=== PATIENT | male | born 1955 | race Caucasian/White ===

== ENCOUNTER → 2018-05-03 13:03 | Outpatient (CLI) | payer BC, SELFPAY ==
--- NOTE | 2018-05-03 13:07 | STE_ITS ---
Reason For Study: CAD/ASHD Stress Results Protocol: Stress Echocardiogram Maximum Predicted HR: 157 bpm Target HR: 133 bpm% Maximum Pr edicted HR: 103 % DurationHeart Rate Stage (mm:ss) (bpm) BPCom ment BASELINE 90 148/80 FAROOQ PROTOCOL- STAGE 1 3:00 13 1 158/82 FAROOQ PROTOCOL- STAGE 2 3:00 15 1 162/84 FAROOQ PROTOCOL- STAGE 3 1:05 16 2 170/94SL SOB, LEG FATIGUE RECOVERY 99 150/80 Stress Duration: 7:05 mm:ss Maximum Stress HR: 162 bpm Baseline Echocardiogram Findings The estimated ejection fraction is 65 %. Stress Echo Wall motion Data Resting WMIntermediate WMStress WM Resting Wall Motion Wall Motion Stress No regional wall motion No regional wall motion abnormalities noted. abnormalities noted. EKG Data The baseline ECG displays normal sinus rhythm. The patient exercised according to the regular Farooq protocol for a total duration of 7:05. The maximum heart rate attained was 162 beats per minute. This was 103% of maximum predicted heart rate. The patient exercised into stage 3 of the Farooq protocol. During stress, there were no ST or T wave changes noted to suggest ischemia. No clinical angina was noted. Interpretation Summary The estimated ejection fraction is 65 %. Normal, adequate, treadmill echocardiogram. Negative for ischemia by EKG and echocardiographic criteria. No anginal symptoms noted. Rare PVCs noted during exercise and into recovery. Average exercise capacity for age. Test terminated due to leg fatigue. Final LVEF is 75%. No complications. Ordering Physician: Praveen Escobar Referring Physician: Praveen Escobar Performed By: Vernell Infante, SAMIA, RVT
== END ==
PROVIDERS: Family Provider Internal Medicine; PCP Internal Medicine; Visit Provider Internal Medicine Cardiovascular Disease
DX: I25.10 Atherosclerotic heart disease of native coronary artery without angina pectoris (principal); Z95.1 Presence of aortocoronary bypass graft
CPT/HCPCS: 93017; 93350

== ENCOUNTER → 2018-05-04 13:49 | Outpatient (CLI) | payer BC, SELFPAY ==
--- NOTE | 2018-05-04 13:50 | ECHOD_ITS ---
Reason For Study: CAD/ASHD Procedure This was a 2D Doppler, Color Flow transthoracic echocardiogram. Exam performed in department. Left Ventricle Normal size and thickness. The estimated ejection fraction is 65 %. Stage 1 diastolic dysfunction. No regional wall motion abnormalities noted. Right Ventricle Normal size and thickness. Normal systolic function. Atria Normal left atrium. Normal right atrium. Normal atrial septum. Mitral Valve The mitral valve is structurally normal. No prolapse or stenosis seen. Mild mitral annular calcification extending into the posterior leaflet. Tricuspid Valve Normal tricuspid valve. Mild (1+) tricuspid valve insufficiency. Right ventricular systolic pressure estimated to be 32 mmHg. Aortic Valve Trisinus/trileaflet aortic valve. Normal aortic valve. Pulmonic Valve Normal pulmonic valve. Great Vessels Normal aortic root. Normal arch. Normal inferior vena cava. Inferior vena cava collapse with sniff. Pericardium/Pleural No pericardial effusion. MMode/2D Measurements & Calculations LVIDd: 4.9 cm IVSd: 1.2 cm Ao root diam: 3.1 cm LVIDs: 3.3 cm LVPWd: 1.2 cm LA dimension: 4.0 cm RVDd: 3.5 cm FS: 32.9 % LAV(MOD-bp): 48.5 ml LA A4 area: 15.2 cm2 RA A4 area: 17.5 cm2 LAV(MOD-bp) Indexed: 25.8 ml/m2 LAV(MOD-sp2): 57.1 ml LAV(MOD-sp4): 39.6 ml Doppler Measurements & Calculations MV E max lito: 73.9 cm/sec Lat Peak E' Lito: 8.8 cm/sec Med Peak E' Lito: 8.4 cm/sec MV A max lito: 98.0 cm/sec E/E' lat: 8.4 E/E' med: 8.8 MV E/A: 0.75 Ao V2 max: 137.2 cm/sec LV V1 max: 98.1 cm/sec PA V2 max: 116.9 cm/sec Ao max P.5 mmHg LV V1 max P.8 mmHg TR max lito: 245.9 cm/sec TR max P.3 mmHg Interpretation Summary The estimated ejection fraction is 65 %. Stage 1 diastolic dysfunction. Mild (1+) tricuspid valve insufficiency. Right ventricular systolic pressure estimated to be 32 mmHg. There is no comparison study available. Ordering Physician: Praveen Escobar Referring Physician: George Vázquez M.D. Performed By: Vernell Infante RDCS, RVT
== END ==
PROVIDERS: Family Provider Internal Medicine; PCP Internal Medicine; Visit Provider Internal Medicine Cardiovascular Disease
DX: I25.810 Atherosclerosis of coronary artery bypass graft(s) without angina pectoris (principal); I25.10 Atherosclerotic heart disease of native coronary artery without angina pectoris; Z95.5 Presence of coronary angioplasty implant and graft; Z95.1 Presence of aortocoronary bypass graft
CPT/HCPCS: 93306

== ENCOUNTER → 2018-12-24 07:06 | Outpatient (CLI) | payer BC, SELFPAY ==
[2018-12-24 09:05] LABS: AST(SGOT) 20 U/L (15-37); Alanine Aminotransfer ALT/SGPT 30 U/L (16-61); Albumin, Serum 3.6 g/dL (3.2-5.0); Alkaline Phosphatase 85 U/L (45-117); Bilirubin, Direct 0.17 mg/dL (0.00-0.30); Cholesterol 152 mg/dL (200); Globulin 3.8 g/dL (2.2-4.2); High Density Lipoprotein 43 mg/dL; Protein, Total 7.4 g/dL (6.4-8.2); Triglycerides 136 mg/dL; Very Low Density Lipoprotein 27 mg/dL (5-40)
== END ==
PROVIDERS: Family Provider Internal Medicine; PCP Internal Medicine; Referring Provider Internal Medicine Cardiovascular Disease; Visit Provider Internal Medicine Cardiovascular Disease
DX: I25.810 Atherosclerosis of coronary artery bypass graft(s) without angina pectoris (principal); Z95.1 Presence of aortocoronary bypass graft; Z95.5 Presence of coronary angioplasty implant and graft
CPT/HCPCS: 36415; 80061; 80076

== ENCOUNTER → 2019-03-05 | Outpatient (CLI) | payer BC, SELFPAY ==
[2019-03-05 09:00] LABS: AST(SGOT) 31 U/L (15-37); Alanine Aminotransfer ALT/SGPT 36 U/L (16-61); Albumin, Serum 4.1 g/dL (3.2-5.0); Alkaline Phosphatase 70 U/L (45-117); Bilirubin, Direct 0.12 mg/dL (0.00-0.30); Cholesterol 140 mg/dL (200); Globulin 3.2 g/dL (2.2-4.2); High Density Lipoprotein 45 mg/dL; Protein, Total 7.3 g/dL (6.4-8.2); Triglycerides 175 mg/dL; Very Low Density Lipoprotein 35 mg/dL (5-40)
== END | disposition home or self-care (01) ==
PROVIDERS: Family Provider Internal Medicine; PCP Internal Medicine; Referring Provider Nurse Practitioner Family; Visit Provider Nurse Practitioner Family
DX: E78.2 Mixed hyperlipidemia (principal); I25.10 Atherosclerotic heart disease of native coronary artery without angina pectoris
CPT/HCPCS: 36415; 80061; 80076

== ENCOUNTER → 2019-06-14 | Outpatient (CLI) | payer MEDICARE, OTHER, SELFPAY ==
[2019-03-07 15:43] VITALS: BMI 27.1
--- NOTE | 2019-06-14 12:37 | STE_ITS ---
Reason For Study: DYSPNEA/SOB Stress Results Protocol: Farooq Protocol Maximum Predicted HR: 156 bpm Target HR: 133 bpm % Maximum Predicted HR: 103 % DurationHeart Rate Stage (mm:ss) (bpm) BP Comment BASELINE 74 138/82 STAGE 1 3:00 109 160/72 STAGE 2 3:00 131 172/84 STAGE 3 1:30 160 / INCREASED SOB WITH NO CHEST PAIN Stress Duration: 7:30 mm:ss Maximum Stress HR: 160 bpm Baseline Echocardiogram Findings The estimated ejection fraction is 65 %. Stress Echo Wall motion Data Resting WM Intermediate WM Stress WM Resting Wall Motion Wall Motion Stress No regional wall motion No regional wall motion abnormalities noted. abnormalities noted. EKG Data The baseline ECG displays normal sinus rhythm. The patient exercised according to the regular Farooq protocol for a total duration of 7:30. The maximum heart rate attained was 160 beats per minute. This was 102% of maximum predicted heart rate. The patient exercised into stage 3 of the Farooq protocol. During stress, there were no ST or T wave changes noted to suggest ischemia. No clinical angina was noted. Interpretation Summary The estimated ejection fraction is 65 %. Normal, adequate, treadmill echocardiogram. Negative for ischemia by EKG and echocardiographic criteria. No anginal symptoms noted. Rare PVCs, ventricular couplets, and rate dependent right bundle branch block at peak exercise and into recovery. Average exercise capacity for age. Final LVEF is 75%. Test terminated due to the attainment target heart rate and dyspnea. No complications. Ordering Physician: Praveen Escobar Referring Physician: Praveen Escobar Performed By: Sharon Saeed, SAMIA, RVT
== END | disposition home or self-care (01) ==
LOC: CVS 12:36
PROVIDERS: Family Provider Internal Medicine; PCP Internal Medicine; Referring Provider Internal Medicine Cardiovascular Disease; Visit Provider Internal Medicine Cardiovascular Disease
DX: I25.810 Atherosclerosis of coronary artery bypass graft(s) without angina pectoris (principal); I10 Essential (primary) hypertension; Z95.1 Presence of aortocoronary bypass graft; Z95.5 Presence of coronary angioplasty implant and graft; F17.200 Nicotine dependence, unspecified, uncomplicated
CPT/HCPCS: 93017; 93350

== ENCOUNTER → 2020-06-10 10:15 | Outpatient (CLI) | payer MEDICARE, OTHER, SELFPAY ==
[2020-03-30 08:50] VITALS: BMI 27.3
--- NOTE | 2020-06-10 10:16 | STEWCON_ITS ---
Reason For Study: Dyspnea; CAD Stress Results Protocol: Dobutamine Stress Echo With Definity Maximum Predicted HR: 155 bpm Target HR: 132 bpm % Maximum Predicted HR: 85 % DurationHeart Rate Stage (mm:ss) (bpm) BP Comment Baseline 101 146/92No Chest Pain; 5 ML Diluted Definity DSE 10 MCG 4:51 120 139/85No Chest Pain DSE 20 MCG 2:39 131 136/80No Chest Pain Recovery 105 130/94No Chest Pain Stress Duration: 7:30 mm:ss Maximum Stress HR: 131 bpm METS: 1 Baseline Echocardiogram Findings The estimated ejection fraction is 65 %. Stress Echo Wall motion Data Resting WM Intermediate WM Stress WM Resting Wall Motion Wall Motion Stress No regional wall motion No regional wall motion abnormalities noted. abnormalities noted. EKG Data The baseline ECG displays normal sinus rhythm. The patient was titrated from 10 mcg to a maximum of 20 mcg of dobutamine during the stress. The maximum heart rate attained was 7:30 beats per minute. This was 97% of maximum predicted heart rate. During dobutamine infusion, there were no ST or T wave changes noted to suggest ischemia. No clinical angina was noted. Interpretation Summary The estimated ejection fraction is 65 %. Normal, adequate, dobutamine echocardiogram. Negative for ischemia by EKG and echocardiographic criteria. No anginal symptoms noted. Rare PVC, ventricular couplets and a ventricular triplet during infusion which is a nonspecific finding. Test terminated due to the attainment of target heart rate. Final LVEF is 75%. Appropriate blood pressure response to dobutamine. Decrease sensitivity due to poor echo windows requiring Definity agent. Patient tolerated procedure well. The study was technically difficult. Contrast injection was performed. Ordering Physician: Praveen Escobar Referring Physician: George Vázquez Performed By: Jennifer Mg, RDCS, RVT
== END ==
PROVIDERS: PCP Internal Medicine; Referring Provider Internal Medicine Cardiovascular Disease; Visit Provider Internal Medicine Cardiovascular Disease
DX: I25.10 Atherosclerotic heart disease of native coronary artery without angina pectoris (principal); J44.9 Chronic obstructive pulmonary disease, unspecified; R06.00 Dyspnea, unspecified; Z95.1 Presence of aortocoronary bypass graft; Z95.5 Presence of coronary angioplasty implant and graft
CPT/HCPCS: 93017; 93350; J7040; Q9957; A4216; C8928

== ENCOUNTER → 2020-07-16 20:29 | Outpatient (CLI) | payer MEDICARE, OTHER, SELFPAY ==
[2020-07-07 10:24] VITALS: BMI 27.7
== END ==
PROVIDERS: PCP Internal Medicine; Referring Provider Internal Medicine Critical Care Medicine; Visit Provider Internal Medicine Critical Care Medicine
DX: G47.10 Hypersomnia, unspecified (principal)
CPT/HCPCS: 95810

== ENCOUNTER → 2020-08-13 10:33 | Outpatient (CLI) | payer MEDICARE, OTHER, SELFPAY ==
[2020-07-07 10:24] VITALS: BMI 27.7
--- NOTE | 2020-08-13 15:46 | PFTCOMP ---
COMPLETE PULMONARY FUNCTION TEST INTERPRETATION Brief HPI: Patient is a 65 year old male, currently under the care of myself, who presents to [facility] for complete pulmonary function tests secondary to diagnosis of COPD. Respiratory therapist reports good effort and reproducible results. Interpretation: Forced expiration spirometry shows a severe large airways obstructive ventilatory defect with an FEV1 of 41% predicted. There is a significant bronchodilator response in FVC by strict ATS criteria. Spirograms are of good quality and plateau slowly, indicating slowly emptying areas of the lungs. The respiratory flow volume loop shows decreased expiratory flow rates at all lung volumes consistent with airway obstruction. Lung volumes by body plethysmography show a normal total lung capacity at 6.59 L, 113% predicted. FRC and RV are elevated out of proportion. Lung volume measurements are consistent with hyperinflation and air-trapping. Diffusion capacity by carbon monoxide is normal at 77% predicted. The airway resistance is elevated. No previous pulmonary function tests were available for review. Impression: Partially reversible severe large airways obstructive ventilatory defect resulting in air trapping with hyperinflation
== END ==
PROVIDERS: PCP Internal Medicine; Referring Provider Internal Medicine Critical Care Medicine; Visit Provider Internal Medicine Critical Care Medicine
DX: J44.9 Chronic obstructive pulmonary disease, unspecified (principal)
CPT/HCPCS: 94060; 94726; 94729

== ENCOUNTER → 2020-08-17 12:17 | Outpatient (CLI) | payer MEDICARE, OTHER, SELFPAY ==
[2020-07-07 10:24] VITALS: BMI 27.7
[2020-08-17 13:37] VITALS: PULSE 117; PULSE 78; PULSE 89; PULSE 91; PULSE 93; PULSE 95; PULSE 97; O2SAT 88; O2SAT 89; O2SAT 92; O2SAT 93; O2SAT 94
--- NOTE | 2020-08-17 13:41 | CPS ---
Patient started test on RA but at the 2 min lakeisha patient's SpO2 was 88% on RA. Patient was placed on 2L NC for the rest of the testing. Patient is prescribed 2L at night but does not wear it. Patient did not want to get setup on home O2 until he speaks with . notified of this. Vidhya LUNA
--- NOTE | 2020-08-18 10:29 | PCM.PSN.6M ---
PSN 6 Minute Walk Test - 6 Minute Walk Test 6 Minute Walk Test: 6 Minute Walk Test PSN:6-Minute Walk Test Start: 08/17/20 13:37 Freq: Status: Active Protocol: RESP.6MINW Document 08/17/20 13:37 JLA (Rec: 08/17/20 13:43 JLA [id number]) 6 Minute Walk Test Date Performed 08/17/20 Time Performed 12:30 Height 5 ft 7 in Weight: 170 lb Weight in Pounds 170.[address]: Farooq Hall Assistive device used: None Pre-test Oxygen Delivery Method Room Air Pulse Ox (%) 92 Pulse Rate (60-100 beats/min) 78 Dyspnea Emily Scale (0-10) 0 Exertion Emily Scale (6-20) 6 1st minute Oxygen Delivery Method Room Air Pulse Ox (%) 89 Pulse Rate (60-100 beats/min) 117 H 2nd minute Oxygen Delivery Method Room Air Pulse Ox (%) 88 Pulse Rate (60-100 beats/min) 95 Dyspnea Emily Scale (0-10) 0 Exertion Emily Scale (6-20) 11 3rd minute Oxygen Flow Rate (L/min) (L/min) 2 Oxygen Delivery Method Nasal Cannula Pulse Ox (%) 92 Pulse Rate (60-100 beats/min) 91 4th minute Oxygen Flow Rate (L/min) (L/min) 2 Oxygen Delivery Method Nasal Cannula Pulse Ox (%) 92 Pulse Rate (60-100 beats/min) 93 5th minute Oxygen Flow Rate (L/min) (L/min) 2 Oxygen Delivery Method Nasal Cannula Pulse Ox (%) 93 Pulse Rate (60-100 beats/min) 97 6th minute Oxygen Flow Rate (L/min) (L/min) 2 Oxygen Delivery Method Nasal Cannula Pulse Ox (%) 92 Pulse Rate (60-100 beats/min) 95 Dyspnea Emily Scale (0-10) 0 Exertion Emily Scale (6-20) 11 Post-test Oxygen Flow Rate (L/min) (L/min) 2 Oxygen Delivery Method Nasal Cannula Pulse Ox (%) 94 Pulse Rate (60-100 beats/min) 89 Full Laps Walked 13 Partial Lap, Number of Tiles Walked 0 Total Distance Walked (ft) 767 08/17/20 13:41 Cardiopulmonary Services by Mayra Leal Patient started test on RA but at the 2 min lakeisha patient's SpO2 was 88% on RA. Patient was placed on 2L NC for the rest of the testing. Patient is prescribed 2L at night but does not wear it. Patient did not want to get setup on home O2 until he speaks with . notified of this. Vidhya LUNA Initialized on 08/17/20 13:41 - END OF NOTE - Interpretation Interpretation: The patient ambulated 767 feet over the course of 6 minutes beginning on room air without assistive devices or breaks. Pretesting oxygen saturation was noted to be 92% on room air. With ambulation, the estephanie oxygen saturation was 88%. 2 L of oxygen was applied, and the patient was able to complete the remainder of the test while maintaining appropriate oxygen saturations. It was noted that the patient refused to be set up with supplemental home oxygen until he was seen in follow-up by Dr. Hall. - Recommendations Recommendations: 2 L/min of supplemental oxygen should be utilized with exertion.
== END ==
PROVIDERS: PCP Internal Medicine; Referring Provider Internal Medicine Critical Care Medicine; Visit Provider Internal Medicine Critical Care Medicine
DX: J44.9 Chronic obstructive pulmonary disease, unspecified (principal)
CPT/HCPCS: 94618

== ENCOUNTER → 2020-08-20 20:10 | Outpatient (CLI) | payer MEDICARE, OTHER, SELFPAY ==
[2020-07-07 10:24] VITALS: BMI 27.7
== END ==
PROVIDERS: PCP Internal Medicine; Visit Provider Nurse Practitioner Acute Care
DX: G47.33 Obstructive sleep apnea (adult) (pediatric) (principal)
CPT/HCPCS: 95810

== ENCOUNTER → 2020-10-15 07:12 | Outpatient (CLI) | payer MEDICARE, OTHER, SELFPAY ==
[2020-10-05 15:25] VITALS: BMI 28.6
[2020-10-15 08:10] LABS: Absolute Lymphocyte Count 1.39 X10^3/uL (0.83-4.51); Absolute Neutrophil Count 4.1 X10^3/uL (2.0-7.7); Basophil# 0.04 X10^3/uL; Basophil% 0.6 % (0-1); Eosinophil# 0.13 X10^3/uL; Eosinophils% 2.1 % (0-5); Hematocrit 44.8 % (40-54); Hemoglobin 15.3 g/dL (13.0-16.5); Lymphocyte # 1.39 X10^3/ul (4.0); Lymphocyte % 22.1 % (19-41); Mean Corp Hgb Conc 34.2 g/dL (32-36); Mean Corpuscular Hgb 31.1 pg (27.0-32.0); Mean Corpuscular Volume 91.1 fL (80-94); Mean Platelet Vol. 9.5 fl (6.2-12.0); Monocyte# 0.63 X10^3/uL; NRBC Flagged by Analyzer 0 % (0-5); Platelet Count 234 K/mm3 (150-450); RBC Distribution Width CV 12.8 % (11.6-14.6); Red Blood Count 4.92 M/mm3 (4.6-6.2); White Blood Count 6.3 K/mm3 (4.4-11.0)
[2020-10-15 08:36] LABS: AST(SGOT) 18 U/L (15-37); Alanine Aminotransfer ALT/SGPT 32 U/L (16-61); Albumin, Serum 3.8 g/dL (3.2-5.0); Alkaline Phosphatase 69 U/L (45-117); Anion Gap 5 (5-15); BUN 18 mg/dL (7-18); BUN/Creat Ratio 15.3 RATIO (10-20); Bilirubin, Direct 0.18 mg/dL (0.00-0.30); Calcium,Total 9.5 mg/dL (8.5-10.1); Chloride 99 mmol/L (98-107); Cholesterol 139 mg/dL (200); Creatinine, Serum 1.18 mg/dL (0.70-1.30); EST Glomerular Filtration Rate 66 mL/min (>60); Est Glom Filt Rate - Afr Amer 79 mL/min (>60); Globulin 3.4 g/dL (2.2-4.2); Glucose 100 mg/dL (74-106); High Density Lipoprotein 63 mg/dL; Potassium 3.3 mmol/L (3.5-5.1); Protein, Total 7.2 g/dL (6.4-8.2); Sodium Level 136 mmol/L (136-145); Triglycerides 96 mg/dL; Very Low Density Lipoprotein 19 mg/dL (5-40)
[2020-10-18 03:06] LABS: Alternaria alternata <0.10 kU/L (Class 0); Bermuda Grass <0.10 kU/L (Class 0); Bluegrass, Kentucky <0.10 kU/L (Class 0); Cat Hair/Dander, Standard <0.10 kU/L (Class 0); D farinae Mite <0.10 kU/L (Class 0); D pteronyssinus <0.10 kU/L (Class 0); Dog Epithelia <0.10 kU/L (Class 0); Elm, American White <0.10 kU/L (Class 0); Mouse Urine <0.10 kU/L (Class 0); Oak, White <0.10 kU/L (Class 0); Plantain, English <0.10 kU/L (Class 0); Ragweed, Short/Common <0.10 kU/L (Class 0)
[2020-10-18 14:07] LABS: Aspirgillus flavus Negative (Neg:<1:1); Aspirgillus fumigatus Negative (Neg:<1:1); Aspirgillus niger Negative (Neg:<1:1)
[2020-10-19 20:58] LABS: ANTINUCLEAR ANTIBODIES DIRECT Negative (Negative)
[2020-10-19 20:59] LABS: Immunoglobulin E 20 IU/mL (6-495)
== END ==
PROVIDERS: Nurse Practitioner Acute Care; PCP Internal Medicine; Referring Provider Nurse Practitioner Family; Visit Provider Nurse Practitioner Family
DX: J45.909 Unspecified asthma, uncomplicated (principal); G47.33 Obstructive sleep apnea (adult) (pediatric); I25.10 Atherosclerotic heart disease of native coronary artery without angina pectoris; Z95.1 Presence of aortocoronary bypass graft; I10 Essential (primary) hypertension; E55.9 Vitamin D deficiency, unspecified; Z95.5 Presence of coronary angioplasty implant and graft
CPT/HCPCS: 36415; 80048; 80061; 80076; 82306; 82785; 85025; 86003; 86038; 86225; 86235; 86606

== ENCOUNTER 2021-01-08 12:30 | Outpatient (RCR) | payer MEDICARE, OTHER, SELFPAY ==
[2020-07-07 10:24] VITALS: BMI 27.7
--- NOTE | 2020-07-20 14:38 | HP.PTEVAL_ITS ---
Patient's Visit Information RAISA SMILEY is a 65 year old M referred to Physical Therapy by AARON CruzM with a diagnosis of B achilles tendonitis. Date of Evaluation: 07/20/20 Physical Therapist: Lee Freeman, PT, ATC - Visit Plan Frequency: 2-3x /Week Duration: 4 Weeks Plan: B achilles DTR, stick rollout, US, and strengthening. - Subjective Pt reports he was given Levoquin for an upper respiratory infection when he be abi to experience severe pain in B achilles tendons. Pt reports he stopped taking the meds after 4 days, but the pain has remained the same. Pt notes he is able to walk now but must take small steps to avoid pain. Pt notes he also is an avid golfer, but is unable to at this time secondary to pain. No tingling or numbness at this time. No sleep difficulty secondary to pain. Pt is still working at this time. Pt has 24 stairs to get into his aprtment, and has difficulty with that activity. 0/10 pain at rest, 4/10 pain with walking. - Pain B achilles Pain Intensity (Out of 10): 0 Pain Intensity Range: 4 - Objective Neuro: B LE sensation is WNL to light touch. Palpation: Pt is very sore alsong the distribution of achilles tendon. No obvious deformity present at this time. MMT: B PF grossly 4-/5. All other measurements 5/5. ROM: R ankle DF ROM= 10, L ankle DF= 7 degrees - Goals Goal 1:: Decrease B achilles pain x 50% to aid with ambulation Goal Time Frame: 2-4 Weeks Goal 2:: Increase B ankle DF ROM x 5-10 degrees to aid with decreasing pain Goal Time Frame: 2-4 Weeks Goal 3:: Increase B ankle PF strength x 1 grade to aid with stair negotiation Goal Time Frame: 2-4 Weeks Goal 4:: I with HEP Goal Time Frame: 2-4 Weeks - Rehabilitation Potential Physical Therapy Diagnosis: B achilles pain and limited ROM secondary to B achilles tendonitis Rehabilitation Potential: Good - Anticipated Interventions Patient/Client Instruction: Educate patient on: Condition, Plan of Care For the Purpose of:: To improve self management Therapeutic Exercise to Include: Strength training, Endurance training, Flexibilty training For the Purpose of:: To decrease pain, To increase ROM, To improve muscle performance and motor function Ultrasound (thermal/non thermal): Yes For the Purpose of:: To decrease pain Thank you for the opportunity to evaluate your patient. For Medicare and Medicare HMO plans, please review the plan of care and approve it. It will need to be FAXED BACK to us at [phone] for Medicare purposes. For Medicare only, by signing this I certify the plan of care. Please let me know if there are questions or concerns regarding this plan of care. Physician Signature: Date:
--- NOTE | 2020-10-15 16:04 | HP.PTREVAL ---
Dr. Dayton Zarate, DPM, It has been my pleasure to treat RAISA SMILEY over the last 23 visits for B achilles tendonitis. Please see the progress note below for an update on the physical therapy plan of care! Subjective: Mild pain today Objective/Function: ankle ROM: L ankle DF 17 degrees, R ankle DF 19 degrees. B ankle PF MMT: 5/5 throughout. I with HEP Plan Plan: recheck or discharge in one month Goals Goal 1:: Decrease B achilles pain x 50% to aid with ambulation Goal Time Frame: 2-4 Weeks Goal Progress: Goal Met Goal 2:: Increase B ankle DF ROM x 5-10 degrees to aid with decreasing pain Goal Time Frame: 2-4 Weeks Goal Progress: Goal Met Goal 3:: Increase B ankle PF strength x 1 grade to aid with stair negotiation Goal Time Frame: 2-4 Weeks Goal Progress: Goal Met Goal 4:: I with HEP Goal Time Frame: 2-4 Weeks Goal Progress: Goal Met Anticipated Interventions Patient/Client Instruction: Educate patient on: Condition, Plan of Care For the Purpose of:: To improve self management Therapeutic Exercise to Include: Strength training, Endurance training, Flexibilty training For the Purpose of:: To decrease pain, To increase ROM, To improve muscle performance and motor function Ultrasound (thermal/non thermal): Yes For the Purpose of:: To decrease pain Please do not hesitate to contact me at [phone] by phone or if you have questions or concerns regarding this new plan of care! Sincerely, Lee Freeman, PT, ATC
== END 2021-01-08 19:00 | disposition home or self-care (01) ==
LOC: PT 12:30
PROVIDERS: PCP Internal Medicine; Referring Provider Podiatrist Foot & Ankle Surgery; Visit Provider Podiatrist Foot & Ankle Surgery
DX: M76.61 Achilles tendinitis, right leg (principal); M76.62 Achilles tendinitis, left leg
CPT/HCPCS: 97035; 97110; 97140; 97161

== ENCOUNTER → 2021-02-25 13:23 | Outpatient (CLI) | payer MEDICARE, OTHER, SELFPAY ==
[2021-02-11 13:06] VITALS: BMI 29.4
--- NOTE | 2021-02-25 13:25 | CT_ITS ---
STUDY: CT CHEST WITHOUT CONTRAST- LOW DOSE SCREENING PROTOCOL REASON FOR EXAM: Male, 65 years old. Current smoker. 30 pack per year history. No current symptoms of lung cancer or pulmonary infection. Shared decision-making with referring PCP documented in patient''s record. RADIATION DOSAGE (If Supplied By Facility): CTDIvol = ( 3.02 ) mGy, DLP = ( 106.46 ) mGycm TECHNIQUE: Low dose screening CT examination performed from the base of the neck to the upper abdomen. Sagittal and coronal reformatted images performed. Sagittal and coronal MIP images provided. The measurements provided are average, rounded measurements per ACR guidelines. COMPARISON: None. FINDINGS: Status post median sternotomy. Mild emphysematous changes. Linear scar in the superior segment the left lower lobe. 1 cm noncalcified nodule subpleural left lower lobe the lungs on image 202 and correlation with PET CT scan is recommended. Follow-up CT is recommended in 6 months document stability. Right-sided pleural calcifications likely related to prior hemothorax. Normal heart and pericardium. There are calcifications of the coronary arteries. Normal mediastinum. Normal hilar regions. Normal unenhanced pulmonary arteries. There is atherosclerotic calcification of the aortic arch with tortuosity and elongation of the aortic arch and descending thoracic aorta. Normal osseous structures. There is no demonstrated abnormality of the visualized upper abdomen. CT/Low Dose CT Lung Screening IMPRESSION: 1. 1 cm noncalcified left lower lobe nodule and correlation with PET CT scan is recommended. Follow-up CT the chest is recommended in 6 months document stability.. 2. Incidental findings include mild emphysema and primary coronary artery bypass grafting. ASSESSMENT CATEGORY: LungRADS 4A - Suspicious. Recommend follow up LDCT in 3 months. PET/CT may be used if there is an 8 mm or larger solid component. Electronically Signed: Efren Meredith MD at 8:33 EDT Tel , Service support ,
== END ==
PROVIDERS: PCP Internal Medicine; Referring Provider Nurse Practitioner Acute Care; Visit Provider Nurse Practitioner Acute Care
DX: F17.210 Nicotine dependence, cigarettes, uncomplicated (principal)
CPT/HCPCS: 71271

== ENCOUNTER 2021-05-17 01:54 | Emergency (ER) | payer MEDICARE, OTHER, SELFPAY ==
[2021-05-12 08:07] VITALS: BMI 29.0
[2021-05-17 01:55] VITALS: BP 142/88; PULSE 66; RESP 18; TEMP 36.3; O2SAT 95; BMI 29.3
--- NOTE | 2021-05-17 02:14 | CT_ITS ---
STUDY: CT ABDOMEN AND PELVIS WITH CONTRAST REASON FOR EXAM: Male, 65 years old. Lower abdominal pain. TECHNIQUE: Transaxial images were obtained from the dome of the diaphragm to the symphysis pubis without oral contrast. IV 100mL Isovue-300 was administered. Sagittal and coronal images were reconstructed. Individualized dose optimization techniques were used for this CT. COMPARISON: 08/12/2012 CT abdomen and pelvis. FINDINGS: Partially visualized lower chest: Mild subsegmental atelectasis and scarring lung bases. Calcified pleural plaques on the right posteriorly. CABG partially visible. Liver: No concerning lesions. Gallbladder and biliary tree: Small gallstone rests in the gallbladder. No adjacent inflammation. No biliary ductal dilation. Pancreas: No pancreatic lesions or inflammation. Spleen: Normal size, no splenic lesions. Adrenal glands: No concerning masses. Kidneys and ureters: 0.5 cm stone distal right ureter, located 1 cm proximal from the urinary bladder, with mild more proximal hydronephrosis and hydroureter. No residual right-sided stones. Punctate nonobstructing stone upper pole left kidney. Small bilateral renal cysts. Bowel: Appendix not identified. No evidence of appendicitis. No obstruction or inflammation of the bowel. Sigmoid colon diverticulosis, no diverticulitis. Distal colonic anastomosis in the upper pelvis. Urinary bladder: Nondistended. Mildly thick-walled. Reproductive:Normal size prostate. Vascular: No abdominal aortic aneurysm. Moderate atherosclerosis of the abdominal aorta and its branches. Retroperitoneal and peritoneal spaces: No ascites or free air. No retroperitoneal lesions. Osseous: No acute osseous abnormality. Abdominal and pelvic wall: No concerning findings. Any findings described in the findings sections and not included in the impression are incidental and do not require imaging follow-up. CT/Abdomen/Pelvis W IV Cont ONLY IMPRESSION: 0.5 cm distal right ureteral stone with mild obstruction. Punctate nonobstructing left renal stone. Cholelithiasis, no evidence cholecystitis. Electronically Signed: Gordon Castillo MD at 5:00 EDT Tel , Service support ,
--- NOTE | 2021-05-17 02:15 | ED.VIS.GI ---
HPI HPI - GI History of Present Illness Chief Complaint: Abd Pain Detail of Chief Complaint: Lower abdominal pain with a history of diverticulitis. Informant: patient Abdominal Pain/Flank Pain Onset: Days Context: Gradual Onset Timing: Continuous Quality: Aching and Cramping Current Severity: Mild Maximum Severity: Mild Nausea/Vomiting/Emesis GI Symptom: Negative for Nausea and Vomiting Diarrhea/Melena/Hematochezia GI Symptom: Negative for Diarrhea, Melena and Hematochezia Associated Symptoms Associated Symptoms: Negative for Dysuria, Frequency and Hematuria Narrative Narrative: 65-year-old male history of prior diverticulitis for which she had a partial colectomy. Is also had a CABG and history of COPD. He is on no blood thinners. Patient states he has had lower abdominal pain for 2 to 3 days. Had some constipation took milk of magnesia that improved the constipation. He denies any dysuria. Denies any fever or chills. Has had a history of diverticulitis and says this feels the same. Denies any back pain. Prior similar symptoms: Yes Recent Illness/Hospitalization: No PFSH PFS Medical History Atherosclerosis of coronary artery bypass graft without angina pectoris Atherosclerosis of coronary artery of [place] heart without angina pectoris Chronic bronchitis COPD (chronic obstructive pulmonary disease) DDD (degenerative disc disease), lumbar History of diverticulitis Hyperlipidemia Hypertension Nicotine dependence Osteoarthritis Home Medications albuterol sulfate 90 mcg/actuation aerosol inhaler 2 puff INHALATION Q6H PRN 04/23/18 [History Last Taken Unknown] aspirin 81 mg tablet,delayed release 81 mg PO QDAY 04/23/18 [History Last Taken Unknown] losartan 100 mg tablet 100 mg PO QDAY #90 tab 09/30/19 [Rx Last Taken Unknown] metoprolol tartrate 50 mg tablet 50 mg PO BID #180 tab 09/30/19 [Rx Last Taken Unknown] ascorbic acid (vitamin C) 1,000 mg tablet 1 g PO Q6H 07/07/20 [History Last Taken Unknown] potassium chloride 8 mEq capsule,extended release 8 meq PO DAILY 07/07/20 [History Last Taken Unknown] rosuvastatin 40 mg tablet 40 mg PO DAILY #90 tab 10/05/20 [Rx Last Taken Unknown] budesonide-formoterol HFA 160 mcg-4.5 mcg/actuation aerosol inhaler 2 puff INHALATION BID #3 device 10/27/20 [Rx Last Taken Unknown] tiotropium bromide 2.5 mcg/actuation mist for inhalation 2 puff INHALATION QDAY #3 device 10/27/20 [Rx Last Taken Unknown] omeprazole 20 mg capsule,delayed release 20 mg PO BID 05/11/21 [History Last Taken Unknown] hydrocodone-acetaminophen 1 tab PO Q4H PRN 3 Days #10 tab 05/17/21 [Rx Last Taken Unknown] Allergy/AdvReac Type Severity Reaction Status Date / Time levofloxacin [From Levaquin] AdvReac Severe tendonitis Verified 05/17/21 01:57 Family History Father CAD (coronary artery disease) Surgical History H/O coronary artery bypass surgery (10/14/96) History of appendectomy History of colectomy History of coronary artery stent placement History of left knee replacement History of partial colectomy History of tonsillectomy S/p bilateral carpal tunnel release Social History Smoking Status: Current every day smoker tobacco type: cigarettes alcohol intake: current details: social substance use type: does not use caffeine: Yes what type of physical activity do you participate in: none seatbelt use: always do you feel safe at home: Yes ROS ROS ED ROS Narrative Abdominal pain. Constipation. Review of Systems ROS Unobtainable: Denies due to encephalopathy Constitutional Constitutional ED: Denies chills or fever(s) ENT ENT ED: Denies ear pain or sore throat Cardiovascular Cardiovascular: Denies chest pain Respiratory/Chest Respiratory/Chest: Denies cough or dyspnea Gastrointestinal Gastrointestinal: Reports abdominal pain and constipation; Denies diarrhea, melena, nausea or vomiting Genitourinary Genitourinary ED: Denies dysuria or hematuria Musculoskeletal Musculoskeletal: Denies myalgias Integumentary Denies rash Neurologic Neurologic: Denies headache(s) Psychiatric Psychiatric: Denies depression Endocrine Endocrinology: Denies polyuria Hematologic/Lymphatic Hematologic/Lymphatic: Denies easy bruising Allergic/Immunologic Allergic/Immunologic ED: Denies urticaria EXAM Physical Exam Narrative Exam Narrative: Or male no acute distress vital signs stable afebrile. Lungs are clear. Heart regular rhythm. Abdomen soft diffusely tender lower quadrants. No hernia or mass. No signs of obstruction. No pulsatile mass. Upper quadrants are unremarkable. He does have bowel sounds. Back and extremities are unremarkable. Neurologically is awake and alert. Const Vital Signs: 05/17/21 01:55 05/17/21 04:45 05/17/21 04:53 Temperature 97.4 F L Temperature Source Temporal Pulse Rate 66 70 Respiratory Rate 18 16 16 Blood Pressure 142/88 H 138/80 H Blood Pressure Mean 106 99 Pulse Ox 95 88 Oxygen Delivery Method Room Air Room Air Oxygen Flow Rate (L/min) 05/17/21 04:54 Temperature Temperature Source Pulse Rate Respiratory Rate 16 Blood Pressure Blood Pressure Mean Pulse Ox 96 Oxygen Delivery Method Nasal Cannula Oxygen Flow Rate (L/min) 2 Positive well nourished and well developed General Appearance ED: well developed and NAD HEENT Reports dry mucous membranes normocephalic and atraumatic; Negative for trauma or tenderness Mouth ED: Yes dry mucous membranes Mouth: dry mucous membranes Eyes PERRL and EOMs intact bilaterally Neck no lymphadenopathy, supple and no JVD General: Negative for tenderness Resp normal respiratory effort and clear to auscultation bilaterally Auscultation: Negative for rales, rhonchi or wheezes Cardio regular rate, regular rhythm, S1 normal heart sound, S2 normal heart sound and no murmurs GI non-distended and no masses; Negative for non-tender GI Narrative: Bilateral lower quadrants more so on the left. Auscultation: normoactive bowel sounds Palpation: soft and tender; Negative for guarding, rigid or rebound tenderness present Back/Spine no CVA tenderness Extremity full ROM General Extremety ED: Negative for edema or tenderness General Extremity: Negative for edema Neuro CN's II-XII intact bilaterally and moves all extremities Sensorium / Orientation: alert, oriented to person, oriented to place, oriented to time and orientation impaired Psych mental status grossly normal Skin Lesions: no lesions Rashes: no rashes MDM MDM MDM Narrative Medical decision making narrative: 65 yo male with abdominal pain with a history of diverticulitis CAT scan labs are pending. Treated with morphine and Zofran for pain. IV fluids. Repeat exam patient is doing well at 5:30 AM. Abdomen is benign. He 9 went over his test results. Pain secondary to an acute right distal ureteral 5 mm kidney stone. He will be discharged home. Lab Data Attestation: I reviewed the patient's lab results. Lab results narrative: White count normal at 8. Hemoglobin 14. Electrolytes unremarkable gap of 4. Creatinine 1. Urinalysis shows red cells but no signs of infection. Consistent with the finding on the CAT scan of the kidney stone. No bacteria. And no nitrates. CAT scan shows a distal right ureteral calculi 5mm which could be consistent for his pain. Also incidental finding of gallstones. I discussed all the CAT scan findings with the patient. Labs: Laboratory Results - last 24 hr 05/17/21 05/17/21 05/17/21 02:00 02:00 04:48 WBC 8.1 RBC 4.65 Hgb 14.3 Hct 43.3 MCV 93.1 MCH 30.8 MCHC 33.0 RDW Std Deviation 46.5 H RDW Coeff of Lisa 13.5 Plt Count 245 MPV 9.7 Immature Gran % (Auto) 0.400 Neut % (Auto) 51.2 Lymph % (Auto) 36.0 [place] % (Auto) 8.8 Eos % (Auto) 2.7 Baso % (Auto) 0.9 Absolute Neuts (auto) 4.1 Absolute Lymphs (auto) 2.90 Nucleated RBC % 0 Sodium 141 Potassium 3.7 Chloride 102 Carbon Dioxide 35.0 H Anion Gap 4 L BUN 18 Creatinine 1.17 Estim Creat Clear Calc 58.07 Est GFR (MDRD) Af Amer 80 Est GFR (MDRD) Non-Af 66 BUN/Creatinine Ratio 15.4 Glucose 98 Calcium 9.3 Urine Color April Urine Clarity Sl. Cloudy Urine pH 5.0 Ur Specific [place] 1.015 Urine Protein 30 H Urine Glucose (UA) Normal Urine Ketones Negative Urine Occult Blood 250 H Urine Nitrite Negative Urine Bilirubin Negative Urine Urobilinogen Normal Ur Leukocyte Esterase 25 H Urine RBC 10-25 SEEN Urine WBC 0-5 SEEN Ur Squamous Epith Cells 0 SEEN Urine Bacteria 0 SEEN Urine Mucus 0 SEEN Radiography Diagnostic Testing: Radiology Impression Abdomen/Pelvis CT 05/17/21 02:14 IMPRESSION: 0.5 cm distal right ureteral stone with mild obstruction. Punctate nonobstructing left renal stone. Cholelithiasis, no evidence cholecystitis. Electronically Signed: Gordon Castillo MD at 5:00 EDT Tel , Service support , Discharge Plan Triage Chief Complaint: Abd Pain ED Provider: Francisco Murillo Dx/Rx/DC Orders Clinical Impression: Kidney stone on right side Instructions: ED Kidney Stone w/ Colic Prescriptions: New hydrocodone-acetaminophen 5-325 mg tablet 1 tab PO Q4H PRN (Reason: pain) 3 Days Qty: 10 RF: 0 No Action aspirin [Adult Aspirin Regimen] 81 mg tablet,delayed release (DR/EC) 81 mg PO QDAY RF: 0 albuterol sulfate 90 mcg/actuation HFA aerosol inhaler 2 puff INHALATION Q6H PRNRF: 0 losartan [Cozaar] 100 mg tablet 100 mg PO QDAY Qty: 90 RF: 3 metoprolol tartrate 50 mg tablet 50 mg PO BID Qty: 180 RF: 3 rosuvastatin 40 mg tablet 40 mg PO DAILY Qty: 90 RF: 3 potassium chloride 8 mEq capsule, extended release 8 meq PO DAILY RF: 0 ascorbic acid (vitamin C) 1,000 mg tablet 1 g PO Q6H RF: 0 budesonide-formoterol [Symbicort] 160-4.5 mcg/actuation HFA aerosol inhaler 2 puff INHALATION BID Qty: 3 RF: 3 Spiriva Respimat 2.5 mcg/actuation mist 2 puff INHALATION QDAY Qty: 3 RF: 3 omeprazole 20 mg capsule,delayed release(DR/EC) 20 mg PO BID RF: 0 Primary Care Provider: George Vázquez Referrals: Lance Esteban MD [STAFF PHYSICIAN] - 3-5 Days if not improving George Vázquez MD [Primary Care Provider] - As Needed Activity Restrictions/Additional Instructions: Plenty of fluids and rest. [place] for more severe pain otherwise you can use your Aleve or Motrin. You have a 5 mm stone on the right that should pass. Strain your urine looking for the past stone. Follow-up with urology if not improving. That is Dr. Esteban Return if intractable pain, fever or vomiting. Disposition Disposition: Home, Self Care
[2021-05-17 02:21] LABS: Absolute Neutrophil Count 4.1 X10^3/uL (2.0-7.7); Basophil# 0.07 X10^3/uL; Basophil% 0.9 % (0-1); Eosinophil# 0.22 X10^3/uL; Eosinophils% 2.7 % (0-5); Hematocrit 43.3 % (40-54); Hemoglobin 14.3 g/dL (13.0-16.5); Mean Corpuscular Hgb 30.8 pg (27.0-32.0); Mean Corpuscular Volume 93.1 fL (80-94); Mean Platelet Vol. 9.7 fl (6.2-12.0); Monocyte# 0.71 X10^3/uL; Monocyte% 8.8 % (0-10); NRBC Flagged by Analyzer 0 % (0-5); Neutrophil # 4.13 X10^3/uL (2.7-7.7); Neutrophil % 51.2 % (47-70); Platelet Count 245 K/mm3 (150-450); RBC Distribution Width CV 13.5 % (11.6-14.6); RBC Distribution Width SD 46.5 fl (35.1-43.9); Red Blood Count 4.65 M/mm3 (4.6-6.2); White Blood Count 8.1 K/mm3 (4.4-11.0)
[2021-05-17] MEDS: Ondansetron 4 MG/2 ML Vial IV (02:25)
[2021-05-17] MEDS: morphine 8 MG/ML Syringe IV ×2 (02:26→03:43)
[2021-05-17] MEDS: 0.9% Normal Saline 1,000 ML 1000 ML IV (02:27)
[2021-05-17 02:36] LABS: Anion Gap 4 (5-15); BUN 18 mg/dL (7-18); BUN/Creat Ratio 15.4 RATIO (10-20); Calcium,Total 9.3 mg/dL (8.5-10.1); Chloride 102 mmol/L (98-107); Creatinine, Serum 1.17 mg/dL (0.70-1.30); EST Glomerular Filtration Rate 66 mL/min (>60); Est Glom Filt Rate - Afr Amer 80 mL/min (>60); Estimated Creatinine Clearance 58.07 ml/min; Glucose 98 mg/dL (74-106); Potassium 3.7 mmol/L (3.5-5.1); Sodium Level 141 mmol/L (136-145)
[2021-05-17 04:45] VITALS: RESP 16
[2021-05-17 04:52] LABS: Bacteria 0 SEEN /hpf (None Seen); Color, Urine Amber (Yellow); Glucose, Dipstick Normal (Normal); Ketone-Dipstick Negative (Negative); Leukocyte Esterase-Dipstick 25 /ul (Negative); Mucous, Urine 0 SEEN /hpf (<or=2+); Nitrite-Dipstick Negative (Negative); Occult Blood-Urine 250 /ul (Negative); Protein-Dipstick 30 mg/dl (Negative); Specific Gravity, Urine 1.015 (1.002-1.030); Squamous Epithelial Cells - UA 0 SEEN /hpf (0-5); Urine Bilirubin Dipstick Negative (Negative); Urine Clarity Sl. Cloudy (Clear); Urine Urobilinogen Normal (Normal)
[2021-05-17 04:53] VITALS: BP 138/80; PULSE 70; RESP 16; O2SAT 88
[2021-05-17 04:54] VITALS: RESP 16; O2SAT 96
[2021-05-17 04:59] LABS: Red Blood Cells-Urine 10-25 SEEN /hpf (0-5); White Blood Cells 0-5 SEEN /hpf (0-5)
[2021-05-17 05:48] VITALS: BP 120/82; PULSE 78; RESP 16; O2SAT 96
== END 2021-05-17 05:50 | disposition home or self-care (01) ==
PROVIDERS: Emergency Provider Emergency Medicine; PCP Internal Medicine
DX: N13.2 Hydronephrosis with renal and ureteral calculous obstruction (principal); K80.20 Calculus of gallbladder without cholecystitis without obstruction; I10 Essential (primary) hypertension; E78.5 Hyperlipidemia, unspecified; I25.810 Atherosclerosis of coronary artery bypass graft(s) without angina pectoris; J44.9 Chronic obstructive pulmonary disease, unspecified; M51.36 Other intervertebral disc degeneration, lumbar region; M19.90 Unspecified osteoarthritis, unspecified site; Z87.19 Personal history of other diseases of the digestive system; Z90.49 Acquired absence of other specified parts of digestive tract; Z79.82 Long term (current) use of aspirin; Z79.899 Other long term (current) drug therapy; F17.210 Nicotine dependence, cigarettes, uncomplicated
CPT/HCPCS: 74177; 80048; 81001; 85025; 96361; 96374; 96375; 96376; 99283; J7030; Q9967; A4216; J2405

== ENCOUNTER → 2021-05-19 | Outpatient (CLI) | payer MEDICARE, OTHER, SELFPAY ==
[2021-05-17 01:55] VITALS: BMI 29.3
--- NOTE | 2021-05-19 12:10 | RAD_ITS ---
STUDY: X-RAY - ABDOMEN/PELVIS REASON FOR EXAM: Male, 65 years old. PRE OP TECHNIQUE: Single AP view of the abdomen / pelvis. COMPARISON: None. FINDINGS: Prior CABG. There is an unremarkable bowel gas pattern. There is a 5.4 mm calculus at the right ureterovesical junction with small amount of contrast in the distal right ureter. Normal soft tissue structures. There are diffuse degenerative changes of the visualized lumbar spine. RAD/Abdomen Single View IMPRESSION: 5.4 mm calculus at the right ureterovesical junction with small amount of residual contrast in the distal right ureter. Electronically Signed: Byron Chacon MD at 15:29 EDT , Service support ,
== END | disposition home or self-care (01) ==
PROVIDERS: PCP Internal Medicine; Visit Provider Nurse Practitioner Acute Care
DX: N20.1 Calculus of ureter (principal); R05 Cough
CPT/HCPCS: 74018; 87070; 87186; 87205

== ENCOUNTER → 2021-05-21 11:02 | Outpatient (CLI) | payer MEDICARE, OTHER, SELFPAY ==
[2021-05-17 01:55] VITALS: BMI 29.3
[2021-05-21 11:50] LABS: Anion Gap 7 (5-15); BUN 14 mg/dL (7-18); BUN/Creat Ratio 12.6 RATIO (10-20); Chloride 102 mmol/L (98-107); Creatinine, Serum 1.11 mg/dL (0.70-1.30); EST Glomerular Filtration Rate 70 mL/min (>60); Est Glom Filt Rate - Afr Amer 85 mL/min (>60); Glucose 100 mg/dL (74-106); Potassium 3.8 mmol/L (3.5-5.1); Sodium Level 139 mmol/L (136-145)
== END ==
PROVIDERS: PCP Internal Medicine; Referring Provider Nurse Practitioner Gerontology; Visit Provider Nurse Practitioner Gerontology
DX: I10 Essential (primary) hypertension (principal)
CPT/HCPCS: 36415; 80048

== ENCOUNTER → 2021-05-24 13:47 | Outpatient (CLI) | payer MEDICARE, OTHER, SELFPAY ==
[2021-05-12 08:07] VITALS: BMI 29.0
[2021-05-17 01:55] VITALS: BMI 29.3
--- NOTE | 2021-05-24 13:48 | CT_ITS ---
STUDY: CT CHEST WITHOUT CONTRAST REASON FOR EXAM: Male, 65 years old. History of lung nodule. RADIATION DOSAGE (If Supplied By Facility): CTDIvol = ( 9.18 ) mGy, DLP = ( 305.64 ) mGycm TECHNIQUE: Transaxial imaging was performed without the administration of intravenous contrast material. Multiplanar coronal and sagittal images were reformatted. Individualized dose optimization techniques were used for this CT. COMPARISON: Comparison is made with prior study dated 02/25/2021. FINDINGS: Stable 1 cm pleural-based nodule in the left lower lobe. This is seen on axial image #91. There is evidence of increased linear markings at the left lung base suggestive of scarring. This most likely represents a focal area of scarring. Hyperinflation. Emphysematous changes worse in the upper lobes. Stable linear scar at the right lung base. Sternal cerclage wires and vascular clips are present from a prior sternotomy and coronary artery bypass graft procedure (CABG). Normal mediastinum. Normal hilar regions. Normal unenhanced pulmonary arteries. Normal aorta arch and descending thoracic aorta. There are multi-level degenerative changes of the thoracic spine. There is no demonstrated abnormality of the visualized upper abdomen. CT/Chest without Contrast IMPRESSION: Stable 1 cm nodular density in the lateral aspect of the left lower lobe as described. This most likely represents a focal area of scarring. A follow-up CT scan in 6 months is recommended. Electronically Signed: Byron Chacon MD at 15:51 EDT , Service support ,
== END ==
PROVIDERS: PCP Internal Medicine; Referring Provider Nurse Practitioner Acute Care; Visit Provider Nurse Practitioner Acute Care
DX: R91.1 Solitary pulmonary nodule (principal)
CPT/HCPCS: 71250

== ENCOUNTER → 2021-06-03 12:17 | Outpatient (CLI) | payer MEDICARE, OTHER, SELFPAY ==
[2021-02-11 13:06] VITALS: BMI 29.4
[2021-05-17 01:55] VITALS: BMI 29.3
[2021-06-03 12:30] VITALS: PULSE 102; PULSE 103; PULSE 105; PULSE 85; PULSE 93; PULSE 94; PULSE 97; PULSE 98; O2SAT 89; O2SAT 91; O2SAT 92; O2SAT 93; O2SAT 95
--- NOTE | 2021-06-03 12:50 | CPS ---
Patient states that he wears 2L of oxygen at night. Test was initiated on RA as sat's were 93%. At the 3 minute lakeisha patient's sat's dropped to 89% therefore oxygen was initiated at 2L and sat's recovered to 95%. Sat's maintained above 90% for the remainder of the test on 2L.
--- NOTE | 2021-06-03 15:13 | WT_ITS ---
PSN 6 Minute Walk Test 6 Minute Walk Test 6 Minute Walk Test: 6 Minute Walk Test PSN:6-Minute Walk Test Start: 06/03/21 12:41 Freq: Status: Active Protocol: [id number] Document 06/03/21 12:30 REINA (Rec: 06/03/21 12:53 HJ [id number]) 6 Minute Walk Test Date Performed 06/03/21 Time Performed 12:30 Height 5 ft 7 in Weight: 81.647 kg Weight in Pounds 180.[address]: Radha Roberts [employer]PER[employer] FIO2 (% Oxygen) 28 Assistive device used: None Pre-test Oxygen Delivery Method Room Air Pulse Ox (%) 93 Pulse Rate (60-100 beats/min) 85 Dyspnea Emily Scale (0-10) 0 Exertion Emily Scale (6-20) 6 1st minute Oxygen Delivery Method Room Air Pulse Ox (%) 92 Pulse Rate (60-100 beats/min) 94 2nd minute Oxygen Delivery Method Room Air Pulse Ox (%) 91 Pulse Rate (60-100 beats/min) 97 3rd minute Oxygen Flow Rate (L/min) (L/min) 2 Oxygen Delivery Method Nasal Cannula Pulse Ox (%) 89 Pulse Rate (60-100 beats/min) 102 H 4th minute Oxygen Flow Rate (L/min) (L/min) 2 Oxygen Delivery Method Nasal Cannula Pulse Ox (%) 95 Pulse Rate (60-100 beats/min) 98 5th minute Oxygen Flow Rate (L/min) (L/min) 2 Oxygen Delivery Method Nasal Cannula Pulse Ox (%) 93 Pulse Rate (60-100 beats/min) 105 H 6th minute Oxygen Flow Rate (L/min) (L/min) 2 Oxygen Delivery Method Nasal Cannula Pulse Ox (%) 93 Pulse Rate (60-100 beats/min) 103 H Post-test Oxygen Flow Rate (L/min) (L/min) 2 Oxygen Delivery Method Nasal Cannula Pulse Ox (%) 95 Pulse Rate (60-100 beats/min) 93 Dyspnea Emily Scale (0-10) 2 Exertion Emily Scale (6-20) 11 Full Laps Walked 15 Partial Lap, Number of Tiles Walked 26 Total Distance Walked (ft) 911 06/03/21 12:50 Cardiopulmonary Services by Cortney Mclaughlin Patient states that he wears 2L of oxygen at night. Test was initiated on RA as sat's were 93%. At the 3 minute lakeisha patient's sat's dropped to 89% therefore oxygen was initiated at 2L and sat's recovered to 95%. Sat's maintained above 90% for the remainder of the test on 2L. Initialized on 06/03/21 12:50 - END OF NOTE Interpretation Interpretation: The patient was noted to be 93% on room air, but desaturated in the third minute and required 2 L nasal cannula. The patient experienced no significant tachycardia with testing and maintained saturations on the 2 L. In total, the patient traveled 911 feet over the course of 6 minutes with no assistive devices or breaks. These findings are consistent with a respiratory limitation exercise tolerance. Recommendations Recommendations: No supplemental oxygen is indicated at rest, but patient should be using 2 L nasal cannula with any exertion.
== END ==
PROVIDERS: PCP Internal Medicine; Referring Provider Nurse Practitioner Acute Care; Visit Provider Nurse Practitioner Acute Care
DX: J44.9 Chronic obstructive pulmonary disease, unspecified (principal)
CPT/HCPCS: 94618

== ENCOUNTER → 2021-06-04 12:44 | Outpatient (CLI) | payer MEDICARE, OTHER, SELFPAY ==
[2021-02-11 13:06] VITALS: BMI 29.4
[2021-05-17 01:55] VITALS: BMI 29.3
--- NOTE | 2021-06-04 15:12 | PFTCOMP_ITS ---
COMPLETE PULMONARY FUNCTION TEST INTERPRETATION Brief HPI: Patient is a 65 year old male, currently under the care of myself, who presents to [facility] for complete pulmonary function tests secondary to diagnosis of COPD. Respiratory therapist reports good effort and reproducible results. Interpretation: Forced expiration spirometry shows a severe large airways obstructive ventilatory defect with an FEV1 of 41% predicted. There is no significant bronchodilator response by strict ATS criteria. Spirograms are of good quality and plateau slowly, indicating slowly emptying areas of the lungs. The respiratory flow volume loop shows decreased expiratory flow rates at all lung volumes consistent with airway obstruction. Lung volumes by body plethysmography show a normal total lung capacity at 5.58 L, 95% predicted. All other lung volumes are within normal limits. Diffusion capacity by carbon monoxide is normal at 73% predicted. The airway resistance is elevated. Compared to previous pulmonary function tests from 08/13/2020, there has been an improvement in air trapping and FEV1. Impression: Irreversible severe large airways obstructive ventilatory defect with relatively preserved lung volumes and DLCO. There has been improvement compared to p revious testing.
== END ==
PROVIDERS: PCP Internal Medicine; Referring Provider Nurse Practitioner Acute Care; Visit Provider Nurse Practitioner Acute Care
DX: J44.9 Chronic obstructive pulmonary disease, unspecified (principal)
CPT/HCPCS: 94060; 94726; 94729

== ENCOUNTER → 2021-06-24 09:08 | Outpatient (CLI) | payer MEDICARE, OTHER, SELFPAY ==
--- NOTE | 2021-06-24 09:15 | PCM.PR.TP ---
General Information - General Information Admitting Diagnosis: COPD GOLD III: severe Gold Classification:: GOLD 3: Severe - PFT FEV1:: 1.23 - 41% predicted FVC:: 2.63 - 65% predicated FEV1/FVC%:: 47 - Education/Goals Barriers to Learning: Vision Impairment - reading glasses Individual Counseling: Initial Assessment: Dyspnea control techniques at rest, activity, and ADLs, ADL management and pacing, Smoking cessation, Home exercise plan & guidelines Patient Goals: Breathe better: Initial Assessment, Increase endurance/stamina: Initial Assessment, Improve diet and nutrition: Initial Assessment, Stop smoking/maintain cessation: Initial Assessment Exercise - Initial Assessment - Visit Date of Eval: 06/24/21 - Problem/Goals Problems: Deconditioning, Knowledge deficit exercise guidelines, Knowledge deficit exercise safety Goals:: Aerobic exercise 30-60 mins x 9 weeks - Physician Prescribed Exercise Modalities: Treadmill, Rower, Airdyne, NuStep Frequency (days/week): 3 - M,W, F Duration (Minutes):: 30-45 Intensity: 60-80% of age predicted maximum heart rate reserve METs - Progression: 0.5-1.0 MET, RPE 11-14 WEEK: 3 Target Heart Rate:: 100-130 - Plan Plan and Plan to Review:: Benefits of exercise, Core components of exercise, How to measure dyspnea level, How to monitor dyspnea level, Exercise intensity, Exercise safety guideline, Home exercise guidelines, Emily: 3-4/-13 Disease Management - Initial - Problems/Goals-Hypoxemia Hypoxemia Goals:: Hypoxemia managed - Problems/Goals-Medications Medication Goals: Adherence to prescribed medications, Correct technique/timing & care of MDI, DPI, nebulizer, and spacer. - Initial Assessment SpO2:: 98 - room air FiO2:: 21 Does pt report taking home meds as prescribed?: Yes Medications: Yes MDI, Yes DPI, Yes Spacer, N/A NEB Patient Reports:: Non-productive cough - Plans Hypoxemia Plan:: Monitor SpO2 rest & with exercise Reviewed prescribed medications:: Purpose, Schedule, Side effects, Importance of compliance Bronchial Hygiene Plan: Controlled cough, Vibratory PEP device, Hydration, Hand hygiene, Signs/symptoms to report: Psychosocial - Initial Assess - Problems/Goals Problems: Impaired Q.O.L. - Psychosocial Test Depression:: Impaired QOL Tests Completed: SF - 36 survey completed, Mood Scale Test Referred to MD for counseling:: No - Plan Reviewed screening results: Yes Instructions given regarding:: Benefits of exercise, Relaxation techniques, Training in coping strategies Tobacco - Initial Assessment - Stage of Change Stages of Change:: Action - Learning Barriers Learning Barriers: Vision - reading glasses - Family Support Do you have family support?: Yes - Tobacco Use Tobacco Use: Cigarettes Do you use smokeless tobacco?: No - Intervention Smoking Cessation Referral:: Yes Individual Education/Counseling:: Yes Education Schedule Given:: Yes - Education Gave Education Materials For:: Tobacco Triggers, Pulmonary Disease, Risk Factors, Breathing Techniques, Medical Compliance, Pulmonary A&P, Exacerbation Signs & Symptoms, Stress & Relaxation Tobacco - 30-Day Assessment Tobacco - 60-Day Assessment Tobacco - 90-Day Assessment Tobacco - Final Assessment Nutrition/Wt Mgmt - Initial - Problems/Goals Problems: Overweight Goals: BMI 21-25, Wt Loss 1-2 lbs per week - Weight Management Knowledge Deficit Management of:: Overweight Admit Height:: 5 ft 7 in Admit Weight:: 185 lb 9.6 oz Admit BMI:: 29.0 - Diabetes Diabetes:: No - Intervention Referral to dietitian:: Yes - Medical Nutrition Therapy & weight reduction Referral to Diabetic Clinic:: No Will attend diet classes:: Yes - Plan Nutrition Plan: Yes Nutrition education class:, Yes Weight control education class: Patient Health Questionnaire Initial Assessment 1. Little interest or pleasure in doing things: Not at all 2. Feeling down, depressed, or hopeless: Not at all 3. Trouble falling or staying asleep, or sleeping too much: Not at all 4. Feeling tired or having little energy: Several days 5. Poor appetite or overeating: Not at all 6. Feeling bad about yourself -- or that you are a failure or have let yourself or your family down: Several days 7. Trouble concentrating on things, such as reading the newspaper or watching television: Not at all 8. Moving or speaking so slowly that other people could have noticed. Or the opposite - being so fidgety or restless that you have been moving around a lot more than usual: Not at all 9. Thoughts that you would be better off , or of hurting yourself in some way: Not at all How difficult have these problems made it for you to do your work, take care of things at home, or get along with other people?: Somewhat difficult Total Score: 2 COPD Knowledge Test Initial COPD is a lung disease that:: Makes it hard to breathe & gets worse over time In the [place] the term COPD describes 2 main lung conditions:: Emphysema & chronic bronchitis The most common lung irritant that causes COPD is:: Cigarette smoke Common signs and symptoms of COPD include:: An ongoing cough/cough that produces a large amount of mucus, & SOB If you have COPD, what steps can you take?: All of the above Swelling of the ankles is common in COPD:: False Fatigue [tiredness] is common in COPD:: True Wheezing is common in COPD:: True Crushing chest pain is common in COPD:: False Rapid weight loss is common in COPD:: False Breathlessness is a normal response to exercise: True Exercise should be avoided if it makes you short of breath: False All bronchodilators act within 10 minutes: True A spacer device increases the medication to the lungs: True Annual flu vaccine is recommended for pts w/lung disease: True COPD Knowledge Test Total Score:: 14 COPD Assessment Test [CAT] - Questions Never cough = 0, Cough all the time = 5: 4 No phlegm = 0, Chest full of phlegm = 5: 3 No chest tightness = 0, Chest very tight = 5: 1 No breathless w/exertion = 0, Very breathless w/exertion = 5: 4 No limitations w/activity = 0, Very limited w/activity = 5: 3 Confident leaving home = 0, Not at all confident = 5: 2 Sleep soundly = 0, Don't sleep soundly = 5: 1 Lots of energy = 0, No energy at all = 5: 3 Total CAT score:: 21 Self-Efficacy Initial Assessment We would like to know how confident you are in doing certain activities. Please select your confidence level for:: Select your confidence level for the following using the scale 1-10 where 1 is not at all confident and 10 is totally confident. Your score is the average of all 6 responses. Fatigue: How confident are you that you can keep the fatigue caused by your disease from interfering with the things you want to do? Select Number: 7 Physical Discomfort or Pain: How confident are you that you can keep the physical discomfort or pain of your disease from interfering with the things you want to do? Select Number: 6 Emotional Distress: How confident are you that you can keep the emotional distress caused by your disease from interfering with the things you want to do? Select Number: 8 Other Symptoms or Health Problems: How confident are you that you can keep other symptoms or health problems from interfering with the things you want to do? Select Number: 8 Different Tasks and Activities: How confident are you that you can do the different tasks and activities needed to manage your health condition so as to reduce your need to see a doctor? Select Number: 6 Medication: How confident are you that you can do things other than just taking medication to reduce how much your illness affects your everyday life? Select Number: 6 Total Score:: 6 Nutrition Survey - Nutrition Survey Initial Have you lost >10 lbs over the past 2 months without trying?: No Are you following a special diet at home for diabetes, low fat, or low salt?: No Are you interested in meeting with a dietitian for help understanding your diet?: No Do you eat less than 3 meals a day?: Yes Do you eat fatty meats (almendarez, sausage, ribs, etc), fried foods, desserts, large amounts of salad dressings, margarine, butter, or cheese most days?: Yes Do you have food allergies? [Enter types in comment field]: No Do you eat in restaurants more than 3 times a week?: No Do you season food with salt, seasoning salt, or garlic salt?: Yes Do you used canned, boxed, frozen meals, or soups, seasoning packets?: Yes Total Score:: 4
--- NOTE | 2021-06-24 09:16 | PR.HP_ITS ---
History of Present Illness Arrival date:: 06/24/21 Arrival time:: 09:19 Date of Referral:: 06/14/21 Date of Evaluation: 06/24/21 Referring Physician: Dr. Farooq Hall Primary Diagnosis: COPD GOLD III: severe History of Present Illness: COPD GOLD CLASS III: Severe mMRC Breathless Scale: When is the patient short of breath? Y/N Grade: Description of Breathlessness: 0 I only get breathless with strenuous exercise. y 1 I get short of breath when hurrying on level ground or walking up a slight hill. 2 On level ground, I walk slower than people of the same age because of breathless, or have to stop for breath when walking at my own pace. 3 I stop for breath after walking 100 yards or after a few minutes on level ground. 4 I am too breathless to leave the house or I am breathless when dressing. Respiratory Problems: Yes: Retain Secretions, Fatigue, Wheezing, Able to Speak in Full Sentences, Dyspnea with Activity, Dyspnea Lying Down Flat, Cough with Secretions No: Limited Range of Motion, Dyspnea at Rest - Secretions Normal Color:: clear to white Thick:: Yes Cough:: Yes PM: Yes Hx of Sleep Apnea: Yes Do you snore loudly (louder than talking or can be heard through closed doors)?: Yes Do you often feel tired/ fatigued/ sleepy during daytime?: Yes Has anyone observed you stop breathing during sleep?: No - Hs had 2 sleep studies doen here at [facility] and both were negative results. History of Hypertension (for STOP score): Yes STOP Results: Positive Home Medications: Home Medications albuterol sulfate 90 mcg/actuation aerosol inhaler 2 puff INHALATION Q6H PRN 04/23/18 aspirin 81 mg tablet,delayed release 81 mg PO QDAY 04/23/18 losartan 100 mg tablet 100 mg PO QDAY #90 tab 09/30/19 metoprolol tartrate 50 mg tablet 50 mg PO BID #180 tab 09/30/19 potassium chloride 8 mEq capsule,extended release 8 meq PO DAILY 07/07/20 rosuvastatin 40 mg tablet 40 mg PO DAILY #90 tab 10/05/20 budesonide-formoterol HFA 160 mcg-4.5 mcg/actuation aerosol inhaler 2 puff INHALATION BID #3 device 10/27/20 tiotropium bromide 2.5 mcg/actuation mist for inhalation 2 puff INHALATION QDAY #3 device 10/27/20 omeprazole 20 mg capsule,delayed release 20 mg PO BID 05/11/21 penicillin V potassium 250 mg tablet 250 mg PO TID #30 tab 05/24/21 Allergies/Adverse Reactions: Allergies levofloxacin [From Levaquin] Adverse Reaction (Severe, Verified 05/19/21 13:07) tendonitis Achilles Medical Utilization Do you use a peak flow meter at home?: No Do you use a spacer device with your inhalers?: No Number of hospital visits in the last year?: 0 Number of emergency room visits in the last year?: 1 - about a month ago with kidney stones Do you see your physician on a regular schedule?: Yes How often?: twice per year Advanced Directives - Advanced Directives Power of Restaurant Hospitality Manager: Yes - filed with is behavioral services tech Living Will: Yes Advance Directives Information Provided: No Advance Directives on File: No DNR Order?:: No - MOLST See MOLST form: No Past Medical History - Covid-19 Screening Fever: No Unexplained muscle aches: No Current respiratory symptoms: No Upper respiratory infections symptoms: No Gastro-intestinal symptoms: No [id number] symptoms: No Has tested positive for COVID-19 in last 30 days: No Date of testin01/14/21 - [facility] COVID-19 Vaccine and will take a booster when available. Had contact w/person w/symptoms or Covid-19 (+) last 14 days: No Has High Risk Exposures ID'd by Health dept/Inf Control team: No 65 years or older:: Yes Lives in Assisted Living facility:: No Has a chronic lung disease or moderate to severe asthma:: Yes Has a serious heart condition:: Yes Immunocompromised:: No Severely obese (Body Mass Index of 40 or higher):: No Diabetic:: No Has chronic kidney disease undergoing dialysis:: No Has liver disease:: No Medical History: Past Medical History (Last Updated 05/19/21 @ 13:20 by Maryse Alvarado) Alcohol use Z72.89 occ Arthritis M19.90 Atherosclerosis of coronary artery bypass graft without angina pectoris I25.810 CABG x 2 STEPHENS-LAD, SVG-D1 10/14/96 SVG-D1 is occluded Atherosclerosis of coronary artery of [place] heart without angina pectoris I25.10 PCI-JOEY-CX w/ 2.75 x 18 Promus 06/19/2008 PCI-Stent to RCA w/ BX Velocity in 2000, 2004 PCI-JOEY-Cx w/ 2.75 x 20 mm Taxus and distally w/ 3.0 x 15 mm Director Of Guidance Stent 01/05/2006 CABG x 2 STEPHENS-LAD, SVG-D1 10/14/96 SVG-D1 is occluded Cardiology follow-up encounter Z09 follows with whg/last visit 04/2021 Chronic bronchitis J42 COPD (chronic obstructive pulmonary disease) J44.9 DDD (degenerative disc disease), lumbar M51.36 Easy bruising R23.8 d/t asa Excessive bleeding R58 d/t asa Gastric reflux K21.9 on med High cholesterol E78.00 on med History of diverticulitis Z87.19 History of echocardiogram Z92.89 2018 History of stress test Z92.89 stress echo 2019 History of ulceration Z87.898 small ulcer Hyperlipidemia E78.5 Hypertension I10 Hypertension I10 controlled with med Marijuana use F12.90 1970's Nicotine dependence F17.200 On home oxygen therapy Z99.81 2l at night Osteoarthritis M19.90 Shortness of breath on exertion R06.02 sob with 2 flights of stairs Smoker F17.200 Surgical History: Past Surgical History (Last Updated 05/19/21 @ 13:20 by Maryse Alvarado) H/O coronary artery bypass surgery Onset Date: 10/14/96 Z95.1 CABG x 2 STEPHENS-LAD, SVG-D1 10/14/96 @ [facility] [place] History of appendectomy Z90.49 History of cardiac catheterization Z98.890 2007 History of colectomy Z90.49 History of coronary artery stent placement Z95.5 PCI-JOEY-CX w/ 2.75 x 18 Promus 06/19/2008 PCI-Stent to RCA w/ BX Velocity in 2000, 2004 PCI-JOEY-Cx w/ 2.75 x 20 mm Taxus and distally w/ 3.0 x 15 mm Director Of Guidance Stent 01/05/2006 History of left knee replacement Z96.652 History of partial colectomy Z90.49 History of tonsillectomy Z90.89 1965 Hx of left cataract extraction Z98.42 Hx of right cataract extraction Z98.41 S/p bilateral carpal tunnel release Z98.890 Family History: Family History (Last Reviewed 05/17/21 @ 02:[address] Francisco Murillo MD) Father CAD (coronary artery disease) - Current/ Previous Services Pulmonary Rehab:: No - Comments Comments: Patient had a open heart bypass in 1995. Social History - Smoking History Smoking Status: Current every day smoker Years Smokin Packs Smoked per Day: 1 - down to <10 per day Hx Tobacco Use: Yes Hx Smoking Exposure: Yes - Alcohol Use Alcohol Usage: Yes - rare occasions - Substance Abuse Hx Substance Use: No - Occupation Occupation (List type of work in comments):: Employed Hours worked per day:: 6 - Hobbies, Recreation, Social Activities Hobbies: Sports - Golfing, , Watch TV, Exercise - riding bicycle, Other Recreational Activities: I am able to engage in most, but not all activities - has some residual effects from an allergic reaction to levaquin which ceased up his achiles tendons and was unable to walk for 2 weeks. Functioning ADL/IADL - Current Ability Current Ability: Independent Self-Care (e.g.,grooming, dressing, & bathing), Independent Ambulation, Independent Transfer, Independent Household tasks (e.g., light meal prep, laundry, shopping) - Pt Functioning Prior to Problem Prior Functioning: Self-Care (e.g.,grooming, dressing, & bathing): Independent, Ambulation: Independent, Transfer: Independent, Household tasks (e.g., light meal prep, laundry, shopping): Independent Social Environment - Status Marital Status: - 2007 - Current Living Arrangements Living Environment:: Family - son lives with him. - Children How many children do you have?: 3 Do any of your children live nearby?: Yes - Safety Do you feel safe in your surroundings?: Yes - Assistance Do you need any assistance at home?: 24 stairs to climb to his condo anything heavy his son carries. Review of Systems Review of Systems: Right click = Denies ([place]). Left click = Reports ([place]) Respiratory: Reports: Cough, SOB upon Exertion, Sputum production, Wheezing, Appetite, Normal, Dizziness/Lightheadedness - very rare occasions. 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 The patient is also a patient of Dr. Giles for his cardiac care. Patient had CABG in 1995, and is following his care with Dr. Giles. - Vital Signs Temperature: 97.5 F Pulse Rate: 66 Pulse Rhythm: Regular Respiratory Rate: 16 Pulse Ox: 98 - room air Blood Pressure: 104/63 - Obesity Height: 5 ft 7 in Weight:: 185 lb 9.6 oz Weight in Pounds: 185.6 lbs Weight Source: Standing Scale Body Mass Index (BMI): 29.0 Nutritional Referral for Obesity: No - Physical Activity Physical Inactivity: Reg Exercise 30 min/day, Recreational activity - Risk Stratification Risk Guidelines: Lowest Risk: Risk Factor for Diabetes, Risk Factor for Hypertension, Risk Factor for Sedentary Lifestyle, Risk Factor for Depression, Moderate Risk: Risk Factor for Dyslipidemia, Risk Factor for Obesity, Highest Risk: Risk Factor for Smoking Motivation - Motivation to Participate On a scale of 1 to 10, how prepared are you to commit to attending program?: 10 What do you see as barriers to successfully being able to complete the program?: no What do you see as the benefits of succesfully completing the program? In other words, what do you hope to get out of participating in the program?: improving my Q.O.L. Are there issues you are dealing with that will interfere with completing the program?: none Do you have a spouse or signficant other, family or friends who will help support you to complete the program?: yes, parents oldest son. Diagnostic Data Review - Pulmonary Function Test FEV1:: 1.23 - 41% predicted FVC:: 2.63 - 65% predicated FEV1/FVC%:: 47 Gold Classification: GOLD class III(severe COPD)with FEV1/FVC<70, 30%</=FEV1< 50% predicted
[2021-06-24 09:36] VITALS: O2SAT 98; BMI 29.0
[2021-06-24 09:58] VITALS: BP 104/63; PULSE 66; RESP 16; TEMP 36.4; O2SAT 98; BMI 29.0
== END ==
PROVIDERS: PCP Internal Medicine; Referring Provider Internal Medicine Critical Care Medicine; Visit Provider Internal Medicine Critical Care Medicine
DX: J44.9 Chronic obstructive pulmonary disease, unspecified (principal)

== ENCOUNTER 2021-06-28 15:35 | Outpatient (RCR) | payer MEDICARE, OTHER, SELFPAY | END 2021-06-29 23:59 | LOC: PR 15:35 | PROVIDERS: PCP Internal Medicine; Referring Provider Internal Medicine Critical Care Medicine; Visit Provider Internal Medicine Critical Care Medicine | DX: J44.9 Chronic obstructive pulmonary disease, unspecified (principal); F17.210 Nicotine dependence, cigarettes, uncomplicated; G47.33 Obstructive sleep apnea (adult) (pediatric) | CPT/HCPCS: 97150; G0424 ==

== ENCOUNTER 2021-07-28 14:30 | Outpatient (RCR) | payer MEDICARE, OTHER, SELFPAY ==
--- NOTE | 2021-07-28 08:30 | PCM.PR.TP ---
Exercise - 30-Day Assessment - Physician Prescribed Exercise Modalities: Treadmill, Airdyne, NuStep Frequency (days/week): 3 Duration (Minutes):: 45 Intensity: 60-80% of age predicted maximum heart rate reserve Aerobic Exercise [30-60 min 3-7x/week]:: Progressing Target heart rate: 100-130 Emily-12.5 METs - Progression: 0.5-1.0 MET, RPE 11-14 WEEK: 5.0 - increase from 3.5 - Home Exercise Home Exercise:: Yes Disease Management - 30-Day - Hypoxemia Reassessment: Demonstrates knowledge of O2 Rx with exercise - Medications Medication list reviewed:: Yes Taking medications 100% of the time:: Approximately 75% of the time Medication reassessment: Yes Pt demonstrates correct technique timing for MDI, Yes Pt demonstrates correct technique timing for DPI, Yes Pt demonstrates correct technique timing for NEB, Yes Pt demonstrates correct technique timing for spacer - Bronchial Hygiene Bronchial Hygiene Plan: Yes Pt demo correct for device, Yes Pt demo correct for hand hygiene, Yes Pt demo correct for verbalize when to call MD, Reinstructed Pt demo correct for improved hydration Psychosocial - 30-Day - Assessment Reassessment: Management of stress & depression, Practicing interventions, Demonstrate coping strategies, Self efficacy score Tobacco - Initial Assessment Tobacco - 30-Day Assessment - Stage of Change Stages of Change:: Contemplate - Learning Barriers Learning Barriers: Participates in education - Family Support Do you have family support?: Yes - Tobacco Use Tobacco Use: Cigarettes How many cigarettes do you smoke per day?: 20 Do you use smokeless tobacco?: No - Intervention Smoking Cessation Referral:: Yes Individual Education/Counseling:: Yes - Smoking Cessation Referral Education Schedule Given:: Yes - Education Gave Education Materials For:: Tobacco Triggers, Pulmonary Disease, Risk Factors, Breathing Techniques, Medical Compliance, Pulmonary A&P, Exacerbation Signs & Symptoms, Stress & Relaxation Tobacco - 60-Day Assessment Tobacco - 90-Day Assessment Tobacco - Final Assessment Nutrition/Wt Mgmt - 30-Day - Weight Management Weight:: 181 lb - BMI 28.8 Weight Goals Progress:: Progressing Patient Health Questionnaire 30-Day Re-eval Assessment 1. Little interest or pleasure in doing things: Not at all 2. Feeling down, depressed, or hopeless: Not at all 3. Trouble falling or staying asleep, or sleeping too much: Not at all 4. Feeling tired or having little energy: Several days 5. Poor appetite or overeating: Not at all 6. Feeling bad about yourself -- or that you are a failure or have let yourself or your family down: Several days 7. Trouble concentrating on things, such as reading the newspaper or watching television: Not at all 8. Moving or speaking so slowly that other people could have noticed. Or the opposite - being so fidgety or restless that you have been moving around a lot more than usual: Not at all Total Score: 2 Self-Efficacy 30-Day Re-eval Assessment We would like to know how confident you are in doing certain activities. Please select your confidence level for:: Select your confidence level for the following using the scale 1-10 where 1 is not at all confident and 10 is totally confident. Your score is the average of all 6 responses. Fatigue: How confident are you that you can keep the fatigue caused by your disease from interfering with the things you want to do? Select Number: 8 Physical Discomfort or Pain: How confident are you that you can keep the physical discomfort or pain of your disease from interfering with the things you want to do? Select Number: 7 Emotional Distress: How confident are you that you can keep the emotional distress caused by your disease from interfering with the things you want to do? Select Number: 9 Other Symptoms or Health Problems: How confident are you that you can keep other symptoms or health problems from interfering with the things you want to do? Select Number: 9 Different Tasks and Activities: How confident are you that you can do the different tasks and activities needed to manage your health condition so as to reduce your need to see a doctor? Select Number: 8 Medication: How confident are you that you can do things other than just taking medication to reduce how much your illness affects your everyday life? Select Number: 8 Total Score:: 8 Nutrition Survey
== END 2021-07-29 23:59 ==
LOC: PR 14:30
PROVIDERS: PCP Internal Medicine; Referring Provider Internal Medicine Critical Care Medicine; Visit Provider Internal Medicine Critical Care Medicine
DX: J44.9 Chronic obstructive pulmonary disease, unspecified (principal); F17.210 Nicotine dependence, cigarettes, uncomplicated; G47.33 Obstructive sleep apnea (adult) (pediatric)
CPT/HCPCS: 97150; G0424

== ENCOUNTER 2021-08-27 14:30 | Outpatient (RCR) | payer MEDICARE, OTHER, SELFPAY ==
--- NOTE | 2021-08-24 08:28 | PCM.PR.TP ---
Exercise - 60-Day Assessment - Physician Prescribed Exercise Modalities: Treadmill, NuStep Intensity: 60-80% of age predicted maximum heart rate reserve Target heart rate: 100-130 Emily-12 METs - Progression: 0.5-1.0 MET, RPE 11-14 WEEK: 6.5 - increase from 5.0 - Home Exercise Home Exercise:: No Disease Management - 60-Day - Hypoxemia Reassessment: Demonstrates knowledge of O2 Rx with exercise - Medications Medication list reviewed:: Yes Taking medications 100% of the time:: Met Medication reassessment: Yes Pt demonstrates correct technique timing for MDI, Yes Pt demonstrates correct technique timing for DPI, Yes Pt demonstrates correct technique timing for NEB, Yes Pt demonstrates correct technique timing for spacer - Bronchial Hygiene Bronchial Hygiene Plan: Yes Pt demo correct for improved hydration, Yes Pt demo correct for hand hygiene, Yes Pt demo correct for verbalize when to call MD Psychosocial - 60-Day - Assessment Depression reassess: Management of stress: Progressing, Management of depression: Progressing, Practicing interventions: Progressing Tobacco - Initial Assessment Tobacco - 30-Day Assessment Tobacco - 60-Day Assessment - Stage of Change Stages of Change:: Action - Learning Barriers Learning Barriers: Participates in education - Family Support Do you have family support?: Yes - Tobacco Use Tobacco Use: Cigarettes How many cigarettes do you smoke per day?: 10 - < 20 Do you use smokeless tobacco?: No - Intervention Smoking Cessation Referral:: Yes Individual Education/Counseling:: No Education Schedule Given:: Yes - Education Gave Education Materials For:: Tobacco Triggers, Pulmonary Disease, Risk Factors, Breathing Techniques, Medical Compliance, Pulmonary A&P, Exacerbation Signs & Symptoms, Stress & Relaxation Tobacco - 90-Day Assessment Tobacco - Final Assessment Nutrition/Wt Mgmt - 60-Day - Weight Management Weight Assessment:: Wt loss 1-2 lbs per week Weight:: 178 lb 8 oz - BMI 28.8 Weight Goals Progress:: Progressing Patient Health Questionnaire 60-Day Re-eval Assessment 1. Little interest or pleasure in doing things: Not at all 2. Feeling down, depressed, or hopeless: Not at all 3. Trouble falling or staying asleep, or sleeping too much: Not at all 4. Feeling tired or having little energy: Several days 5. Poor appetite or overeating: Not at all 6. Feeling bad about yourself -- or that you are a failure or have let yourself or your family down: Several days 7. Trouble concentrating on things, such as reading the newspaper or watching television: Not at all 8. Moving or speaking so slowly that other people could have noticed. Or the opposite - being so fidgety or restless that you have been moving around a lot more than usual: Not at all How difficult have these problems made it for you to do your work, take care of things at home, or get along with other people?: Not difficult at all Total Score: 2 Self-Efficacy 60-Day Re-eval Assessment We would like to know how confident you are in doing certain activities. Please select your confidence level for:: Select your confidence level for the following using the scale 1-10 where 1 is not at all confident and 10 is totally confident. Your score is the average of all 6 responses. Fatigue: How confident are you that you can keep the fatigue caused by your disease from interfering with the things you want to do? Select Number: 8 Physical Discomfort or Pain: How confident are you that you can keep the physical discomfort or pain of your disease from interfering with the things you want to do? Select Number: 7 Emotional Distress: How confident are you that you can keep the emotional distress caused by your disease from interfering with the things you want to do? Select Number: 9 Other Symptoms or Health Problems: How confident are you that you can keep other symptoms or health problems from interfering with the things you want to do? Select Number: 9 Different Tasks and Activities: How confident are you that you can do the different tasks and activities needed to manage your health condition so as to reduce your need to see a doctor? Select Number: 8 Medication: How confident are you that you can do things other than just taking medication to reduce how much your illness affects your everyday life? Select Number: 8 Total Score:: 8 Nutrition Survey
== END 2021-08-29 23:59 ==
LOC: PR 14:30
PROVIDERS: PCP Internal Medicine; Referring Provider Internal Medicine Critical Care Medicine; Visit Provider Internal Medicine Critical Care Medicine
DX: J44.9 Chronic obstructive pulmonary disease, unspecified (principal); F17.210 Nicotine dependence, cigarettes, uncomplicated; G47.33 Obstructive sleep apnea (adult) (pediatric)
CPT/HCPCS: 97150; G0424

== ENCOUNTER 2021-09-06 14:30 | Outpatient (RCR) | payer MEDICARE, OTHER, SELFPAY ==
--- NOTE | 2021-09-20 13:01 | PCM.PR.TP ---
Exercise - Final Assessment - Physician Prescribed Exercise Modalities: Treadmill, NuStep Frequency (days/week): 3 Duration (Minutes):: 41:36 Aerobic Exercise [30-60 min 3-7x/week]:: Met Target heart rate: 100-130 Emily-14 METs - Progression: 0.5-1.0 MET, RPE 11-14 WEEK: 7.5 - Last attended 09/06/2021 - Home Exercise Home Exercise:: Yes Time (minutes):: 30 - walking Disease Management - Final - Hypoxemia Final Assessment: Demonstrates knowledge of O2 Rx with exercise - Medications Medication list reviewed:: Yes Taking medications 100% of the time:: Met Medication reassessment: Yes Pt demonstrates correct technique timing for MDI, Yes Pt demonstrates correct technique timing for DPI, Yes Pt demonstrates correct technique timing for NEB, Yes Pt demonstrates correct technique timing for spacer - Bronchial Hygiene Bronchial Hygiene Plan: Yes Pt demonstrates correctly for effective cough, Yes Pt demo correct for device, Yes Pt demo correct for improved hydration, Yes Pt demo correct for hand hygiene, Yes Pt demo correct for verbalize when to call MD Psychosocial - Final Assess - Assessment Depression reassess: Management of stress: Met, Management of depression: Met, Practicing interventions: Met Tobacco - Initial Assessment Tobacco - 30-Day Assessment Tobacco - 60-Day Assessment Tobacco - 90-Day Assessment Tobacco - Final Assessment - Stage of Change Stages of Change:: Pre-contemplation - Learning Barriers Learning Barriers: Participates in education - Family Support Do you have family support?: Yes - Tobacco Use Tobacco Use: Cigarettes How many cigarettes do you smoke per day?: 20 - Patient continues to smoke, reports down to 1 pack per day. Do you use smokeless tobacco?: No - Intervention Smoking Cessation Referral:: Yes Individual Education/Counseling:: Yes Education Schedule Given:: Yes - Education Education Goal Reached?: No - Patinet made little attempt to quit smoking. Nutrition/Wt Mgmt - Final - Weight Management Weight:: 181 lb 8 oz Weight Goals Progress:: Goal met Patient Health Questionnaire Discharge Assessment 1. Little interest or pleasure in doing things: Not at all 2. Feeling down, depressed, or hopeless: Not at all 3. Trouble falling or staying asleep, or sleeping too much: Not at all 4. Feeling tired or having little energy: Several days 5. Poor appetite or overeating: Not at all 6. Feeling bad about yourself -- or that you are a failure or have let yourself or your family down: Several days 7. Trouble concentrating on things, such as reading the newspaper or watching television: Not at all 8. Moving or speaking so slowly that other people could have noticed. Or the opposite - being so fidgety or restless that you have been moving around a lot more than usual: Not at all 9. Thoughts that you would be better off , or of hurting yourself in some way: Not at all How difficult have these problems made it for you to do your work, take care of things at home, or get along with other people?: Not difficult at all Total Score: 2 Self-Efficacy Discharge Assessment We would like to know how confident you are in doing certain activities. Please select your confidence level for:: Select your confidence level for the following using the scale 1-10 where 1 is not at all confident and 10 is totally confident. Your score is the average of all 6 responses. Fatigue: How confident are you that you can keep the fatigue caused by your disease from interfering with the things you want to do? Select Number: 8 Physical Discomfort or Pain: How confident are you that you can keep the physical discomfort or pain of your disease from interfering with the things you want to do? Select Number: 7 Emotional Distress: How confident are you that you can keep the emotional distress caused by your disease from interfering with the things you want to do? Select Number: 9 Other Symptoms or Health Problems: How confident are you that you can keep other symptoms or health problems from interfering with the things you want to do? Select Number: 9 Different Tasks and Activities: How confident are you that you can do the different tasks and activities needed to manage your health condition so as to reduce your need to see a doctor? Select Number: 7 Medication: How confident are you that you can do things other than just taking medication to reduce how much your illness affects your everyday life? Select Number: 8 Total Score:: 8 Nutrition Survey - Nutrition Survey Discharge Have you lost >10 lbs over the past 2 months without trying?: No Are you following a special diet at home for diabetes, low fat, or low salt?: No Are you interested in meeting with a dietitian for help understanding your diet?: No Do you eat less than 3 meals a day?: Yes Do you eat fatty meats (almendarez, sausage, ribs, etc), fried foods, desserts, large amounts of salad dressings, margarine, butter, or cheese most days?: Yes Do you have food allergies? [Enter types in comment field]: No Do you eat in restaurants more than 3 times a week?: Yes Do you season food with salt, seasoning salt, or garlic salt?: Yes Do you used canned, boxed, frozen meals, or soups, seasoning packets?: No Total Score:: 4
== END 2021-09-28 23:59 ==
LOC: PR 14:30
PROVIDERS: PCP Internal Medicine; Referring Provider Internal Medicine Critical Care Medicine; Visit Provider Internal Medicine Critical Care Medicine
DX: J44.9 Chronic obstructive pulmonary disease, unspecified (principal); F17.210 Nicotine dependence, cigarettes, uncomplicated; G47.33 Obstructive sleep apnea (adult) (pediatric)
CPT/HCPCS: 97150; G0424

== ENCOUNTER → 2021-09-14 09:22 | Outpatient (CLI) | payer MEDICARE, OTHER, SELFPAY ==
--- NOTE | 2021-09-14 09:30 | RAD_ITS ---
STUDY: X-RAY CHEST REASON FOR EXAM: Male, 66 years old. ALMONTE TECHNIQUE: PA and lateral views of the chest. COMPARISON: None. FINDINGS: Status post median sternotomy. The lungs are clear and expanded. There is no demonstrated pleural abnormality. Normal size heart. Normal mediastinum and fabricio. Normal visualized pulmonary arteries. Normal visualized aortic arch and descending thoracic aorta. Normal visualized thoracic spine. Normal visualized ribs, clavicles, and shoulders. There is no demonstrated abnormality of the visualized soft tissue structures of the upper abdomen. RAD/Chest PA and Lateral IMPRESSION: No active disease. Electronically Signed: Efren Meredith MD at 10:37 EST Tel , Service support ,
[2021-09-14 11:13] LABS: Absolute Lymphocyte Count 1.55 X10^3/uL (0.83-4.51); Absolute Neutrophil Count 6.6 X10^3/uL (2.0-7.7); Basophil# 0.06 X10^3/uL; Basophil% 0.7 % (0-1); Eosinophils% 1.1 % (0-5); Hematocrit 40.9 % (40-54); Hemoglobin 14.3 g/dL (13.0-16.5); Lymphocyte # 1.55 X10^3/ul (0.83-4.51); Lymphocyte % 17.3 % (19-41); Mean Corpuscular Volume 88.5 fL (80-94); Mean Platelet Vol. 9.8 fl (6.2-12.0); Monocyte# 0.61 X10^3/uL; Monocyte% 6.8 % (0-10); NRBC Flagged by Analyzer 0 % (0-5); Neutrophil # 6.63 X10^3/uL (2.7-7.7); Neutrophil % 73.9 % (47-70); Platelet Count 237 K/mm3 (150-450); RBC Distribution Width CV 13.2 % (11.6-14.6); RBC Distribution Width SD 42.9 fl (35.1-43.9); Red Blood Count 4.62 M/mm3 (4.6-6.2)
[2021-09-14 11:23] LABS: International Normalized Ratio 0.9; Prothrombin Time (Protime)PT. 11.9 SECONDS (11.7-14.9)
[2021-09-14 11:40] LABS: Anion Gap 5 (5-15); BUN 18 mg/dL (7-18); BUN/Creat Ratio 11.5 RATIO (10-20); Calcium,Total 9.7 mg/dL (8.5-10.1); Chloride 103 mmol/L (98-107); Creatinine, Serum 1.57 mg/dL (0.70-1.30); EST Glomerular Filtration Rate 47 mL/min (>60); Est Glom Filt Rate - Afr Amer 57 mL/min (>60); Glucose 101 mg/dL (74-106); Sodium Level 139 mmol/L (136-145)
== END ==
PROVIDERS: PCP Internal Medicine; Referring Provider Physician Assistant Medical; Visit Provider Physician Assistant Medical
DX: I25.709 Atherosclerosis of coronary artery bypass graft(s), unspecified, with unspecified angina pectoris (principal); E78.5 Hyperlipidemia, unspecified; I10 Essential (primary) hypertension
CPT/HCPCS: 36415; 71046; 80048; 85025; 85610

== ENCOUNTER 2021-09-29 12:01 | Observation (INO) | payer MEDICARE, OTHER, SELFPAY ==
[2021-09-22 13:29] LABS: Anion Gap 4 (5-15); BUN 13 mg/dL (7-18); Calcium,Total 9.5 mg/dL (8.5-10.1); Chloride 107 mmol/L (98-107); Creatinine, Serum 1.44 mg/dL (0.70-1.30); EST Glomerular Filtration Rate 52 mL/min (>60); Est Glom Filt Rate - Afr Amer 63 mL/min (>60); Glucose 96 mg/dL (74-106); Potassium 3.8 mmol/L (3.5-5.1); Sodium Level 141 mmol/L (136-145)
[2021-09-28 09:03] VITALS: BMI 29.0
[2021-09-29] VITALS (15 sets, daily range): BP systolic 131–153; BP diastolic 76–103; PULSE 42–78; RESP 16–19; TEMP 36.4–36.7; O2SAT 93–99; BMI 29.0
--- NOTE | 2021-09-29 08:25 | PCM.HP.BLA ---
History and Physical Date of Admission: 09/29/21 [facility] [id number] [place], [place] [id number] MR#:[id number]: RAISA SMILEY #[id number]:[id number] Provider: RENEE Vyas/Sex: 66/M [facility] H[facility] HPI History of Present Illness Surgical H&P: Yes Details: This is a 66-year-old gentleman that presents here today for an urgent appointment for increased shortness of breath. The patient has an extensive cardiac history with a history of hypertension, hypercholesterolemia, coronary artery disease status post two-vessel bypass surgery 1995 with receiving a STEPHENS to the LAD, and a saphenous vein graft to the diagonal. He did not have a myocardial infarction at that time. Subsequent catheterization since then demonstrated an occluded saphenous vein graft to the diagonal, and he has had multiple stents to his left circumflex and right coronary artery last one occurring in 2007. In 2000 he had a bare-metal Bx Velocity stent to the RCA and again in 2004 stenting to the circumflex. On 01/05/2006 he underwent drug-eluting stent to the left circumflex receiving a 2.75X 18 Taxus, but could not advance a second Taxus stent to the proximal circumflex around the previously placed Taxus stent in the mid circumflex. He underwent successful angioplasty of the RCA with a drug-eluting stent receiving a 2.75 x [address] Promus Synergy [address] Regan at [facility] on 06/19/08. Pt notes that he is more more SOB with any type of activity. He feels that this has worsened since April. He is having chest discomfort. He does not have any NTG. He feels like he did prior to having his bypass surgery. He does sometimes have lightheadedness with his positional changes. Sometimes at night he feels that his HR is high. He notes that this wakes him up. He does use O2 at night. He does not have edema. He does not have any claudication issues. He was in pulmonary rehab and had chest discomfort during activity. 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 Accompanied by: Self Allergies levofloxacin [From LevMuciMed] Adverse Reaction (Severe, Verified 09/14/21 08:30) tendonitis Medications aspirin 81 mg tablet,delayed release 81 mg PO QDAY 04/23/18 [History Confirmed 09/14/21] metoprolol tartrate 50 mg tablet 50 mg PO BID #180 tab 09/30/19 [Rx Confirmed 09/14/21] potassium chloride 8 mEq capsule,extended release 8 meq PO DAILY 07/07/20 [History Confirmed 09/14/21] budesonide-formoterol HFA 160 mcg-4.5 mcg/actuation aerosol inhaler 2 puff INHALATION BID #3 device 10/27/20 [Rx Confirmed 09/14/21] omeprazole 20 mg capsule,delayed release 20 mg PO BID 05/11/21 [History Confirmed 09/14/21] losartan 50 mg tablet 50 mg PO QDAY #30 tab 07/12/21 [Rx Confirmed 09/14/21] rosuvastatin 40 mg tablet 40 mg PO DAILY #90 tab 07/19/21 [Rx Confirmed 09/14/21] albuterol sulfate 90 mcg/actuation aerosol inhaler 2 puff INHALATION Q6H PRN #8.5 g 08/05/21 [Rx Confirmed 09/14/21] clopidogrel 75 mg tablet 75 mg PO DAILY #30 tab 09/14/21 [Rx Confirmed 09/14/21] isosorbide mononitrate 30 mg tablet,extended release 24 hr 30 mg PO DAILY #30 tab 09/14/21 [Rx Confirmed 09/14/21] nitroglycerin 0.4 mg sublingual tablet 0.4 mg SUBLINGUAL Q5M PRN #25 tab 09/14/21 [Rx Confirmed 09/14/21] PFSH Medical History Alcohol use Arthritis Atherosclerosis of coronary artery bypass graft without angina pectoris Atherosclerosis of coronary artery of [place] heart without angina pectoris Cardiology follow-up encounter Chronic bronchitis COPD (chronic obstructive pulmonary disease) DDD (degenerative disc disease), lumbar Easy bruising Excessive bleeding Gastric reflux High cholesterol History of diverticulitis History of echocardiogram History of stress test History of ulceration Hyperlipidemia Hypertension Hypertension Marijuana use Nicotine dependence On home oxygen therapy Osteoarthritis Shortness of breath on exertion Smoker Surgical History H/O coronary artery bypass surgery (10/14/96) History of appendectomy History of cardiac catheterization History of colectomy History of coronary artery stent placement History of left knee replacement History of partial colectomy History of tonsillectomy Hx of left cataract extraction Hx of right cataract extraction S/p bilateral carpal tunnel release Family History Father CAD (coronary artery disease) Social History Smoking Status: Current every day smoker tobacco type: cigarettes alcohol intake: current details: social substance use type: does not use caffeine: Yes what type of physical activity do you participate in: none seatbelt use: always do you feel safe at home: Yes ROS Const Const: Positive for fatigue; Negative for weakness, headache(s), frequent falls, excessive sweating, weight gain or weight loss Eyes Eyes: Negative for blind spots, loss of peripheral vision, transient loss of vision, blurry vision, change in vision or double vision ENT ENT: Negative for headache(s), dizziness, tinnitus, Nosebleed/epistaxis or balance problems Cardio Chest Pain: Yes Palpitations: Yes Edema: None Muscle aches with walking: None Resp Respiratory: Positive for SOB with activity; Negative for SOB at rest, SOB orthopnea\SOB lying down or Cough GI GI: Negative nausea, vomiting, heartburn, bloating, vomiting blood/hematemesis, bright, red blood in stools or black,tarry stools : Negative for hematuria Musc Musc: Negative for muscle aches/ myalgia, muscle weakness, joint pain or balance problems Skin Skin: Negative rash or wounds Neuro Neuro: Negative for dizziness, lightheadedness, near syncope, syncope, orthostatic symptoms, frequent falls, headache(s), weakness, confusion, memory loss, restless legs, blurry vision or double vision Mahin Hematologic/Lymphatic: Negative for easy bleeding or easy bruising Endo Endo: Positive for fatigue; Negative for cold intolerance, heat intolerance or excessive sweating Psych Psych: Negative for anxiety or depression Allergy Allergy/Immunology: Negative for rash Cardiology Exam Const Appearance: cooperative and no acute distress Orientation: alert and oriented x3 Head Head: normal to inspection Ears: hearing grossly normal bilaterally Nose: external nose normal Face and Sinus: face symmetric Eyes General: appearance normal, both eyes and all related structures Eyelids: eyelids normal Conjunctivae: conjunctivae normal Pupils: PERRL and pupil size EOM: EOM intact bilaterally Neck Neck: normal visual inspection Carotids: Negative bruit Chest Chest inspection: normal inspection of the chest and normal respiratory effort Auscultation: Bilateral: Clear to Auscultation Cardio Palpation: normal PMI Rate: regular rate Rhythm: regular rhythm Heart sounds: S1 normal and S2 normal; Negative rub, gallop or murmur GI GI: normal to inspection and soft; Negative no hepatosplenomegaly Neuro General: patient alert, patient oriented x3 and CN's II-XI intact bilaterally Skin Skin: no rashes or lesions noted Extremities Pulses: Normal: Right Posterior Tibial Pulse, Left Posterior Tibial Pulse, Right Radial Pulse and Left Radial Pulse Lower Extremity Edema: None: Bilateral Psych Psychological: normal affect Supplemental Info Supplemental Information Stress echocardiogram from 06/10/2020: Interpretation Summary The estimated ejection fraction is 65 %. Normal, adequate, dobutamine echocardiogram. Negative for ischemia by EKG and echocardiographic criteria. No anginal symptoms noted. Rare PVC, ventricular couplets and a ventricular triplet during infusion which is a nonspecific finding. Test terminated due to the attainment of target heart rate. Final LVEF is 75%. Appropriate blood pressure response to dobutamine. Decrease sensitivity due to poor echo windows requiring Definity agent. Patient tolerated procedure well. The study was technically difficult. Contrast injection was performed. Labs: LDL Cholesterol 57 mg/dL (0-130) HDL Cholesterol 63 mg/dL (40-) Triglycerides 96 mg/dL (-199) VLDL Cholesterol 19 mg/dL (5-40) Diagnostics: Echocardiogram Stress Echocardiogram Pulmonary: Pulmonary Function Test Pulmonary Exercise Test Assessment and Plan Assessment and Plan (1) Angina concurrent with and due to arteriosclerosis of coronary artery bypass graft: Status: Acute Orders: Orders: Left Heart Cath w/Grafts Today Basic Metabolic Profile (BMP) Today Prothrombin Time w/INR Today CBC W/Diff, Automated Today Chest PA and Lateral Today Plan - Amada Mahoney PA, PA: Patient had a stress test last year that was negative for ischemia. Concerned that patient's symptoms are angina related with his increasing shortness of breath, chest discomfort with exertion and his previous history of symptoms. Would like to pursue a diagnostic heart catheterization to further assess. Patient is agreeable with this. This is scheduled for September [address] Giles. Patient will be started on Plavix, isosorbide and be given nitroglycerin. He will continue with his aspirin, losartan and metoprolol. He is also on high intensity statin (2) Hypertension: Status: Chronic Qualifiers: Hypertension type: essential hypertension Qualified Code(s): I10 - Essential (primary) hypertension Orders: Orders: Left Heart Cath w/Grafts Today Basic Metabolic Profile (BMP) Today Prothrombin Time w/INR Today CBC W/Diff, Automated Today Chest PA and Lateral Today Plan - Amada DURAN PA: Blood pressure is well controlled on current medications, we do not recommend any changes at this time. (3) Hyperlipidemia: Status: Chronic Qualifiers: Hyperlipidemia type: unspecified Qualified Code(s): E78.5 - Hyperlipidemia, unspecified Orders: Orders: Left Heart Cath w/Grafts Today Basic Metabolic Profile (BMP) Today Prothrombin Time w/INR Today CBC W/Diff, Automated Today Chest PA and Lateral Today Plan - Amada DURAN PA: Patient will continue with high intensity statin. Plan Details Other Medications: New: isosorbide mononitrate ER 30 mg PO DAILY 30 tabs 11RF clopidogrel (Plavix) 75 mg PO DAILY 30 tabs 11RF nitroglycerin do not exceed 3 doses per episode 0.4 mg sublingual Q5M PRN 25 tabs 3RF chest pain Other Orders: Orders: 12 Lead EKG performed by [facility] Today R06.00 Prothrombin Time w/INR Today I25.810 Follow Up: 09/14/21 (keep as is) COVID (Procedure Consent) Procedure Criteria Procedure Criteria: Yes Elective The surgeon/proceduralist and patient have discussed in detail the risk of exposure to and/or potential harm posed by the COVID-19 virus with having a surgery/procedure at this time versus the risk of delaying the surgery/procedure. It is not possible to know either the risk of delaying the surgery or procedure or chance of getting an infection with perfect accuracy, but a joint decision was made between the patient and the surgeon/proceduralist to proceed at this time with the scheduled surgery/procedure as indicated on the consent form. Coding Level of Care Code Off vis,est,level 4 Diagnoses Angina concurrent with and due to arteriosclerosis of coronary artery bypass graft I25.709 Hypertension I10 Hypertension type: essential hypertension Hyperlipidemia E78.5 Hyperlipidemia type: unspecified Coding Level of Care Code Off vis,est,level 4 Diagnoses Angina concurrent with and due to arteriosclerosis of coronary artery bypass graft I25.709 Hypertension I10 Hypertension type: essential hypertension Hyperlipidemia E78.5 Hyperlipidemia type: unspecified 09/14/21 0939<Electronically signed by Amada DURAN>Date Amada DURAN [facility] Signature:Date (if applicable) CC: Dr. George Vázquez MD ~ Assessment & Plan Addt'l Comments I have re-examined the patient. There are no clinical changes since date of exam
[2021-09-29] MEDS: 0.9% Normal Saline 1,000 ML 150 ML IV (12:00)
--- NOTE | 2021-09-29 12:15 | EKG12_ITS ---
Test Reason : AM EKG Blood Pressure : / mmHG Vent. Rate : 067 BPM Atrial Rate : 067 BPM P-R Int : 136 ms QRS Dur : 136 ms QT Int : 420 ms P-R-T Axes : 058 -59 -24 degrees QTc Int : 443 ms Sinus rhythm with Premature atrial complexes Left axis deviation Right bundle branch block Abnormal ECG When compared with ECG of 12-AUG-2012 15:32, Premature atrial complexes are now Present Right bundle branch block is now Present Confirmed by SUBHASH LOPEZ, MOHAMUD ([id number]), editor house organ REBEL PRICE ([id number]) on 10/04/2021 10:01:54 A M Referred By: Mark Giles Confirmed By:ANNELISE CULLEN MD
--- NOTE | 2021-09-29 12:56 | CRPHASE1 ---
Patient Communication Former Patient:: Phase II - monitored [place] Phase II, where current cardiac problems were detected. PHII Cardiac Rehab Discussed with Patient:: Yes Guide to Cardiac Rehab Given to Patient:: Yes Cardiac Rehab Facility Choice List Given to Patient:: Yes Choice Program [facility] CR PHII:: Communication Given to CR, Refer to [facility] Installation Coordinator:: Mendy Latham Refer Phase II Cardiac Rehab:: Yes Sessions:: 36 sessions - 3 days/wk, 12 weeks Cardiac Rehabilitation Info Cardiac Rehabilitation Program Information: Cardiac Rehabilitation is important for patients like you who are recovering from a heart problem. Cardiac rehabilitation programs are recognized as integral to the continued care of the patient with coronary heart disease. The cardiac rehabilitation program is designed to optimize a patient's physical, psychological, and social functioning. Health career services representative work in cardiac rehabilitation programs and assist you with getting the treatments you need to get stronger and healthier - like exercise, healthy eating habits, and medications. Cardiac rehabilitation has been show to help people with heart problems live longer and have better life enjoyment than people who do not go to cardiac rehabilitation. Please contact the Cardiac Rehabilitation Program at [facility] at in two weeks if you have not heard from them.
--- NOTE | 2021-09-29 12:58 | CRPH1.INST_ITS ---
General Education CAD and cardiac anatomy and function:: Patient communicates acknowledgment - patient had been participating in pul rehab where his cardiac issues were detected and reported to Dr. Giles. Explanation of diagnoses and procedures:: Patient communicates acknowledgment Sign/Symptoms of MT:: Patient communicates acknowledgment Antiplatelet therapy: Patient communicates acknowledgment Proper use of NTG-SL: Patient communicates acknowledgment Emergency procedures and activation of EMS: Patient communicates acknowledgment Compliance of all prescribed medications: Patient communicates acknowledgment Smoking Patient Nicotine/Smoking Risk Factors Are:: Cigarettes Recommendations Include:: Smoking cessation strategies/Smoking packet, Second- hand smoke recommendation, Participation in a smoking cessation program Nicotine/Smoking Response Code:: Patient communicates acknowledgment, Needs reinforcement - Nicotine replacement therapy suggested to patient due to both pulmonary and cardiac health issues complicated by smoking. Dyslipidemia Patient Dyslipidemia Risk Factors Are:: Total Cholesterol, Triglycerides, HDL, LDL Dyslipidemia Response Code:: Patient communicates acknowledgment Hypertension Recommendations Include:: Maintain BP <130/85, DASH dietary guidelines, Decrease/maintain normal body weight Hypertension:: Patient communicates acknowledgment Heart Disease Patient Heart Disease Risk Factors Are:: Family history of heart disease < 65 years old, Previous cardiac event Recommendations Include:: Educated family members of their risk, Educated family members of importance of prevention of heart disease Heart Disease Response Code:: Patient communicates acknowledgment Stress Recommendations Include:: Identification of stressors, and assessment of coping skills, Stress management techniques Stress Response Code:: Patient communicates acknowledgment
[2021-09-29] MEDS: Albuterol 2.5 MG/3 ML VIAL.NEB. INHALATION ×2 (13:29→19:13)
[2021-09-29] MEDS: Budesonide Respules 0.5 MG/2 ML AMPUL.NEB. INHALATION ×2 (13:29→19:13)
--- NOTE | 2021-09-29 13:58 | CL.I_ITS ---
Patient Name: RAISA SMILEY Study Date: 09/29/2021 Performing: Ruddy Latham MD Ht: 67 inches 170 cm : 1955 Wt: 185.4 lbs 84 kg Age: 66 Gender: male BSA: 1.96 PROCEDURE(S) PERFORMED DC11-AO ROOT ANGIO WITH HEART CATH [id number] W OR WO PTCA, SINGLE CORONARY ARTERY CLINICAL PROFILE AND CO-MORBIDITIES Indications: Worsening Angina Heart Failure: None Stress/Imaging Stress/Image Study Performed: No CAD Presentations: Unstable angina. CONCLUSIONS JOEY to RCA as described with residual narrowing as described. RECOMMENDATIONS DESCRIPTION OF PROCEDURE The patient arrived to the procedure lab. The risks and benefits of the procedure as well as a full d escription of our services here and current unavailability of surgical backup were fully explained to the patient and/or their significant other prior to the catheterization. The Timeout was completed, verifying the correct patient and procedure. The patient's procedural site was prepped and draped in the usual fashion. Local anesthetic was given subcutaneously to right groin region with Lidocaine 2% Using a modified Seldinger technique,arterial access was obtained via the right femoral artery, a 4Fr sheath was inserted Left Coronary Artery selective angiography was performed in multiple views using a 4 Fr. JL5 catheter. Right Coronary Artery selective angiography was then performed in multiple vie ws using a 4 Fr. 3DRC catheter. Left internal mammary artery graft to the LAD selective angiography w as performed in multiple views using a 4 Fr. JR4 catheter, unsuccessful. Left Ventriculography was performed in LINTON projection using a 4 Fr. Pigtail catheter. LV to AO pullback pr essures were then recorded. Ascending (root) aorta selective angiography was then performed in single view. Ascending (root) aorta selective angiography was then performed in single view. Left internal mammary artery graft to the LAD selective angiography was performed in multiple views using a 4 Fr. I M catheter.The images were reviewed and options discussed. A decision was then made to proceed with a n Intervention, IVUS or other adjunct procedure. Arterial sheath was exchanged for a 6 Fr Sheath. JR 4 Guide catheter was inserted and engaged int o the RCA. BMW Guide wire was advanced to the RCA. 2.25x12 Emerge Balloon catheter was inserted. Ball oon catheter was advanced across lesion in the right coronary, distal. PTCA balloon inflated at 10 at ms for 18 secs. PTCA balloon inflated at 10 atms for 10 secs. Balloon catheter was repositioned to ad ditional lesion in the right coronary, proximal. PTCA balloon inflated at 12 atms for 14 secs. PTCA b alloon inflated at 12 atms for 12 secs. PTCA balloon inflated at 12 atms for 13 secs. 2.5x22 Orsiro D rug Eluting stent was inserted. Drug Eluting stent was advanced across the lesion in the right draper ry, distal. Angiogram performed post stent deployment. Drug Eluting stent was advanced across the les ion in the right coronary, proximal. 2.5x15 NC Emerge Balloon catheter was inserted. Balloon catheter was inserted post stent. 2.5x12 Emerge Balloon catheter was inserted. Balloon catheter was advanced across lesion in the right coronary, distal. Runthrough Guide wire was inserted as a bud dy wire 2.5x12 Emerge Balloon catheter was inserted over Runthrough wire 1.5x15 Emerge Balloon cathet er was inserted on BMW wire Balloon catheter was advanced across lesion in the right coronary, distal . 2.5x12 Emerge Balloon catheter was reinserted Balloon catheter was advanced across lesion in the ri ght coronary, distal. Balloon catheter was repositioned to additional lesion in the right coronary, p roximal. PTCA balloon inflated at 14 atms for 18 secs. PTCA balloon inflated at 14 atms for 14 secs. PTCA balloon inflated at 14 atms for 18 secs. 3x10 [place] Cutting balloon catheter was inserted 3x 10 [place] Cutting balloon catheter was inserted Cutting balloon catheter was advanced to the lesio n in the right coronary, proximal. Cutting balloon catheter was advanced to the lesion in the right c oronary, proximal. 2.5x15 NC Emerge Balloon catheter was inserted. Balloon catheter was advanced across lesion in the right coronary, proximal. PTCA balloon inflated at 20 atms for 65 secs. Angiogram performed post balloon dilatation. PTCA balloon inflated at 20 atms for 13 secs. PTCA ball oon inflated at 20 atms for 12 secs. PTCA balloon inflated at 20 atms for 17 secs. PTCA balloon infla tabitha at 20 atms for 35 secs. PTCA balloon inflated at 20 atms for 13 secs. Angiogram performed post ba lloon dilatation. PTCA balloon inflated at 20 atms for 18 secs. PTCA balloon inflated at 20 atms for 16 secs. PTCA balloon inflated at 20 atms for 16 secs. PTCA balloon inflated at 20 atms for 13 secs. Angiogram performed post balloon dilatation. 3x20 NC Emerge Balloon catheter was inserted. Balloon ca theter was advanced across lesion in the right coronary, proximal. PTCA balloon inflated at 20 atms f or 20 secs. PTCA balloon inflated at 20 atms for 42 secs. PTCA balloon inflated at 20 atms for 19 sec s. PTCA balloon inflated at 20 atms for 38 secs. Angiogram performed post balloon dilatation. 3x30 Orsiro Drug Eluting stent was inserted. Drug Eluting stent was advanced across the l esion in the right coronary, proximal. Angiogram performed post stent deployment. 3x20 NC Emerge Ball oon catheter was inserted. Balloon catheter was inserted post stent. Balloon catheter was advanced ac ross lesion in the right coronary, proximal. Angiogram performed post balloon dilatation. Angiogram p erformed post stent deployment. Angiogram performed post stent deployment. Contrast was injected thro ugh the sheath and the Right Iliac and Femoral artery were assessed for possible closure device. The arterial sheath was pulled and a Perclose closure device was deployed for hemostasis INTERVENTION INFORMATION LESION SITE: RCA (Distal) Lesion Complexity: High/C, chronic total occlusion: No, lesion at bifurcation: No, thrombus present: No, lesion length: 18 mm, culprit lesion: Yes, Previously treated lesion: No Pre Stenosis: 80 % Pre intervention CHANDA flow: 3 PROCEDURE: Drug Eluting Stent with pre and post dilatation These was a waist during stent deployment. We were only able to get a 1.5 mm balloon into the stent f or post dilatation despite mulptiple attempts, using a na wire etc. This was inflated to 14 lisbet. Post Stenosis: 40 % Post intervention CHANDA flow: 3 Lesion Devices: Quintanilla .014 BMW Evangeline Straight 190cm Medtronic 6 Fr JR4.0 100cm Guide Catheter Valentin Sci EMERGE MR 2.25x12 BALLOON Biotronik Orsiro MR JOEY 2.5x22 Valentin Sci NC EMERGE MR 2.50x15 BALLOON Valentin Sci EMERGE MR 2.50x12 BALLOON Terumo .014 Runthrough Extra Floppy 180cm straight Valentin Sci EMERGE MR 1.50x15 BALLOON LESION SITE: RCA (Proximal) Lesion Complexity: High/C, chronic total occlusion: No, lesion at bifurcation: No, thrombus present: No, lesion length: 26 mm, culprit lesion: Yes, Previously treated lesion: Yes, In-stent restenosis: Y es, Timeframe of previous treatment: Time unknown, Previously treated with a stent: Yes Stent Type: w ith stent type unknown Pre Stenosis: 90 % Pre intervention CHANDA flow: 3 PROCEDURE: Drug Eluting Stent with pre and post dilatation Cutting Balloon Angioplasty The lesion was predilated with a 2.25, then a 2.5mm, then a 3.0 nc balloon. Cutting balloon angioplas ty was also performed. There was good balloon expansion but residual stenosis after but not during ba lloon inflation. We then deployed the stent and post dilated multiple times with an nc balloon inflat ed to 22 lisbet with good expansion but recoil after the balloon was deflated. There was CHANDA 3 flow and we felt that deploying another stent to provide more radial support may actually increase the risk o ff stent thrombosis due to the amount of metal at this location. The procedure and the results weere explained to the patient, his and his daughter who was on the speaker phone. We will switch from plavix to brilinta to decrease the risk of stent thrombosis and watch him overnight. If he does well , we will get a CT surgery consult or a second opinion from interventional carrdiology at a location with CT surgery back up. Post Stenosis: 40 % Post intervention CHANDA flow: 3 Lesion Devices: Quintanilla .014 BMW Evangeline Straight 190cm Medtronic 6 Fr JR4.0 100cm Guide Catheter Valentin Sci EMERGE MR 2.25x12 BALLOON Valentin Sci NC EMERGE MR 2.50x15 BALLOON Valentin Sci EMERGE MR 2.50x12 BALLOON Terumo .014 Runthrough Extra Floppy 180cm straight Valentin Sci [place] cutting balloon 3.0x10 Valentin Sci NC EMERGE MR 3.00x20 BALLOON Biotronik Orsiro MR JOEY 3.0x30 COMPLICATIONS No Complications PROCEDURE MEDICATIONS Versed 1 mg IV Versed 1 mg IV Fentanyl 50 mcg IV Versed 1 mg IV Fentanyl 50 mcg IV Oxygen: 2 L/min via nasal cannula Brilinta 180 mg PO @ 09/29/2021 11:20:05 Heparin 7000 unit(s) IV 09/29/2021 09:46:41 Heparin 2000 unit(s) IV 09/29/2021 10:41:43 SUMMARY OF HEMODYNAMIC DATA Time AIR REST ECG 07:31:05 ECG 08:26:26 Art 160/77 (103) 08:46:49 AO 139/81 (100) SA 08:48:40 LV 155/1, 22 09:07:34 LV 153/-4, 19 09:07:40 LV 154/-8, 15 09:09:21 LVp 153/-14, 13 09:09:26 AOp 155/76 (112) 09:09:31 AO 153/78 (111) 09:09:32 Signed By Ruddy Latham MD On 09/29/2021 13:57:48 Ruddy Latham MD
[2021-09-29] MEDS: Acetaminophen 325 MG Tablet 650 MG PO (15:45)
[2021-09-29] MEDS: Potassium Chloride Oral Tablet 10 MEQ PO (15:49)
--- NOTE | 2021-09-29 19:45 | CL.D_ITS ---
Patient Name: RAISA SMILEY Study Date: 09/29/2021 Performing: Mark Giles MD Ht: 67 inches 170 cm : 1955 Wt: 185.4 lbs 84 kg Age: 66 Gender: male BSA: 1.96 PROCEDURE(S) PERFORMED IN55-IUT/COR/LV/CABG DC11-AO ROOT ANGIO WITH HEART CATH [id number] W OR WO PTCA, SINGLE CORONARY ARTERY CLINICAL PROFILE AND INDICATIONS Indications: Worsening Angina, Worsening Angina, Suspected CAD Heart Failure: None Stress/Imaging Stress/Image Study Performed: No Stress/Image Study Performed: No Angina Classification Anginal Classification w/in 2 Weeks: CCS III CAD Presentations: Unstable angina. Other: worsening angina pectoris CONCLUSIONS Elevated Left Ventricular End Diastolic Pressure Normal LV size, wall motion,and systolic function LVEF: by LV gram 55 % [place] Multivessel CAD STEPHENS to LAD: patent SVG to DX1: previously reported as chronically occluded and not reevaluated during this examination RECOMMENDATIONS Risk factor modification Medical therapy Referred for immediate PCI Case discussed / reviewed with Dr. Latham of Interventional Cardiology DESCRIPTION OF PROCEDURE The patient arrived to the procedure lab. The risks and benefits of the procedure as well as a full d escription of our services here and current unavailability of surgical backup were fully explained to the patient and/or their significant other prior to the catheterization. The Timeout was completed, verifying the correct patient and procedure. The patient's procedural site was prepped and draped in the usual fashion. Local anesthetic was given subcutaneously to right groin region with Lidocaine 2%. Using a modified Seldinger technique, arterial access was obtained via the right femoral artery, a 4 Fr sheath was inserted Left Coronary Artery selective angiography was performed in multiple views us ing a 4 Fr. JL5 catheter. Right Coronary Artery selective angiography was then performed in multiple views using a 4 Fr. 3DRC catheter. Left internal mammary artery graft to the LAD selective angiograph y was performed in multiple views using a 4 Fr. JR4 catheter, unsuccessful. Left Ventriculography was performed in LINTON projection using a 4 Fr. Pigtail catheter. LV to AO pullback pr essures were then recorded. Ascending (root) aorta selective angiography was then performed in single view. Ascending (root) aorta selective angiography was then performed in single view. Left internal mammary artery graft to the LAD selective angiography was performed in multiple views using a 4 Fr. I M catheter.Contrast was injected through the sheath and the Right Iliac and Femoral artery were asses sed for possible closure device.The arterial sheath was pulled and a Perclose closure device was depl oyed for hemostasis CORONARY ANGIOGRAPHY DOMINANCE: Right Dominant LEFT HEART ASSESSMENT Left Ventricular Ejection Fraction: by LV Gram 55 % Normal LV wall motion Elevated Left Ventricular End Diastolic Pressure LVEDP: 19 mmHg LEFT MAIN: Angiographically normal LEFT ANTERIOR DESCENDING ARTERY: MID LAD: is occluded with the remainder of the vessel filling from the STEPHENS graft with no angiographi mika significant appearing disease distal to the graft attachment CIRCUMFLEX ARTERY: PROX CIRC: Mild luminal irregularities MID CIRC: Previously placed stent has an instent hazy: eccentric: 75 % restenosis DISTAL CIRC: Previously placed stent is patent RIGHT CORONARY ARTERY: PROX RCA: Previously placed stent has an instent long: diffuse: 50 % restenosis DISTAL RCA: eccentric: 85 % Stenosis GRAFTS: STEPHENS graft to the Mid LAD is patent Saphenous Vein graft to the 1st Diagonal is previously reported as chronically occluded and not reeva luated during this examination AORTIC ROOT: Angiographically normal COMPLICATIONS No Complications PROCEDURE MEDICATIONS Versed 1 mg IV Versed 1 mg IV Fentanyl 50 mcg IV Versed 1 mg IV Fentanyl 50 mcg IV Oxygen: 2 L/min via nasal cannula Brilinta 180 mg PO @ 09/29/2021 11:20:05 Heparin 7000 unit(s) IV 09/29/2021 09:46:41 Heparin 2000 unit(s) IV 09/29/2021 10:41:43 SUMMARY OF HEMODYNAMIC DATA Time AIR REST ECG 07:31:05 ECG 08:26:26 Art 160/77 (103) 08:46:49 AO 139/81 (100) SA 08:48:40 LV 155/1, 22 09:07:34 LV 153/-4, 19 09:07:40 LV 154/-8, 15 09:09:21 LVp 153/-14, 13 09:09:26 AOp 155/76 (112) 09:09:31 AO 153/78 (111) 09:09:32 Signed By Mark Giles MD On 09/29/2021 7:44:59 PM Mark Giles MD
[2021-09-29] MEDS: Metoprolol Tartrate 50 MG Tablet PO (21:28)
[2021-09-29] MEDS: TICAGRELOR 90 MG TABLET PO (21:28)
[2021-09-29] MEDS: Atorvastatin Calcium 80 MG Tablet PO (21:28)
[2021-09-29] MEDS: Pantoprazole Sodium 20 MG Tablet PO (21:28)
[2021-09-30] VITALS (8 sets, daily range): BP systolic 130–154; BP diastolic 79–85; PULSE 48–71; RESP 16–18; TEMP 36.9–37; O2SAT 93–98
[2021-09-30] MEDS: Albuterol 2.5 MG/3 ML VIAL.NEB. INHALATION ×2 (04:05→06:41)
[2021-09-30 05:59] LABS: Absolute Lymphocyte Count 0.83 X10^3/uL (0.83-4.51); Absolute Neutrophil Count 5.6 X10^3/uL (2.0-7.7); Basophil# 0.03 X10^3/uL; Basophil% 0.4 % (0-1); Eosinophil# 0.09 X10^3/uL; Eosinophils% 1.3 % (0-5); Hematocrit 39.1 % (40-54); Lymphocyte # 0.83 X10^3/ul (0.83-4.51); Lymphocyte % 11.6 % (19-41); Mean Corp Hgb Conc 33.2 g/dL (32-36); Mean Corpuscular Hgb 30.4 pg (27.0-32.0); Mean Corpuscular Volume 91.4 fL (80-94); Mean Platelet Vol. 9.4 fl (6.2-12.0); Monocyte# 0.54 X10^3/uL; Monocyte% 7.5 % (0-10); NRBC Flagged by Analyzer 0 % (0-5); Neutrophil # 5.64 X10^3/uL (2.7-7.7); Neutrophil % 78.8 % (47-70); Platelet Count 193 K/mm3 (150-450); RBC Distribution Width SD 46.9 fl (35.1-43.9); Red Blood Count 4.28 M/mm3 (4.6-6.2); White Blood Count 7.2 K/mm3 (4.4-11.0)
[2021-09-30 06:38] LABS: AST(SGOT) 16 U/L (15-37); Alanine Aminotransfer ALT/SGPT 19 U/L (16-61); Albumin, Serum 3.2 g/dL (3.2-5.0); Alkaline Phosphatase 61 U/L (45-117); Anion Gap 7 (5-15); BUN 13 mg/dL (7-18); BUN/Creat Ratio 13.6 RATIO (10-20); Chloride 105 mmol/L (98-107); Creatinine, Serum 0.96 mg/dL (0.70-1.30); EST Glomerular Filtration Rate 83 mL/min (>60); Est Glom Filt Rate - Afr Amer 101 mL/min (>60); Estimated Creatinine Clearance 67.38 ml/min; Globulin 3.1 g/dL (2.2-4.2); Glucose 109 mg/dL (74-106); Potassium 3.7 mmol/L (3.5-5.1); Protein, Total 6.3 g/dL (6.4-8.2); Sodium Level 139 mmol/L (136-145)
[2021-09-30] MEDS: Budesonide Respules 0.5 MG/2 ML AMPUL.NEB. INHALATION (06:41)
[2021-09-30] MEDS: Potassium Chloride Oral Tablet 10 MEQ PO (07:43)
[2021-09-30] MEDS: Aspirin E.C. 81 MG Tablet PO (07:43)
--- NOTE | 2021-09-30 08:49 | PCM.DC ---
Discharge Instructions Diet Discharge Diet: Low fat / Low cholesterol Activity Discharge Activity: May Not Drive (x 48 hours), May Shower (Today) and May Take a Tub Bath (in 7 Days) Return to work on:: 10/04/21 May resume sexual activity in: 1-2 weeks Weight Bearing Status: - (Avoid heavy exertional activity for 1-2 weeks) Dressing / Incision Call your doctor if your incision/area has: Continuous Slow Oozing, Sudden Increased Bleeding, Increased Pain/ Swelling, Increased Redness, Foul Smelling Discharge and Swelling at the incision site Call your doctor if you observe: Fever of 101 or Higher, Shortness of breath, Fainting spells, Swelling in the ankles, Chest pain, Increased palpitations (irregular heartbeat), Calf discomfort and Uncontrolled pain Remove Dressing in: 1 day Cleanse incision/area with: Soap & Water Follow Up Care Please Follow Up With: Mark Giles MD When: 10/04/21: 3:30 PM Test Results: Test results from this visit will be discussed in further detail at your follow-up appointment, if applicable. Discharge Plan Admission Admit Date/Time: 09/29/21 12:01 Primary Reason for Your Visit: CAD Attending Provider: Mark Giles Primary Care Provider: George Vázquez Consulting Providers: Amada Mahoney Discharge Orders/Prescriptions Prescriptions: Continued aspirin [Adult Aspirin Regimen] 81 mg tablet,delayed release (DR/EC) 81 mg PO QDAY RF: 0 metoprolol tartrate 50 mg tablet 50 mg PO BID Qty: 180 RF: 3 budesonide-formoterol [Symbicort] 160-4.5 mcg/actuation HFA aerosol inhaler 2 puff INHALATION BID Qty: 3 RF: 3 albuterol sulfate 90 mcg/actuation HFA aerosol inhaler 2 puff INHALATION Q6H PRN (Reason: sob) Qty: 8.5 RF: 3 omeprazole 20 mg capsule,delayed release(DR/EC) 20 mg PO BID RF: 0 isosorbide mononitrate 30 mg tablet extended release 24 hr 30 mg PO DAILY Qty: 30 RF: 11 clopidogrel [Plavix] 75 mg tablet 75 mg PO DAILY Qty: 30 RF: 11 nitroglycerin 0.4 mg tablet, sublingual 0.4 mg sublingual Q5M PRN (Reason: chest pain) Qty: 25 RF: 3 losartan 50 mg tablet 50 mg PO QDAY Qty: 30 RF: 3 rosuvastatin 40 mg tablet 40 mg PO DAILY Qty: 90 RF: 3 potassium chloride 8 mEq capsule, extended release 8 meq PO TID RF: 0 Referrals / Follow Up: George Vázquez MD [Primary Care Provider] - Mark Giles MD [STAFF PHYSICIAN] -
--- NOTE | 2021-09-30 09:01 | DS.PCM_ITS ---
Providers Date of Admission: 09/29/21 Primary Care Physician: Dr. George Vázquez MD Reason For Visit: CP, DYSPNEA W/EXERTION, CAD, DABG, HTN, HLD Diagnosis Discharge Diagnosis (1) Atherosclerosis of coronary artery of [place] heart without angina pectoris: Status: Chronic Code(s): I25.10 - Atherosclerotic heart disease of [place] coronary artery without angina pectoris (2) Presence of stent in coronary artery: Status: Acute Code(s): Z95.5 - Presence of coronary angioplasty implant and graft (3) H/O coronary artery bypass surgery: Status: Chronic Code(s): Z95.1 - Presence of aortocoronary bypass graft (4) Hyperlipidemia: Status: Chronic Code(s): E78.5 - Hyperlipidemia, unspecified Qualifiers: Hyperlipidemia type: unspecified Qualified Code(s): E78.5 - Hyperlipidemia, unspecified (5) Hypertension: Status: Chronic Code(s): I10 - Essential (primary) hypertension Qualifiers: Hypertension type: essential hypertension Qualified Code(s): I10 - Essential (primary) hypertension Medications at Discharge Home Medications aspirin 81 mg tablet,delayed release 81 mg PO QDAY 04/23/18 metoprolol tartrate 50 mg tablet 50 mg PO BID #180 tab 09/30/19 budesonide-formoterol HFA 160 mcg-4.5 mcg/actuation aerosol inhaler 2 puff INHALATION BID #3 device 10/27/20 omeprazole 20 mg capsule,delayed release 20 mg PO BID 05/11/21 losartan 50 mg tablet 50 mg PO QDAY #30 tab 07/12/21 rosuvastatin 40 mg tablet 40 mg PO DAILY #90 tab 07/19/21 albuterol sulfate 90 mcg/actuation aerosol inhaler 2 puff INHALATION Q6H PRN #8.5 g 08/05/21 isosorbide mononitrate 30 mg tablet,extended release 24 hr 30 mg PO DAILY #30 tab 09/14/21 nitroglycerin 0.4 mg sublingual tablet 0.4 mg SUBLINGUAL Q5M PRN #25 tab 09/14/21 potassium chloride 8 mEq capsule,extended release 8 meq PO TID cap 09/15/21 clopidogrel [Plavix] 75 mg PO DAILY 09/30/21 Hospital Course Procedures Cardiac catheterization and - (Cardiac Intervention: RCA: PTCA/STENT) Summary of Care Provided Minutes Spent on Discharge: 45 Hospital Course: The patient presented to [facility] for evaluation of his CAD status with diagnostic cardiac catheterization. The patient subsequently underwent additional RCA PTCA/stent (proximal and distal). The patient was monitored overnight. He remained without any obvious adverse post procedure events. On this day he appeared to be stable for release home for continued outpatient cardiovascular follow-up. Of note, the patient's antiplatelet therapy was altered during hospitalization from clopidogrel/Plavix to ticagrelor/Brilinta. After receiving the initial dose of this the patient believes he felt somewhat more short of breath and dyspneic. He did not want to continue this medication and requested to be mclaughlin ged back to clopidogrel/Plavix. A discussion was held with the patient with respect to his concerns of chronic shortness of breath/dyspnea. He was informed that this appears to be a multi factorial/etiology symptom. 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 Also, based upon the patient's extensive underlying [place] vessel disease, etc., noting that the patient may require additional PCI to the RCA system as well as the LCx system, it was recommended the patient be referred to a tertiary care center for consideration for additional catheter-based revascularization procedures which may include atherectomy/Rotablator procedures which cannot be performed at [facility]. The patient was agreeable to this approach and requested that he be referred to the [facility] Main campus for additional high risk catheter-based evaluation/intervention procedures. Thus, a referral will be placed for the patient. If the patient returns to [facility] for concerns of progressive underlying CAD then he should be considered for referral to a tertiary care center such as [facility] for additional catheter-based evaluation/care. Physical Exam Const alert, oriented x3 and no apparent distress General Appearance: cooperative, comfortable, well kempt and well developed HEENT normocephalic, head/scalp atraumatic and hearing grossly normal bilaterally Eyes PERRL, EOMs intact bilaterally, conjunctivae normal and no scleral icterus Neck full ROM Chest Chest: midline sternotomy incision Resp normal respiratory effort Auscultation: wheezes expiratory wheezes and inspiratory wheezes Cardio regular rate, regular rhythm, S1 normal heart sound and S2 normal heart sound GI normal to inspection, nondistended, normoactive bowel sounds Extremity no pedal edema Peripheral Pulses: Yes femoral pulses present right (No bruits: No hematoma) 2+ Skin no rashes or lesions noted Psych mental status grossly normal Weight / BMI Weight Weight: 184 lb 8.43 oz Body Mass Index (BMI) 29.0 ABG / Lab / Microbiology Data Result Diagrams: 09/30/21 05:26 09/30/21 05:26 Laboratory: Laboratory Results - last 24 hr 09/30/21 05:26: WBC 7.2, RBC 4.28 L, Hgb 13.0, Hct 39.1 L, MCV 91.4, MCH 30.4, MCHC 33.2, RDW Std Deviation 46.9 H, RDW Coeff of Lisa 14.0, Plt Count 193, MPV 9.4, Immature Gran % (Auto) 0.400, Neut % (Auto) 78.8 H, Lymph % (Auto) 11.6 L, [place] % (Auto) 7.5, Eos % (Auto) 1.3, Baso % (Auto) 0.4, Absolute Neuts (auto) 5.6, Absolute Lymphs (auto) 0.83, Nucleated RBC % 0 09/30/21 05:26: Sodium 139, Potassium 3.7, Chloride 105, Carbon Dioxide 27.0, Anion Gap 7, BUN 13, Creatinine 0.96, Estim Creat Clear Calc 67.38, Est GFR (MDRD) Af Amer 101, Est GFR (MDRD) Non-Af 83, BUN/Creatinine Ratio 13.6, Glucose 109 H, Calcium 9.0, Total Bilirubin 0.90, AST 16, ALT 19, Alkaline Phosphatase 61, Total Protein 6.3 L, Albumin 3.2, Globulin 3.1, Albumin/Globulin Ratio 1.0 D/C Instructions Discharge Diet: Low fat / Low cholesterol Return to work on: 10/04/21 May resume sexual activity in: 1-2 weeks Weight Bearing Status: - (Avoid heavy exertional activity for 1-2 weeks) Call your doctor if your incision/area has: Continuous Slow Oozing, Sudden Increased Bleeding, Increased Pain/ Swelling, Increased Redness, Foul Smelling Discharge and Swelling at the incision site Call your doctor if you observe: Fever of 101 or Higher, Shortness of breath, Fainting spells, Swelling in the ankles, Chest pain, Increased palpitations (irregular heartbeat), Calf discomfort and Uncontrolled pain Cleanse incision/area with: Soap & Water Please Follow Up With: Mark Giles MD When: 10/04/21: 3:30 PM Meaningful Use Info Meaningful Use Diagnoses (Choose all that apply): None applicable Discharge Plan Admission Admit Date/Time: 09/29/21 12:01 Primary Reason for Your Visit: CAD Attending Provider: Mark Giles Primary Care Provider: George Vázquez Consulting Providers: Amada Mahoney Discharge Orders/Prescriptions Prescriptions: Continued aspirin [Adult Aspirin Regimen] 81 mg tablet,delayed release (DR/EC) 81 mg PO QDAY RF: 0 metoprolol tartrate 50 mg tablet 50 mg PO BID Qty: 180 RF: 3 budesonide-formoterol [Symbicort] 160-4.5 mcg/actuation HFA aerosol inhaler 2 puff INHALATION BID Qty: 3 RF: 3 albuterol sulfate 90 mcg/actuation HFA aerosol inhaler 2 puff INHALATION Q6H PRN (Reason: sob) Qty: 8.5 RF: 3 omeprazole 20 mg capsule,delayed release(DR/EC) 20 mg PO BID RF: 0 isosorbide mononitrate 30 mg tablet extended release 24 hr 30 mg PO DAILY Qty: 30 RF: 11 nitroglycerin 0.4 mg tablet, sublingual 0.4 mg sublingual Q5M PRN (Reason: chest pain) Qty: 25 RF: 3 losartan 50 mg tablet 50 mg PO QDAY Qty: 30 RF: 3 rosuvastatin 40 mg tablet 40 mg PO DAILY Qty: 90 RF: 3 potassium chloride 8 mEq capsule, extended release 8 meq PO TID RF: 0 No Action clopidogrel [Plavix] 75 mg tablet 75 mg PO DAILY RF: 0 Referrals / Follow Up: Mark Giles MD [STAFF PHYSICIAN] - George Vázquez MD [Primary Care Provider] -
[2021-09-30] MEDS: Isosorbide Mononitrate 30 MG Tablet PO (09:46)
[2021-09-30] MEDS: Metoprolol Tartrate 50 MG Tablet PO (09:46)
[2021-09-30] MEDS: Pantoprazole Sodium 20 MG Tablet PO (09:46)
[2021-09-30] MEDS: Losartan Potassium 50 MG Tablet PO (09:46)
[2021-09-30] MEDS: Clopidogrel Bisulfate 75 MG Tablet PO (09:48)
--- NOTE | 2021-09-30 10:00 | EKG12_ITS ---
Test Reason : POST PCI Blood Pressure : / mmHG Vent. Rate : 064 BPM Atrial Rate : 064 BPM P-R Int : 148 ms QRS Dur : 134 ms QT Int : 420 ms P-R-T Axes : 057 -66 -07 degrees QTc Int : 433 ms Sinus rhythm with Premature atrial complexes Left axis deviation Right bundle branch block Abnormal ECG No previous ECGs available Confirmed by SUBHASH LOPEZ, MOHAMUD ([id number]), acquisitions editor REBEL PRICE ([id number]) on 10/04/2021 10:02:23 A M Referred By: Mark Giles Confirmed By:ANNELISE CULLEN MD
--- NOTE | 2021-09-30 11:16 | PHA.DC.MR ---
Pharmacy Service has performed discharge medication reconciliation for this patient. No new medications at time of discharge review. Medications reviewed are from previously reported home medications. Home Medications aspirin 81 mg tablet,delayed release 81 mg PO QDAY 04/23/18 metoprolol tartrate 50 mg tablet 50 mg PO BID #180 tab 09/30/19 budesonide-formoterol HFA 160 mcg-4.5 mcg/actuation aerosol inhaler 2 puff INHALATION BID #3 device 10/27/20 omeprazole 20 mg capsule,delayed release 20 mg PO BID 05/11/21 losartan 50 mg tablet 50 mg PO QDAY #30 tab 07/12/21 rosuvastatin 40 mg tablet 40 mg PO DAILY #90 tab 07/19/21 albuterol sulfate 90 mcg/actuation aerosol inhaler 2 puff INHALATION Q6H PRN #8.5 g 08/05/21 isosorbide mononitrate 30 mg tablet,extended release 24 hr 30 mg PO DAILY #30 tab 09/14/21 nitroglycerin 0.4 mg sublingual tablet 0.4 mg SUBLINGUAL Q5M PRN #25 tab 09/14/21 potassium chloride 8 mEq capsule,extended release 8 meq PO TID cap 09/15/21 clopidogrel [Plavix] 75 mg PO DAILY 09/30/21 The patient's discharge medication list was reviewed for discrepancies and discrepancies were resolved.
== END 2021-09-30 10:23 | disposition home or self-care (01) ==
LOC: CLSP 12:57 → PCU 12:57
PROVIDERS: Physician Assistant Medical; Admitting Provider Specialist; PCP Internal Medicine; Referring Provider Internal Medicine Cardiovascular Disease; Visit Provider Internal Medicine Cardiovascular Disease
DX: I25.700 Atherosclerosis of coronary artery bypass graft(s), unspecified, with unstable angina pectoris (principal); E78.5 Hyperlipidemia, unspecified; I10 Essential (primary) hypertension; M19.90 Unspecified osteoarthritis, unspecified site; K21.9 Gastro-esophageal reflux disease without esophagitis; J44.9 Chronic obstructive pulmonary disease, unspecified; I45.10 Unspecified right bundle-branch block; I49.1 Atrial premature depolarization; R94.31 Abnormal electrocardiogram [ECG] [EKG]; M51.36 Other intervertebral disc degeneration, lumbar region; I25.82 Chronic total occlusion of coronary artery; F17.210 Nicotine dependence, cigarettes, uncomplicated; Z95.1 Presence of aortocoronary bypass graft; Z79.899 Other long term (current) drug therapy; Z79.02 Long term (current) use of antithrombotics/antiplatelets; Z99.81 Dependence on supplemental oxygen; Z79.82 Long term (current) use of aspirin
CPT/HCPCS: 36415; 80048; 80053; 85025; 92928; 93005; 93459; 93567; 94640; 96360; 96361; 99152; 99153; 99218; C1725; C1874; J7030; J7040; Q9967; C1760; C1769; C1887; C1894; C9600; G0378

== ENCOUNTER → 2021-10-07 08:09 | Outpatient (CLI) | payer MEDICARE, OTHER, SELFPAY ==
[2021-10-07 10:26] LABS: AST(SGOT) 17 U/L (15-37); Alanine Aminotransfer ALT/SGPT 27 U/L (16-61); Albumin, Serum 3.6 g/dL (3.2-5.0); Alkaline Phosphatase 67 U/L (45-117); Anion Gap 4 (5-15); BUN 19 mg/dL (7-18); BUN/Creat Ratio 17.1 RATIO (10-20); Bilirubin, Direct 0.13 mg/dL (0.00-0.30); Calcium,Total 9.5 mg/dL (8.5-10.1); Chloride 101 mmol/L (98-107); Cholesterol 128 mg/dL (200); Creatinine, Serum 1.11 mg/dL (0.70-1.30); EST Glomerular Filtration Rate 70 mL/min (>60); Est Glom Filt Rate - Afr Amer 85 mL/min (>60); Globulin 3.5 g/dL (2.2-4.2); Glucose 97 mg/dL (74-106); High Density Lipoprotein 58 mg/dL; Potassium 3.9 mmol/L (3.5-5.1); Protein, Total 7.1 g/dL (6.4-8.2); Sodium Level 139 mmol/L (136-145); Triglycerides 112 mg/dL; Very Low Density Lipoprotein 22 mg/dL (5-40)
== END ==
PROVIDERS: PCP Internal Medicine; Referring Provider Internal Medicine Cardiovascular Disease; Visit Provider Internal Medicine Cardiovascular Disease
DX: I25.810 Atherosclerosis of coronary artery bypass graft(s) without angina pectoris (principal); Z95.5 Presence of coronary angioplasty implant and graft; I10 Essential (primary) hypertension; E78.5 Hyperlipidemia, unspecified; J44.9 Chronic obstructive pulmonary disease, unspecified; E78.00 Pure hypercholesterolemia, unspecified
CPT/HCPCS: 36415; 80048; 80061; 80076

== ENCOUNTER 2021-11-22 13:26 | Outpatient (CLI) | payer MEDICARE, OTHER, SELFPAY ==
--- NOTE | 2021-11-22 13:40 | CR.ITP_ITS ---
Diagnosis - General Information Admitting Diagnosis: PCI with stent Personal Learning Style:: Audio/Visual Barriers to Learning: Vision Impairment Gave educational material for:: Treating Heart Disease, Emotions & Heart Disease, Stress Management & Relaxation, Sleep Disorders & Heart Disease, How The Heart Works, What it means to have Heart Disease, How Coronary Artery Disease is Diagnosed, Heart Procedures, What Heart Medications Do, Risk Factors & Modifications, Living an Active Life, Nutrition - Education/Goals Cardiac Rehabilitation Goals: 1. Maintain the individual as the primary focus of care. 2. To improve the patient's quality of life. 3. Identification of cardiac risk factors and provide cardiac risk factor management. 4. Enhance the psychosocial status of the patient. 5. Reconditioning enough to allow the patient to resume customary activities. 6. Control symptoms of cardiac disease Personal Goals: Initial Assessment: Quit smoking (participate in smoking cessation, Participate in home exercise program, Improve muscle strength and endurance Scale for measuring improvement of personal goals: Enter appropriate number in Comments. 2 = Unchanged. 3 = Slightly Better. 4 = Moderate Improvement. 5 = Met my Goal - Diagnosis & Disease Process Outcomes/Goals: Pt IDs own risk factors & lifestyle modifications by Session 10, Verbalizes symptoms of angina & response by session 3., Pt independently manages, Other Additional Outcomes/Goals: Plan/Interventions: Assist Pt to ID & engage in lifestyle modification to reduce CVD risk, Instruct on individual risk factors, Review symptoms of angina & emergency actions, Review secondary diagnosis & identify educational needs., Other see comment 30 day Reassessments:: Progressing 30 day Reassessments:: Progressing 30 day Reassessments:: Progressing 30 day Reassessments:: Progressing Final Reassessments:: Progressing - Safety Referral to Physical Therapy: No Referral to [facility] Case Management: No Fall Risk Assessed:: Yes Assistive Devices:: None Exercise - Initial Assessment - Visit Date of Eval: 11/22/21 - initial eval Mets: Pre-: >3 METS for 30 minutes by discharge, >5 METS for 30 minutes by discharge, >7 METS for 30 minutes by discharge, Unable to meet goal due to: (see comment below) - Physician Prescribed Exercise Modalities: Treadmill, Biodyne, Rower, Airdyne, NuStep, SciFit Frequency: 3x/week for 12 weeks [36 sessions] Intensity: 60-80% of age predicted maximum heart rate reserve Current METSs:: 4 Target Heart Rate:: 100-130 Resting Blood Pressure: 106/60 EKG Type: SR/BBB with PAC's - Outcomes & Goals Goals:: Verbalizes understanding of THR, RPE & goal METS by session 6, Documents in home exercise log/reports 30 min aerobic 5 day/wk by DC, Demonstrates accurate pulse taking by DC, Other additional outcome/goals: see below - Intervention & Plan Exercise Program Goals: Instruct on personal THR & RPE, Instruct on MET level & personal MET goal, Show patient to take own pulse /validate performance until accurate, Instruct on home exercise, Other additional plan/int - Physical Activity Home Exercise Physical Activity - Home Exercise: Safe Exercise, Warm-up, Self-monitoring, Cool-Down, Home Exercise > 30 min Daily, Sitting Time <3 hours/daily - Outcomes & Goals Outcomes/Goals: Demonstrates correct Warm-up/exercise Cool-Down (S3) if = 2.5 METs, Verbalizes symptoms of exercise intolerance by Session 3 (S3), Demonstrate safe equipment use (S3) & follows exercise prescrition (6), Other: See below - Intervention & Plan Plan/Intervention: Instruct warm-up & cool-down if exercising at > 2 METs, Instruct on symptoms of exercise intolerance & actions to take, Instruct & monitor on saf, Assess intial functional capacity & safety risk, Other See below Nutrition - Initial Assessment - Program Goals Nutrition Program Goals: LDL <100 optimal. 100 - 129 Near optimal. 130 - 159 Borderline High. 160 - 189 High. Total Cholesterol <200 desirable. 200 - 239 Borderline High. >/= 240 High. HDL < 40 Low >/=60 High. Triglycerides <150 desirable. <199 optimal. VlDL 5 - 40. HgbA1C <7%. BMI <25 Patient has diagnosis of Hyperlipidemia (ICD E78)?: Yes - Visit Date of Assessment:: 11/22/21 - initial eval - Cholesterol/Lipids Determine presence & major risk factors that modify LDL goal: Cigarette smoking, Hypertension or hypertensive medication, Low HDL cholesterol <40 mg/dL*, Family history of premature CHD in Male < 55 years: female <65 yearsFa, Age men > 45 years; women >/= 55 years Outcomes/Goals: Pt IDs own risk factors & lifestyle modifications by Session 10, Verbalizes symptoms of angina & response by session 3., Pt independently manages, Other Additional Outcomes/Goals: Intervention/Plan: Advocate for lipid panel cholesterol medication if applicable, Instruct on personal lipid levels & lipid goals/NCEP guidelines, Instruct on cholesterol, Other additional plan/int Referral to dietitian:: Yes - medical nutrition therapy - Diabetes (Other Core Measures) Diabetes Type: Not Applicable - Weight Mgt (Other Care) Height: 5 ft 7 in Weight:: 81.647 kg BMI: 28.1 Outcomes/Goals: Pt sets, maintains & shows weight loss goal & trend during rehab, Other additional outcomes/goals Intervention/Plan: Instruct on ideal BMI & set weight loss goal w/patient, Assist pt to ID & incorporate diet changes for weight loss by S9, Refer to Structured Weight Loss program as appropriate, Encourage goal of using 250- 300dcal per session for weight loss, Other additional plan/interventions - Healthy Eating Habits Will attend diet classes:: Yes Outcomes/Goals:: Consume diet rich in vegs,fruits,whole grain/high fiber,fish,lean meat, Limit sat/trans fats,cholesterol & added salts & sugars, Other additional outcome/goals: Intervention/Plan:: Assess current eating habits, Other Additional plan/interventions - Education Gave educational materials for:: Signs & symptoms of hypoglycemia, Signs & symptoms of hyperglycemia, Relate diabetes to coronary artery disease, Healthy eating Nutrition - 30-Day Assessment Nutrition - 60-Day Assessment Nutrition - 90-Day Assessment Nutrition - Final Assessment Medical - Initial Assessment - Visit Date of Eval: 11/22/21 - initial eval - Medication Compliance Preventative Medication(s):: Aspirin, Clopidogrel/P2Y12 inhibit, Statin/lipid, Beta alise, ARB (Angiotensi Rcap) H/O mental health issues: depression, anxiety, or addiction?: No Outcomes/Goals: Verbalizes medications,desired effect & common side effects @ DC, Pt self-reports following medication regimen, Keeps card in wallet w/medications listed by DC, Other additional outcome/goals: Interventions/plans: Instruct on medication effects & side effects, Review medication list w/patient every two weeks, Instruct importance of taking meds as ordered & assist problem solving, Other additional - Tobacco Use Do you use smokeless tobacco?: No Outcomes/Goals: Smoking cessation achieved or maintained by discharge, Identify aids/strategies for achieving smoking cessation by session 6, Other additional outcome/goals Interventions/plan: Instruct on effects of smoking & provide smoking cessation resource, Assist pt to set quit date & provide encouragement, Assist pt to develop strategies to achieve/maintain quit date, Assist pt w/nicotine replacem ent & medication for cessation success, Other additional plan/interventions - Hypertension Hypertension Diagnosis:: Hypertension ICD-10 I10 Resting Blood Pressure:: 106/60 [place] [employer] Hypertension Guidelines: [place] [employer] Hypertension Guidelines. Normal BP Less than 120/80. Elevated BP 120/80. Hypertension Stage 1: BP 130-139/80-89. Hypertesnion Stage 2: BP 140 or higher/90 or higher. Hypertension Crisis: BP higher than 180/120 Outcomes/Goals: Able to verbalize/achieve optimal blood pressure <130/80, Incorporates diet changes & exercise for blood pressure control by DC, Other additional outcomes/goals Interventions/plan: Instruct on optimal blood pressure, hypertension & medications, Instruct on effects of sodium, alcohol, stress, exercise &hypertension, Other additional plan/interventions - Tobacco Cessation Referral Smoking Cessation Referral:: No Individual Education/Counseling:: No Education Schedule Given:: Yes Medical- 30-Day Assessment Medical- 60-Day Assessment Medical- 90-Day Assessment Medical - Final Assessment Psychosocial - Initial Assess - VIsit Date of Eval: 11/22/21 - initial eval History of previous Mental disease:: No - Outcomes/Goals: See list Psychosocial Outcomes/Goals:: ID's personal stressors & 2 strategies to manage stress by discharge, Other Additional outcome/goals: - Intervention/Plan: See List Interventions/Plan:: Assess stressors,coping strategies & signs of derpression on admission, Instruct/assist pt to develop coping & personal stress Mgt strategies, Refer to Behavioral Health if appropriate, Refer to Physician if appropriate, Instruct patient to recognize signs & symptoms of depression, Instruct patient to recog, Other additional plan/intervention Psychosocial - 30-Day Assess Psychosocial - 60-Day Assess Psychosocial - 90-Day Assess Psychosocial - Final Assessmen Patient Health Questionnaire Initial Assessment 1. Little interest or pleasure in doing things: Not at all 2. Feeling down, depressed, or hopeless: Not at all 3. Trouble falling or staying asleep, or sleeping too much: Several days 4. Feeling tired or having little energy: More than half the days 5. Poor appetite or overeating: Several days 6. Feeling bad about yourself -- or that you are a failure or have let yourself or your family down: Several days 7. Trouble concentrating on things, such as reading the newspaper or watching television: Not at all 8. Moving or speaking so slowly that other people could have noticed. Or the opposite - being so fidgety or restless that you have been moving around a lot more than usual: Not at all 9. Thoughts that you would be better off , or of hurting yourself in some way: Not at all How difficult have these problems made it for you to do your work, take care of things at home, or get along with other people?: Not difficult at all Total Score: 5 BENITO-Q SV Test - Statements CAD is a disease of the arteries in the heart: True Examples of risk factors for heart disease: True Angina is chest pain or discomfort: True The benefits of resistance training include: True Eating more meat and dairy products: False Anti-platelet medications such as aspirin are important: True The only effective way to manage stress: True An exercise warm-up slowly increases heart rate: True Prepared, processed foods usually have high sodium: True Depression is common after a heart attack: True The statin medications lower cholesterol: True To control blood pressure, lower the amount of sodium: True If someone gets chest discomfort during walking: True Transfats are partially hydrogenated vegetable oils: True Sleep apnea that is not treated increases the risk: True To control cholesterol, one should become a vegetarian: True Someone knows if he/she is exercising at the right level: True Diabetes cannot be prevented with exercise & health eating: True Stress is a large risk for heart attack: True A diet that can help lower blood pressure is rich in: True - Total Score Total Correct Responses: 14 Self-Efficacy Initial Assessment We would like to know how confident you are in doing certain activities. Please select your confidence level for:: Select your confidence level for the following using the scale 1-10 where 1 is not at all confident and 10 is totally confident. Your score is the average of all 6 responses. Fatigue: How confident are you that you can keep the fatigue caused by your disease from interfering with the things you want to do? Select Number: 6 Physical Discomfort or Pain: How confident are you that you can keep the physical discomfort or pain of your disease from interfering with the things you want to do? Select Number: 5 Emotional Distress: How confident are you that you can keep the emotional distress caused by your disease from interfering with the things you want to do? Select Number: 5 Other Symptoms or Health Problems: How confident are you that you can keep other symptoms or health problems from interfering with the things you want to do? Select Number: 5 Different Tasks and Activities: How confident are you that you can do the different tasks and activities needed to manage your health condition so as to reduce your need to see a doctor? Select Number: 5 Medication: How confident are you that you can do things other than just taking medication to reduce how much your illness affects your everyday life? Select Number: 5 Total Score:: 5 Nutrition Survey - Nutrition Survey Initial Have you lost >10 lbs over the past 2 months without trying?: No Are you following a special diet at home for diabetes, low fat, or low salt?: No Are you interested in meeting with a dietitian for help understanding your diet?: Yes Do you eat less than 3 meals a day?: Yes Do you eat fatty meats (almendarez, sausage, ribs, etc), fried foods, desserts, large amounts of salad dressings, margarine, butter, or cheese most days?: Yes Do you have food allergies? [Enter types in comment field]: No Do you eat in restaurants more than 3 times a week?: Yes Do you season food with salt, seasoning salt, or garlic salt?: Yes Do you used canned, boxed, frozen meals, or soups, seasoning packets?: Yes Total Score:: 6
--- NOTE | 2021-11-22 13:40 | CR.HP_ITS ---
CR - History & Physical - General Arrival date:: 11/22/21 Arrival time:: 13:41 Date of Referral:: 11/17/21 Date of CR Evaluation:: 11/22/21 Referring Physician: Dr. Mark Giles Primary Diagnosis: PCI w/stenting - History of Present Cardiac Event Onset Date: Enter Onset Date of cardiac illnesses in Comment field below PTCA or coronary stenting:: Yes - Sleep Disorder Evaluation Hx of Sleep Apnea: No Do you snore loudly (louder than talking or can be heard through closed doors)?: No Do you often feel tired/ fatigued/ sleepy during daytime?: No Has anyone observed you stop breathing during sleep?: No History of Hypertension (for STOP score): Yes STOP Results: Negative - Medications Home Medications: Ambulatory Orders Medication Instructions Recorded aspirin 81 mg tablet,delayed 81 mg PO QDAY 04/23/18 release metoprolol tartrate 50 mg tablet 50 mg PO BID #180 tab 09/30/19 omeprazole 20 mg capsule,delayed 20 mg PO BID 05/11/21 release rosuvastatin 40 mg tablet 40 mg PO DAILY #90 tab 07/19/21 albuterol sulfate 90 mcg/actuation 2 puff INHALATION Q6H PRN #8.5 g 08/05/21 aerosol inhaler isosorbide mononitrate 30 mg 30 mg PO DAILY #30 tab 09/14/21 tablet,extended release 24 hr nitroglycerin 0.4 mg sublingual 0.4 mg SUBLINGUAL Q5M PRN #25 tab 09/14/21 tablet clopidogrel 75 mg tablet 75 mg PO DAILY #90 tab 10/04/21 furosemide 40 mg tablet See Rx Instructions .ROUTE 10/25/21 .COMPLEX #90 tab budesonide-formoterol HFA 160 2 puff INHALATION BID #3 device 11/05/21 mcg-4.5 mcg/actuation aerosol inhaler losartan 50 mg tablet 50 mg PO QDAY tab 11/15/21 potassium chloride 20 mEq 20 meq PO DAILY #30 tab 11/15/21 tablet,extended release(part/cryst) - Allergies Allergies/Adverse Reactions: Allergies levofloxacin [From Levaquin] Adverse Reaction (Severe, Verified 11/15/21 14:52) tendonitis Achilles Advanced Directives - Advanced Directives Power of Swimming Pool Installer And Servicer: No Living Will: No Advance Directives Information Provided: Yes Advance Directives on File: No DNR Order?:: No Past Medical History - Covid-19 Screening Fever: No Unexplained muscle aches: No Current respiratory symptoms: No Upper respiratory infections symptoms: No Gastro-intestinal symptoms: No Tqb-Thhz-Mqevlf symptoms: No Has tested positive for COVID-19 in last 30 days: No Had contact w/person w/symptoms or Covid-19 (+) last 14 days: No Has High Risk Exposures ID'd by Health dept/Inf Control team: No 65 years or older:: Yes Lives in Assisted Living facility:: No Has a chronic lung disease or moderate to severe asthma:: Yes Has a serious heart condition:: Yes Immunocompromised:: No Severely obese (Body Mass Index of 40 or higher):: No Diabetic:: No Has chronic kidney disease undergoing dialysis:: No Has liver disease:: No - Past Medical Illness Medical History: Past Medical History (Last Updated 11/17/21 @ 08:50 by Amada Valverde) Alcohol use Z72.89 occ Arthritis M19.90 Atherosclerosis of coronary artery bypass graft without angina pectoris I25.810 CABG x 2 STEPHENS-LAD, SVG-D1 10/14/96 SVG-D1 is occluded PTCA to distal RCA, PCI/stent to proximal rPDA, PTCA of distal LCx and OM2 ISR on 11/12/[address] Ulrich of [facility];PTCA to distal RCA, PCI/stent to proximal rPDA, PTCA of distal LCx and OM2 ISR on 11/12/[address] Ulrich of [facility]; Atherosclerosis of coronary artery of [place] heart without angina pectoris I25. 10 PCI-JOEY-CX w/ 2.75 x 18 Promus 06/19/2008 PCI-Stent to RCA w/ BX Velocity in 2000, 2004 PCI-JOEY-Cx w/ 2.75 x 20 mm Taxus and distally w/ 3.0 x 15 mm Hvac/R Instructor Stent 01/05/2006 CABG x 2 STEPHENS-LAD, SVG-D1 10/14/96 SVG-D1 is occluded PTCA to distal RCA, PCI/stent to proximal rPDA, PTCA of distal LCx and OM2 ISR on 11/12/[address] Ulrich of [facility]; Cardiology follow-up encounter Z09 follows with [facility]/last visit 04/2021 Chronic bronchitis J42 COPD (chronic obstructive pulmonary disease) J44.9 DDD (degenerative disc disease), lumbar M51.36 Easy bruising R23.8 d/t asa Excessive bleeding R58 d/t asa Gastric reflux K21.9 on med High cholesterol E78.00 on med History of diverticulitis Z87.19 History of echocardiogram Z92.89 2018 History of stress test Z92.89 stress echo 2020 History of ulceration Z87.898 small ulcer Hyperlipidemia E78.5 Hypertension I10 Hypertension I10 controlled with med Marijuana use F12.90 1970's Nicotine dependence F17.200 On home oxygen therapy Z99.81 2l at night Osteoarthritis M19.90 Presence of stent in coronary artery Onset Date: ~11/12/21 Z95.5 Distal RCA: PTCA with a 3.5 mm balloon Right PDA proximal portion: PCI with a 2.75 x 15 mm Xience Sk[place]oint JOEY (postdilated with a 3.0 NC); LCx distal into OM 2: PTCA with a 2.75 mm NC balloon0 per cardiac cath @ [facility]/12/21; JOEY to RCA as described with residual narrowing per cath 09/29/21; PCI-JOEY-CX w/ 2.75 x 18 Promus 06/19/2008 PCI-Stent to RCA w/ BX Velocity in 2000, 2004 PCI-JOEY-Cx w/ 2.75 x 20 mm Taxus and distally w/ 3.0 x 15 mm Hvac/R Instructor Stent 01/05/2006 PTCA to distal RCA, PCI/stent to proximal rPDA, PTCA of distal LCx and OM2 ISR on 11/12/[address] Ulrich of [facility]; Shortness of breath on exertion R06.02 sob with 2 flights of stairs Smoker F17.200 - Past Surgical History Surgical History: Past Surgical History (Last Reviewed 11/15/21 @ 15:55 by Daniel Saeed PIPE INSPECTOR, PIPE INSPECTOR-C) H/O coronary artery bypass surgery Onset Date: 10/14/96 Z95.1 CABG x 2 STEPHENS-LAD, SVG-D1 10/14/96 @ [facility] History of appendectomy Z90.49 History of cardiac catheterization Z98.890 2007 History of colectomy Z90.49 History of left knee replacement Z96.652 History of partial colectomy Z90.49 History of tonsillectomy Z90.89 1965 Hx of left cataract extraction Z98.42 Hx of right cataract extraction Z98.41 Presence of coronary angioplasty implant and graft Onset Date: ~09/29/21 Z95.5 JOEY to RCA as described with residual narrowing per cath 09/29/21; PCI-JOEY-CX w/ 2.75 x 18 Promus 06/19/2008 PCI-Stent to RCA w/ BX Velocity in 2000, 2004 PCI-JOEY-Cx w/ 2.75 x 20 mm Taxus and distally w/ 3.0 x 15 mm Hvac/R Instructor Stent 01/05/2006 S/p bilateral carpal tunnel release Z98.890 - Family History Summary Family History: Family History (Last Reviewed 11/15/21 @ 15:55 by Daniel Saeed PIPE INSPECTOR, PIPE INSPECTOR-C) Father CAD (coronary artery disease) Social History - Smoking History Smoking Status: Current every day smoker Years Smokin Packs Smoked per Day: 0.5 Hx Tobacco Use: Yes Hx Smoking Exposure: Yes - Alcohol Use Alcohol Usage: Yes - Substance Abuse Hx Substance Use: Yes - marijuana - Occupation Occupation (List type of work in comments):: Employed - Hobbies, Recreation, Social Activities Hobbies: Sports, Exercise Recreational Activities: I am able to engage in all my recreational activities Social Environment - Status Marital Status: Single - Current Living Arrangements Living Environment:: Family - Children How many children do you have?: 3 Do any of your children live nearby?: Yes - Safety Do you feel safe in your surroundings?: Yes - Assistance Do you need any assistance at home?: no Review of Systems - Review of Systems Hints: Right click = Denies (Slash). Left click = Reports ([place]) Review of Present Symptoms: Reports: Fatigue, Appetite - Normal, Sleep - Normal. Denies: Shortness of Breath at Rest, PVD, Operative Discomfort, Angina, Wound Healing, Dizziness/Lightheadedness, Heart Arrhythmia/Irregularities, Appetite - Special Diet, Sexual Changes - Pain Is Patient Pain Free?: Yes Risk Factor Assessment - Chief Complaint Chief Complaint: PCI with stent - Vital Signs Pulse Ox: 94 Blood Pressure: 106/60 - Pulse Pulse Rate: 72 Pulse Rhythm: Regular - Hypertension Blood Pressure Sitting - Right Arm: 106/60 - Diabetes Nutrition Referral for Diabetes: No - Obesity Height: 5 ft 7 in Weight:: 81.647 kg Weight in Pounds: 180.0 lbs Body Mass Index (BMI): 28.1 Nutritional Referral for Obesity: No - Physical Inactivity Physical Inactivity: Recreational activity - Risk Stratification Risk Guidelines: Moderate Risk: Risk Factor for Diabetes, Risk Factor for Obesity, Risk Factor for Sedentary Lifestyle, Risk Factor for Depression, Highest Risk: Risk Factor for Smoking, Risk Factor for Dyslipidemia, Risk Factor for Hypertension - Family History Family History: Family History (Last Reviewed 11/15/21 @ 15:55 by Daniel Saeed PIPE INSPECTOR, PIPE INSPECTOR-C) Father CAD (coronary artery disease) Motivation - Motivation to Participate On a scale of 1 to 10, how prepared are you to commit to attending program?: 10 What do you see as barriers to successfully being able to complete the program?: weather What do you see as the benefits of succesfully completing the program? In other words, what do you hope to get out of participating in the program?: improved health Are there issues you are dealing with that will interfere with completing the program?: none Do you have a spouse or signficant other, family or friends who will help support you to complete the program?: family
[2021-11-22 14:44] VITALS: BP 106/60; BMI 28.1
[2021-11-22 14:45] VITALS: BP 106/60; PULSE 72; O2SAT 94; BMI 28.1
== END 2021-11-22 23:59 | disposition short-term general hospital (02) ==
LOC: CR 13:31
PROVIDERS: PCP Internal Medicine; Referring Provider Internal Medicine Cardiovascular Disease; Visit Provider Internal Medicine Cardiovascular Disease
DX: I25.709 Atherosclerosis of coronary artery bypass graft(s), unspecified, with unspecified angina pectoris (principal); Z95.5 Presence of coronary angioplasty implant and graft

== ENCOUNTER 2021-11-29 15:45 | Outpatient (RCR) | payer MEDICARE, OTHER, SELFPAY | END 2021-11-29 23:59 | LOC: CR 15:45 | PROVIDERS: PCP Internal Medicine; Referring Provider Internal Medicine Cardiovascular Disease; Visit Provider Internal Medicine Cardiovascular Disease | DX: Z95.5 Presence of coronary angioplasty implant and graft (principal); J44.9 Chronic obstructive pulmonary disease, unspecified; F17.210 Nicotine dependence, cigarettes, uncomplicated; G47.33 Obstructive sleep apnea (adult) (pediatric) | CPT/HCPCS: 93798 ==

== ENCOUNTER 2021-12-27 15:45 | Outpatient (RCR) | payer MEDICARE, OTHER, SELFPAY ==
--- NOTE | 2021-12-22 10:09 | PCM.CR.ITP ---
Diagnosis Exercise - 30-day Assessment - Visit Date of Eval: 12/22/21 Session #:: 9 - Patient started is CR on 11/29/2021 - Physician Prescribed Exercise Modalities: Treadmill, NuStep Frequency: 3x/week for 12 weeks [36 sessions] Intensity: 60-80% of age predicted maximum heart rate reserve Current METSs:: 4.0 limited by max HR Target Heart Rate:: 100-130 Current RPE:: 12-13 Maximum Excercise HR:: 134 Resting Blood Pressure: 84/50 - Asymptomatic hypotension, drinks 10 ounces of water before his exercise. Maximum Exercise Blood Pressure: 110/58 EKG Type: NSR to sinus tach; BBB rare PAC, PVC,vent couplets,short episode trigeminy Current Physical Activity or Exercising minutes: 37:24 - Outcomes & Goals Goals:: Verbalizes understanding of THR, RPE & goal METS by session 6, Documents in home exercise log/reports 30 min aerobic 5 day/wk by DC, Demonstrates accurate pulse taking by DC - Intervention & Plan Exercise Program Goals: Instruct on personal THR & RPE, Instruct on MET level & personal MET goal, Show patient to take own pulse /validate performance until accurate - 30-day Reassessments 30 day Reassessments:: Met - Physical Activity Home Exercise Physical Activity - Home Exercise: Safe Exercise, Warm-up, Self-monitoring, Cool-Down, Home Exercise > 30 min Daily, Sitting Time <3 hours/daily - Outcomes & Goals Outcomes/Goals: Demonstrates correct Warm-up/exercise Cool-Down (S3) if = 2.5 METs, Verbalizes symptoms of exercise intolerance by Session 3 (S3), Demonstrate safe equipment use (S3) & follows exercise prescrition (6) - Intervention & Plan Plan/Intervention: Instruct warm-up & cool-down if exercising at > 2 METs, Instruct on symptoms of exercise intolerance & actions to take, Instruct & monitor on saf, Assess intial functional capacity & safety risk - 30-day Reassessments 30 day Reassessments:: Met Nutrition - Initial Assessment Nutrition - 30-Day Assessment - Program Goals Nutrition Program Goals: LDL <100 optimal. 100 - 129 Near optimal. 130 - 159 Borderline High. 160 - 189 High. Total Cholesterol <200 desirable. 200 - 239 Borderline High. >/= 240 High. HDL < 40 Low >/=60 High. Triglycerides <150 desirable. <199 optimal. VlDL 5 - 40. HgbA1C <7%. BMI <25 Patient has diagnosis of Hyperlipidemia (ICD E78)?: Yes - Visit Date of Assessment:: 12/22/21 Session #:: 9 - Cholesterol/Lipids Triglycerides (mg/dL): 112 Total Cholesterol (mg/dL): 128 LDL Cholesterol (mg/dL): 48 HDL Cholesterol (mg/dL): 58 Determine presence & major risk factors that modify LDL goal: Hypertension or hypertensive medication, Family history of premature CHD in Male < 55 years: female <65 yearsFa, Age men > 45 years; women >/= 55 years Outcomes/Goals: Pt IDs own risk factors & lifestyle modifications by Session 10, Verbalizes symptoms of angina & response by session 3., Pt independently manages Intervention/Plan: Instruct on personal lipid levels & lipid goals/NCEP guidelines, Instruct on cholesterol Referral to dietitian:: Yes - Medical Nutrition Therapy 30-day Reassessments:: Progressing - Diabetes (Other Core Measures) Diabetes Type: Not Applicable - Weight Mgt (Other Care) Not Applicable: Yes Height: 5 ft 7 in Weight:: 184 lb BMI: 28.8 Diagnosis Overweight/Obesity BMI> 30% ICD-10 E66: No Diagnosis High BMI/Morbid Obesity BMI> 35% ICD-10 Z68: No Outcomes/Goals: Pt sets, maintains & shows weight loss goal & trend during rehab Intervention/Plan: Instruct on ideal BMI & set weight loss goal w/patient, Assist pt to ID & incorporate diet changes for weight loss by S9 30 day Reassessments:: Progressing - Healthy Eating Habits Will attend diet classes:: Yes Outcomes/Goals:: Consume diet rich in vegs,fruits,whole grain/high fiber,fish,lean meat, Limit sat/trans fats,cholesterol & added salts & sugars Intervention/Plan:: Assess current eating habits 30-day Reassessments:: Progressing - Education Gave educational materials for:: Healthy eating Nutrition - 60-Day Assessment Nutrition - 90-Day Assessment Nutrition - Final Assessment Medical - Initial Assessment Medical- 30-Day Assessment - Visit Date of Eval: 12/22/21 Session #:: 9 - Medication Compliance Preventative Medication(s):: Aspirin, Statin/lipid, Beta alise - taken off the Metoprolol and started Diltiazem 180mg Q-day H/O mental health issues: depression, anxiety, or addiction?: No Doesn?t believe in the benefits of treatment?: No Believes medications are unnecessary or harmful?: No Has a concern about medication side effects?: No Expresses concern over the cost of medications?: No Outcomes/Goals: Verbalizes medications,desired effect & common side effects @ DC, Pt self-reports following medication regimen, Keeps card in wallet w/medications listed by DC Interventions/plans: Instruct on medication effects & side effects, Review medication list w/patient every two weeks, Instruct importance of taking meds as ordered & assist problem solving 30-day Reassessments:: Progressing - Tobacco Use Tobacco Use: Cigarettes How many cigarettes do you smoke per day?: 10 Years Smokin Do you use smokeless tobacco?: No Outcomes/Goals: Smoking cessation achieved or maintained by discharge, Identify aids/strategies for achieving smoking cessation by session 6 Interventions/plan: Instruct on effects of smoking & provide smoking cessation resource, Assist pt to set quit date & provide encouragement, Assist pt to develop strategies to achieve/maintain quit date 30-day Reassessments:: Not Met Reassessment Notes & Comments:: Patient continues to smoked despite his cardiac and pulmonary medical history. He has been referred to Smoking Cessation, but has not scheduled an appointment. - Hypertension Hypertension Diagnosis:: Hypertension ICD-10 I10 Resting Blood Pressure:: 84/50 [place] [employer] Hypertension Guidelines: [place] [employer] Hypertension Guidelines. Normal BP Less than 120/80. Elevated BP 120/80. Hypertension Stage 1: BP 130-139/80-89. Hypertesnion Stage 2: BP 140 or higher/90 or higher. Hypertension Crisis: BP higher than 180/120 Peak Exercise Blood Pressure:: 110/58 Outcomes/Goals: Able to verbalize/achieve optimal blood pressure <130/80, Incorporates diet changes & exercise for blood pressure control by DC Interventions/plan: Instruct on optimal blood pressure, hypertension & medications, Instruct on effects of sodium, alcohol, stress, exercise &hypertension 30 day Reassessments:: Progressing - Tobacco Cessation Referral Smoking Cessation Referral:: Yes Individual Education/Counseling:: No Education Schedule Given:: Yes Medical- 60-Day Assessment Medical- 90-Day Assessment Medical - Final Assessment Psychosocial - Initial Assess Psychosocial - 30-Day Assess - VIsit Date of Eval: 12/22/21 Session #:: 9 Not Applicable: Yes - Psychosocial Test Tool Used:: PHQ-9 Questionnaire phq-9 Severity: Severity. 1-4 Minimal Depression. 5-9 Mild Depression. 10-14 Moderate Depression. 15-19 Moderately Sever Depression. 20-27 Severe Depression. Rule: - Referral to Behavioral Health PS - Interventions: Yes Attend Stress Management Classes, No Referral to Behavioral Health if PHQ-9 score >9:, No Referral to [facility], No Referral to Physician if PHQ-9 if score is 5-9: - Outcomes/Goals: See list Psychosocial Outcomes/Goals:: ID's personal stressors & 2 strategies to manage stress by discharge - Intervention/Plan: See List Interventions/Plan:: Assess stressors,coping strategies & signs of derpression on admission, Instruct/assist pt to develop coping & personal stress Mgt strategies, Instruct patient to recognize signs & symptoms of depression, Instruct patient to recog - 30-day Reassessments: 30 day Reassessments:: Progressing Psychosocial - 60-Day Assess Psychosocial - 90-Day Assess Psychosocial - Final Assessmen Patient Health Questionnaire 30-Day Re-eval Assessment 1. Little interest or pleasure in doing things: Not at all 2. Feeling down, depressed, or hopeless: Not at all 3. Trouble falling or staying asleep, or sleeping too much: Several days 4. Feeling tired or having little energy: More than half the days 5. Poor appetite or overeating: Several days 6. Feeling bad about yourself -- or that you are a failure or have let yourself or your family down: Several days 7. Trouble concentrating on things, such as reading the newspaper or watching television: Not at all 8. Moving or speaking so slowly that other people could have noticed. Or the opposite - being so fidgety or restless that you have been moving around a lot more than usual: Not at all 9. Thoughts that you would be better off , or of hurting yourself in some way: Not at all Total Score: 5 Self-Efficacy 30-Day Re-eval Assessment We would like to know how confident you are in doing certain activities. Please select your confidence level for:: Select your confidence level for the following using the scale 1-10 where 1 is not at all confident and 10 is totally confident. Your score is the average of all 6 responses. Fatigue: How confident are you that you can keep the fatigue caused by your disease from interfering with the things you want to do? Select Number: 6 Physical Discomfort or Pain: How confident are you that you can keep the physical discomfort or pain of your disease from interfering with the things you want to do? Select Number: 5 Emotional Distress: How confident are you that you can keep the emotional distress caused by your disease from interfering with the things you want to do? Select Number: 6 Other Symptoms or Health Problems: How confident are you that you can keep other symptoms or health problems from interfering with the things you want to do? Select Number: 6 Different Tasks and Activities: How confident are you that you can do the different tasks and activities needed to manage your health condition so as to reduce your need to see a doctor? Select Number: 5 Medication: How confident are you that you can do things other than just taking medication to reduce how much your illness affects your everyday life? Select Number: 5 Total Score:: 5 Nutrition Survey
[2021-12-22 10:26] VITALS: BP 110/58; BP 84/50; BMI 28.8
== END 2021-12-27 23:59 ==
LOC: CR 15:45
PROVIDERS: PCP Internal Medicine; Referring Provider Internal Medicine Cardiovascular Disease; Visit Provider Internal Medicine Cardiovascular Disease
DX: I10 Essential (primary) hypertension (principal); J44.9 Chronic obstructive pulmonary disease, unspecified; F17.210 Nicotine dependence, cigarettes, uncomplicated; G47.33 Obstructive sleep apnea (adult) (pediatric); E78.5 Hyperlipidemia, unspecified; K21.9 Gastro-esophageal reflux disease without esophagitis; Z95.5 Presence of coronary angioplasty implant and graft
CPT/HCPCS: 93798

== ENCOUNTER 2021-12-29 13:20 | Outpatient (CLI) | payer MEDICARE, OTHER, SELFPAY ==
[2021-12-22 10:26] VITALS: BMI 28.8
--- NOTE | 2021-12-29 13:28 | CT_ITS ---
STUDY: CT CHEST WITHOUT CONTRAST REASON FOR EXAM: Male, 66 years old. Lung nodule. RADIATION DOSAGE (If Supplied By Facility): CTDIvol = ( 9.94 ) mGy, DLP = ( 350.59 ) mGycm TECHNIQUE: Transaxial imaging was performed without the administration of intravenous contrast material. Multiplanar coronal and sagittal images were reformatted. Individualized dose optimization techniques were used for this CT. COMPARISON: Comparison is made with prior study dated 05/24/2021. FINDINGS: Hyperinflation. Emphysematous changes with centrilobular emphysema more prominent in the upper lobes. Stable 1 cm pleural-based nodule in the peripheral lateral aspect of the left lower lobe as seen on axial image #96. Calcified pleural plaques in the right lung base. There are calcifications of the coronary arteries. Sternal cerclage wires and vascular clips are present from a prior sternotomy and coronary artery bypass graft procedure (CABG). Normal mediastinum. Normal hilar regions. Normal unenhanced pulmonary arteries. There is atherosclerotic calcification of the aortic arch with tortuosity and elongation of the aortic arch and descending thoracic aorta. There are multi-level degenerative changes of the thoracic spine. There is no demonstrated abnormality of the visualized upper abdomen. CT/Chest without Contrast IMPRESSION: Stable examination Electronically Signed: Byron Chacon MD at 14:04 EST ,
== END 2021-12-29 23:59 | disposition home or self-care (01) ==
PROVIDERS: PCP Internal Medicine; Referring Provider Internal Medicine Critical Care Medicine; Visit Provider Internal Medicine Critical Care Medicine
DX: R91.1 Solitary pulmonary nodule (principal)
CPT/HCPCS: 71250

== ENCOUNTER 2022-01-26 15:45 | Outpatient (RCR) | payer MEDICARE, OTHER, SELFPAY ==
[2021-12-22 10:26] VITALS: BMI 28.8
[2021-12-28 00:13] VITALS: BP 110/58; BP 84/50
--- NOTE | 2022-01-17 10:13 | PCM.CR.ITP ---
Diagnosis - General Information Admitting Diagnosis: PCI with stent Exercise - 60-day Assessment - Visit Date of Eval: 01/17/22 Session #:: 18 - Physician Prescribed Exercise Modalities: Treadmill, NuStep Frequency: 3x/week for 12 weeks [36 sessions] Intensity: 60-80% of age predicted maximum heart rate reserve Current METSs:: 4 Target Heart Rate:: 100-130 Current RPE:: 11-12 Maximum Excercise HR:: 117 Resting Blood Pressure: 100/60 Maximum Exercise Blood Pressure: 114/62 EKG Type: NSR to ST with BBB and an isolated PAC - Outcomes & Goals Goals:: Verbalizes understanding of THR, RPE & goal METS by session 6, Documents in home exercise log/reports 30 min aerobic 5 day/wk by DC, Demonstrates accurate pulse taking by DC, Other additional outcome/goals: see below - Intervention & Plan Exercise Program Goals: Instruct on personal THR & RPE, Instruct on MET level & personal MET goal, Show patient to take own pulse /validate performance until accurate, Instruct on home exercise, Other additional plan/int - 30-day Reassessments 30 day Reassessments:: Progressing - Physical Activity Home Exercise Physical Activity - Home Exercise: Safe Exercise, Warm-up, Self-monitoring, Cool-Down, Home Exercise > 30 min Daily, Sitting Time <3 hours/daily - Outcomes & Goals Outcomes/Goals: Demonstrates correct Warm-up/exercise Cool-Down (S3) if = 2.5 METs, Verbalizes symptoms of exercise intolerance by Session 3 (S3), Demonstrate safe equipment use (S3) & follows exercise prescrition (6), Other: See below - Intervention & Plan Plan/Intervention: Instruct warm-up & cool-down if exercising at > 2 METs, Instruct on symptoms of exercise intolerance & actions to take, Instruct & monitor on saf, Assess intial functional capacity & safety risk, Other See below - 30-day Reassessments 30 day Reassessments:: Progressing Nutrition - Initial Assessment Nutrition - 30-Day Assessment Nutrition - 60-Day Assessment - Program Goals Nutrition Program Goals: LDL <100 optimal. 100 - 129 Near optimal. 130 - 159 Borderline High. 160 - 189 High. Total Cholesterol <200 desirable. 200 - 239 Borderline High. >/= 240 High. HDL < 40 Low >/=60 High. Triglycerides <150 desirable. <199 optimal. VlDL 5 - 40. HgbA1C <7%. BMI <25 Patient has diagnosis of Hyperlipidemia (ICD E78)?: Yes - Visit Date of Assessment:: 01/17/22 - Cholesterol/Lipids Determine presence & major risk factors that modify LDL goal: Hypertension or hypertensive medication, Low HDL cholesterol <40 mg/dL*, Family history of premature CHD in Male < 55 years: female <65 yearsFa, Age men > 45 years; women >/= 55 years Outcomes/Goals: Pt IDs own risk factors & lifestyle modifications by Session 10, Verbalizes symptoms of angina & response by session 3., Pt independently manages, Other Additional Outcomes/Goals: Intervention/Plan: Advocate for lipid panel cholesterol medication if applicable, Instruct on personal lipid levels & lipid goals/NCEP guidelines, Instruct on cholesterol, Other additional plan/int Referral to dietitian:: Yes - medical nutrition therapy 30-day Reassessments:: Progressing - Diabetes (Other Core Measures) Diabetes Type: Not Applicable - Weight Mgt (Other Care) Height: 5 ft 7 in Weight:: 82.781 kg BMI: 28.5 Outcomes/Goals: Pt sets, maintains & shows weight loss goal & trend during rehab, Other additional outcomes/goals Intervention/Plan: Instruct on ideal BMI & set weight loss goal w/patient, Assist pt to ID & incorporate diet changes for weight loss by S9, Refer to Structured Weight Loss program as appropriate, Encourage goal of using 250-300dcal per session for weight loss, Other additional plan/interventions 30 day Reassessments:: Progressing - Healthy Eating Habits Will attend diet classes:: Yes Outcomes/Goals:: Consume diet rich in vegs,fruits,whole grain/high fiber,fish,lean meat, Limit sat/trans fats,cholesterol & added salts & sugars, Other additional outcome/goals: Intervention/Plan:: Assess current eating habits, Other Additional plan/interventions 30-day Reassessments:: Progressing - Education Gave educational materials for:: Signs & symptoms of hypoglycemia, Signs & symptoms of hyperglycemia, Relate diabetes to coronary artery disease, Healthy eating Nutrition - 90-Day Assessment Nutrition - Final Assessment Medical - Initial Assessment Medical- 30-Day Assessment Medical- 60-Day Assessment - Visit Date of Eval: 01/17/22 Session #:: 18 - Medication Compliance Preventative Medication(s):: Aspirin, Statin/lipid, Beta alise H/O mental health issues: depression, anxiety, or addiction?: No Doesn?t believe in the benefits of treatment?: No Believes medications are unnecessary or harmful?: No Has a concern about medication side effects?: No Expresses concern over the cost of medications?: No Outcomes/Goals: Verbalizes medications,desired effect & common side effects @ DC, Pt self-reports following medication regimen, Keeps card in wallet w/medications listed by DC, Other additional outcome/goals: Interventions/plans: Instruct on medication effects & side effects, Review medication list w/patient every two weeks, Instruct importance of taking meds as ordered & assist problem solving, Other additional 30-day Reassessments:: Progressing - Tobacco Use How many cigarettes do you smoke per day?: 10 - 10 Years Smokin Do you use smokeless tobacco?: No Outcomes/Goals: Smoking cessation achieved or maintained by discharge, Identify aids/strategies for achieving smoking cessation by session 6, Other additional outcome/goals Interventions/plan: Instruct on effects of smoking & provide smoking cessation resource, Assist pt to set quit date & provide encouragement, Assist pt to develop strategies to achieve/maintain quit date, Assist pt w/nicotine replacement & medication for cessation success, Other additional plan/interventions 30-day Reassessments:: Progressing - Hypertension Hypertension Diagnosis:: Hypertension ICD-10 I10 Resting Blood Pressure:: 100/60 [place] [employer] Hypertension Guidelines: [place] [employer] Hypertension Guidelines. Normal BP Less than 120/80. Elevated BP 120/80. Hypertension Stage 1: BP 130-139/80-89. Hypertesnion Stage 2: BP 140 or higher/90 or higher. Hypertension Crisis: BP higher than 180/120 Peak Exercise Blood Pressure:: 114/62 Outcomes/Goals: Able to verbalize/achieve optimal blood pressure <130/80, Incorporates diet changes & exercise for blood pressure control by DC, Other additional outcomes/goals Interventions/plan: Instruct on optimal blood pressure, hypertension & medications, Instruct on effects of sodium, alcohol, stress, exercise &hypertension, Other additional plan/interventions 30 day Reassessments:: Progressing - Tobacco Cessation Referral Smoking Cessation Referral:: Yes Individual Education/Counseling:: No Education Schedule Given:: Yes Medical- 90-Day Assessment Medical - Final Assessment Psychosocial - Initial Assess Psychosocial - 30-Day Assess Psychosocial - 60-Day Assess - VIsit Date of Eval: 01/17/22 Session #:: 18 History of previous Mental disease:: No - Outcomes/Goals: See list Psychosocial Outcomes/Goals:: ID's personal stressors & 2 strategies to manage stress by discharge, Other Additional outcome/goals: - Intervention/Plan: See List Interventions/Plan:: Assess stressors,coping strategies & signs of derpression on admission, Instruct/assist pt to develop coping & personal stress Mgt strategies, Refer to Behavioral Health if appropriate, Refer to Physician if appropriate, Instruct patient to recognize signs & symptoms of depression, Instruct patient to recog, Other additional plan/intervention - 30-day Reassessments: 30 day Reassessments:: Progressing Psychosocial - 90-Day Assess Psychosocial - Final Assessmen Patient Health Questionnaire 60-Day Re-eval Assessment 1. Little interest or pleasure in doing things: Not at all 2. Feeling down, depressed, or hopeless: Not at all 3. Trouble falling or staying asleep, or sleeping too much: Several days 4. Feeling tired or having little energy: More than half the days 5. Poor appetite or overeating: Several days 6. Feeling bad about yourself -- or that you are a failure or have let yourself or your family down: Several days 7. Trouble concentrating on things, such as reading the newspaper or watching television: Not at all 8. Moving or speaking so slowly that other people could have noticed. Or the opposite - being so fidgety or restless that you have been moving around a lot more than usual: Not at all 9. Thoughts that you would be better off , or of hurting yourself in some way: Not at all How difficult have these problems made it for you to do your work, take care of things at home, or get along with other people?: Not difficult at all Total Score: 5 Self-Efficacy 60-Day Re-eval Assessment We would like to know how confident you are in doing certain activities. Please select your confidence level for:: Select your confidence level for the following using the scale 1-10 where 1 is not at all confident and 10 is totally confident. Your score is the average of all 6 responses. Fatigue: How confident are you that you can keep the fatigue caused by your disease from interfering with the things you want to do? Select Number: 6 Physical Discomfort or Pain: How confident are you that you can keep the physical discomfort or pain of your disease from interfering with the things you want to do? Select Number: 5 Emotional Distress: How confident are you that you can keep the emotional distress caused by your disease from interfering with the things you want to do? Select Number: 6 Other Symptoms or Health Problems: How confident are you that you can keep other symptoms or health problems from interfering with the things you want to do? Select Number: 6 Different Tasks and Activities: How confident are you that you can do the different tasks and activities needed to manage your health condition so as to reduce your need to see a doctor? Select Number: 5 Medication: How confident are you that you can do things other than just taking medication to reduce how much your illness affects your everyday life? Select Number: 5 Total Score:: 5 Nutrition Survey
[2022-01-17 10:26] VITALS: BP 100/60; BP 114/62; BMI 28.5
== END 2022-01-27 23:59 | disposition home or self-care (01) ==
LOC: CR 15:45
PROVIDERS: PCP Internal Medicine; Referring Provider Internal Medicine Cardiovascular Disease; Visit Provider Internal Medicine Cardiovascular Disease
DX: J44.9 Chronic obstructive pulmonary disease, unspecified (principal); F17.210 Nicotine dependence, cigarettes, uncomplicated; G47.33 Obstructive sleep apnea (adult) (pediatric); Z95.5 Presence of coronary angioplasty implant and graft
CPT/HCPCS: 93798

== ENCOUNTER 2022-02-25 15:45 | Outpatient (RCR) | payer MEDICARE, OTHER, SELFPAY ==
[2022-01-17 10:26] VITALS: BMI 28.5
[2022-01-28 00:17] VITALS: BP 100/60; BP 114/62
--- NOTE | 2022-02-14 13:21 | PCM.CR.ITP ---
Diagnosis Exercise - 90-day Assessment - Visit Date of Eval: 02/14/22 Session #:: 32 - Physician Prescribed Exercise Modalities: Treadmill, NuStep Frequency: 3x/week for 12 weeks [36 sessions] Intensity: 60-80% of age predicted maximum heart rate reserve Current METSs:: 4.0 unchanged Target Heart Rate:: 100-130 Current RPE:: 11-12 Maximum Excercise HR:: 124 Resting Blood Pressure: 98/50 Maximum Exercise Blood Pressure: 110/70 EKG Type: NSR to sinus tach with BBB rare PACs. Current Physical Activity or Exercising minutes: 34:56 - Outcomes & Goals Goals:: Verbalizes understanding of THR, RPE & goal METS by session 6, Documents in home exercise log/reports 30 min aerobic 5 day/wk by DC, Demonstrates accurate pulse taking by DC - Intervention & Plan Exercise Program Goals: Instruct on personal THR & RPE, Instruct on MET level & personal MET goal, Show patient to take own pulse /validate performance until accurate, Instruct on home exercise - 30-day Reassessments 30 day Reassessments:: Not Met - Physical Activity Home Exercise Physical Activity - Home Exercise: Safe Exercise, Warm-up, Self-monitoring, Cool-Down, Home Exercise > 30 min Daily, Sitting Time <3 hours/daily - Outcomes & Goals Outcomes/Goals: Demonstrates correct Warm-up/exercise Cool-Down (S3) if = 2.5 METs, Verbalizes symptoms of exercise intolerance by Session 3 (S3), Demonstrate safe equipment use (S3) & follows exercise prescrition (6) - Intervention & Plan Plan/Intervention: Instruct warm-up & cool-down if exercising at > 2 METs, Instruct on symptoms of exercise intolerance & actions to take, Instruct & monitor on saf, Assess intial functional capacity & safety risk - 30-day Reassessments 30 day Reassessments:: Met Nutrition - Initial Assessment Nutrition - 30-Day Assessment Nutrition - 60-Day Assessment Nutrition - 90-Day Assessment - Program Goals Nutrition Program Goals: LDL <100 optimal. 100 - 129 Near optimal. 130 - 159 Borderline High. 160 - 189 High. Total Cholesterol <200 desirable. 200 - 239 Borderline High. >/= 240 High. HDL < 40 Low >/=60 High. Triglycerides <150 desirable. <199 optimal. VlDL 5 - 40. HgbA1C <7%. BMI <25 Patient has diagnosis of Hyperlipidemia (ICD E78)?: Yes - Visit Date of Assessment:: 02/14/22 Session #:: 32 - Cholesterol/Lipids Determine presence & major risk factors that modify LDL goal: Cigarette smoking, Hypertension or hypertensive medication, Family history of premature CHD in Male < 55 years: female <65 yearsFa, Age men > 45 years; women >/= 55 years Outcomes/Goals: Pt IDs own risk factors & lifestyle modifications by Session 10, Verbalizes symptoms of angina & response by session 3., Pt independently manages Intervention/Plan: Instruct on personal lipid levels & lipid goals/NCEP guidelines, Instruct on cholesterol 30-day Reassessments:: Progressing - Diabetes (Other Core Measures) Diabetes Type: Not Applicable - Weight Mgt (Other Care) Not Applicable: Yes Height: 5 ft 7 in Weight:: 181 lb 8 oz BMI: 28.4 Diagnosis Overweight/Obesity BMI> 30% ICD-10 E66: No Diagnosis High BMI/Morbid Obesity BMI> 35% ICD-10 Z68: No Outcomes/Goals: Pt sets, maintains & shows weight loss goal & trend during rehab Intervention/Plan: Instruct on ideal BMI & set weight loss goal w/patient, Assist pt to ID & incorporate diet changes for weight loss by S9, Encourage goal of using 250-300dcal per session for weight loss 30 day Reassessments:: Not Met - Healthy Eating Habits Will attend diet classes:: Yes Outcomes/Goals:: Consume diet rich in vegs,fruits,whole grain/high fiber,fish,lean meat, Limit sat/trans fats,cholesterol & added salts & sugars Intervention/Plan:: Assess current eating habits 30-day Reassessments:: Not Met - Education Gave educational materials for:: Healthy eating Nutrition - Final Assessment Medical - Initial Assessment Medical- 30-Day Assessment Medical- 60-Day Assessment Medical- 90-Day Assessment - Visit Date of Eval: 02/14/22 Session #:: 32 - Medication Compliance Preventative Medication(s):: Aspirin, Statin/lipid, Beta alise H/O mental health issues: depression, anxiety, or addiction?: No Doesn?t believe in the benefits of treatment?: No Believes medications are unnecessary or harmful?: No Has a concern about medication side effects?: No Expresses concern over the cost of medications?: No Outcomes/Goals: Verbalizes medications,desired effect & common side effects @ DC, Pt self-reports following medication regimen, Keeps card in wallet w/medications listed by DC Interventions/plans: Instruct on medication effects & side effects, Review medication list w/patient every two weeks, Instruct importance of taking meds as ordered & assist problem solving 30-day Reassessments:: Met - Tobacco Use Tobacco Use: Cigarettes How long ago did you quit using tobacco products?: Less than 6 months ago Do you use smokeless tobacco?: No Outcomes/Goals: Smoking cessation achieved or maintained by discharge Interventions/plan: Instruct on effects of smoking & provide smoking cessation resource, Assist pt to set quit date & provide encouragement, Assist pt to develop strategies to achieve/maintain quit date, Assist pt w/nicotine replacement & medication for cessation success 30-day Reassessments:: Not Met - Hypertension Hypertension Diagnosis:: Hypertension ICD-10 I10 Resting Blood Pressure:: 98/50 [place] [employer] Hypertension Guidelines: [place] [employer] Hypertension Guidelines. Normal BP Less than 120/80. Elevated BP 120/80. Hypertension Stage 1: BP 130-139/80-89. Hypertesnion Stage 2: BP 140 or higher/90 or higher. Hypertension Crisis: BP higher than 180/120 Peak Exercise Blood Pressure:: 112/54 Outcomes/Goals: Able to verbalize/achieve optimal blood pressure <130/80, Incorporates diet changes & exercise for blood pressure control by DC Interventions/plan: Instruct on optimal blood pressure, hypertension & medications, Instruct on effects of sodium, alcohol, stress, exercise &hypertension 30 day Reassessments:: Met - Tobacco Cessation Referral Smoking Cessation Referral:: No Individual Education/Counseling:: No Education Schedule Given:: Yes Medical - Final Assessment Psychosocial - Initial Assess Psychosocial - 30-Day Assess Psychosocial - 60-Day Assess Psychosocial - 90-Day Assess - VIsit Date of Eval: 02/14/22 Session #:: 32 Not Applicable: Yes History of previous Mental disease:: No - Psychosocial Test Tool Used:: PHQ-9 Questionnaire phq-9 Severity: Severity. 1-4 Minimal Depression. 5-9 Mild Depression. 10-14 Moderate Depression. 15-19 Moderately Sever Depression. 20-27 Severe Depression. Rule: - Referral to Behavioral Health PS - Interventions: Yes Attend Stress Management Classes, No Referral to Behavioral Health if PHQ-9 score >9:, No Referral to [facility], No Referral to Physician if PHQ-9 if score is 5-9: - Outcomes/Goals: See list Psychosocial Outcomes/Goals:: ID's personal stressors & 2 strategies to manage stress by discharge - Intervention/Plan: See List Interventions/Plan:: Assess stressors,coping strategies & signs of derpression on admission, Instruct/assist pt to develop coping & personal stress Mgt strategies, Instruct patient to recognize signs & symptoms of depression, Instruct patient to recog - 30-day Reassessments: 30 day Reassessments:: Progressing Psychosocial - Final Assessmen Patient Health Questionnaire 90-Day Re-eval Assessment 1. Little interest or pleasure in doing things: Not at all 2. Feeling down, depressed, or hopeless: Not at all 3. Trouble falling or staying asleep, or sleeping too much: Several days 4. Feeling tired or having little energy: More than half the days 5. Poor appetite or overeating: Several days 6. Feeling bad about yourself -- or that you are a failure or have let yourself or your family down: Several days 7. Trouble concentrating on things, such as reading the newspaper or watching television: Not at all 8. Moving or speaking so slowly that other people could have noticed. Or the opposite - being so fidgety or restless that you have been moving around a lot more than usual: Not at all 9. Thoughts that you would be better off , or of hurting yourself in some way: Not at all How difficult have these problems made it for you to do your work, take care of things at home, or get along with other people?: Somewhat difficult Total Score: 5 Self-Efficacy 90-Day Re-eval Assessment We would like to know how confident you are in doing certain activities. Please select your confidence level for:: Select your confidence level for the following using the scale 1-10 where 1 is not at all confident and 10 is totally confident. Your score is the average of all 6 responses. Fatigue: How confident are you that you can keep the fatigue caused by your disease from interfering with the things you want to do? Select Number: 6 Physical Discomfort or Pain: How confident are you that you can keep the physical discomfort or pain of your disease from interfering with the things you want to do? Select Number: 5 Emotional Distress: How confident are you that you can keep the emotional distress caused by your disease from interfering with the things you want to do? Select Number: 6 Other Symptoms or Health Problems: How confident are you that you can keep other symptoms or health problems from interfering with the things you want to do? Select Number: 6 Different Tasks and Activities: How confident are you that you can do the different tasks and activities needed to manage your health condition so as to reduce your need to see a doctor? Select Number: 5 Medication: How confident are you that you can do things other than just taking medication to reduce how much your illness affects your everyday life? Select Number: 5 Total Score:: 5 Nutrition Survey
[2022-02-14 13:29] VITALS: BP 112/54; BP 98/50; BMI 28.4
== END 2022-02-26 23:59 ==
LOC: CR 15:45
PROVIDERS: PCP Internal Medicine; Referring Provider Internal Medicine Cardiovascular Disease; Visit Provider Internal Medicine Cardiovascular Disease
DX: J44.9 Chronic obstructive pulmonary disease, unspecified (principal); F17.210 Nicotine dependence, cigarettes, uncomplicated; G47.33 Obstructive sleep apnea (adult) (pediatric); Z95.5 Presence of coronary angioplasty implant and graft
CPT/HCPCS: 93798

== ENCOUNTER 2022-03-07 15:45 | Outpatient (RCR) | payer MEDICARE, OTHER, SELFPAY ==
[2022-02-14 13:29] VITALS: BMI 28.4
[2022-02-27 00:19] VITALS: BP 112/54; BP 98/50
== END 2022-03-29 23:59 ==
LOC: CR 15:45
PROVIDERS: PCP Internal Medicine; Referring Provider Internal Medicine Cardiovascular Disease; Visit Provider Internal Medicine Cardiovascular Disease
DX: J44.9 Chronic obstructive pulmonary disease, unspecified (principal); F17.210 Nicotine dependence, cigarettes, uncomplicated; G47.33 Obstructive sleep apnea (adult) (pediatric); Z95.5 Presence of coronary angioplasty implant and graft
CPT/HCPCS: 93798

== ENCOUNTER → 2022-06-09 | Outpatient (CLI) | payer MEDICARE, OTHER, SELFPAY ==
[2022-01-17 10:26] VITALS: BMI 28.5
[2022-02-14 13:29] VITALS: BMI 28.4
--- NOTE | 2022-06-09 15:40 | CT_ITS ---
INDICATION: Known lung mass, follow-up EXAMINATION: CT CHEST WITHOUT CONTRAST - CT Chest W/O Contrast Injection TECHNIQUE: Helically acquired images were obtained of the chest. A radiation dose optimization technique was used for this scan. IV Contrast dosage and agent: None. COMPARISON: 12/29/2021 FINDINGS: LUNGS, PLEURA AND LARGE AIRWAYS: Lung windows again show underlying emphysema with bleb formation throughout both lung bae. Stable nonspecific pleural thickening in both hemithoraces. Stable pleural calcifications. Previously noted 1 cm pleural-based nodule in the peripheral left lower lobe is unchanged. No new suspicious noncalcified mass or nodule. No organized infiltrate. No pneumothorax. THYROID: No thyroid lesions. HEART AND PERICARDIUM: There is very remote CABG. No pericardial effusion. VESSELS: Thoracic aorta is not dilated. MEDIASTINUM AND JUANA: No mediastinal or hilar adenopathy. Esophagus is unremarkable. No hiatal hernia. UPPER ABDOMEN: Limited cuts through the upper abdomen show punctate nonobstructing left renal stone. BONES: Stony structures show degenerative change CT/Chest without Contrast IMPRESSION: Stable 1 cm pleural-based nodule in the lateral left lower lobe on axial image 99. Continued 6 month follow-up until spring of next year Underlying emphysema with chronic interstitial changes, no superimposed acute pulmonary process. Stable nonspecific pleural thickening in both hemithoraces, stable calcified pleural plaques Remote CABG Degenerative bony changes Nonobstructing left nephrolithiasis Electronically Signed: Baljinder Fragoso MD at 10:52 EDT ,
== END | disposition home or self-care (01) ==
LOC: CT 15:39
PROVIDERS: PCP Internal Medicine; Referring Provider Nurse Practitioner Acute Care; Visit Provider Nurse Practitioner Acute Care
DX: R91.1 Solitary pulmonary nodule (principal)
CPT/HCPCS: 71250

== ENCOUNTER 2022-07-13 16:44 | Emergency (ER) | payer MEDICARE, OTHER, SELFPAY ==
[2022-02-14 13:29] VITALS: BMI 28.4
[2022-07-13 16:46] VITALS: BP 165/86; PULSE 77; RESP 17; TEMP 36.4; O2SAT 95; BMI 26.9
--- NOTE | 2022-07-13 17:23 | EX.ED.GENINJ ---
HPI History of Present Illness Chief Complaint: Chest Other Narrative Narrative: 67-year-old male presenting with right rib pain. He states that few days ago he was coughing and fell and hit his ribs. He states that the coughing episode caused him to faint. He woke up on the floor and he had mild pain in the right ribs. He states that he might of hit his head but is unsure. He has not had any dizziness, lightheadedness, nausea, vomiting, visual complaints. He denies neck pain. He states that he did fall on his right arm and shoulder but this either is not painful. Patient states he felt so well that he went out to go golfing today and while he was playing he noticed the muscle spasm in the right ribs and he had to stop golfing. Patient is not had fever, chills, body aches. No nausea or vomiting. Patient states he has had episodes of fainting in the past. He is not short of breath. PFSH PFSH Medical History Achilles tendinitis of both lower extremities Alcohol use Arthritis Atherosclerosis of coronary artery bypass graft without angina pectoris Atherosclerosis of coronary artery of [place] heart without angina pectoris CAD (coronary artery disease) Cardiology follow-up encounter Chronic bronchitis COPD (chronic obstructive pulmonary disease) DDD (degenerative disc disease), lumbar Diverticulitis Easy bruising Excessive bleeding Gastric reflux High cholesterol History of diverticulitis History of echocardiogram History of stress test History of ulceration Hyperlipidemia Hypertension Hypertension Marijuana use Nicotine dependence Nodule of lower lobe of left lung On home oxygen therapy Osteoarthritis Perforated diverticulum of large intestine Presence of stent in coronary artery (~11/12/21) Shortness of breath on exertion Smoker Home Medications aspirin 81 mg tablet,delayed release (Adult [facility]irin Reg[facility]) [facility] [History Last Taken 05/17/21] omeprazole 20 mg capsule,delayed release 20 mg PO BID reflux 05/11/21 [History Last Taken Unknown] rosuvastatin 40 mg tablet 40 mg PO DAILY #90 tabs 07/19/21 [Rx Last Taken Unknown] albuterol sulfate 90 mcg/actuation aerosol inhaler 2 puff inhalation Q6H PRN sob #8.5 grams 08/05/21 [Rx Last Taken Unknown] clopidogrel 75 mg tablet (Plavix) 75 mg PO DAILY anti platelet #90 tabs 10/04/21 [Rx Last Taken Unknown] furosemide 40 mg tablet See Rx Instructions .Route .COMPLEX #90 tabs 10/25/21 [Rx Last Taken Unknown] losartan 50 mg tablet 50 mg PO QDAY 11/15/21 [History Last Taken Unknown] potassium chloride 20 mEq tablet,extended release(part/cryst) (Klor-Con M) 20 meq PO DAILY #30 tabs 11/15/21 [Rx Last Taken Unknown] metoprolol succinate 50 mg tablet,extended release 24 hr 50 mg PO BID 02/01/22 [History Last Taken Unknown] budesonide-formoterol HFA 160 mcg-4.5 mcg/actuation aerosol inhaler (Symbicort) 2 puff inhalation BID #1 ea 03/07/22 [Rx Last Taken Unknown] tiotropium bromide 2.5 mcg/actuation mist for inhalation (Spiriva Respimat) 2 puff inhalation QAM #4 grams 05/25/22 [Rx Last Taken Unknown] isosorbide mononitrate 30 mg tablet,extended release 24 hr 30 mg PO DAILY #30 tabs 05/31/22 [Rx Last Taken Unknown] ipratropium 0.5 mg-albuterol 3 mg (2.5 mg base)/3 mL nebulization soln 3 ml continuous nebulization Q6H PRN shortness of breath or wheezing #180 mL 06/14/22 [Rx Last Taken Unknown] hydrocodone-acetaminophen 5-325mg 5mg-325mg 1 tab PO Q6H PRN pain 3 days #12 tabs 07/13/22 [Rx Last Taken Unknown] lidocaine 5 % topical patch (Lidoderm) 1 patch topical DAILY PRN rib pain #15 ea 07/13/22 [Rx Last Taken Unknown] Allergy/AdvReac Type Severity Reaction Status Date / Time levofloxacin [From Levaquin] AdvReac Severe tendonitis Verified 07/13/22 16:45 Family History Father CAD (coronary artery disease) Brother Hypertension Grandfather Pancreatic cancer Grandmother Heart disease Surgical History H/O coronary artery bypass surgery (10/14/96) History of appendectomy History of cardiac catheterization History of colectomy History of left knee replacement History of partial colectomy History of tonsillectomy Hx of left cataract extraction Hx of right cataract extraction Presence of coronary angioplasty implant and graft (~09/29/21) S/p bilateral carpal tunnel release Status post double vessel coronary artery bypass Social History Smoking Status: Current every day smoker tobacco type: cigarettes alcohol intake: current alcohol intake frequency: 0-2 drinks per day substance use type: does not use caffeine: Yes Type: coffee Number of servings: 2 what type of physical activity do you participate in: none seatbelt use: always do you feel safe at home: Yes ROS ROS ED Constitutional Constitutional ED: Denies chills or fever(s) Eyes Eyes: Denies blurry vision ENT ENT ED: Denies rhinorrhea Cardiovascular Cardiovascular: Reports other Details: Right posterior rib pain ; Denies palpitations Respiratory/Chest Respiratory/Chest: Denies dyspnea Gastrointestinal Gastrointestinal: Denies abdominal pain, nausea or vomiting Genitourinary Genitourinary ED: Denies dysuria or hematuria Musculoskeletal Musculoskeletal: Denies neck pain Integumentary Denies abscess or Abrasions Neurologic Neurologic: Denies headache(s) or paresthesias Psychiatric Psychiatric: Denies anxiety or depression EXAM Physical Exam Const Vital Signs: 07/13/22 16:46 07/13/22 17:08 Temperature 97.6 F L Temperature Source Temporal Pulse Rate 77 Respiratory Rate 17 Respiratory Effort Short of Breath Blood Pressure 165/86 H Blood Pressure Mean 112 Pulse Ox 95 Oxygen Delivery Method Room Air Positive well nourished General Appearance ED: NAD HEENT atraumatic Eyes PERRL and EOMs intact bilaterally Neck full ROM Chest Wall inspection of chest normal Chest Narrative: Right posterior lower ribs tender to palpation. No ecchymosis or abrasion. Equal symmetric breath sounds or chest wall rise Resp normal respiratory effort and clear to auscultation bilaterally Auscultation: Negative for rales, rhonchi or wheezes Cardio regular rhythm Rate: regular rate Back/Spine no thoracic nor lumbar tenderness Extremity normal to inspection Neuro oriented x3 and CN's II-XII intact bilaterally Sensorium / Orientation: alert Motor Exam: strength 5/5 throughout Psych mental status grossly normal and thought process normal Skin no rashes or lesions noted, no wounds and no jaundice MDM MDM MDM Narrative Medical decision making narrative: Presenting with rib contusion and secondarily hurt his back while playing golf after he had a contusion. He was given [place] and Lidoderm patches. Patient does state that he had a coughing fit which caused him to faint but he has been doing well for days and has not had a repeat episode of this. He felt so well he could go golfing today. I do not believe he needs blood work. I obtained right rib series which on my interpretation does not show any acute abnormalities. The radiologist does agree and states that there are bilateral pleural effusions. These were present on CT previously. Patient not hypoxic or tachypneic. I will send him home with [place] and Lidoderm patches. Return precautions were discussed. Impression: 1. Right rib contusion 2. Muscle spasm Lab Data Attestation: I reviewed the patient's lab results. Radiography Diagnostic Testing: Clinical Impression(s) from Imaging Studies Ribs w/Chest X-Ray 07/13/22 17:35 IMPRESSION: Small bilateral pleural effusions. Electronically Signed: Lee Harrington MD at 18:05 EDT Reading Location ID and State: [facility] / [place] , Service support , Discharge Plan Triage Chief Complaint: Chest Other ED Provider: Esteban Carter Dx/Rx/DC Orders Instructions: ED Bruise, Rib Prescriptions: New hydrocodone-acetaminophen 5-325 mg tablet 1 tab PO Q6H PRN (Reason: pain) 3 Days Qty: 12 0RF lidocaine [Lidoderm] 5 % adhesive patch,medicated 1 patch topical DAILY PRN (Reason: rib pain) Qty: 15 0RF Rx Instructions: leave on most painful area for up to 12 hrs No Action aspirin [Adult Aspirin Regimen] 81 mg tablet,delayed release (DR/EC) 81 mg PO QDAY clopidogrel [Plavix] 75 mg tablet 75 mg PO DAILY Qty: 90 4RF albuterol sulfate 90 mcg/actuation HFA aerosol inhaler 2 puff INHALATION Q6H PRN (Reason: sob) Qty: 8.5 3RF omeprazole 20 mg capsule,delayed release(DR/EC) 20 mg PO BID metoprolol succinate 50 mg tablet extended release 24 hr 50 mg PO BID losartan 50 mg tablet 50 mg PO QDAY potassium chloride [Klor-Con M20] 20 mEq tablet,ER particles/crystals 20 meq PO DAILY Qty: 30 12RF Spiriva Respimat 2.5 mcg/actuation mist 2 puff inhalation QAM Qty: 4 5RF rosuvastatin 40 mg tablet 40 mg PO DAILY Qty: 90 3RF furosemide 40 mg tablet See Rx Instructions .ROUTE .COMPLEX Qty: 90 4RF Dose Instruction: TAKE 1 TABLET BY MOUTH EVERY DAY Rx Instructions: TAKE 1 TABLET BY MOUTH EVERY DAY budesonide-formoterol [Symbicort] 160-4.5 mcg/actuation HFA aerosol inhaler 2 puff inhalation BID Qty: 1 3RF Rx Instructions: administer with spacer, rinse mouth after each use isosorbide mononitrate 30 mg tablet extended release 24 hr 30 mg PO DAILY Qty: 30 11RF ipratropium-albuterol 0.5 mg-3 mg(2.5 mg base)/3 mL solution for nebulization 3 ml continuous nebulization Q6H PRN (Reason: shortness of breath or wheezing) Qty: 180 11RF Primary Care Provider: George Vázquez Referrals: George Vázquez MD [Primary Care Provider] - Disposition Disposition: Home, Self Care
[2022-07-13] MEDS: HYDROcodone Bitartrate/Apap 5/325 Tablet PO (17:27)
[2022-07-13] MEDS: Lidocaine 5% Patch 1 PATCH TOPICAL (17:27)
--- NOTE | 2022-07-13 17:35 | RAD_ITS ---
EXAM: XR RIGHT RIBS AND AP CHEST, 3 OR MORE VIEWS CLINICAL INDICATION: pain TECHNIQUE: Frontal and oblique views of the right ribs and frontal view of the chest. This report was created using [employer] report generation technology. COMPARISON: 09.14.21 FINDINGS: LUNGS AND PLEURAL SPACES: Small bilateral pleural effusions. No pneumothorax. HEART: Unremarkable. Cardiac silhouette not enlarged. MEDIASTINUM: Central airways and mediastinal contour are unremarkable. BONES/JOINTS: Multiple median sternotomy wires are noted consistent for cardiac surgery. There are degenerative findings of the thoracic spine. No evidence of displaced rib fractures. RAD/Ribs Uni Min 3V w/PA Chest IMPRESSION: Small bilateral pleural effusions. Electronically Signed: Lee Harrington MD at 18:05 EDT ,
[2022-07-13 18:44] VITALS: BP 147/67; PULSE 82; RESP 16; O2SAT 95
== END 2022-07-13 18:45 | disposition home or self-care (01) ==
PROVIDERS: Emergency Provider Student in an Organized Health Care Education/Training Program; PCP Internal Medicine; Visit Provider Student in an Organized Health Care Education/Training Program
DX: S20.211A Contusion of right front wall of thorax, initial encounter (principal); J44.9 Chronic obstructive pulmonary disease, unspecified; W19.XXXA Unspecified fall, initial encounter; M62.838 Other muscle spasm; I25.10 Atherosclerotic heart disease of native coronary artery without angina pectoris; M51.36 Other intervertebral disc degeneration, lumbar region; Z87.19 Personal history of other diseases of the digestive system; K21.9 Gastro-esophageal reflux disease without esophagitis; E78.00 Pure hypercholesterolemia, unspecified; I10 Essential (primary) hypertension; Z95.1 Presence of aortocoronary bypass graft; Z99.81 Dependence on supplemental oxygen; Z79.82 Long term (current) use of aspirin; Z79.899 Other long term (current) drug therapy; Z79.02 Long term (current) use of antithrombotics/antiplatelets; F17.210 Nicotine dependence, cigarettes, uncomplicated
CPT/HCPCS: 71101; 99283

== ENCOUNTER → 2022-07-28 | Outpatient (CLI) | payer MEDICARE, OTHER, SELFPAY ==
[2022-02-14 13:29] VITALS: BMI 28.4
[2022-07-28 15:40] LABS: Erythrocyte Sedimentation Rate 10 mm/hr (0-20)
[2022-07-28 16:18] LABS: CRP < 2.90 mg/L (0.0-3.0)
[2022-07-30 18:07] LABS: Endomysial Antibody IgA Negative (Negative)
[2022-07-31 09:37] LABS: Immunoglobulin A 176 mg/dL (61-437); t-Transglutaminase IgA <2 U/mL (0-3)
[2022-08-01 13:07] LABS: Anti-Centromere B Ab <0.2 AI (0.0-0.9); Anti-Chromatin <0.2 AI (0.0-0.9); Anti-Jo <0.2 AI (0.0-0.9); Anti-Scleroderma-70 AB <0.2 AI (0.0-0.9); RNP Ab 0.2 AI (0.0-0.9); SJOGREN'S Anti-SS-A test < 0.2 AI (0.0-0.9); SJOGREN'S Anti-SS-B test < 0.2 AI (0.0-0.9); Smith Ab <0.2 AI (0.0-0.9)
[2022-08-01 14:47] LABS: Anti-dsDNA Ab <1 IU/mL (0-9)
[2022-08-05 19:07] LABS: Albumin 3.5 g/dL (2.9-4.4); Alpha-1-Globulins 0.3 g/dL (0.0-0.4); Alpha-2-Globulins 0.9 g/dL (0.4-1.0); Cytoplasmic Ab (C-ANCA) <1:20 titer (Neg:<1:20); Gamma Globulin 0.8 g/dL (0.4-1.8); Immunoglobulin A 175 mg/dL (61-437); Immunoglobulin G 789 mg/dL (603-1613); Immunoglobulin M 105 mg/dL (20-172); PROEL- TOTAL PROTEIN 6.3 g/dL (6.0-8.5)
[2022-08-06 10:28] LABS: Immunoglobulin E 94 IU/mL (6-495); Perinuclear Ab (P-ANCA) <1:20 titer (Neg:<1:20)
== END | disposition home or self-care (01) ==
LOC: LAB 14:57
PROVIDERS: PCP Internal Medicine; Referring Provider Internal Medicine Gastroenterology; Visit Provider Internal Medicine Gastroenterology
DX: R10.9 Unspecified abdominal pain (principal)
CPT/HCPCS: 36415; 82784; 82785; 83516; 84165; 85652; 86140; 86225; 86235; 86255; 86256; 86334

== ENCOUNTER → 2022-08-31 | Outpatient (CLI) | payer MEDICARE, OTHER, SELFPAY ==
[2022-02-14 13:29] VITALS: BMI 28.4
--- NOTE | 2022-08-31 09:58 | NM_ITS ---
CLINICAL: 67-year-old male with history of clinical gastroparesis. SEMI-SOLID PHASE 99m Tc SULFUR COLLOID GASTRIC EMPTYING STUDY COMPARISON: None available FINDINGS: The patient was administered 1.0 mCi of 99m Tc sulfur colloid mixed with oatmeal and consumed per os. Image acquisitions in the anterior-posterior projections were obtained for 60 minutes. There is prompt visualization of the stomach. There is no gastroesophageal reflux identified. The T ? emptying was calculated to be 48.75 minutes, (Normal: 12-56 minutes). NM/Gastric Emptying Study IMPRESSION: 1. NORMAL 99m Tc sulfur colloid semi-solid phase (oatmeal) gastric emptying imaging examination. A. There is upper limits of normal and preserved semi-solid phase gastric emptying compared to normal controls. (Jewels et al, J Nucl Med Tech 38: 186, 2010). Electronically Signed: Efren Le, at 21:07 EDT ,
== END | disposition home or self-care (01) ==
PROVIDERS: PCP Internal Medicine; Referring Provider Internal Medicine Gastroenterology; Visit Provider Internal Medicine Gastroenterology
DX: K31.84 Gastroparesis (principal); R10.9 Unspecified abdominal pain
CPT/HCPCS: 78264; A9541

== ENCOUNTER 2022-10-03 15:00 | Outpatient (RCR) | payer MEDICARE, OTHER, SELFPAY ==
[2022-02-14 13:29] VITALS: BMI 28.4
--- NOTE | 2022-04-25 17:06 | HP.PTEVAL ---
Patient's Visit Information RAISA SMILEY is a 66 year old M referred to Physical Therapy by AARON CruzM with a diagnosis of unsteady gait. Date of Evaluation: 04/25/22 Physical Therapist: Lee Freeman, PT, ATC - Visit Plan Frequency: 2-3x /Week Duration: 4-6 Weeks Plan: B LE strengtheing, balance and proprio, stair negotiation, gait training, bike, and HEP - Subjective Pt reports he has really noticed his balance getting worse over the past 6 months. Pt reports he feels very unsteady, especially when he is taking a shower. Pt denies any tingling or numbness in his LE's. Pt reports he like to golf and notes he has difficulty at this time secondary to steadiness. Pt denies any falls in the past secondary to pain. Pt denies having used an Assistive device in the past. Pt reports he is still working at this time. Pt reports he has stairs at home and has a lot of difficulty secondary to fatigue. Pt reports his goal is to get better balance in an attempt to prevent future falls. Pt denies any pain at this time. - Objective Neuro: B LE sensation is WNL to light touch. B patellar reflex= 2/3. ROM: B LE's are WFL compared bilaterally. MMT: B LE's are rated at 4/5 throughout. Gait: No sig deviations this date. FGA: - MODERATE FALL RISK - Balance/Special Test Scores Functional Gait Assessment Score: 21 % Disability: 30.0000 Lower Extremity Functional Score: 41 - Goals Goal 1:: Increase B LE strength x 1 grade to aid with stair negotiation Goal Time Frame: 4-6 Weeks Goal 2:: Increase FGA score x 5 points to aid with preventing future falls Goal Time Frame: 4-6 Weeks Goal 3:: I with HEP Goal Time Frame: 4-6 Weeks - Rehabilitation Potential Physical Therapy Diagnosis: Pt has LE weakness and unsteady gait secondary to generalized debility Rehabilitation Potential: Good - Anticipated Interventions Patient/Client Instruction: Educate patient on: Condition, Plan of Care For the Purpose of:: To improve self management Therapeutic Exercise to Include: Strength training, Endurance training, Balance training, Dynamic Lumbar Stabilization For the Purpose of:: To improve muscle performance and motor function, To increase tolerance to activity/condition/position, To improve performance and independence with ADL's Thank you for the opportunity to evaluate your patient. For Medicare and Medicare HMO plans, please review the plan of care and approve it. It will need to be FAXED BACK to us at [phone] for Medicare purposes. For Medicare only, by signing this I certify the plan of care. Please let me know if there are questions or concerns regarding this plan of care. Physician Signature: Date:
== END 2022-10-03 19:00 | disposition home or self-care (01) ==
LOC: PT 15:00
PROVIDERS: PCP Internal Medicine; Referring Provider Podiatrist Foot & Ankle Surgery; Visit Provider Podiatrist Foot & Ankle Surgery
DX: M62.84 Sarcopenia (principal); R26.81 Unsteadiness on feet
CPT/HCPCS: 97110; 97161

== ENCOUNTER → 2022-10-27 | Outpatient (CLI) | payer MEDICARE, OTHER, SELFPAY ==
[2022-02-14 13:29] VITALS: BMI 28.4
== END | disposition home or self-care (01) ==
LOC: PSN 12:56
PROVIDERS: PCP Internal Medicine; Visit Provider Nurse Practitioner Acute Care
DX: R05.9 Cough, unspecified (principal)
CPT/HCPCS: 87633; C9803

== ENCOUNTER 2022-10-28 02:37 | Inpatient (IN) | payer MEDICARE, OTHER, SELFPAY ==
[2022-02-14 13:29] VITALS: BMI 28.4
[2022-10-28] VITALS (18 sets, daily range): BP systolic 114–149; BP diastolic 69–99; PULSE 79–124; RESP 16–30; TEMP 36.4–37.1; O2SAT 85–97; BMI 26.4; BMI 26.6
--- NOTE | 2022-10-28 02:44 | EKG12_ITS ---
Test Reason : DYSRHYTHMIA Blood Pressure : / mmHG Vent. Rate : 115 BPM Atrial Rate : 115 BPM P-R Int : 136 ms QRS Dur : 130 ms QT Int : 346 ms P-R-T Axes : 082 -74 079 degrees QTc Int : 478 ms Sinus tachycardia Left axis deviation Right bundle branch block Abnormal ECG Confirmed by MORALES LOPEZ, ANGELA ([id number]), publication editor REBEL PRICE ([id number]) on 11/01/2022 1:06:03 PM Referred By: CATINA Confirmed By:ANGELA NIELSEN MD
--- NOTE | 2022-10-28 02:44 | RAD_ITS ---
CLINICAL INDICATION: Shortness of Breath TECHNIQUE: Frontal view of the chest. This report was created using [employer] report generation technology. COMPARISON: Previous chest radiograph of 07/13/2022. FINDINGS: LUNGS AND PLEURAL SPACES: Chronic bibasilar pleural parenchymal scarring with blunting of the costophrenic angles, right greater than left. No acute pulmonary infiltrates. Right-sided peribronchial cuffing, indicating bronchial wall inflammation. No pneumothorax. HEART: Heart size remains within normal limits, with normal pulmonary vasculature. Findings of previous median sternotomy and CABG. MEDIASTINUM: Previous median sternotomy and CABG. Minimal elongation of the thoracic aorta. BONES/JOINTS: No acute osseous abnormality. Old fracture of the posterior right eighth rib. Mild degenerative osteoarthritis of both shoulders. Thoracic degenerative spurring. SOFT TISSUES: Unremarkable. RAD/Chest 1 View (Portable) IMPRESSION: Previous CABG. Peribronchial cuffing indicating bronchial wall inflammation/bronchitis. No pneumonia or pulmonary edema. Bibasilar scarring. Electronically Signed: Terrance Wright MD at 3:41 EST ,
--- NOTE | 2022-10-28 02:45 | EDS_ITS ---
HPI History of Present Illness Chief Complaint: Shortness of Breath Associated Symptoms cough Chest Pain: Positive for None Narrative Narrative: 67-year-old male past medical history of COPD, smoker, has had increasing shortness of breath over the last 3 to 4 days. He states he called his spa therapist, Dr. Farooq Hall, and he was supposed to have respiratory swabs performed as an outpatient. He does not wear oxygen at home. He states he has been using his albuterol, Symbicort, and recently started prednisone on Monday for leg pain and swelling, but he is having increasing shortness of breath. He states that despite all of these medications, he is still having a hard time breathing. PFSH PFSH Medical History Achilles tendinitis of both lower extremities Alcohol use Arthritis Atherosclerosis of coronary artery bypass graft without angina pectoris Atherosclerosis of coronary artery of [place] heart without angina pectoris CAD (coronary artery disease) Cardiology follow-up encounter Chronic bronchitis COPD (chronic obstructive pulmonary disease) DDD (degenerative disc disease), lumbar Diverticulitis Easy bruising Excessive bleeding Gastric reflux High cholesterol History of diverticulitis History of echocardiogram History of stress test History of ulceration Hyperlipidemia Hypertension Hypertension Marijuana use Nicotine dependence Nodule of lower lobe of left lung On home oxygen therapy Osteoarthritis Perforated diverticulum of large intestine Presence of stent in coronary artery (~11/12/21) Shortness of breath on exertion Smoker Home Medications aspirin 81 mg tablet,delayed release (Adult Aspirin Regimen) 81 mg PO QDAY [facility] 04/23/18 [History Last Taken 05/17/21] omeprazole 20 mg capsule,delayed release 20 mg PO BID reflux 05/11/21 [History Last Taken Unknown] albuterol sulfate 90 mcg/actuation aerosol inhaler 2 puff inhalation Q6H PRN sob #8.5 grams 08/05/21 [Rx Last Taken Unknown] clopidogrel 75 mg tablet (Plavix) 75 mg PO DAILY anti platelet #90 tabs 10/04/21 [Rx Last Taken Unknown] furosemide 40 mg tablet See Rx Instructions .Route .COMPLEX #90 tabs 10/25/21 [Rx Last Taken Unknown] losartan 50 mg tablet 50 mg PO QDAY 11/15/21 [History Last Taken Unknown] potassium chloride 20 mEq tablet,extended release(part/cryst) (Klor-Con M) 20 meq PO DAILY #30 tabs 11/15/21 [Rx Last Taken Unknown] metoprolol succinate 50 mg tablet,extended release 24 hr 50 mg PO BID 02/01/22 [History Last Taken Unknown] budesonide-formoterol HFA 160 mcg-4.5 mcg/actuation aerosol inhaler (Symbicort) 2 puff inhalation BID #1 ea 03/07/22 [Rx Last Taken Unknown] isosorbide mononitrate 30 mg tablet,extended release 24 hr 30 mg PO DAILY #30 tabs 05/31/22 [Rx Last Taken Unknown] ipratropium 0.5 mg-albuterol 3 mg (2.5 mg base)/3 mL nebulization soln 3 ml continuous nebulization Q6H PRN shortness of breath or wheezing #180 mL 06/14/22 [Rx Last Taken Unknown] hydrocodone-acetaminophen 5-325mg 5mg-325mg 1 tab PO Q6H PRN pain 3 days #12 tabs 07/13/22 [Rx Last Taken Unknown] lidocaine 5 % topical patch (Lidoderm) 1 patch topical DAILY PRN rib pain #15 ea 07/13/22 [Rx Last Taken Unknown] rosuvastatin 40 mg tablet 40 mg PO DAILY #90 tabs 07/29/22 [Rx Last Taken Unknown] nicotine 21mg/24hr-14mg/24hr-7mg/24hr daily transderm patches,sequentl See Rx Instructions transdermal .COMPLEX #56 patches 08/04/22 [Rx Last Taken Unknown] Allergy/AdvReac Type Severity Reaction Status Date / Time levofloxacin [From Levaquin] AdvReac Severe tendonitis Verified 10/25/22 13:02 Family History Father CAD (coronary artery disease) Brother Hypertension Grandfather Pancreatic cancer Grandmother Heart disease Surgical History H/O coronary artery bypass surgery (10/14/96) History of appendectomy History of cardiac catheterization History of colectomy History of left knee replacement History of partial colectomy History of tonsillectomy Hx of left cataract extraction Hx of right cataract extraction Presence of coronary angioplasty implant and graft (~09/29/21) S/p bilateral carpal tunnel release Status post double vessel coronary artery bypass Social History Smoking Status: Current every day smoker tobacco type: cigarettes alcohol intake: current alcohol intake frequency: 0-2 drinks per day substance use type: does not use caffeine: Yes Type: coffee Number of servings: 2 what type of physical activity do you participate in: none seatbelt use: always do you feel safe at home: Yes ROS ROS ED ROS Narrative Constitutional: No fever, no chills. HEENT: No sore throat. No neck pain. No loss of vision. No rhinorrhea. Cardiovascular: No chest pain. No palpitations. No pedal edema. Respiratory: Positive cough, increasing dyspnea on exertion and shortness of breath. Abdominal: No abdominal pain. No nausea. No vomiting. Genitourinary: No dysuria. No hematuria. Musculoskeletal: No myalgias. No arthralgias. Neurologic: No headaches. No dizziness. No lightheadedness. Skin: No rash. No change in color. Psychiatric: No depression. No anxiety. EXAM Physical Exam Narrative Exam Narrative: Afebrile. Vital signs noted. HEENT: Normocephalic. Atraumatic. PERRL, EOMI. Neck soft and supple. No point tenderness or step off. Cardiovascular: Regular rate and rhythm. No murmurs, rubs, or gallops appreciated. Respiratory: Positive tachypnea. Decreased breath sounds bilateral bases with occasional expiratory wheeze. No accessory muscle use. Gastrointestinal: Abdomen soft, nontender, with normoactive bowel sounds. No rebound or guarding. Neurological: Awake. Alert. Nonfocal, nonlateralizing. Skin: No rash. Normal color. No pallor. Musculoskeletal: No pedal edema. Full range of motion extremities. Const Vital Signs: 10/28/22 02:41 10/28/22 02:38 10/28/22 02:47 Temperature 97.9 F 97.9 F Temperature Source Temporal Temporal Pulse Rate 124 H 123 H Respiratory Rate 28 H 28 H Respiratory Effort Respiratory Depth Deep Respiratory Pattern Tachypnea Blood Pressure 149/83 H 149/83 H Blood Pressure Mean 105 105 Pulse Ox 85 94 Oxygen Delivery Method Room Air Nasal Cannula Nasal Cannula Oxygen Flow Rate (L/min) 2 2 10/28/22 02:56 10/28/22 02:56 Temperature Temperature Source Pulse Rate 122 H Respiratory Rate 24 H 26 H Respiratory Effort Normal Non-Labored Short of Breath Respiratory Depth Shallow Respiratory Pattern Tachypnea Tachypnea Blood Pressure Blood Pressure Mean Pulse Ox 94 Oxygen Delivery Method Nasal Cannula Oxygen Flow Rate (L/min) 2 MDM MDM MDM Narrative Medical decision making narrative: Patient's pulse ox was 85% on room air upon arrival. He was placed on nasal cannula oxygen 2 L with resultant pulse ox of 94%. He will be given Solu-Medrol 125 mg intravenously along with a DuoNeb aerosolized treatment. COPD exacerbation work-up was pursued including EKG, chest x-ray, CBC, BMP, troponin, and BNP. Chest x-ray interpreted by myself shows COPD and hyperinflation. CBC shows normal white count of 6.5, hemoglobin normal at 14.5, hematocrit 43.8. Platelet count 222. Sodium 134 with potassium 3.4, BUN elevated at 23 with creatinine 1.60 and slightly elevated. Glucose slightly elevated at 118 with a normal anion gap of 8. High-sensitivity troponin is 31. EKG interpreted by myself demonstrates sinus tachycardia at 115 bpm with a right bundle branch block but no acute ST changes. No STEMI. BNP normal at 60.4. Upon repeat examination after Solu-Medrol and DuoNeb, he states he feels improved. Respiratory swab for COVID and influenza are negative. Given his hypoxia and COPD exacerbation, patient was discussed with Dr. Henriquez for admission. Disposition is admitted in stable condition. Lab Data Attestation: I reviewed the patient's lab results. Labs: Laboratory Results - last 24 hr 10/28/22 10/28/22 10/28/22 02:47 02:47 02:47 WBC 6.5 RBC 4.72 Hgb 14.5 Hct 43.8 MCV 92.8 MCH 30.7 MCHC 33.1 RDW Std Deviation 45.6 H RDW Coeff of Lisa 13.3 Plt Count 222 MPV 9.0 Immature Gran % (Auto) 0.300 Neut % (Auto) 76.8 H Lymph % (Auto) 12.7 L [place] % (Auto) 10.0 Eos % (Auto) 0.0 Baso % (Auto) 0.2 Absolute Neuts (auto) 5.0 Absolute Lymphs (auto) 0.83 Nucleated RBC % 0 Sodium 134 L Potassium 3.4 L Chloride 97 L Carbon Dioxide 29.0 Anion Gap 8 BUN 23 H Creatinine 1.60 H Estim Creat Clear Calc 41.31 Est GFR (MDRD) Af Amer 56 L Est GFR (MDRD) Non-Af 46 L BUN/Creatinine Ratio 14.4 Glucose 118 H Calcium 9.3 Troponin I High Sens 31 B-Natriuretic Peptide 60.4 Radiography Chest X-Ray - ED: Read by ED Physician Discharge Plan Dx/Rx/DC Orders Clinical Impression: COPD exacerbation, Hypoxia, Dyspnea Disposition Disposition: Acute Care Hospital [facility]
[2022-10-28] MEDS: MethylPREDNISolone 125 MG/2 ML Vial IV (02:51)
[2022-10-28 02:52] LABS: Absolute Lymphocyte Count 0.83 X10^3/uL (0.83-4.51); Basophil# 0.01 X10^3/uL; Basophil% 0.2 % (0-1); Hematocrit 43.8 % (40-54); Hemoglobin 14.5 g/dL (13.0-16.5); Lymphocyte # 0.83 X10^3/ul (0.83-4.51); Lymphocyte % 12.7 % (19-41); Mean Corp Hgb Conc 33.1 g/dL (32-36); Mean Corpuscular Hgb 30.7 pg (27.0-32.0); Mean Corpuscular Volume 92.8 fL (80-94); Monocyte# 0.65 X10^3/uL; NRBC Flagged by Analyzer 0 % (0-5); Neutrophil % 76.8 % (47-70); Platelet Count 222 K/mm3 (150-450); RBC Distribution Width CV 13.3 % (11.6-14.6); RBC Distribution Width SD 45.6 fl (35.1-43.9); Red Blood Count 4.72 M/mm3 (4.6-6.2); White Blood Count 6.5 K/mm3 (4.4-11.0)
[2022-10-28] MEDS: Ipratropium/Albuterol Sulfate 3 ML AMPUL.NEB INHALATION ×5 (02:56→19:27)
[2022-10-28 03:14] LABS: Anion Gap 8 (5-15); BUN 23 mg/dL (7-18); BUN/Creat Ratio 14.4 RATIO (10-20); Calcium,Total 9.3 mg/dL (8.5-10.1); Chloride 97 mmol/L (98-107); EST Glomerular Filtration Rate 46 mL/min (>60); Est Glom Filt Rate - Afr Amer 56 mL/min (>60); Estimated Creatinine Clearance 41.31 ml/min; Glucose 118 mg/dL (74-106); Potassium 3.4 mmol/L (3.5-5.1); Sodium Level 134 mmol/L (136-145); Troponin-I HS 31 pg/mL (3.0-78.0)
[2022-10-28 03:25] LABS: BNP,B-Type NATRIURETIC PEPTIDE 60.4 pg/mL (0-100)
--- NOTE | 2022-10-28 03:38 | HP.PCM.HOS_ITS ---
HPI - General General Date of Admission: 10/28/22 Date of Service: 10/28/22 Chief Complaint: Dyspnea, cough, fatigue. HPI Narrative The patient is a 67 y/o M w/ PMHx: CAD s/p PCI and CABG, HTN, HLD, COPD, Tobacco use, Hx Diverticular disease s/p partial colectomy, Suspected MIKE per most recent Pulmonary evaluation note 08/04/22 who presents to the [facility] ED on 10/28/22 with history of increased dyspnea over the last 3 to 4 days prompting him to call his pulmonology office that that time planned outpatient respiratory swab was performed 10/27/2022 and has resulted with a positive influenza A on PCR testing with patient with ongoing usage of his home inhalers as well as Symbicort with start on prednisone on Monday however despite all this he has still continued to have significant dyspnea prompting eventual ED evaluation. Patient also reports concurrent increased cough although not marked sputum production. He denies any associated fevers or chills. Acute pain or rhinorrhea or any headaches. Work-up in the ED included T97.9, heart rate 124, BP 149/83, respiratory rate 28, initially 85% on room air improving to 94% on 2 L nasal cannula, CBC with WC 6.5, hemoglobin 14.5, platelet 222 without marked shift, BMP with sodium 134, potassium 3.4, chloride 97, BUN/creatinine 23/1.60, glucose 118, troponin 31, BNP 60.4, chest x-ray with evidence prior CABG, bibasilar scarring, peribronchial cuffing indicating bronchial wall infla mmation/bronchitis with no evidence of pneumonia or pulmonary edema, EKG with ST with RBBB without acute evidence of ischemia, rapid COVID antigen and influenza antigen negative. In the ED patient administered DuoNeb therapy as well as Solu-Medrol 125 mg IV x1. [facility] Medical History (Updated 10/28/22 @ 04:[address] Judy Henriquez MD) Achilles tendinitis of both lower extremities Arthritis Atherosclerosis of coronary artery bypass graft without angina pectoris Atherosclerosis of coronary artery of [place] heart without angina pectoris Chronic bronchitis COPD (chronic obstructive pulmonary disease) DDD (degenerative disc disease), lumbar Easy bruising Excessive bleeding Gastric reflux History of diverticulitis History of ulceration Hyperlipidemia Hypertension Marijuana use Nicotine dependence Nodule of lower lobe of left lung Osteoarthritis Perforated diverticulum of large intestine Presence of stent in coronary artery (~11/12/21) Home Medications omeprazole 20 mg capsule,delayed release 20 mg PO BID reflux 05/11/21 [History Last Taken Unknown] albuterol sulfate 90 mcg/actuation aerosol inhaler 2 puff inhalation Q6H PRN sob #8.5 grams 08/05/21 [Rx Last Taken Unknown] clopidogrel 75 mg tablet (Plavix) 75 mg PO DAILY anti platelet #90 tabs 10/04/21 [Rx Last Taken Unknown] furosemide 40 mg tablet See Rx Instructions .Route .COMPLEX #90 tabs 10/25/21 [Rx Last Taken Unknown] losartan 50 mg tablet 50 mg PO QDAY 11/15/21 [History Last Taken Unknown] metoprolol succinate 50 mg tablet,extended release 24 hr 50 mg PO BID 02/01/22 [History Last Taken Unknown] budesonide-formoterol HFA 160 mcg-4.5 mcg/actuation aerosol inhaler (Symbicort) 2 puff inhalation BID #1 ea 03/07/22 [Rx Last Taken Unknown] isosorbide mononitrate 30 mg tablet,extended release 24 hr 30 mg PO DAILY #30 ta bs 05/31/22 [Rx Last Taken Unknown] ipratropium 0.5 mg-albuterol 3 mg (2.5 mg base)/3 mL nebulization soln 3 ml continuous nebulization Q6H PRN shortness of breath or wheezing #180 mL 06/14/22 [Rx Last Taken Unknown] rosuvastatin 40 mg tablet 40 mg PO DAILY #90 tabs 07/29/22 [Rx Last Taken Unknown] albuterol sulfate 90 mcg/actuation aerosol inhaler inhalation 10/28/22 [History Last Taken Unknown] Allergy/AdvReac Type Severity Reaction Status Date / Time levofloxacin [From Levaquin] AdvReac Severe tendonitis Verified 10/25/22 13:02 Family History Father CAD (coronary artery disease) Brother Hypertension Grandfather Pancreatic cancer Grandmother Heart disease Surgical History H/O coronary artery bypass surgery (10/14/96) History of appendectomy History of cardiac catheterization History of colectomy History of left knee replacement History of partial colectomy History of tonsillectomy Hx of left cataract extraction Hx of right cataract extraction Presence of coronary angioplasty implant and graft (~09/29/21) S/p bilateral carpal tunnel release Status post double vessel coronary artery bypass Social History Smoking Status: Current every day smoker tobacco type: cigarettes alcohol intake: current alcohol intake frequency: 0-2 drinks per day substance use type: does not use caffeine: Yes Type: coffee Number of servings: 2 what type of physical activity do you participate in: none seatbelt use: always do you feel safe at home: Yes ROS ROS Narrative Admission Review of Systems: CONSTITUTIONAL: No weight loss, fever, chills, + weakness or fatigue. HEENT: Eyes: No visual loss, blurred vision, double vision or yellow sclerae. Ears, Nose, Throat: No hearing loss, sneezing, congestion, runny nose or sore throat. SKIN: No rash or itching, lesions, wounds. CARDIOVASCULAR: No chest pain, chest pressure or chest discomfort, palpitations, edema, orthopnea, syncopal events. RESPIRATORY: + shortness of breath, cough without marked sputum, wheezing, No hemoptysis. GASTROINTESTINAL: No anorexia, nausea, vomiting or diarrhea, abdominal pain, melena, BRBPR. GENITOURINARY: No dysuria, frequency, urgency or retention. NEUROLOGICAL: No headache, dizziness, syncope, paralysis, ataxia, numbness or tingling in the extremities, focal weakness, change in bowel or bladder control, seizure. MUSCULOSKELETAL: + muscle, back pain, joint pain or stiffness. HEMATOLOGIC: + easy bleeding or bruising. LYMPHATICS: No enlarged nodes. No history of splenectomy. PSYCHIATRIC: No history of depression or anxiety. ENDOCRINOLOGIC: No reports of sweating, cold or heat intolerance. No polyuria or polydipsia. ALLERGIES: No history of asthma, hives, eczema or rhinitis. Vital Signs Vital Signs Vital Signs: 10/28/22 02:41 10/28/22 02:38 10/28/22 02:47 Temperature 97.9 F 97.9 F Temperature Source Temporal Temporal Pulse Rate 124 H 123 H Respiratory Rate 28 H 28 H Respiratory Effort Respiratory Depth Deep Respiratory Pattern Tachypnea Blood Pressure 149/83 H 149/83 H Blood Pressure Mean 105 105 Pulse Ox 85 94 Oxygen Delivery Method Room Air Nasal Cannula Nasal Cannula Oxygen Flow Rate (L/min) 2 2 10/28/22 02:56 10/28/22 02:56 Temperature Temperature Source Pulse Rate 122 H Respiratory Rate 24 H 26 H Respiratory Effort Normal Non-Labored Short of Breath Respiratory Depth Shallow Respiratory Pattern Tachypnea Tachypnea Blood Pressure Blood Pressure Mean Pulse Ox 94 Oxygen Delivery Method Nasal Cannula Oxygen Flow Rate (L/min) 2 Weight Weight: 169 lb 1.513 oz Body Mass Index (BMI) 26.4 Physical Exam Narrative Physical Examination: General: Awake, alert, oriented x 3 and cooperative, seated upright in the ED bed, fatigued, notes chest still feels tight. Skin: Normal color, normal turgor, no icterus, no cyanosis except occasional staged ecchymoses. HEENT: AT/NC, EOMI, PERRLA, dry MM, no carotid bruits or JVD noted. Lungs: Significantly diffusely diminished, tight, mildly increased respiratory rate but no distress, occasional very soft distant wheeze but very poor air movement, no rales or rhonchi. Heart: Tachycardic with regular rhythm; no gallop, rub audible. Abdomen: Soft, NTTP, ND, normal BS, no HSM. Extremities: No cyanosis, clubbing, or edema. Neurological: Patient awake, alert, oriented as noted, cognitive function intact; pupils equally reactive to light and accommodation, cranial nerves II- XII grossly normal, moving all 4 extremities, no focal deficits, strength severely global to be secondary to acute presentation. Psychiatric: Affect appears fatigued, ill-appearing, no acute evidence of depressive or anxiety feelings. Results Lab / Micro Data Result Diagrams: 10/28/22 02:47 10/28/22 02:47 Labs: Laboratory Results - last 24 hr 10/28/22 02:47: WBC 6.5, RBC 4.72, Hgb 14.5, Hct 43.8, MCV 92.8, MCH 30.7, MCHC 33.1, RDW Std Deviation 45.6 H, RDW Coeff of Lisa 13.3, Plt Count 222, MPV 9.0, Immature Gran % (Auto) 0.300, Neut % (Auto) 76.8 H, Lymph % (Auto) 12.7 L, [place] % (Auto) 10.0, Eos % (Auto) 0.0, Baso % (Auto) 0.2, Absolute Neuts (auto) 5.0, Absolute Lymphs (auto) 0.83, Nucleated RBC % 0 10/28/22 02:47: Sodium 134 L, Potassium 3.4 L, Chloride 97 L, Carbon Dioxide 29.0, Anion Gap 8, BUN 23 H, Creatinine 1.60 H, Estim Creat Clear Calc 41.31, Est GFR (MDRD) Af Amer 56 L, Est GFR (MDRD) Non-Af 46 L, BUN/Creatinine Ratio 14.4, Glucose 118 H, Calcium 9.3, Troponin I High Sens 31 10/28/22 02:47: B-Natriuretic Peptide 60.4 Micro: Microbiology 10/28/22 02:50 Nasal Secretion SARS-CoV-2 & FLU Antigen (Rapid) - Final Assessment & Plan Assessment/Plan (1) Influenza A: (2) Hypoxia: (3) COPD exacerbation: PLAN: Plan The patient is a 67 y/o M w/ PMHx: CAD s/p PCI and CABG, HTN, HLD, COPD, Tobacco use, Hx Diverticular disease s/p partial colectomy, Suspected MIKE per most recent Pulmonary evaluation note 08/04/22 who presents to the [facility] ED on 10/28/22 with history of increased dyspnea over the last 3 to 4 days prompting him to call his pulmonology office that that time planned outpatient respiratory swab to be performed with + Influenza A on PCR with ongoing usage of his home inhalers as well as Symbicort with start on prednisone on Monday however despite all this he has still continued to have significant dyspnea prompting eventual ED evaluation. #1. Acute Hypoxia secondary to Acute on chronic COPD exacerbation secondary to Acute Influenza A Viral Syndrome: CXR with noted peribronchial cuffing indicating bronchial wall inflammation/bronchitis with no evidence of pneumonia or pulmonary edema. Will admit to [facility], maintain on oxygen with wean as tolerated to room air, continue ATC duonebs, PRN albuterol, continue IV solumedrol, initiate renally dosed tamiflu, HOB, IS parameters, as noted outpatient 10/27/22 respiratory influenza A + PCR testing. If patient clinically worsening from current presentation low threshold to involve Pulmonary medicine. #2. Hypokalemia: Admission K+ 3.4, magnesium level requested, supplementation given, repeat level in AM. #3. Mild acute renal insufficiency: Admission BUN/creatinine 23/1.60, baseline appears primarily 0.9-1.1, will continue judicious hydration, temporarily hold his losartan, repeat BMP in a.m., if any worsening of his renal function would obtain UFeNa assessment. #4. CAD: Status post PCI and CABG, will continue aspirin, Plavix, statin, metoprolol regimen, temporarily hold losartan home regimen. #5. Hypertension: Continue home regimen including Lasix, metoprolol, isosorbide, PRN hydralazine. Will temporarily hold losartan home regimen. #6. Hyperlipidemia: We will continue patient on statin therapy. #7. Tobacco Abuse: Encouraged cessation, inpatient consultation per RT, NR if desired. #8. History complicated diverticular disease: Patient status post partial colectomy, following with Dr. Javier recently for abdominal bloating and generalized abdominal complaints. #9. Suspected MIKE: Noted per most recent pulmonary note 08/04/2022, will place on a trending pulse oximeter. #10. GERD: We will continue patient on PPI. #11. DVT prophylaxis: SCDs, Lovenox. #12. CODE status: Patient TAI is his friend Tanvi Matos and living will is currently in place. Discussed CODE status at length including difference between FULL code, DNR-CCA and DNR-CC status. Following discussions about the differences in these status, requested Full Code status. Advanced Care Planning Face to Face Time: 16 minutes. Charges/Coding Visit Charges Inpatient E&M: 50669 Init Hosp L3 Procedures Hospitalists Procedures: 50410 Advncd Care Plan 30 Min
[2022-10-28 04:39] LABS: Magnesium 2.2 mg/dL (1.6-2.6)
[2022-10-28] MEDS: 0.9% Saline Lock 10 ML Syringe IV ×3 (05:14→22:42)
[2022-10-28] MEDS: 0.9% Normal Saline 1,000 ML 100 ML IV ×3 (05:14→22:43)
--- NOTE | 2022-10-28 05:20 | NURSING ---
Under emerggency charting
[2022-10-28] MEDS: Oseltamivir Phosphate 75 MG Capsule PO (05:35)
[2022-10-28] MEDS: Potassium Chloride Oral Tablet 20 MEQ 40 MEQ PO (05:40)
[2022-10-28 05:55] LABS: Absolute Lymphocyte Count 0.21 X10^3/uL (0.83-4.51); Absolute Neutrophil Count 6.1 X10^3/uL (2.0-7.7); Basophil# 0.01 X10^3/uL; Basophil% 0.2 % (0-1); Hematocrit 41.9 % (40-54); Hemoglobin 14.2 g/dL (13.0-16.5); Lymphocyte # 0.21 X10^3/ul (0.83-4.51); Lymphocyte % 3.2 % (19-41); Mean Corp Hgb Conc 33.9 g/dL (32-36); Mean Corpuscular Hgb 31.3 pg (27.0-32.0); Mean Corpuscular Volume 92.5 fL (80-94); Mean Platelet Vol. 9.1 fl (6.2-12.0); Monocyte# 0.26 X10^3/uL; Monocyte% 3.9 % (0-10); NRBC Flagged by Analyzer 0 % (0-5); Neutrophil # 6.08 X10^3/uL (2.7-7.7); Neutrophil % 92.2 % (47-70); POSITIVE DIFFERENTIAL YES; Platelet Count 201 K/mm3 (150-450); RBC Distribution Width CV 13.4 % (11.6-14.6); RBC Distribution Width SD 45.1 fl (35.1-43.9); Red Blood Count 4.53 M/mm3 (4.6-6.2); White Blood Count 6.6 K/mm3 (4.4-11.0)
[2022-10-28 06:00] LABS: Differential Indicated SCAN CRITERIA MET
[2022-10-28 06:12] LABS: AST(SGOT) 20 U/L (15-37); Alanine Aminotransfer ALT/SGPT 23 U/L (16-61); Albumin, Serum 3.5 g/dL (3.2-5.0); Alkaline Phosphatase 63 U/L (45-117); Anion Gap 7 (5-15); BUN 23 mg/dL (7-18); Calcium,Total 9.1 mg/dL (8.5-10.1); Chloride 98 mmol/L (98-107); Creatinine, Serum 1.44 mg/dL (0.70-1.30); EST Glomerular Filtration Rate 52 mL/min (>60); Est Glom Filt Rate - Afr Amer 63 mL/min (>60); Globulin 3.5 g/dL (2.2-4.2); Glucose 117 mg/dL (74-106); Potassium 3.7 mmol/L (3.5-5.1); Sodium Level 133 mmol/L (136-145)
[2022-10-28 06:20] LABS: Differential Comment SCANNED
[2022-10-28] MEDS: guaiFENesin 10 ML UDC (200MG/10ML) 20 ML PO ×3 (06:50→18:46)
[2022-10-28] MEDS: Metoprolol(XL)Succ 50 MG Tablet PO ×2 (08:56→22:41)
[2022-10-28] MEDS: Clopidogrel Bisulfate 75 MG Tablet PO (08:56)
[2022-10-28] MEDS: Pantoprazole Sodium 20 MG Tablet PO ×2 (08:56→22:41)
[2022-10-28] MEDS: Isosorbide Mononitrate 30 MG Tablet PO (08:57)
[2022-10-28] MEDS: Enoxaparin 30 MG/0.3 ML Syringe SC (08:57)
--- NOTE | 2022-10-28 12:08 | CASEMGMT ---
TOMMIE ANNA Assessment: Face to Face with pt for initial transition planning/care coordination assessment. TOMMIE ANNA introduced self and role at [facility], pt voices understanding and consents to assessment. Pt is A/O x4 and answers all questions appropriately at this time. Pt lying in bed with oxygen on in no distress. Care providers, pharmacy, and demographics verified/updated. Admitting Dx: COPD exac PCP:Gurpreet Specialists:Rafael, pulnay; Chan, cardio Preferred Pharmacy: [facility] Insurance: [facility], [employer] Prescription Benefit: yes LNOK: Jarret Henderson, father Living Arrangements: Pt lives with son in a two story condo with 24 steps to enter with rails on both sides. 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 Pt denies concerns at home. Transportation: Pt drives self and denies concerns with transportation. DME/HHC/SNF: Pt has oxygen through [employer], reports 2L prn with sleep. Pt does not have portable oxygen. He does have a pox. Pt denies hx of HHC or SNF stays. Pt states no concerns with going home at time of dc. Pt states no further concerns/needs. CM to follow. Advised pt to ask CM if any further question/concerns/needs arise, voices understanding. Pt Goal: Home Plan: Home, follow need for change in oxygen rx
--- NOTE | 2022-10-28 16:36 | PCM.HOSP.N ---
Hospitalist Note Mr. Henderson is a 67-year-old male who presented to the emergency department early this morning complaining of shortness of breath over the last 3 to 4 days prior to admission. He had an outpatient influenza swab for which he tested positive for influenza A. Subsequent testing here was also positive. He was started on prednisone on Monday however despite this he has had progressively worsening shortness of breath and came to the emergency department. He does have COPD at baseline but is not oxygen dependent. He is currently on steroids and Tamiflu as well as supportive aerosols. Oral intake is so-so but improved since admission. He is requiring 3 L of supplemental oxygen at 94 to 95%. We will attempt to wean this as able. He does not show any signs of respiratory distress at this time. He may be able to go home in the next 24 to 48 hours depending on progress. I did discuss with him the likelihood that he may need to go home with supplemental oxygen. I will discuss further with his tanning solution maker who is rounding tomorrow. Continue Tamiflu and steroids as well as other supportive care and continue to monitor ongoing.
[2022-10-28] MEDS: MELATONIN 3 MG TABLET PO (22:40)
[2022-10-28] MEDS: Oseltamivir Phosphate 30 MG Capsule PO (22:41)
[2022-10-28] MEDS: Atorvastatin Calcium 80 MG Tablet PO (22:41)
[2022-10-29] VITALS (13 sets, daily range): BP systolic 105–122; BP diastolic 68–78; PULSE 67–86; RESP 18–20; TEMP 36.4–36.6; O2SAT 84–98
[2022-10-29 06:38] LABS: Absolute Lymphocyte Count 0.35 X10^3/uL (0.83-4.51); Absolute Neutrophil Count 5.6 X10^3/uL (2.0-7.7); Hematocrit 39.3 % (40-54); Hemoglobin 12.9 g/dL (13.0-16.5); Lymphocyte # 0.35 X10^3/ul (0.83-4.51); Lymphocyte % 5.5 % (19-41); Mean Corp Hgb Conc 32.8 g/dL (32-36); Mean Corpuscular Hgb 30.9 pg (27.0-32.0); Mean Platelet Vol. 9.4 fl (6.2-12.0); Monocyte# 0.34 X10^3/uL; Monocyte% 5.4 % (0-10); NRBC Flagged by Analyzer 0 % (0-5); Neutrophil % 88.8 % (47-70); POSITIVE DIFFERENTIAL YES; Platelet Count 186 K/mm3 (150-450); RBC Distribution Width CV 13.5 % (11.6-14.6); Red Blood Count 4.18 M/mm3 (4.6-6.2); White Blood Count 6.3 K/mm3 (4.4-11.0)
[2022-10-29 06:41] LABS: Differential Indicated SCAN CRITERIA MET
[2022-10-29] MEDS: 0.9% Saline Lock 10 ML Syringe IV ×3 (06:49→21:34)
[2022-10-29 06:55] LABS: Differential Comment SCANNED
[2022-10-29 07:05] LABS: Anion Gap 1 (5-15); BUN 30 mg/dL (7-18); BUN/Creat Ratio 27.5 RATIO (10-20); Calcium,Total 8.9 mg/dL (8.5-10.1); Chloride 108 mmol/L (98-107); Creatinine, Serum 1.09 mg/dL (0.70-1.30); EST Glomerular Filtration Rate 71 mL/min (>60); Est Glom Filt Rate - Afr Amer 86 mL/min (>60); Estimated Creatinine Clearance 60.64 ml/min; Glucose 127 mg/dL (74-106); Potassium 4.2 mmol/L (3.5-5.1); Sodium Level 138 mmol/L (136-145)
[2022-10-29] MEDS: Ipratropium/Albuterol Sulfate 3 ML AMPUL.NEB INHALATION ×4 (07:15→19:34)
[2022-10-29] MEDS: Enoxaparin 30 MG/0.3 ML Syringe SC (11:25)
[2022-10-29] MEDS: Oseltamivir Phosphate 30 MG Capsule PO ×2 (11:26→21:35)
[2022-10-29] MEDS: Isosorbide Mononitrate 30 MG Tablet PO (11:26)
[2022-10-29] MEDS: Clopidogrel Bisulfate 75 MG Tablet PO (11:26)
[2022-10-29] MEDS: Furosemide 40 MG Tablet PO (11:26)
[2022-10-29] MEDS: Metoprolol(XL)Succ 50 MG Tablet PO ×2 (11:26→21:34)
[2022-10-29] MEDS: Pantoprazole Sodium 20 MG Tablet PO ×2 (11:26→21:35)
[2022-10-29] MEDS: guaiFENesin 1,200 MG Tablet 1200 MG PO ×2 (11:26→21:35)
[2022-10-29] MEDS: Docusate Sodium 100 MG Capsule PO ×2 (14:55→21:40)
--- NOTE | 2022-10-29 15:00 | PCM.PN.HOSP ---
Subjective Subjective Patient states he had the sensation that he was having difficulty taking a deep breath. Oxygen requirements remain the same at 2 L. He is getting aerosols and Tamiflu. I added Acapella and Mucinex. He also complained of some constipation so we ordered Colace. I discussed with him that we reevaluate him tomorrow to see if we can get him out of the hospital but he may require oxygen at discharge. He voiced understanding Objective Data Objective Data Vital Signs: Vital Signs Temp Pulse Resp BP Pulse Ox O2 Del Method O2 Flow Rate 98 F 75 18 105/69 94 Nasal Cannula 3 10/29/22 10:00 10/29/22 11:26 10/29/22 11:08 10/29/22 11:26 10/29/22 11:08 10/29/22 11:08 10/29/22 11:08 Oxygen Flow Rate (L/min) [ 2 AMBULATING with Oxygen #1] Oxygen Flow Rate (L/min) 3 Oxygen Delivery Method Nasal Cannula Weight: 77.111 kg Body Mass Index (BMI) 26.6 Intake & Output: Intake and Output for Last 24 Hours 10/27/22 10/28/22 10/29/22 23:59 23:59 23:59 Intake Total 1748.33 / 1748.33 1480 / 1480 Output Total 800 / 800 1300 / 1300 Balance 948.33 / 948.33 180 / 180 Lab / Micro Data Result Diagrams: 10/29/22 06:08 10/29/22 06:08 Labs: Laboratory Results - last 24 hr 10/29/22 06:08: WBC 6.3, RBC 4.18 L, Hgb 12.9 L, Hct 39.3 L, MCV 94.0, MCH 30.9, MCHC 32.8, RDW Std Deviation 47.0 H, RDW Coeff of Lisa 13.5, Plt Count 186, MPV 9.4, Immature Gran % (Auto) 0.300, Neut % (Auto) 88.8 H, Lymph % (Auto) 5.5 L, [place] % (Auto) 5.4, Eos % (Auto) 0.0, Baso % (Auto) 0.0, Absolute Neuts (auto) 5.6, Absolute Lymphs (auto) 0.35 L, Nucleated RBC % 0, Differential Comment SCANNED 10/29/22 06:08: Sodium 138, Potassium 4.2, Chloride 108 H, Carbon Dioxide 29.0, Anion Gap 1 L, BUN 30 H, Creatinine 1.09, Estim Creat Clear Calc 60.64, Est GFR (MDRD) Af Amer 86, Est GFR (MDRD) Non-Af 71, BUN/Creatinine Ratio 27.5 H, Glucose 127 H, Calcium 8.9 Micro: Microbiology 10/28/22 02:50 Nasal Secretion SARS-CoV-2 & FLU Antigen (Rapid) - Final Physical Exam Const alert, oriented x3, no apparent distress and well nourished Constitutional Narrative: Upper middle-aged white male sitting up in bed, nursing at bedside, patient appears comfortable nontoxic, talking on the phone to relative HEENT head/scalp atraumatic HEENT Narrative: No thrush, Mallampati 2-3 Head and Scalp: normocephalic Resp normal respiratory effort, no retractions and no use of accessory muscles Resp Narrative: Scattered end expiratory wheeze, diminished diffusely, no tachypnea or signs of respiratory distress Auscultation: wheezes; Negative for crackles or rhonchi Cardio regular rate, regular rhythm, S1 normal heart sound, S2 normal heart sound, no murmurs, no rub, no gallops and no clicks GI normal to inspection, nondistended, normoactive bowel sounds, soft to palpation and non-tender Extremity no clubbing, cyanosis or edema Extremity Narrative: 2+ pedal pulses Neuro oriented x3, moves all extremities and no focal motor deficits Speech: speech normal Psych affect normal Assessment & Plan Assessment/Plan (1) COPD exacerbation: (2) Influenza A: (3) Dyspnea: (4) Hypoxia: PLAN: Plan Acute hypoxia secondary to acute exacerbation of COPD related to influenza A infection -Continue supportive care -Continue oxygen and wean as able -We did do an O2 evaluation today at which time he was 92% at rest but with ambulation dropped to 88% and was placed on 2 L with improvement to 93% -We will repeat tomorrow to reassess -Add Mucinex and Acapella -Continue I-S -Continue scheduled and as needed aerosols -Continue Tamiflu -Continue prednisone Hypokalemia -Resolved Acute kidney injury secondary to dehydration -Serum creatinine on admission was 1.60 -Baseline 0.9-1.1 -Received IV fluids -Resolved CAD/HTN/HPL -Status post PCI and CABG -Continue aspirin/Plavix/statin/metoprolol -Restart losartan as blood pressure allows currently blood pressure is stable without Suspected MIKE -Noted per recent pulmonary note in July of this year -Pulse oximetry -Recommend continue outpatient pulmonary follow-up GERD -Continue PPI History of complicated diverticular disease -History of partial colectomy -Follows with Dr. Javier -No current issues Tobacco abuse -Strongly recommend cessation -Nicotine replacement as desired -Complicates influenza infection DVT prophylaxis -Continue Lovenox -continue SCDs CODE STATUS -Full code Charges/Coding Visit Charges Inpatient E&M: 23497 Subs Hosp L2
[2022-10-29] MEDS: Atorvastatin Calcium 80 MG Tablet PO (21:34)
[2022-10-30] VITALS (8 sets, daily range): BP systolic 119–126; BP diastolic 72; PULSE 71–81; RESP 17–19; TEMP 36.4–36.6; O2SAT 87–98
[2022-10-30] MEDS: MELATONIN 3 MG TABLET PO (01:01)
[2022-10-30] MEDS: 0.9% Saline Lock 10 ML Syringe IV (06:12)
[2022-10-30] MEDS: Ipratropium/Albuterol Sulfate 3 ML AMPUL.NEB INHALATION ×2 (07:15→11:01)
[2022-10-30 07:54] LABS: Anion Gap 6 (5-15); BUN 33 mg/dL (7-18); Calcium,Total 9.1 mg/dL (8.5-10.1); Chloride 103 mmol/L (98-107); Creatinine, Serum 1.18 mg/dL (0.70-1.30); EST Glomerular Filtration Rate 65 mL/min (>60); Est Glom Filt Rate - Afr Amer 79 mL/min (>60); Estimated Creatinine Clearance 56.02 ml/min; Glucose 108 mg/dL (74-106); Potassium 4.1 mmol/L (3.5-5.1); Sodium Level 136 mmol/L (136-145)
[2022-10-30] MEDS: Metoprolol(XL)Succ 50 MG Tablet PO (09:47)
[2022-10-30] MEDS: Oseltamivir Phosphate 30 MG Capsule PO (09:47)
[2022-10-30] MEDS: Furosemide 40 MG Tablet PO (09:48)
[2022-10-30] MEDS: Pantoprazole Sodium 20 MG Tablet PO (09:48)
[2022-10-30] MEDS: guaiFENesin 1,200 MG Tablet 1200 MG PO (09:48)
[2022-10-30] MEDS: Isosorbide Mononitrate 30 MG Tablet PO (09:48)
[2022-10-30] MEDS: Clopidogrel Bisulfate 75 MG Tablet PO (09:48)
[2022-10-30] MEDS: Enoxaparin 30 MG/0.3 ML Syringe SC (09:49)
[2022-10-30] MEDS: Docusate Sodium 100 MG Capsule PO (09:52)
--- NOTE | 2022-10-30 12:20 | PCM.DC.SUM ---
Providers Date of Admission: 10/28/22 Date of Discharge: 10/30/22 Primary Care Physician: Dr. George Vázquez MD Reason For Visit: COPD EXACERBATION Diagnosis Discharge Diagnosis (1) COPD exacerbation: Status: Chronic Code(s): J44.1 - Chronic obstructive pulmonary disease with (acute) exacerbation (2) Influenza A: Status: Acute Code(s): J10.1 - Influenza due to other identified influenza virus with other respiratory manifestations (3) Dyspnea: Status: Acute Code(s): R06.00 - Dyspnea, unspecified (4) Hypoxia: Status: Acute Code(s): R09.02 - Hypoxemia Plan Acute hypoxia secondary to acute exacerbation of COPD related to influenza A infection -Continue supportive care -Continue oxygen and wean as able -We did do an O2 evaluation today at which time he was 92% at rest but with ambulation dropped to 88% and was placed on 2 L with improvement to 93% -We will repeat tomorrow to reassess -Add Mucinex and Acapella -Continue I-S -Continue scheduled and as needed aerosols -Continue Tamiflu -Continue prednisone Hypokalemia -Resolved Acute kidney injury secondary to dehydration -Serum creatinine on admission was 1.60 -Baseline 0.9-1.1 -Received IV fluids -Resolved CAD/HTN/HPL -Status post PCI and CABG -Continue aspirin/Plavix/statin/metoprolol -Restart losartan as blood pressure allows currently blood pressure is stable without Suspected MIKE -Noted per recent pulmonary note in July of this year -Pulse oximetry -Recommend continue outpatient pulmonary follow-up GERD -Continue PPI History of complicated diverticular disease -History of partial colectomy -Follows with Dr. Javier -No current issues Tobacco abuse -Strongly recommend cessation -Nicotine replacement as desired -Complicates influenza infection DVT prophylaxis -Continue Lovenox -continue SCDs CODE STATUS -Full code Medications at Discharge Home Medications omeprazole 20 mg capsule,delayed release 20 mg PO BID reflux 05/11/21 albuterol sulfate 90 mcg/actuation aerosol inhaler 2 puff inhalation Q6H PRN sob #8.5 grams 08/05/21 clopidogrel 75 mg tablet (Plavix) 75 mg PO DAILY anti platelet #90 tabs 10/04/21 furosemide 40 mg tablet See Rx Instructions .Route .COMPLEX #90 tabs 10/25/21 losartan 50 mg tablet 50 mg PO QDAY 11/15/21 metoprolol succinate 50 mg tablet,extended release 24 hr 50 mg PO BID 02/01/22 budesonide-formoterol HFA 160 mcg-4.5 mcg/actuation aerosol inhaler (Symbicort) 2 puff inhalation BID #1 ea 03/07/22 isosorbide mononitrate 30 mg tablet,extended release 24 hr 30 mg PO DAILY #30 tabs 05/31/22 ipratropium 0.5 mg-albuterol 3 mg (2.5 mg base)/3 mL nebulization soln 3 ml continuous nebulization Q6H PRN shortness of breath or wheezing #180 mL 06/14/22 rosuvastatin 40 mg tablet 40 mg PO DAILY #90 tabs 07/29/22 albuterol sulfate 90 mcg/actuation aerosol inhaler 2 puff inhalation Q6H PRN PRN Shortness Of Breath 10/28/22 prednisone 10 mg tablet 10 mg PO QDAY #30 tabs 10/28/22 guaifenesin 1,200 mg tablet, extended release 12 hr (Mucus Relief ER) 1,200 mg PO BID #0 tabs 10/30/22 oseltamivir 75 mg capsule (Tamiflu) 75 mg PO BID 3 days #6 caps 10/30/22 prednisone 10 mg tablet 10 mg PO DAILY #36 tabs 10/30/22 Hospital Course Operations None Procedures None Summary of Care Provided Minutes Spent on Discharge: 33 Hospital Course: Mr. Henderson is a 67-year-old white male who presented to the emergency department at [facility] early on the morning of 10/29/2022 complaining of shortness of breath over the last 3 to 4 days prior to admission. He had an outpatient influenza swab for which he tested positive for influenza A. Subsequent testing here was also positive for influenza A. As an outpatient he was started on prednisone but unfortunately despite this he had progressively worsening shortness of breath and came to the emergency department. He does have a history of COPD and is oxygen dependent only at night as needed. He was placed on steroids and Tamiflu as well as supportive aerosols. He initially had poor intake however this improved during his hospital course. At maximum he required 4 L of supplemental oxygen to maintain sats greater than 88%. With continued treatment and time including addition of incentive spirometry, Acapella, and Mucinex we were able to wean him to room air at which time his oxygen saturation was 88 to 89%. With ambulation he desatted below 88% and required 2 L to maintain oxygen saturations above 88%. He has oxygen at home already an updated prescription was faxed to his DME supplier. I advised him on the poor importance of wearing his oxygen at home. He has a pulse oximetry and will monitor his oxygen saturations intermittently. I did discuss with him if his oxygen saturations drop below 88% on his supplemental oxygen on a consistent basis that he needed to be reevaluated either in the emergency department or by his primary care physician. He was instructed to avoid public environments for at least the next 3 to 5 days. He indicated he would take comments incentive parameter and Acapella and continue to work on these aggressively. 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 He was discharged home in stable condition. All scripts were faxed to his local pharmacy. We did strongly recommend tobacco cessation and did advise him not to smoke while he was on supplemental oxygen. Blood pressures were normal however he was not placed on his losartan during his hospital course. We advised him to hold his losartan for the next week and not restart it during that time unless his blood pressure systolic was greater than 140. Discharge diagnoses: Acute hypoxia secondary to acute exacerbation of COPD related to influenza A infection Hypokalemia-resolved LILLIE-resolved CAD Hypertension Hyperlipidemia Suspected MIKE GERD History of complicated diverticular disease Tobacco abuse Weight / BMI Weight Weight: 78.746 kg Body Mass Index (BMI) 26.6 ABG / Lab / Microbiology Data Result Diagrams: 10/29/22 06:08 10/30/22 07:05 Laboratory: Laboratory Results - last 24 hr 10/30/22 07:05: Sodium 136, Potassium 4.1, Chloride 103, Carbon Dioxide 27.0, Anion Gap 6, BUN 33 H, Creatinine 1.18, Estim Creat Clear Calc 56.02, Est GFR (MDRD) Af Amer 79, Est GFR (MDRD) Non-Af 65, BUN/Creatinine Ratio 28.0 H, Glucose 108 H, Calcium 9.1 Microbiology: Microbiology 10/28/22 02:50 Nasal Secretion SARS-CoV-2 & FLU Antigen (Rapid) - Final D/C Instructions Discharge Diet: Low fat / Low cholesterol Discharge Activity: Return to Normal Activity Return to work on: 11/02/22 Meaningful Use Info Meaningful Use Diagnoses (Choose all that apply): None applicable Discharge Plan Admission Admit Date/Time: 10/28/22 03:39 Primary Reason for Your Visit: Shortness of breath Attending Provider: Ling Betancur Primary Care Provider: George Vázquez Consulting Providers: Judy Henriquez Instructions Additional Instructions / Restrictions: 1. Please utilize 2 L of oxygen at all times with exertion 2. You did not qualify for oxygen at rest however your oxygen saturations were borderline and okay to use 2 L at rest if need be 3. Please call your primary care physician or represent to the emergency department if you notice your oxygen saturations start dropping consistently below 88% while on your supplemental oxygen Discharge Orders/Prescriptions Prescriptions: New Mucus Relief ER 1,200 mg Tablet Extended Release 12hr 1,200 mg PO BID Qty: 0 0RF oseltamivir [Tamiflu] 75 mg capsule 75 mg PO BID 3 Days Qty: 6 0RF prednisone 10 mg tablet 10 mg PO DAILY Qty: 36 0RF Rx Instructions: 4 tablets x 4 days, 3 tablets x 4 days, 2 tablets x 4 days, and then go back to her home dosing of 10 mg daily Continued clopidogrel [Plavix] 75 mg tablet 75 mg PO DAILY Qty: 90 4RF albuterol sulfate 90 mcg/actuation HFA aerosol inhaler 2 puff INHALATION Q6H PRN (Reason: sob) Qty: 8.5 3RF omeprazole 20 mg capsule,delayed release(DR/EC) 20 mg PO BID metoprolol succinate 50 mg tablet extended release 24 hr 50 mg PO BID albuterol sulfate 90 mcg/actuation HFA aerosol inhaler 2 puff INHALATION Q6H PRN PRN (Reason: Shortness Of Breath) Label Comments: INHALE 2 PUFFS INSTRUCTED EVERY 6 HOURS NEEDED FOR WHEEZING/SHORTNESS OF BREATH. furosemide 40 mg tablet See Rx Instructions .ROUTE .COMPLEX Qty: 90 4RF Dose Instruction: TAKE 1 TABLET BY MOUTH EVERY DAY Rx Instructions: TAKE 1 TABLET BY MOUTH EVERY DAY budesonide-formoterol [Symbicort] 160-4.5 mcg/actuation HFA aerosol inhaler 2 puff inhalation BID Qty: 1 3RF Rx Instructions: administer with spacer, rinse mouth after each use isosorbide mononitrate 30 mg tablet extended release 24 hr 30 mg PO DAILY Qty: 30 11RF ipratropium-albuterol 0.5 mg-3 mg(2.5 mg base)/3 mL solution for nebulization 3 ml continuous nebulization Q6H PRN (Reason: shortness of breath or wheezing) Qty: 180 11RF rosuvastatin 40 mg tablet 40 mg PO DAILY Qty: 90 3RF Held losartan 50 mg tablet 50 mg PO QDAY Hold Instructions: Restart in 1 week or earlier if you check your blood pressure and your systolic blood pressure (top number) is greater than 140 prednisone 10 mg tablet 10 mg PO QDAY Qty: 30 0RF Hold Instructions: Until prednisone taper is completed Rx Instructions: take 4 tabs for three days, then 3 tabs for three days, then 2 tabs for three days, then 1 tab for 3 days Referrals / Follow Up: Farooq Hall MD [Med Staff - Active Staff] - See Referral Note (Call and make an appointment to be seen within the next 4 to 6 weeks) George Vázquez MD [Primary Care Provider] - Within 1 Week Disposition Disposition (needs filled in before D/C Order can be placed): Home, Self Care Charges/Coding Visit Charges Inpatient E&M: 44830 Disch Hosp >30min
== END 2022-10-30 13:18 | disposition home or self-care (01) | DRG 191 ==
LOC: ED 03:43 → MS3 03:55
PROVIDERS: Admitting Provider Family Medicine; Emergency Provider Emergency Medicine; PCP Internal Medicine; Visit Provider Internal Medicine
DX: J44.1 Chronic obstructive pulmonary disease with (acute) exacerbation (principal); N17.9 Acute kidney failure, unspecified; J10.1 Influenza due to other identified influenza virus with other respiratory manifestations; E78.00 Pure hypercholesterolemia, unspecified; G47.33 Obstructive sleep apnea (adult) (pediatric); I10 Essential (primary) hypertension; E87.6 Hypokalemia; I25.10 Atherosclerotic heart disease of native coronary artery without angina pectoris; K21.9 Gastro-esophageal reflux disease without esophagitis; F17.210 Nicotine dependence, cigarettes, uncomplicated; E86.0 Dehydration; K59.00 Constipation, unspecified; R09.02 Hypoxemia; Z90.49 Acquired absence of other specified parts of digestive tract; Z95.1 Presence of aortocoronary bypass graft; Z95.5 Presence of coronary angioplasty implant and graft; Z79.02 Long term (current) use of antithrombotics/antiplatelets; Z79.899 Other long term (current) drug therapy; Z87.19 Personal history of other diseases of the digestive system
CPT/HCPCS: 36415; 71045; 80048; 80053; 83735; 83880; 84484; 85025; 87428; 87633; 93005; 94640; 94667; 94668; 99251; 99285; 99406; C9803; J7030; A4216; G0463

== ENCOUNTER → 2022-11-03 | Outpatient (CLI) | payer MEDICARE, OTHER, SELFPAY ==
[2022-02-14 13:29] VITALS: BMI 28.4
--- NOTE | 2022-11-03 15:53 | CT_ITS ---
EXAM: CT ANGIOGRAPHY ABDOMEN WITHOUT AND WITH INTRAVENOUS CONTRAST CLINICAL INDICATION: abd pain, COPD TECHNIQUE: Helically acquired angiography images of the abdomen without and with intravenous contrast. This CT exam was performed using one or more of the following dose reduction techniques: automated exposure control, adjustment of the mA and/or kV according to patient size, and/or use of iterative reconstruction technique. This report was created using [employer] report generation technology. MIP reconstructed images were created and reviewed. CONTRAST: IV 100mL Isovue-370 COMPARISON: 05/17/2021 FINDINGS: AORTA: No acute findings. Normal caliber abdominal aorta. No dissection. CELIAC TRUNK AND MESENTERIC ARTERIES: No acute findings. No occlusion or significant stenosis. No dissection. RENAL ARTERIES: No acute findings. No occlusion or significant stenosis. No dissection. LOWER THORAX: Unremarkable. Lung bases are clear. No cardiomegaly. No significant pericardial effusion. LIVER: Unremarkable. Homogeneous. No focal mass. GALLBLADDER AND BILE DUCTS: Solitary gallstone present. There is no inflammation identified. No gallbladder distention or wall edema. No intra- or extrahepatic biliary ductal dilation. PANCREAS: Unremarkable. No focal cystic or solid mass. SPLEEN: Unremarkable. Normal size without focal cystic or solid mass. ADRENALS: Unremarkable. No nodules. KIDNEYS AND URETERS: Unremarkable. Normal renal size and position. No hydronephrosis. STOMACH AND BOWEL: Unremarkable. No stomach or bowel distention. No focal inflammatory change. INTRAPERITONEAL SPACE: Unremarkable. No ascites or other fluid collection. No free air. BONES/JOINTS: There are pleural calcifications at the right lung base. There is an old nonhealed right rib fracture. No suspicious lytic or blastic abnormality. SOFT TISSUES: Unremarkable. No discrete abdominal or pelvic wall hernia. LYMPH NODES: No enlarged lymph nodes. CT/CTA Abdomen W/WO Contrast IMPRESSION: 1. Normal caliber aorta. There is no evidence of aneurysm, stenosis or dissection. All vessels are patent. 2. Cholelithiasis with no evidence of cholecystitis. Electronically Signed: Hever Swanson MD at 19:40 EST ,
== END | disposition home or self-care (01) ==
LOC: CT 15:51
PROVIDERS: PCP Internal Medicine; Referring Provider Nurse Practitioner Adult Health; Visit Provider Nurse Practitioner Adult Health
DX: K80.20 Calculus of gallbladder without cholecystitis without obstruction (principal); J44.9 Chronic obstructive pulmonary disease, unspecified
CPT/HCPCS: 74175; Q9967

== ENCOUNTER → 2022-11-09 | Outpatient (CLI) | payer MEDICARE, OTHER, SELFPAY ==
[2022-02-14 13:29] VITALS: BMI 28.4
--- NOTE | 2022-11-09 15:01 | CT_ITS ---
STUDY: CT ABDOMEN AND PELVIS WITH CONTRAST REASON FOR EXAM: Male, 67 years old. Abd pain, constipation, hx partial colectomy RADIATION DOSAGE (If Supplied By Facility): CTDIvol = ( 14.61 ) mGy, DLP = ( 925.33 ) mGycm TECHNIQUE: Transaxial images were obtained from the dome of the diaphragm to the symphysis pubis with oral contrast. Oral and amp; IV Readi-CAT and amp; 100mL Isovue-300 was administered. Sagittal and coronal images were reconstructed. Individualized dose optimization techniques were used for this CT. COMPARISON: Comparison is made with prior study dated 05/17/2021. FINDINGS: Calcified pleural plaques at the right lung base. Prior CABG. Coronary artery calcification. Normal liver. Single gallstone in a contracted gallbladder lumen. Normal spleen. Normal pancreas. Normal bilateral adrenal glands. Normal right kidney. Normal left kidney. The stomach is mildly distended with evidence of a fluid and residual food particles. Normal small intestine. Surgical anastomosis seen in the rectosigmoid colon. The appendix is visualized and appears normal. There is diffuse atherosclerotic calcification of the abdominal aorta, without a demonstrated aneurysm. Normal inferior vena cava. Normal retroperitoneum. Normal urinary bladder. There are prostatic calcifications. Normal abdominal wall. Normal osseous structures. CT/Abdomen/Pelvis WITH Contrast IMPRESSION: Gallstone in a contracted gallbladder. Prostatic calcification. Surgical anastomosis at the level of the rectosigmoid colon. Electronically Signed: Byron Chacon MD at 15:37 EST ,
== END | disposition home or self-care (01) ==
LOC: CT 15:01
PROVIDERS: PCP Internal Medicine; Referring Provider Nurse Practitioner Adult Health; Visit Provider Nurse Practitioner Adult Health
DX: Z90.49 Acquired absence of other specified parts of digestive tract (principal); I70.0 Atherosclerosis of aorta; I25.10 Atherosclerotic heart disease of native coronary artery without angina pectoris; K80.20 Calculus of gallbladder without cholecystitis without obstruction; J92.9 Pleural plaque without asbestos; R14.0 Abdominal distension (gaseous); K59.00 Constipation, unspecified; N42.0 Calculus of prostate
CPT/HCPCS: 74177; Q9967

== ENCOUNTER 2022-12-02 10:01 | Day surgery (SDC) | payer MEDICARE, OTHER, SELFPAY ==
[2022-02-14 13:29] VITALS: BMI 28.4
--- NOTE | 2022-11-30 13:55 | EKG12_ITS ---
Test Reason : PRE OP Blood Pressure : / mmHG Vent. Rate : 089 BPM Atrial Rate : 089 BPM P-R Int : 122 ms QRS Dur : 132 ms QT Int : 366 ms P-R-T Axes : 076 -70 088 degrees QTc Int : 445 ms Sinus rhythm with sinus arrhythmia with occasional Premature ventricular complexes Right bundle branch block Left anterior fascicular block Bifascicular block Left ventricular hypertrophy with repolarization abnormality Abnormal ECG Confirmed by BHUPINDER LOPEZ, KARON ([id number]), image editor REBEL PRICE ([id number]) on 12/01/2022 10:02:56 AM Referred By: Becky Corbin Confirmed By:KARON ROE MD
[2022-12-02] VITALS (10 sets, daily range): BP systolic 110–142; BP diastolic 74–89; PULSE 65–88; RESP 16–18; TEMP 36.5–37; O2SAT 91–100; BMI 27.2
[2022-12-02] MEDS: Lactated Ringers 1,000 ML 15 ML IV ×2 (10:30→13:30)
--- NOTE | 2022-12-02 10:30 | PCM.HP.BLA ---
History and Physical Date of Admission: 12/02/22 Date of Service:? 11/15/22 MR#: [id number] Acct: [id number] Name:RAISA GALINDO Rep #: [id number] : 1955 ? ? Provider: Dr. Becky Corbin MD Age/Sex:? 67/M ? ? Location: [facility] Status: Signed Intake Vital Signs ? 10/28/2212:00 11/15/2307:59 Height 5 ft 7 in 5 ft 7 in Weight: ? 170 lb BMI ? 26.6 BP ? 126/89 H Blood Pressure Location ? Rt brachial Position ? Sitting Respiration ? 18 Pulse ? 84 Pulse Source ? Monitor Temp ? 97.8 F Temp Source ? Temporal Pulse Oximetry (%) ? 94 Oxygen Delivery Method ? room air Intake Visit Reasons:?GALLBLADDER Chief Complaint: Gallstone Survey Technologist Required: No Is patient in pain?: No Allergies levofloxacin [From Levaquin] Adverse Reaction (Severe, Verified 11/15/22 09:00) tendonitis Medications omeprazole 20 mg capsule,delayed release 20 mg PO BID reflux 05/11/21 [History Confirmed 11/15/22] albuterol sulfate 90 mcg/actuation aerosol inhaler 2 puff inhalation Q6H PRN sob #8.5 grams 08/05/21 [Rx Confirmed 11/15/22] clopidogrel 75 mg tablet (Plavix) 75 mg PO DAILY anti platelet #90 tabs 10/04/21 [Rx Confirmed 11/15/22] furosemide 40 mg tablet See Rx Instructions .Route .COMPLEX #90 tabs 10/25/21 [Rx Confirmed 11/15/22] losartan 50 mg tablet 50 mg PO QDAY 11/15/21 [History Confirmed 11/15/22] metoprolol succinate 50 mg tablet,extended release 24 hr 50 mg PO BID 02/01/22 [History Confirmed 11/15/22] budesonide-formoterol HFA 160 mcg-4.5 mcg/actuation aerosol inhaler (Symbicort) 2 puff inhalation BID #1 ea 03/07/22 [Rx Confirmed 11/15/22] isosorbide mononitrate 30 mg tablet,extended release 24 hr 30 mg PO DAILY #30 tabs 05/31/22 [Rx Confirmed 11/15/22] ipratropium 0.5 mg-albuterol 3 mg (2.5 mg base)/3 mL nebulization soln 3 ml continuous nebulization Q6H PRN shortness of breath or wheezing #180 mL 06/14/22 [Rx Confirmed 11/15/22] rosuvastatin 40 mg tablet 40 mg PO DAILY #90 tabs 07/29/22 [Rx Confirmed 11/15/22] albuterol sulfate 90 mcg/actuation aerosol inhaler 2 puff inhalation Q6H PRN PRN Shortness Of Breath 10/28/22 [History Confirmed 11/15/22] prednisone 10 mg tablet 10 mg PO QDAY #30 tabs 10/28/22 [Rx Confirmed 11/15/22] guaifenesin 1,200 mg tablet, extended release 12 hr (Mucus Relief ER) 1,200 mg PO BID #0 tabs 10/30/22 [Rx Confirmed 11/15/22] oseltamivir 75 mg capsule (Tamiflu) 75 mg PO BID 3 days #6 caps 10/30/22 [Rx Confirmed 11/15/22] prednisone 10 mg tablet 10 mg PO DAILY #36 tabs 10/30/22 [Rx Confirmed 11/15/22] PFSH Medical History?(Updated 11/15/22 @ 08:59 by Vernell Gunderson) Achilles tendinitis of both lower extremities Arthritis Atherosclerosis of coronary artery bypass graft without angina pectoris Atherosclerosis of coronary artery of [place] heart without angina pectoris Chronic bronchitis COPD (chronic obstructive pulmonary disease) DDD (degenerative disc disease), lumbar Easy bruising Excessive bleeding Gallstone Gastric reflux History of diverticulitis History of ulceration Hyperlipidemia Hypertension Marijuana use Nicotine dependence Nodule of lower lobe of left lung Osteoarthritis Perforated diverticulum of large intestine Presence of stent in coronary artery (~11/12/21) Surgical History? H/O coronary artery bypass surgery (10/14/96) History of appendectomy History of cardiac catheterization History of colectomy History of left knee replacement History of partial colectomy History of tonsillectomy Hx of left cataract extraction Hx of right cataract extraction Presence of coronary angioplasty implant and graft (~09/29/21) S/p bilateral carpal tunnel release Status post double vessel coronary artery bypass Family History? Father CAD (coronary artery disease)Brother HypertensionGrandfather Pancreatic cancerGrandmother Heart disease Social History? Smoking Status:? Current every day smoker tobacco type: cigarettes alcohol intake:? current alcohol intake frequency: 0-2 drinks per day substance use type:? does not use caffeine:? Yes Type: coffee Number of servings: 2 what type of physical activity do you participate in:? none seatbelt use:? always do you feel safe at home:? Yes HPI HPI HPI: 67-year-old male presents due to gallstones and abdominal pain after eating.? Patient states about an hour after eating he has right upper quadrant/epigastric discomfort denies any nausea and vomiting.? Patient states about year and a half ago he had an upper and lower scope and is planning to have another upper and lower scope in December with Dr. Javier.? Patient does have a significant cardiac history with stent placements 2 in September 2021 and 1 in October 2021 at [facility] for the October 30 patient is on aspirin and Plavix.? Patient also has several stents from prior to the more recent ones?patient does follow with Dr. Giles..? Patient states he gets increased pain about plan after eating a burger however if he has cereal he had no issues and occasionally with eggs and almendarez he has no issues as well.? Patient denies any reflux or heartburn except after eating pizza.? Patient states he does have bowel movements daily.? Patient has CT abdomen pelvis showed a contracted gallbladder and one gallstone.? Patient does have past medical history for sigmoidectomy due to diverticulitis in [address] Olson. ROS General General: No weight change, appetite, fatigue, colon cancer, breast cancer or weakness HEENT HEENT: No difficulty swallowing, eye injury, eye surgery, swollen glands or hoarseness Endo Endocrine: No thyroid disease, diabetes mellitus, thyroid cancer, Hair loss, heat intolerance or cold intolerance Skin Skin: No rash or changing moles Breast Breast: No left breast lump, right breast lump, nipple discharge, breast pain, abnormal mammogram, abnormal US or breast enlargement Musc Musculoskeletal: Yes arthritis; No back problems, rheumatoid arthritis, gout or joint pain Cardio Cardiovascular: Yes heart disease, high blood pressure and heart stent; No murmur, pacemaker, atrial fibrillation, heart attack, palpitations, shortness of breat with exertion or chest pain Psych Psychiatric: No depression, anxiety or hearing voices Resp Respiratory: Yes shortness of breath, No sleep apnea, Yes cough, Yes COPD, No asthma, Yes emphysema and No wheezing Gastro Gastrointestinal: No abdominal pain, No nausea or vomiting, No diarrhea, No constipation, No blood in stool, No acid reflux, No hemorrhoids, No ulcers, No gallbladder problem and No black,tarry stools Additional Details: Bloating/Uncomfortable feeling after eating [place] Hematologic: Yes blood thinners, No blood disorders, No bleeding, No anemia and No blood clots Neuro Neurologic: No system reviewed and no additional complaints, except as documented, No as per HPI, No abnormal gait, No abnormal hearing, No abnormal movements, No abnormal speech, No behavioral changes, No burning sensations, No confusion, No convulsions, No disequilibrium, No dizziness, No localized weakness, No frequent falls, No headache(s), No lack of coordination, No loss of vision, No memory loss, No numbness, No other visual disturbances, No radicular pain, No restless legs, No sensory deficit, No syncope, No tingling, No tremor(s), No weakness and No other Exam Const General: cooperative, healthy appearing and no acute distress Nutritional Appearance: well nourished [facility] Head: normal to inspection Resp Effort & Inspection: normal respiratory effort Auscultation: clear to auscultation bilaterally Cardio Rate: regular rate Rhythm: regular rhythm GI Inspection: non-distended and incision (Well-healed previous inferior midline incision) Palpation: soft, no guarding and nontender Skin General: no rashes or lesions noted Neuro General: patient alert, patient awake and patient oriented x3 Extrem General: no clubbing, cyanosis or edema Psych Affect: normal affect Assessment and Plan Assessment and Plan (1) Gallstone: ?Status:?Acute (2) Presence of stent in coronary artery: ?Status:?Acute ?Comment: Distal RCA: PTCA with a 3.5 mm balloon Right PDA proximal portion: PCI with a 2.75 x 15 mm Xience Skypoint JOEY (postdilated with a 3.0 NC); LCx distal into OM 2: PTCA with a 2.75 mm NC balloon0 per cardiac cath @ [facility]11/12/21; JOEY to RCA as described with residual narrowing per cath 09/29/21; PCI-JOEY-CX w/ 2.75 x 18 Promus 06/19/2008 PCI-Stent to RCA w/ BX Velocity in 2000, 2004 PCI-JOEY-Cx w/? 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 Ulrich of [facility]; Plan Did review patient's CT abdomen pelvis personally and with the patient.? Patient also does noted to have a bit of calcification at his SMA takeoff.? However patient denies any fear of food as it is only certain foods that would make him have abdominal discomfort.? Discussed with Dr. Giles's office if patient would be able to come off his Plavix for the procedure but stay on his aspirin depending on risk/benefits. Reviewed the anatomy with the patient and discussed the procedure: laparoscopic cholecystectomy with possible cholangiograms, possible open. Review risks including but not limited to bleeding?which would be higher in him due to the aspirin, infection, hernia, bile leak, retained gallstones requiring another procedure ERCP- Endoscopic Retrograde Cholangiopancreatography, injury to another organ (bile ducts, common bile duct, small bowel, etc.) and conversion to an open procedure. All questions were answered. Becky Corbin M.D. Pager: [phone] [facility] [address] [place] [address], [facility], [address] [place] [address] Office: [phone] Coding Level of Care Code Off vis,new,level 4 Diagnoses Gallstone? K80.20 Presence of stent in coronary artery? Z95.5 11/16/22 1059 <Electronically signed by Becky Corbin MD> Date Becky Corbin MD
--- NOTE | 2022-12-02 11:30 | GALL_PTH ---
PATIENT: RAISA SMILEY [place] [facility] [id number] AGE/SX: 67/M ROOM: RE12/02/[address]: Dr. Becky Corbin MD : 1955 BED: DIS: 12/02/2022 SPEC #: [id number] RECD: 12/02/22 16:43 STATUS: ASHUTOSH RELm #: [id number] RAEANN: 12/02/22 11:[address]: Becky Corbin DEPT: SURGICAL PATHOLOGY RECD BY: Myriam Brasher ENTERED: 12/05/22 11:59 SP TYPE: MATTHIAS GALAVIZ DR: Dr. George Vázquez MD Tissues: Gallbladder, NOS Procedures: Surgery Specimen Level III HEADER OPERATION: Laparoscopic cholecystectomy with IOC PRE-OP DIAGNOSIS: Gallstone TISSUE SUBMITTED: Gallbladder MICROSCOPIC DIAGNOSIS Gallbladder, cholecystectomy: Chronic cholecystitis and cholelithiasis. Benign pericystic lymph node. AM:jamie 12/06/2022 MICROSCOPIC DESCRIPTION Slides are reviewed. GROSS DESCRIPTION Received is one container labeled with the patient's name and designated gallbladder. The specimen consists of a gallbladder measuring 7 x 2.8 x 1 cm. The external surface is smooth and glistening. Focally, it is granular, hemorrhagic and contains cautery artifact. The lumen of the gallbladder contains yellow-green mucoid bile and one black calculus measuring 0.8 cm in diameter. The mucosa is bile-stained and without any mass lesions. The gallbladder wall averages 0.1 cm in thickness and is free of mass lesions. Inspector Multifocal Lens sections of the gallbladder and the cystic duct at margin of resection are submitted in one cassette. / AM:jamie 12/05/2022 TC:3 CPT: 20973
--- NOTE | 2022-12-02 12:15 | RAD_ITS ---
STUDY: INTRAOPERATIVE CHOLANGIOGRAM. REASON FOR EXAM: Male, 67 years old. Laparoscopic cholecystectomy. FLUOROSCOPY TIME (if supplied): ( 4.2 seconds ) minutes/seconds. A single loop of 18 images was submitted. TECHNIQUE: An intraoperative Cholangiogram was performed by the surgeon. Imaging was provided. COMPARISON: None. FINDINGS: The intra and extrahepatic biliary ducts are unremarkable. No residual luminal filling defects are seen. There is free flow of contrast into the duodenum. RAD/Cholangiogram/ O R,Initial IMPRESSION: Unremarkable intraoperative cholangiogram. Electronically Signed: Byron Chacon MD at 14:44 EST ,
[2022-12-02] MEDS: Cefazolin 2 GM in 0.9% Normal Saline 100 ML IV (12:20)
--- NOTE | 2022-12-02 13:43 | PCM.OPRPT ---
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 Laparoscopic cholecystectomy was elected. Description procedure: The patient was placed on operating table in supine position. A timeout was completed verifying correct patient, procedure, site, position and special equipment prior to beginning procedure. General Anesthesia was induced. The abdomen was prepped and draped in usual sterile fashion. An incision was made in the natural skin line above the umbilicus. The fascia was elevated and incised. The peritoneum was elevated and incised. Entry into the peritoneum was confirmed visually and no bowel was noted in the vicinity of the incision. Desouza trocar was placed. The abdomen was insufflated with carbon dioxide to a pressure of 12-15 mmHg. Patient tolerated insufflation well. The laparoscope was then inserted and abdomen inspected. No injuries from initial trocar placement were noted. Additional trochars were then inserted in the following locations 5 mm trocar in the epigastrium and 2 more 5 mm trochars along the right costal margin. The abdomen was inspected no abnormalities were found. The table is placed in reverse Trendelenburg position with the right side up. The adhesions between the gallbladder and omentum/transverse colon were lysed sharply. The dome of the gallbladder was grasped with atraumatic grasper passed through the lateral port and retracted over the dome of the liver. Infundibulum was then grasped with atraumatic grasper through the midclavicular port and retracted to the right lower quadrant. This maneuver exposed Calot's triangle. The peritoneum overlying the gallbladder infundibulum was then incised and cystic duct and artery identified and circumferentially dissected. Herbert catheter was used for cholangiograms. The cholangiogram showed good filling of the common bile duct into the duodenum with no filling defects, good filling of the right and left bile ducts as well. The cystic duct and artery were then doubly clipped and divided close to the gallbladder. The gallbladder then dissected from its peritoneal attachments by electrocautery. Hemostasis was checked and the gallbladder and contained stone was removed using the endoscopic retrieval bag through the umbilical port. The gallbladder is passed off table as specimen. Liver appeared to be quite friable did use the [place] for hemostasis. The gallbladder fossa was irrigated with saline and hemostasis obtained. There is no evidence of bleeding from the gallbladder fossa or cystic artery leakage of bile from the cystic duct stump. Secondary trochars removed under direct vision. No bleeding was noted the trocar sites. The laparoscope was withdrawn and umbilical trocar removed. The abdomen was allowed to collapse. The fascia of the 12 mm trocar was closed with a [id number] 0 Vicryl suture. The skin was closed with sutures of 4-0 Monocryl and Steri-Strips. The patient was extubated. The patient tolerated procedure well and was taken to the postanesthesia care unit in stable condition. Complications None
--- NOTE | 2022-12-02 13:45 | DCINST_ITS ---
Discharge Instructions Diet Discharge Diet: Light diet - advance as tolerated Activity Discharge Activity: May Not Drive (while taking narcotic pain medications.) May shower in (days): 1 Lifting Restrictions: no lifting >20 lbs x 2 wks, no strenuous exercise for 4 wks Dressing / Incision Call your doctor if your incision/area has: Continuous Slow Oozing, Sudden Increased Bleeding, Increased Pain/ Swelling, Increased Redness, Foul Smelling Discharge and Swelling at the incision site Call your doctor if you observe: Fever of 101 or Higher Remove Dressing in: 2 days Cleanse incision/area with: Soap & Water Additional Dressing/Incision Instructions:: Steri-Strips will fall off in 7 to 10 days, if they do not fall off okay to remove after 10 days. Follow Up Care Please Follow Up With: Becky Corbin MD When: Call the office for a follow-up appointment 2 weeks; after 5 PM and on the weekends call [phone] with any concerns. Test Results: Test results from this visit will be discussed in further detail at your follow- up appointment, if applicable. Discharge Plan Admission Attending Provider: Becky Corbin Primary Care Provider: George Vázquez Discharge Orders/Prescriptions Prescriptions: New oxycodone-acetaminophen 5-325 mg tablet 1 - 2 tab PO Q6H PRN (Reason: pain) 3 Days Qty: 14 0RF Continued metoprolol succinate 50 mg tablet extended release 24 hr 50 mg PO BID losartan 50 mg tablet 50 mg PO QDAY Hold Instructions: Restart in 1 week or earlier if you check your blood pressure and your systolic blood pressure (top number) is greater than 140 albuterol sulfate 90 mcg/actuation HFA aerosol inhaler 2 puff INHALATION Q6H PRN PRN (Reason: Shortness Of Breath) Label Comments: INHALE 2 PUFFS INSTRUCTED EVERY 6 HOURS NEEDED FOR WHEEZING/SHORTNESS OF BREATH. prednisone 10 mg tablet 10 mg PO DAILY Qty: 36 0RF Rx Instructions: 4 tablets x 4 days, 3 tablets x 4 days, 2 tablets x 4 days, and then go back to her home dosing of 10 mg daily aspirin 81 mg Tablet,Delayed Release (Dr/Ec) 81 mg PO DAILY furosemide 40 mg tablet 40 mg PO DAILY rosuvastatin 40 mg tablet 40 mg PO QHS budesonide-formoterol [Symbicort] 160-4.5 mcg/actuation HFA aerosol inhaler 2 puff inhalation BID Qty: 1 3RF Rx Instructions: administer with spacer, rinse mouth after each use isosorbide mononitrate 30 mg tablet extended release 24 hr 30 mg PO DAILY Qty: 30 11RF ipratropium-albuterol 0.5 mg-3 mg(2.5 mg base)/3 mL solution for nebulization 3 ml continuous nebulization Q6H PRN (Reason: shortness of breath or wheezing) Qty: 180 11RF Held clopidogrel [Plavix] 75 mg tablet 75 mg PO DAILY Qty: 90 4RF Hold Instructions: Resume on 12/04/22. Referrals / Follow Up: George Vázquez MD [Primary Care Provider] - Disposition Disposition (needs filled in before D/C Order can be placed): Home, Self Care
--- NOTE | 2022-12-02 14:05 | EKG12_ITS ---
Test Reason : POSTOP Blood Pressure : / mmHG Vent. Rate : 081 BPM Atrial Rate : 081 BPM P-R Int : 136 ms QRS Dur : 140 ms QT Int : 434 ms P-R-T Axes : 067 -64 046 degrees QTc Int : 504 ms Normal sinus rhythm Left axis deviation Right bundle branch block Left ventricular hypertrophy Abnormal ECG Confirmed by BHUPINDER LOPEZ, KARON ([id number]), features editor REBEL PRICE ([id number]) on 12/06/2022 9:04:11 AM Referred By: Becky Corbin Confirmed By:KARON ROE MD
[2022-12-02 14:49] LABS: Troponin-I HS 9 pg/mL (3.0-78.0)
[2022-12-02] MEDS: oxyCODONE 5 MG Tablet PO (15:56)
[2022-12-02] MEDS: Acetaminophen 325 MG Tablet PO (15:56)
[2022-12-02 16:42] LABS: Troponin-I HS 10 pg/mL (3.0-78.0)
== END 2022-12-02 17:14 | disposition home or self-care (01) ==
LOC: SDC 10:01 → AC 10:01
PROVIDERS: Anesthesiology; PCP Internal Medicine; Referring Provider Surgery; Visit Provider Surgery
PROC: (CPT 47610; principal; 2022-12-02 11:10)
DX: K80.20 Calculus of gallbladder without cholecystitis without obstruction (principal); J44.9 Chronic obstructive pulmonary disease, unspecified; Z95.5 Presence of coronary angioplasty implant and graft; I25.10 Atherosclerotic heart disease of native coronary artery without angina pectoris; E78.5 Hyperlipidemia, unspecified; I10 Essential (primary) hypertension; F17.210 Nicotine dependence, cigarettes, uncomplicated; Z95.1 Presence of aortocoronary bypass graft
CPT/HCPCS: 47563; 00790; 74300; 76000; 84484; 88304; 93005; J7120; J2405

== ENCOUNTER → 2022-12-13 | Outpatient (CLI) | payer MEDICARE, OTHER, SELFPAY ==
[2022-02-14 13:29] VITALS: BMI 28.4
--- NOTE | 2022-12-13 15:54 | CT_ITS ---
STUDY: CT CHEST WITHOUT CONTRAST REASON FOR EXAM: Male, 67 years old. 1 cm mass RADIATION DOSAGE (If Supplied By Facility): CTDIvol = ( 8.61 ) mGy, DLP = ( 293.03 ) mGycm TECHNIQUE: Transaxial imaging was performed without the administration of intravenous contrast material. Multiplanar coronal and sagittal images were reformatted. Individualized dose optimization techniques were used for this CT. COMPARISON: Comparison is made with prior study 06/09/2022. FINDINGS: CHEST Hyperinflation. Stable emphysematous changes. Stable scarring at the lung bases slightly more prominent on the right side with a stable 1 cm noncalcified nodule. Stable calcified pleural plaques along the posterior aspect of the left lower lobe. Sternal cerclage wires and vascular clips are present from a prior sternotomy and coronary artery bypass graft procedure (CABG). There are calcifications of the coronary arteries. Normal mediastinum. Normal hilar regions. Normal unenhanced pulmonary arteries. There is atherosclerotic calcification of the aortic arch with tortuosity and elongation of the aortic arch and descending thoracic aorta. There are multi-level degenerative changes of the thoracic spine. There is no demonstrated abnormality of the visualized upper abdomen. CT/Chest without Contrast IMPRESSION: Stable examination. Electronically Signed: Byron Chacon MD at 13:32 EST ,
== END | disposition home or self-care (01) ==
LOC: CT 15:51
PROVIDERS: PCP Internal Medicine; Referring Provider Nurse Practitioner Acute Care; Visit Provider Nurse Practitioner Acute Care
DX: R91.1 Solitary pulmonary nodule (principal)
CPT/HCPCS: 71250

== ENCOUNTER 2022-12-28 06:47 | Day surgery (SDC) | payer MEDICARE, OTHER, SELFPAY ==
[2022-02-14 13:29] VITALS: BMI 28.4
[2022-12-28 07:05] VITALS: BP 152/78; PULSE 98; RESP 18; TEMP 36.1; O2SAT 94; BMI 27.7
[2022-12-28] MEDS: Lactated Ringers 1,000 ML 15 ML IV (07:13)
--- NOTE | 2022-12-28 07:56 | HP.PCM_ITS ---
History and Physical Date of Admission: 12/28/22 (1) Abdominal discomfort: PLAN: The differential diagnosis is abdominal comfort does include COPD induced gastroparesis, medication dose gastroparesis, worsening gas this, medication? induced paresis, atypical reflux disease.? He should undergo gastric emptying study and upper endoscopy to evaluate his upper GI tract.? He was explained alternatives, risk, benefits including outstanding bleeding, infection, sepsis, perforation, need for emergent .? He will have an ASA of 3.? We will also increase his PPI to twice a day.? Also due to the fact that he has COPD and history of CAD he could have superior mesenteric artery syndrome or intestinal angina.? We will need to get a CT angiography to evaluate his gastrointestinal vasculature. 08/18/221900 <Electronically signed by Aleksey Javier DO> Date Aleksey Javier DO cc: ? ~* Signed Intake Vital Signs ? 02/14/2215:06 07/13/2216:46 Height 5 ft 7 in 5 ft 7 in Intake Visit Reasons:?Consult Allergies levofloxacin [From Levaquin] Adverse Reaction (Severe, Verified 08/04/22 12:32) tendonitis Medications aspirin 81 mg tablet,delayed release (Adult Aspirin Regimen) 81 mg PO QDAY heart [facility] 04/23/18 [History Confirmed 08/04/22] omeprazole 20 mg capsule,delayed release 20 mg PO BID reflux 05/11/21 [History Confirmed 08/04/22] albuterol sulfate 90 mcg/actuation aerosol inhaler 2 puff inhalation Q6H PRN sob #8.5 grams 08/05/21 [Rx Confirmed 08/04/22] clopidogrel 75 mg tablet (Plavix) 75 mg PO DAILY anti platelet #90 tabs 10/04/21 [Rx Confirmed 08/04/22] furosemide 40 mg tablet See Rx Instructions .Route .COMPLEX #90 tabs 10/25/21 [Rx Confirmed 08/04/22] losartan 50 mg tablet 50 mg PO QDAY 11/15/21 [History Confirmed 08/04/22] potassium chloride 20 mEq tablet,extended release(part/cryst) (Klor-Con M) 20 meq PO DAILY #30 tabs 11/15/21 [Rx Confirmed 08/04/22] metoprolol succinate 50 mg tablet,extended release 24 hr 50 mg PO BID 02/01/22 [History Confirmed 08/04/22] budesonide-formoterol HFA 160 mcg-4.5 mcg/actuation aerosol inhaler (Symbicort) 2 puff inhalation BID #1 ea 03/07/22 [Rx Confirmed 08/04/22] isosorbide mononitrate 30 mg tablet,extended release 24 hr 30 mg PO DAILY #30 tabs 05/31/22 [Rx Confirmed 08/04/22] ipratropium 0.5 mg-albuterol 3 mg (2.5 mg base)/3 mL nebulization soln 3 ml co ntinuous nebulization Q6H PRN shortness of breath or wheezing #180 mL 06/14/22 [Rx Confirmed 08/04/22] hydrocodone-acetaminophen 5-325mg 5mg-325mg 1 tab PO Q6H PRN pain 3 days #12 tabs 07/13/22 [Rx Confirmed 08/04/22] lidocaine 5 % topical patch (Lidoderm) 1 patch topical DAILY PRN rib pain #15 ea 07/13/22 [Rx Confirmed 08/04/22] rosuvastatin 40 mg tablet 40 mg PO DAILY #90 tabs 07/29/22 [Rx Confirmed 08/04/22] nicotine 21mg/24hr-14mg/24hr-7mg/24hr daily transderm patches,sequentl See Rx Instructions transdermal .COMPLEX #56 patches 08/04/22 [Rx Confirmed 08/04/22] PFSH Medical History Achilles tendinitis of both lower extremities Alcohol use Arthritis Atherosclerosis of coronary artery bypass graft without angina pectoris Atherosclerosis of coronary artery of [place] heart without angina pectoris CAD (coronary artery disease) Cardiology follow-up encounter Chronic bronchitis COPD (chronic obstructive pulmonary disease) DDD (degenerative disc disease), lumbar Diverticulitis Easy bruising Excessive bleeding Gastric reflux High cholesterol History of diverticulitis History of echocardiogram History of stress test History of ulceration Hyperlipidemia Hypertension Hypertension Marijuana use Nicotine dependence Nodule of lower lobe of left lung On home oxygen therapy Osteoarthritis Perforated diverticulum of large intestine Presence of stent in coronary artery (~11/12/21) Shortness of breath on exertion Smoker Surgical History? H/O coronary artery bypass surgery (10/14/96) History of appendectomy History of cardiac catheterization History of colectomy History of left knee replacement History of partial colectomy History of tonsillectomy Hx of left cataract extraction Hx of right cataract extraction Presence of coronary angioplasty implant and graft (~09/29/21) S/p bilateral carpal tunnel release Status post double vessel coronary artery bypass Family History? Father CAD (coronary artery disease)Brother HypertensionGrandfather Pancreatic cancerGrandmother Heart disease Social History? Smoking Status:? Current every day smoker tobacco type: cigarettes alcohol intake:? current alcohol intake frequency: 0-2 drinks per day substance use type:? does not use caffeine:? Yes Type: coffee Number of servings: 2 what type of physical activity do you participate in:? none seatbelt use:? always do you feel safe at home:? Yes HPI HPI Details: RAISA SMILEY, is a 67 M who presents to the office today for Initial consult. Raisa established with this clinic 07.28.22 with referral from PCP for postprandial bloating and nausea causing abdominal discomfort. Eats small meals and all prior to 6PM; taking omeprazole and probiotic both of which he finds helpful. Current smoker of 10 cigarettes a day. Diverticulitis treated with ATB and then perforated 08.12.2012 and went septic requiring partial colectomy performed by Dr. Olson. Follows with [facility], [place] pul[facility]ology and podiatry. FH Maternal grandfather pancreatic cancer. EGD and colonoscopy 06.22.21 at [facility] with duodenal scattered inflammation with erosions, erythema and friability; gastric scattered minimal inflammation with erythema, gastritis. No H.Pylori. Colonoscopy with three tubular adenoma polyps in transverse colon and cecum. Quality Reporting Tobacco Screening ([facility] 138) Smoking Status: Current every day smoker Assessment and Plan Assessment and Plan (1) Abdominal discomfort: ?Status:?Chronic ? ? ? Orders: Orders CRP 07/28/22 R10.9 - Unspecified abdominal p ain ? Erythrocyte Sed Rate 07/28/22 R10.9 - Unspecified abdominal p ain ? SUDHAKAR Comprehensive Panel 07/28/22 R10.9 - Unspecified abdominal p ain ? Calprotectin, Stool 07/28/22 R10.9 - Unspecified abdominal p ain ? Fecal Fat, Qualitative 07/28/22 R10.9 - Unspecified abdominal p ain ? CDIFF (PCR) 07/28/22 R10.9 - Unspecified abdominal p ain ? ENTERIC PATHOGEN PANEL STOOL 07/28/22 K58.9 - Irritable bowel syndrom e without diarrhea, R10.9 - Unspecified abdominal pain, R19.7 - Diarrhea, unspecified ? Stool Lactoferrin/WBC 07/28/22 K58.9 - Irritable bowel syndrom e without diarrhea, R10.9 - Unspecified abdominal pain ? Gastric Emptying Study 07/28/22 K31.84 - Gastroparesis, R10.9 - Unspecified abdominal pain ? ANCA 07/28/22 R10.9 - Unspecified abdominal p ain ? Celiac Disease Profile 07/28/22 R10.9 - Unspecified abdominal p ain ? Immunoglobulin E 07/28/22 R10.9 - Unspecified abdominal p ain ? LARON + Protein Elect, Serum 07/28/22 R10.9 - Unspecified abdominal p ain ? Pancreatic Elastase, Fecal 07/28/22 R10.9 - Unspecified abdominal p ain ? I have examined the patient and the H&P has been reviewed. There are no clinical changes since date of exam.
--- NOTE | 2022-12-28 08:00 | IMM_PTH ---
PATIENT: RAISA SMILEY LOC: EN U#:[id number] AGE/SX: 67/M ROOM: RE12/28/[address]: Dr. Aleksey Javier DO : 1955 BED: DIS: 12/28/2022 SPEC #: [id number] RECD: 12/28/22 13:40 STATUS: ASHUTOSH RELm #: [id number] RAEANN: 12/28/22 08:[address]: Aleksey Javier DEPT: IMMUNOHISTOCHEMISTRY RECD BY: Vannesa Dorantes ENTERED: 12/28/22 13:40 SP TYPE: IMMUNO OTHR DR: Dr. George Vázquez MD Tissues: B - Stomach, NOS Procedures: H Pylori (initial) PHYSICIAN & INSTITUTION [place] [id number] SPECIMEN INFORMATION: Tissue Source: B ? Gastric body Clinical Info: Abdominal pain, diarrhea Specimen Number: [id number] CPT code: 26350 METHODOLOGY: Deparaffinized sections of prefer/formalin-fixed tissue or PAP/DQ stained slides are incubated with monoclonal/polyclonal antibodies/oligonucleotide probes. Localization is made via biotin free immunoperoxidase method. Appropriate controls are performed and reacted as expected. Results on target cell population are indicated in the following table: RESULTS: ANTIBODY / CLONE RESULT Block B H Pylori (polyclonal) negative These tests were developed and their performance characteristics determined by [facility]. They may not have been cleared or approved by the U.S. Food and Drug Administration. The FDA has determined that such clearance or approval is not necessary. The above immunohistochemical/dualISH markers are ordered and reviewed by the Pathologist. INTERPRETATION: B. Gastric body, biopsy: Negative for Helicobacter pylori organisms. SJ:jamie 12/29/2022
--- NOTE | 2022-12-28 08:00 | COLBX_PTH ---
PATIENT: RAISA SMILEY LOC: EN U#:[id number] AGE/SX: 67/M ROOM: RE12/28/[address]: Dr. Aleksey Javier DO : 1955 BED: DIS: 12/28/2022 SPEC #: [id number] RECD: 12/28/22 09:27 STATUS: ASHUTOSH ROWAN #: [id number] RAEANN: 12/28/22 08:[address]: Aleksey Javier DEPT: SURGICAL PATHOLOGY RECD BY: Ronel Case ENTERED: 12/28/22 12:36 SP TYPE: COLON BX OTHR DR: Dr. George Vázquez MD Tissues: A - Duodenum, NOS B - Gastric mucous membrane C - Esophagus, NOS D - Sigmoid colon biopsy E - Cecum, NOS F - COLON BIOPSY Procedures: Special Stain Group II Surgery Specimen Level IV Alcian Blue/PAS (control) HEADER OPERATION: Colonoscopy, EGD (MAC), biopsy, polypectomy PRE-OP DIAGNOSIS: Abdominal pain, nausea TISSUE SUBMITTED: A ? Duodenum biopsy, B ? Gastric body biopsy, C ? Distal esophagus biopsy, D ? Polyp sigmoid, E ? Cecal polyp biopsy, F ? Random colon biopsy MICROSCOPIC DIAGNOSIS A. Duodenum, biopsy: A minute detached fragment of fibrinous material with acute inflammation. Additional fragment of duodenal mucosa, no pathologic diagnosis. B. Gastric body, biopsy: Mild gastritis. See microscopic description and comment. C. Distal esophagus, biopsy: Fragments of gastroesophageal mucosa with ulceration, acute and chronic inflammation and granulation tissue reaction. Intestinal metaplasia (goblet cell metaplasia) not identified. See comment. D. Sigmoid colon polyp, biopsy: Fragments of hyperplastic polyp. Fragments of fecal material. See comment. E. Cecal polyp, biopsy: Fragments of tubular adenoma. F. Colon, random biopsy: Fragments of colonic mucosa, no pathologic diagnosis. SJ:rg 12/29/2022 COMMENT B. The results of immunohistochemistry for Helicobacter pylori will be reported separately ([id number]). C. Alcian blue/PAS stain with matched control is used in the evaluation of the specimen. D. A fragment of benign gastric mucosa is also noted in the specimen and may represent contaminant. MICROSCOPIC DESCRIPTION Slides are reviewed. B. The specimen shows fragments of gastric mucosa with chronic inflammatory cell infiltrates in the lamina propria consisting of lymphocytes and plasma cells, consistent with mild chronic gastritis. GROSS DESCRIPTION A - Received in fixative is one container labeled with the patient's name and designated biopsy duodenum. The specimen consists of multiple irregular fragments of light monique soft tissue that in aggregate measure 1.0 x 0.3 x 0.1 cm. The specimen is totally submitted in one cassette. B - Received in fixative is one container labeled with the patient's name and designated biopsy gastric body. The specimen consists of two irregular fragments of light monique soft tissue that in aggregate measure 0.6 x 0.4 x 0.1 cm. The specimen is totally submitted in one cassette. C - Received in fixative is one container labeled with the patient's name and designated distal esophagus. The specimen consists of two irregular fragments of light monique soft tissue that in aggregate measure 0.6 x 0.4 x 0.1 cm. The specimen is totally submitted in one cassette. D - Received in fixative is one container labeled with the patient's name and designated polyp sigmoid. The specimen consists of multiple irregular fragments of light monique soft tissue mixed with fecal material that in aggregate measure 1.5 x 0.5 x 0.1 cm. The specimen is totally submitted in one cassette. E - Received in fixative is one container labeled with the patient's name and designated biopsy cecal polyp. The specimen consists of two irregular fragments of light monique soft tissue that in aggregate measure 0.6 x 0.4 x 0.1 cm. The specimen is totally submitted in one cassette. F - Received in fixative is one container labeled with the patient's name and designated random colon biopsy. The specimen consists of multiple irregular fragments of light monique soft tissue that in aggregate measure 2.0 x 0.3 x 0.1 cm. The specimen is totally submitted in one cassette. / ZELALEM:jamie 12/28/2022 TC:1 CPT: 87966 x6, 17793
[2022-12-28 08:30] VITALS: BP 152/78; BP 91/70; PULSE 89; RESP 18; TEMP 36.4; O2SAT 97
--- NOTE | 2022-12-28 08:30 | OP.EGD_ITS ---
Patient Name: Horace [facility] Procedure Date: 12/28/2022 7:47 AM Date of : 1955 Age: 67 Procedure: Upper GI endoscopy Indications: Epigastric abdominal pain, Heartburn Providers: Aleksey Javier DO Referring MD: George Vázquez Medicines: Monitored Anesthesia Care Patient Profile: This is a 67 year old male. Refer to note in patient chart for documentation of history and physical. Complications: No immediate complications. Procedure: Pre-Anesthesia Assessment: - Prior to the procedure, a History and Physical was performed, and patient medications and allergies were reviewed. The patient is competent. The risks and benefits of the procedure and the sedation options and risks were discussed with the patient. All questions were answered and informed consent was obtained. Patient identification and proposed procedure were verified by the physician in the pre-procedure area. Mental Status Examination: alert and oriented. Airway Examination: normal oropharyngeal airway and neck mobility. Respiratory Examination: clear to auscultation. CV Examination: normal. Prophylactic Antibiotics: The patient does not require prophylactic antibiotics. Prior Anticoagulants: The patient has taken no previous anticoagulant or antiplatelet agents. After reviewing the risks and benefits, the patient was deemed in satisfactory condition to undergo the procedure. The anesthesia plan was to use monitored anesthesia care (MAC). Immediately prior to administration of medications, the patient was re-assessed for adequacy to receive sedatives. The heart rate, respiratory rate, oxygen saturations, blood pressure, adequacy of pulmonary ventilation, and response to care were monitored throughout the procedure. The physical status of the patient was re-assessed after the procedure. After obtaining informed consent, the endoscope was passed under direct vision. Throughout the procedure, the patient's blood pressure, pulse, and oxygen saturations were monitored continuously. The pediatric colonoscope was introduced through the mouth, and advanced to the second part of duodenum. The upper GI endoscopy was accomplished without difficulty. The patient tolerated the procedure well. Scope In: 8:02:14 AM Scope Out: 8:07:44 AM Total Procedure Duration Time 0 hours 5 minutes 30 seconds Findings: LA Grade B (one or more mucosal breaks greater than 5 mm, not extending between the tops of two mucosal folds) esophagitis with no bleeding was found 36 to 38 cm from the incisors. Biopsies were taken with a cold forceps for histology. Verification of patient identification for the specimen was done. Estimated blood loss was minimal. Patchy mild inflammation characterized by congestion (edema) and erythema was found in the gastric body. Biopsies were taken with a cold forceps for histology. Verification of patient identification for the specimen was done. Estimated blood loss was minimal. Patchy mild inflammation characterized by congestion (edema) was found in the duodenal bulb, in the first portion of the duodenum and in the second portion of the duodenum. Biopsies were taken with a cold forceps for histology. Verification of patient identification for the specimen was done. Estimated blood loss was minimal. Impression: - LA Grade B reflux esophagitis. Biopsied. - Gastritis. Biopsied. - Duodenitis. Biopsied. Recommendation: - Discharge patient to home. - Resume previous diet. - Continue present medications. - Await pathology results. Procedure Code(s): --- Professional --- 02563, Esophagogastroduodenoscopy, flexible, transoral; with biopsy, single or multiple CPT copyright 2017 [employer]. All rights reserved. The codes documented in this report are preliminary and upon label coder review may be revised to meet current compliance requirements. Aleksey Javier DO 12/28/2022 8:30:18 AM This report has been signed electronically. Number of Addenda: 0 Note Initiated On: 12/28/2022 7:47 AM
--- NOTE | 2022-12-28 08:31 | OP.CCLET_ITS ---
12/28/2022 George Vázquez [address] [place] [address] Re : Upper GI endoscopy procedure for Horace [facility] Dear Dr. Vázquez This procedure was performed on Wednesday, December 28, 2022. My impressions and recommendations are as follows: Impressions : - LA Grade B reflux esophagitis. Biopsied. - Gastritis. Biopsied. - Duodenitis. Biopsied. Recommendations : - Discharge patient to home. - Resume previous diet. - Continue present medications. - Await pathology results. My findings are described in the full procedure note, which is enclosed. If I can be of further assistance, please feel free to contact me at . Sincerely, Aleksey Javier, 12/28/2022 8:30:18 AM This report has been signed electronically.
[2022-12-28 08:35] VITALS: BP 105/75; BP 152/78; PULSE 88; RESP 18; O2SAT 95
--- NOTE | 2022-12-28 08:37 | OP.COLON_ITS ---
Patient Name: Horace [facility] Procedure Date: 12/28/2022 8:08 AM Date of : 1955 Age: 67 Procedure: Colonoscopy Indications: Screening for colorectal malignant neoplasm Providers: DO Veronica Bailon MD: George Vázquez Medicines: Monitored Anesthesia Care Patient Profile: This is a 67 year old male. Refer to note in patient chart for documentation of history and physical. Last Colonoscopy: date unknown. Unable to locate last colonoscopy report. Complications: No immediate complications. Procedure: Pre-Anesthesia Assessment: - Prior to the procedure, a History and Physical was performed, and patient medications and allergies were reviewed. The patient is competent. The risks and benefits of the procedure and the sedation options and risks were discussed with the patient. All questions were answered and informed consent was obtained. Patient identification and proposed procedure were verified by the physician in the pre-procedure area. Mental Status Examination: alert and oriented. Airway Examination: normal oropharyngeal airway and neck mobility. Respiratory Examination: clear to auscultation. CV Examination: normal. Prophylactic Antibiotics: The patient does not require prophylactic antibiotics. Prior Anticoagulants: The patient has taken no previous anticoagulant or antiplatelet agents. After reviewing the risks and benefits, the patient was deemed in satisfactory condition to undergo the procedure. The anesthesia plan was to use monitored anesthesia care (MAC). Immediately prior to administration of medications, the patient was re-assessed for adequacy to receive sedatives. The heart rate, respiratory rate, oxygen saturations, blood pressure, adequacy of pulmonary ventilation, and response to care were monitored throughout the procedure. The physical status of the patient was re-assessed after the procedure. After I obtained informed consent, the scope was passed under direct vision. Throughout the procedure, the patient's blood pressure, pulse, and oxygen saturations were monitored continuously. The pediatric colonoscope was introduced through the anus and advanced to the cecum, identified by appendiceal orifice and ileocecal valve. The colonoscopy was performed without difficulty. The patient tolerated the procedure well. The quality of the bowel preparation was adequate. Scope In: 8:10:35 AM Scope Withdrawal Time 0 hours 8 minutes 45 seconds Scope Out: 8:25:19 AM Total Procedure Duration Time 0 hours 14 minutes 44 seconds Findings: The perianal and digital rectal examinations were normal. Many small and large-mouthed diverticula were found in the recto-sigmoid colon and sigmoid colon. There was no evidence of diverticular bleeding. Two sessile polyps were found in the sigmoid colon and cecum. The polyps were 1 to 2 mm in size. These polyps were removed with a hot snare. Resection and retrieval were complete. Verification of patient identification for the specimen was done. Estimated blood loss was minimal. An area of mildly congested mucosa was found in the recto-sigmoid colon, at the splenic flexure and in the ascending colon. Biopsies were taken with a cold forceps for histology. Verification of patient identification for the specimen was done. Estimated blood loss was minimal. Impression: - Diverticulosis in the recto-sigmoid colon and in the sigmoid colon. There was no evidence of diverticular bleeding. - Two 1 to 2 mm polyps in the sigmoid colon and in the cecum, removed with a hot snare. Resected and retrieved. - Congested mucosa in the recto-sigmoid colon, at the splenic flexure and in the ascending colon. Biopsied. Recommendation: - Discharge patient to home. - Resume previous diet. - Continue present medications. - Await pathology results. - Repeat colonoscopy in 5 years for surveillance. Procedure Code(s): --- Professional --- 91067, Colonoscopy, flexible; with removal of tumor(s), polyp(s), or other lesion(s) by snare technique 22898, 59, Colonoscopy, flexible; with biopsy, single or multiple CPT copyright 2017 [employer]. All rights reserved. The codes documented in this report are preliminary and upon manager vehicle review may be revised to meet current compliance requirements. Aleksey Javier DO 12/28/2022 8:37:38 AM This report has been signed electronically. Number of Addenda: 0 Note Initiated On: 12/28/2022 8:08 AM
--- NOTE | 2022-12-28 08:38 | OP.CCLET_ITS ---
12/28/2022 George Vázquez [address] [place] [address] Re : Colonoscopy procedure for Horace [facility] Dear Dr. Vázquez This procedure was performed on Wednesday, December 28, 2022. My impressions and recommendations are as follows: Impressions : - Diverticulosis in the recto-sigmoid colon and in the sigmoid colon. There was no evidence of diverticular bleeding. - Two 1 to 2 mm polyps in the sigmoid colon and in the cecum, removed with a hot snare. Resected and retrieved. - Congested mucosa in the recto-sigmoid colon, at the splenic flexure and in the ascending colon. Biopsied. Recommendations : - Discharge patient to home. - Resume previous diet. - Continue present medications. - Await pathology results. - Repeat colonoscopy in 5 years for surveillance. My findings are described in the full procedure note, which is enclosed. If I can be of further assistance, please feel free to contact me at . Sincerely, Aleksey Javier DO 12/28/2022 8:37:38 AM This report has been signed electronically.
[2022-12-28 08:40] VITALS: BP 121/77; BP 152/78; PULSE 88; RESP 16; O2SAT 96
[2022-12-28 08:45] VITALS: BP 131/85; BP 152/78; PULSE 87; RESP 16; TEMP 36.9; O2SAT 95
[2022-12-28 09:02] VITALS: BP 152/78
== END 2022-12-28 09:12 | disposition home or self-care (01) ==
LOC: EN 06:48 → AC 06:49
PROVIDERS: PCP Internal Medicine; Referring Provider Internal Medicine; Visit Provider Internal Medicine Gastroenterology
PROC: 0DJD8ZZ Inspection of Lower Intestinal Tract, Via Natural or Artificial Opening Endoscopic (ICD-10-PCS; CPT 45378; principal; 2022-12-28 07:55)
DX: D12.0 Benign neoplasm of cecum (principal); J44.9 Chronic obstructive pulmonary disease, unspecified; K57.30 Diverticulosis of large intestine without perforation or abscess without bleeding; K29.70 Gastritis, unspecified, without bleeding; K29.80 Duodenitis without bleeding; F17.210 Nicotine dependence, cigarettes, uncomplicated; I25.10 Atherosclerotic heart disease of native coronary artery without angina pectoris; K21.00 Gastro-esophageal reflux disease with esophagitis, without bleeding; E78.00 Pure hypercholesterolemia, unspecified; I10 Essential (primary) hypertension; M51.36 Other intervertebral disc degeneration, lumbar region; K63.89 Other specified diseases of intestine; K31.89 Other diseases of stomach and duodenum; Z99.81 Dependence on supplemental oxygen; Z95.5 Presence of coronary angioplasty implant and graft; Z95.1 Presence of aortocoronary bypass graft; Z79.82 Long term (current) use of aspirin; Z79.899 Other long term (current) drug therapy; Z80.0 Family history of malignant neoplasm of digestive organs; Z79.01 Long term (current) use of anticoagulants
CPT/HCPCS: 45380; 45385; 43239; 88305; 88313; 88342; J7120; J2405

== ENCOUNTER → 2023-01-24 | Outpatient (CLI) | payer MEDICARE, OTHER, SELFPAY ==
[2022-02-14 13:29] VITALS: BMI 28.4
[2023-01-24 08:38] LABS: AST(SGOT) 19 U/L (15-37); Alanine Aminotransfer ALT/SGPT 20 U/L (16-61); Albumin, Serum 3.7 g/dL (3.2-5.0); Alkaline Phosphatase 76 U/L (45-117); Anion Gap 5 (5-15); BUN 23 mg/dL (7-18); BUN/Creat Ratio 14.6 RATIO (10-20); Bilirubin, Direct 0.15 mg/dL (0.00-0.30); Calcium,Total 9.4 mg/dL (8.5-10.1); Chloride 104 mmol/L (98-107); Cholesterol 154 mg/dL (200); Creatinine, Serum 1.57 mg/dL (0.70-1.30); EST Glomerular Filtration Rate 47 mL/min (>60); Est Glom Filt Rate - Afr Amer 57 mL/min (>60); Globulin 3.5 g/dL (2.2-4.2); Glucose 98 mg/dL (74-106); High Density Lipoprotein 62 mg/dL; Potassium 3.6 mmol/L (3.5-5.1); Protein, Total 7.2 g/dL (6.4-8.2); Sodium Level 137 mmol/L (136-145); Triglycerides 156 mg/dL; Very Low Density Lipoprotein 31 mg/dL (5-40)
== END | disposition home or self-care (01) ==
LOC: LAB 07:12
PROVIDERS: Internal Medicine Cardiovascular Disease; PCP Internal Medicine; Referring Provider Internal Medicine; Visit Provider Internal Medicine
DX: I10 Essential (primary) hypertension (principal); R19.7 Diarrhea, unspecified; K58.9 Irritable bowel syndrome, unspecified; R10.9 Unspecified abdominal pain; E78.00 Pure hypercholesterolemia, unspecified
CPT/HCPCS: 36415; 80048; 80061; 80076

== ENCOUNTER → 2023-01-28 | Outpatient (CLI) | payer MEDICARE, OTHER, SELFPAY ==
[2022-02-14 13:29] VITALS: BMI 28.4
[2023-02-06 11:13] LABS: Calprotectin, Stool <16 ug/g (0-120); Fats, Neutral Normal (.); Fats, Total Normal (.); Pancreatic Elastase, Fecal 90 (>200)
== END | disposition home or self-care (01) ==
PROVIDERS: PCP Internal Medicine; Referring Provider Nurse Practitioner Adult Health; Visit Provider Internal Medicine Gastroenterology
DX: R10.13 Epigastric pain (principal); R14.0 Abdominal distension (gaseous)
CPT/HCPCS: 82653; 82705; 83630; 83993

== ENCOUNTER 2023-03-17 15:33 | Emergency (ER) | payer MEDICARE, OTHER, SELFPAY ==
[2022-02-14 13:29] VITALS: BMI 28.4
[2023-03-17 15:33] VITALS: BP 133/83; PULSE 96; RESP 16; TEMP 36.6; O2SAT 96
--- NOTE | 2023-03-17 15:51 | EKG12_ITS ---
Test Reason : SOB Blood Pressure : / mmHG Vent. Rate : 082 BPM Atrial Rate : 082 BPM P-R Int : 128 ms QRS Dur : 138 ms QT Int : 380 ms P-R-T Axes : 072 -70 035 degrees QTc Int : 443 ms Normal sinus rhythm with sinus arrhythmia Left axis deviation Right bundle branch block Abnormal ECG Confirmed by BHUPINDER LOPEZ, KARON ([id number]), society editor REBEL PRICE ([id number]) on 03/20/2023 10:50:49 AM Referred By: BILLY Confirmed By:KARON ROE MD
[2023-03-17] MEDS: Ipratropium/Albuterol Sulfate 3 ML AMPUL.NEB INHALATION (15:58)
[2023-03-17 16:00] VITALS: PULSE 90; RESP 18
--- NOTE | 2023-03-17 16:01 | EDS_ITS ---
HPI History of Present Illness Chief Complaint: Shortness of Breath Informant: patient Narrative Narrative: Presents to the pulmonary office secondary to shortness of breath and irregular heart rate. Patient has a history of COPD. He states last weekend he got sick with an upper respiratory infection. He called the office on Monday and was given antibiotics and prednisone. He states overall his URI symptoms seem to be improved. Today he felt he could just not get a big deep breath in. He was seen in the pulmonary office and reportedly on auscultation the patient's heart rate sounded irregular. He had no history of an irregular heart rate so was sent to the emergency room. [facility] Medical History Alcohol use Arthritis Atherosclerosis of coronary artery bypass graft without angina pectoris Atherosclerosis of coronary artery of [place] heart without angina pectoris Cardiology follow-up encounter Chronic bronchitis COPD (chronic obstructive pulmonary disease) DDD (degenerative disc disease), lumbar Easy bruising Essential hypertension Excessive bleeding Gallstone Gastric reflux High cholesterol History of diverticulitis History of echocardiogram History of pain when walking History of steroid therapy History of stress test History of ulceration Hyperlipidemia Hypertension Nicotine dependence Nodule of lower lobe of left lung On home oxygen therapy Osteoarthritis Perforated diverticulum of large intestine Presence of stent in coronary artery (~11/12/21) Shortness of breath on exertion Smoker Home Medications clopidogrel 75 mg tablet (Plavix) 75 mg PO DAILY anti platelet #90 tabs 10/04/21 [Rx Last Taken 11/26/22] losartan 50 mg tablet 50 mg PO QDAY 11/15/21 [History Last Taken 12/28/22] metoprolol succinate 50 mg tablet,extended release 24 hr 50 mg PO BID 02/01/22 [History Last Taken 12/28/22] isosorbide mononitrate 30 mg tablet,extended release 24 hr 30 mg PO DAILY #30 tabs 05/31/22 [Rx Last Taken 12/02/22] ipratropium 0.5 mg-albuterol 3 mg (2.5 mg base)/3 mL nebulization soln 3 ml continuous nebulization Q6H PRN shortness of breath or wheezing #180 mL 06/14/22 [Rx Last Taken Unknown] albuterol sulfate 90 mcg/actuation aerosol inhaler 2 puff inhalation Q6H PRN PRN Shortness Of Breath 10/28/22 [History Last Taken 12/02/22] aspirin 81 mg tablet,delayed release 81 mg PO DAILY 11/24/22 [History Last Taken 12/26/22] furosemide 40 mg tablet 40 mg PO DAILY 11/24/22 [History Last Taken 12/02/22] rosuvastatin 40 mg tablet 40 mg PO QHS 11/24/22 [History Last Taken Unknown] omeprazole 40 mg capsule,delayed release 40 mg PO DAILY 01/13/23 [History Last Taken Unknown] budesonide-formoterol HFA 160 mcg-4.5 mcg/actuation aerosol inhaler (Symbicort) 2 puff inhalation BID #3 ea 02/03/23 [Rx Last Taken Unknown] roflumilast 500 mcg tablet (Daliresp) 500 mcg PO DAILY #30 tabs 02/03/23 [Rx Last Taken Unknown] doxycycline hyclate 100 mg tablet 100 mg PO BID #20 tabs 03/13/23 [Rx Last Taken Unknown] Allergy/AdvReac Type Severity Reaction Status Date / Time levofloxacin [From Levaquin] AdvReac Severe tendonitis Verified 03/17/23 15:35 Family History Father CAD (coronary artery disease) Brother Hypertension Grandfather Pancreatic cancer Grandmother Heart disease Surgical History H/O coronary artery bypass surgery (10/14/96) History of appendectomy History of cardiac catheterization History of colectomy History of laparoscopic cholecystectomy History of left knee replacement History of partial colectomy History of tonsillectomy Hx of left cataract extraction Hx of right cataract extraction Presence of coronary angioplasty implant and graft (~09/29/21) S/p bilateral carpal tunnel release S/P laparoscopic cholecystectomy Status post double vessel coronary artery bypass Social History Smoking Status: Current every day smoker tobacco type: cigarettes alcohol intake: current alcohol intake frequency: 0-2 drinks per day substance use type: does not use caffeine: Yes Type: coffee Number of servings: 2 what type of physical activity do you participate in: none seatbelt use: always do you feel safe at home: Yes ROS ROS ED Constitutional Constitutional ED: Denies chills or fever(s) Eyes Eyes: Denies change in vision or discharge from eye(s) ENT ENT ED: Denies discharge from eye(s), rhinorrhea or sore throat Cardiovascular Cardiovascular: Reports other Details: Back heaviness greater than chest heaviness ; Denies palpitations Respiratory/Chest Respiratory/Chest: Reports cough and dyspnea Gastrointestinal Gastrointestinal: Denies abdominal pain, nausea or vomiting Genitourinary Genitourinary ED: Denies dysuria Musculoskeletal Musculoskeletal: Reports back pain; Denies extremity pain Integumentary Denies Abrasions or rash Neurologic Neurologic: Denies headache(s) or weakness Endocrine Endocrinology: Denies polydipsia or polyuria Allergic/Immunologic Allergic/Immunologic ED: Denies lip swelling or urticaria EXAM Physical Exam Const Vital Signs: 03/17/23 15:33 03/17/23 16:00 03/17/23 16:37 Temperature 98 F Temperature Source Temporal Pulse Rate 96 90 Respiratory Rate 16 18 Respiratory Effort Normal Non-Labored Respiratory Depth Normal Respiratory Pattern Normal Normal Blood Pressure 133/83 H Blood Pressure Mean 99 Pulse Ox 96 Oxygen Delivery Method Room Air Room Air Positive well nourished and well developed General Appearance ED: well developed HEENT Reports moist mucous membranes Eyes PERRL and EOMs intact bilaterally Chest Wall inspection of chest normal and palpation of chest normal Resp normal respiratory effort and clear to auscultation bilaterally Cardio regular rate and regular rhythm GI normal to inspection, nondistended, normoactive bowel sounds Extremity normal to inspection Neuro oriented x3 and no sensory deficits noted Motor Exam: strength 5/5 throughout Psych mental status grossly normal Skin no rashes or lesions noted MDM MDM MDM Narrative Medical decision making narrative: Patient is placed on utility operator. Labwork obtained to evaluate for leukocytosis, anemia, and electrolyte derangement. EKG obtained to evaluate for cardiac arrhythmia/ischemia. Chest x-ray obtained to evaluate for acute lung pathology, cardiac size, or mediastinal abnormality. History & Record Review Additional record(s) reviewed:: Prior outpatient record Lab Data Attestation: I reviewed the patient's lab results. Labs: Laboratory Results - last 24 hr 03/17/23 03/17/23 03/17/23 16:05 16:05 16:05 WBC 9.2 RBC 5.00 Hgb 15.3 Hct 45.8 MCV 91.6 MCH 30.6 MCHC 33.4 RDW Std Deviation 43.8 RDW Coeff of Lisa 13.1 Plt Count 279 MPV 9.0 Immature Gran % (Auto) 0.700 Neut % (Auto) 89.5 H Lymph % (Auto) 6.9 L [place] % (Auto) 2.7 Eos % (Auto) 0.0 Baso % (Auto) 0.2 Absolute Neuts (auto) 8.2 H Absolute Lymphs (auto) 0.63 L Nucleated RBC % 0 D-Dimer Quant (PE/DVT) 0.56 H* Sodium 139 Potassium 4.0 Chloride 103 Carbon Dioxide 30.0 Anion Gap 6 BUN 26 H Creatinine 1.25 Est GFR (MDRD) Af Amer 74 Est GFR (MDRD) Non-Af 61 BUN/Creatinine Ratio 20.8 H Glucose 126 H Calcium 10.2 H Troponin I High Sens 15 Radiography Chest X-Ray - ED: 1 View, Read by ED Physician, Chronic Changes and No Infiltrates EKG Initial EKG: Attestation: I personally reviewed and interpreted this EKG as follows: Interpretation: Sinus Rhythm (Sinus 82 with no acute ischemia. Right bundle branch block noted along with sinus arrhythmia. No evidence of acute ischemia.) Differential Diagnosis Chest pain/SOB: pulmonary embolism Reason(s) PE less likely: Positive for D- Dimer negative, not tachycardic and not hypoxic, ACS ACS: Positive for no evidence of ACS based on cardiac biomarkers and EKG without ischemia and pneumonia Reason(s) pneumonia less likely: Positive for no infiltrate on CXR Differential Diagnosis: Atrial fibrillation Why less likely: Sinus rhythm noted on utility operator and EKG. Treatment and Re-Evaluation :: I did review patient's utility operator throughout his ED stay. He does have PVCs noted intermittently. CBC and chemistry studies are unremarkable. Troponin is normal at 15. D-dimer is 0.56, normal when age-adjusted. EKG is sinus rhythm with right bundle branch block and sinus arrhythmia. No evidence of acute ischemia. Portable chest x- ray per my interpretation reveals chronic postoperative changes with no acute infiltrate. Patient was given a DuoNeb treatment here. On repeat evaluation he states he did not notice much improvement and he still feels like he cannot quite get a deep breath in. Test results are discussed with him. I advised him that he has no evidence of blood clot or heart attack. His x-ray shows no evidence of infiltrate or congestive heart failure. He is having more PVCs today, however has not yet taken his metoprolol. He does not have symptoms with the PVCs. At this time I recommended follow-up with both pulmonary and cardiology. Return instructions are given and he is comfortable this plan. Discharge Plan Triage Chief Complaint: Shortness of Breath ED Provider: Soraya Mas Dx/Rx/DC Orders Clinical Impression: Dyspnea, COPD (chronic obstructive pulmonary disease), PVC's (premature ventricular contractions) Instructions: PVCs, ED Dyspnea Prescriptions: No Action clopidogrel [Plavix] 75 mg tablet 75 mg PO DAILY Qty: 90 4RF Hold Instructions: Resume on 12/04/22. metoprolol succinate 50 mg tablet extended release 24 hr 50 mg PO BID losartan 50 mg tablet 50 mg PO QDAY Hold Instructions: Restart in 1 week or earlier if you check your blood pressure and your systolic blood pressure (top number) is greater than 140 roflumilast [Daliresp] 500 mcg tablet 500 mcg PO DAILY Qty: 30 11RF budesonide-formoterol [Symbicort] 160-4.5 mcg/actuation HFA aerosol inhaler 2 puff inhalation BID Qty: 3 3RF Rx Instructions: administer with spacer, rinse mouth after each use omeprazole 40 mg capsule,delayed release(DR/EC) 40 mg PO DAILY albuterol sulfate 90 mcg/actuation HFA aerosol inhaler 2 puff INHALATION Q6H PRN PRN (Reason: Shortness Of Breath) Label Comments: INHALE 2 PUFFS INSTRUCTED EVERY 6 HOURS NEEDED FOR WHEEZING/SHORTNESS OF BREATH. aspirin 81 mg Tablet,Delayed Release (Dr/Ec) 81 mg PO DAILY furosemide 40 mg tablet 40 mg PO DAILY rosuvastatin 40 mg tablet 40 mg PO QHS isosorbide mononitrate 30 mg tablet extended release 24 hr 30 mg PO DAILY Qty: 30 11RF ipratropium-albuterol 0.5 mg-3 mg(2.5 mg base)/3 mL solution for nebulization 3 ml continuous nebulization Q6H PRN (Reason: shortness of breath or wheezing) Qty: 180 11RF doxycycline hyclate 100 mg tablet 100 mg PO BID Qty: 20 0RF Primary Care Provider: George Vázquez Referrals: George Vázquez MD [Primary Care Provider] - Radha Roberts NP, [facility] [Med Staff - Adv Practice Prof] - As soon as possible Daniel Saeed [employer] [employer] [facility], [facility] [Med Staff - Adv Practice Prof] - As soon as possible Disposition Disposition: Home, Self Care
[2023-03-17 16:12] LABS: Absolute Lymphocyte Count 0.63 X10^3/uL (0.83-4.51); Absolute Neutrophil Count 8.2 X10^3/uL (2.0-7.7); Basophil# 0.02 X10^3/uL; Basophil% 0.2 % (0-1); Hematocrit 45.8 % (40-54); Hemoglobin 15.3 g/dL (13.0-16.5); Lymphocyte # 0.63 X10^3/ul (0.83-4.51); Lymphocyte % 6.9 % (19-41); Mean Corp Hgb Conc 33.4 g/dL (32-36); Mean Corpuscular Hgb 30.6 pg (27.0-32.0); Mean Corpuscular Volume 91.6 fL (80-94); Monocyte# 0.25 X10^3/uL; Monocyte% 2.7 % (0-10); NRBC Flagged by Analyzer 0 % (0-5); Neutrophil # 8.19 X10^3/uL (2.7-7.7); Neutrophil % 89.5 % (47-70); Platelet Count 279 K/mm3 (150-450); RBC Distribution Width CV 13.1 % (11.6-14.6); RBC Distribution Width SD 43.8 fl (35.1-43.9); White Blood Count 9.2 K/mm3 (4.4-11.0)
[2023-03-17 16:29] LABS: Anion Gap 6 (5-15); BUN 26 mg/dL (7-18); BUN/Creat Ratio 20.8 RATIO (10-20); Calcium,Total 10.2 mg/dL (8.5-10.1); Chloride 103 mmol/L (98-107); Creatinine, Serum 1.25 mg/dL (0.70-1.30); EST Glomerular Filtration Rate 61 mL/min (>60); Est Glom Filt Rate - Afr Amer 74 mL/min (>60); Glucose 126 mg/dL (74-106); Sodium Level 139 mmol/L (136-145); Troponin-I HS 15 pg/mL (3.0-78.0)
--- NOTE | 2023-03-17 16:33 | RAD_ITS ---
INDICATION: sob EXAMINATION/TECHNIQUE: X-RAY - XR Chest 1 View COMPARISON: Similar 2021 FINDINGS: LINES/DEVICES: None. LUNGS: Mild bibasilar fibrosis. Over aeration consistent with COPD. Biapical pleural thickening. MEDIASTINUM AND CARDIOVASCULAR STRUCTURES: [place] post sternotomy. Heart size normal. BONES AND SOFT TISSUES: Unremarkable. Stable exam. RAD/Chest 1 View (Portable) IMPRESSION: Status post sternotomy. Mild bibasilar fibrosis. COPD. Electronically Signed: Jesus Parisi MD, MIGUE at 17:14 EDT ,
[2023-03-17 16:34] LABS: D-Dimer Quantitative (DVT/PE) 0.56 FEU/ug/m (0.27-0.49)
[2023-03-17 16:37] VITALS: O2SAT 99
[2023-03-17 17:08] VITALS: BP 138/83; PULSE 76; RESP 14; O2SAT 96
== END 2023-03-17 17:09 | disposition home or self-care (01) ==
PROVIDERS: Emergency Provider Emergency Medicine; PCP Internal Medicine; Visit Provider Emergency Medicine
DX: R06.00 Dyspnea, unspecified (principal); J44.9 Chronic obstructive pulmonary disease, unspecified; I49.3 Ventricular premature depolarization; F17.210 Nicotine dependence, cigarettes, uncomplicated; E78.00 Pure hypercholesterolemia, unspecified; I10 Essential (primary) hypertension; I25.10 Atherosclerotic heart disease of native coronary artery without angina pectoris; Z79.899 Other long term (current) drug therapy; Z79.02 Long term (current) use of antithrombotics/antiplatelets; Z99.81 Dependence on supplemental oxygen; Z95.5 Presence of coronary angioplasty implant and graft; Z79.82 Long term (current) use of aspirin; K21.9 Gastro-esophageal reflux disease without esophagitis; Z79.51 Long term (current) use of inhaled steroids; Z90.49 Acquired absence of other specified parts of digestive tract; Z96.652 Presence of left artificial knee joint
CPT/HCPCS: 71045; 80048; 84484; 85025; 85379; 93005; 94640; 99284; A4216

== ENCOUNTER 2023-04-06 08:31 | Outpatient (RCR) | payer MEDICARE, OTHER, SELFPAY ==
[2022-02-14 13:29] VITALS: BMI 28.4
== END 2023-04-06 08:32 | disposition home or self-care (01) ==
LOC: PT 08:31
PROVIDERS: PCP Internal Medicine; Referring Provider Podiatrist Foot & Ankle Surgery; Visit Provider Podiatrist Foot & Ankle Surgery
DX: R29.898 Other symptoms and signs involving the musculoskeletal system (principal); R26.81 Unsteadiness on feet

== ENCOUNTER → 2023-05-11 | Outpatient (CLI) | payer MEDICARE, OTHER, SELFPAY ==
[2022-02-14 13:29] VITALS: BMI 28.4
--- NOTE | 2023-05-12 09:36 | PFT ---
INTRODUCTION: The patient is a 67-year-old male that presents for pulmonary function studies secondary to a diagnosis of COPD. Respiratory therapy reported good patient effort. Bronchodilators were used during testing. INTERPRETATION: Forced expiration spirometry demonstrates the presence of a severe large airways obstructive ventilatory defect. There was no significant response to aerosolized bronchodilators. Spirograms are of fair quality but do not plateau indicating slow emptying of the lungs. Body plethysmography was performed and revealed lung volumes to be within normal limits. Diffusing capacity by single breath CO was also within normal limits. IMPRESSION: Irreversible severe large airways obstructive ventilatory defect with preserved lung volumes and diffusing capacity.
== END | disposition home or self-care (01) ==
LOC: PSN 10:19
PROVIDERS: PCP Internal Medicine; Referring Provider Nurse Practitioner Acute Care; Visit Provider Nurse Practitioner Acute Care
DX: J44.9 Chronic obstructive pulmonary disease, unspecified (principal)
CPT/HCPCS: 94060; 94726; 94729

== ENCOUNTER → 2023-05-24 | Outpatient (CLI) | payer MEDICARE, OTHER, SELFPAY ==
[2022-02-14 13:29] VITALS: BMI 28.4
--- NOTE | 2023-05-24 08:39 | STRESSREP ---
Stress Test Report Date: 05/24/2020 Procedure: Pharmacologic stress nuclear imaging study Indications: Dyspnea Consent: Per the patient Procedure: The patient underwent pharmacologic (Regadenoson 0.4mg ) evaluation with a peak heart rate of 120 beats per minute (80%predicted maximal heart rate) and a peak blood pressure of 118/78 mmHg. The baseline ECG demonstrated normal sinus rhythm with right bundle branch block. The peak pharmacologic ECG demonstrated no diagnostic changes. PVCs noted during infusion and in recovery. There was no complaint of chest discomfort during pharmacologic infusion or recovery. The patient was injected with 12.0 millicuries of technetium 99m Cardiolite and subsequently rest SPECT Cardiolite nuclear imaging was obtained in the horizontal long, vertical long, and short axis views. The patient underwent pharmacologic (Regadenoson) evaluation. The patient was injected with 34.5 millicuries of technetium 99m Cardiolite and subsequently stress SPECT Cardiolite nuclear imaging was obtained in the horizontal long, vertical long, and short axis views. A gated Cardiolite study at peak stress was obtained. The examination was stopped secondary to completion of protocol. Rest and stress SPECT Cardiolite nuclear imaging status post realignment, normalization, and attenuation correction demonstrate no reversible or fixed perfusion defect. There is end systolic thickening and brightening. The gated Cardiolite study demonstrates myocardial thickening and inward wall motion. The reported LVEF is 74%. Impression: 1. Pharmacologic (Regadenoson) evaluation 2. Peak pharmacologic ECG with no diagnostic ischemic changes. 3. PVCs noted during pharmacologic infusion and in recovery. 5. Rest and stress SPECT Cardiolite nuclear imaging demonstrate relative uniform tracer uptake and myocardial perfusion appearing within normal limits. 6. The gated Cardiolite study reports an LVEF of 74%. This note was generated with CartMomoation software. It may contain incorrect words, spelling, and punctuation that were not noted in checking the note before signing.
== END | disposition home or self-care (01) ==
LOC: CVS 06:32
PROVIDERS: PCP Internal Medicine; Referring Provider Physician Assistant Medical; Visit Provider Physician Assistant Medical
DX: R06.02 Shortness of breath (principal); Z95.5 Presence of coronary angioplasty implant and graft; I25.810 Atherosclerosis of coronary artery bypass graft(s) without angina pectoris
CPT/HCPCS: 78452; 93017; A9500; A4216; J2785

== ENCOUNTER → 2023-05-31 | Outpatient (CLI) | payer MEDICARE, OTHER, SELFPAY ==
[2022-02-14 13:29] VITALS: BMI 28.4
--- NOTE | 2023-05-31 07:00 | CT_ITS ---
EXAM: CT CHEST WITHOUT INTRAVENOUS CONTRAST CLINICAL INDICATION: FOLLOW MASS, SMOKER FOLLOW MASS, SMOKER TECHNIQUE: Helically acquired images were obtained of the chest without intravenous contrast. This CT exam was performed using one or more of the following dose reduction techniques: automated exposure control, adjustment of the mA and/or kV according to patient size, and/or use of iterative reconstruction technique. RADIATION DOSE: CTDIvol = 12.61 mGy, DLP = 453.71 mGy-cm COMPARISON: CT scan 12/13/2022, 06/09/2022, and 12/29/2021. FINDINGS: LUNGS AND PLEURAL SPACES: As seen on series 2, axial images 94-96, there is a 0.6 x 1.2 cm left lower lobe lung nodule in the lateral periphery left lower lung field, contiguous with the pleural surface and within an area of scarring (average diameter 9 mm). There is no significant change in size from previous studies. There are centrilobular and paraseptal emphysematous bullae in the lungs bilaterally. There are mild fibrotic changes in the lungs bilaterally greatest in the lower lung bae. There are calcified right posterior pleural plaques. No pneumothorax. HEART: There are prominent coronary artery calcifications. There are sternotomy wires and surgical clips suggesting previous CABG. Heart size is normal. No pericardial effusion. MEDIASTINUM: Unremarkable. No mediastinal or hilar adenopathy. Esophagus is unremarkable. No hiatal hernia. THYROID: Unremarkable. No thyroid lesions. BONES/JOINTS: There are old healed right rib fractures. There are multilevel degenerative changes in the visualized spine. There are bridging osteophytes at multiple contiguous levels of the thoracic spine, consistent with DISH (diffuse idiopathic skeletal hyperostosis). No suspicious lytic or blastic abnormality. VASCULATURE: There is atherosclerotic calcification of the aortic arch. KIDNEYS AND URETERS: There is cortical scarring the visualized upper pole of the right kidney there is a simple appearing right renal cyst which is stable in appearance. There is a hyperdense right upper pole renal cyst, also present on previous exams. No further imaging evaluation is necessary. CT/Chest without Contrast IMPRESSION: 1. Redemonstration of a 9 mm pleural-based left lower lobe lung nodule with no significant exchange administrator the last 17 months. For low-risk or high-risk patients consider a follow-up chest CT at 12-18 months. If unchanged, no further follow-up. 2. Fibrotic and emphysematous changes in the lungs. Calcified pleural plaque. 3. Atherosclerosis. 4. No evidence for acute cardiopulmonary pathology. Electronically Signed: Castro Alonso MD at 8:06 EDT Reading Location ID and State: [facility] / [place] , Service support ,
== END | disposition home or self-care (01) ==
LOC: CT 07:00
PROVIDERS: PCP Internal Medicine; Referring Provider Nurse Practitioner Acute Care; Visit Provider Nurse Practitioner Acute Care
DX: R91.1 Solitary pulmonary nodule (principal)
CPT/HCPCS: 71250

== ENCOUNTER → 2023-07-21 | Outpatient (CLI) | payer MEDICARE, OTHER, SELFPAY ==
[2022-02-14 13:29] VITALS: BMI 28.4
== END | disposition home or self-care (01) ==
PROVIDERS: PCP Internal Medicine; Visit Provider Nurse Practitioner Acute Care
DX: J02.9 Acute pharyngitis, unspecified (principal)
CPT/HCPCS: 87632

== ENCOUNTER → 2023-08-04 | Outpatient (CLI) | payer MEDICARE, OTHER, SELFPAY ==
[2022-02-14 13:29] VITALS: BMI 28.4
[2023-08-04 11:04] LABS: AST(SGOT) 18 U/L (15-37); Alanine Aminotransfer ALT/SGPT 30 U/L (16-61); Albumin, Serum 3.7 g/dL (3.2-5.0); Alkaline Phosphatase 85 U/L (45-117); Cholesterol 159 mg/dL (200); Globulin 3.5 g/dL (2.2-4.2); High Density Lipoprotein 75 mg/dL; Protein, Total 7.2 g/dL (6.4-8.2); Triglycerides 150 mg/dL; Very Low Density Lipoprotein 30 mg/dL (5-40)
== END | disposition home or self-care (01) ==
LOC: LAB 08:48
PROVIDERS: Nurse Practitioner Gerontology; PCP Internal Medicine; Referring Provider Nurse Practitioner Acute Care; Visit Provider Nurse Practitioner Acute Care
DX: E78.00 Pure hypercholesterolemia, unspecified (principal); J06.9 Acute upper respiratory infection, unspecified
CPT/HCPCS: 36415; 80061; 80076; 87070; 87205

== ENCOUNTER → 2023-08-07 | Outpatient (CLI) | payer MEDICARE, OTHER, SELFPAY ==
[2022-02-14 13:29] VITALS: BMI 28.4
--- NOTE | 2023-08-07 11:03 | CT_ITS ---
HISTORY: TIA. TECHNIQUE: Multiple axial images were obtained of the head without intravenous contrast. Subsequently, CTA head was performed after the intravenous demonstration of 100 mL Isovue 370. A radiation dose optimization technique was used for this scan. 1474 images. COMPARISON: None. FINDINGS: BRAIN PARENCHYMA: Multiple foci and zones of low attenuation in the bilateral cerebral white matter compatible with chronic small vessel ischemic gliosis. Chronic left inferior cerebellar lacunar infarct. No acute intra-axial hemorrhage identified. CSF SPACES: Mild generalized volume loss. No midline shift or other significant mass effect. No acute extra-axial hemorrhage seen. OTHER: Intact calvarium. Small maxillary sinus mucous retention cysts. Bilateral lens resections. INTERNAL CAROTID ARTERIES: Mild calcified plaque without significant stenosis or aneurysm. ANTERIOR CEREBRAL ARTERIES: No significant stenosis. No anterior communicating artery aneurysm. MIDDLE CEREBRAL ARTERIES: No significant stenosis. No focal vascular abnormality. POSTERIOR CEREBRAL ARTERIES: No significant stenosis. No vascular malformation. BASILAR ARTERY: No significant stenosis, occlusion, or aneurysm. VERTEBRAL ARTERIES: Mild calcified plaque with less than 30% stenosis. No occlusion or vascular malformation. CT/CTA Head W/WO Contrast IMPRESSION: No acute intracranial process identified. Mild chronic involutional and white matter changes. No evidence for large vessel occlusion or other focal vascular abnormality in the [place] region. Electronically Signed: Sarah Mcclellan MD at 12:37 EDT ,
[2023-08-07 11:29] LABS: CREATININE FINGERSTICK 1.1 mg/dL (0.70-1.30); EGFR FINGERSTICK > 60.0000 mL/min (>60)
== END | disposition home or self-care (01) ==
PROVIDERS: PCP Internal Medicine; Referring Provider Physician Assistant Medical; Visit Provider Physician Assistant Medical
DX: G45.9 Transient cerebral ischemic attack, unspecified (principal)
CPT/HCPCS: 70496; Q9967

== ENCOUNTER → 2023-08-11 | Outpatient (CLI) | payer MEDICARE, OTHER, SELFPAY ==
[2022-02-14 13:29] VITALS: BMI 28.4
== END | disposition home or self-care (01) ==
PROVIDERS: PCP Internal Medicine; Referring Provider Nurse Practitioner Acute Care; Visit Provider Nurse Practitioner Acute Care
DX: J44.9 Chronic obstructive pulmonary disease, unspecified (principal)
CPT/HCPCS: 87070; 87205

== ENCOUNTER → 2023-08-17 | Outpatient (CLI) | payer MEDICARE, OTHER, SELFPAY ==
[2022-02-14 13:29] VITALS: BMI 28.4
== END | disposition home or self-care (01) ==
LOC: PSN 09:55
PROVIDERS: PCP Internal Medicine; Referring Provider Physician Assistant Medical; Visit Provider Physician Assistant Medical
DX: R00.0 Tachycardia, unspecified (principal)
CPT/HCPCS: 93225; 93226

== ENCOUNTER → 2023-12-08 | Outpatient (CLI) | payer MEDICARE, OTHER, SELFPAY ==
[2022-02-14 13:29] VITALS: BMI 28.4
--- NOTE | 2023-12-08 12:40 | ECHOD_ITS ---
Reason For Study: CAD Procedure This was a 2D Doppler, Color Flow transthoracic echocardiogram. Exam performed in department. Left Ventricle Normal LV size. Mild concentric left ventricular hypertrophy. Left ventricular systolic function is normal. The estimated ejection fraction is 60 %. Normal diastology for age. No regional wall motion abnormalities noted. Right Ventricle Normal RV size. Normal systolic function. Atria The left and right atria are normal. Mitral Valve The mitral valve is structurally normal. No prolapse or stenosis seen. There is Moderate focal posterior mitral annular calcification. Trivial mitral valve insufficiency. Tricuspid Valve Normal tricuspid valve. Mild (1+) tricuspid valve insufficiency. Right ventricular systolic pressure estimated to be 30 mmHg. Aortic Valve Trisinus/trileaflet aortic valve. Mild focal aortic valve thickening. Pulmonic Valve Normal pulmonic valve. Trivial pulmonic valve insufficiency. Great Vessels Normal aortic root. Pericardium/Pleural No pericardial effusion. Epicardial fat. MMode/2D Measurements & Calculations LVIDd: 3.6 cm IVSd: 1.3 cm Ao root diam: 3.2 cm LVIDs: 2.3 cm LVPWd: 1.2 cm RVDd: 3.6 cm FS: 37.5 % LAV(MOD-bp): 40.2 ml LVAd ap4: 23.5 cm2 LVAd ap2: 23.7 cm2 LAV(MOD-bp) Indexed: 21.1 ml/m2 LVLd ap4: 7.5 cm LVLd ap2: 7.6 cm LAV(MOD-sp2): 38.9 ml EDV(MOD-sp4): 61.4 ml EDV(MOD-sp2): 64.0 ml LAV(MOD-sp4): 39.5 ml EDV(sp4-el): 62.3 ml EDV(sp2-el): 62.8 ml LVAs ap4: 15.1 cm2 LVAs ap2: 13.9 cm2 LVLs ap4: 6.6 cm LVLs ap2: 6.7 cm ESV(MOD-sp4): 29.7 ml ESV(MOD-sp2): 26.8 ml ESV(sp4-el): 29.0 ml ESV(sp2-el): 24.4 ml EF(MOD-sp4): 51.6 % EF(MOD-sp2): 58.1 % EF(sp4-el): 53.4 % SV(MOD-sp4): 31.7 ml SV(MOD-sp2): 37.2 ml SV(sp4-el): 33.3 ml LA dimension(2D): 3.6 cm LA A4 area: 15.5 cm2 RA A4 area: 13.5 cm2 TAPSE: 1.3 cm Time Measurements MV dec time: 0.27 sec Doppler Measurements & Calculations MV E max lito: 76.3 cm/sec Lat Peak E' Lito: 6.9 cm/sec Med Peak E' Lito: 7.9 cm/sec MV A max lito: 110.7 cm/sec E/E' lat: 11.1 E/E' med: 9.6 MV E/A: 0.69 MV dec slope: 280.9 cm/sec2 Ao V2 max: 134.4 cm/sec LV V1 max: 106.7 cm/sec Ao max P.2 mmHg LV V1 max P.6 mmHg Ao V2 mean: 93.3 cm/sec LV V1 mean P.3 mmHg Ao mean P.0 mmHg LV V1 mean: 69.9 cm/sec Ao V2 VTI: 24.8 cm LV V1 VTI: 21.5 cm AV (velocity ratio): 0.87 PA V2 max: 84.8 cm/sec TR max lito: 258.1 cm/sec TR max P.6 mmHg ECHO/Echo Complete Interpretation Summary The estimated ejection fraction is 60 %. Mild concentric left ventricular hypertrophy. Mild (1+) tricuspid valve insufficiency. Mild focal aortic valve thickening. There is Moderate focal posterior mitral annular calcification. Ordering Physician: Amada Mahoney Referring Physician: George Vázquez M.D. Performed By: Angely Graves RDCS
== END | disposition home or self-care (01) ==
LOC: CVS 12:34
PROVIDERS: PCP Internal Medicine; Referring Provider Physician Assistant Medical; Visit Provider Physician Assistant Medical
DX: I25.10 Atherosclerotic heart disease of native coronary artery without angina pectoris (principal)
CPT/HCPCS: 93306

== ENCOUNTER → 2024-04-03 | Outpatient (CLI) | payer MEDICARE, OTHER, SELFPAY ==
[2022-02-14 13:29] VITALS: BMI 28.4
--- NOTE | 2024-04-03 12:50 | ART_ITS ---
Reason For Study: BLE Claudication Procedure A bilateral lower extremity continuous wave Doppler with analog waveform analysis,segmental pressures,and ankle brachial indexes without exercise. Left Segmental Pressures Left brachial= 108mmHg. Left posterior tibial artery = 126mmHg. Left dorsalis pedis artery = 121mmHg. Left digit = 118 mmHg. The left posterior tibial artery waveforms are triphasic. The left dorsalis pedis waveforms are triphasic. Right Segmental Pressures Right brachial= 109mmHg. Right posterior tibial artery = 133mmHg. Right dorsalis pedis artery = 125mmHg. Right digit = 114 mmHg. The right posterior tibial artery waveforms are triphasic. The right dorsalis pedis waveforms are triphasic. Indices The right ankle brachial index by the posterior tibial artery is 1.16. The right ankle brachial index by the dorsalis pedis is 1.11. The right digital-brachial index is 1.08. The left ankle brachial index by the posterior tibial artery is 1.22. The left ankle brachial index by the dorsalis pedis is 1.15. The left digital-brachial index is 1.05. VL/Lower Ext Art Exam w/o Exercis Interpretation Summary Right DESHAWN 1.16, normal. TBI and Doppler/PVR waveforms of the right leg normal a t rest. Left DESHAWN 1.22, normal. TBI and Doppler/PVR waveforms of the left leg normal at rest. Ordering Physician: Amada Mahoney Referring Physician: George Vázquez M.D. Performed By: Joel Mason RVT
== END | disposition home or self-care (01) ==
LOC: CVS 12:49
PROVIDERS: PCP Internal Medicine; Referring Provider Physician Assistant Medical; Visit Provider Physician Assistant Medical
DX: I73.9 Peripheral vascular disease, unspecified (principal)
CPT/HCPCS: 93923

== ENCOUNTER → 2024-06-04 | Outpatient (CLI) | payer MEDICARE, OTHER, SELFPAY ==
[2022-02-14 13:29] VITALS: BMI 28.4
--- NOTE | 2024-06-04 15:46 | CT_ITS ---
STUDY: LOW DOSE CT LUNG CANCER SCREENING REASON FOR EXAM: Male, 68 years old. smoker RADIATION DOSAGE (If Supplied By Facility): CTDIvol = ( 3.02 ) mGy, DLP = ( 108.35 ) mGycm TECHNIQUE: No contrast was administered. Low dose technique was utilized (average mAS-38 and kVp 120). 1.25 mm axial source images with a slice interval of 1.25-mm were reconstructed in lung windows. Coronal sagittal reformats obtained. COMPARISON: May 31, 2023, February 25, 2021 NODULES: 9 x 5 mm lateral left lower lung nodule remains unchanged from February 25, 2021. 4 mm anterior right lower lung nodule axial image 147 unchanged from February 25, 2021. Parenchyma: Mild upper lung emphysematous change. Densely calcified right lower lobe pleural thickening. Scattered bilateral basilar scarring. Endobronchial lesion: No endobronchial lesion. Diffuse peribronchial thickening. Aorta: Aortic atherosclerosis without ectasia. CORONARY ARTERIES: Severe multivessel calcified coronary atherosclerosis. Heart: No cardiomegaly. No pericardial effusion. Prior sternotomy bypass changes. Pulmonary artery: No main pulmonary arterial enlargement. Mediastinal nodes: No mediastinal or hilar adenopathy. Other chest and abdominal findings: Unremarkable thyroid. Unremarkable esophagus. No acute finding in the upper abdomen. CT/Low Dose CT Lung Screening IMPRESSION: Stable pulmonary nodules compared with February 25, 2021 consistent with a benign process. No evidence of new or enlarging pulmonary nodule. Upper lung emphysematous change. Increased diffuse peribronchial thickening as can be seen with acute on chronic bronchitis/bronchiolitis. Lung-RADS category 2 - Continue annual screening with LDCT in 12 months. IMPORTANT NOTES FOR USE: ACR Lung-RADS Version 1.1 Assessment Categories Release Date: 2018 Category: Coded 0-4 bases on nodule(s) with highest degree of suspicion. Negative screen is defined as categories 1 and 2; a positive screen is defined as categories 3 and 4. Category 3 and 4A nodules that are unchanged on interval CT should be coded as category 2, and individuals returned to screening in 12 months. Category 4X: Category 3 or 4 additional imaging findings that increase the suspicion of lung cancer, such as spiculation, GGN that doubles in size in 1 year, enlarged lymph notes, etc. Category Modifiers: S (significant finding unrelated to lung cancer) Electronically Signed: Lester Barrios MD at 9:00 EDT ,
== END | disposition home or self-care (01) ==
LOC: CT 15:46
PROVIDERS: PCP Internal Medicine; Referring Provider Nurse Practitioner Acute Care; Visit Provider Nurse Practitioner Acute Care
DX: F17.210 Nicotine dependence, cigarettes, uncomplicated (principal)
CPT/HCPCS: 71271

== ENCOUNTER 2024-09-17 15:52 | Emergency (ER) | payer MEDICARE, OTHER, SELFPAY ==
[2022-02-14 13:29] VITALS: BMI 28.4
[2024-09-17] VITALS (15 sets, daily range): BP systolic 123–156; BP diastolic 74–97; PULSE 74–87; RESP 12–25; TEMP 36.8–36.9; O2SAT 89–99; BMI 28.0
--- NOTE | 2024-09-17 16:00 | EKG12_ITS ---
Test Reason : Blood Pressure : */* mmHG Vent. Rate : 75 BPM Atrial Rate : 75 BPM P-R Int : 142 ms QRS Dur : 134 ms QT Int : 410 ms P-R-T Axes : 61 -69 34 degrees QTcB Int : 457 ms Normal sinus rhythm Left axis deviation Right bundle branch block Abnormal ECG Confirmed by BHUPINDER LOPEZ, KARON ([id number]), editor trade journal KEIRY URBANO ([id number]) on 09/18/2024 8:18:58 AM Referred By: Confirmed By: KARON ROE MD
--- NOTE | 2024-09-17 16:18 | ED.VIS.DYS ---
HPI History of Present Illness Chief Complaint: Shortness of Breath Informant: patient Onset/Context/Timing Onset: Weeks Context: gradual Timing: Intermittent Quality: Positive for Dyspnea on exertion Current Severity: Mild Maximum Severity: Mild Worsened by: Coughing Relieved by: Rest and Oxygen Associated Symptoms cough, green sputum and other; Negative for fever Chest Pain: Positive for None Narrative Narrative: 69-year-old male history of COPD on 2 L oxygen at home at night, hypertension, CABG about 30 years ago. States he had URI symptoms 2 to 3 weeks ago. He has had shortness of breath. He is currently on his third antibiotic Augmentin. He has been on prednisone for 5 days that he is currently finished with. States initially had a cough and greenish sputum is now clear. Denies any chest pain. Denies any fever. Denies any leg swelling or calf pain. No hemoptysis. She is really not wheezing at this time. Has had no chest pain. No history of DVT or PE. No recent travel, surgery or immobilization. PE Risk Factors: Negative for Cancer, OCP + Smoking + > 35, Prior DVT or PE, Recent immobilization, Recent surgery or Recent travel Prior similar symptoms: Yes Recent Illness/Hospitalization: No PFSH PFSH Medical History Essential hypertension Alcohol use History of steroid therapy Arthritis High cholesterol Smoker On home oxygen therapy COPD (chronic obstructive pulmonary disease) Shortness of breath on exertion History of pain when walking Hypertension History of echocardiogram History of stress test Cardiology follow-up encounter [facility] Nodule of lower lobe of left lung Perforated diverticulum of large intestine Presence of stent in coronary artery (~11/12/21) Easy bruising Excessive bleeding History of ulceration Gastric reflux History of diverticulitis Chronic bronchitis Nicotine dependence Osteoarthritis DDD (degenerative disc disease), lumbar Atherosclerosis of coronary artery of cabaz[place] heart without angina pectoris Atherosclerosis of coronary artery bypass graft without angina pectoris Hyperlipidemia Home Medications ?Medication ?Instructions ?Recorded ?Last Taken ?Type clopidogrel 75 mg tablet (Plavix) 75 mg PO DAILY anti platelet #90 10/04/21 11/26/22 Rx tabs omeprazole 40 mg capsule,delayed 40 mg PO DAILY 01/13/23 Unknown History release potassium chloride 10 mEq 10 meq PO DAILY PRN 06/19/23 Unknown History capsule,extended release ezetimibe 10 mg tablet (Zetia) 10 mg PO DAILY 03/18/24 Unknown History losartan 50 mg tablet 50 mg PO QDAY #90 tabs 03/18/24 Unknown Rx furosemide 40 mg tablet 40 mg PO DAILY #90 TABLETS 06/18/24 Unknown Rx albuterol sulfate 90 mcg/actuation 2 puff inhalation Q6H PRN PRN 07/30/24 Unknown Rx aerosol inhaler Shortness Of Breath #8.5 grams budesonide-formoterol HFA 160 2 puff inhalation BID #3 ea 07/30/24 Unknown Rx mcg-4.5 mcg/actuation aerosol inhaler (Symbicort) roflumilast 500 mcg tablet 500 mcg PO DAILY #30 tabs 07/30/24 Unknown Rx (Daliresp) tiotropium bromide 2.5 2 inh inhalation QDAY #1 ea 07/30/24 Unknown Rx mcg/actuation mist for inhalation (Spiriva Respimat) rosuvastatin 40 mg tablet 40 mg PO QHS #90 tabs 08/14/24 Unknown Rx isosorbide mononitrate 30 mg 30 mg PO DAILY #90 TABLETS 09/09/24 Unknown Rx tablet,extended release 24 hr ipratropium 0.5 mg-albuterol 3 mg 3 ml continuous nebulization Q6H 09/10/24 Unknown Rx (2.5 mg base)/3 mL nebulization PRN shortness of breath or soln wheezing #180 mL metoprolol succinate 50 mg 50 mg PO DAILY #180 tabs 09/10/24 Unknown Rx tablet,extended release 24 hr amoxicillin 875 mg-potassium 1 tab PO BID #20 tabs 09/12/24 Unknown Rx clavulanate 125 mg tablet prednisone 20 mg tablet 40 mg (2 x 20 mg) PO DAILY copd 10 09/17/24 Unknown Rx days #20 tabs Allergy/AdvReac Type Severity Reaction Status Date / Time levofloxacin (From Levaquin) AdvReac Severe tendonitis Verified 09/17/24 15:53 Family History Father CAD (coronary artery disease) Brother Hypertension Grandfather Pancreatic cancer Grandmother Heart disease Surgical History History of laparoscopic cholecystectomy S/P laparoscopic cholecystectomy Status post double vessel coronary artery bypass Presence of coronary angioplasty implant and graft (~09/29/21) Hx of left cataract extraction Hx of right cataract extraction History of cardiac catheterization History of colectomy S/p bilateral carpal tunnel release H/O coronary artery bypass surgery (10/14/96) History of left knee replacement History of appendectomy History of tonsillectomy History of partial colectomy Social History Smoking Status: Current every day smoker tobacco type: cigarettes alcohol intake: current alcohol intake frequency: 0-2 drinks per day substance use type: does not use caffeine: Yes Type: coffee Number of servings: 2 what type of physical activity do you participate in: none seatbelt use: always do you feel safe at home: Yes ROS ROS ED ROS Narrative Recent cough with greenish sputum not clear. Constitutional Constitutional ED: Denies chills or fever(s) Eyes Eyes: Denies blurry vision ENT ENT ED: Denies ear pain Cardiovascular Cardiovascular: Denies chest pain, orthopnea or palpitations Respiratory/Chest Respiratory/Chest: Reports cough, dyspnea, dyspnea on exertion and sputum; Denies orthopnea Gastrointestinal Gastrointestinal: Denies abdominal pain or constipation Genitourinary Genitourinary ED: Denies dysuria or hematuria Musculoskeletal Musculoskeletal: Denies arthralgias or back pain Integumentary Denies abscess Neurologic Neurologic: Denies headache(s) Psychiatric Psychiatric: Denies anxiety or depression Endocrine Endocrinology: Denies cold intolerance Hematologic/Lymphatic Hematologic/Lymphatic: Denies easy bleeding or easy bruising Allergic/Immunologic Allergic/Immunologic ED: Denies mouth swelling, tongue swelling or urticaria EXAM Physical Exam Narrative Exam Narrative: 69-year-old male sitting upright in bed. Initial pulse ox 89% on room air. On room air before any aerosol treatments he is now 94% not hypoxic. H EENT exam unremarkable. Mytrex membranes. No facial droop. Normal speech. Neck nontender no JVD. No lymphadenopathy. Lungs coarse breath sounds. Prolonged expiratory phase. No rales, rhonchi or wheezing. Equal symmetrical. Heart regular rhythm rate about 85 no murmur. Chest wall ribs nontender. Abdomen soft nontender. Back nontender. Moving all 4 extremities. Calves are nontender without edema or cords. He is awake alert. He is answering questions following commands. Const Vital Signs: 09/17/24 15:53 09/17/24 16:13 09/17/24 16:14 Temperature 98.4 F Temperature Source Oral Pulse Rate 87 Respiratory Rate 25 H Respiratory Effort Normal Non-Labored Respiratory Depth Normal Respiratory Pattern Normal Blood Pressure 156/97 H Blood Pressure Mean 116 Pulse Ox 89 94 Oxygen Delivery Method Room Air Room Air Room Air 09/17/24 16:37 09/17/24 16:44 09/17/24 16:45 Temperature Temperature Source Pulse Rate 77 74 76 Respiratory Rate 14 12 12 Respiratory Effort Respiratory Depth Respiratory Pattern Normal Blood Pressure 152/76 H Blood Pressure Mean 95 Pulse Ox Oxygen Delivery Method 09/17/24 17:00 09/17/24 17:08 09/17/24 17:15 Temperature Temperature Source Pulse Rate 82 78 Respiratory Rate 24 H 25 H Respiratory Effort Respiratory Depth Respiratory Pattern Blood Pressure 134/88 H 136/84 H Blood Pressure Mean 104 100 Pulse Ox Oxygen Delivery Method 09/17/24 17:30 09/17/24 17:45 09/17/24 17:53 Temperature Temperature Source Pulse Rate 82 85 86 Respiratory Rate 23 H 22 H 16 Respiratory Effort Respiratory Depth Respiratory Pattern Blood Pressure 147/84 H 141/82 H 140/82 H Blood Pressure Mean 102 99 101 Pulse Ox 98 Oxygen Delivery Method Room Air 09/17/24 18:00 09/17/24 19:00 Temperature Temperature Source Pulse Rate 84 86 Respiratory Rate 17 23 H Respiratory Effort Respiratory Depth Respiratory Pattern Blood Pressure 140/82 H 123/77 H Blood Pressure Mean 101 91 Pulse Ox Oxygen Delivery Method Positive well nourished and well developed; Negative for obese, cachectic, contractures or unkempt General Appearance ED: well developed and NAD; Negative for unkempt, cachectic, contractures or pallor Nutritional Appearance: Negative for cachectic or obese HEENT Reports moist mucous membranes atraumatic; Negative for trauma or tenderness Eyes PERRL and EOMs intact bilaterally General Eye ED: Negative for pale conjunctiva, scleral icterus or other Neck no lymphadenopathy, supple, no meningeal signs and no JVD General: Negative for tenderness Lymph Lymphatic: Negative for other Chest Wall Chest: Negative for other Resp normal respiratory effort and clear to auscultation bilaterally Resp Narrative: Prolonged expiratory phase. Tight consistent with bronchospasm. No wheezing. Auscultation: Negative for rales, rhonchi, wheezes or diminished lung sounds Cardio regular rate, regular rhythm, S1 normal heart sound, S2 normal heart sound and no murmurs Rate: Negative for bradycardia or tachycardic Rhythm: Negative for abnormal rhythm GI non-tender, non-distended and no masses Inspection: Negative for other Auscultation: normoactive bowel sounds Palpation: soft; Negative for rebound tenderness present Back/Spine no CVA tenderness and normal to inspection General Back: Negative for CVA tenderness or tenderness Extremity normal to inspection General Extremety ED: Negative for edema or tenderness General Extremity: Negative for edema Neuro oriented x3 and CN's II-XII intact bilaterally Ibeth Coma Scale: document GCS findings Sensorium / Orientation: alert, oriented to person, oriented to place and oriented to time; Negative for orientation impaired Speech: speech normal Motor Exam: strength 5/5 throughout Psych mental status grossly normal Appearance: Negative for unkempt Attitude: No agitated Mood & Affect: Negative for depressed, anxious or tearful Thought Process: normal thought process Skin no wounds and skin turgor normal General Skin Exam: Negative for jaundice or pallor Lesions: no lesions Rashes: no rashes Trauma: Negative for abrasion or laceration MDM MDM MDM Narrative Medical decision making narrative: 69-year-old male COPD history peers in exacerbation. Then on currently 3 antibiotics he is currently on his last 1 Augmentin. I suspect this is a COPD flare and he just needs a longer course of prednisone. He has no history of DVT or PE or risk factors. He will be treated with DuoNeb and albuterol aerosols IV Solu-Medrol and a cardiac workup. Repeat exam patient is doing well at 7:35 PM. Breathing is improved after his aerosol treatments and his IV Solu-Medrol. His vital signs are stable he is not hypoxic. He and I went over his test results. He is comfortable being discharged home. He has oxygen at home as needed. He uses at night. He has both an inhaler and a nebulizer. He will continue to use those. To be placed on prednisone 40 mg a day for 10 days. Follow-up with his pulmonology PA for repeat evaluation. History & Record Review Discussion w/independent historian: Patient Additional record(s) reviewed:: Prior inpatient record, Prior outpatient record and Prior ED visit Lab Data Attestation: I reviewed the patient's lab results. Lab results narrative: CBC shows a white count is 6 H&H is 16 and 46. Platelets 166. Electrolytes gap is 6. BUN is 16 creatinine 1.52. Glucose 117. Troponin 9. Chest x-ray chronic changes. Prior sternotomy. Labs: Laboratory Results - last 24 hr 09/17/24 09/17/24 09/17/24 16:10 16:10 17:40 WBC Cancelled 6.5 Corrected WBC Cancelled RBC Cancelled 4.91 Hgb Cancelled 16.0 Hct Cancelled 46.7 MCV Cancelled 95.1 H MCH Cancelled 32.6 H MCHC Cancelled 34.3 RDW Std Deviation Cancelled 46.5 H RDW Coeff of Lisa Cancelled 13.2 Plt Count Cancelled 166 MPV Cancelled 9.4 Immature Gran % (Auto) Cancelled 0.200 Neut % (Auto) Cancelled 68.7 Lymph % (Auto) Cancelled 21.4 Dickson % (Auto) Cancelled 7.2 Eos % (Auto) Cancelled 1.7 Baso % (Auto) Cancelled 0.8 Absolute Neuts (auto) Cancelled 4.5 Absolute Lymphs (auto) Cancelled 1.40 Total Counted Cancelled Neutrophils % (Manual) Cancelled Band Neutrophils % Cancelled Lymphocytes % (Manual) Cancelled Monocytes % (Manual) Cancelled Eosinophils % (Manual) Cancelled Basophils % (Manual) Cancelled Metamyelocytes % Cancelled Myelocytes % Cancelled Promyelocytes % Cancelled Blast Cells % Cancelled Plasma Cell % (Manual) Cancelled Other Cells % Cancelled Nucleated RBC % Cancelled 0 Nucleated RBCs/100 WBC Cancelled Differential Comment Cancelled Diff Path Review Cancelled Hypersegmented Neuts Cancelled Atypical Lymphocytes Cancelled Reactive Lymphocytes Cancelled Smudge Cells Cancelled Toxic Granulation Cancelled Toxic Vacuolation Cancelled Dohle Bodies Cancelled Petra Rods Cancelled Platelet Estimate Cancelled Plt Morphology Comment Cancelled RBC Morphology Cancelled Cancelled Polychromasia Cancelled Hypochromasia Cancelled Basophilic Stippling Cancelled Anisocytosis Cancelled Microcytosis Cancelled Macrocytosis Cancelled Spherocytes Cancelled Sickle Cells Cancelled Target Cells Cancelled Tear Drop Cells Cancelled Ovalocytes Cancelled Stomatocytes Cancelled [place] Bodies Cancelled [place] Cells Cancelled Bite Cells Cancelled Crenated Cell Cancelled Acanthocytes (Spur) Cancelled Rouleaux Cancelled Schistocytes Cancelled Sodium 137 Potassium 3.7 Chloride 103 Carbon Dioxide 28.0 Anion Gap 6 BUN 16 Creatinine 1.52 H Estim Creat Clear Calc 46.14 Est GFR (MDRD) Af Amer 59 L Est GFR (MDRD) Non-Af 48 L BUN/Creatinine Ratio 10.5 Glucose 117 H Calcium 9.9 Troponin I High Sens 9 Radiography Chest X-Ray - ED: 2 View, Read by ED Physician, Read by Radiologist, Normal, Heart, Lungs, Mediastinum, Bony Structures, No Acute Disease and Chronic Changes Diagnostic Testing: Clinical Impression(s) from Imaging Studies Chest X-Ray 09/17/24 17:00 IMPRESSION: COPD and ASHD.. Probable pleural thickening though cannot definitively exclude tiny right effusion. Otherwise no acute cardiopulmonary pathology Electronically Signed: Prateek Garcia MD at 17:13 EST , Chest x-ray, 2 views, AP and lateral, interpreted both by myself and the radiologist shows chronic changes consistent with COPD. Chronic scarring. Possible pleural thickening versus very small effusion. Prior sternotomy. No acute process. No pneumonia. Rhythm Strip Rhythm Strip: Sinus Rhythm Rate: 75 Ectopy: None EKG Initial EKG: Attestation: I personally reviewed and interpreted this EKG as follows: Interpretation: Sinus Rhythm and No Acute Injury Pattern Comments: Normal sinus rhythm rate of 75 no acute signs of ID or ischemia. Right bundle branch block. Discharge Plan Triage Chief Complaint: Shortness of Breath ED Provider: Francisco Murillo Dx/Rx/DC Orders Clinical Impression: Acute exacerbation of chronic obstructive pulmonary disease (COPD), Hx of coronary artery bypass graft, History of hypertension Instructions: ED COPD Flare Prescriptions: New prednisone 20 mg tablet 40 mg PO DAILY 10 Days Qty: 20 0RF No Action clopidogrel [Plavix] 75 mg tablet 75 mg PO DAILY Qty: 90 4RF omeprazole 40 mg capsule,delayed release(DR/EC) 40 mg PO DAILY potassium chloride 10 mEq capsule, extended release 10 meq PO DAILY PRN ezetimibe [Zetia] 10 mg tablet 10 mg PO DAILY losartan 50 mg tablet 50 mg PO QDAY Qty: 90 3RF roflumilast [Daliresp] 500 mcg tablet 500 mcg PO DAILY Qty: 30 11RF budesonide-formoterol [Symbicort] 160-4.5 mcg/actuation HFA aerosol inhaler 2 puff inhalation BID Qty: 3 3RF Rx Instructions: administer with spacer, rinse mouth after each use albuterol sulfate 90 mcg/actuation HFA aerosol inhaler 2 puff INHALATION Q6H PRN PRN (Reason: Shortness Of Breath) Qty: 8.5 11RF Spiriva Respimat 2.5 mcg/actuation mist 2 inh inhalation QDAY Qty: 1 11RF Rx Instructions: administer at approximately the same time(s) each day furosemide 40 mg tablet 40 mg PO DAILY Qty: 90 3RF rosuvastatin 40 mg tablet 40 mg PO QHS Qty: 90 3RF isosorbide mononitrate 30 mg tablet extended release 24 hr 30 mg PO DAILY Qty: 90 3RF ipratropium-albuterol 0.5 mg-3 mg(2.5 mg base)/3 mL solution for nebulization 3 ml continuous nebulization Q6H PRN (Reason: shortness of breath or wheezing) Qty: 180 11RF metoprolol succinate 50 mg tablet extended release 24 hr 50 mg PO DAILY Qty: 180 3RF amoxicillin-pot clavulanate 875-125 mg tablet 1 tab PO BID Qty: 20 0RF Primary Care Provider: George Vázquez Referrals: Tevin Nelson DO [Med Staff - Active Staff] - 3-5 Days George Vázquez MD [Primary Care Provider] - Activity Restrictions/Additional Instructions: Follow-up with your pulmonology PA to ensure you are improving. Plenty of fluids and rest. Prednisone 40 mg a day for the next 10 days starting tomorrow. You were given a dose of IV steroids here. Use your inhaler and nebulizers at home. Use your oxygen at night and whenever you feel like you needed. Follow-up to ensure you are improving return to emergency department if you are feeling worse. Your labs and chest x-ray look good tonight. You can stop the current antibiotic. Print Language: [place] Disposition Disposition: Home, Self Care
[2024-09-17] MEDS: MethylPREDNISolone 125 MG/2 ML Vial IV (16:31)
[2024-09-17] MEDS: Albuterol 2.5 MG/3 ML VIAL.NEB. INHALATION ×2 (16:34)
[2024-09-17] MEDS: Ipratropium/Albuterol Sulfate 3 ML AMPUL.NEB INHALATION (16:34)
--- NOTE | 2024-09-17 17:00 | RAD_ITS ---
STUDY: X-RAY CHEST REASON FOR EXAM: Male, 69 years old. dyspnea TECHNIQUE: PA and lateral COMPARISON: March 17, 2023 FINDINGS: Lungs are hyperinflated but clear of infiltrate. There is blunting of right costophrenic angle possibly representing tiny effusion versus pleural thickening. Normal size heart. Normal mediastinum and fabricio. Normal visualized pulmonary arteries. Normal visualized aortic arch and descending thoracic aorta. Postop change status post median sternotomy and CABG Dorsal spine demonstrates degenerative change. Normal visualized ribs, clavicles, and shoulders. There is no demonstrated abnormality of the visualized soft tissue structures of the upper abdomen. RAD/Chest PA and Lateral IMPRESSION: COPD and ASHD.. Probable pleural thickening though cannot definitively exclude tiny right effusion. Otherwise no acute cardiopulmonary pathology Electronically Signed: Prateek Garcia MD at 17:13 EST ,
[2024-09-17 17:07] LABS: Anion Gap 6 (5-15); BUN 16 mg/dL (7-18); BUN/Creat Ratio 10.5 RATIO (10-20); Calcium,Total 9.9 mg/dL (8.5-10.1); Chloride 103 mmol/L (98-107); Creatinine, Serum 1.52 mg/dL (0.70-1.30); EST Glomerular Filtration Rate 48 mL/min (>60); Est Glom Filt Rate - Afr Amer 59 mL/min (>60); Estimated Creatinine Clearance 46.14 ml/min; Glucose 117 mg/dL (74-106); Potassium 3.7 mmol/L (3.5-5.1); Sodium Level 137 mmol/L (136-145); Troponin-I HS 9 pg/mL (3.0-78.0)
[2024-09-17 18:11] LABS: Absolute Neutrophil Count 4.5 X10^3/uL (2.0-7.7); Basophil# 0.05 X10^3/uL; Basophil% 0.8 % (0-1); Eosinophil# 0.11 X10^3/uL; Eosinophils% 1.7 % (0-5); Hematocrit 46.7 % (40-54); Lymphocyte % 21.4 % (19-41); Mean Corp Hgb Conc 34.3 g/dL (32-36); Mean Corpuscular Hgb 32.6 pg (27.0-32.0); Mean Corpuscular Volume 95.1 fL (80-94); Mean Platelet Vol. 9.4 fl (6.2-12.0); Monocyte# 0.47 X10^3/uL; Monocyte% 7.2 % (0-10); NRBC Flagged by Analyzer 0 % (0-5); Neutrophil # 4.49 X10^3/uL (2.7-7.7); Neutrophil % 68.7 % (47-70); Platelet Count 166 K/mm3 (150-450); RBC Distribution Width CV 13.2 % (11.6-14.6); RBC Distribution Width SD 46.5 fl (35.1-43.9); Red Blood Count 4.91 M/mm3 (4.6-6.2); White Blood Count 6.5 K/mm3 (4.4-11.0)
== END 2024-09-17 19:51 | disposition home or self-care (01) ==
PROVIDERS: Emergency Provider Emergency Medicine; PCP Internal Medicine; Visit Provider Emergency Medicine
DX: J44.1 Chronic obstructive pulmonary disease with (acute) exacerbation (principal); I25.10 Atherosclerotic heart disease of native coronary artery without angina pectoris; I25.810 Atherosclerosis of coronary artery bypass graft(s) without angina pectoris; I10 Essential (primary) hypertension; E78.00 Pure hypercholesterolemia, unspecified; Z79.02 Long term (current) use of antithrombotics/antiplatelets; Z79.51 Long term (current) use of inhaled steroids; Z79.899 Other long term (current) drug therapy; Z95.1 Presence of aortocoronary bypass graft
CPT/HCPCS: 71046; 80048; 84484; 85025; 93005; 94640; 96374; 99283; A4216

== ENCOUNTER 2024-10-27 11:33 | Observation (INO) | payer MEDICARE, OTHER, SELFPAY ==
[2022-02-14 13:29] VITALS: BMI 28.4
[2024-10-27] VITALS (9 sets, daily range): BP systolic 85–121; BP diastolic 59–78; PULSE 91–108; RESP 18–20; TEMP 36.1–37.2; O2SAT 93–96; BMI 28.7; BMI 27.9
--- NOTE | 2024-10-27 11:47 | EKG12_ITS ---
Test Reason : SYNC Blood Pressure : */* mmHG Vent. Rate : 99 BPM Atrial Rate : 99 BPM P-R Int : 124 ms QRS Dur : 144 ms QT Int : 394 ms P-R-T Axes : 63 -73 67 degrees QTcB Int : 505 ms Normal sinus rhythm Left axis deviation Right bundle branch block Abnormal ECG Confirmed by BHUPINDER LOPEZ, KARON ([id number]), industrial editor REBEL PRICE ([id number]) on 10/28/2024 10:53:45 AM Referred By: LÁZARO Confirmed By: KARON ROE MD
--- NOTE | 2024-10-27 11:47 | CT_ITS ---
EXAM: CT HEAD WITHOUT INTRAVENOUS CONTRAST CLINICAL INDICATION: head injury TECHNIQUE: Multiple axial images were obtained of the head without intravenous contrast. This CT exam was performed using one or more of the following dose reduction techniques: automated exposure control, adjustment of the mA and/or kV according to patient size, and/or use of iterative reconstruction technique. RADIATION DOSE: CTDIvol = 44.99 mGy, DLP = 796.11 mGy-cm COMPARISON: CT head without contrast and CTA head with contrast 08/07/2023. FINDINGS: BRAIN AND EXTRA-AXIAL SPACES: Unremarkable. No intra- or extra-axial hemorrhage. No evidence of acute infarct. No intracranial mass or mass effect. There is preservation of the naylor/white matter interface. Posterior fossa structures are unremarkable. Ventricles are appropriate for age. No hydrocephalus. Basal cisterns are patent. BONES/JOINTS: Unremarkable. No discrete lytic or blastic abnormalities. SINUSES: Unremarkable as visualized. Clear. MASTOID AIR CELLS: Unremarkable. Clear. ORBITS: Visualized globes, extraocular muscles, optic nerves and retrobulbar fat appear unremarkable. CT/Brain/Head without Contrast IMPRESSION: Negative head/brain CT without intravenous contrast and unchanged when compared to 08/07/2023. Electronically Signed: Pablo Gross MD at 12:54 EST ,
--- NOTE | 2024-10-27 11:52 | EDS_ITS ---
HPI <RENEE Beckett - Last Filed: 10/27/24 14:37> History of Present Illness Chief Complaint: Syncope Narrative Narrative: 69-year-old male with PMH of HTN, HLD, COPD, CAD with stents presents after a syncopal episode. He was sitting at his kitchen table and the next thing he knew he woke up on the floor and had a laceration on his forehead. He was able to get up and call his son. He complains of a mild headache but no other injuries. He is on Plavix. He states over the last month his heart rate has been over 100. He was told by his primary care doctor to double his metoprolol?he typically takes metoprolol 50 mg in the morning and states he went up to 75 mg/day because he did not have enough pills to double it but this has not really helped. With today's episode he denies any preceding symptoms such as chest pain, shortness of breath, nausea or vomiting. PFSH <RENEE Beckett - Last Filed: 10/27/24 14:37> [facility] Medical History Essential hypertension Alcohol use History of steroid therapy Arthritis High cholesterol Smoker On home oxygen therapy COPD (chronic obstructive pulmonary disease) Shortness of breath on exertion History of pain when walking Hypertension History of echocardiogram History of stress test Cardiology follow-up encounter Gallstone Nodule of lower lobe of left lung Perforated diverticulum of large intestine Presence of stent in coronary artery (~11/12/21) Easy bruising Excessive bleeding History of ulceration Gastric reflux History of diverticulitis Chronic bronchitis Nicotine dependence Osteoarthritis DDD (degenerative disc disease), lumbar Atherosclerosis of coronary artery of enterprise heart without angina pectoris Atherosclerosis of coronary artery bypass graft without angina pectoris Hyperlipidemia Home Medications ?Medication ?Instructions ?Recorded ?Last Taken ?Type clopidogrel 75 mg tablet (Plavix) 75 mg PO DAILY anti platelet #90 10/04/21 11/26/22 Rx tabs omeprazole 40 mg capsule,delayed 40 mg PO DAILY 01/13/23 Unknown History release potassium chloride 10 mEq 10 meq PO DAILY PRN 06/19/23 Unknown History capsule,extended release ezetimibe 10 mg tablet (Zetia) 10 mg PO DAILY 03/18/24 Unknown History losartan 50 mg tablet 50 mg PO QDAY #90 tabs 03/18/24 Unknown Rx furosemide 40 mg tablet 40 mg PO DAILY #90 TABLETS 06/18/24 Unknown Rx albuterol sulfate 90 mcg/actuation 2 puff inhalation Q6H PRN PRN 07/30/24 Unknown Rx aerosol inhaler Shortness Of Breath #8.5 grams budesonide-formoterol HFA 160 2 puff inhalation BID #3 ea 07/30/24 Unknown Rx mcg-4.5 mcg/actuation aerosol inhaler (Symbicort) roflumilast 500 mcg tablet 500 mcg PO DAILY #30 tabs 07/30/24 Unknown Rx (Daliresp) tiotropium bromide 2.5 2 inh inhalation QDAY #1 ea 07/30/24 Unknown Rx mcg/actuation mist for inhalation (Spiriva Respimat) rosuvastatin 40 mg tablet 40 mg PO QHS #90 tabs 08/14/24 Unknown Rx isosorbide mononitrate 30 mg 30 mg PO DAILY #90 TABLETS 09/09/24 Unknown Rx tablet,extended release 24 hr ipratropium 0.5 mg-albuterol 3 mg 3 ml continuous nebulization Q6H 09/10/24 Unknown Rx (2.5 mg base)/3 mL nebulization PRN shortness of breath or soln wheezing #180 mL metoprolol succinate 50 mg 50 mg PO DAILY #180 tabs 09/10/24 Unknown Rx tablet,extended release 24 hr amoxicillin 875 mg-potassium 1 tab PO BID #20 tabs 09/12/24 Unknown Rx clavulanate 125 mg tablet prednisone 20 mg tablet 40 mg (2 x 20 mg) PO DAILY copd 10 09/17/24 Unknown Rx days #20 tabs Allergy/AdvReac Type Severity Reaction Status Date / Time levofloxacin (From Levaquin) AdvReac Severe tendonitis Verified 10/27/24 11:35 Family History Father CAD (coronary artery disease) Brother Hypertension Grandfather Pancreatic cancer Grandmother Heart disease Surgical History History of laparoscopic cholecystectomy S/P laparoscopic cholecystectomy Status post double vessel coronary artery bypass Presence of coronary angioplasty implant and graft (~09/29/21) Hx of left cataract extraction Hx of right cataract extraction History of cardiac catheterization History of colectomy S/p bilateral carpal tunnel release H/O coronary artery bypass surgery (10/14/96) History of left knee replacement History of appendectomy History of tonsillectomy History of partial colectomy Social History Smoking Status: Current every day smoker tobacco type: cigarettes alcohol intake: current alcohol intake frequency: 0-2 drinks per day substance use type: does not use caffeine: Yes Type: coffee Number of servings: 2 what type of physical activity do you participate in: none seatbelt use: always do you feel safe at home: Yes ROS <RENEE Beckett - Last Filed: 10/27/24 14:37> ROS ED ROS Narrative Constitutional: Negative for fever, chills, malaise. CVS: Positive for syncope. Negative for palpitations, chest pain. Respiratory: Negative for shortness of breath, cough. GI: Negative for abdominal pain, nausea, vomiting. EXAM <RENEE Beckett Last Filed: 10/27/24 14:37> Physical Exam Narrative Exam Narrative: CONST: Patient sitting in no acute distress. EYES: Normal inspection. ENT: 1 cm mid frontal scalp laceration abrasion on the bridge of the nose, no raccoon eyes or akhtar sign, no hemotympanum, no nasal septal hematoma, no CSF otorrhea or rhinorrhea. NECK: Normal inspection. No midline spinal tenderness, no step off or crepitus. RESP: No respiratory distress, CTAB. CVS: Regular rate and rhythm, no murmur, no gallop. ABD: Soft and nontender, no guarding or rebound, nondistended. SKIN: Color normal, no rash, warm, dry, intact. EXTREMITIES: Normal appearance, no pedal edema. NEURO: Alert and answering questions appropriately. PSYCH: Normal affect. Const Vital Signs: 10/27/24 11:33 10/27/24 13:33 Temperature 96.9 F L Temperature Source Temporal Pulse Rate 108 H 91 Respiratory Rate 20 H 18 Blood Pressure 121/78 H 113/75 Blood Pressure Mean 92 87 Pulse Ox 96 94 Oxygen Delivery Method Room Air Room Air <Dr. Praveen Ruiz DO - Last Filed: 10/27/24 14:32> Physical Exam Const Vital Signs: 10/27/24 11:33 10/27/24 13:33 Temperature 96.9 F L Temperature Source Temporal Pulse Rate 108 H 91 Respiratory Rate 20 H 18 Blood Pressure 121/78 H 113/75 Blood Pressure Mean 92 87 Pulse Ox 96 94 Oxygen Delivery Method Room Air Room Air [facility] <RENEE Beckett - Last Filed: 10/27/24 14:37> [facility] Narrative Medical decision making narrative: History gathered from: Patient, family Differential includes cardiac etiology, orthostatic hypotension, pulmonary embolism, ACS among others. Patient had a syncopal episode with no prodrome. He has a laceration on his forehead from striking his head on the ground. He is now awake and alert in no distress. GCS 15. He is in sinus tachycardia around 110 on the monitor with otherwise stable vital signs. He states his heart rate has been elevated over the last month. He has no signs of basilar skull fracture and is neurologically intact. Overall exam unremarkable other than tachycardia. EKG is normal sinus rhythm with RBBB. Troponin is 14. He has mild leukocytosis and normal hemoglobin at 15.1. Sodium was 130, BUN 29, creatinine 2.13 (elevated from baseline around 1.5). He was given IV fluids. D-dimer is negative with age adjustment. CT brain and cervical spine show no acute findings. Patient requested his forehead laceration be closed with Steri-Strips and states his tetanus is up-to-date. I discussed it is concerning that he had a syncopal episode without prodrome and has LILLIE and recommended admission. Case was discussed with the hospitalist. Consults: Hospitalist for admission I have personally performed a face to face assessment of the patient and have reviewed the HARLAN Note. I performed a substantive portion of the visit including all aspects of the following. My barber findings include: History is 69-year-old male sitting in his kitchen table today when he had his syncopal episode. Fell down and struck his head. He did not have any prodrome. He notes that he was sick about a month ago felt may be a pneumonia so they gave him some antibiotics. Since that time though he has noticed that his heart rates been higher than normal. His doctor advised him to increase his metoprolol. Not having enough to double it he increased it to 75 mg twice a day. States she did have a syncopal episode a couple years ago none since. Exam is patient with forehead laceration is well-approximated with no active bleeding associated with nasal abrasion contusion no septal hematoma GCS 15 alert and orientated. Heart is slightly tachycardic Medical Decison Making patient said no acute events on the monitor. His EKG is sinus tach with a right bundle. Troponin is negative. CT of the brain is ne gative. My independent interpretation the chest x-ray is no acute process. D- dimer was obtained which age corrects this is in the normal range. Creatinine is elevated at baseline at 2.1. BUN 20 Sodium slightly low at 130. Plan of care because this was syncope without prodrome with a cardiac history will be admission for observation. Lab Data Attestation: I reviewed the patient's lab results. Labs: Laboratory Results - last 24 hr 10/27/24 10/27/24 10/27/24 11:56 12:27 12:45 WBC 11.5 H RBC 4.66 Hgb 15.1 Hct 43.4 MCV 93.1 MCH 32.4 H MCHC 34.8 RDW Std Deviation 45.6 H RDW Coeff of Lisa 13.4 Plt Count 179 MPV 9.5 Immature Gran % (Auto) 0.700 Neut % (Auto) 79.5 H Lymph % (Auto) 12.9 L [place] % (Auto) 6.3 Eos % (Auto) 0.3 Baso % (Auto) 0.3 Absolute Neuts (auto) 9.2 H Absolute Lymphs (auto) 1.48 Nucleated RBC % 0 D-Dimer Quant (PE/DVT) Cancelled 0.56 H* Sodium 130 L Potassium 3.8 Chloride 100 Carbon Dioxide 25.0 Anion Gap 6 BUN 29 H Creatinine 2.13 H Estim Creat Clear Calc 33.31 Est GFR (MDRD) Af Amer 40 L Est GFR (MDRD) Non-Af 33 L BUN/Creatinine Ratio 13.6 Glucose 120 H Calcium 9.3 Troponin I High Sens 14 Urine Color Yellow Urine Clarity Clear Urine pH 7.0 Ur Specific [place] 1.005 Urine Protein 30 H Urine Glucose (UA) Normal Urine Ketones Negative Urine Occult Blood 50 H Urine Nitrite Negative Urine Bilirubin Negative Urine Urobilinogen Normal Ur Leukocyte Esterase Negative Urine RBC 0-5 SEEN Urine WBC 0 SEEN Ur Squamous Epith Cells 0-5 SEEN Urine Bacteria 1+ Urine Mucus 0 SEEN Radiography Diagnostic Testing: Clinical Impression(s) from Imaging Studies Brain CT 10/27/24 11:47 IMPRESSION: Negative head/brain CT without intravenous contrast and unchanged when compared to 08/07/2023. Electronically Signed: Pablo Gross MD at 12:54 EST , Cervical Spine CT 10/27/24 11:54 IMPRESSION: No acute or remote fractures of the cervical spine and no traumatic subluxation of the cervical spine and craniocervical junction and cervicothoracic junction.. Electronically Signed: Pablo Gross MD at 13:00 EST , EKG Initial EKG: Attestation: I personally reviewed and interpreted this EKG as follows: Interpretation: Sinus Rhythm, No Acute Injury Pattern and RBBB Comments: Normal sinus rhythm at 99 bpm LAD, RBBB Prior EKG tracings: available for review Prior: Unchanged <Dr. Praveen Ruiz, DO - Last Filed: 10/27/24 14:32> [facility] Narrative Medical decision making narrative: Patient had a syncopal episode with no prodrome. He has a laceration on his forehead from striking his head on the ground. He is now awake and alert in no distress. GCS 15. He is in sinus tachycardia around 110 on the monitor with otherwise stable vital signs. He states his heart rate has been elevated over the last month. He has no signs of basilar skull fracture and is neurologically intact. Overall exam unremarkable other than tachycardia. EKG is normal sinus rhythm with RBBB. Troponin is 14. He has mild leukocytosis and normal hemoglobin at 15.1. Sodium was 130, BUN 29, creatinine 2.13 (elevated from baseline around 1.5). He was given IV fluids. D-dimer is negative with age adjustment. CT brain and cervical spine show no acute findings. Patient requested his forehead laceration be closed with Steri-Strips and states his tetanus is up-to-date. I discussed it is concerning that he had a syncopal episode without prodrome and has LILLIE and recommended admission. Case was discussed with the hospitalist. I have personally performed a face to face assessment of the patient and have reviewed the HARLAN Note. I performed a substantive portion of the visit including all aspects of the following. My barber findings include: History is 69-year-old male sitting in his kitchen table today when he had his syncopal episode. Fell down and struck his head. He did not have any prodrome. He notes that he was sick about a month ago felt may be a pneumonia so they gave him some antibiotics. Since that time though he has noticed that his heart rates been higher than normal. His doctor advised him to increase his metoprolol. Not having enough to double it he increased it to 75 mg twice a day. States she did have a syncopal episode a couple years ago none since. Exam is patient with forehead laceration is well-approximated with no active bleeding associated with nasal abrasion contusion no septal hematoma GCS 15 alert and orientated. Heart is slightly tachycardic Medical Decison Making patient said no acute events on the monitor. His EKG is sinus tach with a right bundle. Troponin is negative. CT of the brain is negative. My independent interpretation the chest x-ray is no acute process. D-dimer was obtained which age corrects this is in the normal range. Creatinine is elevated at baseline at 2.1. BUN 20 Sodium slightly low at 130. Plan of care because this was syncope without prodrome with a cardiac history will be admission for observation. History & Record Review Discussion w/independent historian: Patient and Friend Lab Data Labs: Laboratory Results - last 24 hr 10/27/24 10/27/24 10/27/24 11:56 12:27 12:45 WBC 11.5 H RBC 4.66 Hgb 15.1 Hct 43.4 MCV 93.1 MCH 32.4 H MCHC 34.8 RDW Std Deviation 45.6 H RDW Coeff of Lisa 13.4 Plt Count 179 MPV 9.5 Immature Gran % (Auto) 0.700 Neut % (Auto) 79.5 H Lymph % (Auto) 12.9 L [place] % (Auto) 6.3 Eos % (Auto) 0.3 Baso % (Auto) 0.3 Absolute Neuts (auto) 9.2 H Absolute Lymphs (auto) 1.48 Nucleated RBC % 0 D-Dimer Quant (PE/DVT) Cancelled 0.56 H* Sodium 130 L Potassium 3.8 Chloride 100 Carbon Dioxide 25.0 Anion Gap 6 BUN 29 H Creatinine 2.13 H Estim Creat Clear Calc 33.31 Est GFR (MDRD) Af Amer 40 L Est GFR (MDRD) Non-Af 33 L BUN/Creatinine Ratio 13.6 Glucose 120 H Calcium 9.3 Troponin I High Sens 14 Urine Color Yellow Urine Clarity Clear Urine pH 7.0 Ur Specific [place] 1.005 Urine Protein 30 H Urine Glucose (UA) Normal Urine Ketones Negative Urine Occult Blood 50 H Urine Nitrite Negative Urine Bilirubin Negative Urine Urobilinogen Normal Ur Leukocyte Esterase Negative Urine RBC 0-5 SEEN Urine WBC 0 SEEN Ur Squamous Epith Cells 0-5 SEEN Urine Bacteria 1+ Urine Mucus 0 SEEN Radiography Diagnostic Testing: Clinical Impression(s) from Imaging Studies Brain CT 10/27/24 11:47 IMPRESSION: Negative head/brain CT without intravenous contrast and unchanged when compared to 08/07/2023. Electronically Signed: Pablo Gross MD at 12:54 EST , Cervical Spine CT 10/27/24 11:54 IMPRESSION: No acute or remote fractures of the cervical spine and no traumatic subluxation of the cervical spine and craniocervical junction and cervicothoracic junction.. Electronically Signed: Pablo Gross MD at 13:00 EST , Management Discussion w/another healthcare provider: Hospitalist (Dr Andrews) Discharge Plan Dx/Rx/DC Orders Clinical Impression: Syncope, Sinus tachycardia, Forehead laceration, Acute kidney insufficiency, Atherosclerosis of coronary artery of enterprise heart without angina pectoris Disposition Disposition: [facility]
--- NOTE | 2024-10-27 11:54 | CT_ITS ---
EXAM: CT CERVICAL SPINE WITHOUT INTRAVENOUS CONTRAST CLINICAL INDICATION: head injury TECHNIQUE: Helically acquired images were obtained of the cervical spine without intravenous contrast. 2D reformatted images were reviewed. This CT exam was performed using one or more of the following dose reduction techniques: automated exposure control, adjustment of the mA and/or kV according to patient size, and/or use of iterative reconstruction technique. RADIATION DOSE: CTDIvol = 27.06 mGy, DLP = 528.77 mGy-cm COMPARISON: No relevant prior studies available. FINDINGS: VERTEBRAE: Moderate left C3-C4 left C4-C5 degenerative facet arthropathy. Mild to moderate right C2-C3 and right C4-C5 degenerative facet arthropathy. No significant arthropathy of the remaining cervical facet joints. No acute or remote fractures of the vertebral bodies and posterior osseous elements of the cervical spine. No traumatic subluxation or malalignment of cervical spine, craniocervical junction and cervicothoracic junction. Normal central canal and cervical intervertebral neuroforamina. No discrete lytic or blastic abnormality. DISCS/SPINAL CANAL/NEURAL FORAMINA: Unremarkable. Normal cervical disc space heights. Mild ventral extradural defect due to posterior bulging annulus at C5-C6 and C6-C7 disc space level. SOFT TISSUES: Unremarkable. No prevertebral soft tissue swelling. LYMPH NODES: Unremarkable. No cervical adenopathy. LUNG APICES: Centrilobular cysts and paraseptal cysts in both lung apices. CT/Spine Cervical without Contras IMPRESSION: No acute or remote fractures of the cervical spine and no traumatic subluxation of the cervical spine and craniocervical junction and cervicothoracic junction.. Electronically Signed: Pablo Gross MD at 13:00 EST ,
[2024-10-27 12:31] LABS: Absolute Lymphocyte Count 1.48 X10^3/uL (0.83-4.51); Absolute Neutrophil Count 9.2 X10^3/uL (2.0-7.7); Basophil# 0.03 X10^3/uL; Basophil% 0.3 % (0-1); Eosinophil# 0.04 X10^3/uL; Eosinophils% 0.3 % (0-5); Hematocrit 43.4 % (40-54); Hemoglobin 15.1 g/dL (13.0-16.5); Lymphocyte # 1.48 X10^3/ul (0.83-4.51); Lymphocyte % 12.9 % (19-41); Mean Corp Hgb Conc 34.8 g/dL (32-36); Mean Corpuscular Hgb 32.4 pg (27.0-32.0); Mean Corpuscular Volume 93.1 fL (80-94); Mean Platelet Vol. 9.5 fl (6.2-12.0); Monocyte# 0.72 X10^3/uL; Monocyte% 6.3 % (0-10); NRBC Flagged by Analyzer 0 % (0-5); Neutrophil # 9.16 X10^3/uL (2.7-7.7); Neutrophil % 79.5 % (47-70); Platelet Count 179 K/mm3 (150-450); RBC Distribution Width CV 13.4 % (11.6-14.6); RBC Distribution Width SD 45.6 fl (35.1-43.9); Red Blood Count 4.66 M/mm3 (4.6-6.2); White Blood Count 11.5 K/mm3 (4.4-11.0)
[2024-10-27 12:32] LABS: Color, Urine Yellow (Yellow); Glucose, Dipstick Normal (Normal); Ketone-Dipstick Negative (Negative); Leukocyte Esterase-Dipstick Negative /ul (Negative); Mucous, Urine 0 SEEN /hpf (<or=2+); Nitrite-Dipstick Negative (Negative); Occult Blood-Urine 50 /ul (Negative); Protein-Dipstick 30 mg/dl (Negative); Specific Gravity, Urine 1.005 (1.002-1.030); Urine Bilirubin Dipstick Negative (Negative); Urine Clarity Clear (Clear); Urine Urobilinogen Normal (Normal); White Blood Cells 0 SEEN /hpf (0-5)
[2024-10-27 12:40] LABS: Anion Gap 6 (5-15); BUN 29 mg/dL (7-18); BUN/Creat Ratio 13.6 RATIO (10-20); Calcium,Total 9.3 mg/dL (8.5-10.1); Chloride 100 mmol/L (98-107); Creatinine, Serum 2.13 mg/dL (0.70-1.30); EST Glomerular Filtration Rate 33 mL/min (>60); Est Glom Filt Rate - Afr Amer 40 mL/min (>60); Estimated Creatinine Clearance 33.31 ml/min; Glucose 120 mg/dL (74-106); Potassium 3.8 mmol/L (3.5-5.1); Sodium Level 130 mmol/L (136-145); Troponin-I HS 14 pg/mL (3.0-78.0)
[2024-10-27 12:45] LABS: Bacteria 1+ /hpf (None Seen); Red Blood Cells-Urine 0-5 SEEN /hpf (0-5); Squamous Epithelial Cells - UA 0-5 SEEN /hpf (0-5)
[2024-10-27] MEDS: 0.9% Normal Saline (1000mL) 1,000 ML 999 ML IV ×2 (12:56→15:48)
[2024-10-27 13:15] LABS: D-Dimer Quantitative (DVT/PE) 0.56 FEU/ug/m (0.27-0.49)
--- NOTE | 2024-10-27 13:50 | RAD_ITS ---
EXAM: XR CHEST, 1 VIEW CLINICAL INDICATION: syncope TECHNIQUE: Frontal view of the chest. COMPARISON: 09/17/2024 FINDINGS: LUNGS AND PLEURAL SPACES: Right pleural fluid versus pleural thickening is unchanged. No consolidation or edema. Mild pulmonary hyperinflation with flattening of the hemidiaphragms. No pneumothorax. HEART: See below. MEDIASTINUM: Intact sternal wires. Multiple surgical clips in the mediastinum from CABG procedure. BONES/JOINTS: Unremarkable. No acute fracture. SOFT TISSUES: Unremarkable. RAD/Chest 1 View (Portable) IMPRESSION: 1. No acute findings in the chest. 2. Chronic right pleural fluid versus pleural thickening unchanged when compared to 09/17/2024. Electronically Signed: Pablo Gross MD at 15:15 EST ,
--- NOTE | 2024-10-27 14:15 | PCM.HP.STD ---
HPI - General General Date of Admission: 10/27/24 Date of Service: 10/27/24 Chief Complaint: Syncopal episode HPI Narrative RAISA SMILEY, is a 69 M who presented to [facility] ED on 10/27/2024 after a syncopal episode at home. Patient has past medical history significant for CAD with CABG and extensive stenting and stage III COPD on 2 L nasal cannula at night. Patient lives at home with his son, son was not present when episode occurred. Patient reported sitting at the kitchen table and then next thing he knew he woke up on the floor and had a laceration on his forehead. Stated he was able to get up and called his son who then called EMS to bring the patient in. On arrival to the ED patient was tachycardic to the low 100s and hypotensive to the 90s over 70s, was otherwise breathing comfortably on room air. Labs notable for sodium 130, creatinine 2.13 (baseline around 1.5). CT brain and C-spine were unremarkable. Chest x-ray was also unremarkable. EKG showed normal sinus rhythm with right bundle branch block, no acute ST changes. He was given 1 L normal saline with improvement in blood pressure to the 110s systolic. He also had the laceration on his forehead closed with Steri-Strips. Given the syncopal episode and significant cardiac history, hospitalist was contacted for admission. I saw the patient at bedside in the ED, family friend was present. Patient was sitting up comfortably in bed, conversing normally, in no acute distress. He was eating soup from [employer] when I saw him. Denied any acute pain or discomfort. Patient follows with [facility] and notes that his sinus tachycardia has been worse recently, and he was told to increase his metoprolol dose because of this. Scheduled to see cardiology in the office in early October. Denies any lightheadedness or dizziness recently. He does have known history of COPD and follows with [facility]. He wears 2 L nasal cannula at night, does not wear supplemental oxygen during the day. Patient also reports that he has not been taking his home roflumilast or Spiriva recently stating he does not feel like he needs them. On further questioning about today's episode patient states that he does remember feeling short of breath and had difficulty catching his breath prior to the episode. He is not able to do much at home because of significant shortness of breath with exertion that has been ongoing for some time. He is still smoking about 1/2 pack of cigarettes daily. No other acute concerns at this time. [facility] Medical History Essential hypertension Alcohol use History of steroid therapy Arthritis High cholesterol Smoker On home oxygen therapy COPD (chronic obstructive pulmonary disease) Shortness of breath on exertion History of pain when walking Hypertension History of echocardiogram History of stress test Cardiology follow-up encounter [facility] Nodule of lower lobe of left lung Perforated diverticulum of large intestine Presence of stent in coronary artery (~11/12/21) Easy bruising Excessive bleeding History of ulceration Gastric reflux History of diverticulitis Chronic bronchitis Nicotine dependence Osteoarthritis DDD (degenerative disc disease), lumbar Atherosclerosis of coronary artery of [place] heart without angina pectoris Atherosclerosis of coronary artery bypass graft without angina pectoris Hyperlipidemia Home Medications ?Medication ?Instructions ?Recorded ?Last Taken ?Type clopidogrel 75 mg tablet (Plavix) 75 mg PO DAILY anti platelet #90 10/04/21 11/26/22 Rx tabs potassium chloride 10 mEq 10 meq PO DAILY PRN supplement 06/19/23 Unknown History capsule,extended release losartan 50 mg tablet 50 mg PO QDAY #90 tabs 03/18/24 Unknown Rx furosemide 40 mg tablet 40 mg PO DAILY #90 TABLETS 06/18/24 Unknown Rx albuterol sulfate 90 mcg/actuation 2 puff inhalation Q6H PRN PRN 07/30/24 Unknown Rx aerosol inhaler Shortness Of Breath #8.5 grams budesonide-formoterol HFA 160 2 puff inhalation BID #3 ea 07/30/24 Unknown Rx mcg-4.5 mcg/actuation aerosol inhaler (Symbicort) rosuvastatin 40 mg tablet 40 mg PO QHS #90 tabs 08/14/24 Unknown Rx isosorbide mononitrate 30 mg 30 mg PO DAILY #90 TABLETS 09/09/24 Unknown Rx tablet,extended release 24 hr ipratropium 0.5 mg-albuterol 3 mg 3 ml continuous nebulization Q6H 09/10/24 Unknown Rx (2.5 mg base)/3 mL nebulization PRN shortness of breath or soln wheezing #180 mL metoprolol succinate 50 mg 50 mg PO DAILY #180 tabs 09/10/24 Unknown Rx tablet,extended release 24 hr Allergy/AdvReac Type Severity Reaction Status Date / Time levofloxacin (From Levaquin) AdvReac Severe tendonitis Verified 10/27/24 11:35 Family History Father CAD (coronary artery disease) Brother Hypertension Grandfather Pancreatic cancer Grandmother Heart disease Surgical History History of laparoscopic cholecystectomy S/P laparoscopic cholecystectomy Status post double vessel coronary artery bypass Presence of coronary angioplasty implant and graft (~09/29/21) Hx of left cataract extraction Hx of right cataract extraction History of cardiac catheterization History of colectomy S/p bilateral carpal tunnel release H/O coronary artery bypass surgery (10/14/96) History of left knee replacement History of appendectomy History of tonsillectomy History of partial colectomy Social History Smoking Status: Current every day smoker tobacco type: cigarettes alcohol intake: current alcohol intake frequency: 0-2 drinks per day substance use type: does not use caffeine: Yes Type: coffee Number of servings: 2 what type of physical activity do you participate in: none seatbelt use: always do you feel safe at home: Yes ROS Constitutional Constitutional: Denies chills, fatigue, fever(s) or weakness Eyes Eyes: Denies change in vision Cardiovascular Cardiovascular: Reports syncope; Denies chest pain, edema, lightheadedness or palpitations Respiratory/Chest Respiratory/Chest: Reports cough, shortness of breath with exertion and wheezing; Denies productive cough or shortness of breath at rest Gastrointestinal Gastrointestinal: Denies abdominal pain Genitourinary Genitourinary: Denies dysuria Musculoskeletal Musculoskeletal: Denies arthralgias or myalgias Neurologic Neurologic: Denies dizziness, focal weakness or headache(s) Vital Signs Vital Signs Vital Signs: 10/27/24 11:33 10/27/24 13:33 Temperature 96.9 F L Temperature Source Temporal Pulse Rate 108 H 91 Respiratory Rate 20 H 18 Blood Pressure 121/78 H 113/75 Blood Pressure Mean 92 87 Pulse Ox 96 94 Oxygen Delivery Method Room Air Room Air Weight Weight: 83.28 kg Body Mass Index (BMI) 28.7 Physical Exam Const alert, oriented x3, no apparent distress and average body habitus Constitutional Narrative: Elderly male, mildly fatigued appearing but otherwise sitting up comfortably in bed, breathing comfortably on room air at rest, conversing normally and in no acute distress. General Appearance: cooperative and comfortable HEENT normocephalic, head/scalp atraumatic, hearing grossly normal bilaterally and nasal mucous membranes and turbinates normal Eyes PERRL, EOMs intact bilaterally and conjunctivae normal Neck full ROM Chest inspection of chest normal Resp normal respiratory effort and no use of accessory muscles Resp Narrative: Breathing notably on room air at rest. Mild wheezing noted in upper airways bilaterally but otherwise fairly good air movement throughout with no crackles noted. Cardio no murmurs and peripheral pulses 2+ throughout Cardio Narrative: Tachycardic, regular rhythm. GI normal to inspection, nondistended, normoactive bowel sounds, soft to palpation, non-tender and non-distended Back/Spine normal ROM Extremity normal to inspection, full ROM and no pedal edema Skin no rashes or lesions noted Neuro moves all extremities and no focal motor deficits Speech: speech normal Motor Exam: strength 5/5 throughout Psych mental status grossly normal Results Lab / Micro Data 10/27/24 11:56 10/27/24 11:56 Labs: Laboratory Results - last 24 hr 10/27/24 11:56: WBC 11.5 H, RBC 4.66, Hgb 15.1, Hct 43.4, MCV 93.1, MCH 32.4 H, MCHC 34.8, RDW Std Deviation 45.6 H, RDW Coeff of Lisa 13.4, Plt Count 179, MPV 9.5, Immature Gran % (Auto) 0.700, Neut % (Auto) 79.5 H, Lymph % (Auto) 12.9 L, [place] % (Auto) 6.3, Eos % (Auto) 0.3, Baso % (Auto) 0.3, Absolute Neuts (auto) 9.2 H, Absolute Lymphs (auto) 1.48, Nucleated RBC % 0, D-Dimer Quant (PE/DVT) Cancelled, Sodium 130 L, Potassium 3.8, Chloride 100, Carbon Dioxide 25.0, Anion Gap 6, BUN 29 H, Creatinine 2.13 H, Estim Creat Clear Calc 33.31, Est GFR (MDRD) Af Amer 40 L, Est GFR (MDRD) Non-Af 33 L, BUN/Creatinine Ratio 13.6, Glucose 120 H, Calcium 9.3, Troponin I High Sens 14 10/27/24 12:27: Urine Color Yellow, Urine Clarity Clear, Urine pH 7.0, Ur Specific [place] 1.005, Urine Protein 30 H, Urine Glucose (UA) Normal, Urine Ketones Negative, Urine Occult Blood 50 H, Urine Nitrite Negative, Urine Bilirubin Negative, Urine Urobilinogen Normal, Ur Leukocyte Esterase Negative, Urine RBC 0-5 SEEN, Urine WBC 0 SEEN, Ur Squamous Epith Cells 0-5 SEEN, Urine Bacteria 1+, Urine Mucus 0 SEEN 10/27/24 12:45: D-Dimer Quant (PE/DVT) 0.56 H* Imaging Radiology Impression Brain CT 10/27/24 11:47 IMPRESSION: Negative head/brain CT without intravenous contrast and unchanged when compared to 08/07/2023. Electronically Signed: Pablo Gross MD at 12:54 EST Reading Location ID and State: [facility] / [place] , Service support , Cervical Spine CT 10/27/24 11:54 IMPRESSION: No acute or remote fractures of the cervical spine and no traumatic subluxation of the cervical spine and craniocervical junction and cervicothoracic junction.. Electronically Signed: Pablo Gross MD at 13:00 EST , Assessment & Plan Assessment/Plan (1) Syncope: (2) Acute kidney insufficiency: PLAN: Plan Patient is a 69-year-old male who presented [facility] ED on 10/27/2024 after a syncopal episode at home. 1. Syncopal episode ? Admit under observation status to PCU. Suspect episode was multifactorial due to hypoxia in setting of severe COPD with poor medication adherence along with mild hypotension in setting of dehydration. However, cannot rule out cardiac arrhythmia. Last echo in 11/2023 showed EF 60%, mild concentric LV hypertrophy, RVSP 30 mmHg, no other abnormalities. Will repeat echo at this time. Continue cardiac monitoring while inpatient. If no arrhythmia identified would likely need to have patient wear a heart monitor for a short period of time on discharge. 2. LILLIE on CKD stage IIIa with mild hypotension ? Creatinine 2.13 on admit, baseline around 1.5. Presume secondary to mild dehydration with mild hypotension in setting of patient's home medications. Given 2 L of normal saline in the ED with improvement in blood pressure. Monitor daily BMP and urine output. Hold home Lasix, losartan, Toprol and nitrate for now. 3. Hyponatremia ? Sodium 130 on admit. Given 2 L normal saline in the ED. Follow-up a.m. sodium level. 4. History of CAD with CABG and extensive stenting, hypertension, hyperlipidemia, sinus tachycardia ? Follows with [facility]. Last stenting was done at [facility] in 2021. Patient reports no recent chest pain. Repeat echo ordered as noted above. Troponin normal on admit and EKG with no ST changes. Continue home Plavix and statin. Holding other home medications as noted above. 5. Severe COPD with nocturnal hypoxia ? Follows with [facility]. Noted to have severe COPD secondary to extensive smoking history and wears 2 L nasal cannula at night. Per office note from July, patient may need supplemental oxygen with exertion but has refused to wear it. Is prescribed triple therapy with budesonide?formoterol, DuoNebs and Spiriva. Is also prescribed Roflumilast. Patient reports that he has not been using the Spiriva or Roflumilast recently, states he discontinued because he did not feel he needed them. Mild wheezing noted on exam on admit but suspect patient is at his baseline. Will continue home medications including Spiriva and Roflumilast here. 6. Medication nonadherence ? Patient reports not taking home Spiriva, Roflumilast, Zetia and omeprazole on admit. States he is not taking them because he did not feel he needed them. Patient also is likely becoming hypoxic with exertion but has refused to wear supplemental oxygen with exertion to this point. 7. Forehead laceration ? Mild laceration closed with Steri-Strips in the ED. CT brain and C-spine on admit unremarkable. DVT prophylaxis: Heparin subcu CODE STATUS: Full code, verified Expected disposition: Home, 1 to 2 days Total clinical time spent by myself addressing the patient's medical issues, reviewing all the data, and collaborating with patient's care team: 75 minutes. Charges/Coding Visit Charges Inpatient E&M: 88603 Init Hosp L3
[2024-10-27] MEDS: Atorvastatin Calcium 80 MG Tablet PO (20:26)
[2024-10-27] MEDS: Ipratropium/Albuterol Sulfate 3 ML AMPUL.NEB INHALATION (21:03)
[2024-10-28] VITALS (10 sets, daily range): BP systolic 113–120; BP diastolic 70–80; PULSE 75–101; RESP 16–18; TEMP 36.5–36.7; O2SAT 93–97
[2024-10-28] MEDS: Ipratropium/Albuterol Sulfate 3 ML AMPUL.NEB INHALATION ×3 (04:02→15:58)
[2024-10-28 06:12] LABS: Anion Gap 3 (5-15); BUN 26 mg/dL (7-18); BUN/Creat Ratio 12.8 RATIO (10-20); Calcium,Total 8.9 mg/dL (8.5-10.1); Chloride 104 mmol/L (98-107); Creatinine, Serum 2.03 mg/dL (0.70-1.30); EST Glomerular Filtration Rate 35 mL/min (>60); Est Glom Filt Rate - Afr Amer 42 mL/min (>60); Estimated Creatinine Clearance 34.51 ml/min; Glucose 135 mg/dL (74-106); Sodium Level 138 mmol/L (136-145)
[2024-10-28 06:15] LABS: Hematocrit 39.4 % (40-54); Hemoglobin 13.4 g/dL (13.0-16.5); Mean Platelet Vol. 9.4 fl (6.2-12.0); Platelet Count 148 K/mm3 (150-450); RBC Distribution Width CV 13.5 % (11.6-14.6); RBC Distribution Width SD 45.9 fl (35.1-43.9); Red Blood Count 4.19 M/mm3 (4.6-6.2); White Blood Count 8.3 K/mm3 (4.4-11.0)
[2024-10-28] MEDS: Budesonide Respules 0.5 MG/2 ML AMPUL.NEB. INHALATION (07:53)
[2024-10-28] MEDS: Metoprolol(XL)Succ 50 MG Tablet PO (08:51)
[2024-10-28] MEDS: Potassium Chloride Oral Tablet 20 MEQ 40 MEQ PO (08:51)
[2024-10-28] MEDS: Clopidogrel Bisulfate 75 MG Tablet PO (08:51)
[2024-10-28 08:55] LABS: Magnesium 2.5 mg/dL (1.6-2.6); Phosphorus 2.3 mg/dL (2.5-4.9)
--- NOTE | 2024-10-28 12:11 | ECHOCS_ITS ---
Reason For Study: Syncope Procedure This was a 2D Doppler, Color Flow transthoracic echocardiogram. The study was technically difficult. Exam performed portable in patient room. Left Ventricle Normal LV size. Left ventricular systolic function is normal. The left ventricular ejection fraction is 60 %. No regional wall motion abnormalities noted. Right Ventricle Normal RV size. Normal systolic function. Atria Normal left atrium. Normal right atrium. Mitral Valve Normal mitral valve. Tricuspid Valve Normal tricuspid valve. Mild tricuspid valve insufficiency. Pulmonary artery systolic pressure is 30 mmHg. Aortic Valve Trisinus/trileaflet aortic valve. Mild focal aortic valve calcification. Pulmonic Valve Normal pulmonic valve. Great Vessels Normal aortic root. The pulmonary artery is normal size. Inferior vena cava collapse with respiration. Pericardium/Pleural No pericardial effusion. Medication Diluted definity 2.0ml given slow IV push to enhance endocardial definition. MMode/2D Measurements & Calculations LVIDd: 3.3 cm IVSd: 1.3 cm LVOT diam: 2.1 cm LVIDs: 1.7 cm LVPWd: 1.5 cm RVDd: 3.4 cm FS: 47.2 % LVOT area: 3.5 cm2 asc Aorta Diam: 3.5 cm LAV(MOD-bp): 31.5 ml LA A4 area: 12.9 cm2 LAV(MOD-bp) Indexed: 16.4 ml/m2 LAV(MOD-sp2): 35.0 ml LAV(MOD-sp4): 26.8 ml LA dimension(2D): 3.4 cm TAPSE: 1.4 cm RA A4 area: 12.7 cm2 Time Measurements MV dec time: 0.23 sec Doppler Measurements & Calculations MV E max lito: 76.9 cm/sec Lat Peak E' Lito: 7.8 cm/sec Med Peak E' Lito: 9.8 cm/sec MV A max lito: 123.5 cm/sec E/E' lat: 9.8 E/E' med: 7.9 MV E/A: 0.62 MV dec slope: 341.2 cm/sec2 Ao V2 max: 144.8 cm/sec LV V1 max: 112.1 cm/sec Ao max P.4 mmHg LV V1 max P.0 mmHg Ao V2 mean: 99.1 cm/sec LV V1 mean P.1 mmHg Ao mean P.4 mmHg LV V1 mean: 82.8 cm/sec Ao V2 VTI: 22.9 cm LV V1 VTI: 18.0 cm AV (velocity ratio): 0.78 WADE(I,D): 2.8 cm2 WADE(V,D): 2.7 cm2 SV(LVOT): 63.0 ml PA V2 max: 89.8 cm/sec TR max lito: 259.9 cm/sec TR max P.0 mmHg ECHO/Echo Complete W/ Contrast Interpretation Summary Normal LV size. Left ventricular systolic function is normal. The left ventricular ejection fraction is 60 %. Pulmonary artery systolic pressure is 30 mmHg. Contrast injection was performed. Ordering Physician: Vicente Andrews Performed By: Delia Sharp RDCS
--- NOTE | 2024-10-28 16:37 | DCINST_ITS ---
Discharge Instructions Diet Discharge Diet: 4000 mg Sodium Diet DC O2, CPAP, BIPAP needs RN Home O2 Qualification: Home O2 Qualification: Is the patient on home oxygen Yes 10/28/24 07:52 Home O2 Qualification: AT REST 1-Pulse Ox at rest 94 10/28/24 07:52 1- Oxygen flow rate at rest 0 10/28/24 07:52 Home O2 Qualification: WITH AMBULATION 1- Pulse Ox with ambulation 93 10/28/24 07:52 1- Oxygen Flow Rate with 0 10/28/24 07:52 ambulation Home O2 Discharge instructions: No Dressing / Incision Discharge Activity: No Restrictions Follow Up Care Test Results: Test results from this visit will be discussed in further detail at your follow- up appointment, if applicable. Discharge Plan Admission Admit Date/Time: 10/27/24 14:17 Primary Reason for Your Visit: Episode of passing out Attending Provider: Vicente Andrews Primary Care Provider: George Vzáquez Instructions Additional Instructions / Restrictions: ? Hold off on taking your home losartan and Lasix until you see cardiology in the office on 11/05. ? Strongly recommend that you restart taking Daliresp and Spiriva per pulmonology recommendations. ? Continue your other home medications as normal on discharge. Discharge Orders/Prescriptions Prescriptions: Continued clopidogrel [Plavix] 75 mg tablet 75 mg PO DAILY Qty: 90 4RF potassium chloride 10 mEq capsule, extended release 10 meq PO DAILY PRN (Reason: supplement) budesonide-formoterol [Symbicort] 160-4.5 mcg/actuation HFA aerosol inhaler 2 puff inhalation BID Qty: 3 3RF Rx Instructions: administer with spacer, rinse mouth after each use albuterol sulfate 90 mcg/actuation HFA aerosol inhaler 2 puff INHALATION Q6H PRN PRN (Reason: Shortness Of Breath) Qty: 8.5 11RF rosuvastatin 40 mg tablet 40 mg PO QHS Qty: 90 3RF isosorbide mononitrate 30 mg tablet extended release 24 hr 30 mg PO DAILY Qty: 90 3RF ipratropium-albuterol 0.5 mg-3 mg(2.5 mg base)/3 mL solution for nebulization 3 ml continuous nebulization Q6H PRN (Reason: shortness of breath or wheezing) Qty: 180 11RF metoprolol succinate 50 mg tablet extended release 24 hr 50 mg PO DAILY Qty: 180 3RF Held losartan 50 mg tablet 50 mg PO QDAY Qty: 90 3RF Hold Instructions: Resume on 11/05/24. Hold until you see cardiology in the office. furosemide 40 mg tablet 40 mg PO DAILY Qty: 90 3RF Hold Instructions: Resume on 11/05/24. Hold until you see cardiology in the office. Referrals / Follow Up: George Vázquez MD [Primary Care Provider] - Disposition Disposition (needs filled in before D/C Order can be placed): Home, Self Care
--- NOTE | 2024-10-28 16:40 | CASEMGMT ---
TOMMIE ANNA in to complete PONCE form. RN WILFRIDO explained PONCE Form to patient, patient voiced understanding. Patient signed PONCE form and filed in chart. Signed PONCE form filed in chart, patient provided copy. Patient denies needs or help at discharge. Patient had no further questions or concerns.
--- NOTE | 2024-10-28 16:43 | PCM.DC.SUM ---
Providers Date of Admission: 10/27/24 Date of Discharge: 10/28/24 Primary Care Physician: Dr. George Vázquez MD Reason For Visit: SYNCOPE Diagnosis Discharge Diagnosis (1) Syncope: Status: Acute Code(s): R55 - Syncope and collapse (2) Acute kidney insufficiency: Status: Acute Code(s): N28.9 - Disorder of kidney and ureter, unspecified Medications at Discharge Home Medications clopidogrel 75 mg tablet (Plavix) 75 mg PO DAILY anti platelet #90 tabs 10/04/21 potassium chloride 10 mEq capsule,extended release 10 meq PO DAILY PRN supplement 06/19/23 losartan 50 mg tablet 50 mg PO QDAY #90 tabs 03/18/24 furosemide 40 mg tablet 40 mg PO DAILY #90 TABLETS 06/18/24 albuterol sulfate 90 mcg/actuation aerosol inhaler 2 puff inhalation Q6H PRN PRN Shortness Of Breath #8.5 grams 07/30/24 budesonide-formoterol HFA 160 mcg-4.5 mcg/actuation aerosol inhaler (Symbicort) 2 puff inhalation BID #3 ea 07/30/24 rosuvastatin 40 mg tablet 40 mg PO QHS #90 tabs 08/14/24 isosorbide mononitrate 30 mg tablet,extended release 24 hr 30 mg PO DAILY #90 TABLETS 09/09/24 ipratropium 0.5 mg-albuterol 3 mg (2.5 mg base)/3 mL nebulization soln 3 ml continuous nebulization Q6H PRN shortness of breath or wheezing #180 mL 09/10/24 metoprolol succinate 50 mg tablet,extended release 24 hr 50 mg PO DAILY #180 tabs 09/10/24 Hospital Course Operations None Procedures EKG, Transthoracic echo and - (CT brain, CT C-spine, chest x-ray) Summary of Care Provided Minutes Spent on Discharge: 35 Hospital Course: Patient is a 69-year-old male who presented [facility] ED on 10/27/2024 after a syncopal episode at home. Short hospital course as noted below. Patient discharged home in stable condition on 10/28. 1. Syncopal episode ? Suspect episode was multifactorial due to hypoxia in setting of severe COPD with poor medication adherence along with hypotension in setting of dehydration from overdiuresis. Patient had no ectopy on cardiac monitoring during hospitalization. Echo on 10/28 showed EF 60%, mild pulmonary hypertension with PASP of 30 mmHg, no other abnormalities. Patient was likely being overdiuresed on home Lasix 40 mg daily. Can continue home Toprol and isosorbide mononitrate but will hold home Lasix and losartan until patient sees cardiology in the office on 11/05. Lower suspicion for cardiac arrhythmia causing the event, will not send event monitor on discharge and instead defer to cardiology on whether this is needed. 2. LILLIE on CKD stage IIIa with mild hypotension ? Creatinine 2.13 on admit, baseline around 1.5. Presumed secondary to dehydration with hypotension in setting of patient's home medications. Given 2 L of normal saline in the ED with improvement in blood pressure. Creatinine 2.05 on hospital day 2. Blood pressure remains low normal in the 110s over 70s during hospitalization off home medications. Okay to resume home Toprol nitrate on discharge but holding home Lasix and losartan until cardiology follow-up appointment on 11/05. Recommend that patient have repeat BMP done at that time to ensure kidney function has returned back to normal. 3. Hyponatremia, resolved ? Sodium 130 on admit. Given 2 L normal saline in the ED with improvement back to normal range. 4. History of CAD with CABG and extensive stenting, hypertension, hyperlipidemia, sinus tachycardia ? Follows with [place] cardiology. Last stenting was done at [facility] in 2021. Patient reports no recent chest pain. Repeat echo ordered as noted above. Troponin normal on admit and EKG with no ST changes. Continue home Plavix and statin. Continue home Toprol and nitrate, and holding Lasix and losartan as noted above. 5. Severe COPD with nocturnal hypoxia ? Follows with [place] pulmonology. Noted to have severe COPD secondary to extensive smoking history and wears 2 L nasal cannula at night. Per office note from July, patient may need supplemental oxygen with exertion but has refused to wear it. Is prescribed triple therapy with budesonide?formoterol, DuoNebs and Spiriva. Is also prescribed Roflumilast. Patient reports that he has not been using the Spiriva or Roflumilast recently, states he discontinued because he did not feel he needed them. Mild wheezing noted on exam on admit but suspect patient is at his baseline. Continued home medications including Spiriva and Roflumilast here and strongly recommended that patient resume these medications on discharge. Stable on room air on discharge and did not become hypoxic with exertion on testing. 6. Medication nonadherence ? Patient reports not taking home Spiriva, Roflumilast, Zetia and omeprazole on admit. States he is not taking them because he did not feel he needed them. 7. Forehead laceration ? Mild laceration closed with Steri-Strips in the ED. CT brain and C-spine on admit unremarkable. Total clinical time spent by myself addressing the patient's medical issues, reviewing all the data, and collaborating with patient's care team: 35 minutes. Physical Exam Const alert, oriented x3, no apparent distress and average body habitus Constitutional Narrative: Elderly male, energy improved from admission, sitting up comfortably in bed, breathing comfortably on room air at rest, conversing normally and in no acute distress. General Appearance: cooperative and comfortable HEENT normocephalic, head/scalp atraumatic, hearing grossly normal bilaterally and nasal mucous membranes and turbinates normal Eyes PERRL, EOMs intact bilaterally and conjunctivae normal Neck full ROM Chest inspection of chest normal Resp normal respiratory effort and no use of accessory muscles Resp Narrative: Breathing notably on room air at rest. Mild wheezing noted in upper airways bilaterally but otherwise fairly good air movement throughout with no crackles noted. Cardio regular rate, regular rhythm, no murmurs and peripheral pulses 2+ throughout GI normal to inspection, nondistended, normoactive bowel sounds, soft to palpation, non-tender and non-distended Back/Spine normal ROM Extremity normal to inspection, full ROM and no pedal edema Skin no rashes or lesions noted Neuro moves all extremities and no focal motor deficits Speech: speech normal Motor Exam: strength 5/5 throughout Psych mental status grossly normal Weight / BMI Weight Weight: 81 kg Body Mass Index (BMI) 27.9 ABG / Lab / Microbiology Data 10/28/24 05:30 10/28/24 05:30 Laboratory: Laboratory Results - last 24 hr 10/28/24 05:30: WBC 8.3, RBC 4.19 L, Hgb 13.4, Hct 39.4 L, MCV 94.0, MCH 32.0, MCHC 34.0, RDW Std Deviation 45.9 H, RDW Coeff of Lisa 13.5, Plt Count 148 L, MPV 9.4, Sodium 138, Potassium 3.0 L, Chloride 104, Carbon Dioxide 30.0, Anion Gap 3 L, BUN 26 H, Creatinine 2.03 H, Estim Creat Clear Calc 34.51, Est GFR (MDRD) Af Amer 42 L, Est GFR (MDRD) Non-Af 35 L, BUN/Creatinine Ratio 12.8, Glucose 135 H, Calcium 8.9, Phosphorus 2.3 L, Magnesium 2.5 Radiography Diagnostic Testing: Radiology Impression Echocardiogram 10/28/24 12:11 Interpretation Summary Normal LV size. Left ventricular systolic function is normal. The left ventricular ejection fraction is 60 %. Pulmonary artery systolic pressure is 30 mmHg. Contrast injection was performed. Ordering Physician: Vicente Andrews Performed By: Delia Sharp RDCS D/C Instructions Discharge Diet: 4000 mg Sodium Diet DC O2, CPAP, BIPAP Needs RN Home O2 Qualification: Home O2 Qualification: Is the patient on home oxygen Yes 10/28/24 07:52 Home O2 Qualification: AT REST 1-Pulse Ox at rest 94 10/28/24 07:52 1- Oxygen flow rate at rest 0 10/28/24 07:52 Home O2 Qualification: WITH AMBULATION 1- Pulse Ox with ambulation 93 10/28/24 07:52 1- Oxygen Flow Rate with 0 10/28/24 07:52 ambulation Home O2 Discharge instructions: No Meaningful Use Info Meaningful Use Meaningful Use Diagnoses (Choose all that apply): None applicable Ischemic Stroke Statin Dosing Therapy Reference: STATIN DOSE THERAPY REFERENCE: * Patients > 75 years receive moderate or high dose statin therapy. * Patients 75 years or YOUNGER should receive HIGH intensity statin dose unless contraindicated. You will be required to document reason for non-treatment if statin daily dose does not meet guidelines. HIGH DOSE STATIN THERAPY DAILY Atorvastatin > than or = to 40 mg Rosuvastatin > than or = to 20 mg Amlodipine + Atorvastatin > than or = to 2.5/40 mg Ezetimibe + Simvastatin 10/80 mg Simvastatin 80mg Discharge Plan Admission Admit Date/Time: 10/27/24 14:17 Primary Reason for Your Visit: Episode of passing out Attending Provider: Vicente Andrews Primary Care Provider: George Vázquez Instructions Additional Instructions / Restrictions: ? Hold off on taking your home losartan and Lasix until you see cardiology in the office on 11/05. ? Strongly recommend that you restart taking Daliresp and Spiriva per pulmonology recommendations. ? Continue your other home medications as normal on discharge. Discharge Orders/Prescriptions Prescriptions: Continued clopidogrel [Plavix] 75 mg tablet 75 mg PO DAILY Qty: 90 4RF potassium chloride 10 mEq capsule, extended release 10 meq PO DAILY PRN (Reason: supplement) budesonide-formoterol [Symbicort] 160-4.5 mcg/actuation HFA aerosol inhaler 2 puff inhalation BID Qty: 3 3RF Rx Instructions: administer with spacer, rinse mouth after each use albuterol sulfate 90 mcg/actuation HFA aerosol inhaler 2 puff INHALATION Q6H PRN PRN (Reason: Shortness Of Breath) Qty: 8.5 11RF rosuvastatin 40 mg tablet 40 mg PO QHS Qty: 90 3RF isosorbide mononitrate 30 mg tablet extended release 24 hr 30 mg PO DAILY Qty: 90 3RF ipratropium-albuterol 0.5 mg-3 mg(2.5 mg base)/3 mL solution for nebulization 3 ml continuous nebulization Q6H PRN (Reason: shortness of breath or wheezing) Qty: 180 11RF metoprolol succinate 50 mg tablet extended release 24 hr 50 mg PO DAILY Qty: 180 3RF Held losartan 50 mg tablet 50 mg PO QDAY Qty: 90 3RF Hold Instructions: Resume on 11/05/24. Hold until you see cardiology in the office. furosemide 40 mg tablet 40 mg PO DAILY Qty: 90 3RF Hold Instructions: Resume on 11/05/24. Hold until you see cardiology in the office. Referrals / Follow Up: George Vázquez MD [Primary Care Provider] - Disposition Disposition (needs filled in before D/C Order can be placed): Home, Self Care Charges/Coding Visit Charges Inpatient E&M: 13695 Disch Hosp >30min
== END 2024-10-28 16:55 | disposition home or self-care (01) ==
LOC: ED 14:32 → PCU 16:26
PROVIDERS: Physician Assistant; Admitting Provider Hospitalist; Emergency Provider Emergency Medicine; PCP Internal Medicine; Visit Provider Hospitalist
DX: R55 Syncope and collapse (principal); J44.89 Other specified chronic obstructive pulmonary disease; N18.31 Chronic kidney disease, stage 3a; S01.81XA Laceration without foreign body of other part of head, initial encounter; I95.9 Hypotension, unspecified; I45.10 Unspecified right bundle-branch block; I12.9 Hypertensive chronic kidney disease with stage 1 through stage 4 chronic kidney disease, or unspecified chronic kidney disease; F17.210 Nicotine dependence, cigarettes, uncomplicated; E87.1 Hypo-osmolality and hyponatremia; Z79.02 Long term (current) use of antithrombotics/antiplatelets; I25.10 Atherosclerotic heart disease of native coronary artery without angina pectoris; E78.00 Pure hypercholesterolemia, unspecified; Z79.51 Long term (current) use of inhaled steroids; W19.XXXA Unspecified fall, initial encounter; Y92.000 Kitchen of unspecified non-institutional (private) residence as the place of occurrence of the external cause; Z99.81 Dependence on supplemental oxygen; K21.9 Gastro-esophageal reflux disease without esophagitis; Z79.899 Other long term (current) drug therapy; T44.3X6A Underdosing of other parasympatholytics [anticholinergics and antimuscarinics] and spasmolytics, initial encounter; T48.996A Underdosing of other agents primarily acting on the respiratory system, initial encounter; T46.6X6A Underdosing of antihyperlipidemic and antiarteriosclerotic drugs, initial encounter; Z91.148 Patient's other noncompliance with medication regimen for other reason
CPT/HCPCS: 36415; 70450; 71045; 72125; 80048; 81001; 83735; 84100; 84484; 85025; 85027; 85379; 93005; 93306; 94640; 94668; 96360; 96361; 99221; 99252; 99283; Q9957; A4216; C8929; G0378; G0463

== ENCOUNTER → 2024-11-05 | Outpatient (CLI) | payer MEDICARE, OTHER, SELFPAY ==
[2022-02-14 13:29] VITALS: BMI 28.4
== END | disposition home or self-care (01) ==
LOC: PSN 08:28
PROVIDERS: PCP Internal Medicine; Referring Provider Nurse Practitioner Acute Care; Visit Provider Nurse Practitioner Acute Care
DX: J44.9 Chronic obstructive pulmonary disease, unspecified (principal)
CPT/HCPCS: 94060; 94726; 94729

== ENCOUNTER → 2024-11-06 | Outpatient (CLI) | payer MEDICARE, OTHER, SELFPAY ==
[2022-02-14 13:29] VITALS: BMI 28.4
[2024-11-06 10:49] VITALS: PULSE 100; PULSE 102; PULSE 106; PULSE 108; PULSE 109; PULSE 113; PULSE 97; O2SAT 89; O2SAT 90; O2SAT 93; O2SAT 95
[2024-11-06 11:49] LABS: AST(SGOT) 25 U/L (15-37); Alanine Aminotransfer ALT/SGPT 31 U/L (16-61); Albumin, Serum 3.2 g/dL (3.2-5.0); Alkaline Phosphatase 67 U/L (45-117); Bilirubin, Direct 0.22 mg/dL (0.00-0.30); Cholesterol 143 mg/dL (200); Globulin 3.1 g/dL (2.2-4.2); High Density Lipoprotein 98 mg/dL; Protein, Total 6.3 g/dL (6.4-8.2); Triglycerides 86 mg/dL; Very Low Density Lipoprotein 17 mg/dL (5-40)
--- NOTE | 2024-11-11 13:00 | PCM.PSN.6M ---
PSN 6 Minute Walk Test 6 Minute Walk Test 6 Minute Walk Test: 6 Minute Walk Test PSN:6-Minute Walk Test Start: 11/06/24 10:49 Freq: Status: Active Protocol: [id number].6MINW Document 11/06/24 10:49 MONIYUAN (Rec: 11/06/24 10:51 CHELO [id number]) 6 Minute Walk Test Date Performed 11/06/24 Time Performed 10:30 Height 5 ft 7 in Weight: 180 lb Weight in Pounds 180.[address]: Radha Roberts [employer] Assistive device used: None Pre-test Oxygen Delivery Method Room Air Pulse Ox (%) 95 Pulse Rate (60-100 beats/min) 97 Dyspnea Emily Scale (0-10) 0 Exertion Emily Scale (6-20) 6 1st minute Oxygen Delivery Method Room Air Pulse Ox (%) 93 Pulse Rate (60-100 beats/min) 100 2nd minute Oxygen Delivery Method Room Air Pulse Ox (%) 90 Pulse Rate (60-100 beats/min) 102 H 3rd minute Oxygen Delivery Method Room Air Pulse Ox (%) 90 Pulse Rate (60-100 beats/min) 106 H 4th minute Oxygen Delivery Method Room Air Pulse Ox (%) 89 Pulse Rate (60-100 beats/min) 108 H 5th minute Oxygen Delivery Method Room Air Pulse Ox (%) 90 Pulse Rate (60-100 beats/min) 109 H 6th minute Oxygen Delivery Method Room Air Pulse Ox (%) 90 Pulse Rate (60-100 beats/min) 113 H Dyspnea Emily Scale (0-10) 4 Exertion Emily Scale (6-20) 14 Post-test Oxygen Delivery Method Room Air Pulse Ox (%) 95 Pulse Rate (60-100 beats/min) 100 Full Laps Walked 16 Partial Lap, Number of Tiles Walked 12 Total Distance Walked (ft) 956 Interpretation Interpretation: The patient ambulated 956 feet over the course of 6 minutes beginning on room air without assistive devices. Pretesting oxygen saturation was noted to be 95% on room air. With ambulation, the estephanie oxygen saturation was 89%. This represents a significant exertional oxygen desaturation, consistent with a pulmonary limitation to exercise tolerance. Recommendations Recommendations: There is no indication for the use of supplemental oxygen at this time. However, close interval follow-up is recommended, given the degree of oxygen desaturation noted during this study.
== END | disposition home or self-care (01) ==
LOC: PSN 10:10
PROVIDERS: Internal Medicine Cardiovascular Disease; PCP Internal Medicine; Referring Provider Nurse Practitioner Acute Care; Visit Provider Nurse Practitioner Acute Care
DX: R00.0 Tachycardia, unspecified (principal); J44.9 Chronic obstructive pulmonary disease, unspecified; E78.5 Hyperlipidemia, unspecified
CPT/HCPCS: 36415; 80061; 80076; 84443; 94618

== ENCOUNTER → 2024-11-26 | Outpatient (CLI) | payer MEDICARE, OTHER, SELFPAY ==
[2022-02-14 13:29] VITALS: BMI 28.4
[2024-11-26 09:22] LABS: Absolute Lymphocyte Count 2.06 X10^3/uL (0.83-4.51); Absolute Neutrophil Count 5.3 X10^3/uL (2.0-7.7); Basophil# 0.03 X10^3/uL; Basophil% 0.4 % (0-1); Eosinophil# 0.02 X10^3/uL; Eosinophils% 0.2 % (0-5); Hematocrit 40.7 % (40-54); Hemoglobin 13.8 g/dL (13.0-16.5); Lymphocyte # 2.06 X10^3/ul (0.83-4.51); Lymphocyte % 24.7 % (19-41); Mean Corp Hgb Conc 33.9 g/dL (32-36); Mean Corpuscular Hgb 32.4 pg (27.0-32.0); Mean Corpuscular Volume 95.5 fL (80-94); Mean Platelet Vol. 9.7 fl (6.2-12.0); Monocyte# 0.84 X10^3/uL; Monocyte% 10.1 % (0-10); NRBC Flagged by Analyzer 0 % (0-5); Neutrophil # 5.33 X10^3/uL (2.7-7.7); Neutrophil % 63.9 % (47-70); Platelet Count 205 K/mm3 (150-450); RBC Distribution Width CV 15.2 % (11.6-14.6); RBC Distribution Width SD 52.5 fl (35.1-43.9); Red Blood Count 4.26 M/mm3 (4.6-6.2); White Blood Count 8.3 K/mm3 (4.4-11.0)
[2024-11-26 11:11] LABS: D-Dimer Quantitative (DVT/PE) 0.66 FEU/ug/m (0.27-0.49)
== END | disposition home or self-care (01) ==
PROVIDERS: Internal Medicine Pulmonary Disease; PCP Internal Medicine; Referring Provider Internal Medicine Cardiovascular Disease; Visit Provider Internal Medicine Cardiovascular Disease
DX: R91.1 Solitary pulmonary nodule (principal); J44.9 Chronic obstructive pulmonary disease, unspecified; R09.02 Hypoxemia
CPT/HCPCS: 36415; 85025; 85379; 93225; 93226

== ENCOUNTER → 2024-11-27 | Outpatient (CLI) | payer MEDICARE, OTHER, SELFPAY ==
[2022-02-14 13:29] VITALS: BMI 28.4
--- NOTE | 2024-11-27 13:43 | CT_ITS ---
PROCEDURE: CTA CHEST W/WO CONTRAST Shortness of breath. Prior CABG and cardiac stents. REASON FOR EXAM: Shortness of breath. Prior CABG in cardiac stents. TECHNIQUE: CTA imaging of the chest with intravenous contrast. 3D reconstructions. CONTRAST: COMPARISON: None. FINDINGS: Hardware: None. Lymph nodes: No mediastinal hilar or axillary lymphadenopathy. Heart: Coronary artery calcifications are noted. Prior CABG. RV/LV Diameter Ratio: N/A Thoracic Aorta: No thoracic aortic aneurysm or dissection. Atherosclerotic plaque formation. Pulmonary Vessels: No evidence of acute pulmonary emboli through the major subsegmental branches. Most Proximal Level of Embolus (if embolus present): N/A Lungs and Airways: The lungs are normally expanded and clear. Pleura: No pleural effusion. No pneumothorax. Upper Abdomen: Small left adrenal adenoma. Bones: Degenerative changes. CT/CTA Chest W/WO Contrast IMPRESSION: NORMAL CHEST CTA. NO EVIDENCE OF ACUTE PULMONARY EMBOLISM. One or more dose reduction techniques were used (e.g., Automated exposure contr ol, adjustment of the mA and/or kV according to patient size, use of iterative reconstruction technique). Reading Location: [place] [id number]
[2024-11-27 15:50] LABS: Anion Gap 6 (5-15); BUN 21 mg/dL (7-18); BUN/Creat Ratio 19.6 RATIO (10-20); Chloride 103 mmol/L (98-107); Creatinine, Serum 1.07 mg/dL (0.70-1.30); EST Glomerular Filtration Rate 73 mL/min (>60); Est Glom Filt Rate - Afr Amer 88 mL/min (>60); Glucose 112 mg/dL (74-106); Potassium 3.9 mmol/L (3.5-5.1); Sodium Level 137 mmol/L (136-145)
[2024-11-27 16:56] LABS: BNP,B-Type NATRIURETIC PEPTIDE 118.8 pg/mL (0-100)
== END | disposition home or self-care (01) ==
PROVIDERS: PCP Internal Medicine; Referring Provider Internal Medicine Pulmonary Disease; Visit Provider Internal Medicine Pulmonary Disease
DX: R09.02 Hypoxemia (principal); R79.1 Abnormal coagulation profile
CPT/HCPCS: 36415; 71275; 80048; 83880; Q9967

== ENCOUNTER → 2025-01-08 | Outpatient (CLI) | payer MEDICARE, OTHER, SELFPAY ==
[2022-02-14 13:29] VITALS: BMI 28.4
--- NOTE | 2025-01-08 10:50 | RAD_ITS ---
EXAM: XR Chest, 2 Views CLINICAL INDICATION: SOB COUGH WITH SPUTUM TECHNIQUE: Frontal and lateral views of the chest. COMPARISON: No relevant prior studies available. FINDINGS: LUNGS AND PLEURAL SPACES: Hyperlucent lungs. Flattening of the diaphragm. No consolidation. No pneumothorax. HEART: Unremarkable. No cardiomegaly. MEDIASTINUM: Unremarkable. Normal mediastinal contour. BONES/JOINTS: Unremarkable. No acute fracture. RAD/Chest PA and Lateral IMPRESSION: Suggestion of COPD. Reading Location[facility]
== END | disposition home or self-care (01) ==
LOC: RAD 10:47
PROVIDERS: PCP Internal Medicine; Referring Provider Internal Medicine Cardiovascular Disease; Visit Provider Internal Medicine Cardiovascular Disease
DX: R05.8 Other specified cough (principal); R06.02 Shortness of breath
CPT/HCPCS: 71046

== ENCOUNTER → 2025-02-05 | Outpatient (CLI) | payer MEDICARE, OTHER, SELFPAY ==
[2022-02-14 13:29] VITALS: BMI 28.4
--- NOTE | 2025-02-05 09:50 | CDU_ITS ---
Reason For Study Reason For Study: ASCVD, fatigue Rt. Velocities/BP Lt. Velocities/BP Prox CCA 60.7/12.6 cm/sec. Prox CCA 90.8/14.9 cm/sec. Mid CCA 56.0/17.3 cm/sec. Mid CCA 80.9/18.2 cm/sec. Dist CCA 57.0/13.5 cm/sec. Dist CCA 58.9/17.1 cm/sec. Prox ICA 35.4/12.2 cm/sec. Prox ICA 29.6/10.4 cm/sec. Mid ICA 52.6/18.1 cm/sec. Mid ICA 75.1/26.1 cm/sec. Dist ICA 71.2/21.2 cm/sec. Dist ICA 57.7/20.0 cm/sec. Rt. ICA/CCA = 1.3. Lt. ICA/CCA = 0.9. Prox ECA 74.0/14.6 cm/sec. Prox ECA 94.1/11.8 cm/sec. Rt. Vert. 44.0/11.0 cm/sec. Lt. Vert. 36.5/12.8 cm/sec. Right Extracranial There is heterogeneous, irregular atherosclerotic plaque noted in the right common carotid artery. There is heterogeneous, irregular atherosclerotic plaque noted in the right internal carotid artery. There is heterogeneous, irregular atherosclerotic plaque noted in the right external carotid artery. Antegrade flow is noted in the right vertebral artery. Left Extracranial There is heterogeneous, irregular atherosclerotic plaque noted in the left common carotid artery. There is heterogeneous, irregular atherosclerotic plaque noted in the left internal carotid artery. The left internal carotid artery is very tortuous. There is intimal thickening but no significant atherosclerotic plaque noted in the left external carotid artery. Antegrade flow is noted in the left vertebral artery. Procedure Carotid Duplex [id number]. This is a Carotid Duplex examination using B-mode, color flow and specral Doppler. Exam performed in department. VL/Carotid Duplex Ultrasound Interpretation Summary Mild (<50%) stenosis right extracranial internal carotid. Mild (<50%) stenosis left extracranial internal carotid. Patent and antegrade vertebrals bilaterally. Ordering Physician: Bhupendra Asif Referring Physician: George Vázquez M.D. Performed By: Jazmyn Darby RVT
== END | disposition home or self-care (01) ==
LOC: CVS 09:49
PROVIDERS: PCP Internal Medicine; Referring Provider Student in an Organized Health Care Education/Training Program; Visit Provider Student in an Organized Health Care Education/Training Program
DX: I65.23 Occlusion and stenosis of bilateral carotid arteries (principal); R53.83 Other fatigue
CPT/HCPCS: 93880

== ENCOUNTER → 2025-02-14 | Outpatient (CLI) | payer MEDICARE, OTHER, SELFPAY ==
[2022-02-14 13:29] VITALS: BMI 28.4
[2025-02-14 12:42] LABS: Absolute Neutrophil Count 5.8 X10^3/uL (2.0-7.7); Basophil# 0.03 X10^3/uL; Basophil% 0.4 % (0-1); Eosinophil# 0.07 X10^3/uL; Eosinophils% 0.9 % (0-5); Hematocrit 43.8 % (40-54); Lymphocyte % 17.6 % (19-41); Mean Corp Hgb Conc 34.2 g/dL (32-36); Mean Corpuscular Hgb 33.7 pg (27.0-32.0); Mean Corpuscular Volume 98.4 fL (80-94); Mean Platelet Vol. 9.3 fl (6.2-12.0); Monocyte# 0.59 X10^3/uL; Monocyte% 7.4 % (0-10); NRBC Flagged by Analyzer 0 % (0-5); Neutrophil # 5.83 X10^3/uL (2.7-7.7); Neutrophil % 73.3 % (47-70); Platelet Count 200 K/mm3 (150-450); RBC Distribution Width CV 13.2 % (11.6-14.6); Red Blood Count 4.45 M/mm3 (4.6-6.2)
== END | disposition home or self-care (01) ==
LOC: LAB 12:03
PROVIDERS: PCP Internal Medicine; Referring Provider Internal Medicine Pulmonary Disease; Visit Provider Internal Medicine Pulmonary Disease
DX: J44.9 Chronic obstructive pulmonary disease, unspecified (principal)
CPT/HCPCS: 36415; 85025

== ENCOUNTER → 2025-05-03 | Outpatient (CLI) | payer MEDICARE, OTHER, SELFPAY ==
[2022-02-14 13:29] VITALS: BMI 28.4
[2025-05-03 10:56] LABS: Cholesterol 198 mg/dL (<=200); Low Density Lipoprotein Calc. 116 mg/dL; Triglycerides 125 mg/dL; Very Low Density Lipoprotein 25 mg/dL (5-40); cholesterol:hdl ratio screen 3.50
[2025-05-03 11:03] LABS: AST(SGOT) 26 U/L (<=37); Alanine Aminotransfer ALT/SGPT 13 U/L (<=46); Albumin, Serum 4.0 g/dL (3.4-4.8); Alkaline Phosphatase 85 U/L (40-129); Bilirubin, Direct 0.13 mg/dL (0.00-0.30); Globulin 2.8 g/dL (2.2-4.2)
== END | disposition home or self-care (01) ==
LOC: LAB 08:56
PROVIDERS: PCP Internal Medicine; Referring Provider Student in an Organized Health Care Education/Training Program; Visit Provider Student in an Organized Health Care Education/Training Program
DX: E78.5 Hyperlipidemia, unspecified (principal)
CPT/HCPCS: 36415; 80061; 80076

== ENCOUNTER → 2025-06-14 | Outpatient (CLI) | payer MEDICARE, OTHER, SELFPAY ==
[2022-02-14 13:29] VITALS: BMI 28.4
--- OUTSIDE RECORDS SUMMARY | 2025-06-14 09:02 | XMS RPT_ITS | CCD ---
Author Organization [facility] Care Team Providers Care Nutrition Faculty Member Name Role Phone PARAG, DARI Hunt Attending Unavailable PARAG, DARI Hunt Primary Care Unavailable PARAG, DARI Hunt Admitting Unavailable PARAG, DARI Hunt Attending Unavailable PARAG, DARI Hunt Primary Care Unavailable PARAG, DARI Hunt Admitting Unavailable George Vázquez MD Primary Care Provider Darlyn RN, Josh M Unavailable Unavailabl soetro Ulrich MD, Juventino Garvey Unavailable Dr. George Vázquez Primary Care Provider Dr. Mark Giles Attending Provider Dr. Mark Giles Referring Provider Dr. Mark Giles Other Provider Maru DURAN, PA Amada Champagne Other Provider Dr. Mendy Latham Admit Provider Dr. George Vázquez Referring Provider Christophe DEHYDROGENATION OPERATOR HEAD, DEHYDROGENATION OPERATOR HEAD-Vangie Montes Attending Provider Dr. George Vázquez Primary Care Provider Dr. George Vázquez Referring Provider Dr. Mark Giles Attending Provider Armando ELENA, DEHYDROGENATION OPERATOR HEAD-C Radha Attending Provider Dr. George Vázquez Primary Care Provider Dr. George Vázquez Referring Provider Christophe DEHYDROGENATION OPERATOR HEAD, DEHYDROGENATION OPERATOR HEAD-C Daniel Montes Attending Provider Dr. Farooq Hall Attending Provider Dr. Farooq Hall Referring Provider George Vázquez MD Primary Care Provider Darlyn REILLY, Josh Champagne Unavailable Sandoval Ulrich MD, Juventino G Unavailable Dr. George Vázquez Primary Care Provider GEORGE VÁZQUEZ Primary Care Unavailable NAHUM THACKER Attending Unavailable Dr. George Vázquez Referring Provider Dr. Aleksey Javier Attending Provider Dr. George Vázquez Primary Care Provider Dr. Farooq Hall Attending Provider Dr. Farooq Hall Referring Provider Dr. George Vázquez Referring Provider Concepcion, Dr. Ryder Attending Provider Josh REILLY, Darlyn Champagne Unavailable George Galdamez MD Primary Care Provider Josh REILLY, Darlyn Champagne Unavailable Sandoval Ulrich MD, Juventino Garvey Unavailable Dr. George Vázquez Primary Care Provider Dr. Farooq Hall Attending Provider Dr. Farooq Hall Referring Provider Daphne DEHYDROGENATION OPERATOR HEAD, DEHYDROGENATION OPERATOR HEAD-C Cristiane Champagne Attending Provider MD Pablo Whitney Emergency Provider [phone] Judy Henriquez Admit Provider Dr. Judy Henriquez Other Provider Dr. Ling Betancur Attending Provider Dr. Ling Betancur Other Provider Dr. George Vázquez Primary Care Provider Dr. George Vázquez Referring Provider Dr. Becky Corbin Attending Provider Dr. Tomy Hanks Attending Provider Dr. Becky Corbin Referring Provider Armando DEHYDROGENATION OPERATOR HEAD, DEHYDROGENATION OPERATOR HEAD-C Radha Attending Provider Dr. Becky Corbin Other Provider Dr. Salvador Palafox Referring Provider Dr. George Vázquez Primary Care Provider Dr. George Vázquez Referring Provider Daphne ELENA, DEHYDROGENATION OPERATOR HEAD-C Cristiane Champagne Attending Provider MD Pablo Whitney Emergency Provider Dr. Judy Henriquez Admit Provider Dr. Judy Henriquez Other Provider Dr. Ling Betancur Attending Provider Dr. Ling Betancur Other Provider Dr. Becky Corbin Attending Provider Dr. Tomy Hanks Attending Provider Dr. Becky Corbin Referring Provider Armando DEHYDROGENATION OPERATOR HEAD, DEHYDROGENATION OPERATOR HEAD-C Radha Attending Provider Dr. Becky Corbin Other Provider Dr. Salvador Palafox Referring Provider Dr. Mark Giles Attending Provider Dr. Aleksey Javier Attending Provider Dr. Aleksey Javier Other Provider Dr. George Vázquez Primary Care Provider Dr. George Vázquez Referring Provider Dr. Becky Corbin Attending Provider Daphne DEHYDROGENATION OPERATOR HEAD, DEHYDROGENATION OPERATOR HEAD-C Cristiane Champagne Attending Provider Armando DEHYDROGENATION OPERATOR HEAD, DEHYDROGENATION OPERATOR HEAD-C Radha Attending Provider [phone] Dr. George Vázquez Primary Care Provider Dr. George Vázquez Referring Provider RENEE Joseph Attending Provider Dr. Aleksey Javier Attending Provider Armando DEHYDROGENATION OPERATOR HEAD, DEHYDROGENATION OPERATOR HEAD-C Radha Referring Provider [phone] Armando DEHYDROGENATION OPERATOR HEAD, DEHYDROGENATION OPERATOR HEAD-C Radha Other Provider Dr. Tevin Nelson Attending Provider RENEE Joesph Referring Provider RENEE Joseph Other Provider Dr. Kal Bartholomew Attending Provider [phone] Dr. George Vázquez Primary Care Provider Dr. George Vázquez Referring Provider Armando ELENA, ULICES-C Radha Attending Provider Josh REILLY, Darlyn Champagne Unavailable Unavailnorah Ulrich MD, Juventino G Unavailable Dr. George Vázquez Primary Care Provider Dr. George Vázquez Referring Provider RENEE Joseph Attending Provider RENEE Patino Attending Provider Armando ELENA NP-Vangie Garcia Attending Provider RENEE Patino Attending Provider Dr. George Vázquez Primary Care Provider Dr. George Vázquez Referring Provider Dr. George Vázquez Primary Care Provider Dr. George Vázquez Referring Provider Maru DURAN, RENEE Champagne Attending Provider Dr. Farooq Hall Attending Provider Dr. Kal Bartholomew Attending Provider Gurpreet LOPEZ, George Montes Primary Care Provider Alban LICENSED NUCLEAR CONTROL ROOM OPERATOR.WIRE DRAWING SETTER, Blanca M Unavailable Gurpreet LOPEZ, Dr. Vazquez Primary Care Provider Chidi LOPEZ, Dr. Singh Attending Provider [phone] Chidi LOPEZ, Dr. Singh Emergency Provider Dr. Praveen Ruiz DO Emergency Provider Darryl GAY, Dr. Zhang Attending Provider Darryl GAY, Dr. Zhang Admit Provider Latonya LOPEZ, Dr. Huitron Attending Provider Dr. Vicente Andrews DO Other Provider Armando DEHYDROGENATION OPERATOR HEAD-C, Radha Attending Provider Armando DEHYDROGENATION OPERATOR HEAD-C, Radha Referring Provider Dr. George Vázquez MD Referring Provider Dr. Carrillo Malave MD Attending Provider Dr. Carrillo Malave MD Other Provider Armando DEHYDROGENATION OPERATOR HEAD-C, Radha Other Provider Dr. Tevin Nelson DO Attending Provider Dr. Carrillo Malave MD Referring Provider Dr. Neptali Orellana MD, V Other Provider Reyna LOPEZ, Dr. Neptali Anderson Attending Provider Dr. Neptali Orellana MD, V Referring Provider Gurpreet LOPEZ, Dr. Vazquez Primary Care Provider Bhupendra Bae Attending Provider Bhupendra Bae Referring Provider Sundar LOPEZ, Dr. Franco Attending Provider Gurpreet LOPEZ, Dr. Vazquez Primary Care Provider Gurpreet LOPEZ, Dr. Vazquez Referring Provider Ananda LOPEZ, Dr. Vizcaino Attending Provider Ananda LOPEZ, Dr. Vizcaino Referring Provider Reyna LOPEZ, Dr. Neptali Anderson Attending Provider Reyna LOPEZ, Dr. Neptali Anderson Referring Provider Christophe DEHYDROGENATION OPERATOR HEAD-C, Daniel Montes Attending Provider BLANCA TILLEY Referring Unavailable VÁZQUEZ, GEORGE Montes Primary Care Unavailable VÁZQUEZ, ROSALIA Primary Care Unavailable VÁZQUEZ, ROSALIA Primary Care Unavailable VÁZQUEZ, ROSALIA Primary Care Unavailable PRATEEK MATOS Referring Unavailable VÁZQUEZ, GEORGE Montes Primary Care Unavailable VÁZQUEZ, GEORGE Montes Attending Unavailable VÁZQUEZ, GEORGE Montes Attending Unavailable VÁZQUEZ, ROSALIA Primary Care Unavailable VÁZQUEZ, ROSALIA Referring Unavailable VÁZQUEZ, ROSALIA Primary Care Unavailable VÁZQUEZ, GEORGE Montes Attending Unavailable VÁZQUEZ, ROSALIA Primary Care Unavailable VÁZQUEZ, ROSALIA Referring Unavailable VÁZQUEZ, ROSALIA Primary Care Unavailable VÁZQUEZ, GEORGE Montes Attending Unavailable VÁZQUEZ, ROSALIA Primary Care Unavailable BLANCA TILLEY Attending Unavailable GURPREET, GEORGE Montes Primary Care Unavailable Armando DEHYDROGENATION OPERATOR HEAD, Radha Referring Unavailable Armando DEHYDROGENATION OPERATOR HEAD, Radha Attending Unavailable Vázquez, George Primary Care Unavailable Vázquez, George Referring Unavailable Armando DEHYDROGENATION OPERATOR HEAD, Radha Attending Unavailable Vázquez, George Primary Care Unavailable Christophe DEHYDROGENATION OPERATOR HEAD, Daniel Montes Attending Unavailable Gurpreet, George Referring Unavailable Vázquez, George Primary Care Unavailable Vázquez, George Primary Care Unavailable Vázquez, George Referring Unavailable Carrillo Malave Attending Unavailable Neptali Orellana V Referring Unavailable Neptali Orellana V Attending Unavailable Gurpreet, George Primary Care Unavailable Bhupendra Asif Referring Unavailable Bhupendra Asif Attending Unavailable George Vázquez Primary Care Unavailable Carrillo Malave Referring Unavailable Carrillo Malave Attending Unavailable Vázquez, George Primary Care Unavailable Demiter, Bhupendra Referring Unavailable Demiter, Bhupendra Attending Unavailable Vázquez, George Primary Care Unavailable Sibilia, Neptali V Referring Unavailable Sibilia, Neptali V Attending Unavailable Vázquez, George Primary Care Unavailable Vázquez, George Primary Care Unavailable Vázquez, George Referring Unavailable Carrillo Malave Attending Unavailable Francisco Murillo Attending Unavailable Vázquez, George Primary Care Unavailable Armando DEHYDROGENATION OPERATOR HEAD, Radha Referring Unavailable Armando DEHYDROGENATION OPERATOR HEAD, Radha Attending Unavailable Vázquez, George Primary Care Unavailable Carrillo Malave Attending Unavailable Vázquez, George Referring Unavailable Vázquez, George Primary Care Unavailable Demiter, Bhupendra Attending Unavailable Vázquez, George Referring Unavailable Vázquez, George Primary Care Unavailable Carrillo Malave Referring Unavailable Carrillo Malave Attending Unavailable Vázquez, George Primary Care Unavailable Tomy Hanks Attending Unavailable Vázquez, George Primary Care Unavailable Demiter, Bhupendra Referring Unavailable Salvador Kwok Attending Unavailable Vázquez, George Primary Care Unavailable Carrillo Malave Consulting Unavailable Tevin Nelson Attending Unavailable Armando DEHYDROGENATION OPERATOR HEAD, Radha Referring Unavailable Vázquez, George Primary Care Unavailable Armando DEHYDROGENATION OPERATOR HEAD, Radha Consulting Unavailable Vicente Andrews Attending Unavailable Vázquez, George Primary Care Unavailable Vicente Andrews Attending Unavailable Vicente Andrews Consulting Unavailable Vicente Andrews Admitting Unavailable Vázquez, George Primary Care Unavailable Armando DEHYDROGENATION OPERATOR HEAD, Radha Attending Unavailable Armando DEHYDROGENATION OPERATOR HEAD, Radha Referring Unavailable Vázquez, George Primary Care Unavailable Carrillo Malave Consulting Unavailable Carrillo Malave Referring Unavailable Carrillo Malave Attending Unavailable Sibilia, Neptali V Consulting Unavailable Vázquez, George Primary Care Unavailable Vicente Andrews Attending Unavailable Vicente Andrews Admitting Unavailable Vázquez, George Primary Care Unavailable Allergies Allergy Classification Reported Allergen(s) Allergy Type Date of Onset Reaction(s) Facility (20 sources) levoFLOXacin; Translations: [LEVOFLOXACIN] Drug Allergy 0 Other: See Comments [facility] Work Phone: Comment on above: Achilles (1 source) levoFLOXacin Drug Allergy [address] [facility] Repository Medications Current Medications Medication Drug Class(es) Dates Sig (Normalized) Sig (Original) acetaminophen 325 mg / HYDROcodone bitartrate 5 mg oral tablet (4 sources) Opioid Agonist Start: 07-13-2022 take 1 tablet by mouth every six hours Hydrocodone-Acetam inophen Active 1 TABLET PO EVERY 6 HOURS 12 July 13, 2022 [id number] 200 actuat albuterol 0.09 mg/actuat metered dose inhaler (20 sources) beta2-Adrenergic Agonist Start: 05-17-2024 End: 07-22-2024 take 2 puff(s) by inhalation every six hours as needed for wheezing albuterol HFA (PROAIR HFA) 90 mcg/actuation inhaler Indications: Chronic bronchitis, unspecified chronic bronchitis type (HCC) Inhale 2 Puffs as instructed every 6 hours as needed for wheezing/shortness of breath. 18 g 5 07/23/2024 Active Start: 05-04-2023 End: 05-08-2023 take 2.5 mg by inhalation every four hours as needed for wheezing Albuterol Sulfate 2.5 mg /3 mL (0.083 %) solution for nebulization Discontinued 2.5 mg INHALATION Q4H as needed for Sob &/Or Wheezing 180 3 May 04, 2023 12:00am May 08, 2023 2:44pm Start: 10-28-2022 End: 07-30-2024 Albuterol Sulfate 90 mcg/act uation HFA aerosol inhaler Active 2 NMA INHALATION EVERY 6 HOURS NEEDED as needed for Shortness Of Breath 8.5 July 30, 2024 8:24am Start: 10-28-2022 Albuterol Sulf ate Active INHALATION October 28, 2022 12:00am Start: 09-06-2022 End: 05-15-2024 take 2 puff(s) by inhalation every six hours as needed for wheezing albuterol HFA (PROAIR HFA) 90 mcg/actuation inhaler Inhale 2 Puffs as instructed every 6 hours as needed for wheezing/shortness of breath. 18 g 5 09/06/2022 05/24/2023 Discontinued Start: 08-05-2021 take 1 puff(s) by in halation every six hours as needed Albuterol Sulfate Active 2 PUFF INHALATION EVERY 6 HOURS NEEDED October 28, 2022 12:00am Start: 08-05-2021 End: 03-21-2022 take 2 puff(s) by inhalation every six hours as needed for wheezing albuterol HFA (PROAIR HFA) 90 mcg/actuation inhaler Inhale 2 Puffs as instructed every 6 hours as needed for wheezing/shortness of breath. 18 g 5 03/21/2022 Active Start: 08-05-2021 take 1 puff(s) by in halation every six hours Albuterol Sulfate Active 2 PUFF INHALATION EVERY 6 HOURS 8.5 August 05, 2021 1:07pm Start: 11-20-2019 End: 02-24-2021 take 2 puff(s) by inhalation every six hours as needed albuterol HFA (PROAIR HFA) 90 mcg/actuation inhaler Inhale 2 Puffs as instructed every 6 hours as needed. 1 Inhaler 5 11/20/2019 02/24/2021 Discontinued Start: 04-23-2018 End: 08-05-2021 Albuterol Sulfate 90 mcg/act uation HFA aerosol inhaler Discontinued 2 NMA INHALATION EVERY 6 HOURS as needed for sob April 23, 2018 12:00am August 05, 2021 1:07pm Start: 04-23-2018 End: 08-05-2021 take 1 puff(s) by inhalation every six hours Albuterol Sulfate Discontinued 2 PUFF INHALATION EVERY 6 HOURS April 22, 2018 11:00pm August 05, 2021 12:07pm Comment on above: Inhale 2 Puffs as in structed every 6 hours as needed for wheezing/shortness of breath. albuterol 0.833 mg/ml / ipratropium bromide 0.167 mg/ml inhalation solution (20 sources) Anticholinergic, beta2-Adrenergic Agonist Start: 05-25-2022 End: 09-10-2024 Ipratropium-Albuterol 0.5 mg-3 mg(2.5 mg base)/3 mL solution for nebulization Discontinued 3 mL continuous nebulization EVERY 6 HOURS as needed for shortness of breath or wheezing 180 11 June 05, 2024 9:00am September 10, 2024 1:38pm Start: 12-27-2021 End: 06-14-2024 take 3 mL by inhalation every six hours as needed ipratropium-albuterol (DUONEB) 0.5 mg-3 mg(2.5 mg base)/3 mL nebu Indications: Chronic bronchitis, unspecified chronic bronchitis type (HCC) Inhale 3 mL as instructed every 6 hours as needed. 60 Each 5 06/14/2024 Active Start: 08-06-2020 End: 03-30-2021 take 3 mL by inhalation every six hours as needed ipratropium-albuterol (DUONEB) 0.5 mg-3 mg(2.5 mg base)/3 mL nebu Indications: Chronic bronchitis, unspecified chronic bronchitis type (HCC) Inhale 3 mL as instructed every 6 hours as needed. 10 Vial 2 08/06/2020 03/30/2021 Discontinued Comment on above: Inhale 3 mL as instr ucted every 6 hours as needed. azithromycin 250 mg oral tablet (14 sources) Macrolide Antimicrobial Start: 01-09-20 End: 01-14-20 take 2 tablets by mouth once daily, then take 1 tablet by mouth once daily azithromycin (ZITHROMAX) 250 mg tablet Indications: COPD (chronic obstructive pulmonary disease) with chronic bronchitis (HCC) Take 2 tablets by mouth once daily for 1 day, THEN 1 tablet once daily for 4 days. 6 tablet 01/08/2025 01/13/2025 Active Start: 08-25-2024 End: 08-30-2024 take 2 tablets by mouth once daily, then take 1 tablet by mouth once daily azithromycin (ZITHROMAX) 250 mg tablet Indications: Respiratory infection Take 2 tablets by mouth once daily for 1 day, THEN 1 tablet once daily for 4 days. 6 tablet 08/25/2024 08/30/2024 Start: 07-21-2023 End: 07-28-2023 take 2-5 tablets by mouth once daily Azithromycin 250 mg tablet Discontinued 0 PO .COMPLEX 6 0 July 21, 2023 12:00am July 28, 2023 10:16am take 500 mg today (day 1), then 250 mg for 4 days (days 2-5) PO Start: 07-21-2023 End: 07-28-2023 Azithromycin Discontinued 0 PO .COMPLEX 6 July 20, 2023 11:00pm July 28, 2023 9:16am take 500 mg today (day 1), then 250 mg for 4 days (days 2-5) PO Budesonide-Formoterol (20 sources) Corticosteroid, beta2-Adrenergic Agonist Start: 07-30-2024 Budesonide-Formoterol (Symbicort) 160-4.5 mcg/actuation HFA aerosol inhaler Active 2 NMA INHALATION TWICE A DAY 3 July 30, 2024 8:23am administer with spacer, rinse mouth after each use Start: 07-30-2024 Budesonide-For moterol (Symbicort) 160-4.5 mcg/actuation HFA aerosol inhaler Active 2 NMA INHALATION TWICE A DAY 3 July 30, 2024 8:23am administer with spacer, rinse mouth after each use Start: 05-06-2024 End: 07-30-2024 Budesonide-Formoterol (Symbi fawad) 160-4.5 mcg/actuation HFA aerosol inhaler Discontinued 2 NMA INHALATION TWICE A DAY 3 May 06, 2024 8:24am July 30, 2024 8:25am administer with spacer, rinse mouth after each use Start: 05-06-2024 End: 07-30-2024 Budesonide-Formoterol (Symbi fawad) 160-4.5 mcg/actuation HFA aerosol inhaler Discontinued 2 NMA INHALATION TWICE A DAY May 06, 2024 8:24am July 30, 2024 8:25am administer with spacer, rinse mouth after each use Start: 10-04-2023 End: 05-28-2025 take 2 puff(s) by inhalation twice daily budesonide-formoterol (SYMBICORT) 160-4.5 mcg/actuation inhaler Inhale 2 Puffs as instructed two times a day. 1 Each 2 10/04/2023 05/28/2025 Discontinued (Discontinued by another Health Care Provider) Start: 10-04-2023 take 2 puff(s) by in halation twice daily budesonide-formoterol (SYMBICORT) 160-4.5 mcg/actuation inhaler Inhale 2 Puffs as instructed two times a day. 1 Each 2 10/04/2023 Active Start: 10-02-2023 End: 10-04-2023 take 2 puff(s) by inhalation twice daily budesonide-formoterol (SYMBICORT) 160-4.5 mcg/actuation inhaler Inhale 2 Puffs as instructed two times a day. 1 Each 2 10/02/2023 10/04/2023 Discontinued Start: 10-02-2023 take 2 puff(s) by in halation twice daily budesonide-formoterol (SYMBICORT) 160-4.5 mcg/actuation inhaler Inhale 2 Puffs as instructed two times a day. 1 Each 2 10/02/2023 Active Start: 02-03-2023 End: 05-06-2024 Budesonide-Formoterol (Symbi fawad) 160-4.5 mcg/actuation HFA aerosol inhaler Discontinued 2 NMA INHALATION TWICE A DAY 3 3 February 03, 2023 1:15pm May 06, 2024 8:24am administer with spacer, rinse mouth after each use Start: 02-03-2023 End: 05-06-2024 Budesonide-Formoterol (Symbi fawad) 160-4.5 mcg/actuation HFA aerosol inhaler Discontinued 2 NMA INHALATION TWICE A DAY 3 February 03, 2023 1:15pm May 06, 2024 8:24am administer with spacer, rinse mouth after each use Start: 02-03-2023 take 1 puff(s) by mo ut twice daily Budesonide-Formoterol (Symbicort) 160-4.5 mcg/actuation HFA aerosol inhaler Active 2 PUFF INHALATION TWICE A DAY 3 February 03, 2023 12:15pm administer with spacer, rinse mouth after each use Start: 02-03-2023 take 1 puff(s) by mo ut twice daily Budesonide-Formoterol (Symbicort) 160-4.5 mcg/actuation HFA aerosol inhaler Active 2 PUFF INHALATION TWICE A DAY 3 February 03, 2023 1:15pm administer with spacer, rinse mouth after each use Start: 03-07-2022 End: 02-03-2023 Budesonide-Formoterol (Symbi fawad) 160-4.5 mcg/actuation HFA aerosol inhaler Discontinued 2 NMA INHALATION TWICE A DAY 1 March 07, 2022 12:00am February 03, 2023 1:16pm administer with spacer, rinse mouth after each use Start: 03-07-2022 End: 02-03-2023 Budesonide-Formoterol (Symbi fawad) 160-4.5 mcg/actuation HFA aerosol inhaler Discontinued 2 NMA INHALATION TWICE A DAY March 07, 2022 12:00am February 03, 2023 1:16pm administer with spacer, rinse mouth after each use Start: 03-07-2022 End: 02-03-2023 take 1 puff(s) by mouth twice daily Budesonide-Formoterol (Symbicort) 160-4.5 mcg/actuation HFA aerosol inhaler Discontinued 2 PUFF INHALATION TWICE A DAY March 06, 2022 11:00pm February 03, 2023 12:16pm administer with spacer, rinse mouth after each use Start: 03-07-2022 End: 02-03-2023 take 1 puff(s) by mouth twice daily Budesonide-Formoterol (Symbicort) 160-4.5 mcg/actuation HFA aerosol inhaler Discontinued 2 PUFF INHALATION TWICE A DAY March 07, 2022 12:00am February 03, 2023 1:16pm administer with spacer, rinse mouth after each use Start: 03-07-2022 take 1 puff[facility] by [facility] Budesonide-Formoterol (Symbicort) 160-4.5 mcg/actuation HFA aerosol inhaler Active 2 PUFF INHALATION TWICE A DAY March 06, 2022 11:00pm administer with spacer, rinse mouth after each use Start: 03-07-2022 take 1 puff(s) by mo [facility] twice daily Budesonide-Formoterol (Symbicort) 160-4.5 mcg/actuation HFA aerosol inhaler Active 2 PUFF INHALATION TWICE A DAY March 07, 2022 12:00am administer with spacer, rinse mouth after each use Start: 02-01-2022 End: 02-02-2022 Budesonide-Formoterol (Symbi fawad) 160-4.5 mcg/actuation HFA aerosol inhaler Discontinued 2 NMA INHALATION TWICE A DAY 3 3 February 01, 2022 1:53pm February 02, 2022 3:12pm Chronic obstructive pulmonary disease, unspecified Start: 02-01-2022 End: 02-02-2022 Budesonide-Formoterol (Symbi fawad) 160-4.5 mcg/actuation HFA aerosol inhaler Discontinued 2 NMA INHALATION TWICE A DAY 3 February 01, 2022 1:53pm February 02, 2022 3:12pm Start: 02-01-2022 End: 02-02-2022 take 1 puff(s) by inhalation twice daily Budesonide-Formoterol (Symbicort) 160-4.5 mcg/actuation HFA aerosol inhaler Discontinued 2 PUFF INHALATION TWICE A DAY 3 February 01, 2022 12:53pm February 02, 2022 2:12pm Start: 02-01-2022 End: 02-02-2022 take 1 puff(s) by inhalation twice daily Budesonide-Formoterol (Symbicort) 160-4.5 mcg/actuation HFA aerosol inhaler Discontinued 2 PUFF INHALATION TWICE A DAY 3 February 01, 2022 1:53pm February 02, 2022 3:12pm Start: 11-05-2021 End: 02-01-2022 Budesonide-Formoterol (Symbi fawad) 160-4.5 mcg/actuation HFA aerosol inhaler Discontinued 2 NMA INHALATION TWICE A DAY 3 3 November 05, 2021 4:52pm February 01, 2022 1:54pm Chronic obstructive pulmonary disease, unspecified Start: 11-05-2021 End: 02-01-2022 Budesonide-Formoterol (Symbi fawad) 160-4.5 mcg/actuation HFA aerosol inhaler Discontinued 2 NMA INHALATION TWICE A DAY 3 November 05, 2021 4:52pm February 01, 2022 1:54pm Start: 11-05-2021 End: 02-01-2022 take 1 puff(s) by inhalation twice daily Budesonide-Formoterol (Symbicort) 160-4.5 mcg/actuation HFA aerosol inhaler Discontinued 2 PUFF INHALATION TWICE A DAY 3 November 05, 2021 3:52pm February 01, 2022 12:54pm Start: 11-05-2021 End: 02-01-2022 take 1 puff(s) by inhalation twice daily Budesonide-Formoterol (Symbicort) 160-4.5 mcg/actuation HFA aerosol inhaler Discontinued 2 PUFF INHALATION TWICE A DAY 3 November 05, 2021 4:52pm February 01, 2022 1:54pm Start: 11-05-2021 take 1 puff(s) by in halation twice daily Budesonide-Formoterol (Symbicort) 160-4.5 mcg/actuation HFA aerosol inhaler Active 2 PUFF INHALATION TWICE A DAY 3 November 05, 2021 4:52pm Start: 10-27-2020 End: 11-05-2021 Budesonide-Formoterol (Symbi fawad) 160-4.5 mcg/actuation HFA aerosol inhaler Discontinued 2 NMA INHALATION TWICE A DAY 3 3 October 27, 2020 12:17pm November 05, 2021 4:52pm Chronic obstructive pulmonary disease, unspecified Start: 10-27-2020 End: 11-05-2021 Budesonide-Formoterol (Symbi fawad) 160-4.5 mcg/actuation HFA aerosol inhaler Discontinued 2 NMA INHALATION TWICE A DAY 3 October 27, 2020 12:17pm November 05, 2021 4:52pm Start: 10-27-2020 End: 11-05-2021 take 1 puff(s) by inhalation twice daily Budesonide-Formoterol (Symbicort) 160-4.5 mcg/actuation HFA aerosol inhaler Discontinued 2 PUFF INHALATION TWICE A DAY 3 October 27, 2020 11:17am November 05, 2021 3:52pm Start: 10-27-2020 End: 11-05-2021 take 1 puff(s) by inhalation twice daily Budesonide-Formoterol (Symbicort) 160-4.5 mcg/actuation HFA aerosol inhaler Discontinued 2 PUFF INHALATION TWICE A DAY 3 October 27, 2020 12:17pm November 05, 2021 4:52pm Start: 09-07-2020 End: 09-29-2023 take 2 puff(s) by inhalation twice daily budesonide-formoterol (SYMBICORT) 160-4.5 mcg/actuation inhaler Inhale 2 Puffs as instructed twice daily. 1 Inhaler 5 09/07/2020 09/29/2023 Discontinued Start: 09-07-2020 take 2 puff(s) by in halation twice daily budesonide-formoterol (SYMBICORT) 160-4.5 mcg/actuation inhaler Inhale 2 Puffs as instructed twice daily. 1 Inhaler 5 09/07/2020 Active Start: 07-07-2020 End: 10-27-2020 take 1 puff(s) by inhalation twice daily Budesonide-Formoterol (Symbicort) 160-4.5 mcg/actuation HFA aerosol inhaler Discontinued 2 PUFF INHALATION TWICE A DAY July 07, 2020 10:41am October 27, 2020 12:21pm Start: 07-07-2020 End: 10-27-2020 Budesonide-Formoterol (Symbi fawad) 160-4.5 mcg/actuation HFA aerosol inhaler Discontinued 2 NMA INHALATION TWICE A DAY July 07, 2020 12:00am October 27, 2020 12:21pm Start: 07-07-2020 End: 10-27-2020 take 1 puff(s) by inhalation twice daily Budesonide-Formoterol (Symbicort) 160-4.5 mcg/actuation HFA aerosol inhaler Discontinued 2 PUFF INHALATION TWICE A DAY July 06, 2020 11:00pm October 27, 2020 11:21am Start: 07-07-2020 End: 10-27-2020 take 1 puff(s) by inhalation twice daily Budesonide-Formoterol (Symbicort) 160-4.5 mcg/actuation HFA aerosol inhaler Discontinued 2 PUFF INHALATION TWICE A DAY July 07, 2020 12:00am October 27, 2020 12:21pm Comment on above: Inhale 2 Puffs as in structed twice daily. Inhale 2 Puffs as in structed two times a day. clopidogrel 75 mg oral tablet (20 sources) [id number] Platelet Inhibitor Start: 1 End: 5 take 1 tablet by mouth once daily clopidogrel (PLAVIX) 75 mg tablet Indications: Coronary artery disease involving [place] coronary artery of [place] heart without angina pectoris Take 1 tablet by mouth once daily. 90 tablet 3 05/28/2025 Active Comment on above: Take 75 mg by mouth once daily. Take 1 tablet by bianka once daily. clotrimazole 10 mg oral lozenge (2 sources) Azole Antifungal Start: 5 Clotrimazole 10 mg eric Active 10 mg MUCOUS MEM 5 TIMES DAILY 70 14 0 May 05, 2025 12:00am May 18, 2025 12:00am doxycycline hyclate 100 mg oral tablet (20 sources) Tetracycline-class Drug Start: 4 End: 4 take 1 tablet by mouth twice daily doxycycline (VIBRA-TABS) 100 mg tablet Indications: COPD with exacerbation (HCC) Take 1 tablet by mouth two times a day for 10 days. 20 tablet 09/04/2024 09/14/2024 Active Start: 03-13-2023 End: 04-11-2023 take 1 tablet by mouth twice daily Doxycycline Hyclate 100 mg tablet Discontinued 100 mg PO TWICE A DAY 20 March 13, 2023 12:00am April 11, 2023 9:48am Start: 01-13-2023 End: 02-03-2023 take 1 capsule by mouth twice daily Doxycycline Hyclate 100 mg capsule Discontinued 100 mg PO TWICE A DAY 28 January 13, 2023 12:00am February 03, 2023 1:01pm Ajbypqtklmw-Nezvfvpfm-Ufuush er (2 sources) Start: 05-05-2025 Nyqbzmkprwu-Waeandvse-Cekqon er (Trelegy Ellipta) 200-62.5-25 mcg blister with device Active 1 NMA INHALATION daily May 05, 2025 12:00am furosemide 40 mg oral tablet (20 sources) Loop Diuretic Start: 01-07-2025 End: 05-05-2025 Furosemide 40 mg tablet Acti ve 20 mg PO EVERY MORNING as needed May 05, 2025 1:03pm Start: 10-01-2021 End: 05-28-2025 take 1 tablet by mouth once daily as needed furosemide (LASIX) 40 mg tablet Indications: Acute on chronic respiratory failure with hypoxia (HCC) Take 1 tablet by mouth once daily as needed (swelling.). 05/28/2025 Active Comment on above: Take 40 mg by mouth once daily. Take 1 tablet by bianka once daily. 12 hr guaiFENesin 1200 mg extended release oral tablet (3 sources) Start: 10-30-19 23 take 1 tablet by mouth twice daily, then take 1 tablet by mouth every twelve hours Guaifenesin (Mucus Relief Er) 1,200 mg Tablet Extended Release 12hr Active 1200 MG PO TWICE A DAY October 30, 2022 12:00am lidocaine 0.05 mg/mg medicated patch (4 sources) Antiarrhythmic, Amide Local Anesthetic Start: 07-13-20 22 apply 1 dose topically once daily Lidocaine (Lidoderm) 5 % adhesive patch,medicated Active 1 PATCH TOPICAL DAILY July 13, 2022 5:13pm leave on most painful area for up to 12 hrs losartan potassium 50 mg oral tablet (20 sources) Angiotensin 2 Receptor Alise Start: 10-07-20 End: 05-27-20 take 0.5 tablet by mouth once daily, then take 0.5 tablet by mouth once daily losartan (COZAAR) 100 mg tablet Indications: Essential hypertension Take 0.5 tablets by mouth once daily. 1/2 tab once daily 45 tablet 3 10/07/2022 02/29/2024 Discontinued Start: 11-15-2021 Losartan Activ e 50 MG PO daily November 15, 2021 3:23pm On Hold: Restart in 1 week or earlier if you check your blood pressure and your systolic blood pressure (top number) is greater than 140 Start: 11-05-2021 End: 06-29-2022 take 0.5 tablet by mouth once daily, then take 0.5 tablet by mouth once daily losartan (COZAAR) 100 mg tablet Indications: Essential hypertension Take 0.5 tablets by mouth once daily. 1/2 tab once daily 45 tablet 3 06/29/2022 Active Start: 07-12-2021 End: 11-05-2024 take 1 tablet by mouth once daily in the evening Losartan 50 mg tablet Active 50 mg PO EVERY EVENING 30 January 08, 2025 12:00am Start: 04-23-2018 End: 11-05-2021 take 1 tablet by mouth once daily Losartan (Cozaar) 100 mg tablet Discontinued 100 mg PO daily 90 September 30, 2019 3:45pm July 12, 2021 3:35pm Comment on above: Take 0.5 tablets by mouth once daily. 1/2 tab once daily magnesium oxide 500 mg oral tablet (20 sources) Start: 08-12-2024 take 1 tablet by mouth once daily Magnesium Oxide 500 mg magnesium tab Take 1 tablet by mouth once daily. 08/12/2024 Active metoprolol tartrate 50 mg oral tablet (20 sources) beta-Adrenergic Alise Start: 11-05-2024 take 1 tablet by mouth twice daily Metoprolol Tartrate 50 mg tablet Active 50 mg PO TWICE A DAY 180 November 05, 2024 1:00am Start: 06-19-2023 End: 11-05-2024 take 1 tablet by mouth once daily metoprolol succinate ER (TOPROL XL) 50 mg 24 hr tablet Indications: Coronary artery disease involving [place] coronary artery of [place] heart without angina pectoris Take 1 tablet by mouth once daily. [facility] 05/27/2024 Active Start: 02-01-2022 take 50 mg by mouth once daily Metoprolol Succinate Active 50 MG PO DAILY February 01, 2022 1:27pm Start: 12-22-2021 End: 05-27-2024 take 1 tablet by mouth twice daily Metoprolol Succinate 50 mg tablet extended release 24 hr Discontinued 50 mg PO TWICE A DAY 180 3 April 27, 2023 9:20am June 19, 2023 2:47pm Start: 04-23-2018 End: 01-18-2022 take 1 tablet by mouth twice daily Metoprolol Tartrate 50 mg tablet Discontinued 50 mg PO TWICE A DAY 180 3 September 30, 2019 3:45pm January 18, 2022 3:05pm Comment on above: Take 1 tablet by bianka twice daily. molnupiravir 200 mg capsule (1 source) Start: End: take 4 capsules by mouth twice daily molnupiravir 200 mg capsule Indications: Suspected COVID-19 virus infection Take 4 capsules by mouth twice daily for 5 days. 40 capsule 0 07/05/2022 07/10/2022 Active Comment on above: Take 4 capsules by [facility] twice daily for 5 days. mometasone furoate 1 mg/ml topical cream (1 source) Corticosteroid Start: mometasone (ELOCON) 0.1 % cream Indications: Other eczema Apply to affected area once daily. Rash of feet, lower legs. 45 g 05/28/2025 Active Nicotine (2 sources) Cholinergic Nicotinic Agonist Start: apply 1 dose transdermal route once daily, then apply 1 dose transdermal route once daily Nicotine Active 0 TD .COMPLEX 56 August 03, 2022 11:00pm apply 1-21 mg NICOTINE PATCH daily for 28 days; follow with 1-14 mg PATCH daily for 14 days, then 1-7mg PATCH daily for 14 days transdermal nystatin [id number] unt/ml oral suspension (20 sources) Polyene Antifungal Start: nystatin (MYCOSTATIN) 100,000 unit/mL suspension Indications: Thrush Take 5 mL by mouth four times daily. 1tsp swish in mouth for several minutes, then swallow (or expectorate) 4 times daily until gone. 200 mL 08/25/2024 Active Start: 05-14-2023 End: 05-24-2023 nystatin (MYCOSTATIN) 100,00 0 unit/mL suspension Indications: Thrush (oral) Take 5 mL by mouth four times daily for 10 days. 1tsp swish in mouth for several minutes, then swallow (or expectorate) 4 times daily until gone. 200 mL 0 05/14/2023 05/24/2023 Start: 07-04-2022 End: 07-14-2022 nystatin (MYCOSTATIN) 100,00 0 unit/mL suspension Indications: Oral candidiases Take 5 mL by mouth four times daily for 10 days. 1tsp swish in mouth for several minutes, then swallow (or expectorate) 4 times daily until gone. 200 mL 0 07/04/2022 07/14/2022 Active Comment on above: Take 5 mL by mouth f our times daily for 10 days. 1tsp swish in mouth for several minutes, then swallow (or expectorate) 4 times daily until gone. oseltamivir 75 mg oral capsule (3 sources) Neuraminidase Inhibitor Start: 3 take 1 capsule by mouth twice daily Oseltamivir (Tamiflu) 75 mg capsule Active 75 MG PO TWICE A DAY 6 October 30, 2022 12:00am potassium chloride 10 meq extended release oral capsule (20 sources) Start: take 1 capsule by mouth once daily Potassium Chloride 10 mEq capsule, extended release Active 10 meq PO daily May 05, 2025 12:00am Start: 06-19-2023 End: 01-06-2025 take 1 capsule by mouth once daily as needed Potassium Chloride 10 mEq capsule, extended release Discontinued 10 meq PO DAILY as needed for supplement June 19, 2023 12:00am January 06, 2025 12:42pm Start: 01-18-2023 End: 05-28-2025 take 1 capsule by mouth twice daily potassium chloride SR (MICRO-K) 10 mEq CR capsule Indications: Primary hypertension Take 1 capsule by mouth two times a day. 180 capsule 3 05/28/2025 Active Start: 10-07-2022 End: 01-18-2023 take 20 mEq by mouth once daily potassium chloride (KL OR-CON) 20 mEq packet Take 20 mEq by mouth once daily. 90 Packet 3 10/07/2022 01/18/2023 Discontinued (Cost of medication) Start: 05-25-2022 take 20 mEq by mouth once yasmine y potassium chloride (KLOR-CON) 20 mEq packet Take 20 mEq by mouth once daily. 90 Packet 3 05/25/2022 Active Start: 11-05-2021 End: 05-25-2022 Potassium Chloride (Klor-Con M20) 20 mEq tablet,ER particles/crystals Active 20 MEQ PO DAILY November 15, 2021 12:00am Start: 09-15-2021 End: 11-15-2021 take 1 capsule by mouth three times daily Potassium Chloride 8 mEq capsule, extended release Discontinued 8 meq PO THREE TIMES A DAY 270 October 15, 2021 12:31pm November 15, 2021 5:07pm supplement Start: 04-16-2020 End: 09-15-2021 take 1 capsule by mouth once daily Potassium Chloride 8 mEq capsule, extended release Discontinued 8 meq PO DAILY July 07, 2020 12:00am September 15, 2021 5:47pm Comment on above: Take 1 tablet by bianka th once daily. Take 20 mEq by mouth once daily. Take 1 capsule by mo uth twice daily. predniSONE 20 mg oral tablet (20 sources) Start: 01-08-2025 End: 01-11-2025 take 1 tablet by mouth once daily predniSONE (DELTASONE) 20 mg tablet Indications: COPD (chronic obstructive pulmonary disease) with chronic bronchitis (HCC) Take 1 tablet by mouth once daily for 3 days. 3 tablet 01/08/2025 01/11/2025 Active Start: 09-17-2024 End: 10-27-2024 take 2 tablets by mouth once daily Prednisone 20 mg tablet Discontinued 40 mg PO DAILY 20 10 0 September 17, 2024 1:00am October 27, 2024 3:48pm copd Start: 08-30-2024 End: 09-04-2024 take 4 tablets by mouth once daily predniSONE (DELTASONE) 10 mg tablet Take 4 tablets by mouth once daily for 5 days. 20 tablet 08/30/2024 09/04/2024 Active Start: 05-27-2024 End: 09-24-2024 take 4 tablets by mouth once daily, then take 3 tablets by mouth once daily, then take 2 tablets by mouth once daily, then take 1 tablet by mouth once daily predniSONE (DELTASONE) 10 mg tablet Indications: Achilles tendinitis of both lower extremities TAKE BY MOUTH 4 TABLETS DAILY FOR 2 DAYS, THEN 3 TABLETS DAILY FOR 2 DAYS, THEN 2 TABLETS DAILY FOR 2 DAYS, THEN 1 TABLET DAILY FOR 2 DAYS. 20 tablet 05/27/2024 07/23/2024 Discontinued (Course of therapy completed) Start: 03-30-2023 End: 04-11-2023 Prednisone 10 mg tablet Disc ontinued 10 mg PO daily 30 March 30, 2023 12:00am April 11, 2023 9:48am take 4 tabs for three days, then 3 tabs for three days, then 2 tabs for three days, then 1 tab for 3 days Start: 03-13-2023 End: 03-17-2023 take 3 tablets by mouth once daily at mealtime Prednisone 20 mg tablet Discontinued 60 mg PO daily 15 March 13, 2023 12:00am March 17, 2023 2:53pm administer with food or milk Start: 03-13-2023 End: 03-17-2023 take 60 mg by mouth once daily at mealtime Prednisone Discontinued 60 MG PO daily March 12, 2023 11:00pm March 17, 2023 1:53pm administer with food or milk Start: 10-28-2022 End: 12-22-2022 take 4 tablets by mouth once daily Prednisone 10 mg tablet Discontinued 10 mg PO DAILY 36 October 30, 2022 1:00am December 22, 2022 4:03pm 4 tablets x 4 days, 3 tablets x 4 days, 2 tablets x 4 days, and then go back to her home dosing of 10 mg daily Start: 08-03-2022 End: 08-15-2022 predniSONE (DELTASONE) 10 mg tablet Take 4 tabs daily x 3 days, then 3 tabs x 3 days, 2 tabs x 3 days, then 1 tab x3 days with food. 30 tablet 0 08/03/2022 08/15/2022 Start: 05-24-2022 End: 06-05-2022 predniSONE (DELTASONE) 10 mg tablet Indications: Primary osteoarthritis of right knee Take 4 tabs daily x 3 days, then 3 tabs x 3 days, 2 tabs x 3 days, then 1 tab x3 days with food. 30 tablet 0 05/24/2022 06/05/2022 Active Start: 02-23-2022 End: 03-07-2022 predniSONE (DELTASONE) 10 mg tablet Indications: Primary osteoarthritis of right knee Take 4 tabs daily x 3 days, then 3 tabs x 3 days, 2 tabs x 3 days, then 1 tab x3 days with food. 30 tablet 0 02/23/2022 03/07/2022 Active Start: 09-18-2020 End: 10-05-2020 Prednisone 10 mg tablet Disc ontinued 10 mg PO daily September 18, 2020 1:00am October 05, 2020 4:25pm take 4 tabs for three days, then 3 tabs for three days, then 2 tabs for three days, then 1 tab for 3 days Comment on above: Take 4 tabs daily x 3 days, then 3 tabs x 3 days, 2 tabs x 3 days, then 1 tab x3 days with food. rosuvastatin calcium 40 mg oral tablet (20 sources) HMG-CoA Reductase Inhibitor Start: take 1 tablet by mouth once daily rosuvastatin (CRESTOR) 40 mg tablet Indications: Hyperlipidemia, unspecified hyperlipidemia type Take 1 tablet by mouth once daily. 05/28/2025 Active Start: 07-13-2019 End: 08-14-2024 take 1 tablet by mouth at bedtime Rosuvastatin 40 mg tablet Discontinued 40 mg PO AT BEDTIME 90 July 22, 2024 12:23pm August 14, 2024 1:16pm Start: 12-24-2018 End: 03-30-2020 take 1 tablet by mouth once daily Rosuvastatin 20 mg tablet Discontinued 20 mg PO daily 30 December 25, 2018 11:49am September 30, 2019 3:45pm Start: 04-24-2018 End: 12-24-2018 take 1 tablet by mouth once daily Rosuvastatin 10 mg tablet Discontinued 10 mg PO daily 30 April 24, 2018 12:00am December 24, 2018 11:17am Comment on above: Take 1 tablet by bianka once daily. TRELEGY ELLIPTA 200-62.5-25 mcg inhalation powder (1 source) take 1 puff(s) by inhalation once daily TRELEGY ELLIPTA 200-62.5-25 mcg inhalation powder Indications: COPD (chronic obstructive pulmonary disease) with chronic bronchitis (HCC) Inhale 1 puff as instructed once daily. Active Completed/Discontinued Medications Medication Drug Class(es) Dates Sig (Normalized) Sig (Original) acetaminophen 325 mg / oxyCODONE hydrochloride 5 mg oral tablet (14 sources) Opioid Agonist Start: 12-02-2022 End: 12-22-2022 Oxycodone-Acetaminoph en 5-325 mg tablet Discontinued 1 - 2 {tbl} PO EVERY 6 HOURS as needed for pain 14 3 December 02, 2022 December 22, 2022 4:03pm Postoperative pain Other acute postprocedural pain Start: 12-02-2022 End: 12-22-2022 take 1 tablet by mouth every six hours Oxycodone-Acetaminophen Discontinued 1 - 2 TABLET PO EVERY 6 HOURS 14 December 02, 2022 December 22, 2022 3:03pm amoxicillin 875 mg / clavulanate 125 mg oral tablet (4 sources) Penicillin-class Antibacterial Start: 09-12-2024 End: 10-27-2024 Amoxicillin-Pot Clavulanate 875-125 mg tablet Discontinued 1 {tbl} PO TWICE A DAY 20 September 12, 2024 1:00am October 27, 2024 3:47pm amylase [id number] unt / lipase 84617 unt / protease [id number] unt delayed release oral capsule (11 sources) Start: 04-20-2023 End: 03-18-2024 take [id number] capsules by mouth three times daily at mealtime Wimcry-Vrwzujel-Iqvg ase (Creon) 36,000-114,000- 180,000 unit capsule,delayed release(DR/EC) Discontinued 1 NMA PO THREE TIMES A DAY 90 April 20, 2023 12:00am March 18, 2024 2:23pm administer with meals and/or snacks ascorbic acid 1000 mg oral tablet (1 source) Vitamin C End: 05-05-2021 take 1 tablet by mouth once daily Ascorbic Acid (VITAMIN C) 1,000 mg tablet Take 1,000 mg by mouth once daily. 05/05/2021 Discontinued aspirin 81 mg delayed release oral tablet (20 sources) Platelet Aggregation Inhibitor, Nonsteroidal Anti-inflammatory Drug Start: 03-18-2024 End: 07-30-2024 Aspirin (Adult Low Dose Aspirin) 81 mg tablet,delayed release (DR/EC) Discontinued 81 mg PO DAILY March 18, 2024 12:00am July 30, 2024 8:04am Start: 06-19-2023 End: 08-07-2023 Aspirin (Adult Low Dose Aspi rin) 81 mg tablet,delayed release (DR/EC) Discontinued 81 mg PO DAILY June 19, 2023 12:00am August 07, 2023 10:19am Start: 11-24-2022 End: 04-11-2023 take 1 tablet by mouth once daily Aspirin 81 mg Tablet,Delayed Release (Dr/Ec) Discontinued 81 mg PO DAILY November 24, 2022 1:00am April 11, 2023 9:48am Start: 04-23-2018 take 1 tablet by bianka th once daily Aspirin (Adult Aspirin Regimen) 81 mg tablet,delayed release (DR/EC) Active 81 MG PO daily April 22, 2018 11:00pm End: 05-27-2024 take 1 tablet by mouth once daily aspirin 81 mg chewable tablet Take 81 mg by mouth once daily. 05/27/2024 Discontinued Comment on above: Take 81 mg by mouth once daily. atorvastatin 80 mg oral tablet (20 sources) HMG-CoA Reductase Inhibitor Start: End: take 1 tablet by mouth at bedtime Atorvastatin 80 mg tablet Discontinued 80 mg PO AT BEDTIME April 23, 2018 12:00am April 24, 2018 9:47am 12 hr buPROPion hydrochloride 150 mg extended release oral tablet (5 sources) Aminoketone Start: End: take 1 tablet by mouth twice daily buPROPion SR (WELLBUTRIN SR) 150 mg 12 hr tablet Indications: Tobacco use disorder Take 1 tablet by mouth two times a day. 180 tablet 1 01/30/2025 05/28/2025 Discontinued cholecalciferol 0.05 mg oral capsule (20 sources) Vitamin D Start: End: take 1 capsule by mouth once daily Cholecalciferol (Vitamin D3) 2,000 unit capsule Discontinued 2000 U PO daily April 23, 2018 12:00am April 24, 2018 9:06am cholecalciferol, vitamin D3, (VITAMIN D3 ORAL) (11 sources) End: cholecalciferol, vitamin D3, (VITAMIN D3 ORAL) Take by mouth once daily. 05/09/2022 Discontinued (Course of therapy completed) cholecalciferol, vitamin D3, (VITAMIN D3 ORAL) Take by mouth once daily. 0 Active Comment on above: Take by mouth once d aily. cyclobenzaprine hydrochloride 10 mg oral tablet (20 sources) Muscle Relaxant Start: End: take 1 tablet by mouth three times daily as needed Cyclobenzaprine 10 mg tablet Discontinued 10 mg PO THREE TIMES A DAY as needed April 23, 2018 12:00am April 24, 2018 9:06am 24 hr dilTIAZem hydrochloride 180 mg extended release oral capsule (20 sources) Calcium Channel Alise Start: End: take 1 capsule by mouth once daily Diltiazem Hcl 180 mg capsule,extended release 24hr Discontinued 180 mg PO DAILY 1 January 18, 2022 12:00am February 14, 2022 3:17pm ezetimibe 10 mg oral tablet (20 sources) Dietary Cholesterol Absorption Inhibitor Start: End: take 1 tablet by mouth once daily ezetimibe (ZETIA) 10 mg tablet Indications: Hyperlipidemia, unspecified hyperlipidemia type Take 1 tablet by mouth once daily. 90 tablet 3 05/27/2024 05/28/2025 Discontinued (Non-Compliance) Comment on above: Take 1 tablet by bianka once daily. Fluad Quad 6170-7905(65yr up)(PF) 60 mcg (15 mcg x 4)/0.5mL IM syringe (flu vac (2 sources) Start: End: Fluad Quad [id number](65yr up)(PF) 60 mcg (15 mcg x 4)/0.5mL IM syringe (flu vac Discontinued 60 MCG IM ONCE 0.5 August 05, 2021 12:28pm August 05, 2021 2:39pm 30 actuat fluticasone furoate 0.1 mg/actuat / vilanterol 0.025 mg/actuat dry powder inhaler (20 sources) Corticosteroid, beta2-Adrenergic Agonist Start: End: Fluticasone Furoate-Vilanterol (Breo Ellipta) 100-25 mcg/dose blister with device Discontinued 1 NMA INHALATION DAILY 60 6 February 02, 2022 12:00am March 07, 2022 1:44pm Start: 02-02-2022 End: 03-07-2022 Fluticasone Furoate-Vilanter ol (Breo Ellipta) 100-25 mcg/dose blister with device Discontinued 1 INH INHALATION DAILY 60 February 01, 2022 11:00pm March 07, 2022 12:44pm Start: 04-23-2018 End: 04-23-2018 Fluticasone Furoate-Vilanter ol (Breo Ellipta) 100-25 mcg/dose blister with device Discontinued 1 NMA INHALATION daily April 23, 2018 12:00am April 23, 2018 7:47am Start: 04-23-2018 End: 04-23-2018 Fluticasone Furoate-Vilanter ol (Breo Ellipta) 100-25 mcg/dose blister with device Discontinued 1 INH INHALATION daily April 22, 2018 11:00pm April 23, 2018 6:47am hydroCHLOROthiazide 25 mg oral tablet (20 sources) Thiazide Diuretic Start: 07-13-2020 End: 09-09-2021 take 1 tablet by mouth once daily hydroCHLOROthiazide (HYDRODIURIL, ESIDRIX) 25 mg tablet Indications: Essential hypertension Take 1 tablet by mouth once daily. 90 tablet 3 07/13/2020 09/09/2021 Discontinued Start: 07-07-2020 End: 05-11-2021 take 2 tablets by mouth once daily Hydrochlorothiazide 12.5 mg tablet Discontinued 25 mg PO daily July 07, 2020 10:41am May 11, 2021 2:11pm Start: 07-07-2020 End: 05-11-2021 take 25 mg by mouth once daily Hydrochlorothiazide Discontinued 25 MG PO daily July 07, 2020 9:41am May 11, 2021 1:11pm Start: 04-24-2018 End: 07-07-2020 take 1 tablet by mouth once daily Hydrochlorothiazide 12.5 mg tablet Discontinued 12.5 mg PO daily 90 3 September 30, 2019 3:45pm July 07, 2020 10:42am 24 hr isosorbide mononitrate 30 mg extended release oral tablet (20 sources) Nitrate Vasodilator Start: 04-27-2023 End: 09-25-2023 Isosorbide Mononitrate 30 mg tablet extended release 24 hr Discontinued 30 mg PO DAILY 90 3 April 27, 2023 9:19am September 25, 2023 9:20am give 90 days at next fill please. Thanks. Start: 09-14-2021 End: 09-09-2024 take 1 tablet by mouth once daily, then take 1 tablet by mouth every twenty-four hours isosorbide mononitrate ER (IMDUR) 30 mg 24 hr tablet Take 30 mg by mouth once daily. 09/14/2021 Active Comment on above: Take 30 mg by mouth once daily. methylPREDNISolone 4 mg oral tablet (8 sources) Corticosteroid Start: 2022 End: 2022 take 1 tablet by mouth once Methylprednisolone (Medrol (Trey)) 4 mg tablets,dose pack Discontinued 4 mg PO per package directions 21 6 0 July 21, 2023 12:00am July 26, 2023 12:00am July 27, 2023 12:04am nitroglycerin 0.4 mg sublingual tablet (20 sources) Nitrate Vasodilator Start: 2020 End: 2021 Nitroglycerin 0.4 mg tablet, sublingual Discontinued 0.4 mg SL Q5M as needed for chest pain 21 01September 14, 2021 1:00am February 01, 2022 1:25pm do not exceed 3 doses per episode Start: 09-14-2021 End: 02-01-2022 Nitroglycerin Discontinued 0 .4 MG SL Q5M September 14, 2021 12:00am February 01, 2022 12:25pm do not exceed 3 doses per episode omeprazole 20 mg delayed release oral capsule (20 sources) Proton Pump Inhibitor Start: 05-24-2023 End: 05-27-2024 take 1 capsule by mouth once daily omeprazole (PRILOSEC) 20 mg capsule Indications: Gastroesophageal reflux disease, unspecified whether esophagitis present Take 1 capsule by mouth once daily. 90 capsule 3 05/24/2023 02/29/2024 Discontinued Start: 01-13-2023 End: 10-27-2024 take 1 capsule by mouth once daily Omeprazole 40 mg capsule,delayed release(DR/EC) Discontinued 40 mg PO DAILY January 13, 2023 12:00am October 27, 2024 3:48pm Start: 11-21-2021 End: 05-24-2023 take 2 capsules by mouth once daily omeprazole (PRILOSEC) 20 mg capsule Take 2 capsules by mouth once daily. 180 capsule 3 08/22/2022 05/24/2023 Discontinued Start: 05-11-2021 take 20 mg by mouth twice daily Omeprazole Active 20 MG PO TWICE A DAY May 10, 2021 11:00pm Comment on above: Take 2 capsules by m outh once daily. Take 1 capsule by mo uth once daily. oxaprozin 600 mg oral tablet (20 sources) Nonsteroidal Anti-inflammatory Drug Start: 2017 End: 2019 take 1 tablet by mouth once daily as needed Oxaprozin (Daypro) 600 mg tablet Discontinued 600 mg PO daily as needed April 24, 2018 9:06am March 30, 2020 11:16am pantoprazole 20 mg delayed release oral tablet (20 sources) Proton Pump Inhibitor Start: 2023 End: 2024 take 1 tablet by mouth once daily before breakfast pantoprazole DR (PROTONIX) 20 mg tablet Indications: Gastroesophageal reflux disease, unspecified whether esophagitis present Take 1 tablet by mouth daily before breakfast. Take on empty stomach, 1/2 hr before meal. 90 tablet 3 05/27/2024 05/28/2025 Discontinued penicillin v potassium 250 mg oral tablet (20 sources) Start: 2020 End: 2020 take 1 tablet by mouth three times daily Penicillin V Potassium 250 mg tablet Discontinued 250 mg PO THREE TIMES A DAY 30 May 24, 2021 12:00am August 05, 2021 1:08pm revefenacin 0.0583 mg/ml inhalation solution (8 sources) Start: 2022 End: 2023 Revefenacin (Yupelri) 175 mcg/3 mL solution for nebulization Discontinued 175 ug INHALATION DAILY 90 July 28, 2023 12:00am November 23, 2023 7:58am Chronic obstructive pulmonary disease, unspecified Roflumilast (20 sources) Phosphodiesterase 4 Inhibitor Start: 2023 End: 2023 take 1 tablet by mouth once daily Roflumilast (Daliresp) 500 mcg tablet Discontinued 500 ug PO DAILY 28 09July 30, 2024 12:00am October 27, 2024 3:48pm Start: 07-30-2024 End: 10-27-2024 take 1 tablet by mouth once daily Roflumilast (Daliresp) 500 mcg tablet Discontinued 500 ug PO DAILY July 30, 2024 12:00am October 27, 2024 3:48pm Start: 11-23-2023 End: 03-18-2024 take 1 tablet by mouth once daily Roflumilast (Daliresp) 500 mcg tablet Discontinued 500 ug PO DAILY 28 09November 23, 2023 7:56am March 18, 2024 2:22pm Start: 11-23-2023 End: 03-18-2024 take 1 tablet by mouth once daily Roflumilast (Daliresp) 500 mcg tablet Discontinued 500 ug PO DAILY November 23, 2023 7:56am March 18, 2024 2:22pm Start: 11-23-2023 take 1 tablet by bianka th once daily Roflumilast (Daliresp) 500 mcg tablet Active 500 MCG PO DAILY November 23, 2023 6:56am Start: 02-03-2023 End: 11-23-2023 take 1 tablet by mouth once daily Roflumilast (Daliresp) 500 mcg tablet Discontinued 500 ug PO DAILY 28 09February 03, 2023 12:00am November 23, 2023 7:56am Start: 02-03-2023 End: 11-23-2023 take 1 tablet by mouth once daily Roflumilast (Daliresp) 500 mcg tablet Discontinued 500 ug PO DAILY February 03, 2023 12:00am November 23, 2023 7:56am Start: 02-03-2023 End: 11-23-2023 take 1 tablet by mouth once daily Roflumilast (Daliresp) 500 mcg tablet Discontinued 500 MCG PO DAILY February 02, 2023 11:00pm November 23, 2023 6:56am Start: 02-03-2023 take 1 tablet by bianka th once daily Roflumilast (Daliresp) 500 mcg tablet Active 500 MCG PO DAILY February 03, 2023 12:00am 60 actuat tiotropium 0.0025 mg/actuat inhalation spray (20 sources) Anticholinergic Start: 11-05-2024 End: 05-05-2025 take 2.5 ug by inhalation once daily Tiotropium [place] (Spiriva Respimat) 2.5 mcg/actuation mist Discontinued 2 NMA INHALATION daily November 05, 2024 1:00am May 05, 2025 1:04pm Start: 07-30-2024 End: 10-27-2024 take 2.5 ug by inhalation once daily Tiotropium [place] (Spiriva Respimat) 2.5 mcg/actuation mist Discontinued 2 NMA INHALATION daily 11 09July 30, 2024 12:00am October 27, 2024 3:49pm administer at approximately the same time(s) each day Start: 04-11-2023 End: 11-23-2023 take 2.5 ug by inhalation once daily Tiotropium [place] (Spiriva Respimat) 2.5 mcg/actuation mist Discontinued 2 NMA INHALATION daily 11 04April 11, 2023 12:00am November 23, 2023 7:38am administer at approximately the same time(s) each day Start: 05-25-2022 End: 08-04-2022 take 2.5 ug by inhalation once daily in the morning Tiotropium [place] (Spiriva Respimat) 2.5 mcg/actuation mist Discontinued 2 NMA INHALATION EVERY MORNING 02 01May 25, 2022 12:00am August 04, 2022 12:53pm Start: 05-25-2022 End: 08-04-2022 take 2.5 ug by inhalation once daily in the morning Tiotropium [place] (Spiriva Respimat) 2.5 mcg/actuation mist Discontinued 2 NMA INHALATION EVERY MORNING May 25, 2022 12:00am August 04, 2022 12:53pm Start: 05-25-2022 End: 08-04-2022 take 1 puff(s) by inhalation once daily in the morning Tiotropium [place] (Spiriva Respimat) 2.5 mcg/actuation mist Discontinued 2 PUFF INHALATION EVERY MORNING May 25, 2022 12:00am August 04, 2022 12:53pm Start: 05-25-2022 End: 08-04-2022 take 1 puff(s) by inhalation once daily in the morning Tiotropium [place] (Spiriva Respimat) 2.5 mcg/actuation mist Discontinued 2 PUFF INHALATION EVERY MORNING May 24, 2022 11:00pm August 04, 2022 11:53am Start: 05-25-2022 take 1 puff(s) by in halation once daily in the morning Tiotropium [place] (Spiriva Respimat) 2.5 mcg/actuation mist Active 2 PUFF INHALATION EVERY MORNING May 25, 2022 12:00am Start: 09-28-2020 End: 08-05-2021 take 2.5 ug by inhalation once daily Tiotropium [place] (Spiriva Respimat) 2.5 mcg/actuation mist Discontinued 2 NMA INHALATION daily 3 October 27, 2020 12:19pm August 05, 2021 1:06pm administer at approximately the same time(s) each day Start: 09-28-2020 End: 08-05-2021 take 1 puff(s) by inhalation once daily Tiotropium [place] (Spiriva Respimat) 2.5 mcg/actuation mist Discontinued 2 PUFF INHALATION daily October 27, 2020 11:19am August 05, 2021 12:06pm administer at approximately the same time(s) each day varenicline 1 mg oral tablet (20 sources) Partial Cholinergic Nicotinic Agonist Start: 10-27-2020 End: 02-11-2021 take 1 tablet by mouth twice daily Varenicline Tartrate (Chantix) 1 mg tablet Discontinued 1 mg PO TWICE A DAY October 27, 2020 1:00am February 11, 2021 1:08pm Start: 09-11-2020 End: 01-04-2021 take 1 tablet by mouth once daily, then take 1 tablet by mouth twice daily, then take 1 tablet by mouth twice daily varenicline (CHANTIX STARTING MONTH BOX) 0.5 mg (11)- 1 mg (42) tablet Indications: Tobacco use disorder Take 1 tablet (0.5 mg) by mouth once daily for 3 days, then 1 tablet (0.5 mg) twice daily for 4 days, then one tablet (1 mg) twice daily. 53 tablet 09/11/2020 01/04/2021 Discontinued Problems Active Problems Problem Classification Problem Date Documented Da te Episodic/Chronic Abdominal pain (20 sources) Abdominal discomfort; Translations: [Unspecified abdominal pain] Episodic Allergic reactions (3 sources) Eczema; Translations: [Other specified dermatitis] Onset: 5 05-28-2025 Episodic Biliary tract disease (18 sources) Gallstone; Translations: [Calculus of gallbladder without cholecystitis without obstruction] Episodic Calculus of urinary tract (20 sources) Kidney stone; Translations: [Calculus of kidney] 05-17-2021 Episodic Cardiac dysrhythmias (12 sources) Multiple premature ventricular complexes; Translations: [Ventricular premature depolarization] 03-25-2023 Chronic Chronic obstructive pulmonary disease and bronchiectasis (20 sources) Chronic bronchitis; Translations: [Unspecified chronic bronchitis] Onset: 3 10-25-2021 Chronic Comment on above: FEV1 38% Chronic obstructive pulmonary disease and bronchiectasis (1 source) Chronic obstructive pulmonary disease and bronchiectasis; Translations: [COPD (chronic obstructive pulmonary disease) with chronic bronchitis (HCC)] Onset: 4 Complication of device; implant or graft (20 sources) Arteriosclerosis of coronary artery bypass graft; Translations: [Atherosclerosis of coronary artery bypass graft(s) without angina pectoris] Onset: 5 Chronic Comment on above: CABG x 2 STEPHENS-LAD, S VG-D1 10/14/96 SVG-D1 is occludedPTCA to distal RCA, PCI/stent to proximal rPDA, PTCA of distal LCx and OM2 ISR on 11/12/[address] Ulrich of [facility];PTCA to distal RCA, PCI/stent to proximal rPDA, PTCA of distal LCx and OM2 ISR on 11/12/[address] Ulrich of [facility]; Coronary atherosclerosis and other heart disease (20 sources) Coronary arteriosclerosis; Translations: [Atherosclerotic heart disease of [place] coronary artery without angina pectoris] Onset: 2 10-07-2013 Chronic Comment on above: PCI-JOEY-CX w/ 2.75 x 18 Promus 06/19/2008PCI-Stent to RCA w/ BX Velocity in 2000, [id number] w/ 2.75 x 20 mm Taxus and distally w/ 3.0 x 15 mm Pearler Stent 01/05/2006CABG x 2 STEPHENS-LAD, SVG-D1 10/14/96 SVG-D1 is occludedPTCA to distal RCA, PCI/stent to proximal rPDA, PTCA of distal LCx and OM2 ISR on 11/12/[address] Ulrich of [facility]; Atherosclerosis of n ative coronary artery and coronary artery bypass graft Coronary atherosclerosis and other heart disease (20 sources) Stented coronary artery; Translations: [Presence of coronary angioplasty implant and graft] Onset: 5 05-08-2015 Episodic Comment on above: Distal RCA: PTCA wit h a 3.5 mm balloonRight PDA proximal portion: PCI with a 2.75 x 15 mm Xience Skypoint JOEY (postdilated with a 3.0 NC); LCx distal into OM 2: PTCA with a 2.75 mm NC balloon0 per cardiac cath @ [facility]11/12/21; JOEY to RCA as described with residual narrowing per cath 09/29/21; PCI-JOEY-CX w/ 2.75 x 18 Promus 06/19/2008PCI-Stent to RCA w/ BX Velocity in 2000, [id number] w/ 2.75 x 20 mm Taxus and distally w/ 3.0 x 15 mm Pearler Stent 01/05/2006PTCA to distal RCA, PCI/stent to proximal rPDA, PTCA of distal LCx and OM2 ISR on 11/12/[address] Ulrich of [facility]; Disorders of lipid metabolism (20 sources) Hyperlipidemia; Translations: [Hyperlipidemia, unspecified] Onset: 2 08-04-2012 Chronic Esophageal disorders (20 sources) Gastroesophageal reflux disease; Translations: [Gastro-esophageal reflux disease without esophagitis] Onset: 3 05-24-2023 Chronic Essential hypertension (20 sources) Hypertensive disorder; Translations: [Essential (primary) hypertension] Onset: 2 Resolved: 7 01-11-2012 Chronic Immunizations and screening for infectious disease (2 sources) Suspected disease caused by 2019-nCoV; Translations: [Suspected COVID-19 virus infection] Episodic Influenza (20 sources) Influenza due to Influenza A virus; Translations: [Influenza due to other identified influenza virus with other respiratory manifestations] Episodic Mycoses (6 sources) Candidiasis of mouth; Translations: [Candidal stomatitis] Episodic Open wounds of head; neck; and trunk (6 sources) Laceration of forehead; Translations: [Laceration without foreign body of other part of head, initial encounter] 10-27-2024 Episodic Osteoarthritis (20 sources) Osteoarthritis of knee; Translations: [Unilateral primary osteoarthritis, unspecified knee] Onset: 2 Resolved: 5 05-08-2012 Chronic Other circulatory disease (1 source) Other specified disorders of arteries and arterioles; Translations: [Other specified disorders of arteries and arterioles] Onset: 5 Chronic Other circulatory disease (4 sources) H/O: hypertension; Translations: [Personal history of other diseases of the circulatory system] 09-25-2024 Episodic Other connective tissue disease (20 sources) Dupuytren contracture of right palm; Translations: [Palmar fascial fibromatosis [Dupuytren]] Onset: 6 11-05-2015 Episodic Other connective tissue disease (4 sources) Pain in lower limb; Translations: [Pain in right leg] 03-18-2024 Episodic Other diseases of kidney and ureters (1 source) Renal impairment; Translations: [Disorder of kidney and ureter, unspecified] 01-08-2025 Episodic Other diseases of kidney and ureters (6 sources) Acute renal insufficiency; Translations: [Disorder of kidney and ureter, unspecified] 10-27-2024 Episodic Other gastrointestinal disorders (18 sources) Constipation; Translations: [Constipation, unspecified] 10-25-2022 Episodic Other gastrointestinal disorders (6 sources) Constipation, unspecified; Translations: [Constipation, unspecified] Episodic Other gastrointestinal disorders (13 sources) Abdominal bloating; Translations: [Abdominal distension (gaseous)] 02-21-2023 Episodic Other lower respiratory disease (20 sources) Nodule of lung; Translations: [Solitary pulmonary nodule] Onset: 1 05-05-2021 Episodic Other lower respiratory disease (20 sources) Dyspnea on exertion; Translations: [Dyspnea, unspecified] 09-14-2021 Episodic Other lower respiratory disease (20 sources) Cough; Translations: [Cough] 05-12-2021 Episodic Other lower respiratory disease (1 source) Pleuritic pain; Translations: [Pleurodynia] Episodic Other lower respiratory disease (1 source) Pleurodynia; Translations: [Pleuritic chest pain] Onset: Episodic Other lower respiratory disease (20 sources) Dyspnea; Translations: [Dyspnea, unspecified] 11-02-2022 Episodic Other lower respiratory disease (18 sources) Hypoxia; Translations: [Hypoxemia] 10-28-2022 Episodic Other lower respiratory disease (1 source) Other forms of dyspnea; Translations: [Other respiratory abnormalities] 11-10-2023 Episodic Other lower respiratory disease (1 source) Respiratory tract infection; Translations: [Other specified respiratory disorders] 08-25-2024 Episodic Other lower respiratory disease (8 sources) Productive cough ; Translations: [Cough productive of purulent sputum] 01-08-2025 Episodic Other non-traumatic joint disorders (1 source) Shoulder pain; Translations: [Pain in right shoulder] Episodic Other non-traumatic joint disorders (1 source) Pain in right shoulder; Translations: [Pain in joint, shoulder region] 11-22-2022 Episodic Other skin disorders (2 sources) Cyst of skin; Translations: [Follicular cyst of the skin and subcutaneous tissue, unspecified] 05-29-2023 Episodic Other upper respiratory infections (19 sources) Acute upper respiratory infection; Translations: [Acute upper respiratory infection, unspecified] 07-21-2023 Episodic Pancreatic disorders (not diabetes) (16 sources) Exocrine pancreatic insufficiency; Translations: [Exocrine pancreatic insufficiency] 04-20-2023 Episodic Residual codes; unclassified (20 sources) Hypersomnia; Translations: [Hypersomnia, unspecified] 07-07-2020 Chronic Residual codes; unclassified (20 sources) Hypoxia; Translations: [Idiopathic sleep related nonobstructive alveolar hypoventilation] 10-27-2020 Chronic Comment on above: 2 L/min with sleep Residual codes; unclassified (11 sources) Idiopathic sleep related nonobstructive alveolar hypoventilation; Translations: [Idiopathic sleep related non-obstructive alveolar hypoventilation] Chronic Residual codes; unclassified (5 sources) Obstructive sleep apnea syndrome; Translations: [Obstructive sleep apnea (adult) (pediatric)] 01-20-2025 Chronic Residual codes; unclassified (18 sources) History of partial resection of colon; Translations: [Acquired absence of other specified parts of digestive tract] 11-24-2022 Episodic Comment on above: 2012 Residual codes; unclassified (7 sources) Acquired absence of other specified parts of digestive tract; Translations: [Acquired absence of intestine (large) (small)] Episodic Residual codes; unclassified (8 sources) Edema of lower extremity; Translations: [Localized edema] 01-08-2025 Episodic Respiratory failure; insufficiency; arrest (adult) (20 sources) [id number] respiratory failure; Translations: [Acute and chronic respiratory failure with hypoxia] Onset: 3 11-07-2022 Chronic Screening and history of mental health and substance abuse codes (6 sources) Patient encounter status; Translations: [Encounter for screening for depression] Onset: 5 05-27-2024 Episodic Spondylosis; intervertebral disc disorders; other back problems (20 sources) Degeneration of lumbar intervertebral disc; Translations: [Other intervertebral disc degeneration, lumbar region] Onset: 4 Resolved: 8 12-13-2013 Chronic Sprains and strains (1 source) Shoulder strain; Translations: [Strain of unspecified muscle, fascia and tendon at shoulder and upper arm level, right arm, initial encounter] Episodic Substance-related disorders (20 sources) Tobacco user; Translations: [Nicotine dependence, unspecified, uncomplicated] Onset: 2 10-25-2021 Chronic Comment on above: 1/2 pack/day Superficial injury; contusion (20 sources) Contusion of rib; Translations: [Contusion of unspecified front wall of thorax, initial encounter] Episodic Transient cerebral ischemia (11 sources) Transient cerebral ischemia; Translations: [Transient cerebral ischemic attack, unspecified] 08-07-2023 Chronic Unclassified (20 sources) High Risk Chronic Disease Home Monitoring Problem Onset: 3 03-16-2023 Unclassified (1 source) Subacute cough; Translations: [Subacute cough] Onset: 4 Unclassified (1 source) Other specified cough; Translations: [Other specified cough] Onset: 5 Viral infection (1 source) COVID-19; Translations: [COVID-19] Onset: 2 Past or Other Problems Problem Classification Problem Date Documented Da te Episodic/Chronic Cardiac dysrhythmias (20 sources) Tachycardia; Translations: [Tachycardia, unspecified] Onset: 09-12-2024 08-07-2023 Episodic Complication of device; implant or graft (20 sources) Significant coronary bypass graft disease; Translations: [Other mechanical complication of coronary artery bypass graft, initial encounter] Onset: 05-08-2015 05-08-2015 Episodic Diabetes mellitus without complication (2 sources) Disorder of glucose metabolism; Translations: [Other abnormal glucose] Onset: 08-12-2024 08-12-2024 Episodic Diverticulosis and diverticulitis (20 sources) Diverticulitis; Translations: [Diverticulitis of intestine, part unspecified, without perforation or abscess without bleeding] Onset: 08-20-2012 Resolved: 01-09-2014 01-09-2014 Chronic Nonspecific chest pain (2 sources) Chest wall pain; Translations: [Other chest pain] Onset: 08-12-2024 08-12-2024 Episodic Other connective tissue disease (20 sources) Bilateral achilles tendonitis; Translations: [Achilles tendinitis, right leg] Onset: 06-23-2020 Resolved: 05-28-2025 06-23-2020 Episodic Other connective tissue disease (1 source) Palmar fascial fibromatosis [Dupuytren]; Translations: [Dupuytren's contracture of right hand] Onset: 11-05-2015 Episodic Other diseases of kidney and ureters (2 sources) Disorder of kidney and ureter, unspecified; Translations: [Kidney insufficiency] Onset: 10-31-2024 Episodic Other lower respiratory disease (7 sources) Dyspnea, unspecified; Translations: [Other respiratory abnormalities] Onset: 09-12-2024 Episodic Other lower respiratory disease (7 sources) Hypoxemia; Translations: [Hypoxemia] Onset: 12-13-2024 Episodic Other lower respiratory disease (8 sources) Solitary pulmonary nodule; Translations: [Solitary pulmonary nodule] Onset: 05-05-2021 12-01-2022 Episodic Other lower respiratory disease (14 sources) Shortness of breath; Translations: [Shortness of breath] Onset: 10-15-2024 03-17-2023 Episodic Residual codes; unclassified (20 sources) Tobacco user; Translations: [Tobacco use] Onset: 11-06-2015 Resolved: 11-15-2016 11-15-2016 Episodic Spondylosis; intervertebral disc disorders; other back problems (20 sources) Sciatica; Translations: [Sciatica, unspecified side] Onset: 06-21-2012 Resolved: 04-17-2018 04-29-2015 Episodic Syncope (20 sources) Syncope and collapse; Translations: [Tussive syncope] Onset: 07-15-2022 Episodic Results Test Name Value Interpretation Reference Range Facility [facility] 05-28-2025 CNOV Office Visit (INTMWS ) -------- HORACE HENDERSON ([id number]) 1955 M Date Time Provider Department 05/28/25 1:40 PM GEORGE VÁZQUEZ INTMWS During your visit today, we recorded the following information about you: Pulse Blood pressure Weight Height 72/minute 157/81 78.7 kg 1.692 m George Vázquez MD 05/28/2025 2:56 PM Signed Horace Henderson is a 69 year old male here for a Medicare wellness visit. Medicare Health Risk Assessment General Health Fair Exercise: Minutes/Day 0 min Exercise: Days/Week 0 days Alcohol: Daily Use 4 or more times a week Alcohol: Drinks/Day 1 or 2 Alcohol: 6 or more drinks Never Feel off balance Yes Concerns: Teeth/Dentures No Concerns: Sexual function No Troubled by feelings Anxious Frequency: Eating healthy diet Not at all ADLs requiring help Housework Safety precautions in home/vehicle Yes Smoke, vape, chews tobacco Yes, but I'm not ready to quit Difficulty hearing No Difficulty seeing No Current Providers Specialists: I have reviewed specialist-related care of the patient in the medical record. Current care team: Patient Care Team: George Vázquez MD as PCP - General (Internal Medicine) Blanca Tilley APRN.WIRE DRAWING SETTER as Slide Developer (Internal Medicine) Outside specialists seen: Dayton Zarate DPM (Podiatry) Carrillo Malave MD (Cardiology) Neptali Orellana MD (Pulmonary) Arvind Hamilton MD (Ophthalmology) Medical/Family history review Reviewed and updated problem list, medical/surgical/family/ social history, medications, and allergies. Opioid use review Opioid Medications (last 90 days) No data to display Anxiety/Depression screening PHQ-2 Score: 0 (Lower risk for depression) YANNI-2 Score: 1 (Lower risk for anxiety) Recommendation: no further intervention at this time Cognitive screening Mini Cog Score: 3 Cognitive screening reviewed and No further action needed (score 3-5). Functional Observation Was the patient's Timed Up AND Go test unsteady or >= 12 seconds? No Advance Care Planning Patient was not able to provide a surrogate decision maker or written advance directives Measurements BP 157/81 (BP Site: Right Arm, BP Position: Sitting, BP Cuff Size: Large Adult) Pulse 72 Ht 169.2 cm (5' 6.6) Wt 78.7 kg (173 lb 8 oz) BMI 27.50 kg/m? Vision Screening: Follows with optometry/ophthalmology Right: 2040 Left: 20/ 30 Both: 30 Assessment/Plan Medicare annual wellness visit, subsequent (Z00.00) - Counseled on healthy diet and regular exercise - Fall avoidance information provided - Personalized prevention plan provided - Smoking cessation encouraged; discussed risks to health and quitting strategies. Patient is not ready to quit - Counseled patient on alcohol intake and associated health risks George Vázquez MD 05/28/2025 2:56 PM Signed Subjective Horace Henderson is a 69 year old male. ERIN Vu was doing reasonably well. He had a rash on his feet, and lower legs for several months. His family practice nurse practitioner sent off his toenail, but this came back negative for fungus. No treatment was recommended for the non pruritic rash. He had edema of both ankles off and on. He only took furosemide as needed, due his history of near syncope. We updated his medication list. He was now on rosuvastatin and Trelegy [facility], and Dr. Orellana sequentially. His dupuytren's contracture had recurred, especially the right hand. Review of Systems Constitutional: Negative for fatigue and fever. Respiratory: Positive for wheezing. Negative for cough and shortness of breath. Cardiovascular: Positive for leg swelling. Negative for chest pain and palpitations. Gastrointestinal: Negative for abdominal pain, constipation and diarrhea. Genitourinary: Negative for difficulty urinating. Skin: Positive for rash. 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) Ddd (Degenerative Disc Disease), Lumbar Failed Cabg (Coronary Artery Bypass Graft) Presence of Drug Coated Stent in Right Coronary Artery Presence of Drug Coated Stent in Left Circumflex Coronary Artery Dupuytren's Contracture of Right Hand Achilles Tendinitis of Both Lower Extremities Nodule of lower lobe of left lung (low dose lung CT) Status Post Insertion of Drug-Eluting Stent into Right Coronary Artery for Coronary Artery Disease Acute On Chronic Respiratory Failure With Hypoxia (Hcc) Gastroesophageal Reflux Disease Social History Tobacco Use Smoking status: Every Day Current packs/day: 0.50 Average packs/day: 0.5 packs/day for 40.9 years (20.5 ttl pk-yrs) Types: Cigarettes, Pipe Start date: 06/17/1984 Smokeless tobacco: Never Vaping Use Vaping stat (more content not included)... Normal [facility] Cardiology Visit Reporton Cardiology Visit Report [facility] [address] [place] [address] OFFICE VISIT Date of Service: 05/05/25 MR#: [id number] Acct: [id number] Name: HORACE HENDERSON Rep #: [id number] : 1955 Provider: JAMARCUS bryant Age/Sex: 69/M Location: [facility] Status: Signed HPI HPI History of Present Illness Details: Horace Henderson is a 69-year-old male who presents today for 2-week follow-up. Patient has a history of hypertension, hypercholesterolemia, coronary artery disease status post two-vessel bypass surgery in 1995 in which patient received STEPHENS to the LAD and a saphenous vein graft to the diagonal. Subsequent catheterization since then demonstrated an occluded saphenous vein graft to the diagonal. Patient has had multiple stents to his left circumflex and RCA with the last one occurring in 2020 at [facility]. Patient also has a history of COPD and MIKE in which he follows with pulmonology for. Patient was hospitalized in September 2020 for for a syncopal event in which patient was found to be dehydrated and hypotensive. Patient's ANAHI inhibitor and Lasix were discontinued and beta-alise dose was decreased at that time. Follow-up in office in October 2024, patient had elevated heart rate. Patient was instructed to increase metoprolol and then undergo cardiac Holter monitor to assess heart rate which showed average resting heart rate in the 90s. Patient was recently seen about 2 weeks ago with concerns of cough and shortness of breath. Patient had elevated BP and was recommended to reinstitute losartan. Chest x-ray at that time with findings consistent with COPD. Patient followed up with his PCP who prescribed him a Z-Trey and steroids. He denies chest, arm, jaw, or neck discomfort. He denies palpitations. He acknowledges bilateral lower extremity edema is unchanged over the last 6 months. He acknowledges shortness of breath with activity such as walking up 25 stairs as he walks into his apartment. He denies it walking from parking lot to our office. He denies shortness of breath at rest, orthopnea, cough, or PND. He denies lightheadedness, dizziness, near-syncope, syncope, weakness, or fatigue. Intake Vital Signs 11/05/24 13:06 01/20/25 14:53 05/05/25 12:58 Height 5 ft 7 in 5 ft 7 in 5 ft 7 in Weight: 178 lb BMI 27.8 BP 135/77 H Blood Pressure Location Lt brachial Position Sitting Respiration 16 Pulse 80 Pulse Source NIBP Intake Visit Reasons: 6 M FU Lead Java Programmer Required: No Is patient in pain?: No Allergies levofloxacin (From Levaquin) Adverse Reaction (Severe, Verified 05/05/25 13:02) tendonitis Medications ???Medication ???Instructions ???Recorded ???Confirmed ???Type clopidogrel 75 mg tablet (Plavix) 75 mg PO DAILY anti platelet #90 10/04/21 05/05/25 Rx tabs albuterol sulfate 90 mcg/actuation 2 puff inhalation Q6H PRN PRN 05/05/25 Rx aerosol inhaler Shortness Of Breath #8.5 grams budesonide-formoterol HFA 160 2 puff inhalation BID #3 ea 05/05/25 Rx mcg-4.5 mcg/actuation aerosol inhaler (Symbicort) rosuvastatin 40 mg tablet 40 mg PO QHS #90 tabs 08/14/2405/23 Rx isosorbide mononitrate 30 mg 30 mg PO DAILY #90 TABLETS 4 05/05/25 Rx tablet,extended release 24 hr ipratropium 0.5 mg-albuterol 3 mg 3 ml continuous nebulization Q6H 09/10/24 05/05/25 Rx (2.5 mg base)/3 mL nebulization PRN shortness of breath or soln wheezing #180 mL metoprolol tartrate 50 mg tablet 50 mg PO BID #180 tabs 11/05/24 Rx losartan 50 mg tablet 50 mg PO QPM #30 tabs 01/08/2505/23 Rx clotrimazole 10 mg eric 10 mg mucous membrane 5X/DAY 14 05/05/25 Rx days #70 tabs fluticasone fur. 200 mcg-umeclid 1 ea inhalation QDAY 05/05/2505/23 History 62.5 mcg-vilant 25 mcg inhalat.powder (Trelegy Ellipta) furosemide 40 mg tablet 20 mg PO QAM PRN 05/05/25 05/05/25 History potassium chloride 10 mEq 10 meq PO QDAY 05/05/25 05/05/25 H istory capsule,extended release Ejection fraction %: 60 Have you fallen in the past year?: [facility] History Essential hypertension Alcohol use History of steroid therapy Arthritis High cholesterol Smoker On home oxygen therapy COPD (chronic obstructive pulmonary disease) Shortness of breath on exertion History of pain when walking Hypertension History of echocardiogram History of stress test Cardiology follow-up encounter Gallstone Nodule of lower lobe of left lung Perforated diverticulum of large intestine Presence of stent in coronary artery ( 11/12/21) Easy bruising Excessive bleeding History of ulceration Gastric reflux History of diverticulitis Chronic bronchitis Nicotine dependence O (more content not included)... Normal [facility] Bilirubin directOrdered By: Bhupendra Asif on 05-03-2025 Bilirubin.direct [Mass/Vol] 0.13 mg/dL Normal 0.00-0.[address] [facility] Comment on above: Hemolysis present, R esults could be affected. Result Comment: Hemo lysis present, Results??could be affected. ?? Performed By: #### L 500.3400, L500.4100 #### [facility] [address] [place], [address] Bilirubin, totalOrdered By: Bhupendra Asif on 05-03-2025 Bilirubin [Mass/Vol] 0.54 mg/dL Normal 0.00-1.30 [facility] Comment on above: Performed By: #### L 500.3400, L500.4100 #### [facility] [address] [place], [address] Calculated very low density lipoprotein (VLDL) cholesterol measurementOrdered By: Bhupendra Asif on 05-03-2025 Calculated very low density lipoprotein (VLDL) cholesterol measurement 25 mg/dL 5-[address] [facility] LDL calc ser/plasOrdered By: Bhupendra Asif on 05-03-2025 Cholesterol in LDL [Mass/Vol] 116 mg/dL Normal [facility] Comment on above: Xpcmribucm=016-038 m g/dL & Higher Ybpm=767 mg/dL or greater Result Comment: Bord fttnwd=589-291 mg/dL Higher Oerd=452 mg/dL or greater Performed By: #### L 500.3400, L500.4100 #### [facility] [address] [place], [address] Lipid Profileon 05-03-2025 CHOL:HDL 3.[address] [facility] Comment on above: Performed By: #### L 500.3400, L500.4100 #### [facility] [address] [place], [address] Cholesterol in VLDL [Mass/Vol] 25 mg/dL Normal -[address] [facility] Comment on above: Performed By: #### L 500.3400, L500.4100 #### [facility] [address] [place], [address] Liver Profileon 05-03-2025 ALK PHOS 85 U/L Normal 40-[address] [facility] Comment on above: Performed By: #### L 500.3400, L500.4100 #### [facility] [address] [place], [address] T PROT 6.8 g/dL Normal 5.9-8.[address] [facility] Comment on above: Performed By: #### L 500.3400, L500.4100 #### [facility] [address] [place], [address] Liver ProfileOrdered By: David Asif on 05-03-2025 AST [Catalytic activity/Vol] 26 U/L Normal <=[address] [facility] Comment on above: Hemolysis present, R esults could be affected. Result Comment: Hemo lysis present, Results??could be affected. ?? Performed By: #### L 500.3400, L500.4100 #### [facility] [address] [place], [address] Screening total cholesterol/ high density lipoprotein (HDL) cholesterol ratioOrdered By: Bhupendra Asif on 05-03-2025 Cholesterol.total/David sterol in HDL [Mass ratio] 3.50 {ratio} [facility] Serum globulin measurementOr dered By: Bhupendra Asif on 05-03-2025 Globulin (S) [Mass/Vol] 2.8 g/dL Normal 2.2-4.2 [facility] Comment on above: Performed By: #### L 500.3400, L500.4100 #### [facility] [address] [place], [address] Serum or plasma alanine gomez otransferase (ALT) measurementOrdered By: Bhupendra Asif on 05-03-2025 ALT [Catalytic activity/Vol] 13 U/L Normal <=[address] [facility] Comment on above: Performed By: #### L 500.3400, L500.4100 #### [facility] [address] [place], [address] Serum or plasma albumin jimbo urement (mass/volume)Ordered By: [facility] Laya on 05-03-2025 Albumin [Mass/Vol] 4.0 g/dL Normal 3.4-4.8 [facility] Comment on above: Performed By: #### L 500.3400, L500.4102 #### [facility] [address] [place], [address] Serum or plasma alkaline atif sphatase measurementOrdered By: [facility] 05-[facility]-2025 ALP [Catalytic activity/Vol] 85 U/L 40-[address] [facility] Serum or plasma cholesterol in HDL measurement (mass/volume)Ordered By: [facility] on 05-03-2025 Cholesterol in HDL [Mass/Vol] 57 mg/dL Normal [facility] Comment on above: National Cholesterol Education Program (NCEP) guidelines:<40 mg/dL: Low HDL-cholesterol (major risk factor for CHD)>= 60 mg/dL: High HDL-cholesterol (negative risk factor for CHD)HDL-cholesterol is affected by a number of factors, e.g. smoking, exercise, hormones, sex and age. Result Comment: Karina onal Cholesterol Education Program (NCEP) guidelines: <40 mg/dL: Low HDL-cholesterol (major risk factor for CHD) >= 60 mg/dL: High HDL-cholesterol (negative risk factor for CHD) HDL-cholesterol is affected by a number of factors, e.g. smoking, exercise, hormones, sex and age. Performed By: #### L 500.3400, L500.4109 #### [facility] [address] [place], [place], [address] Serum or plasma cholesterol measurement (mass/volume)Ordered By: [facility] on 05-03-2025 Cholesterol [Mass/Vol] 198 mg/dL Normal <=200 [facility] Comment on above: Cholesterol level, D esirable <200 mg/dLBorderline high cholesterol 200-239 mg/dLHigh cholesterol >=240 mg/dLRecommendations of the NCEP Adult Treatment Panel for the following risk-cutoff thresholds for the [place] population. Result Comment: Chol esterol level, Desirable <200 mg/dL Borderline high cholesterol 200-239 mg/dL High cholesterol >=240 mg/dL Recommendations of the NCEP Adult Treatment Panel for the following risk-cutoff thresholds for the [place] population. Performed By: #### L 500.3400, L500.4100 #### [facility] [address] [place], [place], [address] Total proteinOrdered By: David Asif on 05-03-2025 Protein [Mass/Vol] 6.8 g/dL 5.9-8.4 [facility] Triglycerides measurementOrd ered By: Bhupendra Asif on 05-03-2025 Triglyceride [Mass/Vol] 125 mg/dL Normal [facility] Comment on above: The drugs N-Acetylcy steine and Metamizole may falsely depress this assay. Normal range: <150 mg/dLBorderline High: 150-199 mg/dLHigh: 200-499 mg/dLVery High: >500 mg/dL Result Comment: The drugs N-Acetylcysteine and Metamizole may falsely depress this assay. Normal range: <150 mg/dL Borderline High: 150-199 mg/dL High: 200-499 mg/dL Very High: >500 mg/dL Performed By: #### L 500.3400, L500.4100 #### [facility] [address] [place], [place], [address] Absolute lymphocyte countOrd ered By: Neptali Orellana on 02-14-2025 Lymphocytes Auto (Unsp spec) [#/Vol] 1.40 10*3/uL 0.83-4.[address] [facility] Absolute neutrophil countOrd ered By: Neptali Orellana on 02-14-2025 Neutrophils (Bld) [#/Vol] 5.8 10*3/uL 2.0-7.[address] [facility] Automated lymphocyte count a s percentage of total leukocytesOrdered By: Neptali Orellana on 02-14-2025 Lymphocytes/100 WBC Auto (Unsp spec) 17.6 % Low 19-[address] [facility] Basophil percentageOrdered B y: Neptali Orellana on 02-14-2025 Basophils/100 WBC (Bld) 0.4 % 0-1 [facility] CBC W/Diff, Automatedon 01-28 Absolute Lymph 1.40 X10 3/uL Normal 0.83-4.[address] [facility] Comment on above: Performed By: #### L 300.8000 #### [facility] [address] [place], [address] Absolute Neut 5.8 X10 3/uL Normal 2.0-7.[address] [facility] Comment on above: Performed By: #### L 300.8000 #### [facility] [address] [place], [address] Basophils/100 WBC (Bld) 0.4 % Normal 0-1 [facility] Comment on above: Performed By: #### L 300.8000 #### [facility] [address] [place], [address] Eosinophils/100 WBC (Bld) 0.9 % Normal 0-[address] [facility] Comment on above: Performed By: #### L 300.8000 #### [facility] [address] [place], [address] Erythrocyte distribution width (RBC) [Ratio] 13.2 % Normal 11.6-14.[address] [facility] Comment on above: Performed By: #### L 300.8000 #### [facility] [address] [place], [address] Hematocrit (Bld) [Volume fraction] 43.8 % Normal 40-[address] [facility] Comment on above: Performed By: #### L 300.8000 #### [facility] [address] [place], [address] Hemoglobin (Bld) [Mass/Vol] 15.0 g/dL Normal 13.0-16.[address] [facility] Comment on above: Performed By: #### L 300.8000 #### [facility] [address] [place], [address] IG% 0.400 Normal 0.0-0.[address] [facility] Comment on above: Result Comment: IG% - Immature Granulocytes (promyelocytes, myelocytes and metamyelocytes) > 1% indicates that a LEFT SHIFT is Present. Performed By: #### L 300.8000 #### [facility] [address] [place], [address] Lymphocytes/100 WBC (Bld) 17.6 % Low 19-[address] [facility] Comment on above: Performed By: #### L 300.8000 #### [facility] [address] [place], [address] MCH (RBC) [Entitic mass] 33.7 pg High 27.0-32.[address] [facility] Comment on above: Performed By: #### L 300.8000 #### [facility] [address] [place], [address] MCHC (RBC) [Mass/Vol] 34.2 g/dL Normal 32-36 [facility] Comment on above: Performed By: #### L 300.8000 #### [facility] [address] [place], [address] MCV (RBC) [Entitic vol] 98.4 fL High 80-94 [facility] Comment on above: Performed By: #### L 300.8000 #### [facility] [address] [place], [address] Monocytes/100 WBC (Bld) 7.4 % Normal 0-10 [facility] Comment on above: Performed By: #### L 300.8000 #### [facility] [address] [place], [address] Neutrophils/100 WBC (Bld) 73.3 % High 47-[address] [facility] Comment on above: Performed By: #### L 300.8000 #### [facility] [address] [place], [address] Nucleated RBC (Bld) [#/Vol] 0 10*3/uL Normal 0-[address] [facility] Comment on above: Performed By: #### L 300.8000 #### [facility] [address] [place], [address] Platelet mean volume (Bld) [Entitic vol] 9.3 fL Normal 6.2-12.[address] [facility] Comment on above: Performed By: #### L 300.8000 #### [facility] [address] [place], [address] Platelets (Bld) [#/Vol] 200 10*3/uL Normal 150-[address] [facility] Comment on above: Performed By: #### L 300.8000 #### [facility] [address] [place], [address] RBC (Bld) [#/Vol] 4.45 10*6/uL Low 4.6-6.2 [facility] Comment on above: Performed By: #### L 300.8000 #### [facility] [address] [place], [address] RDW SD 48.0 fl High 35.1-43.[address] [facility] Comment on above: Performed By: #### L 300.8000 #### [facility] [address] [place], [address] WBC (Bld) [#/Vol] 8.0 10*3/uL Normal 4.4-11.0 [facility] Comment on above: Performed By: #### L 300.8000 #### [facility] [address] [place], [address] Eosinophil percentageOrdered By: Neptali Orellana on 02-14-2025 Eosinophils/100 WBC (Bld) 0.9 % 0-[address] [facility] Erythrocyte distribution wid th ratioOrdered By: Neptali Orellana on 02-14-2025 Erythrocyte distribution width (RBC) [Ratio] 13.2 % 11.6-14.[address] [facility] Erythrocyte distribution wid th standard deviationOrdered By: Neptali Orellana on 02-14-2025 Erythrocyte distribution width (RBC) [Ratio] 48.0 fl High 35.1-43.[address] [facility] Hematocrit Auto (Bld) [Volum e fraction]Ordered By: Neptali Orellana on 02-14-2025 Hematocrit (Bld) [Volume fraction] 43.8 % 40-[address] [facility] Hemoglobin measurementOrdere d By: Neptali Orellana on 02-14-2025 Hemoglobin (Bld) [Mass/Vol] 15.0 g/dL 13.0-16.[address] [facility] Immature granulocytes/100 WB C Auto (Bld)Ordered By: Neptali Orellana on 02-14-2025 Immature granulocytes/100 WBC (Bld) 0.400 % 0.0-0.[address] [facility] Comment on above: IG% - Immature Granu locytes (promyelocytes, myelocytes and metamyelocytes) > 1% indicates that a LEFT SHIFT is Present. MCV (mean corpuscular volume ) determinationOrdered By: Neptali Orellana on 02-14-2025 MCV (RBC) [Entitic vol] 98.4 fL High 80-94 [facility] Mean corpuscular hemoglobin (MCH) determinationOrdered By: Neptali Orellana 02-14-2025 MCH (RBC) [Entitic mass] 33.7 pg High 27.0-32.[address] [facility] Mean corpuscular hemoglobin concentration (MCHC) determinationOrdered By: Neptali Orellana 02-14-2025 MCHC (RBC) [Mass/Vol] 34.2 g/dL 32-36 [facility] Mean platelet volume determi nationOrdered By: Neptali Orellana 02-14-2025 Platelet mean volume (Bld) [Entitic vol] 9.3 fL 6.2-12.[address] [facility] Monocyte percentageOrdered B y: Neptali Orellana on 02-14-2025 Monocytes/100 WBC (Bld) 7.4 % 0-10 [facility] Neutrophil percentageOrdered By: Neptali Orellana on 02-14-2025 Neutrophils/100 WBC (Bld) 73.3 % High 47-[address] [facility] Nucleated red blood cell per centageOrdered By: Neptali Orellana on 02-14-2025 Nucleated RBC/100 WBC (Bld) [Ratio] 0 % 0-[address] [facility] Platelet countOrdered By: Sierra Orellana on 02-14-2025 Platelets (Bld) [#/Vol] 200 10*3/uL 150-[address] [facility] RBC Auto (Bld) [#/Vol]Ordere d By: Neptali Orellana on 02-14-2025 RBC (Bld) [#/Vol] 4.45 10*6/uL Low 4.6-6.2 [facility] White blood cell (WBC) count Ordered By: Neptali Orellana on 02-14-2025 WBC (Bld) [#/Vol] 8.0 10*3/uL 4.4-11.0 [facility] Duplex ultrasound of carotid artery reportOrdered By: Salvador Kwok on 02-06-2025 Study report [facility] [address] [place] [address] Carotid Duplex Ultrasound 02/05/25 0958 MR#: [id number] Acct: [id number] Name: HORACE HENDERSON Rep #:[id number] : 1955 69 From: Salvador Hernández Attending Dr: RENEE Villagomez atus: REG CLI Ordering Dr: Bhupendra Asif Date: 02/05/25 Location: [facility] Sex: M C Admitted: Reason For Study Reason For Study: ASCVD, fatigue Rt. Velocities/BP Lt. Velocities/BP Prox CCA 60.7/12.6 cm/sec. Prox CCA 90.8/14.9 cm/sec. Mid CCA 56.0/17.3 cm/sec. Mid CCA 80.9/18.2 cm/sec. Dist CCA 57.0/13.5 cm/sec. Dist CCA 58.9/17.1 cm/sec. Prox ICA 35.4/12.2 cm/sec. Prox ICA 29.6/10.4 cm/sec. Mid ICA 52.6/18.1 cm/sec. Mid ICA 75.1/26.1 cm/sec. Dist ICA 71.2/21.2 cm/sec. Dist ICA 57.7/20.0 cm/sec. Rt. ICA/CCA = 1.3. Lt. ICA/CCA = 0.9. Prox ECA 74.0/14.6 cm/sec. Prox ECA 94.1/11.8 cm/sec. Rt. Vert. 44.0/11.0 cm/sec. Lt. Vert. 36.5/12.8 cm/sec. Right Extracranial There is heterogeneous, irregular atherosclerotic plaque noted in the right common carotid artery. There is heterogeneous, irregular atherosclerotic plaque noted in the right internal carotid artery. There is heterogeneous, irregular atherosclerotic plaque noted in the right external carotid artery. Antegrade flow is noted in the right vertebral artery. Left Extracranial There is heterogeneous, irregular atherosclerotic plaque noted in the left common carotid artery. There is heterogeneous, irregular atherosclerotic plaque noted in the left internal carotid artery. The left internal carotid artery is very tortuous. There is intimal thickening but no significant atherosclerotic plaque noted in the left external carotid artery. Antegrade flow is noted in the left vertebral artery. Procedure Carotid Duplex [id number]. This is a Carotid Duplex examination using B-mode, color flow and specral Doppler. Exam performed in department. VL/Carotid Duplex Ultrasound Interpretation Summary Mild (<50%) stenosis right extracranial internal carotid. Mild (<50%) stenosis left extracranial internal carotid. Patent and antegrade vertebrals bilaterally. Ordering Physician: Bhupendra Asif Referring Physician: George Vázquez M.D. Performed By: Jazmyn Darby RVT 02/06/25 0737 Date _ Salvador Kwok MD CC: Dr. George Vázquez MD; RENEE Villagomez ~ Date Dictated: 02/05/25957 Date Transcribed: 02/06/25736 University Lecturer: Signed [facility] Work Phone: Carotid Duplex Ultrasoundon 02-05-2025 Carotid Duplex Ultrasound [facility] [address] [place] [address] Carotid Duplex Ultrasound 02/05/25957 MR#: [id number] Acct: [id number] Name: HORACE HENDERSON Rep #: [id number] : 1955 69 From: Salvador Kwok MD Attending Dr: RENEE Villagomez Status: REG CL I Ordering Dr: Bhupendra Asif Date: 02/05/25 Location: [facility] Sex: M C Admitted: Reason For Study Reason For Study: ASCVD, fatigue Rt. Velocities/BP Lt. Velocities/BP Prox CCA 60.7/12.6 cm/sec. Prox CCA 90.8/14.9 cm/sec. Mid CCA 56.0/17.3 cm/sec. Mid CCA 80.9/18.2 cm/sec. Dist CCA 57.0/13.5 cm/sec. Dist CCA 58.9/17.1 cm/sec. Prox ICA 35.4/12.2 cm/sec. Prox ICA 29.6/10.4 cm/sec. Mid ICA 52.6/18.1 cm/sec. Mid ICA 75.1/26.1 cm/sec. Dist ICA 71.2/21.2 cm/sec. Dist ICA 57.7/20.0 cm/sec. Rt. ICA/CCA = 1.3. Lt. ICA/CCA = 0.9. Prox ECA 74.0/14.6 cm/sec. Prox ECA 94.1/11.8 cm/sec. Rt. Vert. 44.0/11.0 cm/sec. Lt. Vert. 36.5/12.8 cm/sec. Right Extracranial There is heterogeneous, irregular atherosclerotic plaque noted in the right common carotid artery. There is heterogeneous, irregular atherosclerotic plaque noted in the right internal carotid artery. There is heterogeneous, irregular atherosclerotic plaque noted in the right external carotid artery. Antegrade flow is noted in the right vertebral artery. Left Extracranial There is heterogeneous, irregular atherosclerotic plaque noted in the left common carotid artery. There is heterogeneous, irregular atherosclerotic plaque noted in the left internal carotid artery. The left internal carotid artery is very tortuous. There is intimal thickening but no significant atherosclerotic plaque noted in the left external carotid artery. Antegrade flow is noted in the left vertebral artery. Procedure Carotid Duplex [id number]. This is a Carotid Duplex examination using B-mode, color flow and specral Doppler. Exam performed in department. VL/Carotid Duplex Ultrasound Interpretation Summary Mild (<50%) stenosis right extracranial internal carotid. Mild (<50%) stenosis left extracranial internal carotid. Patent and antegrade vertebrals bilaterally. Ordering Physician: Bhupendra Asif Referring Physician: George Vázquez M.D. Performed By: Jazmyn Darby, ROBERT 02/06/2537 Date Salvador Kwok MD CC: Dr. George Vázquez MD; RENEE Villagomez Date Dictated: 02/05/25 0958 Date Transcribed: 02/06/25736 University Lecturer: Signed Normal [facility] Cardiology Visit Reporton Cardiology Visit Report [facility] [address] [place] [address] OFFICE VISIT Date of Service: 01/20/25 MR#: [id number] Acct: [id number] Name: HORACE HENDERSON Rep #: [id number] : 1955 Provider: RENEE Villagomez Age/Sex: 69/M Location: [facility] Status: Signed Agree with assessment and plan s outlined. HPI HPI History of Present Illness Details: Horace Henderson is a 69-year-old male who presents today for 2-week follow-up. Patient has a history of hypertension, hypercholesterolemia, coronary artery disease status post two-vessel bypass surgery in 1995 in which patient received STEPHENS to the LAD and a saphenous vein graft to the diagonal. Subsequent catheterization since then demonstrated an occluded saphenous vein graft to the diagonal. Patient has had multiple stents to his left circumflex and RCA with the last one occurring in 2020 at [facility]. Patient also has a history of COPD and MIKE in which he follows with pulmonology for. Patient was hospitalized in September 2020 for for a syncopal event in which patient was found to be dehydrated and hypotensive. Patient's ANAHI inhibitor and Lasix were discontinued and beta-alise dose was decreased at that time. Follow-up in office in October 2024, patient had elevated heart rate. Patient was instructed to increase metoprolol and then undergo cardiac Holter monitor to assess heart rate which showed average resting heart rate in the 90s. Patient was recently seen about 2 weeks ago with concerns of cough and shortness of breath. Patient had elevated BP and was recommended to reinstitute losartan. Chest x-ray at that time with findings consistent with COPD. Patient followed up with his PCP who prescribed him a Z-Trey and steroids. In office today, patient reports overall feeling better. Patient reports shortness of breath appears to be back at his baseline with his underlying pulmonary disease. Patient did have shortness of breath and dyspnea on exertion that previously led to stenting; however, patient reports current shortness of breath feels different. Patient reports generalized weakness. Bilateral lower extremity edema has been ongoing for months now. Patient reports he wakes up and edema is gone but when he is in an upright position all day, edema returns. Patient denies any erythema or open wounds related to the lower extremity edema. Patient reports he was recently started on BiPAP per pulmonology just a few days ago. Further ROS below. Intake Vital Signs 01/08/25 10:51 01/20/25 07:32 01/20/25 14:53 Height 5 ft 7 in 5 ft 7 in 5 ft 7 in Weight: 178 lb BMI 27.8 BP 121/79 H Blood Pressure Location Lt brachial Position Sitting Respiration 18 Pulse 82 Pulse Source Monitor Pulse Oximetry (%) 94 Intake Visit Reasons: 1 WK FU PER Lead Java Programmer Required: No Is patient in pain?: No Allergies levofloxacin (From Levaquin) Adverse Reaction (Severe, Verified 11/05/24 12:59) tendonitis Medications ???Medication ???Instructions ???Recorded ???Confirmed ???Type clopidogrel 75 mg tablet (Plavix) 75 mg PO DAILY anti platelet #90 10/04/21 01/20/25 Rx tabs albuterol sulfate 90 mcg/actuation 2 puff inhalation Q6H PRN PRN 01/20/25 Rx aerosol inhaler Shortness Of Breath #8.5 grams budesonide-formoterol HFA 160 2 puff inhalation BID #3 ea 01/20/25 Rx mcg-4.5 mcg/actuation aerosol inhaler (Symbicort) rosuvastatin 40 mg tablet 40 mg PO QHS #90 tabs 08/14/24 Rx isosorbide mononitrate 30 mg 30 mg PO DAILY #90 TABLETS 4 01/20/25 Rx tablet,extended release 24 hr ipratropium 0.5 mg-albuterol 3 mg 3 ml continuous nebulization Q6H 09/10/24 01/20/25 Rx (2.5 mg base)/3 mL nebulization PRN shortness of breath or soln wheezing #180 mL metoprolol tartrate 50 mg tablet 50 mg PO BID #180 tabs 11/05/24 Rx tiotropium bromide 2.5 2 puff inhalation QDAY 11/05/24 History mcg/actuation mist for inhalation (Spiriva Respimat) furosemide 40 mg tablet 20 mg PO QAM 01/07/25 01/20/25 His tory losartan 50 mg tablet 50 mg PO QPM #30 tabs 01/08/25 Rx Have you fallen in the past year?: Yes [facility] Medical History (Updated 01/20/25 @ 16:42 by ERNEE Villagomez) Essential hypertension Alcohol use History of steroid therapy Arthritis High cholesterol Smoker On home oxygen therapy COPD (chronic obstructive pulmonary disease) Shortness of breath on exertion History of pain when walking Hypertension History of echocardiogram History of stress test Cardiology follow-up encounter Gallstone Nodule of lower lobe of left lung Perforated diverticulum of large intestine Presence of stent in coronary artery ( 11/12/21) Easy bruising Excessive bleeding (more content not included)... Normal [facility] 12 Lead EKG performed by [facility] on 01-08-2025 12 Lead EKG performed by [place] [id number] [place] [address] 12 Lead EKG performed by [facility] 01/08/25 1008 MR#: [id number] Acct: [id number] Name: HORACE HENDERSON Rep #: [id number] : 1955 69 From: Carrillo Malave MD Attending Dr: Dr. Carrillo Malave MD Status: DE P AMB Ordering Dr: Carrillo Malave MD Date: 01/08/25 Location: [facility] Sex: M C Admitted: BMS/12 Lead EKG performed by [facility] ECG Report Interpretation --Sinus Rhythm -Right bundle branch block with left axis -bifascicular block. ABNORMAL Electronically signed on 01/08/2025 at 10:[address] Carrillo Malave Master[employer] Software Version [id number] 01/08/25 1057 Date Carrillo Malave MD CC: Dr. George Vázquez MD Date Dictated: 01/08/251007 Date Transcribed: 01/08/251007 University Lecturer: Signed Normal [facility] Basic metabolic 2000 panelon 01-08-2025 Anion gap [Moles/Vol] 8 mmol/L Normal 8-15 [facility] Comment on above: Order Comment: Speci men Type: BLOOD SPECIMENOrdering Facility: [facility] Address: [address] [place] [address] Performed By: #### 2 4321-2 ####[facility] LABCLIA [id number] [address] [address] [place] Calcium [Mass/Vol] 10.2 mg/dL Normal 8.5-10.2 [facility] Comment on above: Order Comment: Speci men Type: BLOOD SPECIMENOrdering Facility: [facility] Address: [address] [place] [address] Performed By: #### 2 4321-2 ####[facility] LABCLIA [id number] [place] [id number] [place] Chloride [Moles/Vol] 99 mmol/L Normal 98-107 [facility] Comment on above: Order Comment: Speci men Type: BLOOD SPECIMENOrdering Facility: [facility] Address: [address] [place] [address] Performed By: #### 2 4321-2 ####[facility] LABCLIA [id number] [place] [address] [place] CO2 [Moles/Vol] 34 mmol/L High 22-30 [facility] Comment on above: Order Comment: Speci men Type: BLOOD SPECIMENOrdering Facility: [facility] Address: [address] [place] [address] Performed By: #### 2 4321-2 ####[facility] LABCLIA [id number] [place] [id number] [place] Creatinine [Mass/Vol] 1.09 mg/dL Normal 0.73-1.22 [facility] Comment on above: Order Comment: Speci men Type: BLOOD SPECIMENOrdering Facility: [facility] Address: [address] [place] [address] Performed By: #### 2 4321-2 ####[facility] LABCLIA [id number] [place] [id number] [place] Creatinine and Glomerular filtration rate.predicted panel (S/P/Bld) 73 mL/min/1.73m??? Normal >=60 [facility] Comment on above: Order Comment: Ashly oakley Type: BLOOD SPECIMENOrdering Facility: [facility] Address: [address] [place] [address] Result Comment: Shelli mated Glomerular Filtration Rate (eGFR) is calculated using the 2020 CKD-EPI creatinine equation. This equation utilizes serum creatinine, sex, and age as parameters. The creatinine assay has traceable calibration to isotope dilution-mass spectrometry. Refer to KDIGO guidelines for clinical interpretation. In patients with unstable renal function, e.g. those with acute kidney injury, the eGFR may not accurately reflect actual GFR. Performed By: #### 2 4321-2 ####[facility] [id number] [place] [address] [place] Glucose [Mass/Vol] 94 mg/dL Normal 74-99 [facility] Comment on above: Order Comment: Ashly oakley Type: BLOOD SPECIMENOrdering Facility: [facility] Address: [address] [place] [address] Result Comment: The [place] Diabetes [employer] (ADA) provides guidance for cutoff values for fasting glucose and random glucose. The ADA defines fasting as no caloric intake for at least 8 hours. Fasting plasma glucose results between 100 to 125 mg/dL indicate increased risk for diabetes (prediabetes). Fasting plasma glucose results greater than or equal to 126 mg/dL meet the criteria for diagnosis of diabetes. In the absence of unequivocal hyperglycemia, results should be confirmed by repeat testing. In a patient with classic symptoms of hyperglycemia or hyperglycemic crisis, random plasma glucose results greater than or equal to 200 mg/dL meet the criteria for diagnosis of diabetes. Reference: Standards of Medical Care in Diabetes 2016, [place] [employer]. Diabetes Care. 2016.39(Suppl 1). Performed By: #### 2 4321-2 ####[facility] [id number] [place] [address] [place] Potassium [Moles/Vol] 3.6 mmol/L Low 3.7-5.1 [facility] Comment on above: Order Comment: Ashly oakley Type: BLOOD SPECIMENOrdering Facility: [facility] Address: [address] [place] [id number] Performed By: #### 2 4321-2 ####[facility] LABCLIA [id number] [place] [id number] [place] Sodium [Moles/Vol] 141 mmol/L Normal 136-144 [facility] Comment on above: Order Comment: Speci men Type: BLOOD SPECIMENOrdering Facility: [facility] Address: [address] [place] [address] Performed By: #### 2 4321-2 ####[facility] LABCLIA [id number] [place] [id number] [place] Urea nitrogen [Mass/Vol] 13 mg/dL Normal 9-24 [facility] Comment on above: Order Comment: Speci men Type: BLOOD SPECIMENOrdering Facility: [facility] Address: [address] [place] [address] Performed By: #### 2 4321-2 ####[facility] LABIA [id number] [place] [id number] [place] CNOVon 01-08-2025 CNOV Office Visit (INTMWS ) -------- HORACE HENDERSON ([id number]) 1955 M Date Time Provider Department 01/08/25 3:40 PM GEORGE VÁZQUEZ INTMWS During your visit today, we recorded the following information about you: Temperature Pulse Respiration Blood pressure 97.9 degrees 110/minute 20/minute 130/78 Weight 79.5 kg George Vázquez MD 01/08/2025 4:22 PM Signed This note was created using NoteWriter. Subjective Horace Henderson is a 69 year old male. He's had a productive cough with green phlegm, and increased dyspnea on exertion for the past 1.5 to 2 weeks. He had no upper respiratory infection symptoms, fever, or chills. 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 He sees Dr. Orellana for chronic obstructive pulmonary disease. His oxygen level drops to 88% with activity, but he was not using his portable O2. He used his nocturnal oxygen. He tried to keep up with fluid intake but wondered if he was dehyrdated. Review of Systems Constitutional: Positive for fatigue. Negative for chills, diaphoresis and fever. HENT: Negative for congestion and sore throat. Respiratory: Positive for cough, shortness of breath and wheezing. Cardiovascular: Positive for leg swelling. Negative for chest pain and palpitations. Gastrointestinal: Negative for diarrhea, nausea and vomiting. Neurological: Positive for light-headedness. Negative for headaches. 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) Ddd (Degenerative Disc Disease), Lumbar Failed Cabg (Coronary Artery Bypass Graft) Presence of Drug Coated Stent in Right Coronary Artery Presence of Drug Coated Stent in Left Circumflex Coronary Artery Dupuytren's Contracture of Right Hand Achilles Tendinitis of Both Lower Extremities Nodule of lower lobe of left lung (low dose lung CT) Status Post Insertion of Drug-Eluting Stent into Right Coronary Artery for Coronary Artery Disease Acute On Chronic Respiratory Failure With Hypoxia (Hcc) Gastroesophageal Reflux Disease Social History Tobacco Use Smoking status: Every Day Current packs/day: 0.50 Average packs/day: 0.5 packs/day for 40.6 years (20.3 ttl pk-yrs) Types: Cigarettes, Pipe Start date: 06/17/1984 Smokeless tobacco: Never Vaping Use Vaping status: Never Used Substance Use Topics Alcohol use: Yes Alcohol/week: 9.2 standard drinks of alcohol Types: 4 Standard drinks or equivalent, 4 Mixed Drinks per week Comment: 2 mixed drinks 2 times per week. Drug use: No Frequency: 2.0 times per week Current Outpatient Medications Medication Sig nystatin (MYCOSTATIN) 100,000 unit/mL suspension Take 5 mL by mouth four times daily. 1tsp swish in mouth for several minutes, then swallow (or expectorate) 4 times daily until gone. Magnesium Oxide 500 mg magnesium tab Take 1 tablet by mouth once daily. albuterol HFA (PROAIR HFA) 90 mcg/actuation inhaler Inhale 2 Puffs as instructed every 6 hours as needed for wheezing/shortness of breath. ipratropium-albuterol (DUONEB) 0.5 mg-3 mg(2.5 mg base)/3 mL nebu Inhale 3 mL as instructed every 6 hours as needed. clopidogrel (PLAVIX) 75 mg tablet Take 1 tablet by mouth once daily. ezetimibe (ZETIA) 10 mg tablet Take 1 tablet by mouth once daily. metoprolol succinate ER (TOPROL XL) 50 mg 24 hr tablet Take 1 tablet by mouth once daily. From [facility]. potassium chloride SR (MICRO-K) 10 mEq CR capsule Take 1 capsule by mouth two times a day. pantoprazole DR (PROTONIX) 20 mg tablet Take 1 tablet by mouth daily before breakfast. Take on empty stomach, 1/2 hr before meal. losartan (COZAAR) 50 mg tablet Take 1 tablet by mouth once daily. Per [facility]. budesonide-formoterol (SYMBICORT) 160-4.5 mcg/actuation inhaler Inhale 2 Puffs as instructed two times a day. furosemide (LASIX) 40 mg tablet Take 1 tablet by mouth once daily. isosorbide mononitrate ER (IMDUR) 30 mg 24 hr tablet Take 30 mg by mouth once daily. No current facility-administered medications for this visit. Objective BP 130/78 (BP Site: Left Arm, BP Position: Sitting, BP Cuff Size: Large Adult) Pulse 110 Temp 36.6 ?C (97.9 ?F) (Temporal) Resp 20 Wt 79.5 kg (175 lb 4.3 oz) BMI 27.45 kg/m? Physical Exam Constitutional: General: He is not in acute distress. Appearance: He is not diaphoretic. HENT: Nose: No congestion or rhinorrhea. Mouth/Throat: Mouth: Mucous membranes are dry. Pharynx: No oropharyngeal exudate or posterior oropharyngeal erythema. Eyes: Conjunctiva/sclera: Conjunctivae normal. Cardiovascular: Rate and Rhythm: Regular rhythm. Tachycardia present. Heart sounds: No murmur heard. No gallop. Pulmonary: Effort: Pr (more content not included)... Normal [facility] CNPNon 01-08-2025 CNPN Telephone (INTMWS) -------- BEATRIZHORACE ([id number]) 1955 M Date Time Provider Department 01/08/25 GEORGE VÁZQUEZ INTMWS During your visit today, we recorded the following information about you: Ihsan Christensen, TOMMIE 01/08/2025 11:24 AM Signed Patient reports he saw Dr. Malave at [facility] today. Dr. Malave did a EKG and CXR. Reports Dr. Malave advised him he was going to send CXR to pcp as it appears pt may have pneumonia and need an AB. Pt reports he has productive green cough, and SOB. No other symptoms. Please advise patient. [phone] Pat Richey LPN 01/08/2025 11:45 AM Signed Attempted to call Patient, no answer, wanting to schedule an appt to be evaluated by Dr. Vázquez. Dodie Amaya LPN, RN 01/08/2025 11:51 AM Signed Pt called and is scheduled today with Dr Vázquez at 340 pm. Dodie Sarah RN Allergies As of Date: 01/08/2025 Noted Allergy Reaction LEVOFLOXACIN 06/01/2020 14 - Other: See Comments Comments: Tachycardia. Achilles tendonitis. Date Reviewed: 09/12/2024 Reviewed by: Pat Richey LPN - Fully Assessed Reason for Visit: Patient concern [Other] Prescriptions as of 01/08/2025 - nystatin (MYCOSTATIN) 100,000 unit/mL suspension Take 5 mL by mouth four times daily. 1tsp swish in mouth for several minutes, then swallow (or expectorate) 4 times daily until gone. - Magnesium Oxide 500 mg magnesium tab Take 1 tablet by mouth once daily. - albuterol HFA (PROAIR HFA) 90 mcg/actuation inhaler Inhale 2 Puffs as instructed every 6 hours as needed for wheezing/shortness of breath. - ipratropium-albuterol (DUONEB) 0.5 mg-3 mg(2.5 mg base)/3 mL nebu Inhale 3 mL as instructed every 6 hours as needed. - clopidogrel (PLAVIX) 75 mg tablet Take 1 tablet by mouth once daily. - ezetimibe (ZETIA) 10 mg tablet Take 1 tablet by mouth once daily. - metoprolol succinate ER (TOPROL XL) 50 mg 24 hr tablet Take 1 tablet by mouth once daily. From [facility]. - potassium chloride SR (MICRO-K) 10 mEq CR capsule Take 1 capsule by mouth two times a day. - pantoprazole DR (PROTONIX) 20 mg tablet Take 1 tablet by mouth daily before breakfast. Take on empty stomach, 1/2 hr before meal. - losartan (COZAAR) 50 mg tablet Take 1 tablet by mouth once daily. Per [facility]. - budesonide-formoterol (SYMBICORT) 160-4.5 mcg/actuation inhaler Inhale 2 Puffs as instructed two times a day. - furosemide (LASIX) 40 mg tablet Take 1 tablet by mouth once daily. - isosorbide mononitrate ER (IMDUR) 30 mg 24 hr tablet Take 30 mg by mouth once daily. Problem List As Of Date 01/08/2025 Noted Resolved HTN (hypertension) [I10] 01/11/2012 CAD (coronary artery disease) [I25.10] 01/11/2012 S/P CABG x 2 [Z95.1] 10/14/1995 OA (osteoarthritis) of knee [M17.9] 05/08/2012 Diverticulitis [K57.92] 01/09/2014 Sciatica [M54.30] 06/21/2012 04/29/2015 Hyperlipidemia [E78.5] 08/04/2012 Perforated diverticulum of large intestine [K57*08/20/2012 10/27/2012 Tobacco use disorder [F17.200] 10/27/2012 COPD (chronic obstructive pulmonary disease) wi*10/07/2013 Primary localized osteoarthrosis, lower leg [M1*11/04/2013 04/29/2015 Knee 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 [Z96.659] 11/04/2013 04/29/2015 Lumbar radiculopathy [M54.16] 12/13/2013 04/17/2018 DDD (degenerative disc disease), lumbar [M51.36*12/13/2013 Lumbar disc displacement without myelopathy [M5*04/04/2014 04/17/2018 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*05/08/2015 Presence of drug coated stent in right coronary*05/08/2015 Presence of drug coated stent in left circumfle*05/08/2015 Dupuytren's contracture of right hand [M72.0] 11/05/2015 Tobacco abuse [Z72.0] 11/06/2015 11/15/2016 Essential hypertension [I10] 11/10/2016 11/15/2016 Achilles tendinitis of both lower extremities [*06/23/2020 Nodule of lower lobe of left lung (low dose severino*05/05/2021 Status post insertion of drug-eluting stent int*09/30/2021 Acute on chronic respiratory failure with hypox*10/30/2022 Gastroesophageal reflux disease [K21.9] 05/24/2023 Encounter Status:Closed by DODIE SARAH on 01/08/25 [facility] Cardiology Visit Reporton Cardiology Visit Report [facility] [place] [address] OFFICE VISIT Date of Service: 01/08/25 MR#: [id number] Acct: [id number] Name: HORACE HENDERSON Rep #: [id number] : 1955 Provider: Dr. Carrillo mirza MD Age/Sex: 69/M Location: [facility] Status: Signed with Addenda ADDENDUM by Dr. Carrillo Malave MD on 01/08/25 at 1052 HPI History of Present Illness Details: ECG in the office today showed sinus rhythm at 70 bpm right bundle branch block and left anterior fascicular block. His prior ECG had shown sinus tachycardia with the same right bundle branch block and left anterior fascicular block. Assessment and Plan Assessment and Plan (1) Cough productive of purulent sputum: Status: Acute (2) Atherosclerosis of coronary artery bypass graft without angina pectoris: Status: Chronic Qualifiers: [place] vs. transplanted heart: [place] heart Qualified Code(s): I25.810 - Atherosclerosis of coronary artery bypass graft(s) without angina pectoris Comment: CABG x 2 STEPHENS-LAD, SVG-D1 10/14/96 SVG-D1 is occluded PTCA to distal RCA, PCI/stent to proximal rPDA, PTCA of distal LCx and OM2 ISR on 11/12/[address] Ulrich of [facility];PTCA to distal RCA, PCI/stent to proximal rPDA, PTCA of distal LCx and OM2 ISR on 11/12/[address] Ulrich of [facility]; (3) Essential hypertension: Status: Acute (4) Leg edema: Status: Acute Orders: Orders Chest PA and Lateral Today R05.8 - Other specified cough Medications: New losartan 50 mg PO QPM 30 tabs 11RF Plan Details Follow Up: 2 Weeks (With Bhupendra, [facility]) 01/08/25 1052 Date Carrillo Malave MD cc: * Signed HPI HPI History of Present Illness Details: Patient was scheduled to come in to have blood pressure and EKG performed today. Upon arrival the patient was complaining of cough and shortness of breath with a green sputum production. I went in to see the patient and he is had some chronic 1-2+ lower extremity edema he is having progressive shortness of breath he originally had called in reporting that his heart rate was up in the 125 range and sometimes down around 90-100. He was concerned that the metoprolol was not keeping his heart rate under control. He has been off of his furosemide and potassium replacement since September this was stopped along with his losartan due to low blood pressure. The patient was instructed to reinstitute his Lasix at 20 mg daily and he was brought into the office today for blood pressure and heart rate evaluation. The patient's blood pressure in office is 159/89 with a heart rate of 70 he took his metoprolol this morning. The patient does complain of chronic shortness of breath he does continue to smoke but he is now has audible wheezing and is complaining of green sputum production. He denies any fevers or chills. Intake Vital Signs 11/06/24 10:49 01/08/25 10:43 Height 5 ft 7 in Weight: 180 lb BP 159/89 H Blood Pressure Location Lt brachial Position Sitting Respiration 20 H Pulse 100 70 Pulse Oximetry (%) 95 Intake Visit Reasons: 2 M FU Allergies levofloxacin (From Levaquin) Adverse Reaction (Severe, Verified 11/05/24 12:59) tendonitis Have you fallen in the past year?: No [facility] Medical History Essential hypertension Alcohol use History of steroid therapy Arthritis High cholesterol Smoker On home oxygen therapy COPD (chronic obstructive pulmonary disease) Shortness of breath on exertion History of pain when walking Hypertension History of echocardiogram History of stress test Cardiology follow-up encounter Gallstone Nodule of lower lobe of left lung Perforated diverticulum of large intestine Presence of stent in coronary artery ( 11/12/21) Easy bruising Excessive bleeding History of ulceration Gastric reflux History of diverticulitis Chronic bronchitis Nicotine dependence Osteoarthritis DDD (degenerative disc disease), lumbar Atherosclerosis of coronary artery of [place] heart without angina pectoris Atherosclerosis of coronary artery bypass graft without angina pectoris Hyperlipidemia Surgical History History of laparoscopic cholecystectomy S/P laparoscopic cholecystectomy Status post double vessel coronary artery bypass Presence of coronary angioplasty implant and graft ( 09/29/21) Hx of left cataract extraction Hx of right cataract extraction History of cardiac catheterization History of colectomy S/p bilateral carpal tunnel release H/O coronary artery bypass surgery (10/14/96) History of left knee replacement History of appendectomy History of tonsillectomy History (more content not included)... Normal [facility] Chest PA and Lateralon 01-08 Chest PA and Lateral [facility] Imaging Services [address] [place] [address] Chest PA and Lateral MR#: [id number] Acct: [id number] Name: BEATRIZHORCAE MARCOS Rep #: [id number] : 1955 M 69 From: Jesus Amanda MD PCP: Dr. George Vázquez MD Status: REG CLI Study: Chest PA and Lateral Date of Exam: 01/08/25 Exam# [id number] Ordering Dr: Carrillo Malave MD EXAM: XR Chest, 2 Views CLINICAL INDICATION: SOB COUGH WITH SPUTUM TECHNIQUE: Frontal and lateral views of the chest. COMPARISON: No relevant prior studies available. FINDINGS: LUNGS AND PLEURAL SPACES: Hyperlucent lungs. Flattening of the diaphragm. No consolidation. No pneumothorax. HEART: Unremarkable. No cardiomegaly. MEDIASTINUM: Unremarkable. Normal mediastinal contour. BONES/JOINTS: Unremarkable. No acute fracture. RAD/Chest PA and Lateral IMPRESSION: Suggestion of COPD. Reading Location: [facility] CC: Dr. Carrillo Malave MD; Dr. George Vázquez MD University Lecturer: Signed Normal [facility] BNP (brain natriuretic pepti de measurement)Ordered By: Neptali Orellana on 11-27-2024 Natriuretic peptide B (Bld) [Mass/Vol] 118.8 pg/mL High 0-[address] [facility] BNP,B-Type NATRIURETIC PEPTI Ebony 11-27-2024 Natriuretic peptide B (Bld) [Mass/Vol] 118.8 pg/mL High 0-[address] [facility] Comment on above: Performed By: #### L 300.8000 #### [facility] Laboratory [address] [place], [place], [id number] Basic Metabolic Profile (BMP )on 11-27-2024 BUN/CRE 19.6 RATIO Normal 10-[address] [facility] Comment on above: Performed By: #### L 300.8000 #### [facility] Laboratory [address] [place], [address] CA,Total 9.0 mg/dL Normal 8.5-10.[address] [facility] Comment on above: Performed By: #### L 300.8000 #### [facility] Laboratory [address] [place], [place], [id number] Chloride [Moles/Vol] 103 mmol/L Normal 98-107 [facility] Comment on above: Performed By: #### L 300.8000 #### [facility] Laboratory [address] [place], [address] CO2 [Moles/Vol] 28.0 mmol/L Normal 21.0-32.[address] [facility] Comment on above: Performed By: #### L 300.8000 #### [facility] Laboratory [address] [place], [address] Creatinine [Mass/Vol] 1.07 mg/dL Normal 0.70-1.30 [facility] Comment on above: Result Comment: The validity of the calculated GFR GFRAA in patients over 70 years has not been determined. Clinical correlation is essential. Performed By: #### L 300.8000 #### [facility] Laboratory [address] [place], [address] EST GFR - AA 88 mL/min Normal >[address] [facility] Comment on above: Result Comment: Afri can Togolese GFR Calc Performed By: #### L 300.8000 #### [facility] Laboratory [address] [place], [address] GAP 6 Normal 5-[address] [facility] Comment on above: Performed By: #### L 300.8000 #### [facility] Laboratory [address] [place], [address] GFR/1.73 sq M.predicted among non-blacks MDRD (S/P/Bld) [Vol rate/Area] 73 mL/min/{1.73_m2} Normal >[address] [facility] Comment on above: Result Comment: Non- GFR Calc Performed By: #### L 300.8000 #### [facility] Laboratory [address] [place], [address] Glucose [Mass/Vol] 112 mg/dL High 74-106 [facility] Comment on above: Result Comment: Fast ing Glucose result from 100 to 125 mg/dL suggests IMPAIRED HOMEOSTASIS per A.D.A. criteria. Performed By: #### L 300.8000 #### [facility] Laboratory [address] [place], [address] Potassium [Moles/Vol] 3.9 mmol/L Normal 3.5-5.1 [facility] Comment on above: Performed By: #### L 300.8000 #### [facility] Laboratory [address] [place], [address] Sodium [Moles/Vol] 137 mmol/L Normal 136-145 [facility] Comment on above: Performed By: #### L 300.8000 #### [facility] Laboratory [address] [place], [address] Urea nitrogen [Mass/Vol] 21 mg/dL High 7-[address] [facility] Comment on above: Performed By: #### L 300.8000 #### [facility] Laboratory [address] [place], [address] Blood urea nitrogen (BUN)/cr eatinine ratioOrdered By: Neptali Orellana on 11-27-2024 Urea nitrogen/Creatinine [Mass ratio] 19.6 mg/mg 10-[address] [facility] CTA Chest W/WO Contraston CTA Chest W/WO Contrast [facility] Imaging Services [address] [place] [address] CTA Chest W/WO Contrast MR#: [id number] Acct: [id number] Name: HORACE HENDERSON Rep #: [id number] : 1955 M 69 From: Byron elliott MD PCP: Dr. George Vázquez MD Status: REG CLI Study: CTA Chest W/WO Contrast Date of Exam: 11/27/24 Exam# [id number] Ordering Dr: Neptali Orellana MD PROCEDURE: CTA CHEST W/WO CONTRAST Shortness of breath. Prior CABG and cardiac stents. REASON FOR EXAM: Shortness of breath. Prior CABG in cardiac stents. TECHNIQUE: CTA imaging of the chest with intravenous contrast. 3D reconstructions. CONTRAST: COMPARISON: None. FINDINGS: Hardware: None. Lymph nodes: No mediastinal hilar or axillary lymphadenopathy. Heart: Coronary artery calcifications are noted. Prior CABG. RV/LV Diameter Ratio: N/A Thoracic Aorta: No thoracic aortic aneurysm or dissection. Atherosclerotic plaque formation. Pulmonary Vessels: No evidence of acute pulmonary emboli through the major subsegmental branches. Most Proximal Level of Embolus (if embolus present): N/A Lungs and Airways: The lungs are normally expanded and clear. Pleura: No pleural effusion. No pneumothorax. Upper Abdomen: Small left adrenal adenoma. Bones: Degenerative changes. CT/CTA Chest W/WO Contrast IMPRESSION: NORMAL CHEST CTA. NO EVIDENCE OF ACUTE PULMONARY EMBOLISM. One or more dose reduction techniques were used (e.g., Automated exposure control, adjustment of the mA and/or kV according to patient size, use of iterative reconstruction technique). Reading Location: [place] [address] CC: Dr. Neptali Orellana MD; Dr. George Vázquez MD University Lecturer: Signed Normal [facility] Carbon dioxide measurementOr dered By: Neptali Orellana on 11-27-2024 CO2 [Moles/Vol] 28.0 mmol/L 21.0-32.[address] [facility] Chloride measurementOrdered By: Neptali Orellana on 11-27-2024 Chloride [Moles/Vol] 103 mmol/L 98-107 [facility] Estimated glomerular filtrat ion rate (GFR) AmericanOrdered By: Neptali Orellana on 11-27-2024 Estimated GFR (MDRD) Amer 88 mL/min >[address] [facility] Comment on above: GFR Calc Glomerular filtration rate ( GFR) estimationOrdered By: Neptali Orellana on 11-27-2024 Estimated GFR (MDRD) Non-Af Amer 73 mL/min >[address] [facility] Comment on above: Non- GFR Calc Glucose measurementOrdered B y: Neptali Orellana on 11-27-2024 Glucose [Mass/Vol] 112 mg/dL High 74-106 [facility] Comment on above: Fasting Glucose resu lt from 100 to 125 mg/dL suggests IMPAIRED HOMEOSTASIS per A.D.A. criteria. Potassium measurementOrdered By: Neptali Orellana on 11-27-2024 Potassium [Moles/Vol] 3.9 mmol/L 3.5-5.1 [facility] Serum anion gap measurementO rdered By: Neptali Orellana on 11-27-2024 Anion gap [Moles/Vol] 6 mmol/L 5-15 [facility] Serum or plasma calcium jimbo urement (mass/volume)Ordered By: Neptali Orellana on 11-27-2024 Calcium [Mass/Vol] 9.0 mg/dL 8.5-10.1 [facility] Serum or plasma creatinine m easurement (mass/volume)Ordered By: Neptali Orellana on 11-27-2024 Creatinine [Mass/Vol] 1.07 mg/dL 0.70-1.30 [facility] Comment on above: The validity of the calculated GFR & GFRAA in patients over 70 years has not been determined. Clinical correlation is essential. Serum or plasma urea nitroge n measurement (mass/volume)Ordered By: Neptali Orellana on 11-27-2024 Urea nitrogen [Mass/Vol] 21 mg/dL High 7-[address] [facility] Sodium levelOrdered By: Braxton Orellana on 11-27-2024 Sodium [Moles/Vol] 137 mmol/L 136-145 [facility] Absolute neutrophil countOrd ered By: Neptali Orellana on 11-26-2024 Neutrophils (Bld) [#/Vol] 5.3 10*3/uL 2.0-7.[address] [facility] Basophil percentageOrdered B y: Neptali Orellana on 11-26-2024 Basophils/100 WBC (Bld) 0.4 % 0-1 [facility] CBC W/Diff, Automatedon 10-31 Absolute Lymph 2.06 X10 3/uL Normal 0.83-4.[address] [facility] Comment on above: Performed By: #### L 100.0100 #### [facility] Laboratory [address] [place], [address] Absolute Neut 5.3 X10 3/uL Normal 2.0-7.[address] [facility] Comment on above: Performed By: #### L 100.0100 #### [facility] Laboratory [address] [place], [address] Basophils/100 WBC (Bld) 0.4 % Normal 0-1 [facility] Comment on above: Performed By: #### L 100.0100 #### [facility] Laboratory [address] [place], [address] Eosinophils/100 WBC (Bld) 0.2 % Normal 0-[address] [facility] Comment on above: Performed By: #### L 100.0100 #### [facility] Laboratory [address] [place], [address] Erythrocyte distribution width (RBC) [Ratio] 15.2 % High 11.6-14.[address] [facility] Comment on above: Performed By: #### L 100.0100 #### [facility] Laboratory [address] [place], [address] Hematocrit (Bld) [Volume fraction] 40.7 % Normal 40-[address] [facility] Comment on above: Performed By: #### L 100.0100 #### [facility] Laboratory [address] [place], [address] Hemoglobin (Bld) [Mass/Vol] 13.8 g/dL Normal 13.0-16.[address] [facility] Comment on above: Performed By: #### L 100.0100 #### [facility] Laboratory [address] [place], [address] IG% 0.700 Normal 0.0-0.[address] [facility] Comment on above: Result Comment: IG% - Immature Granulocytes (promyelocytes, myelocytes and metamyelocytes) > 1% indicates that a LEFT SHIFT is Present. Performed By: #### L 100.0100 #### [facility] Laboratory [address] [place], [address] Lymphocytes/100 WBC (Bld) 24.7 % Normal 19-[address] [facility] Comment on above: Performed By: #### L 100.0100 #### [facility] Laboratory [address] [place], [address] MCH (RBC) [Entitic mass] 32.4 pg High 27.0-32.[address] [facility] Comment on above: Performed By: #### L 100.0100 #### [facility] Laboratory [address] [place], [address] MCHC (RBC) [Mass/Vol] 33.9 g/dL Normal 32-36 [facility] Comment on above: Performed By: #### L 100.0100 #### [facility] Laboratory [address] [place], [address] MCV (RBC) [Entitic vol] 95.5 fL High 80-94 [facility] Comment on above: Performed By: #### L 100.0100 #### [facility] Laboratory [address] [place], [address] Monocytes/100 WBC (Bld) 10.1 % High 0-10 [facility] Comment on above: Performed By: #### L 100.0100 #### [facility] Laboratory [address] [place], [address] Neutrophils/100 WBC (Bld) 63.9 % Normal 47-[address] [facility] Comment on above: Performed By: #### L 100.0100 #### [facility] Laboratory [address] [place], [address] Nucleated RBC (Bld) [#/Vol] 0 10*3/uL Normal 0-[address] [facility] Comment on above: Performed By: #### L 100.0100 #### [facility] Laboratory [address] [place], [address] Platelet mean volume (Bld) [Entitic vol] 9.7 fL Normal 6.2-12.[address] [facility] Comment on above: Performed By: #### L 100.0100 #### [facility] Laboratory [address] [place], [address] Platelets (Bld) [#/Vol] 205 10*3/uL Normal 150-[address] [facility] Comment on above: Performed By: #### L 100.0100 #### [facility] Laboratory [address] [place], [address] RBC (Bld) [#/Vol] 4.26 10*6/uL Low 4.6-6.2 [facility] Comment on above: Performed By: #### L 100.0100 #### [facility] Laboratory [address] [place], [address] RDW SD 52.5 fl High 35.1-43.[address] [facility] Comment on above: Performed By: #### L 100.0100 #### [facility] Laboratory [address] [place], [address] WBC (Bld) [#/Vol] 8.3 10*3/uL Normal 4.4-11.0 [facility] Comment on above: Performed By: #### L 100.0100 #### [facility] Laboratory [address] [place], [address] D-Dimer Quantitative (DVT/PE )on 11-26-2024 D-DIMER QUANT 0.66 FEU/ug/m Invalid Interpretation Code 0.27-0.[address] [facility] Comment on above: Result Comment: D-Di krissy ELEVATED (>0.49): Additional studies and clinical assessments are indicated to conclude diagnosis of: Deep Vein Thrombosis (DVT) or Pulmonary Embolism (PE) CRITICAL VALUE CALLED TO JACQUELINE ROMAN 11/26/24 Massimo Araya. RESULTS READ BACK BY SAME. Performed By: #### L 300.8000 #### [facility] Laboratory [address] [place], [address] D-dimer measurement for deep venous thrombosisOrdered By: Carrillo Malave on 11-26-2024 D-Dimer Quantitative (PE/DVT) 0.66 FEU/ug/m High 0.27-0.[address] [facility] Comment on above: D-Dimer ELEVATED (>0 .49): Additional studies and clinicalassessments are indicated to conclude diagnosis of:Deep Vein Thrombosis (DVT) or Pulmonary Embolism (PE)CRITICAL VALUE CALLED TO JACQUELINE ROMAN11/26/24 1109 Katerome Araya.RESULTS READ BACK BY SAME. Eosinophil percentageOrdered By: Neptali Orellana on 11-26-2024 Eosinophils/100 WBC (Bld) 0.2 % 0-[address] [facility] Erythrocyte distribution wid th ratioOrdered By: Neptali Orellana on 11-26-2024 Erythrocyte distribution width (RBC) [Ratio] 15.2 % High 11.6-14.[address] [facility] Erythrocyte distribution wid th standard deviationOrdered By: Neptali Orellana on 11-26-2024 Erythrocyte distribution width (RBC) [Entitic vol] 52.5 fL High 35.1-43.[address] [facility] Hematocrit Auto (Bld) [Volum e fraction]Ordered By: Neptali Orellana on 11-26-2024 Hematocrit (Bld) [Volume fraction] 40.7 % 40-[address] [facility] Hemoglobin measurementOrdere d By: Neptali Orellana on 11-26-2024 Hemoglobin (Bld) [Mass/Vol] 13.8 g/dL 13.0-16.[address] [facility] Immature granulocytes/100 WB C Auto (Bld)Ordered By: Neptali Orellana on 11-26-2024 Immature granulocytes/100 WBC (Bld) 0.700 % 0.0-0.[address] [facility] Comment on above: IG% - Immature Granu locytes (promyelocytes, myelocytes and metamyelocytes) > 1% indicates that a LEFT SHIFT is Present. Lymphocytes Auto (Unsp spec) [#/Vol]Ordered By: Neptali Orellana on 11-26-2024 Lymphocytes (Bld) [#/Vol] 2.06 10*3/uL 0.83-4.[address] [facility] Lymphocytes/100 WBC Auto (Un sp spec)Ordered By: Neptali Orellana on 11-26-2024 Lymphocytes/100 WBC (Bld) 24.7 % 19-[address] [facility] MCV (mean corpuscular volume ) determinationOrdered By: Neptali Orellana on 11-26-2024 MCV (RBC) [Entitic vol] 95.5 fL High 80-94 [facility] Mean corpuscular hemoglobin (MCH) determinationOrdered By: Neptali Orellana on 11-26-2024 MCH (RBC) [Entitic mass] 32.4 pg High 27.0-32.[address] [facility] Mean corpuscular hemoglobin concentration (MCHC) determinationOrdered By: Neptali Orellana on 11-26-2024 MCHC (RBC) [Mass/Vol] 33.9 g/dL 32-36 [facility] Mean platelet volume determi nationOrdered By: Neptali Orellana on 11-26-2024 Platelet mean volume (Bld) [Entitic vol] 9.7 fL 6.2-12.[address] [facility] Monocyte percentageOrdered B y: Neptali Orellana on 11-26-2024 Monocytes/100 WBC (Bld) 10.1 % High 0-10 [facility] Neutrophil percentageOrdered By: Neptali Orellana on 11-26-2024 Neutrophils/100 WBC (Bld) 63.9 % 47-[address] [facility] Nucleated red blood cell per centageOrdered By: Neptali Orellana on 11-26-2024 Nucleated RBC/100 WBC (Bld) [Ratio] 0 % 0-[address] [facility] Platelet countOrdered By: Sierra Orellana on 11-26-2024 Platelets (Bld) [#/Vol] 205 10*3/uL 150-[address] [facility] RBC Auto (Bld) [#/Vol]Ordere d By: Neptali Orellana on 11-26-2024 RBC (Bld) [#/Vol] 4.26 10*6/uL Low 4.6-6.2 [facility] White blood cell (WBC) count Ordered By: Neptali Orellana on 11-26-2024 WBC (Bld) [#/Vol] 8.3 10*3/uL 4.4-11.0 [facility] 6 Minute Walk Teston 025 6 Minute Walk Test y 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 Status: REG CLI Location: PSN Date: Sex: M C PSN 6 Minute Walk Test 6 Minute Walk Test 6 Minute Walk Test: 6 Minute Walk Test PSN:6-Minute Walk Test Start: 11/06/24 10:49 Freq: Status: Active Protocol: RESP.6MINW Document 11/06/24 10:49 SFENTON (Rec: 11/06/24 10:51 SFENTON [id number]) 6 Minute Walk Test Date Performed 11/06/24 Time Performed 10:30 Height 5 ft 7 in Weight: 180 lb Weight in Pounds 180.[address]: Radha Roberts NP Assistive device used: None Pre-test Oxygen Delivery Method Room Air Pulse Ox (%) 95 Pulse Rate (60-100 beats/min) 97 Dyspnea Emily Scale (0-10) 0 Exertion Emily Scale (6-20) 6 1st minute Oxygen Delivery Method Room Air Pulse Ox (%) 93 Pulse Rate (60-100 beats/min) 100 2nd minute Oxygen Delivery Method Room Air Pulse Ox (%) 90 Pulse Rate (60-100 beats/min) 102 H 3rd minute Oxygen Delivery Method Room Air Pulse Ox (%) 90 Pulse Rate (60-100 beats/min) 106 H 4th minute Oxygen Delivery Method Room Air Pulse Ox (%) 89 Pulse Rate (60-100 beats/min) 108 H 5th minute Oxygen Delivery Method Room Air Pulse Ox (%) 90 Pulse Rate (60-100 beats/min) 109 H 6th minute Oxygen Delivery Method Room Air Pulse Ox (%) 90 Pulse Rate (60-100 beats/min) 113 H Dyspnea Emily Scale (0-10) 4 Exertion Emily Scale (6-20) 14 Post-test Oxygen Delivery Method Room Air Pulse Ox (%) 95 Pulse Rate (60-100 beats/min) 100 Full Laps Walked 16 Partial Lap, Number of Tiles Walked 12 Total Distance Walked (ft) 956 Interpretation Interpretation: The patient ambulated 956 feet over the course of 6 minutes beginning on room air without assistive devices. Pretesting oxygen saturation was noted to be 95% on room air. With ambulation, the estephanie oxygen saturation was 89%. This represents a significant exertional oxygen desaturation, consistent with a pulmonary limitation to exercise tolerance. Recommendations Recommendations: There is no indication for the use of supplemental oxygen at this time. However, close interval follow-up is recommended, given the degree of oxygen desaturation noted during this study. 11/11/24 1301 Date Tevin Nelson DO CC: Date Dictated: 11/11/24 1300 Date Transcribed: 11/11/24 1300 University Lecturer: Dr. Tevin Nelson, DO Signed Normal [facility] Bilirubin directOrdered By: Carrillo Malave on 11-06-2024 Bilirubin.direct [Mass/Vol] 0.22 mg/dL 0.00-0.[address] [facility] Bilirubin, totalOrdered By: Carrillo Malave on 11-06-2024 Bilirubin [Mass/Vol] 0.60 mg/dL 0.20-1.00 [facility] Comment on above: For patients on eltr ombopag therapy, use of Dimension [place] TBIL is not recommended. High density lipoprotein (HD L) measurementOrdered By: Carrillo Malave on 11-06-2024 Cholesterol in HDL [Mass/Vol] 98 mg/dL >[address] [facility] Comment on above: The drugs N-Acetylcy steine and Metamizole may falsely depress this assay. Reference Range HDL <40 mg/dL Low HDL Cholesterol HDL >or= 60 mg/dL High HDL Cholesterol Laboratory - Chemistry and C hemistry - challengeOrdered By: Carrillo Malave on 11-06-2024 AST [Catalytic activity/Vol] 25 U/L 15-[address] [facility] Lipid Profileon 11-06-2024 Cholesterol [Mass/Vol] 143 mg/dL Normal 200 [facility] Comment on above: Result Comment: <200 mg/dL Desirable 200-240 mg/dL Borderline >240 mg/dL High Risk Performed By: #### L 500.3400, L500.4100, L501.9520 ####[facility] [address] [place], [place], [address] Cholesterol in HDL [Mass/Vol] 98 mg/dL Normal [facility] Comment on above: Result Comment: The drugs N-Acetylcysteine and Metamizole may falsely depress this assay. Reference Range HDL <40 mg/dL Low HDL Cholesterol HDL >or= 60 mg/dL High HDL Cholesterol Performed By: #### L 500.3400, L500.4100, L501.9520 ####[facility] [address] [place], [address] Cholesterol in LDL [Mass/Vol] 28 mg/dL Normal 0-[address] [facility] Comment on above: Performed By: #### L 500.3400, L500.4100, L501.9520 ####[facility] [address] [place], [address] Cholesterol in VLDL [Mass/Vol] 17 mg/dL Normal 5-[address] [facility] Comment on above: Performed By: #### L 500.3400, L500.4100, L501.9520 ####[facility] [address] [place], [address] Triglyceride [Mass/Vol] 86 mg/dL Normal [facility] Comment on above: Result Comment: The drugs N-Acetylcysteine and Metamizole may falsely depress this assay. Serum Triglycerides Reference Interval Normal <150 mg/dL Borderline high 150 - 199 mg/dL High 200 - 499 mg/dL Very High > or = 500 mg/dL Performed By: #### L 500.3400, L500.4100, L501.9520 ####[facility] [address] [place], [address] Liver Profileon 11-06-2024 Albumin [Mass/Vol] 3.2 g/dL Normal 3.2-5.0 [facility] Comment on above: Performed By: #### L 500.3400, L500.4100, L501.9520 ####[facility] [address] [place], [address] ALK P 67 U/L Normal 45-[address] [facility] Comment on above: Performed By: #### L 500.3400, L500.4100, L501.9520 ####[facility] [address] [place], [address] ALT [Catalytic activity/Vol] 31 U/L Normal 16-[address] [facility] Comment on above: Performed By: #### L 500.3400, L500.4100, L501.9520 ####[facility] [address] [place], [address] AST [Catalytic activity/Vol] 25 U/L Normal 15-37 [facility] [facility] Comment on above: Performed By: #### L 500.3400, L500.4100, L501.9520 ####[facility] [address] [place], [address] Bilirubin [Mass/Vol] 0.60 mg/dL Normal 0.20-1.00 [facility] Comment on above: Result Comment: For patients on eltrombopag therapy, use of Dimension [place] TBIL is not recommended. Performed By: #### L 500.3400, L500.4100, L501.9520 ####[facility] [address] [place], [address] Bilirubin.direct [Mass/Vol] 0.22 mg/dL Normal 0.00-0.[address] [facility] Comment on above: Performed By: #### L 500.3400, L500.4100, L501.9520 ####[facility] [address] [place], [address] Globulin (S) [Mass/Vol] 3.1 g/dL Normal 2.2-4.2 [facility] Comment on above: Performed By: #### L 500.3400, L500.4100, L501.9520 ####[facility] [address] [place], [address] T PROT 6.3 g/dL Low 6.4-8.[address] [facility] Comment on above: Performed By: #### L 500.3400, L500.4100, L501.9520 ####[facility] [address] [place], [address] Low density lipoprotein (LDL ) cholesterol measurementOrdered By: Carrillo Malave on 11-06-2024 Cholesterol in LDL [Mass/Vol] 28 mg/dL 0-[address] [facility] Serum globulin measurementOr dered By: Carrillo Malave on 11-06-2024 Globulin (S) [Mass/Vol] 3.1 g/dL 2.2-4.2 [facility] Serum or plasma alanine gomez otransferase (ALT) measurementOrdered By: Carrillo Malave on 11-06-2024 ALT [Catalytic activity/Vol] 31 U/L 16-[address] [facility] Serum or plasma albumin jimbo urement (mass/volume)Ordered By: Carrillo Malave on 11-06-2024 Albumin [Mass/Vol] 3.2 g/dL 3.2-5.0 [facility] Serum or plasma alkaline atif sphatase measurementOrdered By: Carrillo Malave on 11-06-2024 ALP [Catalytic activity/Vol] 67 U/L 45-[address] [facility] Serum or plasma cholesterol measurement (mass/volume)Ordered By: Carrillo Malave on 11-06-2024 Cholesterol [Mass/Vol] 143 mg/dL <200 [facility] Comment on above: <200 mg/dL Desirable 200-240 mg/dL Borderline >240 mg/dL High Risk TSH QnOrdered By: Carrillo daley on 11-06-2024 Thyroid Stimulating Hormone (TSH) 1.320 uIU/mL 0.358-3.[address] [facility] Thyroid Stim Hormone (TSH)on 11-06-2024 TSH 1.320 uIU/mL Normal 0.358-3.[address] [facility] Comment on above: Performed By: #### L 500.3400, L500.4100, L501.9520 ####[facility] [address] [place], [place], [address] Total proteinOrdered By: Randy Malave on 11-06-2024 Protein [Mass/Vol] 6.3 g/dL Low 6.4-8.2 [facility] Triglycerides measurementOrd ered By: Carrillo Mlaave on 11-06-2024 Triglyceride [Mass/Vol] 86 mg/dL <199 [facility] Comment on above: The drugs N-Acetylcy steine and Metamizole may falsely depress this assay.Serum Triglycerides Reference Interval Normal <150 mg/dL Borderline high 150 - 199 mg/dL High 200 - 499 mg/dL Very High > or = 500 mg/dL Very low density lipoprotein (VLDL) cholesterol measurementOrdered By: Carrillo Malave on 11-06-2024 VLDL Cholesterol 17 mg/dL 5-[address] [facility] 12 Lead EKG performed by [facility] on 11-05-2024 12 Lead EKG performed by [address] [place] [address] 12 Lead EKG performed by [facility] 11/05/24 1309 MR#: [id number] Acct: [id number] Name: HORACE HENDERSON Rep #: [id number] : 1955 69 From: Carrillo Malave MD Attending Dr: Dr. Carrillo Malave MD Status: DE P AMB Ordering Dr: Carrillo Malave MD Date: 11/05/24 Location: [facility] Sex: M C Admitted: BMS/12 Lead EKG performed by [facility] ECG Report Interpretation --Sinus Tachycardia -Right bundle branch block with left axis -bifascicular block. ABNORMAL Electronically signed on 11/05/2024 at 15:[address] Carrillo Malave [employer] Version [id number] 11/05/24 1511 Date Carrillo Malave MD CC: Dr. George Vázquez MD Date Dictated: 11/05/24 1309 Date Transcribed: 11/05/241308 University Lecturer: Signed Normal [facility] Cardiology Visit Reporton 01 -07-2025 Cardiology Visit Report [facility] [address] [place] [address] OFFICE VISIT Date of Service: 11/05/24 MR#: [id number] Acct: [id number] Name: HORACE HENDERSON Rep #: [id number] : 1955 Provider: Dr. Carrillo mirza MD Age/Sex: 69/M Location: [facility] Status: Signed HPI HPI History of Present Illness Details: Patient is a 69-year-old gentleman that with an extensive cardiac history here for monitoring of his cardiovascular status. He has a history of hypertension, hypercholesterolemia, coronary artery disease status post two- vessel bypass surgery 1995 with receiving a STEPHENS to the LAD, and a saphenous vein graft to the diagonal.??? He did not have a myocardial infarction at that time. Subsequent catheterization since then demonstrated an occluded saphenous vein graft to the diagonal, and he has had multiple stents to his left circumflex and right coronary artery last one occurring in 2020 at [facility]. The patient was recently admitted to the hospital October 28, 2024. He came in with a syncopal spell where he fell and hit his face but he did not lose consciousness. The patient reports that he had been lightheaded and had been taking Lasix and had not been taking his pulmonary medical therapy. He was evaluated in the emergency department and admitted to the hospital. He was found to be dehydrated and hypotensive. His EKG showed sinus rhythm at 99 bpm. He was rehydrated and showed no evidence of significant arrhythmias by discharge summary from the hospitalist. This was felt to be medication induced related to his ANAHI and Lasix therapy. An echocardiogram done during that hospitalization October 28, 2024 showed normal LV function EF of 60% normal RV with normal function both atria were of normal size mitral valve was normal there was mild tricuspid insufficiency with a pulmonary artery pressure estimated at 30 mmHg. There was mild focal aortic valve calcification no other significant abnormalities were documented. The patient now comes in the office reporting that he is feeling better in his home environment he has had no recurrence of his syncope or near syncope. He has noted that his heart rate is in the 120 range when he gets up in the morning and it was 119???121 in the office here today. EKG in the office today shows sinus tachycardia with a right bundle branch block and a left anterior fascicular block which is really unchanged other than the heart rate from his EKG done October 28, 2024. The patient has been on the lower dose of his beta-alise since discharge. He is also back on his pulmonary medical therapy. Significant past medical history includes September of 2021 he had a cardiac catheterization d/t an abnormal stress test for increased SOB, procedure noted his RCA to be challenging to perform PCI and stenting procedures on secondary to his disease process and previous stenting procedures, etc.??? It was recommended by the mat man that he be referred to a tertiary care center for consideration for a higher risk PCI procedure which may include procedure such as atherectomy and Rotablator therapy of the RCA as well as an LCx in-stent restenosis lesion that was not intervened on at the time during his hospitalization in September 2021.??? He was referred to [facility] interventional team with Dr. Juventino Ulrich.??? On 11/12/2021, he underwent PTCA of severely under expanded distal RCA stent, stenting to proximal segment of the rPDA branch, and PTCA of distal LCx and OM 2 ISR lesion. He still does have SOB with exertion. He does see Pulmonary for his COPD. He does not have any chest pain. He does not have any palpitations that he is aware of. He does have lightheadedness with cough. Intake Vital Signs 09/17/24 15:53 10/27/24 16:50 11/05/24 13:04 11/05/24 13:06 Height 5 ft 7 in 5 ft 7 in 5 ft 7 in Weight: 183 lb BP 121/81 H Blood Pressure Location Lt brachial Position Sitting Respiration 18 Pulse 119 H Pulse Source Monitor Pulse Oximetry (%) 91 Oxygen Delivery Method room air Intake Visit Reasons: 6 M FU Lead Java Programmer Required: No Accompanied by: Self Is patient in pain?: No Allergies levofloxacin (From Levaquin) Adverse Reaction (Severe, Verified 11/05/24 12:59) tendonitis Medications ???Medication ???Instructions ???Recorded ???Confirmed ???Type clopidogrel 75 mg tablet (Plavix) 75 mg PO DAILY anti platelet #90 10/04/21 11/05/24 Rx tabs potassium chloride 10 mEq 10 meq PO DAILY PRN supplement 06/19/23 11/05/24 History capsule,extended release furosemide 40 mg tablet 40 mg PO DAILY #90 TABLETS 06/18/24 10/27/24 Rx albuterol sulfate 90 mcg/actuation 2 puff inhalation Q6H PRN PRN 07/30/24 11/05/24 Rx aerosol inhaler Shortness Of Breath #8.5 grams budesonide-form (more content not included)... Normal [facility] Basic Metabolic Profile (BMP )on 10-31-2024 BUN Normal 7-[address] [facility] Comment on above: Result Comment: Canc elled via OM: Order cancelled - Patient discharged Performed By: #### L 300.8000 #### [facility] [address] [place], [address] BUN/CRE Normal 10-[address] [facility] Comment on above: Result Comment: Canc elled via OM: Order cancelled - Patient discharged Performed By: #### L 300.8000 #### [facility] [address] [place], [address] CA,Total Normal 8.5-10.[address] [facility] Comment on above: Result Comment: Canc elled via OM: Order cancelled - Patient discharged Performed By: #### L 300.8000 #### [facility] [address] [place], [address] CL Normal 98-[address] [facility] Comment on above: Result Comment: Canc elled via OM: Order cancelled - Patient discharged Performed By: #### L 300.8000 #### [facility] [address] [place], [address] CO2 Normal 21.0-32.[address] [facility] Comment on above: Result Comment: Canc elled via OM: Order cancelled - Patient discharged Performed By: #### L 300.8000 #### [facility] [address] [place], [address] CREAT,SERUM Normal 0.70-1.[address] [facility] Comment on above: Result Comment: Canc elled via OM: Order cancelled - Patient discharged Performed By: #### L 300.8000 #### [facility] [address] [place], [address] EST GFR Normal >[address] [facility] Comment on above: Result Comment: Canc elled via OM: Order cancelled - Patient discharged Performed By: #### L 300.8000 #### [facility] [address] [place], [address] EST GFR - AA Normal >[address] [facility] Comment on above: Result Comment: Canc elled via OM: Order cancelled - Patient discharged Performed By: #### L 300.8000 #### [facility] [address] [place], [address] GAP Normal 5-[address] [facility] Comment on above: Result Comment: Canc elled via OM: Order cancelled - Patient discharged Performed By: #### L 300.8000 #### [facility] [address] [place], [address] GLU Normal 74-[address] [facility] Comment on above: Result Comment: Canc elled via OM: Order cancelled - Patient discharged Performed By: #### L 300.8000 #### [facility] [address] [place], [address] Potassium Normal 3.5-5.[address] [facility] Comment on above: Result Comment: Canc elled via OM: Order cancelled - Patient discharged Performed By: #### L 300.8000 #### [facility] [address] [place], [address] Basic Metabolic Profile (BMP) Normal 136-[address] [facility] Comment on above: Result Comment: Canc elled via OM: Order cancelled - Patient discharged Performed By: #### L 300.8000 #### [facility] [address] [place], [address] Basic Metabolic Profile (BMP )on 10-30-2024 BUN Normal 7-[address] [facility] Comment on above: Result Comment: Canc elled via OM: Order cancelled - Patient discharged Performed By: #### L 300.8000 #### [facility] [address] [place], [address] BUN/CRE Normal 10-[address] [facility] Comment on above: Result Comment: Canc elled via OM: Order cancelled - Patient discharged Performed By: #### L 300.8000 #### [facility] [address] [place], [address] CA,Total Normal 8.5-10.[address] [facility] Comment on above: Result Comment: Canc elled via OM: Order cancelled - Patient discharged Performed By: #### L 300.8000 #### [facility] [address] [place], [address] CL Normal 98-[address] [facility] Comment on above: Result Comment: Canc elled via OM: Order cancelled - Patient discharged Performed By: #### L 300.8000 #### [facility] [address] [place], [address] CO2 Normal 21.0-32.[address] [facility] Comment on above: Result Comment: Canc elled via OM: Order cancelled - Patient discharged Performed By: #### L 300.8000 #### [facility] [address] [place], [address] CREAT,SERUM Normal 0.70-1.[address] [facility] Comment on above: Result Comment: Canc elled via OM: Order cancelled - Patient discharged Performed By: #### L 300.8000 #### [facility] [address] [place], [address] EST GFR Normal >[address] [facility] Comment on above: Result Comment: Canc elled via OM: Order cancelled - Patient discharged Performed By: #### L 300.8000 #### [facility] [address] [place], [address] EST GFR - AA Normal >[address] [facility] Comment on above: Result Comment: Canc elled via OM: Order cancelled - Patient discharged Performed By: #### L 300.8000 #### [facility] [address] [place], [address] GAP Normal 5-[address] [facility] Comment on above: Result Comment: Canc elled via OM: Order cancelled - Patient discharged Performed By: #### L 300.8000 #### [facility] [address] [place], [address] GLU Normal 74-[address] [facility] Comment on above: Result Comment: Canc elled via OM: Order cancelled - Patient discharged Performed By: #### L 300.8000 #### [facility] [address] [place], [address] Potassium Normal 3.5-5.[address] [facility] Comment on above: Result Comment: Canc elled via OM: Order cancelled - Patient discharged Performed By: #### L 300.8000 #### [facility] [address] [place], [address] Basic Metabolic Profile (BMP) Normal 136-[address] [facility] Comment on above: Result Comment: Canc elled via OM: Order cancelled - Patient discharged Performed By: #### L 300.8000 #### [facility] [address] [place], [address] Basic Metabolic Profile (BMP )on 10-29-2024 BUN Normal 7-[address] [facility] Comment on above: Result Comment: Canc elled via OM: Order cancelled - Patient discharged Performed By: #### L 500.2500 ####[facility] [address] [place], [address] BUN/CRE Normal 10-[address] [facility] Comment on above: Result Comment: Canc elled via OM: Order cancelled - Patient discharged Performed By: #### L 500.2500 ####[facility] [address] [place], [address] CA,Total Normal 8.5-10.[address] [facility] Comment on above: Result Comment: Canc elled via OM: Order cancelled - Patient discharged Performed By: #### L 500.2500 ####[facility] [address] [place], [address] CL Normal 98-[address] [facility] Comment on above: Result Comment: Canc elled via OM: Order cancelled - Patient discharged Performed By: #### L 500.2500 ####[facility] [address] [place], [address] CO2 Normal 21.0-32.[address] [facility] Comment on above: Result Comment: Canc elled via OM: Order cancelled - Patient discharged Performed By: #### L 500.2500 ####[facility] [address] [place], [address] CREAT,SERUM Normal 0.70-1.[address] [facility] Comment on above: Result Comment: Canc elled via OM: Order cancelled - Patient discharged Performed By: #### L 500.2500 ####[facility] [address] [place], [address] EST GFR Normal >[address] [facility] Comment on above: Result Comment: Canc elled via OM: Order cancelled - Patient discharged Performed By: #### L 500.2500 ####[facility] [address] [place], [address] EST GFR - AA Normal >[address] [facility] Comment on above: Result Comment: Canc elled via OM: Order cancelled - Patient discharged Performed By: #### L 500.2500 ####[facility] [address] [place], [address] GAP Normal 5-[address] [facility] Comment on above: Result Comment: Canc elled via OM: Order cancelled - Patient discharged Performed By: #### L 500.2500 ####[facility] [address] [place], [address] GLU Normal 74-[address] [facility] Comment on above: Result Comment: Canc elled via OM: Order cancelled - Patient discharged Performed By: #### L 500.2500 ####[facility] [address] [place], [address] Potassium Normal 3.5-5.[address] [facility] Comment on above: Result Comment: Canc elled via OM: Order cancelled - Patient discharged Performed By: #### L 500.2500 ####[facility] [address] [place], [address] Basic Metabolic Profile (BMP) Normal 136-[address] [facility] Comment on above: Result Comment: Canc elled via OM: Order cancelled - Patient discharged Performed By: #### L 500.2500 ####[facility] [address] [place], [address] Basic Metabolic Profile (BMP )on 10-28-2024 BUN/CRE 12.8 RATIO Normal 10-[address] [facility] Comment on above: Performed By: #### L 100.0500, L500.2500 #### [facility] [address] [place], [address] CA,Total 8.9 mg/dL Normal 8.5-10.[address] [facility] Comment on above: Performed By: #### L 100.0500, L500.2500 #### [facility] [address] [place], [address] Chloride [Moles/Vol] 104 mmol/L Normal 98-107 [facility] Comment on above: Performed By: #### L 100.0500, L500.2500 #### [facility] [address] [place], [address] CO2 [Moles/Vol] 30.0 mmol/L Normal 21.0-32.[address] [facility] Comment on above: Performed By: #### L 100.0500, L500.2500 #### [facility] [address] [place], [address] Creatinine [Mass/Vol] 2.03 mg/dL High 0.70-1.30 [facility] Comment on above: Result Comment: The validity of the calculated GFR GFRAA in patients over 70 years has not been determined. Clinical correlation is essential. Performed By: #### L 100.0500, L500.2500 #### [facility] [address] [place], [address] ECRCL 34.51 ml/min Normal [facility] Comment on above: Performed By: #### L 100.0500, L500.2500 #### [facility] [address] [place], [address] EST GFR - AA 42 mL/min Low >[address] [facility] Comment on above: Result Comment: Afri can Togolese GFR Calc Performed By: #### L 100.0500, L500.2500 #### [facility] [address] [place], [address] GAP 3 Low 5-[address] [facility] Comment on above: Performed By: #### L 100.0500, L500.2500 #### [facility] [address] [place], [address] GFR/1.73 sq M.predicted among non-blacks MDRD (S/P/Bld) [Vol rate/Area] 35 mL/min/{1.73_m2} Low >[address] [facility] Comment on above: Result Comment: Non- GFR Calc Performed By: #### L 100.0500, L500.2500 #### [facility] [address] [place], [address] Glucose [Mass/Vol] 135 mg/dL High 74-106 [facility] Comment on above: Result Comment: Fast ing Glucose result greater than or equal to 126 mg/dL suggests DIABETES MELLITUS per A.D.A. criteria. Performed By: #### L 100.0500, L500.2500 #### [facility] [address] [place], [address] Potassium [Moles/Vol] 3.0 mmol/L Low 3.5-5.1 [facility] Comment on above: Performed By: #### L 100.0500, L500.2500 #### [facility] [address] [place], [address] Sodium [Moles/Vol] 138 mmol/L Normal 136-145 [facility] Comment on above: Performed By: #### L 100.0500, L500.2500 #### [facility] [address] [place], [address] Urea nitrogen [Mass/Vol] 26 mg/dL High 7-[address] [facility] Comment on above: Performed By: #### L 100.0500, L500.2500 #### [facility] [address] [place], [address] Blood urea nitrogen (BUN)/cr eatinine ratioOrdered By: Vicente Andrews on 10-28-2024 Urea nitrogen/Creatinine [Mass ratio] 12.8 mg/mg 10-[address] [facility] CBC-Complete Blood Cnt No Di ffon 10-28-2024 Erythrocyte distribution width (RBC) [Ratio] 13.5 % Normal 11.6-14.[address] [facility] Comment on above: Performed By: #### L 100.0500, L500.2500 #### [facility] [address] [place], [address] Hematocrit (Bld) [Volume fraction] 39.4 % Low 40-[address] [facility] Comment on above: Performed By: #### L 100.0500, L500.2500 #### [facility] [address] [place], [address] Hemoglobin (Bld) [Mass/Vol] 13.4 g/dL Normal 13.0-16.[address] [facility] Comment on above: Performed By: #### L 100.0500, L500.2500 #### [facility] [address] [place], [address] MCH (RBC) [Entitic mass] 32.0 pg Normal 27.0-32.[address] [facility] Comment on above: Performed By: #### L 100.0500, L500.2500 #### [facility] Laboratory [address] [place], [address] MCHC (RBC) [Mass/Vol] 34.0 g/dL Normal 32-36 [facility] Comment on above: Performed By: #### L 100.0500, L500.2500 #### [facility] [address] [place], [address] MCV (RBC) [Entitic vol] 94.0 fL Normal 80-94 [facility] Comment on above: Performed By: #### L 100.0500, L500.2500 #### [facility] [address] [place], [address] Platelet mean volume (Bld) [Entitic vol] 9.4 fL Normal 6.2-12.[address] [facility] Comment on above: Performed By: #### L 100.0500, L500.2500 #### [facility] [address] [place], [address] Platelets (Bld) [#/Vol] 148 10*3/uL Low 150-[address] [facility] Comment on above: Performed By: #### L 100.0500, L500.2500 #### [facility] [address] [place], [address] RBC (Bld) [#/Vol] 4.19 10*6/uL Low 4.6-6.2 [facility] Comment on above: Performed By: #### L 100.0500, L500.2500 #### [facility] [address] [place] [place], [address] RDW SD 45.9 fl High 35.1-43.[address] [facility] Comment on above: Performed By: #### L 100.0500, L500.2500 #### [facility] [address] [place] [place], [address] WBC (Bld) [#/Vol] 8.3 10*3/uL Normal 4.4-11.0 [facility] Comment on above: Performed By: #### L 100.0500, L500.2500 #### [facility] [address] [place] [place], [address] Carbon dioxide measurementOr dered By: Vicente Andrews on 10-28-2024 CO2 [Moles/Vol] 30.0 mmol/L 21.0-32.[address] [facility] Chloride measurementOrdered By: Vicente Andrews on 10-28-2024 Chloride [Moles/Vol] 104 mmol/L 98-107 [facility] Discharge Instructionon 10-01 Discharge Instruction [facility] Medical Records Department [address] [place] [address] Instructions for Home/Discharge Instructions 10/28/24 1637 MR#: [id number] Acct: [id number] Name: HORACE HENDERSON Rep #: [id number] : 1955 69 From: Vicente Andrews DO PCP: Dr. George Vázquez MD Status:ADM GONZÁLEZ Discharge Instructions Diet Discharge Diet: 4000 mg Sodium Diet DC O2, CPAP, BIPAP needs RN Home O2 Qualification: Home O2 Qualification: Is the patient on home oxygen Yes 10/28/24 07:52 Home O2 Qualification: AT REST 1-Pulse Ox at rest 94 10/28/24 07:52 1- Oxygen flow rate at rest 0 10/28/24 07:52 Home O2 Qualification: WITH AMBULATION 1- Pulse Ox with ambulation 93 10/28/24 07:52 1- Oxygen Flow Rate with 0 10/28/24 07:52 ambulation Home O2 Discharge instructions: No Dressing / Incision Discharge Activity: No Restrictions Follow Up Care Test Results: Test results from this visit will be discussed in further detail at your follow-up appointment, if applicable. Discharge Plan Admission Admit Date/Time: 10/27/24 14:17 Primary Reason for Your Visit: Episode of passing out Attending Provider: Vicente Andrews Primary Care Provider: George Vázquez Instructions Additional Instructions / Restrictions: ??? Hold off on taking your home losartan and Lasix until you see cardiology in the office on 11/05. ??? Strongly recommend that you restart taking Daliresp and Spiriva per pulmonology recommendations. ??? Continue your other home medications as normal on discharge. Discharge Orders/Prescriptions Prescriptions: Continued clopidogrel [Plavix] 75 mg tablet 75 mg PO DAILY Qty: 90 4RF potassium chloride 10 mEq capsule, extended release 10 meq PO DAILY PRN (Reason: supplement) budesonide-formoterol [Symbicort] 160-4.5 mcg/actuation HFA aerosol inhaler 2 puff inhalation BID Qty: 3 3RF Rx Instructions: administer with spacer, rinse mouth after each use albuterol sulfate 90 mcg/actuation HFA aerosol inhaler 2 puff INHALATION Q6H PRN PRN (Reason: Shortness Of Breath) Qty: 8.5 11RF rosuvastatin 40 mg tablet 40 mg PO QHS Qty: 90 3RF isosorbide mononitrate 30 mg tablet extended release 24 hr 30 mg PO DAILY Qty: 90 3RF ipratropium-albuterol 0.5 mg-3 mg(2.5 mg base)/3 mL solution for nebulization 3 ml continuous nebulization Q6H PRN (Reason: shortness of breath or wheezing) Qty: 180 11RF metoprolol succinate 50 mg tablet extended release 24 hr 50 mg PO DAILY Qty: 180 3RF Held losartan 50 mg tablet 50 mg PO QDAY Qty: 90 3RF Hold Instructions: Resume on 11/05/24. Hold until you see cardiology in the office. furosemide 40 mg tablet 40 mg PO DAILY Qty: 90 3RF Hold Instructions: Resume on 11/05/24. Hold until you see cardiology in the office. Referrals / Follow Up: George Vázquez MD [Primary Care Provider] - Disposition Disposition (needs filled in before D/C Order can be placed): Home, Self Care 10/28/24 1655 Vicente Andrews DO CC: Dr. George Vázquez MD Signed Normal [facility] Echo Complete W/ Contraston 10-28-2024 Echo Complete W/ Contrast [facility] Cardiovascular Services [address] [place] [address] Echo Complete W/ Contrast 10/28/24 1331 MR#: [id number] Acct: [id number] Name: HORACE HENDERSON Rep #: [id number] : 1955 69 From: Tomy Hanks MD Attending Dr: Dr. Vicente Andrews, Status : ADM GONZÁLEZ Ordering Dr: Vicente Andrews DO Date: 10/28/24 Location: U Sex: M C Admitted: 10/27/24 Reason For Study: Syncope Procedure This was a 2D Doppler, Color Flow transthoracic echocardiogram. The study was technically difficult. Exam performed portable in patient room. Left Ventricle Normal LV size. Left ventricular systolic function is normal. The left ventricular ejection fraction is 60 %. No regional wall motion abnormalities noted. Right Ventricle Normal RV size. Normal systolic function. Atria Normal left atrium. Normal right atrium. Mitral Valve Normal mitral valve. Tricuspid Valve Normal tricuspid valve. Mild tricuspid valve insufficiency. Pulmonary artery systolic pressure is 30 mmHg. Aortic Valve Trisinus/trileaflet aortic valve. Mild focal aortic valve calcification. Pulmonic Valve Normal pulmonic valve. Great Vessels Normal aortic root. The pulmonary artery is normal size. Inferior vena cava collapse with respiration. Pericardium/Pleural No pericardial effusion. Medication Diluted definity 2.0ml given slow IV push to enhance endocardial definition. MMode/2D Measurements Calculations LVIDd: 3.3 cm IVSd: 1.3 cm LVOT diam: 2.1 cm LVIDs: 1.7 cm LVPWd: 1.5 cm RVDd: 3.4 cm FS: 47.2 % LVOT area: 3.5 cm2 asc Aorta Diam: 3.5 cm LAV(MOD-bp): 31.5 ml LA A4 area: 12.9 cm2 LAV(MOD-bp) Indexed: 16.4 ml/m2 LAV(MOD-sp2): 35.0 ml LAV(MOD-sp4): 26.8 ml LA dimension(2D): 3.4 cm TAPSE: 1.4 cm RA A4 area: 12.7 cm2 Time Measurements MV dec time: 0.23 sec Doppler Measurements Calculations MV E max kim: 76.9 cm/sec Lat Peak E' Kim: 7.8 cm/sec Med Peak E' Kim: 9.8 cm/sec MV A max kim: 123.5 cm/sec E/E' lat: 9.8 E/E' med: 7.9 MV E/A: 0.62 MV dec slope: 341.2 cm/sec2 Ao V2 max: 144.8 cm/sec LV V1 max: 112.1 cm/sec Ao max P.4 mmHg LV V1 max P.0 mmHg Ao V2 mean: 99.1 cm/sec LV V1 mean P.1 mmHg Ao mean P.4 mmHg LV V1 mean: 82.8 cm/sec Ao V2 VTI: 22.9 cm LV V1 VTI: 18.0 cm AV (velocity ratio): 0.78 WADE(I,D): 2.8 cm2 WADE(V,D): 2.7 cm2 SV(LVOT): 63.0 ml PA V2 max: 89.8 cm/sec TR max kim: 259.9 cm/sec TR max P.0 mmHg ECHO/Echo Complete W/ Contrast Interpretation Summary Normal LV size. Left ventricular systolic function is normal. The left ventricular ejection fraction is 60 %. Pulmonary artery systolic pressure is 30 mmHg. Contrast injection was performed. Ordering Physician: Vicente Andrews Performed By: eDlia Sharp RDCS 10/28/24 3729 Date Tomy Hanks MD CC: Dr. Vicente Andrews, DO; Dr. George Vázquez MD Date Dictated: 10/28/24 1331 Date Transcribed: 10/28/24 162 University Lecturer: Signed Normal [facility] Erythrocyte distribution wid th ratioOrdered By: Vicente Andrews on 10-28-2024 Erythrocyte distribution width (RBC) [Ratio] 13.5 % 11.6-14.[address] [facility] Erythrocyte distribution wid th standard deviationOrdered By: Vicente Andrews on 10-28-2024 Erythrocyte distribution width (RBC) [Entitic vol] 45.9 fL High 35.1-43.[address] [facility] Estimated glomerular filtrat ion rate (GFR) AmericanOrdered By: Vicente Andrews on 10-28-2024 Estimated GFR (MDRD) Amer 42 mL/min Low >[address] [facility] Comment on above: GFR Calc Estimation of creatinine rosi aranceOrdered By: Vicente Andrews on 10-28-2024 Estimated Creatinine Clearance Calc 34.51 ml/min [facility] Glomerular filtration rate ( GFR) estimationOrdered By: Vicente Andrews on 10-28-2024 Estimated GFR (MDRD) Non-Af Amer 35 mL/min Low >[address] [facility] Comment on above: Non- GFR Calc Glucose measurementOrdered B y: Vicente Andrews on 10-28-2024 Glucose [Mass/Vol] 135 mg/dL High 74-106 [facility] Comment on above: Fasting Glucose resu lt greater than or equal to 126 mg/dL suggests DIABETES MELLITUS per A.D.A. criteria. Hematocrit Auto (Bld) [Volum e fraction]Ordered By: Vicente Andrews on 10-28-2024 Hematocrit (Bld) [Volume fraction] 39.4 % Low 40-[address] [facility] Hemoglobin measurementOrdere d By: Vicente Andrews on 10-28-2024 Hemoglobin (Bld) [Mass/Vol] 13.4 g/dL 13.0-16.[address] [facility] MCV (mean corpuscular volume ) determinationOrdered By: Vicente Andrews on 10-28-2024 MCV (RBC) [Entitic vol] 94.0 fL 80-94 [facility] Magnesiumon 10-28-2024 Magnesium [Mass/Vol] 2.5 mg/dL Normal 1.6-2.6 [facility] Comment on above: Performed By: #### L 501.2300, L501.5200 ####[facility] [id number] [place], [place], [id number] Magnesium measurementOrdered By: Vicente Andrews on 10-28-2024 Magnesium [Mass/Vol] 2.5 mg/dL 1.6-2.6 [facility] Mean corpuscular hemoglobin (MCH) determinationOrdered By: Vicente Andrews on 10-28-2024 MCH (RBC) [Entitic mass] 32.0 pg 27.0-32.[address] [facility] Mean corpuscular hemoglobin concentration (MCHC) determinationOrdered By: Vicente Andrews on 10-28-2024 MCHC (RBC) [Mass/Vol] 34.0 g/dL 32-36 [facility] Mean platelet volume determi nationOrdered By: Vicente Andrews on 10-28-2024 Platelet mean volume (Bld) [Entitic vol] 9.4 fL 6.2-12.[address] [facility] Phosphoruson 10-28-2024 Phosphate [Mass/Vol] 2.3 mg/dL Low 2.5-4.9 [facility] Comment on above: Performed By: #### L 501.2300, L501.5200 ####[facility] [address] [place], [address] Phosphorus measurementOrdere d By: Vicente Andrews on 10-28-2024 Phosphorus Level 2.3 mg/dL Low 2.5-4.[address] [facility] Platelet countOrdered By: Nj Andrews on 10-28-2024 Platelets (Bld) [#/Vol] 148 10*3/uL Low 150-[address] [facility] Potassium measurementOrdered By: Vicente Andrews on 10-28-2024 Potassium [Moles/Vol] 3.0 mmol/L Low 3.5-5.1 [facility] RBC Auto (Bld) [#/Vol]Ordere d By: Vicente Andrews on 10-28-2024 RBC (Bld) [#/Vol] 4.19 10*6/uL Low 4.6-6.2 [facility] Serum anion gap measurementO rdered By: Vicente Andrews on 10-28-2024 Anion gap [Moles/Vol] 3 mmol/L Low 5-15 [facility] Serum or plasma calcium jimbo urement (mass/volume)Ordered By: Vicente Andrews on 10-28-2024 Calcium [Mass/Vol] 8.9 mg/dL 8.5-10.1 [facility] Serum or plasma creatinine m easurement (mass/volume)Ordered By: Vicente Andrews on 10-28-2024 Creatinine [Mass/Vol] 2.03 mg/dL High 0.70-1.30 [facility] Comment on above: The validity of the calculated GFR & GFRAA in patients over 70 years has not been determined. Clinical correlation is essential. Serum or plasma urea nitroge n measurement (mass/volume)Ordered By: Vicente Andrews on 10-28-2024 Urea nitrogen [Mass/Vol] 26 mg/dL High 7-[address] [facility] Sodium levelOrdered By: Pablo Andrews on 10-28-2024 Sodium [Moles/Vol] 138 mmol/L 136-145 [facility] White blood cell (WBC) count Ordered By: Vicente Andrews on 10-28-2024 WBC (Bld) [#/Vol] 8.3 10*3/uL 4.4-11.0 [facility] 12 Lead EKGon 10-27-2024 12 Lead EKG [facility] Cardiovascular Services [address] [place] [address] 12 Lead EKG 10/27/24 1228 MR#: [id number] Acct: [id number] Name: HORACE HENDERSON Rep #: [id number] : 1955 69 From: Tomy Hanks MD Attending Dr: Dr. Vicente Andrews, DO Status : ADM GONZÁLEZ Ordering Dr: Yecenia Harvey Date: 10/27/24 Location: [facility] Sex: M C Admitted: 10/27/24 Test Reason : SYNC Blood Pressure : */* mmHG Vent. Rate : 99 BPM Atrial Rate : 99 BPM P-R Int : 124 ms QRS Dur : 144 ms QT Int : 394 ms P-R-T Axes : 63 -73 67 degrees QTcB Int : 505 ms Normal sinus rhythm Left axis deviation Right bundle branch block Abnormal ECG Confirmed by TOMY HANKS MD ([id number]), editor greeting card DODIE PRICE ([id number]) on 10/28/2024 10:53:45 AM Referred By: LÁZARO Confirmed By: TOMY HANKS MD 10/28/24 1053 Date Tomy Hanks MD CC: Dr. Vicente Andrews, DO; Dr. George Vázquez MD; RENEE Beckett Signed Normal [facility] Absolute neutrophil countOrd ered By: Yecenia Harvey on 10-27-2024 Neutrophils (Bld) [#/Vol] 9.2 10*3/uL High 2.0-7.[address] [facility] Basic Metabolic Profile (BMP )on 10-27-2024 BUN/CRE 13.6 RATIO Normal 10-[address] [facility] Comment on above: Order Comment: 'TROP ' Serial specimen #1, #2 or #3: 1 Performed By: #### L 300.8000 #### [facility] Laboratory [address] [place], [address] CA,Total 9.3 mg/dL Normal 8.5-10.[address] [facility] Comment on above: Order Comment: 'TROP ' Serial specimen #1, #2 or #3: 1 Performed By: #### L 300.8000 #### [facility] [address] [place], [address] Chloride [Moles/Vol] 100 mmol/L Normal 98-107 [facility] Comment on above: Order Comment: 'TROP ' Serial specimen #1, #2 or #3: 1 Performed By: #### L 300.8000 #### [facility] [address] [place], [address] CO2 [Moles/Vol] 25.0 mmol/L Normal 21.0-32.[address] [facility] Comment on above: Order Comment: 'TROP ' Serial specimen #1, #2 or #3: 1 Performed By: #### L 300.8000 #### [facility] [address] [place], [address] Creatinine [Mass/Vol] 2.13 mg/dL High 0.70-1.30 [facility] Comment on above: Order Comment: 'TROP ' Serial specimen #1, #2 or #3: 1 Result Comment: The validity of the calculated GFR GFRAA in patients over 70 years has not been determined. Clinical correlation is essential. Performed By: #### L 300.8000 #### [facility] [address] [place], [address] ECRCL 33.31 ml/min Normal [facility] Comment on above: Order Comment: 'TROP ' Serial specimen #1, #2 or #3: 1 Performed By: #### L 300.8000 #### [facility] [address] [place], [address] EST GFR - AA 40 mL/min Low >[address] [facility] Comment on above: Order Comment: 'TROP ' Serial specimen #1, #2 or #3: 1 Result Comment: Afri can Togolese GFR Calc Performed By: #### L 300.8000 #### [facility] [address] [place], [address] GAP 6 Normal 5-[address] [facility] Comment on above: Order Comment: 'TROP ' Serial specimen #1, #2 or #3: 1 Performed By: #### L 300.8000 #### [facility] [address] [place], [address] GFR/1.73 sq M.predicted among non-blacks MDRD (S/P/Bld) [Vol rate/Area] 33 mL/min/{1.73_m2} Low >[address] [facility] Comment on above: Order Comment: 'TROP ' Serial specimen #1, #2 or #3: 1 Result Comment: Non- GFR Calc Performed By: #### L 300.8000 #### [facility] [address] [place], [address] Glucose [Mass/Vol] 120 mg/dL High 74-106 [facility] Comment on above: Order Comment: 'TROP ' Serial specimen #1, #2 or #3: 1 Result Comment: Fast ing Glucose result from 100 to 125 mg/dL suggests IMPAIRED HOMEOSTASIS per A.D.A. criteria. Performed By: #### L 300.8000 #### [facility] [address] [place], [address] Potassium [Moles/Vol] 3.8 mmol/L Normal 3.5-5.1 [facility] Comment on above: Order Comment: 'TROP ' Serial specimen #1, #2 or #3: 1 Result Comment: Mode rate Hemolysis, Result may be falsely increased. Performed By: #### L 300.8000 #### [facility] [address] [place], [address] Sodium [Moles/Vol] 130 mmol/L Low 136-145 [facility] Comment on above: Order Comment: 'TROP ' Serial specimen #1, #2 or #3: 1 Performed By: #### L 300.8000 #### [facility] [address] [place], [address] Urea nitrogen [Mass/Vol] 29 mg/dL High 7-[address] [facility] Comment on above: Order Comment: 'TROP ' Serial specimen #1, #2 or #3: 1 Performed By: #### L 300.8000 #### [facility] [address] [place], [address] Basophil percentageOrdered B y: Yecenia Harvey on 10-27-2024 Basophils/100 WBC (Bld) 0.3 % 0-1 [facility] Bilirubin Test strip Ql (U)O rdered By: Yecenia Harvey on 10-27-2024 Bilirubin Ql (U) Negative Negative [facility] Brain/Head without Contrasto n 10-27-2024 Brain/Head without Contrast [facility] Imaging Services [address] [place] [address] Brain/Head without Contrast MR#: [id number] Acct: [id number] Name: HORACE HENDERSON Rep #: [id number] : 1955 M 69 From: Pablo Gross MD PCP: Dr. George Vázquez MD Status: REG ER Study: Brain/Head without Contrast Date of Exam: 09/30 07/23 Exam# [id number] Ordering Dr: Yecenia Harvey [id number] EXAM: CT HEAD WITHOUT INTRAVENOUS CONTRAST CLINICAL INDICATION: head injury TECHNIQUE: Multiple axial images were obtained of the head without intravenous contrast. This CT exam was performed using one or more of the following dose reduction techniques: automated exposure control, adjustment of the mA and/or kV according to patient size, and/or use of iterative reconstruction technique. RADIATION DOSE: CTDIvol = 44.99 mGy, DLP = 796.11 mGy-cm COMPARISON: CT head without contrast and CTA head with contrast 08/07/2023. FINDINGS: BRAIN AND EXTRA-AXIAL SPACES: Unremarkable. No intra- or extra-axial hemorrhage. No evidence of acute infarct. No intracranial mass or mass effect. There is preservation of the naylor/white matter interface. Posterior fossa structures are unremarkable. Ventricles are appropriate for age. No hydrocephalus. Basal cisterns are patent. BONES/JOINTS: Unremarkable. No discrete lytic or blastic abnormalities. SINUSES: Unremarkable as visualized. Clear. MASTOID AIR CELLS: Unremarkable. Clear. ORBITS: Visualized globes, extraocular muscles, optic nerves and retrobulbar fat appear unremarkable. CT/Brain/Head without Contrast IMPRESSION: Negative head/brain CT without intravenous contrast and unchanged when compared to 08/07/2023. Electronically Signed: Pablo Gross MD at 12:54 EST Reading Location ID and State: [facility] / [place] , Service support , CC: Dr. George Vázquez MD; RENEE Beckett University Lecturer: Signed Normal [facility] CBC W/Diff, Automatedon 09-30 Absolute Lymph 1.48 X10 3/uL Normal 0.83-4.[address] [facility] Comment on above: Performed By: #### L 300.8280 #### [facility] [address] [place], [place], [address] Absolute Neut 9.2 X10 3/uL High 2.0-7.[address] [facility] Comment on above: Performed By: #### L 300.8000 #### [facility] [address] [place], [address] Basophils/100 WBC (Bld) 0.3 % Normal 0-1 [facility] Comment on above: Performed By: #### L 300.8000 #### [facility] [address] [place], [address] Eosinophils/100 WBC (Bld) 0.3 % Normal 0-[address] [facility] Comment on above: Performed By: #### L 300.8000 #### [facility] [address] [place], [address] Erythrocyte distribution width (RBC) [Ratio] 13.4 % Normal 11.6-14.[address] [facility] Comment on above: Performed By: #### L 300.8000 #### [facility] [address] [place], [address] Hematocrit (Bld) [Volume fraction] 43.4 % Normal 40-[address] [facility] Comment on above: Performed By: #### L 300.8000 #### [facility] [address] [place], [address] Hemoglobin (Bld) [Mass/Vol] 15.1 g/dL Normal 13.0-16.[address] [facility] Comment on above: Performed By: #### L 300.8000 #### [facility] [address] [place], [address] IG% 0.700 Normal 0.0-0.[address] [facility] Comment on above: Result Comment: IG% - Immature Granulocytes (promyelocytes, myelocytes and metamyelocytes) > 1% indicates that a LEFT SHIFT is Present. Performed By: #### L 300.8000 #### [facility] [address] [place], [address] Lymphocytes/100 WBC (Bld) 12.9 % Low 19-[address] [facility] Comment on above: Performed By: #### L 300.8000 #### [facility] [address] [place], [address] MCH (RBC) [Entitic mass] 32.4 pg High 27.0-32.[address] [facility] Comment on above: Performed By: #### L 300.8000 #### [facility] [address] [place], [address] MCHC (RBC) [Mass/Vol] 34.8 g/dL Normal 32-36 [facility] Comment on above: Performed By: #### L 300.8000 #### [facility] [address] [place], [address] MCV (RBC) [Entitic vol] 93.1 fL Normal 80-94 [facility] Comment on above: Performed By: #### L 300.8000 #### [facility] [address] [place], [address] Monocytes/100 WBC (Bld) 6.3 % Normal 0-10 [facility] Comment on above: Performed By: #### L 300.8000 #### [facility] [address] [place], [address] Neutrophils/100 WBC (Bld) 79.5 % High 47-[address] [facility] Comment on above: Performed By: #### L 300.8000 #### [facility] [address] [place], [address] Nucleated RBC (Bld) [#/Vol] 0 10*3/uL Normal 0-[address] [facility] Comment on above: Performed By: #### L 300.8000 #### [facility] [address] [place], [address] Platelet mean volume (Bld) [Entitic vol] 9.5 fL Normal 6.2-12.[address] [facility] Comment on above: Performed By: #### L 300.8000 #### [facility] [address] [place], [address] Platelets (Bld) [#/Vol] 179 10*3/uL Normal 150-[address] [facility] Comment on above: Performed By: #### L 300.8000 #### [facility] [address] [place], [address] RBC (Bld) [#/Vol] 4.66 10*6/uL Normal 4.6-6.2 [facility] Comment on above: Performed By: #### L 300.8000 #### [facility] [address] [place], [address] RDW SD 45.6 fl High 35.1-43.[address] [facility] Comment on above: Performed By: #### L 300.8000 #### [facility] [address] [place], [address] WBC (Bld) [#/Vol] 11.5 10*3/uL High 4.4-11.0 [facility] Comment on above: Performed By: #### L 300.8000 #### [facility] [address] [place], [address] Chest 1 View (Portable)on Chest 1 View (Portable) [facility] Imaging Services [address] [place] [address] Chest 1 View (Portable) MR#: [id number] Acct: [id number] Name: HORACE HENDERSON Rep #: [id number] : 1955 M 69 From: Pablo Gross MD PCP: Dr. George Vázquez MD Status: [facility] ER Study: Chest 1 View (Portable) Date of Exam: 10/27/24 Exam# [id number] Ordering Dr: Yecenia Harvey [id number] EXAM: XR CHEST, 1 VIEW CLINICAL INDICATION: syncope TECHNIQUE: Frontal view of the chest. COMPARISON: 09/17/2024 FINDINGS: LUNGS AND PLEURAL SPACES: Right pleural fluid versus pleural thickening is unchanged. No consolidation or edema. Mild pulmonary hyperinflation with flattening of the hemidiaphragms. No pneumothorax. HEART: See below. MEDIASTINUM: Intact sternal wires. Multiple surgical clips in the mediastinum from CABG procedure. BONES/JOINTS: Unremarkable. No acute fracture. SOFT TISSUES: Unremarkable. RAD/Chest 1 View (Portable) IMPRESSION: 1. No acute findings in the chest. 2. Chronic right pleural fluid versus pleural thickening unchanged when compared to 09/17/2024. Electronically Signed: Pablo Gross MD at 15:15 EST , CC: Dr. George Vázquez MD; RENEE Beckett University Lecturer: Signed Normal [facility] D-Dimer Quantitative (DVT/PE )on 10-27-2024 D-DIMER QUANT 0.56 FEU/ug/m Invalid Interpretation Code 0.27-0.[address] [facility] Comment on above: Result Comment: D-Di krissy ELEVATED (>0.49): Additional studies and clinical assessments are indicated to conclude diagnosis of: Deep Vein Thrombosis (DVT) or Pulmonary Embolism (PE) CRITICAL VALUE CALLED TO EYOUN 10/27/24 1315 Kate Araya. RESULTS READ BACK BY SAME. Performed By: #### L 300.8000 #### [facility] [address] [place], [place] [address]all [address]. [place], [place], [id number] D-dimer measurement for deep venous thrombosisOrdered By: Praveen Ruiz on 10-27-2024 D-Dimer Quantitative (PE/DVT) 0.56 FEU/ug/m High 0.27-0.[address] [facility] Comment on above: D-Dimer ELEVATED (>0 .49): Additional studies and clinicalassessments are indicated to conclude diagnosis of:Deep Vein Thrombosis (DVT) or Pulmonary Embolism (PE)CRITICAL VALUE CALLED TO HJRYWV80/29/24 1315 Kate Araya.RESULTS READ BACK BY SAME. Emergency Department Summary on 10-27-2024 Emergency Department Summary [facility] Medical Records Department [address] [place] [address] Emergency Department Summary 10/27/24 MR#: [id number] Acct: [id number] Name: HORACE HENDERSON Rep #: [id number] : 1955 69 From: Praveen Ruiz DO PCP: Dr. George Vázquez MD Status:REG ER Location: ED HPI History of Present Illness Chief Complaint: Syncope Narrative Narrative: 69-year-old male with PMH of HTN, HLD, COPD, CAD with stents presents after a syncopal episode. He was sitting at his kitchen table and the next thing he knew he woke up on the floor and had a laceration on his forehead. He was able to get up and call his son. He complains of a mild headache but no other injuries. He is on Plavix. He states over the last month his heart rate has been over 100. He was told by his primary care doctor to double his metoprolol???he typically takes metoprolol 50 mg in the morning and states he went up to 75 mg/day because he did not have enough pills to double it but this has not really helped. With today's episode he denies any preceding symptoms such as chest pain, shortness of breath, nausea or vomiting. [facility] Medical History Essential hypertension Alcohol use History of steroid therapy Arthritis High cholesterol Smoker On home oxygen therapy COPD (chronic obstructive pulmonary disease) Shortness of breath on exertion History of pain when walking Hypertension History of echocardiogram History of stress test Cardiology follow-up encounter [facility] Nodule of lower lobe of left lung Perforated diverticulum of large intestine Presence of stent in coronary artery ( 11/12/21) Easy bruising Excessive bleeding History of ulceration Gastric reflux History of diverticulitis Chronic bronchitis Nicotine dependence Osteoarthritis DDD (degenerative disc disease), lumbar Atherosclerosis of coronary artery of [place] heart without angina pectoris Atherosclerosis of coronary artery bypass graft without angina pectoris Hyperlipidemia Home Medications ???Medication ???Instructions ???Recorded ???Last Taken ???Type clopidogrel 75 mg tablet (Plavix) 75 mg PO DAILY anti platelet #90 10/04/21 11/26/22 Rx tabs omeprazole 40 mg capsule,delayed 40 mg PO DAILY 01/13/23 Unknown History release potassium chloride 10 mEq 10 meq PO DAILY PRN 06/19/23 Unknown History capsule,extended release ezetimibe 10 mg tablet (Zetia) 10 mg PO DAILY 03/18/24 Unknown History losartan 50 mg tablet 50 mg PO QDAY #90 tabs 03/18/24 Unknown Rx furosemide 40 mg tablet 40 mg PO DAILY #90 TABLETS 06/18/24 Unknown Rx albuterol sulfate 90 mcg/actuation 2 puff inhalation Q6H PRN PRN 07/30/24 Unknown Rx aerosol inhaler Shortness Of Breath #8.5 grams budesonide-formoterol HFA 160 2 puff inhalation BID #3 ea 07/30/24 Unknown Rx mcg-4.5 mcg/actuation aerosol inhaler (Symbicort) roflumilast 500 mcg tablet 500 mcg PO DAILY #30 tabs 07/30/24 Unknown Rx (Daliresp) tiotropium bromide 2.5 2 inh inhalation QDAY #1 ea 07/30/24 Unknown Rx mcg/actuation mist for inhalation (Spiriva Respimat) rosuvastatin 40 mg tablet 40 mg PO QHS #90 tabs 08/14/24 Unknown Rx isosorbide mononitrate 30 mg 30 mg PO DAILY #90 TABLETS 09/09/24 Unknown Rx tablet,extended release 24 hr ipratropium 0.5 mg-albuterol 3 mg 3 ml continuous nebulization Q6H 09/10/24 Unknown Rx (2.5 mg base)/3 mL nebulization PRN shortness of breath or soln wheezing #180 mL metoprolol succinate 50 mg 50 mg PO DAILY #180 tabs 09/10/24 Unknown Rx tablet,extended release 24 hr amoxicillin 875 mg-potassium 1 tab PO BID #20 tabs 09/12/24 Unknown Rx clavulanate 125 mg tablet prednisone 20 mg tablet 40 mg (2 x 20 mg) PO DAILY copd 10 09/17/24 Unknown Rx days #20 tabs Allergy/AdvReac Type Severity Reaction Status Date / Time levofloxacin (From [facility]) AdvReac Severe tendonitis Verified 10/27/24 11:35 Family History Father CAD (coronary artery disease) Brother Hypertension Grandfather Pancreatic cancer Grandmother Heart disease Surgical History History of laparoscopic cholecystectomy S/P laparoscopic cholecystectomy Status post double vessel coronary artery bypass Presence of coronary angioplasty implant and graft ( 09/29/21) Hx of left cataract extraction Hx of right cataract extraction History of cardiac catheterization History of colectomy S/p bilateral carpal tunnel release H/O coronary artery bypass surgery (10/14/96) History of left knee replacement History of appendectomy History of tonsillectomy History of partial colectomy Social History Smoking Status: Cu (more content not included)... Normal [facility] Eosinophil percentageOrdered By: Yecenia Harvey on 10-27-2024 Eosinophils/100 WBC (Bld) 0.3 % 0-[address] [facility] Epithelial cells.squamous LM Ql (Urine sed)Ordered By: Yecenia Harvey on 10-27-2024 Epithelial cells.squamous LM.HPF (Urine sed) [#/Area] 0 /[HPF] 0-[address] [facility] Glucose Ql (U)Ordered By: Jessica Harvey on 10-27-2024 Urine Glucose (UA) Normal mg/dl Normal [facility] H AND P Exam - [facility] 10-27-2024 H&P Exam - Hospitalist [facility] Medical Records Department [address] [place] [address] H P Exam - Hospitalist 10/27/24 1415 MR#: [id number] Acct: [id number] Name: HORACE HENDERSON Rep #: [id number] : 1955 69 From: Vicente Andrews DO PCP: Dr. George Vázquez MD Status:REG ER Location: ED HPI - General General Date of Admission: 10/27/24 Date of Service: 10/27/24 Chief Complaint: Syncopal episode HPI Narrative HORACE HENDERSON, is a 69 M who presented to [facility] ED on 10/27/2024 after a syncopal episode at home. Patient has past medical history significant for CAD with CABG and extensive stenting and stage III COPD on 2 L nasal cannula at night. Patient lives at home with his son, son was not present when episode occurred. Patient reported sitting at the kitchen table and then next thing he knew he woke up on the floor and had a laceration on his forehead. Stated he was able to get up and called his son who then called EMS to bring the patient in. On arrival to the ED patient was tachycardic to the low 100s and hypotensive to the 90s over 70s, was otherwise breathing comfortably on room air. Labs notable for sodium 130, creatinine 2.13 (baseline around 1.5). CT brain and C-spine were unremarkable. Chest x-ray was also unremarkable. EKG showed normal sinus rhythm with right bundle branch block, no acute ST changes. He was given 1 L normal saline with improvement in blood pressure to the 110s systolic. He also had the laceration on his forehead closed with Steri-Strips. Given the syncopal episode and significant cardiac history, hospitalist was contacted for admission. I saw the patient at bedside in the ED, family friend was present. Patient was sitting up comfortably in bed, conversing normally, in no acute distress. He was eating soup from [employer] when I saw him. Denied any acute pain or discomfort. Patient follows with [facility] and notes that his sinus tachycardia has been worse recently, and he was told to increase his metoprolol dose because of this. Scheduled to see cardiology in the office in early October. Denies any lightheadedness or dizziness recently. He does have known history of COPD and follows with [facility]. He wears 2 L nasal cannula at night, does not wear supplemental oxygen during the day. Patient also reports that he has not been taking his home roflumilast or Spiriva recently stating he does not feel like he needs them. On further questioning about today's episode patient states that he does remember feeling short of breath and had difficulty catching his breath prior to the episode. He is not able to do much at home because of significant shortness of breath with exertion that has been ongoing for some time. He is still smoking about 1/2 pack of cigarettes daily. No other acute concerns at this time. [facility] Medical History Essential hypertension Alcohol use History of steroid therapy Arthritis High cholesterol Smoker On home oxygen therapy COPD (chronic obstructive pulmonary disease) Shortness of breath on exertion History of pain when walking Hypertension History of echocardiogram History of stress test Cardiology follow-up encounter [facility] Nodule of lower lobe of left lung Perforated diverticulum of large intestine Presence of stent in coronary artery ( 11/12/21) Easy bruising Excessive bleeding History of ulceration Gastric reflux History of diverticulitis Chronic bronchitis Nicotine dependence Osteoarthritis DDD (degenerative disc disease), lumbar Atherosclerosis of coronary artery of [place] heart without angina pectoris Atherosclerosis of coronary artery bypass graft without angina pectoris Hyperlipidemia Home Medications ???Medication ???Instructions ???Recorded ???Last Taken ???Type clopidogrel 75 mg tablet (Plavix) 75 mg PO DAILY anti platelet #90 10/04/21 11/26/22 Rx tabs potassium chloride 10 mEq 10 meq PO DAILY PRN supplement 06/19/23 Unknown History capsule,extended release losartan 50 mg tablet 50 mg PO QDAY #90 tabs 03/18/24 Unknown Rx furosemide 40 mg tablet 40 mg PO DAILY #90 TABLETS 06/18/24 Unknown Rx albuterol sulfate 90 mcg/actuation 2 puff inhalation Q6H PRN PRN 07/30/24 Unknown Rx aerosol inhaler Shortness Of Breath #8.5 grams budesonide-formoterol HFA 160 2 puff inhalation BID #3 ea 07/30/24 Unknown Rx mcg-4.5 mcg/actuation aerosol inhaler (Symbicort) rosuvastatin 40 mg tablet 40 mg PO QHS #90 tabs 08/14/24 Unknown Rx isosorbide mononitrate 30 mg 30 mg PO DAILY #90 TABLETS 09/09/24 Unknown Rx tablet,extended release 24 hr ipratropium 0.5 mg-albuterol 3 mg 3 ml continuous nebulization Q6H 09/10/24 Unknown Rx (2.5 mg base)/3 mL nebulization PRN shortness of breath or soln wheezing #180 mL met (more content not included)... Normal [facility] Immature granulocytes/100 WB C Auto (Bld)Ordered By: Yecenia Harvey on 10-27-2024 Immature granulocytes/100 WBC (Bld) 0.700 % 0.0-0.[address] [facility] Comment on above: IG% - Immature Granu locytes (promyelocytes, myelocytes and metamyelocytes) > 1% indicates that a LEFT SHIFT is Present. Ketones Test strip Ql (U)Ord ered By: Yecenia Harvey on 10-27-2024 Ketones Ql (U) Negative Negative [facility] L501.4020on 10-27-2024 TROPONIN-I HS 14 pg/mL Normal 3.0-78.[address] [facility] Comment on above: Order Comment: 'TROP ' Serial specimen #1, #2 or #3: 1 Result Comment: Aline petersen Note: New Test Units and Gender Specific Reference Ranges. For more information see Policy Stat Procedure [place] High Sensitivity Troponin (TNIH) and attachments. Performed By: #### L 300.8000 #### [facility] [address] [place], [address] Lymphocytes Auto (Unsp spec) [#/Vol]Ordered By: Yecenia Harvey on 10-27-2024 Lymphocytes (Bld) [#/Vol] 1.48 10*3/uL 0.83-4.[address] [facility] Lymphocytes/100 WBC Auto (Un sp spec)Ordered By: Yecenia Harvey on 10-27-2024 Lymphocytes/100 WBC (Bld) 12.9 % Low 19-[address] [facility] Microscopic analysis of urin e for red blood cells (RBC)Ordered By: Yecenia Harvey on 10-27-2024 Urine RBC 0-5 SEEN /hpf 0-[address] [facility] Monocyte percentageOrdered B y: Yecenia Harvey on 10-27-2024 Monocytes/100 WBC (Bld) 6.3 % 0-10 [facility] Mucus LM Ql (Urine sed)Order ed By: Yecenia Harvey on 10-27-2024 Mucus Ql (Urine sed) 0 SEEN /hpf [facility] Neutrophil percentageOrdered By: Yecenia Harvey on 10-27-2024 Neutrophils/100 WBC (Bld) 79.5 % High 47-[address] [facility] Nitrite Test strip Ql (U)Ord ered By: Yecenia Harvey on 10-27-2024 Nitrite Ql (U) Negative Negative [facility] Nucleated red blood cell per centageOrdered By: Yecenia Harvey on 10-27-2024 Nucleated RBC/100 WBC (Bld) [Ratio] 0 % 0-[address] [facility] Protein Test strip Ql (U)Ord ered By: Yecenia Harvey on 10-27-2024 Protein Ql (U) 30 mg/dl High Negative [facility] Spine Cervical without Contr ason 10-27-2024 Spine Cervical without Contras [facility] Imaging Services [address] [place], [place] [address] Spine Cervical without Contras MR#: [id number] Acct: [id number] Name: HORACE HENDERSON Rep #: [id number] : 1955 M 69 From: Pablo Gross MD PCP: Dr. George Vázquez MD Status: REG ER Study: Spine Cervical without Contras Date of Exam: 12/28/23 Exam# [id number] Ordering Dr: Yecenia Harvey PA [id number] EXAM: CT CERVICAL SPINE WITHOUT INTRAVENOUS CONTRAST CLINICAL INDICATION: head injury TECHNIQUE: Helically acquired images were obtained of the cervical spine without intravenous contrast. 2D reformatted images were reviewed. This CT exam was performed using one or more of the following dose reduction techniques: automated exposure control, adjustment of the mA and/or kV according to patient size, and/or use of iterative reconstruction technique. RADIATION DOSE: CTDIvol = 27.06 mGy, DLP = 528.77 mGy-cm COMPARISON: No relevant prior studies available. FINDINGS: VERTEBRAE: Moderate left C3-C4 left C4-C5 degenerative facet arthropathy. Mild to moderate right C2-C3 and right C4-C5 degenerative facet arthropathy. No significant arthropathy of the remaining cervical facet joints. No acute or remote fractures of the vertebral bodies and posterior osseous elements of the cervical spine. No traumatic subluxation or malalignment of cervical spine, craniocervical junction and cervicothoracic junction. Normal central canal and cervical intervertebral neuroforamina. No discrete lytic or blastic abnormality. DISCS/SPINAL CANAL/NEURAL FORAMINA: Unremarkable. Normal cervical disc space heights. Mild ventral extradural defect due to posterior bulging annulus at C5-C6 and C6-C7 disc space level. SOFT TISSUES: Unremarkable. No prevertebral soft tissue swelling. LYMPH NODES: Unremarkable. No cervical adenopathy. LUNG APICES: Centrilobular cysts and paraseptal cysts in both lung apices. CT/Spine Cervical without Contras IMPRESSION: No acute or remote fractures of the cervical spine and no traumatic subluxation of the cervical spine and craniocervical junction and cervicothoracic junction.. Electronically Signed: Pablo Gross MD at 13:00 EST , CC: Dr. George Vázquez MD; RENEE Beckett University Lecturer: Signed Normal [facility] Troponin IOrdered By: Yecenia griggs on 10-27-2024 Troponin I High Sensitivity 14 pg/mL 3.0-78.[address] [facility] Comment on above: Please Note: New Alexandra t Units and Gender Specific Reference Ranges. For more information see Policy Stat Procedure [place] High Sensitivity Troponin (TNIH) and attachments. Urinalysis, Completeon 10-27 BACTERIA 1+ /hpf Normal None Seen [facility] Comment on above: Order Comment: SUSAN CTOR TO SPECIFY Performed By: #### L 300.8000 #### [facility] [address] [place], [address] EPI,SQUAMOUS 0-5 SEEN Normal 0-[address] [facility] Comment on above: Order Comment: SUSAN CTOR TO SPECIFY Performed By: #### L 300.8000 #### [facility] [address] [place], [address] RBC 0-5 SEEN Normal 0-[address] [facility] Comment on above: Order Comment: SUSAN CTOR TO SPECIFY Performed By: #### L 300.8000 #### [facility] [address] [place], [address] Mucus Ql (Urine sed) [address] [facility] Comment on above: Order Comment: COLLE CTOR TO SPECIFY Performed By: #### L 300.8000 #### [facility] [address] [place], [place], [address] WBC 0 SEEN Normal 0-[address] [facility] Comment on above: Order Comment: SUSAN HICKMANOR TO SPECIFY Performed By: #### L 300.8000 #### [facility] [address] [place], [place], [id number] Urine blood detectionOrdered By: Yecenia Harvey on 10-27-2024 Urine Occult Blood 50 /ul High Negative [facility] Urine clarityOrdered By: Celia Harvey on 10-27-2024 Clarity (U) Clear Clear [facility] Urine color determinationOrd ered By: Yecenia Harvey on 10-27-2024 Color (U) Yellow Yellow [facility] Urine leukocyte esterase det ection by dipstickOrdered By: Yecenia Harvey on 10-27-2024 Leukocyte esterase Test strip Ql (U) Negative Negative [facility] Urine pHOrdered By: Yecenia rivas on 10-27-2024 pH (U) 7.0 [pH] 5.0 - 8.[address] [facility] Urine sediment bacteria coun t by microscopy (number/high power field)Ordered By: Yecenia Harvey on 10-27-2024 Bacteria LM.HPF (Urine sed) [#/Area] 1 /[HPF] None Seen [facility] Urine specific gravity measu rementOrdered By: Yecenia Harvey on 10-27-2024 Specific gravity (U) [Rel density] 1.005 1.002-1.[address] [facility] Urobilinogen Ql (U)Ordered B y: Yecenia Harvey on 10-27-2024 Urine Urobilinogen Normal mg/dl Normal [facility] White blood cell countOrdere d By: Yecenia Harvey on 10-27-2024 Urine WBC 0 SEEN /hpf 0-[address] [facility] CNPNon 09-18-2024 CNPN Telephone (INTWS) -------- HORACE HENDERSON ([id number]) 1955 M Date Time Provider Department 09/18/24 GEORGE VÁZQUEZ INTMWS During your visit today, we recorded the following information about you: Debbie Portillo RN 09/18/2024 2:35 PM Signed Patient calling for referral to see a new Souvenir Assembler for COPD. Dr. rOellana. . He was seeing Dr. Hall who is no longer @ [facility]. TOMMIE Dennis Victor H, MD 09/18/2024 3:01 PM Signed ASSESSMENT/PLAN: 1. COPD (chronic obstructive pulmonary disease) with chronic bronchitis (HCC) - ICD9: 491.20, ICD10: J44.89 (primary diagnosis) - CONSULT TO PULMONARY MEDICINE 2. Acute on chronic respiratory failure with hypoxia (HCC) - ICD9: 518.84, 799.02, ICD10: J96.21 - CONSULT TO PULMONARY MEDICINE 3. Nodule of lower lobe of left lung (low dose lung CT) - ICD9: 793.11, ICD10: R91.1 - CONSULT TO PULMONARY MEDICINE MD Kaiden Godfrey Helen E, LPN 09/18/2024 3:26 PM Signed Referral faxed to Dr. Orellana. Pat Richey LPN Allergies As of Date: 09/18/2024 Noted Allergy Reaction LEVOFLOXACIN 06/01/2020 14 - Other: See Comments Comments: Tachycardia. Achilles tendonitis. Date Reviewed: 09/12/2024 Reviewed by: Pat Richey LPN - Fully Assessed Reason for Visit: Consult [502] Primary Visit Diagnosis:COPD (chronic obstructive pulmonary disease) with chronic bronchitis (HCC) [J44.89] Other Visit Diagnoses:Acute on chronic respiratory failure with hypoxia (HCC) [J96.21] Nodule of lower lobe of left lung (low dose lung CT) [R91.1] Order(s):CONSULT TO PULMONARY MEDICINE [[id number]] Order #: [id number]: 1 Prescriptions as of 09/18/2024 - nystatin (MYCOSTATIN) 100,000 unit/mL suspension Take 5 mL by mouth four times daily. 1tsp swish in mouth for several minutes, then swallow (or expectorate) 4 times daily until gone. - Magnesium Oxide 500 mg magnesium tab Take 1 tablet by mouth once daily. - albuterol HFA (PROAIR HFA) 90 mcg/actuation inhaler Inhale 2 Puffs as instructed every 6 hours as needed for wheezing/shortness of breath. - ipratropium-albuterol (DUONEB) 0.5 mg-3 mg(2.5 mg base)/3 mL nebu Inhale 3 mL as instructed every 6 hours as needed. - clopidogrel (PLAVIX) 75 mg tablet Take 1 tablet by mouth once daily. - ezetimibe (ZETIA) 10 mg tablet Take 1 tablet by mouth once daily. - metoprolol succinate ER (TOPROL XL) 50 mg 24 hr tablet Take 1 tablet by mouth once daily. From [facility]. - potassium chloride SR (MICRO-K) 10 mEq CR capsule Take 1 capsule by mouth two times a day. - pantoprazole DR (PROTONIX) 20 mg tablet Take 1 tablet by mouth daily before breakfast. Take on empty stomach, 1/2 hr before meal. - losartan (COZAAR) 50 mg tablet Take 1 tablet by mouth once daily. Per [facility]. - budesonide-formoterol (SYMBICORT) 160-4.5 mcg/actuation inhaler Inhale 2 Puffs as instructed two times a day. - furosemide (LASIX) 40 mg tablet Take 1 tablet by mouth once daily. - isosorbide mononitrate ER (IMDUR) 30 mg 24 hr tablet Take 30 mg by mouth once daily. 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.1] 10/14/1995 OA (osteoarthritis) of knee [M17.9] 05/08/2012 Diverticulitis [K57.92] 01/09/2014 Sciatica [M54.30] 06/21/2012 04/29/2015 Hyperlipidemia [E78.5] 08/04/2012 Perforated diverticulum of large intestine [K57*08/20/2012 10/27/2012 Tobacco use disorder [F17.200] 10/27/2012 COPD (chronic obstructive pulmonary disease) wi*10/07/2013 Primary localized osteoarthrosis, lower leg [M1*11/04/2013 04/29/2015 Knee 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 [Z96.659] 11/04/2013 04/29/2015 Lumbar radiculopathy [M54.16] 12/13/2013 04/17/2018 DDD (degenerative disc disease), lumbar [M51.36*12/13/2013 Lumbar disc displacement without myelopathy [M5*04/04/2014 04/17/2018 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*05/08/2015 Presence of drug coated stent in right coronary*05/08/2015 Presence of drug coated stent in left circumfle*05/08/2015 Dupuytren's contracture of right hand [M72.0] 11/05/2015 Tobacco abuse [Z72.0] 11/06/2015 11/15/2016 Essential hypertension [I10] 11/10/2016 11/15/2016 Achilles tendinitis of both lower extremities [*06/23/2020 Nodule of lower lobe of left lung (low dose severino*05/05/2021 Status post insertion of drug-eluting stent int*09/30/2021 Acute on chronic respiratory failure with hypox*10/30/2022 Gastroesophageal reflux disease [K21.9] 05/24/2023 Encounter Status:Closed by PAT RICHEY on 09/18/24 Normal [facility] 12 Lead EKGon 09-17-2024 12 Lead EKG [facility] Cardiovascular Services [address] [place] [address] 12 Lead EKG 09/17/24 1625 MR#: [id number] Acct: [id number] Name: HORACE HENDERSON Rep #: [id number] : 1955 69 From: Tomy Hanks MD Attending Dr: Status: DEP ER Ordering Dr: Francisco Murillo MD Date: 09/17/24 Location: ED Sex: M C Admitted: Test Reason : Blood Pressure : */* mmHG Vent. Rate : 75 BPM Atrial Rate : 75 BPM P-R Int : 142 ms QRS Dur : 134 ms QT Int : 410 ms P-R-T Axes : 61 -69 34 degrees QTcB Int : 457 ms Normal sinus rhythm Left axis deviation Right bundle branch block Abnormal ECG Confirmed by LATONYA LOPEZ, TOMY ([id number]), editor greeting card KEIRY URBANO ([id number]) on 09/18/2024 8:18:58 AM Referred By: Confirmed By: TOMY HANKS MD 09/18/24817 Date Tomy Hanks MD CC: Dr. Francisco Murillo MD; Dr. George Vázquez MD Signed Normal [facility] Absolute neutrophil countOrd ered By: Francisco Murillo on 09-17-2024 Neutrophils (Bld) [#/Vol] 4.5 10*3/uL 2.0-7.[address] [facility] Basic Metabolic Profile (BMP )on 09-17-2024 BUN/CRE 10.5 RATIO Normal 08-[address] [facility] Comment on above: Order Comment: 'TROP ' Serial specimen #1, #2 or #3: 1 Performed By: #### L 500.2500, L501.4020, L100.0100 ####[facility] [address] [place], [address] CA,Total 9.9 mg/dL Normal 8.5-10.[address] [facility] Comment on above: Order Comment: 'TROP ' Serial specimen #1, #2 or #3: 1 Performed By: #### L 500.2500, L501.4020, L100.0100 ####[facility] [address] [place], [address] Chloride [Moles/Vol] 103 mmol/L Normal 98-107 [facility] Comment on above: Order Comment: 'TROP ' Serial specimen #1, #2 or #3: 1 Performed By: #### L 500.2500, L501.4020, L100.0100 ####[facility] [address] [place], [address] CO2 [Moles/Vol] 28.0 mmol/L Normal 21.0-32.[address] [facility] Comment on above: Order Comment: 'TROP ' Serial specimen #1, #2 or #3: 1 Performed By: #### L 500.2500, L501.4020, L100.0100 ####[facility] [address] [place], [address] Creatinine [Mass/Vol] 1.52 mg/dL High 0.70-1.30 [facility] Comment on above: Order Comment: 'TROP ' Serial specimen #1, #2 or #3: 1 Result Comment: The validity of the calculated GFR GFRAA in patients over 70 years has not been determined. Clinical correlation is essential. Performed By: #### L 500.2500, L501.4020, L100.0100 ####[facility] [address] [place], [address] ECRCL 46.14 ml/min Normal [facility] Comment on above: Order Comment: 'TROP ' Serial specimen #1, #2 or #3: 1 Performed By: #### L 500.2500, L501.4020, L100.0100 ####[facility] [address] [place], [address] EST GFR - AA 59 mL/min Low >[address] [facility] Comment on above: Order Comment: 'TROP ' Serial specimen #1, #2 or #3: 1 Result Comment: Afri can [place] GFR Calc Performed By: #### L 500.2500, L501.4020, L100.0100 ####[facility] [address] [place], [address] GAP 6 Normal 5-[address] [facility] Comment on above: Order Comment: 'TROP ' Serial specimen #1, #2 or #3: 1 Performed By: #### L 500.2500, L501.4020, L100.0100 ####[facility] [address] [place], [address] GFR/1.73 sq M.predicted among non-blacks MDRD (S/P/Bld) [Vol rate/Area] 48 mL/min/{1.73_m2} Low >[address] [facility] Comment on above: Order Comment: 'TROP ' Serial specimen #1, #2 or #3: 1 Result Comment: Non- GFR Calc Performed By: #### L 500.2500, L501.4020, L100.0100 ####[facility] [address] [place], [address] Glucose [Mass/Vol] 117 mg/dL High 74-106 [facility] Comment on above: Order Comment: 'TROP ' Serial specimen #1, #2 or #3: 1 Result Comment: Fast ing Glucose result from 100 to 125 mg/dL suggests IMPAIRED HOMEOSTASIS per A.D.A. criteria. Performed By: #### L 500.2500, L501.4020, L100.0100 ####[facility] [address] [place], [address] Potassium [Moles/Vol] 3.7 mmol/L Normal 3.5-5.1 [facility] Comment on above: Order Comment: 'TROP ' Serial specimen #1, #2 or #3: 1 Performed By: #### L 500.2500, L501.4020, L100.0100 ####[facility] [address] [place], [address] Sodium [Moles/Vol] 137 mmol/L Normal 136-145 [facility] Comment on above: Order Comment: 'TROP ' Serial specimen #1, #2 or #3: 1 Performed By: #### L 500.2500, L501.4020, L100.0100 ####[facility] [address] [place], [address] Urea nitrogen [Mass/Vol] 16 mg/dL Normal 7-[address] [facility] Comment on above: Order Comment: 'TROP ' Serial specimen #1, #2 or #3: 1 Performed By: #### L 500.2500, L501.4020, L100.0100 ####[facility] [address] [place], [address] Basophil percentageOrdered B y: Francisco Murillo on 09-17-2024 Basophils/100 WBC (Bld) 0.8 % 0-1 [facility] Blood urea nitrogen (BUN)/cr eatinine ratioOrdered By: Francisco Murillo on 09-17-2024 Urea nitrogen/Creatinine [Mass ratio] 10.5 mg/mg 10- [facility] CBC W/Diff, Automatedon 08-30 Absolute Lymph 1.40 X10 3/uL Normal 0.83-4.[address] [facility] Comment on above: Performed By: #### L 100.0100 #### [facility] Laboratory [address] [place], [address] Absolute Neut 4.5 X10 3/uL Normal 2.0-7.[address] [facility] Comment on above: Performed By: #### L 100.0100 #### [facility] [address] [place], [address] Basophils/100 WBC (Bld) 0.8 % Normal 0-1 [facility] Comment on above: Performed By: #### L 100.0100 #### [facility] [address] [place], [address] Eosinophils/100 WBC (Bld) 1.7 % Normal 0-[address] [facility] Comment on above: Performed By: #### L 100.0100 #### [facility] [address] [place], [address] Erythrocyte distribution width (RBC) [Ratio] 13.2 % Normal 11.6-14.[address] [facility] Comment on above: Performed By: #### L 100.0100 #### [facility] [address] [place], [address] Hematocrit (Bld) [Volume fraction] 46.7 % Normal 40-[address] [facility] Comment on above: Performed By: #### L 100.0100 #### [facility] [address] [place], [address] Hemoglobin (Bld) [Mass/Vol] 16.0 g/dL Normal 13.0-16.[address] [facility] Comment on above: Performed By: #### L 100.0100 #### [facility] [address] [place], [address] IG% 0.200 Normal 0.0-0.[address] [facility] Comment on above: Result Comment: IG% - Immature Granulocytes (promyelocytes, myelocytes and metamyelocytes) > 1% indicates that a LEFT SHIFT is Present. Performed By: #### L 100.0100 #### [facility] [address] [place], [address] Lymphocytes/100 WBC (Bld) 21.4 % Normal 19-[address] [facility] Comment on above: Performed By: #### L 100.0100 #### [facility] [address] [place], [address] MCH (RBC) [Entitic mass] 32.6 pg High 27.0-32.[address] [facility] Comment on above: Performed By: #### L 100.0100 #### [facility] [address] [place], [address] MCHC (RBC) [Mass/Vol] 34.3 g/dL Normal 32-36 [facility] Comment on above: Performed By: #### L 100.0100 #### [facility] [address] [place], [address] MCV (RBC) [Entitic vol] 95.1 fL High 80-94 [facility] Comment on above: Performed By: #### L 100.0100 #### [facility] [address] [place], [address] Monocytes/100 WBC (Bld) 7.2 % Normal 0-10 [facility] Comment on above: Performed By: #### L 100.0100 #### [facility] [address] [place], [address] Neutrophils/100 WBC (Bld) 68.7 % Normal 47-[address] [facility] Comment on above: Performed By: #### L 100.0100 #### [facility] [address] [place], [address] Nucleated RBC (Bld) [#/Vol] 0 10*3/uL Normal 0-[address] [facility] Comment on above: Performed By: #### L 100.0100 #### [facility] [address] [place], [address] Platelet mean volume (Bld) [Entitic vol] 9.4 fL Normal 6.2-12.[address] [facility] Comment on above: Performed By: #### L 100.0100 #### [facility] [address] [place], [address] Platelets (Bld) [#/Vol] 166 10*3/uL Normal 150-[address] [facility] Comment on above: Performed By: #### L 100.0100 #### [facility] [address] [place], [address] RBC (Bld) [#/Vol] 4.91 10*6/uL Normal 4.6-6.2 [facility] Comment on above: Performed By: #### L 100.0100 #### [facility] [address] [place], [address] RDW SD 46.5 fl High 35.1-43.[address] [facility] Comment on above: Performed By: #### L 100.0100 #### [facility] [address] [place], [address] WBC (Bld) [#/Vol] 6.5 10*3/uL Normal 4.4-11.0 [facility] Comment on above: Performed By: #### L 100.0100 #### [facility] [address] [place], [address] Absolute Neut Normal 2.0-7.[address] [facility] Comment on above: Result Comment: This specimen has been REJECTED due to Laboratory criteria: Clotted. ELSA CARRERO has been notified of need of recollection. 09/17/241729 Berna Garciae Performed By: #### L 500.2500, L501.4020, L100.0100 ####[facility] [address] [facility] [address] HCT Normal 40-[address] [facility] Comment on above: Result Comment: This specimen has been REJECTED due to Laboratory criteria: Clotted. ELSA CARRERO has been notified of need of recollection. 09/17/241729 Berna Shenhope Performed By: #### L 500.2500, L501.4020, L100.0100 ####[facility] [address] [place], [address] HGB Normal 13.0-16.[address] [facility] Comment on above: Result Comment: This specimen has been REJECTED due to Laboratory criteria: Clotted. ELSA CARRERO has been notified of need of recollection. 09/17/241729 Berna Wolfhope Performed By: #### L 500.2500, L501.4020, L100.0100 ####[facility] [address] [place], [address] MCH Normal 27.0-32.[address] [facility] Comment on above: Result Comment: This specimen has been REJECTED due to Laboratory criteria: Clotted. ELSA CARRERO has been notified of need of recollection. 09/17/241729 Berna Wolfhope Performed By: #### L 500.2500, L501.4020, L100.0100 ####[facility] [address] [place], [address] MCHC Normal 32-[address] [facility] Comment on above: Result Comment: This specimen has been REJECTED due to Laboratory criteria: Clotted. ELSA CARRERO has been notified of need of recollection. 09/17/241729 Berna Wolfhope Performed By: #### L 500.2500, L501.4020, L100.0100 ####[facility] [address] [place], [address] MCV Normal 80-[address] [facility] Comment on above: Result Comment: This specimen has been REJECTED due to Laboratory criteria: Clotted. ELSA ALISE has been notified of need of recollection. 09/17/241729 Berna Wolfhope Performed By: #### L 500.2500, L501.4020, L100.0100 ####[facility] [address] [place], [address] NEUT% Normal 47-[address] [facility] Comment on above: Result Comment: This specimen has been REJECTED due to Laboratory criteria: Clotted. ELSA ALISE has been notified of need of recollection. 09/17/241729 Berna Wolfhope Performed By: #### L 500.2500, L501.4020, L100.0100 ####[facility] [address] [place], [address] PLT Normal 150-[address] [facility] Comment on above: Result Comment: This specimen has been REJECTED due to Laboratory criteria: Clotted. ELSA ALISE has been notified of need of recollection. 09/17/241729 Berna Wolfhope Performed By: #### L 500.2500, L501.4020, L100.0100 ####[facility] [address] [place], [address] RBC Normal 4.6-6.[address] [facility] Comment on above: Result Comment: This specimen has been REJECTED due to Laboratory criteria: Clotted. ELSA ANSHUMATHEUSDEANDRE has been notified of need of recollection. 09/17/241729 Berna Wolfhope Performed By: #### L 500.2500, L501.4020, L100.0100 ####[facility] [address] [place], [address] RDW CV Normal 11.6-14.[address] [facility] Comment on above: Result Comment: This specimen has been REJECTED due to Laboratory criteria: Clotted. ELSA CARRERO has been notified of need of recollection. 09/17/241729 Berna Wolfhope Performed By: #### L 500.2500, L501.4020, L100.0100 ####[facility] [address] [place], [address] RDW SD Normal 35.1-43.[address] [facility] Comment on above: Result Comment: This specimen has been REJECTED due to Laboratory criteria: Clotted. ELSA CARRERO has been notified of need of recollection. 09/17/241729 Berna Wolfhope Performed By: #### L 500.2500, L501.4020, L100.0100 ####[facility] [address] [place], [address] WBC Normal 4.4-11.[address] [facility] Comment on above: Result Comment: This specimen has been REJECTED due to Laboratory criteria: Clotted. ELSA CARRERO has been notified of need of recollection. 09/17/241729 Berna Wolfhope Performed By: #### L 500.2500, L501.4020, L100.0100 ####[facility] [address] [place], [address] Carbon dioxide measurementOr dered By: Francisco Murillo on 09-17-2024 CO2 [Moles/Vol] 28.0 mmol/L 21.0-32.[address] [facility] Chest PA and Lateralon 09-17 Chest PA and Lateral [facility] Imaging [place] [address] Chest PA and Lateral MR#: [id number] Acct: [id number] Name: HORACE HENDERSON Rep #: [id number] : 1955 M 69 From: Prateek Garcia MD PCP: Dr. George Vázquez MD Status: REG ER Study: Chest PA and Lateral Date of Exam: 09/17/24 Exam# [id number] Ordering Dr: Francisco Murillo MD [id number] STUDY: X-RAY CHEST REASON FOR EXAM: Male, 69 years old. dyspnea TECHNIQUE: PA and lateral COMPARISON: March 17, 2023 FINDINGS: Lungs are hyperinflated but clear of infiltrate. There is blunting of right costophrenic angle possibly representing tiny effusion versus pleural thickening. Normal size heart. Normal mediastinum and fabricio. Normal visualized pulmonary arteries. Normal visualized aortic arch and descending thoracic aorta. Postop change status post median sternotomy and CABG Dorsal spine demonstrates degenerative change. Normal visualized ribs, clavicles, and shoulders. There is no demonstrated abnormality of the visualized soft tissue structures of the upper abdomen. RAD/Chest PA and Lateral IMPRESSION: COPD and ASHD.. Probable pleural thickening though cannot definitively exclude tiny right effusion. Otherwise no acute cardiopulmonary pathology Electronically Signed: Prateek Garcia MD at 17:13 EST Reading Location ID and State: [facility] / [place] Tel , Service support , CC: Dr. Francisco Murillo MD; Dr. George Vázquez MD University Lecturer: Signed Normal [facility] Chloride measurementOrdered By: Francisco Murillo on 09-17-2024 Chloride [Moles/Vol] 103 mmol/L 98-107 [facility] Emergency Department Summary on 09-17-2024 Emergency Department Summary [facility] Medical Records Department [address] [place] [address] Emergency Department Summary 09/17/24 MR#: [id number] Acct: [id number] Name: HORACE HENDERSON Rep #: [id number] : 1955 69 From: Francisco Murillo MD PCP: Dr. George Vázquez MD Status:DEP ER Location: ED HPI History of Present Illness Chief Complaint: Shortness of Breath Informant: patient Onset/Context/Timing Onset: Weeks Context: gradual Timing: Intermittent Quality: Positive for Dyspnea on exertion Current Severity: Mild Maximum Severity: Mild Worsened by: Coughing Relieved by: Rest and Oxygen Associated Symptoms cough, green sputum and other; Negative for fever Chest Pain: Positive for None Narrative Narrative: 69-year-old male history of COPD on 2 L oxygen at home at night, hypertension, CABG about 30 years ago. States he had URI symptoms 2 to 3 weeks ago. He has had shortness of breath. He is currently on his third antibiotic Augmentin. He has been on prednisone for 5 days that he is currently finished with. States initially had a cough and greenish sputum is now clear. Denies any chest pain. Denies any fever. Denies any leg swelling or calf pain. No hemoptysis. She is really not wheezing at this time. Has had no chest pain. No history of DVT or PE. No recent travel, surgery or immobilization. PE Risk Factors: Negative for Cancer, OCP + Smoking + > 35, Prior DVT or PE, Recent immobilization, Recent surgery or Recent travel Prior similar symptoms: Yes Recent Illness/Hospitalization: No PFSH PFSH Medical History Essential hypertension Alcohol use History of steroid therapy Arthritis High cholesterol Smoker On home oxygen therapy COPD (chronic obstructive pulmonary disease) Shortness of breath on exertion History of pain when walking Hypertension History of echocardiogram History of stress test Cardiology follow-up encounter [place] Nodule of lower lobe of left lung Perforated diverticulum of large intestine Presence of stent in coronary artery ( 11/12/21) Easy bruising Excessive bleeding History of ulceration Gastric reflux History of diverticulitis Chronic bronchitis Nicotine dependence Osteoarthritis DDD (degenerative disc disease), lumbar Atherosclerosis of coronary artery of [place] heart without angina pectoris Atherosclerosis of coronary artery bypass graft without angina pectoris Hyperlipidemia Home Medications ???Medication ???Instructions ???Recorded ???Last Taken ???Type clopidogrel 75 mg tablet (Plavix) 75 mg PO DAILY anti platelet #90 10/04/21 11/26/22 Rx tabs omeprazole 40 mg capsule,delayed 40 mg PO DAILY 01/13/23 Unknown History release potassium chloride 10 mEq 10 meq PO DAILY PRN 06/19/23 Unknown History capsule,extended release ezetimibe 10 mg tablet (Zetia) 10 mg PO DAILY 03/18/24 Unknown History losartan 50 mg tablet 50 mg PO QDAY #90 tabs 03/18/24 Unknown Rx furosemide 40 mg tablet 40 mg PO DAILY #90 TABLETS 06/18/24 Unknown Rx albuterol sulfate 90 mcg/actuation 2 puff inhalation Q6H PRN PRN 07/30/24 Unknown Rx aerosol inhaler Shortness Of Breath #8.5 grams budesonide-formoterol HFA 160 2 puff inhalation BID #3 ea 07/30/24 Unknown Rx mcg-4.5 mcg/actuation aerosol inhaler (Symbicort) roflumilast 500 mcg tablet 500 mcg PO DAILY #30 tabs 07/30/24 Unknown Rx (Daliresp) tiotropium bromide 2.5 2 inh inhalation QDAY #1 ea 07/30/24 Unknown Rx mcg/actuation mist for inhalation (Spiriva Respimat) rosuvastatin 40 mg tablet 40 mg PO QHS #90 tabs 08/14/24 Unknown Rx isosorbide mononitrate 30 mg 30 mg PO DAILY #90 TABLETS 09/09/24 Unknown Rx tablet,extended release 24 hr ipratropium 0.5 mg-albuterol 3 mg 3 ml continuous nebulization Q6H 09/10/24 Unknown Rx (2.5 mg base)/3 mL nebulization PRN shortness of breath or soln wheezing #180 mL metoprolol succinate 50 mg 50 mg PO DAILY #180 tabs 09/10/24 Unknown Rx tablet,extended release 24 hr amoxicillin 875 mg-potassium 1 tab PO BID #20 tabs 09/12/24 Unknown Rx clavulanate 125 mg tablet prednisone 20 mg tablet 40 mg (2 x 20 mg) PO DAILY copd 10 09/17/24 Unknown Rx days #20 tabs Allergy/AdvReac Type Severity Reaction Status Date / Time levofloxacin (From Levaquin) AdvReac Severe tendonitis Verified 09/17/24 15:53 Family History Father CAD (coronary artery disease) Brother Hypertension Grandfather Pancreatic cancer Grandmother Heart disease Surgical History History of laparoscopic cholecystectomy S/P laparoscopic cholecystectomy Status post double vessel coronary artery bypass Presence of coronary angioplasty implant and graft ( 09/29/21) Hx of lef (more content not included)... Normal [facility] Eosinophil percentageOrdered By: Francisco Murillo on 09-17-2024 Eosinophils/100 WBC (Bld) 1.7 % 0-[address] [facility] Erythrocyte distribution wid th ratioOrdered By: Francisco Murillo on 09-17-2024 Erythrocyte distribution width (RBC) [Ratio] 13.2 % 11.6-14.[address] [facility] Erythrocyte distribution wid th standard deviationOrdered By: Francisco Murillo on 09-17-2024 Erythrocyte distribution width (RBC) [Entitic vol] 46.5 fL High 35.1-43.[address] [facility] Estimated glomerular filtrat ion rate (GFR) AmericanOrdered By: Francisco Murillo on 09-17-2024 Estimated GFR (MDRD) Amer 59 mL/min Low >[address] [facility] Comment on above: GFR Calc Estimation of creatinine rosi aranceOrdered By: Francisco Murillo on 09-17-2024 Estimated Creatinine Clearance Calc 46.14 ml/min [facility] Glomerular filtration rate ( GFR) estimationOrdered By: Francisco Murillo on 09-17-2024 Estimated GFR (MDRD) Non-Af Amer 48 mL/min Low >[address] [facility] Comment on above: Non- GFR Calc Glucose measurementOrdered B y: Francisco Murillo on 09-17-2024 Glucose [Mass/Vol] 117 mg/dL High 74-106 [facility] Comment on above: Fasting Glucose resu lt from 100 to 125 mg/dL suggests IMPAIRED HOMEOSTASIS per A.D.A. criteria. Hematocrit Auto (Bld) [Volum e fraction]Ordered By: Francisco Murillo on 09-17-2024 Hematocrit (Bld) [Volume fraction] 46.7 % 40-[address] [facility] Hemoglobin measurementOrdere d By: Francisco Murillo on 09-17-2024 Hemoglobin (Bld) [Mass/Vol] 16.0 g/dL 13.0-16.[address] [facility] Immature granulocytes/100 WB C Auto (Bld)Ordered By: Francisco Murillo on 09-17-2024 Immature granulocytes/100 WBC (Bld) 0.200 % 0.0-0.[address] [facility] Comment on above: IG% - Immature Granu locytes (promyelocytes, myelocytes and metamyelocytes) > 1% indicates that a LEFT SHIFT is Present. L501.4020on 09-17-2024 TROPONIN-I HS 9 pg/mL Normal 3.0-78.[address] [facility] Comment on above: Order Comment: 'TROP ' Serial specimen #1, #2 or #3: 1 Result Comment: Plea se Note: New Test Units and Gender Specific Reference Ranges. For more information see Policy Stat Procedure [place] High Sensitivity Troponin (TNIH) and attachments. Performed By: #### L 500.2500, L501.4020, L100.0100 ####[facility] [address] [place], [address] Lymphocytes Auto (Unsp spec) [#/Vol]Ordered By: Francisco Murillo on 09-17-2024 Lymphocytes (Bld) [#/Vol] 1.40 10*3/uL 0.83-4.[address] [facility] Lymphocytes/100 WBC Auto (Un sp spec)Ordered By: Francisco Murillo on 09-17-2024 Lymphocytes/100 WBC (Bld) 21.4 % 19-[address] [facility] MCV (mean corpuscular volume ) determinationOrdered By: Francisco Murillo on 09-17-2024 MCV (RBC) [Entitic vol] 95.1 fL High 80-94 [facility] Mean corpuscular hemoglobin (MCH) determinationOrdered By: Francisco Murillo on 09-17-2024 MCH (RBC) [Entitic mass] 32.6 pg High 27.0-32.[address] [facility] Mean corpuscular hemoglobin concentration (MCHC) determinationOrdered By: Francisco Murillo on 09-17-2024 MCHC (RBC) [Mass/Vol] 34.3 g/dL 32-36 [facility] Mean platelet volume determi nationOrdered By: Francisco Murillo on 09-17-2024 Platelet mean volume (Bld) [Entitic vol] 9.4 fL 6.2-12.[address] [facility] Monocyte percentageOrdered B y: Francisco Murillo on 09-17-2024 Monocytes/100 WBC (Bld) 7.2 % 0-10 [facility] Neutrophil percentageOrdered By: Francisco Murillo on 09-17-2024 Neutrophils/100 WBC (Bld) 68.7 % 47-[address] [facility] Nucleated red blood cell per centageOrdered By: Francisco Murillo on 09-17-2024 Nucleated RBC/100 WBC (Bld) [Ratio] 0 % 0-[address] [facility] Platelet countOrdered By: Jose Murillo on 09-17-2024 Platelets (Bld) [#/Vol] 166 10*3/uL 150-[address] [facility] Potassium measurementOrdered By: Francisco Murillo on 09-17-2024 Potassium [Moles/Vol] 3.7 mmol/L 3.5-5.1 [facility] RBC Auto (Bld) [#/Vol]Ordere d By: Francisco Murillo on 09-17-2024 RBC (Bld) [#/Vol] 4.91 10*6/uL 4.6-6.2 [facility] Serum anion gap measurementO rdered By: Francisco Murillo on 09-17-2024 Anion gap [Moles/Vol] 6 mmol/L 5-15 [facility] Serum or plasma calcium jimbo urement (mass/volume)Ordered By: Francisco Murillo on 09-17-2024 Calcium [Mass/Vol] 9.9 mg/dL 8.5-10.1 [facility] Serum or plasma creatinine m easurement (mass/volume)Ordered By: Francisco Murillo on 09-17-2024 Creatinine [Mass/Vol] 1.52 mg/dL High 0.70-1.30 [facility] Comment on above: The validity of the calculated GFR & GFRAA in patients over 70 years has not been determined. Clinical correlation is essential. Serum or plasma urea nitroge n measurement (mass/volume)Ordered By: Francisco Murillo on 09-17-2024 Urea nitrogen [Mass/Vol] 16 mg/dL 7-[address] [facility] Sodium levelOrdered By: Francisco Murillo on 09-17-2024 Sodium [Moles/Vol] 137 mmol/L 136-145 [facility] Troponin IOrdered By: Francisco yoon on 09-17-2024 Troponin I High Sensitivity 9 pg/mL 3.0-78.[address] [facility] Comment on above: Please Note: New Alexandra t Units and Gender Specific Reference Ranges. For more information see Policy Stat Procedure [place] High Sensitivity Troponin (TNIH) and attachments. White blood cell (WBC) count Ordered By: Francisco Murillo on 09-17-2024 WBC (Bld) [#/Vol] 6.5 10*3/uL 4.4-11.0 [facility] Basic metabolic 2000 panelon 09-12-2024 Anion gap [Moles/Vol] 12 mmol/L Normal 8-15 [facility] Comment on above: Order Comment: Speci men Type: BLOOD SPECIMENOrdering Facility: [facility] Address: [address] [place] [address] Performed By: #### 2 4321-2, 55046-3 ####[facility] LABIA [id number] [place] [address] [place] Calcium [Mass/Vol] 9.8 mg/dL Normal 8.5-10.2 [facility] Comment on above: Order Comment: Speci men Type: BLOOD SPECIMENOrdering Facility: [facility] Address: [address] [place] [address] Performed By: #### 2 4321-2, 04754-8 ####[facility] LABCLIA [id number] [place] [address] [place] Chloride [Moles/Vol] 99 mmol/L Normal 98-107 [facility] Comment on above: Order Comment: Speci men Type: BLOOD SPECIMENOrdering Facility: [facility] Address: [address] [place] [address] Performed By: #### 2 4321-2, 70378-6 ####[facility] LABCLIA [id number] [place] [address] [place] CO2 [Moles/Vol] 27 mmol/L Normal 22-30 [facility] Comment on above: Order Comment: Speci men Type: BLOOD SPECIMENOrdering Facility: [facility] Address: [address] [place] [address] Performed By: #### 2 4321-2, 63110-6 ####[facility] LABCLIA [id number] [place] [address] [place] Creatinine [Mass/Vol] 1.23 mg/dL High 0.73-1.22 [facility] Comment on above: Order Comment: Speci men Type: BLOOD SPECIMENOrdering Facility: [facility] Address: [address] [place] [address] Performed By: #### 2 4321-2, 18801-1 ####[facility] LABIA [id number] [place] [address] [place] Creatinine and Glomerular filtration rate.predicted panel (S/P/Bld) 63 mL/min/1.73m??? Normal >=60 [facility] Comment on above: Order Comment: Speci men Type: BLOOD SPECIMENOrdering Facility: [facility] Address: [address] [place] [address] Result Comment: Shelli mated Glomerular Filtration Rate (eGFR) is calculated using the 2020 CKD-EPI creatinine equation. This equation utilizes serum creatinine, sex, and age as parameters. The creatinine assay has traceable calibration to isotope dilution-mass spectrometry. Refer to KDIGO guidelines for clinical interpretation. In patients with unstable renal function, e.g. those with acute kidney injury, the eGFR may not accurately reflect actual GFR. Performed By: #### 2 4321-2, 95866-9 ####[facility] LABCLIA [id number] [place] [address] [place] Glucose [Mass/Vol] 100 mg/dL High 74-99 [facility] Comment on above: Order Comment: Speci men Type: BLOOD SPECIMENOrdering Facility: [facility] Address: [address] [place] [address] Result Comment: The [place] [employer] (ADA) provides guidance for cutoff values for fasting glucose and random glucose. The ADA defines fasting as no caloric intake for at least 8 hours. Fasting plasma glucose results between 100 to 125 mg/dL indicate increased risk for diabetes (prediabetes). Fasting plasma glucose results greater than or equal to 126 mg/dL meet the criteria for diagnosis of diabetes. In the absence of unequivocal hyperglycemia, results should be confirmed by repeat testing. In a patient with classic symptoms of hyperglycemia or hyperglycemic crisis, random plasma glucose results greater than or equal to 200 mg/dL meet the criteria for diagnosis of diabetes. Reference: Standards of Medical Care in Diabetes 2016, [place] [employer]. Diabetes Care. 2016.39(Suppl 1). Performed By: #### 2 4321-2, 83175-0 ####[facility] LABCLIA [id number] [place] [address] [place] Potassium [Moles/Vol] 4.1 mmol/L Normal 3.7-5.1 [facility] Comment on above: Order Comment: Speci men Type: BLOOD SPECIMENOrdering Facility: [facility] Address: [address] [place] [address] Performed By: #### 2 4321-2, 36704-1 ####[facility] LABCLIA [id number] [place] [address] [place] Sodium [Moles/Vol] 138 mmol/L Normal 136-144 [facility] Comment on above: Order Comment: Speci men Type: BLOOD SPECIMENOrdering Facility: [facility] Address: [address] [place] [address] Performed By: #### 2 4321-2, 62191-0 ####[facility] LABCLIA [id number] [place] [address] [place] Urea nitrogen [Mass/Vol] 23 mg/dL Normal 9-24 [facility] Comment on above: Order Comment: Speci men Type: BLOOD SPECIMENOrdering Facility: [facility] Address: [address] [place] [address] Performed By: #### 2 4321-2, 50012-1 ####[facility] LABCLIA [id number] [place] [address] [place] CBC panel Auto (Bld)on 09-12 Erythrocyte distribution width (RBC) [Ratio] 13.2 % Normal 11.5-15.0 [facility] Comment on above: Order Comment: Speci men Type: BLOOD SPECIMENOrdering Facility: [facility] Address: [address] [place] [address] Performed By: #### 5 8410-2 ####[facility] LABCLIA [id number] [address] [place] Hematocrit (Bld) [Volume fraction] 48.4 % Normal 39.0-51.0 [facility] Comment on above: Order Comment: Speci men Type: BLOOD SPECIMENOrdering Facility: [facility] Address: [address] [place] [address] Performed By: #### 5 8410-2 ####[facility] LABCLIA [id number] [address] [place] Hemoglobin (Bld) [Mass/Vol] 16.5 g/dL Normal 13.0-17.0 [facility] Comment on above: Order Comment: Speci men Type: BLOOD SPECIMENOrdering Facility: [facility] Address: [address] [place] [address] Performed By: #### 5 8410-2 ####[facility] LABCLIA [id number] [place] [address] [place] MCH (RBC) [Entitic mass] 32.1 pg Normal 26.0-34.0 [facility] Comment on above: Order Comment: Speci men Type: BLOOD SPECIMENOrdering Facility: [facility] Address: [address] [place] [address] Performed By: #### 5 8410-2 ####[facility] LABCLIA [id number] [place] [address] [place] MCHC (RBC) [Mass/Vol] 34.1 g/dL Normal 30.5-36.0 [facility] Comment on above: Order Comment: Speci men Type: BLOOD SPECIMENOrdering Facility: [facility] Address: [address] [place] [address] Performed By: #### 5 8410-2 ####[facility] LABIA [id number] [place] [address] [place] MCV (RBC) [Entitic vol] 94.2 fL Normal 80.0-100.0 [facility] Comment on above: Order Comment: Speci men Type: BLOOD SPECIMENOrdering Facility: [facility] Address: [address] [place] [address] Performed By: #### 5 8410-2 ####[facility] LABIA [id number] [place] [address] [place] Nucleated RBC (Bld) [#/Vol] 10*3/uL Normal <0.01 [facility] Comment on above: Order Comment: Speci men Type: BLOOD SPECIMENOrdering Facility: [facility] Address: [address] [place] [address] Performed By: #### 5 8410-2 ####[facility] LABIA [id number] [place] [address] [place] Platelet mean volume (Bld) [Entitic vol] 9.4 fL Normal 9.0-12.7 [facility] Comment on above: Order Comment: Speci men Type: BLOOD SPECIMENOrdering Facility: [facility] Address: [address] [place] [address] Performed By: #### 5 8410-2 ####[facility] LABCLIA [id number] [place] [address] [place] Platelets (Bld) [#/Vol] 163 10*3/uL Normal 150-400 [facility] Comment on above: Order Comment: Speci men Type: BLOOD SPECIMENOrdering Facility: [facility] Address: [address] [place] [address] Performed By: #### 5 8410-2 ####[facility] LABIA [id number] [place] [address] [place] RBC (Bld) [#/Vol] 5.14 10*6/uL Normal 4.20-6.00 [facility] Comment on above: Order Comment: Speci men Type: BLOOD SPECIMENOrdering Facility: [facility] Address: [address] [place] [address] Performed By: #### 5 8410-2 ####[facility] LABIA [id number] [place] [address] [place] WBC (Bld) [#/Vol] 10.46 10*3/uL Normal 3.70-11.00 [facility] Comment on above: Order Comment: Speci men Type: BLOOD SPECIMENOrdering Facility: [facility] Address: [address] [place] [address] Performed By: #### 5 8410-2 ####[facility] LABIA [id number] [place] [id number] [place] CNOVon 09-12-2024 CNOV Office Visit (INTMWS ) -------- BEATRIZ,HORACE M ([id number]) 1955 M Date Time Provider Department 09/12/24 4:20 PM GEORGE VÁZQUEZ INTIhsanWS During your visit today, we recorded the following information about you: Temperature Pulse Respiration Blood pressure 98.9 degrees 130/minute 28/minute 134/84 Weight 82.2 kg George Vázquez MD 09/12/2024 4:57 PM Signed This note was created using [employer]. Subjective Horace Henderson is a 69 year old male. I saw him for COPD exacerbation one week ago, and he was seen in the week before that. He continues to feel vaguely ill. His heart rate has been staying elevated when he checked his oximetry at home. He was finishing doxycycline and just got a call from his clinical rehab specialist that he will start Augmentin 2 days after doxycycline. He did another home Covid test which was negative. Review of Systems Constitutional: Positive for fatigue. Negative for chills and fever. HENT: Negative for congestion and sore throat. Respiratory: Positive for cough and shortness of breath. Negative for chest tightness and wheezing. Cardiovascular: Positive for leg swelling. Negative for chest pain and palpitations. Gastrointestinal: Negative for diarrhea, nausea and vomiting. Neurological: Negative for dizziness and light-headedness. ACTIVE PROBLEM LIST Htn (Hypertension) Cad (Coronary Artery Disease) S/P Cabg X 2 Oa (Osteoarthritis) of Knee Hyperlipidemia Tobacco Use Disorder Chronic bronchitis Ddd (Degenerative Disc Disease), Lumbar Failed Cabg (Coronary Artery Bypass Graft) Presence of Drug Coated Stent in Right Coronary Artery Presence of Drug Coated Stent in Left Circumflex Coronary Artery Dupuytren's Contracture of Right Hand Achilles Tendinitis of Both Lower Extremities Nodule of lower lobe of left lung (low dose lung CT) Status Post Insertion of Drug-Eluting Stent into Right Coronary Artery for Coronary Artery Disease Acute On Chronic Respiratory Failure With Hypoxia (Hcc) Gastroesophageal Reflux Disease Social History Tobacco Use Smoking status: Every Day Current packs/day: 0.50 Average packs/day: 0.5 packs/day for 40.2 years (20.1 ttl pk-yrs) Types: Cigarettes, Pipe Start date: 06/17/1984 Smokeless tobacco: Never Vaping Use Vaping status: Never Used Substance Use Topics Alcohol use: Yes Alcohol/week: 9.2 standard drinks of alcohol Types: 4 Standard drinks or equivalent, 4 Mixed Drinks per week Comment: 2 mixed drinks 2 times per week. Drug use: No Frequency: 2.0 times per week Current Outpatient Medications Medication Sig doxycycline (VIBRA-TABS) 100 mg tablet Take 1 tablet by mouth two times a day for 10 days. nystatin (MYCOSTATIN) 100,000 unit/mL suspension Take 5 mL by mouth four times daily. 1tsp swish in mouth for several minutes, then swallow (or expectorate) 4 times daily until gone. Magnesium Oxide 500 mg magnesium tab Take 1 tablet by mouth once daily. albuterol HFA (PROAIR HFA) 90 mcg/actuation inhaler Inhale 2 Puffs as instructed every 6 hours as needed for wheezing/shortness of breath. ipratropium-albuterol (DUONEB) 0.5 mg-3 mg(2.5 mg base)/3 mL nebu Inhale 3 mL as instructed every 6 hours as needed. clopidogrel (PLAVIX) 75 mg tablet Take 1 tablet by mouth once daily. ezetimibe (ZETIA) 10 mg tablet Take 1 tablet by mouth once daily. metoprolol succinate ER (TOPROL XL) 50 mg 24 hr tablet Take 1 tablet by mouth once daily. From [facility]. potassium chloride SR (MICRO-K) 10 mEq CR capsule Take 1 capsule by mouth two times a day. pantoprazole DR (PROTONIX) 20 mg tablet Take 1 tablet by mouth daily before breakfast. Take on empty stomach, 1/2 hr before meal. losartan (COZAAR) 50 mg tablet Take 1 tablet by mouth once daily. Per [facility]. budesonide-formoterol (SYMBICORT) 160-4.5 mcg/actuation inhaler Inhale 2 Puffs as instructed two times a day. furosemide (LASIX) 40 mg tablet Take 1 tablet by mouth once daily. isosorbide mononitrate ER (IMDUR) 30 mg 24 hr tablet Take 30 mg by mouth once daily. No current facility-administered medications for this visit. Objective BP 134/84 (BP Site: Left Arm, BP Position: Sitting, BP Cuff Size: Large Adult) Pulse (!) 130 Temp 37.2 ?C (98.9 ?F) Resp 28 Wt 82.2 kg (181 lb 3.5 oz) SpO2 95% BMI 28.38 kg/m? Physical Exam Constitutional: General: He is not in acute distress. Appearance: He is not diaphoretic. HENT: Head: Normocephalic. Nose: No congestion or rhinorrhea. Cardiovascular: Rate and Rhythm: Regular rhythm. Tachycardia present. Occasional Extrasystoles are present. Heart sounds: S1 normal and S2 normal. No murmur heard. Pulmonary: Effort: No respiratory distress. Breath sounds: No wheezing, rhonchi or rales. Musculoskeletal: Right lower le+ Pitting Edema present. Left lower le+ Pitting Edema present. (more content not included)... Normal [facility] ECG COMPLETEon 09-12-2024 ECG COMPLETE Ventricular Rate : 1 17 BPM Atrial Rate : 117 BPM P-R Interval : 136 ms QRS Duration : 128 ms Q-T Interval : 334 ms QTC Calculation(Bazett) : 465 ms Calculated P [place] : 77 degrees Calculated R [place] : -76 degrees Calculated T [place] : 78 degrees SINUS TACHYCARDIA WITH PREMATURE ATRIAL COMPLEXES LEFT AXIS DEVIATION COMPLETE RIGHT BUNDLE BRANCH BLOCK ABNORMAL ECG Confirmed by MD BECK GREGORY () on 09/13/2024 10:20:58 AM NAME : HORACE HENDERSON PID : [id number] : 1955 Gender : Male Race : ORD : [id number] Procedure Date : Sep 12 2024 16:39:35 Edit Date : Sep 13 2024 10:21:00 Diagnosis: SINUS TACHYCARDIA WITH PREMATURE ATRIAL COMPLEXES LEFT AXIS DEVIATION COMPLETE RIGHT BUNDLE BRANCH BLOCK ABNORMAL ECG Confirmed by MD BECK GREGORY () on 09/13/2024 10:20:58 AM Test Reason : I25.10 Coronary artery disease involving [place] coronary artery of [place] heart Location : 185 : [facility] Overread By : MD BECK GREGORY Edited By : MD BECK GREGORY Referred By : , Acquired by : Iris chin [facility] NT[facility]BNP [facility]12 Natriuretic peptide.B prohormone N-Terminal [Mass/Vol] 153 pg/mL High <125 [facility] Comment on above: Order Comment: Speci men Type: BLOOD SPECIMENOrdering Facility: [facility] Address: [address] [place], [place] [address] Performed By: #### 2 4321-2, 62058-0 ####[facility] WENDY [id number] [id number] [id number] [facility] CNOVon 09-04-2024 CNOV Office Visit (INTMWS ) -------- HORACE HENDERSON ([id number]) 1955 M Date Time Provider Department 09/04/24 3:40 PM GEORGE VÁZQUEZ INTMWS During your visit today, we recorded the following information about you: Temperature Pulse Respiration Blood pressure 98.8 degrees 96/minute 20/minute 128/74 Weight 82.9 kg George Vázquez MD 09/04/2024 4:10 PM Signed This note was created using [employer]. Subjective Horace Henderson is a 69 year old male. He developed nasal congestion, fatigue, productive cough and dyspnea 2 weeks ago. He was seen in and treated with a Zpak with temporary relief. He went back to 08/30 and chest X-ray was negative for pneumonia. He was given prednisone with less relief. He was taking his inhalers. Review of Systems Constitutional: Negative for chills, diaphoresis and fever. HENT: Positive for rhinorrhea. Negative for sinus pain and sore throat. Respiratory: Positive for cough, shortness of breath and wheezing. Cardiovascular: Positive for leg swelling. Negative for chest pain and palpitations. Gastrointestinal: Negative for diarrhea, nausea and vomiting. Musculoskeletal: Negative for myalgias. ACTIVE PROBLEM LIST Htn (Hypertension) Cad (Coronary Artery Disease) S/P Cabg X 2 Oa (Osteoarthritis) of Knee Hyperlipidemia Tobacco Use Disorder Chronic bronchitis Ddd (Degenerative Disc Disease), Lumbar Failed Cabg (Coronary Artery Bypass Graft) Presence of Drug Coated Stent in Right Coronary Artery Presence of Drug Coated Stent in Left Circumflex Coronary Artery Dupuytren's Contracture of Right Hand Achilles Tendinitis of Both Lower Extremities Nodule of lower lobe of left lung (low dose lung CT) Status Post Insertion of Drug-Eluting Stent into Right Coronary Artery for Coronary Artery Disease Acute On Chronic Respiratory Failure With Hypoxia (Hcc) Gastroesophageal Reflux Disease Social History Tobacco Use Smoking status: Every Day Current packs/day: 0.50 Average packs/day: 0.5 packs/day for 40.2 years (20.1 ttl pk-yrs) Types: Cigarettes, Pipe Start date: 06/17/1984 Smokeless tobacco: Never Vaping Use Vaping status: Never Used Substance Use Topics Alcohol use: Yes Alcohol/week: 9.2 standard drinks of alcohol Types: 4 Standard drinks or equivalent, 4 Mixed Drinks per week Comment: 2 mixed drinks 2 times per week. Drug use: No Frequency: 2.0 times per week Current Outpatient Medications Medication Sig predniSONE (DELTASONE) 10 mg tablet Take 4 tablets by mouth once daily for 5 days. nystatin (MYCOSTATIN) 100,000 unit/mL suspension Take 5 mL by mouth four times daily. 1tsp swish in mouth for several minutes, then swallow (or expectorate) 4 times daily until gone. Magnesium Oxide 500 mg magnesium tab Take 1 tablet by mouth once daily. albuterol HFA (PROAIR HFA) 90 mcg/actuation inhaler Inhale 2 Puffs as instructed every 6 hours as needed for wheezing/shortness of breath. ipratropium-albuterol (DUONEB) 0.5 mg-3 mg(2.5 mg base)/3 mL nebu Inhale 3 mL as instructed every 6 hours as needed. clopidogrel (PLAVIX) 75 mg tablet Take 1 tablet by mouth once daily. ezetimibe (ZETIA) 10 mg tablet Take 1 tablet by mouth once daily. metoprolol succinate ER (TOPROL XL) 50 mg 24 hr tablet Take 1 tablet by mouth once daily. From [facility]. potassium chloride SR (MICRO-K) 10 mEq CR capsule Take 1 capsule by mouth two times a day. pantoprazole DR (PROTONIX) 20 mg tablet Take 1 tablet by mouth daily before breakfast. Take on empty stomach, 1/2 hr before meal. losartan (COZAAR) 50 mg tablet Take 1 tablet by mouth once daily. [facility]. budesonide-formoterol (SYMBICORT) 160-4.5 mcg/actuation inhaler Inhale 2 Puffs as instructed two times a day. furosemide (LASIX) 40 mg tablet Take 1 tablet by mouth once daily. isosorbide mononitrate ER (IMDUR) 30 mg 24 hr tablet Take 30 mg by mouth once daily. No current facility-administered medications for this visit. Objective BP 128/74 (BP Site: Left Arm, BP Position: Sitting, BP Cuff Size: Large Adult) Pulse 96 Temp 37.1 ?C (98.8 ?F) (Temporal) Resp 20 Wt 82.9 kg (182 lb 12.2 oz) SpO2 91% BMI 28.62 kg/m? Physical Exam Constitutional: General: He is not in acute distress. Appearance: He is not ill-appearing or diaphoretic. HENT: Nose: No congestion or rhinorrhea. Mouth/Throat: Mouth: Mucous membranes are moist. Pharynx: Oropharynx is clear. Eyes: Conjunctiva/sclera: Conjunctivae normal. Cardiovascular: Rate and Rhythm: Normal rate and regular rhythm. Heart sounds: No murmur heard. No gallop. Pulmonary: Breath sounds: Examination of the right-lower field reveals wheezing and rhonchi. Wheezing and rhonchi present. No rales. Abdominal: Tenderness: There is no abdominal tenderness. Musculoskeletal: Right lower le+ Pitting Edema present. Left lower leg (more content not included)... Normal [facility] 09-04-2024 [facility] Telephone (INTMWS) -------- HORACE HENDERSON ([id number]) 1955 M Date Time Provider Department 09/04/24 GEORGE VÁZQUEZ INTWS During your visit today, we recorded the following information about you: Adele Jarvis LPN 09/04/2024 1:50 PM Signed Patient calling, he was in twice last week. He was given a zpak at the first visit which seemed to take care of the pneumonia and he stopped coughing up green phlegm. Then at his second visit was prescribed prednisone. He has completed both prescriptions and still coughing. Now the phlegm has turned back to green. Asking if he should have another round of antibiotics. Patient uses [facility]. Please advise. Blanca Tilley APRN.HORTENCIA 09/04/2024 1:54 PM Signed Needs appointment Blanca Tilley APRN.Pat Arthur LPN 09/04/2024 2:33 PM Signed Patient notified, appt scheduled. Pat Richey LPN Allergies As of Date: 09/04/2024 Noted Allergy Reaction LEVOFLOXACIN 06/01/2020 14 - Other: See Comments Comments: Tachycardia. Achilles tendonitis. Date Reviewed: 08/30/2024 Reviewed by: Prateek Matos APRN.HORTENCIA - Fully Assessed Reason for Visit: Patient Update [1234] Prescriptions as of 09/04/2024 - predniSONE (DELTASONE) 10 mg tablet Take 4 tablets by mouth once daily for 5 days. - nystatin (MYCOSTATIN) 100,000 unit/mL suspension Take 5 mL by mouth four times daily. 1tsp swish in mouth for several minutes, then swallow (or expectorate) 4 times daily until gone. - Magnesium Oxide 500 mg magnesium tab Take 1 tablet by mouth once daily. - albuterol HFA (PROAIR HFA) 90 mcg/actuation inhaler Inhale 2 Puffs as instructed every 6 hours as needed for wheezing/shortness of breath. - ipratropium-albuterol (DUONEB) 0.5 mg-3 mg(2.5 mg base)/3 mL nebu Inhale 3 mL as instructed every 6 hours as needed. - clopidogrel (PLAVIX) 75 mg tablet Take 1 tablet by mouth once daily. - ezetimibe (ZETIA) 10 mg tablet Take 1 tablet by mouth once daily. - metoprolol succinate ER (TOPROL XL) 50 mg 24 hr tablet Take 1 tablet by mouth once daily. From [facility]. - potassium chloride SR (MICRO-K) 10 mEq CR capsule Take 1 capsule by mouth two times a day. - pantoprazole DR (PROTONIX) 20 mg tablet Take 1 tablet by mouth daily before breakfast. Take on empty stomach, 1/2 hr before meal. - losartan (COZAAR) 50 mg tablet Take 1 tablet by mouth once daily. [facility]. - budesonide-formoterol (SYMBICORT) 160-4.5 mcg/actuation inhaler Inhale 2 Puffs as instructed two times a day. - furosemide (LASIX) 40 mg tablet Take 1 tablet by mouth once daily. - isosorbide mononitrate ER (IMDUR) 30 mg 24 hr tablet Take 30 mg by mouth once daily. Problem List As Of Date 09/04/2024 Noted Resolved HTN (hypertension) [I10] 01/11/2012 CAD (coronary artery disease) [I25.10] 01/11/2012 S/P CABG x 2 [Z95.1] 10/14/1995 OA (osteoarthritis) of knee [M17.9] 05/08/2012 Diverticulitis [K57.92] 01/09/2014 Sciatica [M54.30] 06/21/2012 04/29/2015 Hyperlipidemia [E78.5] 08/04/2012 Perforated diverticulum of large intestine [K57*08/20/2012 10/27/2012 Tobacco use disorder [F17.200] 10/27/2012 Chronic bronchitis [J42] 10/07/2013 Primary localized osteoarthrosis, lower leg [M1*11/04/2013 04/29/2015 Knee 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 [Z96.659] 11/04/2013 04/29/2015 Lumbar radiculopathy [M54.16] 12/13/2013 04/17/2018 DDD (degenerative disc disease), lumbar [M51.36*12/13/2013 Lumbar disc displacement without myelopathy [M5*04/04/2014 04/17/2018 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*05/08/2015 Presence of drug coated stent in right coronary*05/08/2015 Presence of drug coated stent in left circumfle*05/08/2015 Dupuytren's contracture of right hand [M72.0] 11/05/2015 Tobacco abuse [Z72.0] 11/06/2015 11/15/2016 Essential hypertension [I10] 11/10/2016 11/15/2016 Achilles tendinitis of both lower extremities [*06/23/2020 Nodule of lower lobe of left lung (low dose severino*05/05/2021 Status post insertion of drug-eluting stent int*09/30/2021 Acute on chronic respiratory failure with hypox*10/30/2022 Gastroesophageal reflux disease [K21.9] 05/24/2023 Encounter Status:Closed by PAT RICHEY on 09/04/24 [facility] CNOVon 08-30-2024 CNOV Office Visit (UCWSTR ) -------- HORACE HENDERSON ([id number]) 1955 Date Time Provider Department 08/30/24 10:30 AM PRATEEK MATOS [facility] During your visit today, we recorded the following information about you: Temperature Pulse Respiration Blood pressure 97.8 degrees 106/minute 24/minute 130/78 Weight 82 kg Prateek Matos, DEWAYNE.WIRE DRAWING SETTER 08/30/2024 12:15 PM Signed Subjective HPI Nontoxic-appearing male presents urgent care chief complaint chest congestion increased shortness of breath and wheezing. Duration of symptoms 8 days. Associated symptoms listed above. Was seen previously on 25 August. Placed on azithromycin. States cough is improved but wheezing and chest congestion has stayed present. History of COPD. Is a smoker. Denies any chest pain or hemoptysis. Increased shortness of breath with ambulation. No fevers. Past medical history prescription medications allergies reviewed. .Patient presents with: Cough: Chest congestion, increase in SOB, wheeze, [facility] PAST MEDICAL HISTORY Diagnosis Date Achilles tendinitis of both lower extremities 06/23/2020 Acute on chronic respiratory failure with hypoxia (HCC) 10/30/2022 Arthritis Asthma CAD (coronary artery disease) 01/11/2012 Chronic bronchitis (HCC) 10/07/2013 06/17/2014 [id number]% predicted. COPD (chronic obstructive pulmonary disease) ([facility]) COVID-19 07/05/2022 DDD (degenerative disc disease), lumbar 12/13/2013 Diverticulitis 08/12/2012 Perforated HTN (hypertension) 01/11/2012 Hyperlipidemia 08/04/2012 Lumbar disc displacement without myelopathy 04/04/2014 Nodule of lower lobe of left lung (low dose lung CT) 05/05/2021 Perforated diverticulum of large intestine 08/20/2012 S/P CABG x 2 10/14/1995 Status post insertion of drug-eluting stent into right coronary artery for coronary artery disease 09/30/2021 Tobacco use disorder 10/27/2012 PAST SURGICAL HISTORY Procedure Laterality Date ANESTH OPEN/SURG ARTHRS TOTAL KNEE ARTHROPLASTY 10/10/2013 LEFT APPENDEC INDICATED PURPOSE OTH MAJOR PX NOT SPX 08/12/2012 CABG (2) VEIN GRAFTS AND ARTERIAL GRAFT(S 10/14/1996 SVG to diagonal. [facility] CORONARY STENT 09/29/2021 Biotronik 2.5x22 mm to distal RCA, biotronik 3.0 x 30 mm to proximal RCA COLECTOMY PARTIAL W/ANASTOMOSIS 08/12/2012 COLONOSCOPY FLX DX W/COLLJ SPEC WHEN PFRMD 07/12/2012 Colonoscopy COLONOSCOPY FLX DX W/COLLJ SPEC WHEN PFRMD 06/22/2021 COLONOSCOPY SCREENING 12/28/2022 cecal adenoma, repeat 5 years CYSTOURETHROSCOPY 2007 Cystoscopy EGD BIOPSY SING OR MULT 12/28/2022 ESOPHAGOGASTRODUODENOSCO PY TRANSORAL DIAGNOSTIC 03/23/2021 ESOPHAGOGASTRODUODENOSCO PY TRANSORAL DIAGNOSTIC 06/22/2021 EYE SURGERY HX LAP; SURGICAL W/CHOLECYSTECTOMY AND CHOLANGI 12/02/2022 PAST SURGICAL HISTORY OF 01/05/2006 stents cardiac x 6, joseph vega, 2 year intervals REVISE MEDIAN N/CARPAL TUNNEL SURG Right 11/19/2020 Right carpal tunnel syndrome REVISE MEDIAN N/CARPAL TUNNEL SURG Left 12/17/2020 Left carpal tunnel release SKIN BIOPSY HX TONSILLECTOMY HX 1965 VASCULAR SURGERY PROCEDURE ALLERGIES Levofloxacin MEDICATIONS nystatin (MYCOSTATIN) 100,000 unit/mL suspension Take 5 mL by mouth four times daily. 1tsp swish in mouth for several minutes, then swallow (or expectorate) 4 times daily until gone. Magnesium Oxide 500 mg magnesium tab Take 1 tablet by mouth once daily. albuterol HFA (PROAIR HFA) 90 mcg/actuation inhaler Inhale 2 Puffs as instructed every 6 hours as needed for wheezing/shortness of breath. ipratropium-albuterol (DUONEB) 0.5 mg-3 mg(2.5 mg base)/3 mL nebu Inhale 3 mL as instructed every 6 hours as needed. clopidogrel (PLAVIX) 75 mg tablet Take 1 tablet by mouth once daily. ezetimibe (ZETIA) 10 mg tablet Take 1 tablet by mouth once daily. metoprolol succinate ER (TOPROL XL) 50 mg 24 hr tablet Take 1 tablet by mouth once daily. From [facility]. potassium chloride SR (MICRO-K) 10 mEq CR capsule Take 1 capsule by mouth two times a day. pantoprazole DR (PROTONIX) 20 mg tablet Take 1 tablet by mouth daily before breakfast. Take on empty stomach, 1/2 hr before meal. losartan (COZAAR) 50 mg tablet Take 1 tablet by mouth once daily. [facility]. budesonide-formoterol (SYMBICORT) 160-4.5 mcg/actuation inhaler Inhale 2 Puffs as instructed two times a day. furosemide (LASIX) 40 mg tablet Take 1 tablet by mouth once daily. isosorbide mononitrate ER (IMDUR) 30 mg 24 hr tablet Take 30 mg by mouth once daily. azithromycin (ZITHROMAX) 250 mg tablet Take 2 tablets by mouth once daily for 1 day, THEN 1 tablet once daily for 4 days. (Patient not taking: Reported on 08/30/2024) FAMILY HISTORY Problem Relation Age of Onset None Mother Coronary Artery Disease Father 79 stent placed Hypertension Brother Cancer Maternal Grandfather 70 pa (more content not included)... Normal [facility] XR CHEST 2V FRONTAL/LATon XR CHEST 2V FRONTAL/LAT * * *Final Repor t* * * DATE OF EXAM: Aug 30 2024 11:05AM [id number] - XR CHEST 2V FRONTAL/LAT / PROCEDURE REASON: Subacute cough * * * * Physician Interpretation * * * * EXAMINATION: CHEST RADIOGRAPH (2 VIEW FRONTAL and LATERAL) CLINICAL HISTORY: Subacute cough MQ: XC2_6 EXAM DATE/TIME: 08/30/2024 11:05 AM COMPARISON: Chest x-ray of 10/18/2023 RESULT: Lines, tubes, and devices: None. Lungs and pleura: No consolidation. Hyperinflation. No lung mass. No pleural effusion. No pneumothorax. Cardiomediastinal silhouette: Stable cardiomediastinal silhouette. Bones and soft tissues: Stable multilevel degenerative changes of the thoracic spine. IMPRESSION: No acute radiographic abnormality. University Lecturer: [facility] Transcribe Date/Time: Aug 30 2024 12:01P Dictated by : JULISA DAVIS MD This examination was interpreted and the report reviewed and electronically signed by: JULISA DAVIS MD on Aug 30 2024 12:04PM EST [id number] Normal [facility] XR Chest PA and Lateralon IMPRESSION: No acute radiographic abnormality. University Lecturer: [facility] Transcribe Date/Time: Aug 30 2024 12:01P Dictated by : JULISA DAVIS MD This examination was interpreted and the report reviewed and electronically signed by: JULISA DAVIS MD on Aug 30 2024 12:04PM EST DIVISION OF RADIOLOGY * * *Final Report* * * DATE OF EXAM: Aug 30 2024 11:05AM [id number] - XR CHEST 2V FRONTAL/LAT / PROCEDURE REASON: Subacute cough * * * * Physician Interpretation * * * * EXAMINATION: CHEST RADIOGRAPH (2 VIEW FRONTAL & LATERAL) CLINICAL HISTORY: Subacute cough MQ: XC2_6 EXAM DATE/TIME: 08/30/2024 11:05 AM COMPARISON: Chest x-ray of 10/18/2023 RESULT: Lines, tubes, and devices: None. Lungs and pleura: No consolidation. Hyperinflation. No lung mass. No pleural effusion. No pneumothorax. Cardiomediastinal silhouette: Stable cardiomediastinal silhouette. Bones and soft tissues: Stable multilevel degenerative changes of the thoracic spine. DIVISION OF RADIOLOGY Provider, [facility] - 08/30/2024 * * *Final Report* * * DATE OF EXAM: Aug 30 2024 11:05AM WOX [id number] - XR CHEST 2V FRONTAL/LAT / PROCEDURE REASON: Subacute cough * * * * Physician Interpretation * * * * EXAMINATION: CHEST RADIOGRAPH (2 VIEW FRONTAL & LATERAL) CLINICAL HISTORY: Subacute cough MQ: XC2_6 EXAM DATE/TIME: 08/30/2024 11:05 AM COMPARISON: Chest x-ray of 10/18/2023 RESULT: Lines, tubes, and devices: None. Lungs and pleura: No consolidation. Hyperinflation. No lung mass. No pleural effusion. No pneumothorax. Cardiomediastinal silhouette: Stable cardiomediastinal silhouette. Bones and soft tissues: Stable multilevel degenerative changes of the thoracic spine. IMPRESSION IMPRESSION: No acute radiographic abnormality. University Lecturer: [facility] Transcribe Date/Time: Aug 30 2024 12:01P Dictated by : JULISA DAVIS MD This examination was interpreted and the report reviewed and electronically signed by: JULISA DAVIS MD on Aug 30 2024 12:04PM [facility] Radiology Study observation (narrative) Dolly hernández [facility] XR Chest PA and LateralOrder ed By: [facility] Provider on 08-30-2024 [facility] -------- HORACE HENDERSON ([id number]) 1955 M Date Time Provider Department 08/26/24 MATILDA MAIN [facility] During your visit today, we recorded the following information about you: Alka Keys MA 08/26/2024 9:06 AM Signed [facility] is there any subsitute for thrush, requesting another medication? Please return call. Alka Keys MA Allergies As of Date: 08/26/2024 Noted Allergy Reaction LEVOFLOXACIN 06/01/2020 14 - Other: See Comments Comments: Tachycardia. Achilles tendonitis. Date Reviewed: 08/25/2024 Reviewed by: Tena Castrejon LPN - Fully Assessed Reason for Visit: Medication Problem [65] Prescriptions as of 08/26/2024 - nystatin (MYCOSTATIN) 100,000 unit/mL suspension Take 5 mL by mouth four times daily. 1tsp swish in mouth for several minutes, then swallow (or expectorate) 4 times daily until gone. - azithromycin (ZITHROMAX) 250 mg tablet Take 2 tablets by mouth once daily for 1 day, THEN 1 tablet once daily for 4 days. - Magnesium Oxide 500 mg magnesium tab Take 1 tablet by mouth once daily. - albuterol HFA (PROAIR HFA) 90 mcg/actuation inhaler Inhale 2 Puffs as instructed every 6 hours as needed for wheezing/shortness of breath. - ipratropium-albuterol (DUONEB) 0.5 mg-3 mg(2.5 mg base)/3 mL nebu Inhale 3 mL as instructed every 6 hours as needed. - clopidogrel (PLAVIX) 75 mg tablet Take 1 tablet by mouth once daily. - ezetimibe (ZETIA) 10 mg tablet Take 1 tablet by mouth once daily. - metoprolol succinate ER (TOPROL XL) 50 mg 24 hr tablet Take 1 tablet by mouth once daily. From [facility]. - potassium chloride SR (MICRO-K) 10 mEq CR capsule Take 1 capsule by mouth two times a day. - pantoprazole DR (PROTONIX) 20 mg tablet Take 1 tablet by mouth daily before breakfast. Take on empty stomach, 1/2 hr before meal. - losartan (COZAAR) 50 mg tablet Take 1 tablet by mouth once daily. [facility]. - budesonide-formoterol (SYMBICORT) 160-4.5 mcg/actuation inhaler Inhale 2 Puffs as instructed two times a day. - furosemide (LASIX) 40 mg tablet Take 1 tablet by mouth once daily. - isosorbide mononitrate ER (IMDUR) 30 mg 24 hr tablet Take 30 mg by mouth once daily. Problem List As Of Date 08/26/2024 Noted Resolved HTN (hypertension) [I10] 01/11/2012 CAD (coronary artery disease) [I25.10] 01/11/2012 S/P CABG x 2 [Z95.1] 10/14/1995 OA (osteoarthritis) of knee [M17.9] 05/08/2012 Diverticulitis [K57.92] 01/09/2014 Sciatica [M54.30] 06/21/2012 04/29/2015 Hyperlipidemia [E78.5] 08/04/2012 Perforated diverticulum of large intestine [K57*08/20/2012 10/27/2012 Tobacco use disorder [F17.200] 10/27/2012 Chronic bronchitis [J42] 10/07/2013 Primary localized osteoarthrosis, lower leg [M1*11/04/2013 04/29/2015 Knee 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 [Z96.659] 11/04/2013 04/29/2015 Lumbar radiculopathy [M54.16] 12/13/2013 04/17/2018 DDD (degenerative disc disease), lumbar [M51.36*12/13/2013 Lumbar disc displacement without myelopathy [M5*04/04/2014 04/17/2018 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*05/08/2015 Presence of drug coated stent in right coronary*05/08/2015 Presence of drug coated stent in left circumfle*05/08/2015 Dupuytren's contracture of right hand [M72.0] 11/05/2015 Tobacco abuse [Z72.0] 11/06/2015 11/15/2016 Essential hypertension [I10] 11/10/2016 11/15/2016 Achilles tendinitis of both lower extremities [*06/23/2020 Nodule of lower lobe of left lung (low dose severino*05/05/2021 Status post insertion of drug-eluting stent int*09/30/2021 Acute on chronic respiratory failure with hypox*10/30/2022 Gastroesophageal reflux disease [K21.9] 05/24/2023 Encounter Status:Closed by ALKA KEYS on 08/26/24 [facility] 08-25-2024 CNOV Office Visit (UCWSTR ) -------- HORACE HENDERSON ([id number]) 1955 Ihsan Date Time Provider Department 08/25/24 10:00 AM MATILDA MAINWSTR During your visit today, we recorded the following information about you: Temperature Pulse Respiration Blood pressure 97.4 degrees 83/minute 24/minute 138/78 Weight 80 kg Matilda Main APRN.CNP 08/25/2024 10:27 AM Signed CC: Patient presents with: Cough: Chest congestion, head congestion, fatigue, headache, increase in phlegm and turned green x 3 days HPI: Horace Henderson is a 69 year old male who presents to the office with complaint of chest congestion, head congestion, and cough, productive for a few days. Symptoms are worsening Associated symptoms includes cough. Denies nausea, vomiting , and diarrhea. Treatments tried include nothing so far. with no relief of symptoms. Sick contacts: unknown. History of asthma, frequent episodes of bronchitis, chronic bronchitis, bronchiectasis or COPD: No Smoker: No Seasonal/environmental allergies: No The ROS is otherwise negative. The patient's pmh, medications, allergies, and past visits are reviewed. PHYSICAL EXAM: BP 138/78 Pulse 83 Temp 36.3 ?C (97.4 ?F) Resp 24 Wt 80 kg (176 lb 5.9 oz) SpO2 94% BMI 27.62 kg/m? General appearance: alert, cooperative, pleasant, in no acute distress Head: Normocephalic Eyes: EOM's intact, conjunctiva pink and moist, no icterus, sclera white, non-injected Ears: Right ear: External ear/canal- Normal, TM - clear with good landmarks. Left ear: External ear/canal- Normal, TM - clear with good landmarks Oropharynx:moist without lesions, No erythema, exudates or tonsillar hypertrophy. Heart: Negative. RRR without obvious murmur, gallop, or rubs. No ectopy. Lungs: wheezing right lower lobe PAST MEDICAL HISTORY Diagnosis Date Achilles tendinitis of both lower extremities 06/23/2020 Acute on chronic respiratory failure with hypoxia (HCC) 10/30/2022 Arthritis Asthma CAD (coronary artery disease) 01/11/2012 Chronic bronchitis (HCC) 10/07/2013 06/17/2014 [id number]% predicted. COPD (chronic obstructive pulmonary disease) (HCC) COVID-19 07/05/2022 DDD (degenerative disc disease), lumbar 12/13/2013 Diverticulitis 08/12/2012 Perforated HTN (hypertension) 01/11/2012 Hyperlipidemia 08/04/2012 Lumbar disc displacement without myelopathy 04/04/2014 Nodule of lower lobe of left lung (low dose lung CT) 05/05/2021 Perforated diverticulum of large intestine 08/20/2012 S/P CABG x 2 10/14/1995 Status post insertion of drug-eluting stent into right coronary artery for coronary artery disease 09/30/2021 Tobacco use disorder 10/27/2012 PAST SURGICAL HISTORY Procedure Laterality Date ANESTH OPEN/SURG ARTHRS TOTAL KNEE ARTHROPLASTY 10/10/2013 LEFT APPENDEC INDICATED PURPOSE OTH MAJOR PX NOT SPX 08/12/2012 CABG (2) VEIN GRAFTS AND ARTERIAL GRAFT(S 10/14/1996 SVG to diagonal. [facility] to [facility] CORONARY STENT 09/29/2021 Biotronik 2.5x22 mm to distal RCA, biotronik 3.0 x 30 mm to proximal RCA COLECTOMY PARTIAL W/ANASTOMOSIS 08/12/2012 COLONOSCOPY FLX DX W/COLLJ SPEC WHEN PFRMD 07/12/2012 Colonoscopy COLONOSCOPY FLX DX W/COLLJ SPEC WHEN PFRMD 06/22/2021 COLONOSCOPY SCREENING 12/28/2022 cecal adenoma, repeat 5 years CYSTOURETHROSCOPY 2007 Cystoscopy EGD BIOPSY SING OR MULT 12/28/2022 ESOPHAGOGASTRODUODENOSCO PY TRANSORAL DIAGNOSTIC 03/23/2021 ESOPHAGOGASTRODUODENOSCO PY TRANSORAL DIAGNOSTIC 06/22/2021 EYE SURGERY HX LAP; SURGICAL W/CHOLECYSTECTOMY AND CHOLANGI 12/02/2022 PAST SURGICAL HISTORY OF 01/05/2006 stents cardiac x 6, joseph vega, 2 year intervals REVISE MEDIAN N/CARPAL TUNNEL SURG Right 11/19/2020 Right carpal tunnel syndrome REVISE MEDIAN N/CARPAL TUNNEL SURG Left 12/17/2020 Left carpal tunnel release SKIN BIOPSY HX TONSILLECTOMY HX 1965 VASCULAR SURGERY PROCEDURE ALLERGIES Levofloxacin MEDICATIONS Magnesium Oxide 500 mg magnesium tab Take 1 tablet by mouth once daily. albuterol HFA (PROAIR HFA) 90 mcg/actuation inhaler Inhale 2 Puffs as instructed every 6 hours as needed for wheezing/shortness of breath. ipratropium-albuterol (DUONEB) 0.5 mg-3 mg(2.5 mg base)/3 mL nebu Inhale 3 mL as instructed every 6 hours as needed. clopidogrel (PLAVIX) 75 mg tablet Take 1 tablet by mouth once daily. ezetimibe (ZETIA) 10 mg tablet Take 1 tablet by mouth once daily. metoprolol succinate ER (TOPROL XL) 50 mg 24 hr tablet Take 1 tablet by mouth once daily. From [facility]. potassium chloride SR (MICRO-K) 10 mEq CR capsule Take 1 capsule by mouth two times a day. pantoprazole DR (PROTONIX) 20 mg tablet Take 1 tablet by mouth daily before breakfast. Take on empty stomach, 1/2 hr before meal. losartan (COZAAR) 50 mg tablet Take 1 tablet by mouth once daily. Per [facility]. budesonide-formoterol (SYMB (more content not included)... Normal [facility] CBC panel Auto (Bld)on 08-12 Erythrocyte distribution width (RBC) [Ratio] 13.5 % Normal 11.5-15.0 [facility] Comment on above: Order Comment: Speci men Type: BLOOD SPECIMENOrdering Facility: [facility] Address: [address] [place] [address] Performed By: #### 5 8410-2 ####[facility] LABIA [id number] [place] [address] [place] Hematocrit (Bld) [Volume fraction] 48.8 % Normal 39.0-51.0 [facility] Comment on above: Order Comment: Speci men Type: BLOOD SPECIMENOrdering Facility: [facility] Address: [address] [place] [address] Performed By: #### 5 8410-2 ####[facility] LABCLIA [id number] [place] [address] [place] Hemoglobin (Bld) [Mass/Vol] 16.5 g/dL Normal 13.0-17.0 [facility] Comment on above: Order Comment: Speci men Type: BLOOD SPECIMENOrdering Facility: [facility] Address: [address] [place] [address] Performed By: #### 5 8410-2 ####[facility] LABCLIA [id number] [place] [address] [place] MCH (RBC) [Entitic mass] 32.0 pg Normal 26.0-34.0 [facility] Comment on above: Order Comment: Speci men Type: BLOOD SPECIMENOrdering Facility: [facility] Address: [address] [place] [address] Performed By: #### 5 8410-2 ####[facility] LABCLIA [id number] [place] [address] [place] MCHC (RBC) [Mass/Vol] 33.8 g/dL Normal 30.5-36.0 [facility] Comment on above: Order Comment: Speci men Type: BLOOD SPECIMENOrdering Facility: [facility] Address: [address] [place] [place] [address] Performed By: #### 5 8410-2 ####[facility] LABCLIA [id number] [place] [address] [place] MCV (RBC) [Entitic vol] 94.8 fL Normal 80.0-100.0 [facility] Comment on above: Order Comment: Speci men Type: BLOOD SPECIMENOrdering Facility: [facility] Address: [address] [place] [address] Performed By: #### 5 8410-2 ####[facility] LABIA [id number] [place] [address] [place] Nucleated RBC (Bld) [#/Vol] 10*3/uL Normal <0.01 [facility] Comment on above: Order Comment: Speci men Type: BLOOD SPECIMENOrdering Facility: [facility] Address: [address] [place] [address] Performed By: #### 5 8410-2 ####[facility] LABCLIA [id number] [place] [address] [place] Platelet mean volume (Bld) [Entitic vol] 9.6 fL Normal 9.0-12.7 [facility] Comment on above: Order Comment: Speci men Type: BLOOD SPECIMENOrdering Facility: [facility] Address: [address] [place] [address] Performed By: #### 5 8410-2 ####[facility] LABIA [id number] [place] [address] [place] Platelets (Bld) [#/Vol] 237 10*3/uL Normal 150-400 [facility] Comment on above: Order Comment: Speci men Type: BLOOD SPECIMENOrdering Facility: [facility] Address: [address] [place] [address] Performed By: #### 5 8410-2 ####[facility] LABIA [id number] [place] [address] [place] RBC (Bld) [#/Vol] 5.15 10*6/uL Normal 4.20-6.00 [facility] Comment on above: Order Comment: Speci men Type: BLOOD SPECIMENOrdering Facility: [facility] Address: [address] [place] [address] Performed By: #### 5 8410-2 ####[facility] LABIA [id number] [place] [address] [place] WBC (Bld) [#/Vol] 6.85 10*3/uL Normal 3.70-11.00 [facility] Comment on above: Order Comment: Speci men Type: BLOOD SPECIMENOrdering Facility: [facility] Address: [address] [place] [address] Performed By: #### 5 8410-2 ####[facility] LABIA [id number] [place] [address] [place] CNOVon 08-12-2024 CNOV Office Visit (INTMWS ) -------- HORACE HENDERSON ([id number]) 1955 M Date Time Provider Department 08/12/24 9:00 AM BLANCA TILLEY INTMWS During your visit today, we recorded the following information about you: Pulse Respiration Blood pressure Weight 91/minute 20/minute 125/82 80.2 kg Blanca Tilley, LICENSED NUCLEAR CONTROL ROOM OPERATOR.WIRE DRAWING SETTER 08/12/2024 9:24 AM Signed CC Patient presents with: severe cramping in my sides now and again HPI Horace Henderson is a 69 year old male who presents with cramping pain for a few months, possibly longer. Location: lower anterior ribs on both sides, does not radiate Described as: cramping like a charley horse. Pain is intermittent. Aggravating factors: nothing he can pin point. Seems to occur mostly when he is at rest driving in the car otherwise no certain time of day. Does not occur at night or wake him up from sleep. Alleviating factors: nothing Associated symptoms: he has a chronic cough secondary to COPD, pain possibly starts after a coughing fit. Denies: chest pain, worsening of chronic SOB, palpitations, hemoptysis, abdominal discomfort, blood in stools or black stools, change in bowel habit, diarrhea, constipation, reflux, heart burn, nausea, vomiting, poor appetite, early satiety, excessive belching, bloating PMH: COPD, CAD, CABG, GERD Review of Systems Constitutional: Negative for chills, diaphoresis, fatigue, fever and unexpected weight change. HENT: Negative for sore throat and trouble swallowing. Genitourinary: Negative for decreased urine volume, dysuria, flank pain, hematuria and urgency. Neurological: Negative for dizziness, syncope, weakness and light-headedness. PAST MEDICAL HISTORY Diagnosis Date Achilles tendinitis of both lower extremities 06/23/2020 Acute on chronic respiratory failure with hypoxia ([facility]) 10/30/2022 Arthritis Asthma CAD (coronary artery disease) 01/11/2012 Chronic bronchitis (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 COPD (chronic obstructive pulmonary disease) ([facility]) COVID-19 07/05/2022 DDD (degenerative disc disease), lumbar 12/13/2013 Diverticulitis 08/12/2012 Perforated HTN (hypertension) 01/11/2012 Hyperlipidemia 08/04/2012 Lumbar disc displacement without myelopathy 04/04/2014 Nodule of lower lobe of left lung (low dose lung CT) 05/05/2021 Perforated diverticulum of large intestine 08/20/2012 S/P CABG x 2 10/14/1995 Status post insertion of drug-eluting stent into right coronary artery for coronary artery disease 09/30/2021 Tobacco use disorder 10/27/2012 PAST SURGICAL HISTORY Procedure Laterality Date ANESTH OPEN/SURG ARTHRS TOTAL KNEE ARTHROPLASTY 10/10/2013 LEFT APPENDEC INDICATED PURPOSE OTH MAJOR PX NOT SPX 08/12/2012 CABG (2) VEIN GRAFTS AND ARTERIAL GRAFT(S 10/14/1996 SVG to diagonal. STEPHENS to LAD. [facility] CORONARY STENT 09/29/2021 Biotronik 2.5x22 mm to distal RCA, biotronik 3.0 x 30 mm to proximal RCA COLECTOMY PARTIAL W/ANASTOMOSIS 08/12/2012 COLONOSCOPY FLX DX W/COLLJ SPEC WHEN PFRMD 07/12/2012 Colonoscopy COLONOSCOPY FLX DX W/COLLJ SPEC WHEN PFRMD 06/22/2021 COLONOSCOPY SCREENING 12/28/2022 cecal adenoma, repeat 5 years CYSTOURETHROSCOPY 2007 Cystoscopy EGD BIOPSY SING OR MULT 12/28/2022 ESOPHAGOGASTRODUODENOSCO PY TRANSORAL DIAGNOSTIC 03/23/2021 ESOPHAGOGASTRODUODENOSCO PY TRANSORAL DIAGNOSTIC 06/22/2021 EYE SURGERY HX LAP; SURGICAL W/CHOLECYSTECTOMY AND CHOLANGI 12/02/2022 PAST SURGICAL HISTORY OF 01/05/2006 stents cardiac x 6, timmatias merczeke, 2 year intervals REVISE MEDIAN N/CARPAL TUNNEL SURG Right 11/19/2020 Right carpal tunnel syndrome REVISE MEDIAN N/CARPAL TUNNEL SURG Left 12/17/2020 Left carpal tunnel release SKIN BIOPSY HX TONSILLECTOMY HX 1965 VASCULAR SURGERY PROCEDURE ALLERGIES Levofloxacin MEDICATIONS albuterol HFA (PROAIR HFA) 90 mcg/actuation inhaler Inhale 2 Puffs as instructed every 6 hours as needed for wheezing/shortness of breath. ipratropium-albuterol (DUONEB) 0.5 mg-3 mg(2.5 mg base)/3 mL nebu Inhale 3 mL as instructed every 6 hours as needed. clopidogrel (PLAVIX) 75 mg tablet Take 1 tablet by mouth once daily. ezetimibe (ZETIA) 10 mg tablet Take 1 tablet by mouth once daily. metoprolol succinate ER (TOPROL XL) 50 mg 24 hr tablet Take 1 tablet by mouth once daily. From [facility]. potassium chloride SR (MICRO-K) 10 mEq CR capsule Take 1 capsule by mouth two times a day. pantoprazole DR (PROTONIX) 20 mg tablet Take 1 tablet by mouth daily before breakfast. Take on empty stomach, 1/2 hr before meal. losartan (COZAAR) 50 mg tablet Take 1 tablet by mouth once daily. Per [facility]. budesonide-formoterol (SYMBICORT) 160-4.5 mcg/actuation inhaler Inhale 2 Puffs as instructed two times a day. furosemide (LASIX) 40 mg tablet Take 1 tablet by mouth once daily. isosorbide mononitrate ER (IMDUR) 30 mg 24 hr tablet (more content not included)... Normal [facility] Comprehensive metabolic 2000 panelon 08-12-2024 Albumin [Mass/Vol] 4.1 g/dL Normal 3.9-4.9 [facility] Comment on above: Order Comment: Speci men Type: BLOOD SPECIMENOrdering Facility: [facility] Address: [address] [place] [address] Performed By: #### 2 4331-1, , ####[facility] LABCLIA [id number] [place] [address] [place] ALP [Catalytic activity/Vol] 76 U/L Normal 38-113 [facility] Comment on above: Order Comment: Speci men Type: BLOOD SPECIMENOrdering Facility: [facility] Address: [address] [place] [address] Performed By: #### 2 4331-1, , ####[facility] LABCLIA [id number] [place] [address] [place] ALT [Catalytic activity/Vol] 18 U/L Normal 10-54 [facility] Comment on above: Order Comment: Speci men Type: BLOOD SPECIMENOrdering Facility: [facility] Address: [address] [place] [address] Performed By: #### 2 4331-1, , ####[facility] LABCLIA [id number] [place] [address] [place] Anion gap [Moles/Vol] 11 mmol/L Normal 8-15 [facility] Comment on above: Order Comment: Speci men Type: BLOOD SPECIMENOrdering Facility: [facility] Address: [address] [place] [address] Performed By: #### 2 4331-1, , ####[facility] LABCLIA [id number] [place] [address] [place] AST [Catalytic activity/Vol] 21 U/L Normal 14-40 [facility] Comment on above: Order Comment: Speci men Type: BLOOD SPECIMENOrdering Facility: [facility] Address: [address] [place] [address] Performed By: #### 2 4331-1, , ####[facility] LABCLIA [id number] [place] [address] [place] Bilirubin [Mass/Vol] 0.6 mg/dL Normal 0.2-1.3 [facility] Comment on above: Order Comment: Speci men Type: BLOOD SPECIMENOrdering Facility: [facility] Address: [address] [place] [address] Performed By: #### 2 4331-1, , ####[facility] LABCLIA [id number] [place] [address] [place] Calcium [Mass/Vol] 9.6 mg/dL Normal 8.5-10.2 [facility] Comment on above: Order Comment: Speci men Type: BLOOD SPECIMENOrdering Facility: [facility] Address: [address] [place] [address] Performed By: #### 2 4331-1, , ####[facility] LABCLIA [id number] [facility] [place] [id number] [place] Chloride [Moles/Vol] 99 mmol/L Normal 98-107 [facility] Comment on above: Order Comment: Speci men Type: BLOOD SPECIMENOrdering Facility: [facility] Address: [address] [place] [address] Performed By: #### 2 4331-1, , ####[facility] LABCLIA [id number] [place] [address] [place] CO2 [Moles/Vol] 27 mmol/L Normal 22-30 [facility] Comment on above: Order Comment: Speci men Type: BLOOD SPECIMENOrdering Facility: [facility] Address: [address] [place] [address] Performed By: #### 2 4331-1, , ####[facility] LABCLIA [id number] [place] [address] [place] Creatinine [Mass/Vol] 1.32 mg/dL High 0.73-1.22 [facility] Comment on above: Order Comment: Speci men Type: BLOOD SPECIMENOrdering Facility: [facility] Address: [address] [place] [address] Performed By: #### 2 4331-1, , ####[facility] LABCLIA [id number] [address] [address] [place] Creatinine and Glomerular filtration rate.predicted panel (S/P/Bld) 58 mL/min/1.73m??? Low >=60 [facility] Comment on above: Order Comment: Ashly oakley Type: BLOOD SPECIMENOrdering Facility: [facility] Address: [address] [place] [address] Result Comment: Shelli mated Glomerular Filtration Rate (eGFR) is calculated using the 2020 CKD-EPI creatinine equation. This equation utilizes serum creatinine, sex, and age as parameters. The creatinine assay has traceable calibration to isotope dilution-mass spectrometry. Refer to KDIGO guidelines for clinical interpretation. In patients with unstable renal function, e.g. those with acute kidney injury, the eGFR may not accurately reflect actual GFR. Performed By: #### 2 4331-1, , ####[facility] LABIA [id number] [place] [address] [place] Glucose [Mass/Vol] 96 mg/dL Normal 74-99 [facility] Comment on above: Order Comment: Aslhy oakley Type: BLOOD SPECIMENOrdering Facility: [facility] Address: [address] [place] [address] Result Comment: The [place] Diabetes Association (ADA) provides guidance for cutoff values for fasting glucose and random glucose. The ADA defines fasting as no caloric intake for at least 8 hours. Fasting plasma glucose results between 100 to 125 mg/dL indicate increased risk for diabetes (prediabetes). Fasting plasma glucose results greater than or equal to 126 mg/dL meet the criteria for diagnosis of diabetes. In the absence of unequivocal hyperglycemia, results should be confirmed by repeat testing. In a patient with classic symptoms of hyperglycemia or hyperglycemic crisis, random plasma glucose results greater than or equal to 200 mg/dL meet the criteria for diagnosis of diabetes. Reference: Standards of Medical Care in Diabetes 2016, [place] Diabetes Association. Diabetes Care. 2016.39(Suppl 1). Performed By: #### 2 4331-1, , ####[facility] LABIA [id number] [place] [id number] [place] Potassium [Moles/Vol] 4.1 mmol/L Normal 3.7-5.1 [facility] Comment on above: Order Comment: Speci men Type: BLOOD SPECIMENOrdering Facility: [facility] Address: [address] [place], [place] [address] Performed By: #### 2 4331-1, , ####[facility] LABCLIA [id number] [address] [address] [place] Protein [Mass/Vol] 6.8 g/dL Normal 6.3-8.0 [facility] Comment on above: Order Comment: Speci men Type: BLOOD SPECIMENOrdering Facility: [facility] Address: [address] [place] [address] Performed By: #### 2 4331-1, , ####[facility] LABCLIA [id number] [place] [id number] [place] Sodium [Moles/Vol] 137 mmol/L Normal 136-144 [facility] Comment on above: Order Comment: Speci men Type: BLOOD SPECIMENOrdering Facility: [facility] Address: [address] [place] [address] Performed By: #### 2 4331-1, , ####[facility] LABIA [id number] [place] [id number] [place] Urea nitrogen [Mass/Vol] 19 mg/dL Normal 9-24 [facility] Comment on above: Order Comment: Speci men Type: BLOOD SPECIMENOrdering Facility: [facility] Address: [address] [place], [place] [address] Performed By: #### 2 4331-1, , ####[facility] LABIA [id number] [address] [address] [place] HbA1c (Bld)on 08-12-2024 Average glucose Estimated from glycated hemoglobin (Bld) [Mass/Vol] 111 mg/dL Normal [facility] Comment on above: Order Comment: Speci men Type: BLOOD SPECIMENOrdering Facility: [facility] Address: [address] [place] [address] Result Comment: eAG: (Estimated average glucose) is a calculated value from HgbA1c and is vendor representatives of the average blood glucose level in the last 2-3 month period. Performed By: #### 5 5454-3 ####[facility] LABCLIA [id number] [place] [address] [place] HbA1c (Bld) [Mass fraction] 5.5 % Normal 4.3-5.6 [facility] Comment on above: Order Comment: Speci men Type: BLOOD SPECIMENOrdering Facility: [facility] Address: [address] [place] [address] Result Comment: [place] Diabetes Association guidelines indicate that patients with HgbA1c in the range 5.7-6.4% are at increased risk for development of diabetes, and intervention by lifestyle modification may be beneficial. HgbA1c greater or equal to 6.5% is considered diagnostic of diabetes. Performed By: #### 5 5454-3 ####[facility] LABIA [id number] [place] [address] [place] Lipid 1996 panelon 4 Cholesterol [Mass/Vol] 199 mg/dL Normal <200 [facility] Comment on above: Order Comment: Frani men Type: BLOOD SPECIMENOrdering Facility: [facility] Address: [address] [place] [address] Result Comment: <200 mg/dL, Desirable 200-239 mg/dL, Borderline high >239 mg/dL, High Performed By: #### 2 4331-1, 23106-0, 21548-2 ####[facility] LABIA [id number] [place] [address] [place] Cholesterol in HDL [Mass/Vol] 66 mg/dL Normal >39 [facility] Comment on above: Order Comment: Speci men Type: BLOOD SPECIMENOrdering Facility: [facility] Address: [address] [place] [address] Result Comment: 40-5 9 mg/dL, Acceptable >59 mg/dL, High: Negative risk factor for coronary heart disease <40 mg/dL, Low: Positive risk factor for coronary heart disease Performed By: #### 2 4331-1, , ####[facility] LABCLIA [id number] [address] [address] [place] Cholesterol in LDL [Mass/Vol] 109 mg/dL High <100 [facility] Comment on above: Order Comment: Speci men Type: BLOOD SPECIMENOrdering Facility: [facility] Address: [address] [place] [address] Result Comment: <100 mg/dL, Optimal 100-129 mg/dL, Near optimal/above optimal 130-159 mg/dL, Borderline high 160-189 mg/dL, High >189 mg/dL, Very high Secondary prevention optimal LDL Cholesterol levels are recommended to be < 70 mg/dL Performed By: #### 2 4331-1, , ####[facility] LABCLIA [id number] [place] [address] [place] Cholesterol in LDL/Cholesterol in HDL [Mass ratio] 1.65 {ratio} Normal <2.54 [facility] Comment on above: Order Comment: Speci men Type: BLOOD SPECIMENOrdering Facility: [facility] Address: [address] [place] [address] Result Comment: Refe rence: 1. National Cholesterol Education Program ATP III Guideline At-A-Glance Quick Desk Reference: National Heart, Lung, and Blood [place]. National Institutes of Health. 2001: NIH Publication No. 01-3305. 2. An International Atherosclerosis Society position paper: global recommendations for the management of dyslipidemia: executive summary, Atherosclerosis. 2014: 232(2):410-413. Performed By: #### 2 4331-1, , ####[facility] LABCLIA [id number] [address] [address] [place] Cholesterol in VLDL [Mass/Vol] 24 mg/dL Normal <30 [facility] Comment on above: Order Comment: Speci men Type: BLOOD SPECIMENOrdering Facility: [facility] Address: [address] [place], [place] [address] Performed By: #### 2 4331-1, , ####[facility] LABCLIA [id number] [address] [address] [place] Cholesterol non HDL [Mass/Vol] 133 mg/dL High <130 [facility] Comment on above: Order Comment: Speci men Type: BLOOD SPECIMENOrdering Facility: [facility] Address: [address] [place] [address] Result Comment: <130 mg/dL, Optimal 130-159 mg/dL, Near optimal/above optimal 160-189 mg/dL, Borderline high 190-219 mg/dL, High >219 mg/dL, Very high Secondary prevention optimal non HDL Cholesterol levels are recommended to be <100 mg/dL Performed By: #### 2 4331-1, , ####[facility] LABCLIA [id number] [place] [address] [place] Cholesterol.total/David sterol in HDL [Mass ratio] 3.02 {ratio} Normal <5.10 [facility] Comment on above: Order Comment: Speci men Type: BLOOD SPECIMENOrdering Facility: [facility] Address: [address] [place], [place] [address] Performed By: #### 2 4331-1, , ####[facility] LABCLIA [id number] [address] [address] [place] FASTING TIME 15 hrs Normal [facility] Comment on above: Order Comment: Speci men Type: BLOOD SPECIMENOrdering Facility: [facility] Address: [address] [place], [place] [address] Performed By: #### 2 4331-1, , ####[facility] LABCLIA [id number] [place] [id number] [place] Triglyceride [Mass/Vol] 122 mg/dL Normal <150 [facility] Comment on above: Order Comment: Speci men Type: BLOOD SPECIMENOrdering Facility: [facility] Address: [address] [place] [address] Result Comment: <150 mg/dL, Normal 150-199 mg/dL, Borderline high 200-499 mg/dL, High >499 mg/dL, Very high Performed By: #### 2 4331-1, , ####[facility] LABCLIA [id number] [place] [address] [place] Magnesium SerPl-mCncon 08-12 Magnesium [Mass/Vol] 2.1 mg/dL Normal 1.7-2.3 [facility] Comment on above: Order Comment: Speci men Type: BLOOD SPECIMENOrdering Facility: [facility] Address: [address] [place] [address] Performed By: #### 2 4331-1, , ####[facility] LABCLIA [id number] [place] [address] [place] Urinalysis complete panel (U )on 08-12-2024 Bacteria LM.HPF (Urine sed) [#/Area] Negative Normal Negative [facility] Comment on above: Order Comment: Speci men Type: URINE SPECIMENOrdering Facility: [facility] Address: [address] [place] [address] Performed By: #### 2 4356-8 ####[facility] LABCLIA [id number] [place] [address] [place] Bilirubin Ql (U) Negative Normal Negative [facility] Comment on above: Order Comment: Speci men Type: URINE SPECIMENOrdering Facility: [facility] Address: [address] [place] [address] Performed By: #### 2 4356-8 ####[facility] LABCLIA [id number] [place] [address] [place] Clarity (Unsp spec) Turbid Abnormal Clear [facility] Comment on above: Order Comment: Speci men Type: URINE SPECIMENOrdering Facility: [facility] Address: [address] [place] [address] Performed By: #### 2 4356-8 ####[facility] LABCLIA [id number] [place] [address] [place] Color (U) Dark Yellow Abnormal Yellow [facility] Comment on above: Order Comment: Speci men Type: URINE SPECIMENOrdering Facility: [facility] Address: [address] [place] [address] Performed By: #### 2 4356-8 ####[facility] LABCLIA [id number] [place] [address] [place] Epithelial cells LM.HPF (Urine sed) [#/Area] None Seen Normal [facility] Comment on above: Order Comment: Speci men Type: URINE SPECIMENOrdering Facility: [facility] Address: [address] [place] [address] Performed By: #### 2 4356-8 ####[facility] LABCLIA [id number] [place] [address] [place] Glucose Test strip (U) [Mass/Vol] Negative Normal Negative [facility] Comment on above: Order Comment: Speci men Type: URINE SPECIMENOrdering Facility: [facility] Address: [address] [place] [address] Performed By: #### 2 4356-8 ####[facility] LABCLIA [id number] [place] [address] [place] Hemoglobin Ql (U) Negative Normal Negative [facility] Comment on above: Order Comment: Speci men Type: URINE SPECIMENOrdering Facility: [facility] Address: [address] [place] [address] Performed By: #### 2 4356-8 ####[facility] LABCLIA [id number] [place] [address] [place] GAMALIEL Hyaline casts (Urine sed) [#/Area] 0 /[LPF] Normal 0 /LPF [facility] Comment on above: Order Comment: Speci men Type: URINE SPECIMENOrdering Facility: [facility] Address: [address] [place] [address] Performed By: #### 2 4356-8 ####[facility] LABCLIA [id number] [place] [address] [place] Ketones Ql (U) Trace Abnormal Negative [facility] Comment on above: Order Comment: Speci men Type: URINE SPECIMENOrdering Facility: [facility] Address: [address] [place] [address] Performed By: #### 2 4356-8 ####[facility] LABCLIA [id number] [place] [address] [place] Leukocyte esterase Test strip Ql (U) Trace Abnormal Negative [facility] Comment on above: Order Comment: Speci men Type: URINE SPECIMENOrdering Facility: [facility] Address: [address] [place] [address] Performed By: #### 2 4356-8 ####[facility] LABCLIA [id number] [place] [address] [place] Nitrite Ql (U) Negative Normal Negative [facility] Comment on above: Order Comment: Speci men Type: URINE SPECIMENOrdering Facility: [facility] Address: [address] [place] [address] Performed By: #### 2 4356-8 ####[facility] LABCLIA [id number] [place] [address] [place] pH (U) 5.5 [pH] Normal <8.5 [facility] Comment on above: Order Comment: Speci men Type: URINE SPECIMENOrdering Facility: [facility] Address: [address] [place] [address] Performed By: #### 2 4356-8 ####[facility] LABIA [id number] [place] [address] [place] Protein (U) [Mass/Vol] 1+ Abnormal Negative [facility] Comment on above: Order Comment: Speci men Type: URINE SPECIMENOrdering Facility: [facility] Address: [address] [place] [address] Performed By: #### 2 4356-8 ####[facility] LABIA [id number] [place] [address] [place] RBC LM.HPF (Urine sed) [#/Area] 0-2 /HPF Normal 0-2 /HPF [facility] Comment on above: Order Comment: Speci men Type: URINE SPECIMENOrdering Facility: [facility] Address: [address] [place] [address] Performed By: #### 2 4356-8 ####[facility] [id number] [place] [address] [place] Specific gravity (U) [Rel density] 1.024 Normal 1.005-1.030 [facility] Comment on above: Order Comment: Speci men Type: URINE SPECIMENOrdering Facility: [facility] Address: [address] [place] [address] Performed By: #### 2 4356-8 ####[facility] LABIA [id number] [place] [address] [place] Urobilinogen Ql (U) 1.0 EU/dL Normal 0.2-1.0 EU/dL [facility] Comment on above: Order Comment: Speci men Type: URINE SPECIMENOrdering Facility: [facility] Address: [address] [place] [address] Performed By: #### 2 4356-8 ####[facility] LABIA [id number] [place] [id number] [place] WBC LM.HPF (Urine sed) [#/Area] 0-5 /HPF Normal 0-5 /HPF [facility] Comment on above: Order Comment: Speci men Type: URINE SPECIMENOrdering Facility: [facility] Address: [address] [place] [address] Performed By: #### 2 4356-8 ####[facility] LABCLIA [id number] [place] [id number] [place] Pulmonary Visit Reporton Pulmonary Visit Report [facility] [place] [address] [address] [address] [place], [place] [address] OFFICE VISIT Date of Service: 07/30/24 MR#: [id number] Acct: [id number] Name: HORACE HENDERSON Rep #: [id number] : 1955 Provider: JAMARCUS Roberts Age/Sex: 69/M Location: [facility] Status: Signed Assessment and Plan Assessment and Plan (1) Stage 3 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: Status: Chronic Comment: FEV1 38% Plan: He does not appear to be an exacerbation of COPD today, however he is not optimized. Placing him back on Daliresp, not sure why he stopped taking it. Adding Spiriva Respimat to place the patient on triple therapy. I advised him that long-term prednisone has serious health risks and I am not willing to move forward with that at this point. Repeat a pulmonary function test and walking oximetry prior to his 4-month follow-up. If disease progression is indicated on the repeat testing and the patient is not responding well to the triple therapy and Daliresp we will discuss chronic prednisone. Contact the office for any new or worsening symptoms. An acute visit and typically be arranged within 1-2 days. Follow-up in 4 months. He recently had an RSV vaccination, COVID booster and has already had his annual influenza vaccination. (2) Nocturnal hypoxia: Status: Chronic Comment: 2 L/min with sleep Plan: The patient is using and benefiting from oxygen. Encouraged better compliance with supplemental oxygen, I explained to him that he is doing harm to himself by not wearing supplemental oxygen with ambulation. He conveys understanding. Continue to utilize to maintain a saturation of 89-92%. Follow-up in 3 months. (3) Smoking greater than 30 pack years: Status: Chronic Comment: 1/2 pack/day Plan: Complete smoking cessation highly encouraged, once again. He remains appropriate for repeat LDCT due in May 2025, ordered accordingly. Orders: Orders Low Dose CT Lung Screening 05/30/25 F17.200 - Nicotine dependence, unspecified, uncomplicated, F17.210 - Nicotine dependence, cigarettes, uncomplicated Pulmonary Function Test (Comp) Today J44.9 - Chronic obstructive pulmonary disease, unspecified Simple Pulmonary Exercise Test Today J44.9 - Chronic obstructive pulmonary disease, unspecified Medications: New roflumilast (Daliresp) 500 mcg PO DAILY 30 tabs 11RF albuterol sulfate 90 mcg/actuation 2 puffs inhalation Q6H PRN PRN 8.5 grams 11RF Shortness Of Breath tiotropium bromide 2.5 mcg/actuation (Spiriva Respimat) administer at approximately the same time(s) each day 2 inhalations inhalation QDAY 1 ea 11RF Refilled budesonide-formoterol 160-4.5 mcg/actuation (Symbicort) administer with spacer, rinse mouth after each use 2 puffs inhalation BID 3 ea 3RF Plan Details Follow Up: 4 Months ([facility]) HPI 6 M FU Chief Complaint: Shortness of breath HPI Comments Details: This patient presents to the office today for follow-up of his COPD and to discuss test results. He is ambulatory and on room air. He has not recently been seen in the ED or urgent care for any respiratory illness. He has not required any antibiotics or prednisone for any breathing problems. He was prescribed a course of prednisone a few months ago by his primary care doctor when he was on a cruise. He is compliant with use of Symbicort 2 puffs twice daily. He does report rinsing his mouth out after each use. He denies any medication side effect such as sore throat or thrush. He continues to utilize albuterol rescue inhaler multiple times daily as well as in the nebulizer twice daily. He would like to discuss being placed on prednisone all the time, it makes breathing easier. He is compliant with supplemental oxygen 2 L/min with sleep and as needed to maintain saturations 89 to 92%. He sometimes requires 2 L/min on exertion. He continues to smoke cigarettes. He is currently smoking between one half a pack per day. He reports shortness of breath on exertion. He is exerted easily. Currently he has a daily cough productive of a thick sputum but he is unsure of the color. He has wheezing and chest tightness but denies any chest pain or palpitations. He has not had any fever, chills or body aches. Test results personally reviewed with patient: Low-dose CT lung screening completed on June 04, 2024. Noted is a 9 x 5 mm lateral left lower lung nodule that is unchanged. There is a 4 mm anterior right lower lung nodule, also unchanged. Recommendation is to continue with screening in 12 months Intake Vital Signs 11/23/23 06:36 03/18/24 14:24 07/30/24 07:50 Height 5 ft 7 in 5 ft 7 in 5 ft 7 in Weight: 178 lb BMI 27.8 BP 151/89 H Blood Pressure Location Rt brachial Position Sitting Respiration 18 Pulse 94 Pulse Source Monitor Tem (more content not included)... Normal [facility] XR Chest PA and Lateralon IMPRESSION: Overall findings unchanged. University Lecturer: [employer] Transcribe Date/Time: Oct 18 2023 8:22A Dictated by : ALLIE LEA MD This examination was interpreted and the report reviewed and electronically signed by: ALLIE LEA MD on Oct 18 2023 8:25AM [facility] DIVISION OF RADIOLOGY * * *Final Report* * * DATE OF EXAM: Oct 18 2023 8:12AM WOX 5291 - XR CHEST 2V FRONTAL/LAT / PROCEDURE REASON: SOB (shortness of breath) * * * * Physician Interpretation * * * * EXAMINATION: CHEST RADIOGRAPH (2 VIEW FRONTAL & LATERAL) CLINICAL HISTORY: SOB (shortness of breath) MQ: XC2_6 EXAM DATE/TIME: 10/18/2023 8:12 AM COMPARISON: Chest x-ray on 03/10/2021 RESULT: Lines, tubes, and devices: None. Lungs and pleura: The bilateral lungs are overexpanded, with flattening of the hemidiaphragms, similar to prior study. No consolidation. No lung mass. No pleural effusion. No pneumothorax. Cardiomediastinal silhouette: Stable cardiomediastinal silhouette. A coronary stent in place. Bones and soft tissues: Status post median sternotomy and CABG. The spine shows degenerative changes. DIVISION OF RADIOLOGY Provider, Jenni Phipps [facility] - 10/18/2023 * * *Final Report* * * DATE OF EXAM: Oct 18 2023 8:12AM WOX 5291 - XR CHEST 2V FRONTAL/LAT / PROCEDURE REASON: SOB (shortness of breath) * * * * Physician Interpretation * * * * EXAMINATION: CHEST RADIOGRAPH (2 VIEW FRONTAL & LATERAL) CLINICAL HISTORY: SOB (shortness of breath) MQ: XC2_6 EXAM DATE/TIME: 10/18/2023 8:12 AM COMPARISON: Chest x-ray on 03/10/2021 RESULT: Lines, tubes, and devices: None. Lungs and pleura: The bilateral lungs are overexpanded, with flattening of the hemidiaphragms, similar to prior study. No consolidation. No lung mass. No pleural effusion. No pneumothorax. Cardiomediastinal silhouette: Stable cardiomediastinal silhouette. A coronary stent in place. Bones and soft tissues: Status post median sternotomy and CABG. The spine shows degenerative changes. IMPRESSION IMPRESSION: Overall findings unchanged. University Lecturer: [facility] Transcribe Date/Time: Oct 18 2023 8:22A Dictated by : ALLIE LEA MD This examination was interpreted and the report reviewed and electronically signed by: ALLIE LEA MD on Oct 18 2023 8:25AM EST [facility] Radiology [facility] (narrative[facility] PA and LateralOrder ed By: [facility] Provider on 10-18-2023 [facility] Gram stain for investigation of transfusion reactionOrdered By: Radha Roberts on 08-11-2023 Microscopic observation Gram stain Nom (Unsp spec) [facility] Microbial respiratory cultur eOrdered By: Radha Roberts on 08-11-2023 Bacteria identified Respiratory culture Nom (Unsp spec) or Staphylococcus aureus isolated. [facility] Basophil percentageOrdered B y: Amada Mahoney on 08-07-2023 Creatinine [Mass/Vol] 1.1 mg/dL 0.70-1.30 [facility] No Panel InformationOrdered By: Amada Mahoney on 08-07-2023 Bedside Estimated GFR (eGFR) > 60.0000 mL/min >[address] [facility] Basophil percentageOrdered B y: Gloria Cochran on 08-04-2023 Bilirubin [Mass/Vol] 0.70 mg/dL 0.20-1.00 [facility] Comment on above: For patients on eltr ombopag therapy, use of Dimension [place] TBIL is not recommended. Cholesterol [Mass/Vol] 159 mg/dL <200 [facility] Comment on above: <200 mg/dL Desirable 200-240 mg/dL Borderline >240 mg/dL High Risk Protein [Mass/Vol] 7.2 g/dL 6.4-8.2 [facility] Triglyceride [Mass/Vol] 150 mg/dL <199 [facility] Comment on above: The drugs N-Acetylcy steine and Metamizole may falsely depress this assay.Serum Triglycerides Reference Interval Normal <150 mg/dL Borderline high 150 - 199 mg/dL High 200 - 499 mg/dL Very High > or = 500 mg/dL Direct bilirubinOrdered By: Gloria Cochran on 08-04-2023 Bilirubin.direct [Mass/Vol] 0.20 mg/dL 0.00-0.[address] [facility] Gram stain for investigation of transfusion reactionOrdered By: Radha Roberts on 08-04-2023 Microscopic observation Gram stain Nom (Unsp spec) [facility] Laboratory - Chemistry and C hemistry - challengeOrdered By: Gloria Cochran on 08-04-2023 ALP [Catalytic activity/Vol] 85 U/L 45-[address] [facility] ALT [Catalytic activity/Vol] 30 U/L 16-[address] [facility] Globulin (S) [Mass/Vol] 3.5 g/dL 2.2-4.2 [facility] Microbial respiratory cultur eOrdered By: Radha Roberts on 08-04-2023 Bacteria identified Respiratory culture Nom (Unsp spec) or Staphylococcus aureus isolated. [facility] Serum or plasma albumin jimbo urement (mass/volume)Ordered By: Gloria Cochran on 08-04-2023 Albumin [Mass/Vol] 3.7 g/dL 3.2-5.0 [facility] Serum or plasma cholesterol in HDL measurement (mass/volume)Ordered By: Gloria Cochran on 08-04-2023 Cholesterol in HDL [Mass/Vol] 75 mg/dL >[address] [facility] Comment on above: The drugs N-Acetylcy steine and Metamizole may falsely depress this assay. Reference Range HDL <40 mg/dL Low HDL Cholesterol HDL >or= 60 mg/dL High HDL Cholesterol Serum or plasma cholesterol in VLDL measurement (mass/volume)Ordered By: Gloria Cochran on 08-04-2023 Cholesterol in VLDL [Mass/Vol] 30 mg/dL 5-[address] [facility] Serum or plasma low density lipoprotein (LDL) cholesterol measurement (mass/volume)Ordered By: Gloria Cochran on 08-04-2023 Cholesterol in LDL [Mass/Vol] 54 mg/dL 0-[address] [facility] Thin prep Papanicolaou smear with manual screeningOrdered By: Gloria Cochran on 08-04-2023 Thin prep Papanicolaou smear with manual screening 18 U/L 15-[address] [facility] Influenza virus A and B and Respiratory syncytial virus RNA panel - Upper respiratoryOrdered By: Radha Roberts on 07-21-2023 FLUAV and FLUBV and RSV pnl JESSICA+probe (Upper resp) [facility] No Panel Informationon 07-21 POC SARS CoV-2 Antigen Negative [facility] Absolute lymphocyte countOrd ered By: Dr. Mas on 03-17-2023 Lymphocytes Auto (Unsp spec) [#/Vol] 0.63 10*3/uL 0.83-4.[address] [facility] Basophil percentageOrdered B y: Dr. Mas on 03-17-2023 Basophils/100 WBC (Bld) 0.2 % 0-1 [facility] Chloride [Moles/Vol] 103 mmol/L 98-107 [facility] Eosinophils/100 WBC (Bld) 0.0 % 0-[address] [facility] Glucose [Mass/Vol] 126 mg/dL 74-106 [facility] Comment on above: Fasting Glucose resu lt greater than or equal to 126 mg/dL suggests DIABETES MELLITUS per A.D.A. criteria. Neutrophils (Bld) [#/Vol] 8.2 10*3/uL 2.0-7.[address] [facility] Neutrophils/100 WBC (Bld) 89.5 % 47-[address] [facility] Potassium [Moles/Vol] 4.0 mmol/L 3.5-5.1 [facility] Sodium [Moles/Vol] 139 mmol/L 136-145 [facility] WBC (Bld) [#/Vol] 9.2 10*3/uL 4.4-11.0 [facility] Blood erythrocytes count (nu mber/volume)Ordered By: Dr. Mas on 03-17-2023 RBC (Bld) [#/Vol] 5.00 10*6/uL 4.6-6.2 [facility] Blood hemoglobin measurement (mass/volume)Ordered By: Dr. Mas on 03-17-2023 Hemoglobin (Bld) [Mass/Vol] 15.3 g/dL 13.0-16.[address] [facility] Blood lymphocytes/100 leukoc ytesOrdered By: Dr. Mas on 03-17-2023 Lymphocytes/100 WBC (Bld) 6.9 % 19-[address] [facility] Blood monocytes/100 leukocyt esOrdered By: Dr. Mas on 03-17-2023 Monocytes/100 WBC (Bld) 2.7 % 0-10 [facility] Blood platelet mean volumeOr dered By: Dr. Mas on 03-17-2023 Platelet mean volume (Bld) [Entitic vol] 9.0 fL 6.2-12.[address] [facility] Determination of erythrocyte mean corpuscular volume (MCV)Ordered By: Dr. Mas on 03-17-2023 MCV (RBC) [Entitic vol] 91.6 fL 80-94 [facility] Hematocrit Auto (Bld) [Volum e fraction]Ordered By: Dr. Mas on 03-17-2023 Hematocrit (Bld) [Volume fraction] 45.8 % 40-[address] [facility] Laboratory - Chemistry and C hemistry - challengeOrdered By: Dr. Mas on 03-17-2023 CO2 [Moles/Vol] 30.0 mmol/L 21.0-32.[address] [facility] Urea nitrogen/Creatinine [Mass ratio] 20.8 mg/mg 10-[address] [facility] Laboratory - Hematology and Cell countsOrdered By: Dr. Mas on 03-17-2023 Erythrocyte distribution width (RBC) [Entitic vol] 43.8 fL 35.1-43.[address] [facility] Erythrocyte distribution width (RBC) [Ratio] 13.1 % 11.6-14.[address] [facility] Immature granulocytes/100 WBC (Bld) 0.700 % 0.0-0.[address] [facility] Comment on above: IG% - Immature Granu locytes (promyelocytes, myelocytes and metamyelocytes) > 1% indicates that a LEFT SHIFT is Present. MCH (RBC) [Entitic mass] 30.6 pg 27.0-32.[address] [facility] Nucleated RBC/100 WBC (Bld) [Ratio] 0 % 0-[address] [facility] MCHC Auto (RBC) [Mass/Vol]Or dered By: Dr. Mas on 03-17-2023 MCHC (RBC) [Mass/Vol] 33.4 g/dL 32-36 [facility] No Panel InformationOrdered By: Dr. Mas on 03-17-2023 D-Dimer Quantitative (PE/DVT) 0.56 FEU/ug/m 0.27-0.[address] [facility] Comment on above: D-Dimer ELEVATED (>0 .49): Additional studies and clinicalassessments are indicated to conclude diagnosis of:Deep Vein Thrombosis (DVT) or Pulmonary Embolism (PE)CRITICAL VALUE VERIFIED. CALLED TO AMBREEN DOS SANTOS03/17/23 1633 Roque Henriquez.RESULTS READ BACK BY SAME . Estimated GFR (MDRD) Amer 74 mL/min >[address] [facility] Comment on above: GFR Calc Estimated GFR (MDRD) Non-Af Amer 61 mL/min >[address] [facility] Comment on above: Non- GFR Calc Troponin I High Sensitivity 15 pg/mL 3.0-78.[address] [facility] Comment on above: Please Note: New [place] t Units and Gender Specific Reference Ranges. For more information see Policy Stat Procedure [place] High Sensitivity Troponin (TNIH) and attachments. Platelets bldOrdered By: Dr. Mas on 03-17-2023 Platelets (Bld) [#/Vol] 279 10*3/uL 150-[address] [facility] Serum or plasma calcium jimbo urement (mass/volume)Ordered By: Dr. Mas on 03-17-2023 Calcium [Mass/Vol] 10.2 mg/dL 8.5-10.1 [facility] Serum or plasma creatinine m easurement (mass/volume)Ordered By: Dr. Mas on 03-17-2023 Creatinine [Mass/Vol] 1.25 mg/dL 0.70-1.30 [facility] Comment on above: The validity of the calculated GFR & GFRAA in patients over 70 years has not been determined. Clinical correlation is essential. Serum or plasma urea nitroge n measurement (mass/volume)Ordered By: Dr. Mas on 03-17-2023 Urea nitrogen [Mass/Vol] 26 mg/dL 05-[address] [facility] Thin prep Papanicolaou smear with manual screeningOrdered By: Dr. Mas on 03-17-2023 Thin prep Papanicolaou smear with manual screening 6 03-[address] [facility] No Panel InformationOrdered By: Aleksey Javier on 01-28-2023 Miscellaneous Test See comment [facility] Comment on above: STOOL CULTURETEST RE SULT REFERENCE INTERVALSALMONELLA/SHIGELLASCREEN RESULT 1 NO SALMONELLA OR SHIGELLA RECOVEREDCAMPYLOBACTER CULTUREFINAL REPORT NO CAMPYLOBACTER SPECIES ISOLATEDE COLI SHIGA TOXIN EIA NEGATIVE NEGATIVE ___ TESTING PERFORMED AT [facility]. ORIGINAL REPORT ON FILE IN LAB CONTAINS ADDITIONAL TEST SITE INFORMATION. Stool Calprotectin <16 ug/g 0-120 [facility] Comment on above: Concentration Interp retation Follow-Up<16 - 50 ug/g Normal None>50 -120 ug/g Borderline Re-evaluate in 4-6 weeks >120 ug/g Abnormal Repeat as clinically indicatedPerformed at: [facility] [id number] Director: Gian Hopkins PhD, Phone: [phone] at: [facility] [id number] Director: Patricia Rivera MD, Phone: [phone] Stool Neutral Fats Normal . [facility] Comment on above: Normal (<60 Droplets /HPF) Stool Pancreatic Elastase 90 >[address] [facility] Comment on above: Result Units: ug Catie st./gResults verified by repeat testing Severe Pancreatic Insufficiency: <100 Moderate Pancreatic Insufficiency: 100 - 200 Normal: >200Performed at: [facility] [address] [id number] Director: Patricia Rivera MD, Phone: [phone] Qualitative fecal fat or lip idsOrdered By: Aleksey Javier on 01-28-2023 Fat Ql (Stl) Normal . [facility] Comment on above: Normal (<100 Droplet s/HPF) Stool lactoferrin detection by immunoassayOrdered By: Aleksey Javier on 01-28-2023 Lactoferrin IA Ql (Stl) [facility] Basophil percentageOrdered B y: Dr. Giles on 01-24-2023 Bilirubin [Mass/Vol] 0.60 mg/dL 0.20-1.00 [facility] Comment on above: For patients on eltr ombopag therapy, use of Dimension [place] TBIL is not recommended. Chloride [Moles/Vol] 104 mmol/L 98-107 [facility] Cholesterol [Mass/Vol] 154 mg/dL <200 [facility] Comment on above: <200 mg/dL Desirable 200-240 mg/dL Borderline >240 mg/dL High Risk Glucose [Mass/Vol] 98 mg/dL 74-106 [facility] Potassium [Moles/Vol] 3.6 mmol/L 3.5-5.1 [facility] Protein [Mass/Vol] 7.2 g/dL 6.4-8.2 [facility] Sodium [Moles/Vol] 137 mmol/L 136-145 [facility] Triglyceride [Mass/Vol] 156 mg/dL <199 [facility] Comment on above: The drugs N-Acetylcy steine and Metamizole may falsely depress this assay.Serum Triglycerides Reference Interval Normal <150 mg/dL Borderline high 150 - 199 mg/dL High 200 - 499 mg/dL Very High > or = 500 mg/dL Direct bilirubinOrdered By: Dr. Giles on 01-24-2023 Bilirubin.direct [Mass/Vol] 0.15 mg/dL 0.00-0.[address] [facility] Laboratory - Chemistry and C hemistry - challengeOrdered By: Dr. Giles on 01-24-2023 ALP [Catalytic activity/Vol] 76 U/L 45-[address] [facility] ALT [Catalytic activity/Vol] 20 U/L 16-[address] [facility] CO2 [Moles/Vol] 28.0 mmol/L 21.0-32.[address] [facility] Globulin (S) [Mass/Vol] 3.5 g/dL 2.2-4.2 [facility] Urea nitrogen/Creatinine [Mass ratio] 14.6 mg/mg 10-[address] [facility] No Panel InformationOrdered By: Dr. Giles on 01-24-2023 Estimated GFR (MDRD) Amer 57 mL/min >[address] [facility] Comment on above: GFR Calc Estimated GFR (MDRD) Non-Af Amer 47 mL/min >[address] [facility] Comment on above: Non- GFR Calc Serum or plasma albumin jimbo urement (mass/volume)Ordered By: Dr. Giles on 01-24-2023 Albumin [Mass/Vol] 3.7 g/dL 3.2-5.0 [facility] Serum or plasma calcium jimbo urement (mass/volume)Ordered By: Dr. Giles on 01-24-2023 Calcium [Mass/Vol] 9.4 mg/dL 8.5-10.1 [facility] Serum or plasma cholesterol in HDL measurement (mass/volume)Ordered By: Dr. Giles on 01-24-2023 Cholesterol in HDL [Mass/Vol] 62 mg/dL >[address] [facility] Comment on above: The drugs N-Acetylcy steine and Metamizole may falsely depress this assay. Reference Range HDL <40 mg/dL Low HDL Cholesterol HDL >or= 60 mg/dL High HDL Cholesterol Serum or plasma cholesterol in VLDL measurement (mass/volume)Ordered By: Dr. Giles on 01-24-2023 Cholesterol in VLDL [Mass/Vol] 31 mg/dL 5-[address] [facility] Serum or plasma creatinine m easurement (mass/volume)Ordered By: Dr. Giles on 01-24-2023 Creatinine [Mass/Vol] 1.57 mg/dL 0.70-1.30 [facility] Comment on above: The validity of the calculated GFR & GFRAA in patients over 70 years has not been determined. Clinical correlation is essential. Serum or plasma low density lipoprotein (LDL) cholesterol measurement (mass/volume)Ordered By: Dr. Giles on 01-24-2023 Cholesterol in LDL [Mass/Vol] 61 mg/dL 0-[address] [facility] Serum or plasma urea nitroge n measurement (mass/volume)Ordered By: Dr. Giles on 01-24-2023 Urea nitrogen [Mass/Vol] 23 mg/dL 7-[address] [facility] Thin prep Papanicolaou smear with manual screeningOrdered By: Dr. Giles on 01-24-2023 Thin prep Papanicolaou smear with manual screening 19 U/L 15-[address] [facility] Thin prep Papanicolaou smear with manual screening 5 5-[address] [facility] No Panel InformationOrdered By: Dr. Palafox on 12-02-2022 Troponin I High Sensitivity 10 pg/mL 3.0-78.[address] [facility] Comment on above: Please Note: New Alexandra t Units and Gender Specific Reference Ranges. For more information see Policy Stat Procedure [place] High Sensitivity Troponin (TNIH) and attachments. XR SHOULDER GENERAL 3V OR MO RE AP/TRUE AP/OTHER RIGHTon 11-22-2022 [facility] XR Shoulder - right 3 Viewso n 11-22-2022 IMPRESSION: Degenera tive changes in the right shoulder as described above. University Lecturer: PSCB Transcribe Date/Time: Nov 22 2022 3:03P Dictated by : ALLIE LEA MD This examination was interpreted and the report reviewed and electronically signed by: ALLIE LEA MD on Nov 22 2022 3:08PM [facility] DIVISION OF RADIOLOGY * * *Final Report* * * DATE OF EXAM: Nov 22 2022 2:56PM WOX 5253 - XR SHLDR >/=3V AP/SUSY AP/OTHR RT / PROCEDURE REASON: Acute pain of right shoulder * * * * Physician Interpretation * * * * EXAM TITLE: XR SHLDR >/=3V AP/SUSY AP/OTHR RT EXAM DATE/TIME: 11/22/2022 2:56 PM COMPARISON: None. CLINICAL INDICATION/HISTORY: Injury. TECHNIQUE: AP, true AP and Y views of the right shoulder are presented FINDINGS: No acute fractures or subluxations are noted. Severe acromioclavicular joint space narrowing is noted, with osteophyte formation. There appears to be slight narrowing of the glenohumeral joint, with osteophyte formation. Hypertrophic degenerative changes seen along the acromion and greater tuberosity. The acromiohumeral interval is maintained. The mineralization of the bones is normal. There is no significant soft tissue swelling however focal calcification seen along the greater tuberosity. Others: Age indeterminate right eighth rib. Status post mediastinal sternotomy. DIVISION OF RADIOLOGY Provider, [facility] - 11/22/2022 * * *Final Report* * * DATE OF EXAM: Nov 22 2022 2:56PM WOX 5253 - XR SHLDR >/=3V AP/SUSY AP/OTHR RT / PROCEDURE REASON: Acute pain of right shoulder * * * * Physician Interpretation * * * * EXAM TITLE: XR SHLDR >/=3V AP/SUSY AP/OTHR RT EXAM DATE/TIME: 11/22/2022 2:56 PM COMPARISON: None. CLINICAL INDICATION/HISTORY: Injury. TECHNIQUE: AP, true AP and Y views of the right shoulder are presented FINDINGS: No acute fractures or subluxations are noted. Severe acromioclavicular joint space narrowing is noted, with osteophyte formation. There appears to be slight narrowing of the glenohumeral joint, with osteophyte formation. Hypertrophic degenerative changes seen along the acromion and greater tuberosity. The acromiohumeral interval is maintained. The mineralization of the bones is normal. There is no significant soft tissue swelling however focal calcification seen along the greater tuberosity. Others: Age indeterminate right eighth rib. Status post mediastinal sternotomy. IMPRESSION IMPRESSION: Degenerative changes in the right shoulder as described above. University Lecturer: TIMOTEO Transcribe Date/Time: Nov 22 2022 3:03P Dictated by : ALLIE LEA MD This examination was interpreted and the report reviewed and electronically signed by: ALLIE LEA MD on Nov 22 2022 3:08PM EST [facility] Radiology Study observation (narrative) Dolly hernández [facility] XR Shoulder - right 3 ViewsO rdered By: [facility] Provider on 11-22-2022 [facility] Basophil percentageOrdered B y: Dr. Betancur on 10-30-2022 Chloride [Moles/Vol] 103 mmol/L 98-107 [facility] Glucose [Mass/Vol] 108 mg/dL 74-106 [facility] Comment on above: Fasting Glucose resu lt from 100 to 125 mg/dL suggests IMPAIRED HOMEOSTASIS per A.D.A. criteria. Potassium [Moles/Vol] 4.1 mmol/L 3.5-5.1 [facility] Sodium [Moles/Vol] 136 mmol/L 136-145 [facility] Laboratory - Chemistry and C hemistry - challengeOrdered By: Dr. Betancur on 10-30-2022 CO2 [Moles/Vol] 27.0 mmol/L 21.0-32.[address] [facility] Urea nitrogen/Creatinine [Mass ratio] 28.0 mg/mg 10-[address] [facility] No Panel InformationOrdered By: Dr. Betancur on 10-30-2022 Estimated Creatinine Clearance Calc 56.02 ml/min [facility] Estimated GFR (MDRD) Amer 79 mL/min >[address] [facility] Comment on above: GFR Calc Estimated GFR (MDRD) Non-Af Amer 65 mL/min >[address] [facility] Comment on above: Non- GFR Calc Serum or plasma calcium jimbo urement (mass/volume)Ordered By: Dr. Betancur on 10-30-2022 Calcium [Mass/Vol] 9.1 mg/dL 8.5-10.1 [facility] Serum or plasma creatinine m easurement (mass/volume)Ordered By: Dr. Betancur on 10-30-2022 Creatinine [Mass/Vol] 1.18 mg/dL 0.70-1.30 [facility] Comment on above: The validity of the calculated GFR & GFRAA in patients over 70 years has not been determined. Clinical correlation is essential. Serum or plasma urea nitroge n measurement (mass/volume)Ordered By: Dr. Betancur on 10-30-2022 Urea nitrogen [Mass/Vol] 33 mg/dL 7-[address] [facility] Thin prep Papanicolaou smear with manual screeningOrdered By: Dr. Betancur on 10-30-2022 Thin prep Papanicolaou smear with manual screening 6 5-[address] [facility] Absolute lymphocyte countOrd ered By: Dr. Betancur on 10-29-2022 Lymphocytes Auto (Unsp spec) [#/Vol] 0.35 10*3/uL 0.83-4.[address] [facility] Basophil percentageOrdered B y: Dr. Betancur on 10-29-2022 Basophils/100 WBC (Bld) 0.0 % 0-1 [facility] Eosinophils/100 WBC (Bld) 0.0 % 0-[address] [facility] Neutrophils (Bld) [#/Vol] 5.6 10*3/uL 2.0-7.[address] [facility] Neutrophils/100 WBC (Bld) 88.8 % 47-[address] [facility] WBC (Bld) [#/Vol] 6.3 10*3/uL 4.4-11.0 [facility] Blood erythrocytes count (nu mber/volume)Ordered By: Dr. Betancur on 10-29-2022 RBC (Bld) [#/Vol] 4.18 10*6/uL 4.6-6.2 [facility] Blood hemoglobin measurement (mass/volume)Ordered By: Dr. Betancur on 10-29-2022 Hemoglobin (Bld) [Mass/Vol] 12.9 g/dL 13.0-16.[address] [facility] Blood lymphocytes/100 leukoc ytesOrdered By: Dr. Betancur on 10-29-2022 Lymphocytes/100 WBC (Bld) 5.5 % 19-[address] [facility] Blood manual differential co mment interpretation (narrative result)Ordered By: Dr. Betancur on 10-29-2022 Manual differential comment Anurag (Bld) [Interp] SCANNED [facility] Blood monocytes/100 leukocyt esOrdered By: Dr. Betancur on 10-29-2022 Monocytes/100 WBC (Bld) 5.4 % 0-10 [facility] Blood platelet mean volumeOr dered By: Dr. Betancur on 10-29-2022 Platelet mean volume (Bld) [Entitic vol] 9.4 fL 6.2-12.[address] [facility] Determination of erythrocyte mean corpuscular volume (MCV)Ordered By: Dr. Betancur on 10-29-2022 MCV (RBC) [Entitic vol] 94.0 fL 80-94 [facility] Hematocrit Auto (Bld) [Volum e fraction]Ordered By: Dr. Betancur on 10-29-2022 Hematocrit (Bld) [Volume fraction] 39.3 % 40-[address] [facility] Laboratory - Hematology and Cell countsOrdered By: Dr. Betancur on 10-29-2022 Erythrocyte distribution width (RBC) [Entitic vol] 47.0 fL 35.1-43.[address] [facility] Erythrocyte distribution width (RBC) [Ratio] 13.5 % 11.6-14.[address] [facility] Immature granulocytes/100 WBC (Bld) 0.300 % 0.0-0.[address] [facility] Comment on above: IG% - Immature Granu locytes (promyelocytes, myelocytes and metamyelocytes) > 1% indicates that a LEFT SHIFT is Present. MCH (RBC) [Entitic mass] 30.9 pg 27.0-32.[address] [facility] Nucleated RBC/100 WBC (Bld) [Ratio] 0 % 0-[address] [facility] MCHC Auto (RBC) [Mass/Vol]Or dered By: Dr. Betancur on 10-29-2022 MCHC (RBC) [Mass/Vol] 32.8 g/dL 32-36 [facility] Platelets bldOrdered By: Dr. Betancur on 10-29-2022 Platelets (Bld) [#/Vol] 186 10*3/uL 150-[address] [facility] Absolute lymphocyte counton 10-28-2022 Lymphocytes Auto (Unsp spec) [#/Vol] 0.83 10*3/uL 0.83-4.[address] [facility] Work Phone: Basophil percentageOrdered B y: Dr. Henriquez on 10-28-2022 Bilirubin [Mass/Vol] 0.60 mg/dL 0.20-1.00 [facility] Comment on above: For patients on eltr ombopag therapy, use of Dimension [place] TBIL is not recommended. Protein [Mass/Vol] 7.0 g/dL 6.4-8.2 [facility] Basophil percentageon 2021 Basophils/100 WBC (Bld) 0.2 % 0-1 [facility] Work Phone: Chloride [Moles/Vol] 97 mmol/L 98-107 [facility] Work Phone: Eosinophils/100 WBC (Bld) 0.0 % 0-[address] [facility] Work Phone: Glucose [Mass/Vol] 118 mg/dL 74-106 [facility] Work Phone: Comment on above: Fasting Glucose resu lt from 100 to 125 mg/dL suggests IMPAIRED HOMEOSTASIS per A.D.A. criteria. Neutrophils (Bld) [#/Vol] 5.0 10*3/uL 2.0-7.[address] [facility] Work Phone: Neutrophils/100 WBC (Bld) 76.8 % 47-[address] [facility] Work Phone: Potassium [Moles/Vol] 3.4 mmol/L 3.5-5.1 [facility] Work Phone: Sodium [Moles/Vol] 134 mmol/L 136-145 [facility] Work Phone: WBC (Bld) [#/Vol] 6.5 10*3/uL 4.4-11.0 [facility] Work Phone: [phone] Blood erythrocytes count (nu mber/volume)on 10-28-2022 RBC (Bld) [#/Vol] 4.72 10*6/uL 4.6-6.2 [facility] Work Phone: Blood hemoglobin measurement (mass/volume)on 10-28-2022 Hemoglobin (Bld) [Mass/Vol] 14.5 g/dL 13.0-16.[address] [facility] Work Phone: Blood lymphocytes/100 leukoc yteson 10-28-2022 Lymphocytes/100 WBC (Bld) 12.7 % 19-[address] [facility] Work Phone: Blood monocytes/100 leukocyt eson 10-28-2022 Monocytes/100 WBC (Bld) 10.0 % 0-10 [facility] Work Phone: Blood platelet mean volumeon 10-28-2022 Platelet mean volume (Bld) [Entitic vol] 9.0 fL 6.2-12.[address] [facility] Work Phone: Determination of erythrocyte mean corpuscular volume (MCV)on 10-28-2022 MCV (RBC) [Entitic vol] 92.8 fL 80-94 [facility] Work Phone: Hematocrit Auto (Bld) [Volum e fraction]on 10-28-2022 Hematocrit (Bld) [Volume fraction] 43.8 % 40-[address] [facility] Work Phone: Influenza virus A and B and SARS-CoV-2 (COVID-19) Ag panel - Upper respiratory specimOrdered By: Dr. Whitney on 10-28-2022 SARS-CoV-2 (COVID-19) RNA JESSICA+probe Ql (Resp) [facility] Laboratory - Chemistry and C hemistry - challengeOrdered By: Dr. Henriquez on 10-28-2022 ALP [Catalytic activity/Vol] 63 U/L 45-[address] [facility] ALT [Catalytic activity/Vol] 23 U/L 16-[address] [facility] Globulin (S) [Mass/Vol] 3.5 g/dL 2.2-4.2 [facility] Magnesium [Mass/Vol] 2.2 mg/dL 1.6-2.6 [facility] Laboratory - Chemistry and C hemistry - challengeon 10-28-2022 CO2 [Moles/Vol] 29.0 mmol/L 21.0-32.[address] [facility] Work Phone: Urea nitrogen/Creatinine [Mass ratio] 14.4 mg/mg 10-[address] [facility] Work Phone: Laboratory - Chemistry and C hemistry - challengeOrdered By: Dr. Whitney on 10-28-2022 Natriuretic peptide B (Bld) [Mass/Vol] 60.4 pg/mL 0-[address] [facility] Laboratory - Hematology and Cell countson 10-28-2022 Erythrocyte distribution width (RBC) [Entitic vol] 45.6 fL 35.1-43.[address] [facility] Work Phone: Erythrocyte distribution width (RBC) [Ratio] 13.3 % 11.6-14.[address] [facility] Work Phone: Immature granulocytes/100 WBC (Bld) 0.300 % 0.0-0.[address] [facility] Work Phone: Comment on above: IG% - Immature Granu locytes (promyelocytes, myelocytes and metamyelocytes) > 1% indicates that a LEFT SHIFT is Present. MCH (RBC) [Entitic mass] 30.7 pg 27.0-32.[address] [facility] Work Phone: Nucleated RBC/100 WBC (Bld) [Ratio] 0 % 0-[address] [facility] Work Phone: MCHC Auto (RBC) [Mass/Vol]on 10-28-2022 MCHC (RBC) [Mass/Vol] 33.1 g/dL 32-36 [facility] Work Phone: [phone] No Panel Informationon 10-28 Estimated Creatinine Clearance Calc 41.31 ml/min [facility] Work Phone: Estimated GFR (MDRD) Amer 56 mL/min >[address] [facility] Work Phone: Comment on above: GFR Calc Estimated GFR (MDRD) Non-Af Amer 46 mL/min >[address] [facility] Work Phone: Comment on above: Non- GFR Calc No Panel InformationOrdered By: Dr. Whitney on 10-28-2022 Troponin I High Sensitivity 31 pg/mL 3.0-78.[address] [facility] Comment on above: Please Note: New Alexandra t Units and Gender Specific Reference Ranges. For more information see Policy Stat Procedure [place] High Sensitivity Troponin (TNIH) and attachments. Platelets bldon 10-28-2022 Platelets (Bld) [#/Vol] 222 10*3/uL 150-[address] [facility] Work Phone: Serum or plasma albumin jimbo urement (mass/volume)Ordered By: Dr. Henriquez on 10-28-2022 Albumin [Mass/Vol] 3.5 g/dL 3.2-5.0 [facility] Serum or plasma albumin/glob ulin mass ratioOrdered By: Dr. Henriquez on 10-28-2022 Albumin/Globulin [Mass ratio] 1.0 {ratio} 0.9-2.[address] [facility] Serum or plasma calcium jimbo urement (mass/volume)on 10-28-2022 Calcium [Mass/Vol] 9.3 mg/dL 8.5-10.1 [facility] Work Phone: Serum or plasma creatinine m easurement (mass/volume)on 10-28-2022 Creatinine [Mass/Vol] 1.60 mg/dL 0.70-1.30 [facility] Work Phone: Comment on above: The validity of the calculated GFR & GFRAA in patients over 70 years has not been determined. Clinical correlation is essential. Serum or plasma urea nitroge n measurement (mass/volume)on 10-28-2022 Urea nitrogen [Mass/Vol] 23 mg/dL 7-[address] [facility] Work Phone: Thin prep Papanicolaou smear with manual screeningOrdered By: Dr. Henriquez on 10-28-2022 Thin prep Papanicolaou smear with manual screening 20 U/L 15-[address] [facility] Thin prep Papanicolaou smear with manual screeningon 10-28-2022 Thin prep Papanicolaou smear with manual screening 8 5-[address] [facility] Work Phone: Respiratory pathogens DNA an d RNA 12b panel JESSICA+probe (Unsp spec)Ordered By: Radha Roberts on 10-27-2022 Respiratory Panel (PCR) Influenza A (Subtype H1) [facility] Albumin Elph [Mass/Vol]on Albumin [Mass/Vol] 3.5 g/dL 2.9-4.4 [facility] Work Phone: Atypical perinuclear antineu trophil cytoplasmic antibodies measurementon 07-28-2022 Neutrophil cytoplasmic Ab.perinuclear.atypical IF (S) [Titer] <1:20 titer Neg:<1:[address] [facility] Work Phone: Comment on above: The atypical pANCA p attern has been observed in asignificant percentage of patients with ulcerative colitis,primary sclerosing cholangitis and autoimmune hepatitis. Basophil percentageon 2021 Basophil percentage < 0.2 AI 0.0-0.9 [facility] Work Phone: Erythrocyte sedimentation ra myles 07-28-2022 ESR (Bld) [Velocity] 10 mm/h 0-20 [facility] Work Phone: Interpretation of serum or p lasma protein pattern by immunofixation (narrative resulton 07-28-2022 Protein Fractions Immunofixation Anurag [Interp] See comment [facility] Work Phone: Comment on above: NOt Observed No Panel Informationon 07-28 Addendum Document Comment . [facility] Work Phone: Comment on above: Protein electrophore sis scan will follow via computer,mail, or environmental health and safety leader delivery. Centromere B Antibody <0.2 AI 0.0-0.9 [facility] Work Phone: Endomysial IgA Antibody Negative Negative [facility] Work Phone: Immunoglobulin E 94 IU/mL 6-[address] [facility] Work Phone: Comment on above: Performed at: - [facility] [address] [id number] Director: Gian Hopkins PhD, Phone: [phone] at: [facility] [id number] Director: Patricia Rivera MD, Phone: [phone] [employer]NAGER Antibody 0.2 AI 0.0-0.[address] [facility] Work Phone: Serum DNA double strand anti body assay (units/volume)on 07-28-2022 DNA double strand Ab Qn (S) [IU]/mL 0-[address] [facility] Work Phone: Comment on above: Negative <5 Equivoca l 5 - 9 Positive >9 Serum Maki-1 antibody assay (u nits/volume)on 07-28-2022 Maki-1 extractable nuclear Ab Qn (S) <0.2 AI 0.0-0.[address] [facility] Work Phone: Serum Scl-70 extractable nuc lear antibody assay (units/volume)on 07-28-2022 SCL-70 extractable nuclear Ab Qn (S) <0.2 AI 0.0-0.[address] [facility] Work Phone: Serum Reyes extractable nucl ear antibody detectionon 07-28-2022 Reyes extractable nuclear Ab Ql (S) <0.2 AI 0.0-0.[address] [facility] Work Phone: Serum [id number] measu rement by electrophoresison 07-28-2022 Alpha 1 globulin Elph [Mass/Vol] 0.3 g/dL 0.0-0.[address] [facility] Work Phone: Alpha 1 globulin Elph [Mass/Vol] 0.9 g/dL 0.4-1.[address] [facility] Work Phone: Serum classic neutrophil cyt oplasmic antibody assay (units/volume)on 07-28-2022 Neutrophil cytoplasmic Ab.classic Qn (S) <1:20 titer Neg:<1:[address] [facility] Work Phone: Serum globulin measurement ( mass/volume)on 07-28-2022 Globulin (S) [Mass/Vol] 2.8 g/dL 2.2-3.9 [facility] Work Phone: Serum or plasma C reactive p rotein measurement (mass/volume)on 07-28-2022 CRP [Mass/Vol] mg/L 0.0-3.[address] [facility] Work Phone: Comment on above: C-Reactive Protein ( CRP) provides useful information for thediagnosis, therapy and monitoring of inflammatory processesand associated diseases. For the evaluation of Relative Riskfor Cardiovascular Disease, a High Sensitivity CRP (HSCRP)should be ordered. Serum or plasma IgA measurem ent (mass/volume)on 07-28-2022 IgA [Mass/Vol] 175 mg/dL 61-[address] [facility] Work Phone: Serum or plasma IgG measurem ent (mass/volume)on 07-28-2022 IgG [Mass/Vol] 789 mg/dL [phone] [facility] Work Phone: Serum or plasma IgM measurem ent (mass/volume)on 07-28-2022 IgM [Mass/Vol] 105 mg/dL 20-[address] [facility] Work Phone: Serum or plasma beta globuli n measurement by electrophoresis (mass/volume)on 07-28-2022 Beta globulin Elph [Mass/Vol] 0.9 g/dL 0.7-1.[address] [facility] Work Phone: Serum or plasma gamma globul in measurement by electrophoresis (mass/volume)on 07-28-2022 Gamma globulin Elph [Mass/Vol] 0.8 g/dL 0.4-1.[address] [facility] Work Phone: Serum or plasma immunoelectr ophoresis interpretation (nominal result)on 07-28-2022 Interpretation IEP [Interp] Comment . [facility] Work Phone: Comment on above: No monoclonality det ected. Serum perinuclear neutrophil cytoplasmic antibody titer by immunofluorescenceon 07-28-2022 Neutrophil cytoplasmic Ab.perinuclear IF (S) [Titer] <1:20 titer Neg:<1:[address] [facility] Work Phone: Comment on above: The presence of posi tive fluorescence exhibiting P-ANCA orC-ANCA patterns alone is not specific for the diagnosis ofWegener's Granulomatosis (WG) or microscopic polyangiitis.Decisions about treatment should not be based solely onANCA IFA results. The [employer] ANCA [employer] Consensusrecommends follow up testing of positive sera with both AR-3 and MPO-ANCA enzyme immunoassays. As many as 5% serumsamples are positive only by EIA. Ref. AM J Clin [id number];111:507-513. Serum tissue transglutaminas e IgA antibody assay (units/volume)on 07-28-2022 tTG IgA Qn (S) <2 U/mL 0-[address] [facility] Work Phone: Comment on above: Negative 0 - 3 Weak Positive 4 - 10 Positive >10 Tissue Transglutaminase (tTG) has been identified as the endomysial antigen. Studies have demonstr- ated that endomysial IgA antibodies have over 99% specificity for gluten sensitive enteropathy. Thin prep Papanicolaou smear with manual screeningon 07-28-2022 Thin prep Papanicolaou smear with manual screening 1.3 0.7-1.[address] [facility] Work Phone: Total protein bloodon 2021 Protein [Mass/Vol] 6.3 g/dL 6.0-8.5 [facility] Work Phone: CBC W Auto Differential pane l (Bld)on 07-15-2022 Basophils (Bld) [#/Vol] 10*3/uL Normal <0.[address] [facility] Comment on above: Order Comment: Speci men Type: BLOOD SPECIMEN Ordering Facility: [facility] Address: [address] [address] Performed By: #### 5 7021-8 #### [employer] [facility] CLIA [id number] [address] [place] [address] [place] Basophils/100 WBC (Bld) 0.0 % Normal [facility] Comment on above: Order Comment: Speci men Type: BLOOD SPECIMEN Ordering Facility: [facility] Address: [address] [address] Performed By: #### 5 7021-8 #### [employer] [facility] CLIA [id number] [address] [place] [address] [place] Differential cell count method Nom (Bld) Auto Normal [facility] Comment on above: Order Comment: Speci men Type: BLOOD SPECIMEN Ordering Facility: [facility] Address: [address] [address] Performed By: #### 5 7021-8 #### [facility] CLIA [id number] [address] [place] [address] [place] Eosinophils (Bld) [#/Vol] 10*3/uL Normal <0.46 [facility] Comment on above: Order Comment: Speci men Type: BLOOD SPECIMEN Ordering Facility: [facility] Address: [address] [place] [address] Performed By: #### 5 7021-8 #### [facility] CLIA [id number] [address] [place] Eosinophils/100 WBC (Bld) 0.1 % Normal [facility] Comment on above: Order Comment: Speci men Type: BLOOD SPECIMEN Ordering Facility: [facility] Address: [address] [place] [address] Performed By: #### 5 7021-8 #### [facility] CLIA [id number] [address] [place] Erythrocyte distribution width (RBC) [Ratio] 12.5 % Normal 11.5-15.0 [facility] Comment on above: Order Comment: Speci men Type: BLOOD SPECIMEN Ordering Facility: [facility] Address: [address] [place] [address] Performed By: #### 5 7021-8 #### [facility] CLIA [id number] [address] [place] [address] [place] Hematocrit (Bld) [Volume fraction] 35.7 % Low 39.0-51.0 [facility] Comment on above: Order Comment: Speci men Type: BLOOD SPECIMEN Ordering Facility: [facility] Address: [address] [place] [address] Performed By: #### 5 7021-8 #### [facility] CLIA [id number] [address] [place] [address] [place] Hemoglobin (Bld) [Mass/Vol] 11.8 g/dL Low 13.0-17.0 [facility] Comment on above: Order Comment: Speci men Type: BLOOD SPECIMEN Ordering Facility: [facility] Address: [address] [place] [address] Performed By: #### 5 7021-8 #### [facility] CLIA [id number] [address] [place] Lymphocytes (Bld) [#/Vol] 0.89 10*3/uL Low 1.00-4.00 [facility] Comment on above: Order Comment: Speci men Type: BLOOD SPECIMEN Ordering Facility: [facility] Address: [address] [place] [address] Performed By: #### 5 7021-8 #### [facility] CLIA [id number] [address] [place] Lymphocytes/100 WBC (Bld) 9.3 % Normal [facility] Comment on above: Order Comment: Speci men Type: BLOOD SPECIMEN Ordering Facility: [facility] Address: [address] [place] [address] Performed By: #### 5 7021-8 #### [facility] CLIA [id number] [address] [place] MCH (RBC) [Entitic mass] 31.5 pg Normal 26.0-34.0 [facility] Comment on above: Order Comment: Speci men Type: BLOOD SPECIMEN Ordering Facility: [facility] Address: [address] [place] [address] Performed By: #### 5 7021-8 #### [facility] CLIA [id number] [address] [place] MCHC (RBC) [Mass/Vol] 33.1 g/dL Normal 30.5-36.0 [facility] Comment on above: Order Comment: Speci men Type: BLOOD SPECIMEN Ordering Facility: [facility] Address: [address] [place] [address] Performed By: #### 5 7021-8 #### [facility] CLIA [id number] [address] [place] [address] [place] MCV (RBC) [Entitic vol] 95.2 fL Normal 80.0-100.[address] [facility] Comment on above: Order Comment: Speci men Type: BLOOD SPECIMEN Ordering Facility: [facility] Address: [address] [place] [address] Performed By: #### 5 7021-8 #### [facility] CLIA [id number] [address] [place] [address] [place] Monocytes (Bld) [#/Vol] 0.76 10*3/uL Normal <0.87 [facility] Comment on above: Order Comment: Speci men Type: BLOOD SPECIMEN Ordering Facility: [facility] Address: [address] [place] [address] Performed By: #### 5 7021-8 #### [facility] CLIA [id number] [address] [place] [address] [place] Monocytes/100 WBC (Bld) 7.9 % Normal [facility] Comment on above: Order Comment: Speci men Type: BLOOD SPECIMEN Ordering Facility: [facility] Address: [address] [place] [address] Performed By: #### 5 7021-8 #### [facility] CLIA [id number] [address] [place] [address] [place] Neutrophils (Bld) [#/Vol] 7.94 10*3/uL High 1.45-7.50 [facility] Comment on above: Order Comment: Speci men Type: BLOOD SPECIMEN Ordering Facility: [facility] Address: [address] [place] [address] Performed By: #### 5 7021-8 #### [facility] CLIA [id number] [address] [place] [address] [place] Neutrophils/100 WBC (Bld) 82.7 % Normal [facility] Comment on above: Order Comment: Speci men Type: BLOOD SPECIMEN Ordering Facility: [facility] Address: [address] [place] [address] Performed By: #### 5 7021-8 #### [facility] CLIA [id number] [address] [place] [address] [place] Platelet mean volume (Bld) [Entitic vol] 9.4 fL Normal 9.0-12.7 [facility] Comment on above: Order Comment: Speci men Type: BLOOD SPECIMEN Ordering Facility: [facility] Address: [address] [place], [place] [id number] Performed By: #### 5 7021-8 #### [facility] CLIA [id number] [address] [place] [address] [place] Platelets (Bld) [#/Vol] 259 10*3/uL Normal 150-400 [facility] Comment on above: Order Comment: Speci men Type: BLOOD SPECIMEN Ordering Facility: [facility] Address: [address] [place], [place] [address] Performed By: #### 5 7021-8 #### [facility] CLIA [id number] [address] [place] [address] [place] RBC (Bld) [#/Vol] 3.75 10*6/uL Low 4.20-6.00 [facility] Comment on above: Order Comment: Speci men Type: BLOOD SPECIMEN Ordering Facility: [facility] Address: [address] [place], [place] [id number] Performed By: #### 5 7021-8 #### [facility] CLIA [id number] [address] [place] [address] [place] WBC (Bld) [#/Vol] 9.60 10*3/uL Normal 3.70-11.00 [facility] Comment on above: Order Comment: Speci men Type: BLOOD SPECIMEN Ordering Facility: [facility] Address: [address] [place], [place] [address] Performed By: #### 5 7021-8 #### [facility] CLIA [id number] [address] [place] [address] [place] [facility] CT BRAIN WO IVCONon 07-15-20 CT BRAIN WO IVCON * * *Final Report* * * DATE OF EXAM: Jul 15 2022 11:00AM [facility] 0504 - CT BRAIN WO IVCON / PROCEDURE REASON: Head trauma, minor (Age >= 65y) * * * * Physician Interpretation * * * * EXAMINATION: CT BRAIN WO IVCON, CT CERVICAL SPINE WO IVCON CLINICAL HISTORY: Head trauma, minor. Spine fracture, cervical, traumatic. Status post fall. Syncopal episode. TECHNIQUE: Serial axial unenhanced images were obtained from the vertex to the foramen magnum. Spiral, high resolution axial unenhanced images were obtained from the skull base to the cervicothoracic junction with sagittal and coronal planar reconstructions. MQ: CTBCSWO_3 Dose-Length Product (DLP): 772.45 (accession [id number]), 315.30 (accession [id number]) mGy*cm. CT Dose Reduction Employed: No dose reduction techniques were required COMPARISON: No prior available. RESULT: BRAIN: Acute change: No evidence of an acute contusion or other acute parenchymal process. Hemorrhage: No evidence of acute intracranial hemorrhage. Mass lesion / Mass effect: There is no evidence of an intracranial mass or extraaxial fluid collection. No significant mass effect. Chronic change: None apparent. Parenchyma: There is no significant volume loss. The brain parenchyma is otherwise within normal limits for age. Ventricles: The ventricles are within normal limits of size and configuration for age. Paranasal sinuses and skull base: Minimal mucosal thickening in some of the paranasal sinuses. The skull base and visualized extracranial soft tissues are grossly normal. CERVICAL: Counting reference: Craniocervical junction. Anatomic Variants: None. Alignment: Alignment is within normal limits. Craniocervical junction: Craniocervical junction is within normal limits. Osseous structures/fracture: No evidence of a lytic or blastic process in the visualized spine. No evidence of acute or chronic fracture. Cervical soft tissues: The paraspinal soft tissues planes are maintained. No prevertebral soft tissue swelling. Emphysema in the lung apices. Degenerative changes: Mild multilevel cervical degenerative disc disease. Mild to moderate multilevel cervical facet joint arthrosis.. IMPRESSION: 1. No evidence of acute intracranial process. 2. No evidence of acute cervical spine fracture. Multilevel degenerative changes of the cervical spine as detailed above. Anatomic Variant: None. Assume 7 cervical vertebrae with counting from the craniocervical junction. University Lecturer: TIM[employer] Transcribe Date/Time: Jul 15 2022 11:57A Dictated by : PLII RITCHIE MD This examination was interpreted and the report reviewed and electronically signed by: PILI RITCHIE MD on Jul 15 2022 12:18PM EST [id number] Normal [facility] CT CERVICAL SPINE WO IVCONon 07-15-2022 CT CERVICAL SPINE WO IVCON * * *Final Report* * * DATE OF EXAM: Jul 15 2022 11:00AM [facility] 0505 - CT CERVICAL SPINE WO IVCON / PROCEDURE REASON: Spine fracture, cervical, traumatic * * * * Physician Interpretation * * * * EXAMINATION: CT BRAIN WO IVCON, CT CERVICAL SPINE WO IVCON CLINICAL HISTORY: Head trauma, minor. Spine fracture, cervical, traumatic. Status post fall. Syncopal episode. TECHNIQUE: Serial axial unenhanced images were obtained from the vertex to the foramen magnum. Spiral, high resolution axial unenhanced images were obtained from the skull base to the cervicothoracic junction with sagittal and coronal planar reconstructions. MQ: CTBCSWO_3 Dose-Length Product (DLP): 772.45 (accession [id number]), 315.30 (accession [id number]) mGy*cm. CT Dose Reduction Employed: No dose reduction techniques were required COMPARISON: No prior available. RESULT: BRAIN: Acute change: No evidence of an acute contusion or other acute parenchymal process. Hemorrhage: No evidence of acute intracranial hemorrhage. Mass lesion / Mass effect: There is no evidence of an intracranial mass or extraaxial fluid collection. No significant mass effect. Chronic change: None apparent. Parenchyma: There is no significant volume loss. The brain parenchyma is otherwise within normal limits for age. Ventricles: The ventricles are within normal limits of size and configuration for age. Paranasal sinuses and skull base: Minimal mucosal thickening in some of the paranasal sinuses. The skull base and visualized extracranial soft tissues are grossly normal. CERVICAL: Counting reference: Craniocervical junction. Anatomic Variants: None. Alignment: Alignment is within normal limits. Craniocervical junction: Craniocervical junction is within normal limits. Osseous structures/fracture: No evidence of a lytic or blastic process in the visualized spine. No evidence of acute or chronic fracture. Cervical soft tissues: The paraspinal soft tissues planes are maintained. No prevertebral soft tissue swelling. Emphysema in the lung apices. Degenerative changes: Mild multilevel cervical degenerative disc disease. Mild to moderate multilevel cervical facet joint arthrosis.. IMPRESSION: 1. No evidence of acute intracranial process. 2. No evidence of acute cervical spine fracture. Multilevel degenerative changes of the cervical spine as detailed above. Anatomic Variant: None. Assume 7 cervical vertebrae with counting from the craniocervical junction. University Lecturer: P[employer] Transcribe Date/Time: Jul 15 2022 11:57A Dictated by : PILI RITCHIE MD This examination was interpreted and the report reviewed and electronically signed by: PILI RITCHIE MD on Jul 15 2022 12:18PM EST [id number] Normal [facility] CT CHEST W IVCON PEon 2021 CT CHEST W IVCON PE * * *Final Report* * * DATE OF EXAM: Jul 15 2022 11:51AM [facility] 0540 - CT CHEST W IVCON PE / PROCEDURE REASON: Pulmonary embolism (PE) suspected, high prob * * * * Physician Interpretation * * * * EXAMINATION: CHEST CT WITH CONTRAST (PULMONARY EMBOLISM PROTOCOL) CLINICAL HISTORY: Pulmonary embolism (PE) suspected, high prob syncope, trauma 2 days ago Technique: Spiral CT acquisition of the chest from the thoracic inlet to the upper abdomen following IV contrast. Axial 1 and 3 mm thick slices plus coronal and sagittal reformatted images. MQ: CTCP_5 Contrast: 100 mL Omnipaque [address] Radiation dose: Integrated Dose-length product (DLP) for this visit = 315.30 mGy*cm CT Dose Reduction Employed: Automated exposure control (AEC) Comparison: No relevant prior studies available. RESULT: Limitations: None. Evaluation for thromboembolic disease: - Right heart chambers: No thromboembolic disease. - Main pulmonary arteries: No thromboembolic disease. - Lobar pulmonary arteries: No thromboembolic disease. - Segmental pulmonary arteries: No thromboembolic disease. - Subsegmental pulmonary arteries: No thromboembolic disease. - Additional pulmonary artery findings: The main pulmonary artery is normal in caliber. Lines, tubes, and devices: Status post CABG changes. Lung parenchyma and airways: No consolidation. No suspicious pulmonary nodule. The central airways are patent. Pleural space: No pleural effusion. Focal pleural calcification posterior right hemithorax.. No pneumothorax. Lower neck, lymph nodes, and mediastinum: The imaged thyroid gland is normal. No lymphadenopathy in the supraclavicular, axillary, mediastinal, or hilar regions. Heart, pericardium, and thoracic vessels: The thoracic aorta is normal in caliber. The cardiac chambers are normal in size. Coronary artery calcifications.. No pericardial effusion or thickening. Bones and soft tissues: No destructive bone lesion. Chest wall is unremarkable. Upper abdomen: No acute abnormality in the imaged upper abdomen. Cholelithiasis. Fatty liver changes. Refrigeration Installer (topogram) images: IMPRESSION: 1. No CT evidence of pulmonary embolism. 2. No CT evidence of acute traumatic injury to the chest. 3. Status post CABG changes. 4.No acute abnormality in the imaged upper abdomen. Cholelithiasis. Fatty liver changes. University Lecturer: [facility] Transcribe Date/Time: Jul 15 2022 12:17P Dictated by : SIRISHA MCGEE MD This examination was interpreted and the report reviewed and electronically signed by: SIRISHA MCGEE MD on Jul 15 2022 12:20PM EST [id number] Normal [facility] Comprehensive metabolic 2000 panelon 07-15-2022 Albumin [Mass/Vol] 3.9 g/dL Normal 3.9-4.9 [facility] Comment on above: Order Comment: Ashly oakley Type: BLOOD SPECIMEN Ordering Facility: [facility] Address: [address] [address] Performed By: #### 2 4323-8 #### [facility] CLIA [id number] [address] [place] [address] STATES OF [facility] ALP [Catalytic activity/Vol] 57 U/L Normal 38-113 [facility] Comment on above: Order Comment: Ashly oakley Type: BLOOD SPECIMEN Ordering Facility: [facility] Address: [address] [address] Performed By: #### 2 4323-8 #### [facility] CLIA [id number] [address] [place] [address] [place] With P-5'-P [Catalytic activity/Vol] 9 U/L Low 10-54 [facility] Comment on above: Order Comment: Speci men Type: BLOOD SPECIMEN Ordering Facility: [facility] Address: [address] [place] [address] Performed By: #### 2 4323-8 #### [facility] CLIA [id number] [address] [place] [address] [place] Anion gap [Moles/Vol] 11 mmol/L Normal 9-18 [facility] Comment on above: Order Comment: Speci men Type: BLOOD SPECIMEN Ordering Facility: [facility] Address: [address] [place] [address] Performed By: #### 2 4323-8 #### [facility] CLIA [id number] [address] [place], [place] [address] [place] [address] [place] AST With P-5'-P [Catalytic activity/Vol] 9 U/L Low 14-40 [facility] Comment on above: Order Comment: Speci men Type: BLOOD SPECIMEN Ordering Facility: [facility] Address: [address] [place] [address] Performed By: #### 2 4323-8 #### [facility] CLIA [id number] [address] [place], [place] [address] [place] [address] [place] Bilirubin [Mass/Vol] 0.6 mg/dL Normal 0.2-1.3 [facility] Comment on above: Order Comment: Speci men Type: BLOOD SPECIMEN Ordering Facility: [facility] Address: [address] [place] [address] Performed By: #### 2 4323-8 #### [facility] CLIA [id number] [address] [place] [address] [place] Calcium [Mass/Vol] 9.4 mg/dL Normal 8.5-10.2 [facility] Comment on above: Order Comment: Speci men Type: BLOOD SPECIMEN Ordering Facility: [facility] Address: [address] [address] Performed By: #### 2 4323-8 #### [facility] CLIA [id number] [address] [place] [address] [place] Chloride [Moles/Vol] 97 mmol/L Normal 97-105 [facility] Comment on above: Order Comment: Speci men Type: BLOOD SPECIMEN Ordering Facility: [facility] Address: [address] [place] [address] Performed By: #### 2 4323-8 #### [facility] CLIA [id number] [address] [place] [address] [place] CO2 [Moles/Vol] 32 mmol/L High 22-30 [facility] Comment on above: Order Comment: Speci men Type: BLOOD SPECIMEN Ordering Facility: [facility] Address: [address] [place] [address] Performed By: #### 2 4323-8 #### [facility] CLIA [id number] [address] [place] [address] [place] Creatinine [Mass/Vol] 1.48 mg/dL High 0.73-1.22 [facility] Comment on above: Order Comment: Speci men Type: BLOOD SPECIMEN Ordering Facility: [facility] Address: [address] [place] [address] Performed By: #### 2 4323-8 #### [facility] CLIA [id number] [address] [place] [address] [facility] [place] ESTIMATED GLOMERULAR FILTRATION RATE 51 mL/min/1.73m??? Low >=60 [facility] Comment on above: Order Comment: Speci men Type: BLOOD SPECIMEN Ordering Facility: [facility] Address: [address] [place] [address] Result Comment: Shelli mated Glomerular Filtration Rate (eGFR) is calculated using the 2020 CKD-EPI creatinine equation. This equation utilizes serum creatinine, sex, and age as parameters. The creatinine assay has traceable calibration to isotope dilution-mass spectrometry. Refer to KDIGO guidelines for clinical interpretation. In patients with unstable renal function, e.g. those with acute kidney injury, the eGFR may not accurately reflect actual GFR. Performed By: #### 2 4323-8 #### [facility] CLIA [id number] [address] [place] [address] [place] Glucose [Mass/Vol] 107 mg/dL High 74-99 [facility] Comment on above: Order Comment: Ashly oakley Type: BLOOD SPECIMEN Ordering Facility: [facility] Address: [address] [phone] Result Comment: The [place] [employer] (ADA) provides guidance for cutoff values for fasting glucose and random glucose. The ADA defines fasting as no caloric intake for at least 8 hours. Fasting plasma glucose results between 100 to 125 mg/dL indicate increased risk for diabetes (prediabetes). Fasting plasma glucose results greater than or equal to 126 mg/dL meet the criteria for diagnosis of diabetes. In the absence of unequivocal hyperglycemia, results should be confirmed by repeat testing. In a patient with classic symptoms of hyperglycemia or hyperglycemic crisis, random plasma glucose results greater than or equal to 200 mg/dL meet the criteria for diagnosis of diabetes. Reference: Standards of Medical Care in Diabetes 2016, [place] [employer]. Diabetes Care. 2016.39(Suppl 1). Performed By: #### 2 4323-8 #### [facility] CLIA [id number] [address] [place] [address] [place] Potassium [Moles/Vol] 3.6 mmol/L Low 3.7-5.1 [facility] Comment on above: Order Comment: Ashly oakley Type: BLOOD SPECIMEN Ordering Facility: [facility] Address: [address] [phone] Performed By: #### 2 4323-8 #### [facility] CLIA [id number] [address] [place] [address] [place] Protein [Mass/Vol] 6.3 g/dL Normal 6.3-8.0 [facility] Comment on above: Order Comment: Ashly oakley Type: BLOOD SPECIMEN Ordering Facility: [facility] Address: [address] [place] [address] Performed By: #### 2 4323-8 #### [facility] CLIA [id number] [address] [id number] [facility] Sodium [Moles/Vol] 140 mmol/L Normal 136-144 [facility] Comment on above: Order Comment: Speci men Type: BLOOD SPECIMEN Ordering Facility: [facility] Address: [address] [place] [address] Performed By: #### 2 4323-8 #### [facility] CLIA [id number] [address] [phone] [facility] [place] Urea nitrogen [Mass/Vol] 20 mg/dL Normal 9-24 [facility] Comment on above: Order Comment: Speci men Type: BLOOD SPECIMEN Ordering Facility: [facility] Address: [address] [place] [address] Performed By: #### 2 4323-8 #### [facility] CLIA [id number] [address] [id number] [place] ECG COMPLETEon 07-15-2022 ECG COMPLETE Ventricular Rate : 7 0 BPM Atrial Rate : 70 BPM P-R Interval : 116 ms QRS Duration : 136 ms Q-T Interval : 430 ms QTC Calculation(Bazett) : 464 ms Calculated P [place] : 19 degrees Calculated R [place] : -61 degrees Calculated T [place] : 0 degrees NORMAL SINUS RHYTHM WITH SINUS ARRHYTHMIA POSSIBLE LEFT ATRIAL ENLARGEMENT LEFT AXIS DEVIATION RIGHT BUNDLE BRANCH BLOCK ABNORMAL ECG NO PREVIOUS ECGS AVAILABLE Confirmed by MD HUIZAR VINAY ([id number]) on 07/19/2022 8:54:07 AM NAME : HORACE HENDERSON PID : [id number] : 1955 Gender : Male Race : ORD : [id number] Procedure Date : Jul 15 2022 10:14:20 Edit Date : Jul 19 2022 08:54:08 Diagnosis: NORMAL SINUS RHYTHM WITH SINUS ARRHYTHMIA POSSIBLE LEFT ATRIAL ENLARGEMENT LEFT AXIS DEVIATION RIGHT BUNDLE BRANCH BLOCK ABNORMAL ECG NO PREVIOUS ECGS AVAILABLE Confirmed by MD HUIZAR VINAY ([id number]) on 07/19/2022 8:54:07 AM Test Reason : Chest Pain Location : 150 : [facility] Overread By : MD HUIZAR VINAY Edited By : MD HUIZAR VINAY Referred By : , Acquired by : NERY MITCHELL [facility] ED NOTEon 07-15-2022 ED NOTE HNO ID: [id number] Author: Payal Santos RN Service: Nursing Author Type: Registered Nurse Type: ED Notes Filed: 07/16/2022 4:05 PM Note Text: Emergency Services: ED Call Back Questionnaire SERVICE DATE: 07/15/2022 Are you feeling better? Yes Any questions about discharge instructions and follow-up care? No Were you able to make a follow up appointment? Yes Do you have any further questions? No Is there anything that we could have done differently to improve your ED visit? No SIGNATURE: Payal Santos RN PATIENT NAME: Horace Henderson DATE: July 16, 2022 TIME: 4:05 PM [facility] ED NOTE HNO ID: [id number] Author: Mee Cordova RN Service: Nursing Author Type: Registered Nurse Type: ED Notes Filed: 07/15/2022 1:10 PM Note Text: Spoke with Dr Thacker, meal tray will be ordered for the patient [facility] ED NOTE HNO ID: [id number] Author: Mee Cordova RN Service: Nursing Author Type: Registered Nurse Type: ED Notes Filed: 07/15/2022 11:04 AM Note Text: I spoke to the patient concerning why he came to our facility. Pt stated, I was instructed to leave the Urgent Care and go either to [place] or [facility] to be evaluated, I don't think she wanted me to go back to [facility] after the lack of testing they did when I was there a few days ago. [facility] ED NOTE HNO ID: [id number] Author: Mee Cordova RN Service: Nursing Author Type: Registered Nurse Type: ED Notes Filed: 07/15/2022 10:39 AM Note Text: Patient informed: the name of medication, why we are giving it, possible side effects, what they may expect to feel, and was offered a chance to ask questions, prior to the administration of Fentanyl [facility] ED NOTE HNO ID: [id number] Author: Mee Cordova RN Service: Nursing Author Type: Registered Nurse Type: ED Notes Filed: 07/15/2022 10:42 AM Note Text: Spoke with pt concerning pain medication, I asked him to let me know if he changes his mind about something to help with his pain, pt stated I could change my mind at any moment. Will speak to Dr Thacker concerning pain medication for pt. [facility] ED NOTE HNO ID: [id number] Author: Mee Cordova RN Service: Nursing Author Type: Registered Nurse Type: ED Notes Filed: 07/15/2022 10:15 AM Note Text: Dr Thacker at bedside [facility] ED NOTE HNO ID: [id number] Author: Mee Cordova RN Service: Nursing Author Type: Registered Nurse Type: ED Notes Filed: 07/15/2022 10:14 AM Note Text: Resp at bedside for EKG [facility] ED NOTE HNO ID: [id number] Author: Mee Cordova RN Service: Nursing Author Type: Registered Nurse Type: ED Notes Filed: 07/15/2022 10:09 AM Note Text: Pt arrives from [facility] Urgent care with reports right lateral rib pain. Pt reports on Monday evening he had a coughing fit, and then the next thing I know I am on the ground, so I don't know if I passed out or not. Pt was seen at [facility] on Monday evening with report of just chest xray, they didn't really say anything about the xray. Pt is AOX3, 97% on room air upon arrival to the room. [facility] ED PROV NOTEon 07-15-2022 ED PROV NOTE HNO ID: [id number] Author: Nahum Thacker MD Service: Emergency Medicine Author Type: Physician Type: ED Provider Notes Filed: 07/15/2022 2:04 PM Note Text: ED Provider Note Patient Name: Horace Henderson : 1955 SERVICE DATE: 07/15/22 History Patient presents with: Difficulty Breathing Fall This is a 67-year-old white male that states he took a COVID test on Labor Day because 2 days prior he had been with his son who then was diagnosed with COVID and it came back positive but he was not having much symptoms at that time. He states over the next several days he got a little bit of sinus congestion and he states he has chronic cough from COPD that did not really change much initially. He states then the cough became worse and this past Monday he had an episode where he was coughing really hard and then the next thing I know I am waking up on the ground. He states he must of hit his head and shoulder because the day after that when he went to work he was feeling sore. He states then on Monday when he was coughing he had a severe pain in his right chest wall and he felt a pop. He states he was seen at [facility] emergency department and had an x-ray that night and was discharged. He is continued having the right chest wall pain and went to an urgent care this morning who sent him in to this emergency department. Does not feel much more short of breath than usual but just pain with deep inspiration and without deep inspiration as well as pain worsened with coughing. No anterior chest pressure. No fevers or chills. His sinus congestion is improved. He states that he gets lower extremity edema from time to time this has not significantly worsened. PAST MEDICAL HISTORY Diagnosis Date Achilles tendinitis of both lower extremities 06/23/2020 Arthritis Asthma CAD (coronary artery disease) 01/11/2012 Chronic bronchitis (HCC) 10/07/2013 06/17/2014 EDO311% predicted. COPD (chronic obstructive pulmonary disease) (HCC) DDD (degenerative disc disease), lumbar 12/13/2013 Diverticulitis Perforated HTN (hypertension) 01/11/2012 Hyperlipidemia 08/04/2012 Lumbar disc displacement without myelopathy 04/04/2014 Nodule of lower lobe of left lung (low dose lung CT) 05/05/2021 Perforated diverticulum of large intestine 08/20/2012 S/P CABG x 2 10/14/1995 Status post insertion of drug-eluting stent into right coronary artery for coronary artery disease 09/30/2021 Tobacco use disorder 10/27/2012 PAST SURGICAL HISTORY Procedure Laterality Date ANESTH OPEN/SURG ARTHRS TOTAL KNEE ARTHROPLASTY 10/10/2013 LEFT APPENDEC INDICATED PURPOSE OTH MAJOR PX NOT SPX 08/12/2012 CABG (2) VEIN GRAFTS AND ARTERIAL GRAFT(S 10/14/1996 SVG to diagonal. STEPHENS to LAD. Joseph Vega [facility]. CC CORONARY STENT 09/29/2021 Biotronik 2.5x22 mm to distal RCA, biotronik 3.0 x 30 mm to proximal RCA COLECTOMY PARTIAL W/ANASTOMOSIS 08/12/2012 COLONOSCOPY FLX DX W/COLLJ SPEC WHEN PFRMD 07/12/2012 Colonoscopy COLONOSCOPY FLX DX W/COLLJ SPEC WHEN PFRMD 06/22/2021 CYSTOURETHROSCOPY 2007 Cystoscopy ESOPHAGOGASTRODUODENOSCO PY TRANSORAL DIAGNOSTIC 03/23/2021 ESOPHAGOGASTRODUODENOSCO PY TRANSORAL DIAGNOSTIC 06/22/2021 EYE SURGERY HX PAST SURGICAL HISTORY OF 01/05/2006 stents cardiac x 6, joseph vega, 2 year intervals REVISE MEDIAN N/CARPAL TUNNEL SURG Right 11/19/2020 Right carpal tunnel syndrome REVISE MEDIAN N/CARPAL TUNNEL SURG Left 12/17/2020 Left carpal tunnel release SKIN BIOPSY HX TONSILLECTOMY HX TONSILLECTOMY PRIMARY/SECONDARY Tonsillectomy VASCULAR SURGERY PROCEDURE FAMILY HISTORY Problem Relation Age of Onset None Mother Coronary Artery Disease Father 79 stent placed Hypertension Brother Cancer Maternal Grandfather 70 pancreatic Heart disease Paternal Grandmother Social History Tobacco Use Smoking status: Every Day Packs/day: 0.50 Years: 34.00 Pack years: 17.00 Types: Cigarettes, Pipe Start date: 06/17/1984 Smokeless tobacco: Never Vaping Use Vaping Use: Never used Substance and Sexual Activity Alcohol use: Yes Alcohol/week: 17.6 standard drinks Types: 12 Mixed Drinks, 2 Standard drinks or equivalent per week Comment: 2 mixed drinks per day Drug use: No Frequency: 2.0 times per week Sexual activity: Not on file ALLERGIES Allergen Reactions Levofloxacin Other: See Comments Tachycardia. Achilles tendonitis. Review of Systems All other systems reviewed and are negative. Physical Exam Vitals [07/15/22 1003] BP Pulse Temp Temp src Resp SpO2 Weight Height 154/90 (!) 102 36.8 ?C (98.3 ?F) Temporal 14 (!) 94 % 78.9 kg (174 lb) 1.702 m (5' 7) Physical Exam Vitals and nursing note reviewed. Constitutional: Appearance: He is well-developed. He is not toxic-appearing or diaphoretic. HENT: Head: Normocephalic and atraumatic. Right Ear: Tympanic membrane, ear canal and external ear normal. (more content not included)... Normal [facility] Basophil percentageon 2020 Bilirubin [Mass/Vol] 0.40 mg/dL 0.20-1.00 [facility] Work Phone: Comment on above: For patients on eltr ombopag therapy, use of Dimension [place] TBIL is not recommended. Chloride [Moles/Vol] 101 mmol/L 98-107 [facility] Work Phone: Cholesterol [Mass/Vol] 128 mg/dL <200 [facility] Work Phone: Comment on above: <200 mg/dL Desirable 200-240 mg/dL Borderline >240 mg/dL High Risk Glucose [Mass/Vol] 97 mg/dL 74-106 [facility] Work Phone: Comment on above: Please note revised GLUCOSE reference range effective 2017. Potassium [Moles/Vol] 3.9 mmol/L 3.5-5.1 [facility] Work Phone: Protein [Mass/Vol] 7.1 g/dL 6.4-8.2 [facility] Work Phone: Sodium [Moles/Vol] 139 mmol/L 136-145 [facility] Work Phone: Triglyceride [Mass/Vol] 112 mg/dL [facility] Work Phone: Comment on above: The drugs N-Acetylcy steine and Metamizole may falsely depress this assay.Serum Triglycerides Reference Interval Normal <150 mg/dL Borderline high 150 - 199 mg/dL High 200 - 499 mg/dL Very High > or = 500 mg/dL Direct bilirubinon Bilirubin.direct [Mass/Vol] 0.13 mg/dL 0.00-0.[address] [facility] Work Phone: Laboratory - Chemistry and C hemistry - challengeon 10-07-2021 ALP [Catalytic activity/Vol] 67 U/L 45-[address] [facility] Work Phone: ALT [Catalytic activity/Vol] 27 U/L 16-[address] [facility] Work Phone: CO2 [Moles/Vol] 34.0 mmol/L 21.0-32.[address] [facility] Work Phone: Globulin (S) [Mass/Vol] 3.5 g/dL 2.2-4.2 [facility] Work Phone: Urea nitrogen/Creatinine [Mass ratio] 17.1 mg/mg 10-[address] [facility] Work Phone: No Panel Informationon 10-07 Estimated GFR (MDRD) Amer 85 mL/min >[address] [facility] Work Phone: Comment on above: GFR Calc Estimated GFR (MDRD) Non-Af Amer 70 mL/min >[address] [facility] Work Phone: Comment on above: Non- GFR Calc Serum or plasma albumin jimbo urement (mass/volume)on 10-07-2021 Albumin [Mass/Vol] 3.6 g/dL 3.2-5.0 [facility] Work Phone: Serum or plasma calcium jimbo urement (mass/volume)on 10-07-2021 Calcium [Mass/Vol] 9.5 mg/dL 8.5-10.1 [facility] Work Phone: Serum or plasma cholesterol in HDL measurement (mass/volume)on 10-07-2021 Cholesterol in HDL [Mass/Vol] 58 mg/dL [facility] Work Phone: Comment on above: The drugs N-Acetylcy steine and Metamizole may falsely depress this assay. Reference Range HDL <40 mg/dL Low HDL Cholesterol HDL >or= 60 mg/dL High HDL Cholesterol Serum or plasma cholesterol in VLDL measurement (mass/volume)on 10-07-2021 Cholesterol in VLDL [Mass/Vol] 22 mg/dL 5-[address] [facility] Work Phone: Serum or plasma creatinine m easurement (mass/volume)on 10-07-2021 Creatinine [Mass/Vol] 1.11 mg/dL 0.70-1.30 [facility] Work Phone: Comment on above: The validity of the calculated GFR & GFRAA in patients over 70 years has not been determined. Clinical correlation is essential. Serum or plasma low density lipoprotein (LDL) cholesterol measurement (mass/volume)on 10-07-2021 Cholesterol in LDL [Mass/Vol] 48 mg/dL 0-[address] [facility] Work Phone: Serum or plasma urea nitroge n measurement (mass/volume)on 10-07-2021 Urea nitrogen [Mass/Vol] 19 mg/dL 7-[address] [facility] Work Phone: Thin prep Papanicolaou smear with manual screeningon 10-07-2021 Thin prep Papanicolaou smear with manual screening 17 U/L 15-[address] [facility] Work Phone: Thin prep Papanicolaou smear with manual screening 4 5-[address] [facility] Work Phone: XR Lumbar spine 3 Viewson IMPRESSION: DEGENERATIVE CHANGE, MOST PRONOUNCED IN THE LOWER LUMBAR REGION. University Lecturer: TIMOTEO Transcribe Date/Time: Dec 29 2020 1:59P Dictated by : ASHLEY MARCUS MD This examination was interpreted and the report reviewed and electronically signed by: ASHLEY MARCUS MD on Dec 29 2020 2:09PM [facility] DIVISION OF RADIOLOGY * * *Final Report* * * DATE OF EXAM: Dec 29 2020 1:01PM WOX [id number] - XR LUMBAR 3V AP/LAT/L5-S1 / PROCEDURE REASON: Acute right-sided low back pain without sciatica * * * * Physician Interpretation * * * * Examination: XR LUMBAR 3V AP/LAT/L5-S1 History: Acute right-sided low back pain without sciatica Technique: XR LUMBAR 3V AP/LAT/L5-S1 Comparison: 07/31/2012 RESULT: 5 nonrib-bearing lumbar vertebrae. Moderate L4-5 and L5-S1 disc space narrowing. Mild spondylosis and osteophytosis throughout. Normal lordosis. No fracture or focal bony abnormality. Degenerative change involving the posterior elements from L3 through S1. DIVISION OF RADIOLOGY Provider, Jneni garvey Mcgregor - 12/29/2020 * * *Final Report* * * DATE OF EXAM: Dec 29 2020 1:01PM WOX [id number] - XR LUMBAR 3V AP/LAT/L5-S1 / PROCEDURE REASON: Acute right-sided low back pain without sciatica * * * * Physician Interpretation * * * * Examination: XR LUMBAR 3V AP/LAT/L5-S1 History: Acute right-sided low back pain without sciatica Technique: XR LUMBAR 3V AP/LAT/L5-S1 Comparison: 07/31/2012 RESULT: 5 nonrib-bearing lumbar vertebrae. Moderate L4-5 and L5-S1 disc space narrowing. Mild spondylosis and osteophytosis throughout. Normal lordosis. No fracture or focal bony abnormality. Degenerative change involving the posterior elements from L3 through S1. IMPRESSION IMPRESSION: DEGENERATIVE CHANGE, MOST PRONOUNCED IN THE LOWER LUMBAR REGION. University Lecturer: [facility] Transcribe Date/Time: Dec 29 2020 1:59P Dictated by : ASHLEY MARCUS MD This examination was interpreted and the report reviewed and electronically signed by: ASHLEY MARCUS MD on Dec 29 2020 2:09PM EST [facility] Radiology Study observation (narrative) Dolly hernández [facility] XR Lumbar spine 3 ViewsOrder ed By: [facility] Provider on 12-29-2020 [facility] Influenza virus A and B and SARS-CoV-2 (COVID-19) Ag panel - Upper respiratory specim SARS-CoV-2 (COVID-19) RNA JESSICA+probe Ql (Resp) [facility] Work Phone: Respiratory pathogens DNA an d RNA 12b panel JESSICA+probe (Unsp spec) Respiratory Panel (PCR) Influenza A (Subtype H1) [facility] Work Phone: Vital Signs Date Time Vital Sign Value Performing Clinician Valdemar arreola 05-28-2025 13:37-0400 Diastolic blood pressure 81 mm[Hg] George Vázquez MD Work Phone: [facility] 05-28-2025 13:37-0400 Heart rate 72 /min George Vázquez MD Work Phone: [facility] 05-28-2025 13:37-0400 Systolic blood pressure 157 mm[Hg] George Vázquez MD Work Phone: [facility] 05-28-2025 13:28-0400 Body height 169.2 cm George Vázquez MD Work Phone: [facility] 05-28-2025 13:28-0400 Body mass index (BMI) [Ratio] 27.5 kg/m2 George Vázquez MD Work Phone: [facility] 05-28-2025 13:28-0400 Body weight 78.7 kg George Vázquez MD Work Phone: [facility] 05-05-2025 12:58-0400 Body height 170.[address] George Vázquez MD Work Phone: [facility] 05-05-2025 12:58-0400 Body mass index (BMI) [Ratio] 27.8 kg/m2 Dr. George Vázquez MD Work Phone: 4(357)633-758491 [place] [address] 05-05-2025 12:58-0400 Body weight 80.[address] George Vázquez MD Work Phone: 2(577)594-878391 [place] [address] 05-05-2025 12:58-0400 Diastolic blood pressure 77 mm[Hg] Dr. George Vázquez MD Work Phone: 2(272)099-079791 [place] [address] 05-05-2025 12:58-0400 Heart rate 80 /min Dr. George Vázquez MD Work Phone: 1(270)740-159291 [place] [address] 05-05-2025 12:58-0400 Respiratory rate 16 /min Dr. George Vázquez MD Work Phone: 1(190)464-226991 [place] [address] 05-05-2025 12:58-0400 Systolic blood pressure 135 mm[Hg] Dr. George Vázquez MD Work Phone: 1(982)669-226791 [place] [address] 01-20-2025 14:53-0400 Body height 170.[address] George Váqzuez MD Work Phone: [facility] 01-20-2025 07:32-0400 Body mass index (BMI) [Ratio] 27.8 kg/m2 Dr. George Vázquez MD Work Phone: [facility] 01-20-2025 07:32-0400 Body weight 80.[address] George Vázquez MD Work Phone: [facility] 01-20-2025 07:32-0400 Diastolic blood pressure 79 mm[Hg] Dr. George Vázquez MD Work Phone: [facility] 01-20-2025 07:32-0400 Heart rate 82 /min Dr. George Vázquez MD Work Phone: [facility] 01-20-2025 07:32-0400 Respiratory rate 18 /min Dr. George Vázquez MD Work Phone: [facility] 01-20-2025 07:32-0400 SaO2% (BldA) [Mass fraction] 94 % Dr. George Vázquez MD Work Phone: [facility] 01-20-2025 07:32-0400 Systolic blood pressure 121 mm[Hg] Dr. George Vázquez MD Work Phone: [facility] 01-08-2025 15:27-0400 Body mass index (BMI) [Ratio] 27.45 kg/m2 George Vázquez MD Work Phone: [facility] 01-08-2025 15:27-0400 Body temperature 97.9 [degF] George Vázquez MD Work Phone: [facility] 01-08-2025 15:27-0400 Body weight 79.5 kg George Vázquez MD Work Phone: [facility] 01-08-2025 15:27-0400 Diastolic blood pressure 78 mm[Hg] George Vázquez MD Work Phone: [facility] 01-08-2025 15:27-0400 Heart rate 110 /min George Vázquez MD Work Phone: [facility] 01-08-2025 15:27-0400 Respiratory rate 20 /min George Vázquez MD Work Phone: [facility] 01-08-2025 15:27-0400 Systolic blood pressure 130 mm[Hg] George Vázquez MD Work Phone: [facility] 01-08-2025 10:51-0400 Body height 170.[address] George Vázquez MD Work Phone: [facility] 01-08-2025 10:43-0400 Diastolic blood pressure 89 mm[Hg] Dr. George Vázquez MD Work Phone: [facility] 01-08-2025 10:43-0400 Heart rate 70 /min Dr. George Vázquez MD Work Phone: 1(663)988-750491 [place] [address] 01-08-2025 10:43-0400 Respiratory rate 20 /min Dr. George Vázquez MD Work Phone: [facility] 01-08-2025 10:43-0400 Systolic blood pressure 159 mm[Hg] Dr. George Vázquez MD Work Phone: [facility] 11-06-2024 10:49-0500 Body weight 81.[address] George Vázquez MD Work Phone: [facility] 11-06-2024 10:49-0500 Heart rate 97 /min Dr. George Vázquez MD Work Phone: [facility] 11-06-2024 10:49-0500 SaO2% (BldA) [Mass fraction] 95 % Dr. George Vázquez MD Work Phone: [facility] 11-05-2024 13:04-0500 Body weight [address] George Vázquez MD Work Phone: [facility] 11-05-2024 13:04-0500 Diastolic blood pressure 81 mm[Hg] Dr. George Vázquez MD Work Phone: 5(604)896-236014 [place] [address] 11-05-2024 13:04-0500 Heart rate 119 /min Dr. George Vázquez MD Work Phone: 2(807)577-522214 [place] [address] 11-05-2024 13:04-0500 Respiratory rate 18 /min Dr. George Vázquez MD Work Phone: 5(908)693-394114 [place] [address] 11-05-2024 13:04-0500 SaO2% (BldA) [Mass fraction] 91 % Dr. George Vázquez MD Work Phone: 4(181)583-476214 [place] [address] 11-05-2024 13:04-0500 Systolic blood pressure 121 mm[Hg] Dr. George Vázquez MD Work Phone: 6(909)799-646914 [place] [address] 10-28-2024 16:00-0500 Heart rate 90 /min Dr. George Vázquez MD Work Phone: 6(600)342-997014 [place] [address] 10-28-2024 16:00-0500 Respiratory rate 18 /min Dr. George Vázquez MD Work Phone: 3(069)168-422914 [place] [address] 10-28-2024 14:00-0500 Body temperature 98.1 [degF] Dr. George Vázquez MD Work Phone: 4(244)220-986514 [place] [address] 10-28-2024 14:00-0500 Diastolic blood pressure 80 mm[Hg] Dr. George Vázquez MD Work Phone: 3(105)782-857114 [place] [address] 10-28-2024 14:00-0500 SaO2% (BldA) [Mass fraction] 93 % Dr. George Vázquez MD Work Phone: 5(971)608-057114 [place] [address] 10-28-2024 14:00-0500 Systolic blood pressure 120 mm[Hg] Dr. George Vázquez MD Work Phone: 6(923)202-231314 [place] [address] 10-28-2024 03:40-0500 Inhaled oxygen flow rate 2 L/min Dr. George Vázquez MD Work Phone: 8(009)592-173114 [place] [address] 10-27-2024 16:50-0500 Body mass index (BMI) [Ratio] 27.9 kg/m2 Dr. George Vázquez MD Work Phone: 0(010)538-689136 [place] [address] 10-27-2024 16:50-0500 Body weight [address] George Vázquez MD Work Phone: 1(166)098-196791 [place] [address] 09-17-2024 19:48-0500 Body temperature 98.2 [degF] Dr. George Vázquez MD Work Phone: 0(035)678-672414 [place] [address] 09-17-2024 19:48-0500 Diastolic blood pressure 74 mm[Hg] Dr. George Vázquez MD Work Phone: 9(544)946-018714 [place] [address] 09-17-2024 19:48-0500 Heart rate 78 /min Dr. George Vázquez MD Work Phone: 7(955)095-257514 [place] [address] 09-17-2024 19:48-0500 Respiratory rate 16 /min Dr. George Vázquez MD Work Phone: 3(095)518-829714 [place] [address] 09-17-2024 19:48-0500 SaO2% (BldA) [Mass fraction] 99 % Dr. George Vázquez MD Work Phone: 8(124)363-744591 [place] [address] 09-17-2024 19:48-0500 Systolic blood pressure 124 mm[Hg] Dr. George Vázquez MD Work Phone: 6(699)775-075391 [place] [address] 09-17-2024 15:53-0500 Body mass index (BMI) [Ratio] 28 kg/m2 Dr. George Vázquez MD Work Phone: 3(830)208-984636 [place] [address] 09-17-2024 15:53-0500 Body weight 81.[address] George Vázquez MD Work Phone: [facility] 09-12-2024 16:01-0500 Body mass index (BMI) [Ratio] 28.38 kg/m2 George Vázquez MD Work Phone: [facility] 09-12-2024 16:01-0500 Body temperature 98.91 [degF] George Vázquez MD Work Phone: [facility] 09-12-2024 16:01-0500 Body weight 82.2 kg George Vázquez MD Work Phone: [facility] 09-12-2024 16:01-0500 Diastolic blood pressure 84 mm[Hg] George Vázquez MD Work Phone: [facility] 09-12-2024 16:01-0500 Heart rate 130 /min George Vázquez MD Work Phone: [facility] 09-12-2024 16:01-0500 Respiratory rate 28 /min George Vázquez MD Work Phone: [facility] 09-12-2024 16:01-0500 SaO2% (BldA) [Mass fraction] 95 % George Vázquez MD Work Phone: [facility] 09-12-2024 16:01-0500 Systolic blood pressure 134 mm[Hg] George Vázquez MD Work Phone: [facility] 09-04-2024 15:37-0500 Body mass index (BMI) [Ratio] 28.62 kg/m2 George Vázquez MD Work Phone: [facility] 09-04-2024 15:37-0500 Body temperature 98.8 [degF] George Vázquez MD Work Phone: [facility] 09-04-2024 15:37-0500 Body weight 82.9 kg George Vázquez MD Work Phone: [facility] 09-04-2024 15:37-0500 Diastolic blood pressure 74 mm[Hg] George Vázquez MD Work Phone: [facility] 09-04-2024 15:37-0500 Heart rate 96 /min George Vázquez MD Work Phone: [facility] 09-04-2024 15:37-0500 Respiratory rate 20 /min George Vázquez MD Work Phone: [facility] 09-04-2024 15:37-0500 SaO2% (BldA) [Mass fraction] 91 % George Vázquez MD Work Phone: [facility] 09-04-2024 15:37-0500 Systolic blood pressure 128 mm[Hg] George Vázquez MD Work Phone: [facility] 08-30-2024 10:38-0400 Body mass index (BMI) [Ratio] 28.31 kg/m2 Prateek Matos APRN.WIRE DRAWING SETTER Work Phone: [facility] 08-30-2024 10:38-0400 Body temperature 97.81 [degF] Prateek Matos LICENSED NUCLEAR CONTROL ROOM OPERATOR.WIRE DRAWING SETTER Work Phone: [facility] 08-30-2024 10:38-0400 Body weight 82 kg Prateek Matos APRN.WIRE DRAWING SETTER Work Phone: [facility] 08-30-2024 10:38-0400 Diastolic blood pressure 78 mm[Hg] Prateek Matos LICENSED NUCLEAR CONTROL ROOM OPERATOR.WIRE DRAWING SETTER Work Phone: [facility] 08-30-2024 10:38-0400 Heart rate 106 /min Prateek Matos APRN.WIRE DRAWING SETTER Work Phone: [facility] 08-30-2024 10:38-0400 Respiratory rate 24 /min Prateek Matos APRN.WIRE DRAWING SETTER Work Phone: [facility] 08-30-2024 10:38-0400 SaO2% (BldA) [Mass fraction] 94 % Prateek Matos APRN.WIRE DRAWING SETTER Work Phone: [facility] 08-30-2024 10:38-0400 Systolic blood pressure 130 mm[Hg] Prateek Matos APRN.WIRE DRAWING SETTER Work Phone: [facility] 08-25-2024 10:06-0400 Body mass index (BMI) [Ratio] 27.62 kg/m2 Matilda Main APRN.WIRE DRAWING SETTER Work Phone: [facility] 08-25-2024 10:06-0400 Body temperature 97.39 [degF] Matilda Main APRN.WIRE DRAWING SETTER Work Phone: [facility] 08-25-2024 10:06-0400 Body weight 80 kg Matilda Main APRN.WIRE DRAWING SETTER Work Phone: [facility] 08-25-2024 10:06-0400 Diastolic blood pressure 78 mm[Hg] Matilda Main APRN.WIRE DRAWING SETTER Work Phone: [facility] 08-25-2024 10:06-0400 Heart rate 83 /min Matilda Main APRN.WIRE DRAWING SETTER Work Phone: [facility] 08-25-2024 10:06-0400 Respiratory rate 24 /min Matilda Main APRN.WIRE DRAWING SETTER Work Phone: [facility] 08-25-2024 10:06-0400 SaO2% (BldA) [Mass fraction] 94 % Matilda Main APRN.WIRE DRAWING SETTER Work Phone: [facility] 08-25-2024 10:06-0400 Systolic blood pressure 138 mm[Hg] Matilda Main APRN.WIRE DRAWING SETTER Work Phone: [facility] 08-12-2024 08:52-0400 Body mass index (BMI) [Ratio] 27.69 kg/m2 Blanca Tilley LICENSED NUCLEAR CONTROL ROOM OPERATOR.WIRE DRAWING SETTER Work Phone: [facility] 08-12-2024 08:52-0400 Body weight 80.2 kg Blanca Tilley LICENSED NUCLEAR CONTROL ROOM OPERATOR.WIRE DRAWING SETTER Work Phone: [facility] 08-12-2024 08:52-0400 Diastolic blood pressure 82 mm[Hg] Blanca MyersAlban LICENSED NUCLEAR CONTROL ROOM OPERATOR.WIRE DRAWING SETTER Work Phone: [facility] 08-12-2024 08:52-0400 Heart rate 91 /min Blanca MyersAlban LICENSED NUCLEAR CONTROL ROOM OPERATOR.WIRE DRAWING SETTER Work Phone: [facility] 08-12-2024 08:52-0400 Respiratory rate 20 /min Blanca Alban LICENSED NUCLEAR CONTROL ROOM OPERATOR.WIRE DRAWING SETTER Work Phone: [facility] 08-12-2024 08:52-0400 Systolic blood pressure 125 mm[Hg] Blanca Tilley APRN.CNP Work Phone: [facility] 05-27-2024 12:02-0400 Body height 170.2 cm George Vázquez MD Work Phone: [facility] 05-27-2024 12:02-0400 Body mass index (BMI) [Ratio] 27.88 kg/m2 George Vázquez MD Work Phone: [facility] 05-27-2024 12:02-0400 Body temperature 98.6 [degF] George Vázquez MD Work Phone: [facility] 05-27-2024 12:02-0400 Body weight 80.74 kg George Vázquez MD Work Phone: [facility] 05-27-2024 12:02-0400 Diastolic blood pressure 72 mm[Hg] George Vázquez MD Work Phone: [facility] 05-27-2024 12:02-0400 Heart rate 80 /min George Vázquez MD Work Phone: [facility] 05-27-2024 12:02-0400 Respiratory rate 18 /min George Vázquez MD Work Phone: [facility] 05-27-2024 12:02-0400 Systolic blood pressure 116 mm[Hg] George Vázquez MD Work Phone: [facility] 11-23-2023 06:36-0500 Body height 170.[address] George Vázquez Work Phone: [facility] 11-23-2023 06:36-0500 Body mass index (BMI) [Ratio] 27.3 kg/m2 Dr. George Vázquez Work Phone: [facility] 11-23-2023 06:36-0500 Body temperature 97.4 [degF] Dr. George Vázquez Work Phone: [facility] 11-23-2023 06:36-0500 Body weight 79.[address] George Vázquez Work Phone: 4(567)305-073691 [place] [address] 11-23-2023 06:36-0500 Diastolic blood pressure 81 mm[Hg] Dr. George Vázquez Work Phone: 5(336)025-585214 [place] [address] 11-23-2023 06:36-0500 Heart rate 106 /min Dr. George Vázquez Work Phone: 5(374)129-552314 [place] [address] 11-23-2023 06:36-0500 Respiratory rate 20 /min Dr. George Vázquez Work Phone: 3(785)373-052214 [place] [address] 11-23-2023 06:36-0500 SaO2% (BldA) [Mass fraction] 93 % Dr. George Vázquez Work Phone: 3(426)156-783714 [place] [address] 11-23-2023 06:36-0500 Systolic blood pressure 128 mm[Hg] Dr. George Vázquez Work Phone: 2(909)863-605114 [place] [address] 11-10-2023 09:48-0500 Body mass index (BMI) [Ratio] 27.2 kg/m2 Dr. George Vázquez Work Phone: 8(809)557-672514 [place] [address] 11-10-2023 09:48-0500 Body weight 78.[address] George Vázquez Work Phone: 8(871)931-490214 [place] [address] 11-10-2023 09:48-0500 Diastolic blood pressure 81 mm[Hg] Dr. George Vázquez Work Phone: 2(757)004-449414 [place] [address] 11-10-2023 09:48-0500 Heart rate 94 /min Dr. George Vázquez Work Phone: 0(525)637-178114 [place] [address] 11-10-2023 09:48-0500 Respiratory rate 18 /min Dr. George Vázquez Work Phone: 0(389)096-548914 [place] [address] 11-10-2023 09:48-0500 Systolic blood pressure 117 mm[Hg] Dr. George Vázquez Work Phone: 9(879)474-800214 [place] [address] 08-07-2023 10:03-0400 Body height 170.[address] George Vázquez Work Phone: 9(763)311-655691 [place] [address] 08-07-2023 10:03-0400 Body mass index (BMI) [Ratio] 27.1 kg/m2 Dr. George Vázquez Work Phone: 8(712)635-535014 [place] [address] 08-07-2023 10:03-0400 Body weight 78.[address] George Vázquez Work Phone: 7(592)365-419314 [place] [address] 08-07-2023 10:03-0400 Diastolic blood pressure 67 mm[Hg] Dr. George Vázquez Work Phone: 6(997)299-958614 [place] [address] 08-07-2023 10:03-0400 Heart rate 98 /min Dr. George Vázquez Work Phone: 0(732)932-073614 [place] [address] 08-07-2023 10:03-0400 Respiratory rate 20 /min Dr. George Vázquez Work Phone: 3(690)920-543714 [place] [address] 08-07-2023 10:03-0400 SaO2% (BldA) [Mass fraction] 94 % Dr. George Vázquez Work Phone: 6(103)509-161014 [place] [address] 08-07-2023 10:03-0400 Systolic blood pressure 107 mm[Hg] Dr. George Vázquez Work Phone: 2(712)706-772314 [place] [address] 07-28-2023 08:23-0400 Body mass index (BMI) [Ratio] 27.3 kg/m2 Dr. George Vázquez Work Phone: 4(705)252-927214 [place] [address] 07-28-2023 08:23-0400 Body temperature 97.4 [degF] Dr. George Vázquez Work Phone: 6(377)193-958614 [place] [address] 07-28-2023 08:23-0400 Body weight 79.[address] George Vázquez Work Phone: 0(049)271-493714 [place] [address] 07-28-2023 08:23-0400 Diastolic blood pressure 87 mm[Hg] Dr. George Vázquez Work Phone: 6(244)027-811614 [place] [address] 07-28-2023 08:23-0400 Heart rate 80 /min Dr. George Vázquez Work Phone: 3(209)618-498391 [place] [address] 07-28-2023 08:23-0400 Respiratory rate 18 /min Dr. George Vázquez Work Phone: 5(838)220-957214 [place] [address] 07-28-2023 08:23-0400 SaO2% (BldA) [Mass fraction] 94 % Dr. George Vázquez Work Phone: 2(253)540-500191 [place] [address] 07-28-2023 08:23-0400 Systolic blood pressure 143 mm[Hg] Dr. George Vázquez Work Phone: 0(516)582-287714 [place] [address] 07-21-2023 10:53-0400 Body temperature 98.7 [degF] Dr. George Vázquez Work Phone: 6(562)797-828014 [place] [address] 07-21-2023 10:53-0400 Diastolic blood pressure 76 mm[Hg] Dr. George Vázquez Work Phone: 8(818)797-579014 [place] [address] 07-21-2023 10:53-0400 Heart rate 78 /min Dr. George Vázquez Work Phone: 0(020)433-499014 [place] [address] 07-21-2023 10:53-0400 SaO2% (BldA) [Mass fraction] 95 % Dr. George Vázquez Work Phone: 4(161)081-596314 [place] [address] 07-21-2023 10:53-0400 Systolic blood pressure 125 mm[Hg] Dr. George Vázquez Work Phone: 7(330)537-410114 [place] [address] 06-19-2023 14:23-0400 Body mass index (BMI) [Ratio] 27.3 kg/m2 Dr. George Vázquez Work Phone: 8(078)582-636114 [place] [address] 06-19-2023 14:23-0400 Body weight 79.[address] George Vázquez Work Phone: 6(315)916-055814 [place] [address] 06-19-2023 14:23-0400 Diastolic blood pressure 70 mm[Hg] Dr. George Vázquez Work Phone: 3(565)863-344191 [place] [address] 06-19-2023 14:23-0400 Heart rate 91 /min Dr. George Vázquez Work Phone: [facility] 06-19-2023 14:23-0400 Respiratory rate 18 /min Dr. George Vázquez Work Phone: [facility] 06-19-2023 14:23-0400 SaO2% (BldA) [Mass fraction] 94 % Dr. George Vázquez Work Phone: [facility] 06-19-2023 14:23-0400 Systolic blood pressure 104 mm[Hg] Dr. George Vázquez Work Phone: [facility] 05-24-2023 14:57-0400 Body height 169.2 cm George Vázquez MD Work Phone: [facility] 05-24-2023 14:57-0400 Body weight 78.93 kg George Vázquez MD Work Phone: [facility] 05-24-2023 14:57-0400 Diastolic blood pressure 64 mm[Hg] George Vázquez MD Work Phone: [facility] 05-24-2023 14:57-0400 Heart rate 96 /min George Vázquez MD Work Phone: [facility] 05-24-2023 14:57-0400 Respiratory rate 18 /min George Vázquez MD Work Phone: [facility] 05-24-2023 14:57-0400 SaO2% (BldA) [Mass fraction] 94 % George Vázquez MD Work Phone: [facility] 05-24-2023 14:57-0400 Systolic blood pressure 100 mm[Hg] George Vázquez MD Work Phone: [facility] 04-11-2023 13:02-0400 Body height 170.[address] George Vázquez Work Phone: [facility] 04-11-2023 13:02-0400 Body mass index (BMI) [Ratio] 26.6 kg/m2 Dr. George Vázquez Work Phone: 5(598)014-899691 [place] [address] 04-11-2023 13:02-0400 Body temperature 97.6 [degF] Dr. George Vázquez Work Phone: 4(434)404-517914 [place] [address] 04-11-2023 13:02-0400 Body weight 77.[address] George Vázquez Work Phone: 1(774)224-536614 [place] [address] 04-11-2023 13:02-0400 Diastolic blood pressure 64 mm[Hg] Dr. George Vázquez Work Phone: 7(517)187-302414 [place] [address] 04-11-2023 13:02-0400 Heart rate 85 /min Dr. George Vázquez Work Phone: 6(964)046-694914 [place] [address] 04-11-2023 13:02-0400 Respiratory rate 18 /min Dr. George Vázquez Work Phone: 5(970)108-298014 [place] [address] 04-11-2023 13:02-0400 SaO2% (BldA) [Mass fraction] 96 % Dr. George Vázquez Work Phone: 2(258)806-063414 [place] [address] 04-11-2023 13:02-0400 Systolic blood pressure 99 mm[Hg] Dr. George Vázquez Work Phone: 3(895)705-904914 [place] [address] 04-11-2023 09:20-0400 Body mass index (BMI) [Ratio] 26.9 kg/m2 Dr. George Vázquez Work Phone: 1(514)088-831514 [place] [address] 04-11-2023 09:20-0400 Body weight 78.[address] George Vázquez Work Phone: 2(189)138-980114 [place] [address] 04-11-2023 09:20-0400 Diastolic blood pressure 57 mm[Hg] Dr. George Vázquez Work Phone: 7(763)037-757414 [place] [address] 04-11-2023 09:20-0400 Heart rate 82 /min Dr. George Vázquez Work Phone: 2(607)967-346091 [place] [address] 04-11-2023 09:20-0400 Respiratory rate 18 /min Dr. George Vázquez Work Phone: 7(650)145-140914 [place] [address] 04-11-2023 09:20-0400 Systolic blood pressure 129 mm[Hg] Dr. George Vázquez Work Phone: 9(111)008-003914 [place] [address] 03-17-2023 17:08-0400 Diastolic blood pressure 83 mm[Hg] Dr. George Vázquez Work Phone: 3(529)259-983014 [place] [address] 03-17-2023 17:08-0400 Heart rate 76 /min Dr. George Vázquez Work Phone: 3(759)685-808014 [place] [address] 03-17-2023 17:08-0400 Respiratory rate 14 /min Dr. George Vázquez Work Phone: 0(961)338-370114 [place] [address] 03-17-2023 17:08-0400 SaO2% (BldA) [Mass fraction] 96 % Dr. George Vázquez Work Phone: 8(247)785-917514 [place] [address] 03-17-2023 17:08-0400 Systolic blood pressure 138 mm[Hg] Dr. George Vázquez Work Phone: 8(091)359-705014 [place] [address] 03-17-2023 15:33-0400 Body height 170.[address] George Vázquez Work Phone: 7(930)752-951114 [place] [address] 03-17-2023 15:33-0400 Body temperature 98 [degF] Dr. George Vázquez Work Phone: 1(809)925-323214 [place] [address] 03-17-2023 14:51-0400 Body mass index (BMI) [Ratio] 27.6 kg/m2 Dr. George Vázquez Work Phone: 1(872)606-866514 [place] [address] 03-17-2023 14:51-0400 Body temperature 97.6 [degF] Dr. George Vázquez Work Phone: 8(728)374-341714 [place] [address] 03-17-2023 14:51-0400 Body weight 79.[address] George Vázquez Work Phone: 6(321)951-847814 [place] [address] 03-17-2023 14:51-0400 Diastolic blood pressure 93 mm[Hg] Dr. George Vázquez Work Phone: 0(452)994-968514 [place] [address] 03-17-2023 14:51-0400 Heart rate 108 /min Dr. George Vázquez Work Phone: 6(977)075-522414 [place] [address] 03-17-2023 14:51-0400 Respiratory rate 18 /min Dr. George Vázquez Work Phone: 0(904)863-411414 [place] [address] 03-17-2023 14:51-0400 SaO2% (BldA) [Mass fraction] 95 % Dr. George Vázquez Work Phone: 5(347)776-123414 [place] [address] 03-17-2023 14:51-0400 Systolic blood pressure 137 mm[Hg] Dr. George Vázquez Work Phone: 5(273)767-598014 [place] [address] 02-03-2023 08:24-0400 Body height 170.[address] George Vázquez Work Phone: 5(567)807-219514 [place] [address] 02-03-2023 08:24-0400 Body mass index (BMI) [Ratio] 27.3 kg/m2 Dr. George Vázquez Work Phone: 5(342)454-060714 [place] [address] 02-03-2023 08:24-0400 Body temperature 97.6 [degF] Dr. George Vázquez Work Phone: 7(758)049-801014 [place] [address] 02-03-2023 08:24-0400 Body weight 79.[address] George Vázquez Work Phone: 6(606)434-113514 [place] [address] 02-03-2023 08:24-0400 Diastolic blood pressure 69 mm[Hg] Dr. George Vázquez Work Phone: 0(193)638-940114 [place] [address] 02-03-2023 08:24-0400 Heart rate 96 /min Dr. George Vázquez Work Phone: 2(445)377-443014 [place] [address] 02-03-2023 08:24-0400 Respiratory rate 16 /min Dr. George Vázquez Work Phone: 9(505)805-598514 [place] [address] 02-03-2023 08:24-0400 SaO2% (BldA) [Mass fraction] 95 % Dr. George Vázquez Work Phone: [facility] 02-03-2023 08:24-0400 Systolic blood pressure 121 mm[Hg] Dr. George Vázquez Work Phone: [facility] 01-18-2023 15:55-0400 Diastolic blood pressure 95 mm[Hg] George Vázquez MD Work Phone: [facility] 01-18-2023 15:55-0400 Heart rate 81 /min George Vázquez MD Work Phone: [facility] 01-18-2023 15:55-0400 Systolic blood pressure 162 mm[Hg] George Vázquez MD Work Phone: [facility] 01-18-2023 15:45-0400 Body weight 81.65 kg George Vázquez MD Work Phone: [facility] 01-18-2023 15:45-0400 Respiratory rate 16 /min George Vázquez MD Work Phone: [facility] 01-18-2023 15:45-0400 SaO2% (BldA) [Mass fraction] 95 % George Vázquez MD Work Phone: [facility] 01-13-2023 14:44-0400 Body mass index (BMI) [Ratio] 28 kg/m2 Dr. George Vázquez Work Phone: [facility] 01-13-2023 14:44-0400 Body weight 81.[address] Georeg Vázquez Work Phone: [facility] 01-13-2023 14:44-0400 Diastolic blood pressure 89 mm[Hg] Dr. George Vázquez Work Phone: [facility] 01-13-2023 14:44-0400 Heart rate 88 /min Dr. George Vázquez Work Phone: [facility] 01-13-2023 14:44-0400 SaO2% (BldA) [Mass fraction] 94 % Dr. George Vázquez Work Phone: 9(446)872-842714 [place] [address] 01-13-2023 14:44-0400 Systolic blood pressure 136 mm[Hg] Dr. George Vázquez Work Phone: 0(166)124-087714 [place] [address] 12-28-2022 08:45-0500 Body temperature 98.5 [degF] Dr. George Vázquez Work Phone: 2(617)065-074614 [place] [address] 12-28-2022 08:45-0500 Diastolic blood pressure 85 mm[Hg] Dr. George Vázquez Work Phone: 1(136)276-212014 [place] [address] 12-28-2022 08:45-0500 Heart rate 87 /min Dr. George Vázquez Work Phone: 9(650)242-442814 [place] [address] 12-28-2022 08:45-0500 Respiratory rate 16 /min Dr. George Vázquez Work Phone: 1(397)169-135214 [place] [address] 12-28-2022 08:45-0500 SaO2% (BldA) [Mass fraction] 95 % Dr. George Vázquez Work Phone: 9(813)858-696414 [place] [address] 12-28-2022 08:45-0500 Systolic blood pressure 131 mm[Hg] Dr. George Vázquez Work Phone: 4(553)216-603814 [place] [address] 12-28-2022 07:05-0500 Body mass index (BMI) [Ratio] 27.7 kg/m2 Dr. George Vázquez Work Phone: 5(875)373-593014 [place] [address] 12-28-2022 07:05-0500 Body weight 80.[address] George Vázquez Work Phone: 6(558)305-266814 [place] [address] 12-22-2022 15:01-0500 Body mass index (BMI) [Ratio] 26.9 kg/m2 Dr. George Vázquez Work Phone: 2(187)478-627614 [place] [address] 12-22-2022 15:01-0500 Body weight 78.[address] George Vázquez Work Phone: 4(692)731-396814 [place] [address] 12-22-2022 15:01-0500 Diastolic blood pressure 60 mm[Hg] Dr. George Vázquez Work Phone: 9(788)695-034114 [place] [address] 12-22-2022 15:01-0500 Heart rate 88 /min Dr. George Vázquez Work Phone: 9(791)100-769714 [place] [address] 12-22-2022 15:01-0500 Respiratory rate 16 /min Dr. George Vázquez Work Phone: 6(355)884-590214 [place] [address] 12-22-2022 15:01-0500 Systolic blood pressure 102 mm[Hg] Dr. George Vázquez Work Phone: 0(660)434-445814 [place] [address] 12-02-2022 16:45-0500 Body temperature 97.8 [degF] Dr. George Vázquez Work Phone: 3(900)223-144114 [place] [address] 12-02-2022 16:45-0500 Diastolic blood pressure 81 mm[Hg] Dr. George Vázquez Work Phone: 5(501)803-011414 [place] [address] 12-02-2022 16:45-0500 Heart rate 88 /min Dr. George Vázquez Work Phone: 6(946)729-387514 [place] [address] 12-02-2022 16:45-0500 Respiratory rate 16 /min Dr. George Vázquez Work Phone: 1(151)697-393814 [place] [address] 12-02-2022 16:45-0500 SaO2% (BldA) [Mass fraction] 91 % Dr. George Vázquez Work Phone: 2(169)911-538614 [place] [address] 12-02-2022 16:45-0500 Systolic blood pressure 114 mm[Hg] Dr. George Vázquez Work Phone: 7(213)445-949014 [place] [address] 12-02-2022 15:44-0500 Inhaled oxygen flow rate 2 L/min Dr. George Vázquez Work Phone: 2(696)463-516414 [place] [address] 12-02-2022 10:41-0500 Body height 170.[address] George Vázquez Work Phone: 2(671)994-020214 [place] [address] 12-02-2022 10:41-0500 Body mass index (BMI) [Ratio] 27.2 kg/m2 Dr. George Vázquez Work Phone: [facility] 12-02-2022 10:41-0500 Body weight [address] George Vázquez Work Phone: [facility] 12-01-2022 07:56-0500 Body mass index (BMI) [Ratio] 27.7 kg/m2 Dr. George Vázquez Work Phone: [facility] 12-01-2022 07:56-0500 Body temperature 97.4 [degF] Dr. George Vázquez Work Phone: 8(020)359-699091 [place] [address] 12-01-2022 07:56-0500 Body weight 80.[address] George Vázquez Work Phone: 4(013)931-336214 [place] [address] 12-01-2022 07:56-0500 Diastolic blood pressure 72 mm[Hg] Dr. George Vázquez Work Phone: 6(611)537-399991 [place] [address] 12-01-2022 07:56-0500 Heart rate 83 /min Dr. George Vázquez Work Phone: 5(430)089-102191 [place] [address] 12-01-2022 07:56-0500 Respiratory rate 17 /min Dr. George Vázquez Work Phone: 7(965)382-823191 [place] [address] 12-01-2022 07:56-0500 SaO2% (BldA) [Mass fraction] 93 % Dr. George Vázquez Work Phone: [facility] 12-01-2022 07:56-0500 Systolic blood pressure 127 mm[Hg] Dr. George Vázquez Work Phone: [facility] 11-22-2022 14:20-0500 Body temperature 98.91 [degF] Kelly Leal PA Work Phone: [facility] 11-22-2022 14:20-0500 Diastolic blood pressure 76 mm[Hg] Krislyn Aberegg PA Work Phone: [facility] 11-22-2022 14:20-0500 Heart rate 94 /min Krislyn Aberegg PA Work Phone: [facility] 11-22-2022 14:20-0500 Respiratory rate 18 /min Krislyn Aberegg PA Work Phone: [facility] 11-22-2022 14:20-0500 SaO2% (BldA) [Mass fraction] 96 % Krislyn Aberegg PA Work Phone: [facility] 11-22-2022 14:20-0500 Systolic blood pressure 134 mm[Hg] Krislyn Aberegg PA Work Phone: [facility] 11-15-2022 08:59-0500 Body mass index (BMI) [Ratio] 26.6 kg/m2 Dr. George Vázquez Work Phone: [facility] 11-15-2022 08:59-0500 Body temperature 97.8 [degF] Dr. George Vázquez Work Phone: 3(877)216-695091 [place] [address] 11-15-2022 08:59-0500 Body weight 77.[address] George Vázquez Work Phone: [facility] 11-15-2022 08:59-0500 Diastolic blood pressure 89 mm[Hg] Dr. George Vázquez Work Phone: 3(018)478-024591 [place] [address] 11-15-2022 08:59-0500 Heart rate 84 /min Dr. George Vázquez Work Phone: [facility] 11-15-2022 08:59-0500 Respiratory rate 18 /min Dr. George Vázquez Work Phone: [facility] 11-15-2022 08:59-0500 SaO2% (BldA) [Mass fraction] 94 % Dr. George Vázquez Work Phone: 0(164)546-644191 [place] [address] 11-15-2022 08:59-0500 Systolic blood pressure 126 mm[Hg] Dr. George Vázquez Work Phone: 9(358)122-240891 [place] [address] 10-30-2022 11:22-0500 Heart rate 81 /min Dr. George Vázquez Work Phone: 0(418)400-486314 [place] [address] 10-30-2022 11:22-0500 Respiratory rate 19 /min Dr. George Vázuqez Work Phone: 6(368)677-796114 [place] [address] 10-30-2022 10:00-0500 Body temperature 97.8 [degF] Dr. George Vázquez Work Phone: 7(624)111-180614 [place] [address] 10-30-2022 10:00-0500 Diastolic blood pressure 72 mm[Hg] Dr. George Vázquez Work Phone: 0(729)550-191314 [place] [address] 10-30-2022 10:00-0500 Inhaled oxygen flow rate 2 L/min Dr. George Vázquez Work Phone: 3(432)706-384414 [place] [address] 10-30-2022 10:00-0500 SaO2% (BldA) [Mass fraction] 93 % Dr. George Vázquez Work Phone: 2(579)475-209414 [place] [address] 10-30-2022 10:00-0500 Systolic blood pressure 119 mm[Hg] Dr. George Vázquez Work Phone: 9(556)584-437114 [place] [address] 10-30-2022 06:00-0500 Body weight 78.[address] George Vázquez Work Phone: 9(681)816-100814 [place] [address] 10-28-2022 05:01-0500 Body mass index (BMI) [Ratio] 26.6 kg/m2 Dr. George Vázquez Work Phone: 7(226)855-232814 [place] [address] 10-28-2022 03:44-0500 Body temperature 98.6 [degF] Dr. George Vázquez Work Phone: 1(614)979-727114 [place] [address] Work Phone: 10-28-2022 03:44-0500 Diastolic blood pressure 99 mm[Hg] Dr. George Vázquez Work Phone: 5(693)777-675391 [place] [address] Work Phone: 10-28-2022 03:44-0500 Heart rate 120 /min Dr. George Vázquez Work Phone: [facility] Work Phone: 10-28-2022 03:44-0500 Inhaled oxygen flow rate 2 L/min Dr. George Vázquez Work Phone: [facility] Work Phone: 10-28-2022 03:44-0500 Respiratory rate 25 /min Dr. George Vázquez Work Phone: [facility] Work Phone: 10-28-2022 03:44-0500 SaO2% (BldA) [Mass fraction] 95 % Dr. George Vázquez Work Phone: [facility] Work Phone: 10-28-2022 03:44-0500 Systolic blood pressure 138 mm[Hg] Dr. George Vázquez Work Phone: [facility] Work Phone: 10-28-2022 02:41-0500 Body height 170.[address] George Vázquez Work Phone: [facility] Work Phone: 10-28-2022 02:41-0500 Body mass index (BMI) [Ratio] 26.4 kg/m2 Dr. George Váqzuez Work Phone: [facility] Work Phone: 10-28-2022 02:41-0500 Body weight 76.[address] George Vázquez Work Phone: [facility] Work Phone: 10-25-2022 13:03-0500 Body mass index (BMI) [Ratio] 27.2 kg/m2 Dr. George Vázquez Work Phone: [facility] 10-25-2022 13:03-0500 Body weight 78.[address] George Vázquez Work Phone: [facility] 10-25-2022 13:03-0500 Diastolic blood pressure 77 mm[Hg] Dr. George Vázquez Work Phone: [facility] 10-25-2022 13:03-0500 Heart rate 90 /min Dr. George Vázquez Work Phone: 1(589)912-352391 [place] [address] 10-25-2022 13:03-0500 SaO2% (BldA) [Mass fraction] 93 % Dr. George Vázquez Work Phone: 6(342)254-656991 [place] [address] 10-25-2022 13:03-0500 Systolic blood pressure 119 mm[Hg] Dr. George Vázquez Work Phone: 3(429)083-811191 [place] [address] 08-04-2022 12:38-0400 Body height 170.[address] George Vázquez Work Phone: [facility] Work Phone: 08-04-2022 12:30-0400 Body mass index (BMI) [Ratio] 26 kg/m2 Dr. George Vázquez Work Phone: [facility] Work Phone: 08-04-2022 12:30-0400 Body temperature 97.9 [degF] Dr. George Vázquez Work Phone: [facility] Work Phone: 08-04-2022 12:30-0400 Body weight 75.[address] George Vázquez Work Phone: [facility] Work Phone: 08-04-2022 12:30-0400 Diastolic blood pressure 61 mm[Hg] Dr. George Vázquez Work Phone: [facility] Work Phone: 08-04-2022 12:30-0400 Heart rate 86 /min Dr. George Vázquez Work Phone: [facility] Work Phone: 08-04-2022 12:30-0400 Respiratory rate 16 /min Dr. George Vázquez Work Phone: [facility] Work Phone: 08-04-2022 12:30-0400 SaO2% (BldA) [Mass fraction] 90 % Dr. George Vázquez Work Phone: [facility] Work Phone: 08-04-2022 12:30-0400 Systolic blood pressure 94 mm[Hg] Dr. George Vázquez Work Phone: [facility] Work Phone: 07-28-2022 15:57-0400 Body temperature 98.49 [degF] George Vázquez MD Work Phone: [facility] 07-28-2022 15:57-0400 Body weight 76.66 kg George Vázquez MD Work Phone: [facility] 07-28-2022 15:57-0400 Diastolic blood pressure 68 mm[Hg] George Vázquez MD Work Phone: [facility] 07-28-2022 15:57-0400 Heart rate 96 /min George Vázquez MD Work Phone: [facility] 07-28-2022 15:57-0400 Respiratory rate 20 /min George Vázquez MD Work Phone: [facility] 07-28-2022 15:57-0400 SaO2% (BldA) [Mass fraction] 93 % George Vázquez MD Work Phone: [facility] 07-28-2022 15:57-0400 Systolic blood pressure 124 mm[Hg] George Vázquez MD Work Phone: [facility] 07-15-2022 09:04-0400 Body temperature 98.29 [degF] Michelle Alonzo PA-C Work Phone: [facility] 07-15-2022 09:04-0400 Body weight 80.38 kg Michelle Athy PA-C Work Phone: [facility] 07-15-2022 09:04-0400 Diastolic blood pressure 80 mm[Hg] Michelle Athy PA-C Work Phone: [facility] 07-15-2022 09:04-0400 Heart rate 106 /min Michelle Athy PA-C Work Phone: [facility] 07-15-2022 09:04-0400 Respiratory rate 22 /min Michelle Athy PA-C Work Phone: [facility] 07-15-2022 09:04-0400 SaO2% (BldA) [Mass fraction] 92 % Michelle Athy PA-C Work Phone: [facility] 07-15-2022 09:04-0400 Systolic blood pressure 132 mm[Hg] Michelle Athy PA-C Work Phone: [facility] 07-13-2022 18:44-0400 Diastolic blood pressure 67 mm[Hg] Dr. George Vázquez Work Phone: [facility] Work Phone: 07-13-2022 18:44-0400 Heart rate 82 /min Dr. George Vázquez Work Phone: [facility] Work Phone: 07-13-2022 18:44-0400 Respiratory rate 16 /min Dr. George Vázquez Work Phone: [facility] Work Phone: 07-13-2022 18:44-0400 SaO2% (BldA) [Mass fraction] 95 % Dr. George Vázquez Work Phone: [facility] Work Phone: 07-13-2022 18:44-0400 Systolic blood pressure 147 mm[Hg] Dr. George Vázquez Work Phone: [facility] Work Phone: 07-13-2022 16:46-0400 Body height 170.[address] George Vázquez Work Phone: [facility] Work Phone: 07-13-2022 16:46-0400 Body mass index (BMI) [Ratio] 26.9 kg/m2 Dr. George Vázquez Work Phone: [facility] Work Phone: 07-13-2022 16:46-0400 Body temperature 97.6 [degF] Dr. George Vázquez Work Phone: [facility] Work Phone: 07-13-2022 16:46-0400 Body weight 78.[address] George Vázquez Work Phone: [facility] Work Phone: 07-05-2022 11:02-0400 Body temperature 98.01 [degF] Nery Prajaredler-Wood LICENSED NUCLEAR CONTROL ROOM OPERATOR.WIRE DRAWING SETTER Work Phone: [facility] 07-05-2022 11:02-0400 Body weight 77.93 kg Nery Praisler-Wood LICENSED NUCLEAR CONTROL ROOM OPERATOR.WIRE DRAWING SETTER Work Phone: [facility] 07-05-2022 11:02-0400 Diastolic blood pressure 78 mm[Hg] Nery Praisler-Wood LICENSED NUCLEAR CONTROL ROOM OPERATOR.WIRE DRAWING SETTER Work Phone: [facility] 07-05-2022 11:02-0400 Heart rate 83 /min Nery Praisler-Wood LICENSED NUCLEAR CONTROL ROOM OPERATOR.WIRE DRAWING SETTER Work Phone: [facility] 07-05-2022 11:02-0400 Respiratory rate 18 /min Nery Praisler-Wood LICENSED NUCLEAR CONTROL ROOM OPERATOR.WIRE DRAWING SETTER Work Phone: [facility] 07-05-2022 11:02-0400 SaO2% (BldA) [Mass fraction] 97 % Nery Praisler-Wood LICENSED NUCLEAR CONTROL ROOM OPERATOR.WIRE DRAWING SETTER Work Phone: [facility] 07-05-2022 11:02-0400 Systolic blood pressure 124 mm[Hg] Nery Praisler-Wood LICENSED NUCLEAR CONTROL ROOM OPERATOR.WIRE DRAWING SETTER Work Phone: [facility] 07-04-2022 10:45-0400 SaO2% (BldA) [Mass fraction] 96 % Sharonaneesh Patinoaugh PA-C Work Phone: [facility] 07-04-2022 10:35-0400 Body temperature 98.1 [degF] Sharon Slabaugh PA-C Work Phone: [facility] 07-04-2022 10:35-0400 Body weight 78.2 kg Sharon Slabaugh PA-C Work Phone: [facility] 07-04-2022 10:35-0400 Diastolic blood pressure 82 mm[Hg] Sharon Slabaugh PA-C Work Phone: [facility] 07-04-2022 10:35-0400 Heart rate 95 /min Sharon Slabaugh PA-C Work Phone: [facility] 07-04-2022 10:35-0400 Respiratory rate 18 /min Sharon Slabaugh PA-C Work Phone: [facility] 07-04-2022 10:35-0400 Systolic blood pressure 120 mm[Hg] Sharon Slabaugh PA-C Work Phone: [facility] 05-25-2022 08:36-0400 Body height 170.[address] George Vázquez Work Phone: [facility] Work Phone: 05-25-2022 08:36-0400 Body mass index (BMI) [Ratio] 27.3 kg/m2 Dr. George Vázquez Work Phone: [facility] Work Phone: 05-25-2022 08:36-0400 Body temperature 97.9 [degF] Dr. George Vázquez Work Phone: [facility] Work Phone: 05-25-2022 08:36-0400 Body weight 79.[address] George Vázquez Work Phone: [facility] Work Phone: 05-25-2022 08:36-0400 Diastolic blood pressure 80 mm[Hg] Dr. George Vázquez Work Phone: [facility] Work Phone: 05-25-2022 08:36-0400 Heart rate 95 /min Dr. George Vázquez Work Phone: [facility] Work Phone: 05-25-2022 08:36-0400 Respiratory rate 17 /min Dr. George Vázquez Work Phone: [facility] Work Phone: 05-25-2022 08:36-0400 SaO2% (BldA) [Mass fraction] 94 % Dr. George Vázquez Work Phone: [facility] Work Phone: 05-25-2022 08:36-0400 Systolic blood pressure 116 mm[Hg] Dr. George Vázquez Work Phone: [facility] Work Phone: 02-27-2022 00:19-0400 Body weight 82.[address] George Vázquez Work Phone: [facility] Work Phone: 02-14-2022 15:06-0400 Body mass index (BMI) [Ratio] 29.2 kg/m2 Dr. George Vázquez Work Phone: [facility] Work Phone: 02-14-2022 15:06-0400 Body weight 84.[address] George Vázquez Work Phone: [facility] Work Phone: 02-14-2022 15:06-0400 Diastolic blood pressure 64 mm[Hg] Dr. George Vázquez Work Phone: [facility] Work Phone: 02-14-2022 15:06-0400 Heart rate 85 /min Dr. George Vázquez Work Phone: [facility] Work Phone: 02-14-2022 15:06-0400 Respiratory rate 18 /min Dr. George Vázquez Work Phone: [facility] Work Phone: 02-14-2022 15:06-0400 Systolic blood pressure 103 mm[Hg] Dr. George Vázquez Work Phone: [facility] Work Phone: 02-14-2022 15:06-0400 Body height 170.[address] George Vázquez Work Phone: [facility] Work Phone: 02-14-2022 15:06-0400 Body mass index (BMI) [Ratio] 29.2 kg/m2 Dr. George Vázquez Work Phone: [facility] Work Phone: 02-14-2022 15:06-0400 Body weight 84.[address] George Vázquez Work Phone: [facility] Work Phone: 02-14-2022 15:06-0400 Diastolic blood pressure 64 mm[Hg] Dr. George Vázquez Work Phone: [facility] Work Phone: 02-14-2022 15:06-0400 Heart rate 85 /min Dr. George Vázquez Work Phone: [facility] Work Phone: 02-14-2022 15:06-0400 Respiratory rate 18 /min Dr. George Vázquez Work Phone: [facility] Work Phone: 02-14-2022 15:06-0400 Systolic blood pressure 103 mm[Hg] Dr. George Vázquez Work Phone: [facility] Work Phone: 02-14-2022 13:29-0400 Body weight 82.[address] George Vázquez Work Phone: [facility] Work Phone: 02-14-2022 13:29-0400 Body weight 82.[address] George Vázquez Work Phone: [facility] Work Phone: 02-01-2022 13:21-0400 Body mass index (BMI) [Ratio] 28.6 kg/m2 Dr. George Vázquez Work Phone: [facility] Work Phone: 02-01-2022 13:21-0400 Body temperature 98 [degF] Dr. George Vázquez Work Phone: [facility] Work Phone: 02-01-2022 13:21-0400 Body weight [address] George Vázquez Work Phone: [facility] Work Phone: 02-01-2022 13:21-0400 Diastolic blood pressure 69 mm[Hg] Dr. George Vázquez Work Phone: [facility] Work Phone: 02-01-2022 13:21-0400 Heart rate 97 /min Dr. George Vázquez Work Phone: [facility] Work Phone: 02-01-2022 13:21-0400 Respiratory rate 18 /min Dr. George Vázquez Work Phone: [facility] Work Phone: 02-01-2022 13:21-0400 SaO2% (BldA) [Mass fraction] 93 % Dr. George Vázquez Work Phone: [facility] Work Phone: 02-01-2022 13:21-0400 Systolic blood pressure 103 mm[Hg] Dr. George Vázquez Work Phone: [facility] Work Phone: 01-17-2022 10:26-0400 Body height 170.[address] George Vázquez Work Phone: [facility] Work Phone: 01-17-2022 10:26-0400 Body weight 82.[address] George Vázquez Work Phone: [facility] Work Phone: 12-22-2021 09:26-0500 Body weight 83.[address] George Vázquez Work Phone: [facility] Work Phone: 11-22-2021 13:45-0500 Body mass index (BMI) [Ratio] 28.1 kg/m2 Dr. George Vázquez Work Phone: [facility] Work Phone: 11-22-2021 13:45-0500 Body weight 81.[address] George Vázquez Work Phone: [facility] Work Phone: 11-22-2021 13:45-0500 Diastolic blood pressure 60 mm[Hg] Dr. George Vázquez Work Phone: [facility] Work Phone: 11-22-2021 13:45-0500 Heart rate 72 /min Dr. George Vázquez Work Phone: [facility] Work Phone: 11-22-2021 13:45-0500 SaO2% (BldA) [Mass fraction] 94 % Dr. George Vázquez Work Phone: [facility] Work Phone: 11-22-2021 13:45-0500 Systolic blood pressure 106 mm[Hg] Dr. George Vázquez Work Phone: [facility] Work Phone: 11-15-2021 13:52-0500 Diastolic blood pressure 64 mm[Hg] Dr. George Vázquez Work Phone: [facility] Work Phone: 11-15-2021 13:52-0500 Heart rate 76 /min Dr. George Vázquez Work Phone: [facility] Work Phone: 11-15-2021 13:52-0500 Systolic blood pressure 113 mm[Hg] Dr. George Vázquez Work Phone: [facility] Work Phone: 10-04-2021 14:30-0500 Body weight 81.[address] George Vázquez Work Phone: [facility] Work Phone: 10-04-2021 14:30-0500 Diastolic blood pressure 78 mm[Hg] Dr. George Vázquez Work Phone: [facility] Work Phone: 10-04-2021 14:30-0500 Heart rate 84 /min Dr. George Vázquez Work Phone: [facility] Work Phone: 10-04-2021 14:30-0500 Respiratory rate 16 /min Dr. George Vázquez Work Phone: [facility] Work Phone: 10-04-2021 14:30-0500 Systolic blood pressure 108 mm[Hg] Dr. George Vázquez Work Phone: [facility] Work Phone: 09-28-2021 23:31-0500 Body weight 82.[address] George Vázquez Work Phone: [facility] Work Phone: 10-05-2020 14:25-0500 Body mass index (BMI) [Ratio] 28.6 kg/m2 Dr. George Vázquez Work Phone: [facility] Work Phone: Encounters Encounter Date Encounter Type Care Provider Facility Start: 06-14-2025 ambulatory Radha Roberts NP Fac ility:[facility] Start: 05-28-2025 End: 05-28-2025 ambulatory GEORGE VÁZQUEZ Facility:[facility] Start: 05-28-2025 End: 05-28-2025 Patient encounter procedure George Vázquez MD Work Phone: [facility] [place] Comment on above: Medicare annual well ness visit, subsequent (Primary Dx); Coronary artery disease involving [place] coronary artery of [place] heart without angina pectoris; Hyperlipidemia, unspecified hyperlipidemia type; Primary hypertension; Screening for depression; Encounter for screening examination for other mental health and behavioral disorders; Tobacco use disorder; COPD (chronic obstructive pulmonary disease) with chronic bronchitis (HCC); Dupuytren's contracture of right hand; Acute on chronic respiratory failure with hypoxia (HCC); Nodule of lower lobe of left lung (low dose lung CT); Other eczema Start: 05-05-2025 End: 05-05-2025 Patient encounter procedure Daniel GILLILANDC -[facility] Work Phone: Start: 05-05-2025 End: 05-05-[address] George Vázquez MD Work Phone: -[facility] Start: 05-03-2025 End: 05-03-[address] George Vázquez MD Work Phone: -Laboratory Start: 05-03-2025 End: 05-03-2025 Patient encounter procedure Bhupendra DURAN -Laboratory Work Phone: Start: 05-03-2025 End: 05-03-2025 ambulatory Bhupendra Asif Facility:[facility] Start: 02-14-2025 End: 02-14-[address] Neptali Orellana MD -Laboratory Work Phone: Start: 02-14-2025 End: 02-14-2025 ambulatory Neptali Orellana Facility:[facility] Start: 02-05-2025 Non-patient / Non-visit Dr. Salvador miranda MD -[facility] Start: 02-05-2025 End: 02-05-[address] George Vázquez MD Work Phone: [facility] Work Phone: Start: 02-05-2025 End: 02-05-2025 Patient encounter procedure Bhupendra Angelalisa PA -Cardiovascular Services Work Phone: Start: 02-05-2025 End: 02-05-2025 ambulatory Bhupendra Angelalisa Facility:[facility] Start: 01-30-2025 End: 01-30-2025 Refill George Vázquez MD Work Phone: [facility] [place] Comment on above: Med Change Request Start: 01-20-2025 End: 01-20-2025 Patient encounter procedure Bhupendraeamon Asif PA -[facility] Work Phone: Start: 01-20-2025 End: 01-20-2025 ambulatory Bhupendraeamon Asif Facility:[facility] Start: 01-10-2025 End: 01-10-2025 Follow-up encounter George Vázquez MD Work Phone: [facility] [place] Start: 01-08-2025 End: 01-08-2025 ambulatory GEORGE VÁZQUEZ Facility:[facility] Start: 01-08-2025 End: 01-08-2025 Office outpatient visit 25 minutes George Vázquez MD Work Phone: [facility] [place] Comment on above: COPD (chronic obstru ctive pulmonary disease) with chronic bronchitis (HCC) (Primary Dx); Acute on chronic respiratory failure with hypoxia (HCC); Tobacco use disorder; Coronary artery disease involving [place] coronary artery of [place] heart without angina pectoris; Kidney insufficiency Start: 01-08-2025 End: 01-08-2025 Telephone encounter George Vázquez MD Work Phone: [facility] [place] Comment on above: Patient concern Start: 01-08-2025 End: 01-08-[address] Carrillo Malave MD -[facility] Work Phone: Start: 01-08-2025 End: 01-08-[address] George Vázquez MD Work Phone: [facility] Work Phone: Start: 01-08-2025 End: 01-08-2025 ambulatory Carrillo Malave Facility:[facility] Start: 12-09-2024 End: 12-09-2024 ambulatory Venita Dylantonio ERNANDEZ [facility] Start: 12-09-2024 End: 12-09-2024 Patient encounter procedure Venita Quezada MA [facility] Comment on above: Population Health Na vigation Outreach [facility] Start: 11-27-2024 End: 11-27-[address] Neptali Orellana MD -[facility] Work Phone: Start: 11-26-2024 End: 11-27-2024 ambulatory Neptali Orellana Facility:[facility] Start: 11-26-2024 Non-patient / Non-visit Dr. Norah Malave MD -[facility] Work Phone: Start: 11-26-2024 End: 11-26-[address] Carrillo Malave MD -Pulmonary Services/Neurology Work Phone: Start: 11-26-2024 End: 11-26-2024 ambulatory Carrillo Malave Facility:[facility] Start: 11-11-2024 ambulatory Carrillo Malave Facility :[facility] Start: 11-11-2024 Non-patient / Non-visit Dr. Tevin cruz DO -[facility] Start: 11-06-2024 End: 11-06-2024 Patient encounter procedure Radha Roberts NP-C -Pulmonary Services/Neurology Work Phone: Start: 11-05-2024 End: 11-06-2024 ambulatory Radha Roberts NP Facility:[facility] Start: 11-05-2024 End: 11-05-[address] Carrillo Malave MD -[facility] Work Phone: Start: 11-05-2024 End: 11-05-2024 Patient encounter procedure Radha Roberts DEHYDROGENATION OPERATOR HEAD-C -Pulmonary Services/Neurology Work Phone: Start: 11-05-2024 End: 11-05-2024 ambulatory Radha Roberts NP Facility:[facility] Start: 10-28-2024 Non-patient / Non-visit Dr. Saul [facility] Work Phone: Start: 10-28-2024 ambulatory Tomy Hanks Facility:[facility] Start: 10-28-2024 Non-patient / Non-visit Dr. Mallorie LOPEZ -[facility] Start: 10-27-2024 End: 10-28-2024 Evaluation and management of inpatient Dr. Vicente Andrews DO -[facility] Work Phone: Start: 10-27-2024 End: 10-28-2024 ambulatory Vicente Andrews Facility:[facility] Start: 10-27-2024 Non-patient / Non-visit Dr. Saul [facility] Work Phone: Start: 09-24-2024 End: 09-24-2024 ambulatory Darlyn Moreno RN [employer] Start: 09-24-2024 End: 09-24-2024 Follow-up encounter Darlyn Moreno RN [employer] Comment on above: CDM (CHRONIC DISEASE MANAGEMENT OON ED Follow up Call/) Start: 09-20-2024 End: 09-23-2024 ambulatory Darlyn Moreno RN [employer] Start: 09-20-2024 End: 09-23-2024 Follow-up encounter Darlyn Moreno remediation project engineerPen And Pencil Repairer Management Comment on above: CDM (Chronic Disease Management [facility] ED Follow up Call/) Start: 09-18-2024 End: 09-18-2024 Telephone encounter George Vázquez MD Work Phone: [facility] [place] Comment on above: Consult Start: 09-17-2024 End: 09-17-2024 Emergency department patient visit Dr. Francisco Murillo MD -Emergency Department Work Phone: Start: 09-17-2024 End: 09-18-2024 Refill Blanca Tilley LICENSED NUCLEAR CONTROL ROOM OPERATOR.WIRE DRAWING SETTER Work Phone: [facility] [place] Comment on above: Refill Request Start: 09-12-2024 End: 09-12-2024 Office outpatient visit 25 minutes George Vázquez MD Work Phone: [facility] [place] Comment on above: Dyspnea, unspecified type (Primary Dx); Coronary artery disease involving [place] coronary artery of [place] heart without angina pectoris; COPD (chronic obstructive pulmonary disease) with chronic bronchitis (HCC); Sinus tachycardia Start: 09-12-2024 End: 09-12-2024 ambulatory GEORGE VÁZQUEZ Facility:[facility] Start: 09-09-2024 End: 09-12-2024 ambulatory Sarah Carter PA-C Work Phone: Pulmonary Medicine Start: 09-04-2024 End: 09-04-2024 ambulatory GEORGE VÁZQUEZ Facility:[facility] Start: 09-04-2024 End: 09-04-2024 Office outpatient visit 25 minutes George Vázquez MD Work Phone: [facility] [place] Comment on above: COPD with exacerbati on (HCC) (Primary Dx); Coronary artery disease involving [place] coronary artery of [place] heart without angina pectoris Start: 09-04-2024 End: 09-04-2024 Telephone encounter George Vázquez MD Work Phone: [facility] [place] Comment on above: Patient Update Start: 08-30-2024 End: 08-30-2024 Subsequent hospital visit by physician Kelsey [facility] [place] Work Phone: Radiology Comment on above: Subacute cough [R05. 2] Start: 08-30-2024 End: 08-30-2024 ambulatory GEORGE VÁZQUEZ Facility:[facility] Start: 08-30-2024 End: 08-30-2024 Office outpatient visit 25 minutes Prateek Matos LICENSED NUCLEAR CONTROL ROOM OPERATOR.WIRE DRAWING SETTER Work Phone: [facility] Comment on above: Subacute cough (Prim lakesh[place] Dx); COPD with exacerbation (HCC) Start: 08-26-2024 End: 08-26-2024 Telephone encounter Matilda Main APRN.WIRE DRAWING SETTER Work Phone: [facility] Comment on above: Medication Problem Start: 08-25-2024 End: 08-25-2024 ambulatory GEORGE VÁZQUEZ Facility:[facility] Start: 08-25-2024 End: 08-25-2024 Patient encounter procedure Matilda Main APRN.WIRE DRAWING SETTER Work Phone: [facility] Comment on above: Respiratory infectio n (Primary Dx); Thrush Start: 08-21-2024 End: 08-21-2024 ambulatory Darlyn Moreno RN [employer]airer Management Comment on above: CDM (Chronic Disease Management Routine Call/) Start: 08-12-2024 End: 08-12-2024 ambulatory BLANCA TILLEY Facility:[facility] Start: 08-12-2024 End: 08-12-2024 Patient encounter procedure Blanca Tilley APRN.WIRE DRAWING SETTER Work Phone: [facility] [place] Comment on above: Chest wall pain (Maricarmen roxanna Dx); Chronic bronchitis, unspecified chronic bronchitis type (HCC); Hyperlipidemia, unspecified hyperlipidemia type; Impaired glucose metabolism Start: 07-30-2024 End: 07-30-2024 ambulatory Geogre Vázquez Facility:[facility] Start: 07-24-2024 End: 07-24-2024 ambulatory Darlyn Moreno RN [employer] Management Comment on above: CDM (Chronic Disease Management Routine Call/) Start: 07-22-2024 End: 07-26-2024 Refill Blanca Tilley APRN.WIRE DRAWING SETTER Work Phone: [facility] [place] Comment on above: Refill Request Start: 07-11-2024 End: 07-11-2024 ambulatory Luzmaria Sprague RN [employer]airer Management Comment on above: CDM (Telephonic Outr each) Start: 07-10-2024 End: 07-10-2024 ambulatory Luzmaria Sprague RN [employer] Repairer Management Comment on above: CDM (Telephonic Outr each) Start: 06-18-2024 End: 06-19-2024 ambulatory Darlyn Moreno remediation project engineerPen And Pencil Repairer Management Comment on above: Community Monitoring Outreach Start: 06-13-2024 Refill George burdick MD Work Phone: [facility] [place] Comment on above: Refill Request Start: 05-27-2024 End: 05-27-2024 Patient encounter procedure George Vázquez MD Work Phone: [facility] [place] Comment on above: Medicare annual [facility] visit, subsequent (Primary Dx); Coronary artery disease involving [place] coronary artery of [place] heart without angina pectoris; Hyperlipidemia, unspecified hyperlipidemia type; Chronic bronchitis, unspecified chronic bronchitis type (HCC); Primary hypertension; Screening for depression; Encounter for screening examination for other mental health and behavioral disorders; Gastroesophageal reflux disease, unspecified whether esophagitis present; Achilles tendinitis of both lower extremities; Acute on chronic respiratory failure with hypoxia (HCC) Start: 05-22-2024 ambulatory Darlyn Moreno RN Am bulatory Care Management Comment on above: Community Monitoring Outreach Start: 05-15-2024 Refill Blanca yanez APRN.CNP Work Phone: [facility] [place] Comment on above: Refill Request Start: 04-25-2024 ambulatory Darlyn Moreno RN Am bulatory Care Management Comment on above: Community Monitoring Outreach Start: 02-29-2024 Refill George burdick MD Work Phone: [facility] [place] Comment on above: Refill Request Start: 01-23-2024 ambulatory Darlyn Moreno RN Am bulatory Care Management Comment on above: Community Monitoring Outreach Start: 12-08-2023 Non-patient / Non-visit Dr. Norma Vázquez Work Phone: [facility] Start: 12-08-2023 End: 12-08-[address] [facility]: Start: 12-08-2023 End: 12-08-[address] [facility] Start: 12-06-2023 ambulatory Darlyn Moreno RN [facility] Comment on above: Community Monitoring Outreach Start: 11-23-2023 End: 11-23-[address] George Vázquez Work Phone: [facility] Work Phone: Start: 11-10-2023 End: 11-10-[address] George Vázquez Work Phone: [facility] Work Phone: Start: 10-18-2023 End: 10-18-2023 Subsequent hospital visit by physician Xr [facility] Work Phone: Radiology Comment on above: SOB (shortness of br eat) [R06.02] Start: 10-04-2023 Refill Blanca yoon APRN.WIRE DRAWING SETTER Work Phone: Internal [facility] Comment on above: Refill Request Start: 10-02-2023 Orders Only Blanca yoon APRN.WIRE DRAWING SETTER Work Phone: Internal [facility] Start: 09-29-2023 Refill George burdick MD Work Phone: Internal [facility] Comment on above: Refill Request Start: 09-07-2023 Refill George burdick MD Work Phone: Internal [facility] Comment on above: Refill Request Start: 08-24-2023 Refill George burdick MD Work Phone: [facility] [place] Comment on above: Refill Request Start: 08-17-2023 End: 08-17-[address] George Vázquez Work Phone: [facility] Work Phone: Start: 08-17-2023 End: 08-17-[address] George Vázquez Work Phone: [facility]-Pulmonary Services/Neurology Work Phone: Start: 08-11-2023 End: 08-11-[address] George Vázquez Work Phone: [facility] Work Phone: Start: 08-11-2023 End: 08-11-[address] George Vázquez Work Phone: [facility]-Laboratory, Specimen Work Phone: Start: 08-07-2023 End: 08-07-[address] George Vázquez Work Phone: [facility] Work Phone: Start: 08-07-2023 End: 08-07-[address] George Vázquez Work Phone: [facility]-Cat [facility] Work Phone: Start: 08-07-2023 End: 08-07-[address] George Vázquez Work Phone: [facility] [facility] Work Phone: Start: 08-04-2023 End: 08-04-[address] George Vázquez Work Phone: [facility]-Laboratory Work Phone: Start: 07-28-2023 End: 07-28-[address] George Vázquez Work Phone: [facility]Pulmonary [facility] Work Phone: Start: 07-21-2023 End: 07-21-[address] George Vázquez Work Phone: [facility]-Laboratory, Specimen Work Phone: Start: 07-21-2023 End: 07-21-[address] George Vázquez Work Phone: [facility] Work Phone: Start: 07-03-2023 Refill George burdick MD Work Phone: [facility] [place] Comment on above: Refill Request Start: 06-20-2023 Refill George burdick MD Work Phone: [facility] [place] Comment on above: Refill Request Start: 06-19-2023 End: 06-19-[address] George Vázquez Work Phone: [facility] Work Phone: Start: 06-01-2023 ambulatory Darlyn Moreno RN [facility] Comment on above: Community Monitoring Outreach Start: 05-31-2023 End: 05-31-[address] George Vázquez Work Phone: [facility] Work Phone: Start: 05-31-2023 End: 05-31-[address] George Vázquez Work Phone: [facility] Work Phone: Start: 05-29-2023 End: 05-29-2023 Nursing evaluation of patient and report Nurse Gens [facility] Work Phone: General Surgery Comment on above: Infected cyst of ski n (Primary Dx); Skin cyst Start: 05-24-2023 Non-patient / Non-visit Dr. Norma Vázquez Work Phone: [facility] Start: 05-24-2023 End: 05-24-[address] George Vázquez Work Phone: [facility] Work Phone: Start: 05-24-2023 End: 05-24-2023 Patient encounter procedure George Váqzuez MD Work Phone: [facility] [place] Comment on above: Medicare annual well ness visit, subsequent (Primary Dx); Primary hypertension; Chronic bronchitis, unspecified chronic bronchitis type (HCC); Acute on chronic respiratory failure with hypoxia (HCC); Coronary artery disease involving [place] coronary artery of [place] heart without angina pectoris; Gastroesophageal reflux disease, unspecified whether esophagitis present; Tobacco use disorder; Hyperlipidemia, unspecified hyperlipidemia type Start: 05-12-2023 Non-patient / Non-visit Dr. Norma Vázquez Work Phone: [facility] Start: 05-11-2023 End: 05-11-[address] George Vázquez Work Phone: [facility] Work Phone: Start: 05-11-2023 End: 05-11-[address] George Vázquez Work Phone: [facility]-Pulmonary Services/Neurology Work Phone: Start: 04-20-2023 End: 04-20-[address] George Vázquez Work Phone: [facility] Gastroenterology Work Phone: Start: 04-11-2023 End: 04-11-[address] George [facility]quez [facility] Work Phone: Start: 04-11-2023 End: 04-11-[address] George Vázquez Work Phone: [facility] [facility] Work Phone: Start: 04-06-2023 End: 04-06-[address] George Vázquez Work Phone: [facility] Work Phone: Start: 04-06-2023 End: 04-06-[address] George Vázquez Work Phone: [facility]-Physical Therapy Start: 03-17-2023 End: 03-17-2023 Emergency department patient visit Dr. George Vázquez Work Phone: [facility]-Emergency Department Start: 03-17-2023 End: 03-17-[address] [facility]ázquez [facility] Start: 02-03-2023 End: 02-03-[address] George [facility]ázquez [facility] Start: 01-28-2023 End: 01-28-[address] George Vázquez Work Phone: [facility] Work Phone: Start: 01-28-2023 End: 01-28-[address] George Vázquez Work Phone: [facility]-Laboratory, Specimen Start: 01-24-2023 Telephone encounter George morales MD Work Phone: [facility] [place] Comment on above: Results Start: 01-24-2023 End: 01-24-[address] George Vázquez Work Phone: [facility]-Laboratory Start: 01-18-2023 End: 01-18-2023 Patient encounter procedure George Vázquez MD Work Phone: [facility] [place] Comment on above: Primary hypertension (Primary Dx); Coronary artery disease involving [place] coronary artery of [place] heart without angina pectoris; Hyperlipidemia, unspecified hyperlipidemia type; Chronic bronchitis, unspecified chronic bronchitis type (HCC); Acute on chronic respiratory failure with hypoxia (HCC); Need for vaccination Start: 01-13-2023 End: 01-13-[address] George Vázquez Work Phone: [facility] Gastro[facility] Start: 12-28-2022 Non-patient / Non-visit Dr. Norma Vázquez Work Phone: [facility] Start: 12-28-2022 End: 12-28-2022 Admission to same day surgery center Dr. George Vázquez Work Phone: [facility]-Endoscopy Start: 12-22-2022 End: 12-22-[address] George Vázquez Work Phone: [facility] Start: 12-15-2022 End: 12-15-[address] George Vázquez Work Phone: [facility] Start: 12-13-2022 End: 12-13-[address] George Vázquez Work Phone: [facility] Work Phone: Start: 12-13-2022 End: 12-13-[address] George Vázquez Work Phone: [facility] Start: 12-13-2022 Telephone encounter George morales MD Work Phone: [facility] [place] Comment on above: Rx issue; vaccne que stion. Start: 12-05-2022 Refill George burdick MD Work Phone: [facility] [place] Comment on above: Refill Request Start: 12-02-2022 End: 12-02-2022 Non-patient / Non-visit Dr. George Vázquez Work Phone: [facility] Start: 12-02-2022 Non-patient / Non-visit Dr. Norma Vázquez Work Phone: [facility] Start: 12-02-2022 End: 12-02-2022 Admission to same day surgery center Dr. George Vázquez Work Phone: [facility]-Surgical Day Care Start: 12-01-2022 End: 12-01-[address] George Vázquez Work Phone: [facility]-Pulmonary Medicine [facility] Start: 11-30-2022 End: 11-30-2022 Non-patient / Non-visit Dr. George Vázquez Work Phone: [facility] Start: 11-22-2022 End: 11-22-2022 Subsequent hospital visit by physician Xr [facility] Work Phone: Radiology Comment on above: Acute pain of right shoulder [M25.511] Start: 11-22-2022 End: 11-22-2022 Patient encounter procedure Kelly DURAN Work Phone: [facility] Comment on above: Acute pain of right shoulder (Primary Dx); Strain of right shoulder, initial encounter Start: 11-15-2022 End: 11-15-[address] George Vázquez Work Phone: [facility] Start: 11-11-2022 Refill George burdick MD Work Phone: [facility] [place] Comment on above: Med Change Request Start: 11-09-2022 End: 11-09-[address] George Vázquez Work Phone: [facility] Start: 11-09-2022 Refill George burdick MD Work Phone: [facility] [place] Comment on above: Refill Request Start: 11-03-2022 End: 11-03-[address] George Vázquez Work Phone: [facility] Work Phone: Start: 11-03-2022 End: 11-03-[address] George Vázquez Work Phone: [facility] Start: 10-30-2022 Non-patient / Non-visit Dr. Norma Vázquez Work Phone: [facility] Inpatient Physicians Start: 10-29-2022 Non-patient / Non-visit Dr. Norma Vázquez Work Phone: [facility] [facility] Start: 10-28-2022 End: 10-30-2022 Evaluation and management of inpatient Dr. George Vázquez Work Phone: [facility]-Medical Surgical 3 Start: 10-27-2022 End: 10-27-[address] George Vázquez Work Phone: [facility] Work Phone: Start: 10-27-2022 End: 10-27-[address] George Vázquez Work Phone: [facility]-Pulmonary Services/Neurology Start: 10-26-2022 Refill George burdick MD Work Phone: [facility] [place] Comment on above: Refill Request Start: 10-25-2022 End: 10-25-[address] George Vázquez Work Phone: [facility] Gastroenterology Start: 10-18-2022 ambulatory George burdick MD Work Phone: [facility] [place] Comment on above: Renew medication Start: 10-13-2022 Refill Blanca Older LICENSED NUCLEAR CONTROL ROOM OPERATOR .WIRE DRAWING SETTER Work Phone: Internal [facility] Comment on above: Refill Request Start: 10-03-2022 End: 10-03-[address] George Vázquez Work Phone: [facility] Work Phone: Start: 10-03-2022 End: 10-03-[address] George Vázquez Work Phone: [facility]-Physical Therapy Start: 09-26-2022 Refill Blanca Older LICENSED NUCLEAR CONTROL ROOM OPERATOR .WIRE DRAWING SETTER Work Phone: [facility] [place] Comment on above: Refill Request Start: 09-16-2022 Refill Blanca Older LICENSED NUCLEAR CONTROL ROOM OPERATOR .WIRE DRAWING SETTER Work Phone: [facility] [place] Comment on above: Refill Request Start: 09-07-[address] Hetal [facility]quez [facility] Start: 09-05-2022 Refill Blanca Older LICENSED NUCLEAR CONTROL ROOM OPERATOR .WIRE DRAWING SETTER Work Phone: [facility] [place] Comment on above: Refill Request Start: 08-31-2022 End: 08-31-[address] George Vázquez Work Phone: [facility] Work Phone: Start: 08-31-2022 End: 08-31-[address] George Vázquez [facility] Start: 08-21-2022 Refill Blanca Older LICENSED NUCLEAR CONTROL ROOM OPERATOR .WIRE DRAWING SETTER Work Phone: [facility] [place] Comment on above: Refill Request Start: 08-15-2022 Refill Blanca Older LICENSED NUCLEAR CONTROL ROOM OPERATOR .WIRE DRAWING SETTER Work Phone: [facility] [place] Comment on above: Refill Request Start: 08-04-2022 End: 08-04-[address] George Vázquez [facility] Start: 08-03-2022 Orders Only Low Sanders Work Phone: [facility] [place] Comment on above: Primary osteoarthrit is of right knee (Primary Dx) Start: 07-28-2022 End: 07-28-[address] George Vázquez Work Phone: [facility] Work Phone: Start: 07-28-2022 End: 07-28-2022 Patient encounter procedure George Vázquez MD Work Phone: [facility] [place] Comment on above: Cough syncope (Prima ry Dx); Contusion of right chest wall, subsequent encounter; Gallstones Start: 07-26-[address] Hetal [facility]ázquez [facility] Start: 07-15-2022 End: 07-15-2022 Emergency department patient visit GEORGE VÁZQUEZ Facility:[facility] Start: 07-15-2022 End: 07-15-2022 Patient encounter procedure Michelle Alonzo PA-C Work Phone: [facility] Comment on above: Pleuritic chest pain (Primary Dx) Start: 07-13-2022 End: 07-13-2022 Emergency department patient visit Dr. George Vázquez Work Phone: [facility]-Emergency Department Start: 07-11-[address] Hetal Vázquez Work Phone: [facility]-Physical Therapy Start: 07-05-2022 Telephone encounter George morales MD Work Phone: [facility] [place] Comment on above: Covid 19 Concern Start: 07-05-2022 End: 07-05-2022 Patient encounter procedure Nery Ibrahim APRN.WIRE DRAWING SETTER Work Phone: [facility] Comment on above: Suspected COVID-19 v irus infection (Primary Dx) Start: 07-04-2022 End: 07-04-2022 Patient encounter procedure Sharon Zamora PA-C Work Phone: [facility] Comment on above: Oral candidiases (Pr imary Dx) Start: 06-29-2022 Refill George burdick MD Work Phone: [facility] [place] Comment on above: Refill Request Start: 06-26-2022 Refill George burdick MD Work Phone: [facility] [place] Comment on above: Refill Request Start: 06-19-2022 Refill Blanca WynnWIRE DRAWING SETTER Work Phone: [facility] [place] Comment on above: Refill Request Start: 06-09-2022 End: 06-09-[address] George Vázquez Work Phone: [facility] Start: 06-07-[address] Hetal [facility]ázquez [facility] Start: 05-29-2022 Refill Blanca Older LICENSED NUCLEAR CONTROL ROOM OPERATOR .WIRE DRAWING SETTER Work Phone: [facility] [place] Comment on above: Refill Request Start: 05-25-2022 ambulatory Josh Reveles RN Am bulatory [facility] [employer] Comment on above: Community Monitoring Outreach (COPD Telephonic CDM Outreach) Start: 05-25-2022 End: 05-25-[address] George Vázquez [facility] Start: 05-24-2022 Refill Low Sanders Work Phone: [facility] [place] Start: 05-16-2022 Telephone encounter George morales MD Work Phone: [facility] [place] Comment on above: fax to outside - gas tro referral Start: 05-10-2022 Telephone encounter George morales MD Work Phone: [facility] [place] Comment on above: Release Of Medical R ecords Start: 04-25-2022 ambulatory Josh Reveles RN [facility] Care Management Comment on above: Community Monitoring Outreach (COPD Telephonic CDM Outreach) Start: 04-18-2022 ambulatory Blanca Older LICENSED NUCLEAR CONTROL ROOM OPERATOR .WIRE DRAWING SETTER Work Phone: [facility] [place] Comment on above: Blood work Start: 04-14-2022 MC Get Medical Advice George Vázquez MD Work Phone: [facility] [place] Comment on above: Refill Start: 04-04-2022 ambulatory Josh Reveles RN Am [facility] Care Management Comment on above: Community Monitoring Outreach (Chronic Bronchitis CDM Outreach) Start: 03-21-2022 Refill Blanca Older LICENSED NUCLEAR CONTROL ROOM OPERATOR .WIRE DRAWING SETTER Work Phone: [facility] [place] Comment on above: Refill Request Start: 03-07-2022 End: 03-29-[address] George [facility]ázquez [facility] Start: 02-28-2022 ambulatory Josh Reveles RN Am bul[facility] Care Management Comment on above: Community Monitoring Outreach (COPD CDM Outreach) Start: 02-25-2022 End: 02-26-[address] George Vázquez Work Phone: [facility]-Cardiac Rehab Start: 02-22-2022 ambulatory Low Sanders Work Phone: [facility] Comment on above: Right knees swelling up a little bit here and there Start: 02-14-2022 End: 02-14-[address] George Vázquez Work Phone: [facility] Start: 02-04-2022 ambulatory Josh Reveles RN [facility] Care Management Comment on above: Community Monitoring Outreach (COPD CDM Outreach) Start: 02-01-2022 End: 02-01-[address] [facility] Start: 01-26-2022 End: 01-27-[address] George Vázquez Work Phone: [facility] Start: 01-21-2022 ambulatory Josh Reveles RN Am bulatory Care Management Comment on above: Community Monitoring Outreach (CDM Outreach) Start: 12-29-2021 End: 12-29-[address] George Vázquez Work Phone: [facility] Start: 12-27-2021 End: 12-27-[address] Geroge Vázquez Work Phone: [facility] Start: 11-29-2021 End: 11-29-[address] [facility] Start: 11-22-2021 End: 11-22-[address] George Vázquez Work Phone: [facility] Start: 11-17-2021 Non-patient / Non-visit Dr. Norma Vázquez Work Phone: [facility] Start: 11-15-2021 End: 11-15-[address] George Vázquez Work Phone: [facility] Start: 10-07-[address] George Vázquez Work Phone: [facility] Start: 10-04-2021 End: 10-04-[address] George Vázquez Work Phone: [facility] Start: 09-30-2021 Non-patient / Non-visit Dr. Norma Vázquez Work Phone: [facility] Start: 01-15-2021 End: 01-15-2021 Patient encounter procedure [facility] Start: 12-29-2020 End: 12-29-2020 Subsequent hospital visit by physician [facility] Work Phone: Radiology Comment on above: Acute right-sided lo w back pain without sciatica [M54.5] Start: 12-25-2020 End: 12-25-2020 Patient encounter procedure [facility] Procedures Date Procedure Procedure Detail Performing Clinician Start: 05-28-2025 Adult depression screening assessment George Vázquez MD Work Phone: Start: 01-08-2025 X-ray of chest, PA a nd lateral views Dr. George Vázquez MD Work Phone: Start: 01-08-2025 Evaluation of diagno stic study results Dr. George Vázquez MD Work Phone: Start: 11-27-2024 CT angiography of ch est with contrast Dr. George Vázquez MD Work Phone: Start: 11-05-2024 Evaluation of diagno stic study results Dr. George Vázquez MD Work Phone: Start: 10-27-2024 Plain chest X-ray Dr. Justin Vázquez MD Work Phone: Start: 10-27-2024 CT cervical spine without contrast Dr. George Vázquez MD Work Phone: Start: 10-27-2024 CT of head without contrast Dr. George Vázquez MD Work Phone: Start: 09-17-2024 X-ray of chest, PA a nd lateral views Dr. George Vázquez MD Work Phone: Start: 09-12-2024 Ecg routine ecg w/le ast 12 lds i&r only George Vázquez MD Work Phone: Start: 08-30-2024 Radiologic exam ches t 2 views Prateek Matos LICENSED NUCLEAR CONTROL ROOM OPERATOR.WIRE DRAWING SETTER Work Phone: Start: 08-12-2024 Lipid 1996 panel - S beto or Plasma Darlyn Moreno RN Start: 05-27-2024 Adult depression screening assessment George Vázquez MD Work Phone: Start: 02-27-2024 Lipid 1996 panel - S beto or Plasma Blanca Tilley LICENSED NUCLEAR CONTROL ROOM OPERATOR.WIRE DRAWING SETTER Work Phone: Start: 10-18-2023 Radiologic exam ches t 2 views Ilda Bocanegra LICENSED NUCLEAR CONTROL ROOM OPERATOR.WIRE DRAWING SETTER Work Phone: Start: 08-11-2023 Investigation of transfusion reaction Dr. George Vázquez Work Phone: Start: 08-11-[address] micro[address] l culture Dr. George Vázquez Work Phone: Start: 08-07-2023 CT angiography of head Dr. George Vázquez Work Phone: Start: 08-04-2023 Investigation of transfusion reaction Dr. George Vázquez Work Phone: Start: 08-04-2023 [address] l culture Dr. George Vázquez Work Phone: Start: 07-21-2023 Dr. George Vázquez Work Phone: Start: 05-31-2023 CT of chest without contrast Dr. George Vázquez Work Phone: Start: 05-24-2023 Cardiovascular stres s test using pharmacologic stress agent Dr. George Vázquez Work Phone: Start: 03-17-2023 Plain chest X-ray Dr. Justin Vázquez Work Phone: Start: 01-28-[address] e detection Dr. George Vázquez Work Phone: Start: 01-28-[address] George Vázquez Work Phone: Start: 01-24-[address] e detection Dr. George Vázquez Work Phone: Start: 01-24-[address] George Vázquez Work Phone: Start: 01-24-[address] George Vázquez Work Phone: Start: 12-28-2022 Colonoscopy George Delacruz MD Work Phone: Start: 12-13-2022 CT of chest without contrast Dr. George Vázquez Work Phone: Start: 12-02-[address] Hetal Vázquez Work Phone: Start: 12-02-2022 Fluoroscopic guidance Edgar Vázquez Work Phone: Start: 11-22-2022 Radex shoulder compl ete minimum 2 views Kelly DURAN Work Phone: Start: 11-09-2022 Computed tomography of abdomen and pelvis with contrast Dr. George Vázquez Work Phone: Start: 11-03-2022 CT of abdominal vasc ular structures Dr. George Vázquez Work Phone: Start: 10-28-2022 Plain chest X-ray Dr. Justin Vázquez Work Phone: Start: 08-31-2022 Radionuclide gastric emptying study Dr. George Vázquez Work Phone: Start: 07-13-2022 X-ray of chest posteroanterior view Dr. George Vázquez Work Phone: Start: 06-09-2022 CT of chest without contrast Dr. George Vázquez Work Phone: Start: 05-09-2022 Adult depression screening assessment George Vázquez MD Work Phone: Start: 05-05-2022 Lipid 1996 panel - S beto or Plasma George Vázquez MD Work Phone: Start: 12-29-2021 CT of chest without contrast Dr. George Vázquez Work Phone: Start: 09-30-2021 History of placement of stent for coronary artery disease Status post insertion of drug-eluting stent into right coronary artery for coronary artery disease Josh Reveles RN Start: 06-22-2021 Colonoscopy Josh lea RN Start: 05-05-2021 Adult depression screening assessment Josh Reveles RN Start: 12-29-2020 Radex spine lumbosac ral 2/3 views Rashaad Hope MD Work Phone: Start: 11-04-2013 End: 04-29-2015 H/O: artificial joint Knee 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 Blanca Tilley APRN.CNP Work Phone: Start: 10-14-1996 History of coronary artery bypass grafting H/O coronary artery bypass surgery Dr. George Vázquez Work Phone: Comment on above: CABG x 2 STEPHENS-LAD, S VG-D1 10/14/96 @ Adam Velasquez Jayden Start: 10-14-1995 History of coronary artery bypass grafting S/P CABG x 2 Josh Reveles RN Clostridium difficil e detection Dr. George Vázquez Work Phone: Enteric Bacteriology Dr. Marco Vázquez Work Phone: History of cholecystectomy S/P laparoscopic cholecystectomy Dr. George Vázquez Work Phone: Comment on above: 12/02/22 History of coronary artery bypass grafting Hx of coronary artery bypass graft Dr. George Vázquez MD Work Phone: Lactoferrin measurement Dr. George Vázquez Work Phone: Nucleic acid assay Dr. Hetal Vázquez Work Phone: Respiratory Panel (PCR) Dr. George Vázquez Work Phone: Respiratory Panel (PCR) Dr. George Vázquez Work Phone: SARS-CoV-2 & FLU Ant igen (Rapid) Dr. George Vázquez Work Phone: SARS-CoV-2 & FLU Ant igen (Rapid) Dr. George Vázquez Work Phone: Plan of Treatment Date Care Activity Detail Author Start: 05-05-2031 Urine microalbumin profile [facility] Start: 08-12-2029 Lipid panel Lipid Screening [facility] Start: 02-26-2029 Lipid panel Lipid Screening [facility] Start: 01-09-2028 Diabetes Screening Diabetes Screening [facility] Start: 12-29-2027 Colonoscopy COLONOSCOPY [facility] Start: 12-29-2027 COLORECTAL CANCER SCREENING COLORECTAL CANCER SCREENING [facility] Start: 12-29-2027 Screening for malignant neoplasm of colon [facility] Start: 09-12-2027 Diabetes Screening Diabetes Screening [facility] Start: 08-12-2027 Diabetes Screening Diabetes Screening [facility] Start: 05-05-2027 Lipid 1996 panel - Serum or Plasma Lipid Screening [facility] Start: 05-05-2027 Lipid panel Lipid Screening [facility] Start: 05-05-2027 LIPID SCREEN LIPID SCREEN [facility] Start: 02-26-2027 Diabetes Screening Diabetes Screening [facility] Start: 06-22-2026 Colonoscopy COLONOSCOPY [facility] Start: 06-22-2026 COLORECTAL CANCER SCREENING COLORECTAL CANCER SCREENING [facility] Start: 05-28-2026 Annual PCP Team Chronic Disease Visit Annual PCP Team Chronic Disease Visit [facility] Start: 05-28-2026 Anxiety Screening Anxiety Screening [facility] Start: 05-28-2026 Depression Screening Depression Screening [facility] Start: 05-28-2026 Medicare Annual Wellness Visit Medicare Annual Wellness Visit [facility] Start: 05-22-2026 DIABETES SCREEN DIABETES SCREEN [facility] Start: 05-22-2026 Diabetes Screening Diabetes Screening [facility] Start: 04-30-2026 LIPID SCREEN LIPID SCREEN [facility] Start: 01-08-2026 Annual PCP Team Chronic Disease Visit Annual PCP Team Chronic Disease Visit [facility] Start: 11-28-2025 End: 11-28-2025 Patient encounter procedure 11/28/2025 2:20 PM EST Office Visit [facility] [address] [place] [address] George Vázquez MD [address] [place] [address] 6 month follow-up [facility] [place] Comment on above: 6 month follow-up Start: 11-03-2025 PROSTATE CANCER SCREENING DISCUSSION PROSTATE CANCER SCREENING DISCUSSION [facility] Start: 09-12-2025 Annual PCP Team Chronic Disease Visit Annual PCP Team Chronic Disease Visit [facility] Start: 09-04-2025 Annual PCP Team Chronic Disease Visit Annual PCP Team Chronic Disease Visit [facility] Start: 09-04-2025 BP Controlled (<130/80) BP Controlled (<130/80) [facility] Start: 09-01-2025 End: 09-01-2025 Patient encounter procedure 09/01/2025 1:00 PM EST Office Visit Orthopaedics [address] [place] [address] Saritha Vargas PA-C [address] [place] [address] Dupuytren's contracture of right hand [M72.0] Orthopaedics Comment on above: Dupuytren's contracture of right hand [M 72.0] Start: 08-12-2025 Annual PCP Team Chronic Disease Visit Annual PCP Team Chronic Disease Visit [facility] Start: 08-12-2025 Hepatitis B surface antibody level LDL Cholesterol [facility] Start: 07-15-2025 DIABETES SCREEN DIABETES SCREEN [facility] Start: 2025 [facility] Start: 06-04-2025 Screening for malignant neoplasm of lung Lung Cancer Screening [facility] Start: 05-28-2025 End: 05-28-2025 Patient encounter procedure 05/28/2025 1:40 PM EDT Office Visit [facility] [place] [address] [place], [place] [id number] George Vázquez MD [address] [place], [place] [address] Annual Medicare Wellness w/5 month follow-up [facility] [place] Comment on above: Annual Medicare Wellness w/5 month follo w-up Start: 05-27-2025 Annual PCP Team Chronic Disease Visit Annual PCP Team Chronic Disease Visit [facility] Start: 05-27-2025 Anxiety Screening Anxiety Screening [facility] Start: 05-27-2025 BP Controlled (<130/80) BP Controlled (<130/80) [facility] Start: 05-27-2025 Depression Screening Depression Screening [facility] Start: 05-05-2025 DIABETES SCREEN DIABETES SCREEN [facility] Start: 02-26-2025 Hepatitis B surface antibody level LDL Cholesterol [facility] Start: 01-20-2025 Covid-19 Vaccine ( season) Covid-19 Vaccine ( season) [facility] Start: 01-08-2025 End: 04-09-2025 Basic metabolic 2000 panel - Serum or Plasma [facility] Work Phone: Comment on above: Expected: 01/08/2025, Expires: Start: 11-25-2024 End: 11-25-2024 Patient encounter procedure 11/25/2024 1:20 PM EST Office Visit [facility] [place] [address] [facility], [place] [address] George Vázquez MD [address] [place], [place] [id number] 6 month follow-up [facility] [place] Comment on above: 6 month follow-up Start: 11-23-2024 Annual PCP Team Chronic Disease Visit Annual PCP Team Chronic Disease Visit [facility] Start: 11-23-2024 BP Controlled (<130/80) BP Controlled (<130/80) [facility] in Start: 11-08-2024 DIABETES SCREEN DIABETES SCREEN [facility] Start: 10-30-2024 Advance Directive Discussion Advance Directive Discussion [facility] Start: 10-28-2024 Patient discharge [facility] Start: 10-27-2024 Following clinical pathway protocol [facility] Start: 10-27-2024 Ambulation without limitation [facility] Start: 10-27-2024 Assessment of risk of venous thromboembolism [facility] Start: 10-27-2024 Cardiac [address] [facility] Start: 10-27-2024 Incentive spirometry [facility] Start: 10-27-2024 Insertion of catheter into peripheral vein [facility] Start: 10-27-2024 [address] therapy [facility] Start: 10-27-2024 Providing care according to standard [facility] Start: 10-27-2024 Referral to service [facility] Start: 10-27-[address] [facility] Start: 10-27-2024 Admission procedure [facility] Start: 09-17-2024 End: 09-17-[address] [facility] Start: 09-12-2024 End: 12-12-2024 Basic metabolic 2000 panel - Serum or Plasma [facility] Comment on above: Expected: 09/12/2024, Expires: Start: 09-12-2024 End: 12-12-2024 CBC panel - Blood by Automated count [facility] Work Phone: Comment on above: Expected: 09/12/2024, Expires: Start: 09-12-2024 End: 12-12-2024 Natriuretic peptide.B prohormone N-Terminal [Mass/volume] in Serum or Plasma [facility] Comment on above: Expected: 09/12/2024, Expires: Start: 08-27-2024 End: 08-27-2024 ambulatory 08/27/2024 1:30 PM EDT Results Only [facility] [address] [facility] [place] [address] [place] [facility] Start: 08-12-2024 End: 11-11-2024 CBC panel - Blood by Automated count [facility] Comment on above: Expected: 08/12/2024, Expires: Start: 08-12-2024 End: 11-11-2024 Comprehensive metabolic 2000 panel - Serum or Plasma [facility] Comment on above: Expected: 08/12/2024, Expires: Start: 08-12-2024 End: 11-11-2024 Hemoglobin A1c in Blood [facility] Comment on above: Expected: 08/12/2024, Expires: Start: 08-12-2024 End: 11-11-2024 Lipid 1996 panel - Serum or Plasma [facility] Work Phone: Comment on above: Expected: 08/12/2024, Expires: Start: 08-12-2024 End: 11-11-2024 Magnesium [Mass/volume] in Serum or Plasma [facility] Comment on above: Expected: 08/12/2024, Expires: Start: 08-12-2024 End: 11-11-2024 Urinalysis complete panel - Urine [facility] Comment on above: Expected: 08/12/2024, Expires: Start: 2024 Covid-19 Vaccine ( season) Covid-19 Vaccine () [facility] Start: 2024 Covid-19 Vaccine ( season) Covid-19 Vaccine ( season) [facility] Start: 2024 Influenza vaccination [facility] Start: 05-27-2024 End: 05-27-2024 Patient encounter procedure 05/27/2024 12:00 PM EDT Office Visit [facility] [place] [address] [place] [place] [address] George Vázquez MD [address] [place] [address] Medicare Wellness [facility] [place] Comment on above: Medicare Wellness Start: 05-24-2024 ANNUAL PCP TEAM CHRONIC DISEASE VISIT ANNUAL PCP TEAM CHRONIC DISEASE VISIT [facility] Start: 05-24-2024 BP CONTROLLED (<130/80) BP CONTROLLED (<130/80) [facility] Start: 01-25-2024 Hepatitis B surface antibody level LDL CHOLESTEROL [facility] Start: 01-19-2024 ANNUAL PCP TEAM CHRONIC DISEASE VISIT ANNUAL PCP TEAM CHRONIC DISEASE VISIT [facility] Start: 01-14-2024 Covid-19 Vaccine () Covid-19 Vaccine () [facility] Start: 10-30-2023 Advance Directive Discussion Advance Directive Discussion [facility] Start: 10-30-2023 Behavioral Health Screening Behavioral Health Screening [facility] Start: 10-30-2023 Depression Assessment Depression Assessment [facility] Start: 07-28-2023 ANNUAL PCP TEAM CHRONIC DISEASE VISIT ANNUAL PCP TEAM CHRONIC DISEASE VISIT [facility] Start: 07-28-2023 BP CONTROLLED (<130/80) BP CONTROLLED (<130/80) [facility] Start: 07-24-2023 End: 09-23-2023 Basic metabolic 2000 panel - Serum or Plasma BASIC METABOLIC PNL Lab Routine Primary hypertension Expected: 07/24/2023, Expires: 09/23/2023 [facility] Work Phone: Comment on above: Expected: 07/24/2023, Expires: 3 Start: 07-05-2023 BP CONTROLLED (<130/80) BP CONTROLLED (<130/80) [facility] Start: 2023 Covid-19 Vaccine () Covid-19 Vaccine () [facility] Start: 2023 Influenza vaccination [facility] Start: 05-09-2023 Adult depression screening assessment DEPRESSION SCREENING [facility] Start: 05-09-2023 ANNUAL PCP TEAM CHRONIC DISEASE VISIT ANNUAL PCP TEAM CHRONIC DISEASE VISIT [facility] Start: 05-09-2023 BP CONTROLLED (<130/80) [facility] Start: 05-09-2023 SHINGRIX VACCINE (1 of 2) SHINGRIX VACCINE (1 of 2) [facility] Comment on above: Postponed from 2004 (Declined at t his time) Start: 05-05-2023 Hepatitis B surface antibody level LDL CHOLESTEROL [facility] Start: 04-13-2023 COVID-19 VACCINE (6 - Pfizer series) COVID-19 VACCINE (6 - Pfizer series) [facility] Start: 12-28-2022 Colonoscopy w/biopsy single/multiple COLONOSCOPY AND BIOPSY [facility] Start: 12-28-2022 Colsc flx w/rmvl of tumor polyp lesion snare tq COLONOSCOPY W/LESION REMOVAL [facility] Start: 12-28-2022 Egd transoral biopsy single/multiple EGD BIOPSY SINGLE/MULTIPLE [facility] Start: 12-28-2022 Patient discharge [facility] Start: 12-22-2022 BP CONTROLLED (<130/80) BP CONTROLLED (<130/80) [facility] Start: 12-02-2022 Anes intraperitoneal upper abdomen w/laps nos ANESTH SURG UPPER ABDOMEN [facility] Start: 12-02-2022 Laps surg cholecystectomy w/cholangiography LAPARO CHOLECYSTECTOMY/GRAPH [facility] Start: 12-02-2022 Patient discharge [facility] Start: 11-05-2022 ANNUAL PCP TEAM CHRONIC DISEASE VISIT ANNUAL PCP TEAM CHRONIC DISEASE VISIT [facility] Start: 10-30-2022 ADVANCE DIRECTIVE DISCUSSION ADVANCE DIRECTIVE DISCUSSION [facility] Start: 10-30-2022 DEPRESSION ASSESSMENT DEPRESSION ASSESSMENT [facility] Start: 10-30-2022 Patient discharge [facility] Start: 10-29-2022 Respiratory secretion precautions [facility] Start: 10-29-2022 Physiotherapy of chest [facility] Start: 10-29-2022 Inhalation therapy procedure [facility] Start: 10-28-2022 Application of intermittent pneumatic compression device [facility] Start: 10-28-2022 Following clinical pathway protocol [facility] Start: 10-28-2022 Assessment of risk of venous thromboembolism [facility] Start: 10-28-2022 Incentive spirometry [facility] Start: 10-28-2022 Insertion of catheter into peripheral vein [facility] Start: 10-28-2022 Introduction of urinary catheter [facility] Start: 10-28-2022 Measuring intake and output [facility] Start: 10-28-2022 Oxygen therapy [facility] Start: 10-28-2022 Providing care according to standard [facility] Start: 10-28-2022 Provision of activity privileges [facility] Start: 10-28-2022 Referral to service [facility] Start: 10-28-2022 Tobacco use cessation education [facility] Start: 10-28-[address] [facility] Start: 10-28-2022 Admission procedure [facility] Start: 10-28-[address] [facility] Work Phone: Start: 08-23-2022 PNEUMOCOCCAL: 65+ (3 - PPSV23 if available, else PCV20) PNEUMOCOCCAL: 65+ (3 - PPSV23 if available, else PCV20) [facility] Start: 08-23-2022 PNEUMOCOCCAL: 65+ (3 - PPSV23 or PCV20) PNEUMOCOCCAL: 65+ (3 - PPSV23 or PCV20) [facility] Start: 08-23-2022 PNEUMOVAX AGE 65 AND OVER WITH 5YR LOOKBACK (#1) PNEUMOVAX AGE 65 AND OVER WITH 5YR LOOKBACK (#1) [facility] Start: 07-28-2022 Celiac disease screen [facility] Work Phone: Start: 07-28-2022 IgE [Units/volume] in Serum or Plasma [facility] Work Phone: Start: 07-28-2022 Serum immunofixation [facility] Work Phone: Start: 07-28-[address] [facility] Work Phone: Start: 07-05-2022 End: 07-19-2022 Influenza virus A and B RNA and SARS-CoV-2 (COVID-19) N gene panel - Respiratory specimen by JESSICA with probe detection [facility] Work Phone: Comment on above: Expected: 07/05/2022, Expires: Start: 07-04-2022 COVID-19 VACCINE (5 - Booster for Pfizer series) COVID-19 VACCINE (5 - Booster for Pfizer series) [facility] Start: 2022 Influenza vaccination INFLUENZA (#1) [facility] Start: 05-05-2022 Adult depression screening assessment DEPRESSION SCREENING [facility] Start: 04-30-2022 Hepatitis B surface antibody level LDL CHOLESTEROL [facility] Start: 04-27-2022 End: 06-27-2022 Basic metabolic 2000 panel - Serum or Plasma BASIC METABOLIC PNL Lab Routine Hyperlipidemia, unspecified hyperlipidemia type Expected: 04/27/2022, Expires: 06/27/2022 [facility] Work Phone: Comment on above: Expected: 04/27/2022, Expires: 2 Start: 04-27-2022 End: 06-27-2022 Lipid 1996 panel - Serum or Plasma LIPID PANEL BASIC Lab Routine Hyperlipidemia, unspecified hyperlipidemia type Expected: 04/27/2022, Expires: 06/27/2022 [facility] Work Phone: Comment on above: Expected: 04/27/2022, Expires: 2 Start: 10-30-2021 ADVANCE DIRECTIVE DISCUSSION ADVANCE DIRECTIVE DISCUSSION [facility] Start: 10-30-2021 DEPRESSION ASSESSMENT DEPRESSION ASSESSMENT [facility] Start: 10-29-2016 FECAL OCCULT BLOOD FECAL OCCULT BLOOD [facility] Start: 10-29-2016 Screening for malignant neoplasm of colon Fecal Occult Blood [facility] Start: 2014 RSV Vaccine (1 - 1-dose 60+ series) RSV Vaccine (1 - 1-dose 60+ series) [facility] Start: 2004 Screening for malignant neoplasm of lung Lung Cancer Screening [facility] Start: 2004 SHINGRIX VACCINE (1 of 2) SHINGRIX VACCINE (1 of 2) [facility] Start: 1999 COLOGUARD (FIT-DNA) [facility] Start: [address] COLONOGRAPHY [facility] Start: 1999 Screening for malignant neoplasm of colon [facility] Start: 1999 SIGMOIDOSCOPY SIGMOIDOSCOPY [facility] Start: 1984 Zoledronic acid therapy Alpha-1 Antitrypsin Deficiency Screening [facility] Start: 1972 Anxiety Screening Anxiety Screening [facility] Start: 1972 BP CONTROLLED (<130/80) BP CONTROLLED (<130/80) [facility] Start: 1972 Depression Screening Depression Screening [facility] 24 Hour ECG [facility] Albumin [Moles/volum e] in Serum or Plasma [facility] Work Phone: Albumin/Globulin ratio [facility] Work Phone: Antibody to lupus [place] protein measurement [facility] Work Phone: Antibody to SS-A measurement [facility] Work Phone: Basic metabolic 2008 panel with ionized calcium - Serum or Plasma [facility] Centromere protein B Ab [Units/volume] in Serum [facility] Work Phone: Chromatin Ab [Units/volume] in Serum or Plasma [facility] Work Phone: Clostridioides diffi cile DNA [Presence] in Unspecified specimen by JESSICA with probe detection [facility] Work Phone: CT Abdomen and Pelvi s W contrast IV [facility] Work Phone: CT Chest [facility] CT Chest WO contrast [facility] CTA Abdominal vessel s WO and W contrast IV [facility] Work Phone: DNA double strand Ab [Units/volume] in Serum [facility] Work Phone: ECG COMPLETE ECG COMPLETE ECG Routine Coronary artery disease involving [place] coronary artery of [place] heart without angina pectoris 09/12/2024 4:39 PM EST [facility] Elastase, pancreatic (el-1), fecal; quantitative [facility] Work Phone: Electrophoresis: [id number] [facility] Work Phone: Electrophoresis: charbel ma globulin [facility] Work Phone: Fat [Presence] in Stool [facility] Work Phone: Gastrointestinal pathogens panel - Stool by JESSICA with probe detection [facility] Work Phone: Globulin measurement [facility] Work Phone: Hepatic function panel [facility] Hepatic function panel [facility] IgA [Mass/volume] in Serum or Plasma [facility] Work Phone: IgE [Units/volume] i n Serum or Plasma [facility] Work Phone: IgG [Mass/volume] in Serum or Plasma [facility] Work Phone: IgM [Mass/volume] in Serum or Plasma [facility] Work Phone: Maki-1 extractable nuc lear Ab [Units/volume] in Serum [facility] Work Phone: Lactoferrin [Presenc e] in Stool by Immunoassay [facility] Work Phone: Lipid 1996 panel - S beto or Plasma [facility] Lipid 1996 panel - S [facility] or Plasma [facility] Measurement of immunoglobulin A in serum specimen [facility] Work Phone: Neutrophil cytoplasm ic Ab.classic [Units/volume] in Serum [facility] Work Phone: P-ANCA measurement [facility] Work Phone: Patient Education [facility] Work Phone: Patient referral [facility] Work Phone: Protein electrophore sis panel - Serum or Plasma [facility] Work Phone: Protein measurement [facility] Work Phone: Radionuclide gastric emptying study [facility] Work Phone: SCL-70 extractable nuclear Ab [Units/volume] in Serum by Immunoassay [facility] Work Phone: Serum protein electrophoresis [facility] Work Phone: Reyes extractable nu clear Ab [Presence] in Serum [facility] Work Phone: Tissue transglutamin ase IgA Ab [Units/volume] in Serum 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 Work Phone: [facility] 07-23-2024 influenza virus vaccine, unspecified formulation George Vázquez MD Work Phone: [facility] 06-04-2024 respiratory syncytia l virus (RSV) vaccine, adjuvanted (AREXVY) George Vázquez MD Work Phone: [facility] 09-15-2023 COVID-19 vaccine, ag e 12+ yr, season (Sequent) George Vázquez MD Work Phone: [facility] Work Phone: 09-15-2023 influenza (aIIV4) vaccine, age 65+ yr, quadrivalent, PF (FLUAD QUAD) Darlyn Moreno RN [facility] Work Phone: 09-15-2023 influenza, injectabl e, quadrivalent, contains preservative George Vázquez MD Work Phone: [facility] Work Phone: 09-15-2023 influenza virus vaccine, unspecified formulation Blanca Tilley LICENSED 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 George Vázquez Work Phone: [facility] 07-14-2022 influenza, seasonal, injectable Dr. George Vázquez Work Phone: [facility] 07-14-2022 influenza virus vaccine, unspecified formulation George Vázquez MD Work Phone: [facility] 05-09-2022 Covid (Pfizer) Dr. George jade Work Phone: [facility] 05-09-2022 COVID-19 vaccine, ag e 12+ yr (PFIZER-BIONTECH - GIBBS TOP) George Vázquez MD Work Phone: [facility] 07-25-2021 COVID-19 vaccine, ag e 12+ yr (PFIZER-BIONTECH - PURPLE TOP) Josh Reveles RN [facility] Work Phone: 2021 Covid (Pfizer) Dr. George jade Work Phone: [facility] [address] George Vázquez Work Phone: [facility] 05-05-2021 tetanus toxoid, redu wojciech diphtheria toxoid, and acellular pertussis vaccine, adsorbed Josh Reveles RN [facility] Work Phone: 01-15-2021 COVID-19 vaccine, ag e 12+ yr (PFIZER-BIONTECH - PURPLE TOP) Josh Reveles RN [facility] Work Phone: 12-25-2020 COVID-19 vaccine, ag e 12+ yr (PFIZER-BIONTECH - PURPLE TOP) Moreno Darlyn [facility] Work Phone: 07-22-2020 influenza, injectabl e, quadrivalent, contains preservative Josh Carlsonesa [facility] Work Phone: 08-27-2019 influenza, high dose seasonal, preservative-free Moreno Darlyn [facility] Work Phone: 08-27-2019 pneumococcal conjuga te vaccine, 13 valent Josh eRveles [facility] Work Phone: 09-16-2018 influenza, seasonal, injectable Moreno Darlyn [facility] Work Phone: 08-23-2017 influenza, injectabl e, quadrivalent, contains preservative Josh Carlsonesa [facility] 08-23-2017 pneumococcal polysaccharide vaccine, 23 valent Josh Carlsonesa [facility] Work Phone: 08-13-2016 influenza, seasonal, injectable Josh Carlsonesa [facility] 08-13-2015 influenza, seasonal, injectable Josh Carlsonesa [facility] 08-18-2014 influenza, seasonal, injectable Josh Carlsonesa [facility] 10-11-2013 pneumococcal polysaccharide vaccine, 23 valent Josh Carlsonesa [facility] 08-20-2013 influenza virus vaccine, unspecified formulation Josh Carlsonesa [facility] Work Phone: 02-18-2013 tuberculin skin test ; purified protein derivative solution, intradermal Darlyn Moreno [facility] 07-26-2012 influenza virus vaccine, unspecified formulation Josh Carlsonesa [facility] Work Phone: Payers Date Payer Category Payer Self-pay [id number] 2019 Medicare MEDICARE MEDICAR E A AND B [id number] 2019-Present [phone] [place] [address] Medicare [id number] 2019 Medicare [id number] 2019 Private Health Insurance [facility] AARP SUPPLEMENT [id number] 2019-Present [phone] [address] [place] [address] Indemnity [id number] 2019 Private Health Insurance [id number] 2019 Medicare [id number] 2019 Unknown [id number] 1955 Unknown [id number] 1955 Unknown [id number] .[id number] Private Health Insurance [facility] [id number] Unknown [id number] Unknown [id number] .462 Unknown [id number] .462 Unknown [id number] 2.840.1.072091.3.579.2 .462 Unknown [id number] .462 Unknown [id number] .462 Unknown [id number] .462 Unknown [id number] 2.16.840.1.952995.3.579.2 .462 Unknown [id number] 2.16.840.1.208211.3.579.2 .462 Unknown [id number] 2.16.840.1.929777.3.579.2 .462 Unknown [id number] 2.16.840.1.786215.3.579.2 .462 Unknown [id number] 2.16.840.1.320996.3.579.2 .462 Unknown [id number] 2.16.840.1.669796.3.579.2 .462 Unknown [id number] 2.16.840.1.106714.3.579.2 .462 Unknown [id number] 2.16.840.1.278141.3.579.2 .462 Unknown [id number] 2.840.1.301600.3.579.2 .462 Unknown [id number] 2.840.1.972885.3.579.2 .462 Unknown [id number] 2.840.1.796942.3.579.2 .462 Unknown [id number] 2.16.840.1.320627.3.579.2 .462 Unknown [id number] 2.840.1.079805.3.579.2 .462 Unknown [id number] 2.840.1.609257.3.579.2 .462 Unknown [id number] 2.840.1.308630.3.579.2 .462 Unknown [id number] 2.840.1.494496.3.579.2 .462 Unknown [id number] 2.840.1.224227.3.579.2 .462 Social History Date Type Detail Facility Start: 06-17-1984 End: 08-25-2024 Tobacco smoking status DCIS Smokes tobacco daily [facility] Start: 06-17-1984 History of tobacco use Cigarette Smoker [facility] Start: 06-17-1984 History of tobacco use Pipe Smoker [facility] Start: 03-16-2020 End: 10-04-2020 Cigarettes smoked current (pack per day) - Reported 0.5 [facility] Start: 03-16-2020 End: 08-25-2024 Tobacco use and exposure Smokeless tobacco non-user [facility] Start: 12-22-2021 End: 05-28-2025 Alcohol intake Current drinker of alcohol (finding) [facility] Start: 02-24-2020 End: 05-07-2020 History SDOH Alcohol Frequency 4 [facility] Start: 02-24-2020 End: 05-07-2020 History SDOH Alcohol Std Drinks 1 [facility] Start: 11-08-2021 History SDOH Alcohol Comment 2 mixed drinks per day [facility] Start: 02-24-2020 History SDOH Social Connections Phone 5 [facility] Start: 02-24-2020 History SDOH Social Connections Get Together 2 [facility] Start: 02-24-2020 Education 12 [facility] Start: 06-20-2012 Tobacco Comment smokes ocassionally [facility] Start: 1955 Sex Assigned At Not on file [facility] Start: 11-28-2020 End: 07-28-2022 Exposure to SARS-CoV-2 (event) Not sure [facility] Start: 11-22-2021 End: 11-23-2023 Tobacco smoking status NHIS Unknown if ever smoked [facility] Start: 1955 Sex Assigned At Male [facility] Start: 02-24-2020 End: 10-04-2020 Social connection and isolation panel [facility] Do you belong to any clubs or organizations such as zoroastrianism groups, unions, fraternal or athletic groups, or school groups? No [facility] Are you now , , , , never or living with a partner? [facility] How often to you hav e a drink containing alcohol? 2-3 time sa week [facility] Work Phone: How many standard dr inks containing alcohol do you have on a typical day? 1 or 2 [facility] Work Phone: How often do you hav e 6 or more drinks on 1 occasion? Never [facility] Work Phone: How hard is it for y ou to pay for the very basics like food, housing, medical care, and heating Not hard at all [facility] Do you feel stress - tense, restless, nervous, or anxious, or unable to sleep at night because your mind is troubled all the time - these days [OSQ] Only a little [facility] (I/We) worried rhett er (my/our) food would run out before (I/we) got money to buy more. Never true [facility] Start: 05-24-2023 Alcohol Comment 2 mixed drinks 2 times per week. [facility] Start: 01-15-2025 End: 02-11-2025 Sex Male (finding) [facility] How often to you hav e a drink containing alcohol? 4 or more times a week [facility] Medical Equipment Procedure Code Equipment Code Equipment Original Text Equipment Identifier Dates Total cholecystectomy with exploration of common bile duct Ligation clip, synthetic polymer, non-bioabsorbable ()[id number] [facility] Start: 12-02-2022 Total cholecystectomy with exploration of common bile duct Ligation clip, synthetic polymer, non-bioabsorbable ()[id number] [facility] Start: [id number] 5 6148-Simplex P Bone Cement Radiopaque Full Dose Individual Pack - [id number] Start: [id number] 5 6148-Simplex P Bone Cement Radiopaque Full Dose Individual Pack - [id number] Start: [id number] 5 7037-Mbw-Bi-A-Kin d Implant - [id number] Start: 10-10-2013 Comment on above: Description: POLY PA TELLA CEMENTED [id number] 1730-Ijj-Ch-A-Kin d Implant - [id number] Start: 10-10-2013 Comment on above: Description: FEMUR C EMENT CR [id number] 4812-Mva-Gw-A-Kin d Implant - [id number] Start: 10-10-2013 Comment on above: Description: HAMILTON ZAZUETA FIXED BEARING CR [id number] 1112-Acl-Lg-A-Kin d Implant - [id number] Start: 10-10-2013 Comment on above: Description: natural tibia ([id number]) Drug-eluting coronary artery stent, bioabsorbable-primo ymer-coated ()[id number] FDA Start: 09-29-2021 ([id number]) Drug-eluting coronary artery stent, bioabsorbable-primo ymer-coated ()[id number] FDA Start: 09-29-2021 Goals Date Patient Goal Desired Activity /State Personal health goal Comment on above: Formatting of this n ote might be different from the original. Quit Smoking Personal health goal Comment on above: Formatting of this n ote might be different from the original. Quit Smoking, Improve Health Personal health goal Personal health goal Comment on above: Formatting of this n ote might be different from the original. This patient has the following Chronic Obstructive Pulmonary Disease Health Maintenance goals: Two PCP visits annually This patient has the following education goals: COPD KAROL Education - COPD About Patient will meet these goals by 11/30/24 (describe interventions done by PCC) Pt's Goal: Maintain Health Comment on above: Formatting of this n ote might be different from the original. Quit Smoking Comment on above: Formatting of this n ote might be different from the original. Quit Smoking, Improve Health Functional Status Date Assessment Result Facility 05-28-2025 Total score [AUDIT-C] 4 05/28/20 1:48 PM George Huffman MD [facility] 10-28-2024 Functional status [facility] Work Phone: 10-30-2022 Functional status [facility] Work Phone: 11-12-2021 Are you deaf, or do you have serious difficulty hearing No 11/12/2021 4:15 PM Tammie Ramirez RN No [facility] 11-12-2021 Are you blind, or do you have serious difficulty seeing, even when wearing glasses No 11/12/2021 4:15 PM Tammie Ramirez RN No [facility] 11-12-2021 Do you have serious difficulty walking or climbing stairs No 11/12/2021 4:15 PM Tammie Ramirez RN No [facility] 11-12-2021 Do you have difficul ty dressing or bathing No 11/12/2021 4:15 PM Tammie Ramirez RN No [facility] 11-12-2021 Because of a physica l, mental, or emotional condition, do you have difficulty doing errands alone such as visiting a physician's office or shopping No 11/12/2021 4:15 PM Tammie Ramirez RN No [facility] Mental Status Date Assessment Result Facility 10-28-2024 Cognitive function Appropriate;Cooperativ [facility] Work Phone: 10-28-2024 Cognitive function Arousable To Voice/Nam [facility] Work Phone: 12-28-2022 Cognitive function Voice/Name [facility] Work Phone: 12-02-2022 Cognitive function Voice/Name [facility] Work Phone: 10-30-2022 Cognitive function Voice/Name [facility] Work Phone: 07-13-2022 Cognitive function Voice/Name [facility] Work Phone: 11-12-2021 Because of a physica l, mental, or emotional condition, do you have serious difficulty concentrating, remembering, or making decisions No 11/12/2021 4:15 PM Tammie Ramirez RN No [facility] Clinical Notes 11-10-2016 to 05-28-2025 Patient InstructionsGeorge Vázquez MD - 05/28/2025 2:08 PM George Boykin MD - 05/28/2025 2:03 PM EDTTelephone Encounter - George Vázquez MD - 01/30/2025 5:10 PM EDT Note Date & Type Note Facility 05-28-2025 Instructions George Vázquez MD - 05/28/2025 2:17 PM EDT Screening schedule The following prevention plan is recommended: Shingrix Vaccine(1 of 2) Never done Advance Directive Discussion due on 10/30/2024 Medicare Annual Wellness Visit due on 05/27/2025 Depression Screening due on 05/27/2025 Anxiety Screening due on 05/27/2025 WHAT YOU CAN DO TO PREVENT FALLS Many falls can be prevented. By making some changes, you can lower your chances of falling. Four things YOU can do to prevent falls for you* and your caregiver 1. Begin a regular exercise program Exercise is one of the most important ways to lower your chances of falling. It makes you stronger and helps you feel better. Exercises that improve balance and coordination (like Anthony Chi) are the most helpful. Lack of exercise leads to weakness and increases your chances of falling. Ask your doctor or health care provider about the best type of exercise program for you. 2. Have your health care provider review your medicines Have your doctor or pharmacist review all the medicines you take, even btkh-pei-cpqaewo medicines. As you get older, the way medicines work in your body can change. Some medicines, or combinations of medicines, can make you sleepy or dizzy and can cause you to fall. 3. Have your vision checked Have your eyes checked by an eye doctor at least once a year. You may be wearing the wrong glasses or have a condition like glaucoma or cataracts that limits your vision. Poor vision can increase your chances of falling. 4. Make your home safer About half of all falls happen at home. To make your home safer: Remove things you can trip over (like papers, books, clothes, and shoes) from stairs and places where you walk. Remove small throw rugs or use double-sided tape to keep the rugs from slipping. Keep items you use often in cabinets you can reach easily without using a step stool. Have grab bars put in next to your toilet and in the tub or shower. Use non-slip mats in the bathtub and on shower floors. Improve the lighting in your home. As you get older, you need brighter lights to see well. Hang light-weight curtains or shades to reduce glare. Have handrails and lights put in on all staircases. Wear shoes both inside and outside the house. Avoid going barefoot or wearing slippers. For more information, contact: Centers for Disease Control and Prevention www.cdc.gov/injury * This information may not apply if you have certain medical conditions. documented in this encounter [facility] 05-28-2025 Note HNO ID: [id number] Author: GEORGE VÁZQUEZ MD Service: ? Author Type: Physician Type: Progress Notes Filed: 05/28/2025 14:56 Note Text: Tim Henderson is a 69 year old male. ERIN Vu was doing reasonably well. He had a rash on his feet, and lower legs for several months. His family practice nurse practitioner sent off his toenail, but this came back negative for fungus. No treatment was recommended for the non pruritic rash. He had edema of both ankles off and on. He only took furosemide as needed, due his history of near syncope. We updated his medication list. He was now on rosuvastatin and Trelegy [facility] from [facility], and Dr. Orellana sequentially. His dupuytren's contracture had recurred, especially the right hand. Review of Systems Constitutional: Negative for fatigue and fever. Respiratory: Positive for wheezing. Negative for cough and shortness of breath. Cardiovascular: Positive for leg swelling. Negative for chest pain and palpitations. Gastrointestinal: Negative for abdominal pain, constipation and diarrhea. Genitourinary: Negative for difficulty urinating. Skin: Positive for rash. 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) Ddd (Degenerative Disc Disease), Lumbar Failed Cabg (Coronary Artery Bypass Graft) Presence of Drug Coated Stent in Right Coronary Artery Presence of Drug Coated Stent in Left Circumflex Coronary Artery Dupuytren's Contracture of Right Hand Achilles Tendinitis of Both Lower Extremities Nodule of lower lobe of left lung (low dose lung CT) Status Post Insertion of Drug-Eluting Stent into Right Coronary Artery for Coronary Artery Disease Acute On Chronic Respiratory Failure With Hypoxia (Hcc) Gastroesophageal Reflux Disease Social History Tobacco Use Smoking status: Every Day Current packs/day: 0.50 Average packs/day: 0.5 packs/day for 40.9 years (20.5 ttl pk-yrs) Types: Cigarettes, Pipe Start date: 06/17/1984 Smokeless tobacco: Never Vaping Use Vaping status: Never Used Substance Use Topics Alcohol use: Yes Alcohol/week: 7.0 standard drinks of alcohol Types: 7 Standard drinks or equivalent per week Drug use: No Frequency: 2.0 times per week Current Outpatient Medications Medication Sig nystatin (MYCOSTATIN) 100,000 unit/mL suspension Take 5 mL by mouth four times daily. 1tsp swish in mouth for several minutes, then swallow (or expectorate) 4 times daily until gone. Magnesium Oxide 500 mg magnesium tab Take 1 tablet by mouth once daily. albuterol HFA (PROAIR HFA) 90 mcg/actuation inhaler Inhale 2 Puffs as instructed every 6 hours as needed for wheezing/shortness of breath. ipratropium-albuterol (DUONEB) 0.5 mg-3 mg(2.5 mg base)/3 mL nebu Inhale 3 mL as instructed every 6 hours as needed. metoprolol succinate ER (TOPROL XL) 50 mg 24 hr tablet Take 1 tablet by mouth once daily. [facility]. losartan (COZAAR) 50 mg tablet Take 1 tablet by mouth once daily. [facility]. budesonide-formoterol (SYMBICORT) 160-4.5 mcg/actuation inhaler Inhale 2 Puffs as instructed two times a day. isosorbide mononitrate ER (IMDUR) 30 mg 24 hr tablet Take 30 mg by mouth once daily. TRELEGY ELLIPTA 200-62.5-25 mcg inhalation powder Inhale 1 puff as instructed once daily. clopidogrel (PLAVIX) 75 mg tablet Take 1 tablet by mouth once daily. potassium chloride SR (MICRO-K) 10 mEq CR capsule Take 1 capsule by mouth two times a day. furosemide (LASIX) 40 mg tablet Take 1 tablet by mouth once daily as needed (swelling.). rosuvastatin (CRESTOR) 40 mg tablet Take 1 tablet by mouth once daily. No current facility-administered medications for this visit. Objective BP 157/81 (BP Site: Right Arm, BP Position: Sitting, BP Cuff Size: Large Adult) Pulse 72 Ht 169.2 cm (5' 6.6) Wt 78.7 kg (173 lb 8 oz) BMI 27.50 kg/m? Physical Exam Constitutional: General: He is not in acute distress. Appearance: He is not ill-appearing. HENT: Head: Normocephalic. Eyes: Conjunctiva/sclera: Conjunctivae normal. Cardiovascular: Rate and Rhythm: Normal rate and regular rhythm. Heart sounds: S1 normal and S2 normal. No murmur heard. No gallop. Pulmonary: Effort: No respiratory distress. Breath sounds: Wheezing present. No rhonchi or rales. Abdominal: Palpations: Abdomen is soft. Tenderness: There is no abdominal tenderness. Musculoskeletal: Right lower le+ Pitting Edema present. Left lower le+ Pitting Edema present. Skin: Findings: Rash present. Comments: Eczematoid patches in both dorsal feet and lower legs. Neurological: General: No focal deficit present. Mental Status: He is alert. ASSESSMENT/PLAN: 1. Medicare annual wellness visit, subsequent - ICD9: V70.0, ICD10: Z00.00 (primary diagnosis) - See (more content not included)... [facility] 05-28-2025 History of Presen t illness Narrative Tim Henderson is a 69 year old male. ERIN Vu was doing reasonably well. He had a rash on his feet, and lower legs for several months. His family practice nurse practitioner sent off his toenail, but this came back negative for fungus. No treatment was recommended for the non pruritic rash. He had edema of both ankles off and on. He only took furosemide as needed, due his history of near syncope. We updated his medication list. He was now on rosuvastatin and Trelegy Ellipta from [facility], and Dr. Orellana sequentially. His dupuytren's contracture had recurred, especially the right hand. Review of Systems Constitutional: Negative for fatigue and fever. Respiratory: Positive for wheezing. Negative for cough and shortness of breath. Cardiovascular: Positive for leg swelling. Negative for chest pain and palpitations. Gastrointestinal: Negative for abdominal pain, constipation and diarrhea. Genitourinary: Negative for difficulty urinating. Skin: Positive for rash. 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) Ddd (Degenerative Disc Disease), Lumbar Failed Cabg (Coronary Artery Bypass Graft) Presence of Drug Coated Stent in Right Coronary Artery Presence of Drug Coated Stent in Left Circumflex Coronary Artery Dupuytren's Contracture of Right Hand Achilles Tendinitis of Both Lower Extremities Nodule of lower lobe of left lung (low dose lung CT) Status Post Insertion of Drug-Eluting Stent into Right Coronary Artery for Coronary Artery Disease Acute On Chronic Respiratory Failure With Hypoxia (Hcc) Gastroesophageal Reflux Disease Social History Tobacco Use Smoking status: Every Day Current packs/day: 0.50 Average packs/day: 0.5 packs/day for 40.9 years (20.5 ttl pk-yrs) Types: Cigarettes, Pipe Start date: 06/17/1984 Smokeless tobacco: Never Vaping Use Vaping status: Never Used Substance Use Topics Alcohol use: Yes Alcohol/week: 7.0 standard drinks of alcohol Types: 7 Standard drinks or equivalent per week Drug use: No Frequency: 2.0 times per week Current Outpatient Medications Medication Sig nystatin (MYCOSTATIN) 100,000 unit/mL suspension Take 5 mL by mouth four times daily. 1tsp swish in mouth for several minutes, then swallow (or expectorate) 4 times daily until gone. Magnesium Oxide 500 mg magnesium tab Take 1 tablet by mouth once daily. albuterol HFA (PROAIR HFA) 90 mcg/actuation inhaler Inhale 2 Puffs as instructed every 6 hours as needed for wheezing/shortness of breath. ipratropium-albuterol (DUONEB) 0.5 mg-3 mg(2.5 mg base)/3 mL nebu Inhale 3 mL as instructed every 6 hours as needed. metoprolol succinate ER (TOPROL XL) 50 mg 24 hr tablet Take 1 tablet by mouth once daily. [facility]. losartan (COZAAR) 50 mg tablet Take 1 tablet by mouth once daily. [facility]. budesonide-formoterol (SYMBICORT) 160-4.5 mcg/actuation inhaler Inhale 2 Puffs as instructed two times a day. isosorbide mononitrate ER (IMDUR) 30 mg 24 hr tablet Take 30 mg by mouth once daily. TRELEGY ELLIPTA 200-62.5-25 mcg inhalation powder Inhale 1 puff as instructed once daily. clopidogrel (PLAVIX) 75 mg tablet Take 1 tablet by mouth once daily. potassium chloride SR (MICRO-K) 10 mEq CR capsule Take 1 capsule by mouth two times a day. furosemide (LASIX) 40 mg tablet Take 1 tablet by mouth once daily as needed (swelling.). rosuvastatin (CRESTOR) 40 mg tablet Take 1 tablet by mouth once daily. No current facility-administered medications for this visit. Objective BP 157/81 (BP Site: Right Arm, BP Position: Sitting, BP Cuff Size: Large Adult) Pulse 72 Ht 169.2 cm (5' 6.6) Wt 78.7 kg (173 lb 8 oz) BMI 27.50 kg/m Physical Exam Constitutional: General: He is not in acute distress. Appearance: He is not ill-appearing. HENT: Head: Normocephalic. Eyes: Conjunctiva/sclera: Conjunctivae normal. Cardiovascular: Rate and Rhythm: Normal rate and regular rhythm. Heart sounds: S1 normal and S2 normal. No murmur heard. No gallop. Pulmonary: Effort: No respiratory distress. Breath sounds: Wheezing present. No rhonchi or rales. Abdominal: Palpations: Abdomen is soft. Tenderness: There is no abdominal tenderness. Musculoskeletal: Right lower le+ Pitting Edema present. Left lower le+ Pitting Edema present. Skin: Findings: Rash present. Comments: Eczematoid patches in both dorsal feet and lower legs. Neurological: General: No focal deficit present. Mental Status: He is alert. ASSESSMENT/PLAN: 1. Medicare annual wellness visit, subsequent - ICD9: V70.0, ICD10: Z00.00 (primary diagnosis) - See wellness note. 2. Coronary artery disease involving [place] coronary artery of [place] heart without angina pectoris - ICD9: 414.01, ICD10: I25.10 Refilled. - CLOPIDOGREL 75 MG TABLET 3. Hyperlipidemia, unspecified hyperlipidemia type - ICD9: 272.4, ICD10: E78.5 - Control undetermined, due for labs - Continue current medications - ROSUVASTATIN 40 MG TABLET 4. Primary hypertension - ICD9: 401.9, ICD10: I10 - Worsening control - Recommend home blood pressure monitoring, to bring results to next visit - Encouraged sodium restriction, DASH or Mediterranean diet - Defer to cardiology for management. - POTASSIUM CHLORIDE ER 10 MEQ CAPSULE,EXTENDED RELEASE 5. Screening for depression - ICD9: V79.0, ICD10: Z13.31 - DEPRESSION SCREENING 6. Encounter for screening examination for other mental health and behavioral disorders - ICD9: V79.8, ICD10: Z13.39 - ANXIETY SCREENING 7. Tobacco use disorder - ICD9: 305.1, ICD10: F17.200 - Cessation encouraged. 8. COPD (chronic obstructive pulmonary disease) with chronic bronchitis (HCC) - ICD9: 491.20, ICD10: J44.89 - Symptoms controlled - Continue current medications - TRELEGY ELLIPTA 200 MCG-62.5 MCG-25 MCG POWDER FOR INHALATION 9. Dupuytren's contracture of right hand - ICD9: 728.6, ICD10: M72.0 - CONSULT TO ORTHOPAEDICS 10. Acute on chronic respiratory failure with hypoxia (HCC) - ICD9: 518.84, 799.02, ICD10: J96.21 - FUROSEMIDE 40 MG TABLET 11. Nodule of lower lobe of left lung (low dose lung CT) - ICD9: 793.11, ICD10: R91.1 - He was instructed to see Dr. Orellana about this. 12. Other eczema - ICD9: 692.9, ICD10: L30.8 - Feet and lower legs. - discussed skin care of rash - follow up if symptoms persist or worsen. - MOMETASONE 0.1 % TOPICAL CREAM George Vázquez MD Images from the original note were not included. Horace Henderson is a 69 year old male here for a Medicare wellness visit. Medicare Health Risk Assessment General Health Fair Exercise: Minutes/Day 0 min Exercise: Days/Week 0 days Alcohol: Daily Use 4 or more times a week Alcohol: Drinks/Day 1 or 2 Alcohol: 6 or more drinks Never Feel off balance Yes Concerns: Teeth/Dentures No Concerns: Sexual function No Troubled by feelings Anxious Frequency: Eating healthy diet Not at all ADLs requiring help Housework Safety precautions in home/vehicle Yes Smoke, vape, chews tobacco Yes, but I'm not ready to quit Difficulty hearing No Difficulty seeing No Current Providers Specialists: I have reviewed specialist-related care of the patient in the medical record. Current care team: Patient Care Team: George Vázquez MD as PCP - General (Internal Medicine) Blanca Tilley, [employer]WAYNE.WIRE DRAWING SETTER as Slide Developer (Internal Medicine) Outside specialists seen: Dayton Zarate DPM (Podiatry) Carrillo Malave MD (Cardiology) Neptali Orellana MD (Pulmonary) Arvind Hamilton MD (Ophthalmology) Medical/Family history review Reviewed and updated problem list, medical/surgical/family/social history, medications, and allergies. Opioid use review Opioid Medications (last 90 days) No data to display Anxiety/Depression screening PHQ-2 Score: 0 (Lower risk for depression) YANNI-2 Score: 1 (Lower risk for anxiety) Recommendation: no further intervention at this time Cognitive screening Mini Cog Score: 3 Cognitive screening reviewed and No further action needed (score 3-5). Functional Observation Was the patient's Timed Up & Go test unsteady or >= 12 seconds? No Advance Care Planning Patient was not able to provide a surrogate decision maker or written advance directives Measurements BP 157/81 (BP Site: Right Arm, BP Position: Sitting, BP Cuff Size: Large Adult) Pulse 72 Ht 169.2 cm (5' 6.6) Wt 78.7 kg (173 lb 8 oz) BMI 27.50 kg/m Vision Screening: Follows with optometry/ophthalmology Right: 20/40 Left: 20/ 30 Both: 20/30 Assessment/Plan Medicare annual wellness visit, subsequent (Z00.00) - Counseled on healthy diet and regular exercise - Fall avoidance information provided - Personalized prevention plan provided - Smoking cessation encouraged; discussed risks to health and quitting strategies. Patient is not ready to quit - Counseled patient on alcohol intake and associated health risks documented in this encounter [facility] 05-28-2025 Note HNO ID: [id number] Author: GEORGE VÁZQUEZ MD Service: ? Author Type: Physician Type: Progress Notes Filed: 05/28/2025 14:56 Note Text: Horace Henderson is a 69 year old male here for a Medicare wellness visit. Medicare Health Risk Assessment General Health Fair Exercise: Minutes/Day 0 min Exercise: Days/Week 0 days Alcohol: Daily Use 4 or more times a week Alcohol: Drinks/Day 1 or 2 Alcohol: 6 or more drinks Never Feel off balance Yes Concerns: Teeth/Dentures No Concerns: Sexual function No Troubled by feelings Anxious Frequency: Eating healthy diet Not at all ADLs requiring help Housework Safety precautions in home/vehicle Yes Smoke, vape, chews tobacco Yes, but I'm not ready to quit Difficulty hearing No Difficulty seeing No Current Providers Specialists: I have reviewed specialist-related care of the patient in the medical record. Current care team: Patient Care Team: George Vázquez MD as PCP - General (Internal Medicine) Blanca Tilley APRN.WIRE DRAWING SETTER as Slide Developer (Internal Medicine) Outside specialists seen: Dayton Zarate DPM (Podiatry) Carrillo Malave MD (Cardiology) Neptali Orellana MD (Pulmonary) Arvind Hamilton MD (Ophthalmology) Medical/Family history review Reviewed and updated problem list, medical/surgical/family/social history, medications, and allergies. Opioid use review Opioid Medications (last 90 days) No data to display Anxiety/Depression screening PHQ-2 Score: 0 (Lower risk for depression) YANNI-2 Score: 1 (Lower risk for anxiety) Recommendation: no further intervention at this time Cognitive screening Mini Cog Score: 3 Cognitive screening reviewed and No further action needed (score 3-5). Functional Observation Was the patient's Timed Up AND Go test unsteady or >= 12 seconds? No Advance Care Planning Patient was not able to provide a surrogate decision maker or written advance directives Measurements BP 157/81 (BP Site: Right Arm, BP Position: Sitting, BP Cuff Size: Large Adult) Pulse 72 Ht 169.2 cm (5' 6.6) Wt 78.7 kg (173 lb 8 oz) BMI 27.50 kg/m? Vision Screening: Follows with optometry/ophthalmology Right: 20/40 Left: 20/ 30 Both: 20/30 Assessment/Plan Medicare annual wellness visit, subsequent (Z00.00) - Counseled on healthy diet and regular exercise - Fall avoidance information provided - Personalized prevention plan provided - Smoking cessation encouraged; discussed risks to health and quitting strategies. Patient is not ready to quit - Counseled patient on alcohol intake and associated health risks [facility] 01-30-2025 Telephone encount er Note The following approved medication requests have been transmitted electronically. Requested Prescriptions Signed Prescriptions Disp Refills buPROPion SR (WELLBUTRIN SR) 150 mg 12 hr tablet 180 tablet 1 Sig: Take 1 tablet by mouth two times a day. Authorizing Provider: GEORGE VÁZQUEZ MD [facility] 01-30-2025 Miscellaneous Notes Formattin g of this note is different from the original. The following approved medication requests have been transmitted electronically. Requested Prescriptions Signed Prescriptions Disp Refills buPROPion SR (WELLBUTRIN SR) 150 mg 12 hr tablet 180 tablet 1 Sig: Take 1 tablet by mouth two times a day. Authorizing Provider: GEORGE VÁZQUEZ MD Pharmacy is asking for 90 day supply, Last appt: 01/08/2025 Annual Wellness, 05/28/2025 Pat Richey LPN documented in this encounter [facility] 01-30-2025 Telephone encount er Note Pharmacy is asking for 90 day supply, Last appt: 01/08/2025 Annual Wellness, 05/28/2025 Pat Richey LPN [facility] 01-08-2025 Note HNO ID: [id number] Author: GEORGE VÁZQUEZ MD Service: ? Author Type: Physician Type: Progress Notes Filed: 01/08/2025 16:22 Note Text: This note was created using [employer]. Subjective Horace Henderson is a 69 year old male. He's had a productive cough with green phlegm, and increased dyspnea on exertion for the past 1.5 to 2 weeks. He had no upper respiratory infection symptoms, fever, or chills. 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 He sees Dr. Orellana for chronic obstructive pulmonary disease. His oxygen level drops to 88% with activity, but he was not using his portable O2. He used his nocturnal oxygen. He tried to keep up with fluid intake but wondered if he was dehyrdated. Review of Systems Constitutional: Positive for fatigue. Negative for chills, diaphoresis and fever. HENT: Negative for congestion and sore throat. Respiratory: Positive for cough, shortness of breath and wheezing. Cardiovascular: Positive for leg swelling. Negative for chest pain and palpitations. Gastrointestinal: Negative for diarrhea, nausea and vomiting. Neurological: Positive for light-headedness. Negative for headaches. 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) Ddd (Degenerative Disc Disease), Lumbar Failed Cabg (Coronary Artery Bypass Graft) Presence of Drug Coated Stent in Right Coronary Artery Presence of Drug Coated Stent in Left Circumflex Coronary Artery Dupuytren's Contracture of Right Hand Achilles Tendinitis of Both Lower Extremities Nodule of lower lobe of left lung (low dose lung CT) Status Post Insertion of Drug-Eluting Stent into Right Coronary Artery for Coronary Artery Disease Acute On Chronic Respiratory Failure With Hypoxia (Hcc) Gastroesophageal Reflux Disease Social History Tobacco Use Smoking status: Every Day Current packs/day: 0.50 Average packs/day: 0.5 packs/day for 40.6 years (20.3 ttl pk-yrs) Types: Cigarettes, Pipe Start date: 06/17/1984 Smokeless tobacco: Never Vaping Use Vaping status: Never Used Substance Use Topics Alcohol use: Yes Alcohol/week: 9.2 standard drinks of alcohol Types: 4 Standard drinks or equivalent, 4 Mixed Drinks per week Comment: 2 mixed drinks 2 times per week. Drug use: No Frequency: 2.0 times per week Current Outpatient Medications Medication Sig nystatin (MYCOSTATIN) 100,000 unit/mL suspension Take 5 mL by mouth four times daily. 1tsp swish in mouth for several minutes, then swallow (or expectorate) 4 times daily until gone. Magnesium Oxide 500 mg magnesium tab Take 1 tablet by mouth once daily. albuterol HFA (PROAIR HFA) 90 mcg/actuation inhaler Inhale 2 Puffs as instructed every 6 hours as needed for wheezing/shortness of breath. ipratropium-albuterol (DUONEB) 0.5 mg-3 mg(2.5 mg base)/3 mL nebu Inhale 3 mL as instructed every 6 hours as needed. clopidogrel (PLAVIX) 75 mg tablet Take 1 tablet by mouth once daily. ezetimibe (ZETIA) 10 mg tablet Take 1 tablet by mouth once daily. metoprolol succinate ER (TOPROL XL) 50 mg 24 hr tablet Take 1 tablet by mouth once daily. From [facility]. potassium chloride SR (MICRO-K) 10 mEq CR capsule Take 1 capsule by mouth two times a day. pantoprazole DR (PROTONIX) 20 mg tablet Take 1 tablet by mouth daily before breakfast. Take on empty stomach, 1/2 hr before meal. losartan (COZAAR) 50 mg tablet Take 1 tablet by mouth once daily. [facility]. budesonide-formoterol (SYMBICORT) 160-4.5 mcg/actuation inhaler Inhale 2 Puffs as instructed two times a day. furosemide (LASIX) 40 mg tablet Take 1 tablet by mouth once daily. isosorbide mononitrate ER (IMDUR) 30 mg 24 hr tablet Take 30 mg by mouth once daily. No current facility-administered medications for this visit. Objective BP 130/78 (BP Site: Left Arm, BP Position: Sitting, BP Cuff Size: Large Adult) Pulse 110 Temp 36.6 ?C (97.9 ?F) (Temporal) Resp 20 Wt 79.5 kg (175 lb 4.3 oz) BMI 27.45 kg/m? Physical Exam Constitutional: General: He is not in acute distress. Appearance: He is not diaphoretic. HENT: Nose: No congestion or rhinorrhea. Mouth/Throat: Mouth: Mucous membranes are dry. Pharynx: No oropharyngeal exudate or posterior oropharyngeal erythema. Eyes: Conjunctiva/sclera: Conjunctivae normal. Cardiovascular: Rate and Rhythm: Regular rhythm. Tachycardia present. Heart sounds: No murmur heard. No gallop. Pulmonary: Effort: Prolonged expiration present. Breath sounds: Decreased breath sounds and rhonchi present. No wheezing or rales. Abdominal: General: There is no distension. Palpations: Abdomen is soft. Musculoskeletal: Right lower le+ Pitting Edema present. Left lower le+ Pitting Edema present. Lympha (more content not included)... [facility] 01-08-2025 History of Presen t illness Narrative This note was created using [employer]. Subjective Horace Henderson is a 69 year old male. He's had a productive cough with green phlegm, and increased dyspnea on exertion for the past 1.5 to 2 weeks. He had no upper respiratory infection symptoms, fever, or chills. 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 He sees Dr. Orellana for chronic obstructive pulmonary disease. His oxygen level drops to 88% with activity, but he was not using his portable O2. He used his nocturnal oxygen. He tried to keep up with fluid intake but wondered if he was dehyrdated. Review of Systems Constitutional: Positive for fatigue. Negative for chills, diaphoresis and fever. HENT: Negative for congestion and sore throat. Respiratory: Positive for cough, shortness of breath and wheezing. Cardiovascular: Positive for leg swelling. Negative for chest pain and palpitations. Gastrointestinal: Negative for diarrhea, nausea and vomiting. Neurological: Positive for light-headedness. Negative for headaches. 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) Ddd (Degenerative Disc Disease), Lumbar Failed Cabg (Coronary Artery Bypass Graft) Presence of Drug Coated Stent in Right Coronary Artery Presence of Drug Coated Stent in Left Circumflex Coronary Artery Dupuytren's Contracture of Right Hand Achilles Tendinitis of Both Lower Extremities Nodule of lower lobe of left lung (low dose lung CT) Status Post Insertion of Drug-Eluting Stent into Right Coronary Artery for Coronary Artery Disease Acute On Chronic Respiratory Failure With Hypoxia (Hcc) Gastroesophageal Reflux Disease Social History Tobacco Use Smoking status: Every Day Current packs/day: 0.50 Average packs/day: 0.5 packs/day for 40.6 years (20.3 ttl pk-yrs) Types: Cigarettes, Pipe Start date: 06/17/1984 Smokeless tobacco: Never Vaping Use Vaping status: Never Used Substance Use Topics Alcohol use: Yes Alcohol/week: 9.2 standard drinks of alcohol Types: 4 Standard drinks or equivalent, 4 Mixed Drinks per week Comment: 2 mixed drinks 2 times per week. Drug use: No Frequency: 2.0 times per week Current Outpatient Medications Medication Sig nystatin (MYCOSTATIN) 100,000 unit/mL suspension Take 5 mL by mouth four times daily. 1tsp swish in mouth for several minutes, then swallow (or expectorate) 4 times daily until gone. Magnesium Oxide 500 mg magnesium tab Take 1 tablet by mouth once daily. albuterol HFA (PROAIR HFA) 90 mcg/actuation inhaler Inhale 2 Puffs as instructed every 6 hours as needed for wheezing/shortness of breath. ipratropium-albuterol (DUONEB) 0.5 mg-3 mg(2.5 mg base)/3 mL nebu Inhale 3 mL as instructed every 6 hours as needed. clopidogrel (PLAVIX) 75 mg tablet Take 1 tablet by mouth once daily. ezetimibe (ZETIA) 10 mg tablet Take 1 tablet by mouth once daily. metoprolol succinate ER (TOPROL XL) 50 mg 24 hr tablet Take 1 tablet by mouth once daily. From [facility]. potassium chloride SR (MICRO-K) 10 mEq CR capsule Take 1 capsule by mouth two times a day. pantoprazole DR (PROTONIX) 20 mg tablet Take 1 tablet by mouth daily before breakfast. Take on empty stomach, 1/2 hr before meal. losartan (COZAAR) 50 mg tablet Take 1 tablet by mouth once daily. [facility]. budesonide-formoterol (SYMBICORT) 160-4.5 mcg/actuation inhaler Inhale 2 Puffs as instructed two times a day. furosemide (LASIX) 40 mg tablet Take 1 tablet by mouth once daily. isosorbide mononitrate ER (IMDUR) 30 mg 24 hr tablet Take 30 mg by mouth once daily. No current facility-administered medications for this visit. Objective BP 130/78 (BP Site: Left Arm, BP Position: Sitting, BP Cuff Size: Large Adult) Pulse 110 Temp 36.6 C (97.9 F) (Temporal) Resp 20 Wt 79.5 kg (175 lb 4.3 oz) BMI 27.45 kg/m Physical Exam Constitutional: General: He is not in acute distress. Appearance: He is not diaphoretic. HENT: Nose: No congestion or rhinorrhea. Mouth/Throat: Mouth: Mucous membranes are dry. Pharynx: No oropharyngeal exudate or posterior oropharyngeal erythema. Eyes: Conjunctiva/sclera: Conjunctivae normal. Cardiovascular: Rate and Rhythm: Regular rhythm. Tachycardia present. Heart sounds: No murmur heard. No gallop. Pulmonary: Effort: Prolonged expiration present. Breath sounds: Decreased breath sounds and rhonchi present. No wheezing or rales. Abdominal: General: There is no distension. Palpations: Abdomen is soft. Musculoskeletal: Right lower le+ Pitting Edema present. Left lower le+ Pitting Edema present. Lymphadenopathy: Cervical: No cervical adenopathy. Neurological: Mental Status: He is alert. Chest xray today showed COPD. Assessment and Plan 1. COPD (chronic obstructive pulmonary disease) with chronic bronchitis (HCC) - ICD9: 491.20, ICD10: J44.89 (primary diagnosis) Exacerbation. - AZITHROMYCIN 250 MG TABLET - PREDNISONE 20 MG TABLET Discussed medication dosage, usage, goals of therapy, and side effects. 2. Acute on chronic respiratory failure with hypoxia (HCC) - ICD9: 518.84, 799.02, ICD10: J96.21 He was advised to use his portable oxygen. 3. Tobacco use disorder - ICD9: 305.1, ICD10: F17.200 - Cessation encouraged. - Prescription for bupropion (Wellbutrin) given. Discussed medication dosage, usage, goals of therapy, and side effects. Chantix was not effective in the past. - BUPROPION HCL SR 150 MG TABLET,12 HR SUSTAINED-RELEASE 4. Coronary artery disease involving [place] coronary artery of [place] heart without angina pectoris - ICD9: 414.01, ICD10: I25.10 Stable, per Dr. Malave. 5. Kidney insufficiency - ICD9: 593.9, ICD10: N28.9 Check labs today. - BASIC METABOLIC PANEL George Vázquez MD documented in this encounter [facility] 01-08-2025 Evaluation note Diagnosis Onset Date Resolution Cough productive of purulent sputum acute January 08, 2025 10:35am Essential hypertension acute January 08, 2025 10:35am Leg edema acute January 08 10:35am 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 January 08, 2025 10:35am Atherosclerosis of coronary artery acute January 20, 2025 2:42pm ALMONTE (dyspnea on exertion) acute January 20, 2025 2:42pm Essential hypertension acute January 20, 2025 2:42pm Presence of stent in coronary artery October, acute January 20, 2025 2:42pm 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 January 20, 2025 2:42pm COPD (chronic obstructive pulmonary disease) chronic January 20, 2025 2:42pm Hyperlipidemia chronic December 2:42pm Nicotine dependence chronic January 20, 2025 2:42pm Smoking greater than 30 pack years chronic January 20, 2025 2:42pm MIKE (obstructive sleep apnea) suspected January 20, 2025 2:42pm ALMONTE (dyspnea on exertion) acute May 05, 2025 12:55pm Essential hypertension acute May 05, 2025 12:55pm Presence of stent in coronary artery October, acute May 05, 2025 12:55pm Thrush, oral acute May 05 12:55pm 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 May 05, 2025 12:55pm COPD (chronic obstructive pulmonary disease) chronic May 05, 2025 12:55pm Hyperlipidemia chronic May 05, 2025 12:55pm Nicotine dependence chronic May 05, 2025 12:55pm Smoking greater than 30 pack years chronic May 05, 2025 12:55pm MIKE (obstructive sleep apnea) suspected May 05, 2025 12:55pm [facility] Work Phone: 1(691) 497-139403-12-2025 Evaluation note* Diagnosis Onset Date Resolution Status Admit Date Cough productive of purulent sputum acute January 08, 2025 10:35am Essential hypertension [facility] 2024 10:35am Leg edema acute January 08 10:35am 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 January 08, 2025 10:35am Atherosclerosis of coronary artery acute January 20, 2025 2:42pm ALMONTE (dyspnea on exertion) acute January 20, 2025 2:42pm Essential hypertension acute [facility] 2024 2:42pm Presence of stent in coronar y artery October, acute January 20, 2025 2:42pm 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 January 20, 2025 2:42pm COPD (chronic obstructive pulmonary disease) chronic January 20, 2 025 2:42pm Hyperlipidemia chronic December 2:42pm Nicotine dependence chronic January 20, 2025 2:42pm Smoking greater than 30 pack years chronic January 20, 2025 2:42pm MIKE (obstructive sleep apnea) suspec tabitha January 20, 2025 2:42pm ALMONTE (dyspnea on exertion) acute May 05, 2025 12:55pm Essential hypertension acute 2024 12:55pm Presence of stent in coronar y artery October, acute May 05, 2025 12:55pm Thrush, oral acute May 05 12:55pm 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 May 05, 2025 12:55pm COPD (chronic obstructive pulmonary disease) chronic May 05 12:55pm Hyperlipidemia chronic May 05, 2025 12:55pm Smoking greater than 30 pack years chronic May 05, 2025 12:55pm MIKE (obstructive sleep apnea) suspec tabitha May 05, 2025 12:55pm [facility] Work Phone: 1(773) 796-646103-12-2025 Telephone encounter Note* Telephone Encounter - Dodie Sarah RN - 01/08/2025 11:50 AM EDT Pt called and is scheduled today with Dr Vázquez at 340 pm. Dodie Sarah RN [facility]03-12-2025 Miscellaneous Notes* Telephone Encounter - Dodie Sarah RN - 01/08/2025 11:50 AM EDT Pt called and is scheduled today with Dr Vázquez at 340 pm. Dodie Sarah, RN * Telephone Encounter - Pat Richey LPN - 01/08/2025 11:43 AM EDT Attempted to call Patient, no answer, wanting to schedule an appt to be evaluated by Dr. Vázquez.Pat Richey LPN * Telephone Encounter - Ihsan Christensen RN - 01/08/2025 11:20 AM EDT Patient reports he saw Dr. Malave at [facility] today. Dr. Malave did a EKG and CXR. Reports Dr. Malave advised him he was going to send CXR to pcp as it appears pt may have pneumonia and need an AB. Pt reports he has productive green cough, and SOB. No other symptoms. Please advise patient. [phone] [facility] Telephone encounter Note * Telephone Encounter - Pat Richey LPN - 01/08/2025 11:43 AM EDT Attempted to call Patient, no answer, wanting to schedule an appt to be evaluated by Dr. Vázquez.Pat Richey LPN [facility]03-12-2025 Radiology Diagnostic study note [facility] Imaging Services [address] [place] [address] Chest PA and Lateral MR#: [id number] Acct: [id number] Name: HORACE HENDERSON Rep #: [id number] : 1955 M 69 From: Jeanne Amanda MD PCP: Dr. George Vázquez MD Status: R EG CLI Study:Chest PA and Lateral Date of Exam: 01/08/25 Exam# [id number] Ordering Dr: Ihsan Malave MD EXAM: XR Chest, 2 Views CLINICAL INDICATION: SOB COUGH WITH SPUTUM TECHNIQUE: Frontal and lateral views of the chest. COMPARISON: No relevant prior studies available. FINDINGS: LUNGS AND PLEURAL SPACES: Hyperlucent lungs. Flattening of the diaphragm. No consolidation. No pneumothorax. HEART: Unremarkable. No cardiomegaly. MEDIASTINUM: Unremarkable. Normal mediastinal contour. BONES/JOINTS: Unremarkable. No acute fracture. RAD/Chest PA and Lateral IMPRESSION: Suggestion of COPD. Reading Location: [facility] CC: Dr. Carrillo Malave MD; Dr. George Vázquez MD ~ University Lecturer: Signed [facility]03-12-2025 Telephone encounter Note* Telephone Encounter - Ihsan Christensen RN - 01/08/2025 11:20 AM EDT Patient reports he saw Dr. Malave at [facility] today. Dr. Malave did a EKG and CXR. Reports Dr. Malave advised him he was going to send CXR to pcp as it appears pt may have pneumonia and need an AB. Pt reports he has productive green cough, and SOB. No other symptoms. Please advise patient. [phone] [facility]02-10-2025 NoteHNO ID: [id number] Author: VENITA QUEZADA MA Service: ? 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 Patient declined scheduling and did not have a recent home BP reading. Topic Due (Y or N) Comments PCP Follow up Yes Colorectal Cancer Screening No A1C No HTN/Controlling BP Yes Flu No HCC Yes Updated appointment notes No Reason for Outreach Care Gap/HCC or Scheduling Wellness Visits Care Gaps due: Follow-up Appointment Controlling Blood Pressure Patient Contacted: Spoke to patient/parent/or legal guardian Patient identified by name and : Yes Care Gap/HCC/Scheduling Wellness actions taken: Patient declined: Patient will contact office directly to schedule HCC related Navigation Signature: Veniat Quezada MA December 09, 2024 4:54 [facility] History of Present illness Narrative* Venita Quezada MA - 12/09/2024 4:54 PM EST POPULATION HEALTH NAVIGATION OUTREACH Action/FYI Spoke to patient about scheduling follow up, BP control and HCC gap closure. Patient declined scheduling and did not have a recent home BP reading. Topic Due (Y or N) Comments PCP Follow up Yes Colorectal Cancer Screening No A1C No HTN/Controlling BP Yes Flu No HCC Yes Updated appointment notes No Reason for Outreach Care Gap/HCC or Scheduling Wellness Visits Care Gaps due: Follow-up Appointment Controlling Blood Pressure Patient Contacted: Spoke to patient/parent/or legal guardian Patient identified by name and : Yes Care Gap/HCC/Scheduling Wellness actions taken: Patient declined: Patient will contact office directly to schedule HCC related Navigation Signature: Venita Quezada MA December 09, 2024 4:54 PM documented in this encounterCinc[facility] NotePatient Outreach (ANDREW) HORACE HENDERSON ([id number]) 1955 M Date Time Provider Department 12/09/24 VENITA QUEZADA During your visit today, we recorded the following information about you: Venita Quezada MA 12/09/2024 4:56 PM Signed POPULATION HEALTH NAVIGATION OUTREACH Action/FYI Spoke to patient about scheduling follow up, BP control and HCC gap closure. Patient declined scheduling and did not have a recent home BP reading. Topic Due (Y or N) Comments PCP Follow up Yes Colorectal Cancer Screening No A1C No HTN/Controlling BP Yes Flu No HCC Yes Updated appointment notes No Reason for Outreach Care Gap/HCC or Scheduling Wellness Visits Care Gaps due: Follow-up Appointment Controlling Blood Pressure Patient Contacted: Spoke to patient/parent/or legal guardian Patient identified by name and : Yes Care Gap/HCC/Scheduling Wellness actions taken: Patient declined: Patient will contact office directly to schedule HCC related Navigation Signature: Venita Quezada MA December 09, 2024 4:54 PM Allergies As of Date: 12/09/2024 Noted Allergy Reaction LEVOFLOXACIN 06/01/2020 14 - Other: See Comments Comments: Tachycardia. Achilles tendonitis. Date Reviewed: 09/12/2024 Reviewed by: Pat Richey LPN - Fully Assessed Reason for Visit: Population Health Navigation Outreach [3910] Cmt: [facility] Prescriptions as of 12/11/2024 - nystatin (MYCOSTATIN) 100,000 unit/mL suspension Take 5 mL by mouth four times daily. 1tsp swish in mouth for several minutes, then swallow (or expectorate) 4 times daily until gone. - Magnesium Oxide 500 mg magnesium tab Take 1 tablet by mouth once daily. - albuterol HFA (PROAIR HFA) 90 mcg/actuation inhaler Inhale 2 Puffs as instructed every 6 hours as needed for wheezing/shortness of breath. - ipratropium-albuterol (DUONEB) 0.5 mg-3 mg(2.5 mg base)/3 mL nebu Inhale 3 mL as instructed every 6 hours as needed. - clopidogrel (PLAVIX) 75 mg tablet Take 1 tablet by mouth once daily. - ezetimibe (ZETIA) 10 mg tablet Take 1 tablet by mouth once daily. - metoprolol succinate ER (TOPROL XL) 50 mg 24 hr tablet Take 1 tablet by mouth once daily. From [facility]. - potassium chloride SR (MICRO-K) 10 mEq CR capsule Take 1 capsule by mouth two times a day. - pantoprazole DR (PROTONIX) 20 mg tablet Take 1 tablet by mouth daily before breakfast. Take on empty stomach, 1/2 hr before meal. - losartan (COZAAR) 50 mg tablet Take 1 tablet by mouth once daily. [facility]. - budesonide-formoterol (SYMBICORT) 160-4.5 mcg/actuation inhaler Inhale 2 Puffs as instructed two times a day. - furosemide (LASIX) 40 mg tablet Take 1 tablet by mouth once daily. - isosorbide mononitrate ER (IMDUR) 30 mg 24 hr tablet Take 30 mg by mouth once daily. Problem List As Of Date 12/09/2024 Noted Resolved HTN (hypertension) [I10] 01/11/2012 CAD (coronary artery disease) [I25.10] 01/11/2012 S/P CABG x 2 [Z95.1] 10/14/1995 OA (osteoarthritis) of knee [M17.9] 05/08/2012 Diverticulitis [K57.92] 01/09/2014 Sciatica [M54.30] 06/21/2012 04/29/2015 Hyperlipidemia [E78.5] 08/04/2012 Perforated diverticulum of large intestine [K57*08/20/2012 10/27/2012 Tobacco use disorder [F17.200] 10/27/2012 COPD (chronic obstructive pulmonary disease) wi*10/07/2013 Primary localized osteoarthrosis, lower leg [M1*11/04/2013 04/29/2015 Knee 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 [Z96.659] 11/04/2013 04/29/2015 Lumbar radiculopathy [M54.16] 12/13/2013 04/17/2018 DDD (degenerative disc disease), lumbar [M51.36*12/13/2013 Lumbar disc displacement without myelopathy [M5*04/04/2014 04/17/2018 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*05/08/2015 Presence of drug coated stent in right coronary*05/08/2015 Presence of drug coated stent in left circumfle*05/08/2015 Dupuytren's contracture of right hand [M72.0] 11/05/2015 Tobacco abuse [Z72.0] 11/06/2015 11/15/2016 Essential hypertension [I10] 11/10/2016 11/15/2016 Achilles tendinitis of both lower extremities [*06/23/2020 Nodule of lower lobe of left lung (low dose severino*05/05/2021 Status post insertion of drug-eluting stent int*09/30/2021 Acute on chronic respiratory failure with hypox*10/30/2022 Gastroesophageal reflux disease [K21.9] 05/24/2023 Encounter Status:Closed by VENITA QUEZADA on 12/09/24[facility] 10-28-2024 [facility] Medical Records Department [address] [place] [address] Discharge Summary 10/28/24 1643 MR#: [id number] Acct: [id number] Name: HORACE HENDERSON Rep #: [id number] : 1955 69 From: Vicente Andrews DO PCP: Dr. George Vázquez MD Status:ADM GONZÁLEZ Location: [place] [address] Providers Date of Admission: 10/27/24 Date of Discharge: 10/28/24 Primary Care Physician: Dr. George Vázquez MD Reason For Visit: SYNCOPE Diagnosis Discharge Diagnosis (1) Syncope: Status: Acute Code(s): R55 - Syncope and collapse (2) Acute kidney insufficiency: Status: Acute Code(s): N28.9 - Disorder of kidney and ureter, unspecified Medications at Discharge Home Medications clopidogrel 75 mg tablet (Plavix) 75 mg PO DAILY anti platelet #90 tabs 10/04/21 potassium chloride 10 mEq capsule,extended release 10 meq PO DAILY PRN supplement 06/19/23 losartan 50 mg tablet 50 mg PO QDAY #90 tabs 03/18/24 furosemide 40 mg tablet 40 mg PO DAILY #90 TABLETS 06/18/24 albuterol sulfate 90 mcg/actuation aerosol inhaler 2 puff inhalation Q6H PRN PRN Shortness Of Breath #8.5 grams 07/30/24 budesonide-formoterol HFA 160 mcg-4.5 mcg/actuation aerosol inhaler (Symbicort) 2 puff inhalation BID #3 ea 07/30/24 rosuvastatin 40 mg tablet 40 mg PO QHS #90 tabs 08/14/24 isosorbide mononitrate 30 mg tablet,extended release 24 hr 30 mg PO DAILY #90 TABLETS 09/09/24 ipratropium 0.5 mg-albuterol 3 mg (2.5 mg base)/3 mL nebulization soln 3 ml continuous nebulization Q6H PRN shortness of breath or wheezing #180 mL 09/10/24 metoprolol succinate 50 mg tablet,extended release 24 hr 50 mg PO DAILY #180 tabs 09/10/24 Hospital Course Operations None Procedures EKG, Transthoracic echo and - (CT brain, CT C-spine, chest x-ray) Summary of Care Provided Minutes Spent on Discharge: 35 Hospital Course: Patient is a 69-year-old male who presented [facility] ED on 10/27/2024 after a syncopal episode at home. Short hospital course as noted below. Patient discharged home in stable condition on 10/28. 1. Syncopal episode ??? Suspect episode was multifactorial due to hypoxia in setting of severe COPD with poor medication adherence along with hypotension in setting of dehydration from overdiuresis. Patient had no ectopy on cardiac monitoring during hospitalization. Echo on 10/28 showed EF 60%, mild pulmonary hypertension with PASP of 30 mmHg, no other abnormalities. Patient was likely being overdiuresed on home Lasix 40 mg daily. Can continue home Toprol and isosorbide mononitrate but will hold home Lasix and losartan until patient sees cardiology in the office on 11/05. Lower suspicion for cardiac arrhythmia causing the event, will not send event monitor on discharge and instead defer to cardiology on whether this is needed. 2. LILLIE on CKD stage IIIa with mild hypotension ??? Creatinine 2.13 on admit, baseline around 1.5. Presumed secondary to dehydration with hypotension in setting of patient's home medications. Given 2 L of normal saline in the ED with improvement in blood pressure. Creatinine 2.05 on hospital day 2. Blood pressure remains low normal in the 110s over 70s during hospitalization off home medications. Okay to resume home Toprol nitrate on discharge but holding home Lasix and losartan until cardiology follow-up appointment on 11/05. Recommend that patient have repeat BMP done at that time to ensure kidney function has returned back to normal. 3. Hyponatremia, resolved ??? Sodium 130 on admit. Given 2 L normal saline in the ED with improvement back to normal range. 4. History of CAD with CABG and extensive stenting, hypertension, hyperlipidemia, sinus tachycardia ??? Follows with [facility]. Last stenting was done at [facility] back in 2021. Patient reports no recent chest pain. Repeat echo ordered as noted above. Troponin normal on admit and EKG with no ST changes. Continue home Plavix and statin. Continue home Toprol and nitrate, and holding Lasix and losartan as noted above. 5. Severe COPD with nocturnal hypoxia ??? Follows with [facility]. Noted to have severe COPD secondary to extensive smoking history and wears 2 L nasal cannula at night. Per office note from July, patient may need supplemental oxygen with exertion but has refused to wear it. Is prescribed triple therapy with budesonide???formoterol, DuoNebs and Spiriva. Is also prescribed Roflumilast. Patient reports that he has not been using the Spiriva or Roflumilast recently, states he discontinued because he did not feel he needed them. Mild wheezing noted on exam on admit but suspect patient is at his baseline. Continued home medications including Spiriva and Roflumilast here and strongly recommended that patient resume these medications on discharge. Stable on room air on discharge and did not become hypoxic with (more content not included)...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 November 05 12:55pm Hyperlipidemia chronic October 12:55pm 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 November 05 12:55pm Cough productive of purulent sputum acute January 08, 2025 10:35am Essential hypertension acute [facility] 2024 10:35am Leg edema acute January 08 10:35am 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 January 08, 2025 10:35am Atherosclerosis of coronary artery acute January 20, 2025 2:42pm ALMONTE (dyspnea on exertion) acute January 20, 2025 2:42pm Essential hypertension acute [facility] 2024 2:42pm Presence of stent in coronar y artery October, acute January 20, 2025 2:42pm 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 Work Phone: 1(244) 398-635111-26-2024 NoteHNO ID: [id number] Author: DARLYN MORENO RN Service: ? Author Type: Registered Nurse Type: Progress Notes Filed: 09/24/2024 17:05 Note Text: ED Follow-Up Note Provider Action / FYI: 09/17/[address] [facility] ED OON, Reason for ED Visit: Sob 09/24/24 Spk with Pt he noted he has contacted Leyla Roberts [facility] Pulmonology had no return call he then scheduled Appt with Dr. Orellana to establish care mid October, and has Appt for PFT's at [facility] beginning of Oct 2024 Pt noted did not receive any new Rx for Daliresp, or added Spiriva Respimat. Pt wanted to discuss a medication plan with Pulmonology first . Provided Pt with [facility] Pulmonology/ PCP Phone number for a possible sooner ED follow up Appt to address changes in medications made by [facility] ED. Pt noted appreciation. Pt denies CP, has Sob with exertion, has a dry cough, denies wheezing, denies fever or chills started Mucinex, taking Duonebs as needed Pulse Ox 94-95 % Oxygen 2 liter at HS, Pt is speaking in full sentences, No respiratory distress Instructed to contact PCP/Provider for symptom changes, concerns or needs, Call completed by: RN Patient seen in ED: Out of Network ED Contact made with Patient: Yes The patient was identified by Name and Date of . Discussed Care with: patient Patient was seen in the Emergency Department (ED) Location: [facility] Date: 09/17/24 Reason for ED Visit: SOB ED Intervention: CXR-COPD and ASHD. Probable pleural thickening though cannot definitively, exclude tiny right effusion. Otherwise no acute cardiopulmonary pathology P. Ox 94%, T 97.1, BP 151/89, Hr 94 New Medications: ED noted placing him back on Daliresp, not sure why he stopped taking it. adding Spiriva Respimat to place the patient on triple therapy Medication Changes: Yes Does patient understand medication changes: Yes: Pt did not receive any new Rx for Daliresp, or added Spiriva Respimat. Pt did receive script for Prednisone 40 mg Po daily, and verbalized understanding, and is taking as ordered. Pt wants to discuss medication changes with Pulmonology / PCP for a plan; prior to changes, Can patient afford medication changes: Yes Patient educated on worsening symptoms and when and where to seek additional care: Yes Patient Education Provided including treatment plan and new orders. Patient provided with appropriate counseling: Yes Based on carousel operator, the following disposition is advised: No symptoms or symptoms present, not severe. Routed to: No Action Needed KAROL Education Provided this Outreach: No Darlyn Moreno RN September 24, 2024 3:16 [facility]11-26-2024 History of Present illness Narrative* Darlyn Moreno RN - 09/24/2024 2:33 PM EST ED Follow-Up Note Provider Action / FYI: 09/17/[address] [facility] ED OON, Reason for ED Visit: Sob 09/24/24 Spk with Pt he noted he has contacted Leyla Roberts [facility] Pulmonology had no return call he then scheduled Appt with Dr. Orellana to establish care mid October, and has Appt for PFT's at [facility] of Oct 2024 Pt noted did not receive any new Rx for Daliresp, or added Spiriva Respimat. Pt wanted to discuss amedication plan with Pulmonology first . Provided Pt with [facility] Pulmonology/ PCP Phone number for a possible sooner ED follow up Appt to address changes in medications made by [facility] ED. Pt noted appreciation. Pt denies CP, has Sob with exertion, has a dry cough, denies wheezing, denies fever or chills started Mucinex, taking Duonebs as needed Pulse Ox 94-95 % Oxygen 2 liter at HS, Pt is speaking in full sentences, No respiratory distress Instructed to contact PCP/Provider for symptom changes, concerns or needs, Call completed by: RN Patient seen in ED: Out of Network ED Contact made with Patient: Yes The patient was identified by Name and Date of . Discussed Care with: patient Patient was seen in the Emergency Department (ED) Location: [facility] Date: 09/17/24 Reason for ED Visit: SOB ED Intervention: CXR-COPD and ASHD. Probable pleural thickening though cannot definitively, excludetiny right effusion. Otherwise no acute cardiopulmonary pathology P. Ox 94%, T 97.1, BP 151/89, Hr 94 New Medications: ED noted placing him back on Daliresp, not sure why he stopped taking it. adding Spiriva Respimat to place the patient on triple therapy Medication Changes: Yes Does patient understand medication changes: Yes: Pt did not receive any new Rx for Daliresp, or added Spiriva Respimat. Pt did receive script for Prednisone 40 mg Po daily, and verbalized understanding, and is taking as ordered. Pt wants to discuss medication changes with Pulmonology / PCP for a plan; prior to changes, Can patient afford medication changes: Yes Patient educated on worsening symptoms and when and where to seek additional care: Yes Patient Education Provided including treatment plan and new orders. Patient provided with appropriate counseling: Yes Based on carousel operator, the following disposition is advised: No symptoms or symptoms present, not severe. Routed to: No Action Needed KAROL Education Provided this Outreach: No Darlyn Moreno RN September 24, 2024 3:16 PM documented in this encounterC[facility] NotePatient Outreach ([facility]) HORACE HENDERSON ([id number]) 1955 M Date Time Provider Department 09/24/24 DARLYN MORENO [facility] During your visit today, we recorded the following information about you: Darlyn Moreno RN 09/24/2024 5:05 PM Signed ED Follow-Up Note Provider Action / FYI: 09/17/[address] [facility] ED OON, Reason for ED Visit: Sob 09/24/24 Spk with Pt he noted he has contacted Leyla Roberts [facility] Pulmonology had no return call he then scheduled Appt with Dr. Orellana to establish care mid October, and has Appt for PFT's at [facility] beginning of Oct 2024 Pt noted did not receive any new Rx for Daliresp, or added Spiriva Respimat. Pt wanted to discuss a medication plan with Pulmonology first . Provided Pt with [facility] Pulmonology/ PCP Phone number for a possible sooner ED follow up Appt to address changes in medications made by [facility] ED. Pt noted appreciation. Pt denies CP, has Sob with exertion, has a dry cough, denies wheezing, denies fever or chills started Mucinex, taking Duonebs as needed Pulse Ox 94-95 % Oxygen 2 liter at HS, Pt is speaking in full sentences, No respiratory distress Instructed to contact PCP/Provider for symptom changes, concerns or needs, Call completed by: RN Patient seen in ED: Out of Network ED Contact made with Patient: Yes The patient was identified by Name and Date of . Discussed Care with: patient Patient was seen in the Emergency Department (ED) Location: [facility] Date: 09/17/24 Reason for ED Visit: SOB ED Intervention: CXR-COPD and ASHD. Probable pleural thickening though cannot definitively, exclude tiny right effusion. Otherwise no acute cardiopulmonary pathology P. Ox 94%, T 97.1, BP 151/89, Hr 94 New Medications: ED noted placing him back on Daliresp, not sure why he stopped taking it. adding Spiriva Respimat to place the patient on triple therapy Medication Changes: Yes Does patient understand medication changes: Yes: Pt did not receive any new Rx for Daliresp, or added Spiriva Respimat. Pt did receive script for Prednisone 40 mg Po daily, and verbalized understanding, and is taking as ordered. Pt wants to discuss medication changes with Pulmonology / PCP for a plan; prior to changes, Can patient afford medication changes: Yes Patient educated on worsening symptoms and when and where to seek additional care: Yes Patient Education Provided including treatment plan and new orders. Patient provided with appropriate counseling: Yes Based on carousel operator, the following disposition is advised: No symptoms or symptoms present, not severe. Routed to: No Action Needed KAROL Education Provided this Outreach: No Darlyn Moreno RN September 24, 2024 3:16 PM Allergies As of Date: 09/24/2024 Noted Allergy Reaction LEVOFLOXACIN 06/01/2020 14 - Other: See Comments Comments: Tachycardia. Achilles tendonitis. Date Reviewed: 09/12/2024 Reviewed by: Pat Richey LPN - Fully Assessed Reason for Visit: CDM [Other] Cmt: CHRONIC DISEASE MANAGEMENT OON ED Follow up Call Prescriptions as of 10/31/2024 - nystatin (MYCOSTATIN) 100,000 unit/mL suspension Take 5 mL by mouth four times daily. 1tsp swish in mouth for several minutes, then swallow (or expectorate) 4 times daily until gone. - Magnesium Oxide 500 mg magnesium tab Take 1 tablet by mouth once daily. - albuterol HFA (PROAIR HFA) 90 mcg/actuation inhaler Inhale 2 Puffs as instructed every 6 hours as needed for wheezing/shortness of breath. - ipratropium-albuterol (DUONEB) 0.5 mg-3 mg(2.5 mg base)/3 mL nebu Inhale 3 mL as instructed every 6 hours as needed. - clopidogrel (PLAVIX) 75 mg tablet Take 1 tablet by mouth once daily. - ezetimibe (ZETIA) 10 mg tablet Take 1 tablet by mouth once daily. - metoprolol succinate ER (TOPROL XL) 50 mg 24 hr tablet Take 1 tablet by mouth once daily. From [facility]. - potassium chloride SR (MICRO-K) 10 mEq CR capsule Take 1 capsule by mouth two times a day. - pantoprazole DR (PROTONIX) 20 mg tablet Take 1 tablet by mouth daily before breakfast. Take on empty stomach, 1/2 hr before meal. - losartan (COZAAR) 50 mg tablet Take 1 tablet by mouth once daily. Per [facility]. - budesonide-formoterol (SYMBICORT) 160-4.5 mcg/actuation inhaler Inhale 2 Puffs as instructed two times a day. - furosemide (LASIX) 40 mg tablet Take 1 tablet by mouth once daily. - isosorbide mononitrate ER (IMDUR) 30 mg 24 hr tablet Take 30 mg by mouth once daily. Problem List As Of Date 09/24/2024 Noted Resolved HTN (hypertension) [I10] 01/11/2012 CAD (coronary artery disease) [I25.10] 01/11/2012 S/P CABG x 2 [Z95.1] 10/14/1995 OA (osteoarthritis) of knee [M17.9] 05/08/2012 Diverticulitis [K57.92] 01/09/2014 Sciatica [M54.30] 06/21/2012 04/29/2015 Hyperlipidemia [E78.5] 08/04/2012 Perforated diver (more content not included)...[facility] 09-23-2024 NoteHNO ID: [id number] Author: DARLYN MORENO RN Service: ? Author Type: Registered Nurse Type: Progress Notes Filed: 09/23/2024 15:14 Note Text: ED Follow-Up Note Provider Action / FYI: Location: [facility] O Date: 09/17/24 Reason for ED Visit: Sob ED Intervention: CXR-COPD and ASHD. Probable pleural thickening though cannot definitively, exclude tiny right effusion. Otherwise no acute cardiopulmonary pathology P. Ox 94%, T 97.1, BP 151/89, Hr 94 New Medications: Placing him back on Daliresp, not sure why he stopped taking it. Adding Spiriva Respimat to place the patient on triple therapy Medication Changes: yes Call completed by: RN Patient seen in ED: Out of Network ED Contact made with Patient: No, left message. Darlyn Moreno RN September 23, 2024 12:17 [facility]11-25-2024 History of Present illness Narrative* Darlyn Moreno RN - 09/23/2024 12:16 PM EST ED Follow-Up Note Provider Action / FYI: Location: [facility] O Date: 09/17/24 Reason for ED Visit: Sob ED Intervention: CXR-COPD and ASHD. Probable pleural thickening though cannot definitively, excludetiny right effusion. Otherwise no acute cardiopulmonary pathology P. Ox 94%, T 97.1, BP 151/89, Hr 94 New Medications: Placing him back on Daliresp, not sure why he stopped taking it. Adding Spiriva Respimat to place the patient on triple therapy Medication Changes: yes Call completed by: RN Patient seen in ED: Out of Network ED Contact made with Patient: No, left message. Darlyn Moreno RN September 23, 2024 12:17 PM * Darlyn Moreno RN - 09/20/2024 11:02 AM EST ED Follow-Up Note Provider Action / FYI: CDM: Chronic Bronchitis, Tobacco Abuse, Oxygen 2 liters at HS 09/20/24 Spk with Pt he was not available to talk, requests a call back next week. Pt was talking in full sentences, No respiratory distress. Hospital Discharge Instructions Follow-up with your pulmonology PA to ensure you are improving. Plenty of fluids and rest. Prednisone 40 mg a day for the next 10 days starting tomorrow. You were given a dose of IV steroidshere. Use your inhaler and nebulizers at home. Use your oxygen at night and whenever you feel like you needed. Follow-up to ensure you are improving return to emergency department if you are feeling worse. Yourlabs and chest x-ray look good tonight. You can stop the current antibiotic. Plan of Treatment Placing him back on Daliresp, not sure why he stopped taking it. Adding Spiriva Respimat to place the patient on triple therapy. I advised him that long-term prednisone has serious health risks. Repeat a pulmonary function test and walking oximetry prior to his 4-month follow-up. If disease progression is indicated on the repeat testing and the patient is not responding well to the triple therapy and Daliresp we will discuss chronic prednisone. An acute visit and typically be arranged within 1-2 days. Follow-up in 4 months He recently had an RSV vaccination, COVID booster and has already had his annual influenza vaccination. The patient is using and benefiting from oxygen. Encouraged better compliance with supplemental oxygen, I explained to him that he is doing harm to himself by not wearing supplemental oxygen with ambulation. He conveys understanding. Continue to utilize to maintain a saturation of 89-92%. Follow-up in 3 months. Complete smoking cessation highly encouraged, once again Call completed by: RN Patient seen in ED: Out of Network ED Contact made with Patient: Yes The patient was identified by Name and Date of . Discussed Care with: patient Patient was seen in the Emergency Department (ED) Location: [facility] OON Date: 09/17/24 Reason for ED Visit: Sob ED Intervention: CXR-COPD and ASHD. Probable pleural thickening though cannot definitively, excludetiny right effusion. Otherwise no acute cardiopulmonary pathology P. Ox 94%, T 97.1, BP 151/89, Hr 94 New Medications: Placing him back on Daliresp, not sure why he stopped taking it. Adding Spiriva Respimat to place the patient on triple therapy Medication Changes: yes Darlyn Moreno RN September 20, 2024 11:29 AM documented in this encounterCincinnati [facility]11-22-2024 NoteHNO ID: [id number] Author: DARLYN MORENO RN Service: ? Author Type: Registered Nurse Type: Progress Notes Filed: 09/23/2024 15:14 Note Text: ED Follow-Up Note Provider Action / FYI: CDM: Chronic Bronchitis, Tobacco Abuse, Oxygen 2 liters at HS 09/20/24 Spk with Pt he was not available to talk, requests a call back next week. Pt was talking in full sentences, No respiratory distress. Hospital Discharge Instructions Follow-up with your pulmonology PA to ensure you are improving. Plenty of fluids and rest. Prednisone 40 mg a day for the next 10 days starting tomorrow. You were given a dose of IV steroids here. Use your inhaler and nebulizers at home. Use your oxygen at night and whenever you feel like you needed. Follow-up to ensure you are improving return to emergency department if you are feeling worse. Your labs and chest x-ray look good tonight. You can stop the current antibiotic. Plan of Treatment Placing him back on Daliresp, not sure why he stopped taking it. Adding Spiriva Respimat to place the patient on triple therapy. I advised him that long-term prednisone has serious health risks. Repeat a pulmonary function test and walking oximetry prior to his 4-month follow-up. If disease progression is indicated on the repeat testing and the patient is not responding well to the triple therapy and Daliresp we will discuss chronic prednisone. An acute visit and typically be arranged within 1-2 days. Follow-up in 4 months He recently had an RSV vaccination, COVID booster and has already had his annual influenza vaccination. The patient is using and benefiting from oxygen. Encouraged better compliance with supplemental oxygen, I explained to him that he is doing harm to himself by not wearing supplemental oxygen with ambulation. He conveys understanding. Continue to utilize to maintain a saturation of 89-92%. Follow-up in 3 months. Complete smoking cessation highly encouraged, once again Call completed by: RN Patient seen in ED: Out of Network ED Contact made with Patient: Yes The patient was identified by Name and Date of . Discussed Care with: patient Patient was seen in the Emergency Department (ED) Location: [facility] OON Date: 09/17/24 Reason for ED Visit: Sob ED Intervention: CXR-COPD and ASHD. Probable pleural thickening though cannot definitively, exclude tiny right effusion. Otherwise no acute cardiopulmonary pathology P. Ox 94%, T 97.1, BP 151/89, Hr 94 New Medications: Placing him back on Daliresp, not sure why he stopped taking it. Adding Spiriva Respimat to place the patient on triple therapy Medication Changes: yes Darlyn Moreno RN September 20, 2024 11:[address] [facility]11-22-2024 NotePatient Outreach ([facility]) HORACE HENDERSON ([id number]) 1955 M Date Time Provider Department 09/20/24 DARLYN MORENO [facility] During your visit today, we recorded the following information about you: Darlyn Moreno RN 09/23/2024 3:14 PM Signed ED Follow-Up Note Provider Action / FYI: CDM: Chronic Bronchitis, Tobacco Abuse, Oxygen 2 liters at HS 09/20/24 Spk with Pt he was not available to talk, requests a call back next week. Pt was talking in full sentences, No respiratory distress. Hospital Discharge Instructions Follow-up with your pulmonology PA to ensure you are improving. Plenty of fluids and rest. Prednisone 40 mg a day for the next 10 days starting tomorrow. You were given a dose of IV steroids here. Use your inhaler and nebulizers at home. Use your oxygen at night and whenever you feel like you needed. Follow-up to ensure you are improving return to emergency department if you are feeling worse. Your labs and chest x-ray look good tonight. You can stop the current antibiotic. Plan of Treatment Placing him back on Daliresp, not sure why he stopped taking it. Adding Spiriva Respimat to place the patient on triple therapy. I advised him that long-term prednisone has serious health risks. Repeat a pulmonary function test and walking oximetry prior to his 4-month follow-up. If disease progression is indicated on the repeat testing and the patient is not responding well to the triple therapy and Daliresp we will discuss chronic prednisone. An acute visit and typically be arranged within 1-2 days. Follow-up in 4 months He recently had an RSV vaccination, COVID booster and has already had his annual influenza vaccination. The patient is using and benefiting from oxygen. Encouraged better compliance with supplemental oxygen, I explained to him that he is doing harm to himself by not wearing supplemental oxygen with ambulation. He conveys understanding. Continue to utilize to maintain a saturation of 89-92%. Follow-up in 3 months. Complete smoking cessation highly encouraged, once again Call completed by: RN Patient seen in ED: Out of Network ED Contact made with Patient: Yes The patient was identified by Name and Date of . Discussed Care with: patient Patient was seen in the Emergency Department (ED) Location: [facility] OON Date: 09/17/24 Reason for ED Visit: Sob ED Intervention: CXR-COPD and ASHD. Probable pleural thickening though cannot definitively, exclude tiny right effusion. Otherwise no acute cardiopulmonary pathology P. Ox 94%, T 97.1, BP 151/89, Hr 94 New Medications: Placing him back on Daliresp, not sure why he stopped taking it. Adding Spiriva Respimat to place the patient on triple therapy Medication Changes: yes Darlyn Moreno RN September 20, 2024 11:29 AM Darlyn Moreno RN 09/23/2024 3:14 PM Signed ED Follow-Up Note Provider Action / FYI: Location: [facility] O Date: 09/17/24 Reason for ED Visit: Sob ED Intervention: CXR-COPD and ASHD. Probable pleural thickening though cannot definitively, exclude tiny right effusion. Otherwise no acute cardiopulmonary pathology P. Ox 94%, T 97.1, BP 151/89, Hr 94 New Medications: Placing him back on Daliresp, not sure why he stopped taking it. Adding Spiriva Respimat to place the patient on triple therapy Medication Changes: yes Call completed by: RN Patient seen in ED: Out of Network ED Contact made with Patient: No, left message. Darlyn Moreno RN September 23, 2024 12:17 PM Allergies As of Date: 09/20/2024 Noted Allergy Reaction LEVOFLOXACIN 06/01/2020 14 - Other: See Comments Comments: Tachycardia. Achilles tendonitis. Date Reviewed: 09/12/2024 Reviewed by: Pat Richey LPN - Fully Assessed Reason for Visit: CDM [Other] Cmt: Chronic Disease Management OON ED Follow up Call Prescriptions as of 09/23/2024 - nystatin (MYCOSTATIN) 100,000 unit/mL suspension Take 5 mL by mouth four times daily. 1tsp swish in mouth for several minutes, then swallow (or expectorate) 4 times daily until gone. - Magnesium Oxide 500 mg magnesium tab Take 1 tablet by mouth once daily. - albuterol HFA (PROAIR HFA) 90 mcg/actuation inhaler Inhale 2 Puffs as instructed every 6 hours as needed for wheezing/shortness of breath. - ipratropium-albuterol (DUONEB) 0.5 mg-3 mg(2.5 mg base)/3 mL nebu Inhale 3 mL as instructed every 6 hours as needed. - clopidogrel (PLAVIX) 75 mg tablet Take 1 tablet by mouth once daily. - ezetimibe (ZETIA) 10 mg tablet Take 1 tablet by mouth once daily. - metoprolol succinate ER (TOPROL XL) 50 mg 24 hr tablet Take 1 tablet by mouth once daily. From [facility]. - potassium chloride SR (MICRO-K) 10 mEq CR capsule Take 1 capsule by mouth two times a day. - pantoprazole DR (PROTONIX) 20 mg tablet Take 1 ta (more content not included)...[facility]11-20-2024 Telephone encounter Note* Telephone Encounter - Pat Richey LPN - 09/18/2024 3:22 PM EST Referral faxed to Dr. Orellana. Pat Richey LPN [facility]11-20-2024 Miscellaneous Notes* Telephone Encounter - Pat Richey LPN - 09/18/2024 3:22 PM EST Referral faxed to Dr. Sibilia. Pat Richey LPN * Telephone Encounter - George Vázquez MD - 09/18/2024 3:00 PM EST ASSESSMENT/PLAN: 1. COPD (chronic obstructive pulmonary disease) with chronic bronchitis (HCC) - ICD9: 491.20, ICD10: J44.89 (primary diagnosis) - CONSULT TO PULMONARY MEDICINE 2. Acute on chronic respiratory failure with hypoxia (HCC) - ICD9: 518.84, 799.02, ICD10: J96.21 - CONSULT TO PULMONARY MEDICINE 3. Nodule of lower lobe of left lung (low dose lung CT) - ICD9: 793.11, ICD10: R91.1 - CONSULT TO PULMONARY MEDICINE George Vázquez MD * Telephone Encounter - Debbie Portillo RN - 09/18/2024 2:32 PM EST Patient calling for referral to see a new Souvenir Assembler for COPD. Dr. Orellana. . He was seeing Dr. Hall who is no longer @ [facility]. Debbie Portillo RN documented in this encounterCinc[facility]11-20-2024 Telephone encounter Note * Telephone Encounter - George Vázquez MD - 09/18/2024 3:00 PM EST ASSESSMENT/PLAN: 1. COPD (chronic obstructive pulmonary disease) with chronic bronchitis (HCC) - ICD9: 491.20, ICD10: J44.89 (primary diagnosis) - CONSULT TO PULMONARY MEDICINE 2. Acute on chronic respiratory failure with hypoxia (HCC) - ICD9: 518.84, 799.02, ICD10: J96.21 - CONSULT TO PULMONARY MEDICINE 3. Nodule of lower lobe of left lung (low dose lung CT) - ICD9: 793.11, ICD10: R91.1 - CONSULT TO PULMONARY MEDICINE George Vázquez MD [facility]11-20-2024 Telephone encounter Note* Telephone Encounter - Debbie Portillo RN - 09/18/2024 2:32 PM EST Patient calling for referral to see a new Souvenir Assembler for COPD. Dr. Orellana. . He was seeing Dr. Hall who is no longer @ [facility]. Debbie Portillo RN [facility]11-20-2024 Telephone encounter Note* Telephone Encounter - Pat Richey LPN - 09/18/2024 2:19 PM EST Spoke to [facility]/Maryjane, pharmacy is processing RX for Duoneb, Patient has active RX, 1 prescription on file for Duoneb. Pat Richey LPN [facility]11-20-2024 Miscellaneous Notes* Telephone Encounter - Pat Richey LPN - 09/18/2024 2:19 PM EST [facility] Duoneb, Patient has active RX, 1 prescription on file for Duoneb. Pat Richey LPN documented [facility] encounterC[facility] Instructions* Patient Instructions* George Vázquez MD - 09/12/2024 4:48 PM EST Take an extra metoprolol tablet to slow heart rate. documented in this encounterCincinnati [facility]11-14-2024 NoteHNO ID: [id number] Author: GEORGE VÁZQUEZ MD Service: ? Author Type: Physician Type: Progress Notes Filed: 09/12/2024 16:57 Note Text: This note was created using [employer]. Subjective Horace Henderson is a 69 year old male. I saw him for COPD exacerbation one week ago, and he was seen in [facility] the week before that. He continues to feel vaguely ill. His heart rate has been staying elevated when he checked his oximetry at home. He was finishing doxycycline and just got a call from his clinical rehab specialist that he will start Augmentin 2 days after doxycycline. He did another home Covid test which was negative. Review of Systems Constitutional: Positive for fatigue. Negative for chills and fever. HENT: Negative for congestion and sore throat. Respiratory: Positive for cough and shortness of breath. Negative for chest tightness and wheezing. Cardiovascular: Positive for leg swelling. Negative for chest pain and palpitations. Gastrointestinal: Negative for diarrhea, nausea and vomiting. Neurological: Negative for dizziness and light-headedness. ACTIVE PROBLEM LIST Htn (Hypertension) Cad (Coronary Artery Disease) S/P Cabg X 2 Oa (Osteoarthritis) of Knee Hyperlipidemia Tobacco Use Disorder Chronic bronchitis Ddd (Degenerative Disc Disease), Lumbar Failed Cabg (Coronary Artery Bypass Graft) Presence of Drug Coated Stent in Right Coronary Artery Presence of Drug Coated Stent in Left Circumflex Coronary Artery Dupuytren's Contracture of Right Hand Achilles Tendinitis of Both Lower Extremities Nodule of lower lobe of left lung (low dose lung CT) Status Post Insertion of Drug-Eluting Stent into Right Coronary Artery for Coronary Artery Disease Acute On Chronic Respiratory Failure With Hypoxia (Hcc) Gastroesophageal Reflux Disease Social History Tobacco Use Smoking status: Every Day Current packs/day: 0.50 Average packs/day: 0.5 packs/day for 40.2 years (20.1 ttl pk-yrs) Types: Cigarettes, Pipe Start date: 06/17/1984 Smokeless tobacco: Never Vaping Use Vaping status: Never Used Substance Use Topics Alcohol use: Yes Alcohol/week: 9.2 standard drinks of alcohol Types: 4 Standard drinks or equivalent, 4 Mixed Drinks per week Comment: 2 mixed drinks 2 times per week. Drug use: No Frequency: 2.0 times per week Current Outpatient Medications Medication Sig doxycycline (VIBRA-TABS) 100 mg tablet Take 1 tablet by mouth two times a day for 10 days. nystatin (MYCOSTATIN) 100,000 unit/mL suspension Take 5 mL by mouth four times daily. 1tsp swish in mouth for several minutes, then swallow (or expectorate) 4 times daily until gone. Magnesium Oxide 500 mg magnesium tab Take 1 tablet by mouth once daily. albuterol HFA (PROAIR HFA) 90 mcg/actuation inhaler Inhale 2 Puffs as instructed every 6 hours as needed for wheezing/shortness of breath. ipratropium-albuterol (DUONEB) 0.5 mg-3 mg(2.5 mg base)/3 mL nebu Inhale 3 mL as instructed every 6 hours as needed. clopidogrel (PLAVIX) 75 mg tablet Take 1 tablet by mouth once daily. ezetimibe (ZETIA) 10 mg tablet Take 1 tablet by mouth once daily. metoprolol succinate ER (TOPROL XL) 50 mg 24 hr tablet Take 1 tablet by mouth once daily. From [facility]. potassium chloride SR (MICRO-K) 10 mEq CR capsule Take 1 capsule by mouth two times a day. pantoprazole DR (PROTONIX) 20 mg tablet Take 1 tablet by mouth daily before breakfast. Take on empty stomach, 1/2 hr before meal. losartan (COZAAR) 50 mg tablet Take 1 tablet by mouth once daily. Per [facility]. budesonide-formoterol (SYMBICORT) 160-4.5 mcg/actuation inhaler Inhale 2 Puffs as instructed two times a day. furosemide (LASIX) 40 mg tablet Take 1 tablet by mouth once daily. isosorbide mononitrate ER (IMDUR) 30 mg 24 hr tablet Take 30 mg by mouth once daily. No current facility-administered medications for this visit. Objective BP 134/84 (BP Site: Left Arm, BP Position: Sitting, BP Cuff Size: Large Adult) Pulse (!) 130 Temp 37.2 ?C (98.9 ?F) Resp 28 Wt 82.2 kg (181 lb 3.5 oz) SpO2 95% BMI 28.38 kg/m? Physical Exam Constitutional: General: He is not in acute distress. Appearance: He is not diaphoretic. HENT: Head: Normocephalic. Nose: No congestion or rhinorrhea. Cardiovascular: Rate and Rhythm: Regular rhythm. Tachycardia present. Occasional Extrasystoles are present. Heart sounds: S1 normal and S2 normal. No murmur heard. Pulmonary: Effort: No respiratory distress. Breath sounds: No wheezing, rhonchi or rales. Musculoskeletal: Right lower le+ Pitting Edema present. Left lower le+ Pitting Edema present. Neurological: Mental Status: He is alert. EKG RESULTS: sinus tachycardia, RBBB, PACs noted, left axis deviation, rate 117. Similar to previous EKGs. Assessment and Plan 1. Dyspnea, unspecified type - ICD9: 786.09, ICD10: R06.00 (primary diagnosis) - NT PRO BNP 2. Coronary artery disease invol (more content not included)...[facility]11-14-[facility] History of Present illness Narrative* George Vázquez MD - 09/12/2024 4:23 PM EST This note was created using [employer]. Subjective Horace Henderson is a 69 year old male. I saw him for COPD exacerbation one week ago, and he was seen in the week before that. He continues to feel vaguely ill. His heart rate has been staying elevated when he checked his oximetry at home. He was finishing doxycycline and just got a call from his clinical rehab specialist that hewill start Augmentin 2 days after doxycycline. He did another home Covid test which was negative. Review of Systems Constitutional: Positive for fatigue. Negative for chills and fever. HENT: Negative for congestion and sore throat. Respiratory: Positive for cough and shortness of breath. Negative for chest tightness and wheezing. Cardiovascular: Positive for leg swelling. Negative for chest pain and palpitations. Gastrointestinal: Negative for diarrhea, nausea and vomiting. Neurological: Negative for dizziness and light-headedness. ACTIVE PROBLEM LIST Htn (Hypertension) Cad (Coronary Artery Disease) S/P Cabg X 2 Oa (Osteoarthritis) of Knee Hyperlipidemia Tobacco Use Disorder Chronic bronchitis Ddd (Degenerative Disc Disease), Lumbar Failed Cabg (Coronary Artery Bypass Graft) Presence of Drug Coated Stent in Right Coronary Artery Presence of Drug Coated Stent in Left Circumflex Coronary Artery Dupuytren's Contracture of Right Hand Achilles Tendinitis of Both Lower Extremities Nodule of lower lobe of left lung (low dose lung CT) Status Post Insertion of Drug-Eluting Stent into Right Coronary Artery for Coronary Artery Disease Acute On Chronic Respiratory Failure With Hypoxia (Hcc) Gastroesophageal Reflux Disease Social History Tobacco Use Smoking status: Every Day Current packs/day: 0.50 Average packs/day: 0.5 packs/day for 40.2 years (20.1 ttl pk-yrs) Types: Cigarettes, Pipe Start date: 06/17/1984 Smokeless tobacco: Never Vaping Use Vaping status: Never Used Substance Use Topics Alcohol use: Yes Alcohol/week: 9.2 standard drinks of alcohol Types: 4 Standard drinks or equivalent, 4 Mixed Drinks per week Comment: 2 mixed drinks 2 times per week. Drug use: No Frequency: 2.0 times per week Current Outpatient Medications Medication Sig doxycycline (VIBRA-TABS) 100 mg tablet Take 1 tablet by mouth two times a day for 10 days. nystatin (MYCOSTATIN) 100,000 unit/mL suspension Take 5 mL by mouth four times daily. 1tsp swish inmouth for several minutes, then swallow (or expectorate) 4 times daily until gone. Magnesium Oxide 500 mg magnesium tab Take 1 tablet by mouth once daily. albuterol HFA (PROAIR HFA) 90 mcg/actuation inhaler Inhale 2 Puffs as instructed every 6 hours as needed for wheezing/shortness of breath. ipratropium-albuterol (DUONEB) 0.5 mg-3 mg(2.5 mg base)/3 mL nebu Inhale 3 mL as instructed every 6hours as needed. clopidogrel (PLAVIX) 75 mg tablet Take 1 tablet by mouth once daily. ezetimibe (ZETIA) 10 mg tablet Take 1 tablet by mouth once daily. metoprolol succinate ER (TOPROL XL) 50 mg 24 hr tablet Take 1 tablet by mouth once daily. From [facility]. potassium chloride SR (MICRO-K) 10 mEq CR capsule Take 1 capsule by mouth two times a day. pantoprazole DR (PROTONIX) 20 mg tablet Take 1 tablet by mouth daily before breakfast. Take on empty stomach, 1/2 hr before meal. losartan (COZAAR) 50 mg tablet Take 1 tablet by mouth once daily. Per [facility]. budesonide-formoterol (SYMBICORT) 160-4.5 mcg/actuation inhaler Inhale 2 Puffs as instructed two times a day. furosemide (LASIX) 40 mg tablet Take 1 tablet by mouth once daily. isosorbide mononitrate ER (IMDUR) 30 mg 24 hr tablet Take 30 mg by mouth once daily. No current facility-administered medications for this visit. Objective BP 134/84 (BP Site: Left Arm, BP Position: Sitting, BP Cuff Size: Large Adult) Pulse (!) 130 Temp 37.2 C (98.9 F) Resp 28 Wt 82.2 kg (181 lb 3.5 oz) SpO2 95% BMI 28.38 kg/m Physical Exam Constitutional: General: He is not in acute distress. Appearance: He is not diaphoretic. HENT: Head: Normocephalic. Nose: No congestion or rhinorrhea. Cardiovascular: Rate and Rhythm: Regular rhythm. Tachycardia present. Occasional Extrasystoles are present. Heart sounds: S1 normal and S2 normal. No murmur heard. Pulmonary: Effort: No respiratory distress. Breath sounds: No wheezing, rhonchi or rales. Musculoskeletal: Right lower le+ Pitting Edema present. Left lower le+ Pitting Edema present. Neurological: Mental Status: He is alert. EKG RESULTS: sinus tachycardia, RBBB, PACs noted, left axis deviation, rate 117. Similar to previous EKGs. Assessment and Plan 1. Dyspnea, unspecified type - ICD9: 786.09, ICD10: R06.00 (primary diagnosis) - NT PRO BNP 2. Coronary artery disease involving [place] coronary artery of [place] heart without angina pectoris- ICD9: 414.01, ICD10: I25.10 - Advised ER if worse. - ECG COMPLETE - NT PRO BNP 3. COPD (chronic obstructive pulmonary disease) with chronic bronchitis (HCC) - ICD9: 491.20, ICD10: J44.89 - Stable. 4. Sinus tachycardia - ICD9: 427.89, ICD10: R00.0 - Hydration stressed. He also ran out of metoprolol for a few days. Shared medical decision making and he agreed to take one extra metoprolol today. - COMPLETE BLOOD COUNT - BASIC METABOLIC PANEL George Vázquez MD documented in this encounterC[facility]11-[facility]-2024 NotePatient Outreach (PULMMN) BEATRIZHORACE MARCOS ([id number]) 1955 M Date Time Provider Department 09/09/24 SARAH CARTER During your visit today, we recorded the following information about you: Allergies As of Date: 09/09/2024 Noted Allergy Reaction LEVOFLOXACIN 06/01/2020 14 - Other: See Comments Comments: Tachycardia. Achilles tendonitis. Date Reviewed: 08/30/2024 Reviewed by: Prateek Matos APRN.WIRE DRAWING SETTER - Fully Assessed Visit Diagnosis:Tobacco abuse [Z72.0] Order(s):[facility] [[id number]] Order #: [id number]: 1 FUTURE Prescriptions as of 09/12/2024 - doxycycline (VIBRA-TABS) 100 mg tablet Take 1 tablet by mouth two times a day for 10 days. - nystatin (MYCOSTATIN) 100,000 unit/mL suspension Take 5 mL by mouth four times daily. 1tsp swish in mouth for several minutes, then swallow (or expectorate) 4 times daily until gone. - Magnesium Oxide 500 mg magnesium tab Take 1 tablet by mouth once daily. - albuterol HFA (PROAIR HFA) 90 mcg/actuation inhaler Inhale 2 Puffs as instructed every 6 hours as needed for wheezing/shortness of breath. - ipratropium-albuterol (DUONEB) 0.5 mg-3 mg(2.5 mg base)/3 mL nebu Inhale 3 mL as instructed every 6 hours as needed. - clopidogrel (PLAVIX) 75 mg tablet Take 1 tablet by mouth once daily. - ezetimibe (ZETIA) 10 mg tablet Take 1 tablet by mouth once daily. - metoprolol succinate ER (TOPROL XL) 50 mg 24 hr tablet Take 1 tablet by mouth once daily. From [facility]. - potassium chloride SR (MICRO-K) 10 mEq CR capsule Take 1 capsule by mouth two times a day. - pantoprazole DR (PROTONIX) 20 mg tablet Take 1 tablet by mouth daily before breakfast. Take on empty stomach, 1/2 hr before meal. - losartan (COZAAR) 50 mg tablet Take 1 tablet by mouth once daily. [facility]. - budesonide-formoterol (SYMBICORT) 160-4.5 mcg/actuation inhaler Inhale 2 Puffs as instructed two times a day. - furosemide (LASIX) 40 mg tablet Take 1 tablet by mouth once daily. - isosorbide mononitrate ER (IMDUR) 30 mg 24 hr tablet Take 30 mg by mouth once daily. Problem List As Of Date 09/09/2024 Noted Resolved HTN (hypertension) [I10] 01/11/2012 CAD (coronary artery disease) [I25.10] 01/11/2012 S/P CABG x 2 [Z95.1] 10/14/1995 OA (osteoarthritis) of knee [M17.9] 05/08/2012 Diverticulitis [K57.92] 01/09/2014 Sciatica [M54.30] 06/21/2012 04/29/2015 Hyperlipidemia [E78.5] 08/04/2012 Perforated diverticulum of large intestine [K57*08/20/2012 10/27/2012 Tobacco use disorder [F17.200] 10/27/2012 Chronic bronchitis [J42] 10/07/2013 Primary localized osteoarthrosis, lower leg [M1*11/04/2013 04/29/2015 Knee 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 [Z96.659] 11/04/2013 04/29/2015 Lumbar radiculopathy [M54.16] 12/13/2013 04/17/2018 DDD (degenerative disc disease), lumbar [M51.36*12/13/2013 Lumbar disc displacement without myelopathy [M5*04/04/2014 04/17/2018 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*05/08/2015 Presence of drug coated stent in right coronary*05/08/2015 Presence of drug coated stent in left circumfle*05/08/2015 Dupuytren's contracture of right hand [M72.0] 11/05/2015 Tobacco abuse [Z72.0] 11/06/2015 11/15/2016 Essential hypertension [I10] 11/10/2016 11/15/2016 Achilles tendinitis of both lower extremities [*06/23/2020 Nodule of lower lobe of left lung (low dose severino*05/05/2021 Status post insertion of drug-eluting stent int*09/30/2021 Acute on chronic respiratory failure with hypox*10/30/2022 Gastroesophageal reflux disease [K21.9] 05/24/2023 Encounter Status:Closed by IZA SAMR on 09/12/24[facility] 09-04-2024 NoteHNO ID: [id number] Author: GEORGE VÁZQUEZ MD Service: ? Author Type: Physician Type: Progress Notes Filed: 09/04/2024 16:10 Note Text: This note was created using [employer]. Subjective Horace Henderson is a 69 year old male. He developed nasal congestion, fatigue, productive cough and dyspnea 2 weeks ago. He was seen in and treated with a Zpak with temporary relief. He went back to 08/30 and chest X-ray was negative for pneumonia. He was given prednisone with less relief. He was taking his inhalers. Review of Systems Constitutional: Negative for chills, diaphoresis and fever. HENT: Positive for rhinorrhea. Negative for sinus pain and sore throat. Respiratory: Positive for cough, shortness of breath and wheezing. Cardiovascular: Positive for leg swelling. Negative for chest pain and palpitations. Gastrointestinal: Negative for diarrhea, nausea and vomiting. Musculoskeletal: Negative for myalgias. ACTIVE PROBLEM LIST Htn (Hypertension) Cad (Coronary Artery Disease) S/P Cabg X 2 Oa (Osteoarthritis) of Knee Hyperlipidemia Tobacco Use Disorder Chronic bronchitis Ddd (Degenerative Disc Disease), Lumbar Failed Cabg (Coronary Artery Bypass Graft) Presence of Drug Coated Stent in Right Coronary Artery Presence of Drug Coated Stent in Left Circumflex Coronary Artery Dupuytren's Contracture of Right Hand Achilles Tendinitis of Both Lower Extremities Nodule of lower lobe of left lung (low dose lung CT) Status Post Insertion of Drug-Eluting Stent into Right Coronary Artery for Coronary Artery Disease Acute On Chronic Respiratory Failure With Hypoxia (Hcc) Gastroesophageal Reflux Disease Social History Tobacco Use Smoking status: Every Day Current packs/day: 0.50 Average packs/day: 0.5 packs/day for 40.2 years (20.1 ttl pk-yrs) Types: Cigarettes, Pipe Start date: 06/17/1984 Smokeless tobacco: Never Vaping Use Vaping status: Never Used Substance Use Topics Alcohol use: Yes Alcohol/week: 9.2 standard drinks of alcohol Types: 4 Standard drinks or equivalent, 4 Mixed Drinks per week Comment: 2 mixed drinks 2 times per week. Drug use: No Frequency: 2.0 times per week Current Outpatient Medications Medication Sig predniSONE (DELTASONE) 10 mg tablet Take 4 tablets by mouth once daily for 5 days. nystatin (MYCOSTATIN) 100,000 unit/mL suspension Take 5 mL by mouth four times daily. 1tsp swish in mouth for several minutes, then swallow (or expectorate) 4 times daily until gone. Magnesium Oxide 500 mg magnesium tab Take 1 tablet by mouth once daily. albuterol HFA (PROAIR HFA) 90 mcg/actuation inhaler Inhale 2 Puffs as instructed every 6 hours as needed for wheezing/shortness of breath. ipratropium-albuterol (DUONEB) 0.5 mg-3 mg(2.5 mg base)/3 mL nebu Inhale 3 mL as instructed every 6 hours as needed. clopidogrel (PLAVIX) 75 mg tablet Take 1 tablet by mouth once daily. ezetimibe (ZETIA) 10 mg tablet Take 1 tablet by mouth once daily. metoprolol succinate ER (TOPROL XL) 50 mg 24 hr tablet Take 1 tablet by mouth once daily. From [facility]. potassium chloride SR (MICRO-K) 10 mEq CR capsule Take 1 capsule by mouth two times a day. pantoprazole DR (PROTONIX) 20 mg tablet Take 1 tablet by mouth daily before breakfast. Take on empty stomach, 1/2 hr before meal. losartan (COZAAR) 50 mg tablet Take 1 tablet by mouth once daily. Per [facility]. budesonide-formoterol (SYMBICORT) 160-4.5 mcg/actuation inhaler Inhale 2 Puffs as instructed two times a day. furosemide (LASIX) 40 mg tablet Take 1 tablet by mouth once daily. isosorbide mononitrate ER (IMDUR) 30 mg 24 hr tablet Take 30 mg by mouth once daily. No current facility-administered medications for this visit. Objective BP 128/74 (BP Site: Left Arm, BP Position: Sitting, BP Cuff Size: Large Adult) Pulse 96 Temp 37.1 ?C (98.8 ?F) (Temporal) Resp 20 Wt 82.9 kg (182 lb 12.2 oz) SpO2 91% BMI 28.62 kg/m? Physical Exam Constitutional: General: He is not in acute distress. Appearance: He is not ill-appearing or diaphoretic. HENT: Nose: No congestion or rhinorrhea. Mouth/Throat: Mouth: Mucous membranes are moist. Pharynx: Oropharynx is clear. Eyes: Conjunctiva/sclera: Conjunctivae normal. Cardiovascular: Rate and Rhythm: Normal rate and regular rhythm. Heart sounds: No murmur heard. No gallop. Pulmonary: Breath sounds: Examination of the right-lower field reveals wheezing and rhonchi. Wheezing and rhonchi present. No rales. Abdominal: Tenderness: There is no abdominal tenderness. Musculoskeletal: Right lower le+ Pitting Edema present. Left lower le+ Pitting Edema present. Lymphadenopathy: Cervical: No cervical adenopathy. Neurological: Mental Status: He is alert. Assessment and Plan 1. COPD with exacerbation (HCC) - ICD9: 491.21, ICD10: J44.1 (primary diagnosis) - DOXYCYCLINE HYCLATE 100 MG TABLET 2. Coronary artery disease involvi (more content not included)...[facility]11-06-2024 History of Present illness Narrative* George Vázquez MD - 09/04/2024 3:35 PM EST This note was created using [employer]. Subjective Horace Henderson is a 69 year old male. He developed nasal congestion, fatigue, productive cough and dyspnea 2 weeks ago. He was seen in and treated with a Zpak with temporary relief. He went backto 08/30 and chest X-ray was negative for pneumonia. He was given prednisone with less relief. Hewas taking his inhalers. Review of Systems Constitutional: Negative for chills, diaphoresis and fever. HENT: Positive for rhinorrhea. Negative for sinus pain and sore throat. Respiratory: Positive for cough, shortness of breath and wheezing. Cardiovascular: Positive for leg swelling. Negative for chest pain and palpitations. Gastrointestinal: Negative for diarrhea, nausea and vomiting. Musculoskeletal: Negative for myalgias. ACTIVE PROBLEM LIST Htn (Hypertension) Cad (Coronary Artery Disease) S/P Cabg X 2 Oa (Osteoarthritis) of Knee Hyperlipidemia Tobacco Use Disorder Chronic bronchitis Ddd (Degenerative Disc Disease), Lumbar Failed Cabg (Coronary Artery Bypass Graft) Presence of Drug Coated Stent in Right Coronary Artery Presence of Drug Coated Stent in Left Circumflex Coronary Artery Dupuytren's Contracture of Right Hand Achilles Tendinitis of Both Lower Extremities Nodule of lower lobe of left lung (low dose lung CT) Status Post Insertion of Drug-Eluting Stent into Right Coronary Artery for Coronary Artery Disease Acute On Chronic Respiratory Failure With Hypoxia (Hcc) Gastroesophageal Reflux Disease Social History Tobacco Use Smoking status: Every Day Current packs/day: 0.50 Average packs/day: 0.5 packs/day for 40.2 years (20.1 ttl pk-yrs) Types: Cigarettes, Pipe Start date: 06/17/1984 Smokeless tobacco: Never Vaping Use Vaping status: Never Used Substance Use Topics Alcohol use: Yes Alcohol/week: 9.2 standard drinks of alcohol Types: 4 Standard drinks or equivalent, 4 Mixed Drinks per week Comment: 2 mixed drinks 2 times per week. Drug use: No Frequency: 2.0 times per week Current Outpatient Medications Medication Sig predniSONE (DELTASONE) 10 mg tablet Take 4 tablets by mouth once daily for 5 days. nystatin (MYCOSTATIN) 100,000 unit/mL suspension Take 5 mL by mouth four times daily. 1tsp swish inmouth for several minutes, then swallow (or expectorate) 4 times daily until gone. Magnesium Oxide 500 mg magnesium tab Take 1 tablet by mouth once daily. albuterol HFA (PROAIR HFA) 90 mcg/actuation inhaler Inhale 2 Puffs as instructed every 6 hours as needed for wheezing/shortness of breath. ipratropium-albuterol (DUONEB) 0.5 mg-3 mg(2.5 mg base)/3 mL nebu Inhale 3 mL as instructed every 6hours as needed. clopidogrel (PLAVIX) 75 mg tablet Take 1 tablet by mouth once daily. ezetimibe (ZETIA) 10 mg tablet Take 1 tablet by mouth once daily. metoprolol succinate ER (TOPROL XL) 50 mg 24 hr tablet Take 1 tablet by mouth once daily. From [facility]. potassium chloride SR (MICRO-K) 10 mEq CR capsule Take 1 capsule by mouth two times a day. pantoprazole DR (PROTONIX) 20 mg tablet Take 1 tablet by mouth daily before breakfast. Take on empty stomach, 1/2 hr before meal. losartan (COZAAR) 50 mg tablet Take 1 tablet by mouth once daily. Per [facility]. budesonide-formoterol (SYMBICORT) 160-4.5 mcg/actuation inhaler Inhale 2 Puffs as instructed two times a day. furosemide (LASIX) 40 mg tablet Take 1 tablet by mouth once daily. isosorbide mononitrate ER (IMDUR) 30 mg 24 hr tablet Take 30 mg by mouth once daily. No current facility-administered medications for this visit. Objective BP 128/74 (BP Site: Left Arm, BP Position: Sitting, BP Cuff Size: Large Adult) Pulse 96 Temp 37.1 C (98.8 F) (Temporal) Resp 20 Wt 82.9 kg (182 lb 12.2 oz) SpO2 91% BMI 28.62 kg/m Physical Exam Constitutional: General: He is not in acute distress. Appearance: He is not ill-appearing or diaphoretic. HENT: Nose: No congestion or rhinorrhea. Mouth/Throat: Mouth: Mucous membranes are moist. Pharynx: Oropharynx is clear. Eyes: Conjunctiva/sclera: Conjunctivae normal. Cardiovascular: Rate and Rhythm: Normal rate and regular rhythm. Heart sounds: No murmur heard. No gallop. Pulmonary: Breath sounds: Examination of the right-lower field reveals wheezing and rhonchi. Wheezing and rhonchi present. No rales. Abdominal: Tenderness: There is no abdominal tenderness. Musculoskeletal: Right lower le+ Pitting Edema present. Left lower le+ Pitting Edema present. Lymphadenopathy: Cervical: No cervical adenopathy. Neurological: Mental Status: He is alert. Assessment and Plan 1. COPD with exacerbation (HCC) - ICD9: 491.21, ICD10: J44.1 (primary diagnosis) - DOXYCYCLINE HYCLATE 100 MG TABLET 2. Coronary artery disease involving [place] coronary artery of [place] heart without angina pectoris- ICD9: 414.01, ICD10: I25.10 - Stable. If not better, see his clinical rehab specialist at [place]. George Vázquez MD documented in this encounterC[facility]11-[facility] Telephone encounter Note * Telephone Encounter - Pat Richey LPN - 09/04/2024 2:32 PM EST Patient notified, appt scheduled. Pat Richey LPN [facility]11-06-2024 Miscellaneous Notes* Telephone Encounter - Pat Richey LPN - 09/04/2024 2:32 PM EST Patient notified, appt scheduled. Pat Richey LPN * Telephone Encounter - Blanca Tilley APRN.CNP - 09/04/2024 1:54 PM EST Needs appointment Blanca Tilley APRN.HORTENCIA * Telephone Encounter - Adele Jarvis LPN - 09/04/2024 1:47 PM EST Patient calling, he was in UC twice last week. He was given a zpak at the first visit which seemed to take care of the pneumonia and he stopped coughing up green phlegm. Then at his second visit was prescribed prednisone. He has completed both prescriptions and still coughing. Now the phlegm has turned back to green. Asking if he should have another round of antibiotics. Patient uses [facility]Please advise. documented in this encounterC[facility] Telephone encounter Note * Telephone Encounter - Blanca Tilley APRN.CNP - 09/04/2024 1:54 PM EST Needs appointment Blanca Tilley APRN.CNP [facility]11-06-2024 Telephone encounter Note* Telephone Encounter - Adele Jarvis LPN - 09/04/2024 1:47 PM EST Patient calling, he was in UC twice last week. He was given a zpak at the first visit which seemed to take care of the pneumonia and he stopped coughing up green phlegm. Then at his second visit was prescribed prednisone. He has completed both prescriptions and still coughing. Now the phlegm has turned back to green. Asking if he should have another round of antibiotics. Patient uses [facility]Please advise. [facility]11-01-2024 History of Present illness Narrative* Jason Lobato RT(R) - 08/30/2024 11:00 AM EDT Radiology Service Progress Note PATIENT NAME: Horace Henderson DATE OF SERVICE: August 30, 2024 TIME: 10:56 AM PATIENT IDENTITY VERIFICATION COMPLETED USING TWO (2) IDENTIFIERS: Name and Date of confirmedby patient verbally. FALL SCREENING: Has the patient had 2 falls in the last year or 1 fall with injury or currently using an Ambulatory Assistive Device (Walker, Cane, Wheelchair, Crutches, etc.)? No PATIENT GENDER DATA: Male PATIENT RELEVANT IMPLANT DATA REVIEWED: Not Applicable PATIENT PRESENTS WITH AN IMPLANTABLE OR ATTACHED LITHARGE MILL OPERATOR: No RADIOLOGY DEPARTMENT: General X-ray: Exam(s) Completed: Chest X-Ray PERIPHERAL IV DATA: Not applicable SIGNED BY: QUINTEN Mitchell) August 30, 2024 10:56 AM documented in this encounterCincinnati [facility]11-01-2024 NoteHNO ID: [id number] Author: JASON LOBATO RT(R) Service: ? Author Type: Technologist Type: Progress Notes Filed: 08/30/2024 11:06 Note Text: Radiology Service Progress Note PATIENT NAME: Horace Henderson DATE OF SERVICE: August 30, 2024 TIME: 10:56 AM PATIENT IDENTITY VERIFICATION COMPLETED USING TWO (2) IDENTIFIERS: Name and Date of confirmed by patient verbally. FALL SCREENING: Has the patient had 2 falls in the last year or 1 fall with injury or currently using an Ambulatory Assistive Device (Walker, Cane, Wheelchair, Crutches, etc.)? No PATIENT GENDER DATA: Male PATIENT RELEVANT IMPLANT DATA REVIEWED: Not Applicable PATIENT PRESENTS WITH AN IMPLANTABLE OR ATTACHED LITHARGE MILL OPERATOR: No RADIOLOGY DEPARTMENT: General X-ray: Exam(s) Completed: Chest X-Ray PERIPHERAL IV DATA: Not applicable SIGNED BY: Jason Lobato RT(R) August 30, 2024 10:[address] [facility]11-01-2024 NoteHNO ID: [id number] Author: PRATEEK MATOS APRN.WIRE DRAWING SETTER Service: ? Author Type: Nurse Practitioner Type: Progress Notes Filed: 08/30/2024 12:15 Note Text: Subjective HPI Nontoxic-appearing male presents urgent care chief complaint chest congestion increased shortness of breath and wheezing. Duration of symptoms 8 days. Associated symptoms listed above. Was seen previously on 25 August. Placed on azithromycin. States cough is improved but wheezing and chest congestion has stayed present. History of COPD. Is a smoker. Denies any chest pain or hemoptysis. Increased shortness of breath with ambulation. No fevers. Past medical history prescription medications allergies reviewed. .Patient presents with: Cough: Chest congestion, increase in SOB, wheeze, x weeks Finished zpack 10-31 PAST MEDICAL HISTORY Diagnosis Date Achilles tendinitis of both lower extremities 06/23/2020 Acute on chronic respiratory failure with hypoxia (HCC) 10/30/2022 Arthritis Asthma CAD (coronary artery disease) 01/11/2012 Chronic bronchitis (HCC) 10/07/2013 06/17/2014 EOR215% predicted. COPD (chronic obstructive pulmonary disease) (HCC) COVID-19 07/05/2022 DDD (degenerative disc disease), lumbar 12/13/2013 Diverticulitis 08/12/2012 Perforated HTN (hypertension) 01/11/2012 Hyperlipidemia 08/04/2012 Lumbar disc displacement without myelopathy 04/04/2014 Nodule of lower lobe of left lung (low dose lung CT) 05/05/2021 Perforated diverticulum of large intestine 08/20/2012 S/P CABG x 2 10/14/1995 Status post insertion of drug-eluting stent into right coronary artery for coronary artery disease 09/30/2021 Tobacco use disorder 10/27/2012 PAST SURGICAL HISTORY Procedure Laterality Date ANESTH OPEN/SURG ARTHRS TOTAL KNEE ARTHROPLASTY 10/10/2013 LEFT APPENDEC INDICATED PURPOSE OTH MAJOR PX NOT SPX 08/12/2012 CABG (2) VEIN GRAFTS AND ARTERIAL GRAFT(S 10/14/1996 SVG to diagonal. STEPHENS to LAD. [facility]. CC CORONARY STENT 09/29/2021 Biotronik 2.5x22 mm to distal RCA, biotronik 3.0 x 30 mm to proximal RCA COLECTOMY PARTIAL W/ANASTOMOSIS 08/12/2012 COLONOSCOPY FLX DX W/COLLJ SPEC WHEN PFRMD 07/12/2012 Colonoscopy COLONOSCOPY FLX DX W/COLLJ SPEC WHEN PFRMD 06/22/2021 COLONOSCOPY SCREENING 12/28/2022 cecal adenoma, repeat 5 years CYSTOURETHROSCOPY 2007 Cystoscopy EGD BIOPSY SING OR MULT 12/28/2022 ESOPHAGOGASTRODUODENOSCOPY TRANSORAL DIAGNOSTIC 03/23/2021 ESOPHAGOGASTRODUODENOSCOPY TRANSORAL DIAGNOSTIC 06/22/2021 EYE SURGERY HX LAP; SURGICAL W/CHOLECYSTECTOMY AND CHOLANGI 12/02/2022 PAST SURGICAL HISTORY OF 01/05/2006 stents cardiac x 6, joseph vega, 2 year intervals REVISE MEDIAN N/CARPAL TUNNEL SURG Right 11/19/2020 Right carpal tunnel syndrome REVISE MEDIAN N/CARPAL TUNNEL SURG Left 12/17/2020 Left carpal tunnel release SKIN BIOPSY HX TONSILLECTOMY HX 1965 VASCULAR SURGERY PROCEDURE ALLERGIES Levofloxacin MEDICATIONS nystatin (MYCOSTATIN) 100,000 unit/mL suspension Take 5 mL by mouth four times daily. 1tsp swish in mouth for several minutes, then swallow (or expectorate) 4 times daily until gone. Magnesium Oxide 500 mg magnesium tab Take 1 tablet by mouth once daily. albuterol HFA (PROAIR HFA) 90 mcg/actuation inhaler Inhale 2 Puffs as instructed every 6 hours as needed for wheezing/shortness of breath. ipratropium-albuterol (DUONEB) 0.5 mg-3 mg(2.5 mg base)/3 mL nebu Inhale 3 mL as instructed every 6 hours as needed. clopidogrel (PLAVIX) 75 mg tablet Take 1 tablet by mouth once daily. ezetimibe (ZETIA) 10 mg tablet Take 1 tablet by mouth once daily. metoprolol succinate ER (TOPROL XL) 50 mg 24 hr tablet Take 1 tablet by mouth once daily. From [facility]. potassium chloride SR (MICRO-K) 10 mEq CR capsule Take 1 capsule by mouth two times a day. pantoprazole DR (PROTONIX) 20 mg tablet Take 1 tablet by mouth daily before breakfast. Take on empty stomach, 1/2 hr before meal. losartan (COZAAR) 50 mg tablet Take 1 tablet by mouth once daily. Per [facility]. budesonide-formoterol (SYMBICORT) 160-4.5 mcg/actuation inhaler Inhale 2 Puffs as instructed two times a day. furosemide (LASIX) 40 mg tablet Take 1 tablet by mouth once daily. isosorbide mononitrate ER (IMDUR) 30 mg 24 hr tablet Take 30 mg by mouth once daily. azithromycin (ZITHROMAX) 250 mg tablet Take 2 tablets by mouth once daily for 1 day, THEN 1 tablet once daily for 4 days. (Patient not taking: Reported on 08/30/2024) FAMILY HISTORY Problem Relation Age of Onset None Mother Coronary Artery Disease Father 79 stent placed Hypertension Brother Cancer Maternal Grandfather 70 pancreatic Heart disease Paternal Grandmother Social History Tobacco Use Smoking status: Every Day Current packs/day: 0.50 Average packs/day: 0.5 packs/day for 40.2 years (20.1 ttl pk-yrs) Types: Cigarettes, Pipe Start date: 06/17/1984 Smokeless tobacco: Never Vaping Use Vaping (more content not included)...[facility]11-01-2024 History of Present illness Narrative* Prateek Matos APRN.WIRE DRAWING SETTER - 08/30/2024 10:42 AM EDT Subjective HPI Nontoxic-appearing male presents urgent care chief complaint chest congestion increased shortness of breath and wheezing. Duration of symptoms 8 days. Associated symptoms listed above. Was seen previously on 25 August. Placed on azithromycin. States cough is improved but wheezing and chest congestion has stayed present. History of COPD. Is a smoker. Denies any chest pain or hemoptysis. Increasedshortness of breath with ambulation. No fevers. Past medical history prescription medications allergies reviewed. .Patient presents with: Cough: Chest congestion, increase in SOB, wheeze, x weeks Finished rubypack 10 PAST MEDICAL HISTORY Diagnosis Date Achilles tendinitis of both lower extremities 06/23/2020 Acute on chronic respiratory failure with hypoxia (HCC) 10/30/2022 Arthritis Asthma CAD (coronary artery disease) 01/11/2012 Chronic bronchitis (HCC) 10/07/2013 06/17/2014 [id number]% predicted. COPD (chronic obstructive pulmonary disease) (HCC) COVID-19 07/05/2022 DDD (degenerative disc disease), lumbar 12/13/2013 Diverticulitis 08/12/2012 Perforated HTN (hypertension) 01/11/2012 Hyperlipidemia 08/04/2012 Lumbar disc displacement without myelopathy 04/04/2014 Nodule of lower lobe of left lung (low dose lung CT) 05/05/2021 Perforated diverticulum of large intestine 08/20/2012 S/P CABG x 2 10/14/1995 Status post insertion of drug-eluting stent into right coronary artery for coronary artery disease 09/30/2021 Tobacco use disorder 10/27/2012 PAST SURGICAL HISTORY Procedure Laterality Date ANESTH OPEN/SURG ARTHRS TOTAL KNEE ARTHROPLASTY 10/10/2013 LEFT APPENDEC INDICATED PURPOSE OTH MAJOR PX NOT SPX 08/12/2012 CABG (2) VEIN GRAFTS & ARTERIAL GRAFT(S 10/14/1996 SVG to diagonal. STEPHENS to LAD. [facility]. CC CORONARY STENT 09/29/2021 Biotronik 2.5x22 mm to distal RCA, biotronik 3.0 x 30 mm to proximal RCA COLECTOMY PARTIAL W/ANASTOMOSIS 08/12/2012 COLONOSCOPY FLX DX W/COLLJ SPEC WHEN PFRMD 07/12/2012 Colonoscopy COLONOSCOPY FLX DX W/COLLJ SPEC WHEN PFRMD 06/22/2021 COLONOSCOPY SCREENING 12/28/2022 cecal adenoma, repeat 5 years CYSTOURETHROSCOPY 2007 Cystoscopy EGD BIOPSY SING OR MULT 12/28/2022 ESOPHAGOGASTRODUODENOSCOPY TRANSORAL DIAGNOSTIC 03/23/2021 ESOPHAGOGASTRODUODENOSCOPY TRANSORAL DIAGNOSTIC 06/22/2021 EYE SURGERY HX LAP; SURGICAL W/CHOLECYSTECTOMY & CHOLANGI 12/02/2022 PAST SURGICAL HISTORY OF 01/05/2006 stents cardiac x 6, joseph vega, 2 year intervals REVISE MEDIAN N/CARPAL TUNNEL SURG Right 11/19/2020 Right carpal tunnel syndrome REVISE MEDIAN N/CARPAL TUNNEL SURG Left 12/17/2020 Left carpal tunnel release SKIN BIOPSY HX TONSILLECTOMY HX 1965 VASCULAR SURGERY PROCEDURE ALLERGIES Levofloxacin MEDICATIONS nystatin (MYCOSTATIN) 100,000 unit/mL suspension Take 5 mL by mouth four times daily. 1tsp swish inmouth for several minutes, then swallow (or expectorate) 4 times daily until gone. Magnesium Oxide 500 mg magnesium tab Take 1 tablet by mouth once daily. albuterol HFA (PROAIR HFA) 90 mcg/actuation inhaler Inhale 2 Puffs as instructed every 6 hours as needed for wheezing/shortness of breath. ipratropium-albuterol (DUONEB) 0.5 mg-3 mg(2.5 mg base)/3 mL nebu Inhale 3 mL as instructed every 6hours as needed. clopidogrel (PLAVIX) 75 mg tablet Take 1 tablet by mouth once daily. ezetimibe (ZETIA) 10 mg tablet Take 1 tablet by mouth once daily. metoprolol succinate ER (TOPROL XL) 50 mg 24 hr tablet Take 1 tablet by mouth once daily. From [facility]. potassium chloride SR (MICRO-K) 10 mEq CR capsule Take 1 capsule by mouth two times a day. pantoprazole DR (PROTONIX) 20 mg tablet Take 1 tablet by mouth daily before breakfast. Take on empty stomach, 1/2 hr before meal. losartan (COZAAR) 50 mg tablet Take 1 tablet by mouth once daily. Per [facility]. budesonide-formoterol (SYMBICORT) 160-4.5 mcg/actuation inhaler Inhale 2 Puffs as instructed two times a day. furosemide (LASIX) 40 mg tablet Take 1 tablet by mouth once daily. isosorbide mononitrate ER (IMDUR) 30 mg 24 hr tablet Take 30 mg by mouth once daily. azithromycin (ZITHROMAX) 250 mg tablet Take 2 tablets by mouth once daily for 1 day, THEN 1 tablet once daily for 4 days. (Patient not taking: Reported on 08/30/2024) FAMILY HISTORY Problem Relation Age of Onset None Mother Coronary Artery Disease Father 79 stent placed Hypertension Brother Cancer Maternal Grandfather 70 pancreatic Heart disease Paternal Grandmother Social History Tobacco Use Smoking status: Every Day Current packs/day: 0.50 Average packs/day: 0.5 packs/day for 40.2 years (20.1 ttl pk-yrs) Types: Cigarettes, Pipe Start date: 06/17/1984 Smokeless tobacco: Never Vaping Use Vaping status: Never Used Substance Use Topics Alcohol use: Yes Alcohol/week: 9.2 standard drinks of alcohol Types: 4 Standard drinks or equivalent, 4 Mixed Drinks per week Comment: 2 mixed drinks 2 times per week. Drug use: No Frequency: 2.0 times per week BP 130/78 Pulse 106 Temp 36.6 C (97.8 F) Resp 24 Wt 82 kg (180 lb 12.4 oz) SpO2 94% BMI28.31 kg/m Hr 90 Review of Systems Constitutional: Negative for chills, fever and malaise/fatigue. HENT: Positive for congestion. Negative for ear discharge, ear pain, sinus pain and sore throat. Eyes: Negative for blurred vision, pain, discharge and redness. Respiratory: Positive for cough, sputum production, shortness of breath and wheezing. Negative for hemoptysis and stridor. Cardiovascular: Negative for chest pain. Gastrointestinal: Negative for abdominal pain, diarrhea, nausea and vomiting. Musculoskeletal: Negative for myalgias. Skin: Negative for itching and rash. Neurological: Negative for dizziness and headaches. Objective Physical Exam Constitutional: General: He is not in acute distress. Appearance: He is not diaphoretic. HENT: Head: Normocephalic. Jaw: No trismus, tenderness, swelling or pain on movement. Nose: Congestion present. Mouth/Throat: Mouth: Mucous membranes are moist. Pharynx: Oropharynx is clear. Uvula midline. No pharyngeal swelling, oropharyngeal exudate, posterior oropharyngeal erythema or uvula swelling. Eyes: Conjunctiva/sclera: Conjunctivae normal. Pupils: Pupils are equal, round, and reactive to light. Cardiovascular: Rate and Rhythm: Normal rate and regular rhythm. Heart sounds: Normal heart sounds. Pulmonary: Effort: Pulmonary effort is normal. No tachypnea, accessory muscle usage or respiratory distress. Breath sounds: No stridor. Wheezing present. No rhonchi or rales. Abdominal: General: There is no distension. Palpations: Abdomen is soft. Tenderness: There is no abdominal tenderness. There is no guarding or rebound. Musculoskeletal: Cervical back: Normal range of motion and neck supple. No edema, erythema, rigidity or tenderness. No pain with movement. Normal range of motion. Lymphadenopathy: Cervical: No cervical adenopathy. Skin: General: Skin is warm and dry. Neurological: Mental Status: He is alert and oriented to person, place, and time. ASSESSMENT/PLAN: 1. Subacute cough - ICD9: 786.2, ICD10: R05.2 (primary diagnosis) - XR CHEST 2V FRONTAL/LAT 2. COPD with exacerbation (HCC) - ICD9: 491.21, ICD10: J44.1 IMPRESSION: No acute radiographic abnormality. Treat as COPD exacerbation. No evidence of bacterial faction on today's assessment. Placed on prednisone burst. Red flags prompt ER evaluation discussed. Patient was educated on supportive therapies. Patient will follow up with primary care provider 2 to 3 days reevaluation. Patient was instructed to immediately proceed to emergency room for any new, worsening, or symptoms lasting longer than anticipated. The patient's clinical presentation is otherw ise unremarkable at this time. Based on exam and clinical finding, the patient is stable for discharge. Plan of care was discussed with patient. Patient verbalizes understanding and agrees to plan ofcare. This note was generated using studdex software. It may contain errors in wording, punctuation,or spelling. Prateek Matos APRN.WIRE DRAWING SETTER documented in this encounterCinc[facility]10-[facility] Telephone encounter Note * Telephone Encounter - Alka Keys MA - 08/26/2024 9:04 AM EDT [facility] is there any subsitute for thrush, requesting another medication? Please return call. Alka Keys MA [facility]10-28-2024 Miscellaneous Notes* Telephone Encounter - Alka Keys MA - 08/26/2024 9:04 AM EDT [facility] is there any subsitute for thrush, requesting another medication? Please return call. Alka Keys MA documented in this encounterCincinnati [facility]10-27-2024 NoteHNO ID: [id number] Author: MATILDA MAIN APRN.WIRE DRAWING SETTER Service: ? Author Type: Nurse Practitioner Type: Progress Notes Filed: 08/25/2024 10:27 Note Text: CC: Patient presents with: Cough: Chest congestion, head congestion, fatigue, headache, increase in phlegm and turned green x 3 days HPI: Horace Henderson is a 69 year old male who presents to the office with complaint of chest congestion, head congestion, and cough, productive for a few days. Symptoms are worsening Associated symptoms includes cough. Denies nausea, vomiting , and diarrhea. Treatments tried include nothing so far. with no relief of symptoms. Sick contacts: unknown. History of asthma, frequent episodes of bronchitis, chronic bronchitis, bronchiectasis or COPD: No Smoker: No Seasonal/environmental allergies: No The ROS is otherwise negative. The patient's pmh, medications, allergies, and past visits are reviewed. PHYSICAL EXAM: BP 138/78 Pulse 83 Temp 36.3 ?C (97.4 ?F) Resp 24 Wt 80 kg (176 lb 5.9 oz) SpO2 94% BMI 27.62 kg/m? General appearance: alert, cooperative, pleasant, in no acute distress Head: Normocephalic Eyes: EOM's intact, conjunctiva pink and moist, no icterus, sclera white, non-injected Ears: Right ear: External ear/canal- Normal, TM - clear with good landmarks. Left ear: External ear/canal- Normal, TM - clear with good landmarks Oropharynx:moist without lesions, No erythema, exudates or tonsillar hypertrophy. Heart: Negative. RRR without obvious murmur, gallop, or rubs. No ectopy. Lungs: wheezing right lower lobe PAST MEDICAL HISTORY Diagnosis Date Achilles tendinitis of both lower extremities 06/23/2020 Acute on chronic respiratory failure with hypoxia (HCC) 10/30/2022 Arthritis Asthma CAD (coronary artery disease) 01/11/2012 Chronic bronchitis (HCC) 10/07/2013 06/17/2014 [id number]% predicted. COPD (chronic obstructive pulmonary disease) (HCC) COVID-19 07/05/2022 DDD (degenerative disc disease), lumbar 12/13/2013 Diverticulitis 08/12/2012 Perforated HTN (hypertension) 01/11/2012 Hyperlipidemia 08/04/2012 Lumbar disc displacement without myelopathy 04/04/2014 Nodule of lower lobe of left lung (low dose lung CT) 05/05/2021 Perforated diverticulum of large intestine 08/20/2012 S/P CABG x 2 10/14/1995 Status post insertion of drug-eluting stent into right coronary artery for coronary artery disease 09/30/2021 Tobacco use disorder 10/27/2012 PAST SURGICAL HISTORY Procedure Laterality Date ANESTH OPEN/SURG ARTHRS TOTAL KNEE ARTHROPLASTY 10/10/2013 LEFT APPENDEC INDICATED PURPOSE OTH MAJOR PX NOT SPX 08/12/2012 CABG (2) VEIN GRAFTS AND ARTERIAL GRAFT(S 10/14/1996 SVG to diagonal. STEPHENS to LAD. [facility] CC CORONARY STENT 09/29/2021 Biotronik 2.5x22 mm to distal RCA, biotronik 3.0 x 30 mm to proximal RCA COLECTOMY PARTIAL W/ANASTOMOSIS 08/12/2012 COLONOSCOPY FLX DX W/COLLJ SPEC WHEN PFRMD 07/12/2012 Colonoscopy COLONOSCOPY FLX DX W/COLLJ SPEC WHEN PFRMD 06/22/2021 COLONOSCOPY SCREENING 12/28/2022 cecal adenoma, repeat 5 years CYSTOURETHROSCOPY 2007 Cystoscopy EGD BIOPSY SING OR MULT 12/28/2022 ESOPHAGOGASTRODUODENOSCOPY TRANSORAL DIAGNOSTIC 03/23/2021 ESOPHAGOGASTRODUODENOSCOPY TRANSORAL DIAGNOSTIC 06/22/2021 EYE SURGERY HX LAP; SURGICAL W/CHOLECYSTECTOMY AND CHOLANGI 12/02/2022 PAST SURGICAL HISTORY OF 01/05/2006 stents cardiac x 6, [facility], 2 year intervals REVISE MEDIAN N/CARPAL TUNNEL SURG Right 11/19/2020 Right carpal tunnel syndrome REVISE MEDIAN N/CARPAL TUNNEL SURG Left 12/17/2020 Left carpal tunnel release SKIN BIOPSY HX TONSILLECTOMY HX 1965 VASCULAR SURGERY PROCEDURE ALLERGIES Levofloxacin MEDICATIONS Magnesium Oxide 500 mg magnesium tab Take 1 tablet by mouth once daily. albuterol HFA (PROAIR HFA) 90 mcg/actuation inhaler Inhale 2 Puffs as instructed every 6 hours as needed for wheezing/shortness of breath. ipratropium-albuterol (DUONEB) 0.5 mg-3 mg(2.5 mg base)/3 mL nebu Inhale 3 mL as instructed every 6 hours as needed. clopidogrel (PLAVIX) 75 mg tablet Take 1 tablet by mouth once daily. ezetimibe (ZETIA) 10 mg tablet Take 1 tablet by mouth once daily. metoprolol succinate ER (TOPROL XL) 50 mg 24 hr tablet Take 1 tablet by mouth once daily. From [facility]. potassium chloride SR (MICRO-K) 10 mEq CR capsule Take 1 capsule by mouth two times a day. pantoprazole DR (PROTONIX) 20 mg tablet Take 1 tablet by mouth daily before breakfast. Take on empty stomach, 1/2 hr before meal. losartan (COZAAR) 50 mg tablet Take 1 tablet by mouth once daily. Per [facility]. budesonide-formoterol (SYMBICORT) 160-4.5 mcg/actuation inhaler Inhale 2 Puffs as instructed two times a day. furosemide (LASIX) 40 mg tablet Take 1 tablet by mouth once daily. isosorbide mononitrate ER (IMDUR) 30 mg 24 hr tablet Take 30 mg by mouth once daily. nystatin (MYCOSTATIN) 100,000 unit/mL suspension Take (more content not included)...[facility]10-27-2024 History of Present illness Narrative* Matilda Main APRN.WIRE DRAWING SETTER - 08/25/2024 10:10 AM EDT CC: Patient presents with: Cough: Chest congestion, head congestion, fatigue, headache, increase in phlegm and turned green x 3 days HPI: Horace Henderson is a 69 year old male who presents to the office with complaint of chest congestion, head congestion, and cough, productive for a few days. Symptoms are worsening Associated symptoms includes cough. Denies nausea, vomiting , and diarrhea. Treatments tried include nothing so far. with no relief of symptoms. Sick contacts: unknown. History of asthma, frequent episodes of bronchitis, chronic bronchitis, bronchiectasis or COPD: No Smoker: No Seasonal/environmental allergies: No The ROS is otherwise negative. The patient's pmh, medications, allergies, and past visits are reviewed. PHYSICAL EXAM: BP 138/78 Pulse 83 Temp 36.3 C (97.4 F) Resp 24 Wt 80 kg (176 lb 5.9 oz) SpO2 94% BMI 27.62 kg/m General appearance: alert, cooperative, pleasant, in no acute distress Head: Normocephalic Eyes: EOM's intact, conjunctiva pink and moist, no icterus, sclera white, non-injected Ears: Right ear: External ear/canal- Normal, TM - clear with good landmarks. Left ear: External ear/canal- Normal, TM - clear with good landmarks Oropharynx:moist without lesions, No erythema, exudates or tonsillar hypertrophy. Heart: Negative. RRR without obvious murmur, gallop, or rubs. No ectopy. Lungs: wheezing right lower lobe PAST MEDICAL HISTORY Diagnosis Date Achilles tendinitis of both lower extremities 06/23/2020 Acute on chronic respiratory failure with hypoxia ([facility]) 10/30/2022 Arthritis Asthma CAD (coronary artery disease) 01/11/2012 Chronic bronchitis ([facility]) 10/07/2013 06/17/2014 [id number]% predicted. COPD (chronic obstructive pulmonary disease) ([facility]) COVID-19 07/05/2022 DDD (degenerative disc disease), lumbar 12/13/2013 Diverticulitis 08/12/2012 Perforated HTN (hypertension) 01/11/2012 Hyperlipidemia 08/04/2012 Lumbar disc displacement without myelopathy 04/04/2014 Nodule of lower lobe of left lung (low dose lung CT) 05/05/2021 Perforated diverticulum of large intestine 08/20/2012 S/P CABG x 2 10/14/1995 Status post insertion of drug-eluting stent into right coronary artery for coronary artery disease 09/30/2021 Tobacco use disorder 10/27/2012 PAST SURGICAL HISTORY Procedure Laterality Date ANESTH OPEN/SURG ARTHRS TOTAL KNEE ARTHROPLASTY 10/10/2013 LEFT APPENDEC INDICATED PURPOSE OTH MAJOR PX NOT SPX 08/12/2012 CABG (2) VEIN GRAFTS & ARTERIAL GRAFT(S 10/14/1996 SVG to diagonal. STEPHENS to LAD. [facility] CC CORONARY STENT 09/29/2021 Biotronik 2.5x22 mm to distal RCA, biotronik 3.0 x 30 mm to proximal RCA COLECTOMY PARTIAL W/ANASTOMOSIS 08/12/2012 COLONOSCOPY FLX DX W/COLLJ SPEC WHEN PFRMD 07/12/2012 Colonoscopy COLONOSCOPY FLX DX W/COLLJ SPEC WHEN PFRMD 06/22/2021 COLONOSCOPY SCREENING 12/28/2022 cecal adenoma, repeat 5 years CYSTOURETHROSCOPY 2007 Cystoscopy EGD BIOPSY SING OR MULT 12/28/2022 ESOPHAGOGASTRODUODENOSCOPY TRANSORAL DIAGNOSTIC 03/23/2021 ESOPHAGOGASTRODUODENOSCOPY TRANSORAL DIAGNOSTIC 06/22/2021 EYE SURGERY HX LAP; SURGICAL W/CHOLECYSTECTOMY & CHOLANGI 12/02/2022 PAST SURGICAL HISTORY OF 01/05/2006 stents cardiac x 6, [facility], 2 year intervals REVISE MEDIAN N/CARPAL TUNNEL SURG Right 11/19/2020 Right carpal tunnel syndrome REVISE MEDIAN N/CARPAL TUNNEL SURG Left 12/17/2020 Left carpal tunnel release SKIN BIOPSY HX TONSILLECTOMY HX 1965 VASCULAR SURGERY PROCEDURE ALLERGIES Levofloxacin MEDICATIONS Magnesium Oxide 500 mg magnesium tab Take 1 tablet by mouth once daily. albuterol HFA (PROAIR HFA) 90 mcg/actuation inhaler Inhale 2 Puffs as instructed every 6 hours as needed for wheezing/shortness of breath. ipratropium-albuterol (DUONEB) 0.5 mg-3 mg(2.5 mg base)/3 mL nebu Inhale 3 mL as instructed every 6hours as needed. clopidogrel (PLAVIX) 75 mg tablet Take 1 tablet by mouth once daily. ezetimibe (ZETIA) 10 mg tablet Take 1 tablet by mouth once daily. metoprolol succinate ER (TOPROL XL) 50 mg 24 hr tablet Take 1 tablet by mouth once daily. From [facility]. potassium chloride SR (MICRO-K) 10 mEq CR capsule Take 1 capsule by mouth two times a day. pantoprazole DR (PROTONIX) 20 mg tablet Take 1 tablet by mouth daily before breakfast. Take on empty stomach, 1/2 hr before meal. losartan (COZAAR) 50 mg tablet Take 1 tablet by mouth once daily. Per [facility]. budesonide-formoterol (SYMBICORT) 160-4.5 mcg/actuation inhaler Inhale 2 Puffs as instructed two times a day. furosemide (LASIX) 40 mg tablet Take 1 tablet by mouth once daily. isosorbide mononitrate ER (IMDUR) 30 mg 24 hr tablet Take 30 mg by mouth once daily. nystatin (MYCOSTATIN) 100,000 unit/mL suspension Take 5 mL by mouth four times daily. 1tsp swish inmouth for several minutes, then swallow (or expectorate) 4 times daily until gone. azithromycin (ZITHROMAX) 250 mg tablet Take 2 tablets by mouth once daily for 1 day, THEN 1 tablet once daily for 4 days. FAMILY HISTORY Problem Relation Age of Onset None Mother Coronary Artery Disease Father 79 stent placed Hypertension Brother Cancer Maternal Grandfather 70 pancreatic Heart disease Paternal Grandmother Social History Tobacco Use Smoking status: Every Day Current packs/day: 0.50 Average packs/day: 0.5 packs/day for 40.2 years (20.1 ttl pk-yrs) Types: Cigarettes, Pipe Start date: 06/17/1984 Smokeless tobacco: Never Vaping Use Vaping status: Never Used Substance Use Topics Alcohol use: Yes Alcohol/week: 9.2 standard drinks of alcohol Types: 4 Standard drinks or equivalent, 4 Mixed Drinks per week Comment: 2 mixed drinks 2 times per week. Drug use: No Frequency: 2.0 times per week ASSESSMENT/PLAN: 1. Respiratory infection - ICD9: 519.8, ICD10: J98.8 (primary diagnosis) - AZITHROMYCIN 250 MG TABLET 2. Thrush - ICD9: 112.0, ICD10: B37.0 - NYSTATIN 100,000 UNIT/ML ORAL SUSPENSION Prescription instructions reviewed with patient as applicable. Potential red flag symptoms discussed with the patient. Reviewed appropriate action plan to take if red flag symptoms occur. Patient agreeable to treatment plan. Matilda Main APRN.HORTENCIA documented in this encounterCincinnati [facility] NoteHNO ID: [id number] Author: DARLYN MORENO RN Service: ? Author Type: Registered Nurse Type: Progress Notes Filed: 08/21/2024 14:14 Note Text: CDM Telephonic Outreach Provider Action/FYI CDM: Chronic Bronchitis Pt denies symptom changes, concerns or needs Pt noted previous cramps, are no longer present after hydrating more Pt is using Nebulizer 2x daily, Albuterol inhaler 2-3 x daily as needed Instructed to contact PCP/Provider for symptom changes, concerns or needs. Patient verbalized understanding. SDH updated Instructed to contact PCP/Provider for symptom changes, concerns or needs. Contacted for: Routine Telephonic Outreach Contact made with patient: Yes Patient identified by name and date of . Discussed care with patient Are you experiencing any new or worsening symptoms you need to talk about today? No Disease Specific Do you check your blood pressure at home? Yes, Enter readings: Not taken Do you have new or worsening shortness of breath with activity? No Do you have new or worsening cough? No Do you have new or worsening wheezing? No Do you need to use your rescue (Albuterol) inhaler or nebulizer more often than normal? No Based on carousel operator, the following disposition is advised: No symptoms or symptoms present, not severe. Routed to: No Action Needed KAROL Education Provided this Outreach: No Darlyn Moreno RN August 21, 2024 2:00 [facility]10-23-2024 History of Present illness Narrative* Darlyn Moreno RN - 08/21/2024 1:53 PM EDT CDM Telephonic Outreach Provider Action/FYI CDM: Chronic Bronchitis Pt denies symptom changes, concerns or needs Pt noted previous cramps, are no longer present after hydrating more Pt is using Nebulizer 2x daily, Albuterol inhaler 2-3 x daily as needed Instructed to contact PCP/Provider for symptom changes, concerns or needs. Patient verbalized understanding. SDH updated Instructed to contact PCP/Provider for symptom changes, concerns or needs. Contacted for: Routine Telephonic Outreach Contact made with patient: Yes Patient identified by name and date of . Discussed care with patient Are you experiencing any new or worsening symptoms you need to talk about today? No Disease Specific Do you check your blood pressure at home? Yes, Enter readings: Not taken Do you have new or worsening shortness of breath with activity? No Do you have new or worsening cough? No Do you have new or worsening wheezing? No Do you need to use your rescue (Albuterol) inhaler or nebulizer more often than normal? No Based on carousel operator, the following disposition is advised: No symptoms or symptoms present, not severe. Routed to: No Action Needed KAROL Education Provided this Outreach: No Darlyn Moreno RN August 21, 2024 2:00 PM documented in this encounterCincinnati [facility]10-23-[facility]24 NotePatient Outreach ([facility]) HORACE HENDERSON ([id number]) 1955 M Date Time Provider Department 08/21/24 DARLYN MORENO AM[facility] During your visit today, we recorded the following information about you: Darlyn Moreno RN 08/21/2024 2:14 PM Signed CDM Telephonic Outreach Provider Action/FYI CDM: Chronic Bronchitis Pt denies symptom changes, concerns or needs Pt noted previous cramps, are no longer present after hydrating more Pt is using Nebulizer 2x daily, Albuterol inhaler 2-3 x daily as needed Instructed to contact PCP/Provider for symptom changes, concerns or needs. Patient verbalized understanding. SDH updated Instructed to contact PCP/Provider for symptom changes, concerns or needs. Contacted for: Routine Telephonic Outreach Contact made with patient: Yes Patient identified by name and date of . Discussed care with patient Are you experiencing any new or worsening symptoms you need to talk about today? No Disease Specific Do you check your blood pressure at home? Yes, Enter readings: Not taken Do you have new or worsening shortness of breath with activity? No Do you have new or worsening cough? No Do you have new or worsening wheezing? No Do you need to use your rescue (Albuterol) inhaler or nebulizer more often than normal? No Based on carousel operator, the following disposition is advised: No symptoms or symptoms present, not severe. Routed to: No Action Needed KAROL Education Provided this Outreach: No Darlyn Moreno RN August 21, 2024 2:00 PM Allergies As of Date: 08/21/2024 Noted Allergy Reaction LEVOFLOXACIN 06/01/2020 14 - Other: See Comments Comments: Tachycardia. Achilles tendonitis. Date Reviewed: 08/12/2024 Reviewed by: Blanca Tilley APRN.WIRE DRAWING SETTER - Fully Assessed Reason for Visit: CDM [Other] Cmt: Chronic Disease Management Routine Call Prescriptions as of 08/21/2024 - Magnesium Oxide 500 mg magnesium tab Take 1 tablet by mouth once daily. - albuterol HFA (PROAIR HFA) 90 mcg/actuation inhaler Inhale 2 Puffs as instructed every 6 hours as needed for wheezing/shortness of breath. - ipratropium-albuterol (DUONEB) 0.5 mg-3 mg(2.5 mg base)/3 mL nebu Inhale 3 mL as instructed every 6 hours as needed. - clopidogrel (PLAVIX) 75 mg tablet Take 1 tablet by mouth once daily. - ezetimibe (ZETIA) 10 mg tablet Take 1 tablet by mouth once daily. - metoprolol succinate ER (TOPROL XL) 50 mg 24 hr tablet Take 1 tablet by mouth once daily. From [facility]. - potassium chloride SR (MICRO-K) 10 mEq CR capsule Take 1 capsule by mouth two times a day. - pantoprazole DR (PROTONIX) 20 mg tablet Take 1 tablet by mouth daily before breakfast. Take on empty stomach, 1/2 hr before meal. - losartan (COZAAR) 50 mg tablet Take 1 tablet by mouth once daily. Per [facility]. - budesonide-formoterol (SYMBICORT) 160-4.5 mcg/actuation inhaler Inhale 2 Puffs as instructed two times a day. - furosemide (LASIX) 40 mg tablet Take 1 tablet by mouth once daily. - isosorbide mononitrate ER (IMDUR) 30 mg 24 hr tablet Take 30 mg by mouth once daily. Problem List As Of Date 08/21/2024 Noted Resolved HTN (hypertension) [I10] 01/11/2012 CAD (coronary artery disease) [I25.10] 01/11/2012 S/P CABG x 2 [Z95.1] 10/14/1995 OA (osteoarthritis) of knee [M17.9] 05/08/2012 Diverticulitis [K57.92] 01/09/2014 Sciatica [M54.30] 06/21/2012 04/29/2015 Hyperlipidemia [E78.5] 08/04/2012 Perforated diverticulum of large intestine [K57*08/20/2012 10/27/2012 Tobacco use disorder [F17.200] 10/27/2012 Chronic bronchitis [J42] 10/07/2013 Primary localized osteoarthrosis, lower leg [M1*11/04/2013 04/29/2015 Knee 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 [Z96.659] 11/04/2013 04/29/2015 Lumbar radiculopathy [M54.16] 12/13/2013 04/17/2018 DDD (degenerative disc disease), lumbar [M51.36*12/13/2013 Lumbar disc displacement without myelopathy [M5*04/04/2014 04/17/2018 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*05/08/2015 Presence of drug coated stent in right coronary*05/08/2015 Presence of drug coated stent in left circumfle*05/08/2015 Dupuytren's contracture of right hand [M72.0] 11/05/2015 Tobacco abuse [Z72.0] 11/06/2015 11/15/2016 Essential hypertension [I10] 11/10/2016 11/15/2016 Achilles tendinitis of both lower extremities [*06/23/2020 Nodule of lower lobe of left lung (low dose severino*05/05/2021 Status post insertion of drug-eluting stent int*09/30/2021 Acute on chronic respiratory failure with hypox*10/30/2022 Gastroesophageal reflux disease [K21.9] 05/24/2023 Encounter Status:Closed by DARLYN MORENO on 08/21/24[facility]10-14-[facility]24 NoteHNO ID: [id number] Author: BLANCA TILLEY APRN.WIRE DRAWING SETTER Service: ? Author Type: Nurse Practitioner Type: Progress Notes Filed: 08/12/2024 09:24 Note Text: CC Patient presents with: severe cramping in my sides now and again HPI Horace Henderson is a 69 year old male who presents with cramping pain for a few months, possibly longer. Location: lower anterior ribs on both sides, does not radiate Described as: cramping like a charley horse. Pain is intermittent. Aggravating factors: nothing he can pin point. Seems to occur mostly when he is at rest driving in the car otherwise no certain time of day. Does not occur at night or wake him up from sleep. Alleviating factors: nothing Associated symptoms: he has a chronic cough secondary to COPD, pain possibly starts after a coughing fit. Denies: chest pain, worsening of chronic SOB, palpitations, hemoptysis, abdominal discomfort, blood in stools or black stools, change in bowel habit, diarrhea, constipation, reflux, heart burn, nausea, vomiting, poor appetite, early satiety, excessive belching, bloating PMH: COPD, CAD, CABG, GERD Review of Systems Constitutional: Negative for chills, diaphoresis, fatigue, fever and unexpected weight change. HENT: Negative for sore throat and trouble swallowing. Genitourinary: Negative for decreased urine volume, dysuria, flank pain, hematuria and urgency. Neurological: Negative for dizziness, syncope, weakness and light-headedness. PAST MEDICAL HISTORY Diagnosis Date Achilles tendinitis of both lower extremities 06/23/2020 Acute on chronic respiratory failure with hypoxia (HCC) 10/30/2022 Arthritis Asthma CAD (coronary artery disease) 01/11/2012 Chronic bronchitis (HCC) 10/07/2013 06/17/2014 VQS521% predicted. COPD (chronic obstructive pulmonary disease) (HCC) COVID-19 07/05/2022 DDD (degenerative disc disease), lumbar 12/13/2013 Diverticulitis 08/12/2012 Perforated HTN (hypertension) 01/11/2012 Hyperlipidemia 08/04/2012 Lumbar disc displacement without myelopathy 04/04/2014 Nodule of lower lobe of left lung (low dose lung CT) 05/05/2021 Perforated diverticulum of large intestine 08/20/2012 S/P CABG x 2 10/14/1995 Status post insertion of drug-eluting stent into right coronary artery for coronary artery disease 09/30/2021 Tobacco use disorder 10/27/2012 PAST SURGICAL HISTORY Procedure Laterality Date ANESTH OPEN/SURG ARTHRS TOTAL KNEE ARTHROPLASTY 10/10/2013 LEFT APPENDEC INDICATED PURPOSE OTH MAJOR PX NOT SPX 08/12/2012 CABG (2) VEIN GRAFTS AND ARTERIAL GRAFT(S 10/14/1996 SVG to diagonal. STEPHENS to LAD. [facility]. CC CORONARY STENT 09/29/2021 Biotronik 2.5x22 mm to distal RCA, biotronik 3.0 x 30 mm to proximal RCA COLECTOMY PARTIAL W/ANASTOMOSIS 08/12/2012 COLONOSCOPY FLX DX W/COLLJ SPEC WHEN PFRMD 07/12/2012 Colonoscopy COLONOSCOPY FLX DX W/COLLJ SPEC WHEN PFRMD 06/22/2021 COLONOSCOPY SCREENING 12/28/2022 cecal adenoma, repeat 5 years CYSTOURETHROSCOPY 2007 Cystoscopy EGD BIOPSY SING OR MULT 12/28/2022 ESOPHAGOGASTRODUODENOSCOPY TRANSORAL DIAGNOSTIC 03/23/2021 ESOPHAGOGASTRODUODENOSCOPY TRANSORAL DIAGNOSTIC 06/22/2021 EYE SURGERY HX LAP; SURGICAL W/CHOLECYSTECTOMY AND CHOLANGI 12/02/2022 PAST SURGICAL HISTORY OF 01/05/2006 stents cardiac x 6, [facility], 2 year intervals REVISE MEDIAN N/CARPAL TUNNEL SURG Right 11/19/2020 Right carpal tunnel syndrome REVISE MEDIAN N/CARPAL TUNNEL SURG Left 12/17/2020 Left carpal tunnel release SKIN BIOPSY HX TONSILLECTOMY HX 1965 VASCULAR SURGERY PROCEDURE ALLERGIES Levofloxacin MEDICATIONS albuterol HFA (PROAIR HFA) 90 mcg/actuation inhaler Inhale 2 Puffs as instructed every 6 hours as needed for wheezing/shortness of breath. ipratropium-albuterol (DUONEB) 0.5 mg-3 mg(2.5 mg base)/3 mL nebu Inhale 3 mL as instructed every 6 hours as needed. clopidogrel (PLAVIX) 75 mg tablet Take 1 tablet by mouth once daily. ezetimibe (ZETIA) 10 mg tablet Take 1 tablet by mouth once daily. metoprolol succinate ER (TOPROL XL) 50 mg 24 hr tablet Take 1 tablet by mouth once daily. From [facility]. potassium chloride SR (MICRO-K) 10 mEq CR capsule Take 1 capsule by mouth two times a day. pantoprazole DR (PROTONIX) 20 mg tablet Take 1 tablet by mouth daily before breakfast. Take on empty stomach, 1/2 hr before meal. losartan (COZAAR) 50 mg tablet Take 1 tablet by mouth once daily. Per [facility]. budesonide-formoterol (SYMBICORT) 160-4.5 mcg/actuation inhaler Inhale 2 Puffs as instructed two times a day. furosemide (LASIX) 40 mg tablet Take 1 tablet by mouth once daily. isosorbide mononitrate ER (IMDUR) 30 mg 24 hr tablet Take 30 mg by mouth once daily. rosuvastatin (CRESTOR) 40 mg tablet Take 1 tablet by mouth once daily. FAMILY HISTORY Problem Relation Age of Onset None Mother Coronary Artery Disease Father 79 stent placed Hypertension Brother Cancer Maternal Grandfat (more content not included)...[facility]10-14-2024 History of Present illness Narrative* Blanca Tilley, LICENSED NUCLEAR CONTROL ROOM OPERATOR.[facility] - 08/12/2024 8:53 AM EDT CC Patient presents with: severe cramping in my sides now and again HPI Horace Henderson is a 69 year old male who presents with cramping pain for a few months, possibly longer. Location: lower anterior ribs on both sides, does not radiate Described as: cramping like a charley horse. Pain is intermittent. Aggravating factors: nothing he can pin point. Seems to occur mostly when he is at rest driving in the car otherwise no certain time of day. Does not occur at night or wake him up from sleep. Alleviating factors: nothing Associated symptoms: he has a chronic cough secondary to COPD, pain possibly starts after a coughing fit. Denies: chest pain, worsening of chronic SOB, palpitations, hemoptysis, abdominal discomfort, bloodin stools or black stools, change in bowel habit, diarrhea, constipation, reflux, heart burn, nausea, vomiting, poor appetite, early satiety, excessive belching, bloating PMH: COPD, CAD, CABG, GERD Review of Systems Constitutional: Negative for chills, diaphoresis, fatigue, fever and unexpected weight change. HENT: Negative for sore throat and trouble swallowing. Genitourinary: Negative for decreased urine volume, dysuria, flank pain, hematuria and urgency. Neurological: Negative for dizziness, syncope, weakness and light-headedness. PAST MEDICAL HISTORY Diagnosis Date Achilles tendinitis of both lower extremities 06/23/2020 Acute on chronic respiratory failure with hypoxia (HCC) 10/30/2022 Arthritis Asthma CAD (coronary artery disease) 01/11/2012 Chronic bronchitis (HCC) 10/07/2013 06/17/2014 [id number]% predicted. COPD (chronic obstructive pulmonary disease) ([facility]) COVID-19 07/05/2022 DDD (degenerative disc disease), lumbar 12/13/2013 Diverticulitis 08/12/2012 Perforated HTN (hypertension) 01/11/2012 Hyperlipidemia 08/04/2012 Lumbar disc displacement without myelopathy 04/04/2014 Nodule of lower lobe of left lung (low dose lung CT) 05/05/2021 Perforated diverticulum of large intestine 08/20/2012 S/P CABG x 2 10/14/1995 Status post insertion of drug-eluting stent into right coronary artery for coronary artery disease 09/30/2021 Tobacco use disorder 10/27/2012 PAST SURGICAL HISTORY Procedure Laterality Date ANESTH OPEN/SURG ARTHRS TOTAL KNEE ARTHROPLASTY 10/10/2013 LEFT APPENDEC INDICATED PURPOSE OTH MAJOR PX NOT SPX 08/12/2012 CABG (2) VEIN GRAFTS & ARTERIAL GRAFT(S 10/14/1996 SVG to diagonal. STEPHENS to LAD. [facility] CC CORONARY STENT 09/29/2021 Biotronik 2.5x22 mm to distal RCA, biotronik 3.0 x 30 mm to proximal RCA COLECTOMY PARTIAL W/ANASTOMOSIS 08/12/2012 COLONOSCOPY FLX DX W/COLLJ SPEC WHEN PFRMD 07/12/2012 Colonoscopy COLONOSCOPY FLX DX W/COLLJ SPEC WHEN PFRMD 06/22/2021 COLONOSCOPY SCREENING 12/28/2022 cecal adenoma, repeat 5 years CYSTOURETHROSCOPY 2007 Cystoscopy EGD BIOPSY SING OR MULT 12/28/2022 ESOPHAGOGASTRODUODENOSCOPY TRANSORAL DIAGNOSTIC 03/23/2021 ESOPHAGOGASTRODUODENOSCOPY TRANSORAL DIAGNOSTIC 06/22/2021 EYE SURGERY HX LAP; SURGICAL W/CHOLECYSTECTOMY & CHOLANGI 12/02/2022 PAST SURGICAL HISTORY OF 01/05/2006 stents cardiac x 6, [facility], 2 year intervals REVISE MEDIAN N/CARPAL TUNNEL SURG Right 11/19/2020 Right carpal tunnel syndrome REVISE MEDIAN N/CARPAL TUNNEL SURG Left 12/17/2020 Left carpal tunnel release SKIN BIOPSY HX TONSILLECTOMY HX 1965 VASCULAR SURGERY PROCEDURE ALLERGIES Levofloxacin MEDICATIONS albuterol HFA (PROAIR HFA) 90 mcg/actuation inhaler Inhale 2 Puffs as instructed every 6 hours as needed for wheezing/shortness of breath. ipratropium-albuterol (DUONEB) 0.5 mg-3 mg(2.5 mg base)/3 mL nebu Inhale 3 mL as instructed every 6hours as needed. clopidogrel (PLAVIX) 75 mg tablet Take 1 tablet by mouth once daily. ezetimibe (ZETIA) 10 mg tablet Take 1 tablet by mouth once daily. metoprolol succinate ER (TOPROL XL) 50 mg 24 hr tablet Take 1 tablet by mouth once daily. From [facility]. potassium chloride SR (MICRO-K) 10 mEq CR capsule Take 1 capsule by mouth two times a day. pantoprazole DR (PROTONIX) 20 mg tablet Take 1 tablet by mouth daily before breakfast. Take on empty stomach, 1/2 hr before meal. losartan (COZAAR) 50 mg tablet Take 1 tablet by mouth once daily. Per [facility]. budesonide-formoterol (SYMBICORT) 160-4.5 mcg/actuation inhaler Inhale 2 Puffs as instructed two times a day. furosemide (LASIX) 40 mg tablet Take 1 tablet by mouth once daily. isosorbide mononitrate ER (IMDUR) 30 mg 24 hr tablet Take 30 mg by mouth once daily. rosuvastatin (CRESTOR) 40 mg tablet Take 1 tablet by mouth once daily. FAMILY HISTORY Problem Relation Age of Onset None Mother Coronary Artery Disease Father 79 stent placed Hypertension Brother Cancer Maternal Grandfather 70 pancreatic Heart disease Paternal Grandmother Social History Tobacco Use Smoking status: Every Day Current packs/day: 0.50 Average packs/day: 0.5 packs/day for 40.2 years (20.1 ttl pk-yrs) Types: Cigarettes, Pipe Start date: 06/17/1984 Smokeless tobacco: Never Vaping Use Vaping status: Never Used Substance Use Topics Alcohol use: Yes Alcohol/week: 9.2 standard drinks of alcohol Types: 4 Standard drinks or equivalent, 4 Mixed Drinks per week Comment: 2 mixed drinks 2 times per week. Drug use: No Frequency: 2.0 times per week BP 125/82 Pulse 91 Resp 20 Wt 80.2 kg (176 lb 12.9 oz) BMI 27.69 kg/m Physical Exam Vitals reviewed. Constitutional: General: He is not in acute distress. Appearance: Normal appearance. He is not ill-appearing. Cardiovascular: Rate and Rhythm: Normal rate and regular rhythm. Heart sounds: Normal heart sounds. No murmur heard. Pulmonary: Effort: Pulmonary effort is normal. Breath sounds: Normal breath sounds. No wheezing, rhonchi or rales. Chest: Chest wall: Tenderness (anterior lower ribs bilaterally, worse on the right) present. No mass, deformity, crepitus or edema. Abdominal: General: Bowel sounds are normal. There is no distension. Palpations: Abdomen is soft. There is no hepatomegaly, splenomegaly or mass. Tenderness: There is no abdominal tenderness. There is no right CVA tenderness or left CVA tenderness. Skin: General: Skin is warm and dry. Neurological: Mental Status: He is alert. Psychiatric: Mood and Affect: Mood normal. DATA REVIEWED: Most recent labs, CT chest ASSESSMENT/PLAN: 1. Chest wall pain - ICD9: 786.52, ICD10: R07.89 (primary diagnosis) Etiology unclear. Differential diagnoses includes costochondritis, pleurisy, musculoskeletal pain. Patient thinks pain is possibly aggravated by coughing fits but is not completely sure. No symptoms or exam findings consistent with GI etiology. CT chest for lung cancer screening less than two months ago without acute findings. He is not having any cardiac symptoms. Evaluate further with: - COMPREHENSIVE METABOLIC PANEL - COMPLETE BLOOD COUNT - MAGNESIUM If labs normal can try oral steroid burst such as prednisone 2. Chronic bronchitis, unspecified chronic bronchitis type (HCC) - ICD9: 491.9, ICD10: J42 As above 3. Hyperlipidemia, unspecified hyperlipidemia type - ICD9: 272.4, ICD10: E78.5 - he stopped Crestor a few months ago due to concerns about causing dementia. Control undetermined,due for labs. Check LIPID PANEL BASIC 4. Impaired glucose metabolism - ICD9: 790.29, ICD10: R73.09 Recheck - URINALYSIS WITH MICROSCOPIC, REFLEX CULTURE - HEMOGLOBIN A1C Prescription instructions reviewed with patient as applicable. Potential red flag symptoms discussed with the patient. Reviewed appropriate action plan to take if red flag symptoms occur. Patient agreeable to treatment plan. Blanca Til[place] APRN.HORTENCIA documented in this encounterCinc[facility]09[facility] Telephone encounter Note * Telephone Encounter - Jessie Bernabe LPN - 07/26/2024 8:12 AM EDT Spoke with pt gave information provided. Pt voices understanding. [facility]09-27-2024 Miscellaneous Notes* Telephone Encounter - Jessie Bernabe LPN - 07/26/2024 8:12 AM EDT Spoke with pt gave information provided. Pt voices understanding. * Telephone Encounter - George Vázquez MD - 07/25/2024 7:11 PM EDT He can get blood clots, diabetes, infections, heart failure, tendon rupture, etc. Etc. Etc. Not recommended for frequent or regular use. * Telephone Encounter - Xi Lakhani LPN - 07/23/2024 2:32 PM EDT Pt notified of provider message. Pt reports prednisone helped his achilles pain and also seemed to help his breathing a lot. Pt is asking if he can be prescribed a maintenance lower dose of prednisone or something like it because he felt better when taking med. Tried to schedule pt an appt to discuss medications but pt requested pcp to review and advise. Xi Lakhani LPN * Telephone Encounter - Kimberlee Craft LPN - 07/23/2024 2:19 PM EDT Left a message for pt to call the office and ask to speak to a nurse. Kimberlee Craft LPN * Telephone Encounter - George Vázquez MD - 07/23/2024 11:47 AM EDT Refused Prescriptions Disp Refills predniSONE (DELTASONE) 10 mg tablet 20 tablet 0 Sig: TAKE BY MOUTH 4 TABLETS DAILY FOR 2 DAYS, THEN 3 TABLETS DAILY FOR 2 DAYS, THEN 2 TABLETS DAILY FOR 2 DAYS, THEN 1 TABLET DAILY FOR 2 DAYS. Refused By: GEORGE VÁZQUEZ Reason for Refusal: A Refill not appropriate George Vázquez MD * Telephone Encounter - Pat Richey LPN - 07/23/2024 8:18 AM EDT Patient has been identified by name and date of : Yes Patient phones for refill(s): Requested Prescriptions Pending Prescriptions Disp Refills predniSONE (DELTASONE) 10 mg tablet 20 tablet 0 Sig: TAKE BY MOUTH 4 TABLETS DAILY FOR 2 DAYS, THEN 3 TABLETS DAILY FOR 2 DAYS, THEN 2 TABLETS DAILY FOR 2 DAYS, THEN 1 TABLET DAILY FOR 2 DAYS. Date of last office visit in primary care: 05/27/2024 Date of next office visit in primary care: 07/22/2024 Please advise. Thank you. Pat Richey LPN. documented in this encounterCincinnati [facility]09-26-2024 Telephone encounter Note * Telephone Encounter - George Vázquez MD - 07/25/2024 7:11 PM EDT He can get blood clots, diabetes, infections, heart failure, tendon rupture, etc. Etc. Etc. Not recommended for frequent or regular use. [facility]09-26-2024 NoteHNO ID: [id number] Author: SORAYA HENRY MA Service: ? Author Type: Electric Shovel Operator Type: Progress Notes Filed: 07/25/2024 10:13 Note Text: POPULATION HEALTH NAVIGATION OUTREACH Action/FYI Community Monitoring Navigation Pool/CDM Discuss/Due for: Follow Up/ Acute Problem Visit Increased incremental Chronic Sob with exertion Navigation Team- Please contact Pt to schedule (attempt to schedule within 48-72 hrs if possible) Outcome: 1st attempt - Spoke to patient Patient declined appointment for today with George Vázquez MD - scheduled appointment for tomorrow with George Vázquez MD Reason for Outreach Community Monitoring/Network Navigator Pools AND Phone Line: CDM Patient Contacted: Spoke to patient/parent/or legal guardian Patient identified by name and : Yes Community Monitoring/Network Navigator Pools AND Phone Line actions taken: Patient scheduled: Follow-Up Appointment 07/26/2024 in [facility] with GEORGE VÁZQUEZ - Follow Up/ Acute Problem Visit - PER RN, Increased incremental Chronic Sob with exertion 11/25/2024 in [facility] with GEORGE VÁZQUEZ - 6 month follow-up Navigation Signature: Soraya Henry MA July 25, 2024 10:[address] [facility]09-25-2024 NoteHNO ID: [id number] Author: SORAYA HENRY MA Service: ? Author Type: Electric Shovel Operator Type: Progress Notes Filed: 07/24/2024 15:16 Note Text: POPULATION HEALTH NAVIGATION OUTREACH Action/FYI Community Monitoring Navigation Pool/CDM Discuss/Due for: Follow Up/ Acute Problem Visit Increased incremental Chronic Sob with exertion Navigation Team- Please contact Pt to schedule (attempt to schedule within 48-72 hrs if possible) Outcome: 1st attempt - Left Message Postpone x1 day Reason for Outreach Community Monitoring/Network Navigator Pools AND Phone Line: CDM Patient Contacted: Unable or unnecessary to reach patient: Left message Navigation Signature: Soraya Henry MA July 24, 2024 3:12 [facility]09-25-2024 History of Present illness Narrative* Soraya Henry MA - 07/24/2024 3:12 PM EDT POPULATION HEALTH NAVIGATION OUTREACH Action/FYI Community Monitoring Navigation Pool/CDM Discuss/Due for: Follow Up/ Acute Problem Visit Increased incremental Chronic Sob with exertion Navigation Team- Please contact Pt to schedule (attempt to schedule within 48-72 hrs if possible) Outcome: 1st attempt - Left Message Postpone x1 day Reason for Outreach Community Monitoring/Network Navigator Pools & Phone Line: CDM Patient Contacted: Unable or unnecessary to reach patient: Left message Navigation Signature: Soraya Henry MA July 24, 2024 3:12 PM * Soraya Henry MA - 07/24/2024 1:29 PM EDT POPULATION HEALTH NAVIGATION OUTREACH Mirza/GUNJAN Community Monitoring Navigation Pool/CD Discuss/Due for: Follow Up/ Acute Problem Visit Increased incremental Chronic Sob with exertion Navigation Team- Please contact Pt to schedule (attempt to schedule within 48-72 hrs if possible) Outcome: 1st attempt - Left Message x2 2nd attempt - MyChart message sent Reason for Outreach Community Monitoring/Network Navigator Pools & Phone Line: CDM Patient Contacted: Unable or unnecessary to reach patient: Left message MyChart message sent Navigation Signature: Soraya Henry MA July 24, 2024 1:29 PM * Darlyn Moreno RN - 07/24/2024 1:04 PM EDT M Telephonic Outreach Provider Mirza/GUNJAN Routed updates to Dr. Vázquez Routed to Navigation Team- Please contact Pt to schedule (attempt to schedule within 48-72 hrs if possible) Increased incremental Chronic Sob with exertion Pulse Ox 94-95% while on the phone, Chronic intermittent cough Nebulizer 2x daily, Rescue as needed 3-4 x day Runny nose at times Speaking in full sentences, No Respiratory distress Pt declined need to speak to a virtual Provider Chronic Bronchitis Contacted for: Routine Telephonic Outreach Contact made with patient: Yes Patient identified by name and date of . Discussed care with patient Are you experiencing any new or worsening symptoms you need to talk about today? No Disease Specific Do you check your blood pressure at home? Yes, Enter readings: Not often Do you have new or worsening shortness of breath with activity? Yes Do you have new or worsening cough? No Do you have new or worsening wheezing? No Do you need to use your rescue (Albuterol) inhaler or nebulizer more often than normal? Yes Based on carousel operator, the following disposition is advised: No symptoms or symptoms present, not severe. Routed to: Navigation Team: PCP visit within 48 hours [employer] Provided this Outreach: No Darlyn Moreno RN July 24, 2024 1:11 PM documented in this encounterCincinnati [facility]09-25-2024 NoteHNO ID: [id number] Author: SORAYA HENRY MA Service: ? Author Type: Electric Shovel Operator Type: Progress Notes Filed: 07/24/2024 13:41 Note Text: Will call again at 3:00pm [facility] [place]09-25-2024 NoteHNO ID: [id number] Author: SORAYA HENRY MA Service: ? Author Type: Electric Shovel Operator Type: Progress Notes Filed: 07/24/2024 13:40 Note Text: Will call again at 3:00pm [facility] [place]09-25-2024 NoteHNO ID: [id number] Author: SORAYA HENRY MA Service: ? Author Type: Electric Shovel Operator Type: Progress Notes Filed: 07/24/2024 13:38 Note Text: POPULATION HEALTH NAVIGATION OUTREACH Action/FYI Community Monitoring Navigation Pool/CDM Discuss/Due for: Follow Up/ Acute Problem Visit Increased incremental Chronic Sob with exertion Navigation Team- Please contact Pt to schedule (attempt to schedule within 48-72 hrs if possible) Outcome: 1st attempt - Left Message x2 2nd attempt - MyChart message sent Reason for Outreach Community Monitoring/Network Navigator Pools AND Phone Line: CDM Patient Contacted: Unable or unnecessary to reach patient: Left message MyChart message sent Navigation Signature: Soraya Henry MA July 24, 2024 1:29 [facility]09-25-2024 NoteHNO ID: [id number] Author: DARLYN MORENO RN Service: ? Author Type: Registered Nurse Type: Progress Notes Filed: 07/24/2024 13:25 Note Text: CDM Telephonic Outreach Provider Mirza/GUNJAN Routed updates to Dr. Vázquez Routed to Navigation Team- Please contact Pt to schedule (attempt to schedule within 48-72 hrs if possible) Increased incremental Chronic Sob with exertion Pulse Ox 94-95% while on the phone, Chronic intermittent cough Nebulizer 2x daily, Rescue as needed 3-4 x day Runny nose at times Speaking in full sentences, No Respiratory distress Pt declined need to speak to a virtual Provider Chronic Bronchitis Contacted for: Routine Telephonic Outreach Contact made with patient: Yes Patient identified by name and date of . Discussed care with patient Are you experiencing any new or worsening symptoms you need to talk about today? No Disease Specific Do you check your blood pressure at home? Yes, Enter readings: Not often Do you have new or worsening shortness of breath with activity? Yes Do you have new or worsening cough? No Do you have new or worsening wheezing? No Do you need to use your rescue (Albuterol) inhaler or nebulizer more often than normal? Yes Based on carousel operator, the following disposition is advised: No symptoms or symptoms present, not severe. Routed to: Navigation Team: PCP visit within 48 hours [employer] Education Provided this Outreach: No Darlyn Moreno RN July 24, 2024 1:11 [facility]09-25-2024 NotePatient Outreach ([facility]) HORACE HENDERSON ([id number]) 1955 M Date Time Provider Department 07/24/24 DARLYN MORENO During your visit today, we recorded the following information about you: Darlyn Moreno RN 07/24/2024 1:25 PM Signed CDM Telephonic Outreach Provider Action/FYI Routed updates to Dr. Vázquez Routed to Navigation Team- Please contact Pt to schedule (attempt to schedule within 48-72 hrs if possible) Increased incremental Chronic Sob with exertion Pulse Ox 94-95% while on the phone, Chronic intermittent cough Nebulizer 2x daily, Rescue as needed 3-4 x day Runny nose at times Speaking in full sentences, No Respiratory distress Pt declined need to speak to a virtual Provider Chronic Bronchitis Contacted for: Routine Telephonic Outreach Contact made with patient: Yes Patient identified by name and date of . Discussed care with patient Are you experiencing any new or worsening symptoms you need to talk about today? No Disease Specific Do you check your blood pressure at home? Yes, Enter readings: Not often Do you have new or worsening shortness of breath with activity? Yes Do you have new or worsening cough? No Do you have new or worsening wheezing? No Do you need to use your rescue (Albuterol) inhaler or nebulizer more often than normal? Yes Based on carousel operator, the following disposition is advised: No symptoms or symptoms present, not severe. Routed to: Navigation Team: PCP visit within 48 hours [employer] Provided this Outreach: No Darlyn Moreno RN July 24, 2024 1:11 PM Soraya Henry MA 07/24/2024 1:38 PM Signed POPULATION HEALTH NAVIGATION OUTREACH Action/ Community Monitoring Navigation Pool/CDM Discuss/Due for: Follow Up/ Acute Problem Visit Increased incremental Chronic Sob with exertion Navigation Team- Please contact Pt to schedule (attempt to schedule within 48-72 hrs if possible) Outcome: 1st attempt - Left Message x2 2nd attempt - MyChart message sent Reason for Outreach Community Monitoring/Network Navigator Pools AND Phone Line: CDM Patient Contacted: Unable or unnecessary to reach patient: Left message MyChart message sent Navigation Signature: Soraya Henry MA July 24, 2024 1:29 PM Soraya Henry MA 07/24/2024 3:16 PM Signed POPULATION HEALTH NAVIGATION OUTREACH Action/FYI Community Monitoring Navigation Pool/CDM Discuss/Due for: Follow Up/ Acute Problem Visit Increased incremental Chronic Sob with exertion Navigation Team- Please contact Pt to schedule (attempt to schedule within 48-72 hrs if possible) Outcome: 1st attempt - Left Message Postpone x1 Reason for Outreach Community Monitoring/Network Navigator Pools AND Phone Line: CDM Patient Contacted: Unable or unnecessary to reach patient: Left message Navigation Signature: Soraya Henry MA July 24, 2024 3:12 PM Soraya Henry MA 07/25/2024 10:13 AM Signed POPULATION HEALTH NAVIGATION OUTREACH Action/I Community Monitoring Navigation Pool/CDM Discuss/Due for: Follow Up/ Acute Problem Visit Increased incremental Chronic Sob with exertion Navigation Team- Please contact Pt to schedule (attempt to schedule within 48-72 hrs if possible) Outcome: 1st attempt - Spoke to patient Patient declined appointment for today with George Vázquez MD - scheduled appointment for tomorrow with George Vázquez MD Reason for Outreach Community Monitoring/Network Navigator Pools AND Phone Line: CDM Patient Contacted: Spoke to patient/parent/or legal guardian Patient identified by name and : Yes Community Monitoring/Network Navigator Pools AND Phone Line actions taken: Patient scheduled: Follow-Up Appointment 07/26/2024 in [facility] with GEORGE VÁZQUEZ - Follow Up/ Acute Problem Visit - PER RN, Increased incremental Chronic Sob with exertion 11/25/2024 in [facility] with GEORGE VÁZQUEZ - 6 month follow-up Navigation Signature: Soraya Henry MA July 25, 2024 10:09 AM Allergies As of Date: 07/24/2024 Noted Allergy Reaction LEVOFLOXACIN 06/01/2020 14 - Other: See Comments Comments: Tachycardia. Achilles tendonitis. Date Reviewed: 05/27/2024 Reviewed by: Pat Richey LPN - Fully Assessed Reason for Visit: CDM [Other] Cmt: Chronic Disease Management Routine Call Prescriptions as of 07/25/2024 - albuterol HFA (PROAIR HFA) 90 mcg/actuation inhaler Inhale 2 Puffs as instructed every 6 hours as needed for wheezing/shortness of breath. - ipratropium-albuterol (DUONEB) 0.5 mg-3 mg(2.5 mg base)/3 mL nebu Inhale 3 mL as instructed every 6 hours as needed. - clopidogrel (PLAVIX) 75 mg tablet Take 1 tablet by mouth once daily. - ezetimibe (ZETIA) 10 mg tablet Take 1 table (more content not included)...[facility]09-24-2024 Telephone encounter Note* Telephone Encounter - Xi Lakhani LPN - 07/23/2024 2:32 PM EDT Pt notified of provider message. Pt reports prednisone helped his achilles pain and also seemed to help his breathing a lot. Pt is asking if he can be prescribed a maintenance lower dose of prednisone or something like it because he felt better when taking med. Tried to schedule pt an appt to discuss medications but pt requested pcp to review and advise. Xi Lakhani LPN [facility]09-24-2024 Telephone encounter Note* Telephone Encounter - Kimberlee Craft LPN - 07/23/2024 2:19 PM EDT Left a message for pt to call the office and ask to speak to a nurse. Kimberlee Craft LPN [facility]09-24-2024 Telephone encounter Note* Telephone Encounter - George Vázquez MD - 07/23/2024 11:47 AM EDT Refused Prescriptions Disp Refills predniSONE (DELTASONE) 10 mg tablet 20 tablet 0 Sig: TAKE BY MOUTH 4 TABLETS DAILY FOR 2 DAYS, THEN 3 TABLETS DAILY FOR 2 DAYS, THEN 2 TABLETS DAILY FOR 2 DAYS, THEN 1 TABLET DAILY FOR 2 DAYS. Refused By: GEORGE VÁQZUEZ Reason for Refusal: A Refill not appropriate George Vázquez MD [facility]09-24-2024 Telephone encounter Note* Telephone Encounter - Pat Richey LPN - 07/23/2024 8:18 AM EDT Patient has been identified by name and date of : Yes Patient phones for refill(s): Requested Prescriptions Pending Prescriptions Disp Refills predniSONE (DELTASONE) 10 mg tablet 20 tablet 0 Sig: TAKE BY MOUTH 4 TABLETS DAILY FOR 2 DAYS, THEN 3 TABLETS DAILY FOR 2 DAYS, THEN 2 TABLETS DAILY FOR 2 DAYS, THEN 1 TABLET DAILY FOR 2 DAYS. Date of last office visit in primary care: 05/27/2024 Date of next office visit in primary care: 07/22/2024 Please advise. Thank you. Pat Richey LPN. [facility]09-24-2024 Telephone encounter Note* Telephone Encounter - Phil Mitchell MA - 07/23/2024 8:09 AM EDT Prescription Refill Information The patient has been identified by name and date of : Yes Caregiver verified no other encounters exist for this prescription request: Yes Caregiver confirmed with patient/requestor that no other refills are due, in the near future, with this provider at this time: Yes The last office visit in the department: 05/27/2024 Does the patient have a future office visit with this provider/department: Yes Requested Prescriptions Pending Prescriptions Disp Refills albuterol HFA (PROAIR HFA) 90 mcg/actuation inhaler 18 g 5 Sig: Inhale 2 Puffs as instructed every 6 hours as needed for wheezing/shortness of breath. Phil Mitchell MA July 23, 2024 8:11 AM [facility]09-24-2024 Miscellaneous Notes* Telephone Encounter - Phil Mitchell MA - 07/23/2024 8:09 AM EDT Prescription Refill Information The patient has been identified by name and date of : Yes Caregiver verified no other encounters exist for this prescription request: Yes Caregiver confirmed with patient/requestor that no other refills are due, in the near future, with this provider at this time: Yes The last office visit in the department: 05/27/2024 Does the patient have a future office visit with this provider/department: Yes Requested Prescriptions Pending Prescriptions Disp Refills albuterol HFA (PROAIR HFA) 90 mcg/actuation inhaler 18 g 5 Sig: Inhale 2 Puffs as instructed every 6 hours as needed for wheezing/shortness of breath. Phil Mitchell MA July 23, 2024 8:11 AM documented in this encounterCincinnati [facility]09-12-2024 NoteHNO ID: [id number] Author: LUZMARIA SPRAGUE RN Service: ? Author Type: Registered Nurse Type: Progress Notes Filed: 07/11/2024 12:57 Note Text: [facility] Telephonic Outreach Provider Action/FYI 2nd attempt Contacted for: Routine Telephonic Outreach Contact made with patient: No, left message. Luzmaria Sprague RN July 11, 2024 12:56 [facility]09-12-2024 History of Present illness Narrative* Luzmraia Sprague RN - 07/11/2024 12:49 PM EDT [facility] Telephonic Outreach Provider Action/FYI 2nd attempt Contacted for: Routine Telephonic Outreach Contact made with patient: No, left message. Luzmaria Sprague RN July 11, 2024 12:56 PM documented in this encounterCincinnati [facility]09-12-2024 NotePatient Outreach ([facility]) HORACE HENDERSON ([id number]) 1955 Date Time Provider Department 07/11/24 LUZMARIA SPRAGUE [facility] [place] During your visit today, we recorded the following information about you: Luzmaria Sprague RN 07/11/2024 12:57 PM Signed CDM Telephonic Outreach Provider Action/FYI 2nd attempt Contacted for: Routine Telephonic Outreach Contact made with patient: No, left message. Luzmaria Sprague RN July 11, 2024 12:56 PM Allergies As of Date: 07/11/2024 Noted Allergy Reaction LEVOFLOXACIN 06/01/2020 14 - Other: See Comments Comments: Tachycardia. Achilles tendonitis. Date Reviewed: 05/27/2024 Reviewed by: Pat Richey LPN - Fully Assessed Reason for Visit: CDM [Other] Cmt: Telephonic Outreach Prescriptions as of 07/11/2024 - ipratropium-albuterol (DUONEB) 0.5 mg-3 mg(2.5 mg base)/3 mL nebu Inhale 3 mL as instructed every 6 hours as needed. - clopidogrel (PLAVIX) 75 mg tablet Take 1 tablet by mouth once daily. - ezetimibe (ZETIA) 10 mg tablet Take 1 tablet by mouth once daily. - metoprolol succinate ER (TOPROL XL) 50 mg 24 hr tablet Take 1 tablet by mouth once daily. From [facility]. - potassium chloride SR (MICRO-K) 10 mEq CR capsule Take 1 capsule by mouth two times a day. - pantoprazole DR (PROTONIX) 20 mg tablet Take 1 tablet by mouth daily before breakfast. Take on empty stomach, 1/2 hr before meal. - predniSONE (DELTASONE) 10 mg tablet TAKE BY MOUTH 4 TABLETS DAILY FOR 2 DAYS, THEN 3 TABLETS DAILY FOR 2 DAYS, THEN 2 TABLETS DAILY FOR 2 DAYS, THEN 1 TABLET DAILY FOR 2 DAYS. - losartan (COZAAR) 50 mg tablet Take 1 tablet by mouth once daily. Per [facility]. - albuterol HFA (PROAIR HFA) 90 mcg/actuation inhaler Inhale 2 Puffs as instructed every 6 hours as needed for wheezing/shortness of breath. - budesonide-formoterol (SYMBICORT) 160-4.5 mcg/actuation inhaler Inhale 2 Puffs as instructed two times a day. - furosemide (LASIX) 40 mg tablet Take 1 tablet by mouth once daily. - isosorbide mononitrate ER (IMDUR) 30 mg 24 hr tablet Take 30 mg by mouth once daily. - rosuvastatin (CRESTOR) 40 mg tablet Take 1 tablet by mouth once daily. 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] 10/14/1995 OA (osteoarthritis) of knee [M17.9] 05/08/2012 Diverticulitis [K57.92] 01/09/2014 Sciatica [M54.30] 06/21/2012 04/29/2015 Hyperlipidemia [E78.5] 08/04/2012 Perforated diverticulum of large intestine [K57*08/20/2012 10/27/2012 Tobacco use disorder [F17.200] 10/27/2012 Chronic bronchitis [J42] 10/07/2013 Primary localized osteoarthrosis, lower leg [M1*11/04/2013 04/29/2015 Knee 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 [Z96.659] 11/04/2013 04/29/2015 Lumbar radiculopathy [M54.16] 12/13/2013 04/17/2018 DDD (degenerative disc disease), lumbar [M51.36]12/13/2013 Lumbar disc displacement without myelopathy [M5*04/04/2014 04/17/2018 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*05/08/2015 Presence of drug coated stent in right coronary*05/08/2015 Presence of drug coated stent in left circumfle*05/08/2015 Dupuytren's contracture of right hand [M72.0] 11/05/2015 Tobacco abuse [Z72.0] 11/06/2015 11/15/2016 Essential hypertension [I10] 11/10/2016 11/15/2016 Achilles tendinitis of both lower extremities [*06/23/2020 Nodule of lower lobe of left lung (low dose severino*05/05/2021 Status post insertion of drug-eluting stent int*09/30/2021 Acute on chronic respiratory failure with hypox*10/30/2022 Gastroesophageal reflux disease [K21.9] 05/24/2023 Encounter Status:Closed by LUZMARIA SPRAGUE RN on 07/11/24[facility]09-11-2024 NoteHNO ID: [id number] Author: LUZMARIA SPRAGUE RN Service: ? Author Type: Registered Nurse Type: Progress Notes Filed: 07/10/2024 15:11 Note Text: [facility] Telephonic Outreach Provider Action/FYI 1st attempt Contacted for: Routine Telephonic Outreach Contact made with patient: No, left message. Luzmaria Sprague RN July 10, 2024 3:10 [facility]09-11-2024 History of Present illness Narrative* Luzmaria Sprague RN - 07/10/2024 3:08 PM EDT [facility] Telephonic Outreach Provider Action/FYI 1st attempt Contacted for: Routine Telephonic Outreach Contact made with patient: No, left message. Luzmaria Sprague RN July 10, 2024 3:10 PM documented in this encounterCinc[facility]09-[facility]-2024 NotePatient Outreach ([facility]) HORACE HENDERSON ([id number]) 1955 Date Time Provider Department 07/10/24 LUZMARIA SPRAGUE [facility] During your visit today, we recorded the following information about you: Luzmaria Sprague RN 07/10/2024 3:11 PM Signed [facility] Telephonic Outreach Provider Action/FYI 1st attempt Contacted for: Routine Telephonic Outreach Contact made with patient: No, left message. Luzmaria Sprague RN July 10, 2024 3:10 PM Allergies As of Date: 07/10/2024 Noted Allergy Reaction LEVOFLOXACIN 06/01/2020 14 - Other: See Comments Comments: Tachycardia. Achilles tendonitis. Date Reviewed: 05/27/2024 Reviewed by: Pat Richey LPN - Fully Assessed Reason for Visit: CDM [Other] Cmt: Telephonic Outreach Prescriptions as of 07/10/2024 - ipratropium-albuterol (DUONEB) 0.5 mg-3 mg(2.5 mg base)/3 mL nebu Inhale 3 mL as instructed every 6 hours as needed. - clopidogrel (PLAVIX) 75 mg tablet Take 1 tablet by mouth once daily. - ezetimibe (ZETIA) 10 mg tablet Take 1 tablet by mouth once daily. - metoprolol succinate ER (TOPROL XL) 50 mg 24 hr tablet Take 1 tablet by mouth once daily. From [facility]. - potassium chloride SR (MICRO-K) 10 mEq CR capsule Take 1 capsule by mouth two times a day. - pantoprazole DR (PROTONIX) 20 mg tablet Take 1 tablet by mouth daily before breakfast. Take on empty stomach, 1/2 hr before meal. - predniSONE (DELTASONE) 10 mg tablet TAKE BY MOUTH 4 TABLETS DAILY FOR 2 DAYS, THEN 3 TABLETS DAILY FOR 2 DAYS, THEN 2 TABLETS DAILY FOR 2 DAYS, THEN 1 TABLET DAILY FOR 2 DAYS. - losartan (COZAAR) 50 mg tablet Take 1 tablet by mouth once daily. Per [facility]. - albuterol HFA (PROAIR HFA) 90 mcg/actuation inhaler Inhale 2 Puffs as instructed every 6 hours as needed for wheezing/shortness of breath. - budesonide-formoterol (SYMBICORT) 160-4.5 mcg/actuation inhaler Inhale 2 Puffs as instructed two times a day. - furosemide (LASIX) 40 mg tablet Take 1 tablet by mouth once daily. - isosorbide mononitrate ER (IMDUR) 30 mg 24 hr tablet Take 30 mg by mouth once daily. - rosuvastatin (CRESTOR) 40 mg tablet Take 1 tablet by mouth once daily. 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.1] 10/14/1995 OA (osteoarthritis) of knee [M17.9] 05/08/2012 Diverticulitis [K57.92] 01/09/2014 Sciatica [M54.30] 06/21/2012 04/29/2015 Hyperlipidemia [E78.5] 08/04/2012 Perforated diverticulum of large intestine [K57*08/20/2012 10/27/2012 Tobacco use disorder [F17.200] 10/27/2012 Chronic bronchitis [J42] 10/07/2013 Primary localized osteoarthrosis, lower leg [M1*11/04/2013 04/29/2015 Knee 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 [Z96.659] 11/04/2013 04/29/2015 Lumbar radiculopathy [M54.16] 12/13/2013 04/17/2018 DDD (degenerative disc disease), lumbar [M51.36]12/13/2013 Lumbar disc displacement without myelopathy [M5*04/04/2014 04/17/2018 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*05/08/2015 Presence of drug coated stent in right coronary*05/08/2015 Presence of drug coated stent in left circumfle*05/08/2015 Dupuytren's contracture of right hand [M72.0] 11/05/2015 Tobacco abuse [Z72.0] 11/06/2015 11/15/2016 Essential hypertension [I10] 11/10/2016 11/15/2016 Achilles tendinitis of both lower extremities [*06/23/2020 Nodule of lower lobe of left lung (low dose severino*05/05/2021 Status post insertion of drug-eluting stent int*09/30/2021 Acute on chronic respiratory failure with hypox*10/30/2022 Gastroesophageal reflux disease [K21.9] 05/24/2023 Encounter Status:Closed by LUZMARIA SPRAGUE RN on 07/10/24[facility]08-21-2024 NoteHNO ID: [id number] Author: DARLYN MORENO RN Service: ? Author Type: Registered Nurse Type: Progress Notes Filed: 06/19/2024 16:06 Note Text: CDM Telephonic Outreach Provider Action/FYI Instructed to call PCP with any changes in condition Pt verbalized understanding and appreciation for call Contacted for: Routine Telephonic Outreach Contact made with patient: No, left message. Darlyn Moreno RN June 19, 2024 4:04 [facility]08-21-2024 History of Present illness Narrative* Darlyn Moreno RN - 06/19/2024 4:02 PM EDT [facility] Telephonic Outreach Provider Action/FYI Instructed to call PCP with any changes in condition Pt verbalized understanding and appreciation for call Contacted for: Routine Telephonic Outreach Contact made with patient: No, left message. Darlyn Moreno RN June 19, 2024 4:04 PM * Darlyn Moreno RN - 06/18/2024 4:52 PM EDT [facility] Telephonic Outreach Provider Action/FYI Left a message to verify symptom status, instructed to contact PCP for condition changes and needs. Contacted for: Routine Telephonic Outreach Contact made with patient: No, left message. Darlyn Moreno RN June 18, 2024 4:53 PM documented in this encounterCincinnati [facility]08-20-2024 NoteHNO ID: [id number] Author: DARLYN MORENO RN Service: ? Author Type: Registered Nurse Type: Progress Notes Filed: 06/19/2024 16:06 Note Text: [facility] Telephonic Outreach Provider Action/FYI Left a message to verify symptom status, instructed to contact PCP for condition changes and needs. Contacted for: Routine Telephonic Outreach Contact made with patient: No, left message. Darlyn Moreno RN June 18, 2024 4:53 [facility]08-20-2024 NotePatient Outreach ([facility]) HORACE HENDERSON ([id number]) 1955 M Date Time Provider Department 06/18/24 DARLYN MORENO During your visit today, we recorded the following information about you: Darlyn Moreno RN 06/19/2024 4:06 PM Signed CDM Telephonic Outreach Provider Action/FYI Left a message to verify symptom status, instructed to contact PCP for condition changes and needs. Contacted for: Routine Telephonic Outreach Contact made with patient: No, left message. Darlyn Moreno RN June 18, 2024 4:53 PM Darlyn Moreno RN 06/19/2024 4:06 PM Signed CD Telephonic Outreach Provider Action/FYChapis Instructed to call PCP with any changes in condition Pt verbalized understanding and appreciation for call Contacted for: Routine Telephonic Outreach Contact made with patient: No, left message. Darlyn Moreno RN June 19, 2024 4:04 PM Allergies As of Date: 06/18/2024 Noted Allergy Reaction LEVOFLOXACIN 06/01/2020 14 - Other: See Comments Comments: Tachycardia. Achilles tendonitis. Date Reviewed: 05/27/2024 Reviewed by: Pat Richey LPN - Fully Assessed Reason for Visit: Community Monitoring Outreach [Other] Prescriptions as of 06/26/2024 - ipratropium-albuterol (DUONEB) 0.5 mg-3 mg(2.5 mg base)/3 mL nebu Inhale 3 mL as instructed every 6 hours as needed. - clopidogrel (PLAVIX) 75 mg tablet Take 1 tablet by mouth once daily. - ezetimibe (ZETIA) 10 mg tablet Take 1 tablet by mouth once daily. - metoprolol succinate ER (TOPROL XL) 50 mg 24 hr tablet Take 1 tablet by mouth once daily. From [facility]. - potassium chloride SR (MICRO-K) 10 mEq CR capsule Take 1 capsule by mouth two times a day. - pantoprazole DR (PROTONIX) 20 mg tablet Take 1 tablet by mouth daily before breakfast. Take on empty stomach, 1/2 hr before meal. - predniSONE (DELTASONE) 10 mg tablet TAKE BY MOUTH 4 TABLETS DAILY FOR 2 DAYS, THEN 3 TABLETS DAILY FOR 2 DAYS, THEN 2 TABLETS DAILY FOR 2 DAYS, THEN 1 TABLET DAILY FOR 2 DAYS. - losartan (COZAAR) 50 mg tablet Take 1 tablet by mouth once daily. [facility]. - albuterol HFA (PROAIR HFA) 90 mcg/actuation inhaler Inhale 2 Puffs as instructed every 6 hours as needed for wheezing/shortness of breath. - budesonide-formoterol (SYMBICORT) 160-4.5 mcg/actuation inhaler Inhale 2 Puffs as instructed two times a day. - furosemide (LASIX) 40 mg tablet Take 1 tablet by mouth once daily. - isosorbide mononitrate ER (IMDUR) 30 mg 24 hr tablet Take 30 mg by mouth once daily. - rosuvastatin (CRESTOR) 40 mg tablet Take 1 tablet by mouth once daily. 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.1] 10/14/1995 OA (osteoarthritis) of knee [M17.9] 05/08/2012 Diverticulitis [K57.92] 01/09/2014 Sciatica [M54.30] 06/21/2012 04/29/2015 Hyperlipidemia [E78.5] 08/04/2012 Perforated diverticulum of large intestine [K57*08/20/2012 10/27/2012 Tobacco use disorder [F17.200] 10/27/2012 Chronic bronchitis [J42] 10/07/2013 Primary localized osteoarthrosis, lower leg [M1*11/04/2013 04/29/2015 Knee 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 [Z96.659] 11/04/2013 04/29/2015 Lumbar radiculopathy [M54.16] 12/13/2013 04/17/2018 DDD (degenerative disc disease), lumbar [M51.36]12/13/2013 Lumbar disc displacement without myelopathy [M5*04/04/2014 04/17/2018 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*05/08/2015 Presence of drug coated stent in right coronary*05/08/2015 Presence of drug coated stent in left circumfle*05/08/2015 Dupuytren's contracture of right hand [M72.0] 11/05/2015 Tobacco abuse [Z72.0] 11/06/2015 11/15/2016 Essential hypertension [I10] 11/10/2016 11/15/2016 Achilles tendinitis of both lower extremities [*06/23/2020 Nodule of lower lobe of left lung (low dose severino*05/05/2021 Status post insertion of drug-eluting stent int*09/30/2021 Acute on chronic respiratory failure with hypox*10/30/2022 Gastroesophageal reflux disease [K21.9] 05/24/2023 Encounter Status:Closed by DARLYN MORENO on 06/19/24[facility]08-16-2024 Telephone encounter Note* Telephone Encounter - Elsy Moreno LPN - 06/14/2024 10:11 AM EDT Prescription Refill Information Patient stated that is going on an 8 day cruise and is getting all his meds ready for his trip to [facility] The patient has been identified by name and date of : Yes Caregiver verified no other encounters exist for this prescription request: Yes Caregiver confirmed with patient/requestor that no other refills are due, in the near future, with this provider at this time: Yes The last office visit in the department: 05/27/24 Does the patient have a future office visit with this provider/department: Yes Requested Prescriptions Pending Prescriptions Disp Refills ipratropium-albuterol (DUONEB) 0.5 mg-3 mg(2.5 mg base)/3 mL nebu 60 Each 5 Sig: Inhale 3 mL as instructed every 6 hours as needed. Elsy Moreno LPN June 14, 2024 10:11 AM [facility]08-16-2024 Miscellaneous Notes* Telephone Encounter - Elsy Moreno LPN - 06/14/2024 10:11 AM EDT Prescription Refill Information Patient stated that is going on an 8 day cruise and is getting all his meds ready for his trip to [facility] The patient has been identified by name and date of : Yes Caregiver verified no other encounters exist for this prescription request: Yes Caregiver confirmed with patient/requestor that no other refills are due, in the near future, with this provider at this time: Yes The last office visit in the department: 05/27/24 Does the patient have a future office visit with this provider/department: Yes Requested Prescriptions Pending Prescriptions Disp Refills ipratropium-albuterol (DUONEB) 0.5 mg-3 mg(2.5 mg base)/3 mL nebu 60 Each 5 Sig: Inhale 3 mL as instructed every 6 hours as needed. Elsy Moreno LPN June 14, 2024 10:11 AM documented in this encounterCincinnati [facility]07-29-2024 History of Present illness Narrative* George Vázquez MD - 05/27/2024 12:46 PM EDT This note was created using Cuponzote. Subjective Horace Henderson is a 68 year old male. He was doing well in general. He had chronic Achilles tendonitis and had temporary symptomatic relief from prednisone prescribed by his family practice nurse practitioner in the past.He was leaving for travel next month, and requested a prescription to help. His other conditions were stable. 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 He was taking metoprolol, but was only able to tolerate this once daily. Review of Systems Constitutional: Negative for appetite change, fatigue and unexpected weight change. HENT: Negative. Eyes: Negative for visual disturbance. Respiratory: Negative. No change. Cardiovascular: Negative. No change. Gastrointestinal: Negative for abdominal pain, constipation, diarrhea, nausea and vomiting. Genitourinary: Negative for difficulty urinating and dysuria. Musculoskeletal: See HPI Neurological: Negative. ACTIVE PROBLEM LIST Htn (Hypertension) Cad (Coronary Artery Disease) S/P Cabg X 2 Oa (Osteoarthritis) of Knee Hyperlipidemia Tobacco Use Disorder Chronic bronchitis Ddd (Degenerative Disc Disease), Lumbar Failed Cabg (Coronary Artery Bypass Graft) Presence of Drug Coated Stent in Right Coronary Artery Presence of Drug Coated Stent in Left Circumflex Coronary Artery Dupuytren's Contracture of Right Hand Achilles Tendinitis of Both Lower Extremities Nodule of lower lobe of left lung (low dose lung CT) Status Post Insertion of Drug-Eluting Stent into Right Coronary Artery for Coronary Artery Disease Acute On Chronic Respiratory Failure With Hypoxia (Hcc) Gastroesophageal Reflux Disease Current Outpatient Medications Medication Sig albuterol HFA (PROAIR HFA) 90 mcg/actuation inhaler Inhale 2 Puffs as instructed every 6 hours as needed for wheezing/shortness of breath. budesonide-formoterol (SYMBICORT) 160-4.5 mcg/actuation inhaler Inhale 2 Puffs as instructed two times a day. ipratropium-albuterol (DUONEB) 0.5 mg-3 mg(2.5 mg base)/3 mL nebu Inhale 3 mL as instructed every 6hours as needed. furosemide (LASIX) 40 mg tablet Take 1 tablet by mouth once daily. isosorbide mononitrate ER (IMDUR) 30 mg 24 hr tablet Take 30 mg by mouth once daily. rosuvastatin (CRESTOR) 40 mg tablet Take 1 tablet by mouth once daily. clopidogrel (PLAVIX) 75 mg tablet Take 1 tablet by mouth once daily. ezetimibe (ZETIA) 10 mg tablet Take 1 tablet by mouth once daily. metoprolol succinate ER (TOPROL XL) 50 mg 24 hr tablet Take 1 tablet by mouth once daily. From [facility]. potassium chloride SR (MICRO-K) 10 mEq CR capsule Take 1 capsule by mouth two times a day. pantoprazole DR (PROTONIX) 20 mg tablet Take 1 tablet by mouth daily before breakfast. Take on empty stomach, 1/2 hr before meal. predniSONE (DELTASONE) 10 mg tablet TAKE BY MOUTH 4 TABLETS DAILY FOR 2 DAYS, THEN 3 TABLETS DAILY FOR 2 DAYS, THEN 2 TABLETS DAILY FOR 2 DAYS, THEN 1 TABLET DAILY FOR 2 DAYS. losartan (COZAAR) 50 mg tablet Take 1 tablet by mouth once daily. [facility]. No current facility-administered medications for this visit. Objective BP 116/72 (BP Site: Left Arm, BP Position: Sitting, BP Cuff Size: Large Adult) Pulse 80 Temp 37C (98.6 F) (Temporal) Resp 18 Ht 170.2 cm (5' 7) Wt 80.7 kg (178 lb) BMI 27.88 kg/m Physical Exam Constitutional: General: He is not in acute distress. HENT: Head: Normocephalic. Eyes: Conjunctiva/sclera: Conjunctivae normal. Cardiovascular: Rate and Rhythm: Normal rate and regular rhythm. Heart sounds: No murmur heard. No gallop. Pulmonary: Effort: No respiratory distress. Breath sounds: No wheezing or rales. Abdominal: Palpations: Abdomen is soft. Tenderness: There is no abdominal tenderness. Musculoskeletal: Right lower le+ Pitting Edema present. Left lower le+ Pitting Edema present. Right ankle: Right Achilles Tendon: Tenderness present. Left ankle: Left Achilles Tendon: Tenderness present. Neurological: General: No focal deficit present. Mental Status: He is alert. Gait: Gait normal. Assessment and Plan 1. Medicare annual wellness visit, subsequent - ICD9: V70.0, ICD10: Z00.00 (primary diagnosis) See wellness note. 2. Coronary artery disease involving [place] coronary artery of [place] heart without angina pectoris- ICD9: 414.01, ICD10: I25.10 Stable. - CLOPIDOGREL 75 MG TABLET - METOPROLOL SUCCINATE ER 50 MG TABLET,EXTENDED RELEASE 24 HR 3. Hyperlipidemia, unspecified hyperlipidemia type - ICD9: 272.4, ICD10: E78.5 - Control undetermined, due for labs - He had labs done at [facility]. Request. - EZETIMIBE 10 MG TABLET 4. Chronic bronchitis, unspecified chronic bronchitis type (HCC) - ICD9: 491.9, ICD10: J42 - Stable, and followed by pulmonary. 5. Primary hypertension - ICD9: 401.9, ICD10: I10 - Controlled - POTASSIUM CHLORIDE ER 10 MEQ CAPSULE,EXTENDED RELEASE - LOSARTAN 50 MG TABLET 6. Screening for depression - ICD9: V79.0, ICD10: Z13.31 Neg. - DEPRESSION SCREENING 7. Encounter for screening examination for other mental health and behavioral disorders - ICD9: V79.8, ICD10: Z13.39 Neg. - ANXIETY SCREENING 8. Gastroesophageal reflux disease, unspecified whether esophagitis present - ICD9: 530.81, ICD10: K21.9 - Discontinue OMEPRAZOLE due to interaction with clopidogrel. - PANTOPRAZOLE 20 MG TABLET,DELAYED RELEASE 9. Achilles tendinitis of both lower extremities - ICD9: 726.71, ICD10: M76.61, M76.62 Risks, benefits of medication were reviewed. Use judiciously. - PREDNISONE 10 MG TABLET 10. Acute on chronic respiratory failure with hypoxia (HCC) - ICD9: 518.84, 799.02, ICD10: J96.21 - Stable. George Vázquez MD * George Vázquez MD - 05/27/2024 12:22 PM EDT Images from the original note were not included. Horace Henderson is a 68 year old male here for a Medicare wellness visit. Medicare Health Risk Assessment General Health Good Exercise: Minutes/Day 0 min Exercise: Days/Week 0 days Alcohol: Daily Use 2-3 times a week Alcohol: Drinks/Day 1 or 2 Alcohol: 6 or more drinks Never Feel off balance No Concerns: Teeth/Dentures No Concerns: Sexual function No Troubled by feelings None of the above Frequency: Eating healthy diet Several days ADLs requiring help Housework Safety precautions in home/vehicle Yes Smoke, vape, chews tobacco Yes, but I'm not ready to quit Difficulty hearing No Difficulty seeing No Current Providers Specialists: I have reviewed specialist-related care of the patient in the medical record. Current care team: Patient Care Team: George Vázquez MD as PCP - General (Internal Medicine) Mauro Lay APRN, WIRE DRAWING SETTER, [facility] (Cardiology) Janine Hall MD, [facility]. Chad Zarate DPM, Podiatry. [facility]. Medical/Family history review Reviewed and updated problem list, medical/surgical/family/social history, medications, and allergies. Opioid use review Opioid Medications (last 90 days) No data to display Anxiety/Depression screening Recommendation: no further intervention at this time Cognitive screening Mini Cog Score: 4 Cognitive screening reviewed and No further action needed (score 3-5). Functional Observation Was the patient's Timed Up & Go test unsteady or ? 12 seconds? No Advance Care Planning Patient did not wish or was not able to name a surrogate decision maker or provide an advance care plan Measurements BP 116/72 (BP Site: Left Arm, BP Position: Sitting, BP Cuff Size: Large Adult) Pulse 80 Temp 37C (98.6 F) (Temporal) Resp 18 Ht 170.2 cm (5' 7) Wt 80.7 kg (178 lb) BMI 27.88 kg/m Vision Screening: Follows with optometry/ophthalmology Right: 20/30 Left: 20/ 40 Both: 20/30 Assessment/Plan Medicare annual wellness visit, subsequent (Z00.00) - Counseled on healthy diet and regular exercise - Fall avoidance information provided - Personalized prevention plan provided - Smoking cessation encouraged; discussed risks to health and quitting strategies. Patient is not ready to quit documented in this encounterCinc[facility]07-29-2024 Instructions* Patient Instructions* George Vázquez MD - 05/27/2024 12:37 PM EDT SHINGLES VACCINES X 2. RSV VACCINE X 1. documented in this encounterCinc[facility]07-24-2024 History of Present illness Narrative* Darlyn Moreno RN - 05/22/2024 11:13 AM EDT CDM Telephonic Outreach Provider Action/FYI CDM: Chronic Bronchitis, Pt denies symptom changes, concerns or needs, Pt follows with Dr. Hall Pulmonology [facility], uses Albuterol inhaler 2-3 x daily ADL's Falls, Goals, SDH updated Contacted for: Engagement Contact made with patient: Yes Patient identified by name and date of . Discussed care with patient Outcomes: Patient switched from [facility] to telephone outreach Are you experiencing any new or worsening symptoms you need to talk about today? No Based on carousel operator, the following disposition is advised: No symptoms or symptoms present, not severe. Routed to: No Action Needed KAROL Education Provided this Outreach: No Darlyn Moreno RN May 22, 2024 3:55 PM documented in this encounterCincinnati [facility]07-17-2024 Telephone encounter Note * Telephone Encounter - Pat Richey LPN - 05/15/2024 1:17 PM EDT Called [facility], Patient has an active RX for Omeprazole, written 03/01/2024 with refills remaining, it is to early to fill. Left msg on identified vm. Patient has been identified by name and date of : Yes Patient phones for refill(s): Requested Prescriptions Pending Prescriptions Disp Refills albuterol HFA (PROAIR HFA) 90 mcg/actuation inhaler 18 g 5 Sig: Inhale 2 Puffs as instructed every 6 hours as needed for wheezing/shortness of breath. Date of last office visit in primary care: 11/23/2023 Date of next office visit in primary care: 05/27/2024 Please advise. Thank you. Pat Richey LPN. [facility]07-17-2024 Miscellaneous Notes* Telephone Encounter - Pat Richey LPN - 05/15/2024 1:17 PM EDT [facility], Patient has an active RX for Omeprazole, written 03/01/2024 with refills remaining, it is to early to fill. Left msg on identified vm. Patient has been identified by name and date of : Yes Patient phones for refill(s): Requested Prescriptions Pending Prescriptions Disp Refills albuterol HFA (PROAIR HFA) 90 mcg/actuation inhaler 18 g 5 Sig: Inhale 2 Puffs as instructed every 6 hours as needed for wheezing/shortness of breath. Date of last office visit in primary care: 11/23/2023 Date of next office visit in primary care: 05/27/2024 Please advise. Thank you. Pat Richey LPN. documented in this encounterCincinnati [facility]06-28-2024 History of Present illness Narrative* Darlyn Moreno RN - 04/26/2024 4:48 PM EDT CDM Telephonic Outreach Provider Action/FYI CDM: Chronic Bronchitis Left a message to verify symptom status, instructed to contact PCP for condition changes and needs. Goals updated Contacted for: Goals/Falls/ADL Update Contact made with patient: No, left message. Darlyn Moreno RN April 26, 2024 4:49 PM * Darlyn Moreno RN - 04/25/2024 8:41 AM EDT CDM Telephonic Outreach Provider Action/FYI CDM: Chronic Bronchitis Left a message to verify symptom status, instructed to contact PCP for condition changes and needs. Goals updated Contacted for: Engagement Contact made with patient: No, left message. Darlyn Moreno RN April 25, 2024 7:58 PM documented in this encounterCincinnati [facility]05-02-2024 Telephone encounter Note * Telephone Encounter - Phil Mitchell MA - 02/29/2024 11:00 AM EDT Requested Prescriptions Pending Prescriptions Disp Refills omeprazole (PRILOSEC) 20 mg capsule 90 capsule 3 Sig: Take 1 capsule by mouth once daily. Date of last office visit in primary care: 11/23/2023 Date of next office visit in primary care: 02/29/2024 Please advise. Thank you. Phil Mitchell MA. [facility]05-02-2024 Miscellaneous Notes* Telephone Encounter - Phil Mitchell MA - 02/29/2024 11:00 AM EDT Requested Prescriptions Pending Prescriptions Disp Refills omeprazole (PRILOSEC) 20 mg capsule 90 capsule 3 Sig: Take 1 capsule by mouth once daily. Date of last office visit in primary care: 11/23/2023 Date of next office visit in primary care: 02/29/2024 Please advise. Thank you. Phil Mitchell MA. documented in this encounterCincinnati [facility]05-02-2024 Telephone encounter Note * Telephone Encounter - Phil Mitchell MA - 02/29/2024 10:51 AM EDT Requested Prescriptions Pending Prescriptions Disp Refills losartan (COZAAR) 100 mg tablet 45 tablet 3 Sig: Take 0.5 tablets by mouth once daily. 1/2 tab once daily Date of last office visit in primary care: 11/23/2023 Date of next office visit in primary care: 05/27/2024 Please advise. Thank you. Phil Mitchell MA. [facility]05-02-2024 Miscellaneous Notes* Telephone Encounter - Phil Mitchell MA - 02/29/2024 10:51 AM EDT Requested Prescriptions Pending Prescriptions Disp Refills losartan (COZAAR) 100 mg tablet 45 tablet 3 Sig: Take 0.5 tablets by mouth once daily. 1/2 tab once daily Date of last office visit in primary care: 11/23/2023 Date of next office visit in primary care: 05/27/2024 Please advise. Thank you. Phil Mitchell MA. documented in this encounterCincinnati [facility]03-26-2024 History of Present illness Narrative* Darlyn Moreno RN - 01/23/2024 4:27 PM EDT CDM Telephonic Outreach Provider Action/FYI CDM: Chronic Bronchitis Left a message to verify symptom status, instructed to contact PCP for condition changes and needs. Contacted for: Engagement Contact made with patient: No, left message. Darlyn Moreno RN January 23, 2024 4:27 PM documented in this encounterC[facility]02-08-2024 History of Present illness Narrative* Darlyn Moreno RN - 12/07/2023 10:11 AM EST CDM Telephonic Outreach Provider Action/FYI CDM: Chronic Bronchitis Left a message to verify symptom status and needs. Instructed to call PCP with any symptom or condition changes. Contacted for: Routine Telephonic Outreach Contact made with patient: No, left message. Darlyn Moreno RN December 07, 2023 10:11 AM * Darlyn Moreno RN - 12/06/2023 12:12 PM EST CDM Telephonic Outreach Provider Action/FYI CDM: Chronic Bronchitis Called Pt, unable to leave?a message to verify symptom status and needs. COPD Karol education sent via My Chart Contacted for: Engagement Contact made with patient: No, unable to leave message. Will reattempt call Darlyn Moreno RN December 06, 2023 12:12 PM documented in this encounterCincinnati [facility]12-20-2023 History of Present illness Narrative* Sheryl Hassan RT(R) - 10/18/2023 8:00 AM EST Radiology Service Progress Note PATIENT NAME: Horace Henderson DATE OF SERVICE: October 18, 2023 TIME: 8:05 AM PATIENT IDENTITY VERIFICATION COMPLETED USING TWO (2) IDENTIFIERS: Name and Date of confirmedby patient verbally. FALL SCREENING: Has the patient had 2 falls in the last year or 1 fall with injury or currently using an Ambulatory Assistive Device (Walker, Cane, Wheelchair, Crutches, etc.)? No PATIENT GENDER DATA: Male PATIENT RELEVANT IMPLANT DATA REVIEWED: Yes RADIOLOGY DEPARTMENT: General X-ray: Exam(s) Completed: Chest X-Ray PERIPHERAL IV DATA: Not applicable SIGNED BY: RT Loreta(R) October 18, 2023 8:05 AM documented in this encounterCincinnati [facility]12-06-2023 Miscellaneous Notes* Telephone Encounter - Pat Richey LPN - 10/04/2023 3:29 PM EST Horace our office did receive your refill request however, a new prescription for Bufesonide-Formoterol (Symbicort) was sent to [facility], 10/02/2023. Please check with your pharmacy. Pat Richey LPN documented in this [facility]12-02-2023 Miscellaneous Notes* Telephone Encounter - Marleni Ernandez - 09/30/2023 11:18 AM EST Requested Prescriptions Pending Prescriptions Disp Refills budesonide-formoterol (SYMBICORT) 160-4.5 mcg/actuation inhaler Sig: Inhale 2 Puffs as instructed two times a day. RAI 05/24/2023 NOV 11/21/2023 Marleni Ernandez MA documented in this [facility]11-09-2023 Miscellaneous Notes* Telephone Encounter - Kimberlee Craft LPN - 09/07/2023 4:51 PM EST Records show a valid rx at the pharmacy. Kimberlee Craft LPN documented in this [facility]10-27-2023 Miscellaneous Notes* Telephone Encounter - Phil Mitchell Ma - 08/25/2023 1:23 PM EDT RAI: 05/24/2023 Last refill: 05/24/2023 QTY: 60 / 18 g Refills: 5 documented in this [facility]09-05-2023 Miscellaneous Notes* Telephone Encounter - Pat Richey LPN - 07/04/2023 3:49 PM EDT Left message on vm, RX for Duoneb written 05/24/2023 for 60 each, 5 refills. Please check with your pharmacy. Pat Richey LPN documented in this encounterCincinnati [facility]08-23-2023 Miscellaneous Notes* Telephone Encounter - Pat Richey LPN - 06/21/2023 9:13 AM EDT Horace, our office did receive your refill request for Ipratropium-Albuterol (Duoneb) however, a new prescription was sent to [facility] on 05/24/2023 with 5 refills. Check with your pharmacy, they should have the prescription on file waiting for you to call to fill. Pat Richey LPN documented in this encounterCincinnati [facility]08-08-2023 History of Present illness Narrative* Darlyn Moreno RN - 06/06/2023 5:20 PM EDT CDM Telephonic Outreach Provider Action/FYI CDM: Chronic Bronchitis Left a message for Pt to verify symptom status and needs and to provide My Chart Home Monitoring questionnaire location and updates.. Contacted for: Engagement Contact made with patient: No, left message. Darlyn Moreno RN June 06, 2023 5:20 PM * Darlyn Moreno RN - 06/01/2023 12:08 PM EDT CDM Telephonic Outreach Provider Action/FYI CDM: Chronic Bronchitis Called Pt to verify symptom status and needs and to provide My Chart -Home Monitoring questionnairelocation, line was busy, unable to leave a message. Contacted for: Engagement Contact made with patient: No, unable to leave message. Will reattempt call Darlyn Moreno RN June 01, 2023 12:09 PM documented in this encounterCincinnati [facility]07-31-2023 Nurse Note* Allyssa Thomas RN - 05/29/2023 1:06 PM EDT Area to left buttock is without warmth, the edges are well approximated and the incision line is clean, dry and intact. No dressing was in place. Reviewed pathology with patient. Advised that if he has any further questions or concerns, please call our office. Allyssa Thomas RN documented in this encounterCincinnati [facility]07-26-2023 Instructions* Patient Instructions* George Vázquez MD - 05/24/2023 4:12 PM EDT Have you ever planned for future healthcare decisions with a power of district attorney, living will, or advance directives? Yes. Have you shared those records with your doctor? No and No. Please bring a copyto your next appointment or email to [email or web address] Advance Directive Forms Advanced Directives Forms ([place]) FORMS: [email or web address] INFORMATIONAL BROCHURE: [email or web address] Advance Directives (non-[place]) FORMS: [email or web address] [email or web address] Please bring completed forms to your next appointment or email them to . Patient Resources How to Get Started Talking with Loved Ones about your Wishes at the End of Life [email or web address]-content/[email or web address] How to Navigate Conversations with your Care Team around your Preferences [email or web address] documented in this encounterCincinnati [facility]07-26-2023 History of Present illness Narrative* George Vázquez MD - 05/24/2023 4:09 PM EDT This note was created using [employer]. Subjective Horace Henderson is a 67 year old male. He was doing well. Stress test this morning was negative. GERD was controlled, and he was only taking omeprazole every other day. One month supply of nebulizersolution was requested, normally prescribed by his clinical rehab specialist. Review of Systems Constitutional: Negative for appetite change, fatigue and unexpected weight change. HENT: Negative. Respiratory: Negative for cough and shortness of breath. Cardiovascular: Negative for chest pain, palpitations and leg swelling. Gastrointestinal: Negative for abdominal pain, constipation and diarrhea. Genitourinary: Negative for difficulty urinating and hematuria. Neurological: Negative for dizziness and headaches. Psychiatric/Behavioral: Negative for dysphoric mood. ACTIVE PROBLEM LIST Htn (Hypertension) Cad (Coronary Artery Disease) S/P Cabg X 2 Oa (Osteoarthritis) of Knee Hyperlipidemia Tobacco Use Disorder Chronic bronchitis Ddd (Degenerative Disc Disease), Lumbar Failed Cabg (Coronary Artery Bypass Graft) Presence of Drug Coated Stent in Right Coronary Artery Presence of Drug Coated Stent in Left Circumflex Coronary Artery Dupuytren's Contracture of Right Hand Achilles Tendinitis of Both Lower Extremities Nodule of lower lobe of left lung (low dose lung CT) Status Post Insertion of Drug-Eluting Stent into Right Coronary Artery for Coronary Artery Disease Acute On Chronic Respiratory Failure With Hypoxia (Hcc) Gastroesophageal Reflux Disease Social History Tobacco Use Smoking status: Every Day Packs/day: 0.50 Years: 34.00 Total pack years: 17.00 Types: Cigarettes, Pipe Start date: 06/17/1984 Smokeless tobacco: Never Vaping Use Vaping Use: Never used Substance Use Topics Alcohol use: Yes Alcohol/week: 9.2 standard drinks of alcohol Types: 4 Standard drinks or equivalent, 4 Mixed Drinks per week Comment: 2 mixed drinks 2 times per week. Drug use: No Frequency: 2.0 times per week Current Outpatient Medications Medication Sig nystatin (MYCOSTATIN) 100,000 unit/mL suspension Take 5 mL by mouth four times daily for 10 days. 1tsp swish in mouth for several minutes, then swallow (or expectorate) 4 times daily until gone. metoprolol succinate ER (TOPROL XL) 50 mg 24 hr tablet Take 1 tablet by mouth twice daily. furosemide (LASIX) 40 mg tablet Take 1 tablet by mouth once daily. losartan (COZAAR) 100 mg tablet Take 0.5 tablets by mouth once daily. 1/2 tab once daily isosorbide mononitrate ER (IMDUR) 30 mg 24 hr tablet Take 30 mg by mouth once daily. rosuvastatin (CRESTOR) 40 mg tablet Take 1 tablet by mouth once daily. budesonide-formoterol (SYMBICORT) 160-4.5 mcg/actuation inhaler Inhale 2 Puffs as instructed twice daily. aspirin 81 mg chewable tablet Take 81 mg by mouth once daily. potassium chloride SR (MICRO-K) 10 mEq CR capsule Take 1 capsule by mouth twice daily. ipratropium-albuterol (DUONEB) 0.5 mg-3 mg(2.5 mg base)/3 mL nebu Inhale 3 mL as instructed every 6hours as needed. albuterol HFA (PROAIR HFA) 90 mcg/actuation inhaler Inhale 2 Puffs as instructed every 6 hours as needed for wheezing/shortness of breath. clopidogrel (PLAVIX) 75 mg tablet Take 1 tablet by mouth once daily. omeprazole (PRILOSEC) 20 mg capsule Take 1 capsule by mouth once daily. No current facility-administered medications for this visit. Objective BP 100/64 (BP Site: Left Arm, BP Position: Sitting, BP Cuff Size: Large Adult) Pulse 96 Resp 18 Ht 169.2 cm (5' 6.6) Wt 78.9 kg (174 lb) SpO2 94% BMI 27.58 kg/m Physical Exam Constitutional: General: He is not in acute distress. Appearance: He is not ill-appearing. Eyes: General: No scleral icterus. Conjunctiva/sclera: Conjunctivae normal. Cardiovascular: Rate and Rhythm: Normal rate and regular rhythm. Heart sounds: No murmur heard. No gallop. Pulmonary: Effort: No respiratory distress. Breath sounds: No wheezing or rales. Abdominal: General: There is no distension. Palpations: Abdomen is soft. Tenderness: There is no abdominal tenderness. Musculoskeletal: Right lower leg: No edema. Left lower leg: No edema. Lymphadenopathy: Cervical: No cervical adenopathy. Neurological: Mental Status: He is alert. Gait: Gait normal. Component Latest Ref Rng & Units 05/22/2023 Protein, Total 6.3 - 8.0 g/dL 6.4 Albumin 3.9 - 4.9 g/dL 4.1 Calcium 8.5 - 10.2 mg/dL 9.8 Bilirubin, Total 0.2 - 1.3 mg/dL 0.5 Alkaline Phosphatase 38 - 113 U/L 78 AST 14 - 40 U/L 15 ALT 10 - 54 U/L 12 Glucose 74 - 99 mg/dL 97 BUN 9 - 24 mg/dL 14 Creatinine 0.73 - 1.22 mg/dL 1.21 Sodium 136 - 144 mmol/L 140 Potassium 3.7 - 5.1 mmol/L 3.8 Chloride 97 - 105 mmol/L 100 CO2 22 - 30 mmol/L 28 Anion Gap 9 - 18 mmol/L 12 eGFR >=60 mL/min/1.73m 65 Hemoglobin A1C 4.3 - 5.6 % 6.1 (H) Estimated Average Glucose mg/dL 128 Assessment and Plan 1. Medicare annual wellness visit, subsequent - ICD9: V70.0, ICD10: Z00.00 (primary diagnosis) See wellness note. 2. Primary hypertension - ICD9: 401.9, ICD10: I10 - Controlled - Continue current medications - Encouraged sodium restriction, DASH or Mediterranean diet - Discussed need for and benefit of weight loss. BMI 27.58 kg/(m^2) - POTASSIUM CHLORIDE ER 10 MEQ CAPSULE,EXTENDED RELEASE 3. Chronic bronchitis, unspecified chronic bronchitis type (HCC) - ICD9: 491.9, ICD10: J42 Stable. Refilled. - IPRATROPIUM 0.5 MG-ALBUTEROL 3 MG (2.5 MG BASE)/3 ML NEBULIZATION SOLN - ALBUTEROL SULFATE HFA 90 MCG/ACTUATION AEROSOL INHALER 4. Acute on chronic respiratory failure with hypoxia (HCC) - ICD9: 518.84, 799.02, ICD10: J96.21 Stable. 5. Coronary artery disease involving [place] coronary artery of [place] heart without angina pectoris- ICD9: 414.01, ICD10: I25.10 - CLOPIDOGREL 75 MG TABLET 6. Gastroesophageal reflux disease, unspecified whether esophagitis present - ICD9: 530.81, ICD10: K21.9 Reduce dose. - OMEPRAZOLE 20 MG CAPSULE,DELAYED RELEASE 7. Tobacco use disorder - ICD9: 305.1, ICD10: F17.200 - Cessation encouraged. 8. Hyperlipidemia, unspecified hyperlipidemia type - ICD9: 272.4, ICD10: E78.5 - Controlled - Continue current medications George Vázquez MD * George Vázquez MD - 05/24/2023 3:45 PM EDT Horace Henderson is a 67 year old male here for a Medicare Subsequent Annual Wellness Visit Health Risk Assessment In general, health is: Good Concerns with balance:Not at all Concerns with teeth or dentures:Not at all Concerns with sexual function:Not at all [place] anxious, stressed, angry, irritable, lonely, isolated, or had thoughts of hurting themself: Not at all Has little interest or pleasure in doing things: Not at all Bothered by feeling down, depressed, or hopeless: Not at all Needs help with grocery shopping, cooking, housework, bathing, grooming, dressing, eating, sitting or standing, walking, using the toilet, handling finances, taking medications, using the telephone, or driving: No Following safety precautions in the home environment and vehicle: removed throw rugs from floors, installed grab bars in the bathroom, handrails in stairwells, having adequate lighting, wearing seatbelt at all times?: Yes Smokes cigarettes, vapes, or chew tobacco: Yes, but I'm not ready to quit Eats healthy foods including fruits, vegetables, whole grains, and fiber-rich foods: Several days Number of days per week engages in exercise: 0 days Average alcohol consumption: 2-3 times a week Current Providers Specialists: I have reviewed specialist-related care of the patient in the medical record. Current care team: Patient Care Team: George Vázquez MD as PCP - General (Internal Medicine) Darlyn Moreno RN as Assistant Account Executive (Internal Medicine) Farooq Hall MD, [place] [facility]. Mauro Lay APRN, Heart Group. Chad Zarate, Podiatry, [place]. Jessie Nava MD, Surgery. Omega Javier MD, Gastroenterology. Medical/Family history review Reviewed and updated problem list, medical/surgical/family/social history, medications, and allergies. Opioid use review Patient is not currently using opioids. Depression screening Depression Screening PHQ-2 Score PHQ-9 Score 01/18/2023 0 - Depression screening tool completed and reviewed. Based on score and interview, patient is not at risk for depression. Screening tool discussed with patient, and I recommended no further interventionat this time. Cognitive screening Mini Cog Score: 5 Cognitive screening reviewed and no further action needed (score 3-5) Functional Observation Was the patient's timed Up & Go test unsteady or ? 12 seconds? No Advance Care Planning End of Life planning discussed, including patient's advanced directive wishes: Yes Measurements BP 100/64 Pulse 96 Resp 18 Ht 5' 6.6 (1.69m) Wt 174 lb (78.9kg) SpO2 94% BMI 27.57 kg/(m^2). Visual acuity (required for Welcome to Medicare): Right: 20/30 Left: 20/ 30 Both: 20/30 Hearing Evaluation: within normal limits Assessment/Plan - Counseled on healthy diet and regular exercise - Smoking cessation counseling - Fall avoidance - Vaccines recommended COVID-19 and Shingrix at pharmacy - Depression screening documented in this encounterCincinnati [facility]07-14-2023 Procedure [facility]03-28-2023 Miscellaneous Notes* Telephone Encounter - Donna Casanova LPN - 01/24/2023 2:16 PM EDT Labs completed at [facility]. BMP to pcp. In scanned labs. Please review. View External Lab - BMP,LFT,lipids [ID [id number]] documented in this encounterCincinnati [facility]03-22-2023 History of Present illness Narrative* George Vázquez MD - 01/18/2023 3:59 PM EDT This note was created using [employer]. Subjective Patient presents with: 2 month follow-up Horace Henderson is a 67 year old male. He was doing reasonably well. His hypertension was high, but he had stopped furosemide due to urinary frequency and the need to drive for work. He also stoppedpowdered potassium due to cost. Dysphagia was resolved at this time. He saw his sawdust drier last month and blood pressure was normal. He just saw GI and was on antibiotic for possible SIBO. He had his EGD and colonoscopy this month, and cholecystectomy last month, all at the local hospital. Review of Systems Respiratory: Negative. Cardiovascular: Negative. Gastrointestinal: Positive for abdominal distention. Negative for abdominal pain, constipation, diarrhea, nausea and vomiting. Genitourinary: Negative. Neurological: Negative. ACTIVE PROBLEM LIST Htn (Hypertension) Cad (Coronary Artery Disease) S/P Cabg X 2 Oa (Osteoarthritis) of Knee Hyperlipidemia Tobacco Use Disorder Chronic bronchitis Ddd (Degenerative Disc Disease), Lumbar Failed Cabg (Coronary Artery Bypass Graft) Presence of Drug Coated Stent in Right Coronary Artery Presence of Drug Coated Stent in Left Circumflex Coronary Artery Dupuytren's Contracture of Right Hand Achilles Tendinitis of Both Lower Extremities Nodule of lower lobe of left lung (low dose lung CT) Status Post Insertion of Drug-Eluting Stent into Right Coronary Artery for Coronary Artery Disease Acute On Chronic Respiratory Failure With Hypoxia (Hcc) PAST SURGICAL HISTORY Procedure Laterality Date ANESTH OPEN/SURG ARTHRS TOTAL KNEE ARTHROPLASTY 10/10/2013 LEFT APPENDEC INDICATED PURPOSE OTH MAJOR PX NOT SPX 08/12/2012 CABG (2) VEIN GRAFTS & ARTERIAL GRAFT(S 10/14/1996 SVG to diagonal. [facility] to [facility]. CC CORONARY STENT 09/29/2021 Biotronik 2.5x22 mm to distal RCA, biotronik 3.0 x 30 mm to proximal RCA COLECTOMY PARTIAL W/ANASTOMOSIS 08/12/2012 COLONOSCOPY FLX DX W/COLLJ SPEC WHEN PFRMD 07/12/2012 Colonoscopy COLONOSCOPY FLX DX W/COLLJ SPEC WHEN PFRMD 06/22/2021 COLONOSCOPY SCREENING 12/28/2022 cecal adenoma, repeat 5 years CYSTOURETHROSCOPY 2008 Cystoscopy EGD BIOPSY SING OR MULT 12/28/2022 ESOPHAGOGASTRODUODENOSCOPY TRANSORAL DIAGNOSTIC 03/23/2021 ESOPHAGOGASTRODUODENOSCOPY TRANSORAL DIAGNOSTIC 06/22/2021 EYE SURGERY HX LAP; SURGICAL W/CHOLECYSTECTOMY & CHOLANGI 12/02/2022 PAST SURGICAL HISTORY OF 01/05/2006 stents cardiac x 6, [facility], 2 year intervals [facility] N/CARPAL TUNNEL SURG Right 11/19/2020 Right carpal tunnel syndrome [facility] N/CARPAL TUNNEL SURG Left 12/17/2020 Left carpal tunnel release SKIN BIOPSY HX TONSILLECTOMY HX 1965 VASCULAR SURGERY PROCEDURE Social History Tobacco Use Smoking status: Every Day Packs/day: 0.50 Years: 34.00 Pack years: 17.00 Types: Cigarettes, Pipe Start date: 06/17/1984 Smokeless tobacco: Never Vaping Use Vaping Use: Never used Substance Use Topics Alcohol use: Yes Alcohol/week: 17.6 standard drinks Types: 12 Mixed Drinks, 2 Standard drinks or equivalent per week Comment: 2 mixed drinks per day Drug use: No Frequency: 2.0 times per week Current Outpatient Medications Medication Sig ipratropium-albuterol (DUONEB) 0.5 mg-3 mg(2.5 mg base)/3 mL nebu Inhale 3 mL as instructed every 6hours as needed. furosemide (LASIX) 40 mg tablet Take 1 tablet by mouth once daily. losartan (COZAAR) 100 mg tablet Take 0.5 tablets by mouth once daily. 1/2 tab once daily albuterol HFA (PROAIR HFA) 90 mcg/actuation inhaler Inhale 2 Puffs as instructed every 6 hours as needed for wheezing/shortness of breath. omeprazole (PRILOSEC) 20 mg capsule Take 2 capsules by mouth once daily. clopidogrel (PLAVIX) 75 mg tablet Take 1 tablet by mouth once daily. metoprolol succinate ER (TOPROL XL) 50 mg 24 hr tablet Take 1 tablet by mouth twice daily. isosorbide mononitrate ER (IMDUR) 30 mg 24 hr tablet Take 30 mg by mouth once daily. rosuvastatin (CRESTOR) 40 mg tablet Take 1 tablet by mouth once daily. budesonide-formoterol (SYMBICORT) 160-4.5 mcg/actuation inhaler Inhale 2 Puffs as instructed twice daily. aspirin 81 mg chewable tablet Take 81 mg by mouth once daily. potassium chloride (KLOR-CON) 20 mEq packet Take 20 mEq by mouth once daily. (Patient not taking: Reported on 01/18/2023) No current facility-administered medications for this visit. Objective BP 162/95 (BP Site: Left Arm, BP Position: Sitting, BP Cuff Size: Large Adult) Pulse 81 Resp 16 Wt 81.6 kg (180 lb) SpO2 95% BMI 28.19 kg/m Physical Exam Constitutional: General: He is not in acute distress. Cardiovascular: Rate and Rhythm: Normal rate and regular rhythm. Heart sounds: No murmur heard. No gallop. Pulmonary: Breath sounds: Normal breath sounds. No wheezing or rales. Abdominal: Palpations: Abdomen is soft. Tenderness: There is no abdominal tenderness. Musculoskeletal: Right lower leg: No edema. Left lower leg: No edema. Neurological: Mental Status: He is alert. Assessment and Plan 1. Primary hypertension - ICD9: 401.9, ICD10: I10 (primary diagnosis) - poor control - Resume furosemide. - POTASSIUM CHLORIDE ER 10 MEQ CAPSULE,EXTENDED RELEASE - BASIC METABOLIC PNL 2. Coronary artery disease involving [place] coronary artery of [place] heart without angina pectoris- ICD9: 414.01, ICD10: I25.10 Stable. 3. Hyperlipidemia, unspecified hyperlipidemia type - ICD9: 272.4, ICD10: E78.5 - good control - Continue current medication. 4. Chronic bronchitis, unspecified chronic bronchitis type (HCC) - ICD9: 491.9, ICD10: J42 Stable. 5. Acute on chronic respiratory failure with hypoxia (HCC) - ICD9: 518.84, 799.02, ICD10: J96.21 He uses oxygen at night PRN. 6. Need for vaccination - ICD9: V05.9, ICD10: Z23 - PNEUMOCOCCAL VACCINE (PREVNAR 20) George Vázquez MD documented in this encounterCincinnati [facility]02-14-2023 Miscellaneous Notes* Telephone Encounter - Pat Hunt Kaiden MILTON - 12/13/2022 12:08 PM EST Advised Patient to make sure pharmacy is running through correct insurance, if it is Medicare it has to be run as Medical. Advised Patient, he is due for Covid booster. Pat Richey LPN * Telephone Encounter - Vanda Franz - 12/13/2022 11:07 AM EST Patient said he tried to refill his Duoneb and was told to contact his provider's office. Please review and advise patient if there is an issue with his rx. He also wants to know if he is due for another COVID booster. Please advise at [phone]. documented in this encounterCincinnati [facility]02-06-2023 Miscellaneous Notes* Telephone Encounter - Pat Richey LPN - 12/05/2022 6:[address] Gurpreet Vu wrote a new prescription for Duoneb 11/10/2022 with 3 refills. [facility] check with [facility]. Pat Richey LPN documented in this encounterCincinnati [facility]01-24-2023 Instructions* Patient Instructions* RENEE Gonzalez - 11/22/2022 3:17 PM EST R.I.C.E. The general care of your injury includes the following: Resting, Icing, Compressing and Elevating the injured area. Remember this as RICE. REST: Limit the use of the injured body part. ICE: By applying ice to the affected area, swelling and pain can be reduced. Place some ice cubes in a re-sealable (Ziploc) bag and add some water. Put a thin washcloth between the bag and your skin.Apply the ice bag to the area for at least 20 minutes. Do this at least 4 times per day. Using the ice for longer times and more frequently is OK. NEVER APPLY ICE DIRECTLY TO THE SKIN. COMPRESS: Compression means to apply pressure around the injured area such as with a splint, cast or an anahi bandage. Compression decreases swelling and improves comfort. Compression should be tight enough to relieve swelling but not so tight as to decrease circulation. Increasing pain, numbness, tingling, or change in skin color, are all signs of decreased circulation. ELEVATE: Elevate the injured part. For example, elevate your foot by placing it on a chair while sitting, or propping it up on pillows when lying down. documented in this encounterCincinnati [facility]01-24-2023 History of Present illness Narrative* Darlyn Adams RT(R) - 11/22/2022 2:40 PM EST Radiology Service Progress Note PATIENT NAME: Horace Henderson DATE OF SERVICE: November 22, 2022 TIME: 2:49 PM PATIENT IDENTITY VERIFICATION COMPLETED USING TWO (2) IDENTIFIERS: Name and Date of confirmedby patient verbally. FALL SCREENING: Has the patient had 2 falls in the last year or 1 fall with injury or currently using an Ambulatory Assistive Device (Walker, Cane, Wheelchair, Crutches, etc.)? No PATIENT GENDER DATA: Male PATIENT RELEVANT IMPLANT DATA REVIEWED: Not Applicable RADIOLOGY DEPARTMENT: General X-ray: Exam(s) Completed: Upper Extremity X- Ray(s): Shoulder, AP / TRUE AP / AXILLARY right PERIPHERAL IV DATA: Not applicable SIGNED BY: RT Ashley(R) November 22, 2022 2:49 PM documented in this encounterCincinnati [facility]01-24-2023 History of Present illness Narrative* RENEE Gonzalez - 11/22/2022 2:32 PM EST This note was created using [employer]. Subjective Horace Henderson is a 67 year old male. HPI 67-year-old male presents for right shoulder injury. Patient states that this morning he was pulling down his tailgate when he felt pain in his right shoulder. States he has decreased ROM since this morning with this injury. He has pain in the posterior shoulder. Pain is worse with movement. Hedenies any numbness or tingling the arm. No history of injury to the shoulder or surgery on it in the past. He took Aleve with minimal improvement. He is right-hand dominant. PAST MEDICAL HISTORY Diagnosis Date Achilles tendinitis of both lower extremities 06/23/2020 Acute on chronic respiratory failure with hypoxia ([facility]) 10/30/2022 Arthritis Asthma CAD (coronary artery disease) 01/11/2012 Chronic bronchitis ([facility]) 10/07/2013 06/17/2014 [id number]% predicted. COPD (chronic obstructive pulmonary disease) ([facility]) COVID-19 07/05/2022 DDD (degenerative disc disease), lumbar 12/13/2013 Diverticulitis 08/12/2012 Perforated HTN (hypertension) 01/11/2012 Hyperlipidemia 08/04/2012 Lumbar disc displacement without myelopathy 04/04/2014 Nodule of lower lobe of left lung (low dose lung CT) 05/05/2021 Perforated diverticulum of large intestine 08/20/2012 S/P CABG x 2 10/14/1995 Status post insertion of drug-eluting stent into right coronary artery for coronary artery disease 09/30/2021 Tobacco use disorder 10/27/2012 PAST SURGICAL HISTORY Procedure Laterality Date ANESTH OPEN/SURG ARTHRS TOTAL KNEE ARTHROPLASTY 10/10/2013 LEFT APPENDEC INDICATED PURPOSE OTH MAJOR PX NOT SPX 08/12/2012 CABG (2) VEIN GRAFTS & ARTERIAL GRAFT(S 10/14/1996 SVG to diagonal. STEPHENS to LAD. [facility]. CC CORONARY STENT 09/29/2021 Biotronik 2.5x22 mm to distal RCA, biotronik 3.0 x 30 mm to proximal RCA COLECTOMY PARTIAL W/ANASTOMOSIS 08/12/2012 COLONOSCOPY FLX DX W/COLLJ SPEC WHEN PFRMD 07/12/2012 Colonoscopy COLONOSCOPY FLX DX W/COLLJ SPEC WHEN PFRMD 06/22/2021 CYSTOURETHROSCOPY 2008 Cystoscopy ESOPHAGOGASTRODUODENOSCOPY TRANSORAL DIAGNOSTIC 03/23/2021 ESOPHAGOGASTRODUODENOSCOPY TRANSORAL DIAGNOSTIC 06/22/2021 EYE SURGERY HX PAST SURGICAL HISTORY OF 01/05/2006 stents cardiac x 6, [facility], 2 year intervals REVISE MEDIAN N/CARPAL TUNNEL SURG Right 11/19/2020 Right carpal tunnel syndrome REVISE MEDIAN N/CARPAL TUNNEL SURG Left 12/17/2020 Left carpal tunnel release SKIN BIOPSY HX TONSILLECTOMY HX TONSILLECTOMY PRIMARY/SECONDARY <AGE 12 1965 Tonsillectomy VASCULAR SURGERY PROCEDURE ALLERGIES Levofloxacin MEDICATIONS ipratropium-albuterol (DUONEB) 0.5 mg-3 mg(2.5 mg base)/3 mL nebu Inhale 3 mL as instructed every 6hours as needed. furosemide (LASIX) 40 mg tablet Take 1 tablet by mouth once daily. losartan (COZAAR) 100 mg tablet Take 0.5 tablets by mouth once daily. 1/2 tab once daily albuterol HFA (PROAIR HFA) 90 mcg/actuation inhaler Inhale 2 Puffs as instructed every 6 hours as needed for wheezing/shortness of breath. omeprazole (PRILOSEC) 20 mg capsule Take 2 capsules by mouth once daily. clopidogrel (PLAVIX) 75 mg tablet Take 1 tablet by mouth once daily. metoprolol succinate ER (TOPROL XL) 50 mg 24 hr tablet Take 1 tablet by mouth twice daily. isosorbide mononitrate ER (IMDUR) 30 mg 24 hr tablet Take 30 mg by mouth once daily. rosuvastatin (CRESTOR) 40 mg tablet Take 1 tablet by mouth once daily. budesonide-formoterol (SYMBICORT) 160-4.5 mcg/actuation inhaler Inhale 2 Puffs as instructed twice daily. aspirin 81 mg chewable tablet Take 81 mg by mouth once daily. potassium chloride (KLOR-CON) 20 mEq packet Take 20 mEq by mouth once daily. FAMILY HISTORY Problem Relation Age of Onset None Mother Coronary Artery Disease Father 79 stent placed Hypertension Brother Cancer Maternal Grandfather 70 pancreatic Heart disease Paternal Grandmother Social History Tobacco Use Smoking status: Every Day Packs/day: 0.50 Years: 34.00 Pack years: 17.00 Types: Cigarettes, Pipe Start date: 06/17/1984 Smokeless tobacco: Never Vaping Use Vaping Use: Never used Substance Use Topics Alcohol use: Yes Alcohol/week: 17.6 standard drinks Types: 12 Mixed Drinks, 2 Standard drinks or equivalent per week Comment: 2 mixed drinks per day Drug use: No Frequency: 2.0 times per week Review of Systems Constitutional: Negative for chills and fever. Respiratory: Negative for shortness of breath. Cardiovascular: Negative for chest pain. Musculoskeletal: Positive for arthralgias (R shoulder). Negative for neck pain. Neurological: Negative for weakness and numbness. Objective BP 134/76 Pulse 94 Temp 37.2 C (98.9 F) (Tympanic) Resp 18 SpO2 96% Physical Exam Vitals and nursing note reviewed. Constitutional: General: He is not in acute distress. Appearance: Normal appearance. He is not toxic-appearing. Cardiovascular: Rate and Rhythm: Normal rate and regular rhythm. Pulmonary: Effort: Pulmonary effort is normal. Breath sounds: Normal breath sounds. Musculoskeletal: Right shoulder: Tenderness and bony tenderness present. No deformity. Decreased range of motion. Normal pulse. Comments: Decreased ROM right shoulder due to pain. Patient has difficulty initiating forward flexion and abduction d/t pain. He is able to forward flex to about 90 degrees with pain. Tenderness overthe right posterior shoulder and right trapezius. Reports pain with empty can test. Normal sensation right upper extremity. Radial pulse 2+. 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 Skin: General: Skin is warm and dry. Neurological: Mental Status: He is alert. Assessment and Plan ASSESSMENT/PLAN: 1. Acute pain of right shoulder - ICD9: 719.41, ICD10: M25.511 (primary diagnosis) - XR SHOULDER GENERAL 3V OR MORE AP/TRUE AP/OTHER RIGHT -No acute fracture or dislocation. Degenerative changes. 2. Strain of right shoulder, initial encounter - ICD9: 840.9, ICD10: S46.911A -Suspect shoulder strain/sprain. Cannot rule out internal derangement of shoulder or rotator cuff injury. Advised patient of this. Recommended follow-up with orthopedics if symptoms continue for possible physical therapy or more advanced imaging as needed. -Patient is prescribed Plavix and aspirin, so advised to avoid NSAIDs. Recommended taking Tylenol. Recommended ice, elevation. -Patient was just prescribed Medrol Dosepak 3 days ago for unrelated conditions. - CONSULT TO ORTHOPAEDICS Diagnosis and treatment plan were discussed and questions were answered to the patient's satisfaction. Pt acknowledged understanding of concepts and follow up plan. Specific signs and symptoms that would indicate the need for higher level of care were discussed in detail warranting prompt ER evaluation. RENEE Gonzalez documented in this encounterCincinnati [facility]01-12-2023 Miscellaneous Notes* Telephone Encounter - Kimberlee Craft LPN - 11/10/2022 8:57 AM EST Spoke with pharmacy and pt does nt have any refills left. Patient has been identified by name and date of : Yes, Provider Dr. Vázquez Date 11/10/22 Time 9:12 am Patient phones for refill(s): Requested Prescriptions Pending Prescriptions Disp Refills ipratropium-albuterol (DUONEB) 0.5 mg-3 mg(2.5 mg base)/3 mL nebu 10 Each 2 Sig: Inhale 3 mL as instructed every 6 hours as needed. Date of last office visit in primary care: 07/28/22 Fu up be in 1 year medicare annual exam Last 2 Encounter Wt Readings: Date: Wt: 07/28/2022 76.7 kg (169 lb) 07/15/2022 78.9 kg (174 lb) Previous labs/tests for medication: Not applicable Thank you. Kimberlee Craft LPN documented in this encounterCincinnati [facility]12-28-2022 Miscellaneous Notes* Telephone Encounter - Pat Richey LPN - 10/26/2022 4:31 PM EST Patient has Duoneb RX on file at [facility], pharmacy will get ready for Patient to pickup. Pat Richey LPN documented in this encounterCincinnati [facility]12-15-2022 Miscellaneous Notes* Telephone Encounter - Pat Richey LPN - 10/13/2022 9:54 AM EST Patient has been identified by name and date of : Yes Patient phones for refill(s): Requested Prescriptions Pending Prescriptions Disp Refills ipratropium-albuterol (DUONEB) 0.5 mg-3 mg(2.5 mg base)/3 mL nebu 10 Each 2 Sig: Inhale 3 mL as instructed every 6 hours as needed. Date of last office visit in primary care: 07/28/2022 6 month follow-up: 11/09/2022 Last 2 Encounter Wt Readings: Date: Wt: 07/28/2022 76.7 kg (169 lb) 07/15/2022 78.9 kg (174 lb) Previous labs/tests for medication: Not applicable Please advise. Thank you. Pat Richey LPN documented in this [facility]11-28-2022 Miscellaneous Notes* Telephone Encounter - Phil Mitchell Ma - 09/26/2022 2:30 PM EST RAI: 07/28/2022 Last refill: 06/20/2022 QTY: 10 vials Refills: 2 documented in this [facility]11-18-2022 Miscellaneous Notes* Telephone Encounter - Rhea Omer Ma - 09/16/2022 11:06 AM EST Refills at pharmacy documented in this [facility]11-08-2022 Miscellaneous Notes* Telephone Encounter - Pat Richey LPN - 09/06/2022 8:29 AM EST Pharmacy has RX written 06/20/2022 for Duoneb on file, will get ready for Patient to pickup. Pat Richey LPN documented in this [facility]10-24-2022 Miscellaneous Notes* Telephone Encounter - Rhea Omer Ma - 08/22/2022 11:25 AM EDT [facility]ing to [facility] documented in this encounterCincinnati [facility]10-17-2022 Miscellaneous Notes* Telephone Encounter - Pat E Kaiden MILTON - 08/15/2022 8:13 PM EDT Called [facility], Patient has refills on Duoneb RX. Pharmacy will get ready for Patient Pat Kaiden MILTON documented in this encounterCincinnati [facility]09-29-2022 History of Present illness Narrative* George Vázquez MD - 07/28/2022 4:33 PM EDT This note was created using [email or web address]. Subjective Patient presents with: ED Follow-up Horace Henderson is a 67 year old male. He had Covid earlier this month in addition to chronic obstructive pulmonary disease. He passed out after a severe coughing spell, and bruised his right chest and right hip. He went to the ER 07/13 where his chest X-ray showed no fracture but small bilateral pleural effusions. He continued to feel vaguely ill with pleuritic chest pain and went to [facility] [place] on07/15/22. CTA of the chest CT brain, and CT cervical spine showed no acute disease. ACS was ruled out. He was discharged with short term [place]. He was better. Review of Systems Constitutional: Negative for chills, diaphoresis and fever. HENT: Negative. Respiratory: Negative for cough, chest tightness and shortness of breath. Cardiovascular: Negative for chest pain, palpitations and leg swelling. Gastrointestinal: Negative. Neurological: Negative for dizziness and headaches. ACTIVE PROBLEM LIST Htn (Hypertension) Cad (Coronary Artery Disease) S/P Cabg X 2 Oa (Osteoarthritis) of Knee Hyperlipidemia Tobacco Use Disorder Chronic bronchitis Ddd (Degenerative Disc Disease), Lumbar Failed Cabg (Coronary Artery Bypass Graft) Presence of Drug Coated Stent in Right Coronary Artery Presence of Drug Coated Stent in Left Circumflex Coronary Artery Dupuytren's Contracture of Right Hand Achilles Tendinitis of Both Lower Extremities Nodule of lower lobe of left lung (low dose lung CT) Status Post Insertion of Drug-Eluting Stent into Right Coronary Artery for Coronary Artery Disease Current Outpatient Medications Medication Sig losartan (COZAAR) 100 mg tablet Take 0.5 tablets by mouth once daily. 1/2 tab once daily omeprazole (PRILOSEC) 20 mg capsule Take 2 capsules by mouth once daily. ipratropium-albuterol (DUONEB) 0.5 mg-3 mg(2.5 mg base)/3 mL nebu Inhale 3 mL as instructed every 6hours as needed. potassium chloride (KLOR-CON) 20 mEq packet Take 20 mEq by mouth once daily. clopidogrel (PLAVIX) 75 mg tablet Take 1 tablet by mouth once daily. albuterol HFA (PROAIR HFA) 90 mcg/actuation inhaler Inhale 2 Puffs as instructed every 6 hours as needed for wheezing/shortness of breath. metoprolol succinate ER (TOPROL XL) 50 mg 24 hr tablet Take 1 tablet by mouth twice daily. furosemide (LASIX) 40 mg tablet Take 40 mg by mouth once daily. isosorbide mononitrate ER (IMDUR) 30 mg 24 hr tablet Take 30 mg by mouth once daily. rosuvastatin (CRESTOR) 40 mg tablet Take 1 tablet by mouth once daily. budesonide-formoterol (SYMBICORT) 160-4.5 mcg/actuation inhaler Inhale 2 Puffs as instructed twice daily. aspirin 81 mg chewable tablet Take 81 mg by mouth once daily. No current facility-administered medications for this visit. Objective BP 124/68 (BP Site: Right Arm, BP Position: Sitting, BP Cuff Size: Large Adult) Pulse 96 Temp 36.9 C (98.5 F) (Temporal) Resp 20 Wt 76.7 kg (169 lb) SpO2 93% BMI 26.47 kg/m Physical Exam HENT: Head: Atraumatic. Eyes: Extraocular Movements: Extraocular movements intact. Cardiovascular: Rate and Rhythm: Normal rate and regular rhythm. Heart sounds: No murmur heard. No gallop. Pulmonary: Effort: No respiratory distress. Breath sounds: Wheezing present. No rhonchi or rales. Chest: Chest wall: Tenderness present. Abdominal: Palpations: Abdomen is soft. Tenderness: There is no abdominal tenderness. Musculoskeletal: Cervical back: Neck supple. No tenderness. Right lower leg: No edema. Left lower leg: No edema. Neurological: Mental Status: He is alert. Test results pertinent to today's visit were reviewed and discussed with the patient. Assessment and Plan 1. Cough syncope - ICD9: 786.2, ICD10: R55, R05.4 (primary diagnosis) Discontinue smoking. 2. Contusion of right chest wall, subsequent encounter - ICD9: V58.89, 922.1, ICD10: S20.211D Resolving. 3. Gallstones - ICD9: 574.20, ICD10: K80.20 Asymptomatic. He also sees Dr. Javier for GI consulation George Vázquez MD documented in this encounterCincinnati [facility]09-16-2022 History of Present illness Narrative* Michelle Alonzo PA-C - 07/15/2022 9:30 AM EDT This note was created using [email or web address]. Subjective Horace Henderson is a 67 year old male. HPI Patient presents with right-sided rib pain over the past 5 days. Monday he had a syncopal episode and had woke up on the floor on his right side. The next day his rib was a little sore but worsened on Monday. He was not seen at the ER until the . He was seen at [place] ED and all they did was a right rib film which was negative for fracture. He states they did no labs or other workup. He continues to have worsening pain on that side. Pain with a deep breath and cough. He does have COPD as well. He also has positive for COVID as of 07/05. Review of Systems Constitutional: Negative. HENT: Positive for congestion. Respiratory: Positive for cough and shortness of breath. Cardiovascular: Positive for chest pain. Gastrointestinal: Negative. Genitourinary: Negative. Musculoskeletal: Negative. All other systems reviewed and are negative. PAST MEDICAL HISTORY Diagnosis Date Achilles tendinitis of both lower extremities 06/23/2020 Arthritis Asthma CAD (coronary artery disease) 01/11/2012 Chronic bronchitis (HCC) 10/07/2013 06/17/2014 [id number]% predicted. COPD (chronic obstructive pulmonary disease) ([facility]) DDD (degenerative disc disease), lumbar 12/13/2013 Diverticulitis Perforated HTN (hypertension) 01/11/2012 Hyperlipidemia 08/04/2012 Lumbar disc displacement without myelopathy 04/04/2014 Nodule of lower lobe of left lung (low dose lung CT) 05/05/2021 Perforated diverticulum of large intestine 08/20/2012 S/P CABG x 2 10/14/1995 Status post insertion of drug-eluting stent into right coronary artery for coronary artery disease 09/30/2021 Tobacco use disorder 10/27/2012 Current Outpatient Medications Medication Sig Dispense Refill losartan (COZAAR) 100 mg tablet Take 0.5 tablets by mouth once daily. 1/2 tab once daily 45 tablet 3 omeprazole (PRILOSEC) 20 mg capsule Take 2 capsules by mouth once daily. 180 capsule 3 ipratropium-albuterol (DUONEB) 0.5 mg-3 mg(2.5 mg base)/3 mL nebu Inhale 3 mL as instructed every 6hours as needed. 10 Vial 2 potassium chloride (KLOR-CON) 20 mEq packet Take 20 mEq by mouth once daily. 90 Packet 3 clopidogrel (PLAVIX) 75 mg tablet Take 1 tablet by mouth once daily. 90 tablet 3 albuterol HFA (PROAIR HFA) 90 mcg/actuation inhaler Inhale 2 Puffs as instructed every 6 hours as needed for wheezing/shortness of breath. 18 g 5 metoprolol succinate ER (TOPROL XL) 50 mg 24 hr tablet Take 1 tablet by mouth twice daily. 180 tablet 1 furosemide (LASIX) 40 mg tablet Take 40 mg by mouth once daily. isosorbide mononitrate ER (IMDUR) 30 mg 24 hr tablet Take 30 mg by mouth once daily. rosuvastatin (CRESTOR) 40 mg tablet Take 1 tablet by mouth once daily. 90 tablet 3 budesonide-formoterol (SYMBICORT) 160-4.5 mcg/actuation inhaler Inhale 2 Puffs as instructed twice daily. 1 Inhaler 5 aspirin 81 mg chewable tablet Take 81 mg by mouth once daily. No current facility-administered medications for this visit. PAST SURGICAL HISTORY Procedure Laterality Date ANESTH OPEN/SURG ARTHRS TOTAL KNEE ARTHROPLASTY 10/10/2013 LEFT APPENDEC INDICATED PURPOSE OTH MAJOR PX NOT SPX 08/12/2012 CABG (2) VEIN GRAFTS & ARTERIAL GRAFT(S 10/14/1996 SVG to diagonal. STEPHENS to [facility]AD. [facility] CC CORONARY STENT 09/29/2021 Biotronik 2.5x22 mm to distal RCA, biotronik 3.0 x 30 mm to proximal RCA COLECTOMY PARTIAL W/ANASTOMOSIS 08/12/2012 COLONOSCOPY FLX DX W/COLLJ SPEC WHEN PFRMD 07/12/2012 Colonoscopy COLONOSCOPY FLX DX W/COLLJ SPEC WHEN PFRMD 06/22/2021 CYSTOURETHROSCOPY 2007 Cystoscopy ESOPHAGOGASTRODUODENOSCOPY TRANSORAL DIAGNOSTIC 03/23/2021 ESOPHAGOGASTRODUODENOSCOPY TRANSORAL DIAGNOSTIC 06/22/2021 EYE SURGERY HX PAST SURGICAL HISTORY OF 01/05/2006 stents cardiac x 6, [facility], 2 year intervals REVISE MEDIAN N/CARPAL TUNNEL SURG Right 11/19/2020 Right carpal tunnel syndrome REVISE MEDIAN N/CARPAL TUNNEL SURG Left 12/17/2020 Left carpal tunnel release SKIN BIOPSY HX TONSILLECTOMY HX TONSILLECTOMY PRIMARY/SECONDARY <AGE 12 1965 Tonsillectomy VASCULAR SURGERY PROCEDURE FAMILY HISTORY Problem Relation Age of Onset None Mother Coronary Artery Disease Father 79 stent placed Hypertension Brother Cancer Maternal Grandfather 70 pancreatic Heart disease Paternal Grandmother Social History Tobacco Use Smoking status: Every Day Packs/day: 0.50 Years: 34.00 Pack years: 17.00 Types: Cigarettes, Pipe Start date: 06/17/1984 Smokeless tobacco: Never Vaping Use Vaping Use: Never used Substance Use Topics Alcohol use: Yes Alcohol/week: 17.6 standard drinks Types: 12 Mixed Drinks, 2 Standard drinks or equivalent per week Comment: 2 mixed drinks per day Drug use: No Frequency: 2.0 times per week Objective BP 132/80 Pulse 106 Temp 36.8 C (98.3 F) Resp 22 Wt 80.4 kg (177 lb 3.2 oz) SpO2 92% BMI 27.75 kg/m Physical Exam Vitals reviewed. Constitutional: Appearance: Normal appearance. HENT: Head: Normocephalic and atraumatic. Cardiovascular: Rate and Rhythm: Regular rhythm. Tachycardia present. Heart sounds: Normal heart sounds. Pulmonary: Effort: Pulmonary effort is normal. No respiratory distress. Comments: Patient is tender on palpation of the right lateral chest wall. Skin: General: Skin is warm and dry. Neurological: Mental Status: He is alert. Assessment and Plan ASSESSMENT/PLAN: 1. Pleuritic chest pain - ICD9: 786.52, ICD10: R07.81 Patient pulse ox here is 88-92% on room air and mildly tachycardic here. He does have reproducible pain however has COVID currently, had a syncopal episode Monday, and is short of breath. I feel he does needs possibly worked up for a PE/ further workup than express care can provide. He refused to go back to [facility] as he states they were rude to him and did not really let him tell them what happened. I did get him to agree to go to [facility] however. He states his girlfriend will drive him. I did call report to [place].. Michelle Alonzo PA-C documented in this encounterCincinnati Children'[facility]09-06-2022 History of Present illness Narrative* Nery Ibrahim APRN.WIRE DRAWING SETTER - 07/05/2022 11:27 AM EDT Horace Henderson is a 67 year old male who presents with positive home COVID test. His son is ill currently also. Mr. Henderson had onset of symptoms yesterday. He has fatigue, congestion, cough. He has been taking Aleve at home. Review of Systems Constitutional: Positive for malaise/fatigue. Negative for chills and fever. HENT: Positive for congestion. Respiratory: Positive for cough. Negative for shortness of breath. Cardiovascular: Negative for chest pain. Gastrointestinal: Negative for diarrhea, nausea and vomiting. Musculoskeletal: Negative for myalgias. BP 124/78 Pulse 83 Temp 36.7 C (98 F) Resp 18 Wt 77.9 kg (171 lb 12.8 oz) SpO2 97% BMI 26.91 kg/m PAST MEDICAL HISTORY Diagnosis Date Achilles tendinitis of both lower extremities 06/23/2020 Arthritis Asthma CAD (coronary artery disease) 01/11/2012 Chronic bronchitis (HCC) 10/07/2013 06/17/2014 [id number]% predicted. COPD (chronic obstructive pulmonary disease) (HCC) DDD (degenerative disc disease), lumbar 12/13/2013 Diverticulitis Perforated HTN (hypertension) 01/11/2012 Hyperlipidemia 08/04/2012 Lumbar disc displacement without myelopathy 04/04/2014 Nodule of lower lobe of left lung (low dose lung CT) 05/05/2021 Perforated diverticulum of large intestine 08/20/2012 S/P CABG x 2 10/14/1995 Status post insertion of drug-eluting stent into right coronary artery for coronary artery disease 09/30/2021 Tobacco use disorder 10/27/2012 PAST SURGICAL HISTORY Procedure Laterality Date ANESTH OPEN/SURG ARTHRS TOTAL KNEE ARTHROPLASTY 10/10/2013 LEFT APPENDEC INDICATED PURPOSE OTH MAJOR PX NOT SPX 08/12/2012 CABG (2) VEIN GRAFTS & ARTERIAL GRAFT(S 10/14/1996 [facility] 09/29/2021 Biotronik 2.5x22 mm to distal RCA, biotronik 3.0 x 30 mm to proximal RCA COLECTOMY PARTIAL W/ANASTOMOSIS 08/12/2012 COLONOSCOPY FLX DX W/COLLJ SPEC WHEN PFRMD 07/12/2012 Colonoscopy COLONOSCOPY FLX DX W/COLLJ SPEC WHEN PFRMD 06/22/2021 CYSTOURETHROSCOPY 2007 Cystoscopy ESOPHAGOGASTRODUODENOSCOPY TRANSORAL DIAGNOSTIC 03/23/2021 ESOPHAGOGASTRODUODENOSCOPY TRANSORAL DIAGNOSTIC 06/22/2021 EYE SURGERY HX PAST SURGICAL HISTORY OF 01/05/2006 stents cardiac x 6, [facility], 2 year intervals REVISE MEDIAN N/CARPAL TUNNEL SURG Right 11/19/2020 Right carpal tunnel syndrome REVISE MEDIAN N/CARPAL TUNNEL SURG Left 12/17/2020 Left carpal tunnel release SKIN BIOPSY HX TONSILLECTOMY HX TONSILLECTOMY PRIMARY/SECONDARY <AGE 12 1965 Tonsillectomy VASCULAR SURGERY PROCEDURE ALLERGIES Levofloxacin MEDICATIONS molnupiravir 200 mg capsule Take 4 capsules by mouth twice daily for 5 days. nystatin (MYCOSTATIN) 100,000 unit/mL suspension Take 5 mL by mouth four times daily for 10 days. 1tsp swish in mouth for several minutes, then swallow (or expectorate) 4 times daily until gone. losartan (COZAAR) 100 mg tablet Take 0.5 tablets by mouth once daily. 1/2 tab once daily omeprazole (PRILOSEC) 20 mg capsule Take 2 capsules by mouth once daily. ipratropium-albuterol (DUONEB) 0.5 mg-3 mg(2.5 mg base)/3 mL nebu Inhale 3 mL as instructed every 6hours as needed. potassium chloride (KLOR-CON) 20 mEq packet Take 20 mEq by mouth once daily. clopidogrel (PLAVIX) 75 mg tablet Take 1 tablet by mouth once daily. albuterol HFA (PROAIR HFA) 90 mcg/actuation inhaler Inhale 2 Puffs as instructed every 6 hours as needed for wheezing/shortness of breath. metoprolol succinate ER (TOPROL XL) 50 mg 24 hr tablet Take 1 tablet by mouth twice daily. furosemide (LASIX) 40 mg tablet Take 40 mg by mouth once daily. isosorbide mononitrate ER (IMDUR) 30 mg 24 hr tablet Take 30 mg by mouth once daily. rosuvastatin (CRESTOR) 40 mg tablet Take 1 tablet by mouth once daily. budesonide-formoterol (SYMBICORT) 160-4.5 mcg/actuation inhaler Inhale 2 Puffs as instructed twice daily. aspirin 81 mg chewable tablet Take 81 mg by mouth once daily. FAMILY HISTORY Problem Relation Age of Onset None Mother Coronary Artery Disease Father 79 stent placed Hypertension Brother Cancer Maternal Grandfather 70 pancreatic Heart disease Paternal Grandmother Social History Tobacco Use Smoking status: Every Day Packs/day: 0.50 Years: 34.00 Pack years: 17.00 Types: Cigarettes, Pipe Start date: 06/17/1984 Smokeless tobacco: Never Vaping Use Vaping Use: Never used Substance Use Topics Alcohol use: Yes Alcohol/week: 17.6 standard drinks Types: 12 Mixed Drinks, 2 Standard drinks or equivalent per week Comment: 2 mixed drinks per day Drug use: No Frequency: 2.0 times per week ASSESSMENT/PLAN: 1. Suspected COVID-19 virus infection - ICD9: V01.79, ICD10: Z20.822 - COVID WITH FLUA+B, ROUTINE - MOLNUPIRAVIR 200 MG CAPSULE (EUA) - DO NOT TAKE YOUR CRESTOR (rosuvastatin) WHILE TAKING MOLNUPIRAVIR - Follow-up with your PCP in 3-5 days if symptoms have not improved or sooner if symptoms worsen - Discussed red flags and need for immediate medical evaluation if any occur. - Discussed supportive care treatment with fluids, rest and analgesia. - Discussed expected course of illness Nery Ibrahim APRN.HORTENCIA Molnupiravir Eligibility and Patient Discussion [facility] Formulary Restriction Criteria: Adult outpatients 18 years and older with ALL of the following: [x] Patient has positive SARS-COV-2 viral test (PCR or antigen test) during current illness [x] Patient has symptoms for 5 days or less [x] Not requiring hospitalization at any time for management of COVID-19 [x] Not requiring supplemental oxygen or a change in baseline supplemental oxygen [x] Not utilized for pre-exposure or post-exposure prophylaxis for prevention of COVID-19 [x] Patient is not or lactating [x] Meeting at least one of the criteria for high risk of progression to severe COVID-19: [x] Age over 65 years [] Cancer [x] Chronic kidney disease [] Chronic liver disease [] Chronic lung diseases, including cystic fibrosis [] Dementia or other neurological conditions [] Diabetes (type 1 or type 2) [] Disabilities, including Down syndrome and neurodevelopmental disorders [x] Heart conditions [] HIV infection [] Immunocompromised state [] Mental health conditions [] Medical related technological dependence (tracheostomy, gastrostomy, or positive pressure ventilation (not related to COVID) [x] Overweight and obesity (BMI greater or equal to 25 for adults) [] Physical inactivity [] Sickle cell disease or thalassemia [] Smoking, current or former [] Solid organ or blood stem cell transplant [] Stroke or cerebrovascular disease [] Substance use disorders [] Tuberculosis [] People from racial and ethnic minority groups Criteria above are met: Yes Date of Positive Test:07/05/2022 Date of Symptom Onset: 07/04/2022 Patient received COVID vaccine: Yes / status reviewed: Females: [] Patient is not currently and there is no possibility the patient could be (select one of the following): [] test does not need to be confirmed in patients who have undergone permanent sterilization, are currently using an intrauterine system or contraceptive implant, or in whom is not possible. [] Patients not meeting conditions above: assess whether the patient is based on the firstday of the last menstrual period in individuals who have regular menstrual cycles, is using reliable method of contraception correctly and consistently or have had a negative test [] A test is recommended if the individual has irregular menstrual cycles, is unsure of the first day of the last menstrual period or is not using effective contraception correctly and consistently [] Patient is not currently . is not recommended during treatment and for four days after final dose of molnupiravir. [] Females have been advised to use a reliable method of contraception correctly and consistently for the duration of treatment and for four days after the last dose of molnupiravir Males: [x] Sexually active male with partner(s) of childbearing potential has been advised to use a reliable method of contraception correctly and consistently for intercourse for the duration of treatment and for three months after the last dose of molnupiravir I have discussed the use of the investigational therapeutic, molnupiravir, for the treatment of mild to moderate COVID-19 and its use under Emergency Use Authorization with the patient. The patient was informed that molnupiravir is not an FDA approved drug and that it is authorized for use under this Emergency Use Authorization. The patient was also informed of the significant knownbenefits and potential risks of molnupiravir, and the extent to which such potential risks and benefits are unknown. The patient was informed that there is mandatory reporting of all medication errors and serious adverse events potentially related to molnupiravir treatment within 7 calendar days from the onset of the event and that events up to 28 days after completion of therapy need to be reported. The discussion included alternatives to receiving molnupiravir, including clinical trials, and potential the risks and benefits of those alternatives. The patient was provided electronically withthe Fact Sheet for Patients, Parents and Caregivers. The patient was also instructed that in addition to the treatment with molnupiravir, he/she should continue to self-isolate and use infection control measures (e.g., wear mask, isolate, social distance, avoid sharing personal items, clean and disinfect high touch surfaces, and frequent handwashing) according to CDC guidelines. The patient stated understanding and gave verbal consent to proceeding with molnupiravir treatment. eNry Ibrahim APRN.CNP July 05, 2022 11:25 AM documented in this encounterCinc[facility] Instructions* Patient Instructions* Nery Ibrahim APRN.WIRE DRAWING SETTER - 07/05/2022 11:27 AM EDT ASSESSMENT/PLAN: 1. Suspected COVID-19 virus infection - ICD9: V01.79, ICD10: Z20.822 - COVID WITH FLUA+B, ROUTINE - MOLNUPIRAVIR 200 MG CAPSULE (EUA) - DO NOT TAKE YOUR CRESTOR (rosuvastatin) WHILE TAKING MOLNUPIRAVIR - Follow-up with your PCP in 3-5 days if symptoms have not improved or sooner if symptoms worsen - Discussed red flags and need for immediate medical evaluation if any occur. - Discussed supportive care treatment with fluids, rest and analgesia. - Discussed expected course of illness Nery Ibrahim APRN.WIRE DRAWING SETTER Fact Sheet for Patients And Caregivers Emergency Use Authorization (EUA) Of Molnupiravir For Coronavirus Disease 2019 (COVID-19) What is the most important information I should know about molnupiravir? Molnupiravir may cause serious side effects, including: Molnupiravir may cause harm to your unborn baby. It is not known if molnupiravir will harm your baby if you take molnupiravir during . Molnupiravir is not recommended for use in . Molnupiravir has not been studied in . Molnupiravir was studied in animals only. When molnupiravir was given to animals, molnupiravir caused harm to their unborn babies. You and your healthcare provider may decide that you should take molnupiravir during if there are no other COVID-19 treatment options authorized by the FDA that are accessible or clinicallyappropriate for you. If you and your healthcare provider decide that you should take molnupiravir during , you and your healthcare provider should discuss the known and potential benefits and the potential risksof taking molnupiravir during . For individuals who are able to become : You should use a reliable method of control (contraception) consistently and correctly duringtreatment with molnupiravir and for 4 days after the last dose of molnupiravir. Talk to your healthcare provider about reliable control methods. Before starting treatment with molnupiravir your healthcare provider may do a test to seeif you are before starting treatment with molnupiravir. Tell your healthcare provider right away if you become or think you may be duringtreatment with molnupiravir. Surveillance Program: There is a surveillance program for individuals who take molnupiravir during . The purpose of this program is to collect information about the health of you and your baby. Talk to your healthcare provider about how to take part in this program. If you take molnupiravir during and you agree to participate in the surveillance program and allow your healthcare provider to share your information with [employer],then your healthcare provider will report your use of molnupiravir during to [employer] by calling or [email or web address].[email or web address]. For individuals who are sexually active with partners who are able to become : It is not known if molnupiravir can affect sperm. While the risk is regarded as low, animal studies to fully assess the potential for molnupiravir to affect the babies of males treated with molnupiravir have not been completed. A reliable method of control (contraception) should be used consistently and correctly during treatment with molnupiravir and for at least 3 months after thelast dose. The risk to sperm beyond 3 months is not known. Studies to understand the risk to sperm beyond 3 months are ongoing. Talk to your healthcare provider about reliable control methods. Talk to your healthcare provider if you have questions or concerns about how molnupiravir may affectsperm. You are being given this fact sheet because your healthcare provider believes it is necessary to provide you with molnupiravir for the treatment of adults with sibh-wi-frpysghf coronavirus disease 2019 (COVID-19) with positive results of direct SARS-CoV-2 viral testing, and who are at high risk forprogressing to severe COVID-19 including hospitalization or , and for whom other COVID-19 treatment options authorized by the FDA are not accessible or clinically appropriate. The [place] Food and Drug Administration (FDA) has issued an Emergency Use Authorization (EUA) to makemolnupiravir available during the COVID-19 pandemic (for more details about an EUA please see What is an Emergency Use Authorization? at the end of this document). Molnupiravir is not an FDA-approved medicine in the [place]. Read this Fact Sheet for information about molnupiravir. Talk to your healthcare provider about your options if you have any questions. It is your choice to take molnupiravir. What is COVID-19? COVID-19 is caused by a virus called a coronavirus. You can get COVID-19 through close contact withanother person who has the virus. COVID-19 illnesses have ranged from very jagc-ku-lkenaa, including illness resulting in . While information so far suggests that most COVID-19 illness is mild, serious illness can happen and maycause some of your other medical conditions to become worse. Older people and people of all ages with severe, long lasting (chronic) medical conditions like heart disease, lung disease and diabetes, for example seem to be at higher risk of being hospitalized for COVID-19. What is molnupiravir? Molnupiravir is an investigational medicine used to treat xboh-gz-rptposzi COVID-19 in adults: with positive results of direct SARS-CoV-2 viral testing, and who are at high risk for progressing to severe COVID-19 including hospitalization or , and for whom other COVID-19 treatment optionsauthorized by the FDA are not accessible or clinically appropriate. The FDA has authorized the emergency use of molnupiravir for the treatment of mild-tomoderate COVID-19 in adults under an EUA. For more information on EUA, see the What is an Emergency Use Authorization (EUA)? section at the end of this Fact Sheet. Molnupiravir is not authorized: for use in people less than 18 years of age. for prevention of COVID-19. for people needing hospitalization for COVID-19. for use for longer than 5 consecutive days. What should I tell my healthcare provider before I take molnupiravir? Tell your healthcare provider if you: Have any allergies Are or plan to breastfeed Have any serious illnesses Are taking any medicines (prescription, ehnv-vvu-mkpphfl, vitamins, or herbal products). How do I take molnupiravir? Take molnupiravir exactly as your healthcare provider tells you to take it. Take 4 capsules of molnupiravir every 12 hours (for example, at 8 am and at 8 pm) Take molnupiravir for 5 days. It is important that you complete the full 5 days of treatment with molnupiravir. Do not stop taking molnupiravir before you complete the full 5 days of treatment, even if you feel better. Take molnupiravir with or without food. You should stay in isolation for as long as your healthcare provider tells you to. Talk to your healthcare provider if you are not sure about how to properly isolate while you have COVID-19. Swallow molnupiravir capsules whole. Do not open, break, or crush the capsules. If you cannot swallow capsules whole, tell your healthcare provider. What to do if you miss a dose: If it has been less than 10 hours since the missed dose, take it as soon as you remember If it has been more than 10 hours since the missed dose, skip the missed dose and take your dose atthe next scheduled time. Do not double the dose of molnupiravir to make up for a missed dose. What are the important possible side effects of molnupiravir? Possible side effects of molnupiravir are: See, What is the most important information I should know about molnupiravir? diarrhea nausea dizziness These are not all the possible side effects of molnupiravir. Not many people have taken molnupiravir. Serious and unexpected side effects may happen. This medicine is still being studied,so it is possible that all of the risks are not known at this time. What other treatment choices are there? Like molnupiravir, FDA may allow for the emergency use of other medicines to treat people with COVID-19. Go to https://www.fda.gov/mzjsmdpov-soqyymrnxyjd-pur-response/txr-bpvwlpifsyqcusq-auk- policy-framework/nlomvnuuo-kjh-xxlyuouihbtbb for more information. It is your choice to be treated or not to be treated with molnupiravir. Should you decide not to take it, it will not change your standard medical care. What if I am ? is not recommended during treatment with molnupiravir and for 4 days after the last dose of molnupiravir. If you are or plan to breastfeed, talk to your healthcare provider about your options and specific situation before taking molnupiravir. How do I report side effects with molnupiravir? Contact your healthcare provider if you have any side effects that bother you or do not go away. Report side effects to FDA MedWatch at www.fda.gov/medwatch or call 6-822-TFH-9746 ( ). How should I store molnupiravir? Store molnupiravir capsules at room temperature between 68 F to 77 F (20 C to 25 C). Keep molnupiravir and all medicines out of the reach of children and pets. How can I learn more about COVID-19? Ask your healthcare provider. Visit www.cdc.gov/COVID19 Contact your local or state public health department. Call [employer] at (toll free in the [place] Visit www.molnupiravirVideoAvatars What Is an Emergency Use Authorization (EUA)? The [place] FDA has made molnupiravir available under an emergency access mechanism called an Emergency Use Authorization (EUA) The EUA is supported by a [place] of Health and Human Service (HHS) declaration that circumstances exist to justify emergency use of drugs and biological products during the COVID-19 pandemic. Molnupiravir for the treatment of momj-pj-qmbylqva COVID-19 in adults with positive results of direct SARS-CoV-2 viral testing, who are at high risk for progression to severe COVID-19, including hospitalization or , and for whom alternative COVID-19 treatment options authorized by FDA are not accessible or clinically appropriate, has not undergone the same type of review as an FDA- approved product. In issuing an EUA under the COVID-19 public health emergency, the FDA has determined, among other things, that based on the total amount of scientific evidence available including data from adequate and well-controlled clinical trials, if available, it is reasonable to believe that the product may be effective for diagnosing, treating, or preventing COVID-19, or a serious or life-threatening disease or condition caused by COVID19; that the known and potential benefits of the product, when used to diagnose, treat, or prevent such disease or condition, outweigh the known and potential risks of such product; and that there are no adequate, approved, and available alternatives. All of these criteria must be met to allow for the product to be used in the treatment of patients during the COVID-19 pandemic. The EUA for molnupiravir is in effect for the duration of the COVID-19declaration justifying emergency use of molnupiravir, unless terminated or revoked (after which molnupiravir may no longer be used under the EUA). For patent information: www.[employer]/research/patent Copyright 2020 [employer] [facility] and its affiliates. All rights reserved. [id number] Issued: 10/21/2021 documented in this encounterCinc[facility]09-06-2022 Miscellaneous Notes* Telephone Encounter - Dodie Sarah RN - 07/05/2022 10:26 AM EDT Pt called in and reports he took a Covid test and was positive. Pt wants to get on Paxlovid. Lookedand there were no open visits with providers for VV. Pt reports he was going to come into [facility], states previous nurse had told him to. Pt is going to bring his positive Covid test with him in a container. documented in this encounterCincinnati [facility]09-05-2022 Instructions* Patient Instructions* Sharon Zamora PA-C - 07/04/2022 10:48 AM EDT ASSESSMENT/PLAN: 1. Oral candidiases - Likely secondary to inhaled steroid use No sore throat or sick symptoms White coating in the mouth and tongue - NYSTATIN 100,000 UNIT/ML ORAL SUSPENSION Encourage fluids, rest. Try Cepocol lozenges or Chloraseptic throat spray. Warm salt water gargles. Call PCP if sx worsen or no better. If symptoms worsen, or new symptoms develop go to ER. If you have worsening of breathing or breathing changes- go to ER. If you have persistent fever unrelieved by Tylenol/Motrin- go to the ER. Follow up as needed. Pt agreeable with plan. Barriers to learning: none. The patient verbalizes understanding and is in agreement with plan of care. Sharon Zamora PA-C documented in this encounterCincinnati [facility]09-05-2022 History of Present illness Narrative* Sharon Zamora PA-C - 07/04/2022 10:46 AM EDT Images from the original note were not included. 07/04/2022 Patient presents with: Mouth/Lip Problem: Possible thrush x3 days SUBJECTIVE: This is a 67 year old that is here today for acute onset white coating in the tongue and palate x 3 days. Tongue feels funny nose. No sore throat. He uses an inhaled steroid and does not always rinse mouth afterwards. No cough, n/v, EDWARDS, or rash. No other sick symptoms. No other URI symptoms. Denies fever, chills, sweats, or fatigue. Patient denies wheezing, shortness of breath, increased WOB, or chest pain. Asthma: COPD Pneumonia: none Tobacco: none Pain on scale of 0-10 with 0 being no pain and 10 being greatest pain: 0 Nothing makes the symptoms better. Nothing makes them worse. Self-treatment:. none The severity is mild and the symptoms are not improving. The patient did not have a similar problem in the last 3 months. The patient did not take any antibiotics in the last 3 months. The patient was not exposed to strep. Barriers to learning: none. Reviewed meds, OTCs, herbals or supplements. Reviewed allergies, medications, social history, and past medical history. PAST MEDICAL HISTORY Diagnosis Date Achilles tendinitis of both lower extremities 06/23/2020 Arthritis Asthma CAD (coronary artery disease) 01/11/2012 Chronic bronchitis (HCC) 10/07/2013 06/17/2014 COA511% predicted. COPD (chronic obstructive pulmonary disease) (HCC) DDD (degenerative disc disease), lumbar 12/13/2013 Diverticulitis Perforated HTN (hypertension) 01/11/2012 Hyperlipidemia 08/04/2012 Lumbar disc displacement without myelopathy 04/04/2014 Nodule of lower lobe of left lung (low dose lung CT) 05/05/2021 Perforated diverticulum of large intestine 08/20/2012 S/P CABG x 2 10/14/1995 Status post insertion of drug-eluting stent into right coronary artery for coronary artery disease 09/30/2021 Tobacco use disorder 10/27/2012 ALLERGIES Levofloxacin MEDICATIONS Current Outpatient Medications Medication Sig losartan (COZAAR) 100 mg tablet Take 0.5 tablets by mouth once daily. 1/2 tab once daily omeprazole (PRILOSEC) 20 mg capsule Take 2 capsules by mouth once daily. ipratropium-albuterol (DUONEB) 0.5 mg-3 mg(2.5 mg base)/3 mL nebu Inhale 3 mL as instructed every 6hours as needed. potassium chloride (KLOR-CON) 20 mEq packet Take 20 mEq by mouth once daily. clopidogrel (PLAVIX) 75 mg tablet Take 1 tablet by mouth once daily. albuterol HFA (PROAIR HFA) 90 mcg/actuation inhaler Inhale 2 Puffs as instructed every 6 hours as needed for wheezing/shortness of breath. metoprolol succinate ER (TOPROL XL) 50 mg 24 hr tablet Take 1 tablet by mouth twice daily. furosemide (LASIX) 40 mg tablet Take 40 mg by mouth once daily. isosorbide mononitrate ER (IMDUR) 30 mg 24 hr tablet Take 30 mg by mouth once daily. rosuvastatin (CRESTOR) 40 mg tablet Take 1 tablet by mouth once daily. budesonide-formoterol (SYMBICORT) 160-4.5 mcg/actuation inhaler Inhale 2 Puffs as instructed twice daily. aspirin 81 mg chewable tablet Take 81 mg by mouth once daily. nystatin (MYCOSTATIN) 100,000 unit/mL suspension Take 5 mL by mouth four times daily for 10 days. 1tsp swish in mouth for several minutes, then swallow (or expectorate) 4 times daily until gone. No current facility-administered medications for this visit. Medications and allergies reviewed by this provider. SOCIAL HISTORY Social History Tobacco Use Smoking status: Every Day Packs/day: 0.50 Years: 34.00 Pack years: 17.00 Types: Cigarettes, Pipe Start date: 06/17/1984 Smokeless tobacco: Never Vaping Use Vaping Use: Never used Substance Use Topics Alcohol use: Yes Alcohol/week: 17.6 standard drinks Types: 12 Mixed Drinks, 2 Standard drinks or equivalent per week Comment: 2 mixed drinks per day Drug use: No Frequency: 2.0 times per week REVIEW OF SYSTEMS Review of Systems ROS: constitutional-neg, HENT- mouth coatingEyes- neg, Allergy- neg, heart-neg, respiratory-neg, GI-neg, skin-neg, lymph-neg, - All systems neg except as noted above in HPI. OBJECTIVE: BP 120/82 Pulse 95 Temp 36.7 C (98.1 F) Resp 18 Wt 78.2 kg (172 lb 6.4 oz) SpO2 96% BMI27.00 kg/m . Vital signs reviewed by this provider. Physical Exam Vitals reviewed. Constitutional: General: He is not in acute distress. Appearance: Normal appearance. He is well-developed and normal weight. He is not ill-appearing, toxic-appearing or diaphoretic. HENT: Head: Normocephalic and atraumatic. No right periorbital erythema or left periorbital erythema. Salivary Glands: Right salivary gland is not diffusely enlarged or tender. Left salivary gland is not diffusely enlarged or tender. Right Ear: Tympanic membrane, ear canal and external ear normal. Left Ear: Tympanic membrane, ear canal and external ear normal. Nose: Nose normal. No congestion or rhinorrhea. Right Sinus: No maxillary sinus tenderness or frontal sinus tenderness. Left Sinus: No maxillary sinus tenderness or frontal sinus tenderness. Mouth/Throat: Lips: No lesions. Mouth: Mucous membranes are moist. No oral lesions. Dentition: No gum lesions. Tongue: No lesions. Tongue does not deviate from midline. Palate: No mass and lesions. Pharynx: Oropharynx is clear. No pharyngeal swelling, oropharyngeal exudate, posterior oropharyngeal erythema or uvula swelling. Tonsils: No tonsillar exudate or tonsillar abscesses. Eyes: General: Lids are normal. No scleral icterus. Right eye: No discharge. Left eye: No discharge. Extraocular Movements: Extraocular movements intact. Conjunctiva/sclera: Conjunctivae normal. Pupils: Pupils are equal, round, and reactive to light. Cardiovascular: Rate and Rhythm: Normal rate and regular rhythm. Heart sounds: Normal heart sounds. Pulmonary: Effort: Pulmonary effort is normal. Breath sounds: Normal breath sounds and air entry. Musculoskeletal: Cervical back: Full passive range of motion without pain. No spinous process tenderness or musculartenderness. Lymphadenopathy: Head: Right side of head: No submental, submandibular, tonsillar, preauricular or posterior auricular adenopathy. Left side of head: No submental, submandibular, tonsillar, preauricular or posterior auricular adenopathy. Cervical: No cervical adenopathy. Skin: General: Skin is warm. Capillary Refill: Capillary refill takes less than 2 seconds. Findings: No rash. Neurological: General: No focal deficit present. Mental Status: He is alert and oriented to person, place, and time. Cranial Nerves: No facial asymmetry. Psychiatric: Attention and Perception: Attention normal. Behavior: Behavior is cooperative. ASSESSMENT/PLAN: 1. Oral candidiases - ICD9: 112.0, ICD10: B37.0 Likely secondary to inhaled steroid use No sore throat or sick symptoms White coating in the mouth and tongue - NYSTATIN 100,000 UNIT/ML ORAL SUSPENSION Encourage fluids, rest. Try Cepocol lozenges or Chloraseptic throat spray. Warm salt water gargles. Call PCP if sx worsen or no better. If symptoms worsen, or new symptoms develop go to ER. If you have worsening of breathing or breathing changes- go to ER. If you have persistent fever unrelieved by Tylenol/Motrin- go to the ER. Follow up as needed. Pt agreeable with plan. Barriers to learning: none. The patient verbalizes understanding and is in agreement with plan of care. Sharon Zamora PA-C Medical Decision Making: Problems: Moderate: Acute illness with systemic symptoms Risk: Low: Low risk from testing/treatment Moderate: Drug management Medical Decision Making Level: 4 - Moderate I spent a total of 20 minutes on the date of the service which included preparing to see the patient, [id number] patient care, completing clinical documentation, performing a medically appropriate examination, counseling and educating the patient/family/caregiver, and ordering medications, tests,or procedures. documented in this encounterC[facility]08[facility]31-[facility] Miscellaneous Notes* Telephone Encounter - Phil Mitchell Ma - 06/29/2022 10:32 AM EDT RAI: 05/09/2022 Last refill: med update. documented in this encounterCinc[facility]08-29-2022 Miscellaneous Notes* Telephone Encounter - Phil Mitchell Ma - 06/27/2022 12:48 PM EDT RAI: 05/09/2022 Last refill: 11/21/2021 QTY: 180 Refills: 3 documented in this encounterCinc[facility]08-22-2022 Miscellaneous Notes* Telephone Encounter - Pat Richey LPN - 06/20/2022 2:55 PM EDT 05/30/2022 Medication order was disconttinued. Patient has been identified by name and date of : Yes Patient phones for refill(s): Requested Prescriptions Pending Prescriptions Disp Refills ipratropium-albuterol (DUONEB) 0.5 mg-3 mg(2.5 mg base)/3 mL nebu 10 Vial 2 Sig: Inhale 3 mL as instructed every 6 hours as needed. Date of last office visit in primary care: 05/09/2022 6 month follow-up: 11/09/2022 Last 2 Encounter Wt Readings: Date: Wt: 05/09/2022 79.4 kg (175 lb) 12/22/2021 83.5 kg (184 lb) Previous labs/tests for medication: Not applicable Please advise. Thank you. Pat Richey LPN documented in this encounterCinc[facility]08-01-2022 Miscellaneous Notes* Telephone Encounter - Pat Richey LPN - 05/30/2022 12:54 PM EDT Patient has been identified by name and date of : Yes Patient phones for refill(s): Pending Prescriptions Disp Refills IPRATROPIUM 0.5 MG-ALBUTEROL 3 MG (2.5 MG BASE)/3 ML NEBULIZATION SOLN 10 Vial 2 Sig: Inhale 3 mL as instructed every 6 hours as needed. MAGALI: No Date of last office visit in primary care: 05/09/2022 6 month follow-up: 11/09/2021 Last 2 Encounter Wt Readings: Date: Wt: 05/09/2022 79.4 kg (175 lb) 12/22/2021 83.5 kg (184 lb) Previous labs/tests for medication: Not applicable Please advise. Thank you. Pat Richey LPN documented in this encounterCinc[facility]07-27-2022 History of Present illness Narrative* Josh Reveles RN - 05/25/2022 3:37 PM EDT inSight CDM Engagement Provider Action/FYI: Please have office staff contact Pt directly with any recommendations or orders- Thank you. Spk with Pt he noted no new or worsening COPD symptoms. Pt wanted to verify if there was a capsule or powder form for Potassium to replace the large Potassium tablets he is taking, he has a hard time swallowing them, he has tried cutting the tablet in half, it makes his throat sore to swallow the half tablet. Contact Made with Patient: Yes Patient identified by name and . Discussed care with patient Qian treviño name is Darlyn Moreno RN your Refrigeration Repair Supervisor [facility] I am reaching out today because I noticed it has been a few weeks since I have seen any responses from you on your questionnaire. I wanted to check on you and make sure you are doing well, and to remind you that your George Vázquez MD recommended this program for you so that you can stay better connected to your health. I will be monitoring your responses on the questionnaire to make sure we are not seeing any changes in your health that your Primary Care Physician needs to know about, or looking for improvements and keeping George Vázquez MD informed about it all. You and I will check in together anytime a problem arises, and determine a solution. I am here to help you stay healthy, and stay connected to your doctor's office. How can I help you in this program? The patient informs that he forgot. Please take some time today to answer the questionnaire. I am looking forward to receiving your answers. If I do not receive your answers in the next 2 business days I will check back in. ---END CALL Darlyn Moreno RN May 25, 2022 3:37 PM documented in this encounterCinc[facility]07-18-2022 Miscellaneous Notes* Telephone Encounter - Kimberlee Craft LPN - 05/16/2022 10:13 AM EDT Pt called and requests referral to gastro and all information be faxed to Dr. Javier at [facility]. Done. Kimberlee Craft LPN documented in this encounterCincinnati [facility]07-12-2022 Miscellaneous Notes* Telephone Encounter - Kimberlee Craft LPN - 05/10/2022 4:09 PM EDT Gifty with [facility] called for last office visit/labs/procedures done. Identifiedpt with name and date of . They received referral and demographics sheet. Faxed above to [phone]. Kimberlee Craft LPN documented in this encounterCinc[facility]06-27-2022 History of Present illness Narrative* Josh Reveles RN - 04/25/2022 2:01 PM EDT INS[facility] CDM TELEPHONIC OUTREACH Provider Action/FYI: Call to Pt left a message to verify COPD/ Bronchitis status or needs. Contact made with patient: No - Left message Qian my name is Darlyn Moreno RN your Refrigeration Repair Supervisor [facility] the [facility] I am callingtoday for your bi-weekly check in. I am sorry I missed your call. I will reach out to you again tomorrow. (if the third call I will reach out to you again next week) Enter next patient outreach date for the following business day using the Track Pt Outreach. End outreach. Darlyn Moreno RN April 25, 2022 2:01 PM documented in this encounterCincinnati [facility]06-16-2022 Miscellaneous Notes* Telephone Encounter - Pat Richey LPN - 04/14/2022 1:51 PM EDT Patient has been identified by name and date of : Yes Patient phones for refill(s): Pending Prescriptions Disp Refills CLOPIDOGREL 75 MG TABLET 90 tablet 3 Sig: Take 1 tablet by mouth once daily. MAGALI: No Date of last office visit in primary care: 11/05/2021 Medicare Wellness: 05/09/2022 Last 2 Encounter Wt Readings: Date: Wt: 12/22/2021 83.5 kg (184 lb) 11/08/2021 81.6 kg (180 lb) Previous labs/tests for medication: Blood Pressure: BUN (mg/dL) Date Value 11/08/2021 16 Sodium (mmol/L) Date Value 11/08/2021 145 Last 1 Encounter BP Readings: Date: BP: 12/22/2021 124/77 Please advise. Thank you. Pat Richey LPN documented in this encounterCinc[facility]06-08-2022 History of Present illness Narrative* Josh Reveles RN - 04/06/2022 1:24 PM EDT [facility] CDM TELEPHONIC OUTREACH Provider Action/FYI: Call to Pt left a message to verify COPD/ Bronchitis status or needs. Contact made with patient: No - Left message Qian my name is Darlyn Moreno RN your Refrigeration Repair Supervisor [facility] I am callingtoday for your bi-weekly check in. I am sorry I missed your call. I will reach out to you again tomorrow. (if the third call I will reach out to you again next week) Enter next patient outreach date for the following business day using the Track Pt Outreach. End outreach. Darlyn Moreno RN April 06, 2022 1:24 PM * Josh Reveles RN - 04/04/2022 3:54 PM EDT [facility] CD[facility] Engagement Provider Action/FYI: Call to Pt left a vm to verify COPD or other symptom status and needs. Contact Made with Patient: No, first attempt, left message. Qian Henderson. This is Darlyn Moreno RN your Refrigeration Repair Supervisor [facility]. I am calling to check in with you concerning the MyChart questionnaire you have been receiving from me. I will call you again tomorrow and am looking forward to speaking with you. (Refrigeration Repair Supervisor enters next day in next patient outreach) Darlyn Moreno RN April 04, 2022 3:54 PM documented in this encounterCinc[facility]05-23-2022 Miscellaneous Notes* Telephone Encounter - Phil Mitchell Ma - 03/21/2022 1:18 PM EDT RAI: 11/05/2021 Last refill: 08/05/2021 QTY: 18 g Refills: 5 Patient phones requesting refills as follows: Pending Prescriptions Disp Refills ALBUTEROL SULFATE HFA 90 MCG/ACTUATION AEROSOL INHALER 18 g 5 Sig: Inhale 2 Puffs as instructed every 6 hours as needed for wheezing/shortness of breath. MAGALI: No Please review and advise. Phil Mitchell Ma documented in this encounterCinc[facility]05-23-2022 Miscellaneous Notes* Telephone Encounter - Phil Mitchell Ma - 03/21/2022 1:04 PM EDT RAI: 11/05/2021 Last refill: 12/27/2021 QTY: 10 vials Refills: 2 Patient's request for medication is as follows: Pending Prescriptions Disp Refills IPRATROPIUM 0.5 MG-ALBUTEROL 3 MG (2.5 MG BASE)/3 ML NEBULIZATION SOLN 10 Vial 2 Sig: Inhale 3 mL as instructed every 6 hours as needed. MAGALI: No Please approve the above prescription(s) to electronically send to pharmacy. Phil Mitchell Ma documented in this encounterCinc[facility]05-02-2022 History of Present illness Narrative* Josh Reveles RN - 02/28/2022 3:32 PM EDT [facility] CDM Engagement Provider Action/FYI: Call to Pt left a vm to verify COPD or other symptoms and needs. Contact Made with Patient: No, first attempt, left message. Qian Henderson. This is Darlyn Moreno RN your Refrigeration Repair Supervisor [facility]. I am calling to check in with you concerning the MyChart questionnaire you have been receiving from me. I will call you again and am looking forward to speaking with you. (Refrigeration Repair Supervisor enters next day in next patient outreach) Darlyn Moreno RN February 28, 2022 3:33 PM documented in this encounterCinc[facility]04-08-2022 History of Present illness Narrative* Josh Reveles RN - 02/04/2022 3:28 PM EDT [facility] CDM Engagement Provider Action/FYI: Call to Pt left a vm to verify COPD or other symptoms and needs. Provided Insight Monitoring questionnaire location and reminder. Contact Made with Patient: No, first attempt, left message. Qian Henderson. This is Darlyn Moreno RN your Refrigeration Repair Supervisor [facility]. I am calling to check in with you concerning the MyChart questionnaire you have been receiving from me. I will call you again tomorrow and am looking forward to speaking with you. (Refrigeration Repair Supervisor enters next day in next patient outreach) Darlyn Moreno RN February 04, 2022 3:28 PM documented in this encounterCinc[facility]03-25-2022 History of Present illness Narrative* Josh Reveles RN - 01/21/2022 2:28 PM EDT PRIMARY CARE COORDINATION QUICK NOTE Provider Action/FYI Insight Questionnaire resent via smart phone Patient identified by name and date . 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 [place] heart without angina pectoris chronic COPD (chronic obstructive pulmonary disease) chronic Hyperlipidemia chronic Hypertension [facility] Work Phone: 1(902) 314-703001-01-2022 Evaluation note* Diagnosis Onset Date Resolution Status Presence of stent in coronary artery October, acute 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 [place] heart without angina pectoris chronic COPD (chronic obstructive pulmonary disease) chronic Hyperlipidemia chronic Hypertension chronic Nocturnal hypoxia chronic Smoking greater than 30 pack years chronic 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 Presence of stent in coronary artery October, acute 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 [place] heart without angina pectoris chronic COPD (chronic obstructive pulmonary disease) chronic Hyperlipidemia chronic Hypertension [facility] Work Phone: 1(111) 764-657901-01-2022 Evaluation note* Diagnosis Onset Date Resolution Status Presence of stent in coronary artery October, acute 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 [place] heart without angina pectoris chronic COPD (chronic obstructive pulmonary disease) chronic Hyperlipidemia chronic Hypertension chronic [id number] acute Stage 3 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 [facility] Work Phone: 1(690) 260-797901-01-2022 Evaluation note* Diagnosis Onset Date Resolution Status Presence of stent in coronary artery October, acute Syncope acute Atherosclerosis of coronary artery of [place] heart without angina pectoris chronic COPD (chronic obstructive pulmonary disease) chronic Hyperlipidemia chronic Postprandial epigastric pain chronic Nocturnal hypoxia chronic Solid nodule of lung greater than 8 mm in diameter chronic 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 Shortness of breath on exertion acute Stage 3 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 [facility] Work Phone: 1(275) 562-613303-02-2021 History of Present illness Narrative* Sheryl Hassan (Rt), [place] - 12/29/2020 12:50 PM EST Radiology Service Progress Note PATIENT NAME: Horace Henderson DATE OF SERVICE: December 29, 2020 TIME: 12:51 PM PATIENT IDENTITY VERIFICATION COMPLETED USING TWO (2) IDENTIFIERS: Name and Date of confirmedby patient verbally. FALL SCREENING: Has the patient had 2 falls in the last year or 1 fall with injury or currently using an Ambulatory Assistive Device (Walker, Cane, Wheelchair, Crutches, etc.)? No PATIENT GENDER DATA: Male PATIENT RELEVANT IMPLANT DATA REVIEWED: Yes RADIOLOGY DEPARTMENT: General X-ray: Exam(s) Completed: Spine X-Ray(s): Lumbar AP / LAT / L5-S1 PERIPHERAL IV DATA: Not applicable SIGNED BY: RT Loreta December 29, 2020 12:51 PM documented in this encounterCinc[facility]01-12-2017 History of Past illness Narrative* Problem Noted Date Resolved Date Essential hypertension 11/10/2016 7 Tobacco abuse 11/06/2015 11/15/2016 Lumbar disc displacement without myelopathy 03/201404/17/2018 Lumbar radiculopathy 12/13/2013 04/17/2018 Primary localized osteoarthrosis, lower leg 03/201404/29/2015 Knee 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 11/04/2013 04/29/2015 Perforated diverticulum of large intestine 08/2010/27/2012 Sciatica 06/21/2012 04/29/2015 Diverticulitis 01/09/2014 documented as of this encounter (statuses as of 01/21/2022) [facility] of Past illness Narrative* Problem Noted Date Resolved Date Essential hypertension 11/10/2016 7 Tobacco abuse 11/06/2015 11/15/2016 Lumbar disc displacement without myelopathy 06/0 03/201404/17/2018 Lumbar radiculopathy 12/13/2013 04/17/2018 Primary localized osteoarthrosis, lower leg 01/0 03/201404/29/2015 Knee 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 11/04/2013 04/29/2015 Perforated diverticulum of large intestine 08/2010/27/2012 Sciatica 06/21/2012 04/29/2015 Diverticulitis 01/09/2014 documented as of this encounter (statuses as of 02/04/2022) [facility] of Past illness Narrative* Problem Noted Date Resolved Date Essential hypertension 11/10/2016 7 Tobacco abuse 11/06/2015 11/15/2016 Lumbar disc displacement without myelopathy 06/0 03/201404/17/2018 Lumbar radiculopathy 12/13/2013 04/17/2018 Primary localized osteoarthrosis, lower leg 01/0 03/201404/29/2015 Knee 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 11/04/2013 04/29/2015 Perforated diverticulum of large intestine 08/2010/27/2012 Sciatica 06/21/2012 04/29/2015 Diverticulitis 01/09/2014 documented as of this encounter (statuses as of 02/23/2022) [facility] of Past illness Narrative* Problem Noted Date Resolved Date Essential hypertension 11/10/2016 7 Tobacco abuse 11/06/2015 11/15/2016 Lumbar disc displacement without myelopathy 06/0 03/201404/17/2018 Lumbar radiculopathy 12/13/2013 04/17/2018 Primary localized osteoarthrosis, lower leg 01/0 03/201404/29/2015 Knee 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 11/04/2013 04/29/2015 Perforated diverticulum of large intestine 08/2010/27/2012 Sciatica 06/21/2012 04/29/2015 Diverticulitis 01/09/2014 documented as of this encounter (statuses as of 02/28/2022) [facility] of Past illness Narrative* Problem Noted Date Resolved Date Essential hypertension 11/10/2016 7 Tobacco abuse 11/06/2015 11/15/2016 Lumbar disc displacement without myelopathy 06/0 03/201404/17/2018 Lumbar radiculopathy 12/13/2013 04/17/2018 Primary localized osteoarthrosis, lower leg 01/0 03/201404/29/2015 Knee 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 11/04/2013 04/29/2015 Perforated diverticulum of large intestine 08/2010/27/2012 Sciatica 06/21/2012 04/29/2015 Diverticulitis 01/09/2014 documented as of this encounter (statuses as of 03/21/2022) [facility] of [facility] illness Narrative* Problem Noted Date Resolved Date Essential hypertension 11/10/2016 7 Tobacco abuse 11/06/2015 11/15/2016 Lumbar disc displacement without myelopathy 06/0 03/201404/17/2018 Lumbar radiculopathy 12/13/2013 04/17/2018 Primary localized osteoarthrosis, lower leg 01/0 03/201404/29/2015 Knee 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 11/04/2013 04/29/2015 Perforated diverticulum of large intestine 08/2010/27/2012 Sciatica 06/21/2012 04/29/2015 Diverticulitis 01/09/2014 documented as of this encounter (statuses as of 03/21/2022) [facility] of [facility] illness Narrative* Problem Noted Date Resolved Date Essential hypertension 11/10/2016 7 Tobacco abuse 11/06/2015 11/15/2016 Lumbar disc displacement without myelopathy 06/0 03/201404/17/2018 Lumbar radiculopathy 12/13/2013 04/17/2018 Primary localized osteoarthrosis, lower leg 01/0 03/201404/29/2015 Knee 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 11/04/2013 04/29/2015 Perforated diverticulum of large intestine 08/2010/27/2012 Sciatica 06/21/2012 04/29/2015 Diverticulitis 01/09/2014 documented as of this encounter (statuses as of 04/06/2022) [facility] illness Narrative* Problem Noted Date Resolved Date Essential hypertension 11/10/2016 7 Tobacco abuse 11/06/2015 11/15/2016 Lumbar disc displacement without myelopathy 06/0 03/201404/17/2018 Lumbar radiculopathy 12/13/2013 04/17/2018 Primary localized osteoarthrosis, lower leg 01/0 03/201404/29/2015 Knee 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 11/04/2013 04/29/2015 Perforated diverticulum of large intestine 08/2010/27/2012 Sciatica 06/21/2012 04/29/2015 Diverticulitis 01/09/2014 documented as of this encounter (statuses as of 04/14/2022) [facility] of [facility] illness Narrative* Problem Noted Date Resolved Date Essential hypertension 11/10/2016 7 Tobacco abuse 11/06/2015 11/15/2016 Lumbar disc displacement without myelopathy 06/0 03/201404/17/2018 Lumbar radiculopathy 12/13/2013 04/17/2018 Primary localized osteoarthrosis, lower leg 01/0 03/201404/29/2015 Knee 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 11/04/2013 04/29/2015 Perforated diverticulum of large intestine 08/2010/27/2012 Sciatica 06/21/2012 04/29/2015 Diverticulitis 01/09/2014 documented as of this encounter (statuses as of 04/21/2022) [facility] Narrative* Problem Noted Date Resolved Date Essential hypertension 11/10/2016 7 Tobacco abuse 11/06/2015 11/15/2016 Lumbar disc displacement without myelopathy 06/0 03/201404/17/2018 Lumbar radiculopathy 12/13/2013 04/17/2018 Primary localized osteoarthrosis, lower leg 01/0 03/201404/29/2015 Knee 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 11/04/2013 04/29/2015 Perforated diverticulum of large intestine 08/2010/27/2012 Sciatica 06/21/2012 04/29/2015 Diverticulitis 01/09/2014 documented as of this encounter (statuses as of 04/25/2022) [facility] of [facility] illness Narrative* Problem Noted Date Resolved Date Essential hypertension 11/10/2016 7 Tobacco abuse 11/06/2015 11/15/2016 Lumbar disc displacement without myelopathy 06/0 03/201404/17/2018 Lumbar radiculopathy 12/13/2013 04/17/2018 Primary localized osteoarthrosis, lower leg 01/0 03/201404/29/2015 Knee 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 11/04/2013 04/29/2015 Perforated diverticulum of large intestine 08/2010/27/2012 Sciatica 06/21/2012 04/29/2015 Diverticulitis 01/09/2014 documented as of this encounter (statuses as of 05/10/2022) [facility] illness Narrative* Problem Noted Date Resolved Date Essential hypertension 11/10/2016 7 Tobacco abuse 11/06/2015 11/15/2016 Lumbar disc displacement without myelopathy 06/0 03/201404/17/2018 Lumbar radiculopathy 12/13/2013 04/17/2018 Primary localized osteoarthrosis, lower leg 01/0 03/201404/29/2015 Knee 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 11/04/2013 04/29/2015 Perforated diverticulum of large intestine 08/2010/27/2012 Sciatica 06/21/2012 04/29/2015 Diverticulitis 01/09/2014 documented as of this encounter (statuses as of 05/16/2022) [facility] History of Past illness Narrative* Problem Noted Date Resolved Date Essential hypertension 11/10/2016 7 Tobacco abuse 11/06/2015 11/15/2016 Lumbar disc displacement without myelopathy 06/0 03/201404/17/2018 Lumbar radiculopathy 12/13/2013 04/17/2018 Primary localized osteoarthrosis, lower leg 01/0 03/201404/29/2015 Knee 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 11/04/2013 04/29/2015 Perforated diverticulum of large intestine 08/2010/27/2012 Sciatica 06/21/2012 04/29/2015 Diverticulitis 01/09/2014 documented as of this encounter (statuses as of 05/24/2022) [facility] History of Past illness Narrative* Problem Noted Date Resolved Date Essential hypertension 11/10/2016 7 Tobacco abuse 11/06/2015 11/15/2016 Lumbar disc displacement without myelopathy 06/0 03/201404/17/2018 Lumbar radiculopathy 12/13/2013 04/17/2018 Primary localized osteoarthrosis, lower leg 01/0 03/201404/29/2015 Knee 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 11/04/2013 04/29/2015 Perforated diverticulum of large intestine 08/2010/27/2012 Sciatica 06/21/2012 04/29/2015 Diverticulitis 01/09/2014 documented as of this encounter (statuses as of 05/25/2022) [facility] History of Past illness Narrative* Problem Noted Date Resolved Date Essential hypertension 11/10/2016 7 Tobacco abuse 11/06/2015 11/15/2016 Lumbar disc displacement without myelopathy 06/0 03/201404/17/2018 Lumbar radiculopathy 12/13/2013 04/17/2018 Primary localized osteoarthrosis, lower leg 01/0 03/201404/29/2015 Knee 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 11/04/2013 04/29/2015 Perforated diverticulum of large intestine 08/2010/27/2012 Sciatica 06/21/2012 04/29/2015 Diverticulitis 01/09/2014 documented as of this encounter (statuses as of 05/30/2022) [facility] History of Past illness Narrative* Problem Noted Date Resolved Date Essential hypertension 11/10/2016 7 Tobacco abuse 11/06/2015 11/15/2016 Lumbar disc displacement without myelopathy 06/0 03/201404/17/2018 Lumbar radiculopathy 12/13/2013 04/17/2018 Primary localized osteoarthrosis, lower leg 01/0 03/201404/29/2015 Knee 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 11/04/2013 04/29/2015 Perforated diverticulum of large intestine 08/2010/27/2012 Sciatica 06/21/2012 04/29/2015 Diverticulitis 01/09/2014 documented as of this encounter (statuses as of 06/20/2022) [facility] History of Past illness Narrative* Problem Noted Date Resolved Date Essential hypertension 11/10/2016 7 Tobacco abuse 11/06/2015 11/15/2016 Lumbar disc displacement without myelopathy 06/0 03/201404/17/2018 Lumbar radiculopathy 12/13/2013 04/17/2018 Primary localized osteoarthrosis, lower leg 01/0 03/201404/29/2015 Knee 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 11/04/2013 04/29/2015 Perforated diverticulum of large intestine 08/2010/27/2012 Sciatica 06/21/2012 04/29/2015 Diverticulitis 01/09/2014 documented as of this encounter (statuses as of 06/27/2022) [facility] History of Past illness Narrative* Problem Noted Date Resolved Date Essential hypertension 11/10/2016 7 Tobacco abuse 11/06/2015 11/15/2016 Lumbar disc displacement without myelopathy 06/0 03/201404/17/2018 Lumbar radiculopathy 12/13/2013 04/17/2018 Primary localized osteoarthrosis, lower leg 01/0 03/201404/29/2015 Knee 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 11/04/2013 04/29/2015 Perforated diverticulum of large intestine 08/2010/27/2012 Sciatica 06/21/2012 04/29/2015 Diverticulitis 01/09/2014 documented as of this encounter (statuses as of 06/29/2022) [facility] History of Past illness Narrative* Problem Noted Date Resolved Date Essential hypertension 11/10/2016 7 Tobacco abuse 11/06/2015 11/15/2016 Lumbar disc displacement without myelopathy 06/0 03/201404/17/2018 Lumbar radiculopathy 12/13/2013 04/17/2018 Primary localized osteoarthrosis, lower leg 01/0 03/201404/29/2015 Knee 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 11/04/2013 04/29/2015 Perforated diverticulum of large intestine 08/2010/27/2012 Sciatica 06/21/2012 04/29/2015 Diverticulitis 01/09/2014 documented as of this encounter (statuses as of 07/04/2022) [facility] History of Past illness Narrative* Problem Noted Date Resolved Date Essential hypertension 11/10/2016 7 Tobacco abuse 11/06/2015 11/15/2016 Lumbar disc displacement without myelopathy 06/0 03/201404/17/2018 Lumbar radiculopathy 12/13/2013 04/17/2018 Primary localized osteoarthrosis, lower leg 01/0 03/201404/29/2015 Knee 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 11/04/2013 04/29/2015 Perforated diverticulum of large intestine 08/2010/27/2012 Sciatica 06/21/2012 04/29/2015 Diverticulitis 01/09/2014 documented as of this encounter (statuses as of 07/05/2022) [facility] History of Past illness Narrative* Problem Noted Date Resolved Date Essential hypertension 11/10/2016 7 Tobacco abuse 11/06/2015 11/15/2016 Lumbar disc displacement without myelopathy 06/0 03/201404/17/2018 Lumbar radiculopathy 12/13/2013 04/17/2018 Primary localized osteoarthrosis, lower leg 01/0 03/201404/29/2015 Knee 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 11/04/2013 04/29/2015 Perforated diverticulum of large intestine 08/2010/27/2012 Sciatica 06/21/2012 04/29/2015 Diverticulitis 01/09/2014 documented as of this encounter (statuses as of 07/05/2022) [facility] History of Past illness Narrative* Problem Noted Date Resolved Date Essential hypertension 11/10/2016 7 Tobacco abuse 11/06/2015 11/15/2016 Lumbar disc displacement without myelopathy 06/0 03/201404/17/2018 Lumbar radiculopathy 12/13/2013 04/17/2018 Primary localized osteoarthrosis, lower leg 01/0 03/201404/29/2015 Knee 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 11/04/2013 04/29/2015 Perforated diverticulum of large intestine 08/2010/27/2012 Sciatica 06/21/2012 04/29/2015 Diverticulitis 01/09/2014 documented as of this encounter (statuses as of 07/15/2022) [facility] History of Past illness Narrative* Problem Noted Date Resolved Date Essential hypertension 11/10/2016 7 Tobacco abuse 11/06/2015 11/15/2016 Lumbar disc displacement without myelopathy 06/0 03/201404/17/2018 Lumbar radiculopathy 12/13/2013 04/17/2018 Primary localized osteoarthrosis, lower leg 01/0 03/201404/29/2015 Knee 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 11/04/2013 04/29/2015 Perforated diverticulum of large intestine 08/2010/27/2012 Sciatica 06/21/2012 04/29/2015 Diverticulitis 01/09/2014 documented as of this encounter (statuses as of 07/28/2022) [facility] History of Past illness Narrative* Problem Noted Date Resolved Date Essential hypertension 11/10/2016 7 Tobacco abuse 11/06/2015 11/15/2016 Lumbar disc displacement without myelopathy 06/0 03/201404/17/2018 Lumbar radiculopathy 12/13/2013 04/17/2018 Primary localized osteoarthrosis, lower leg 01/0 03/201404/29/2015 Knee 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 11/04/2013 04/29/2015 Perforated diverticulum of large intestine 08/2010/27/2012 Sciatica 06/21/2012 04/29/2015 Diverticulitis 01/09/2014 documented as of this encounter (statuses as of 08/16/2022) [facility] History of Past illness Narrative* Problem Noted Date Resolved Date Essential hypertension 11/10/2016 7 Tobacco abuse 11/06/2015 11/15/2016 Lumbar disc displacement without myelopathy 06/0 03/201404/17/2018 Lumbar radiculopathy 12/13/2013 04/17/2018 Primary localized osteoarthrosis, lower leg 01/0 03/201404/29/2015 Knee 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 11/04/2013 04/29/2015 Perforated diverticulum of large intestine 08/2010/27/2012 Sciatica 06/21/2012 04/29/2015 Diverticulitis 01/09/2014 documented as of this encounter (statuses as of 08/22/2022) [facility] History of Past illness Narrative* Problem Noted Date Resolved Date Essential hypertension 11/10/2016 7 Tobacco abuse 11/06/2015 11/15/2016 Lumbar disc displacement without myelopathy 06/0 03/201404/17/2018 Lumbar radiculopathy 12/13/2013 04/17/2018 Primary localized osteoarthrosis, lower leg 01/0 03/201404/29/2015 Knee 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 11/04/2013 04/29/2015 Perforated diverticulum of large intestine 08/2010/27/2012 Sciatica 06/21/2012 04/29/2015 Diverticulitis 01/09/2014 documented as of this encounter (statuses as of 08/03/2022) [facility] History of Past illness Narrative* Problem Noted Date Resolved Date Essential hypertension 11/10/2016 7 Tobacco abuse 11/06/2015 11/15/2016 Lumbar disc displacement without myelopathy 06/0 03/201404/17/2018 Lumbar radiculopathy 12/13/2013 04/17/2018 Primary localized osteoarthrosis, lower leg 01/0 03/201404/29/2015 Knee 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 11/04/2013 04/29/2015 Perforated diverticulum of large intestine 08/2010/27/2012 Sciatica 06/21/2012 04/29/2015 Diverticulitis 01/09/2014 documented as of this encounter (statuses as of 09/06/2022) [facility] History of Past illness Narrative* Problem Noted Date Resolved Date Essential hypertension 11/10/2016 7 Tobacco abuse 11/06/2015 11/15/2016 Lumbar disc displacement without myelopathy 06/0 03/201404/17/2018 Lumbar radiculopathy 12/13/2013 04/17/2018 Primary localized osteoarthrosis, lower leg 01/0 03/201404/29/2015 Knee 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 11/04/2013 04/29/2015 Perforated diverticulum of large intestine 08/2010/27/2012 Sciatica 06/21/2012 04/29/2015 Diverticulitis 01/09/2014 documented as of this encounter (statuses as of 09/16/2022) [facility] History of Past illness Narrative* Problem Noted Date Resolved Date Essential hypertension 11/10/2016 7 Tobacco abuse 11/06/2015 11/15/2016 Lumbar disc displacement without myelopathy 06/0 03/201404/17/2018 Lumbar radiculopathy 12/13/2013 04/17/2018 Primary localized osteoarthrosis, lower leg 01/0 03/201404/29/2015 Knee 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 11/04/2013 04/29/2015 Perforated diverticulum of large intestine 08/2010/27/2012 Sciatica 06/21/2012 04/29/2015 Diverticulitis 01/09/2014 documented as of this encounter (statuses as of 09/26/2022) [facility]2017 History of Past illness Narrative* Problem Noted Date Resolved Date Essential hypertension 11/10/2016 7 Tobacco abuse 11/06/2015 11/15/2016 Lumbar disc displacement without myelopathy 06/0 03/201404/17/2018 Lumbar radiculopathy 12/13/2013 04/17/2018 Primary localized osteoarthrosis, lower leg 01/0 03/201404/29/2015 Knee 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 11/04/2013 04/29/2015 Perforated diverticulum of large intestine 08/2010/27/2012 Sciatica 06/21/2012 04/29/2015 Diverticulitis 01/09/2014 documented as of this encounter (statuses as of 10/13/2022) [facility] History of Past illness Narrative* Problem Noted Date Resolved Date Essential hypertension 11/10/2016 7 Tobacco abuse 11/06/2015 11/15/2016 Lumbar disc displacement without myelopathy 06/0 03/201404/17/2018 Lumbar radiculopathy 12/13/2013 04/17/2018 Primary localized osteoarthrosis, lower leg 01/0 03/201404/29/2015 Knee 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 11/04/2013 04/29/2015 Perforated diverticulum of large intestine 08/2010/27/2012 Sciatica 06/21/2012 04/29/2015 Diverticulitis 01/09/2014 documented as of this encounter (statuses as of 10/19/2022) [facility] History of Past illness Narrative* Problem Noted Date Resolved Date Essential hypertension 11/10/2016 7 Tobacco abuse 11/06/2015 11/15/2016 Lumbar disc displacement without myelopathy 06/0 03/201404/17/2018 Lumbar radiculopathy 12/13/2013 04/17/2018 Primary localized osteoarthrosis, lower leg 01/0 03/201404/29/2015 Knee 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 11/04/2013 04/29/2015 Perforated diverticulum of large intestine 08/2010/27/2012 Sciatica 06/21/2012 04/29/2015 Diverticulitis 01/09/2014 documented as of this encounter (statuses as of 11/02/2022) [facility] History of Past illness Narrative* Problem Noted Date Resolved Date Essential hypertension 11/10/2016 7 Tobacco abuse 11/06/2015 11/15/2016 Lumbar disc displacement without myelopathy 06/0 03/201404/17/2018 Lumbar radiculopathy 12/13/2013 04/17/2018 Primary localized osteoarthrosis, lower leg 01/0 03/201404/29/2015 Knee 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 11/04/2013 04/29/2015 Perforated diverticulum of large intestine 08/2010/27/2012 Sciatica 06/21/2012 04/29/2015 Diverticulitis 01/09/2014 documented as of this encounter (statuses as of 11/10/2022) [facility] History of Past illness Narrative* Problem Noted Date Resolved Date Essential hypertension 11/10/2016 7 Tobacco abuse 11/06/2015 11/15/2016 Lumbar disc displacement without myelopathy 06/0 03/201404/17/2018 Lumbar radiculopathy 12/13/2013 04/17/2018 Primary localized osteoarthrosis, lower leg 01/0 03/201404/29/2015 Knee 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 11/04/2013 04/29/2015 Perforated diverticulum of large intestine 08/2010/27/2012 Sciatica 06/21/2012 04/29/2015 Diverticulitis 01/09/2014 documented as of this encounter (statuses as of 11/11/2022) [facility] History of Past illness Narrative* Problem Noted Date Resolved Date Essential hypertension 11/10/2016 7 Tobacco abuse 11/06/2015 11/15/2016 Lumbar disc displacement without myelopathy 06/0 03/201404/17/2018 Lumbar radiculopathy 12/13/2013 04/17/2018 Primary localized osteoarthrosis, lower leg 01/0 03/201404/29/2015 Knee 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 11/04/2013 04/29/2015 Perforated diverticulum of large intestine 08/2010/27/2012 Sciatica 06/21/2012 04/29/2015 Diverticulitis 01/09/2014 documented as of this encounter (statuses as of 11/22/2022) [facility] History of Past illness Narrative* Problem Noted Date Resolved Date Essential hypertension 11/10/2016 7 Tobacco abuse 11/06/2015 11/15/2016 Lumbar disc displacement without myelopathy 06/0 03/201404/17/2018 Lumbar radiculopathy 12/13/2013 04/17/2018 Primary localized osteoarthrosis, lower leg 01/0 03/201404/29/2015 Knee 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 11/04/2013 04/29/2015 Perforated diverticulum of large intestine 08/2010/27/2012 Sciatica 06/21/2012 04/29/2015 Diverticulitis 01/09/2014 documented as of this encounter (statuses as of 12/06/2022) [facility] History of Past illness Narrative* Problem Noted Date Resolved Date Essential hypertension 11/10/2016 7 Tobacco abuse 11/06/2015 11/15/2016 Lumbar disc displacement without myelopathy 06/0 03/201404/17/2018 Lumbar radiculopathy 12/13/2013 04/17/2018 Primary localized osteoarthrosis, lower leg 01/0 03/201404/29/2015 Knee 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 11/04/2013 04/29/2015 Perforated diverticulum of large intestine 08/2010/27/2012 Sciatica 06/21/2012 04/29/2015 Diverticulitis 01/09/2014 documented as of this encounter (statuses as of 12/13/2022) [facility] History of Past illness Narrative* Problem Noted Date Resolved Date Essential hypertension 11/10/2016 7 Tobacco abuse 11/06/2015 11/15/2016 Lumbar disc displacement without myelopathy 06/0 03/201404/17/2018 Lumbar radiculopathy 12/13/2013 04/17/2018 Primary localized osteoarthrosis, lower leg /0 03/201404/29/2015 Knee 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 11/04/2013 04/29/2015 Perforated diverticulum of large intestine 08/2010/27/2012 Sciatica 06/21/2012 04/29/2015 Diverticulitis 01/09/2014 documented as of this encounter (statuses as of 01/19/2023) [facility] History of Past illness Narrative* Problem Noted Date Resolved Date Essential hypertension 11/10/2016 7 Tobacco abuse 11/06/2015 11/15/2016 Lumbar disc displacement without myelopathy 03/201404/17/2018 Lumbar radiculopathy 12/13/2013 04/17/2018 Primary localized osteoarthrosis, lower leg 03/201404/29/2015 Knee 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 11/04/2013 04/29/2015 Perforated diverticulum of large intestine 08/2010/27/2012 Sciatica 06/21/2012 04/29/2015 Diverticulitis 01/09/2014 documented as of this encounter (statuses as of 01/31/2023) [facility] History of Past illness Narrative* Problem Noted Date Diagnosed Date Resolved Date Essential hypertension 11/10/201611/15 Tobacco abuse 11/06/2015 11/15/2016 Lumbar disc displacement without myelopathy 04/04/2014 04/17/2018 Lumbar radiculopathy 12/13/2013 018 Primary localized osteoarthrosis, lower leg 11/04/2013 04/29/2015 Knee 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 11/04/2013 04/29/2015 Perforated diverticulum of large intestine 08/20/2012 10/27/2012 Sciatica 06/21/2012 04/29/2015 Diverticulitis 01/09/2014 documented as of this encounter (statuses as of 05/25/2023) [facility] History of Past illness Narrative* Problem Noted Date Diagnosed Date Resolved Date Essential hypertension 11/10/201611/15 Tobacco abuse 11/06/2015 11/15/2016 Lumbar disc displacement without myelopathy 04/04/2014 04/17/2018 Lumbar radiculopathy 12/13/2013 018 Primary localized osteoarthrosis, lower leg 11/04/2013 04/29/2015 Knee 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 11/04/2013 04/29/2015 Perforated diverticulum of large intestine 08/20/2012 10/27/2012 Sciatica 06/21/2012 04/29/2015 Diverticulitis 01/09/2014 documented as of this encounter (statuses as of 05/29/2023) [facility] History of Past illness Narrative* Problem Noted Date Diagnosed Date Resolved Date Essential hypertension 11/10/201611/15 Tobacco abuse 11/06/2015 11/15/2016 Lumbar disc displacement without myelopathy 04/04/2014 04/17/2018 Lumbar radiculopathy 12/13/2013 018 Primary localized osteoarthrosis, lower leg 11/04/2013 04/29/2015 Knee 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 11/04/2013 04/29/2015 Perforated diverticulum of large intestine 08/20/2012 10/27/2012 Sciatica 06/21/2012 04/29/2015 Diverticulitis 01/09/2014 documented as of this encounter (statuses as of 06/07/2023) [facility] History of Past illness Narrative* Problem Noted Date Diagnosed Date Resolved Date Essential hypertension 11/10/201611/15 Tobacco abuse 11/06/2015 11/15/2016 Lumbar disc displacement without myelopathy 04/04/2014 04/17/2018 Lumbar radiculopathy 12/13/2013 018 Primary localized osteoarthrosis, lower leg 11/04/2013 04/29/2015 Knee 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 11/04/2013 04/29/2015 Perforated diverticulum of large intestine 08/20/2012 10/27/2012 Sciatica 06/21/2012 04/29/2015 Diverticulitis 01/09/2014 documented as of this encounter (statuses as of 06/21/2023) [facility] History of Past illness Narrative* Problem Noted Date Diagnosed Date Resolved Date Essential hypertension 11/10/201611/15 Tobacco abuse 11/06/2015 11/15/2016 Lumbar disc displacement without myelopathy 04/04/2014 04/17/2018 Lumbar radiculopathy 12/13/2013 018 Primary localized osteoarthrosis, lower leg 11/04/2013 04/29/2015 Knee 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 11/04/2013 04/29/2015 Perforated diverticulum of large intestine 08/20/2012 10/27/2012 Sciatica 06/21/2012 04/29/2015 Diverticulitis 01/09/2014 documented as of this encounter (statuses as of 07/05/2023) [facility] History of Past illness Narrative* Problem Noted Date Diagnosed Date Resolved Date Essential hypertension 11/10/201611/15 Tobacco abuse 11/06/2015 11/15/2016 Lumbar disc displacement without myelopathy 04/04/2014 04/17/2018 Lumbar radiculopathy 12/13/2013 018 Primary localized osteoarthrosis, lower leg 11/04/2013 04/29/2015 Knee 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 11/04/2013 04/29/2015 Perforated diverticulum of large intestine 08/20/2012 10/27/2012 Sciatica 06/21/2012 04/29/2015 Diverticulitis 01/09/2014 documented as of this encounter (statuses as of 08/25/2023) [facility] History of Past illness Narrative* Problem Noted Date Diagnosed Date Resolved Date Essential hypertension 11/10/201611/15 Tobacco abuse 11/06/2015 11/15/2016 Lumbar disc displacement without myelopathy 04/04/2014 04/17/2018 Lumbar radiculopathy 12/13/2013 018 Primary localized osteoarthrosis, lower leg 11/04/2013 04/29/2015 Knee 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 11/04/2013 04/29/2015 Perforated diverticulum of large intestine 08/20/2012 10/27/2012 Sciatica 06/21/2012 04/29/2015 Diverticulitis 01/09/2014 documented as of this encounter (statuses as of 09/08/2023) [facility] History of Past illness Narrative* Problem Noted Date Diagnosed Date Resolved Date Essential hypertension 11/10/201611/15 Tobacco abuse 11/06/2015 11/15/2016 Lumbar disc displacement without myelopathy 04/04/2014 04/17/2018 Lumbar radiculopathy 12/13/2013 018 Primary localized osteoarthrosis, lower leg 11/04/2013 04/29/2015 Knee 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 11/04/2013 04/29/2015 Perforated diverticulum of large intestine 08/20/2012 10/27/2012 Sciatica 06/21/2012 04/29/2015 Diverticulitis 01/09/2014 documented as of this encounter (statuses as of 10/02/2023) [facility] History of Past illness Narrative* Problem Noted Date Diagnosed Date Resolved Date Essential hypertension 11/10/201611/15 Tobacco abuse 11/06/2015 11/15/2016 Lumbar disc displacement without myelopathy 04/04/2014 04/17/2018 Lumbar radiculopathy 12/13/2013 018 Primary localized osteoarthrosis, lower leg 11/04/2013 04/29/2015 Knee 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 11/04/2013 04/29/2015 Perforated diverticulum of large intestine 08/20/2012 10/27/2012 Sciatica 06/21/2012 04/29/2015 Diverticulitis 01/09/2014 documented as of this encounter (statuses as of 10/03/2023) [facility] History of Past illness Narrative* Problem Noted Date Diagnosed Date Resolved Date Essential hypertension 11/10/201611/15 Tobacco abuse 11/06/2015 11/15/2016 Lumbar disc displacement without myelopathy 04/04/2014 04/17/2018 Lumbar radiculopathy 12/13/2013 018 Primary localized osteoarthrosis, lower leg 11/04/2013 04/29/2015 Knee 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 11/04/2013 04/29/2015 Perforated diverticulum of large intestine 08/20/2012 10/27/2012 Sciatica 06/21/2012 04/29/2015 Diverticulitis 01/09/2014 documented as of this encounter (statuses as of 10/05/2023) [facility] History of Past illness Narrative* Problem Noted Date Diagnosed Date Resolved Date Essential hypertension 11/10/201611/15 Tobacco abuse 11/06/2015 11/15/2016 Lumbar disc displacement without myelopathy 04/04/2014 04/17/2018 Lumbar radiculopathy 12/13/2013 018 Primary localized osteoarthrosis, lower leg 11/04/2013 04/29/2015 Knee 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 11/04/2013 04/29/2015 Perforated diverticulum of large intestine 08/20/2012 10/27/2012 Sciatica 06/21/2012 04/29/2015 Diverticulitis 01/09/2014 documented as of this encounter (statuses as of 12/08/2023) [facility] History of Past illness Narrative* Problem Noted Date Diagnosed Date Resolved Date Essential hypertension 11/10/201611/15 Tobacco abuse 11/06/2015 11/15/2016 Lumbar disc displacement without myelopathy 04/04/2014 04/17/2018 Lumbar radiculopathy 12/13/2013 018 Primary localized osteoarthrosis, lower leg 11/04/2013 04/29/2015 Knee 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 11/04/2013 04/29/2015 Perforated diverticulum of large intestine 08/20/2012 10/27/2012 Sciatica 06/21/2012 04/29/2015 Diverticulitis 01/09/2014 documented as of this encounter (statuses as of 01/23/2024) [facility] Diagnosis Chronic bronchitis, unspecified chronic bronchitis type (HCC) documented [facility] this [facility]* Diagnosis Hyperlipidemia, unspecified hyperlipidemia type- Primary [facility] Diagnosis Primary osteoarthritis of right knee Primary localized osteoarthrosis, lower leg [facility]* Diagnosis Chronic bronchitis, unspecified chronic bronchitis type (HCC) [facility] Diagnosis Chronic bronchitis, unspecified chronic bronchitis type (HCC) [facility]* Diagnosis Essential hypertension Unspecified essential hypertension [facility] Diagnosis Oral candidiases- Primary [facility] Diagnosis Suspected COVID-19 virus infection- Primary [facility] Diagnosis Onset Date Resolution Status [id number] acute Stage 3 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 [facility] Work Phone: Evaluation note* Diagnosis Pleuritic chest pain- Primary Painful respiration [facility]* Diagnosis Cough syncope- Primary Cough Contusion of right chest wall, subsequent encounter Gallstones Calculus of gallbladder without mention of cholecystitis or obstruction documented in this encounter [facility] note* Diagnosis Onset Date Resolution Status [id number] acute 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 Abdominal discomfort chronic [facility] Work Phone: evaluation note* Diagnosis Primary osteoarthritis of right knee- Primary Primary localized osteoarthrosis, lower leg documented in this encounter [facility] note* Diagnosis Chronic bronchitis, unspecified chronic bronchitis type (HCC) documented in this encounter [facility] note* Diagnosis Onset Date Resolution Status [id number] acute 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 Abdominal discomfort chronic Stage 3 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 [facility] Work Phone: evaluation note* Diagnosis Essential hypertension Unspecified essential hypertension documented in this encounter [facility] note* Diagnosis Onset Date Resolution Status Abdominal discomfort chronic Stage 3 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 [facility] Work Phone: evaluation note* Diagnosis Onset Date Resolution Status Abdominal discomfort chronic 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 Abdominal pain acute Constipation acute History of partial colectomy acute Dyspnea acute Hypoxia acute Influenza A acute COPD exacerbation chronic [facility] Work Phone: evaluation note* Diagnosis Onset Date Resolution Status Abdominal discomfort chronic 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 Abdominal pain acute Constipation acute History of partial colectomy acute Hypoxia acute Influenza A acute COPD exacerbation resolved Dyspnea resolved [facility] Work Phone: Evaluation note* Diagnosis Acute pain of right shoulder- Primary Strain of right shoulder, initial encounter documented in this encounter [facility] note* Diagnosis Chronic bronchitis, unspecified chronic bronchitis type (HCC) documented in this encounter [facility] note* Diagnosis Onset Date Resolution Status Abdominal pain acute Constipation acute History of partial colectomy acute Hypoxia acute Influenza A acute COPD exacerbation resolved Dyspnea resolved [place] acute Presence of stent in coronary artery October, acute Solid nodule of lung greater than 8 mm in diameter acute Nocturnal hypoxia chronic 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 S/P laparoscopic cholecystectomy acute [facility] Work Phone: Evaluation note* Diagnosis Primary hypertension- Primary Unspecified essential hypertension Coronary artery disease involving [place] coronary artery of [place] heart without angina pectoris Hyperlipidemia, unspecified hyperlipidemia type Chronic bronchitis, unspecified chronic bronchitis type (HCC) Acute on chronic respiratory failure with hypoxia (HCC) Need for vaccination Need for prophylactic vaccination and inoculation against unspecified single disease [facility] Diagnosis Onset Date Resolution Status Abdominal pain acute Constipation acute History of partial colectomy acute Hypoxia acute Influenza A acute COPD exacerbation resolved Dyspnea resolved [place] acute Presence of stent in coronary artery October, acute Nocturnal hypoxia chronic Solid nodule of lung greater than 8 mm in diameter chronic 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 Presence of stent in coronary artery October, acute Syncope acute Atherosclerosis of coronary artery of [place] heart without angina pectoris chronic COPD (chronic obstructive pulmonary disease) chronic Hyperlipidemia chronic Postprandial epigastric pain chronic Nocturnal hypoxia chronic Solid nodule of lung greater than 8 mm in diameter chronic 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 [facility] Work Phone: Evaluation note* Diagnosis Onset Date Resolution Status Nocturnal hypoxia chronic Solid nodule of lung greater than 8 mm in diameter chronic 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 Shortness of breath on exertion acute 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 Shortness of breath on exertion acute Atherosclerosis of coronary artery of [place] heart without angina pectoris chronic COPD (chronic obstructive pulmonary disease) chronic Hyperlipidemia chronic 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 Shortness of breath noneacti ve Exocrine pancreatic insufficiency chronic Postprandial epigastric pain chronic [facility] Work Phone: Evaluation note* Diagnosis Medicare annual wellness visit, subsequent- Primary Routine general medical examination at a health care facility Primary hypertension Unspecified essential hypertension Chronic bronchitis, unspecified chronic bronchitis type (HCC) Acute on chronic respiratory failure with hypoxia (HCC) Coronary artery disease involving [place] coronary artery of [place] heart without angina pectoris Gastroesophageal reflux disease, unspecified whether esophagitis present Tobacco use disorder Hyperlipidemia, unspecified hyperlipidemia type [facility] Diagnosis Infected cyst of skin- Primary Sebaceous cyst Skin cyst Sebaceous cyst [facility] Diagnosis Onset Date Resolution Status Shortness of breath on exertion acute 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 Shortness of breath on exertion acute Atherosclerosis of coronary artery of [place] heart without angina pectoris chronic COPD (chronic obstructive pulmonary disease) chronic Hyperlipidemia chronic 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 Shortness of breath noneacti ve Exocrine pancreatic insufficiency chronic Postprandial epigastric pain [facility] Work Phone: Evaluation note* Diagnosis Chronic bronchitis, unspecified chronic bronchitis type (HCC) [facility] Diagnosis Onset Date Resolution Status Exocrine pancreatic insufficiency chronic Postprandial epigastric pain chronic Shortness of breath on exertion acute Atherosclerosis of coronary artery of [place] heart without angina pectoris chronic COPD (chronic obstructive pulmonary disease) chronic Hyperlipidemia chronic Acute upper respiratory infection acute 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 Nocturnal hypoxia chronic Smoking greater than 30 pack years chronic 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 Tachycardia acute TIA (transient ischemic attack) acute Atherosclerosis of coronary artery of [place] heart without angina pectoris chronic COPD (chronic obstructive pulmonary disease) chronic Hyperlipidemia [facility] Work Phone: Evaluation note* Diagnosis Onset Date Resolution Status Shortness of breath on exertion acute Atherosclerosis of coronary artery of [place] heart without angina pectoris chronic COPD (chronic obstructive pulmonary disease) chronic Hyperlipidemia chronic Acute upper respiratory infection acute 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 Nocturnal hypoxia chronic Smoking greater than 30 pack years chronic 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 Tachycardia acute TIA (transient ischemic attack) acute Atherosclerosis of coronary artery of [place] heart without angina pectoris chronic COPD (chronic obstructive pulmonary disease) chronic Hyperlipidemia [facility] Work Phone: Evaluation note* Diagnosis Chronic bronchitis, unspecified chronic bronchitis type (HCC) [facility]* Diagnosis Gastroesophageal reflux disease, unspecified whether esophagitis present [facility]* Diagnosis Chronic bronchitis, unspecified chronic bronchitis type (HCC)- Primary documented in this encounter [facility] note* Diagnosis Onset Date Resolution Status ALMONTE (dyspnea on exertion) ac sycuan Atherosclerosis of coronary artery of [place] heart without angina pectoris chronic Hyperlipidemia chronic Nocturnal hypoxia chronic Smoking greater than 30 pack years chronic Stage 3 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 [facility] Work Phone: Evaluation note* Diagnosis Gastroesophageal reflux disease, unspecified whether esophagitis present [facility]* Diagnosis Essential hypertension Unspecified essential hypertension documented in this encounter [facility] note* Diagnosis Chronic bronchitis, unspecified chronic bronchitis type (HCC) Gastroesophageal reflux disease, unspecified whether esophagitis present [facility] Diagnosis Medicare annual wellness visit, subsequent- Primary Routine general medical examination at a health care facility Coronary artery disease involving [place] coronary artery of [place] heart without angina pectoris Hyperlipidemia, unspecified hyperlipidemia type Chronic bronchitis, unspecified chronic bronchitis type (HCC) Primary hypertension Unspecified essential hypertension Screening for depression Encounter for screening examination for other mental health and behavioral disorders Gastroesophageal reflux disease, unspecified whether esophagitis present Achilles tendinitis of both lower extremities Acute on chronic respiratory failure with hypoxia (HCC) [facility]* Diagnosis Chronic bronchitis, unspecified chronic bronchitis type (HCC) [facility]* Diagnosis SOB (shortness of breath) Shortness of breath [facility]* Diagnosis Chronic bronchitis, unspecified chronic bronchitis type (HCC) documented [facility] this [facility]* Diagnosis Chronic bronchitis, unspecified chronic bronchitis type (HCC) [facility] Diagnosis Acute pain of right shoulder [facility] Diagnosis Achilles tendinitis of both lower extremities [facility] Diagnosis Acute right-sided low back pain without sciatica [facility] Diagnosis Chest wall pain- Primary Painful respiration Chronic bronchitis, unspecified chronic bronchitis type (HCC) Hyperlipidemia, unspecified hyperlipidemia type Impaired glucose metabolism Impaired glucose tolerance test [facility] Diagnosis Respiratory infection- Primary Other diseases of respiratory system, not elsewhere classified Thrush Candidiasis of mouth [facility] Diagnosis Subacute cough- Primary Cough COPD with exacerbation (HCC) Obstructive chronic bronchitis with exacerbation Subacute cough Cough [facility] Diagnosis Subacute cough Cough [facility] Diagnosis COPD with exacerbation (HCC)- Primary Obstructive chronic bronchitis with exacerbation Coronary artery disease involving [place] coronary artery of [place] heart without angina pectoris [facility] Diagnosis Tobacco abuse Tobacco use disorder [facility] Diagnosis Dyspnea, unspecified type- Primary Coronary artery disease involving [place] coronary artery of [place] heart without angina pectoris COPD (chronic obstructive pulmonary disease) with chronic bronchitis (HCC) Obstructive chronic bronchitis without exacerbation Sinus tachycardia Other specified cardiac dysrhythmias [facility]* Diagnosis COPD (chronic obstructive pulmonary disease) with chronic bronchitis (HCC)- Primary Obstructive chronic bronchitis without exacerbation Acute on chronic respiratory failure with hypoxia (HCC) Nodule of lower lobe of left lung (low dose lung CT) documented [facility] this [facility]* Diagnosis COPD (chronic obstructive pulmonary disease) with chronic bronchitis (HCC)- Primary Obstructive chronic bronchitis without exacerbation Acute on chronic respiratory failure with hypoxia (HCC) Tobacco use disorder Coronary artery disease involving [place] coronary artery of [place] heart without angina pectoris Kidney insufficiency Unspecified disorder of kidney and ureter [facility] this [facility] Diagnosis Tobacco use disorder documented [facility] this [facility]* Diagnosis Medicare annual wellness visit, subsequent- Primary Routine general medical examination at a health care facility Coronary artery disease involving [place] coronary artery of [place] heart without angina pectoris Hyperlipidemia, unspecified hyperlipidemia type Primary hypertension Unspecified essential hypertension Screening for depression Encounter for screening examination for other mental health and behavioral disorders Tobacco use disorder COPD (chronic obstructive pulmonary disease) with chronic bronchitis (HCC) Obstructive chronic bronchitis without exacerbation Dupuytren's contracture of right hand Contracture of palmar fascia Acute on chronic respiratory failure with hypoxia (HCC) Nodule of lower lobe of left lung (low dose lung CT) Other eczema documented in this encounter [facility] for referral (narrative)* Diagnostic Procedure Only (Routine) - Closed Specialty Diagnoses / Procedures Referred By Domingo main Referred To Contact XR IMAGING Diagnoses Acute pain of right shoulder Procedures XR SHOULDER GENERAL 3V OR MORE AP/TRUE AP/OTHER RIGHT RADEX SHOULDER COMPLETE MINIMUM 2 VIEWS [facility] [address] [place] [address] [place] [address] Referral ID Status Reason Start Date Expiration Date V isits Requested Visits Authorized [id number] Closed Auto-Generate d Referral 11/22/2022 12/22/2023 1 1 IS [facility] for referral (narrative)* Outpatient Procedure (Routine) - New Request Specialty Diagnoses / Procedures Referred By Domingo main Referred To [facility] Diagnoses Coronary artery disease involving [place] coronary artery of [place] heart without angina pectoris Procedures ECG COMPLETE ECG ROUTINE ECG W/LEAST 12 LDS W/I&R George Vázquez MD [address] [place] [address] [facility] [address] [place] [address] Referral ID Status Reason Start Date Expiration Date Visits Requested Visits Authorized [id number] New Request Auto-Generat ed Referral 09/12/2025 1 1 [facility])No reason for referral information [facility] Work [facility]: Reason for visit Narrative* Diagnostic Procedure Only (Urgent) - Closed Specialty Diagnoses / Procedures Referred By Contac t Referred To Contact XR IMAGING Diagnoses Acute pain of right shoulder Procedures XR SHOULDER [id number] AP/TRUE AP RIGHT RADEX SHOULDER COMPLETE MINIMUM 2 VIEWS [facility] [address] [place] [address] [place] [address] Referral ID Status Reason Start Date Expiration Date V isits Requested Visits Authorized [id number] Closed Auto-Generate d Referral 11/22/2022 12/22/2023 1 1 [facility] Summary Purpose Family History No Family History Records Found Relationship Condition Age at Onset Recorded Date/T eric father Coronary artery disease Unknown Relationship Condition Age at Onset Recorded Date/T eric father Coronary artery disease Unknown brother Hypertension Unknown grandfather Malignant neoplasm of pancreas Unknown grandmother Cardiac disease Unknown Advance Directives No Advanced Directives Records FoundDocuments on File Type Date Recorded 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 Advance Directive(s) 11/12/2021 6:29 AM Advance Directive(s) 11/10/2021 11:35 AM Advance Directive(s) 06/22/2021 11:50 AM Advance Directive(s) 06/02/2021 1:37 PM Advance Directive(s) 03/23/2021 11:11 AM Advance Directive(s) 03/18/2021 12:59 PM Advance Directive(s) 12/17/2020 12:16 PM Advance Directive(s) 11/19/2020 12:14 PM Advance Directive(s) 10/16/2020 1:43 PM Advance Directive Response Recorded Date/ Time Advance Directives Yes September 29, 2021 8:36am Living Will No November 22 3:45pm Power of Rn Mental Health No November 22, 2021 3:45pm Advance Directive Response Recorded Date/ Time Name of Medical Power of Rn Mental Health AL[place] AND DI TIERA July 13, 2022 5:08pm Advance Directives Yes September 29, 2021 8:36am Living Will Yes July 13, 2022 5:08pm Power of Rn Mental Health Yes June 5:08pm Advance Directive Response Recorded Date/ Time Name of Medical Power of Rn Mental Health [place] AND DI TIERA July 13, 2022 4:08pm Advance Directives Yes September 29, 2021 7:36am Living Will Yes July 13, 2022 4:08pm Power of Rn Mental Health Yes June 4:08pm Advance Directive Response Recorded Date/ Time Name of Medical Power of Rn Mental Health [place] AND DI TIERA July 13, 2022 4:08pm Name of Medical Power of Rn Mental Health [place] October 28, 2022 2:38am Advance Directives Yes September 29, 2021 7:36am Living Will Yes October 28, 022 2:38am Power of Rn Mental Health Yes October 28, 2022 2:38am Advance Directive Response Recorded Date/ Time Name of Medical Power of Rn Mental Health [place] AND DI TIERA July 13, 2022 4:08pm Name of Medical Power of Rn Mental Health stephanie matos October 28, 2022 4:55am Advance Directives Yes September 29, 2021 7:36am Living Will No October 28, 022 4:55am Power of Rn Mental Health Yes October 28, 2022 4:55am Advance Directive Response Recorded Date/ Time Name of Medical Power of Rn Mental Health stephanie matos October 28, 2022 4:55am Name of Medical Power of Rn Mental Health DAUGHTER November 24, 2022 9:18am Advance Directives Yes September 29, 2021 7:36am Living Will Yes November 24 9:18am Power of Rn Mental Health Yes November 24, 2022 9:18am Advance Directive Response Recorded Date/ Time Name of Medical Power of Rn Mental Health ANALY MATOS December 26, 2022 12:30pm Advance Directives Yes September 29, 2021 8:36am Living Will Yes December 26 12:30pm Power of Rn Mental Health Yes December 26, 2022 12:30pm Name of Medical Power of Rn Mental Health stephanie matos October 28, 2022 5:55am Name of Medical Power of Rn Mental Health DAUGHTER November 24, 2022 10:18am Advance Directive Response Recorded Date/ Time Name of Medical Power of Rn Mental Health ANALY MATOS December 26, 2022 12:30pm Advance Directives Yes September 29, 2021 8:36am Living Will No March 17, 2023 4 :37pm Power of Rn Mental Health No March 17, 2023 4:37pm Advance Directive Response Recorded Date/ Time Advance Directives Yes September 29, 2021 8:36am Living Will No March 17, 2023 4 :37pm Power of Rn Mental Health No March 17, 2023 4:37pm Advance Directive Response Recorded Date/ Time Advance Directives Yes September 29, 2021 7:36am Living Will No March 17, 2023 3 :37pm Power of Rn Mental Health No March 17, 2023 3:37pm Advance Directive Response Recorded Date/ Time Living Will No March 17, 2023 4 :37pm Power of Rn Mental Health No March 17, 2023 4:37pm Living Will No September 17 5:14pm Power of Rn Mental Health Yes September 17, 2024 5:14pm Name of Medical Power of Rn Mental Health alka [facility] September 17, 2024 5:14pm Living Will No October 27 024 5:50pm Power of Rn Mental Health Yes October 27, 2024 5:50pm Name of Medical Power of Rn Mental Health Stephanie Matos October 27, 2024 5:50pm Advance Directives Yes September 29, 2021 8:36am Advance Directive Response Recorded Date/ Time Living Will No March 17, 2023 4 :37pm Do you have a Healthcare Power of Rn Mental Health? No March 17, 2023 4:37pm Living Will No October 27 5:50pm Do you have a Healthcare Power of Rn Mental Health? Yes Gaurav 29th, 2024 5:50pm Name of Medical Power of Rn Mental Health Stephanie Matos October 27, 2024 5:50pm Advance Directives Yes September 29, 2021 8:36am Advance Directive Response Recorded Date/ Time Advance Directives Yes September 29, 2021 8:36am Chief Complaint and Reason for Visit Chief Complaint CP, DYSPNEA W/EXERTI ON, CAD, DABG, HTN, HLD 1 y fu 6 wk fu PCI w/coronary stenting PCI w/cardiac stenting PCI w/cardiac stenting SOLID NODULE GREATER THAN 8 MM IN DIAMETER PCI w/cardiac stenting Reason for Visit Presence of stent in coronary artery Atherosclerosis of coronary artery bypass graft without angina pectoris Atherosclerosis of coronary artery of [place] heart without angina pectoris COPD (chronic obstructive pulmonary disease) Hyperlipidemia Hypertension Presence of stent in coronary artery Atherosclerosis of coronary artery bypass graft without angina pectoris Atherosclerosis of coronary artery of [place] heart without angina pectoris COPD (chronic obstructive pulmonary disease) Hyperlipidemia Hypertension Chief Complaint 6 wk fu PCI w/coronary stenting PCI w/cardiac stenting PCI w/cardiac stenting SOLID NODULE GREATER THAN 8 MM IN DIAMETER PCI w/cardiac stenting 6 M FU 3 M FU PCI w/cardiac stenting Reason for Visit Presence of stent in coronary artery Atherosclerosis of coronary artery bypass graft without angina pectoris Atherosclerosis of coronary artery of [place] heart without angina pectoris COPD (chronic obstructive pulmonary disease) Hyperlipidemia Hypertension Nocturnal hypoxia Smoking greater than 30 pack years Stage 3 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 Presence of stent in coronary artery Atherosclerosis of coronary artery bypass graft without angina pectoris Atherosclerosis of coronary artery of [place] heart without angina pectoris COPD (chronic obstructive pulmonary disease) Hyperlipidemia Hypertension Chief Complaint 3 M FU PCI w/cardiac stenting PCI w/cardiac stenting ACUTE/SOB POOR BALANCE/LE WKNESS/RX HERE NODULE Reason for Visit Presence of stent in coronary artery Atherosclerosis of coronary artery bypass graft without angina pectoris Atherosclerosis of coronary artery of [place] heart without angina pectoris COPD (chronic obstructive pulmonary disease) Hyperlipidemia Hypertension [id number] Stage 3 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 Chief Complaint ACUTE/SOB NODULE POOR BALANCE/LE WKNESS/RX HERE RIB PAIN WITH BREATHING/MOVEMENT Reason for Visit [id number] Stage 3 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 Chief Complaint ACUTE/SOB NODULE RIB PAIN WITH BREATHING/MOVEMENT POOR BALANCE/LE WKNESS/RX HERE Consult E-ORDER Reason for Visit [id number] Stage 3 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 Abdominal discomfort Chief Complaint ACUTE/SOB NODULE RIB PAIN WITH BREATHING/MOVEMENT Consult E-ORDER 6 M FU GASTROPARESIS POOR BALANCE/LE WKNESS/RX HERE Reason for Visit [id number] Stage 3 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 Abdominal discomfort Stage 3 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 Chief Complaint RIB PAIN WITH BREATH ING/MOVEMENT Consult E-ORDER 6 M FU GASTROPARESIS POOR BALANCE/LE WKNESS/RX HERE Reason for Visit Abdominal discomfort Stage 3 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 Chief Complaint RIB PAIN WITH BREATH ING/MOVEMENT Consult E-ORDER 6 M FU GASTROPARESIS POOR BALANCE/LE WKNESS/RX HERE 3 M FU Cough COPD EXACERBATION Reason for Visit Abdominal discomfort Stage 3 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 Abdominal pain Constipation History of partial colectomy Dyspnea Hypoxia Influenza A COPD exacerbation Chief Complaint RIB PAIN WITH BREATH ING/MOVEMENT Consult E-ORDER 6 M FU GASTROPARESIS POOR BALANCE/LE WKNESS/RX HERE 3 M FU Cough COPD EXACERBATION COPD EXACERBATION COPD EXACERBATION Reason for Visit Abdominal discomfort Stage 3 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 Abdominal pain Constipation History of partial colectomy Dyspnea Hypoxia Influenza A COPD exacerbation Chief Complaint RIB PAIN WITH BREATH ING/MOVEMENT Consult E-ORDER 6 M FU GASTROPARESIS POOR BALANCE/LE WKNESS/RX HERE 3 M FU Cough COPD EXACERBATION COPD EXACERBATION COPD EXACERBATION Reason for Visit Abdominal discomfort Stage 3 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 Abdominal pain Constipation History of partial colectomy Hypoxia Influenza A COPD exacerbation Dyspnea Chief Complaint RIB PAIN WITH BREATH ING/MOVEMENT Consult E-ORDER 6 M FU GASTROPARESIS POOR BALANCE/LE WKNESS/RX HERE 3 M FU Cough COPD EXACERBATION COPD EXACERBATION COPD EXACERBATION ABDOMINAL PAIN Reason for Visit Abdominal discomfort Stage 3 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 Abdominal pain Constipation History of partial colectomy Hypoxia Influenza A COPD exacerbation Dyspnea Chief Complaint GASTROPARESIS POOR BALANCE/LE WKNESS/RX HERE 3 M FU Cough COPD EXACERBATION COPD EXACERBATION COPD EXACERBATION ABDOMINAL PAIN ABDOMINAL PAIN GALLBLADDER PREOP Hospital FU LAP DAVID W IOC LAP DAVID W IOC POST OP Solitary pulmonary nodule LAP DAVID 2/3 Reason for Visit Abdominal pain Constipation History of partial colectomy Hypoxia Influenza A COPD exacerbation Dyspnea [place] Presence of stent in coronary artery Solid nodule of lung greater than 8 mm in diameter Nocturnal hypoxia Stage 3 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 S/P laparoscopic cholecystectomy Chief Complaint 3 M FU Cough COPD EXACERBATION COPD EXACERBATION COPD EXACERBATION ABDOMINAL PAIN ABDOMINAL PAIN GALLBLADDER PREOP Hospital FU LAP DAVID W IOC LAP DAVID W IOC POST OP Solitary pulmonary nodule LAP DAVID 2/3 1 Y FU 2 WK FU INT LABS/PAPER ORDER STOOL SAMPLE 6 M FU Reason for Visit Abdominal pain Constipation History of partial colectomy Hypoxia Influenza A COPD exacerbation Dyspnea [place] Presence of stent in coronary artery Nocturnal hypoxia Solid nodule of lung greater than 8 mm in diameter Stage 3 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 Presence of stent in coronary artery Syncope Atherosclerosis of coronary artery of [place] heart without angina pectoris COPD (chronic obstructive pulmonary disease) Hyperlipidemia Postprandial epigastric pain Nocturnal hypoxia Solid nodule of lung greater than 8 mm in diameter Stage 3 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 Chief Complaint Solitary pulmonary n odule LAP DAVID 2/3 1 Y FU 2 WK FU INT LABS/PAPER ORDER STOOL SAMPLE 6 M FU follow up SOB POOR BALANCE/LE WKNESS/RX HERE Reason for Visit Presence of stent in coronary artery Syncope Atherosclerosis of coronary artery of [place] heart without angina pectoris COPD (chronic obstructive pulmonary disease) Hyperlipidemia Postprandial epigastric pain Nocturnal hypoxia Solid nodule of lung greater than 8 mm in diameter Stage 3 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 Shortness of breath on exertion Stage 3 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 Chief Complaint INT LABS/PAPER ORDER STOOL SAMPLE 6 M FU follow up SOB POOR BALANCE/LE WKNESS/RX HERE [facility] 03/17 ER// SOB AND IRREGULAR HEART BEAT Shortness of breath 3 MO FU CHRONIC OBSTRUCTIVE PULMONARY DISEASE CHRONIC OBSTRUCTIVE PULMONARY DISEASE Reason for Visit Nocturnal hypoxia Solid nodule of lung greater than 8 mm in diameter Stage 3 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 Shortness of breath on exertion Stage 3 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 Shortness of breath on exertion Atherosclerosis of coronary artery of [place] heart without angina pectoris COPD (chronic obstructive pulmonary disease) Hyperlipidemia Stage 3 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 Shortness of breath Exocrine pancreatic insufficiency Postprandial epigastric pain Chief Complaint 6 M FU follow up SOB POOR BALANCE/LE WKNESS/RX HERE [facility] 03/17 ER// SOB AND IRREGULAR HEART BEAT Shortness of breath 3 MO FU CHRONIC OBSTRUCTIVE PULMONARY DISEASE CHRONIC OBSTRUCTIVE PULMONARY DISEASE Shortness of breath Shortness of breath Reason for Visit Nocturnal hypoxia Solid nodule of lung greater than 8 mm in diameter Stage 3 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 Shortness of breath on exertion Stage 3 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 Shortness of breath on exertion Atherosclerosis of coronary artery of [place] heart without angina pectoris COPD (chronic obstructive pulmonary disease) Hyperlipidemia Stage 3 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 Shortness of breath Exocrine pancreatic insufficiency Postprandial epigastric pain Chief Complaint follow up SOB POOR BALANCE/LE WKNESS/RX HERE [facility] 5/19 ER// SOB AND IRREGULAR HEART BEAT Shortness of breath 3 MO FU CHRONIC OBSTRUCTIVE PULMONARY DISEASE CHRONIC OBSTRUCTIVE PULMONARY DISEASE Shortness of breath Shortness of breath FOLLOW MASS Reason for Visit Shortness of breath on exertion Stage 3 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 Shortness of breath on exertion Atherosclerosis of coronary artery of [place] heart without angina pectoris COPD (chronic obstructive pulmonary disease) Hyperlipidemia Stage 3 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 Shortness of breath Exocrine pancreatic insufficiency Postprandial epigastric pain Chief Complaint 3 MO FU CHRONIC OBSTRUCTIVE PULMONARY DISEASE CHRONIC OBSTRUCTIVE PULMONARY DISEASE Shortness of breath Shortness of breath FOLLOW MASS 6 M FU COUGH, CONGESTED 5 m fu 2 ORDERING- E ORDERS 4 M FU TIA Reason for Visit Exocrine pancreatic insufficiency Postprandial epigastric pain Shortness of breath on exertion Atherosclerosis of coronary artery of [place] heart without angina pectoris COPD (chronic obstructive pulmonary disease) Hyperlipidemia Acute upper respiratory infection Stage 3 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 Nocturnal hypoxia Smoking greater than 30 pack years Stage 3 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 Tachycardia TIA (transient ischemic attack) Atherosclerosis of coronary artery of [place] heart without angina pectoris COPD (chronic obstructive pulmonary disease) Hyperlipidemia Chief Complaint 3 MO FU CHRONIC OBSTRUCTIVE PULMONARY DISEASE CHRONIC OBSTRUCTIVE PULMONARY DISEASE Shortness of breath Shortness of breath FOLLOW MASS 6 M FU COUGH, CONGESTED 5 m fu 2 ORDERING- E ORDERS 4 M FU TIA INT LABSPEC Reason for Visit Exocrine pancreatic insufficiency Postprandial epigastric pain Shortness of breath on exertion Atherosclerosis of coronary artery of [place] heart without angina pectoris COPD (chronic obstructive pulmonary disease) Hyperlipidemia Acute upper respiratory infection Stage 3 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 Nocturnal hypoxia Smoking greater than 30 pack years Stage 3 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 Tachycardia TIA (transient ischemic attack) Atherosclerosis of coronary artery of [place] heart without angina pectoris COPD (chronic obstructive pulmonary disease) Hyperlipidemia Chief Complaint CHRONIC OBSTRUCTIVE PULMONARY DISEASE CHRONIC OBSTRUCTIVE PULMONARY DISEASE Shortness of breath Shortness of breath FOLLOW MASS 6 M FU COUGH, CONGESTED 5 m fu 2 ORDERING- E ORDERS 4 M FU TIA INT LABSPEC Tachycardia, unspecified Reason for Visit Shortness of breath on exertion Atherosclerosis of coronary artery of [place] heart without angina pectoris COPD (chronic obstructive pulmonary disease) Hyperlipidemia Acute upper respiratory infection Stage 3 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 Nocturnal hypoxia Smoking greater than 30 pack years Stage 3 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 Tachycardia TIA (transient ischemic attack) Atherosclerosis of coronary artery of [place] heart without angina pectoris COPD (chronic obstructive pulmonary disease) Hyperlipidemia Chief Complaint Tachycardia, unspeci fied 3 M FU 3 M FU ALMONTE Reason for Visit ALMONTE (dyspnea on exer tion) Atherosclerosis of coronary artery of [place] heart without angina pectoris Hyperlipidemia Nocturnal hypoxia Smoking greater than 30 pack years Stage 3 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 Chief Complaint Admit Date SOB September 17, 2024 3:52pm Syncope October 27, 2024 2:15pm SYNCOPE October 27, 2024 2:17pm Syncope October 28, 2024 4:43pm COPD November 05, 2024 8: 26am 6 M FU November 05, 2024 12 :55pm COPD November 06, 2024 10 :09am COPD November 11, 2024 1 :00pm SINUS TACHYCARDIA November 26, 2024 7 :08am SINUS TACHYCARDIA November 26, 2024 7 :33am SOB, HYPOXIA, TACHYCARDIA November 27, 2024 1:41pm BP check and EKG: see clinicals. Norma Ernandez [facility] [place] 2024 9:53am 2 M FU January 08, 2025 10: 35am EORDERS January 08, 2025 10: 45am Reason for Visit Admit Date Acute kidney insufficiency September 2:17pm Forehead laceration October 27, 2024 2:17pm Sinus tachycardia October 27, 2024 2:17pm Syncope October 27, 2024 2:17pm Atherosclerosis of coronary artery of [place] heart without angina pectoris October 27, 2024 2:17pm Syncope November 05, 2024 12 :55pm Tachycardia November 05, 2024 12 :55pm Atherosclerosis of coronary artery bypass graft without angina pectoris November 05, 2024 12:55pm Hyperlipidemia November 05, 2024 12 :55pm Stage 3 severe COPD by GOLD classificati on November 05, 2024 12:55pm Cough productive of purulent sputum [place] 2024 10:35am Essential hypertension January 08, 2025 10:35am Leg edema January 08, 2025 10: 35am Atherosclerosis of coronary artery bypass graft without angina pectoris January 08, 2025 10:35am Chief Complaint Admit Date Syncope October 27, 2024 2:15pm SYNCOPE October 27, 2024 2:17pm Syncope October 28, 2024 4:43pm COPD November 05, 2024 8: 26am 6 M FU November 05, 2024 12 :55pm COPD November 06, 2024 10 :09am COPD November 11, 2024 1 :00pm SINUS TACHYCARDIA November 26, 2024 7 :08am SINUS TACHYCARDIA November 26, 2024 7 :33am SOB, HYPOXIA, TACHYCARDIA November 27, 2024 1:41pm BP check and EKG: see clinicalsTianna Green Ma [facility] [place] 2024 9:53am 2 M FU January 08, 2025 10: 35am EORDERS January 08, 2025 10: 45am 1 WK FU PER MH January 20, 2025 2:4 2pm ASCVD FATIGUE February 05, 2025 9:48 am Reason for Visit Admit Date Acute kidney insufficiency September 2:17pm Forehead laceration October 27, 2024 2:17pm Sinus tachycardia October 27, 2024 2:17pm Syncope October 27, 2024 2:17pm Atherosclerosis of coronary artery of [place] heart without angina pectoris October 27, 2024 2:17pm Syncope November 05, 2024 12 :55pm Tachycardia November 05, 2024 12 :55pm Atherosclerosis of coronary artery bypass graft without angina pectoris November 05, 2024 12:55pm Hyperlipidemia November 05, 2024 12 :55pm Stage 3 severe COPD by GOLD classificati on November 05, 2024 12:55pm Cough productive of purulent sputum [place] 2024 10:35am Essential hypertension January 08, 2025 10:35am Leg edema January 08, 2025 10: 35am Atherosclerosis of coronary artery bypass graft without angina pectoris January 08, 2025 10:35am Atherosclerosis of coronary artery January 20, 2025 2:42pm ALMONTE (dyspnea on exertion) January 20 2:42pm Essential hypertension January 20, 2025 2:42pm Presence of stent in coronary artery [facility] 2024 2:42pm Atherosclerosis of coronary artery bypass graft without angina pectoris January 20, 2025 2:42pm COPD (chronic obstructive pulmonary dise ase) January 20, 2025 2:42pm Hyperlipidemia January 20, 2025 2:4 2pm Nicotine dependence January 20, 2025 2:4 2pm Smoking greater than 30 pack years January 20, 2025 2:42pm MIKE (obstructive sleep apnea) December 2:42pm Chief Complaint Admit Date BP check and EKG: see clinicalsTianna Green Ma [facility] [place] 2024 9:53am 2 M FU January 08, 2025 10: 35am EORDERS January 08, 2025 10: 45am 1 WK FU PER MH January 20, 2025 2:4 2pm ASCVD FATIGUE February 05, 2025 9:48 am EORDER May 03, 2025 8:54a m 6 M FU May 05, 2025 12:55 pm Reason for Visit Admit Date Cough productive of purulent sputum [place] h 2024 10:35am Essential hypertension January 08, 2025 10:35am Leg edema January 08, 2025 10: 35am Atherosclerosis of coronary artery bypass graft without angina pectoris January 08, 2025 10:35am Atherosclerosis of coronary artery January 20, 2025 2:42pm ALMONTE (dyspnea on exertion) January 20 2:42pm Essential hypertension January 20, 2025 2:42pm Presence of stent in coronary artery Mar 2024 2:42pm Atherosclerosis of coronary artery bypass graft without angina pectoris January 20, 2025 2:42pm COPD (chronic obstructive pulmonary dise ase) January 20, 2025 2:42pm Hyperlipidemia January 20, 2025 2:4 2pm Nicotine dependence January 20, 2025 2:4 2pm Smoking greater than 30 pack years January 20, 2025 2:42pm MIKE (obstructive sleep apnea) December 2:42pm ALMONTE (dyspnea on exertion) May 05, 2025 12:55pm Essential hypertension May 05, 2025 12 :55pm Presence of stent in coronary artery [place] 2024 12:55pm Thrush, oral May 05, 2025 12:55 pm Atherosclerosis of coronary artery bypass graft without angina pectoris May 05, 2025 12:55pm COPD (chronic obstructive pulmonary dise ase) May 05, 2025 12:55pm Hyperlipidemia May 05, 2025 12:55 pm Nicotine dependence May 05, 2025 12:55 pm Smoking greater than 30 pack years May 05, 2025 12:55pm MIKE (obstructive sleep apnea) May 05, 2025 12:55pm Reason for Visit Admit Date Cough productive of purulent sputum [place] h 2024 10:35am Essential hypertension January 08, 2025 10:35am Leg edema January 08, 2025 10: 35am Atherosclerosis of coronary artery bypass graft without angina pectoris January 08, 2025 10:35am Atherosclerosis of coronary artery January 20, 2025 2:42pm ALMONTE (dyspnea on exertion) January 20 2:42pm Essential hypertension January 20, 2025 2:42pm Presence of stent in coronary artery Mar 2024 2:42pm Atherosclerosis of coronary artery bypass graft without angina pectoris January 20, 2025 2:42pm COPD (chronic obstructive pulmonary dise ase) January 20, 2025 2:42pm Hyperlipidemia January 20, 2025 2:4 2pm Nicotine dependence January 20, 2025 2:4 2pm Smoking greater than 30 pack years January 20, 2025 2:42pm MIKE (obstructive sleep apnea) December 2:42pm ALMONTE (dyspnea on exertion) May 05, 2025 12:55pm Essential hypertension May 05, 2025 12 :55pm Presence of stent in coronary artery [place] 2024 12:55pm Thrush, oral May 05, 2025 12:55 pm Atherosclerosis of coronary artery bypass graft without angina pectoris May 05, 2025 12:55pm COPD (chronic obstructive pulmonary dise ase) May 05, 2025 12:55pm Hyperlipidemia May 05, 2025 12:55 pm Smoking greater than 30 pack years May 05, 2025 12:55pm MIKE (obstructive sleep apnea) May 05, 2025 12:55pm Health Concerns Infection Onset Date Last Indicated Resolved Time COVID-19 Rule-Out 07/05/2022 07/05/2022 Infection Onset Date Last Indicated Resolved Time COVID-19 Confirmed 07/05/2022 07/05/2022 Problem Noted Date Diagnosed Date High Risk Chronic Disease Home Monitoring [facility] 03/16/2023 Problem Noted Date Diagnosed Date High Risk Chronic Disease Home Monitoring [facility] 03/16/2023 Problem Noted Date Diagnosed Date High Risk Chronic Disease Home Monitoring [facility] 03/16/2023 Problem Noted Date Diagnosed Date High Risk Chronic Disease Home Monitoring [facility] 03/16/2023 Problem Noted Date Diagnosed Date High Risk Chronic Disease Home Monitoring [facility] 03/16/2023 Problem Noted Date Diagnosed Date High Risk Chronic Disease Home Monitoring [facility] 03/16/2023 Problem Noted Date Diagnosed Date High Risk Chronic Disease Home Monitoring [facility] 03/16/2023 Active Problems Noted Date Diagnosed Date High Risk Chronic Disease Home Monitoring [facility] 03/16/2023 Reason for Referral Specialty Diagnoses / Procedures Referred By Contac t Referred To Contact Orthopedics Diagnoses Strain of right shoulder, initial encounter Procedures CONSULT TO ORTHOPAEDICS OFFICE/OUTPATIENT [facility] MDM 60-[facility] MINUTES [facility] [address] [place] [address] Referral ID Status Reason Start Date Expiration Date Visits Requested Visits Authorized [id number] Authorized PCP Requested Referral 11/22/2022 11/22/2023 1 1 Specialty Diagnoses / Procedures Referred By Contac t Referred To Contact XR IMAGING Diagnoses Acute pain of right shoulder Procedures XR SHOULDER GENERAL 3V OR MORE AP/TRUE AP/OTHER RIGHT RADEX SHOULDER COMPLETE MINIMUM 2 VIEWS [facility] [address] [place] [address] Xr Imaging Referral ID Status Reason Start Date Expiration Date V isits Requested Visits Authorized [id number] Closed Auto-Generate d Referral 11/22/2022 12/22/2023 1 1 Specialty Diagnoses / Procedures Referred By Contac t Referred To Contact XR IMAGING Diagnoses Acute pain of right shoulder Procedures XR SHOULDER [id number] AP/TRUE AP RIGHT RADEX SHOULDER COMPLETE MINIMUM 2 VIEWS [facility] [address] [place] [address] Xr Imaging Referral ID Status Reason Start Date Expiration Date V isits Requested Visits Authorized [id number] Closed Auto-Generate d Referral 11/22/2022 12/22/2023 1 1 Specialty Diagnoses / Procedures Referred By Contac t Referred To Contact Blanca Tilley APRN.CNP [address] [place] [address] Referral ID Status Reason Start Date Expiration Date V isits Requested Visits Authorized [id number] Pending Review 1 1 Specialty Diagnoses / Procedures Referred By Contac t Referred To Contact Diagnoses COPD (chronic obstructive pulmonary disease) with chronic bronchitis (HCC) Acute on chronic respiratory failure with hypoxia (HCC) Nodule of lower lobe of left lung Procedures CONSULT TO PULMONARY MEDICINE George Vázquez MD [address] [place] [address] Referral ID Status Reason Start Date Expiration Date Visits Requested Visits Authorized [id number] Ref Not Required PCP Requested Referral 12/17/2024 1 1 Additional Source Comments (unrecognized sect ion and content) No Status Records FoundNo Status Records FoundNo Status Records FoundNo Status Records Found INFORMATION SOURCE (unrecogn ized section and content) DATE CREATED AUTHOR 01/25/2021 Mio Segura [facility] DATE CREATED AUTHOR AUTHOR'S ORGANIZ ATION 07/30/2022 [place] [facility] DATE CREATED AUTHOR AUTHOR'S ORGANIZ ATION 05/30/2025 [facility] DATE CREATED AUTHOR AUTHOR'S ORGANIZ ATION 06/07/2025 [facility] Source Comments (unrecognize d section and content) In the event this informatio n is protected by the Federal Confidentiality of Alcohol and Drug Abuse Patient Records regulations: The Federal rules restrict any use of the information to criminally investigate or prosecute any alcohol or drug abuse patient.[facility] Center[facility] the event this information is protected by the Federal Confidentiality of Alcohol and Drug Abuse Patient Records regulations: The Federal rules restrict any use of the information to criminally investigate or prosecute any alcohol or drug abuse patient.[facility] CenterIn the event this information is protected by the Federal Confidentiality of Alcohol and Drug Abuse Patient Records regulations: The Federal rules restrict any use of the information to criminally investigate or prosecute any alcohol or drug abuse patient.[facility] CenterIn the event this information is protected by the Federal Confidentiality of Alcohol and Drug Abuse Patient Records regulations: The Federal rules restrict any use of the information to criminally investigate or prosecute any alcohol or drug abuse patient.[facility] CenterIn the event this information is protected by the Federal Confidentiality of Alcohol and Drug Abuse Patient Records regulations: The Federal rules restrict any use of the information to criminally investigate or prosecute any alcohol or drug abuse patient.[facility] CenterIn the event this information is protected by the Federal Confidentiality of Alcohol and Drug Abuse Patient Records regulations: The Federal rules restrict any use of the information to criminally investigate or prosecute any alcohol or drug abuse patient.[facility] CenterIn the event this information is protected by the Federal Confidentiality of Alcohol and Drug Abuse Patient Records regulations: The Federal rules restrict any use of the information to criminally investigate or prosecute any alcohol or drug abuse patient.[facility] CenterIn the event this information is protected by the Federal Confidentiality of Alcohol and Drug Abuse Patient Records regulations: The Federal rules restrict any use of the information to criminally investigate or prosecute any alcohol or drug abuse patient.[facility] CenterIn the event this information is protected by the Federal Confidentiality of Alcohol and Drug Abuse Patient Records regulations: The Federal rules restrict any use of the information to criminally investigate or prosecute any alcohol or drug abuse patient.[facility] CenterIn the event this information is protected by the Federal Confidentiality of Alcohol and Drug Abuse Patient Records regulations: The Federal rules restrict any use of the information to criminally investigate or prosecute any alcohol or drug abuse patient.[facility] CenterIn the event this information is protected by the Federal Confidentiality of Alcohol and Drug Abuse Patient Records regulations: The Federal rules restrict any use of the information to criminally investigate or prosecute any alcohol or drug abuse patient.[facility] CenterIn the event this information is protected by the Federal Confidentiality of Alcohol and Drug Abuse Patient Records regulations: The Federal rules restrict any use of the information to criminally investigate or prosecute any alcohol or drug abuse patient.[facility] CenterIn the event this information is protected by the Federal Confidentiality of Alcohol and Drug Abuse Patient Records regulations: The Federal rules restrict any use of the information to criminally investigate or prosecute any alcohol or drug abuse patient.[facility] CenterIn the event this information is protected by the Federal Confidentiality of Alcohol and Drug Abuse Patient Records regulations: The Federal rules restrict any use of the information to criminally investigate or prosecute any alcohol or drug abuse patient.[facility] CenterIn the event this information is protected by the Federal Confidentiality of Alcohol and Drug Abuse Patient Records regulations: The Federal rules restrict any use of the information to criminally investigate or prosecute any alcohol or drug abuse patient.[facility] CenterIn the event this information is protected by the Federal Confidentiality of Alcohol and Drug Abuse Patient Records regulations: The Federal rules restrict any use of the information to criminally investigate or prosecute any alcohol or drug abuse patient.[facility] CenterIn the event this information is protected by the Federal Confidentiality of Alcohol and Drug Abuse Patient Records regulations: The Federal rules restrict any use of the information to criminally investigate or prosecute any alcohol or drug abuse patient.[facility] CenterIn the event this information is protected by the Federal Confidentiality of Alcohol and Drug Abuse Patient Records regulations: The Federal rules restrict any use of the information to criminally investigate or prosecute any alcohol or drug abuse patient.[facility] CenterIn the event this information is protected by the Federal Confidentiality of Alcohol and Drug Abuse Patient Records regulations: The Federal rules restrict any use of the information to criminally investigate or prosecute any alcohol or drug abuse patient.[facility] the event this information is protected by the Federal Confidentiality of Alcohol and Drug Abuse Patient Records regulations: The Federal rules restrict any use of the information to criminally investigate or prosecute any alcohol or drug abuse patient.[facility] CenterIn the event this information is protected by the Federal Confidentiality of Alcohol and Drug Abuse Patient Records regulations: The Federal rules restrict any use of the information to criminally investigate or prosecute any alcohol or drug abuse patient.[facility] CenterIn the event this information is protected by the Federal Confidentiality of Alcohol and Drug Abuse Patient Records regulations: The Federal rules restrict any use of the information to criminally investigate or prosecute any alcohol or drug abuse patient.[facility]In the event this information is protected by the Federal Confidentiality of Alcohol and Drug Abuse Patient Records regulations: The Federal rules restrict any use of the information to criminally investigate or prosecute any alcohol or drug abuse patient.[facility] CenterIn the event this information is protected by the Federal Confidentiality of Alcohol and Drug Abuse Patient Records regulations: The Federal rules restrict any use of the information to criminally investigate or prosecute any alcohol or drug abuse patient.[facility] CenterIn the event this information is protected by the Federal Confidentiality of Alcohol and Drug Abuse Patient Records regulations: The Federal rules restrict any use of the information to criminally investigate or prosecute any alcohol or drug abuse patient.[facility] CenterIn the event this information is protected by the Federal Confidentiality of Alcohol and Drug Abuse Patient Records regulations: The Federal rules restrict any use of the information to criminally investigate or prosecute any alcohol or drug abuse patient.[facility] CenterIn the event this information is protected by the Federal Confidentiality of Alcohol and Drug Abuse Patient Records regulations: The Federal rules restrict any use of the information to criminally investigate or prosecute any alcohol or drug abuse patient.[facility] CenterIn the event this information is protected by the Federal Confidentiality of Alcohol and Drug Abuse Patient Records regulations: The Federal rules restrict any use of the information to criminally investigate or prosecute any alcohol or drug abuse patient.[facility] CenterIn the event this information is protected by the Federal Confidentiality of Alcohol and Drug Abuse Patient Records regulations: The Federal rules restrict any use of the information to criminally investigate or prosecute any alcohol or drug abuse patient.[facility] CenterIn the event this information is protected by the Federal Confidentiality of Alcohol and Drug Abuse Patient Records regulations: The Federal rules restrict any use of the information to criminally investigate or prosecute any alcohol or drug abuse patient.[facility] CenterIn the event this information is protected by the Federal Confidentiality of Alcohol and Drug Abuse Patient Records regulations: The Federal rules restrict any use of the information to criminally investigate or prosecute any alcohol or drug abuse patient.[facility] CenterIn the event this information is protected by the Federal Confidentiality of Alcohol and Drug Abuse Patient Records regulations: The Federal rules restrict any use of the information to criminally investigate or prosecute any alcohol or drug abuse patient.[facility] CenterIn the event this information is protected by the Federal Confidentiality of Alcohol and Drug Abuse Patient Records regulations: The Federal rules restrict any use of the information to criminally investigate or prosecute any alcohol or drug abuse patient.[facility] CenterIn the event this information is protected by the Federal Confidentiality of Alcohol and Drug Abuse Patient Records regulations: The Federal rules restrict any use of the information to criminally investigate or prosecute any alcohol or drug abuse patient.[facility] CenterIn the event this information is protected by the Federal Confidentiality of Alcohol and Drug Abuse Patient Records regulations: The Federal rules restrict any use of the information to criminally investigate or prosecute any alcohol or drug abuse patient.[facility] CenterIn the event this information is protected by the Federal Confidentiality of Alcohol and Drug Abuse Patient Records regulations: The Federal rules restrict any use of the information to criminally investigate or prosecute any alcohol or drug abuse patient.[facility] CenterIn the event this information is protected by the Federal Confidentiality of Alcohol and Drug Abuse Patient Records regulations: The Federal rules restrict any use of the information to criminally investigate or prosecute any alcohol or drug abuse patient.[facility] CenterIn the event this information is protected by the Federal Confidentiality of Alcohol and Drug Abuse Patient Records regulations: The Federal rules restrict any use of the information to criminally investigate or prosecute any alcohol or drug abuse patient.[facility] CenterIn the event this information is protected by the Federal Confidentiality of Alcohol and Drug Abuse Patient Records regulations: The Federal rules restrict any use of the information to criminally investigate or prosecute any alcohol or drug abuse patient.[facility] CenterIn the event this information is protected by the Federal Confidentiality of Alcohol and Drug Abuse Patient Records regulations: The Federal rules restrict any use of the information to criminally investigate or prosecute any alcohol or drug abuse patient.[facility] CenterIn the event this information is protected by the Federal Confidentiality of Alcohol and Drug Abuse Patient Records regulations: The Federal rules restrict any use of the information to criminally investigate or prosecute any alcohol or drug abuse patient.[facility] CenterIn the event this information is protected by the Federal Confidentiality of Alcohol and Drug Abuse Patient Records regulations: The Federal rules restrict any use of the information to criminally investigate or prosecute any alcohol or drug abuse patient.[facility] CenterIn the event this information is protected by the Federal Confidentiality of Alcohol and Drug Abuse Patient Records regulations: The Federal rules restrict any use of the information to criminally investigate or prosecute any alcohol or drug abuse patient.[facility] CenterIn the event this information is protected by the Federal Confidentiality of Alcohol and Drug Abuse Patient Records regulations: The Federal rules restrict any use of the information to criminally investigate or prosecute any alcohol or drug abuse patient.[facility] CenterIn the event this information is protected by the Federal Confidentiality of Alcohol and Drug Abuse Patient Records regulations: The Federal rules restrict any use of the information to criminally investigate or prosecute any alcohol or drug abuse patient.[facility] CenterIn the event this information is protected by the Federal Confidentiality of Alcohol and Drug Abuse Patient Records regulations: The Federal rules restrict any use of the information to criminally investigate or prosecute any alcohol or drug abuse patient.[facility] CenterIn the event this information is protected by the Federal Confidentiality of Alcohol and Drug Abuse Patient Records regulations: The Federal rules restrict any use of the information to criminally investigate or prosecute any alcohol or drug abuse patient.[facility] CenterIn the event this information is protected by the Federal Confidentiality of Alcohol and Drug Abuse Patient Records regulations: The Federal rules restrict any use of the information to criminally investigate or prosecute any alcohol or drug abuse patient.[facility] CenterIn the event this information is protected by the Federal Confidentiality of Alcohol and Drug Abuse Patient Records regulations: The Federal rules restrict any use of the information to criminally investigate or prosecute any alcohol or drug abuse patient.[facility] CenterIn the event this information is protected by the Federal Confidentiality of Alcohol and Drug Abuse Patient Records regulations: The Federal rules restrict any use of the information to criminally investigate or prosecute any alcohol or drug abuse patient.[facility] CenterIn the event this information is protected by the Federal Confidentiality of Alcohol and Drug Abuse Patient Records regulations: The Federal rules restrict any use of the information to criminally investigate or prosecute any alcohol or drug abuse patient.[facility] CenterIn the event this information is protected by the Federal Confidentiality of Alcohol and Drug Abuse Patient Records regulations: The Federal rules restrict any use of the information to criminally investigate or prosecute any alcohol or drug abuse patient.[facility] CenterIn the event this information is protected by the Federal Confidentiality of Alcohol and Drug Abuse Patient Records regulations: The Federal rules restrict any use of the information to criminally investigate or prosecute any alcohol or drug abuse patient.[facility] CenterIn the event this information is protected by the Federal Confidentiality of Alcohol and Drug Abuse Patient Records regulations: The Federal rules restrict any use of the information to criminally investigate or prosecute any alcohol or drug abuse patient.[facility] CenterIn the event this information is protected by the Federal Confidentiality of Alcohol and Drug Abuse Patient Records regulations: The Federal rules restrict any use of the information to criminally investigate or prosecute any alcohol or drug abuse patient.[facility] CenterIn the event this information is protected by the Federal Confidentiality of Alcohol and Drug Abuse Patient Records regulations: The Federal rules restrict any use of the information to criminally investigate or prosecute any alcohol or drug abuse patient.[facility] CenterIn the event this information is protected by the Federal Confidentiality of Alcohol and Drug Abuse Patient Records regulations: The Federal rules restrict any use of the information to criminally investigate or prosecute any alcohol or drug abuse patient.[facility] CenterIn the event this information is protected by the Federal Confidentiality of Alcohol and Drug Abuse Patient Records regulations: The Federal rules restrict any use of the information to criminally investigate or prosecute any alcohol or drug abuse patient.[facility] CenterIn the event this information is protected by the Federal Confidentiality of Alcohol and Drug Abuse Patient Records regulations: The Federal rules restrict any use of the information to criminally investigate or prosecute any alcohol or drug abuse patient.[facility] CenterIn the event this information is protected by the Federal Confidentiality of Alcohol and Drug Abuse Patient Records regulations: The Federal rules restrict any use of the information to criminally investigate or prosecute any alcohol or drug abuse patient.[facility] CenterIn the event this information is protected by the Federal Confidentiality of Alcohol and Drug Abuse Patient Records regulations: The Federal rules restrict any use of the information to criminally investigate or prosecute any alcohol or drug abuse patient.[facility] CenterIn the event this information is protected by the Federal Confidentiality of Alcohol and Drug Abuse Patient Records regulations: The Federal rules restrict any use of the information to criminally investigate or prosecute any alcohol or drug abuse patient.[facility] CenterIn the event this information is protected by the Federal Confidentiality of Alcohol and Drug Abuse Patient Records regulations: The Federal rules restrict any use of the information to criminally investigate or prosecute any alcohol or drug abuse patient.[facility] CenterIn the event this information is protected by the Federal Confidentiality of Alcohol and Drug Abuse Patient Records regulations: The Federal rules restrict any use of the information to criminally investigate or prosecute any alcohol or drug abuse patient.[facility] CenterIn the event this information is protected by the Federal Confidentiality of Alcohol and Drug Abuse Patient Records regulations: The Federal rules restrict any use of the information to criminally investigate or prosecute any alcohol or drug abuse patient.[facility] CenterIn the event this information is protected by the Federal Confidentiality of Alcohol and Drug Abuse Patient Records regulations: The Federal rules restrict any use of the information to criminally investigate or prosecute any alcohol or drug abuse patient.[facility] CenterIn the event this information is protected by the Federal Confidentiality of Alcohol and Drug Abuse Patient Records regulations: The Federal rules restrict any use of the information to criminally investigate or prosecute any alcohol or drug abuse patient.[facility] CenterIn the event this information is protected by the Federal Confidentiality of Alcohol and Drug Abuse Patient Records regulations: The Federal rules restrict any use of the information to criminally investigate or prosecute any alcohol or drug abuse patient.[facility] CenterIn the event this information is protected by the Federal Confidentiality of Alcohol and Drug Abuse Patient Records regulations: The Federal rules restrict any use of the information to criminally investigate or prosecute any alcohol or drug abuse patient.[facility] the event this information is protected by the Federal Confidentiality of Alcohol and Drug Abuse Patient Records regulations: The Federal rules restrict any use of the information to criminally investigate or prosecute any alcohol or drug abuse patient.[facility] CenterIn the event this information is protected by the Federal Confidentiality of Alcohol and Drug Abuse Patient Records regulations: The Federal rules restrict any use of the information to criminally investigate or prosecute any alcohol or drug abuse patient.[facility] CenterIn the event this information is protected by the Federal Confidentiality of Alcohol and Drug Abuse Patient Records regulations: The Federal rules restrict any use of the information to criminally investigate or prosecute any alcohol or drug abuse patient.[facility]In the event this information is protected by the Federal Confidentiality of Alcohol and Drug Abuse Patient Records regulations: The Federal rules restrict any use of the information to criminally investigate or prosecute any alcohol or drug abuse patient.[facility] CenterIn the event this information is protected by the Federal Confidentiality of Alcohol and Drug Abuse Patient Records regulations: The Federal rules restrict any use of the information to criminally investigate or prosecute any alcohol or drug abuse patient.[facility] CenterIn the event this information is protected by the Federal Confidentiality of Alcohol and Drug Abuse Patient Records regulations: The Federal rules restrict any use of the information to criminally investigate or prosecute any alcohol or drug abuse patient.[facility] CenterIn the event this information is protected by the Federal Confidentiality of Alcohol and Drug Abuse Patient Records regulations: The Federal rules restrict any use of the information to criminally investigate or prosecute any alcohol or drug abuse patient.[facility] CenterIn the event this information is protected by the Federal Confidentiality of Alcohol and Drug Abuse Patient Records regulations: The Federal rules restrict any use of the information to criminally investigate or prosecute any alcohol or drug abuse patient.[facility] CenterIn the event this information is protected by the Federal Confidentiality of Alcohol and Drug Abuse Patient Records regulations: The Federal rules restrict any use of the information to criminally investigate or prosecute any alcohol or drug abuse patient.[facility] CenterIn the event this information is protected by the Federal Confidentiality of Alcohol and Drug Abuse Patient Records regulations: The Federal rules restrict any use of the information to criminally investigate or prosecute any alcohol or drug abuse patient.[facility] CenterIn the event this information is protected by the Federal Confidentiality of Alcohol and Drug Abuse Patient Records regulations: The Federal rules restrict any use of the information to criminally investigate or prosecute any alcohol or drug abuse patient.[facility] CenterIn the event this information is protected by the Federal Confidentiality of Alcohol and Drug Abuse Patient Records regulations: The Federal rules restrict any use of the information to criminally investigate or prosecute any alcohol or drug abuse patient.[facility] CenterIn the event this information is protected by the Federal Confidentiality of Alcohol and Drug Abuse Patient Records regulations: The Federal rules restrict any use of the information to criminally investigate or prosecute any alcohol or drug abuse patient.[facility] CenterIn the event this information is protected by the Federal Confidentiality of Alcohol and Drug Abuse Patient Records regulations: The Federal rules restrict any use of the information to criminally investigate or prosecute any alcohol or drug abuse patient.[facility] CenterIn the event this information is protected by the Federal Confidentiality of Alcohol and Drug Abuse Patient Records regulations: The Federal rules restrict any use of the information to criminally investigate or prosecute any alcohol or drug abuse patient.[facility] CenterIn the event this information is protected by the Federal Confidentiality of Alcohol and Drug Abuse Patient Records regulations: The Federal rules restrict any use of the information to criminally investigate or prosecute any alcohol or drug abuse patient.[facility] CenterIn the event this information is protected by the Federal Confidentiality of Alcohol and Drug Abuse Patient Records regulations: The Federal rules restrict any use of the information to criminally investigate or prosecute any alcohol or drug abuse patient.[facility] CenterIn the event this information is protected by the Federal Confidentiality of Alcohol and Drug Abuse Patient Records regulations: The Federal rules restrict any use of the information to criminally investigate or prosecute any alcohol or drug abuse patient.[facility] CenterIn the event this information is protected by the Federal Confidentiality of Alcohol and Drug Abuse Patient Records regulations: The Federal rules restrict any use of the information to criminally investigate or prosecute any alcohol or drug abuse patient.[facility] Reason for Visit (unrecogniz ed section and content) Reason Onset Date Comments Community Monitoring Outreach 01/21/2022 CD M Outreach Reason Onset Date Comments Community Monitoring Outreach 02/04/2022 [place] PD CDM Outreach Reason Onset Date Comments Community Monitoring Outreach 02/28/2022 [place] [facility] CDM Outreach Reason Onset Date Comments Refill Request 03/21/2022 Reason Onset Date Comments Community Monitoring Outreach 04/04/2022 Ch ronic Bronchitis CDM Outreach Reason Onset Date Comments Community Monitoring Outreach 04/25/2022 [place] [facility] Telephonic CDM Outreach Reason Comments Release Of Medical Records Reason Comments fax to outside - gastro referral Reason Onset Date Comments Community Monitoring Outreach 05/25/2022 [place] Telephonic CDM Outreach Reason Onset Date Comments Refill Request 05/29/2022 Reason Onset Date Comments Refill Request 06/19/2022 Reason Onset Date Comments Refill Request 06/26/2022 Reason Onset Date Comments Refill Request 06/29/2022 Reason Comments Mouth/Lip Problem Possible thrush x3 d ays Reason Comments Covid 19 Concern Reason Comments Nasal Congestion Cough, Pt denied SOB , chest pain, fatigue, +home Covid. Reason Comments Rib Injury R sided rib pain aft er fall x2 days Reason Comments ED Follow-up Reason Onset Date Comments Refill Request 08/15/2022 Reason Onset Date Comments Refill Request 08/21/2022 Reason Onset Date Comments Refill Request 09/05/2022 Reason Onset Date Comments Refill Request 09/16/2022 Reason Onset Date Comments Refill Request 09/26/2022 Reason Onset Date Comments Refill Request 10/13/2022 Reason Onset Date Comments Refill Request 10/26/2022 Reason Onset Date Comments Refill Request 11/09/2022 Reason Comments Med Change Request Reason Comments Pain Pt reported (RT) ileana ulder pain rated 10, with mvmt, onset AM. Reason Onset Date Comments Refill Request 12/05/2022 Reason Comments Rx issue; vaccne question. Reason Comments 2 month follow-up Reason Comments Results Reason Comments Medicare Wellness Exam 4 month follow-up Reason Comments Nurse Visit Wound check to left buttock. Reason Onset Date Comments Community Monitoring Outreach 06/01/2023 Reason Onset Date Comments Refill Request 06/20/2023 Reason Onset Date Comments Refill Request 07/03/2023 Reason Onset Date Comments Refill Request 08/24/2023 Reason Onset Date Comments Refill Request 09/07/2023 Reason Onset Date Comments Refill Request 09/29/2023 Reason Onset Date Comments Refill Request 10/04/2023 Reason Onset Date Comments Community Monitoring Outreach 12/06/2023 Reason Onset Date Comments Community Monitoring Outreach 01/23/2024 Reason Onset Date Comments Refill Request 02/29/2024 Reason Onset Date Comments Community Monitoring Outreach 04/25/2024 Reason Onset Date Comments Refill Request 05/15/2024 Reason Onset Date Comments Community Monitoring Outreach 05/22/2024 Reason Comments Medicare Wellness Exam Reason Onset Date Comments Refill Request 06/13/2024 Reason Onset Date Comments Community Monitoring Outreach 06/18/2024 Reason Onset Date Comments [facility] 07/10/2024 Telephonic Outre ach Reason Onset Date Comments [facility] 07/11/2024 Telephonic Outre ach Reason Onset Date Comments Refill Request 07/22/2024 Reason Onset Date Comments [facility] 07/24/2024 Chronic Disease Management Routine Call Reason Comments severe cramping in my sides now and aga in Reason Onset Date Comments [facility] 08/21/2024 Chronic Disease Management Routine Call Reason Comments Cough Chest congestion, he ad congestion, fatigue, headache, increase in phlegm and turned green x 3 days Reason Comments Medication Problem Reason Comments Cough Chest congestion, in crease in SOB, wheeze, x weeksFinished zpack 10-31 Reason Comments Patient Update Reason Comments Express Care follow-up Reason Comments Shortness of Breath Reason Comments Consult Reason Onset Date Comments Refill Request 09/17/2024 Reason Onset Date Comments [facility] 09/20/2024 Chronic Disease Management OON ED Follow up Call Reason Onset Date Comments [facility] 09/24/2024 CHRONIC DISEASE MANAGEMENT OON ED Follow up Call Reason Onset Date Comments [facility] Outreach 12/09/2024 [place]/Workbench/ACO Reason Comments Patient concern Reason Comments Cough Reason Comments Medicare Wellness Exam 5 month follow-up Care Teams (unrecognized sec tion and content) Team Status: Active Member Role Status Dates Dr. George Vázquez MD Primary Care Provider Active Team Status: Active Member Role Status Dates Dr. George Vázquez MD Primary Care Provider Active Start: October 27, 2024 Dr. Praveen Ruiz DO Emergency Provider Active Start: October 27, 2024 Dr. Vicente Andrews DO Attending Provider Active Start: October 27, 2024 Team Status: Inactive Member Role Status Dates Dr. George Vázquez MD Primary Care Provider Active Start: October 27, 2024 End: October 28, 2024 Dr. Praveen Ruiz DO Emergency Provider Active Start: October 27, 2024 End: October 28, 2024 Dr. Vicente Andrews DO Admit Provider Active Start: October 27, 2024 End: October 28, 2024 Dr. Vicente Andrews DO Attending Provider Active Start: October 27, 2024 End: October 28, 2024 Team Status: Active Member Role Status Dates Dr. George Vázquez MD Primary Care Provider Active Start: October 28, 2024 Dr. Tomy Hanks MD Attending Provider Active S tart: October 28, 2024 Team Status: Active Member Role Status Dates Dr. George Vázquez MD Primary Care Provider Active Start: October 28, 2024 Dr. Praveen Ruiz DO Emergency Provider Active Start: October 28, 2024 Dr. Vicente Andrews DO Admit Provider Active Start: October 28, 2024 Dr. Vicente Andrews DO Attending Provider Active Start: October 28, 2024 Dr. Vicente Andrews DO Other Provider Active Start: October 28, 2024 Team Status: Inactive Member Role Status Dates Dr. George Vázquez MD Primary Care Provider Active Start: November 05, 2024 End: November 05, 2024 Radha Roberts DEHYDROGENATION OPERATOR HEAD, DEHYDROGENATION OPERATOR HEAD-C Attending Provider Active Start: November 05, 2024 End: November 05, 2024 Radha Roberts DEHYDROGENATION OPERATOR HEAD, DEHYDROGENATION OPERATOR HEAD-C Referring Provider Active Start: November 05, 2024 End: November 05, 2024 Team Status: Inactive Member Role Status Dates Dr. George Vázquez MD Primary Care Provider Active Start: November 05, 2024 End: November 05, 2024 Dr. George Vázquez MD Referring Provider Active Start: November 05, 2024 End: November 05, 2024 Dr. Carrillo Malave MD Attending Provider Active Start: November 05, 2024 End: November 05, 2024 Team Status: Inactive Member Role Status Dates Dr. George Vázquez MD Primary Care Provider Active Start: November 06, 2024 End: November 06, 2024 Radha Roberts DEHYDROGENATION OPERATOR HEAD, DEHYDROGENATION OPERATOR HEAD-C Attending Provider Active Start: November 06, 2024 End: November 06, 2024 Radha Roberts DEHYDROGENATION OPERATOR HEAD, DEHYDROGENATION OPERATOR HEAD-C Referring Provider Active Start: November 06, 2024 End: November 06, 2024 Dr. Carrillo Malave MD Other Provider Active St art: November 06, 2024 End: November 06, 2024 Team Status: Active Member Role Status Dates Dr. George Vázquez MD Primary Care Provider Active Start: November 11, 2024 Radha Roberts DEHYDROGENATION OPERATOR HEAD, DEHYDROGENATION OPERATOR HEAD-C Referring Provider Active Start: November 11, 2024 Radha Roberts DEHYDROGENATION OPERATOR HEAD, DEHYDROGENATION OPERATOR HEAD-C Other Provider Active Start: November 11, 2024 Dr. Carrillo Malave MD Other Provider Active St art: November 11, 2024 Dr. Tevin Nelson DO Attending Provider Active S tart: November 11, 2024 Team Status: Inactive Member Role Status Dates Dr. George Vázquez MD Primary Care Provider Active Start: November 26, 2024 End: November 26, 2024 Dr. Carrillo Malave MD Attending Provider Active Start: November 26, 2024 End: November 26, 2024 Dr. Carrillo Malave MD Referring Provider Active Start: November 26, 2024 End: November 26, 2024 Dr. Neptali Orellana MD Other Provider Active Start: November 26, 2024 End: November 26, 2024 Team Status: Active Member Role Status Dates Dr. George Vázquez MD Primary Care Provider Active Start: November 26, 2024 Dr. Carrillo Malave MD Attending Provider Active Start: November 26, 2024 Dr. Carrillo Malave MD Referring Provider Active Start: November 26, 2024 Team Status: Inactive Member Role Status Dates Dr. George Vázquez MD Primary Care Provider Active Start: November 27, 2024 End: November 27, 2024 Dr. Neptali Orellana MD Attending Provider Active Start: November 27, 2024 End: November 27, 2024 Dr. Neptali Orellana MD Referring Provider Active Start: November 27, 2024 End: November 27, 2024 Team Status: Inactive Member Role Status Dates Dr. George Vázquez MD Primary Care Provider Active Start: January 08, 2025 End: January 08, 2025 Dr. George Vázquez MD Referring Provider Active Start: January 08, 2025 End: January 08, 2025 Dr. Carrillo Malave MD Attending Provider Active Start: January 08, 2025 End: January 08, 2025 Team Status: Inactive Member Role Status Dates Dr. George Vázquez MD Primary Care Provider Active Start: January 08, 2025 End: January 08, 2025 Dr. Carrillo Malave MD Attending Provider Active Start: January 08, 2025 End: January 08, 2025 Dr. Carrillo Malave MD Referring Provider Active Start: January 08, 2025 End: January 08, 2025 Team Status: Inactive Member Role Status Dates Dr. George Vázquez MD Primary Care Provider Active Start: January 20, 2025 End: January 20, 2025 Dr. George Vázquez MD Referring Provider Active Start: January 20, 2025 End: January 20, 2025 RENEE Villagomez Attending Provider Active St art: January 20, 2025 End: January 20, 2025 Team Status: Inactive Member Role Status Dates Dr. George Vázquez MD Primary Care Provider Active Start: February 05, 2025 End: February 05, 2025 RENEE Villagomez Attending Provider Active St art: February 05, 2025 End: February 05, 2025 RENEE Villagomez Referring Provider Active St art: February 05, 2025 End: February 05, 2025 Team Status: Active Member Role Status Dates Dr. George Vázquez MD Primary Care Provider Active Start: February 05, 2025 Dr. Salvador Kwok MD Attending Provider Active S tart: February 05, 2025 Nutrition Faculty Member Relationship Specialty Start Date End Date George Vázquez MD [address] [place] [address] PCP - General Internal Medicine 05/08/12 Josh Reveles RN Assistant Account Executive Internal Medicine 02/10/21 Juventino Ulrich MD [address] [place] [address] Primary Staff Physician Cardiology 11/08/21 Nutrition Faculty Member Relationship Specialty Start Date End Date George Vázquez MD [address] [place] [address] PCP - General Internal Medicine 05/08/12 Josh Reveles, biophysics teacherAssistant Account Executive Internal Medicine 02/10/21 Juventino Ulrich MD [address] [place] [address] Primary Staff Physician Cardiology 11/08/21 Nutrition Faculty Member Relationship Specialty Start Date End Date George Vázquez MD [facility] [place] [address] PCP - General Internal Medicine 05/08/12 Josh Reveles biophysics teacherAssistant Account Executive Internal Medicine 02/10/21 Juventino Ulrich MD [address] [place] [address] Primary Staff Physician Cardiology 11/08/21 Nutrition Faculty Member Relationship Specialty Start Date End Date George Vázquez MD [address] [place] [address] PCP - General Internal Medicine 05/08/12 Josh Reveles biophysics teacherAssistant Account Executive Internal Medicine 02/10/21 Juventino Ulrich MD [address] [place] [address] Primary Staff Physician Cardiology 11/08/21 Nutrition Faculty Member Relationship Specialty Start Date End Date George Vázquez MD [address] [place] [address] PCP - General Internal Medicine 05/08/12 Josh Reveles biophysics teacherAssistant Account Executive Internal Medicine 02/10/21 Juventino Ulrich MD [address] [place] [address] Primary Staff Physician Cardiology 11/08/21 Nutrition Faculty Member Relationship Specialty Start Date End Date George Vázquez MD [address] [place] [address] PCP - General Internal Medicine 05/08/12 Josh Reveles, biophysics teacherAssistant Account Executive Internal Medicine 02/10/21 Juventino Ulrich MD [address] [place] [address] Primary Staff Physician Cardiology 11/08/21 Nutrition Faculty Member Relationship Specialty Start Date End Date George Vázquez MD [address] [place] [address] PCP - General Internal Medicine 05/08/12 Josh Revlees, biophysics teacherAssistant Account Executive Internal Medicine 02/10/21 Juventino Ulrich MD [address] [place], [place] [id number] Primary Staff Physician Cardiology 11/08/21 Nutrition Faculty Member Relationship Specialty Start Date End Date George Vázquez MD [address] [place] [address] PCP - General Internal Medicine 05/08/12 Josh Reveles, biophysics teacherAssistant Account Executive Internal Medicine 02/10/21 Juventino Ulrich MD [address] [place] [address] Primary Staff Physician Cardiology 11/08/21 Nutrition Faculty Member Relationship Specialty Start Date End Date George Vázquez MD [address] [place] [address] PCP - General Internal Medicine 05/08/12 Josh Reveles, biophysics teacherAssistant Account Executive Internal Medicine 02/10/21 Juventino Ulrich MD [address] [place], [place] [id number] Primary Staff Physician Cardiology 11/08/21 Nutrition Faculty Member Relationship Specialty Start Date End Date George Vázquez MD [address] [place], [place] [address] PCP - General Internal Medicine 05/08/12 Josh Reveles, biophysics teacherAssistant Account Executive Internal Medicine 02/10/21 Juventino Ulrich MD [address] [place] [address] Primary Staff Physician Cardiology 11/08/21 Nutrition Faculty Member Relationship Specialty Start Date End Date Goerge Vázquez MD [facility] [place], [place] [address] PCP - General Internal Medicine 05/08/12 Darlyn Moreno, biophysics teacherAssistant Account Executive Internal Medicine 02/10/21 Juventino Ulrich MD [address] [place] [address] Primary Staff Physician Cardiology 11/08/21 Nutrition Faculty Member Relationship Specialty Start Date End Date George Vázquez MD [address] [place] [address] PCP - General Internal Medicine 05/08/12 Darlyn Moreno, biophysics teacherAssistant Account Executive Internal Medicine 02/10/21 Juventino Ulrich MD [address] [place], [place] [id number] Primary Staff Physician Cardiology 11/08/21 Nutrition Faculty Member Relationship Specialty Start Date End Date George Vázquez MD [address] [place], [place] [address] PCP - General Internal Medicine 05/08/12 Darlyn Moreno, biophysics teacherAssistant Account Executive Internal Medicine 02/10/21 Juventino Ulrich MD [address] [place], [place] [address] Primary Staff Physician Cardiology 11/08/21 Nutrition Faculty Member Relationship Specialty Start Date End Date George Vázquez MD [address] [place], [place] [address] PCP - General Internal Medicine 05/08/12 Darlyn Moreno, biophysics teacherAssistant Account Executive Internal Medicine 02/10/21 Juventino Ulrich MD [address] [place] [address] Primary Staff Physician Cardiology 11/08/21 Nutrition Faculty Member Relationship Specialty Start Date End Date George Vázquez MD [address] [place], [place] [address] PCP - General Internal Medicine 05/08/12 Darlyn Moreno, biophysics teacherAssistant Account Executive Internal Medicine 02/10/21 Juventino Ulrich MD [address] [place] [address] Primary Staff Physician Cardiology 11/08/21 Team Status: Active Member Role Status Dates Dr. George Vázquez MD Family Provider Active Dr. George Vázquez MD Primary Care Provider Active Team Status: Inactive Member Role Status Dates Dr. George Vázquez MD Primary Care Provider, Refer ring Provider Active Cristiane Serna DEHYDROGENATION OPERATOR HEAD, DEHYDROGENATION OPERATOR HEAD-C Attending Provider Active Team Status: Active Member Role Status Dates Dr. George Vázquez MD Primary Care Provider Active Pablo Whitney MD Emergency Provider Active Dr. Judy Henriquez MD Admit Provider, Other Provider Active Dr. Ling Betancur DO Attending Provider, Other Provide r Active Team Status: Inactive Member Role Status Dates Dr. George Vázquez MD Primary Care Provider, Refer ring Provider Active Radha Roberts DEHYDROGENATION OPERATOR HEAD, DEHYDROGENATION OPERATOR HEAD-C Attending Provider Active Team Status: Inactive Member Role Status Dates Dr. George Vázquez MD Primary Care Provider, Refer ring Provider Active Dr. Becky Corbin MD Attending Provider Active Team Status: Active Member Role Status Dates Dr. George Vázquez MD Primary Care Provider Active Dr. Becky Corbin MD Attending Provi zahira, Referring Provider, Other Provider Active Team Status: Active Member Role Status Dates Dr. George Vázquez MD Primary Care Provider Active Dr. Tomy Hanks MD Attending Provider Active Dr. Becky Corbin MD Referring Provider Active Team Status: Active Member Role Status Dates Dr. Geogre Vázquez MD Primary Care Provider Active Dr. Tomy Hanks MD Attending Provider Active Dr. Salvador Palafox MD Referring Provider Active Team Status: Inactive Member Role Status Dates Dr. George Vázquez MD Primary Care Provider Active AARON CruzM Attending Provider, Referring P ayana Active Team Status: Inactive Member Role Status Dates Dr. George Vázquez MD Primary Care Provider Active Dr. Aleksey Javier DO Attending Provider, Referring Provider Active Team Status: Inactive Member Role Status Dates Dr. George Vázquez MD Primary Care Provider Active Cristiane Serna DEHYDROGENATION OPERATOR HEAD, DEHYDROGENATION OPERATOR HEAD-C Attending Provider, Referrin g Provider Active Team Status: Inactive Member Role Status Dates Dr. George Vázquez MD Primary Care Provider Active Radha Roberts DEHYDROGENATION OPERATOR HEAD, DEHYDROGENATION OPERATOR HEAD-C Attending Provider Active Team Status: Inactive Member Role Status Dates Dr. George Vázquez MD Primary Care Provider Active Pablo Whitney MD Emergency Provider Active Dr. Judy Henriquez MD Admit Provider, Other Provider Active Dr. Ling Betancur DO Attending Provider Active Team Status: Inactive Member Role Status Dates Dr. George Vázquez MD Primary Care Provider Active Dr. Becky Corbin MD Attending Provider, Referring Provider Active Team Status: Inactive Member Role Status Dates Dr. George Vázquez MD Primary Care Provider Active Radha Roberts DEHYDROGENATION OPERATOR HEAD, DEHYDROGENATION OPERATOR HEAD-C Attending Provider, Referrin g Provider Active Nutrition Faculty Member Relationship Specialty Start Date End Date George Vázquez MD [address] [place], [place] [address] PCP - General Internal Medicine 05/08/12 Darlyn Moreno RN Assistant Account Executive Internal Medicine 02/10/21 Juventino Ulrich MD [address] [place] [address] Primary Staff Physician Cardiology 11/08/21 Nutrition Faculty Member Relationship Specialty Start Date End Date George Vázquez MD [address] [facility] [place] [address] PCP - General Internal Medicine 05/08/12 Darlyn Moreno RN Assistant Account Executive Internal Medicine 02/10/21 Juventino Ulrich MD [address] [place] [address] Primary Staff Physician Cardiology 11/08/21 Team Status: Inactive Member Role Status Dates Dr. George Vázquez MD Primary Care Provider, Refer ring Provider Active Dr. Mark Giles MD Attending Provider Active Team Status: Active Member Role Status Dates Dr. George Vázquez MD Primary Care Provider, Refer ring Provider Active Dr. Aleksey Javier DO Attending Provider, Other Prov ider Active Team Status: Active Member Role Status Dates Dr. George Vázquez MD Primary Care Provider Active Dr. Aleksey Javier DO Attending Provider Active Team Status: Inactive Member Role Status Dates Dr. George Vázquez MD Primary Care Provider, Refer ring Provider Active Dr. Aleksey Javier DO Attending Provider Active Team Status: Inactive Member Role Status Dates Dr. George Vázquez MD Primary Care P ayana, Attending Provider, Referring Provider Active Dr. Mark Giles MD Other Provider Active Dr. Aleksey Javier DO Other Provider Active Team Status: Inactive Member Role Status Dates Dr. George Vázquez MD Primary Care Provider Active Dr. Aleksey Javier DO Attending Provider Active Cristiane Serna DEHYDROGENATION OPERATOR HEAD, DEHYDROGENATION OPERATOR HEAD-C Referring Provider Active Team Status: Inactive Member Role Status Dates Dr. George Vázquez MD Primary Care Provider Active Dr. Soraya Mas MD Attending Provider, Emergency Provider Active Team Status: Inactive Member Role Status Dates Dr. George Vázquez MD Primary Care Provider, Refer ring Provider Active Amada Mahoney PA, PA Attending Provider Active Team Status: Active Member Role Status Dates Dr. George Vázquez MD Primary Care Provider Active Radha Roberts DEHYDROGENATION OPERATOR HEAD, DEHYDROGENATION OPERATOR HEAD-C Referring Provider, Other Pr ovider Active Dr. Tevin Nelson DO Attending Provider Active Nutrition Faculty Member Relationship Specialty Start Date End Date George Vázquez MD [address] [place] [address] PCP - General Internal Medicine 05/08/12 Darlyn Moreno, biophysics teacherAssistant Account Executive Internal Medicine 02/10/21 Juventino Ulrich MD [address] [place] [address] Primary Staff Physician Cardiology 11/08/21 Team Status: Active Member Role Status Dates Dr. George Vázquez MD Primary Care Provider Active Amada DURAN PA Referring Provider, Other Provider Active Dr. Kal Bartholomew MD Attending Provider Active Team Status: Inactive Member Role Status Dates Dr. George Vázquez MD Primary Care Provider Active Amada DURAN PA Attending Provider, Referr ing Provider Active Nutrition Faculty Member Relationship Specialty Start Date End Date George Vázquez MD [address] [place] [address] PCP - General Internal Medicine 05/08/12 Darlyn Moreno RN Assistant Account Executive Internal Medicine 02/10/21 Juventino Ulrich MD [address] [place] [address] Primary Staff Physician Cardiology 11/08/21 Nutrition Faculty Member Relationship Specialty Start Date End Date George Vázquez MD [address] [place] [address] PCP - General Internal Medicine 05/08/12 Darlyn Moreno RN Assistant Account Executive Internal Medicine 02/10/21 Juventino Ulrich MD [address] [place], [place] [address] Primary Staff Physician Cardiology 11/08/21 Team Status: Inactive Member Role Status Dates Dr. George Vázquez MD Primary Care Provider, Refer ring Provider Active Raciel Khan PA, PA Attending Provider Active Team Status: Inactive Member Role Status Dates Dr. George Vázquez MD Primary Care Provider Active Radha Roberts DEHYDROGENATION OPERATOR HEAD, DEHYDROGENATION OPERATOR HEAD-C Attending Provider, Veronica garvey Provider Active Gloria Cochran DEHYDROGENATION OPERATOR HEAD, DEHYDROGENATION OPERATOR HEAD-C Other Provider Active Nutrition Faculty Member Relationship Specialty Start Date End Date George Vázquez MD [address] [place] [address] PCP - General Internal Medicine 05/08/12 Darlyn Moreno RN Assistant Account Executive Internal Medicine 02/10/21 Juventino Ulrich MD [address] [place] [address] Primary Staff Physician Cardiology 11/08/21 Nutrition Faculty Member Relationship Specialty Start Date End Date George Vázquez MD [address] [place] [address] PCP - General Internal Medicine 05/08/12 Darlyn Moreno RN Assistant Account Executive Internal Medicine 02/10/21 Juventino Ulrich MD [address] [place], [place] [id number] Primary Staff Physician Cardiology 11/08/21 Nutrition Faculty Member Relationship Specialty Start Date End Date George Vázquez MD [address] [place] [address] PCP - General Internal Medicine 05/08/12 Moreno, Darlyn M, biophysics teacherAssistant Account Executive Internal Medicine 02/10/21 Juventino Ulrich MD [address] [place] [address] Primary Staff Physician Cardiology 11/08/21 Nutrition Faculty Member Relationship Specialty Start Date End Date George Vázquez MD [address] [place] [address] PCP - General Internal Medicine 05/08/12 Darlyn Moreno RN Assistant Account Executive Internal Medicine 02/10/21 Juventino Ulrich MD [address] [place] [address] Primary Staff Physician Cardiology 11/08/21 Nutrition Faculty Member Relationship Specialty Start Date End Date George Vázquez MD [address] [place] [address] PCP - General Internal Medicine 05/08/12 Darlyn Moreno RN Assistant Account Executive Internal Medicine 02/10/21 Juventino Ulrich MD [address] [place] [address] Primary Staff Physician Cardiology 11/08/21 Team Status: Inactive Member Role Status Dates Dr. George Vázquez MD Primary Care Provider, Refer ring Provider Active Dr. Farooq Hall MD Attending Provider Active Team Status: Active Member Role Status Dates Dr. George Vázquez MD Primary Care Provider Active Dr. Kal Bartholomew MD Attending Provider Active Nutrition Faculty Member Relationship Specialty Start Date End Date George Vázquez MD [address] [place] [address] PCP - General Internal Medicine 05/08/12 Moreno, Darlyn M, biophysics teacherAssistant Account Executive Internal Medicine 02/10/21 Juventino Ulrich MD [address] [place], [place] [id number] Primary Staff Physician Cardiology 11/08/21 Nutrition Faculty Member Relationship Specialty Start Date End Date George Vázquez MD [address] [place] [address] PCP - General Internal Medicine 05/08/12 Darlyn Moreno biophysics teacherAssistant Account Executive Internal Medicine 02/10/21 Juventino Ulrihc MD [address] [place] [address] Primary Staff Physician Cardiology 11/08/21 Nutrition Faculty Member Relationship Specialty Start Date End Date George Vázquez MD [address] [place] [address] PCP - General Internal Medicine 05/08/12 Darlyn Moreno RN Assistant Account Executive Internal Medicine 02/10/21 Juventino Ulrich MD [address] [place] [address] Primary Staff Physician Cardiology 11/08/21 Nutrition Faculty Member Relationship Specialty Start Date End Date George Vázquez MD [address] [place] [address] PCP - General Internal Medicine 05/08/12 Darlyn Moreno RN Assistant Account Executive Internal Medicine 02/10/21 Juventino Ulrich MD [address] [place], [place] [id number] Primary Staff Physician Cardiology 11/08/21 Nutrition Faculty Member Relationship Specialty Start Date End Date George Vázquez MD [address] [facility] [address] PCP - General Internal Medicine 05/08/12 Darlyn Moreno, biophysics teacherAssistant Account Executive Internal Medicine 02/10/21 Juventino Ulrich MD [address] [place] [address] Primary Staff Physician Cardiology 11/08/21 Nutrition Faculty Member Relationship Specialty Start Date End Date George Vázquez MD [address] [place] [address] PCP - General Internal Medicine 05/08/12 Darlyn Moreno, biophysics teacherAssistant Account Executive Internal Medicine 02/10/21 Juventino Ulrich MD [address] [place] [address] Primary Staff Physician Cardiology 11/08/21 Nutrition Faculty Member Relationship Specialty Start Date End Date George Vázquez MD [address] [place] [address] PCP - General Internal Medicine 05/08/12 Darlyn Moreno, biophysics teacherAssistant Account Executive Internal Medicine 02/10/21 Juventino Ulrich MD [address] [place] [address] Primary Staff Physician Cardiology 11/08/21 Nutrition Faculty Member Relationship Specialty Start Date End Date George Vázquez MD [address] [place] [address] PCP - General Internal Medicine 05/08/12 Darlyn Moreno, biophysics teacherAssistant Account Executive Internal Medicine 02/10/21 Juventino Ulrich MD [address] [place], [place] [id number] Primary Staff Physician Cardiology 11/08/21 Nutrition Faculty Member Relationship Specialty Start Date End Date George Vázquez MD [address] [place], [place] [address] PCP - General Internal Medicine 05/08/12 Nutrition Faculty Member Relationship Specialty Start Date End Date George Vázquez MD [address] [place], [place] [address] PCP - General Internal Medicine 05/08/12 Darlyn Moreno, biophysics teacherAssistant Account Executive Internal Medicine 02/10/21 Juventino Ulrich MD [address] [place] [address] Primary Staff Physician Cardiology 11/08/21 Nutrition Faculty Member Relationship Specialty Start Date End Date George Vázquez MD [address] [place] [address] PCP - General Internal Medicine 05/08/12 Darlyn Moreno, biophysics teacherAssistant Account Executive Internal Medicine 02/10/21 Juventino Ulrich MD [address] [place] [address] Primary Staff Physician Cardiology 11/08/21 Nutrition Faculty Member Relationship Specialty Start Date End Date George Vázquez MD [address] [facility], [place] [id number] PCP - General Internal Medicine 05/08/12 Darlyn Moreno, biophysics teacherAssistant Account Executive Internal Medicine 02/10/21 Juventino Ulrich MD [address] [place], [place] [id number] Primary Staff Physician Cardiology 11/08/21 Nutrition Faculty Member Relationship Specialty Start Date End Date George Vázquez MD [address] [place] [address] PCP - General Internal Medicine 05/08/12 Darlyn Moreno, biophysics teacherAssistant Account Executive Internal Medicine 02/10/21 Juventino Ulrich MD [address] [place] [address] Primary Staff Physician Cardiology 11/08/21 Nutrition Faculty Member Relationship Specialty Start Date End Date George Vázquez MD [address] [place] [address] PCP - General Internal Medicine 05/08/12 Darlyn Moreno, biophysics teacherAssistant Account Executive Internal Medicine 02/10/21 Juventino Ulrich MD [address] [place] [address] Primary Staff Physician Cardiology 11/08/21 Nutrition Faculty Member Relationship Specialty Start Date End Date George Vázquez MD [address] [place] [address] PCP - General Internal Medicine 05/08/12 Darlyn Moreno, biophysics teacherAssistant Account Executive Internal Medicine 02/10/21 Juventino Ulrich MD [address] [place] [address] Primary Staff Physician Cardiology 11/08/21 Nutrition Faculty Member Relationship Specialty Start Date End Date George Vázquez MD [address] [place] [address] PCP - General Internal Medicine 05/08/12 Darlyn Moreno, biophysics teacherAssistant Account Executive Internal Medicine 02/10/21 Juventino Ulrich MD [address] [facility] [place] [address] Primary Staff Physician Cardiology 11/08/21 Nutrition Faculty Member Relationship Specialty Start Date End Date George Vázquez MD [address] [place] [address] PCP - General Internal Medicine 05/08/12 Darlyn Moreno, biophysics teacherAssistant Account Executive Internal Medicine 02/10/21 Juventino Ulrich MD [address] [place] [address] Primary Staff Physician Cardiology 11/08/21 Nutrition Faculty Member Relationship Specialty Start Date End Date George Vázquez MD [address] [place] [address] PCP - General Internal Medicine 05/08/12 Juventino Ulrich MD [address] [place] [address] Primary Staff Physician Cardiology 11/08/21 Blanca Tilley, LICENSED NUCLEAR CONTROL ROOM OPERATOR.WIRE DRAWING SETTER [address] [place] [address] Slide Developer Internal Medicine 10/07/24 Nutrition Faculty Member Relationship Specialty Start Date End Date George Vázquez MD [address] [place] [address] PCP - General Internal Medicine 05/08/12 Juventino Ulrich MD [address] [place], [place] [id number] Primary Staff Physician Cardiology 11/08/21 Blanca Tilley, LICENSED NUCLEAR CONTROL ROOM OPERATOR.WIRE DRAWING SETTER [address] [place], [place] [address] Slide Developer Internal Medicine 10/07/24 Nutrition Faculty Member Relationship Specialty Start Date End Date George Vázquez MD [address] [place], [place] [address] PCP - General Internal Medicine 05/08/12 Juventino Ulrich MD [address] [place], [place] [id number] Primary Staff Physician Cardiology 11/08/21 Blanca Tilley, LICENSED NUCLEAR CONTROL ROOM OPERATOR.WIRE DRAWING SETTER [address] [place] [address] [facility] Internal Medicine 10/07/24 Nutrition Faculty Member Relationship Specialty Start Date End Date George Vázquez MD [address] [place] [address] PCP - General Internal Medicine 05/08/12 Juventino Ulrich MD [address] [place], [place] [id number] Primary Staff Physician Cardiology 11/08/21 Blanca Tilley, LICENSED NUCLEAR CONTROL ROOM OPERATOR.WIRE DRAWING SETTER [address] [place] [address] [facility] Internal Medicine 10/07/24 Team Status: Inactive Member Role Status Dates Dr. George Vázquez MD Primary Care Provider Active Start: September 17, 2024 End: September 17, 2024 Dr. Francisco Murillo MD Attending Provider Active S tart: September 17, 2024 End: September 17, 2024 Dr. Francisco Murillo MD Emergency Provider Active S tart: September 17, 2024 End: September 17, 2024 Nutrition Faculty Member Relationship Specialty Start Date End Date George Vázquez MD [address] [place] [address] PCP - General Internal Medicine 05/08/12 Juventino Ulrich MD [address] [place] [address] Primary Staff Physician Cardiology 11/08/21 Blanca Tilley, LICENSED NUCLEAR CONTROL ROOM OPERATOR.[facility] [address] [place] [address] Slide Developer Internal Medicine 10/07/24 Team Status: Active Member Role/Relationship Status Dates Dr. George Vázquez MD Primary Care Provider Active Team Status: Inactive Member Role/Relationship Status Dates Dr. George Vázquez MD Primary Care Provider Active Start: January 08, 2025 End: January 08, 2025 Dr. George Vázquez MD Referring Provider Active Start: January 08, 2025 End: January 08, 2025 Dr. Carrillo Malave MD Attending Provider Active Start: January 08, 2025 End: January 08, 2025 Team Status: Inactive Member Role/Relationship Status Dates Dr. George Vázquez MD Primary Care Provider Active Start: January 08, 2025 End: January 08, 2025 Dr. George Vázquez MD Referring Provider Active Start: January 08, 2025 End: January 08, 2025 Dr. Carrillo Malave MD Attending Provider Active Start: January 08, 2025 End: January 08, 2025 Team Status: Inactive Member Role/Relationship Status Dates Dr. George Vázquez MD Primary Care Provider Active Start: January 08, 2025 End: January 08, 2025 Dr. Carrillo Malave MD Attending Provider Active Start: January 08, 2025 End: January 08, 2025 Dr. Carrillo Malave MD Referring Provider Active Start: January 08, 2025 End: January 08, 2025 Team Status: Inactive Member Role/Relationship Status Dates Dr. George Vázquez MD Primary Care Provider Active Start: January 20, 2025 End: January 20, 2025 Dr. George Vázquez MD Referring Provider Active Start: January 20, 2025 End: January 20, 2025 RENEE Villagomez Attending Provider Active St art: January 20, 2025 End: January 20, 2025 Team Status: Inactive Member Role/Relationship Status Dates Dr. George Vázquez MD Primary Care Provider Active Start: February 05, 2025 End: February 05, 2025 RENEE Villagomez Attending Provider Active St art: February 05, 2025 End: February 05, 2025 RENEE Villagomez Referring Provider Active St art: February 05, 2025 End: February 05, 2025 Team Status: Active Member Role/Relationship Status Dates Dr. George Vázquez MD Primary Care Provider Active Start: February 05, 2025 Dr. Salvador Kwok MD Attending Provider Active S tart: February 05, 2025 RENEE Villagomez Referring Provider Active St art: February 05, 2025 Team Status: Inactive Member Role/Relationship Status Dates Dr. George Vázquez MD Primary Care Provider Active Start: February 14, 2025 End: February 14, 2025 Dr. Neptali Orellana MD Attending Provider Active Start: February 14, 2025 End: February 14, 2025 Dr. Neptali Orellana MD Referring Provider Active Start: February 14, 2025 End: February 14, 2025 Team Status: Active Member Role/Relationship Status Dates Dr. George Vázquez MD Primary Care Provider Active Start: May 03, 2025 RENEE Villagomez Attending Provider Active St art: May 03, 2025 RENEE Villagomez Referring Provider Active St art: May 03, 2025 Team Status: Inactive Member Role/Relationship Status Dates Dr. George Vázquez MD Primary Care Provider Active Start: May 05, 2025 End: May 05, 2025 Dr. George Vázquez MD Referring Provider Active Start: May 05, 2025 End: May 05, 2025 Daniel Saeed DEHYDROGENATION OPERATOR HEAD, DEHYDROGENATION OPERATOR HEAD-C Attending Provider Active S tart: May 05, 2025 End: May 05, 2025 Team Status: Inactive Member Role/Relationship Status Dates Dr. George Vázquez MD Primary Care Provider Active Start: May 03, 2025 End: May 03, 2025 RENEE Villagomez Attending Provider Active St art: May 03, 2025 End: May 03, 2025 RENEE Villagomez Referring Provider Active St art: May 03, 2025 End: May 03, 2025 Nutrition Faculty Member Relationship Specialty Start Date End Date George Vázquez MD [address] [place] [address] PCP - General Internal Medicine 05/08/12 Juventino Ulrich MD [address] [place] [address] Primary Staff Physician Cardiology 11/08/21 Blanca Tilley, LICENSED NUCLEAR CONTROL ROOM OPERATOR.WIRE DRAWING SETTER [address] [place] [address] Slide Developer Internal Medicine 10/07/24 Goals (unrecognized section and content) Goals may be documented in a n alternate sectionGoals may be documented in an alternate sectionGoals may be documented in an alternate sectionGoals may be documented in an alternate sectionGoals may be documented in an alternate sectionGoals may be documented in an alternate sectionGoals may be documented in an alternate sectionGoals may be documented in an alternate sectionGoals may be documented in an alternate sectionGoals may be documented in an alternate sectionGoals may be documented in an alternate sectionGoals may be documented in an alternate sectionGoals may be documented in an alternate sectionGoals may be documented in an alternate sectionGoals may be documented in an alternate sectionGoals may be documented in an alternate sectionGoals may be documented in an alternate sectionGoals may be documented in an alternate section FOR RECORDS PERTAINING TO PATIENTS WHO ARE OR HAVE BEEN ENROLLED IN A CHEMICAL DEPENDENCY/SUBSTANCEABUSE PROGRAM, SOME INFORMATION MAY BE OMITTED. This clinical summary was aggregated from multiple sources. Caution should be exercised in using it in the provision of clinical care. This summary normalizes information from multiple sources, and as a consequence, information in this document may materially change the coding, format and clinical context of patient data. In addition, data may be omitted in some cases. CLINICAL DECISIONS SHOULD BE BASED ON THE PRIMARY CLINICAL RECORDS. [facility] [employer], [facility]. provides no warranty or guarantee of the accuracy or completeness of information in this document.
--- NOTE | 2025-06-14 09:10 | CT_ITS ---
PROCEDURE: LOW DOSE CT LUNG SCREENING 06/14/2025 REASON FOR EXAM: SMOKER COPD. TECHNIQUE: LOW DOSE CT LUNG SCREENING Coronal and Sagittal reconstruction series were provided. One or more dose reduction techniques were used (e.g., Automated exposure control, adjustment of the mA and/or kV according to patient size, use of iterative reconstruction technique). REFERENCE LINK: [employer] Lung-RADS RADIATION DOSE SUMMARY: CTDlvol: 2.39 mGy DLP: 74.75 mGycm COMPARISON: Prior study dated November 27, 2024. FINDINGS: PULMONARY NODULES: (Only nodules >3mm are reported) Nodules described below are on series 1 unless otherwise specified. Pulmonary Nodules: No suspicious nodules are seen. Hardware:None Lymph Nodes:No suspicious lymph nodes. Heart and Vasculature:Status post CABG.Atherosclerotic calcifications of the thoracic aorta. Thoracic aorta and pulmonary arteries have normal contours; noncontrast technique limits evaluation. Coronary Artery Calcifications: Present Lungs and Airways: Hyperinflation. Moderate degree of emphysematous changes. No suspicious nodules are seen. Pleura:No pleural effusion. Upper Abdomen:Unremarkable Bones:Degenerative changes of the thoracic spine. CT/Low Dose CT Lung Screening IMPRESSION: No suspicious nodules are seen. Coronary artery calcification (CAC) is is present Lung-RADS Category: 2 BENIGN (BASED ON IMAGING FEATURES OR INDOLENT BEHAVIOR). RECOMMEND 12-MONTH SCREENING LDCT. Other Significant Findings: Reading Location: [id number]
== END | disposition home or self-care (01) ==
LOC: CT 08:57
PROVIDERS: PCP Internal Medicine; Referring Provider Nurse Practitioner Acute Care; Visit Provider Nurse Practitioner Acute Care
DX: F17.210 Nicotine dependence, cigarettes, uncomplicated (principal)
CPT/HCPCS: 71271

== ENCOUNTER 2025-09-04 15:56 | Inpatient (IN) | payer MEDICARE, OTHER, SELFPAY ==
[2022-02-14 13:29] VITALS: BMI 28.4
[2025-09-04] VITALS (11 sets, daily range): BP systolic 161–180; BP diastolic 68–104; PULSE 70–97; RESP 17–26; TEMP 36.1–37; O2SAT 94–98; BMI 27.9; BMI 27.6
--- NOTE | 2025-09-04 16:18 | ED.VIS.DYS ---
HPI History of Present Illness Chief Complaint: Shortness of Breath Narrative Narrative: 70-year-old male past medical history of COPD presents from his telephone service representative office, Dr. Rivas for admission. He relates history that he has been treated for pneumonia and COPD for the last 2 weeks or longer. This is the second time that he has been on doxycycline and he picked up his prescription yesterday. He states that he wears 2 L of oxygen at night only. He was not told to wear it any longer. He is a smoker but is down to 5 cigarettes a day. He states that his telephone service representative also upped his prednisone to 60 mg a day and he has been on that for few weeks. He feels he is getting worse. He has been using his Symbicort, as well as his DuoNeb nebulizer treatments. He denies any increased leg edema, mild dyspnea on exertion that is worsening. [facility] Medical History Essential hypertension Alcohol use History of steroid therapy Arthritis High cholesterol Smoker On home oxygen therapy COPD (chronic obstructive pulmonary disease) Shortness of breath on exertion History of pain when walking Hypertension History of echocardiogram History of stress test Cardiology follow-up encounter Gallstone Nodule of lower lobe of left lung Perforated diverticulum of large intestine Presence of stent in coronary artery (~11/12/21) Easy bruising Excessive bleeding History of ulceration Gastric reflux History of diverticulitis Chronic bronchitis Nicotine dependence Osteoarthritis DDD (degenerative disc disease), lumbar Atherosclerosis of coronary artery of [place] heart without angina pectoris Atherosclerosis of coronary artery bypass graft without angina pectoris Hyperlipidemia Home Medications Medication Instructions Recorded Last Taken Type clopidogrel 75 mg tablet (Plavix) 75 mg PO DAILY anti platelet #90 10/04/21 11/26/22 Rx tabs albuterol sulfate 90 mcg/actuation 2 puff inhalation Q6H PRN PRN 07/30/24 Unknown Rx aerosol inhaler Shortness Of Breath #8.5 grams budesonide-formoterol HFA 160 2 puff inhalation BID #3 ea 07/30/24 Unknown Rx mcg-4.5 mcg/actuation aerosol inhaler (Symbicort) isosorbide mononitrate 30 mg 30 mg PO DAILY #90 TABLETS 09/09/24 Unknown Rx tablet,extended release 24 hr ipratropium 0.5 mg-albuterol 3 mg 3 ml continuous nebulization Q6H 09/10/24 Unknown Rx (2.5 mg base)/3 mL nebulization PRN shortness of breath or soln wheezing #180 mL metoprolol tartrate 50 mg tablet 50 mg PO BID #180 tabs 11/05/24 Unknown Rx losartan 50 mg tablet 50 mg PO QPM #30 tabs 01/08/25 Unknown Rx furosemide 40 mg tablet 20 mg PO QAM PRN 05/05/25 Unknown History potassium chloride 10 mEq 10 meq PO QDAY 05/05/25 Unknown History capsule,extended release rosuvastatin 40 mg tablet 40 mg PO QHS #90 tabs 07/14/25 Unknown Rx tramadol 50 mg tablet 50 mg PO Q8 PRN pain 07/21/25 Unknown History Allergy/AdvReac Type Severity Reaction Status Date / Time levofloxacin (From [facility]) AdvReac Severe tendonitis Verified 09/04/25 16:01 Family History Father CAD (coronary artery disease) Brother Hypertension Grandfather Pancreatic cancer Grandmother Heart disease Surgical History History of laparoscopic cholecystectomy S/P laparoscopic cholecystectomy Status post double vessel coronary artery bypass Presence of coronary angioplasty implant and graft (~09/29/21) Hx of left cataract extraction Hx of right cataract extraction History of cardiac catheterization History of colectomy S/p bilateral carpal tunnel release H/O coronary artery bypass surgery (10/14/96) History of left knee replacement History of appendectomy History of tonsillectomy History of partial colectomy Social History Smoking Status: Current every day smoker tobacco type: cigarettes alcohol intake: current alcohol intake frequency: 0-2 drinks per day substance use type: does not use caffeine: Yes Type: coffee Number of servings: 2 what type of physical activity do you participate in: none seatbelt use: always do you feel safe at home: Yes ROS ROS ED ROS Narrative Review of systems positive for increasing shortness of breath and dyspnea on exertion, no increased leg swelling. No fevers or chills. Occasional cough. No other exacerbating or alleviating factors. EXAM Physical Exam Narrative Exam Narrative: Afebrile. Vital signs noted. Nontoxic-appearing. Cardiovascular examination feels regular rate and rhythm. Respiratory examination reveals mild tachypnea with diffuse wheezing throughout the bilateral lung bae. Moving a fair amount of air. Abdomen soft and nontender with normoactive bowel sounds. Bilateral symmetric pedal edema noted on examination. Neurological examination nonfocal, nonlateralizing. Const Vital Signs: 09/04/25 15:57 09/04/25 16:00 09/04/25 16:18 Temperature 98 F 98 F Temperature Source Oral Oral Pulse Rate 97 94 Respiratory Rate 26 H 26 H Respiratory Effort Respiratory Depth Respiratory Pattern Blood Pressure 174/102 H 174/102 H Blood Pressure Mean 126 126 Pulse Ox 98 98 98 Oxygen Delivery Method Nasal Cannula Nasal Cannula Nasal Cannula Oxygen Flow Rate (L/min) 3 3 3 09/04/25 16:23 09/04/25 16:48 Temperature Temperature Source Pulse Rate 75 Respiratory Rate 17 Respiratory Effort Short of Breath Respiratory Depth Normal Respiratory Pattern Normal Normal Blood Pressure Blood Pressure Mean Pulse Ox Oxygen Delivery Method Nasal Cannula Oxygen Flow Rate (L/min) 3 MDM MDM MDM Narrative Medical decision making narrative: Differential diagnosis includes but not limited to COPD exacerbation versus pneumonia versus pneumothorax. History and physical does not support pneumothorax. In discussion with his telephone service representative and the patient, he did have a chest x-ray performed yesterday which showed pleural effusion and infiltrates. He is already on antibiotics and has already taken his prednisone but he will be administered a DuoNeb aerosolized treatment and 60-minute milligrams of methylprednisolone. In discussion with pulmonology at the office, it was felt that he will require admission for COPD exacerbation. Smoking cessation was discussed. EKG obtained and interpreted by myself independently as normal sinus rhythm at 82 bpm without ectopy or acute ST changes. No STEMI. There is a right bundle branch block. I also reviewed the radiology report of the chest x-ray and 2 views that he had yesterday which was read as small bilateral pleural effusions with adjacent infiltrates versus atelectasis. He has a normal white count at 9.1 with hemoglobin 16.2, hematocrit 47.1, platelet count 199. BMP is grossly unremarkable except for glucose of 139 with a normal anion gap of 9, BUN elevated at 21 with creatinine 0.89. Upon repeat examination, he still has diffuse wheezing. I will discuss patient with the hospitalist for observation versus admission for COPD exacerbation. I will repeat chest x-ray if requested. In discussion with Dr. Pablo Andrews, he did request chest x-ray as well as BNP, but will admit the patient to the PCU. BNP returned slightly elevated at 857. On my independent interpretation of the x-ray, he has no evidence of consolidation, no pneumothorax. Radiology report reviewed which confirms my independent interpretation. Disposition is admitted in stable condition. History & Record Review Discussion w/independent historian: Patient and Other ([employer]) Additional record(s) reviewed:: Prior outpatient record (Chest x-ray performed yesterday with bilateral pleural effusions with infiltrates versus atelectasis) Lab Data Attestation: I reviewed the patient's lab results. Labs: Laboratory Results - last 24 hr 09/04/25 16:40 WBC 9.1 RBC 4.62 Hgb 16.2 Hct 47.1 MCV 101.9 H MCH 35.1 H MCHC 34.4 RDW Std Deviation 58.7 H RDW Coeff of Lisa 15.6 H Plt Count 199 MPV 9.5 Immature Gran % (Auto) 0.700 Neut % (Auto) 93.7 H Lymph % (Auto) 2.6 L [place] % (Auto) 2.8 Eos % (Auto) 0.0 Baso % (Auto) 0.2 Absolute Neuts (auto) 8.6 H Absolute Lymphs (auto) 0.24 L Nucleated RBC % 0 Sodium 140 Potassium 4.5 Chloride 100 Carbon Dioxide 30.3 Anion Gap 9 BUN 21 H Creatinine 0.89 Est GFR (MDRD) Non-Af 92 BUN/Creatinine Ratio 24.1 H Glucose 139 H Calcium 9.2 NT pro BNP II 857 Radiography Chest X-Ray - ED: 2 View, Read by ED Physician, Right Effusion and Left Effusion Diagnostic Testing: Clinical Impression(s) from Imaging Studies Chest X-Ray 09/04/25 17:48 IMPRESSION: NO ACUTE FINDINGS. Reading Location: [facility] Management Discussion w/another healthcare provider: Hospitalist and Other (Dr. Singh, [employer]) Discharge Plan Dx/Rx/DC Orders Clinical Impression: COPD exacerbation, Nicotine dependence, Hypoxia Disposition Disposition: Acute Care Hospital [facility]
[2025-09-04 16:49] LABS: Hematocrit 47.1 % (40-54); Hemoglobin 16.2 g/dL (13.0-16.5); Immature Granulocytes Count 0.060 X10^3/uL (0.0-0.0); Mean Corp Hgb Conc 34.4 g/dL (32-36); Mean Corpuscular Volume 101.9 fL (80-94); Mean Platelet Vol. 9.5 fl (6.2-12.0); NRBC Flagged by Analyzer 0 % (0-5); POSITIVE DIFFERENTIAL YES; Platelet Count 199 K/mm3 (150-450); RBC Distribution Width CV 15.6 % (11.6-14.6); RBC Distribution Width SD 58.7 fl (35.1-43.9); Red Blood Count 4.62 M/mm3 (4.6-6.2); White Blood Count 9.1 K/mm3 (4.4-11.0)
[2025-09-04 17:08] LABS: Anion Gap 9 (5-15); BUN 21 mg/dL (4-19); BUN/Creat Ratio 24.1 RATIO (10-20); Calcium,Total 9.2 mg/dL (7.6-11.0); Carbon Dioxide 30.3 mmol/L (21.0-32.0); Chloride 100 mmol/L (98-108); Glucose 139 mg/dL (70-99); Potassium 4.5 mmol/L (3.3-5.1)
--- OUTSIDE RECORDS SUMMARY | 2025-09-04 17:20 | XMS RPT_ITS | CCD ---
Author Organization [facility] Care Team Providers Care Ice Cream Freezer Helper Name Role Phone PARAG, DARI Hunt Attending Unavailable PARAG, DARI Hunt Primary Care Unavailable PARAG, DARI Hunt Admitting Unavailable PARAG, DARI Hunt Attending Unavailable PARAG, DARI Hunt Primary Care Unavailable PARAG, DARI Hunt Admitting Unavailable George Vázquez MD Primary Care Provider Darlyn RN, Josh Champagne Unavailable Unavailabl marilee Ulrich MD, Juventino Crook Unavailable Dr. George Vázquez Primary Care Provider Dr. Mark Giles Attending Provider Dr. Mark Giles Referring Provider Dr. Mark Giles Other Provider Maru DURAN, PA Amada Champagne Other Provider Dr. Mendy Latham Admit Provider Dr. George Vázquez Referring Provider Christophe PARKING WORKER, PARKING WORKER-C Daniel Montes Attending Provider Dr. George Vázquez Primary Care Provider Dr. George Vázquez Referring Provider Dr. Mark Giles Attending Provider Armando ELENA, PARKING WORKER-C Radha Attending Provider Dr. George Vázquez Primary Care Provider Dr. George Vázquez Referring Provider Christophe PARKING WORKER, PARKING WORKER-C Daniel Montes Attending Provider Dr. Farooq Hall Attending Provider Dr. Farooq Hall Referring Provider George Vázquez MD Primary Care Provider Darlyn REILLY, Josh Champagne Unavailable Sandoval Ulrich MD, Juventino Crook Unavailable Dr. George Vázquez Primary Care Provider GEORGE VÁZQUEZ Primary Care Unavailable SWAPNIL THACKER Attending Unavailable Dr. George Vázquez Referring Provider Dr. Aleksey Javier Attending Provider Dr. George Vázquez Primary Care Provider Dr. Farooq Hall Attending Provider Dr. Farooq Hall Referring Provider Dr. George Vázquez Referring Provider Dr. Aleksey Javier Attending Provider Josh REILLY, Darlyn Champagne Unavailable George Galdamez MD Primary Care Provider Josh REILLY, Darlyn Champagne Unavailable Sandoval Ulrich MD, Juventino Crook Unavailable Dr. George Vázquez Primary Care Provider Dr. Farooq Hall Attending Provider Dr. Farooq Hall Referring Provider Daphne ELENA, PARKING WORKER-C Cristiane Champagne Attending Provider MD Pablo Whitney Emergency Provider [phone] Judy Henriquez Admit Provider Dr. Judy Henriquez Other Provider Dr. Ling Betancur Attending Provider Dr. Ling Betancur Other Provider Dr. George Vázquez Primary Care Provider Dr. George Vázquez Referring Provider Dr. Becky Corbin Attending Provider Dr. Tomy Hanks Attending Provider Dr. Becky Corbin Referring Provider Armando PARKING WORKER, PARKING WORKER-C Radha Attending Provider Dr. Becky Corbin Other Provider Dr. Salvador Palafox Referring Provider Dr. George Vázquez Primary Care Provider Dr. George Vázquez Referring Provider Daphne ELENA, PARKING WORKER-C Cristiane Champagne Attending Provider MD Pablo Whitney Emergency Provider Dr. Judy Henriquez Admit Provider Dr. Judy Henriquez Other Provider Dr. Ling Betancur Attending Provider Dr. Ling Betancur Other Provider Dr. Becky Corbin Attending Provider Dr. Tomy Hanks Attending Provider Dr. Becky Corbin Referring Provider Armando PARKING WORKER, PARKING WORKER-C Radha Attending Provider Dr. Becky Corbin Other Provider Dr. Salvador Palafox Referring Provider Dr. Mark Giles Attending Provider Dr. Aleksey Javier Attending Provider [phone] Dr. Aleksey Javier Other Provider Dr. George Vázquez Primary Care Provider Dr. George Vázquez Referring Provider Dr. Becky Corbin Attending Provider Daphne PARKING WORKER, PARKING WORKER-C Cristiane Champagne Attending Provider [phone] Armando PARKING WORKER, PARKING WORKER-C Radha Attending Provider Dr. George Vázquez Primary Care Provider Dr. George Vázquez Referring Provider RENEE Joseph Attending Provider Dr. Aleksey Javier Attending Provider Armando PARKING WORKER, PARKING WORKER-C Radha Referring Provider [phone] Armando PARKING WORKER, PARKING WORKER-C Radha Other Provider Dr. Tevin Nelson Attending Provider RENEE Joseph Referring Provider RENEE Joseph Other Provider Dr. Kal Bartholomew Attending Provider Dr. George Vázquez Primary Care Provider Dr. George Vázquez Referring Provider Armando ELENA, ULICES-C Radha Attending Provider Josh REILLY, Darlyn Champagne Unavailable Unavailformerly [facility] marilee Ulrich MD, [facility] Unavailable [phone] George Vázquez Primary Care Provider Dr. George Vázquez Referring Provider RENEE Joseph Attending Provider RENEE Patino Attending Provider Armando ELENA, ULICES-C Radha Attending Provider RENEE Patino Attending Provider Dr. George Vázquez Primary Care Provider Dr. George Vázquez Referring Provider Dr. George Vázquez Primary Care Provider Dr. George Vázquez Referring Provider Maru DURAN, PA Amada Champagne Attending Provider Dr. Farooq Hall Attending Provider Dr. Kal Bartholomew Attending Provider George Vázquez MD Primary Care Provider Alban TECHNICAL SUPPORT SPECIALIST.GROUP HOME MANAGER, Blanca M Unavailable Rosamaria LOPEZ, Dr. Vazquez Primary Care Provider Chidi LOPEZ, Dr. Singh Attending Provider [phone] Chidi LOPEZ, Dr. Singh Emergency Provider Dr. Praveen Ruiz DO Emergency Provider Darryl GAY, Dr. Zhang Attending Provider Darryl GAY, Dr. Zhang Admit Provider Latonya LOPEZ, Dr. Huitron Attending Provider Dr. Vicente Andrews DO Other Provider Armando PARKING WORKER-C, Radha Attending Provider Armando PARKING WORKER-C, Radha Referring Provider Dr. George Vázquez MD Referring Provider Dr. Carrillo Malave MD Attending Provider Dr. Carrillo Malave MD Other Provider Armando PARKING WORKER-C, Radha Other Provider [phone] Tevin Nelson DO Attending Provider Dr. Carrillo Malave MD Referring Provider Reyna LOPEZ, Dr. Neptali Anderson Other Provider Reyna LOPEZ, Dr. Neptali Anderson Attending Provider Dr. Neptali Orellana MD, V Referring Provider Dr. George Vázquez MD Primary Care Provider Bhupendra Bae Attending Provider Bhupendra Bae Referring Provider Sundar LOPEZ, Dr. Franco Attending Provider [phone] Rosamaria LOPEZ, Dr. Vazquez Primary Care Provider Rosamaria LOPEZ, Dr. Vazquez Referring Provider Ananda LOPEZ, Dr. Vizcaino Attending Provider Ananda LOPEZ, Dr. Vizcaino Referring Provider Reyna LOPEZ, Dr. Neptali Anderson Attending Provider Reyna LOPEZ, Dr. Neptali Anderson Referring Provider Christophe PARKING WORKER-C, Daniel Montes Attending Provider Rosamaria LOPEZ, Dr. Vazquez Primary Care Provider Bhupendra Bae Attending Provider Bhupendra Bae Referring Provider Rosamaria LOPEZ, Dr. Vazquez Referring Provider Armando PARKING WORKER-C, Radha Attending Provider Armando PARKING WORKER-C, Radha Referring Provider Rosamaria LOPEZ, Dr. Vazquez Primary Care Physician Bhupendra Bae Attending Physician Christophe PARKING WORKER-C, Daniel Montes Attending Physician [phone] Armando PARKING WORKER-C, Radha Attending Physician Dr. Michael Narayan DO Attending Physician [phone] Dr. Michael Narayan DO Referring Provider Carrillo Malave Consulting Unavailable Tevin Nelson Attending Unavailable George Vázquez Primary Care Unavailable Roberts PARKING WORKER, Radha Referring Unavailable Roberts PARKING WORKER, Radha Consulting Unavailable Carrillo Malave Attending Unavailable Carrillo Malave Referring Unavailable George Vázquez Primary Care Unavailable George Vázquez Primary Care Unavailable Neptali Orellana V Referring Unavailable Neptali Orellana V Attending Unavailable Bhupendra Asif Referring Unavailable Bhupendra Asif Attending Unavailable George Vázquez Primary Care Unavailable Neptali Orellana V Consulting Unavailable Carrillo Malave Referring Unavailable Carrillo Malave Attending Unavailable George Vázquez Primary Care Unavailable Francisco Murillo Attending Unavailable Vázquez, George Primary Care Unavailable Carrillo Malave Consulting Unavailable Armando PARKING WORKER, Radha Referring Unavailable Roberts PARKING WORKER, Radha Attending Unavailable Vázquez, George Primary Care Unavailable Michael Narayan Referring Unavailable Michael Narayan Attending Unavailable Vázqeuz, George Primary Care Unavailable Vázquez, George Primary Care Unavailable Sibrosa, Neptali Anderson Attending Unavailable Vicente Andrews Attending Unavailable Vicente Andrews Admitting Unavailable Vázquez, George Primary Care Unavailable Roberts PARKING WORKER, Radha Referring Unavailable Roberts PARKING WORKER, Radha Attending Unavailable Vázquez, George Primary Care Unavailable Sibilia, Neptali Justin Attending Unavailable Vázquez, George Primary Care Unavailable Sibilia, Neptali V Referring Unavailable Roberts PARKING WORKER, Radha Referring Unavailable Roberts PARKING WORKER, Radha Attending Unavailable Vázquez, George Primary Care Unavailable Bhupendra Asif Referring Unavailable Bhupendra Asif Attending Unavailable Vázquez, George Primary Care Unavailable Carrillo Mlaave Attending Unavailable Vázquez, George Primary Care Unavailable Vázquez, George Referring Unavailable Daniel Saeed Attending Unavailable Vázquez, George Referring Unavailable Vázquez, George Primary Care Unavailable Tomy Hanks Attending Unavailable Vázquez, George Primary Care Unavailable Vicente Andrews Attending Unavailable Vicente Andrews Consulting Unavailable Vicente Andrews Admitting Unavailable Vázquez, George Primary Care Unavailable Vicente Andrews Attending Unavailable Vázquez, George Primary Care Unavailable Bhupendra Asif Referring Unavailable Salvador Kwok Attending Unavailable Vázquez, George Primary Care Unavailable Carrillo Malave Referring Unavailable Carrillo Malave Attending Unavailable Vázquez, George Primary Care Unavailable Bhupendra Asif Attending Unavailable Vázquez, George Referring Unavailable Vázquez, George Primary Care Unavailable Carrillo Malave Attending Unavailable Vázquez, George Referring Unavailable Vázquez, George Primary Care Unavailable Carrillo Malave Attending Unavailable Vázquez, George Referring Unavailable Vázquez, George Primary Care Unavailable Vázquez, George Referring Unavailable Michael Narayan Attending Unavailable Vázquez, George Primary Care Unavailable VÁZQUEZ, ROSALIA Primary Care Unavailable VÁZQUEZ, ROSALIA Primary Care Unavailable VÁZQUEZ, ROSALIA Attending Unavailable VÁZQUEZ, ROSALIA Primary Care Unavailable VÁZQUEZ, ROSALIA Attending Unavailable VÁZQUEZ, ROSALIA Referring Unavailable VÁZQUEZ, ROSALIA Primary Care Unavailable VÁZQUEZ, ROSALIA Primary Care Unavailable ROSAMARIA, ROSALIA Attending Unavailable ROSAMARIA, ROSALIA Referring Unavailable ROSAMARIA, ROSALIA Primary Care Unavailable ROSAMARIA, ROSALIA Primary Care Unavailable ROSAMARIA, ROSALIA Attending Unavailable PRATEEK MATOS Attending Unavailable ROSAMARIA, ROSALIA Primary Care Unavailable PRATEEK MATOS Referring Unavailable ROSAMARIA, ROSALIA Primary Care Unavailable ROSAMARIA, ROSALIA Primary Care Unavailable BLANCA TILLEY Attending Unavailable MANNY Anderson, LOW Attending Unavailable ROSAMARIA, ROSALIA Primary Care Unavailable BLANCA TILLEY Referring Unavailable MANNY Anderson, LOW Referring Unavailable ROSAMARIA, GEORGE Montes Primary Care Unavailable ROSAMARIA, ROSALIA Primary Care Unavailable ROSAMARIA, ROSALIA Primary Care Unavailable SARITHA GREENWOOD Attending Unavailable ROSAMARIA, ROSALIA Referring Unavailable Allergies Allergy Classification Reported Allergen(s) Allergy Type Date of Onset Reaction(s) Facility (20 sources) levoFLOXacin; Translations: [LEVOFLOXACIN] Drug Allergy 0 Other: See Comments Work Phone: Comment on above: Achilles (1 source) levoFLOXacin Drug Allergy 5 [facility] Medications Current Medications Medication Drug Class(es) Dates Sig (Normalized) Sig (Original) acetaminophen 325 mg / HYDROcodone bitartrate 5 mg oral tablet (4 sources) Opioid Agonist Start: 07-13-2022 take 1 tablet by mouth every six hours Hydrocodone-Acetam inophen Active 1 TABLET PO EVERY 6 HOURS 12 3 July 13, 2022 [id number] 200 actuat albuterol 0.09 mg/actuat metered dose [...] 08, 2023 2:44pm Start: 10-28-2022 End: 07-30-2024 Start: 10-28-2022 Albuterol Sulf ate Active INHALATION [...] hours as needed for wheezing/shortness of breath. azithromycin 250 mg oral tablet (16 sources) Macrolide Antimicrobial Start: End: take 2 tablets by mouth once daily, [...] (20 sources) Corticosteroid, beta2-Adrenergic Agonist Start: 07-30-2024 Start: 07-30-2024 Budesonide-For moterol (Symbicort) 160-4.5 mcg/actuation HFA aerosol inhaler Active 2 NMA INHALATION TWICE A DAY 3 3 July 30, 2024 8:23am administer with [...] Start: 02-03-2023 take 1 puff(s) by mo uth twice daily Budesonide-Formoterol (Symbicort) 160-4.5 mcg/actuation HFA aerosol inhaler Active 2 PUFF INHALATION TWICE A DAY 3 February 03, 2023 12:15pm administer with spacer, rinse mouth after each use Start: 02-03-2023 take 1 puff(s) by mo uth twice daily Budesonide-Formoterol (Symbicort) 160-4.5 mcg/actuation HFA aerosol inhaler Active 2 PUFF INHALATION TWICE A DAY 3 February 03, 2023 1:15pm administer with spacer, rinse mouth after each use Start: 03-07-2022 End: 02-03-2023 Budesonide-Formoterol (Symbi fawad) 160-4.5 mcg/actuation HFA aerosol inhaler Discontinued 2 NMA INHALATION TWICE A DAY 1 3 March 07, 2022 12:00am February 03, 2023 1:16pm administer with spacer, rinse mouth after each use Start: 03-07-2022 End: 02-03-2023 Budesonide-Formoterol (Symbi fawad) 160-4.5 mcg/actuation HFA aerosol inhaler Discontinued 2 NMA INHALATION TWICE A DAY March 07, 2022 12:00am February 03, 2023 1:16pm administer with spacer, rinse mouth after each use Start: 03-07-2022 End: 04-07-2023 take 1 puff(s) by mouth twice daily [...] use Start: 03-07-2022 take 1 puff(s) by [facility] twice daily Budesonide-Formoterol (Symbicort) 160-4.5 mcg/actuation HFA aerosol inhaler Active 2 PUFF INHALATION TWICE A DAY March 06, 2022 11:00pm administer with spacer, rinse mouth after each use Start: 03-07-2022 take 1 puff(s) by [facility] twice daily Budesonide-Formoterol (Symbicort) 160-4.5 mcg/actuation [...] November 05, 2021 4:52pm Start: 10-27-2020 End: 01-07-2022 Budesonide-Formoterol (Symbi fawad) 160-4.5 mcg/actuation HFA aerosol [...] as in structed two times a day. diclofenac sodium 0.01 mg/mg topical gel (3 sources) Nonsteroidal Anti-inflammatory Drug Start: 5 End: 5 diclofenac (VOLTAREN ARTHRITIS PAIN) 1 % topical gel Apply 2 g to affected area four times daily for 7 days. 350 g 07/03/2025 07/10/2025 Active doxycycline hyclate 100 mg oral tablet (20 [...] Discontinued 100 mg PO TWICE A DAY March 13, 2023 12:00am April 11, 2023 9:48am Start: 01-13-2023 End: 02-03-2023 take 1 capsule by mouth twice daily Doxycycline Hyclate 100 mg capsule Discontinued 100 mg PO TWICE A DAY January 13, 2023 12:00am February 03, 2023 1:01pm furosemide 40 mg oral tablet (20 sources) Loop Diuretic Start: 01-07-2025 End: 05-05-2025 Start: 10-01-2021 End: 05-28-2025 take 1 tablet by mouth once daily Furosemide 40 mg tablet Discontinued 40 mg PO DAILY 90 3 June 18, 2024 8:07am January 06, 2025 12:42pm On Hold: Resume on 11/05/24. Hold until you see cardiology in the office. Comment on above: Take 40 mg by mouth once daily. Take 1 tablet by bianka th once daily. 12 hr guaiFENesin 1200 mg extended release oral tablet (3 sources) Start: 3 take 1 tablet by mouth twice daily, then take 1 tablet by mouth every twelve hours Guaifenesin (Mucus Relief Er) 1,200 mg Tablet Extended Release 12hr Active 1200 MG PO TWICE A DAY 0 October 30, 2022 12:00am losartan potassium 50 mg oral tablet (20 sources) Angiotensin 2 Receptor Alise Start: 5 take 1 tablet by mouth once daily in the evening Start: 10-07-2022 End: 05-27-2024 take 0.5 tablet by mouth once daily, [...] 1 tablet by mouth once daily Losartan 50 mg tablet Discontinued 50 mg PO daily 90 April 27, 2023 9:19am March 18, 2024 3:01pm Start: 04-23-2018 End: 11-05-2021 take 1 tablet [...] take 1 tablet by mouth twice daily Start: 06-19-2023 End: 11-05-2024 take 1 tablet by mouth once daily Metoprolol Succinate 50 mg tablet extended release 24 hr Discontinued 50 mg PO DAILY 180 3 September 10, 2024 5:40pm November 05, 2024 2:18pm Start: 02-01-2022 take 50 mg by mouth [...] 50 mg PO TWICE A DAY 180 September 30, 2019 3:45pm January 18, 2022 3:05pm Comment on above: Take 1 tablet by bianka th twice daily. molnupiravir 200 mg capsule (1 source) Start: End: take 4 capsules by mouth twice daily molnupiravir 200 mg capsule Indications: Suspected COVID-19 virus infection Take 4 capsules by mouth twice daily for 5 days. 40 capsule 0 07/05/2022 07/10/2022 Active Comment on above: Take 4 capsules by m out twice daily for 5 days. mometasone furoate 1 mg/ml topical cream (6 sources) Corticosteroid Start: 025 mometasone (ELOCON) 0.1 % cream Indications: Other eczema Apply to affected area once daily. Rash of feet, lower legs. 45 g 05/28/2025 Active Nicotine (2 sources) Cholinergic Nicotinic Agonist Start: 022 apply 1 dose transdermal route once daily, then apply 1 dose transdermal route once daily Nicotine Active 0 TD .COMPLEX 56 August 03, 2022 11:00pm apply 1-21 mg NICOTINE PATCH daily for 28 days; follow with 1-14 mg PATCH daily for 14 days, then 1-7mg PATCH daily for 14 days transdermal nystatin [id number] unt/ml oral suspension (20 sources) Polyene Antifungal Start: 024 nystatin (MYCOSTATIN) 100,000 unit/mL suspension Indications: Thrush [...] take 1 capsule by mouth once daily Start: 06-19-2023 End: 01-06-2025 take 1 capsule [...] once daily. Take 1 capsule by mo [facility] twice daily. predniSONE 20 mg oral tablet [...] Discontinued 40 mg PO DAILY 20 10 September 17, 2024 1:00am October 27, 2024 3:48pm copd Start: 08-30-2024 End: 09-04-2024 take 4 tablets by mouth once daily predniSONE (DELTASONE) 10 mg tablet Take 4 tablets by mouth once daily for 5 days. 20 tablet 08/30/2024 09/04/2024 Active Start: 05-27-2024 End: 07-23-2024 take 4 tablets by mouth once daily, [...] mg tablet Discontinued 60 mg PO daily March 13, 2023 12:00am March 17, 2023 [...] Disc ontinued 10 mg PO daily 30 September 18, 2020 1:00am October 05, 2020 [...] tablet (20 sources) HMG-CoA Reductase Inhibitor Start: 07-13-2019 End: 07-14-2025 take 1 tablet by mouth at bedtime Start: 12-24-2018 End: 03-30-2020 take 1 tablet [...] 1 tablet by bianka th once daily. traMADol hydrochloride 50 mg oral tablet (3 sources) Opioid Agonist Start: 07-21-2025 take 1 tablet by mouth every eight hours as needed for pain Start: 07-07-2025 End: 07-14-2025 take 1 tablet by mouth every eight hours as needed for pain traMADol (ULTRAM) 50 mg tablet Indications: Acute right hip pain Take 1 tablet by mouth every 8 hours as needed for pain for up to 7 days. 12 tablet 07/07/2025 07/14/2025 Active TRELEGY ELLIPTA 200-62.5-25 mcg inhalation powder (6 sources) take 1 puff(s) by inhalation once daily TRELEGY ELLIPTA 200-62.5-25 mcg inhalation powder Indications: COPD (chronic obstructive pulmonary disease) with chronic bronchitis (HCC) Inhale 1 puff as instructed once daily. Active Completed/Discontinued Medications Medication Drug Class(es) Dates Sig (Normalized) Sig (Original) acetaminophen 325 mg / oxyCODONE hydrochloride 5 mg oral tablet (16 sources) Opioid Agonist Start: 12-02-2022 End: 12-22-2022 Oxycodone-Acetaminoph en 5-325 mg tablet Discontinued 1 - 2 {tbl} PO EVERY 6 HOURS as needed for pain 14 3 0 December 02, 2022 December 22, 2022 4:03pm Postoperative pain Other acute postprocedural pain Start: 12-02-2022 End: 12-22-2022 take 1 tablet by mouth every six hours Oxycodone-Acetaminophen Discontinued 1 - 2 TABLET PO EVERY 6 HOURS 14 3 December 02, 2022 December 22, 2022 3:03pm albuterol 0.833 mg/ml / ipratropium bromide 0.167 [...] instr ucted every 6 hours as needed. amoxicillin 875 mg / clavulanate 125 mg oral tablet (6 sources) Penicillin-class Antibacterial Start: 09-12-20 End: 10-27-20 24 Amoxicillin-Pot Clavulanate 875-125 mg tablet Discontinued 1 {tbl} PO TWICE A DAY 20 September 12, 2024 1:00am October 27, 2024 3:47pm amylase [id number] unt / lipase [id number] unt / protease [id number] unt delayed release oral capsule (13 sources) Start: 04-20-20 End: 03-18-20 24 take [id number] capsules by mouth three times daily at mealtime Zqxogv-Pytzexqb-Neha ase (Creon) 36,000-114,000- 180,000 unit capsule,delayed release(DR/EC) Discontinued 1 NMA PO THREE TIMES A DAY April 20, 2023 12:00am March 18, 2024 2:23pm administer with meals and/or snacks ascorbic acid 1000 mg oral tablet (1 source) Vitamin C End: 05-05-20 21 take 1 tablet by mouth once daily Ascorbic Acid (VITAMIN C) 1,000 mg tablet Take 1,000 mg by mouth once daily. 05/05/2021 Discontinued aspirin 81 mg delayed release oral tablet (20 sources) Platelet Aggregation Inhibitor, Nonsteroidal Anti-inflammatory Drug Start: 03-18-20 End: 07-30-20 Aspirin (Adult Low Dose Aspirin) 81 mg [...] tablet (20 sources) HMG-CoA Reductase Inhibitor Start: 04-23-20 End: 04-24-20 take 1 tablet by mouth at bedtime Atorvastatin 80 mg tablet Discontinued 80 mg PO AT BEDTIME April 23, 2018 12:00am April 24, 2018 9:47am betamethasone 3 mg/ml / betamethasone acetate 3 mg/ml injectable suspension (2 sources) Corticosteroid Start: 07-08-20 End: 07-08-20 betamethasone acetate-betamethason e sodium phosphate 6 mg injection (CELESTONE) Start: 07-08-2025 End: 07-08-2025 6 mg, Injection - FOR ORTHO USE ONLY, ONCE, 1 dose, Starting on Mon07/08/25 at 1031, Until Mon07/08/25 at 1031 30 ml bupivacaine hydrochloride 5 mg/ml injection (2 sources) Amide Local Anesthetic Start: 07-08-2025 End: 07-08-2025 BUPivacaine (PF) 0.5 % (5 mg/mL) 4 mL injection Start: 07-08-2025 End: 07-08-2025 4 mL, Injection - FOR ORTHO USE ONLY, ONCE, 1 dose, Starting on Mon07/08/25 at 1031, Until Mon07/08/25 at 1031 12 hr buPROPion hydrochloride 150 mg extended release oral tablet (5 sources) Aminoketone Start: 01-08-2025 End: 05-28-2025 take 1 tablet by mouth twice daily buPROPion SR (WELLBUTRIN SR) 150 mg 12 hr tablet Indications: Tobacco use disorder Take 1 tablet by mouth two times a day. 180 tablet 1 01/30/2025 05/28/2025 Discontinued cholecalciferol 0.05 mg oral capsule (20 sources) Vitamin D Start: 04-23-2018 End: 04-24-2018 take 1 capsule by mouth once daily Cholecalciferol (Vitamin D3) 2,000 unit capsule Discontinued 2000 U PO daily April 23, 2018 12:00am April 24, 2018 9:06am cholecalciferol, vitamin D3, (VITAMIN D3 ORAL) (11 sources) End: 05-09-2022 cholecalciferol, vitamin D3, (VITAMIN D3 ORAL) Take by mouth once daily. 05/09/2022 Discontinued (Course of therapy completed) cholecalciferol, vitamin D3, (VITAMIN D3 ORAL) Take by mouth once daily. 0 Active Comment on above: Take by mouth once d aily. clopidogrel 75 mg oral tablet (20 sources) P2Y12 Platelet Inhibitor Start: End: take 1 tablet by mouth once daily Clopidogrel (Plavix) 75 mg tablet Discontinued 75 mg PO DAILY September 30, 2021 10:21am October 04, 2021 4:40pm anti platelet Comment on above: Take 75 mg by mouth once daily. Take 1 tablet by bianka once daily. clotrimazole 10 mg oral lozenge (4 sources) Azole Antifungal Start: End: Clotrimazole 10 mg eric Discontinued 10 mg MUCOUS MEM 5 TIMES DAILY 70 14 0 May 05, 2025 12:00am May 18, 2025 12:00am May 19, 2025 12:09am cyclobenzaprine hydrochloride 10 mg oral tablet (20 [...] take 1 tablet by mouth once daily Ezetimibe (Zetia) 10 mg tablet Discontinued 10 mg PO DAILY March 18, 2024 12:00am October 27, 2024 3:47pm Comment on above: Take 1 tablet by bianka once daily. Fluad Quad [id number](65yr up)(PF) 60 mcg (15 mcg x 4)/0.5mL IM syringe (flu vac (2 sources) Start: End: Fluad Quad (65yr up)(PF) 60 mcg (15 mcg x 4)/0.5mL IM syringe (flu vac Discontinued 60 MCG IM ONCE 0.5 August 05, 2021 12:28pm August 05, 2021 2:39pm 30 actuat fluticasone furoate 0.1 mg/actuat / vilanterol 0.025 mg/actuat dry powder inhaler (20 sources) Corticosteroid, beta2-Adrenergic Agonist Start: End: Fluticasone Furoate-Vilanterol (Breo Ellipta) 100-25 mcg/dose blister with device Discontinued 1 NMA INHALATION DAILY 60 February 02, 2022 12:00am March 07, 2022 [...] 22, 2018 11:00pm April 23, 2018 6:47am Dsmzcswwvat-Hnkrhbvzl-Dnubcm er (4 sources) Start: 05-05-2025 End: 07-21-2025 Nqxkazlvtij-Rtezxogzn-Gxtcea er (Trelegy Ellipta) 200-62.5-25 mcg blister with device Discontinued 1 NMA INHALATION daily May 05, 2025 12:00am July 21, 2025 8:06am Start: 05-05-2025 Fluticasone-Um eclidin-Vilanter (Trelegy Ellipta) 200-62.5-25 mcg blister with device Active 1 NMA INHALATION daily May 05, 2025 12:00am hydroCHLOROthiazide 25 mg oral tablet (20 sources) [...] 09-09-2024 take 1 tablet by mouth once daily Isosorbide Mononitrate 30 mg tablet extended release 24 hr Discontinued 0 .ROUTE .COMPLEX 90 September 25, 2023 9:20am September 09, 2024 5:22pm TAKE 1 TABLET BY MOUTH EVERY DAY Comment on above: Take 30 mg by mouth once daily. 10 ml lidocaine hydrochloride 10 mg/ml injection (6 sources) Antiarrhythmic, Amide Local Anesthetic Start: 07-08-2025 End: 07-08-2025 lidocaine (PF) 10 mg/mL (1 %) 4 mL injection (XYLOCAINE) Start: 07-08-2025 End: 07-08-2025 4 mL, Injection - FOR ORTHO USE ONLY, ONCE, 1 dose, Starting on Mon07/08/25 at 1031, Until Mon07/08/25 at 1031 Start: 07-13-2022 apply 1 dose topically once da edwar Lidocaine (Lidoderm) 5 % adhesive patch,medicated Active 1 PATCH TOPICAL DAILY July 13, 2022 5:13pm leave on most painful area for up to 12 hrs methylPREDNISolone 4 mg oral tablet (10 sources) Corticosteroid Start: 07-21-2023 End: 07-27-2023 take 1 tablet by mouth once Methylprednisolone (Medrol (Trey)) 4 mg tablets,dose pack Discontinued 4 mg PO per package directions 21 6 0 July 21, 2023 12:00am July 26, 2023 12:00am July 27, 2023 12:04am nitroglycerin 0.4 mg sublingual tablet (20 sources) Nitrate Vasodilator Start: 09-14-2021 End: 02-01-2022 Nitroglycerin 0.4 mg tablet, sublingual Discontinued 0.4 [...] on above: Take 2 capsules by m out once daily. Take 1 capsule by mo [facility] once daily. oxaprozin 600 mg oral tablet [...] 2021 1:08pm revefenacin 0.0583 mg/ml inhalation solution (10 sources) Start: 2022 End: 2023 Revefenacin (Yupelri) 175 mcg/3 mL solution for nebulization Discontinued 175 ug INHALATION DAILY 90 July 28, 2023 12:00am November 23, 2023 7:58am Chronic obstructive pulmonary disease, unspecified roflumilast 0.5 mg oral tablet (20 sources) Phosphodiesterase 4 Inhibitor Start: 2023 [...] November 23, 2023 6:56am Start: 02-03-2023 End: 03-18-2024 take 1 tablet by mouth once daily Roflumilast (Daliresp) 500 mcg tablet Discontinued 500 ug PO DAILY 28 09November 23, 2023 7:56am March 18, 2024 2:22pm Start: 02-03-2023 End: 11-23-2023 take 1 tablet [...] 2.5 ug by inhalation once daily Tiotropium [place] (Spiriva Respimat) 2.5 mcg/actuation mist Discontinued 2 NMA INHALATION daily November 05, 2024 1:00am May 05, 2025 1:04pm Start: 07-30-2024 End: 10-27-2024 take 2.5 ug by inhalation once daily Tiotropium [place] (Spiriva Respimat) 2.5 mcg/actuation mist Discontinued 2 NMA INHALATION daily 11 09July 30, 2024 12:00am October 27, 2024 3:49pm administer at approximately the same time(s) each day Start: 04-11-2023 End: 11-23-2023 take 2.5 ug by inhalation once daily Tiotropium [place] (Spiriva Respimat) 2.5 mcg/actuation mist Discontinued 2 NMA INHALATION daily 11 04April 11, 2023 12:00am November 23, 2023 7:38am administer at approximately the same time(s) each day Start: 05-25-2022 End: 08-04-2022 take 2.5 ug by inhalation once daily in the morning Tiotropium [place] (Spiriva Respimat) 2.5 mcg/actuation mist Discontinued 2 NMA INHALATION EVERY MORNING 4 May 25, 2022 12:00am August 04, 2022 12:53pm Start: 05-25-2022 End: 08-04-2022 take 2.5 ug by inhalation once daily in the morning Tiotropium [place] (Spiriva Respimat) 2.5 mcg/actuation mist Discontinued 2 NMA INHALATION EVERY MORNING May 25, 2022 12:00am August 04, 2022 12:53pm Start: 05-25-2022 End: 08-04-2022 take 1 puff(s) by inhalation once daily in the morning Tiotropium [place] (Spiriva Respimat) 2.5 mcg/actuation mist Discontinued 2 PUFF INHALATION EVERY MORNING May 25, 2022 12:00am August 04, 2022 12:53pm Start: 05-25-2022 End: 08-04-2022 take 1 puff(s) by inhalation once daily in the morning Tiotropium [place] (Spiriva Respimat) 2.5 mcg/actuation mist Discontinued 2 PUFF INHALATION EVERY MORNING May 24, 2022 11:00pm August 04, 2022 11:53am Start: 05-25-2022 take 1 puff(s) by in halation once daily in the morning Tiotropium [place] (Spiriva Respimat) 2.5 mcg/actuation mist Active 2 PUFF INHALATION EVERY MORNING May 25, 2022 12:00am Start: 09-28-2020 End: 08-05-2021 take 2.5 ug by inhalation once daily Tiotropium [place] (Spiriva Respimat) 2.5 mcg/actuation mist Discontinued 2 NMA INHALATION daily 3 3 October 27, 2020 12:19pm August 05, 2021 1:06pm administer at approximately the same time(s) each day Start: 09-28-2020 End: 08-05-2021 take 1 puff(s) by inhalation once daily Tiotropium [place] (Spiriva Respimat) 2.5 mcg/actuation mist Discontinued 2 PUFF INHALATION daily 3 October 27, 2020 11:19am August 05, 2021 [...] Abdominal discomfort; Translations: [Unspecified abdominal pain] Episodic Biliary tract disease (20 sources) Gallstone; Translations: [Calculus of gallbladder without cholecystitis without obstruction] Episodic Calculus of urinary tract (20 sources) Kidney stone; Translations: [Calculus of kidney] 05-17-2021 Episodic Cardiac dysrhythmias (14 sources) Multiple premature ventricular complexes; Translations: [Ventricular [...] ISR on 11/12/[address] Ulrich of [facility];PTCA to distal RCA, PCI/stent to proximal rPDA, PTCA of distal LCx and OM2 ISR on 11/12/[address] Ulrich of [facility]; Coronary atherosclerosis and other heart disease (20 sources) Coronary arteriosclerosis; Translations: [Atherosclerotic heart disease of [place] coronary artery without angina pectoris] Onset: 2 10-07-2013 Chronic Comment on above: PCI-JOEY-CX w/ 2.75 x 18 Promus 06/19/2008PCI-Stent to RCA w/ BX Velocity in 2000, [id number] w/ 2.75 x 20 mm Taxus and distally w/ 3.0 x 15 mm Steam Table Worker Stent 01/05/2006CABG x 2 STEPHENS-LAD, SVG-D1 10/14/96 SVG-D1 is occludedPTCA to distal RCA, PCI/stent to proximal rPDA, PTCA of distal LCx and OM2 ISR on 11/12/[address] Ulrich of [facility]; Atherosclerosis of n ative coronary artery and coronary artery bypass graft Diabetes mellitus without complication (1 source) Disorder of glucose metabolism; Translations: [Other abnormal glucose] 08-12-2024 Episodic Disorders of lipid metabolism (20 sources) Hyperlipidemia; [...] virus with other respiratory manifestations] Episodic Mycoses (10 sources) Candidiasis of mouth; Translations: [Candidal stomatitis] Episodic Nonspecific chest pain (1 source) Chest wall pain; Translations: [Other chest pain] 08-12-2024 Episodic Open wounds of head; neck; and trunk (8 sources) Laceration of forehead; Translations: [Laceration without foreign body of other part of head, initial encounter] 10-27-2024 Episodic Osteoarthritis (20 sources) Osteoarthritis of knee; Translations: [Unilateral primary osteoarthritis, unspecified knee] Onset: 2 Resolved: 5 05-08-2012 Chronic Other circulatory disease (1 source) Other specified disorders of arteries and arterioles; Translations: [Other specified disorders of arteries and arterioles] Onset: 5 Chronic Other circulatory disease (6 sources) H/O: hypertension; Translations: [Personal history of other diseases of the circulatory system] 09-25-2024 Episodic Other connective tissue disease (5 sources) Pain in lower limb; Translations: [Pain in right leg] 03-18-2024 Episodic Other connective tissue disease (1 source) Calcific tendinitis of right hip; Translations: [Calcific tendinitis, right thigh] 07-07-2025 Episodic Other connective tissue disease (1 source) Trochanteric bursitis of right hip; Translations: [Trochanteric bursitis, right hip] 07-08-2025 Episodic Other connective tissue disease (1 source) Rupture of quadriceps tendon Episodic Other connective tissue disease (1 source) Pain in bilateral legs; Translations: [Pain in right leg] 03-18-2024 Episodic Other connective tissue disease (1 source) Trochanteric bursitis, right hip; Translations: [Trochanteric bursitis of right hip] Onset: 5 Episodic Other diseases of kidney and ureters (1 source) Renal impairment; Translations: [Disorder of kidney and ureter, unspecified] 01-08-2025 Episodic Other diseases of kidney and ureters (8 sources) Acute renal insufficiency; Translations: [Disorder of kidney and ureter, unspecified] 10-27-2024 Episodic Other gastrointestinal disorders (20 sources) Constipation; Translations: [Constipation, unspecified] 10-25-2022 Episodic Other gastrointestinal disorders (6 sources) Constipation, unspecified; Translations: [Constipation, unspecified] Episodic Other gastrointestinal disorders (15 sources) Abdominal bloating; Translations: [Abdominal distension (gaseous)] 02-21-2023 Episodic Other lower respiratory disease (20 sources) Nodule of lung; Translations: [Solitary pulmonary nodule] Onset: 05-05-2021 Episodic Other lower respiratory disease (20 [...] unspecified] 11-02-2022 Episodic Other lower respiratory disease (20 sources) Hypoxia; Translations: [Hypoxemia] 10-28-2022 Episodic Other lower respiratory disease (1 source) Other forms of dyspnea; Translations: [Other respiratory abnormalities] 11-10-2023 Episodic Other lower respiratory disease (1 source) Respiratory tract infection; Translations: [Other specified respiratory disorders] 08-25-2024 Episodic Other lower respiratory disease (10 sources) Productive cough ; Translations: [Cough productive of purulent sputum] 01-08-2025 Episodic Other non-traumatic joint disorders (1 source) Shoulder pain; Translations: [Pain in right shoulder] Episodic Other non-traumatic joint disorders (1 source) Pain in right shoulder; Translations: [Pain in joint, shoulder region] 11-22-2022 Episodic Other non-traumatic joint disorders (8 sources) Hip pain; Translations: [Pain in right hip] 07-03-2025 Episodic Other non-traumatic joint disorders (2 sources) Pain in right hip; Translations: [Acute right hip pain] Onset: Episodic Other screening for suspected conditions (not mental disorders or infectious disease) (1 source) Encounter for screening for other musculoskeletal disorder; Translations: [Encounter for screening for other musculoskeletal disorder] Onset: 5 Episodic Other skin disorders (2 sources) Cyst of skin; Translations: [Follicular cyst of the skin and subcutaneous tissue, unspecified] 05-29-2023 Episodic Other upper respiratory infections (20 sources) Acute upper respiratory infection; Translations: [Acute upper respiratory infection, unspecified] 07-21-2023 Episodic Pancreatic disorders (not diabetes) (18 sources) Exocrine pancreatic insufficiency; Translations: [Exocrine pancreatic [...] non-obstructive alveolar hypoventilation] Chronic Residual codes; unclassified (7 sources) Obstructive sleep apnea syndrome; Translations: [Obstructive sleep apnea (adult) (pediatric)] 01-20-2025 Chronic Residual codes; unclassified (20 sources) History of partial resection of colon; Translations: [Acquired absence of other specified parts of digestive tract] 11-24-2022 Episodic Comment on above: 2012 Residual codes; unclassified (7 sources) Acquired absence of other specified parts of digestive tract; Translations: [Acquired absence of intestine (large) (small)] Episodic Residual codes; unclassified (10 sources) Edema of lower extremity; Translations: [Localized edema] 01-08-2025 Episodic Residual codes; unclassified (1 source) Other specified personal risk factors, not elsewhere classified; Translations: [23-polyvalent pneumococcal polysaccharide vaccine indication of chronic obstructive pulmonary disease in patient 6 to 64 years of age ([facility])] Onset: 5 Episodic Respiratory failure; insufficiency; arrest (adult) (20 sources) [id number] respiratory failure; Translations: [Acute and chronic respiratory failure with hypoxia] Onset: 3 11-07-2022 Chronic Spondylosis; intervertebral disc disorders; other back problems (20 sources) Degeneration of lumbar intervertebral disc; Translations: [Other intervertebral disc degeneration, lumbar region] Onset: 4 Resolved: 8 12-13-2013 Chronic Sprains and strains (3 sources) Shoulder strain; Translations: [Strain of unspecified muscle, fascia and tendon at shoulder and upper arm level, right arm, initial encounter] Episodic Substance-related disorders (20 sources) Tobacco user; Translations: [Nicotine dependence, unspecified, uncomplicated] Onset: 2 10-25-2021 Chronic Comment on above: 1/2 pack/day Superficial injury; contusion (20 sources) Contusion of rib; Translations: [Contusion of unspecified front wall of thorax, initial encounter] Episodic Transient cerebral ischemia (13 sources) Transient cerebral ischemia; Translations: [Transient cerebral ischemic attack, unspecified] 08-07-2023 Chronic Unclassified (20 sources) High Risk Chronic Disease Home Monitoring Problem Onset: 3 03-16-2023 Unclassified (1 source) S76.811A - Strain of other specified muscles, fascia and tendons at thigh level, right thigh, initial encounter Unclassified (1 source) Other specified cough; Translations: [Other specified cough] Onset: 5 Viral infection (1 source) COVID-19; Translations: [COVID-19] Onset: 2 Past or Other Problems Problem Classification Problem Date Documented Da te Episodic/Chronic Allergic reactions (8 sources) Eczema; Translations: [Other specified dermatitis] Onset: 05-28-2025 05-28-2025 Episodic Cardiac dysrhythmias (20 sources) Tachycardia; Translations: [Tachycardia, unspecified] Onset: 09-12-2024 08-07-2023 Episodic Complication of device; implant or graft (20 sources) Significant coronary bypass graft disease; Translations: [Other mechanical complication of coronary artery bypass graft, initial encounter] Onset: 05-08-2015 05-08-2015 Episodic Coronary atherosclerosis and other heart disease (20 sources) Stented coronary artery; Translations: [Presence of coronary angioplasty implant and graft] Onset: 05-08-2015 05-08-2015 Episodic Comment on above: Distal RCA: PTCA wit h a 3.5 mm balloonRight PDA proximal portion: PCI with a 2.75 x 15 mm Xience Skypoint JOEY (postdilated with a 3.0 NC); LCx distal into OM 2: PTCA with a 2.75 mm NC balloon0 per cardiac cath @ 11/12/21; JOEY to RCA as described with residual narrowing per cath 09/29/21; PCI-JOEY-CX w/ 2.75 x 18 Promus 06/19/2008PCI-Stent to RCA w/ BX Velocity in 2000, [id number] w/ 2.75 x 20 mm Taxus and distally w/ 3.0 x 15 mm Steam Table Worker Stent 01/05/2006PTCA to distal RCA, PCI/stent to proximal rPDA, PTCA of distal LCx and OM2 ISR on 11/12/[address] Ulrich of [facility]; Diverticulosis and diverticulitis (20 sources) Diverticulitis; Translations: [Diverticulitis of intestine, part unspecified, without perforation or abscess without bleeding] Onset: 08-20-2012 Resolved: 01-09-2014 01-09-2014 Chronic Other connective tissue disease (20 sources) Dupuytren contracture of right palm; Translations: [Palmar fascial fibromatosis [Dupuytren]] Onset: 11-05-2015 11-05-2015 Episodic Other connective tissue disease (20 sources) Bilateral achilles tendonitis; Translations: [Achilles tendinitis, right leg] Onset: 06-23-2020 Resolved: 05-28-2025 06-23-2020 Episodic Other connective tissue disease (1 source) Palmar fascial fibromatosis [Dupuytren]; Translations: [Dupuytren's contracture of right hand] Onset: 11-05-2015 Episodic Other diseases of kidney and ureters (2 sources) Disorder of kidney and ureter, unspecified; Translations: [Disorder of kidney and ureter, unspecified] Onset: 10-31-2024 Episodic Other lower respiratory disease [...] use] Onset: 11-06-2015 Resolved: 11-15-2016 11-15-2016 Episodic Screening and history of mental health and substance abuse codes (7 sources) Patient encounter status; Translations: [Encounter for screening for depression] Onset: 05-28-2025 05-27-2024 Episodic Spondylosis; intervertebral disc disorders; other back problems (20 sources) Sciatica; Translations: [Sciatica, unspecified side] Onset: 06-21-2012 Resolved: 04-17-2018 04-29-2015 Episodic Syncope (20 sources) Syncope and collapse; Translations: [Tussive syncope] Onset: 07-15-2022 Episodic Unclassified (1 source) Patient encounter status 07-15-2025 Results Test Name Value Interpretation Reference Range Facility OV 08-18-2025 CNOV Office Visit ([facility] ) -------- HORACE HENDERSON ([id number]) 1955 M Date Time Provider Department 08/18/25 1:00 PM SARITHA GREENWOOD During your visit today, we recorded the following information about you: Jessie Sullivan MA 08/18/2025 2:02 PM Signed Patient presents with: Right Hand - New: Dupuytren's contracture right hand Last seen 01/28/21 S/P left CTR (12/17/20) AMB ROOMING INTAKE FLOWSHEET DATA Patient here for evaluation Dupuytrens contracture right 4th finger. Patient had Xiaflex injection in 10/17. Patient states his finger starting bill about a year after the injection. Patient feels it is getting worse. His left 5th finger is started to contract as well. Denies any pain. Saritha Greenwood PA-C 08/18/2025 2:02 PM Signed Saritha Greenwood PA-C Department of Orthopaedics [facility] [address] [place] [address] Dept: [phone] Dept August 18, 2025 CHIEF COMPLAINT: New of the Right Hand (Dupuytren's contracture right hand/Last seen 01/28/21 S/P left CTR (12/17/20)) 1. Dupuytren's contracture of right hand (M72.0) - Chronic, recurrent contracture with palpable cords and nodules in both hands; prior XIAFLEX injection to right ring finger 6 years ago provided temporary improvement. - Discussed treatment options: repeat XIAFLEX injection vs. surgical excision of cords (one hand at a time); explained risks of recurrence, infection, and need for hand therapy post-procedure. - Advised that surgery requires anesthesia and cannot be performed locally; XIAFLEX injections require authorization by Dr. Phillips. - Educated on the role of tobacco use in accelerating recurrence; strongly advised smoking cessation to reduce risk of recurrence. - Patient to consider options and notify via [email or web address] if wishing to proceed with XIAFLEX or surgery. ASSESSMENT: M72.0 Dupuytren's contracture of right hand PLAN: 1. Dupuytren's contracture of right hand (M72.0) - Chronic, recurrent contracture with palpable cords and nodules in both hands; prior XIAFLEX injection to right ring finger 6 years ago provided temporary improvement. - Discussed treatment options: repeat XIAFLEX injection vs. surgical excision of cords (one hand at a time); explained risks of recurrence, infection, and need for hand therapy post-procedure. - Advised that surgery requires anesthesia and cannot be performed locally; XIAFLEX injections require authorization by Dr. Phillips. - Educated on the role of tobacco use in accelerating recurrence; strongly advised smoking cessation to reduce risk of recurrence. - Patient to consider options and notify via [email or web address] if wishing to proceed with XIAFLEX or surgery. Will continue to monitor patient for Dupuytren's contracture of right hand, patient to schedule visit as per follow up discussed. Mr. Horace Henderson was advised as to contrast therapies and/or to take analgesics/anti-inflamma tories as needed and all contraindications were reviewed. OBJECTIVE: Mr. Horace Henderson is a pleasant 70 year old in no apparent distress. Gen:There were no vitals taken for this visit. nl development, non obese, no deformities ENT: Normocephalic, normal hearing, moist mucosa CV: Pulses:Radial= 2+ and symmetric, capillary refill < 2 secs, no peripheral edema/varicosities Skin: no rash, bruising or lesions. Good turgor. Psych: cooperative and appropriate, alert and oriented x 3, good mood and affect. Musculoskeletal: Right ring finger with a Dupuytren's cord formation starting at the palmar crease extending up to the right ring middle phalanx, cord is slightly radial in the digit, there is some nodules present over the flexor aspect of the middle phalanx. Contracture of the PIP joint, about 45 degrees of flexion, no contracture at the MCP or DIP noted. Left pinky digit with a cord formation from the palmar crease extending up into the base of the left pinky digit, some centralized nodule formation about the proximal phalanx. Contracture of the left pinky MCP of about 25 degrees, no contracture noted at the PIP or DIP joints. There is a second cord extending from the palmar crease just about to the base of the index digit. Imaging: Deferred today. Supporting Subjective Information Below: Past Surgical History: PAST SURGICAL HISTORY Procedure Laterality Date ANESTH OPEN/SURG ARTHRS TOTAL KNEE ARTHROPLASTY 10/10/2013 LEFT APPENDEC INDICATED PURPOSE OTH MAJOR PX NOT SPX 08/12/2012 CABG (2) VEIN GRAFTS AND ARTERIAL GRAFT(S 10/14/1996 SVG to diagonal. STEPHENS to L[facility]. [facility]. CC CORONARY STENT 09/29/2021 Biotronik 2.5x22 mm to distal RCA, biotronik 3.0 x 30 mm to proximal RCA COLECTOMY PARTIAL W/ANASTOMOSIS 08/12/2012 COLONOSCOPY FLX DX W/COLLJ SPEC WHEN PFRMD 07/12/2012 Colonoscopy COLONOSCOPY FLX DX W/COLLJ SPEC WHEN PFRMD 06/22/2021 C (more content not included)... Normal [facility] CBC W Auto Differential pane l (Bld)on 08-15-2025 Basophils (Bld) [#/Vol] 0.06 10*3/uL Normal <0.11 [facility] Comment on above: Order Comment: Speci men Type: BLOOD SPECIMEN Ordering Facility: Neptali Orellana MD Address: [address] [place] [address] Performed By: #### 5 7021-8 #### [facility] CLIA [id number] [address] [place] [address] [place] Basophils/100 WBC (Bld) 0.7 % Normal [facility] Comment on above: Order Comment: Speci men Type: BLOOD SPECIMEN Ordering Facility: Neptali Orellana MD Address: [address] [place] [address] Performed By: #### 5 7021-8 #### [facility] [id number] [address] [place] [address] [place] Differential cell count method Nom (Bld) Auto Normal [facility] Comment on above: Order Comment: Speci men Type: BLOOD SPECIMEN Ordering Facility: Neptali Orellana MD Address: [address] [place] [address] Performed By: #### 5 7021-8 #### [facility] [id number] [address] [place] [address] [place] Eosinophils (Bld) [#/Vol] 0.12 10*3/uL Normal <0.46 [facility] Comment on above: Order Comment: Speci men Type: BLOOD SPECIMEN Ordering Facility: Neptali Orellana MD Address: [address] [place] [address] Performed By: #### 5 7021-8 #### [facility] CLIA [id number] [address] [place] [address] [place] Eosinophils/100 WBC (Bld) 1.3 % Normal [facility] Comment on above: Order Comment: Speci men Type: BLOOD SPECIMEN Ordering Facility: Neptali Orellana MD Address: [address] [place] [address] Performed By: #### 5 7021-8 #### [facility] CLIA [id number] [address] [place] [address] [place] Erythrocyte distribution width (RBC) [Ratio] 14.3 % Normal 11.5-15.0 [facility] Comment on above: Order Comment: Speci men Type: BLOOD SPECIMEN Ordering Facility: Neptali Orellana MD Address: [address] [place] [address] Performed By: #### 5 7021-8 #### [facility] CLIA [id number] [address] [place] [address] [place] Hematocrit (Bld) [Volume fraction] 45.1 % Normal 39.0-51.0 [facility] Comment on above: Order Comment: Speci men Type: BLOOD SPECIMEN Ordering Facility: Neptali Orellana MD Address: [address] [place] [address] Performed By: #### 5 7021-8 #### [facility] [id number] [address] [place] [address] [place] Hemoglobin (Bld) [Mass/Vol] 15.8 g/dL Normal 13.0-17.0 [facility] Comment on above: Order Comment: Speci men Type: BLOOD SPECIMEN Ordering Facility: Neptali Orellana MD Address: [address] [place] [address] Performed By: #### 5 7021-8 #### [facility] [id number] [address] [place] [address] [place] Immature granulocytes (Bld) [#/Vol] 0.03 10*3/uL Normal <0.10 [facility] Comment on above: Order Comment: Speci men Type: BLOOD SPECIMEN Ordering Facility: Neptali Orellana MD Address: [address] [place] [address] Performed By: #### 5 7021-8 #### [facility] [id number] [address] [place] [address] [place] Immature granulocytes/100 WBC (Bld) 0.3 % Normal [facility] Comment on above: Order Comment: Speci men Type: BLOOD SPECIMEN Ordering Facility: Neptali Orellana MD Address: [address] [place] [address] Performed By: #### 5 7021-8 #### [facility] CLIA [id number] [address] [place] [address] [place] Lymphocytes (Bld) [#/Vol] 1.37 10*3/uL Normal 1.00-4.00 [facility] Comment on above: Order Comment: Speci men Type: BLOOD SPECIMEN Ordering Facility: Neptali Orellana MD Address: [address] [place] [address] Performed By: #### 5 7021-8 #### [facility] CLIA [id number] [address] [place] [address] [place] Lymphocytes/100 WBC (Bld) 15.0 % Normal [facility] Comment on above: Order Comment: Speci men Type: BLOOD SPECIMEN Ordering Facility: Neptali Orellana MD Address: [address] [place] [address] Performed By: #### 5 7021-8 #### [facility] CLIA [id number] [address] [place] [address] [place] MCH (RBC) [Entitic mass] 34.0 pg Normal 26.0-34.0 [facility] Comment on above: Order Comment: Speci men Type: BLOOD SPECIMEN Ordering Facility: Neptali Orellana MD Address: [address] [place] [address] Performed By: #### 5 7021-8 #### [facility] CLIA [id number] [address] [place] [address] [place] MCHC (RBC) [Mass/Vol] 35.0 g/dL Normal 30.5-36.0 [facility] Comment on above: Order Comment: Speci men Type: BLOOD SPECIMEN Ordering Facility: Neptali Orellana MD Address: [address] [place] [address] Performed By: #### 5 7021-8 #### [facility] CLIA [id number] [address] [place] [address] [place] MCV (RBC) [Entitic vol] 97.0 fL Normal 80.0-100.0 [facility] Comment on above: Order Comment: Speci men Type: BLOOD SPECIMEN Ordering Facility: Neptali Orellana MD Address: [address] [place] [address] Performed By: #### 5 7021-8 #### [facility] CLIA [id number] [address] [place] [address] [place] Monocytes (Bld) [#/Vol] 0.93 10*3/uL High <0.87 [facility] Comment on above: Order Comment: Speci men Type: BLOOD SPECIMEN Ordering Facility: Neptail Orellana MD Address: [address] [place] [address] Performed By: #### 5 7021-8 #### [facility] [id number] [address] [place] [address] [place] Monocytes/100 WBC (Bld) 10.2 % Normal [facility] Comment on above: Order Comment: Speci men Type: BLOOD SPECIMEN Ordering Facility: Neptali Orellana MD Address: [address] [place] [address] Performed By: #### 5 7021-8 #### [facility] CLIA [id number] [address] [place] [address] [place] Neutrophils (Bld) [#/Vol] 6.60 10*3/uL Normal 1.45-7.50 [facility] Comment on above: Order Comment: Speci men Type: BLOOD SPECIMEN Ordering Facility: Neptali Orellana MD Address: [address] [place] [address], [place] [address] Performed By: #### 5 7021-8 #### [facility] CLIA [id number] [address] [place] [address] [place] Neutrophils/100 WBC (Bld) 72.5 % Normal [facility] Comment on above: Order Comment: Speci men Type: BLOOD SPECIMEN Ordering Facility: Neptali [facility] [place] [address] Performed By: #### 5 7021-8 #### [facility] CLIA [id number] [address] [place] [address] [place] Nucleated RBC (Bld) [#/Vol] 10*3/uL Normal <0.01 [facility] Comment on above: Order Comment: Speci men Type: BLOOD SPECIMEN Ordering Facility: Neptali Orellana MD [facility] [place] [address] Performed By: #### 5 7021-8 #### [facility] [id number] [address] [place] [address] [place] Nucleated RBC/100 WBC (Bld) [Ratio] 0.0 /100 WBC Normal [facility] Comment on above: Order Comment: Speci men Type: BLOOD SPECIMEN Ordering Facility: Neptali Orellana MD Address: [facility] [place] [address] Performed By: #### 5 7021-8 #### [facility] CLIA [id number] [address] [place] [address] [place] Platelet mean volume (Bld) [Entitic vol] 8.9 fL Low 9.0-12.7 [facility] Comment on above: Order Comment: Speci men Type: BLOOD SPECIMEN Ordering Facility: Neptali Orellana MD Address: [address] [place] [address] Performed By: #### 5 7021-8 #### [facility] CLIA [id number] [address] [place] [address] [place] Platelets (Bld) [#/Vol] 224 10*3/uL Normal 150-400 [facility] Comment on above: Order Comment: Speci men Type: BLOOD SPECIMEN Ordering Facility: Neptali Orellana MD Address: [address] [place] [address] Performed By: #### 5 7021-8 #### [facility] CLIA [id number] [address] [place] [address] [place] RBC (Bld) [#/Vol] 4.65 10*6/uL Normal 4.20-6.[address] [facility] Comment on above: Order Comment: Speci men Type: BLOOD SPECIMEN Ordering Facility: Neptali Orellana MD Address: [address] [place] [address] Performed By: #### 5 7021-8 #### [facility] CLIA [id number] [address] [place] [address] [place] WBC (Bld) [#/Vol] 9.11 10*3/uL Normal 3.70-11.[address] [facility] Comment on above: Order Comment: Speci men Type: BLOOD SPECIMEN Ordering Facility: Neptali Orellana MD Address: [address] [place] [address] Performed By: #### 5 7021-8 #### [facility] CLIA [id number] [address] [place] [address] [place] Inital Evaluation (1) - PTon 07-23-2025 Inital Evaluation (1) - PT [facility] [address] [place] [address] [address] [place] [address] / REHABILITATION SERVICES INITIAL EVALUATION MR#: [id number] Acct: [id number] Name: BALJITHORACE MARCOS Rep #: [id number] : 1955 70 From: Salvador Carter DPT, OCS, CSCS Referring Dr.: Dr. Michael Narayan DO Status: R EG RCR Insurance: MEDICARE PART A B [facility] Patient's Visit Information Visit Information Visit Information: HORACE HENDERSON is a 70 year old M referred to Physical Therapy by Dr. Michael Narayan DO with a diagnosis of R rectus femoris rupture, strain. Date of Evaluation: 07/23/25 Physical Therapist: Salvador Carter, DPT, OCS, CSCS Visit Plan Frequency: 2-3x /Week Duration: 4-6 Weeks Plan: 3x/week for 3-6 weeks IE HEP SLR abd, ext, flexion 1-3x10 R and supine edge quad stretch gently 2-3 min 2x/day. Also avoid aggravating activities and use can eto take pressure off R side. Treat with R rectus DTR origin, rollout rectus, strech gently same and gradual progressive strength painfreee and return to funciton(walking and steps) may use MH prior os ice after if needed. Leg pull Subjective Subjective: Fell 3 weeks ago adn tore tendons in R hip fornt. had a drink adn woke up and hit hurt. Could not get off floor. No rpevious hip pain. 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 Trying to stay off Leg as much as possible. Urgent care did x -ray and then Dr. Bryant gavee injection in R hip and it did not help. MRI ordered and then Yane and had torn rectus tendons. It is unchanging. Feels good sitting still. Walking is 5/10. Sleeping is OK fromt he hip. Has COPd. Travelling less at work. Hobbies include golfing but not in a year or more. Tendonitis in R achilles hurts to walk and limits him and he has had therapy for that. uses cane since last week. balanc is Ok otherwise. Pain R hip: Pain Intensity (Out of 10): 0 Pain Intensity Range: 0 and 5 Objective Objective: Walks with R antalgia and cane in R UE, too awkward to use in L UE. No pain walking today but SOB quickly with 200 feet. Slow and lacks weight shift and confidence. Trasnfer bed and chair I. Steps 3 without pain and two rails. Tender to palpation R ASIS and into reectus femoris. No pain with slow SLR, pain with strtching gently that mm. + R FADDIr and scour and limited IR and abd on R. AROM ER R 30+, l 40, IR 0 r and 5 L. flexion 90 R and 100 L, extension barely to neutral B. knee adn ankle WFL B. rflexs 2/3 B patella dn achills Sensation LE WNL to gross light touch. Able to heel raise and toe raise in standing. strength hip ext 3, abd 3 B, flxion 3 R and 3+ L. knee ext 3+ B no pain, knee flexion 4- B no pain. ankles 4 B no pain. 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 Balance/Special Test Scores Functional Gait Assessment Score: 20 % Disability: 33.3400 Lower Extremity Functional Score: 30 Goals Goal 1:: I appropriate HEEP to limit future problems with pain and hip OA Goal Time Frame: 4-6 Weeks Goal 2:: Pain in R hip 1/10 at worst adn 80% better Goal Time Frame: 4-6 Weeks Goal 3:: walk without pain into and out of PT with LRD Goal Time Frame: 4-6 Weeks Goal 4:: LEFS score 40 Goal Time Frame: 4-6 Weeks Goal 5:: back to all home activities including yard work without pain Goal Time Frame: 4-6 Weeks Rehabilitation Potential Physical Therapy Diagnosis: pain in R anterior hip limiting cofmortable funciton gait and activities. Rehabilitation Potential: Fair Anticipated Interventions Patient/Client Instruction: Educate patient on: Condition and Plan of Care For the Purpose of:: To decrease pain, To increase ROM, To improve nutrient delivery to tissue, To improve muscle performance and motor function, To increase tolerance to activity/condition/posit ion, To improve ability of physical actions for home/community/work/leis ure and To improve gait and locomotor functions Therapeutic Exercise to Include: Strength training, Postural training, Flexibilty training, Passive ROM and Active ROM For the Purpose of:: To decrease pain, To increase ROM, To improve nutrient delivery to tissue, To improve muscle performance and motor function, To increase tolerance to activity/condition/posit ion and To improve gait and locomotor functions Manual Therapy Techniques to Include: Trigger point massage, Mobilization, Passive ROM and Soft tissue mobilization For the Purpose of:: To decrease pain, To increase ROM and To improve nutrient delivery to tissue Cryotherapy (ice pack, ice massage): Yes Thermo therapy (hot pack): Yes For the Purpose of:: To decrease swelling/inflammation and To improve nutrient delivery to tissue Text: Thank you for the opportunity to evaluate your patient. For Medicare and Medicare HMO plans, please review the plan of care and approve it. It will need to be FAXED (more content not included)... Normal [facility] Orthopedic Visit Reporton Orthopedic Visit Report [facility] [address] [place] [address] OFFICE VISIT Date of Service: 07/21/25 MR#: [id number] Acct: [id number] Name: HORACE HENDERSON Rep #: [id number] : 1955 Provider: Dr. Michael handley DO Age/Sex: 70/M Location: [facility] [place] Status: Signed Intake Vital Signs 05/05/25 12:58 07/21/25 08:05 Height 5 ft 7 in 5 ft 7 in Weight: 178 lb 164 lb 6 oz BMI 27.8 25.7 BP 135/77 H Blood Pressure Location Lt brachial Position Sitting Respiration 16 Pulse 80 Pulse Source NIBP Intake Visit Reasons: RIGHT HIP Chief Complaint: Right Hip Pain Accompanied by: Self Is patient in pain?: Yes Pain scale (1-10): 4 Allergies levofloxacin (From Levaquin) Adverse Reaction (Severe, Verified 07/21/25 08:06) tendonitis Medications ???Medication ???Instructions ???Recorded ???Confirmed ???Type clopidogrel 75 mg tablet (Plavix) 75 mg PO DAILY anti platelet #90 10/04/21 07/21/25 Rx tabs albuterol sulfate 90 mcg/actuation 2 puff inhalation Q6H PRN PRN 07/21/25 Rx aerosol inhaler Shortness Of Breath #8.5 grams budesonide-formoterol HFA 160 2 puff inhalation BID #3 ea 07/21/25 Rx mcg-4.5 mcg/actuation aerosol inhaler (Symbicort) isosorbide mononitrate 30 mg 30 mg PO DAILY #90 TABLETS 4 07/21/25 Rx tablet,extended release 24 hr ipratropium 0.5 mg-albuterol 3 mg 3 ml continuous nebulization Q6H 09/10/24 07/21/25 Rx (2.5 mg base)/3 mL nebulization PRN shortness of breath or soln wheezing #180 mL metoprolol tartrate 50 mg tablet 50 mg PO BID #180 tabs 11/05/24 Rx losartan 50 mg tablet 50 mg PO QPM #30 tabs 01/08/25 Rx furosemide 40 mg tablet 20 mg PO QAM PRN 05/05/25 07/21/25 History potassium chloride 10 mEq 10 meq PO QDAY 05/05/25 07/21/25 H istory capsule,extended release rosuvastatin 40 mg tablet 40 mg PO QHS #90 tabs 07/14/25 Rx tramadol 50 mg tablet 50 mg PO Q8 PRN pain 07/21/2507/01 History Have you fallen in the past year?: Yes PFSH Medical History Essential hypertension Alcohol use [...] disease), lumbar Atherosclerosis of coronary artery of [place] heart without angina pectoris Atherosclerosis of coronary [...] History of tonsillectomy History of partial colectomy Family History Father CAD (coronary artery disease) Brother Hypertension Grandfather Pancreatic cancer Grandmother Heart disease Social History Smoking Status: Current every day smoker tobacco type: cigarettes alcohol intake: current alcohol intake frequency: 0-2 drinks per day substance use type: does not use caffeine: Yes Type: coffee Number of servings: 2 what type of physical activity do you participate in: none seatbelt use: always do you feel safe at home: Yes HPI RIGHT HIP Details: This documentation accurately reflects the service provided and the decisions made by me, Dr. Michael Narayan, DO 07/21/25 0748. Part of today???s visit was documented by Shannan Ma ATC, acting as scribe. HORACE HENDERSON is a 70 year old M new patient with medical history significant for but not limited to coronary artery disease, lower extremity edema, kidney insufficiency, history of TIA, exocrine pancreatic insufficiency, stage III COPD, MIKE, smoking greater than 30 pack years, history of coronary artery bypass surgery, here today for right hip pain. Alcohol use admits to 2 beers per day. jyoti (more content not included)... [facility] ([facility]) -------- HORACE HENDERSON ([id number]) 1955 M Date Time Provider Department 07/16/25 [facility] During your visit today, we recorded the following information about you: Rachele Coleman 07/16/2025 10:50 AM Signed Patient is requesting MRI from 07/15/2025 copied to a disk for worm picker Barbara Demarco PSS 07/16/2025 11:12 AM Signed Being pushed through to [facility] ok with pt Allergies As of Date: 07/16/2025 Noted Allergy Reaction LEVOFLOXACIN 06/01/2020 14 - Other: See Comments Comments: Tachycardia. Achilles tendonitis. Date Reviewed: 07/08/2025 Reviewed by: Jessie Sullivan MA - Fully Assessed Prescriptions as of 08/10/2025 - SEBASTIAN FUCHS 200-62.5-25 mcg inhalation powder Inhale 1 puff as instructed once daily. - clopidogrel (PLAVIX) 75 mg tablet Take 1 tablet by mouth once daily. - potassium chloride SR (MICRO-K) 10 mEq CR capsule Take 1 capsule by mouth two times a day. - furosemide (LASIX) 40 mg tablet Take 1 tablet by mouth once daily as needed (swelling.). - rosuvastatin (CRESTOR) 40 mg tablet Take 1 tablet by mouth once daily. - mometasone (ELOCON) 0.1 % cream Apply to affected area once daily. Rash of feet, lower legs. - nystatin (MYCOSTATIN) 100,000 unit/mL suspension Take [...] instructed every 6 hours as needed. - metoprolol succinate ER (TOPROL XL) 50 mg 24 hr tablet Take 1 tablet by mouth once daily. From [facility]. - losartan (COZAAR) 50 mg tablet Take 1 tablet by mouth once daily. Per [facility]. - isosorbide mononitrate ER (IMDUR) 30 mg 24 hr tablet Take 30 mg by mouth once daily. Problem List As Of Date 07/16/2025 Noted Resolved HTN (hypertension) [I10] 01/11/2012 CAD [...] Achilles tendinitis of both lower extremities [*06/23/2020 05/28/2025 Nodule of lower lobe of left lung (low dose severino*05/05/2021 Status post insertion of drug-eluting stent int*09/30/2021 Acute on chronic respiratory failure with hypox*10/30/2022 Gastroesophageal reflux disease [K21.9] 05/24/2023 Eczema [L30.9] 05/28/2025 Encounter Status:Closed by RACHELE COLEMAN on 08/10/25 Normal [facility] MR Hip - right WO contraston 07-15-2025 IMPRESSION: AVULSION OF THE RECTUS FEMORIS ORIGIN AT THE ANTERIOR INFERIOR ILIAC SPINE AND SUPERIOR ACETABULUM. LOCULATED FLUID SIGNAL ALONG THE SUPERIOR ACETABULUM AND ANTERIOR INFERIOR ILIAC SPINE WHICH LIKELY REPRESENTS A HEMATOMA. MODERATE RIGHT HIP OSTEOARTHRITIS WITH DEGENERATIVE TEARING OF THE LABRUM. MARROW EDEMA LIKE SIGNAL WITHIN THE FEMORAL NECK CONSISTENT WITH A STRESS REACTION. NO DISCRETE FRACTURE LINE. Energy Specialist: TIMOTEO Transcribe Date/Time: Jul 15 2025 10:46A Dictated by : LUIS ARMANDO JONES DO This examination was interpreted and the report reviewed and electronically signed by: LUIS ARMANDO JONES DO on Jul 15 2025 11:40AM [facility] DIVISION OF RADIOLOGY * * *Final Report* * * DATE OF EXAM: Jul 15 2025 7:33AM [facility] 0207 - MRI HIP WO IVCON RT / PROCEDURE REASON: Encounter for screening for other musculoskeletal disorder * * * * Physician Interpretation * * * * EXAMINATION: MRI HIP WO IVCON RT HISTORY: PAIN RT HIP, DIFFICULTY WALKING Encounter for screening for other musculoskeletal disorder . TECHNIQUE: MRI HIP WO IVCON RT COMPARISON: 07/03/2025 RESULT: Bone Marrow: No marrow placement process or acute fracture. Hip Joint(s): Small and irregular RIGHT acetabular labrum with fraying morphology. T2 hyperintense and fluid signal adjacent to the superior acetabular roof measuring 4.9 x 2.2 x1.8 cm. Smaller loculation posteriorly measuring 1.5 x 1.0 x 1.7 cm. Diffuse cartilage thinning with areas of full-thickness cartilage loss in the superior femoral head and acetabulum. Subchondral cystic changes in the femoral head and acetabulum. Mild marrow edema like signal within the femoral neck with a small subcortical cystic change. T1-weighted images demonstrates no discrete linear fracture line. Tear of the ligamentum teres. Moderate RIGHT hip joint effusion. Tendons: Complete avulsion of the rectus femoris direct head from the anterior inferior iliac spine. Heart high-grade partial tear versus complete tear of the indirect head from the superior acetabulum. Intact iliopsoas, rectus femoris, and hamstrings origin bilaterally. Musculature: Feathery T2 signal hyperintensity in the gluteus minimus muscle and rectus femoris muscle. Muscles otherwise demonstrate normal signal intensity and bulk throughout the pelvis. Sacroiliac joints: Maintained with normal signal. Pubic symphysis: Maintained with normal signal. Ischiofemoral Space: Maintained with normal signal. Other Pelvic Findings: No pelvic adenopathy or free fluid. DIVISION OF RADIOLOGY Provider, Jenni Morales - 07/15/2025 * * *Final Report* * * DATE OF EXAM: Jul 15 2025 7:33AM [facility] 0207 - MRI HIP WO IVCON RT / PROCEDURE REASON: Encounter for screening for other musculoskeletal disorder * * * * Physician Interpretation * * * * EXAMINATION: MRI HIP WO IVCON RT HISTORY: PAIN RT HIP, DIFFICULTY WALKING Encounter for screening for other musculoskeletal disorder . TECHNIQUE: MRI HIP WO IVCON RT COMPARISON: 07/03/2025 RESULT: Bone Marrow: No marrow placement process or acute fracture. Hip Joint(s): Small and irregular RIGHT acetabular labrum with fraying morphology. T2 hyperintense and fluid signal adjacent to the superior acetabular roof measuring 4.9 x 2.2 x1.8 cm. Smaller loculation posteriorly measuring 1.5 x 1.0 x 1.7 cm. Diffuse cartilage thinning with areas of full-thickness cartilage loss in the superior femoral head and acetabulum. Subchondral cystic changes in the femoral head and acetabulum. Mild marrow edema like signal within the femoral neck with a small subcortical cystic change. T1-weighted images demonstrates no discrete linear fracture line. Tear of the ligamentum teres. Moderate RIGHT hip joint effusion. Tendons: Complete avulsion of the rectus femoris direct head from the anterior inferior iliac spine. Heart high-grade partial tear versus complete tear of the indirect head from the superior acetabulum. Intact iliopsoas, rectus femoris, and hamstrings origin bilaterally. Musculature: Feathery T2 signal hyperintensity in the gluteus minimus muscle and rectus femoris muscle. Muscles otherwise demonstrate normal signal intensity and bulk throughout the pelvis. Sacroiliac joints: Maintained with normal signal. Pubic symphysis: Maintained with normal signal. Ischiofemoral Space: Maintained with normal signal. Other Pelvic Findings: No pelvic adenopathy or free fluid. IMPRESSION IMPRESSION: AVULSION OF THE RECTUS FEMORIS ORIGIN AT THE ANTERIOR INFERIOR ILIAC SPINE AND SUPERIOR ACETABULUM. LOCULATED FLUID SIGNAL ALONG THE SUPERIOR ACETABULUM AND ANTERIOR INFERIOR ILIAC SPINE WHICH LIKELY REPRESENTS A HEMATOMA. MODERATE RIGHT HIP OSTEOARTHRITIS WITH DEGENERATIVE TEARING OF THE LABRUM. MARROW EDEMA LIKE SIGNAL WITHIN THE FEMORAL NECK CONSISTENT WITH A STRESS REACTION. NO DISCRETE FRACTURE LINE. Energy Specialist: TIMOTEO Transcribe Date/Time: Jul 15 2025 10:46A Dictated by : LUIS ARMANDO JONES DO This examination was interpreted and the report reviewed and electronically signed by: LUIS ARMANDO JONES DO on Jul 15 2025 11:40AM EST Radiology Study observation (narrative) [facility] MR Hip - right WO contrastOr dered By: [facility] Provider on 07-15-2025 MRI HIP WO IVCON RTon 2024 MRI HIP WO IVCON RT * * *Final Report* * * DATE OF EXAM: Jul 15 2025 7:33AM [facility] 0207 - MRI HIP WO IVCON RT / PROCEDURE REASON: Encounter for screening for other musculoskeletal disorder * * * * Physician Interpretation * * * * EXAMINATION: MRI HIP WO IVCON RT HISTORY: PAIN RT HIP, DIFFICULTY WALKING Encounter for screening for other musculoskeletal disorder . TECHNIQUE: MRI HIP WO IVCON RT COMPARISON: 07/03/2025 RESULT: Bone Marrow: No marrow placement process or acute fracture. Hip Joint(s): Small and irregular RIGHT acetabular labrum with fraying morphology. T2 hyperintense and fluid signal adjacent to the superior acetabular roof measuring 4.9 x 2.2 x1.8 cm. Smaller loculation posteriorly measuring 1.5 x 1.0 x 1.7 cm. Diffuse cartilage thinning with areas of full-thickness cartilage loss in the superior femoral head and acetabulum. Subchondral cystic changes in the femoral head and acetabulum. Mild marrow edema like signal within the femoral neck with a small subcortical cystic change. T1-weighted images demonstrates no discrete linear fracture line. Tear of the ligamentum teres. Moderate RIGHT hip joint effusion. Tendons: Complete avulsion of the rectus femoris direct head from the anterior inferior iliac spine. Heart high-grade partial tear versus complete tear of the indirect head from the superior acetabulum. Intact iliopsoas, rectus femoris, and hamstrings origin bilaterally. Musculature: Feathery T2 signal hyperintensity in the gluteus minimus muscle and rectus femoris muscle. Muscles otherwise demonstrate normal signal intensity and bulk throughout the pelvis. Sacroiliac joints: Maintained with normal signal. Pubic symphysis: Maintained with normal signal. Ischiofemoral Space: Maintained with normal signal. Other Pelvic Findings: No pelvic adenopathy or free fluid. IMPRESSION: AVULSION OF THE RECTUS FEMORIS ORIGIN AT THE ANTERIOR INFERIOR ILIAC SPINE AND SUPERIOR ACETABULUM. LOCULATED FLUID SIGNAL ALONG THE SUPERIOR ACETABULUM AND ANTERIOR INFERIOR ILIAC SPINE WHICH LIKELY REPRESENTS A HEMATOMA. MODERATE RIGHT HIP OSTEOARTHRITIS WITH DEGENERATIVE TEARING OF THE LABRUM. MARROW EDEMA LIKE SIGNAL WITHIN THE FEMORAL NECK CONSISTENT WITH A STRESS REACTION. NO DISCRETE FRACTURE LINE. Energy Specialist: PSCB Transcribe Date/Time: Jul 15 2025 10:46A Dictated by : LUIS ARMANDO JONES DO This examination was interpreted and the report reviewed and electronically signed by: LUIS ARMANDO JONES DO on Jul 15 2025 11:40AM EST [id number] Normal [facility] CNOVon 07-08-2025 CNOV Office Visit (FRFHWS ) -------- HORACE HENDERSON ([id number]) 1955 M Date Time Provider Department 07/08/25 10:00 AM LOW BRYANT V [facility] During your visit today, we recorded the following information about you: Jessie Sullivan MA 07/08/2025 10:32 AM Signed Patient presents with: Right Hip Pain: Referred by Blanca Tilley AMB ROOMING INTAKE FLOWSHEET DATA Pain Pain Level: 9 Pain Location: Hip-Right Description: Aching Duration Amount of Time: 1 Duration Units: Weeks Frequency: Continuous Intervention/Comfort measure: Medication Low Bryant V, DO 07/08/2025 10:32 AM Signed Subjective Horace Henderson is a 70-year-old male presenting with acute onset of right hip pain. Horace reports a 1 week history of right hip pain, described as sharp and localized to the lateral aspect of the hip and the anterior upper thigh. The pain has progressively worsened, significantly impairing his ability to ambulate and perform daily activities, including getting in and out of his car and moving his foot from the gas pedal to the brake while driving. He notes that the pain is exacerbated by movement and weight-bearing activities, and is present even at rest after periods of ambulation. He denies any specific trauma or injury preceding the onset of pain, stating that it developed gradually. He has a history of right knee arthroplasty, which is reportedly doing well. 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 He reports that this has left him with chronic difficulties in ambulation. He recently sought evaluation at an urgent care facility, where a hip x-ray was performed. He was informed that the x-ray showed evidence of arthritis. He denies engaging in activities such as golfing, which he has not done for 2 years. 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 He reports that the pain has been severe enough to prevent him from working today and has caused embarrassment due to his difficulty walking in front of customers. Musculoskeletal: (+) lateral hip pain, (+) anterior thigh pain, (+) knee soreness, (+) gait difficulty Objective There were no vitals taken for this visit. General: No acute distress. MSK/Ext: Tenderness over lateral hip and anterior proximal thigh. Imaging: - Hip X-ray: Arthritic changes noted, including narrowing of the joint space at the inferior aspect and a bony spur, consistent with degenerative changes. Assessment AND Plan 1. Acute right hip pain (M25.551) 2. Trochanteric bursitis of right hip (M70.61) 3. Unilateral primary osteoarthritis, right hip (M16.11) Acute right hip pain began approximately one week ago, localized to the lateral and anterior upper thigh. X-rays from Urgent Care demonstrate chronic arthritic changes, but the pain location and character are more consistent with trochanteric bursitis or tendinitis rather than osteoarthritis. - Administer corticosteroid injection to the right trochanteric bursa. - Instructed patient on light stretching exercises to aid recovery. Large Joint Arthro/Inj: R greater trochanteric bursa 07/08/2025 10:31 AM The procedure site was prepped in the usual sterile fashion. Site: R greater trochanteric bursa Medications: 6 mg betamethasone acetate-betamethasone sodium phosphate 6 mg/mL Anesthetics: 4 mL lidocaine (PF) 10 mg/mL (1 %); 4 mL BUPivacaine (PF) 0.5 % (5 mg/mL) Outcome: Tolerated well, no immediate complications Post-injection instructions were reviewed with the patient and the patient voiced understanding of these instructions. Informed Consent Consent Obtained: Verbal [place] Protocol SIGN IN TIME OUT Recording using ClickFacts software for draft documentation of the visit was discussed with the patient/authorized counter sales representative; all questions welcomed and answered. Patient/authorized counter sales representative agreed to proceed Low Bryant V, DO 07/11/2025 12:56 PM Signed Addended by: LOW BRYANT V on: 07/11/2025 12:56 PM Modules accepted: Orders Referring Provider: BLANCA TILLEY [[id number]] Allergies As of Date: 07/08/2025 Noted Allergy Reaction LEVOFLOXACIN 06/01/2020 14 - Other: See Comments Comments: Tachycardia. Achilles tendonitis. Date Reviewed: 07/08/2025 Reviewed by: Jessie Sullivan MA - Fully Assessed Reason for Visit: Right Hip Pain [1554] Cmt: Referred by Blanca Tilley Primary Visit Diagnosis:Encounter for screening for other musculoskeletal disorder [Z13.828] Other Visit Diagnoses:Acute right hip pain [M25.551] Trochanteric bursitis of right hip [M70.61] Unilateral primary osteoarthritis, right hip [M16.11] Order(s):CONSULT TO ORTHOPAEDICS [9012] Order #: [id number]: 1 Large Joint Arthro/Inj: R great (more content not included)... Normal [facility] Large Joint Arthro/Inj: R gr eater trochanteric bursaon 07-08-2025 Low Bryant V, DO 07/08/2025 10:32 AM Large Joint Arthro/Inj: R greater trochanteric bursa 07/08/2025 10:31 AM The procedure site was prepped in the usual sterile fashion. Site: R greater trochanteric bursa Medications: 6 mg betamethasone acetate-betamethasone sodium phosphate 6 mg/mL Anesthetics: 4 mL lidocaine (PF) 10 mg/mL (1 %); 4 mL BUPivacaine (PF) 0.5 % (5 mg/mL) Outcome: Tolerated well, no immediate complications Post-injection instructions were reviewed with the patient and the patient voiced understanding of these instructions. Informed Consent Consent Obtained: Verbal [place] Protocol SIGN IN TIME OUT [facility] CNOVon 07-07-2025 CNOV Office Visit (INTMWS ) -------- BALJITHORACE ([id number]) 1955 Date Time Provider Department 07/07/25 11:00 AM BLANCA TILLEY INTMWS During your visit today, we recorded the following information about you: Pulse Blood pressure Weight 86/minute 138/72 81.9 kg Blanca Tilley, TECHNICAL SUPPORT SPECIALIST.GROUP HOME MANAGER 07/07/2025 1:21 PM Signed CC: Patient presents with: Follow Up: UC right hip pain. Hurts to even lift leg from gas pedal to brake. No improvement. HPI Recording using ClickFacts software for draft documentation of the visit was discussed with the patient/authorized counter sales representative; all questions welcomed and answered. Patient/authorized counter sales representative agreed to proceed The patient is a 70-year-old male with right hip osteoarthritis, presenting for urgent care follow-up of right hip pain. Right Hip Pain: - Onset approximately one week ago, progressively worsening. - Initially evaluated in urgent care on 07/03. - Described as "terrible" pain, exacerbated by lifting the leg and ambulation. - Pain localized to the right lateral hip, with occasional radiation to the groin area. - Interferes with daily activities, including driving. - Nocturnal pain not reported; minimal discomfort when sitting and resting. - No new symptoms since Urgent Care visit - Denies previous history of hip pain. - Recent x-ray revealed moderate right hip osteoarthritis, bilateral degenerative changes, calcifications adjacent to the right ischial tuberosity, and bilateral enthesopathic changes. - Currently using diclofenac gel TID-QID with no significant relief. - Concerns about potential constipation from stronger analgesics. - Prefers to consult with orthopedics for possible injection therapy. Review of Systems See HPI PAST MEDICAL HISTORY Diagnosis Date Achilles tendinitis of both lower extremities 06/23/2020 Acute on chronic respiratory failure with hypoxia (HCC) 10/30/2022 Arthritis Asthma (HCC) CAD (coronary artery disease) 01/11/2012 COPD (chronic obstructive pulmonary disease) with chronic bronchitis (HCC) 10/07/2013 06/17/2014 ZRT385% predicted. COVID-19 07/05/2022 DDD (degenerative disc disease), lumbar [...] 1965 VASCULAR SURGERY PROCEDURE ALLERGIES Levofloxacin MEDICATIONS diclofenac (VOLTAREN ARTHRITIS PAIN) 1 % topical gel Apply 2 g to affected area four times daily for 7 days. clopidogrel (PLAVIX) 75 mg tablet Take 1 tablet by mouth once daily. potassium chloride SR (MICRO-K) 10 mEq CR capsule Take 1 capsule by mouth two times a day. furosemide (LASIX) 40 mg tablet Take 1 tablet by mouth once daily as needed (swelling.). rosuvastatin (CRESTOR) 40 mg tablet Take 1 tablet by mouth once daily. Magnesium Oxide 500 mg magnesium tab Take 1 tablet by mouth once daily. ipratropium-albuterol (DUONEB) 0.5 mg-3 mg(2.5 mg base)/3 mL nebu Inhale 3 mL as instructed every 6 hours as needed. metoprolol succinate ER (TOPROL XL) 50 mg 24 hr tablet Take 1 tablet by mouth once daily. From [facility]. losartan (COZAAR) 50 mg tablet Take 1 tablet by mouth once daily. Per [facility]. isosorbide mononitrate ER (IMDUR) 30 mg 24 hr tablet Take 30 mg by mouth once daily. traMADol (ULTRAM) 50 mg tablet Take 1 tablet by m (more content not included)... Normal [facility] CNOVon 07-03-2025 CNOV Office Visit (PARUL) -------- BALJIT,HORACE Champagne ([id number]) 1955 M Date Time Provider Department 07/03/25 12:00 PM PRATEEK MATOS During your visit today, we recorded the following information about you: Temperature Pulse Respiration Blood pressure 97.8 degrees 93/minute 22/minute 167/95 Weight 83 kg Prateek Matos APRN.CNP 07/03/2025 12:59 PM Signed [facility] Subjective Horace Champagne Baljit is a 70 year old male. Patient presents with: Pain: R hip pain x 3 days, pain is increasing, pain with lifting leg, trouble with daily duties due to pain HPI Nontoxic-appearing male presents urgent care chief complaint right hip pain. Duration of symptoms 3 days. Associated symptoms of right hip discomfort. States pain is exacerbated by movement. Improved by rest. Did try some Aleve. This helped minimally. No traumatic injuries. No saddle anesthesia or incontinence. No back pain. No radiculopathy. No instability. No redness or swelling. Past medical history prescription medications allergies reviewed Review of Systems Constitutional: Negative for chills, diaphoresis, fatigue and fever. HENT: Negative for congestion, ear discharge, ear pain, rhinorrhea, sinus pressure, sinus pain, sneezing and sore throat. Eyes: Negative for pain, discharge, redness, itching and visual disturbance. Respiratory: Negative for cough, chest tightness, shortness of breath and wheezing. Cardiovascular: Negative for chest pain. Gastrointestinal: Negative for abdominal pain, constipation, diarrhea, nausea and vomiting. Musculoskeletal: Positive for gait problem. Negative for back pain, joint swelling, neck pain and neck stiffness. Skin: Negative for rash. Neurological: Negative for dizziness, weakness and headaches. Objective BP 167/95 Pulse 93 Temp 36.6 ?C (97.8 ?F) Resp 22 Wt 83 kg (182 lb 15.7 oz) SpO2 94% BMI 29.00 kg/m? Physical Exam Constitutional: Appearance: Normal appearance. He is normal weight. HENT: Head: Normocephalic. Eyes: Conjunctiva/sclera: Conjunctivae normal. Cardiovascular: Rate and Rhythm: Normal rate. Pulmonary: Effort: Pulmonary effort is normal. Musculoskeletal: Cervical back: Normal range of motion. Legs: Comments: Discomfort with palpation highlighted area. No erythema edema. No evidence of bursitis. Skin: Findings: No rash. Neurological: General: No focal deficit present. Mental Status: He is alert and oriented to person, place, and time. Mental status is at baseline. {ASSESSMENT/PLAN: 1. Pain of right hip - ICD9: 719.45, ICD10: M25.551 - XR HIP GENERAL 3V PELV/AP/LAT RIGHT No acute findings noted on imaging. Degenerative changes noted bilaterally. Will treat for arthritis at this time. Follow-up with PCP as scheduled. Patient was educated on supportive therapies. Patient will follow up with primary care provider as needed. Patient was instructed to immediately proceed to emergency room for any new, worsening, or symptoms lasting longer than anticipated. The patient's clinical presentation is otherwise unremarkable at this time. Based on exam and clinical finding, the patient is stable for discharge. Plan of care was discussed with patient. Patient verbalizes understanding and agrees to plan of care. This note was generated using Nettle software. It may contain errors in wording, punctuation, or spelling. Prateek Matos APRN.GROUP HOME MANAGER History and Record Review Clinical information obtained from an independent historian. History obtained from or confirmed by: parent. External record(s) reviewed: prior outpatient record. Disposition The patient was discharged. OTC Medications were advised: Procedures Allergies As of Date: 07/03/2025 Noted Allergy Reaction LEVOFLOXACIN 06/01/2020 14 - Other: See Comments Comments: Tachycardia. Achilles tendonitis. Date Reviewed: 07/03/2025 Reviewed by: Prateek Matos APRN.GROUP HOME MANAGER - Fully Assessed Reason for Visit: Pain [78] Cmt: R hip pain x 3 days, pain is increasing, pain with lifting leg, trouble with daily duties due to pain Primary Visit Diagnosis:Pain of right hip [M25.551] Order(s):XR HIP GENERAL 3V PELV/AP/LAT RIGHT [6907960] Order #: [id number] FUTURE diclofenac (VOLTAREN ARTHRITIS PAIN) 1 % topical gelApply 2 g to affected area four times daily for 7 days.Disp: 350 gRfl: 0 Prescriptions as of 07/03/2025 - diclofenac (VOLTAREN ARTHRITIS PAIN) 1 % topical gel Apply 2 g to affected area four times daily for 7 days. - TRELEGY ELLIPTA 200-62.5-25 mcg inhalation powder Inhale 1 puff as instructed once daily. - clopidogrel (PLAVIX) 75 mg tablet Take 1 tablet by mouth once daily. - potassium chloride SR (MICRO-K) 10 mEq CR capsule Take 1 capsule by mouth two times a day. - furosemide (LASIX) 40 mg tablet Take 1 tablet by mouth once daily as needed (swelling.). - rosu (more content not included)... Normal [facility] XR HIP 3V PELV+ AP/LAT RTon 07-03-2025 XR HIP 3V PELV+ AP/LAT RT * * *Final Report* * * DATE OF EXAM: Jul 03 2025 12:31PM [id number] - XR HIP 3V PELV+ AP/LAT RT / PROCEDURE REASON: Pain of right hip * * * * Physician Interpretation * * * * EXAMINATION: XR HIP 3V PELV+ AP/LAT RT TECHNOLOGIST PROVIDED HISTORY: Pain of right hip CLINICAL INFORMATION: 70 years old Male with Pain of right hip TECHNIQUE: XR HIP 3V PELV+ AP/LAT RT Laterality: RIGHT Number of different views (projections): 3 COMPARISON: None RESULT: No acute fracture. Moderate RIGHT and mild LEFT hip osteoarthritis. Sacroiliac joints and pubic symphysis are within normal limits. Calcifications adjacent to the RIGHT ischial tuberosity and LEFT greater trochanter suggestive of calcific tendinosis. Enthesopathic changes bilateral iliac crests, bilateral greater trochanters and bilateral ischial tuberosities. Degenerative changes in the lumbar spine. Vascular calcifications. IMPRESSION: Moderate RIGHT hip osteoarthritis. Energy Specialist: TIMOTEO Transcribe Date/Time: Jul 03 2025 12:42P Dictated by : TODD ZARATE DO This examination was interpreted and the report reviewed and electronically signed by: TODD ZARATE DO on Jul 03 2025 12:46PM EST [id number] Normal [facility] XR Pelvis and Hip - right AP and Lateral frogon 07-03-2025 IMPRESSION: Moderate RIGHT hip osteoarthritis. Energy Specialist: [facility] Transcribe Date/Time: Jul 03 2025 12:42P Dictated by : TODD ZARATE DO This examination was interpreted and the report reviewed and electronically signed by: TODD ZARATE DO on Jul 03 2025 12:46PM EST DIVISION OF RADIOLOGY * * *Final Report* * * DATE OF EXAM: Jul 03 2025 12:31PM [id number] - XR HIP 3V PELV+ AP/LAT RT / PROCEDURE REASON: Pain of right hip * * * * Physician Interpretation * * * * EXAMINATION: XR HIP 3V PELV+ AP/LAT RT TECHNOLOGIST PROVIDED HISTORY: Pain of right hip CLINICAL INFORMATION: 70 years old Male with Pain of right hip TECHNIQUE: XR HIP 3V PELV+ AP/LAT RT Laterality: RIGHT Number of different views (projections): 3 COMPARISON: None RESULT: No acute fracture. Moderate RIGHT and mild LEFT hip osteoarthritis. Sacroiliac joints and pubic symphysis are within normal limits. Calcifications adjacent to the RIGHT ischial tuberosity and LEFT greater trochanter suggestive of calcific tendinosis. Enthesopathic changes bilateral iliac crests, bilateral greater trochanters and bilateral ischial tuberosities. Degenerative changes in the lumbar spine. Vascular calcifications. DIVISION OF RADIOLOGY Provider, Bria Desire guru [place] - 07/03/2025 * * *Final Report* * * DATE OF EXAM: Jul 03 2025 12:31PM WOX [id number] - XR HIP 3V PELV+ AP/LAT RT / PROCEDURE REASON: Pain of right hip * * * * Physician Interpretation * * * * EXAMINATION: XR HIP 3V PELV+ AP/LAT RT TECHNOLOGIST PROVIDED HISTORY: Pain of right hip CLINICAL INFORMATION: 70 years old Male with Pain of right hip TECHNIQUE: XR HIP 3V PELV+ AP/LAT RT Laterality: RIGHT Number of different views (projections): 3 COMPARISON: None RESULT: No acute fracture. Moderate RIGHT and mild LEFT hip osteoarthritis. Sacroiliac joints and pubic symphysis are within normal limits. Calcifications adjacent to the RIGHT ischial tuberosity and LEFT greater trochanter suggestive of calcific tendinosis. Enthesopathic changes bilateral iliac crests, bilateral greater trochanters and bilateral ischial tuberosities. Degenerative changes in the lumbar spine. Vascular calcifications. IMPRESSION IMPRESSION: Moderate RIGHT hip osteoarthritis. Energy Specialist: PSCLatonya Transcribe Date/Time: Jul 03 2025 12:42P Dictated by : TODD ZARATE DO This examination was interpreted and the report reviewed and electronically signed by: TODD ZARATE DO on Jul 03 2025 12:46PM [facility] Radiology Study observation (narrative) [facility] XR Pelvis and Hip - right AP and Lateral frogOrdered By: [facility]cf Provider on 07-03-[address] Lung Screeningon 06-14-[address] Lung Screening [facility] [address] [place] [id number] Lung Screening MR#: [id number] Acct: [id number] Name: HORACE HENDERSON Rep #: [id number] : 1955 M 69 From: Byron elliott MD PCP: Dr. George Vázquez MD Status: [facility] Study: Low Dose CT Lung Screening Date of Exam: 06/14 Exam# [id number] Ordering Dr: Radha Roberts NP PARKING WORKER-C PROCEDURE: LOW DOSE CT LUNG SCREENING 06/14/2025 REASON FOR EXAM: SMOKER COPD. TECHNIQUE: LOW DOSE CT LUNG SCREENING Coronal and Sagittal reconstruction series were provided. One or more dose reduction techniques were used (e.g., Automated exposure control, adjustment of the mA and/or kV according to patient size, use of iterative reconstruction technique). REFERENCE LINK: [employer] Lung-RADS RADIATION DOSE SUMMARY: CTDlvol: 2.39 mGy DLP: 74.75 mGycm COMPARISON: Prior study dated November 27, 2024. FINDINGS: PULMONARY NODULES: (Only nodules >3mm are reported) Nodules described below are on series 1 unless otherwise specified. Pulmonary Nodules: No suspicious nodules are seen. Hardware:None Lymph Nodes:No suspicious lymph nodes. Heart and Vasculature:Status post CABG.Atherosclerotic calcifications of the thoracic aorta. Thoracic aorta and pulmonary arteries have normal contours; noncontrast technique limits evaluation. Coronary Artery Calcifications: Present Lungs and Airways: Hyperinflation. Moderate degree of emphysematous changes. No suspicious nodules are seen. Pleura:No pleural effusion. Upper Abdomen:Unremarkable Bones:Degenerative changes of the thoracic spine. CT/Low Dose CT Lung Screening IMPRESSION: No suspicious nodules are seen. Coronary artery calcification (CAC) is is present Lung-RADS Category: 2 BENIGN (BASED ON IMAGING FEATURES OR INDOLENT BEHAVIOR). RECOMMEND 12-MONTH SCREENING LDCT. Other Significant Findings: Reading Location: [id number] CC: PARKING WORKER-Vangie Roberts; Dr. George Vázquez MD Energy Specialist: Signed Normal [facility] CNOVon 05-28-2025 CNOV Office Visit (INTMWS ) -------- HORACE HENDERSON ([id number]) 1955 Date Time Provider Department 05/28/25 1:40 PM GEORGE VÁZQUEZ INTMWS During your visit today, we recorded the following information about you: Pulse Blood pressure Weight Height 72/minute 157/81 78.7 kg 1Tianna692 m George Vázquez MD 05/28/2025 2:56 PM [...] PCP - General (Internal Medicine) Blanca Tilley, DEWAYNE.GROUP HOME MANAGER as Paediatric Surgeon (Internal Medicine) Outside specialists seen: Dayton Zarate [...] Adult) Pulse 72 Ht 169.2 cm (5' 6.6") Wt 78.7 kg (173 lb 8 oz) [...] Henderson is a 69 year old male. HPI Horace was doing reasonably well. He had a rash on his feet, and lower legs for several months. His digital editor sent off his toenail, but this came [...] Vaping stat (more content not included)... Normal [facility] Cardiology Visit Reporton Cardiology Visit Report [facility] [address] [place] [address] OFFICE VISIT Date of Service: 05/05/25 MR#: [id number] Acct: [id number] Name: HORACE HENDERSON Rep #: [id number] : 1955 Provider: JAMARCUS bryant Age/Sex: 69/M Location: [facility] Status: Signed HPI HPI History of Present [...] the last one occurring in 2020 at [facility]. Patient also has a history of COPD and MIKE in which he follows with pulmonology for. Patient was hospitalized in September 2020 for for a syncopal event in which patient was found to be dehydrated and hypotensive. Patient's MIRZA inhibitor and Lasix were discontinued and beta-alise [...] NIBP Intake Visit Reasons: 6 M FU Sr Vice President Required: No Is patient in pain?: No Allergies levofloxacin (From [employer]) Adverse Reaction (Severe, Verified 05/05/25 13:02) tendonitis [...] fur. 200 mcg-umeclid 1 ea inhalation QDAY 05/05/25 0705/23 History 62.5 mcg-vilant 25 mcg inhalat.powder (Trelegy Ellipta) furosemide 40 mg tablet 20 mg PO QAM PRN 05/05/25 05/05/25 History potassium chloride 10 mEq 10 meq PO QDAY 05/05/25 05/05/25 H istory capsule,extended release Ejection fraction %: 60 [facility] you [facility] in the past year?: [facility] Essential hypertension Alcohol use [...] dependence O (more content not included)... Normal [facility] Bilirubin directOrdered By: Bhupendra Asif on 05-03-2025 Bilirubin.direct [Mass/Vol] 0.13 mg/dL Normal 0.00-0.30 [facility] Comment on above: Hemolysis present, R esults could be affected. Result Comment: Hemo lysis present, Results??could be affected. ?? Performed By: #### L 500.3400, L500.4100 #### [facility] [address] [place], [place], [id number] Bilirubin, totalOrdered By: Bhupendra Asif on 05-03-2025 Bilirubin [Mass/Vol] 0.54 mg/dL Normal 0.00-1.30 [facility] Comment on above: Performed By: #### L 500.3400, L500.4100 #### [facility] [address] [place], [place], [id number] Calculated very low density lipoprotein (VLDL) cholesterol measurementOrdered By: Bhupendra Asif on 05-03-2025 Calculated very low density lipoprotein (VLDL) cholesterol measurement 25 mg/dL 5-40 [facility] LDL calc ser/plasOrdered By: Bhupendra Asif on 05-03-2025 Cholesterol in LDL [Mass/Vol] 116 mg/dL Normal [facility] Comment on above: Vntwwndcbo=047-081 m g/dL & Higher Gfhv=153 mg/dL or greater Result Comment: Bord pdcknn=832-797 mg/dL Higher Hxsk=767 mg/dL or greater Performed By: #### L 500.3400, L500.4100 #### [facility] [address] [place], [address] Lipid Profileon 05-03-2025 CHOL:HDL 3.50 Normal [facility] Comment on above: Performed By: #### L 500.3400, L500.4100 #### [facility] [address] [place], [address] Cholesterol in VLDL [Mass/Vol] 25 mg/dL Normal 5-40 [facility] Comment on above: Performed By: #### L 500.3400, L500.4100 #### [facility] [address] [place], [address] Liver Profileon 05-03-2025 ALK PHOS 85 U/L Normal 40-129 [facility] Comment on above: Performed By: #### L 500.3400, L500.4100 #### [facility] [address] [place], [address] T PROT 6.8 g/dL Normal 5.9-8.4 [facility] Comment on above: Performed By: #### L 500.3400, L500.4100 #### [facility] [address] [place], [address] Liver ProfileOrdered By: David Asif on 05-03-2025 AST [Catalytic activity/Vol] 26 U/L Normal <=37 [facility] Comment on above: Hemolysis present, R esults could be affected. Result Comment: Hemo lysis present, Results??could be affected. ?? Performed By: #### L 500.3400, L500.4100 #### [facility] [address] [place], [address] Screening total cholesterol/ high density lipoprotein (HDL) cholesterol ratioOrdered By: Bhupendra Asif on 05-03-2025 Cholesterol.total/David sterol in HDL [Mass ratio] 3.50 {ratio} [facility] Serum globulin measurementOr dered By: Bhupendra Asif on 05-03-2025 Globulin (S) [Mass/Vol] 2.8 g/dL Normal 2.2-4.2 [facility] Comment on above: Performed By: #### L 500.3400, L500.4100 #### [facility] [address] [place], [address] Serum or plasma alanine gomez otransferase (ALT) measurementOrdered By: Bhupendra Asif on 05-03-2025 ALT [Catalytic activity/Vol] 13 U/L Normal <=46 [facility] Comment on above: Performed By: #### L 500.3400, L500.4100 #### [facility] [address] [place], [address] Serum or plasma albumin jimbo urement (mass/volume)Ordered By: Bhupendra Asif on 05-03-2025 Albumin [Mass/Vol] 4.0 g/dL Normal 3.4-4.8 [facility] Comment on above: Performed By: #### L 500.3400, L500.4100 #### [facility] [address] [place], [address] Serum or plasma alkaline atif sphatase measurementOrdered By: Bhupendra Asif on 05-03-2025 ALP [Catalytic activity/Vol] 85 U/L 40-129 [facility] Serum or plasma cholesterol in HDL measurement (mass/volume)Ordered By: Bhupendra Asif on 05-03-2025 Cholesterol in HDL [Mass/Vol] 57 mg/dL Normal [facility] Comment on above: National Cholesterol Education Program [...] and age. Performed By: #### L 500.3400, L500.4100 #### [facility] [address] [place], [address] Serum or plasma cholesterol measurement (mass/volume)Ordered By: Bhupendra Asif on 05-03-2025 Cholesterol [Mass/Vol] 198 mg/dL Normal <=200 [facility] Comment on above: Cholesterol level, D esirable <200 mg/dLBorderline high cholesterol 200-239 mg/dLHigh cholesterol >=240 mg/dLRecommendations of the NCEP Adult Treatment Panel for the following risk-cutoff thresholds for the [place] population. Result Comment: Chol esterol level, Desirable <200 mg/dL Borderline high cholesterol 200-239 mg/dL High cholesterol >=240 mg/dL Recommendations of the NCEP Adult Treatment Panel for the following risk-cutoff thresholds for the [place] population. Performed By: #### L 500.3400, L500.4100 #### [facility] [address] [place], [address] Total proteinOrdered By: David Asif on 05-03-2025 Protein [Mass/Vol] 6.8 g/dL 5.9-8.4 [facility] Triglycerides measurementOrd ered By: Bhupendra Asif on 05-03-2025 Triglyceride [Mass/Vol] 125 mg/dL Normal [facility] Comment on above: The drugs N-Acetylcy steine and Metamizole may falsely depress this assay. Normal range: <150 mg/dLBorderline High: 150-199 mg/dLHigh: 200-499 mg/dLVery High: >500 mg/dL Result Comment: The drugs N-Acetylcysteine and Metamizole may falsely depress this assay. Normal range: <150 mg/dL Borderline High: 150-199 mg/dL High: 200-499 mg/dL Very High: >500 mg/dL Performed By: #### L 500.3400, L500.4100 #### [facility] [address] [place], [address] Absolute lymphocyte countOrd ered By: Neptali Weirrosa on 02-14-2025 Lymphocytes Auto (Unsp spec) [#/Vol] 1.40 10*3/uL 0.83-4.51 [facility] Absolute neutrophil countOrd ered By: Neptali Destinrosa on 02-14-2025 Neutrophils (Bld) [#/Vol] 5.8 10*3/uL 2.0-7.7 [facility] Automated lymphocyte count a s percentage of total leukocytesOrdered By: Neptali Weirrosa on 02-14-2025 Lymphocytes/100 WBC Auto (Unsp spec) 17.6 % Low 19-41 [facility] Basophil percentageOrdered B y: Neptali Orellana on 02-14-2025 Basophils/100 WBC (Bld) 0.4 % 0-1 [facility] CBC W/Diff, Automatedon 01-28 Absolute Lymph 1.40 X10 3/uL Normal 0.83-4.51 [facility] Comment on above: Performed By: #### L 100.0100 #### [facility] [address] [place], [address] Absolute Neut 5.8 X10 3/uL Normal 2.0-7.7 [facility] Comment on above: Performed By: #### L 100.0100 #### [facility] [address] [place], [address] Basophils/100 WBC (Bld) 0.4 % Normal 0-1 [facility] Comment on above: Performed By: #### L 100.0100 #### [facility] [address] [place], [address] Eosinophils/100 WBC (Bld) 0.9 % Normal 0-5 [facility] Comment on above: Performed By: #### L 100.0100 #### [facility] [address] [place], [address] Erythrocyte distribution width (RBC) [Ratio] 13.2 % Normal 11.6-14.6 [facility] Comment on above: Performed By: #### L 100.0100 #### [facility] [address] [place], [address] Hematocrit (Bld) [Volume fraction] 43.8 % Normal 40-54 [facility] Comment on above: Performed By: #### L 100.0100 #### [facility] [address] [place], [address] Hemoglobin (Bld) [Mass/Vol] 15.0 g/dL Normal 13.0-16.5 [facility] Comment on above: Performed By: #### L 100.0100 #### [facility] [address] [place], [address] IG% 0.400 Normal 0.0-0.9 [facility] Comment on above: Result Comment: IG% - Immature Granulocytes (promyelocytes, myelocytes and metamyelocytes) > 1% indicates that a LEFT SHIFT is Present. Performed By: #### L 100.0100 #### [facility] [address] [place], [address] Lymphocytes/100 WBC (Bld) 17.6 % Low 19-41 [facility] Comment on above: Performed By: #### L 100.0100 #### [facility] [address] [place], [address] MCH (RBC) [Entitic mass] 33.7 pg High 27.0-32.0 [facility] Comment on above: Performed By: #### L 100.0100 #### [facility] [address] [place], [address] MCHC (RBC) [Mass/Vol] 34.2 g/dL Normal 32-36 [facility] Comment on above: Performed By: #### L 100.0100 #### [facility] [address] [place], [address] MCV (RBC) [Entitic vol] 98.4 fL High 80-94 [facility] Comment on above: Performed By: #### L 100.0100 #### [facility] [address] [place], [address] Monocytes/100 WBC (Bld) 7.4 % Normal 0-10 [facility] Comment on above: Performed By: #### L 100.0100 #### [facility] [address] [place], [address] Neutrophils/100 WBC (Bld) 73.3 % High 47-70 [facility] Comment on above: Performed By: #### L 100.0100 #### [facility] [address] [place], [address] Nucleated RBC (Bld) [#/Vol] 0 10*3/uL Normal 0-5 [facility] Comment on above: Performed By: #### L 100.0100 #### [facility] [address] [place], [address] Platelet mean volume (Bld) [Entitic vol] 9.3 fL Normal 6.2-12.0 [facility] Comment on above: Performed By: #### L 100.0100 #### [facility] [address] [place], [address] Platelets (Bld) [#/Vol] 200 10*3/uL Normal 150-450 [facility] Comment on above: Performed By: #### L 100.0100 #### [facility] [address] [place], [address] RBC (Bld) [#/Vol] 4.45 10*6/uL Low 4.6-6.2 [facility] Comment on above: Performed By: #### L 100.0100 #### [facility] [address] [place], [address] RDW SD 48.0 fl High 35.1-43.9 [facility] Comment on above: Performed By: #### L 100.0100 #### [facility] [address] [place], [address] WBC (Bld) [#/Vol] 8.0 10*3/uL Normal 4.4-11.0 [facility] Comment on above: Performed By: #### L 100.0100 #### [facility] [address] [place], [address] Eosinophil percentageOrdered By: Neptali Orellana on 02-14-2025 Eosinophils/100 WBC (Bld) 0.9 % 0-5 [facility] Erythrocyte distribution wid th ratioOrdered By: Neptali Orellana on 02-14-2025 Erythrocyte distribution width (RBC) [Ratio] 13.2 % 11.6-14.6 [facility] Erythrocyte distribution wid th standard deviationOrdered By: Neptali Orellana on 02-14-2025 Erythrocyte distribution width (RBC) [Ratio] 48.0 fl High 35.1-43.9 [facility] Hematocrit Auto (Bld) [Volum e fraction]Ordered By: Neptali Orellana on 02-14-2025 Hematocrit (Bld) [Volume fraction] 43.8 % 40-54 [facility] Hemoglobin measurementOrdere d By: Neptali Orellana on 02-14-2025 Hemoglobin (Bld) [Mass/Vol] 15.0 g/dL 13.0-16.5 [facility] Immature granulocytes/100 WB C Auto (Bld)Ordered By: Neptali Orellana on 02-14-2025 Immature granulocytes/100 WBC (Bld) 0.400 % 0.0-0.9 [facility] Comment on above: IG% - Immature Granu locytes (promyelocytes, myelocytes and metamyelocytes) > 1% indicates that a LEFT SHIFT is Present. MCV (mean corpuscular volume ) determinationOrdered By: Neptali Orellana on 02-14-2025 MCV (RBC) [Entitic vol] 98.4 fL High 80-94 [facility] Mean corpuscular hemoglobin (MCH) determinationOrdered By: Neptali Orellana on 02-14-2025 MCH (RBC) [Entitic mass] 33.7 pg High 27.0-32.0 [facility] Mean corpuscular hemoglobin concentration (MCHC) determinationOrdered By: Neptali Orellana on 02-14-2025 MCHC (RBC) [Mass/Vol] 34.2 g/dL 32-36 [facility] Mean platelet volume determi nationOrdered By: Neptali Orellana on 02-14-2025 Platelet mean volume (Bld) [Entitic vol] 9.3 fL 6.2-12.0 [facility] Monocyte percentageOrdered B y: Neptali Orellana on 02-14-2025 Monocytes/100 WBC (Bld) 7.4 % 0-10 [facility] Neutrophil percentageOrdered By: Neptali Orellana on 02-14-2025 Neutrophils/100 WBC (Bld) 73.3 % High 47-70 [facility] Nucleated red blood cell per centageOrdered By: Neptali Orellana on 02-14-2025 Nucleated RBC/100 WBC (Bld) [Ratio] 0 % 0-5 [facility] Platelet countOrdered By: Sierra Orellana on 02-14-2025 Platelets (Bld) [#/Vol] 200 10*3/uL 150-450 [facility] RBC Auto (Bld) [#/Vol]Ordere d By: Neptali Orellana on 02-14-2025 RBC (Bld) [#/Vol] 4.45 10*6/uL Low 4.6-6.2 [facility] White blood cell (WBC) count Ordered By: Neptali Orellana on 02-14-2025 WBC (Bld) [#/Vol] 8.0 10*3/uL 4.4-11.0 [facility] Duplex ultrasound of carotid artery reportOrdered By: Salvador Kwok on 02-06-2025 Study report [facility] [address] [place] [address] Carotid Duplex Ultrasound 02/05/25 0958 MR#: [id number] Acct: [id number] Name: HORACE HENDERSON Rep #:[id number] : [...] the left vertebral artery. Procedure Carotid Duplex 67509. This is a Carotid Duplex examination using B-mode, color flow and specral Doppler. Exam performed in department. VL/Carotid Duplex Ultrasound Interpretation Summary Mild (<50%) stenosis right extracranial internal carotid. Mild (<50%) stenosis left extracranial internal carotid. Patent and antegrade vertebrals bilaterally. Ordering Physician: Bhupendra Asif Referring Physician: George Vázquez M.D. Performed By: Jazmyn Darby RVT 02/06/25736 Date _ Salvador Kwok MD CC: Dr. George Vázquez MD; RENEE Villagomez ~ Date Dictated: 02/05/25957 Date Transcribed: 02/06/25736 Energy Specialist: Signed [facility] Work Phone: Carotid Duplex Ultrasoundon 02-05-2025 Carotid Duplex Ultrasound [facility] [place] [address] Carotid Duplex Ultrasound 02/05/25957 MR#: [id number] Acct: [id number] Name: HORACE HENDERSON Rep #: [id number] : 1955 69 From: Salvador Kwok MD Attending Dr: RENEE Villagomez Status: REG CL I Ordering Dr: Bhupendra Asif Date: 02/05/25 Location: [facility] Sex: M C Admitted: Reason For [...] the left vertebral artery. Procedure Carotid Duplex 67003. This is a Carotid Duplex examination using B-mode, color flow and specral Doppler. Exam performed in department. VL/Carotid Duplex Ultrasound Interpretation Summary Mild (<50%) stenosis right extracranial internal carotid. Mild (<50%) stenosis left extracranial internal carotid. Patent and antegrade vertebrals bilaterally. Ordering Physician: Bhupendra Aisf Referring Physician: Geroge Vázquez M.D. Performed By: Jazmyn Darby, RVT 02/06/25736 Date Salvador Kwok MD CC: Dr. George Vázquez MD; RENEE Villagomez Date Dictated: 02/05/2558 Date Transcribed: 02/06/25736 Energy Specialist: Signed Normal [facility] Cardiology Visit Reporton Cardiology Visit Report [facility] [address] [place] [address] OFFICE VISIT Date of Service: 01/20/25 MR#: [id number] Acct: [id number] Name: HORACE HENDERSON Rep #: [id number] : 1955 Provider: RENEE Villagomez Age/Sex: 69/M Location: [facility] Status: Signed Agree with assessment and plan [...] the last one occurring in 2020 at [facility]. Patient also has a history of COPD and MIKE in which he follows with pulmonology for. Patient was hospitalized in September 2020 for for a syncopal event in which patient was found to be dehydrated and hypotensive. 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 Normal [facility] 12 Lead EKG performed by [facility] on 01-08-2025 12 Lead EKG performed by [facility] [address] [place] [address] 12 Lead EKG performed by [facility] 01/08/25 1008 MR#: [id number] Acct: [id number] Name: HORACE HNEDERSON Rep #: [id number] : 1955 69 From: Carrillo Malave MD Attending Dr: Dr. Carrillo Malave MD Status: DE P AMB Ordering Dr: Carrillo Malave MD Date: 01/08/25 Location: [facility] Sex: M C Admitted: BMS/12 Lead EKG performed by [facility] ECG Report Interpretation --Sinus Rhythm -Right bundle branch block with left axis -bifascicular block. ABNORMAL Electronically signed on 01/08/2025 at 10:[address] Carrillo Malave [employer] Version [id number] 01/08/25 1057 Date Carrillo Malave MD CC: Dr. George Vázquez MD Date Dictated: 01/08/25 1008 Date Transcribed: 01/08/251007 Energy Specialist: Signed Normal [facility] Basic metabolic 2000 panelon 01-08-2025 Anion gap [Moles/Vol] 8 mmol/L Normal 8-15 [facility] Comment on above: Order Comment: Speci men Type: BLOOD SPECIMENOrdering Facility: [facility] Address: [address] [place] [address] Performed By: #### 2 4321-2 ####[facility] LAB[facility] [id number] [place] [address] [place] Calcium [Mass/Vol] 10.2 mg/dL Normal 8.5-10.2 [facility] Comment on above: Order Comment: Speci men Type: BLOOD SPECIMENOrdering Facility: [facility] Address: [address] [place] [address] Performed By: #### 2 4321-2 ####[facility] [id number] [place] [address] [place] Chloride [Moles/Vol] 99 mmol/L Normal 98-107 [facility] Comment on above: Order Comment: Speci men Type: BLOOD SPECIMENOrdering Facility: [facility] Address: [address] [place] [address] Performed By: #### 2 4321-2 ####[facility] LABCLIA [id number] [place] [id number] [place] CO2 [Moles/Vol] 34 mmol/L High 22-30 [facility] Comment on above: Order Comment: Speci men Type: BLOOD SPECIMENOrdering Facility: [facility] Address: [address] [place] [address] Performed By: #### 2 4321-2 ####[facility]CL[facility] [id number] [place] [address] [place] [facility] Creatinine [Mass/Vol] 1.09 mg/dL Normal 0.73-1.22 [facility] Comment on above: Order Comment: Speci men Type: BLOOD SPECIMENOrdering Facility: [facility] Address: [address] [place] [address] Performed By: #### 2 4321-2 ####[facility] [id number] [address] Creatinine and Glomerular filtration rate.predicted panel (S/P/Bld) 73 mL/min/1.73m??? Normal >=60 [facility] Comment on above: Order Comment: Speci men Type: BLOOD SPECIMENOrdering Facility: [facility] Address: [address] [place] [address] Result Comment: Shelli mated Glomerular Filtration Rate [...] actual GFR. Performed By: #### 2 4321-2 ####[facility] [id number] [place] [address] [place] Glucose [Mass/Vol] 94 mg/dL Normal 74-99 [facility] Comment on above: Order Comment: Speci men Type: BLOOD SPECIMENOrdering Facility: [facility] Address: [address] [place] [address] Result Comment: The [place] Diabetes Association (ADA) provides guidance for cutoff [...] Standards of Medical Care in Diabetes 2016, [place] [employer] Association. Diabetes Care. 2016.39(Suppl 1). Performed By: #### 2 4321-2 ####[facility] LABIA [id number] [place] [address] [place] Potassium [Moles/Vol] 3.6 mmol/L Low 3.7-5.1 [facility] Comment on above: Order Comment: Speci men Type: BLOOD SPECIMENOrdering Facility: [facility] Address: [address] [place] [address] Performed By: #### 2 4321-2 ####[facility] LABIA [id number] [place] [id number] [place] Sodium [Moles/Vol] 141 mmol/L Normal 136-144 [facility] Comment on above: Order Comment: Speci men Type: BLOOD SPECIMENOrdering Facility: [facility] Address: [address] [place] [address] Performed By: #### 2 4321-2 ####[facility] LABIA [id number] [place] [id number] [place] Urea nitrogen [Mass/Vol] 13 mg/dL Normal 9-24 [facility] Comment on above: Order Comment: Speci men Type: BLOOD SPECIMENOrdering Facility: [facility] Address: [address] [place] [id number] Performed By: #### 2 4321-2 ####[facility] LABCLIA [id number] [address] [facility] [place] [address] [place] CNOVon 01-08-2025 CNOV Office Visit (INTMWS ) -------- HORACE HENDERSON ([id number]) 1955 Date Time Provider Department 01/08/25 3:40 PM GEORGE VÁZQUEZ INTMWS During your visit today, we recorded the following information about you: Temperature Pulse Respiration Blood pressure 97.9 degrees 110/minute 20/minute 130/78 Weight 79.5 kg George Vázquez MD 01/08/2025 4:22 PM Signed This note was created using NewsWhipriter. Subjective Horace Henderson is a 69 year old male. He's had a productive cough with green phlegm, and increased dyspnea on exertion for the past 1.5 to 2 weeks. He had no upper respiratory infection symptoms, fever, or chills. He saw his cashier host/hostess Dr. Malave today, who ordered a chest [...] Effort: Pr (more content not included)... Normal [facility] HORACE HENDERSON ([id number]) 1955 M Date Time Provider Department 01/08/25 GEORGE VÁZQUEZ INTMWS During your visit today, we recorded the following information about you: Ihsan Christensen, RN 01/08/2025 11:24 AM Signed Patient reports he saw Dr. Malave at [facility] today. Dr. Malave did a EKG and CXR. Reports Dr. Malave advised him he was going to send CXR to pcp as it appears pt may have pneumonia and need an AB. Pt reports he has productive green cough, and SOB. No other symptoms. Please advise patient. [phone] Evelin Richey LPN 01/08/2025 11:45 AM Signed Attempted to call Patient, no answer, wanting to schedule an appt to be evaluated by Dr. Vázquez. Rebel Amaya LPN, RN 01/08/2025 11:51 AM Signed Pt called and is scheduled today with Dr Vázquez at 340 pm. Rebel Sarah RN Allergies As of Date: 01/08/2025 Noted Allergy Reaction LEVOFLOXACIN 06/01/2020 14 - Other: See Comments Comments: Tachycardia. Achilles tendonitis. Date Reviewed: 09/12/2024 Reviewed by: Evelin Richey LPN - Fully Assessed Reason for [...] reflux disease [K21.9] 05/24/2023 Encounter Status:Closed by REBEL SARAH on 01/08/25 Normal [facility] Cardiology Visit Reporton Cardiology Visit Report [facility] [address] [place] [address] OFFICE VISIT Date of Service: 01/08/25 MR#: [id number] Acct: [id number] Name: HORACE HENDERSON Rep #: [id number] : 1955 Provider: Dr. Carrilol mirza MD Age/Sex: 69/M Location: [facility] Status: Signed with Addenda ADDENDUM by Dr. [...] graft without angina pectoris: Status: Chronic Qualifiers: [place] vs. transplanted heart: [place] heart Qualified Code(s): I25.810 - Atherosclerosis of coronary artery bypass graft(s) without angina pectoris Comment: CABG x 2 [facility], SVG-D1 10/14/96 SVG-D1 is occluded PTCA to distal RCA, PCI/stent to proximal rPDA, PTCA of distal LCx and OM2 ISR on 11/12/[address] Ulrich of [facility];PTCA to distal RCA, PCI/stent to proximal rPDA, PTCA of distal LCx and OM2 ISR on 11/12/[address] Ulrich of [facility]; (3) Essential hypertension: Status: Acute (4) Leg edema: Status: Acute Orders: Orders Chest PA and Lateral Today R05.8 - Other specified cough Medications: New losartan 50 mg PO QPM 30 tabs 11RF Plan Details Follow Up: 2 Weeks (With Bhupendra, [facility]) 01/08/25 1052 Date Carrillo Malave [...] you fallen in the past year?: No [facility] Medical History Essential hypertension Alcohol use [...] disease), lumbar Atherosclerosis of coronary artery of [place] heart without angina pectoris Atherosclerosis of coronary [...] tonsillectomy History (more content not included)... Normal [facility] Chest PA and Lateralon 01-08 Chest PA and Lateral [facility] Services [address] [place] [address] [id number] Chest PA and Lateral MR#: [id number] Acct: [id number] Name: HORACE HENDERSON Rep #: [id number] : 1955 M 69 From: Jesus Amanda MD PCP: Dr. George Vázquez MD Status: REG CLI Study: Chest PA and Lateral Date of Exam: 01/08/25 Exam# [id number] Ordering Dr: Carrillo Malave MD EXAM: XR [...] Lateral IMPRESSION: Suggestion of COPD. Reading Location: [facility] CC: Dr. Carrillo Malave MD; Dr. George Vázquez MD Energy Specialist: Signed Normal [facility] BNP (brain natriuretic pepti de measurement)Ordered By: Neptali Orellana on 11-27-2024 Natriuretic peptide B (Bld) [Mass/Vol] 118.8 pg/mL High 0-100 [facility] BNP,B-Type NATRIURETIC PEPTI Ebony 11-27-2024 Natriuretic peptide B (Bld) [Mass/Vol] 118.8 pg/mL High 0-100 [facility] Comment on above: Performed By: #### L 500.2500, L503.6620 ####[facility] [address] [place], [address] Basic Metabolic Profile (BMP )on 11-27-2024 BUN/CRE 19.6 RATIO Normal 10-20 [facility] Comment on above: Performed By: #### L 500.2500, L503.6620 ####[facility] [address] [place], [address] CA,Total 9.0 mg/dL Normal 8.5-10.1 [facility] Comment on above: Performed By: #### L 500.2500, L503.6620 ####[facility] [address] [place], [address] Chloride [Moles/Vol] 103 mmol/L Normal 98-107 [facility] Comment on above: Performed By: #### L 500.2500, L503.6620 ####[facility] [address] [place], [address] CO2 [Moles/Vol] 28.0 mmol/L Normal 21.0-32.0 [facility] Comment on above: Performed By: #### L 500.2500, L503.6620 ####[facility] [address] [place], [address] Creatinine [Mass/Vol] 1.07 mg/dL Normal 0.70-1.30 [facility] Comment on above: Result Comment: The validity of the calculated GFR GFRAA in patients over 70 years has not been determined. Clinical correlation is essential. Performed By: #### L 500.2500, L503.6620 ####[facility] [address] [place], [address] EST GFR - AA 88 mL/min Normal >60 [facility] Comment on above: Result Comment: Afri can Fijian GFR Calc Performed By: #### L 500.2500, L503.6620 ####[facility] [address] [place], [address] GAP 6 Normal 5-15 [facility] Comment on above: Performed By: #### L 500.2500, L503.6620 ####[facility] [address] [place], [address] GFR/1.73 sq M.predicted among non-blacks MDRD (S/P/Bld) [Vol rate/Area] 73 mL/min/{1.73_m2} Normal >60 [facility] Comment on above: Result Comment: Non- GFR Calc Performed By: #### L 500.2500, L503.6620 ####[facility] [address] [place], [address] Glucose [Mass/Vol] 112 mg/dL High 74-106 [facility] Comment on above: Result Comment: Fast ing Glucose result from 100 to 125 mg/dL suggests IMPAIRED HOMEOSTASIS per A.D.A. criteria. Performed By: #### L 500.2500, L503.6620 ####[facility] [address] [place], [address] Potassium [Moles/Vol] 3.9 mmol/L Normal 3.5-5.1 [facility] Comment on above: Performed By: #### L 500.2500, L503.6620 ####[facility] [address] [place], [address] Sodium [Moles/Vol] 137 mmol/L Normal 136-145 [facility] Comment on above: Performed By: #### L 500.2500, L503.6620 ####[facility] [address] [place], [address] Urea nitrogen [Mass/Vol] 21 mg/dL High 7-18 [facility] Comment on above: Performed By: #### L 500.2500, L503.6620 ####[facility] [address] [place], [address] Blood urea nitrogen (BUN)/cr eatinine ratioOrdered By: Neptali Orellana on 11-27-2024 Urea nitrogen/Creatinine [Mass ratio] 19.6 mg/mg 10-20 [facility] CTA Chest W/WO Contraston CTA Chest W/WO Contrast [facility] Services [address] [place] [address] CTA Chest W/WO Contrast MR#: [id number] Acct: [id number] Name: HORACE HENDERSON Rep #: [id number] : 1955 M 69 From: Byron elliott MD PCP: Dr. George Vázquez MD Status: [facility] Study: CTA Chest W/WO Contrast Date of Exam: 11/27/24 Exam# [id number] Ordering Dr: Neptali Orellana MD PROCEDURE: CTA [...] use of iterative reconstruction technique). Reading Location: [place] [address] CC: Dr. Neptali Orellana MD; Dr. George Vázquez MD Energy Specialist: Signed Normal [facility] Carbon dioxide measurementOr dered By: Neptali Orellana on 11-27-2024 CO2 [Moles/Vol] 28.0 mmol/L 21.0-32.0 [facility] Chloride measurementOrdered By: Neptali Orellana on 11-27-2024 Chloride [Moles/Vol] 103 mmol/L 98-107 [facility] Estimated glomerular filtrat ion rate (GFR) AmericanOrdered By: Neptali Orellana on 11-27-2024 Estimated GFR (MDRD) Amer 88 mL/min >60 [facility] Comment on above: GFR Calc Glomerular filtration rate ( GFR) estimationOrdered By: Neptali Orellana on 11-27-2024 Estimated GFR (MDRD) Non-Af Amer 73 mL/min >60 [facility] Comment on above: Non- GFR Calc Glucose measurementOrdered B y: Neptali Orellana on 11-27-2024 Glucose [Mass/Vol] 112 mg/dL High 74-106 [facility] Comment on above: Fasting Glucose resu lt from 100 to 125 mg/dL suggests IMPAIRED HOMEOSTASIS per A.D.A. criteria. Potassium measurementOrdered By: Neptali Orlelana on 11-27-2024 Potassium [Moles/Vol] 3.9 mmol/L 3.5-5.1 [facility] Serum anion gap measurementO rdered By: Neptali Orellana on 11-27-2024 Anion gap [Moles/Vol] 6 mmol/L 5-15 [facility] Serum or plasma calcium jimbo urement (mass/volume)Ordered By: Neptali Orellana on 11-27-2024 Calcium [Mass/Vol] 9.0 mg/dL 8.5-10.1 [facility] Serum or plasma creatinine m easurement (mass/volume)Ordered By: Neptali Orellana on 11-27-2024 Creatinine [Mass/Vol] 1.07 mg/dL 0.70-1.30 [facility] Comment on above: The validity of the calculated GFR & GFRAA in patients over 70 years has not been determined. Clinical correlation is essential. Serum or plasma urea nitroge n measurement (mass/volume)Ordered By: Neptali Orellana on 11-27-2024 Urea nitrogen [Mass/Vol] 21 mg/dL High 7-18 [facility] Sodium levelOrdered By: Braxton Orellana on 11-27-2024 Sodium [Moles/Vol] 137 mmol/L 136-145 [facility] Absolute neutrophil countOrd ered By: Neptali Orellana on 11-26-2024 Neutrophils (Bld) [#/Vol] 5.3 10*3/uL 2.0-7.7 [facility] Basophil percentageOrdered B y: Neptali Orellana on 11-26-2024 Basophils/100 WBC (Bld) 0.4 % 0-1 [facility] CBC W/Diff, Automatedon 10-31 Absolute Lymph 2.06 X10 3/uL Normal 0.83-4.51 [facility] Comment on above: Performed By: #### L 300.8000 #### [facility] [address] [place], [address] Absolute Neut 5.3 X10 3/uL Normal 2.0-7.7 [facility] Comment on above: Performed By: #### L 300.8000 #### [facility] [address] [facility] [place], [address] Basophils/100 WBC (Bld) 0.4 % Normal 0-1 [facility] Comment on above: Performed By: #### L 300.8000 #### [facility] [address] [place], [address] Eosinophils/100 WBC (Bld) 0.2 % Normal 0-5 [facility] Comment on above: Performed By: #### L 300.8000 #### [facility] [address] [place], [address] Erythrocyte distribution width (RBC) [Ratio] 15.2 % High 11.6-14.6 [facility] Comment on above: Performed By: #### L 300.8000 #### [facility] [address] [place], [address] Hematocrit (Bld) [Volume fraction] 40.7 % Normal 40-54 [facility] Comment on above: Performed By: #### L 300.8000 #### [facility] [address] [place], [address] Hemoglobin (Bld) [Mass/Vol] 13.8 g/dL Normal 13.0-16.5 [facility] Comment on above: Performed By: #### L 300.8000 #### [facility] [address] [place], [address] IG% 0.700 Normal 0.0-0.9 [facility] Comment on above: Result Comment: IG% - Immature Granulocytes (promyelocytes, myelocytes and metamyelocytes) > 1% indicates that a LEFT SHIFT is Present. Performed By: #### L 300.8000 #### [facility] [address] [place], [address] Lymphocytes/100 WBC (Bld) 24.7 % Normal 19-41 [facility] Comment on above: Performed By: #### L 300.8000 #### [facility] [address] [place], [address] MCH (RBC) [Entitic mass] 32.4 pg High 27.0-32.0 [facility] Comment on above: Performed By: #### L 300.8000 #### [facility] [address] [place], [address] MCHC (RBC) [Mass/Vol] 33.9 g/dL Normal 32-36 [facility] Comment on above: Performed By: #### L 300.8000 #### [facility] [address] [place], [address] MCV (RBC) [Entitic vol] 95.5 fL High 80-94 [facility] Comment on above: Performed By: #### L 300.8000 #### [facility] [address] [place], [address] Monocytes/100 WBC (Bld) 10.1 % High 0-10 [facility] Comment on above: Performed By: #### L 300.8000 #### [facility] [address] [place], [address] Neutrophils/100 WBC (Bld) 63.9 % Normal 47-70 [facility] Comment on above: Performed By: #### L 300.8000 #### [facility] [address] [place], [address] Nucleated RBC (Bld) [#/Vol] 0 10*3/uL Normal 0-5 [facility] Comment on above: Performed By: #### L 300.8000 #### [facility] [address] [place], [address] Platelet mean volume (Bld) [Entitic vol] 9.7 fL Normal 6.2-12.0 [facility] Comment on above: Performed By: #### L 300.8000 #### [facility] [address] [place], [address] Platelets (Bld) [#/Vol] 205 10*3/uL Normal 150-450 [facility] Comment on above: Performed By: #### L 300.8000 #### [facility] [address] [place], [address] RBC (Bld) [#/Vol] 4.26 10*6/uL Low 4.6-6.2 [facility] Comment on above: Performed By: #### L 300.8000 #### [facility] [address] [place], [address] RDW SD 52.5 fl High 35.1-43.9 [facility] Comment on above: Performed By: #### L 300.8000 #### [facility] [address] [place], [address] WBC (Bld) [#/Vol] 8.3 10*3/uL Normal 4.4-11.0 [facility] Comment on above: Performed By: #### L 300.8000 #### [facility] [address] [place], [address] D-Dimer Quantitative (DVT/PE )on 11-26-2024 D-DIMER QUANT 0.66 FEU/ug/m Invalid Interpretation Code 0.27-0.49 [facility] Comment on above: Result Comment: D-Di krissy ELEVATED (>0.49): Additional studies and clinical assessments are indicated to conclude diagnosis of: Deep Vein Thrombosis (DVT) or Pulmonary Embolism (PE) CRITICAL VALUE CALLED TO JACQUELINE ROMAN 11/26/24 1109 Kate Araya. RESULTS READ BACK BY SAME. Performed By: #### L 300.8000 #### [facility] [address] [place], [address] D-dimer measurement for deep venous thrombosisOrdered By: Carrillo Malave on 11-26-2024 D-Dimer Quantitative (PE/DVT) 0.66 FEU/ug/m High 0.27-0.49 [facility] Comment on above: D-Dimer ELEVATED (>0 .49): Additional studies and clinicalassessments are indicated to conclude diagnosis of:Deep Vein Thrombosis (DVT) or Pulmonary Embolism (PE)CRITICAL VALUE CALLED TO JACQUELINE ROMAN11/26/24 1109 Kate [place].RESULTS READ BACK BY SAME. Eosinophil percentageOrdered By: Neptali Orellana on 11-26-2024 Eosinophils/100 WBC (Bld) 0.2 % 0-5 [facility] Erythrocyte distribution wid th ratioOrdered By: Neptali Orellana on 11-26-2024 Erythrocyte distribution width (RBC) [Ratio] 15.2 % High 11.6-14.6 [facility] Erythrocyte distribution wid th standard deviationOrdered By: Neptali Orellana on 11-26-2024 Erythrocyte distribution width (RBC) [Entitic vol] 52.5 fL High 35.1-43.9 [facility] Hematocrit Auto (Bld) [Volum e fraction]Ordered By: Neptali Orellana on 11-26-2024 Hematocrit (Bld) [Volume fraction] 40.7 % 40-54 [facility] Hemoglobin measurementOrdere d By: Neptali Orellana on 11-26-2024 Hemoglobin (Bld) [Mass/Vol] 13.8 g/dL 13.0-16.5 [facility] Immature granulocytes/100 WB C Auto (Bld)Ordered By: Neptali Orellana on 11-26-2024 Immature granulocytes/100 WBC (Bld) 0.700 % 0.0-0.9 [facility] Comment on above: IG% - Immature Granu locytes (promyelocytes, myelocytes and metamyelocytes) > 1% indicates that a LEFT SHIFT is Present. Lymphocytes Auto (Unsp spec) [#/Vol]Ordered By: Neptali Orellana on 11-26-2024 Lymphocytes (Bld) [#/Vol] 2.06 10*3/uL 0.83-4.51 [facility] Lymphocytes/100 WBC Auto (Un sp spec)Ordered By: Neptali Orellana on 11-26-2024 Lymphocytes/100 WBC (Bld) 24.7 % 19-41 [facility] MCV (mean corpuscular volume ) determinationOrdered By: Neptali Orellana on 11-26-2024 MCV (RBC) [Entitic vol] 95.5 fL High 80-94 [facility] Mean corpuscular hemoglobin (MCH) determinationOrdered By: Neptali Orellana on 11-26-2024 MCH (RBC) [Entitic mass] 32.4 pg High 27.0-32.0 [facility] Mean corpuscular hemoglobin concentration (MCHC) determinationOrdered By: Neptali Orellana on 11-26-2024 MCHC (RBC) [Mass/Vol] 33.9 g/dL 32-36 [facility] Mean platelet volume determi nationOrdered By: Neptali Orellana on 11-26-2024 Platelet mean volume (Bld) [Entitic vol] 9.7 fL 6.2-12.0 [facility] Monocyte percentageOrdered B y: Neptali Orellana on 11-26-2024 Monocytes/100 WBC (Bld) 10.1 % High 0-10 [facility] Neutrophil percentageOrdered By: Neptali Orellana on 11-26-2024 Neutrophils/100 WBC (Bld) 63.9 % 47-70 [facility] Nucleated red blood cell per centageOrdered By: Neptali Orellana on 11-26-2024 Nucleated RBC/100 WBC (Bld) [Ratio] 0 % 0-5 [facility] Platelet countOrdered By: Sierra Orellana on 11-26-2024 Platelets (Bld) [#/Vol] 205 10*3/uL 150-450 [facility] RBC Auto (Bld) [#/Vol]Ordere d By: Neptali Orellana on 11-26-2024 RBC (Bld) [#/Vol] 4.26 10*6/uL Low 4.6-6.2 [facility] White blood cell (WBC) count Ordered By: Neptali Orellana on 11-26-2024 WBC (Bld) [#/Vol] 8.3 10*3/uL 4.4-11.0 [facility] 6 Minute Walk Teston 025 6 Minute Walk Test y [facility] [address] [place] [address] MR#: [id number] Acct: [id number] Name: HORACE HENDERSON Rep #: [id number] : 1955 69 From: Tevin Nelson DO Referring Dr: Radha Roberts 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 Status: REG CLI Location: PSN Date: Sex: M C PSN 6 Minute Walk Test 6 Minute Walk Test 6 Minute Walk Test: 6 Minute Walk Test PSN:6-Minute Walk Test Start: 11/06/24 10:49 Freq: Status: Active Protocol: RESP.6MINW Document 11/06/24 10:49 MONIYUAN (Rec: 11/06/24 10:51 [facility] [id number]) 6 Minute Walk Test Date Performed 11/06/24 Time Performed 10:30 Height 5 ft 7 in Weight: 180 lb Weight in Pounds 180.[address]: Radha Roberts PARKING WORKER Assistive device used: None Pre-test Oxygen Delivery [...] Dictated: 11/11/24 1300 Date Transcribed: 11/11/24 1300 Energy Specialist: Dr. Tevin Nelson DO Signed Normal [facility] Bilirubin directOrdered By: Carrillo Malave on 11-06-2024 Bilirubin.direct [Mass/Vol] 0.22 mg/dL 0.00-0.30 [facility] Bilirubin, totalOrdered By: Carrillo Malave on 11-06-2024 Bilirubin [Mass/Vol] 0.60 mg/dL 0.20-1.00 [facility] Comment on above: For patients on eltr ombopag therapy, use of Dimension [place] TBIL is not recommended. High density lipoprotein (HD L) measurementOrdered By: Carrillo Malave on 11-06-2024 Cholesterol in HDL [Mass/Vol] 98 mg/dL >40 [facility] Comment on above: The drugs N-Acetylcy steine and Metamizole may falsely depress this assay. Reference Range HDL <40 mg/dL Low HDL Cholesterol HDL >or= 60 mg/dL High HDL Cholesterol Laboratory - Chemistry and C hemistry - challengeOrdered By: Carrillo Malave on 11-06-2024 AST [Catalytic activity/Vol] 25 U/L 15-37 [facility] Lipid Profileon 11-06-2024 Cholesterol [Mass/Vol] 143 mg/dL Normal 200 [facility] Comment on above: Result Comment: <200 mg/dL Desirable 200-240 mg/dL Borderline >240 mg/dL High Risk Performed By: #### L 300.8000 #### [facility] [address] [place], [address] Cholesterol in HDL [Mass/Vol] 98 mg/dL Normal [facility] Comment on above: Result Comment: The drugs N-Acetylcysteine and Metamizole may falsely depress this assay. Reference Range HDL <40 mg/dL Low HDL Cholesterol HDL >or= 60 mg/dL High HDL Cholesterol Performed By: #### L 300.8000 #### [facility] [address] [place], [address] Cholesterol in LDL [Mass/Vol] 28 mg/dL Normal 0-130 [facility] Comment on above: Performed By: #### L 300.8000 #### [facility] [address] [place], [address] Cholesterol in VLDL [Mass/Vol] 17 mg/dL Normal 5-40 [facility] Comment on above: Performed By: #### L 300.8000 #### [facility] [address] [place], [address] Triglyceride [Mass/Vol] 86 mg/dL Normal [facility] Comment on above: Result Comment: The drugs N-Acetylcysteine and Metamizole may falsely depress this assay. Serum Triglycerides Reference Interval Normal <150 mg/dL Borderline high 150 - 199 mg/dL High 200 - 499 mg/dL Very High > or = 500 mg/dL Performed By: #### L 300.8000 #### [facility] [address] [place], [address] Liver Profileon 11-06-2024 Albumin [Mass/Vol] 3.2 g/dL Normal 3.2-5.0 [facility] Comment on above: Performed By: #### L 100.0100 #### [facility] [address] [place], [address] ALK P 67 U/L Normal 45-117 [facility] Comment on above: Performed By: #### L 100.0100 #### [facility] [address] [place], [address] ALT [Catalytic activity/Vol] 31 U/L Normal 16-61 [facility] Comment on above: Performed By: #### L 100.0100 #### [facility] [address] [place], [address] AST [Catalytic activity/Vol] 25 U/L Normal 15-37 [facility] Comment on above: Performed By: #### L 100.0100 #### [facility] [address] [place], [address] Bilirubin [Mass/Vol] 0.60 mg/dL Normal 0.20-1.00 [facility] Comment on above: Result Comment: For patients on eltrombopag therapy, use of Dimension [place] TBIL is not recommended. Performed By: #### L 100.0100 #### [facility] [address] [place], [address] Bilirubin.direct [Mass/Vol] 0.22 mg/dL Normal 0.00-0.30 [facility] Comment on above: Performed By: #### L 100.0100 #### [facility] [address] [place], [address] Globulin (S) [Mass/Vol] 3.1 g/dL Normal 2.2-4.2 [facility] Comment on above: Performed By: #### L 100.0100 #### [facility] [address] [place], [address] T PROT 6.3 g/dL Low 6.4-8.2 [facility] Comment on above: Performed By: #### L 100.0100 #### [facility] [address] [place], [address] Low density lipoprotein (LDL ) cholesterol measurementOrdered By: Carrillo Malave on 11-06-2024 Cholesterol in LDL [Mass/Vol] 28 mg/dL 0-130 [facility] Serum globulin measurementOr dered By: Carrillo Malave on 11-06-2024 Globulin (S) [Mass/Vol] 3.1 g/dL 2.2-4.2 [facility] Serum or plasma alanine gomez otransferase (ALT) measurementOrdered By: Carrillo Malave on 11-06-2024 ALT [Catalytic activity/Vol] 31 U/L 16-61 [facility] Serum or plasma albumin jimbo urement (mass/volume)Ordered By: Carrillo Malave on 11-06-2024 Albumin [Mass/Vol] 3.2 g/dL 3.2-5.0 [facility] Serum or plasma alkaline atif sphatase measurementOrdered By: Carrillo Malave on 11-06-2024 ALP [Catalytic activity/Vol] 67 U/L 45-117 [facility] Serum or plasma cholesterol measurement (mass/volume)Ordered By: Carrillo Malave on 11-06-2024 Cholesterol [Mass/Vol] 143 mg/dL <200 [facility] Comment on above: <200 mg/dL Desirable 200-240 mg/dL Borderline >240 mg/dL High Risk TSH QnOrdered By: Carrillo daley on 11-06-2024 Thyroid Stimulating Hormone (TSH) 1.320 uIU/mL 0.358-3.740 [facility] Thyroid Stim Hormone (TSH)on 11-06-2024 TSH 1.320 uIU/mL Normal 0.358-3.740 [facility] Comment on above: Performed By: #### L 300.8000 #### [facility] [address] [place], [address] Total proteinOrdered By: Randy Malave on 11-06-2024 Protein [Mass/Vol] 6.3 g/dL Low 6.4-8.2 [facility] Triglycerides measurementOrd ered By: Carrillo Malave on 11-06-2024 Triglyceride [Mass/Vol] 86 mg/dL <199 [facility] Comment on above: The drugs N-Acetylcy steine and Metamizole may falsely depress this assay.Serum Triglycerides Reference Interval Normal <150 mg/dL Borderline high 150 - 199 mg/dL High 200 - 499 mg/dL Very High > or = 500 mg/dL Very low density lipoprotein (VLDL) cholesterol measurementOrdered By: Carrillo Malave on 11-06-2024 VLDL Cholesterol 17 mg/dL 5-40 [facility] 12 Lead EKG performed by [facility] on 11-05-2024 12 Lead EKG performed by [facility] [address] [place] [address] 12 Lead EKG performed by [facility] 11/05/24 1309 MR#: [id number] Acct: [id number] Name: HORACE HENDERSON Rep #: [id number] : 1955 69 From: Carrillo Malave MD Attending Dr: Dr. Carrillo Malave MD Status: DE P AMB Ordering Dr: Carrillo Malave MD Date: 11/05/24 Location: [facility] Sex: M C Admitted: BMS/12 Lead EKG performed by [facility] ECG Report Interpretation --Sinus Tachycardia -Right bundle branch block with left axis -bifascicular block. ABNORMAL Electronically signed on 11/05/2024 at 15:[address] Carrillo Malave [employer] Version 8610 11/05/24 1511 Date Carrillo Malave MD CC: Dr. George Vázquez MD Date Dictated: 11/05/24 1309 Date Transcribed: 11/05/24 130 Energy Specialist: Signed Normal [facility] Cardiology Visit Reporton Cardiology Visit Report [facility] [address] [place] [address] OFFICE VISIT Date of Service: 11/05/24 MR#: [id number] Acct: [id number] Name: HORACE HENDERSON Rep #: [id number] : 1955 Provider: Dr. Carrillo mirza MD Age/Sex: 69/M Location: [facility] Status: Signed HPI HPI History of Present [...] artery last one occurring in 2020 at [facility]. The patient was recently admitted to the [...] to be medication induced related to his MIRZA and Lasix therapy. An echocardiogram done during [...] procedures, etc.??? It was recommended by the family educator that he be referred to a tertiary care center for consideration for a higher risk PCI procedure which may include procedure such as atherectomy and Rotablator therapy of the RCA as well as an LCx in-stent restenosis lesion that was not intervened on at the time during his hospitalization in September 2021.??? He was referred to interventional team with Dr. Juventino Ulrich.??? 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 Normal [facility] Basic Metabolic Profile (BMP )on 10-31-2024 BUN Normal - [facility] Comment on above: Result Comment: Canc elled via OM: Order cancelled - Patient discharged Performed By: #### L 300.8000 #### [facility] [address] [place], [address] BUN/CRE Normal - [facility] Comment on above: Result Comment: Canc elled via OM: Order cancelled - Patient discharged Performed By: #### L 300.8000 #### [facility] [address] [place], [address] CA,Total Normal 8.5-10.1 [facility] Comment on above: Result Comment: Canc elled via OM: Order cancelled - Patient discharged Performed By: #### L 300.8000 #### [facility] [address] [place], [address] CL Normal 98-107 [facility] Comment on above: Result Comment: Canc elled via OM: Order cancelled - Patient discharged Performed By: #### L 300.8000 #### [facility] [address] [place], [address] CO2 Normal 21.0-32.0 [facility] Comment on above: Result Comment: Canc elled via OM: Order cancelled - Patient discharged Performed By: #### L 300.8000 #### [facility] [address] [place], [address] CREAT,SERUM Normal 0.70-1.30 [facility] Comment on above: Result Comment: Canc elled via OM: Order cancelled - Patient discharged Performed By: #### L 300.8000 #### [facility] [address] [place], [address] EST GFR Normal >60 [facility] Comment on above: Result Comment: Canc elled via OM: Order cancelled - Patient discharged Performed By: #### L 300.8000 #### [facility] [address] [place], [address] EST GFR - AA Normal >60 [facility] Comment on above: Result Comment: Canc elled via OM: Order cancelled - Patient discharged Performed By: #### L 300.8000 #### [facility] [address] [place], [address] GAP Normal 5-15 [facility] Comment on above: Result Comment: Canc elled via OM: Order cancelled - Patient discharged Performed By: #### L 300.8000 #### [facility] [address] [place], [address] GLU Normal 74-106 [facility] Comment on above: Result Comment: Canc elled via OM: Order cancelled - Patient discharged Performed By: #### L 300.8000 #### [facility] [address] [place], [address] Potassium Normal 3.5-5.1 [facility] Comment on above: Result Comment: Canc elled via OM: Order cancelled - Patient discharged Performed By: #### L 300.8000 #### [facility] [address] [place], [address] Basic Metabolic Profile (BMP) Normal 136-145 [facility] Comment on above: Result Comment: Canc elled via OM: Order cancelled - Patient discharged Performed By: #### L 300.8000 #### [facility] [address] [place], [address] Basic Metabolic Profile (BMP )on 10-30-2024 BUN Normal 7-18 [facility] Comment on above: Result Comment: Canc elled via OM: Order cancelled - Patient discharged Performed By: #### L 300.8000 #### [facility] [address] [place], [address] BUN/CRE Normal 10-20 [facility] Comment on above: Result Comment: Canc elled via OM: Order cancelled - Patient discharged Performed By: #### L 300.8000 #### [facility] [address] [place], [address] CA,Total Normal 8.5-10.1 [facility] Comment on above: Result Comment: Canc elled via OM: Order cancelled - Patient discharged Performed By: #### L 300.8000 #### [facility] [address] [place], [address] CL Normal 98-107 [facility] Comment on above: Result Comment: Canc elled via OM: Order cancelled - Patient discharged Performed By: #### L 300.8000 #### [facility] [address] [place], [address] CO2 Normal 21.0-32.0 [facility] Comment on above: Result Comment: Canc elled via OM: Order cancelled - Patient discharged Performed By: #### L 300.8000 #### [facility] [address] [place], [address] CREAT,SERUM Normal 0.70-1.30 [facility] Comment on above: Result Comment: Canc elled via OM: Order cancelled - Patient discharged Performed By: #### L 300.8000 #### [facility] [address] [place], [address] EST GFR Normal >60 [facility] Comment on above: Result Comment: Canc elled via OM: Order cancelled - Patient discharged Performed By: #### L 300.8000 #### [facility] [address] [place], [address] EST GFR - AA Normal >60 [facility] Comment on above: Result Comment: Canc elled via OM: Order cancelled - Patient discharged Performed By: #### L 300.8000 #### [facility] [address] [place], [address] GAP Normal 5-15 [facility] Comment on above: Result Comment: Canc elled via OM: Order cancelled - Patient discharged Performed By: #### L 300.8000 #### [facility] [address] [place], [address] GLU Normal 74-106 [facility] Comment on above: Result Comment: Canc elled via OM: Order cancelled - Patient discharged Performed By: #### L 300.8000 #### [facility] [address] [place], [address] Potassium Normal 3.5-5.1 [facility] Comment on above: Result Comment: Canc elled via OM: Order cancelled - Patient discharged Performed By: #### L 300.8000 #### [facility] [address] [place], [address] Basic Metabolic Profile (BMP) Normal 136-145 [facility] Comment on above: Result Comment: Canc elled via OM: Order cancelled - Patient discharged Performed By: #### L 300.8000 #### [facility] [address] [place], [address] Basic Metabolic Profile (BMP )on 10-29-2024 BUN Normal 7-18 [facility] Comment on above: Result Comment: Canc elled via OM: Order cancelled - Patient discharged Performed By: #### L 500.2500 ####[facility] [address] [place], [address] BUN/CRE Normal 10-20 [facility] Comment on above: Result Comment: Canc elled via OM: Order cancelled - Patient discharged Performed By: #### L 500.2500 ####[facility] [address] [place], [address] CA,Total Normal 8.5-10.1 [facility] Comment on above: Result Comment: Canc elled via OM: Order cancelled - Patient discharged Performed By: #### L 500.2500 ####[facility] [address] [place], [address] CL Normal 98-107 [facility] Comment on above: Result Comment: Canc elled via OM: Order cancelled - Patient discharged Performed By: #### L 500.2500 ####[facility] [address] [place], [address] CO2 Normal 21.0-32.0 [facility] Comment on above: Result Comment: Canc elled via OM: Order cancelled - Patient discharged Performed By: #### L 500.2500 ####[facility] [address] [place], [address] CREAT,SERUM Normal 0.70-1.30 [facility] Comment on above: Result Comment: Canc elled via OM: Order cancelled - Patient discharged Performed By: #### L 500.2500 ####[facility] [address] [place], [address] EST GFR Normal >60 [facility] Comment on above: Result Comment: Canc elled via OM: Order cancelled - Patient discharged Performed By: #### L 500.2500 ####[facility] [address] [place], [address] EST GFR - AA Normal >60 [facility] Comment on above: Result Comment: Canc elled via OM: Order cancelled - Patient discharged Performed By: #### L 500.2500 ####[facility] [address] [place], [address] GAP Normal 5-15 [facility] Comment on above: Result Comment: Canc elled via OM: Order cancelled - Patient discharged Performed By: #### L 500.2500 ####[facility] [address] [place], [address] GLU Normal 74-106 [facility] Comment on above: Result Comment: Canc elled via OM: Order cancelled - Patient discharged Performed By: #### L 500.2500 ####[facility] [address] [place], [address] Potassium Normal 3.5-5.1 [facility] Comment on above: Result Comment: Canc elled via OM: Order cancelled - Patient discharged Performed By: #### L 500.2500 ####[facility] [address] [place], [address] Basic Metabolic Profile (BMP) Normal 136-145 [facility] Comment on above: Result Comment: Canc elled via OM: Order cancelled - Patient discharged Performed By: #### L 500.2500 ####[facility] [address] [place], [address] Basic Metabolic Profile (BMP )on 10-28-2024 BUN/CRE 12.8 RATIO Normal 10-20 [facility] Comment on above: Performed By: #### L 100.0500, L500.2500 #### [facility] [address] [place], [address] CA,Total 8.9 mg/dL Normal 8.5-10.1 [facility] Comment on above: Performed By: #### L 100.0500, L500.2500 #### [facility] [address] [place], [address] Chloride [Moles/Vol] 104 mmol/L Normal 98-107 [facility] Comment on above: Performed By: #### L 100.0500, L500.2500 #### [facility] [address] [place], [address] CO2 [Moles/Vol] 30.0 mmol/L Normal 21.0-32.0 [facility] Comment on above: Performed By: #### L 100.0500, L500.2500 #### [facility] [address] [place], [address] Creatinine [Mass/Vol] 2.03 mg/dL High 0.70-1.30 [facility] Comment on above: Result Comment: The validity of the calculated GFR GFRAA in patients over 70 years has not been determined. Clinical correlation is essential. Performed By: #### L 100.0500, L500.2500 #### [facility] [address] [place], [address] ECRCL 34.51 ml/min Normal [facility] Comment on above: Performed By: #### L 100.0500, L500.2500 #### [facility] [address] [place], [address] EST GFR - AA 42 mL/min Low >60 [facility] Comment on above: Result Comment: Afri can Fijian GFR Calc Performed By: #### L 100.0500, L500.2500 #### [facility] [address] [place], [address] GAP 3 Low 5-15 [facility] Comment on above: Performed By: #### L 100.0500, L500.2500 #### [facility] [address] [place], [address] GFR/1.73 sq M.predicted among non-blacks MDRD (S/P/Bld) [Vol rate/Area] 35 mL/min/{1.73_m2} Low >60 [facility] Comment on above: Result Comment: Non- GFR Calc Performed By: #### L 100.0500, L500.2500 #### [facility] [address] [place], [address] Glucose [Mass/Vol] 135 mg/dL High 74-106 [facility] Comment on above: Result Comment: Fast ing Glucose result greater than or equal to 126 mg/dL suggests DIABETES MELLITUS per A.D.A. criteria. Performed By: #### L 100.0500, L500.2500 #### [facility] [address] [place], [address] Potassium [Moles/Vol] 3.0 mmol/L Low 3.5-5.1 [facility] Comment on above: Performed By: #### L 100.0500, L500.2500 #### [facility] [address] [place], [address] Sodium [Moles/Vol] 138 mmol/L Normal 136-145 [facility] Comment on above: Performed By: #### L 100.0500, L500.2500 #### [facility] [address] [place], [address] Urea nitrogen [Mass/Vol] 26 mg/dL High 7-18 [facility] Comment on above: Performed By: #### L 100.0500, L500.2500 #### [facility] [address] [place], [address] Blood urea nitrogen (BUN)/cr eatinine ratioOrdered By: Vicente Andrews on 10-28-2024 Urea nitrogen/Creatinine [Mass ratio] 12.8 mg/mg 10-20 [facility] CBC-Complete Blood Cnt No Di ffon 10-28-2024 Erythrocyte distribution width (RBC) [Ratio] 13.5 % Normal 11.6-14.6 [facility] Comment on above: Performed By: #### L 100.0500, L500.2500 #### [facility] [address] [place], [address] Hematocrit (Bld) [Volume fraction] 39.4 % Low 40-54 [facility] Comment on above: Performed By: #### L 100.0500, L500.2500 #### [facility] [address] [place], [address] Hemoglobin (Bld) [Mass/Vol] 13.4 g/dL Normal 13.0-16.5 [facility] Comment on above: Performed By: #### L 100.0500, L500.2500 #### [facility] [address] [place], [address] MCH (RBC) [Entitic mass] 32.0 pg Normal 27.0-32.0 [facility] Comment on above: Performed By: #### L 100.0500, L500.2500 #### [facility] [address] [place], [address] MCHC (RBC) [Mass/Vol] 34.0 g/dL Normal 32-36 [facility] Comment on above: Performed By: #### L 100.0500, L500.2500 #### [facility] [address] [place], [address] MCV (RBC) [Entitic vol] 94.0 fL Normal 80-94 [facility] Comment on above: Performed By: #### L 100.0500, L500.2500 #### [facility] [address] [place] [place], [address] Platelet mean volume (Bld) [Entitic vol] 9.4 fL Normal 6.2-12.0 [facility] Comment on above: Performed By: #### L 100.0500, L500.2500 #### [facility] [address] [place], [address] Platelets (Bld) [#/Vol] 148 10*3/uL Low 150-450 [facility] Comment on above: Performed By: #### L 100.0500, L500.2500 #### [facility] [address] [place], [address] RBC (Bld) [#/Vol] 4.19 10*6/uL Low 4.6-6.2 [facility] Comment on above: Performed By: #### L 100.0500, L500.2500 #### [facility] [address] [place], [address] RDW SD 45.9 fl High 35.1-43.9 [facility] Comment on above: Performed By: #### L 100.0500, L500.2500 #### [facility] [address] [place], [address] WBC (Bld) [#/Vol] 8.3 10*3/uL Normal 4.4-11.0 [facility] Comment on above: Performed By: #### L 100.0500, L500.2500 #### [facility] [address] [place], [address] Carbon dioxide measurementOr dered By: Vicente Andrews on 10-28-2024 CO2 [Moles/Vol] 30.0 mmol/L 21.0-32.0 [facility] Chloride measurementOrdered By: Vicente Andrews on 10-28-2024 Chloride [Moles/Vol] 104 mmol/L 98-107 [facility] Discharge Instructionon 10-01 Discharge Instruction [facility] Medical Records Department [address] [place] [address] Instructions for Home/Discharge Instructions 10/28/24 1637 MR#: [id number] Acct: [id number] Name: HORACE HENDERSON Rep #: [id number] : 1955 69 From: Vicente Andrews DO [...] can be placed): Home, Self Care 10/28/24 9380 Vicente Andrews DO CC: Dr. George Vázquez MD Signed Normal [facility] Echo Complete W/ Contraston 10-28-2024 Echo Complete W/ Contrast [facility] Services [address] [place] [address] Echo Complete W/ Contrast 10/28/24 1331 MR#: [id number] Acct: [id number] Name: HORACE HENDERSON Rep #: [id number] : 1955 69 From: Tomy Hanks MD Attending Dr: Dr. Vicente Andrews, Status : ADM GONZÁLEZ Ordering Dr: Vicente Andrews DO Date: 10/28/24 Location: PCU Sex: M C Admitted: 10/27/24 Reason For [...] mmHg. Contrast injection was performed. Ordering Physician: Mosteller, Vicente Performed By: Delia Sharp, RDCS 10/28/241628 Date Tomy Hanks MD CC: Dr. Vicente Andrews, DO; Dr. George Vázquez MD Date Dictated: 10/28/24 1331 Date Transcribed: 10/28/241628 Energy Specialist: Signed Normal [facility] Erythrocyte distribution wid th ratioOrdered By: Vicente Andrews on 10-28-2024 Erythrocyte distribution width (RBC) [Ratio] 13.5 % 11.6-14.6 [facility] Erythrocyte distribution wid th standard deviationOrdered By: Vicente Adnrews on 10-28-2024 Erythrocyte distribution width (RBC) [Entitic vol] 45.9 fL High 35.1-43.9 [facility] Estimated glomerular filtrat ion rate (GFR) AmericanOrdered By: Vicente Andrews on 10-28-2024 Estimated GFR (MDRD) Amer 42 mL/min Low >60 [facility] Comment on above: GFR Calc Estimation of creatinine rosi aranceOrdered By: Vicente Andrews on 10-28-2024 Estimated Creatinine Clearance Calc 34.51 ml/min [facility] Glomerular filtration rate ( GFR) estimationOrdered By: Vicente Andrews on 10-28-2024 Estimated GFR (MDRD) Non-Af Amer 35 mL/min Low >60 [facility] Comment on above: Non- GFR Calc Glucose measurementOrdered B y: Vicente Andrews on 10-28-2024 Glucose [Mass/Vol] 135 mg/dL High 74-106 [facility] Comment on above: Fasting Glucose resu lt greater than or equal to 126 mg/dL suggests DIABETES MELLITUS per A.D.A. criteria. Hematocrit Auto (Bld) [Volum e fraction]Ordered By: Vicente Andrews on 10-28-2024 Hematocrit (Bld) [Volume fraction] 39.4 % Low 40-54 [facility] Hemoglobin measurementOrdere d By: Vicente Andrews on 10-28-2024 Hemoglobin (Bld) [Mass/Vol] 13.4 g/dL 13.0-16.5 [facility] MCV (mean corpuscular volume ) determinationOrdered By: Vicente Andrews on 10-28-2024 MCV (RBC) [Entitic vol] 94.0 fL 80-94 [facility] Magnesiumon 10-28-2024 Magnesium [Mass/Vol] 2.5 mg/dL Normal 1.6-2.6 [facility] Comment on above: Performed By: #### L 501.2300, L501.5200 ####[facility] [address] [place], [address] Magnesium measurementOrdered By: Vicente Andrews on 10-28-2024 Magnesium [Mass/Vol] 2.5 mg/dL 1.6-2.6 [facility] Mean corpuscular hemoglobin (MCH) determinationOrdered By: Vicente Andrews on 10-28-2024 MCH (RBC) [Entitic mass] 32.0 pg 27.0-32.0 [facility] Mean corpuscular hemoglobin concentration (MCHC) determinationOrdered By: Vicente Andrews on 10-28-2024 MCHC (RBC) [Mass/Vol] 34.0 g/dL 32-36 [facility] Mean platelet volume determi nationOrdered By: Vicente Andrews on 10-28-2024 Platelet mean volume (Bld) [Entitic vol] 9.4 fL 6.2-12.0 [facility] Phosphoruson 10-28-2024 Phosphate [Mass/Vol] 2.3 mg/dL Low 2.5-4.9 [facility] Comment on above: Performed By: #### L 501.2300, L501.5200 ####[facility] [address] [place], [address] Phosphorus measurementOrdere d By: Vicente Andrews on 10-28-2024 Phosphorus Level 2.3 mg/dL Low 2.5-4.9 [facility] Platelet countOrdered By: Nj Andrews on 10-28-2024 Platelets (Bld) [#/Vol] 148 10*3/uL Low 150-450 [facility] Potassium measurementOrdered By: Vicente Andrews on 10-28-2024 Potassium [Moles/Vol] 3.0 mmol/L Low 3.5-5.1 [facility] RBC Auto (Bld) [#/Vol]Ordere d By: Vicente Andrews on 10-28-2024 RBC (Bld) [#/Vol] 4.19 10*6/uL Low 4.6-6.2 [facility] Serum anion gap measurementO rdered By: Vicente Andrews on 10-28-2024 Anion gap [Moles/Vol] 3 mmol/L Low 5-15 [facility] Serum or plasma calcium jimbo urement (mass/volume)Ordered By: Vicente Andrews on 10-28-2024 Calcium [Mass/Vol] 8.9 mg/dL 8.5-10.1 [facility] Serum or plasma creatinine m easurement (mass/volume)Ordered By: Vicente Andrews on 10-28-2024 Creatinine [Mass/Vol] 2.03 mg/dL High 0.70-1.30 [facility] Comment on above: The validity of the calculated GFR & GFRAA in patients over 70 years has not been determined. Clinical correlation is essential. Serum or plasma urea nitroge n measurement (mass/volume)Ordered By: Vicente Andrews on 10-28-2024 Urea nitrogen [Mass/Vol] 26 mg/dL High 7-18 [facility] Sodium levelOrdered By: Pablo Andrews on 10-28-2024 Sodium [Moles/Vol] 138 mmol/L 136-145 [facility] White blood cell (WBC) count Ordered By: Vicente Andrews on 10-28-2024 WBC (Bld) [#/Vol] 8.3 10*3/uL 4.4-11.0 [facility] 12 Lead EKGon 10-27-2024 12 Lead EKG [facility] Services [address] [place] [address] 12 Lead EKG 10/27/24 1228 MR#: [id number] Acct: [id number] Name: HORACE HENDERSON Rep #: [id number] : 1955 69 From: Tomy Hanks MD Attending Dr: Dr. Vicente Andrews DO Status : ADM GONZÁLEZ Ordering Dr: John Harvey Date: 10/27/24 Location: [facility] Sex: M C Admitted: 10/27/24 Test [...] Abnormal ECG Confirmed by LATONYA LOPEZ, TOMY ([id number]), fan mail editor REBEL PRICE ([id number]) on 10/28/2024 10:53:45 AM Referred By: LÁZARO Confirmed By: TOMY HANKS MD 10/28/24 1053 Date Tomy Hanks MD CC: Dr. Vicente Andrews DO; Dr. George Vázquez MD; RENEE Beckett Signed Normal [facility] Absolute neutrophil countOrd ered By: John Harvey on 10-27-2024 Neutrophils (Bld) [#/Vol] 9.2 10*3/uL High 2.0-7.7 [facility] Basic Metabolic Profile (BMP )on 10-27-2024 BUN/CRE 13.6 RATIO Normal 10-20 [facility] Comment on above: Order Comment: 'TROP ' Serial specimen #1, #2 or #3: 1 Performed By: #### L 300.8000 #### [facility] [address] [place], [address] CA,Total 9.3 mg/dL Normal 8.5-10.1 [facility] Comment on above: Order Comment: 'TROP ' Serial specimen #1, #2 or #3: 1 Performed By: #### L 300.8000 #### [facility] [address] [place], [address] Chloride [Moles/Vol] 100 mmol/L Normal 98-107 [facility] Comment on above: Order Comment: 'TROP ' Serial specimen #1, #2 or #3: 1 Performed By: #### L 300.8000 #### [facility] [address] [place], [address] CO2 [Moles/Vol] 25.0 mmol/L Normal 21.0-32.0 [facility] Comment on above: Order Comment: 'TROP ' Serial specimen #1, #2 or #3: 1 Performed By: #### L 300.8000 #### [facility] [address] [place], [address] Creatinine [Mass/Vol] 2.13 mg/dL High 0.70-1.30 [facility] Comment on above: Order Comment: 'TROP ' Serial specimen #1, #2 or #3: 1 Result Comment: The validity of the calculated GFR GFRAA in patients over 70 years has not been determined. Clinical correlation is essential. Performed By: #### L 300.8000 #### [facility] [address] [place], [address] ECRCL 33.31 ml/min Normal [facility] Comment on above: Order Comment: 'TROP ' Serial specimen #1, #2 or #3: 1 Performed By: #### L 300.8000 #### [facility] [address] [place], [address] EST GFR - AA 40 mL/min Low >60 [facility] Comment on above: Order Comment: 'TROP ' Serial specimen #1, #2 or #3: 1 Result Comment: Afri can Fijian GFR Calc Performed By: #### L 300.8000 #### [facility] [address] [place], [address] GAP 6 Normal 5-15 [facility] Comment on above: Order Comment: 'TROP ' Serial specimen #1, #2 or #3: 1 Performed By: #### L 300.8000 #### [facility] [address] [place], [address] GFR/1.73 sq M.predicted among non-blacks MDRD (S/P/Bld) [Vol rate/Area] 33 mL/min/{1.73_m2} Low >60 [facility] Comment on above: Order Comment: 'TROP ' Serial specimen #1, #2 or #3: 1 Result Comment: Non- GFR Calc Performed By: #### L 300.8000 #### [facility] [address] [place], [address] Glucose [Mass/Vol] 120 mg/dL High 74-106 [facility] Comment on above: Order Comment: 'TROP ' Serial specimen #1, #2 or #3: 1 Result Comment: Fast ing Glucose result from 100 to 125 mg/dL suggests IMPAIRED HOMEOSTASIS per A.D.A. criteria. Performed By: #### L 300.8000 #### [facility] [address] [place], [address] Potassium [Moles/Vol] 3.8 mmol/L Normal 3.5-5.1 [facility] Comment on above: Order Comment: 'TROP ' Serial specimen #1, #2 or #3: 1 Result Comment: Mode rate Hemolysis, Result may be falsely increased. Performed By: #### L 300.8000 #### [facility] [address] [place], [address] Sodium [Moles/Vol] 130 mmol/L Low 136-145 [facility] Comment on above: Order Comment: 'TROP ' Serial specimen #1, #2 or #3: 1 Performed By: #### L 300.8000 #### [facility] [facility] [address] [place], [address] Urea nitrogen [Mass/Vol] 29 mg/dL High 7-18 [facility] Comment on above: Order Comment: 'TROP ' Serial specimen #1, #2 or #3: 1 Performed By: #### L 300.8000 #### [facility] [address] [place], [place], [address] Basophil percentageOrdered B y: John Harvey on 10-27-2024 Basophils/100 WBC (Bld) 0.3 % 0-1 [facility] Bilirubin Test strip Ql (U)O rdered By: John Harvey on 10-27-2024 Bilirubin Ql (U) Negative Negative [facility] Brain/Head without Contrasto n 10-27-2024 Brain/Head without Contrast [facility] Imaging Services [address] [place] [address] Brain/Head without Contrast MR#: [id number] Acct: [id number] Name: HORACE HENDERSON Rep #: [id number] : 1955 M 69 From: Pablo Gross MD PCP: Dr. George Vázquez MD Status: REG ER Study: Brain/Head without Contrast Date of Exam: 09/30 07/23 Exam# [id number] Ordering Dr: John Harvey [id number] EXAM: CT HEAD WITHOUT INTRAVENOUS CONTRAST CLINICAL [...] Signed: Pablo Gross MD at 12:54 EST , CC: Dr. George Vázquez MD; R[employer]EE [employer] Specialist: Signed Normal [facility] CBC W/Diff, Automatedon 12-2 Absolute Lymph 1.48 X10 3/uL Normal 0.83-4.51 [facility] Comment on above: Performed By: #### L 300.8000 #### [facility] [address] [place], [address] Absolute Neut 9.2 X10 3/uL High 2.0-7.7 [facility] Comment on above: Performed By: #### L 300.8000 #### [facility] [address] [place], [address] Basophils/100 WBC (Bld) 0.3 % Normal 0-1 [facility] Comment on above: Performed By: #### L 300.8000 #### [facility] [address] [place], [address] Eosinophils/100 WBC (Bld) 0.3 % Normal 0-5 [facility] Comment on above: Performed By: #### L 300.8000 #### [facility] [address] [place], [address] Erythrocyte distribution width (RBC) [Ratio] 13.4 % Normal 11.6-14.6 [facility] Comment on above: Performed By: #### L 300.8000 #### [facility] [address] [place], [address] Hematocrit (Bld) [Volume fraction] 43.4 % Normal 40-54 [facility] Comment on above: Performed By: #### L 300.8000 #### [facility] [address] [place], [address] Hemoglobin (Bld) [Mass/Vol] 15.1 g/dL Normal 13.0-16.5 [facility] Comment on above: Performed By: #### L 300.8000 #### [facility] [address] [place], [address] IG% 0.700 Normal 0.0-0.9 [facility] Comment on above: Result Comment: IG% - Immature Granulocytes (promyelocytes, myelocytes and metamyelocytes) > 1% indicates that a LEFT SHIFT is Present. Performed By: #### L 300.8000 #### [facility] [address] [place], [address] Lymphocytes/100 WBC (Bld) 12.9 % Low 19-41 [facility] Comment on above: Performed By: #### L 300.8000 #### [facility] [address] [place], [address] MCH (RBC) [Entitic mass] 32.4 pg High 27.0-32.0 [facility] Comment on above: Performed By: #### L 300.8000 #### [facility] [address] [place], [address] MCHC (RBC) [Mass/Vol] 34.8 g/dL Normal 32-36 [facility] Comment on above: Performed By: #### L 300.8000 #### [facility] [address] [place], [address] MCV (RBC) [Entitic vol] 93.1 fL Normal 80-94 [facility] Comment on above: Performed By: #### L 300.8000 #### [facility] [address] [place], [address] Monocytes/100 WBC (Bld) 6.3 % Normal 0-10 [facility] Comment on above: Performed By: #### L 300.8000 #### [facility] [address] [place], [address] Neutrophils/100 WBC (Bld) 79.5 % High 47-70 [facility] Comment on above: Performed By: #### L 300.8000 #### [facility] [address] [place], [address] Nucleated RBC (Bld) [#/Vol] 0 10*3/uL Normal 0-5 [facility] Comment on above: Performed By: #### L 300.8000 #### [facility] [address] [place], [address] Platelet mean volume (Bld) [Entitic vol] 9.5 fL Normal 6.2-12.0 [facility] Comment on above: Performed By: #### L 300.8000 #### [facility] [place], [address] Platelets (Bld) [#/Vol] 179 10*3/uL Normal 150-450 [facility] Comment on above: Performed By: #### L 300.8000 #### [facility] [address] [place], [address] RBC (Bld) [#/Vol] 4.66 10*6/uL Normal 4.6-6.2 [facility] Comment on above: Performed By: #### L 300.8000 #### [facility] [address] [place], [address] RDW SD 45.6 fl High 35.1-43.9 [facility] Comment on above: Performed By: #### L 300.8000 #### [facility] [address] [place], [address] WBC (Bld) [#/Vol] 11.5 10*3/uL High 4.4-11.0 [facility] Comment on above: Performed By: #### L 300.8000 #### [facility] [address] [place], [place], [address] Chest 1 View (Portable)on Chest 1 View (Portable) [facility] Imaging Services [address] [place] [place] [address] Chest 1 View (Portable) MR#: [id number] Acct: [id number] Name: HORACE HENDERSON Rep #: [id number] : 1955 M 69 From: Pablo Gross MD PCP: Dr. George Vázquez MD Status: [facility] ER Study: Chest 1 View (Portable) Date of Exam: 10/27/24 Exam# [id number] Ordering Dr: John Harvey [id number] EXAM: XR CHEST, 1 VIEW CLINICAL INDICATION: [...] CC: Dr. George Vázquez MD; RENEE [employer] Specialist: Signed Normal [facility] D-Dimer Quantitative (DVT/PE )on 10-27-2024 D-DIMER QUANT 0.56 FEU/ug/m Invalid Interpretation Code 0.27-0.49 [facility] Comment on above: Result Comment: D-Di krissy ELEVATED (>0.49): Additional studies and clinical assessments are indicated to conclude diagnosis of: Deep Vein Thrombosis (DVT) or Pulmonary Embolism (PE) CRITICAL VALUE CALLED TO EYOUNG 10/27/24 [address]. RESULTS READ BACK BY SAME. Performed By: #### L 300.8000 #### [facility] [address] [place], [address] D-dimer measurement for deep venous thrombosisOrdered By: Praveen Ruiz on 10-27-2024 D-Dimer Quantitative (PE/DVT) 0.56 FEU/ug/m High 0.27-0.49 [facility] Comment on above: D-Dimer ELEVATED (>0 .49): Additional studies and clinicalassessments are indicated to conclude diagnosis of:Deep Vein Thrombosis (DVT) or Pulmonary Embolism (PE)CRITICAL VALUE CALLED TO TIXTOD67/29/24 [address].RESULTS READ BACK BY SAME. Emergency Department Summary on 10-27-2024 Emergency Department Summary [facility] Medical Records Department [address] [place] [address] Emergency Department Summary 10/27/24 MR#: [id number] Acct: [id number] Name: HORACE HENDERSON Rep #: [id number] : 1955 69 From: Praveen Ruiz DO [...] pain, shortness of breath, nausea or vomiting. [facility] Medical History Essential hypertension Alcohol use [...] disease), lumbar Atherosclerosis of coronary artery of [place]cree heart without angina pectoris Atherosclerosis of coronary [...] levofloxacin (From Levaquin) AdvReac Severe tendonitis Verified 10/27/24 11:35 Family [...] Status: Cu (more content not included)... Normal [facility] Eosinophil percentageOrdered By: John Harvye on 10-27-2024 Eosinophils/100 WBC (Bld) 0.3 % 0-5 [facility] Epithelial cells.squamous LM Ql (Urine sed)Ordered By: John Harvey on 10-27-2024 Epithelial cells.squamous LM.HPF (Urine sed) [#/Area] 0 /[HPF] 0-5 [facility] Glucose Ql (U)Ordered By: Sima Harvey on 10-27-2024 Urine Glucose (UA) Normal mg/dl Normal [facility] H AND P Exam - Hospitaliston 10-27-2024 H&P Exam - Hospitalist [facility] Medical Records Department [address] [place] [address] H P Exam - Hospitalist 10/27/24 1415 MR#: [id number] Acct: [id number] Name: HORACE HENDERSON Rep #: [id number] : 1955 69 From: Vicente Andrews DO PCP: Dr. George Vázquez MD Status:REG ER Location: ED HPI - General General Date of Admission: 10/27/24 Date of Service: 10/27/24 Chief Complaint: Syncopal episode HPI Narrative HORACE HENDERSON, is a 69 M who presented to [facility] ED on 10/27/2024 after a syncopal episode [...] acute distress. He was eating soup from [employer] when I saw him. Denied any acute pain or discomfort. Patient follows with [place] cardiology and notes that his sinus tachycardia has been worse recently, and he was told to increase his metoprolol dose because of this. Scheduled to see cardiology in the office in early October. Denies any lightheadedness or dizziness recently. He does have known history of COPD and follows with [place] pulmonology. He wears 2 L nasal cannula [...] No other acute concerns at this time. [facility] Medical History Essential hypertension Alcohol use [...] disease), lumbar Atherosclerosis of coronary artery of chip[place]cree heart without angina pectoris Atherosclerosis of coronary [...] mL met (more content not included)... Normal [facility] Immature granulocytes/100 WB C Auto (Bld)Ordered By: John Harvey on 10-27-2024 Immature granulocytes/100 WBC (Bld) 0.700 % 0.0-0.9 [facility] Comment on above: IG% - Immature Granu locytes (promyelocytes, myelocytes and metamyelocytes) > 1% indicates that a LEFT SHIFT is Present. Ketones Test strip Ql (U)Ord ered By: John Harvey on 10-27-2024 Ketones Ql (U) Negative Negative [facility] L501.4020on 10-27-2024 TROPONIN-I HS 14 pg/mL Normal 3.0-78.0 [facility] Comment on above: Order Comment: 'TROP ' Serial specimen #1, #2 or #3: 1 Result Comment: Aline petersen Note: New Test Units and Gender Specific Reference Ranges. For more information see Policy Stat Procedure [place] High Sensitivity Troponin (TNIH) and attachments. Performed By: #### L 300.8000 #### [facility] [address] [place], [place], [address] Lymphocytes Auto (Unsp spec) [#/Vol]Ordered By: John Harvey on 10-27-2024 Lymphocytes (Bld) [#/Vol] 1.48 10*3/uL 0.83-4.51 [facility] Lymphocytes/100 WBC Auto (Un sp spec)Ordered By: John Harvey on 10-27-2024 Lymphocytes/100 WBC (Bld) 12.9 % Low 19-41 [facility] Microscopic analysis of urin e for red blood cells (RBC)Ordered By: Johnjimi Harvey on 10-27-2024 Urine RBC 0-5 SEEN /hpf 0-5 [facility] Monocyte percentageOrdered B y: John Candice on 10-27-2024 Monocytes/100 WBC (Bld) 6.3 % 0-10 [facility] Mucus LM Ql (Urine sed)Order ed By: Johnjimi Harvey on 10-27-2024 Mucus Ql (Urine sed) 0 SEEN /hpf [facility] Neutrophil percentageOrdered By: John Harvey on 10-27-2024 Neutrophils/100 WBC (Bld) 79.5 % High 47-70 [facility] Nitrite Test strip Ql (U)Ord ered By: John Harvey on 10-27-2024 Nitrite Ql (U) Negative Negative [facility] Nucleated red blood cell per centageOrdered By: Johnjimi Harvey on 10-27-2024 Nucleated RBC/100 WBC (Bld) [Ratio] 0 % 0-5 [facility] Protein Test strip Ql (U)Ord ered By: Johnjimi Harvey on 10-27-2024 Protein Ql (U) 30 mg/dl High Negative [facility] Spine Cervical without Contr ason 10-27-2024 Spine Cervical without Contras [facility] Imaging Services [address] [place] [id number] Spine Cervical without Contras MR#: [id number] Acct: [id number] Name: HORACE HENDERSON Rep #: [id number] : 1955 M 69 From: Pablo Gross MD PCP: Dr. George Vázquez MD Status: REG ER Study: Spine Cervical without Contras Date of Exam: 12/28/23 Exam# [id number] Ordering Dr: John Harvey [id number] EXAM: CT CERVICAL SPINE WITHOUT INTRAVENOUS CONTRAST [...] CC: Dr. George Vázquez MD; RENEE [employer] Specialist: Signed Normal [facility] Troponin IOrdered By: John griggs on 10-27-2024 Troponin I High Sensitivity 14 pg/mL 3.0-78.0 [facility] Comment on above: Please Note: New Alexandra t Units and Gender Specific Reference Ranges. For more information see Policy Stat Procedure [place] High Sensitivity Troponin (TNIH) and attachments. Urinalysis, Completeon 10-27 BACTERIA 1+ /hpf Normal None Seen [facility] Comment on above: Order Comment: SUSAN CTOR TO SPECIFY Performed By: #### L 300.8000 #### [facility] [address] [place], [address] EPI,SQUAMOUS 0-5 SEEN Normal 0-5 [facility] Comment on above: Order Comment: SUSAN CTOR TO SPECIFY Performed By: #### L 300.8000 #### [facility] [address] [place], [address] RBC 0-5 SEEN Normal 0-5 [facility] Comment on above: Order Comment: SUSAN CTOR TO SPECIFY Performed By: #### L 300.8000 #### [facility] [address] [place], [address] Mucus Ql (Urine sed) 0 SEEN Normal [facility] Comment on above: Order Comment: SUSAN CTOR TO SPECIFY Performed By: #### L 300.8000 #### [facility] [address] [place], [address] WBC 0 SEEN Normal 0-5 [facility] Comment on above: Order Comment: SUSAN CTOR TO SPECIFY Performed By: #### L 300.8000 #### [facility] [address] [place], [address] Urine blood detectionOrdered By: John Harvey on 10-27-2024 Urine Occult Blood 50 /ul High Negative [facility] Urine clarityOrdered By: Celia Harvey on 10-27-2024 Clarity (U) Clear Clear [facility] Urine color determinationOrd ered By: John Harvey on 10-27-2024 Color (U) Yellow Yellow [facility] Urine leukocyte esterase det ection by dipstickOrdered By: John Harvey on 10-27-2024 Leukocyte esterase Test strip Ql (U) Negative Negative [facility] Urine pHOrdered By: John rivas on 10-27-2024 pH (U) 7.0 [pH] 5.0 - 8.0 [facility] Urine sediment bacteria coun t by microscopy (number/high power field)Ordered By: John Candice on 10-27-2024 Bacteria LM.HPF (Urine sed) [#/Area] 1 /[HPF] None Seen [facility] Urine specific gravity measu rementOrdered By: John Harvey on 10-27-2024 Specific gravity (U) [Rel density] 1.005 1.002-1.030 [facility] Urobilinogen Ql (U)Ordered B y: John Harvey on 10-27-2024 Urine Urobilinogen Normal mg/dl Normal [facility] White blood cell countOrdere d By: John Harvey on 10-27-2024 Urine WBC 0 SEEN /hpf 0-5 [facility] CNPNon 09-18-2024 CNPN Telephone (INTMWS) -------- HORACE HENDERSON ([id number]) 1955 M Date Time Provider Department 09/18/24 GEORGE VÁZQUEZ INTWS During your visit today, we recorded the following information about you: Debbie Portillo RN 09/18/2024 2:35 PM Signed Patient calling for referral to see a new Appeals Examiner for COPD. Dr. Orellana. . He was seeing Dr. Hall who is no longer @ [facility]. TOMMIE Dennis Victor H, MD 09/18/2024 3:01 [...] PM Signed Referral faxed to Dr. Orellana. Evelin Richey LPN Allergies As of Date: 09/18/2024 Noted Allergy Reaction LEVOFLOXACIN 06/01/2020 14 - Other: See Comments Comments: Tachycardia. Achilles tendonitis. Date Reviewed: 09/12/2024 Reviewed by: Evelin Richey LPN - Fully Assessed Reason for Visit: Consult [502] Primary Visit Diagnosis:COPD (chronic obstructive pulmonary disease) with chronic bronchitis (HCC) [J44.89] Other Visit Diagnoses:Acute on chronic respiratory failure with hypoxia (HCC) [J96.21] Nodule of lower lobe of left lung (low dose lung CT) [R91.1] Order(s):CONSULT TO PULMONARY MEDICINE [0991331] Order #: [id number]: 1 Prescriptions as of 09/18/2024 - nystatin [...] reflux disease [K21.9] 05/24/2023 Encounter Status:Closed by EVELIN RICHEY on 09/18/24 Normal [facility] 12 Lead EKGon 09-17-2024 12 Lead EKG [facility] Cardiovascular Services [address] [place] [address] 12 Lead EKG 09/17/24 1625 MR#: [id number] Acct: [id number] Name: HORACE HENDERSON Rep #: [id number] : 1955 69 From: Tomy Hanks MD [...] Abnormal ECG Confirmed by LATONYA LOPEZ, TOMY ([id number]), fan mail editor KEIRY URBANO ([id number]) on 09/18/2024 8:18:58 AM Referred By: Confirmed By: TOMY HANKS MD 09/18/24 0818 Date Tomy Hanks MD CC: Dr. Francisco Murillo MD; Dr. George Vázquez MD Signed Normal [facility] Absolute neutrophil countOrd ered By: Francisco Murillo on 09-17-2024 Neutrophils (Bld) [#/Vol] 4.5 10*3/uL 2.0-7.7 [facility] Basic Metabolic Profile (BMP )on 09-17-2024 BUN/CRE 10.5 RATIO Normal 08-18 [facility] Comment on above: Order Comment: 'TROP ' Serial specimen #1, #2 or #3: 1 Performed By: #### L 500.2500, L501.4020, L100.0100 ####[facility] [address] [place], [address] CA,Total 9.9 mg/dL Normal 8.5-10.1 [facility] Comment on above: Order Comment: 'TROP ' Serial specimen #1, #2 or #3: 1 Performed By: #### L 500.2500, L501.4020, L100.0100 ####[facility] [address] [place], [address] Chloride [Moles/Vol] 103 mmol/L Normal 98-107 [facility] Comment on above: Order Comment: 'TROP ' Serial specimen #1, #2 or #3: 1 Performed By: #### L 500.2500, L501.4020, L100.0100 ####[facility] [address] [place], [address] CO2 [Moles/Vol] 28.0 mmol/L Normal 21.0-32.0 [facility] Comment on above: Order Comment: 'TROP ' Serial specimen #1, #2 or #3: 1 Performed By: #### L 500.2500, L501.4020, L100.0100 ####[facility] [address] [place], [address] Creatinine [Mass/Vol] 1.52 mg/dL High 0.70-1.30 [facility] Comment on above: Order Comment: 'TROP ' Serial specimen #1, #2 or #3: 1 Result Comment: The validity of the calculated GFR GFRAA in patients over 70 years has not been determined. Clinical correlation is essential. Performed By: #### L 500.2500, L501.4020, L100.0100 ####[facility] [address] [place], [address] ECRCL 46.14 ml/min Normal [facility] Comment on above: Order Comment: 'TROP ' Serial specimen #1, #2 or #3: 1 Performed By: #### L 500.2500, L501.4020, L100.0100 ####[facility] [address] [place], [address] EST GFR - AA 59 mL/min Low >60 [facility] Comment on above: Order Comment: 'TROP ' Serial specimen #1, #2 or #3: 1 Result Comment: Afri can Fijian GFR Calc Performed By: #### L 500.2500, L501.4020, L100.0100 ####[facility] [address] [place], [address] GAP 6 Normal 5-15 [facility] Comment on above: Order Comment: 'TROP ' Serial specimen #1, #2 or #3: 1 Performed By: #### L 500.2500, L501.4020, L100.0100 ####[facility] [address] [place], [address] GFR/1.73 sq M.predicted among non-blacks MDRD (S/P/Bld) [Vol rate/Area] 48 mL/min/{1.73_m2} Low >60 [facility] Comment on above: Order Comment: 'TROP ' Serial specimen #1, #2 or #3: 1 Result Comment: Non- GFR Calc Performed By: #### L 500.2500, L501.4020, L100.0100 ####[facility] [address] [place], [address] Glucose [Mass/Vol] 117 mg/dL High 74-106 [facility] Comment on above: Order Comment: 'TROP ' Serial specimen #1, #2 or #3: 1 Result Comment: Fast ing Glucose result from 100 to 125 mg/dL suggests IMPAIRED HOMEOSTASIS per A.D.A. criteria. Performed By: #### L 500.2500, L501.4020, L100.0100 ####[facility] [address] [place], [address] Potassium [Moles/Vol] 3.7 mmol/L Normal 3.5-5.1 [facility] Comment on above: Order Comment: 'TROP ' Serial specimen #1, #2 or #3: 1 Performed By: #### L 500.2500, L501.4020, L100.0100 ####[facility] [address] [place], [address] Sodium [Moles/Vol] 137 mmol/L Normal 136-145 [facility] Comment on above: Order Comment: 'TROP ' Serial specimen #1, #2 or #3: 1 Performed By: #### L 500.2500, L501.4020, L100.0100 ####[facility] [address] [place], [address] Urea nitrogen [Mass/Vol] 16 mg/dL Normal 7-18 [facility] Comment on above: Order Comment: 'TROP ' Serial specimen #1, #2 or #3: 1 Performed By: #### L 500.2500, L501.4020, L100.0100 ####[facility] [address] [place], [address] Basophil percentageOrdered B y: Francisco Murillo on 09-17-2024 Basophils/100 WBC (Bld) 0.8 % 0-1 [facility] Blood urea nitrogen (BUN)/cr eatinine ratioOrdered By: Francisco Murillo on 09-17-2024 Urea nitrogen/Creatinine [Mass ratio] 10.5 mg/mg 10-20 [facility] CBC W/Diff, Automatedon 08-30 Absolute Lymph 1.40 X10 3/uL Normal 0.83-4.51 [facility] Comment on above: Performed By: #### L 300.8000 #### [facility] [address] [place], [address] Absolute Neut 4.5 X10 3/uL Normal 2.0-7.7 [facility] Comment on above: Performed By: #### L 300.8000 #### [facility] [address] [place], [address] Basophils/100 WBC (Bld) 0.8 % Normal 0-1 [facility] Comment on above: Performed By: #### L 300.8000 #### [facility] [address] [place], [address] Eosinophils/100 WBC (Bld) 1.7 % Normal 0-5 [facility] Comment on above: Performed By: #### L 300.8000 #### [facility] [address] [place], [address] Erythrocyte distribution width (RBC) [Ratio] 13.2 % Normal 11.6-14.6 [facility] Comment on above: Performed By: #### L 300.8000 #### [facility] [address] [place], [address] Hematocrit (Bld) [Volume fraction] 46.7 % Normal 40-54 [facility] Comment on above: Performed By: #### L 300.8000 #### [facility] [address] [place], [address] Hemoglobin (Bld) [Mass/Vol] 16.0 g/dL Normal 13.0-16.5 [facility] Comment on above: Performed By: #### L 300.8000 #### [facility] [address] [place], [address] IG% 0.200 Normal 0.0-0.9 [facility] Comment on above: Result Comment: IG% - Immature Granulocytes (promyelocytes, myelocytes and metamyelocytes) > 1% indicates that a LEFT SHIFT is Present. Performed By: #### L 300.8000 #### [facility] [address] [place], [address] Lymphocytes/100 WBC (Bld) 21.4 % Normal 19-41 [facility] Comment on above: Performed By: #### L 300.8000 #### [facility] [address] [place], [address] MCH (RBC) [Entitic mass] 32.6 pg High 27.0-32.0 [facility] Comment on above: Performed By: #### L 300.8000 #### [facility] [address] [place], [address] MCHC (RBC) [Mass/Vol] 34.3 g/dL Normal 32-36 [facility] Comment on above: Performed By: #### L 300.8000 #### [facility] [address] [place], [address] MCV (RBC) [Entitic vol] 95.1 fL High 80-94 [facility] Comment on above: Performed By: #### L 300.8000 #### [facility] [address] [place], [address] Monocytes/100 WBC (Bld) 7.2 % Normal 0-10 [facility] Comment on above: Performed By: #### L 300.8000 #### [facility] [address] [place], [address] Neutrophils/100 WBC (Bld) 68.7 % Normal 47-70 [facility] Comment on above: Performed By: #### L 300.8000 #### [facility] [address] [place], [address] Nucleated RBC (Bld) [#/Vol] 0 10*3/uL Normal 0-5 [facility] Comment on above: Performed By: #### L 300.8000 #### [facility] [address] [place], [address] Platelet mean volume (Bld) [Entitic vol] 9.4 fL Normal 6.2-12.0 [facility] Comment on above: Performed By: #### L 300.8000 #### [facility] [address] [place], [address] Platelets (Bld) [#/Vol] 166 10*3/uL Normal 150-450 [facility] Comment on above: Performed By: #### L 300.8000 #### [facility] [address] [place], [address] RBC (Bld) [#/Vol] 4.91 10*6/uL Normal 4.6-6.2 [facility] Comment on above: Performed By: #### L 300.8000 #### [facility] [address] [place], [address] RDW SD 46.5 fl High 35.1-43.9 [facility] Comment on above: Performed By: #### L 300.8000 #### [facility] [address] [place], [address] WBC (Bld) [#/Vol] 6.5 10*3/uL Normal 4.4-11.0 [facility] Comment on above: Performed By: #### L 300.8000 #### [facility] [address] [place], [address] Absolute Neut Normal 2.0-7.7 [facility] Comment on above: Result Comment: This specimen has been REJECTED due to Laboratory criteria: Clotted. ELSA CARRERO has been notified of need of recollection. 09/17/24 173 Berna Munoz Performed By: #### L 500.2500, L501.4020, L100.0100 ####[facility] [address] [place], [address] HCT Normal 40-54 [facility] Comment on above: Result Comment: This specimen has been REJECTED due to Laboratory criteria: Clotted. ELSA CARRERO has been notified of need of recollection. 09/17/241729 Berna Wolfhope Performed By: #### L 500.2500, L501.4020, L100.0100 ####[facility] [address] [place], [address] HGB Normal 13.0-16.5 [facility] Comment on above: Result Comment: This specimen has been REJECTED due to Laboratory criteria: Clotted. ELSA CARRERO has been notified of need of recollection. 09/17/241729 Berna Wolfhope Performed By: #### L 500.2500, L501.4020, L100.0100 ####[facility] [address] [place], [address] MCH Normal 27.0-32.0 [facility] Comment on above: Result Comment: This specimen has been REJECTED due to Laboratory criteria: Clotted. ELSA CARRERO has been notified of need of recollection. 09/17/241729 Berna Wolfhope Performed By: #### L 500.2500, L501.4020, L100.0100 ####[facility] [address] [place], [address] MCHC Normal 32-36 [facility] Comment on above: Result Comment: This specimen has been REJECTED due to Laboratory criteria: Clotted. ELSA CARRERO has been notified of need of recollection. 09/17/241729 Berna Wolfhope Performed By: #### L 500.2500, L501.4020, L100.0100 ####[facility] [address] [place], [address] MCV Normal 80-94 [facility] Comment on above: Result Comment: This specimen has been REJECTED due to Laboratory criteria: Clotted. ELSA CARRERO has been notified of need of recollection. 09/17/241729 Berna Wolfhope Performed By: #### L 500.2500, L501.4020, L100.0100 ####[facility] [address] [place], [address] NEUT% Normal 47-70 [facility] Comment on above: Result Comment: This specimen has been REJECTED due to Laboratory criteria: Clotted. ELSA CARRERO has been notified of need of recollection. 09/17/241729 Berna Garciae Performed By: #### L 500.2500, L501.4020, L100.0100 ####[facility] [address] [place], [address] PLT Normal 150-450 [facility] Comment on above: Result Comment: This specimen has been REJECTED due to Laboratory criteria: Clotted. ELSA TAPIADEANDRE has been notified of need of recollection. 09/17/241729 Berna Garcaie Performed By: #### L 500.2500, L501.4020, L100.0100 ####[facility] [address] [place], [address] RBC Normal 4.6-6.2 [facility] Comment on above: Result Comment: This specimen has been REJECTED due to Laboratory criteria: Clotted. ELSA TAPIADEANDRE has been notified of need of recollection. 09/17/241729 Berna Shenhope Performed By: #### L 500.2500, L501.4020, L100.0100 ####[facility] [address] [place], [address] RDW CV Normal 11.6-14.6 [facility] Comment on above: Result Comment: This specimen has been REJECTED due to Laboratory criteria: Clotted. ELSA ANSHUMATHEUSDEANDRE has been notified of need of recollection. 09/17/241729 Berna Wolfhope Performed By: #### L 500.2500, L501.4020, L100.0100 ####[facility] [address] [place], [address] RDW SD Normal 35.1-43.9 [facility] Comment on above: Result Comment: This specimen has been REJECTED due to Laboratory criteria: Clotted. ELSA CARRERO has been notified of need of recollection. 09/17/24 1730 Berna Garciae Performed By: #### L 500.2500, L501.4020, L100.0100 ####[facility] [address] [place], [address] WBC Normal 4.4-11.0 [facility] Comment on above: Result Comment: This specimen has been REJECTED due to Laboratory criteria: Clotted. ELSA CARRERO has been notified of need of recollection. 09/17/24 1730 Berna Garciae Performed By: #### L 500.2500, L501.4020, L100.0100 ####[facility] [address] [place], [address] Carbon dioxide measurementOr dered By: Francisco Murillo on 09-17-2024 CO2 [Moles/Vol] 28.0 mmol/L 21.0-32.0 [facility] Chest PA and Lateralon 09-17 Chest PA and Lateral [facility] [address] [place] [address] Chest PA and Lateral MR#: [id number] Acct: [id number] Name: HORACE HENDERSON Rep #: [id number] : 1955 M 69 From: Prateek Garcia MD PCP: Dr. George Vázquez MD Status: REG ER Study: Chest PA and Lateral Date of Exam: 09/17/24 Exam# [id number] Ordering Dr: Francisco Murillo MD [id number] STUDY: X-RAY CHEST REASON FOR EXAM: Male, [...] Signed: Prateek Garcia MD at 17:13 EST , CC: Dr. Francisco Murillo MD; Dr. George Vázquez MD Energy Specialist: Signed Normal [facility] Chloride measurementOrdered By: Francisco Murillo on 09-17-2024 Chloride [Moles/Vol] 103 mmol/L 98-107 [facility] Emergency Department Summary on 09-17-2024 Emergency Department Summary [facility] Medical Records Department [address] [place] [address] Emergency Department Summary 09/17/24 MR#: [id number] Acct: [id number] Name: HORACE HENDERSON Rep #: [id number] : 1955 69 From: Francisco Murillo MD [...] disease), lumbar Atherosclerosis of coronary artery of chip[place]wa[place]cree heart without angina pectoris Atherosclerosis of coronary [...] of lef (more content not included)... Normal [facility] Eosinophil percentageOrdered By: Francisco Murillo on 09-17-2024 Eosinophils/100 WBC (Bld) 1.7 % 0-5 [facility] Erythrocyte distribution wid th ratioOrdered By: Francisco Murillo on 09-17-2024 Erythrocyte distribution width (RBC) [Ratio] 13.2 % 11.6-14.6 [facility] Erythrocyte distribution wid th standard deviationOrdered By: Francisco Murillo on 09-17-2024 Erythrocyte distribution width (RBC) [Entitic vol] 46.5 fL High 35.1-43.9 [facility] Estimated glomerular filtrat ion rate (GFR) AmericanOrdered By: Francisco Murillo on 09-17-2024 Estimated GFR (MDRD) Amer 59 mL/min Low >60 [facility] Comment on above: GFR Calc Estimation of creatinine rosi aranceOrdered By: Francisco Murillo on 09-17-2024 Estimated Creatinine Clearance Calc 46.14 ml/min [facility] Glomerular filtration rate ( GFR) estimationOrdered By: Francisco Murillo on 09-17-2024 Estimated GFR (MDRD) Non-Af Amer 48 mL/min Low >60 [facility] Comment on above: Non- GFR Calc Glucose measurementOrdered B y: Francisco Murillo on 09-17-2024 Glucose [Mass/Vol] 117 mg/dL High 74-106 [facility] Comment on above: Fasting Glucose resu lt from 100 to 125 mg/dL suggests IMPAIRED HOMEOSTASIS per A.D.A. criteria. Hematocrit Auto (Bld) [Volum e fraction]Ordered By: Francisco Murillo on 09-17-2024 Hematocrit (Bld) [Volume fraction] 46.7 % 40-54 [facility] Hemoglobin measurementOrdere d By: Francisco Murillo on 09-17-2024 Hemoglobin (Bld) [Mass/Vol] 16.0 g/dL 13.0-16.5 [facility] Immature granulocytes/100 WB C Auto (Bld)Ordered By: Francisco Murillo on 09-17-2024 Immature granulocytes/100 WBC (Bld) 0.200 % 0.0-0.9 [facility] Comment on above: IG% - Immature Granu locytes (promyelocytes, myelocytes and metamyelocytes) > 1% indicates that a LEFT SHIFT is Present. L501.4020on 09-17-2024 TROPONIN-I HS 9 pg/mL Normal 3.0-78.0 [facility] Comment on above: Order Comment: 'TROP ' Serial specimen #1, #2 or #3: 1 Result Comment: Aline petersen Note: New Test Units and Gender Specific Reference Ranges. For more information see Policy Stat Procedure [place] High Sensitivity Troponin (TNIH) and attachments. Performed By: #### L 500.2500, L501.4020, L100.0100 ####[facility] [address] [place], [address] Lymphocytes Auto (Unsp spec) [#/Vol]Ordered By: Francisco Murillo on 09-17-2024 Lymphocytes (Bld) [#/Vol] 1.40 10*3/uL 0.83-4.51 [facility] Lymphocytes/100 WBC Auto (Un sp spec)Ordered By: Francisco Murillo on 09-17-2024 Lymphocytes/100 WBC (Bld) 21.4 % 19-41 [facility] MCV (mean corpuscular volume ) determinationOrdered By: Francisco Murillo on 09-17-2024 MCV (RBC) [Entitic vol] 95.1 fL High 80-94 [facility] Mean corpuscular hemoglobin (MCH) determinationOrdered By: Francisco Murillo on 09-17-2024 MCH (RBC) [Entitic mass] 32.6 pg High 27.0-32.0 [facility] Mean corpuscular hemoglobin concentration (MCHC) determinationOrdered By: Francisco Murillo on 09-17-2024 MCHC (RBC) [Mass/Vol] 34.3 g/dL 32-36 [facility] Mean platelet volume determi nationOrdered By: Francisco Murillo on 09-17-2024 Platelet mean volume (Bld) [Entitic vol] 9.4 fL 6.2-12.0 [facility] Monocyte percentageOrdered B y: Francisco Murillo on 09-17-2024 Monocytes/100 WBC (Bld) 7.2 % 0-10 [facility] Neutrophil percentageOrdered By: Francisco Murillo on 09-17-2024 Neutrophils/100 WBC (Bld) 68.7 % 47-70 [facility] Nucleated red blood cell per centageOrdered By: Francisco Murillo on 09-17-2024 Nucleated RBC/100 WBC (Bld) [Ratio] 0 % 0-5 [facility] Platelet countOrdered By: Jose Murillo on 09-17-2024 Platelets (Bld) [#/Vol] 166 10*3/uL 150-450 [facility] Potassium measurementOrdered By: Francisco Murillo on 09-17-2024 Potassium [Moles/Vol] 3.7 mmol/L 3.5-5.1 [facility] RBC Auto (Bld) [#/Vol]Ordere d By: Francisco Murillo on 09-17-2024 RBC (Bld) [#/Vol] 4.91 10*6/uL 4.6-6.2 [facility] Serum anion gap measurementO rdered By: Francisco Murillo on 09-17-2024 Anion gap [Moles/Vol] 6 mmol/L 5-15 [facility] Serum or plasma calcium jimbo urement (mass/volume)Ordered By: Francisco Murillo on 09-17-2024 Calcium [Mass/Vol] 9.9 mg/dL 8.5-10.1 [facility] Serum or plasma creatinine m easurement (mass/volume)Ordered By: Francisco Murillo on 09-17-2024 Creatinine [Mass/Vol] 1.52 mg/dL High 0.70-1.30 [facility] Comment on above: The validity of the calculated GFR & GFRAA in patients over 70 years has not been determined. Clinical correlation is essential. Serum or plasma urea nitroge n measurement (mass/volume)Ordered By: Francisco Murillo on 09-17-2024 Urea nitrogen [Mass/Vol] 16 mg/dL 7-18 [facility] Sodium levelOrdered By: Francisco Murillo on 09-17-2024 Sodium [Moles/Vol] 137 mmol/L 136-145 [facility] Troponin IOrdered By: Francisco yoon on 09-17-2024 Troponin I High Sensitivity 9 pg/mL 3.0-78.0 [facility] Comment on above: Please Note: New Alexandra t Units and Gender Specific Reference Ranges. For more information see Policy Stat Procedure [place] High Sensitivity Troponin (TNIH) and attachments. White blood cell (WBC) count Ordered By: Francisco Murillo on 09-17-2024 WBC (Bld) [#/Vol] 6.5 10*3/uL 4.4-11.0 [facility] Basic metabolic 2000 panelon 09-12-2024 Anion gap [Moles/Vol] 12 mmol/L Normal 8-15 [facility] Comment on above: Order Comment: Speci men Type: BLOOD SPECIMEN Ordering Facility: [facility] Address: [address] [place] [address] Performed By: #### 3 3152-6, 65705-3 #### [facility] CLIA [id number] [address] [place] [address] [place] Calcium [Mass/Vol] 9.8 mg/dL Normal 8.5-10.2 [facility] Comment on above: Order Comment: Speci men Type: BLOOD SPECIMEN Ordering Facility: [facility] Address: [address] [place] [address] Performed By: #### 3 3762-6, 39080-1 #### [facility] CLIA [id number] [address] [place] [address] [place] Chloride [Moles/Vol] 99 mmol/L Normal 98-107 [facility] Comment on above: Order Comment: Speci men Type: BLOOD SPECIMEN Ordering Facility: [facility] Address: [address] [place] [address] Performed By: #### 3 3762-6, 54345-8 #### [facility] CLIA [id number] [address] [place] [address] [place] CO2 [Moles/Vol] 27 mmol/L Normal 22-30 [facility] Comment on above: Order Comment: Speci men Type: BLOOD SPECIMEN Ordering Facility: [facility] Address: [address] [place] [address] Performed By: #### 3 3762-6, 13115-6 #### [facility] CLIA [id number] [address] [place], [place] [address] [place] Creatinine [Mass/Vol] 1.23 mg/dL High 0.73-1.22 [facility] Comment on above: Order Comment: Speci men Type: BLOOD SPECIMEN Ordering Facility: [facility] Address: [address] [place] [address] Performed By: #### 3 3762-6, 49764-9 #### [facility] CLIA [id number] [address] [place], [place] [address] [place] Creatinine and Glomerular filtration rate.predicted panel (S/P/Bld) 63 mL/min/1.73m??? Normal >=60 [facility] Comment on above: Order Comment: Ashly oakley Type: BLOOD SPECIMEN Ordering Facility: [facility] Address: [address] [place] [address] Result Comment: Shelli mated Glomerular Filtration Rate [...] accurately reflect actual GFR. Performed By: #### 3 3762-6, 27748-8 #### [facility] CLIA [id number] [address] [place] [address] [place] Glucose [Mass/Vol] 100 mg/dL High 74-99 [facility] Comment on above: Order Comment: Ashly oakley Type: BLOOD SPECIMEN Ordering Facility: [facility] Address: [address] [place] [address] Result Comment: The [place] Diabetes Association (ADA) provides guidance for cutoff [...] Standards of Medical Care in Diabetes 2016, [place] [employer] Association. Diabetes Care. 2016.39(Suppl 1). Performed By: #### 3 3762-6, 96799-4 #### [facility] CLIA [id number] [address] [place] [address] [place] Potassium [Moles/Vol] 4.1 mmol/L Normal 3.7-5.1 [facility] Comment on above: Order Comment: Speci men Type: BLOOD SPECIMEN Ordering Facility: [facility] Address: [address] [place] [address] Performed By: #### 3 3762-6, 62383-8 #### [facility] CLIA [id number] [address] [place] [address] [place] Sodium [Moles/Vol] 138 mmol/L Normal 136-144 [facility] Comment on above: Order Comment: Speci men Type: BLOOD SPECIMEN Ordering Facility: [facility] Address: [address] [place] [address] Performed By: #### 3 3762-6, 09207-5 #### [facility] CLIA [id number] [address] [place] [address] [place] Urea nitrogen [Mass/Vol] 23 mg/dL Normal 9-24 [facility] Comment on above: Order Comment: Speci men Type: BLOOD SPECIMEN Ordering Facility: [facility] Address: [address] [place] [address] Performed By: #### 3 3762-6, 59688-2 #### [facility] CLIA [id number] [address] [place] [address] [place] CBC panel Auto (Bld)on 09-12 Erythrocyte distribution width (RBC) [Ratio] 13.2 % Normal 11.5-15.0 [facility] Comment on above: Order Comment: Speci men Type: BLOOD SPECIMENOrdering Facility: [facility] Address: [address] [place] [address] Performed By: #### 5 8410-2 ####[facility] [id number] [place] [address] [place] Hematocrit (Bld) [Volume fraction] 48.4 % Normal 39.0-51.0 [facility] Comment on above: Order Comment: Speci men Type: BLOOD SPECIMENOrdering Facility: [facility] Address: [address] [place] [address] Performed By: #### 5 8410-2 ####[facility] [id number] [place] [address] [place] Hemoglobin (Bld) [Mass/Vol] 16.5 g/dL Normal 13.0-17.0 [facility] Comment on above: Order Comment: Speci men Type: BLOOD SPECIMENOrdering Facility: [facility] Address: [address] [place] [address] Performed By: #### 5 8410-2 ####[facility] [id number] [place] [address] [place] MCH (RBC) [Entitic mass] 32.1 pg Normal 26.0-34.0 [facility] Comment on above: Order Comment: Speci men Type: BLOOD SPECIMENOrdering Facility: [facility] Address: [address] [place] [address] Performed By: #### 5 8410-2 ####[facility] [id number] [place] [address] [place] MCHC (RBC) [Mass/Vol] 34.1 g/dL Normal 30.5-36.0 [facility] Comment on above: Order Comment: Speci men Type: BLOOD SPECIMENOrdering Facility: [facility] Address: [address] [place] [address] Performed By: #### 5 8410-2 ####[facility] [id number] [place] [address] [place] MCV (RBC) [Entitic vol] 94.2 fL Normal 80.0-100.0 [facility] Comment on above: Order Comment: Speci men Type: BLOOD SPECIMENOrdering Facility: [facility] Address: [address] [place] [address] Performed By: #### 5 8410-2 ####[facility] [id number] [place] [address] [place] Nucleated RBC (Bld) [#/Vol] 10*3/uL Normal <0.01 [facility] Comment on above: Order Comment: Speci men Type: BLOOD SPECIMENOrdering Facility: [facility] Address: [address] [place] [address] Performed By: #### 5 8410-2 ####[facility] [id number] [place] [address] [place] Platelet mean volume (Bld) [Entitic vol] 9.4 fL Normal 9.0-12.7 [facility] Comment on above: Order Comment: Speci men Type: BLOOD SPECIMENOrdering Facility: [facility] Address: [address] [place] [address] Performed By: #### 5 8410-2 ####[facility] [id number] [place] [address] [place] Platelets (Bld) [#/Vol] 163 10*3/uL Normal 150-400 [facility] Comment on above: Order Comment: Speci men Type: BLOOD SPECIMENOrdering Facility: [facility] Address: [address] [place] [address] Performed By: #### 5 8410-2 ####[facility] [id number] [place] [address] [place] RBC (Bld) [#/Vol] 5.14 10*6/uL Normal 4.20-6.[address] [facility] Comment on above: Order Comment: Speci men Type: BLOOD SPECIMENOrdering Facility: [facility] Address: [address] [place] [address] Performed By: #### 5 8410-2 ####[facility] [id number] [place] [address] [place] WBC (Bld) [#/Vol] 10.46 10*3/uL Normal 3.70-11.00 [facility] Comment on above: Order Comment: Speci men Type: BLOOD SPECIMENOrdering Facility: [facility] Address: [address] [place] [address] Performed By: #### 5 8410-2 ####[facility] [id number] [id number] [facility] CNOVon 09-12-2024 CNOV Office Visit (INTMWS ) -------- HORACE HENDERSON ([id number]) 1955 Date Time Provider Department 09/12/24 4:20 PM GEORGE VÁZQUEZ INTMWS During your visit today, we recorded the following information about you: Temperature Pulse Respiration Blood pressure 98.9 degrees 130/minute 28/minute 134/84 Weight 82.2 kg George Vázquez MD 09/12/2024 4:57 PM Signed This note was created using NewsWhipriter. Subjective Horace Henderson is a 69 year old male. I saw him for COPD exacerbation one week ago, and he was seen in the week before that. He continues to feel vaguely ill. His heart rate has been staying elevated when he checked his oximetry at home. He was finishing doxycycline and just got a call from his behavior support specialist that he will start Augmentin 2 [...] Edema present. (more content not included)... Normal [facility] ECG COMPLETEon 09-12-2024 ECG COMPLETE Ventricular Rate : 1 17 BPM Atrial Rate : 117 BPM P-R Interval : 136 ms QRS Duration : 128 ms Q-T Interval : 334 ms QTC Calculation(Bazett) : 465 ms Calculated P Loyal : 77 degrees Calculated R Loyal : -76 degrees Calculated T Loyal : 78 degrees SINUS TACHYCARDIA WITH PREMATURE ATRIAL COMPLEXES LEFT AXIS DEVIATION COMPLETE RIGHT BUNDLE BRANCH BLOCK ABNORMAL ECG Confirmed by MD BECK GREGORY () on 09/13/2024 10:20:58 AM NAME : HORACE HENDERSON PID : [id number] : 1955 Gender : Male Race : ORD : [id number] Procedure Date : Sep 12 2024 16:39:35 Edit Date : Sep 13 2024 10:21:00 Diagnosis: SINUS TACHYCARDIA WITH PREMATURE ATRIAL COMPLEXES LEFT AXIS DEVIATION COMPLETE RIGHT BUNDLE BRANCH BLOCK ABNORMAL ECG Confirmed by MD BECK GREGORY () on 09/13/2024 10:20:58 AM Test Reason : I25.10 Coronary artery disease involving [place]cree coronary artery of [place]cree heart Location : 185 : WO Overread By : MD BECK GREGORY Edited By : MD BECK GREGORY Referred By : , Acquired by : Iris chin [facility] NT-proBNP [facility] 09-12 Natriuretic peptide.B prohormone N-Terminal [Mass/Vol] 153 pg/mL High <125 [facility] Comment on above: Order Comment: Speci men Type: BLOOD SPECIMEN Ordering Facility: [facility] Address: [address] [place] [address] Performed By: #### 3 3762-6, 82869-6 #### [facility] CLIA [id number] [address] [place] [address] [facility] CNOVon 09-04-2024 CNOV Office Visit (INTMWS ) -------- HORACE HENDERSON ([id number]) 1955 M Date Time Provider Department 09/04/24 3:40 PM GOERGE VÁZQUEZ INTMWS During your visit today, we recorded the following information about you: Temperature Pulse Respiration Blood pressure 98.8 degrees 96/minute 20/minute 128/74 Weight 82.9 kg George Vázquze MD 09/04/2024 4:10 PM Signed This note [...] lower leg (more content not included)... [facility] HORACE HENDERSON ([id number]) 1955 Date Time Provider Department 09/04/24 GEORGE VÁZQUEZ INTMWS During your visit today, [...] another round of antibiotics. Patient uses [facility]. Please advise. Blanca Tilley APRN.GROUP HOME MANAGER 09/04/2024 1:54 PM Signed Needs appointment Blanca Tilley APRN.Evelin Arthur LPN 09/04/2024 2:33 PM Signed Patient notified, appt scheduled. Evelin Richey LPN Allergies As of Date: 09/04/2024 Noted Allergy Reaction LEVOFLOXACIN 06/01/2020 14 - Other: See Comments Comments: Tachycardia. Achilles tendonitis. Date Reviewed: 08/30/2024 Reviewed by: Prateek Matos APRN.GROUP HOME MANAGER - Fully Assessed Reason for Visit: Patient [...] reflux disease [K21.9] 05/24/2023 Encounter Status:Closed by EVELIN RICHEY on 09/04/24 Normal [facility] XR Chest PA and Lateralon IMPRESSION: No acute radiographic abnormality. Energy Specialist: TIMOTEO Transcribe Date/Time: Aug 30 2024 12:01P Dictated by : JULISA DAVIS MD This examination was interpreted and the report reviewed and electronically signed by: JULISA DAVIS MD on Aug 30 2024 12:04PM [facility] DIVISION OF RADIOLOGY * * *Final Report* [...] the thoracic spine. DIVISION OF RADIOLOGY Provider, Bria [facility] - 08/30/2024 * * *Final Report* [...] spine. IMPRESSION IMPRESSION: No acute radiographic abnormality. Energy Specialist: TIMOTEO Transcribe Date/Time: Aug 30 2024 12:01P Dictated by : JULISA DAVIS MD This examination was interpreted and the report reviewed and electronically signed by: JULISA DAVIS MD on Aug 30 2024 12:04PM [facility] Radiology Study observation (narrative) [facility] XR Chest PA and LateralOrder ed By: [facility] Provider on 08-30-2024 XR Chest PA and Lateralon IMPRESSION: Overall findings unchanged. Energy Specialist: PSCB Transcribe Date/Time: Oct 18 2023 8:22A Dictated by : ALLIE LEA MD This examination was interpreted and the report reviewed and electronically signed by: ALLIE LEA MD on Oct 18 2023 8:25AM [facility] DIVISION OF RADIOLOGY * * *Final Report* [...] shows degenerative changes. DIVISION OF RADIOLOGY Provider, [facility] - 10/18/2023 * * *Final Report* [...] degenerative changes. IMPRESSION IMPRESSION: Overall findings unchanged. Energy Specialist: TIMOTEO Transcribe Date/Time: Oct 18 2023 8:22A Dictated by : ALLIE LEA MD This examination was interpreted and the report reviewed and electronically signed by: ALLIE LEA MD on Oct 18 2023 8:25AM EST Radiology Study observation (narrative) [facility] XR Chest PA and LateralOrder ed By: Cc Provider on 10-18-2023 Gram stain for investigation of transfusion reactionOrdered By: Radha Roberts on 08-11-2023 Microscopic observation Gram stain Nom (Unsp spec) [facility] Microbial respiratory cultur eOrdered By: Radha Roberts on 08-11-2023 Bacteria identified Respiratory culture Nom (Unsp spec) or Staphylococcus aureus isolated. [facility] Basophil percentageOrdered B y: Amada Mahoney on 08-07-2023 Creatinine [Mass/Vol] 1.1 mg/dL 0.70-1.30 [facility] No Panel InformationOrdered By: Amada Mahoney on 08-07-2023 Bedside Estimated GFR (eGFR) > 60.0000 mL/min >60 [facility] Basophil percentageOrdered B y: Gloria Cochran on 08-04-2023 Bilirubin [Mass/Vol] 0.70 mg/dL 0.20-1.00 [facility] Comment on above: For patients on eltr ombopag therapy, use of Dimension [place] TBIL is not recommended. Cholesterol [Mass/Vol] 159 mg/dL <200 [facility] Comment on above: <200 mg/dL Desirable 200-240 mg/dL Borderline >240 mg/dL High Risk Protein [Mass/Vol] 7.2 g/dL 6.4-8.2 [facility] Triglyceride [Mass/Vol] 150 mg/dL <199 [facility] Comment on above: The drugs N-Acetylcy steine and Metamizole may falsely depress this assay.Serum Triglycerides Reference Interval Normal <150 mg/dL Borderline high 150 - 199 mg/dL High 200 - 499 mg/dL Very High > or = 500 mg/dL Direct bilirubinOrdered By: Gloria Cochran on 08-04-2023 Bilirubin.direct [Mass/Vol] 0.20 mg/dL 0.00-0.30 [facility] Gram stain for investigation of transfusion reactionOrdered By: Radha Roberts on 08-04-2023 Microscopic observation Gram stain Nom (Unsp spec) [facility] Laboratory - Chemistry and C hemistry - challengeOrdered By: Gloria Cochran on 08-04-2023 ALP [Catalytic activity/Vol] 85 U/L 45-117 [facility] ALT [Catalytic activity/Vol] 30 U/L 16-61 [facility] Globulin (S) [Mass/Vol] 3.5 g/dL 2.2-4.2 [facility] Microbial respiratory cultur eOrdered By: Radha Roberts on 08-04-2023 Bacteria identified Respiratory culture Nom (Unsp spec) or Staphylococcus aureus isolated. [facility] Serum or plasma albumin jimbo urement (mass/volume)Ordered By: Gloria Cochran on 08-04-2023 Albumin [Mass/Vol] 3.7 g/dL 3.2-5.0 [facility] Serum or plasma cholesterol in HDL measurement (mass/volume)Ordered By: Gloria Cochran on 08-04-2023 Cholesterol in HDL [Mass/Vol] 75 mg/dL >40 [facility] Comment on above: The drugs N-Acetylcy steine and Metamizole may falsely depress this assay. Reference Range HDL <40 mg/dL Low HDL Cholesterol HDL >or= 60 mg/dL High HDL Cholesterol Serum or plasma cholesterol in VLDL measurement (mass/volume)Ordered By: Gloria Cochran on 08-04-2023 Cholesterol in VLDL [Mass/Vol] 30 mg/dL 5-40 [facility] Serum or plasma low density lipoprotein (LDL) cholesterol measurement (mass/volume)Ordered By: Gloria Cochran on 08-04-2023 Cholesterol in LDL [Mass/Vol] 54 mg/dL 0-130 [facility] Thin prep Papanicolaou smear with manual screeningOrdered By: Gloria Cochran on 08-04-2023 Thin prep Papanicolaou smear with manual screening 18 U/L 15-37 [facility] Influenza virus A and B and Respiratory syncytial virus RNA panel - Upper respiratoryOrdered By: Radha Roberts on 07-21-2023 FLUAV and FLUBV and RSV pnl JESSICA+probe (Upper resp) [facility] No Panel Informationon 07-21 POC SARS CoV-2 Antigen Negative [facility] Absolute lymphocyte countOrd ered By: Dr. Mas on 03-17-2023 Lymphocytes Auto (Unsp spec) [#/Vol] 0.63 10*3/uL 0.83-4.51 [facility] Basophil percentageOrdered B y: Dr. Mas on 03-17-2023 Basophils/100 WBC (Bld) 0.2 % 0-1 [facility] Chloride [Moles/Vol] 103 mmol/L 98-107 [facility] Eosinophils/100 WBC (Bld) 0.0 % 0-5 [facility] Glucose [Mass/Vol] 126 mg/dL 74-106 [facility] Comment on above: Fasting Glucose resu lt greater than or equal to 126 mg/dL suggests DIABETES MELLITUS per A.D.A. criteria. Neutrophils (Bld) [#/Vol] 8.2 10*3/uL 2.0-7.7 [facility] Neutrophils/100 WBC (Bld) 89.5 % 47-70 [facility] Potassium [Moles/Vol] 4.0 mmol/L 3.5-5.1 [facility] Sodium [Moles/Vol] 139 mmol/L 136-145 [facility] WBC (Bld) [#/Vol] 9.2 10*3/uL 4.4-11.0 [facility] Blood erythrocytes count (nu mber/volume)Ordered By: Dr. Mas on 03-17-2023 RBC (Bld) [#/Vol] 5.00 10*6/uL 4.6-6.2 [facility] Blood hemoglobin measurement (mass/volume)Ordered By: Dr. Mas on 03-17-2023 Hemoglobin (Bld) [Mass/Vol] 15.3 g/dL 13.0-16.5 [facility] Blood lymphocytes/100 leukoc ytesOrdered By: Dr. Mas on 03-17-2023 Lymphocytes/100 WBC (Bld) 6.9 % 19-41 [facility] Blood monocytes/100 leukocyt esOrdered By: Dr. Mas on 03-17-2023 Monocytes/100 WBC (Bld) 2.7 % 0-10 [facility] Blood platelet mean volumeOr dered By: Dr. Mas on 03-17-2023 Platelet mean volume (Bld) [Entitic vol] 9.0 fL 6.2-12.0 [facility] Determination of erythrocyte mean corpuscular volume (MCV)Ordered By: Dr. Mas on 03-17-2023 MCV (RBC) [Entitic vol] 91.6 fL 80-94 [facility] Hematocrit Auto (Bld) [Volum e fraction]Ordered By: Dr. Mas on 03-17-2023 Hematocrit (Bld) [Volume fraction] 45.8 % 40-54 [facility] Laboratory - Chemistry and C hemistry - challengeOrdered By: Dr. Mas on 03-17-2023 CO2 [Moles/Vol] 30.0 mmol/L 21.0-32.0 [facility] Urea nitrogen/Creatinine [Mass ratio] 20.8 mg/mg 10-20 [facility] Laboratory - Hematology and Cell countsOrdered By: Dr. Mas on 03-17-2023 Erythrocyte distribution width (RBC) [Entitic vol] 43.8 fL 35.1-43.9 [facility] Erythrocyte distribution width (RBC) [Ratio] 13.1 % 11.6-14.6 [facility] Immature granulocytes/100 WBC (Bld) 0.700 % 0.0-0.9 [facility] Comment on above: IG% - Immature Granu locytes (promyelocytes, myelocytes and metamyelocytes) > 1% indicates that a LEFT SHIFT is Present. MCH (RBC) [Entitic mass] 30.6 pg 27.0-32.0 [facility] Nucleated RBC/100 WBC (Bld) [Ratio] 0 % 0-5 [facility] MCHC Auto (RBC) [Mass/Vol]Or dered By: Dr. Mas on 03-17-2023 MCHC (RBC) [Mass/Vol] 33.4 g/dL 32-36 [facility] No Panel InformationOrdered By: Dr. Mas on 03-17-2023 D-Dimer Quantitative (PE/DVT) 0.56 FEU/ug/m 0.27-0.49 [facility] Comment on above: D-Dimer ELEVATED (>0 .49): Additional studies and clinicalassessments are indicated to conclude diagnosis of:Deep Vein Thrombosis (DVT) or Pulmonary Embolism (PE)CRITICAL VALUE VERIFIED. CALLED TO AMBREEN DOS SANTOS03/17/23 1633 Roque Henriquez.RESULTS READ BACK BY SAME . Estimated GFR (MDRD) Amer 74 mL/min >60 [facility] Comment on above: GFR Calc Estimated GFR (MDRD) Non-Af Amer 61 mL/min >60 [facility] Comment on above: Non- GFR Calc Troponin I High Sensitivity 15 pg/mL 3.0-78.0 [facility] Comment on above: Please Note: New Alexandra t Units and Gender Specific Reference Ranges. For more information see Policy Stat Procedure [place] High Sensitivity Troponin (TNIH) and attachments. Platelets bldOrdered By: Dr. Mas on 03-17-2023 Platelets (Bld) [#/Vol] 279 10*3/uL 150-450 [facility] Serum or plasma calcium jimbo urement (mass/volume)Ordered By: Dr. Mas on 03-17-2023 Calcium [Mass/Vol] 10.2 mg/dL 8.5-10.1 [facility] Serum or plasma creatinine m easurement (mass/volume)Ordered By: Dr. Mas on 03-17-2023 Creatinine [Mass/Vol] 1.25 mg/dL 0.70-1.30 [facility] Comment on above: The validity of the calculated GFR & GFRAA in patients over 70 years has not been determined. Clinical correlation is essential. Serum or plasma urea nitroge n measurement (mass/volume)Ordered By: Dr. Mas on 03-17-2023 Urea nitrogen [Mass/Vol] 26 mg/dL 7-18 [facility] Thin prep Papanicolaou smear with manual screeningOrdered By: Dr. Mas on 03-17-2023 Thin prep Papanicolaou smear with manual screening 6 5-15 [facility] No Panel InformationOrdered By: Aleksey Javier on 01-28-2023 Miscellaneous Test See comment [facility] Comment on above: STOOL CULTURETEST RE SULT REFERENCE INTERVALSALMONELLA/SHIGELLASCREEN RESULT 1 NO SALMONELLA OR SHIGELLA RECOVEREDCAMPYLOBACTER CULTUREFINAL REPORT NO CAMPYLOBACTER SPECIES ISOLATEDE COLI SHIGA TOXIN EIA NEGATIVE NEGATIVE ___ TESTING PERFORMED AT [facility]. ORIGINAL REPORT ON FILE IN LAB CONTAINS ADDITIONAL TEST SITE INFORMATION. Stool Calprotectin <16 ug/g 0-120 [facility] Comment on above: Concentration Interp retation Follow-Up<16 - 50 ug/g Normal None>50 -120 ug/g Borderline Re-evaluate in 4-6 weeks >120 ug/g Abnormal Repeat as clinically indicatedPerformed at: [facility] [id number] [place], [place] [id number] Director: Gian Hopkins PhD, Phone: [phone] at: [facility] [address] [id number] Director: Patricia Rivera MD, Phone: [phone] Stool Neutral Fats Normal . [facility] Comment on above: Normal (<60 Droplets /HPF) Stool Pancreatic Elastase 90 >200 [facility] Comment on above: Result Units: ug Catie st./gResults verified by repeat testing Severe Pancreatic Insufficiency: <100 Moderate Pancreatic Insufficiency: 100 - 200 Normal: >200Performed at: [facility] [id number] Director: Patricia Rivera MD, Phone: [phone] Qualitative fecal fat or lip idsOrdered By: Aleksey Javier on 01-28-2023 Fat Ql (Stl) Normal . [facility] Comment on above: Normal (<100 Droplet s/HPF) Stool lactoferrin detection by immunoassayOrdered By: Aleksey Javier on 01-28-2023 Lactoferrin IA Ql (Stl) [facility] Basophil percentageOrdered B y: Dr. Giles on 01-24-2023 Bilirubin [Mass/Vol] 0.60 mg/dL 0.20-1.00 [facility] Comment on above: For patients on eltr ombopag therapy, use of Dimension [place] TBIL is not recommended. Chloride [Moles/Vol] 104 mmol/L 98-107 [facility] Cholesterol [Mass/Vol] 154 mg/dL <200 [facility] Comment on above: <200 mg/dL Desirable 200-240 mg/dL Borderline >240 mg/dL High Risk Glucose [Mass/Vol] 98 mg/dL 74-106 [facility] Potassium [Moles/Vol] 3.6 mmol/L 3.5-5.1 [facility] Protein [Mass/Vol] 7.2 g/dL 6.4-8.2 [facility] Sodium [Moles/Vol] 137 mmol/L 136-145 [facility] Triglyceride [Mass/Vol] 156 mg/dL <199 [facility] Comment on above: The drugs N-Acetylcy steine and Metamizole may falsely depress this assay.Serum Triglycerides Reference Interval Normal <150 mg/dL Borderline high 150 - 199 mg/dL High 200 - 499 mg/dL Very High > or = 500 mg/dL Direct bilirubinOrdered By: Dr. Giles on 01-24-2023 Bilirubin.direct [Mass/Vol] 0.15 mg/dL 0.00-0.30 [facility] Laboratory - Chemistry and C hemistry - challengeOrdered By: Dr. Giles on 01-24-2023 ALP [Catalytic activity/Vol] 76 U/L 45-117 [facility] ALT [Catalytic activity/Vol] 20 U/L 16-61 [facility] CO2 [Moles/Vol] 28.0 mmol/L 21.0-32.0 [facility] Globulin (S) [Mass/Vol] 3.5 g/dL 2.2-4.2 [facility] Urea nitrogen/Creatinine [Mass ratio] 14.6 mg/mg 10-20 [facility] No Panel InformationOrdered By: Dr. Giles on 01-24-2023 Estimated GFR (MDRD) Amer 57 mL/min >60 [facility] Comment on above: GFR Calc Estimated GFR (MDRD) Non-Af Amer 47 mL/min >60 [facility] Comment on above: Non- GFR Calc Serum or plasma albumin jimbo urement (mass/volume)Ordered By: Dr. Giles on 01-24-2023 Albumin [Mass/Vol] 3.7 g/dL 3.2-5.0 [facility] Serum or plasma calcium jimbo urement (mass/volume)Ordered By: Dr. Giles on 01-24-2023 Calcium [Mass/Vol] 9.4 mg/dL 8.5-10.1 [facility] Serum or plasma cholesterol in HDL measurement (mass/volume)Ordered By: Dr. Giles on 01-24-2023 Cholesterol in HDL [Mass/Vol] 62 mg/dL >40 [facility] Comment on above: The drugs N-Acetylcy steine and Metamizole may falsely depress this assay. Reference Range HDL <40 mg/dL Low HDL Cholesterol HDL >or= 60 mg/dL High HDL Cholesterol Serum or plasma cholesterol in VLDL measurement (mass/volume)Ordered By: Dr. Giles on 01-24-2023 Cholesterol in VLDL [Mass/Vol] 31 mg/dL 5-40 [facility] Serum or plasma creatinine m easurement (mass/volume)Ordered By: Dr. Giles on 01-24-2023 Creatinine [Mass/Vol] 1.57 mg/dL 0.70-1.30 [facility] Comment on above: The validity of the calculated GFR & GFRAA in patients over 70 years has not been determined. Clinical correlation is essential. Serum or plasma low density lipoprotein (LDL) cholesterol measurement (mass/volume)Ordered By: Dr. Giles on 01-24-2023 Cholesterol in LDL [Mass/Vol] 61 mg/dL 0-130 [facility] Serum or plasma urea nitroge n measurement (mass/volume)Ordered By: Dr. Giles on 01-24-2023 Urea nitrogen [Mass/Vol] 23 mg/dL 7-18 [facility] Thin prep Papanicolaou smear with manual screeningOrdered By: Dr. Giles on 01-24-2023 Thin prep Papanicolaou smear with manual screening 19 U/L 15-37 [facility] Thin prep Papanicolaou smear with manual screening 5 5-15 [facility] No Panel InformationOrdered By: Dr. Palafox on 12-02-2022 Troponin I High Sensitivity 10 pg/mL 3.0-78.0 [facility] Comment on above: Please Note: New Alexandra t Units and Gender Specific Reference Ranges. For more information see Policy Stat Procedure [place] High Sensitivity Troponin (TNIH) and attachments. XR SHOULDER GENERAL 3V OR MO RE AP/TRUE AP/OTHER RIGHTon 11-22-2022 XR Shoulder - right 3 Viewso n 11-22-2022 IMPRESSION: Degenera tive changes in the right shoulder as described above. Energy Specialist: TIMOTEO Transcribe Date/Time: Nov 22 2022 3:03P Dictated by : ALLIE LEA MD This examination was interpreted and the report reviewed and electronically signed by: ALLIE LEA MD on Nov 22 2022 3:08PM [facility] DIVISION OF RADIOLOGY * * *Final Report* [...] post mediastinal sternotomy. DIVISION OF RADIOLOGY Provider, [facility] - 11/22/2022 * * *Final Report* [...] in the right shoulder as described above. Energy Specialist: PSCB Transcribe Date/Time: Nov 22 2022 3:03P Dictated by : ALLIE LEA MD This examination was interpreted and the report reviewed and electronically signed by: ALLIE LEA MD on Nov 22 2022 3:08PM EST Radiology Study observation (narrative) Dolly hernández [facility] XR Shoulder - right 3 ViewsO rdered By: [facility] Provider on 11-22-2022 Basophil percentageOrdered B y: Dr. Betancur on 10-30-2022 Chloride [Moles/Vol] 103 mmol/L 98-107 [facility] Glucose [Mass/Vol] 108 mg/dL 74-106 [facility] Comment on above: Fasting Glucose resu lt from 100 to 125 mg/dL suggests IMPAIRED HOMEOSTASIS per A.D.A. criteria. Potassium [Moles/Vol] 4.1 mmol/L 3.5-5.1 [facility] Sodium [Moles/Vol] 136 mmol/L 136-145 [facility] Laboratory - Chemistry and C hemistry - challengeOrdered By: Dr. Betancur on 10-30-2022 CO2 [Moles/Vol] 27.0 mmol/L 21.0-32.0 [facility] Urea nitrogen/Creatinine [Mass ratio] 28.0 mg/mg 10-20 [facility] No Panel InformationOrdered By: Dr. Betancur on 10-30-2022 Estimated Creatinine Clearance Calc 56.02 ml/min [facility] Estimated GFR (MDRD) Amer 79 mL/min >60 [facility] Comment on above: GFR Calc Estimated GFR (MDRD) Non-Af Amer 65 mL/min >60 [facility] Comment on above: Non- GFR Calc Serum or plasma calcium jimbo urement (mass/volume)Ordered By: Dr. Betancur on 10-30-2022 Calcium [Mass/Vol] 9.1 mg/dL 8.5-10.1 [facility] Serum or plasma creatinine m easurement (mass/volume)Ordered By: Dr. Betancur on 10-30-2022 Creatinine [Mass/Vol] 1.18 mg/dL 0.70-1.30 [facility] Comment on above: The validity of the calculated GFR & GFRAA in patients over 70 years has not been determined. Clinical correlation is essential. Serum or plasma urea nitroge n measurement (mass/volume)Ordered By: Dr. Betancur on 10-30-2022 Urea nitrogen [Mass/Vol] 33 mg/dL 7-18 [facility] Thin prep Papanicolaou smear with manual screeningOrdered By: Dr. Betancur on 10-30-2022 Thin prep Papanicolaou smear with manual screening 6 5-15 [facility] Absolute lymphocyte countOrd ered By: Dr. Betancur on 10-29-2022 Lymphocytes Auto (Unsp spec) [#/Vol] 0.35 10*3/uL 0.83-4.51 [facility] Basophil percentageOrdered B y: Dr. Betancur on 10-29-2022 Basophils/100 WBC (Bld) 0.0 % 0-1 [facility] Eosinophils/100 WBC (Bld) 0.0 % 0-5 [facility] Neutrophils (Bld) [#/Vol] 5.6 10*3/uL 2.0-7.7 [facility] Neutrophils/100 WBC (Bld) 88.8 % 47-70 [facility] WBC (Bld) [#/Vol] 6.3 10*3/uL 4.4-11.0 [facility] Blood erythrocytes count (nu mber/volume)Ordered By: Dr. Betancur on 10-29-2022 RBC (Bld) [#/Vol] 4.18 10*6/uL 4.6-6.2 [facility] Blood hemoglobin measurement (mass/volume)Ordered By: Dr. Betancur on 10-29-2022 Hemoglobin (Bld) [Mass/Vol] 12.9 g/dL 13.0-16.5 [facility] Blood lymphocytes/100 leukoc ytesOrdered By: Dr. Betancur on 10-29-2022 Lymphocytes/100 WBC (Bld) 5.5 % 19-41 [facility] Blood manual differential co mment interpretation (narrative result)Ordered By: Dr. Betancur on 10-29-2022 Manual differential comment Anurag (Bld) [Interp] SCANNED [facility] Blood monocytes/100 leukocyt esOrdered By: Dr. Betancur on 10-29-2022 Monocytes/100 WBC (Bld) 5.4 % 0-10 [facility] Blood platelet mean volumeOr dered By: Dr. Betancur on 10-29-2022 Platelet mean volume (Bld) [Entitic vol] 9.4 fL 6.2-12.0 [facility] Determination of erythrocyte mean corpuscular volume (MCV)Ordered By: Dr. Betancur on 10-29-2022 MCV (RBC) [Entitic vol] 94.0 fL 80-94 [facility] Hematocrit Auto (Bld) [Volum e fraction]Ordered By: Dr. eBtancur on 10-29-2022 Hematocrit (Bld) [Volume fraction] 39.3 % 40-54 [facility] Laboratory - Hematology and Cell countsOrdered By: Dr. Betancur on 10-29-2022 Erythrocyte distribution width (RBC) [Entitic vol] 47.0 fL 35.1-43.9 [facility] Erythrocyte distribution width (RBC) [Ratio] 13.5 % 11.6-14.6 [facility] Immature granulocytes/100 WBC (Bld) 0.300 % 0.0-0.9 [facility] Comment on above: IG% - Immature Granu locytes (promyelocytes, myelocytes and metamyelocytes) > 1% indicates that a LEFT SHIFT is Present. MCH (RBC) [Entitic mass] 30.9 pg 27.0-32.0 [facility] Nucleated RBC/100 WBC (Bld) [Ratio] 0 % 0-5 [facility] MCHC Auto (RBC) [Mass/Vol]Or dered By: Dr. Betancur on 10-29-2022 MCHC (RBC) [Mass/Vol] 32.8 g/dL 32-36 [facility] Platelets bldOrdered By: Dr. Betancur on 10-29-2022 Platelets (Bld) [#/Vol] 186 10*3/uL 150-450 [facility] Absolute lymphocyte counton 10-28-2022 Lymphocytes Auto (Unsp spec) [#/Vol] 0.83 10*3/uL 0.83-4.51 [facility] Work Phone: Basophil percentageOrdered B y: Dr. Henriquez on 10-28-2022 Bilirubin [Mass/Vol] 0.60 mg/dL 0.20-1.00 [facility] Comment on above: For patients on eltr ombopag therapy, use of Dimension [place] TBIL is not recommended. Protein [Mass/Vol] 7.0 g/dL 6.4-8.2 [facility] Basophil percentageon 2021 Basophils/100 WBC (Bld) 0.2 % 0-1 [facility] Work Phone: Chloride [Moles/Vol] 97 mmol/L 98-107 [facility] Work Phone: Eosinophils/100 WBC (Bld) 0.0 % 0-5 [facility] Work Phone: [phone] Glucose [Mass/Vol] 118 mg/dL 74-106 [facility] Work Phone: Comment on above: Fasting Glucose resu lt from 100 to 125 mg/dL suggests IMPAIRED HOMEOSTASIS per A.D.A. criteria. Neutrophils (Bld) [#/Vol] 5.0 10*3/uL 2.0-7.7 [facility] Work Phone: Neutrophils/100 WBC (Bld) 76.8 % 47-70 [facility] Work Phone: Potassium [Moles/Vol] 3.4 mmol/L 3.5-5.1 [facility] Work Phone: Sodium [Moles/Vol] 134 mmol/L 136-145 [facility] Work Phone: WBC (Bld) [#/Vol] 6.5 10*3/uL 4.4-11.0 [facility] Work Phone: Blood erythrocytes count (nu mber/volume)on 10-28-2022 RBC (Bld) [#/Vol] 4.72 10*6/uL 4.6-6.2 [facility] Work Phone: Blood hemoglobin measurement (mass/volume)on 10-28-2022 Hemoglobin (Bld) [Mass/Vol] 14.5 g/dL 13.0-16.5 [facility] Work Phone: Blood lymphocytes/100 leukoc yteson 10-28-2022 Lymphocytes/100 WBC (Bld) 12.7 % 19-41 [facility] Work Phone: Blood monocytes/100 leukocyt eson 10-28-2022 Monocytes/100 WBC (Bld) 10.0 % 0-10 [facility] Work Phone: Blood platelet mean volumeon 10-28-2022 Platelet mean volume (Bld) [Entitic vol] 9.0 fL 6.2-12.0 [facility] Work Phone: Determination of erythrocyte mean corpuscular volume (MCV)on 10-28-2022 MCV (RBC) [Entitic vol] 92.8 fL 80-94 [facility] Work Phone: Hematocrit Auto (Bld) [Volum e fraction]on 10-28-2022 Hematocrit (Bld) [Volume fraction] 43.8 % 40-54 [facility] Work Phone: Influenza virus A and B and SARS-CoV-2 (COVID-19) Ag panel - Upper respiratory specimOrdered By: Dr. Whitney on 10-28-2022 SARS-CoV-2 (COVID-19) RNA JESSICA+probe Ql (Resp) [facility] - Chemistry and C hemistry - challengeOrdered By: Dr. Henriquez on 10-28-2022 ALP [Catalytic activity/Vol] 63 U/L 45-117 [facility] ALT [Catalytic activity/Vol] 23 U/L 16-61 [facility] Globulin (S) [Mass/Vol] 3.5 g/dL 2.2-4.2 [facility] Magnesium [Mass/Vol] 2.2 mg/dL 1.6-2.6 [facility] - Chemistry and C hemistry - challengeon 10-28-2022 CO2 [Moles/Vol] 29.0 mmol/L 21.0-32.0 [facility] Work Phone: Urea nitrogen/Creatinine [Mass ratio] 14.4 mg/mg 10-20 [facility] Work Phone: Laboratory - Chemistry and C hemistry - challengeOrdered By: Dr. Whitney on 10-28-2022 Natriuretic peptide B (Bld) [Mass/Vol] 60.4 pg/mL 0-100 [facility] - Hematology and Cell countson 10-28-2022 Erythrocyte distribution width (RBC) [Entitic vol] 45.6 fL 35.1-43.9 [facility] Work Phone: Erythrocyte distribution width (RBC) [Ratio] 13.3 % 11.6-14.6 [facility] Work Phone: Immature granulocytes/100 WBC (Bld) 0.300 % 0.0-0.9 [facility] Work Phone: Comment on above: IG% - Immature Granu locytes (promyelocytes, myelocytes and metamyelocytes) > 1% indicates that a LEFT SHIFT is Present. MCH (RBC) [Entitic mass] 30.7 pg 27.0-32.0 [facility] Work Phone: Nucleated RBC/100 WBC (Bld) [Ratio] 0 % 0-5 [facility] Work Phone: MCHC Auto (RBC) [Mass/Vol]on 10-28-2022 MCHC (RBC) [Mass/Vol] 33.1 g/dL 32-36 [facility] Work Phone: No Panel Informationon 10-28 Estimated Creatinine Clearance Calc 41.31 ml/min [facility] Work Phone: Estimated GFR (MDRD) Amer 56 mL/min >60 [facility] Work Phone: Comment on above: GFR Calc Estimated GFR (MDRD) Non-Af Amer 46 mL/min >60 [facility] Work Phone: Comment on above: Non- GFR Calc No Panel InformationOrdered By: Dr. Whitney on 10-28-2022 Troponin I High Sensitivity 31 pg/mL 3.0-78.0 [facility] Comment on above: Please Note: New Alexandra t Units and Gender Specific Reference Ranges. For more information see Policy Stat Procedure [place] High Sensitivity Troponin (TNIH) and attachments. Platelets bldon 10-28-2022 Platelets (Bld) [#/Vol] 222 10*3/uL 150-450 [facility] Work Phone: Serum or plasma albumin jimbo urement (mass/volume)Ordered By: Dr. Henriquez on 10-28-2022 Albumin [Mass/Vol] 3.5 g/dL 3.2-5.0 [facility] Serum or plasma albumin/glob ulin mass ratioOrdered By: Dr. Henriquez on 10-28-2022 Albumin/Globulin [Mass ratio] 1.0 {ratio} 0.9-2.4 [facility] Serum or plasma calcium jimbo urement (mass/volume)on 10-28-2022 Calcium [Mass/Vol] 9.3 mg/dL 8.5-10.1 [facility] Work Phone: Serum or plasma creatinine m easurement (mass/volume)on 10-28-2022 Creatinine [Mass/Vol] 1.60 mg/dL 0.70-1.30 [facility] Work Phone: Comment on above: The validity of the calculated GFR & GFRAA in patients over 70 years has not been determined. Clinical correlation is essential. Serum or plasma urea nitroge n measurement (mass/volume)on 10-28-2022 Urea nitrogen [Mass/Vol] 23 mg/dL 7-18 [facility] Work Phone: Thin prep Papanicolaou smear with manual screeningOrdered By: Dr. Henriquez on 10-28-2022 Thin prep Papanicolaou smear with manual screening 20 U/L 15-37 [facility] Thin prep Papanicolaou smear with manual screeningon 10-28-2022 Thin prep Papanicolaou smear with manual screening 8 5-15 [facility] Work Phone: Respiratory pathogens DNA an d RNA 12b panel JESSICA+probe (Unsp spec)Ordered By: Radha Roberts on 10-27-2022 Respiratory Panel (PCR) Influenza A (Subtype H1) [facility] Albumin Elph [Mass/Vol]on Albumin [Mass/Vol] 3.5 g/dL 2.9-4.4 [facility] Work Phone: Atypical perinuclear antineu trophil cytoplasmic antibodies measurementon 07-28-2022 Neutrophil cytoplasmic Ab.perinuclear.atypical IF (S) [Titer] <1:20 titer Neg:<1:20 [facility] Work Phone: Comment on above: The atypical pANCA p attern has been observed in asignificant percentage of patients with ulcerative colitis,primary sclerosing cholangitis and autoimmune hepatitis. Basophil percentageon 2021 Basophil percentage < 0.2 AI 0.0-0.9 [facility] Work Phone: Erythrocyte sedimentation ra myles 07-28-2022 ESR (Bld) [Velocity] 10 mm/h 0-20 [facility] Work Phone: Interpretation of serum or p lasma protein pattern by immunofixation (narrative resulton 07-28-2022 Protein Fractions Immunofixation Anurag [Interp] See comment [facility] Work Phone: Comment on above: NOt Observed No Panel Informationon 07-28 Addendum Document Comment . [facility] Work Phone: Comment on above: Protein electrophore sis scan will follow via computer,mail, or speech correction consultant delivery. Centromere B Antibody <0.2 AI 0.0-0.9 [facility] Work Phone: Endomysial IgA Antibody Negative Negative [facility] Work Phone: Immunoglobulin E 94 IU/mL 6-495 [facility] Work Phone: Comment on above: Performed at: [address] [id number] Director: Gian Hopkins PhD, Phone: [phone] at: [facility] - [facility] [address] [place], [place] [id number] Director: Patricia Rivera MD, Phone: [phone] RATING CLERK Antibody 0.2 AI 0.0-0.9 [facility] Work Phone: Serum DNA double strand anti body assay (units/volume)on 07-28-2022 DNA double strand Ab Qn (S) [IU]/mL 0-9 [facility] Work Phone: Comment on above: Negative <5 Equivoca l 5 - 9 Positive >9 Serum Maki-1 antibody assay (u nits/volume)on 07-28-2022 Maki-1 extractable nuclear Ab Qn (S) <0.2 AI 0.0-0.9 [facility] Work Phone: Serum Scl-70 extractable nuc lear antibody assay (units/volume)on 07-28-2022 SCL-70 extractable nuclear Ab Qn (S) <0.2 AI 0.0-0.9 [facility] Work Phone: Serum Reyes extractable nucl ear antibody detectionon 07-28-2022 Reyes extractable nuclear Ab Ql (S) <0.2 AI 0.0-0.9 [facility] Work Phone: Serum dvokg-8-cltnpwas measu rement by electrophoresison 07-28-2022 Alpha 1 globulin Elph [Mass/Vol] 0.3 g/dL 0.0-0.4 [facility] Work Phone: Alpha 1 globulin Elph [Mass/Vol] 0.9 g/dL 0.4-1.0 [facility] Work Phone: Serum classic neutrophil cyt oplasmic antibody assay (units/volume)on 07-28-2022 Neutrophil cytoplasmic Ab.classic Qn (S) <1:20 titer Neg:<1:20 [facility] Work Phone: Serum globulin measurement ( mass/volume)on 07-28-2022 Globulin (S) [Mass/Vol] 2.8 g/dL 2.2-3.9 [facility] Work Phone: Serum or plasma C reactive p rotein measurement (mass/volume)on 07-28-2022 CRP [Mass/Vol] mg/L 0.0-3.0 [facility] Work Phone: Comment on above: C-Reactive Protein ( CRP) provides useful information for thediagnosis, therapy and monitoring of inflammatory processesand associated diseases. For the evaluation of Relative Riskfor Cardiovascular Disease, a High Sensitivity CRP (HSCRP)should be ordered. Serum or plasma IgA measurem ent (mass/volume)on 07-28-2022 IgA [Mass/Vol] 175 mg/dL 61-437 [facility] Work Phone: Serum or plasma IgG measurem ent (mass/volume)on 07-28-2022 IgG [Mass/Vol] 789 mg/dL 603-1613 [facility] Work Phone: Serum or plasma IgM measurem ent (mass/volume)on 07-28-2022 IgM [Mass/Vol] 105 mg/dL 20-172 [facility] Work Phone: Serum or plasma beta globuli n measurement by electrophoresis (mass/volume)on 07-28-2022 Beta globulin Elph [Mass/Vol] 0.9 g/dL 0.7-1.3 [facility] Work Phone: Serum or plasma gamma globul in measurement by electrophoresis (mass/volume)on 07-28-2022 Gamma globulin Elph [Mass/Vol] 0.8 g/dL 0.4-1.8 [facility] Work Phone: Serum or plasma immunoelectr ophoresis interpretation (nominal result)on 07-28-2022 Interpretation IEP [Interp] Comment . [facility] Work Phone: Comment on above: No monoclonality det ected. Serum perinuclear neutrophil cytoplasmic antibody titer by immunofluorescenceon 07-28-2022 Neutrophil cytoplasmic Ab.perinuclear IF (S) [Titer] <1:20 titer Neg:<1:20 [facility] Work Phone: Comment on above: The presence of posi tive fluorescence exhibiting P-ANCA orC-ANCA patterns alone is not specific for the diagnosis ofWegener's Granulomatosis (WG) or microscopic polyangiitis.Decisions about treatment should not be based solely onANCA IFA results. The [employer] ANCA Group Consensusrecommends follow up testing of positive sera with both ND-3 and MPO-ANCA enzyme immunoassays. As many as 5% serumsamples are positive only by EIA. Ref. AM J Clin Uhsmtq9142;111:507-513. Serum tissue transglutaminas e IgA antibody assay (units/volume)on 07-28-2022 tTG IgA Qn (S) <2 U/mL 0-3 [facility] Work Phone: Comment on above: Negative 0 - 3 Weak Positive 4 - 10 Positive >10 Tissue Transglutaminase (tTG) has been identified as the endomysial antigen. Studies have demonstr- ated that endomysial IgA antibodies have over 99% specificity for gluten sensitive enteropathy. Thin prep Papanicolaou smear with manual screeningon 07-28-2022 Thin prep Papanicolaou smear with manual screening 1.3 0.7-1.7 [facility] Work Phone: Total protein bloodon 2021 Protein [Mass/Vol] 6.3 g/dL 6.0-8.5 [facility] Work Phone: CBC W Auto Differential pane l (Bld)on 07-15-2022 Basophils (Bld) [#/Vol] 10*3/uL Normal <0.11 A [facility] Comment on above: Order Comment: Speci adin Type: BLOOD SPECIMEN Ordering Facility: [facility] Address: [address] [place] [address] Performed By: #### 5 7021-8 #### [facility] CLIA [id number] [address] [place] [address] [place] Basophils/100 WBC (Bld) 0.0 % Normal A [facility] Comment on above: Order Comment: Ashly oakley Type: BLOOD SPECIMEN Ordering Facility: [facility] Address: [address] [address] Performed By: #### 5 7021-8 #### [facility] CLIA [id number] [address] [id number] [facility] [place] Differential cell count method Nom (Bld) Auto Normal [facility] Comment on above: Order Comment: Speci men Type: BLOOD SPECIMEN Ordering Facility: [facility] Address: [address] [place] [address] Performed By: #### 5 7021-8 #### [facility] CLIA [id number] [address] [place] [address] [place] Eosinophils (Bld) [#/Vol] 10*3/uL Normal <0.46 [facility] Comment on above: Order Comment: Speci men Type: BLOOD SPECIMEN Ordering Facility: [facility] Address: [address] [place] [address] Performed By: #### 5 7021-8 #### [facility] CLIA [id number] [address] Eosinophils/100 WBC (Bld) 0.1 % Normal [facility] Comment on above: Order Comment: Speci men Type: BLOOD SPECIMEN Ordering Facility: [facility] Address: [address] [place] [address] Performed By: #### 5 7021-8 #### [facility] CLIA [id number] [address] [place] [address] [place] Erythrocyte distribution width (RBC) [Ratio] 12.5 % Normal 11.5-15.0 [facility] Comment on above: Order Comment: Speci men Type: BLOOD SPECIMEN Ordering Facility: [facility] Address: [address] [place] [address] Performed By: #### 5 7021-8 #### [facility] CLIA [id number] [address] [place] [address] [place] Hematocrit (Bld) [Volume fraction] 35.7 % Low 39.0-51.0 [facility] Comment on above: Order Comment: Speci men Type: BLOOD SPECIMEN Ordering Facility: [facility] Address: [address] [place] [address] Performed By: #### 5 7021-8 #### [facility] CLIA [id number] [address] [place], [place] [address] [place] [address] [place] Hemoglobin (Bld) [Mass/Vol] 11.8 g/dL Low 13.0-17.0 [facility] Comment on above: Order Comment: Speci men Type: BLOOD SPECIMEN Ordering Facility: [facility] Address: [address] [place] [address] Performed By: #### 5 7021-8 #### [facility] CLIA [id number] [address] [place] Lymphocytes (Bld) [#/Vol] 0.89 10*3/uL Low 1.00-4.00 [facility] Comment on above: Order Comment: Speci men Type: BLOOD SPECIMEN Ordering Facility: [facility] Address: [address] [place] [address] Performed By: #### 5 7021-8 #### [facility] CLIA [id number] [address] [place] [address] Lymphocytes/100 WBC (Bld) 9.3 % Normal [facility] Comment on above: Order Comment: Speci men Type: BLOOD SPECIMEN Ordering Facility: [facility] Address: [address] [place] [address] Performed By: #### 5 7021-8 #### [facility] CLIA [id number] [address] [id number] [place] MCH (RBC) [Entitic mass] 31.5 pg Normal 26.0-34.0 [facility] Comment on above: Order Comment: Speci men Type: BLOOD SPECIMEN Ordering Facility: [facility] Address: [address] [place] [address] Performed By: #### 5 7021-8 #### [facility] CLIA [id number] [address] [place], [place] [id number] [place] [address] [place] MCHC (RBC) [Mass/Vol] 33.1 g/dL Normal 30.5-36.0 [facility] Comment on above: Order Comment: Speci men Type: BLOOD SPECIMEN Ordering Facility: [facility] Address: [address] [place] [address] Performed By: #### 5 7021-8 #### [facility] CLIA [id number] [address] [place] MCV (RBC) [Entitic vol] 95.2 fL Normal 80.0-100.0 A [facility] Comment on above: Order Comment: Speci men Type: BLOOD SPECIMEN Ordering Facility: [facility] Address: [address] [place] [address] Performed By: #### 5 7021-8 #### [facility] CLIA [id number] [address] [place] [address] [place] Monocytes (Bld) [#/Vol] 0.76 10*3/uL Normal <0.87 [facility] Comment on above: Order Comment: Speci men Type: BLOOD SPECIMEN Ordering Facility: [facility] Address: [address] [place] [address] Performed By: #### 5 7021-8 #### [facility] CLIA [id number] [address] [place] [address] Monocytes/100 WBC (Bld) 7.9 % Normal A [facility] Comment on above: Order Comment: Speci men Type: BLOOD SPECIMEN Ordering Facility: [facility] Address: [address] [place] [address] Performed By: #### 5 7021-8 #### [facility] CLIA [id number] [address] [place] Neutrophils (Bld) [#/Vol] 7.94 10*3/uL High 1.45-7.50 [facility] Comment on above: Order Comment: Speci men Type: BLOOD SPECIMEN Ordering Facility: [facility] Address: [address] [place] [address] Performed By: #### 5 7021-8 #### [facility] CLIA [id number] [address] [place] [address] [place] Neutrophils/100 WBC (Bld) 82.7 % Normal [facility] Comment on above: Order Comment: Speci men Type: BLOOD SPECIMEN Ordering Facility: [facility] Address: [address] [place] [address] Performed By: #### 5 7021-8 #### [facility] CLIA [id number] [address] [place] [address] [place] Platelet mean volume (Bld) [Entitic vol] 9.4 fL Normal 9.0-12.7 [facility] Comment on above: Order Comment: Speci men Type: BLOOD SPECIMEN Ordering Facility: [facility] Address: [address] [place] [address] Performed By: #### 5 7021-8 #### [facility] CLIA [id number] [address] [place] [address] [place] Platelets (Bld) [#/Vol] 259 10*3/uL Normal 150-400 [facility] Comment on above: Order Comment: Speci men Type: BLOOD SPECIMEN Ordering Facility: [facility] Address: [address] [place], [place] [address] Performed By: #### 5 7021-8 #### [facility] CLIA [id number] [address] [place] [address] [place] RBC (Bld) [#/Vol] 3.75 10*6/uL Low 4.20-6.00 [facility] Comment on above: Order Comment: Speci men Type: BLOOD SPECIMEN Ordering Facility: [facility] Address: [address] [place] [address] Performed By: #### 5 7021-8 #### [facility] CLIA [id number] [address] [place] [address] [place] WBC (Bld) [#/Vol] 9.60 10*3/uL Normal 3.70-11.00 [facility] Comment on above: Order Comment: Ashly oakley Type: BLOOD SPECIMEN Ordering Facility: [facility] Address: [address] [place] [address] Performed By: #### 5 7021-8 #### [facility] CLIA [id number] [address] [place] [address] [facility] [place] CT BRAIN WO IVCONon 07-15-20 CT BRAIN WO IVCON * * *Final Report* * * DATE OF EXAM: Jul 15 2022 11:00AM [facility] 0504 - CT BRAIN WO IVCON / [...] MQ: CTBCSWO_3 Dose-Length Product (DLP): 772.45 (accession [id number]), 315.30 (accession [id number]) mGy*cm. CT Dose Reduction Employed: No dose [...] vertebrae with counting from the craniocervical junction. Energy Specialist: [employer] Transcribe Date/Time: Jul 15 2022 11:57A Dictated by : PILI RITCHIE MD This examination was interpreted and the report reviewed and electronically signed by: PILI RITCHIE MD on Jul 15 2022 12:18PM EST [id number] Normal [facility] CT CERVICAL SPINE WO IVCONon 07-15-2022 CT CERVICAL SPINE WO IVCON * * *Final Report* * * DATE OF EXAM: Jul 15 2022 11:00AM [facility] 0505 - CT CERVICAL SPINE WO IVCON [...] MQ: CTBCSWO_3 Dose-Length Product (DLP): 772.45 (accession [id number]), 315.30 (accession [id number]) mGy*cm. CT Dose Reduction Employed: No dose [...] vertebrae with counting from the craniocervical junction. Energy Specialist: [employer] Transcribe Date/Time: Jul 15 2022 11:57A Dictated by : PILI RITCHIE MD This examination was interpreted and the report reviewed and electronically signed by: PILI RITCHIE MD on Jul 15 2022 12:18PM EST [id number] Normal [facility] CT CHEST W IVCON PEon 2021 CT CHEST W IVCON PE * * *Final Report* * * DATE OF EXAM: Jul 15 2022 11:51AM [facility] 0540 - CT CHEST W IVCON PE [...] imaged upper abdomen. Cholelithiasis. Fatty liver changes. Manager System (topogram) images: IMPRESSION: 1. No CT evidence of pulmonary embolism. 2. No CT evidence of acute traumatic injury to the chest. 3. Status post CABG changes. 4.No acute abnormality in the imaged upper abdomen. Cholelithiasis. Fatty liver changes. Energy Specialist: [facility] Transcribe Date/Time: Jul 15 2022 12:17P Dictated by : SIRISHA MCGEE MD This examination was interpreted and the report reviewed and electronically signed by: SIRISHA MCGEE MD on Jul 15 2022 12:20PM EST [id number] Normal [facility] Comprehensive metabolic 2000 panelon 07-15-2022 Albumin [Mass/Vol] 3.9 g/dL Normal 3.9-4.9 [facility] Comment on above: Order Comment: Speci men Type: BLOOD SPECIMEN Ordering Facility: [facility] Address: [address] [place] [address] Performed By: #### 2 4323-8 #### [facility] CLIA [id number] [address] [place] [address] [place] ALP [Catalytic activity/Vol] 57 U/L Normal 38-113 [facility] Comment on above: Order Comment: Speci men Type: BLOOD SPECIMEN Ordering Facility: [facility] Address: [address] [place] [address] Performed By: #### 2 4323-8 #### [facility] CLIA [id number] [address] [place], [place] [address] [place] [address] [place] ALT With P-5'-P [Catalytic activity/Vol] 9 U/L Low 10-54 [facility] Comment on above: Order Comment: Speci men Type: BLOOD SPECIMEN Ordering Facility: [facility] Address: [address] [place] [address] Performed By: #### 2 4323-8 #### [facility] CLIA [id number] [address] OF [facility] Anion gap [Moles/Vol] 11 mmol/L Normal 9-18 [facility] Comment on above: Order Comment: Speci men Type: BLOOD SPECIMEN Ordering Facility: [facility] Address: [address] [place] [address] Performed By: #### 2 4323-8 #### [facility] CLIA [id number] [address] [place] With P-5'-P [Catalytic activity/Vol] 9 U/L Low 14-40 [facility] Comment on above: Order Comment: Speci men Type: BLOOD SPECIMEN Ordering Facility: [facility] Address: [address] [place] [address] Performed By: #### 2 4323-8 #### [facility] CLIA [id number] [address] [place], [place] [address] [place] [address] [place] Bilirubin [Mass/Vol] 0.6 mg/dL Normal 0.2-1.3 [facility] Comment on above: Order Comment: Speci men Type: BLOOD SPECIMEN Ordering Facility: [facility] Address: [address] [place] [address] Performed By: #### 2 4323-8 #### [facility] CLIA [id number] [address] [place] [address] [place] Calcium [Mass/Vol] 9.4 mg/dL Normal 8.5-10.2 [facility] Comment on above: Order Comment: Speci men Type: BLOOD SPECIMEN Ordering Facility: [facility] Address: [address] [place] [address] Performed By: #### 2 4323-8 #### [facility] CLIA [id number] [address] [place] [address] [place] Chloride [Moles/Vol] 97 mmol/L Normal 97-105 [facility] Comment on above: Order Comment: Speci men Type: BLOOD SPECIMEN Ordering Facility: [facility] Address: [address] [place] [address] Performed By: #### 2 4323-8 #### [facility] CLIA [id number] [address] [place] [address] [place] CO2 [Moles/Vol] 32 mmol/L High 22-30 [facility] Comment on above: Order Comment: Speci men Type: BLOOD SPECIMEN Ordering Facility: [facility] Address: [address] [place] [address] Performed By: #### 2 4323-8 #### [facility] CLIA [id number] [address] [place] [address] [place] Creatinine [Mass/Vol] 1.48 mg/dL High 0.73-1.22 [facility] Comment on above: Order Comment: Speci men Type: BLOOD SPECIMEN Ordering Facility: [facility] Address: [address] [place] [address] Performed By: #### 2 4323-8 #### [facility] CLIA [id number] [address] [place] [address] [place] ESTIMATED GLOMERULAR FILTRATION RATE 51 mL/min/1.73m??? Low >=60 [facility] Comment on above: Order Comment: Ashly oakley Type: BLOOD SPECIMEN Ordering Facility: [facility] Address: [address] [place] [address] Result Comment: Shelli mated Glomerular Filtration Rate [...] By: #### 2 4323-8 #### [facility] CLIA [id number] [address] [place], [place] [id number] [place] Glucose [Mass/Vol] 107 mg/dL High 74-99 [facility] Comment on above: Order Comment: Ashly oakley Type: BLOOD SPECIMEN Ordering Facility: [facility] Address: [address] [place] [address] Result Comment: The [place] [employer] (ADA) provides guidance for cutoff [...] Standards of Medical Care in Diabetes 2016, [place] [employer]. Diabetes Care. 2016.39(Suppl 1). Performed By: #### 2 4323-8 #### [facility] CLIA [id number] [address] [place], [place] [id number] [place] Potassium [Moles/Vol] 3.6 mmol/L Low 3.7-5.1 [facility] Comment on above: Order Comment: Ashly oakley Type: BLOOD SPECIMEN [facility] [facility] Address: [address] [place] [address] Performed By: #### 2 4323-8 #### [facility] CLIA [id number] [address] [place] Protein [Mass/Vol] 6.3 g/dL Normal 6.3-8.0 [facility] Comment on above: Order Comment: Speci men Type: BLOOD SPECIMEN Ordering Facility: [facility] Address: [address] [place] [address] Performed By: #### 2 4323-8 #### [facility] CLIA [id number] [address] [place] Sodium [Moles/Vol] 140 mmol/L Normal 136-144 [facility] Comment on above: Order Comment: Speci men Type: BLOOD SPECIMEN Ordering Facility: [facility] Address: [address] [place] [address] Performed By: #### 2 4323-8 #### [facility] CLIA [id number] [address] [place] Urea nitrogen [Mass/Vol] 20 mg/dL Normal 9-24 [facility] Comment on above: Order Comment: Speci men Type: BLOOD SPECIMEN Ordering Facility: [facility] Address: [address] [place] [address] Performed By: #### 2 4323-8 #### [facility] CLIA [id number] [address] [place] ECG COMPLETEon 07-15-2022 ECG COMPLETE Ventricular Rate : 7 0 BPM Atrial Rate : 70 BPM P-R Interval : 116 ms QRS Duration : 136 ms Q-T Interval : 430 ms QTC Calculation(Bazett) : 464 ms Calculated P Loyal : 19 degrees Calculated R Loyal : -61 degrees Calculated T Loyal : 0 degrees NORMAL SINUS RHYTHM WITH SINUS ARRHYTHMIA POSSIBLE LEFT ATRIAL ENLARGEMENT LEFT AXIS DEVIATION RIGHT BUNDLE BRANCH BLOCK ABNORMAL ECG NO PREVIOUS ECGS AVAILABLE Confirmed by MD GAYE, ISIAH ([id number]) on 07/19/2022 8:54:07 AM NAME : HORACE HENDERSON PID : [id number] : 1955 Gender : Male Race : ORD : [id number] Procedure Date : Jul 15 2022 10:14:20 Edit Date : Jul 19 2022 08:54:08 Diagnosis: NORMAL SINUS RHYTHM WITH SINUS ARRHYTHMIA POSSIBLE LEFT ATRIAL ENLARGEMENT LEFT AXIS DEVIATION RIGHT BUNDLE BRANCH BLOCK ABNORMAL ECG NO PREVIOUS ECGS AVAILABLE Confirmed by MD HUIZAR VINAY ([id number]) on 07/19/2022 8:54:07 AM Test Reason : Chest Pain Location : 150 : [facility] Overread By : MD HUIZAR VINAY Edited By : MD HUIZAR VINAY Referred By : , Acquired by : EDSON MITCHELL [facility] ED NOTEon 07-15-2022 ED NOTE HNO ID: [id number] Author: Payal Santos RN Service: Nursing Author [...] DATE: July 16, 2022 TIME: 4:05 PM [facility] ED NOTE HNO ID: [id number] Author: Mee Cordova RN Service: Nursing Author Type: Registered Nurse Type: ED Notes Filed: 07/15/2022 1:10 PM Note Text: Spoke with Dr Thacker, meal tray will be ordered for the patient [facility] ED NOTE HNO ID: [id number] Author: Mee Cordova RN Service: Nursing Author Type: Registered Nurse Type: ED Notes Filed: 07/15/2022 11:04 AM Note Text: I spoke to the patient concerning why he came to our facility. Pt stated, I was instructed to leave the Urgent Care and go either to [place] or [facility] to be evaluated, I don't think she wanted me to go back to [facility] after the lack of testing they did when I was there a few days ago". [facility] ED NOTE HNO ID: [id number] Author: Mee Cordova RN Service: Nursing Author Type: Registered Nurse Type: ED Notes Filed: 07/15/2022 10:39 AM Note Text: Patient informed: the name of medication, why we are giving it, possible side effects, what they may expect to feel, and was offered a chance to ask questions, prior to the administration of Fentanyl [facility] ED NOTE HNO ID: [id number] Author: Mee Cordova RN Service: Nursing Author Type: Registered Nurse Type: ED Notes Filed: 07/15/2022 10:42 AM Note Text: Spoke with pt concerning pain medication, I asked him to let me know if he changes his mind about something to help with his pain, pt stated I could change my mind at any moment". Will speak to Dr Thacker concerning pain medication for pt. [facility] ED NOTE HNO ID: [id number] Author: Mee Cordova RN Service: Nursing Author Type: Registered Nurse Type: ED Notes Filed: 07/15/2022 10:15 AM Note Text: Dr Thacker at bedside [facility] ED NOTE HNO ID: [id number] Author: Mee Cordova RN Service: Nursing Author Type: Registered Nurse Type: ED Notes Filed: 07/15/2022 10:14 AM Note Text: Resp at bedside for EKG [facility] ED NOTE HNO ID: [id number] Author: Mee Cordova RN Service: Nursing Author Type: Registered Nurse Type: ED Notes Filed: 07/15/2022 10:09 AM Note Text: Pt arrives from [facility] with reports right lateral rib pain. Pt reports on Monday evening he had a coughing fit, and then the next thing I know I am on the ground, so I don't know if I passed out or not". Pt was seen at [place] on Monday evening with report of "just chest xray, they didn't really say anything about the xray". Pt is AOX3, 97% on room air upon arrival to the room. [facility] ED PROV NOTEon 07-15-2022 ED PROV NOTE HNO ID: [id number] Author: Swapnil Thacker MD Service: Emergency Medicine Author Type: Physician Type: ED Provider Notes Filed: 07/15/2022 2:04 PM Note Text: ED Provider Note Patient Name: Horace Henderson : 1955 SERVICE DATE: 07/15/22 History Patient presents with: Difficulty Breathing Fall This is a 67-year-old white male that states he took a COVID test on because 2 days prior he had been [...] he was coughing really hard and then "the next thing I know I am waking up on the ground". He states he must of hit his head and shoulder because the day after that when he went to work he was feeling "sore". He states then on Monday when he was coughing he had a severe pain in his right chest wall and he felt a "pop". He states he was seen at [place] emergency department and had an x-ray that [...] disease) 01/11/2012 Chronic bronchitis (HCC) 10/07/2013 06/17/2014 OCF046% predicted. COPD (chronic obstructive pulmonary disease) (HCC) [...] 78.9 kg (174 lb) 1.702 m (5' 7") Physical Exam Vitals and nursing note reviewed. Constitutional: Appearance: He is well-developed. He is not toxic-appearing or diaphoretic. HENT: Head: Normocephalic and atraumatic. Right Ear: Tympanic membrane, ear canal and external ear normal. (more content not included)... Normal [facility] Basophil percentageon 2020 Bilirubin [Mass/Vol] 0.40 mg/dL 0.20-1.00 [facility] Work Phone: Comment on above: For patients on eltr ombopag therapy, use of Dimension [place] TBIL is not recommended. Chloride [Moles/Vol] 101 mmol/L 98-107 [facility] Work Phone: Cholesterol [Mass/Vol] 128 mg/dL <200 [facility] Work Phone: Comment on above: <200 mg/dL Desirable 200-240 mg/dL Borderline >240 mg/dL High Risk Glucose [Mass/Vol] 97 mg/dL 74-106 [facility] Work Phone: Comment on above: Please note revised GLUCOSE reference range effective 2017. Potassium [Moles/Vol] 3.9 mmol/L 3.5-5.1 [facility] Work Phone: Protein [Mass/Vol] 7.1 g/dL 6.4-8.2 [facility] Work Phone: Sodium [Moles/Vol] 139 mmol/L 136-145 [facility] Work Phone: Triglyceride [Mass/Vol] 112 mg/dL [facility] Work Phone: Comment on above: The drugs N-Acetylcy steine and Metamizole may falsely depress this assay.Serum Triglycerides Reference Interval Normal <150 mg/dL Borderline high 150 - 199 mg/dL High 200 - 499 mg/dL Very High > or = 500 mg/dL Direct bilirubinon Bilirubin.direct [Mass/Vol] 0.13 mg/dL 0.00-0.30 [facility] Work Phone: Laboratory - Chemistry and C hemistry - challengeon 10-07-2021 ALP [Catalytic activity/Vol] 67 U/L 45-117 [facility] Work Phone: ALT [Catalytic activity/Vol] 27 U/L 16-61 [facility] Work Phone: CO2 [Moles/Vol] 34.0 mmol/L 21.0-32.0 [facility] Work Phone: Globulin (S) [Mass/Vol] 3.5 g/dL 2.2-4.2 [facility] Work Phone: Urea nitrogen/Creatinine [Mass ratio] 17.1 mg/mg 10-20 [facility] Work Phone: No Panel Informationon 10-07 Estimated GFR (MDRD) Amer 85 mL/min >60 [facility] Work Phone: Comment on above: GFR Calc Estimated GFR (MDRD) Non-Af Amer 70 mL/min >60 [facility] Work Phone: Comment on above: Non- GFR Calc Serum or plasma albumin jimbo urement (mass/volume)on 10-07-2021 Albumin [Mass/Vol] 3.6 g/dL 3.2-5.0 [facility] Work Phone: Serum or plasma calcium jimbo urement (mass/volume)on 10-07-2021 Calcium [Mass/Vol] 9.5 mg/dL 8.5-10.1 [facility] Work Phone: Serum or plasma cholesterol in HDL measurement (mass/volume)on 12-09-2021 Cholesterol in HDL [Mass/Vol] 58 mg/dL [facility] Work Phone: Comment on above: The drugs N-Acetylcy steine and Metamizole may falsely depress this assay. Reference Range HDL <40 mg/dL Low HDL Cholesterol HDL >or= 60 mg/dL High HDL Cholesterol Serum or plasma cholesterol in VLDL measurement (mass/volume)on 10-07-2021 Cholesterol in VLDL [Mass/Vol] 22 mg/dL 5-40 [facility] Work Phone: Serum or plasma creatinine m easurement (mass/volume)on 10-07-2021 Creatinine [Mass/Vol] 1.11 mg/dL 0.70-1.30 [facility] Work Phone: Comment on above: The validity of the calculated GFR & GFRAA in patients over 70 years has not been determined. Clinical correlation is essential. Serum or plasma low density lipoprotein (LDL) cholesterol measurement (mass/volume)on 10-07-2021 Cholesterol in LDL [Mass/Vol] 48 mg/dL 0-130 [facility] Work Phone: Serum or plasma urea nitroge n measurement (mass/volume)on 10-07-2021 Urea nitrogen [Mass/Vol] 19 mg/dL 7-18 [facility] Work Phone: Thin prep Papanicolaou smear with manual screeningon 10-07-2021 Thin prep Papanicolaou smear with manual screening 17 U/L 15-37 [facility] Work Phone: Thin prep Papanicolaou smear with manual screening 4 5-15 [facility] Work Phone: XR Lumbar spine 3 Viewson IMPRESSION: DEGENERATIVE CHANGE, MOST PRONOUNCED IN THE LOWER LUMBAR REGION. Energy Specialist: [facility] Transcribe Date/Time: Dec 29 2020 1:59P Dictated by : ASHLEY MARCUS MD This examination was interpreted and the report reviewed and electronically signed by: ASHLEY MARCUS MD on Dec 29 2020 2:09PM [facility] DIVISION OF RADIOLOGY * * *Final Report* [...] L3 through S1. DIVISION OF RADIOLOGY Provider, [facility] - 12/29/2020 * * *Final Report* * [...] MOST PRONOUNCED IN THE LOWER LUMBAR REGION. Energy Special[facility] Transcribe Date/Time: Dec 29 2020 1:59P Dictated by : ASHLEY MARCUS MD This examination was interpreted and the report reviewed and electronically signed by: ASHLEY MARCUS MD on Dec 29 2020 2:09PM EST Radiology Study observation (narrative) Dolly hernández [facility] XR Lumbar spine 3 ViewsOrder ed By: [facility] Provider on 12-29-2020 Influenza virus A and B and SARS-CoV-2 (COVID-19) Ag panel - Upper respiratory specim SARS-CoV-2 (COVID-19) RNA JESSICA+probe Ql (Resp) [facility] Work Phone: Respiratory pathogens DNA an d RNA 12b panel JESSICA+probe (Unsp spec) Respiratory Panel (PCR) Influenza A (Subtype H1) [facility] Work Phone: Vital Signs Date Time Vital Sign Value Performing Clinician Facility 07-21-2025 08:05-0400 Body height 170.[address] George Vázquez MD Work Phone: [facility] 07-21-2025 08:05-0400 Body mass index (BMI) [Ratio] 25.7 kg/m2 Dr. George Vázquez MD Work Phone: [facility] 07-21-2025 08:05-0400 Body weight 74.[address] George Vázquez MD Work Phone: [facility] 07-07-2025 10:55-0400 Body mass index (BMI) [Ratio] 28.62 kg/m2 Blanca Tilley TECHNICAL SUPPORT SPECIALIST.GROUP HOME MANAGER Work Phone: 07-07-2025 10:55-0400 Body weight 81.9 kg Blanca Tilley TECHNICAL SUPPORT SPECIALIST.GROUP HOME MANAGER Work Phone: 07-07-2025 10:55-0400 Diastolic blood pressure 72 mm[Hg] Blanca Tilley TECHNICAL SUPPORT SPECIALIST.GROUP HOME MANAGER Work Phone: 07-07-2025 10:55-0400 Heart rate 86 /min Blanca Tilley TECHNICAL SUPPORT SPECIALIST.GROUP HOME MANAGER Work Phone: 07-07-2025 10:55-0400 SaO2% (BldA) [Mass fraction] 95 % Blanca Tilley TECHNICAL SUPPORT SPECIALIST.GROUP HOME MANAGER Work Phone: 07-07-2025 10:55-0400 Systolic blood pressure 138 mm[Hg] Blanca Tilley TECHNICAL SUPPORT SPECIALIST.GROUP HOME MANAGER Work Phone: 07-03-2025 12:02-0400 Body mass index (BMI) [Ratio] 29 kg/m2 Prateek Matos TECHNICAL SUPPORT SPECIALIST.GROUP HOME MANAGER Work Phone: 07-03-2025 12:02-0400 Body temperature 97.81 [degF] Prateek Matos TECHNICAL SUPPORT SPECIALIST.GROUP HOME MANAGER Work Phone: 07-03-2025 12:02-0400 Body weight 83 kg Prateek Matos TECHNICAL SUPPORT SPECIALIST.GROUP HOME MANAGER Work Phone: 07-03-2025 12:02-0400 Diastolic blood pressure 95 mm[Hg] [facility] TECHNICAL SUPPORT SPECIALIST.GROUP HOME MANAGER Work Phone: Comment on above: checked BP x 2175/96 07-03-2025 12:02-0400 Heart rate 93 /min [facility] TECHNICAL SUPPORT SPECIALIST.GROUP HOME MANAGER Work Phone: 07-03-2025 12:02-0400 Respiratory rate 22 /min [facility] TECHNICAL SUPPORT SPECIALIST.GROUP HOME MANAGER Work Phone: 07-03-2025 12:02-0400 SaO2% (BldA) [Mass fraction] 94 % Prateek [facility] TECHNICAL SUPPORT SPECIALIST.GROUP HOME MANAGER Work Phone: 07-03-2025 12:02-0400 Systolic blood pressure 167 mm[Hg] [facility]ek [facility] TECHNICAL SUPPORT SPECIALIST.GROUP HOME MANAGER Work Phone: Comment on above: checked BP x 2175/96 05-28-2025 13:37-0400 Diastolic blood pressure 81 mm[Hg] George Vázquez MD Work Phone: 05-28-2025 13:37-0400 Heart rate 72 /min George Vázquez MD Work Phone: 05-28-2025 13:37-0400 Systolic blood pressure 157 mm[Hg] George Vázquez MD Work Phone: 05-28-2025 13:28-0400 Body height 169.2 cm George Vázquez MD Work Phone: 05-28-2025 13:28-0400 Body mass index (BMI) [Ratio] 27.5 kg/m2 George Vázquez MD Work Phone: 05-28-2025 13:28-0400 Body weight 78.7 kg George Vázquez MD Work Phone: 05-05-2025 12:58-0400 Body height 170.[address] George Vázquez MD Work Phone: [facility] 05-05-2025 12:58-0400 Body mass index (BMI) [Ratio] 27.8 kg/m2 Dr. George Vázquez MD Work Phone: 6(299)156-820345 [place] [address] 05-05-2025 12:58-0400 Body weight 80.[address] George Vázquez MD Work Phone: 3(111)543-539445 [place] [address] 05-05-2025 12:58-0400 Diastolic blood pressure 77 mm[Hg] Dr. George Vázquez MD Work Phone: 9(913)071-959045 [place] [address] 05-05-2025 12:58-0400 Heart rate 80 /min Dr. George Vázquez MD Work Phone: 5(303)843-445857 [place] [address] 05-05-2025 12:58-0400 Respiratory rate 16 /min Dr. George Vázquez MD Work Phone: 5(569)598-620645 [place] [address] 05-05-2025 12:58-0400 Systolic blood pressure 135 mm[Hg] Dr. George Vázquez MD Work Phone: 8(561)714-949157 [place] [address] 01-20-2025 14:53-0400 Body height 170.[address] George Vázquez MD Work Phone: 1(211)719-844045 [place] [address] 01-20-2025 07:32-0400 Body mass index (BMI) [Ratio] 27.8 kg/m2 Dr. George Vázquez MD Work Phone: 7(402)678-474457 [place] [address] 01-20-2025 07:32-0400 Body weight 80.[address] George Vázquez MD Work Phone: 0(067)373-798645 [place] [address] 01-20-2025 07:32-0400 Diastolic blood pressure 79 mm[Hg] Dr. George Vázquez MD Work Phone: [facility] 01-20-2025 07:32-0400 Heart rate 82 /min Dr. George Vázquez MD Work Phone: [facility] 01-20-2025 07:32-0400 Respiratory rate 18 /min Dr. George Vázquez MD Work Phone: [facility] 01-20-2025 07:32-0400 SaO2% (BldA) [Mass fraction] 94 % Dr. George Vázquez MD Work Phone: [facility] 01-20-2025 07:32-0400 Systolic blood pressure 121 mm[Hg] Dr. George Vázquez MD Work Phone: [facility] 01-08-2025 15:27-0400 Body mass index (BMI) [Ratio] 27.45 kg/m2 George Vázquez MD Work Phone: 01-08-2025 15:27-0400 Body temperature 97.9 [degF] George Vázquez MD Work Phone: 01-08-2025 15:27-0400 Body weight 79.5 kg George Vázquez MD Work Phone: 01-08-2025 15:27-0400 Diastolic blood pressure 78 mm[Hg] George Vázquez MD Work Phone: 01-08-2025 15:27-0400 Heart rate 110 /min George Vázquez MD Work Phone: 01-08-2025 15:27-0400 Respiratory rate 20 /min George áVzquez MD Work Phone: 01-08-2025 15:27-0400 Systolic blood pressure 130 mm[Hg] George Vázquez MD Work Phone: 01-08-2025 10:51-0400 Body height 170.[address] George Vázquez MD Work Phone: 9(401)909-180557 [place] [address] 01-08-2025 10:43-0400 Diastolic blood pressure 89 mm[Hg] Dr. George Vázquez MD Work Phone: 5(721)233-617845 [place] [address] 01-08-2025 10:43-0400 Heart rate 70 /min Dr. George Vázquez MD Work Phone: 3(299)979-793745 [place] [address] 01-08-2025 10:43-0400 Respiratory rate 20 /min Dr. George Vázquez MD Work Phone: 7(869)882-146545 [place] [address] 01-08-2025 10:43-0400 Systolic blood pressure 159 mm[Hg] Dr. George Vázquez MD Work Phone: 8(063)432-251245 [place] [address] 11-06-2024 10:49-0500 Body weight 81.[address] George Vázquez MD Work Phone: 9(806)699-558045 [place] [address] 11-06-2024 10:49-0500 Heart rate 97 /min Dr. George Vázquez MD Work Phone: 5(258)052-673045 [place] [address] 11-06-2024 10:49-0500 SaO2% (BldA) [Mass fraction] 95 % Dr. George Vázquez MD Work Phone: 5(143)688-536645 [place] [address] 11-05-2024 13:04-0500 Body weight [address] George Vázquez MD Work Phone: 5(026)675-425645 [place] [address] 11-05-2024 13:04-0500 Diastolic blood pressure 81 mm[Hg] Dr. George Vázquez MD Work Phone: 6(613)631-010045 [place] [address] 11-05-2024 13:04-0500 Heart rate 119 /min Dr. George Vázquez MD Work Phone: 9(794)855-680745 [place] [address] 11-05-2024 13:04-0500 Respiratory rate 18 /min Dr. George Vázquez MD Work Phone: 9(627)060-655145 [place] [address] 11-05-2024 13:04-0500 SaO2% (BldA) [Mass fraction] 91 % Dr. George Vázquez MD Work Phone: 4(130)561-694645 [place] [address] 11-05-2024 13:04-0500 Systolic blood pressure 121 mm[Hg] Dr. George Vázquez MD Work Phone: 1(731)089-099345 [place] [address] 10-28-2024 16:00-0500 Heart rate 90 /min Dr. George Vázquez MD Work Phone: 0(039)183-577645 [place] [address] 10-28-2024 16:00-0500 Respiratory rate 18 /min Dr. George Vázquez MD Work Phone: 1(393)460-012145 [place] [address] 10-28-2024 14:00-0500 Body temperature 98.1 [degF] Dr. George Vázquez MD Work Phone: 7(056)125-892545 [place] [address] 10-28-2024 14:00-0500 Diastolic blood pressure 80 mm[Hg] Dr. George Vázquez MD Work Phone: 2(240)114-539245 [place] [address] 10-28-2024 14:00-0500 SaO2% (BldA) [Mass fraction] 93 % Dr. George Vázquez MD Work Phone: 8(880)584-913245 [place] [address] 10-28-2024 14:00-0500 Systolic blood pressure 120 mm[Hg] Dr. George Vázquez MD Work Phone: 5(110)085-265145 [place] [address] 10-28-2024 03:40-0500 Inhaled oxygen flow rate 2 L/min Dr. George Vázquez MD Work Phone: 1(929)790-448945 [place] [address] 10-27-2024 16:50-0500 Body mass index (BMI) [Ratio] 27.9 kg/m2 Dr. George Vázquez MD Work Phone: 0(111)162-906745 [place] [address] 10-27-2024 16:50-0500 Body weight [address] George Vázquez MD Work Phone: 5(330)754-780245 [place] [address] 09-17-2024 19:48-0500 Body temperature 98.2 [degF] Dr. George Vázquez MD Work Phone: 6(876)745-068145 [place] [address] 09-17-2024 19:48-0500 Diastolic blood pressure 74 mm[Hg] Dr. George Vázquez MD Work Phone: [facility] 09-17-2024 19:48-0500 Heart rate 78 /min Dr. George Vázquez MD Work Phone: [facility] 09-17-2024 19:48-0500 Respiratory rate 16 /min Dr. George Vázquez MD Work Phone: [facility] 09-17-2024 19:48-0500 SaO2% (BldA) [Mass fraction] 99 % Dr. George Vázquez MD Work Phone: [facility] 09-17-2024 19:48-0500 Systolic blood pressure 124 mm[Hg] Dr. George Vázquez MD Work Phone: [facility] 09-17-2024 15:53-0500 Body mass index (BMI) [Ratio] 28 kg/m2 Dr. George Vázquez MD Work Phone: [facility] 09-17-2024 15:53-0500 Body weight 81.[address] George Vázquez MD Work Phone: [facility] 09-12-2024 16:01-0500 Body mass index (BMI) [Ratio] 28.38 kg/m2 George Vázquez MD Work Phone: 09-12-2024 16:01-0500 Body temperature 98.91 [degF] George Vázquez MD Work Phone: 09-12-2024 16:01-0500 Body weight 82.2 kg George Vázquez MD Work Phone: 09-12-2024 16:01-0500 Diastolic blood pressure 84 mm[Hg] George Vázquez MD Work Phone: 09-12-2024 16:01-0500 Heart rate 130 /min George Vázquez MD Work Phone: 09-12-2024 16:01-0500 Respiratory rate 28 /min George Vázquez MD Work Phone: 09-12-2024 16:01-0500 SaO2% (BldA) [Mass fraction] 95 % George Vázquez MD Work Phone: 09-12-2024 16:01-0500 Systolic blood pressure 134 mm[Hg] George Vázquez MD Work Phone: 09-04-2024 15:37-0500 Body mass index (BMI) [Ratio] 28.62 kg/m2 George Vázquez MD Work Phone: 09-04-2024 15:37-0500 Body temperature 98.8 [degF] George Vázquez MD Work Phone: 09-04-2024 15:37-0500 Body weight 82.9 kg George Vázquez MD Work Phone: 09-04-2024 15:37-0500 Diastolic blood pressure 74 mm[Hg] George Vázquez MD Work Phone: 09-04-2024 15:37-0500 Heart rate 96 /min George Vázquez MD Work Phone: 09-04-2024 15:37-0500 Respiratory rate 20 /min George Vázquez MD Work Phone: 09-04-2024 15:37-0500 SaO2% (BldA) [Mass fraction] 91 % George Vázquez MD Work Phone: 09-04-2024 15:37-0500 Systolic blood pressure 128 mm[Hg] George Vázquez MD Work Phone: 08-30-2024 10:38-0400 Body mass index (BMI) [Ratio] 28.31 kg/m2 Prateek Matos APRN.CNP Work Phone: 08-30-2024 10:38-0400 Body temperature 97.81 [degF] Prateek Matos TECHNICAL SUPPORT SPECIALIST.GROUP HOME MANAGER Work Phone: 08-30-2024 10:38-0400 Body weight 82 kg Prateek Shawna TECHNICAL SUPPORT SPECIALIST.GROUP HOME MANAGER Work Phone: 08-30-2024 10:38-0400 Diastolic blood pressure 78 mm[Hg] Prateek Matos TECHNICAL SUPPORT SPECIALIST.GROUP HOME MANAGER Work Phone: 08-30-2024 10:38-0400 Heart rate 106 /min Prateek Matos TECHNICAL SUPPORT SPECIALIST.GROUP HOME MANAGER Work Phone: 08-30-2024 10:38-0400 Respiratory rate 24 /min Prateek Matos TECHNICAL SUPPORT SPECIALIST.GROUP HOME MANAGER Work Phone: 08-30-2024 10:38-0400 SaO2% (BldA) [Mass fraction] 94 % Prateek Matos TECHNICAL SUPPORT SPECIALIST.GROUP HOME MANAGER Work Phone: 08-30-2024 10:38-0400 Systolic blood pressure 130 mm[Hg] Prateek Matos TECHNICAL SUPPORT SPECIALIST.GROUP HOME MANAGER Work Phone: 08-25-2024 10:06-0400 Body mass index (BMI) [Ratio] 27.62 kg/m2 Blanche Nevarez APRN.GROUP HOME MANAGER Work Phone: 08-25-2024 10:06-0400 Body temperature 97.39 [degF] Blanche Nevarez APRN.GROUP HOME MANAGER Work Phone: 08-25-2024 10:06-0400 Body weight 80 kg Blanche Nevarez APRN.GROUP HOME MANAGER Work Phone: 08-25-2024 10:06-0400 Diastolic blood pressure 78 mm[Hg] Blanche Nevarez TECHNICAL SUPPORT SPECIALIST.GROUP HOME MANAGER Work Phone: 08-25-2024 10:06-0400 Heart rate 83 /min Blanche Nevarez APRN.GROUP HOME MANAGER Work Phone: 08-25-2024 10:06-0400 Respiratory rate 24 /min Blanche Nevarez APRN.GROUP HOME MANAGER Work Phone: 08-25-2024 10:06-0400 SaO2% (BldA) [Mass fraction] 94 % Blanche Nevarez APRN.GROUP HOME MANAGER Work Phone: 08-25-2024 10:06-0400 Systolic blood pressure 138 mm[Hg] Blanche Nevarez APRN.GROUP HOME MANAGER Work Phone: 08-12-2024 08:52-0400 Body mass index (BMI) [Ratio] 27.69 kg/m2 Blanca MyersAlban TECHNICAL SUPPORT SPECIALIST.GROUP HOME MANAGER Work Phone: 08-12-2024 08:52-0400 Body weight 80.2 kg Blanca DossAlban TECHNICAL SUPPORT SPECIALIST.GROUP HOME MANAGER Work Phone: 08-12-2024 08:52-0400 Diastolic blood pressure 82 mm[Hg] Blanca DossAlban TECHNICAL SUPPORT SPECIALIST.GROUP HOME MANAGER Work Phone: 08-12-2024 08:52-0400 Heart rate 91 /min Blanca DossAlban TECHNICAL SUPPORT SPECIALIST.[employer] HOME MANAGER Work Phone: 08-12-2024 08:52-0400 Respiratory rate 20 /min Blanca DossAlban TECHNICAL SUPPORT SPECIALIST.GROUP HOME MANAGER Work Phone: 08-12-2024 08:52-0400 Systolic blood pressure 125 mm[Hg] Blanca Alban TECHNICAL SUPPORT SPECIALIST.GROUP HOME MANAGER Work Phone: 05-27-2024 12:02-0400 Body height 170.2 cm George Vázquez MD Work Phone: 05-27-2024 12:02-0400 Body mass index (BMI) [Ratio] 27.88 kg/m2 George Vázquez MD Work Phone: 05-27-2024 12:02-0400 Body temperature 98.6 [degF] George Vázquez MD Work Phone: 05-27-2024 12:02-0400 Body weight 80.74 kg George Vázquez MD Work Phone: 05-27-2024 12:02-0400 Diastolic blood pressure 72 mm[Hg] George Vázquez MD Work Phone: 05-27-2024 12:02-0400 Heart rate 80 /min George Vázquez MD Work Phone: 05-27-2024 12:02-0400 Respiratory rate 18 /min George Vázquez MD Work Phone: 05-27-2024 12:02-0400 Systolic blood pressure 116 mm[Hg] George Vázquez MD Work Phone: 11-23-2023 06:36-0500 Body height 170.[address] George Vázquez Work Phone: [facility] 11-23-2023 06:36-0500 Body mass index (BMI) [Ratio] 27.3 kg/m2 Dr. George Vázquez Work Phone: [facility] 11-23-2023 06:36-0500 Body temperature 97.4 [degF] Dr. George Vázquez Work Phone: [facility] 11-23-2023 06:36-0500 Body weight 79.[address] George Vázquez Work Phone: [facility] 11-23-2023 06:36-0500 Diastolic blood pressure 81 mm[Hg] Dr. George Vázquez Work Phone: [facility] 11-23-2023 06:36-0500 Heart rate 106 /min Dr. George Vázquez Work Phone: [facility] 11-23-2023 06:36-0500 Respiratory rate 20 /min Dr. George Vázquez Work Phone: 2(727)658-322645 [place] [address] 11-23-2023 06:36-0500 SaO2% (BldA) [Mass fraction] 93 % Dr. George Vázquez Work Phone: 5(816)236-006445 [place] [address] 11-23-2023 06:36-0500 Systolic blood pressure 128 mm[Hg] Dr. George Vázquez Work Phone: 8(945)216-788445 [place] [address] 11-10-2023 09:48-0500 Body mass index (BMI) [Ratio] 27.2 kg/m2 Dr. George Vázquez Work Phone: 9(861)552-365145 [place] [address] 11-10-2023 09:48-0500 Body weight 78.[address] George Vázquez Work Phone: 9(727)554-911645 [place] [address] 11-10-2023 09:48-0500 Diastolic blood pressure 81 mm[Hg] Dr. George Vázquez Work Phone: 6(394)121-276145 [place] [address] 11-10-2023 09:48-0500 Heart rate 94 /min Dr. George Vázquez Work Phone: 8(169)250-896145 [place] [address] 11-10-2023 09:48-0500 Respiratory rate 18 /min Dr. George Vázquez Work Phone: 8(571)769-062545 [place] [address] 11-10-2023 09:48-0500 Systolic blood pressure 117 mm[Hg] Dr. George Vázquez Work Phone: 3(179)746-711645 [place] [address] 08-07-2023 10:03-0400 Body height 170.[address] George Vázquez Work Phone: 0(750)864-972745 [place] [address] 08-07-2023 10:03-0400 Body mass index (BMI) [Ratio] 27.1 kg/m2 Dr. George Vázquez Work Phone: 3(602)485-120045 [place] [address] 08-07-2023 10:03-0400 Body weight 78.[address] George Vázquez Work Phone: 8(890)012-492445 [place] [address] 08-07-2023 10:03-0400 Diastolic blood pressure 67 mm[Hg] Dr. George Vázquez Work Phone: 8(352)434-406657 [place] [address] 08-07-2023 10:03-0400 Heart rate 98 /min Dr. George Vázquez Work Phone: 1(110)252-047257 [place] [address] 08-07-2023 10:03-0400 Respiratory rate 20 /min Dr. George Vázquez Work Phone: 8(462)220-707057 [place] [address] 08-07-2023 10:03-0400 SaO2% (BldA) [Mass fraction] 94 % Dr. George Vázquez Work Phone: 5(845)724-329145 [place] [address] 08-07-2023 10:03-0400 Systolic blood pressure 107 mm[Hg] Dr. George Vázquez Work Phone: 5(070)199-070545 [place] [address] 07-28-2023 08:23-0400 Body mass index (BMI) [Ratio] 27.3 kg/m2 Dr. George Vázquez Work Phone: 8(865)599-812245 [place] [address] 07-28-2023 08:23-0400 Body temperature 97.4 [degF] Dr. George Vázquez Work Phone: 8(225)050-532545 [place] [address] 07-28-2023 08:23-0400 Body weight 79.[address] George Vázquez Work Phone: 6(230)871-767445 [place] [address] 07-28-2023 08:23-0400 Diastolic blood pressure 87 mm[Hg] Dr. George Vázquez Work Phone: 2(333)278-271757 [place] [address] 07-28-2023 08:23-0400 Heart rate 80 /min Dr. George Vázquez Work Phone: 0(046)556-291057 [place] [address] 07-28-2023 08:23-0400 Respiratory rate 18 /min Dr. George Vázquez Work Phone: 3(194)361-422345 [place] [address] 07-28-2023 08:23-0400 SaO2% (BldA) [Mass fraction] 94 % Dr. George Vázquez Work Phone: 4(596)371-926345 [place] [address] 07-28-2023 08:23-0400 Systolic blood pressure 143 mm[Hg] Dr. George Vázquez Work Phone: 9(171)112-639857 [place] [address] 07-21-2023 10:53-0400 Body temperature 98.7 [degF] Dr. George Vázquez Work Phone: 8(404)764-604757 [place] [address] 07-21-2023 10:53-0400 Diastolic blood pressure 76 mm[Hg] Dr. George Vázquez Work Phone: 7(653)203-741645 [place] [address] 07-21-2023 10:53-0400 Heart rate 78 /min Dr. George Vázquez Work Phone: 7(551)301-852045 [place] [address] 07-21-2023 10:53-0400 SaO2% (BldA) [Mass fraction] 95 % Dr. George Vázquez Work Phone: 9(611)854-662345 [place] [address] 07-21-2023 10:53-0400 Systolic blood pressure 125 mm[Hg] Dr. George Vázquez Work Phone: 0(326)758-719845 [place] [address] 06-19-2023 14:23-0400 Body mass index (BMI) [Ratio] 27.3 kg/m2 Dr. George Vázquez Work Phone: 4(743)087-820445 [place] [address] 06-19-2023 14:23-0400 Body weight 79.[address] George Vázquez Work Phone: 4(640)624-509545 [place] [address] 06-19-2023 14:23-0400 Diastolic blood pressure 70 mm[Hg] Dr. George Vázquez Work Phone: 6(439)306-097757 [place] [address] 06-19-2023 14:23-0400 Heart rate 91 /min Dr. George Vázquez Work Phone: 5(447)210-122845 [place] [address] 06-19-2023 14:23-0400 Respiratory rate 18 /min Dr. George Vázquez Work Phone: 7(627)241-839057 [place] [address] 06-19-2023 14:23-0400 SaO2% (BldA) [Mass fraction] 94 % Dr. George Vázquez Work Phone: 7(627)112-126657 [place] [address] 06-19-2023 14:23-0400 Systolic blood pressure 104 mm[Hg] Dr. George Vázquez Work Phone: [facility] 05-24-2023 14:57-0400 Body height 169.2 cm George Vázquez MD Work Phone: 05-24-2023 14:57-0400 Body weight 78.93 kg George Vázquez MD Work Phone: 05-24-2023 14:57-0400 Diastolic blood pressure 64 mm[Hg] George Vázquez MD Work Phone: 05-24-2023 14:57-0400 Heart rate 96 /min George Vázquez MD Work Phone: 05-24-2023 14:57-0400 Respiratory rate 18 /min George Vázquez MD Work Phone: 05-24-2023 14:57-0400 SaO2% (BldA) [Mass fraction] 94 % George Vázquez MD Work Phone: 05-24-2023 14:57-0400 Systolic blood pressure 100 mm[Hg] George Vázquez MD Work Phone: 04-11-2023 13:02-0400 Body height 170.[address] eGorge Vázquez Work Phone: [facility] 04-11-2023 13:02-0400 Body mass index (BMI) [Ratio] 26.6 kg/m2 Dr. George Vázquez Work Phone: [facility] 04-11-2023 13:02-0400 Body temperature 97.6 [degF] Dr. George Vázquez Work Phone: [facility] 04-11-2023 13:02-0400 Body weight 77.[address] George Vázquez Work Phone: [facility] 04-11-2023 13:02-0400 Diastolic blood pressure 64 mm[Hg] Dr. George Vázquez Work Phone: 3(262)873-730457 [place] [address] 04-11-2023 13:02-0400 Heart rate 85 /min Dr. George Vázquez Work Phone: 0(045)446-855745 [place] [address] 04-11-2023 13:02-0400 Respiratory rate 18 /min Dr. George Vázquez Work Phone: 6(697)787-736145 [place] [address] 04-11-2023 13:02-0400 SaO2% (BldA) [Mass fraction] 96 % Dr. George Vázquez Work Phone: 2(682)266-277745 [place] [address] 04-11-2023 13:02-0400 Systolic blood pressure 99 mm[Hg] Dr. George Vázquez Work Phone: 8(874)747-761245 [place] [address] 04-11-2023 09:20-0400 Body mass index (BMI) [Ratio] 26.9 kg/m2 Dr. George Vázquez Work Phone: 3(085)699-701545 [place] [address] 04-11-2023 09:20-0400 Body weight 78.[address] George Vázquez Work Phone: 9(223)787-134045 [place] [address] 04-11-2023 09:20-0400 Diastolic blood pressure 57 mm[Hg] Dr. George Vázquez Work Phone: 2(817)965-221445 [place] [address] 04-11-2023 09:20-0400 Heart rate 82 /min Dr. George Vázquez Work Phone: 6(573)776-018745 [place] [address] 04-11-2023 09:20-0400 Respiratory rate 18 /min Dr. George Vázquez Work Phone: 7(511)514-015945 [place] [address] 04-11-2023 09:20-0400 Systolic blood pressure 129 mm[Hg] Dr. George Vázquez Work Phone: 4(347)539-783045 [place] [address] 03-17-2023 17:08-0400 Diastolic blood pressure 83 mm[Hg] Dr. George Vázquez Work Phone: 3(729)775-789645 [place] [address] 03-17-2023 17:08-0400 Heart rate 76 /min Dr. George Vázquez Work Phone: 6(655)797-284945 [place] [address] 03-17-2023 17:08-0400 Respiratory rate 14 /min Dr. George Vázquez Work Phone: 1(747)550-443845 [place] [address] 03-17-2023 17:08-0400 SaO2% (BldA) [Mass fraction] 96 % Dr. George Vázquez Work Phone: 0(648)179-186045 [place] [address] 03-17-2023 17:08-0400 Systolic blood pressure 138 mm[Hg] Dr. George Vázquez Work Phone: 2(139)499-485945 [place] [address] 03-17-2023 15:33-0400 Body height 170.[address] George Vázquez Work Phone: 3(700)660-098145 [place] [address] 03-17-2023 15:33-0400 Body temperature 98 [degF] Dr. George Vázquez Work Phone: 9(137)199-720945 [place] [address] 03-17-2023 14:51-0400 Body mass index (BMI) [Ratio] 27.6 kg/m2 Dr. George Vázquez Work Phone: 8(172)177-434645 [place] [address] 03-17-2023 14:51-0400 Body temperature 97.6 [degF] Dr. George Vázquez Work Phone: 8(709)974-016845 [place] [address] 03-17-2023 14:51-0400 Body weight 79.[address] George Vázquez Work Phone: 2(820)932-623445 [place] [address] 03-17-2023 14:51-0400 Diastolic blood pressure 93 mm[Hg] Dr. Goerge Vázquez Work Phone: 4(135)954-814345 [place] [address] 03-17-2023 14:51-0400 Heart rate 108 /min Dr. George Vázquez Work Phone: 6(021)370-465345 [place] [address] 03-17-2023 14:51-0400 Respiratory rate 18 /min Dr. George Vázquez Work Phone: 7(761)068-717645 [place] [address] 03-17-2023 14:51-0400 SaO2% (BldA) [Mass fraction] 95 % Dr. George Vázquez Work Phone: [facility] 03-17-2023 14:51-0400 Systolic blood pressure 137 mm[Hg] Dr. George Vázquez Work Phone: [facility] 02-03-2023 08:24-0400 Body height 170.[address] George Vázquez Work Phone: [facility] 02-03-2023 08:24-0400 Body mass index (BMI) [Ratio] 27.3 kg/m2 Dr. George Vázquez Work Phone: [facility] 02-03-2023 08:24-0400 Body temperature 97.6 [degF] Dr. George Vázquez Work Phone: [facility] 02-03-2023 08:24-0400 Body weight 79.[address] George Vázquez Work Phone: [facility] 02-03-2023 08:24-0400 Diastolic blood pressure 69 mm[Hg] Dr. George Vázquez Work Phone: [facility] 02-03-2023 08:24-0400 Heart rate 96 /min Dr. George Vázquez Work Phone: [facility] 02-03-2023 08:24-0400 Respiratory rate 16 /min Dr. George Vázquez Work Phone: [facility] 02-03-2023 08:24-0400 SaO2% (BldA) [Mass fraction] 95 % Dr. George Vázquez Work Phone: [facility] 02-03-2023 08:24-0400 Systolic blood pressure 121 mm[Hg] Dr. George Vázquez Work Phone: [facility] 01-18-2023 15:55-0400 Diastolic blood pressure 95 mm[Hg] George Vázquez MD Work Phone: 01-18-2023 15:55-0400 Heart rate 81 /min George Vázquez MD Work Phone: 01-18-2023 15:55-0400 Systolic blood pressure 162 mm[Hg] George Vázquez MD Work Phone: 01-18-2023 15:45-0400 Body weight 81.65 kg George Vázquez MD Work Phone: 01-18-2023 15:45-0400 Respiratory rate 16 /min George Vázquez MD Work Phone: 01-18-2023 15:45-0400 SaO2% (BldA) [Mass fraction] 95 % George Vázquez MD Work Phone: 01-13-2023 14:44-0400 Body mass index (BMI) [Ratio] 28 kg/m2 Dr. George Vázquez Work Phone: [facility] 01-13-2023 14:44-0400 Body weight 81.[address] George Vázquez Work Phone: [facility] 01-13-2023 14:44-0400 Diastolic blood pressure 89 mm[Hg] Dr. George Vázquez Work Phone: [facility] 01-13-2023 14:44-0400 Heart rate 88 /min Dr. George Vázquez Work Phone: [facility] 01-13-2023 14:44-0400 SaO2% (BldA) [Mass fraction] 94 % Dr. George Vázquez Work Phone: [facility] 01-13-2023 14:44-0400 Systolic blood pressure 136 mm[Hg] Dr. George Vázquez Work Phone: [facility] 12-28-2022 08:45-0500 Body temperature 98.5 [degF] Dr. George Vázquez Work Phone: [facility] 12-28-2022 08:45-0500 Diastolic blood pressure 85 mm[Hg] Dr. George Vázquez Work Phone: 9(954)162-378445 [place] [address] 12-28-2022 08:45-0500 Heart rate 87 /min Dr. George Vázquez Work Phone: 0(841)205-244045 [place] [address] 12-28-2022 08:45-0500 Respiratory rate 16 /min Dr. George Vázquez Work Phone: 4(095)624-375645 [place] [address] 12-28-2022 08:45-0500 SaO2% (BldA) [Mass fraction] 95 % Dr. George Vázquez Work Phone: 4(606)222-090445 [place] [address] 12-28-2022 08:45-0500 Systolic blood pressure 131 mm[Hg] Dr. George Vázquez Work Phone: 4(372)647-561345 [place] [address] 12-28-2022 07:05-0500 Body mass index (BMI) [Ratio] 27.7 kg/m2 Dr. George Vázquez Work Phone: 5(188)685-204145 [place] [address] 12-28-2022 07:05-0500 Body weight 80.[address] George Vázquez Work Phone: 9(505)099-898845 [place] [address] 12-22-2022 15:01-0500 Body mass index (BMI) [Ratio] 26.9 kg/m2 Dr. George Vázquez Work Phone: 8(298)739-844945 [place] [address] 12-22-2022 15:01-0500 Body weight 78.[address] George Vázquez Work Phone: 4(708)174-247945 [place] [address] 12-22-2022 15:01-0500 Diastolic blood pressure 60 mm[Hg] Dr. George Vázquez Work Phone: 3(030)095-509445 [place] [address] 12-22-2022 15:01-0500 Heart rate 88 /min Dr. George Vázquez Work Phone: 4(920)122-772345 [place] [address] 12-22-2022 15:01-0500 Respiratory rate 16 /min Dr. George Vázquez Work Phone: 4(077)836-366845 [place] [address] 12-22-2022 15:01-0500 Systolic blood pressure 102 mm[Hg] Dr. George Vázquez Work Phone: 5(025)793-888445 [place] [address] 12-02-2022 16:45-0500 Body temperature 97.8 [degF] Dr. George Vázquez Work Phone: 1(977)670-923645 [place] [address] 12-02-2022 16:45-0500 Diastolic blood pressure 81 mm[Hg] Dr. George Vázquez Work Phone: 3(738)841-581345 [place] [address] 12-02-2022 16:45-0500 Heart rate 88 /min Dr. George Vázquez Work Phone: 0(416)368-877845 [place] [address] 12-02-2022 16:45-0500 Respiratory rate 16 /min Dr. George Vázquez Work Phone: 1(329)293-547045 [place] [address] 12-02-2022 16:45-0500 SaO2% (BldA) [Mass fraction] 91 % Dr. George Vázquez Work Phone: 3(725)267-006745 [place] [address] 12-02-2022 16:45-0500 Systolic blood pressure 114 mm[Hg] Dr. George Vázquez Work Phone: 7(635)453-813945 [place] [address] 12-02-2022 15:44-0500 Inhaled oxygen flow rate 2 L/min Dr. George Vázquez Work Phone: 9(868)285-027845 [place] [address] 12-02-2022 10:41-0500 Body height 170.[address] George Vázquez Work Phone: 8(851)180-759445 [place] [address] 12-02-2022 10:41-0500 Body mass index (BMI) [Ratio] 27.2 kg/m2 Dr. George Vázquez Work Phone: 9(722)973-199645 [place] [address] 12-02-2022 10:41-0500 Body weight [address] George Vázquez Work Phone: 4(257)874-855345 [place] [address] 12-01-2022 07:56-0500 Body mass index (BMI) [Ratio] 27.7 kg/m2 Dr. George Vázquez Work Phone: [facility] 12-01-2022 07:56-0500 Body temperature 97.4 [degF] Dr. George Vázquez Work Phone: [facility] 12-01-2022 07:56-0500 Body weight 80.[address] George Vázquez Work Phone: 2(554)100-811457 [place] [address] 12-01-2022 07:56-0500 Diastolic blood pressure 72 mm[Hg] Dr. George Vázquez Work Phone: 4(878)566-751357 [place] [address] 12-01-2022 07:56-0500 Heart rate 83 /min Dr. George Vázquez Work Phone: 7(001)172-731557 [place] [address] 12-01-2022 07:56-0500 Respiratory rate 17 /min Dr. George Vázquez Work Phone: 6(589)463-518845 [place] [address] 12-01-2022 07:56-0500 SaO2% (BldA) [Mass fraction] 93 % Dr. George Vázquez Work Phone: 3(869)383-704357 [place] [address] 12-01-2022 07:56-0500 Systolic blood pressure 127 mm[Hg] Dr. George Vázquez Work Phone: [facility] 11-22-2022 14:20-0500 Body temperature 98.91 [degF] Krislyn Aberegg PA Work Phone: 11-22-2022 14:20-0500 Diastolic blood pressure 76 mm[Hg] Krislyn Aberegg PA Work Phone: 11-22-2022 14:20-0500 Heart rate 94 /min Krislyn Aberegg PA Work Phone: 11-22-2022 14:20-0500 Respiratory rate 18 /min Krislyn Aberegg PA Work Phone: 11-22-2022 14:20-0500 SaO2% (BldA) [Mass fraction] 96 % Krislyn Aberegg PA Work Phone: 11-22-2022 14:20-0500 Systolic blood pressure 134 mm[Hg] Kelly DURAN Work Phone: 11-15-2022 08:59-0500 Body mass index (BMI) [Ratio] 26.6 kg/m2 Dr. George Vázquez Work Phone: 8(043)819-124357 [place] [address] 11-15-2022 08:59-0500 Body temperature 97.8 [degF] Dr. George Vázquez Work Phone: 9(204)838-635345 [place] [address] 11-15-2022 08:59-0500 Body weight 77.[address] George Vázquez Work Phone: 0(866)203-063345 [place] [address] 11-15-2022 08:59-0500 Diastolic blood pressure 89 mm[Hg] Dr. George Vázquez Work Phone: 8(987)809-058257 [place] [address] 11-15-2022 08:59-0500 Heart rate 84 /min Dr. George Vázquez Work Phone: 2(583)518-772945 [place] [address] 11-15-2022 08:59-0500 Respiratory rate 18 /min Dr. George Vázquez Work Phone: 7(596)146-921845 [place] [address] 11-15-2022 08:59-0500 SaO2% (BldA) [Mass fraction] 94 % Dr. George Vázquez Work Phone: 8(278)273-187457 [place] [address] 11-15-2022 08:59-0500 Systolic blood pressure 126 mm[Hg] Dr. George Vázquez Work Phone: 0(200)418-720345 [place] [address] 10-30-2022 11:22-0500 Heart rate 81 /min Dr. George Vázquez Work Phone: 9(395)446-172845 [place] [address] 10-30-2022 11:22-0500 Respiratory rate 19 /min Dr. George Vázquez Work Phone: 0(660)851-613657 [place] [address] 10-30-2022 10:00-0500 Body temperature 97.8 [degF] Dr. George Vázquez Work Phone: 1(150)285-403957 [place] [address] 10-30-2022 10:00-0500 Diastolic blood pressure 72 mm[Hg] Dr. George Vázquez Work Phone: 5(797)617-870145 [place] [address] 10-30-2022 10:00-0500 Inhaled oxygen flow rate 2 L/min Dr. George Vázquez Work Phone: 5(937)644-231345 [place] [address] 10-30-2022 10:00-0500 SaO2% (BldA) [Mass fraction] 93 % Dr. George Vázquez Work Phone: 2(317)826-021845 [place] [address] 10-30-2022 10:00-0500 Systolic blood pressure 119 mm[Hg] Dr. George Vázquez Work Phone: 3(768)319-007345 [place] [address] 10-30-2022 06:00-0500 Body weight 78.[address] George Vázquez Work Phone: 5(395)962-100645 [place] [address] 10-28-2022 05:01-0500 Body mass index (BMI) [Ratio] 26.6 kg/m2 Dr. George Vázquez Work Phone: 7(756)002-686345 [place] [address] 10-28-2022 03:44-0500 Body temperature 98.6 [degF] Dr. George Vázquez Work Phone: 2(929)365-820257 [place] [address] Work Phone: 10-28-2022 03:44-0500 Diastolic blood pressure 99 mm[Hg] Dr. George Vázquez Work Phone: [facility] Work Phone: 10-28-2022 03:44-0500 Heart rate 120 /min Dr. George Vázquez Work Phone: [facility] Work Phone: 10-28-2022 03:44-0500 Inhaled oxygen flow rate 2 L/min Dr. George Vázquez Work Phone: [facility] Work Phone: 10-28-2022 03:44-0500 Respiratory rate 25 /min Dr. George Vázquez Work Phone: [facility] Work Phone: 10-28-2022 03:44-0500 SaO2% (BldA) [Mass fraction] 95 % Dr. George Vázquez Work Phone: [facility] Work Phone: 10-28-2022 03:44-0500 Systolic blood pressure 138 mm[Hg] Dr. George Vázquez Work Phone: [facility] Work Phone: 10-28-2022 02:41-0500 Body height 170.[address] George Vázquez Work Phone: [facility] Work Phone: 10-28-2022 02:41-0500 Body mass index (BMI) [Ratio] 26.4 kg/m2 Dr. George Vázquez Work Phone: [facility] Work Phone: 10-28-2022 02:41-0500 Body weight 76.[address] George Vázquez Work Phone: [facility] Work Phone: 10-25-2022 13:03-0500 Body mass index (BMI) [Ratio] 27.2 kg/m2 Dr. George Vázquez Work Phone: [facility] 10-25-2022 13:03-0500 Body weight 78.[address] George Vázquez Work Phone: [facility] 10-25-2022 13:03-0500 Diastolic blood pressure 77 mm[Hg] Dr. George Vázquez Work Phone: [facility] 10-25-2022 13:03-0500 Heart rate 90 /min Dr. George Vázquez Work Phone: [facility] 10-25-2022 13:03-0500 SaO2% (BldA) [Mass fraction] 93 % Dr. George Vázquez Work Phone: [facility] 10-25-2022 13:03-0500 Systolic blood pressure 119 mm[Hg] Dr. George Vázquez Work Phone: [facility] 08-04-2022 12:38-0400 Body height 170.[address] George Vázquez Work Phone: [facility] Work Phone: 08-04-2022 12:30-0400 Body mass index (BMI) [Ratio] 26 kg/m2 Dr. George Vázquez Work Phone: [facility] Work Phone: 08-04-2022 12:30-0400 Body temperature 97.9 [degF] Dr. George Vázquez Work Phone: [facility] Work Phone: 08-04-2022 12:30-0400 Body weight 75.[address] George Vázquez Work Phone: [facility] Work Phone: 08-04-2022 12:30-0400 Diastolic blood pressure 61 mm[Hg] Dr. George Vázquez Work Phone: [facility] Work Phone: 08-04-2022 12:30-0400 Heart rate 86 /min Dr. George Vázquez Work Phone: [facility] Work Phone: 08-04-2022 12:30-0400 Respiratory rate 16 /min Dr. George Vázquez Work Phone: [facility] Work Phone: 08-04-2022 12:30-0400 SaO2% (BldA) [Mass fraction] 90 % Dr. George Vázquez Work Phone: [facility] Work Phone: 08-04-2022 12:30-0400 Systolic blood pressure 94 mm[Hg] Dr. George Vázquez Work Phone: [facility] Work Phone: 07-28-2022 15:57-0400 Body temperature 98.49 [degF] George Vázquez MD Work Phone: 07-28-2022 15:57-0400 Body weight 76.66 kg George Vázquez MD Work Phone: 07-28-2022 15:57-0400 Diastolic blood pressure 68 mm[Hg] George Vázquez MD Work Phone: 07-28-2022 15:57-0400 Heart rate 96 /min George Vázquez MD Work Phone: 07-28-2022 15:57-0400 Respiratory rate 20 /min George Vázquez MD Work Phone: 07-28-2022 15:57-0400 SaO2% (BldA) [Mass fraction] 93 % George Vázquez MD Work Phone: 07-28-2022 15:57-0400 Systolic blood pressure 124 mm[Hg] George Vázquez MD Work Phone: 07-15-2022 09:04-0400 Body temperature 98.29 [degF] Michelle Athy PA-C Work Phone: 07-15-2022 09:04-0400 Body weight 80.38 kg Michelle Athy PA-C Work Phone: 07-15-2022 09:04-0400 Diastolic blood pressure 80 mm[Hg] Michelle Athy PA-C Work Phone: 07-15-2022 09:04-0400 Heart rate 106 /min Michelle Athy PA-C Work Phone: 07-15-2022 09:04-0400 Respiratory rate 22 /min Michelle Gormanzeke PA-C Work Phone: 07-15-2022 09:04-0400 SaO2% (BldA) [Mass fraction] 92 % Michelle Gormany PA-C Work Phone: 07-15-2022 09:04-0400 Systolic blood pressure 132 mm[Hg] Michelle Gormanzeke PA-C Work Phone: 07-13-2022 18:44-0400 Diastolic blood pressure 67 mm[Hg] Dr. George Vázquez Work Phone: [facility] Work Phone: 07-13-2022 18:44-0400 Heart rate 82 /min Dr. George Vázquez Work Phone: [facility] Work Phone: 07-13-2022 18:44-0400 Respiratory rate 16 /min Dr. George Vázquez Work Phone: [facility] Work Phone: 07-13-2022 18:44-0400 SaO2% (BldA) [Mass fraction] 95 % Dr. George Vázquez Work Phone: [facility] Work Phone: 07-13-2022 18:44-0400 Systolic blood pressure 147 mm[Hg] Dr. George Vázquez Work Phone: [facility] Work Phone: 07-13-2022 16:46-0400 Body height 170.[address] George Vázquez Work Phone: [facility] Work Phone: 07-13-2022 16:46-0400 Body mass index (BMI) [Ratio] 26.9 kg/m2 Dr. George Vázquez Work Phone: [facility] Work Phone: 07-13-2022 16:46-0400 Body temperature 97.6 [degF] Dr. George Vázquez Work Phone: [facility] Work Phone: 07-13-2022 16:46-0400 Body weight 78.[address] George Vázquez Work Phone: [facility] Work Phone: 07-05-2022 11:02-0400 Body temperature 98.01 [degF] Edson Praisler-Wood TECHNICAL SUPPORT SPECIALIST.GROUP HOME MANAGER Work Phone: 07-05-2022 11:02-0400 Body weight 77.93 kg Edson Praisler-Wood TECHNICAL SUPPORT SPECIALIST.GROUP HOME MANAGER Work Phone: 07-05-2022 11:02-0400 Diastolic blood pressure 78 mm[Hg] Edson Praisler-Wood TECHNICAL SUPPORT SPECIALIST.GROUP HOME MANAGER Work Phone: 07-05-2022 11:02-0400 Heart rate 83 /min Edson Praisler-Wood TECHNICAL SUPPORT SPECIALIST.GROUP HOME MANAGER Work Phone: 07-05-2022 11:02-0400 Respiratory rate 18 /min Edson Praisler-Wood TECHNICAL SUPPORT SPECIALIST.GROUP HOME MANAGER Work Phone: 07-05-2022 11:02-0400 SaO2% (BldA) [Mass fraction] 97 % Edson Praisler-Wood TECHNICAL SUPPORT SPECIALIST.GROUP HOME MANAGER Work Phone: 07-05-2022 11:02-0400 Systolic blood pressure 124 mm[Hg] Edson Praisler-Wood TECHNICAL SUPPORT SPECIALIST.GROUP HOME MANAGER Work Phone: 07-04-2022 10:45-0400 SaO2% (BldA) [Mass fraction] 96 % Sharon Zamora PA-C Work Phone: 07-04-2022 10:35-0400 Body temperature 98.1 [degF] Sharon Zamora PA-C Work Phone: 07-04-2022 10:35-0400 Body weight 78.2 kg Sharonsondra Patinoaugh PA-C Work Phone: 07-04-2022 10:35-0400 Diastolic blood pressure 82 mm[Hg] Sharonsondra Patinoaugh PA-C Work Phone: 07-04-2022 10:35-0400 Heart rate 95 /min Sharonsondra Patinoaugh PA-C Work Phone: 07-04-2022 10:35-0400 Respiratory rate 18 /min Sharonsondra Patinoaugh PA-C Work Phone: 07-04-2022 10:35-0400 Systolic blood pressure 120 mm[Hg] Sharonsondra Patinoaugh PA-C Work Phone: 05-25-2022 08:36-0400 Body height 170.[address] George Vázquez Work Phone: [facility] Work Phone: 05-25-2022 08:36-0400 Body mass index (BMI) [Ratio] 27.3 kg/m2 Dr. George Vázquez Work Phone: [facility] Work Phone: 05-25-2022 08:36-0400 Body temperature 97.9 [degF] Dr. George Vázquez Work Phone: [facility] Work Phone: 05-25-2022 08:36-0400 Body weight 79.[address] George Vázquez Work Phone: [facility] Work Phone: 05-25-2022 08:36-0400 Diastolic blood pressure 80 mm[Hg] Dr. George Vázquez Work Phone: [facility] Work Phone: 05-25-2022 08:36-0400 Heart rate 95 /min Dr. George Vázquez Work Phone: [facility] Work Phone: 05-25-2022 08:36-0400 Respiratory rate 17 /min Dr. George Vázquez Work Phone: [facility] Work Phone: 05-25-2022 08:36-0400 SaO2% (BldA) [Mass fraction] 94 % Dr. George Vázquez Work Phone: [facility] Work Phone: 05-25-2022 08:36-0400 Systolic blood pressure 116 mm[Hg] Dr. George Vázquez Work Phone: [facility] Work Phone: 02-27-2022 00:19-0400 Body weight 82.[address] George Vázquez Work Phone: [facility] Work Phone: 02-14-2022 15:06-0400 Body mass index (BMI) [Ratio] 29.2 kg/m2 Dr. George Vázquez Work Phone: [facility] Work Phone: 02-14-2022 15:06-0400 Body weight 84.[address] George Vázquez Work Phone: [facility] Work Phone: 02-14-2022 15:06-0400 Diastolic blood pressure 64 mm[Hg] Dr. George Vázquez Work Phone: [facility] Work Phone: 02-14-2022 15:06-0400 Heart rate 85 /min Dr. George Vázquez Work Phone: [facility] Work Phone: 02-14-2022 15:06-0400 Respiratory rate 18 /min Dr. George Vázquez Work Phone: [facility] Work Phone: 02-14-2022 15:06-0400 Systolic blood pressure 103 mm[Hg] Dr. George Vázquez Work Phone: [facility] Work Phone: 02-14-2022 15:06-0400 Body height 170.[address] George Vázquez Work Phone: [facility] Work Phone: 02-14-2022 15:06-0400 Body mass index (BMI) [Ratio] 29.2 kg/m2 Dr. George Vázquez Work Phone: [facility] Work Phone: 02-14-2022 15:06-0400 Body weight 84.[address] George Vázquez Work Phone: [facility] Work Phone: 02-14-2022 15:06-0400 Diastolic blood pressure 64 mm[Hg] Dr. George Vázquez Work Phone: [facility] Work Phone: 02-14-2022 15:06-0400 Heart rate 85 /min Dr. George Vázquez Work Phone: [facility] Work Phone: 02-14-2022 15:06-0400 Respiratory rate 18 /min Dr. George Vázquez Work Phone: [facility] Work Phone: 02-14-2022 15:06-0400 Systolic blood pressure 103 mm[Hg] Dr. George Vázquez Work Phone: [facility] Work Phone: 02-14-2022 13:29-0400 Body weight 82.[address] George Vázquez Work Phone: [facility] Work Phone: 02-14-2022 13:29-0400 Body weight 82.[address] George Vázquez Work Phone: [facility] Work Phone: 02-01-2022 13:21-0400 Body mass index (BMI) [Ratio] 28.6 kg/m2 Dr. George Vázquez Work Phone: [facility] Work Phone: 02-01-2022 13:21-0400 Body temperature 98 [degF] Dr. George Vázquez Work Phone: [facility] Work Phone: 02-01-2022 13:21-0400 Body weight [address] George Vázquez Work Phone: [facility] Work Phone: 02-01-2022 13:21-0400 Diastolic blood pressure 69 mm[Hg] Dr. George Vázquez Work Phone: [facility] Work Phone: 02-01-2022 13:21-0400 Heart rate 97 /min Dr. George Vázquez Work Phone: [facility] Work Phone: 02-01-2022 13:21-0400 Respiratory rate 18 /min Dr. George Vázquez Work Phone: [facility] Work Phone: 02-01-2022 13:21-0400 SaO2% (BldA) [Mass fraction] 93 % Dr. George Vázquez Work Phone: [facility] Work Phone: 02-01-2022 13:21-0400 Systolic blood pressure 103 mm[Hg] Dr. George Vázquez Work Phone: [facility] Work Phone: 01-17-2022 10:26-0400 Body height 170.[address] George Vázquez Work Phone: [facility] Work Phone: 01-17-2022 10:26-0400 Body weight 82.[address] George Vázquez Work Phone: [facility] Work Phone: 12-22-2021 09:26-0500 Body weight 83.[address] George Vázquez Work Phone: [facility] Work Phone: 11-22-2021 13:45-0500 Body mass index (BMI) [Ratio] 28.1 kg/m2 Dr. George Vázquez Work Phone: [facility] Work Phone: 11-22-2021 13:45-0500 Body weight 81.[address] George Vázquez Work Phone: [facility] Work Phone: 11-22-2021 13:45-0500 Diastolic blood pressure 60 mm[Hg] Dr. George Vázquez Work Phone: [facility] Work Phone: 11-22-2021 13:45-0500 Heart rate 72 /min Dr. George Vázquez Work Phone: [facility] Work Phone: 11-22-2021 13:45-0500 SaO2% (BldA) [Mass fraction] 94 % Dr. George Vázquez Work Phone: [facility] Work Phone: 11-22-2021 13:45-0500 Systolic blood pressure 106 mm[Hg] Dr. George Vázquez Work Phone: [facility] Work Phone: 11-15-2021 13:52-0500 Diastolic blood pressure 64 mm[Hg] Dr. George Vázquez Work Phone: [facility] Work Phone: 11-15-2021 13:52-0500 Heart rate 76 /min Dr. George Vázquez Work Phone: [facility] Work Phone: 11-15-2021 13:52-0500 Systolic blood pressure 113 mm[Hg] Dr. George Vázquez Work Phone: [facility] Work Phone: 10-04-2021 14:30-0500 Body weight 81.[address] George Vázquez Work Phone: [facility] Work Phone: 10-04-2021 14:30-0500 Diastolic blood pressure 78 mm[Hg] Dr. George Vázquez Work Phone: [facility] Work Phone: 10-04-2021 14:30-0500 Heart rate 84 /min Dr. George Vázquez Work Phone: [facility] Work Phone: 10-04-2021 14:30-0500 Respiratory rate 16 /min Dr. George Vázquez Work Phone: [facility] Work Phone: 10-04-2021 14:30-0500 Systolic blood pressure 108 mm[Hg] Dr. George Vázquez Work Phone: [facility] Work Phone: 09-28-2021 23:31-0500 Body weight 82.[address] George Vázquez Work Phone: [facility] Work Phone: 10-05-2020 14:25-0500 Body mass index (BMI) [Ratio] 28.6 kg/m2 Dr. George Vázquez Work Phone: [facility] Work Phone: Encounters Encounter Date Encounter Type Care Provider Facility Start: 09-01-2025 End: 09-01-2025 ambulatory GEORGE VÁZQUEZ Facility:[facility] Start: 08-29-2025 ambulatory George Vázquez Facili ty:[facility] Start: 08-25-2025 ambulatory Michael Narayan Facility :[facility] Start: 08-18-2025 End: 08-18-2025 ambulatory GEORGE VÁZQUEZ Facility:[facility] Start: 08-15-2025 End: 08-15-2025 ambulatory GEORGE VÁZQUEZ Facility:[facility] Start: 07-21-2025 End: 07-21-[address] Michael Narayan DO -[facility] Work Phone: Start: 07-21-2025 End: 07-21-[address] George Vázquez MD Work Phone: -[facility] Start: 07-15-2025 ambulatory LOW BRYANT V Facility :[facility] Start: 07-15-2025 End: 07-15-2025 Subsequent hospital visit by physician Mri Radio [facility] (I-Stat/1.5t) Work Phone: Radiology Comment on above: Encounter for screen ing for other musculoskeletal disorder [Z13.828] Start: 07-08-2025 End: 07-08-2025 Patient encounter procedure Low Bryant DO Work Phone: [facility] [place] Comment on above: Acute right hip pain ; Trochanteric bursitis of right hip; Unilateral primary osteoarthritis, right hip Start: 07-08-2025 End: 07-08-2025 ambulatory LOW BRYANT V Facility:[facility] Start: 07-07-2025 End: 07-07-2025 Office outpatient visit 15 minutes Blanca Tilley APRN.CNP Work Phone: [facility] [place] Comment on above: Acute right hip pain (Primary Dx); Primary osteoarthritis of right hip; Calcific tendinitis of right hip Start: 07-07-2025 End: 07-07-2025 ambulatory GEORGE VÁZQUEZ Facility:[facility] Start: 07-03-2025 End: 07-03-2025 Subsequent hospital visit by physician Xr [facility] [place] Work Phone: Radiology Comment on above: Pain of right hip [M 25.551] Start: 07-03-2025 End: 07-03-2025 Office outpatient visit 15 minutes Prateek Matos APRN.CNP Work Phone: [facility] [place] Comment on above: Pain of right hip (P rimary Dx) Start: 07-03-2025 End: 07-03-2025 ambulatory PRATEEK MATOS Facility:[facility] Start: 06-14-2025 End: 06-14-[address] George Vázquez MD Work Phone: -[facility] Start: 06-14-2025 End: 06-14-2025 Patient encounter procedure Radha Roberts PARKING WORKER-C -[facility] Work Phone: Start: 06-14-2025 End: 06-14-2025 ambulatory Radha Roberts NP Facility:[facility] Start: 05-28-2025 End: 05-28-2025 ambulatory GEORGE VÁZQUEZ Facility:[facility] Start: 05-28-2025 End: 05-28-2025 Patient encounter procedure George Vázquez MD Work Phone: [facility] [place] Comment on above: Medicare annual well ness visit, subsequent (Primary Dx); 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; Hyperlipidemia, unspecified hyperlipidemia [...] 05-05-2025 End: 05-05-2025 Patient encounter procedure Daniel Saeed PARKING WORKER-C -[facility] Work Phone: Start: 05-05-2025 End: 05-05-[address] George Vázquez MD Work Phone: -[place] [facility] Start: 05-03-2025 End: 05-03-[address] George Vázquez MD Work Phone: -Laboratory Start: 05-03-2025 End: 05-03-2025 Patient encounter procedure Bhupendra Demiter PA -Laboratory Work Phone: Start: 05-03-2025 End: 05-03-2025 ambulatory Bhupendra Demiter Facility:[facility] Start: 02-14-2025 End: 02-14-[address] Neptali Orellana MD -Laboratory Work Phone: Start: 02-14-2025 End: 02-14-2025 ambulatory George Vázquez Facility:[facility] Start: 02-05-2025 Non-patient / Non-visit Dr. Salvador miranda MD -[facility] Start: 02-05-2025 End: 02-05-[address] George Vázquez MD Work Phone: [facility] Work Phone: Start: 02-05-2025 End: 02-05-2025 Patient encounter procedure Bhupendra Demiter PA -Cardiovascular Services Work Phone: Start: 02-05-2025 End: 02-05-2025 ambulatory Bhupendra Demiter Facility:[facility] Start: 01-30-2025 End: 01-30-2025 Refill George Vázquez MD Work Phone: [facility] [place] Comment on above: Med Change Request Start: 01-20-2025 End: 01-20-2025 Patient encounter procedure Bhupendra Demiter PA -[place] [facility] Work Phone: Start: 01-20-2025 End: 01-20-2025 ambulatory Bhupendra Demiter Facility:[facility] Start: 01-10-2025 End: 01-10-2025 Follow-up encounter George Vázquez MD Work Phone: [facility] [place] Start: 01-08-2025 End: 01-08-2025 ambulatory GEORGE VÁZQUEZ Facility:[facility] Start: 01-08-2025 End: 01-08-2025 Office outpatient visit 25 minutes George Vázquez MD Work Phone: [facility] [place] Comment on above: 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 Carrillo Malave MD -[facility] Work Phone: Start: 01-08-2025 End: 01-08-[address] George Vázquez MD Work Phone: [facility] Work Phone: Start: 01-08-2025 End: 01-08-2025 ambulatory Carrillo Malave Facility:[facility] Start: 12-09-2024 End: 12-09-2024 ambulatory Venita Quezada MA [facility] Start: 12-09-2024 End: 12-09-2024 Patient encounter procedure Venita Quezada MA [facility] Comment on above: Population Health Na vigation Outreach ([place] Start: 11-27-2024 End: 11-27-[address] Neptali Orellana MD -[facility] Work Phone: Start: 11-26-2024 End: 11-27-2024 [facility] Start: 11-26-2024 Non-patient / Non-visit Dr. Norah Malave MD -[facility] Work Phone: Start: 11-26-2024 End: 11-26-[address] Carrillo Malave MD -Pulmonary Services/Neurology Work Phone: Start: 11-26-2024 End: 11-26-2024 ambulatory [facility] Facility:[facility] Start: 11-11-2024 ambulatory Carrillo Malave Facility :[facility] Start: 11-11-2024 Non-patient / Non-visit Dr. Tevin cruz DO -[facility] Start: 11-06-2024 End: 11-06-2024 Patient encounter procedure Radha Roberts PARKING WORKER-C -Pulmonary Services/Neurology Work Phone: Start: 11-05-2024 End: 11-06-2024 ambulatory Carrillo Malave Facility:[facility] Start: 11-05-2024 End: 11-05-[address] Carrillo Malave MD -[place] [facility] Work Phone: Start: 11-05-2024 End: 11-05-2024 Patient encounter procedure Radha Roberts PARKING WORKER-C -Pulmonary Services/Neurology Work Phone: Start: 11-05-2024 End: 11-05-2024 ambulatory Radha Roberts PARKING WORKER Facility:[facility] Start: 10-28-2024 Non-patient / Non-visit [facility]. Saul [facility] Work Phone: Start: 10-28-2024 ambulatory Tomy Hanks Facility:[facility] Start: 10-28-2024 Non-patient / Non-visit Dr. Mallorie LOPEZ -[facility] Start: 10-27-2024 End: 10-28-2024 Evaluation and management of inpatient Dr. Vicente Andrews DO [facility] Work Phone: Start: 10-27-2024 End: 10-28-2024 ambulatory Vicente Andrews Facility:[facility] Start: 10-27-2024 Non-patient / Non-visit Dr. Saul [facility] Work Phone: Start: 09-24-2024 End: 09-24-2024 ambulatory Darlyn Moreno RN [employer] Start: 09-24-2024 End: 09-24-2024 Follow-up encounter Darlyn Moreno RN [employer] Comment on above: CDM (CHRONIC DISEASE MANAGEMENT OON ED Follow up Call/) Start: 09-20-2024 End: 09-23-2024 ambulatory Darlyn Moreno RN [employer] Start: 09-20-2024 End: 09-23-2024 Follow-up encounter Darlyn Moreno RN [employer] Comment on above: CDM (Chronic Disease Management OON ED Follow up Call/) Start: 09-18-2024 End: 09-18-2024 Telephone encounter George Vázquez MD Work Phone: [facility] [place] Comment on above: Consult Start: 09-17-2024 End: 09-17-2024 Emergency department patient visit Dr. Francisco Murillo MD -Emergency Department Work Phone: Start: 09-17-2024 End: 09-18-2024 Refill Blanca Tilley APRNTiannaGROUP HOME MANAGER Work Phone: [facility] [place] Comment on above: Refill Request Start: 09-12-2024 End: 09-12-2024 Office outpatient visit 25 minutes George Vázquez MD Work Phone: [facility] [place] Comment on above: Dyspnea, unspecified type (Primary Dx); 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; COPD (chronic obstructive pulmonary disease) with chronic bronchitis (HCC); Sinus tachycardia Start: 09-12-2024 End: 09-12-2024 ambulatory GEORGE VÁZQUEZ Facility:[facility] Start: 09-09-2024 End: 09-12-2024 ambulatory Jayleen Carter PA-C Work Phone: Pulmonary Medicine Start: 09-04-2024 End: 09-04-2024 ambulatory GEORGE VÁZQUEZ Facility:[facility] Start: 09-04-2024 End: 09-04-2024 Office outpatient visit 25 minutes George Vázquez MD Work Phone: [facility] [place] Comment on above: COPD with exacerbati on (HCC) (Primary Dx); 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 Start: 09-04-2024 End: 09-04-2024 Telephone encounter George Vázquez MD Work Phone: [facility] [place] Comment on above: Patient Update Start: 08-30-2024 End: 08-30-2024 Subsequent hospital visit by physician Xr [facility] [place] Work Phone: Radiology Comment on above: Subacute cough [R05. 2] Start: 08-30-2024 End: 08-30-2024 Office outpatient visit 25 minutes Prateek Matos APRN.GROUP HOME MANAGER Work Phone: [facility] Comment on above: Subacute cough (Prim lakeshia Dx); COPD with exacerbation (HCC) Start: 08-26-2024 End: 08-26-2024 Telephone encounter Blanche Nevarez APRN.GROUP HOME MANAGER Work Phone: [facility] Comment on above: Medication Problem Start: 08-25-2024 End: 08-25-2024 Patient encounter procedure Blanche Nevarez APRN.GROUP HOME MANAGER Work Phone: [facility] Comment on above: Respiratory infectio n (Primary Dx); Thrush Start: 08-21-2024 End: 08-21-2024 ambulatory Darlyn Moreno RN [employer] Comment on above: CDM (Chronic Disease Management Routine Call/) Start: 08-12-2024 End: 08-12-2024 Patient encounter procedure Blanca Tilley APRN.GROUP HOME MANAGER Work Phone: Internal Medicine [place] Comment on above: Chest wall pain (Maricarmen roxanna Dx); Chronic bronchitis, unspecified chronic bronchitis type (HCC); Hyperlipidemia, unspecified hyperlipidemia type; Impaired glucose metabolism Start: 07-24-2024 End: 07-24-2024 ambulatory Darlyn Moreno RN [employer] Comment on above: CDM (Chronic Disease Management Routine Call/) Start: 07-22-2024 End: 07-26-2024 Refill Blanca Tilley APRN.GROUP HOME MANAGER Work Phone: Internal [facility] [place] Comment on above: Refill Request Start: 07-11-2024 End: 07-11-2024 ambulatory Hedy Sprague RN [employer] Comment on above: CDM (Telephonic Outr each) Start: 07-10-2024 End: 07-10-2024 ambulatory Hedy Sprague RN [employer] Comment on above: CDM (Telephonic Outr each) Start: 06-18-2024 End: 06-19-2024 ambulatory Darlyn Moreno construction crew memberLadle Repairer Management Comment on above: Community Monitoring Outreach Start: 06-13-2024 Refill George burdick MD Work Phone: [facility] [place] Comment on above: Refill Request Start: 05-27-2024 End: 05-27-2024 Patient encounter procedure George Vázquez MD Work Phone: [facility] [place] Comment on above: Medicare annual well ness visit, subsequent (Primary Dx); 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; Hyperlipidemia, unspecified hyperlipidemia type; Chronic bronchitis, unspecified chronic bronchitis type (HCC); Primary hypertension; Screening for depression; Encounter for screening examination for other mental health and behavioral disorders; Gastroesophageal reflux disease, unspecified whether esophagitis present; Achilles tendinitis of both lower extremities; Acute on chronic respiratory failure with hypoxia (HCC) Start: 05-22-2024 ambulatory Darlyn Champagne Staff ord construction crew memberLadle Repairer Management Comment on above: Community Monitoring Outreach Start: 05-15-2024 Refill Blanca yanez APRN.CNP Work Phone: [facility] [place] Comment on above: Refill Request Start: 04-25-2024 ambulatory Darlyn Champagne Staff ord construction crew memberLadle Repairer Management Comment on above: Community Monitoring Outreach Start: 02-29-2024 Refill George burdick MD Work Phone: [facility] [place] Comment on above: Refill Request Start: 01-23-2024 ambulatory Darlyn Champagne Staff ord construction crew memberLadle Repairer Management Comment on above: Community Monitoring Outreach Start: 12-08-2023 Non-patient / Non-visit Dr. Norma Vázquez Work Phone: [facility] Start: 12-08-2023 End: 12-08-[address] George Vázquez Work Phone: [facility] Work Phone: Start: 12-08-2023 End: 12-08-[address] George Vázquez Work Phone: [facility]-Cardiovascular Services Work Phone: Start: 12-06-2023 ambulatory Darlyn Corral ord construction crew memberLadle Repairer Management Comment on above: Community Monitoring Outreach Start: 11-23-2023 End: 11-23-[address] [facility] Work Phone: Start: 11-10-2023 End: 11-10-[address] George Vázquez Work Phone: [facility] Work Phone: Start: 10-18-2023 End: 10-18-2023 Subsequent hospital visit by physician Xr [facility] Work Phone: Radiology Comment on above: SOB (shortness of br eath) [R06.02] Start: 10-04-2023 Refill lBanca ma APRN.GROUP HOME MANAGER Work Phone: Internal Medicine [place] Comment on above: Refill Request Start: 10-02-2023 Orders Only Blanca ma TECHNICAL SUPPORT SPECIALIST.GROUP HOME MANAGER Work Phone: Internal [facility] Start: 09-29-2023 Refill George burdick MD Work Phone: Internal [facility] Comment on above: Refill Request Start: 09-07-2023 Refill George burdick MD Work Phone: Internal [facility] Comment on above: Refill Request Start: 08-24-2023 Refill George burdick MD Work Phone: Internal [facility] Comment on above: Refill Request Start: 08-17-2023 End: 08-17-[address] George Vázquez Work Phone: [facility] Work Phone: Start: 08-17-2023 End: 08-17-[address] George Vázquez Work Phone: [facility]-Pulmonary Services/Neurology Work Phone: Start: 08-11-2023 End: 08-11-[address] George Vázquez Work Phone: [facility] Work Phone: Start: 08-11-2023 End: 08-11-[address] George Vázquez Work Phone: [facility]-Laboratory, Specimen Work Phone: Start: 08-07-2023 End: 08-07-[address] George Vázquez Work Phone: [facility] Work Phone: Start: 08-07-2023 End: 08-07-2023 Patient encounter procedure Dr. George Vázquez Work Phone: [facility], [facility] Work Phone: Start: 08-07-2023 End: 08-07-[address] George Vázquez Work Phone: [facility] Work Phone: Start: 08-04-2023 End: 08-04-[address] George Vázquez Work Phone: [facility] Work Phone: Start: 07-28-2023 End: 07-28-[address] George Vázquez Work Phone: [facility] Work Phone: Start: 07-21-2023 End: 07-21-[address] George Vázquez [facility] Work Phone: Start: 07-21-2023 End: 07-21-[address] George Vázquez Work Phone: [facility] Work Phone: Start: 07-03-2023 Refill George burdick MD Work Phone: Internal Medicine [place] Comment on above: Refill Request Start: 06-20-2023 Refill George burdick MD Work Phone: Internal [facility] [place] Comment on above: Refill Request Start: 06-19-2023 End: 06-19-[address] George Vázquez Work Phone: [facility] Work Phone: Start: 06-01-2023 ambulatory Darlyn rowan construction crew memberLadle Repairer Management Comment on above: Community Monitoring Outreach Start: 05-31-2023 End: 05-31-[address] George Vázquez Work Phone: [facility] Work Phone: Start: 05-31-2023 End: 05-31-[address] George Vázquez Work Phone: [facility] Work Phone: Start: 05-29-2023 End: 05-29-2023 Nursing evaluation of patient and report Nurse Mark [facility] Work Phone: General Surgery Comment on above: Infected cyst of ski n (Primary Dx); Skin cyst Start: 05-24-2023 Non-patient / Non-visit Dr. Norma Vázquez Work Phone: [facility] Start: 05-24-2023 End: 05-24-[address] George Vázquez Work Phone: [facility] Work Phone: Start: 05-24-2023 End: 05-24-2023 Patient encounter procedure George Vázquez MD Work Phone: Internal Medicine [place] Comment on above: Medicare annual well ness visit, subsequent (Primary Dx); Primary hypertension; Chronic bronchitis, unspecified chronic bronchitis type (HCC); Acute on chronic respiratory failure with hypoxia (HCC); 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; Gastroesophageal reflux disease, unspecified whether esophagitis present; Tobacco use disorder; Hyperlipidemia, unspecified hyperlipidemia type Start: 05-12-2023 Non-patient / Non-visit Dr. Norma Vázquez Work Phone: [facility] Start: 05-11-2023 End: 05-11-[address] George Vázquez Work Phone: [facility] Work Phone: Start: 05-11-2023 End: 05-11-[address] George Vázquez Work Phone: [facility]-Pulmonary Services/Neurology Work Phone: Start: 04-20-2023 End: 04-20-[address] George Vázquez Work Phone: [facility] Work Phone: Start: 04-11-2023 End: 04-11-[address] George [facility]ázquez [facility] Work Phone: Start: 04-11-2023 End: 04-11-[address] George Vázquez Work Phone: [facility] [facility] Work Phone: Start: 04-06-2023 End: 04-06-[address] George Vázquez Work Phone: [facility] Work Phone: Start: 04-06-2023 End: 04-06-[address] George Vázquez Work Phone: [facility]-Physical Therapy Start: 03-17-2023 End: 03-17-2023 Emergency department patient visit Dr. George Vázquez Work Phone: [facility]-Emergency Department Start: 03-17-2023 End: 03-17-[address] George Vázquez [facility] Start: 02-03-2023 End: 02-03-[address] George Vázquez Work Phone: [facility] Start: 01-28-2023 End: 01-28-[address] George Vázquez Work Phone: [facility] Work Phone: Start: 01-28-2023 End: 01-28-[address] George Vázquez Work Phone: [facility]Laboratory, Specimen Start: 01-24-2023 Telephone encounter George morales MD Work Phone: Internal [facility] [place] Comment on above: Results Start: 01-24-2023 End: 01-24-[address] George Vázquez Work Phone: [facility] Start: 01-18-2023 End: 01-18-2023 Patient encounter procedure George Vázquez MD Work Phone: Internal [facility] [place] Comment on above: Primary hypertension (Primary Dx); 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; Hyperlipidemia, unspecified hyperlipidemia type; Chronic bronchitis, unspecified chronic bronchitis type (HCC); Acute on chronic respiratory failure with hypoxia (HCC); Need for vaccination Start: 01-13-2023 End: 01-13-[address] George Vázquez Work Phone: [facility] Start: 12-28-2022 Non-patient / Non-visit Dr. Norma Vázquez Work Phone: [facility] Start: 12-28-2022 End: 12-28-2022 Admission to same day surgery center Dr. George Vázquez Work Phone: [facility]End[facility] Start: 12-22-2022 End: 12-22-[address] George Vázquez Work Phone: [facility] Start: 12-15-2022 End: 12-15-[address] George Vázquez Work Phone: [facility] Start: 12-13-2022 End: 12-13-[address] George Vázquez Work Phone: [facility] Work Phone: Start: 12-13-2022 End: 12-13-[address] George Vázquez Work Phone: [facility] Start: 12-13-2022 Telephone encounter George morales MD Work Phone: Internal [facility] [place] Comment on above: Rx issue; vaccne que stion. Start: 12-05-2022 Refill George burdick MD Work Phone: Internal [facility] [place] Comment on above: Refill Request Start: 12-02-2022 End: 12-02-2022 Non-patient / Non-visit Dr. George Vázquez Work Phone: [facility] Start: 12-02-2022 Non-patient / Non-visit Dr. Norma Vázquez Work Phone: [facility] Start: 12-02-2022 End: 12-02-2022 Admission to same day surgery center Dr. George Vázquez Work Phone: [facility] Start: 12-01-2022 End: 12-01-[address] George Vázquez Work Phone: [facility]Pulmonary Medicine [facility] Start: 11-30-2022 End: 11-30-2022 Non-patient / Non-visit Dr. George Vázquez Work Phone: [facility] Start: 11-22-2022 End: 11-22-2022 Subsequent hospital visit by physician Xr [facility] Work Phone: Radiology Comment on above: Acute pain of right shoulder [M25.511] Start: 11-22-2022 End: 11-22-2022 Patient encounter procedure Kelly DURAN Work Phone: [facility] Comment on above: Acute pain of right shoulder (Primary Dx); Strain of right shoulder, initial encounter Start: 11-15-2022 End: 11-15-[address] George Vázquez Work Phone: [facility] Start: 11-11-2022 Refill George burdick MD Work Phone: Internal [facility] [place] Comment on above: Med Change Request Start: 11-09-2022 End: 11-09-[address] George Vázquez Work Phone: [facility] Start: 11-09-2022 Refill George burdick MD Work Phone: [facility] [place] Comment on above: Refill Request Start: 11-03-2022 End: 11-03-[address] George Vázquez Work Phone: [facility] Work Phone: Start: 11-03-2022 End: 11-03-[address] George Vázquez Work Phone: [facility] Start: 10-30-2022 Non-patient / Non-visit Dr. Norma Vázquez Work Phone: [facility] Start: 10-29-2022 Non-patient / Non-visit Dr. Norma Vázquez Work Phone: [facility] Start: 10-28-2022 End: 10-30-2022 Evaluation and management of inpatient Dr. George Vázquez Work Phone: [facility]Medical Surgical 3 Start: 10-27-2022 End: 10-27-[address] George Vázquez Work Phone: [facility] Work Phone: Start: 10-27-2022 End: 10-27-[address] George Vázquez Work Phone: [facility]-Pulmonary Services/Neurology Start: 10-26-2022 Refill George burdick MD Work Phone: [facility] [place] Comment on above: Refill Request Start: 10-25-2022 End: 10-25-[address] George Vázquez Work Phone: [facility] Start: 10-18-2022 ambulatory George burdick MD Work Phone: Internal [facility] [place] Comment on above: Renew medication Start: 10-13-2022 Refill Blanca Older TECHNICAL SUPPORT SPECIALIST .GROUP HOME MANAGER Work Phone: Internal Medicine [place] Comment on above: Refill Request Start: 10-03-2022 End: 10-03-[address] George Vázquez Work Phone: [facility] Work Phone: Start: 10-03-2022 End: 10-03-[address] George Vázquez Work Phone: [facility]Physical Therapy Start: 09-26-2022 Refill Blanca Older TECHNICAL SUPPORT SPECIALIST .GROUP HOME MANAGER Work Phone: [facility] [place] Comment on above: Refill Request Start: 09-16-2022 Refill Blanca Older TECHNICAL SUPPORT SPECIALIST .GROUP HOME MANAGER Work Phone: Internal [facility] [place] Comment on above: Refill Request Start: 09-07-[address] Hetal Vázquez Work Phone: [facility] Start: 09-05-2022 Refill Blanca Older TECHNICAL SUPPORT SPECIALIST .GROUP HOME MANAGER Work Phone: Internal [facility] [place] Comment on above: Refill Request Start: 08-31-2022 End: 08-31-[address] George Vázquez Work Phone: [facility] Work Phone: Start: 08-31-2022 End: 08-31-[address] George Vázquez Work Phone: [facility]-Nuclear Medicine, [facility] Start: 08-21-2022 Refill Blanca Older TECHNICAL SUPPORT SPECIALIST .GROUP HOME MANAGER Work Phone: Internal Medicine [place] Comment on above: Refill Request Start: 08-15-2022 Refill Blanca Older TECHNICAL SUPPORT SPECIALIST .GROUP HOME MANAGER Work Phone: Internal Medicine [place] Comment on above: Refill Request Start: 08-04-2022 End: 08-04-[address] George Vázquez [facility] Start: 08-03-2022 Orders Only Low Sanders Work Phone: Family Medicine [place] Comment on above: Primary osteoarthrit is of right knee (Primary Dx) Start: 07-28-2022 End: 07-28-[address] George Vázquez Work Phone: [facility] Work Phone: Start: 07-28-2022 End: 07-28-2022 Patient encounter procedure George Vázquez MD Work Phone: Internal [facility] [place] Comment on above: Cough syncope (Prima ry Dx); Contusion of right chest wall, subsequent encounter; Gallstones Start: 07-26-[address] Hetal Vázquez Work Phone: [facility] Therapy Start: 07-15-2022 End: 07-15-2022 Emergency department patient visit GEORGE VÁZQUEZ Facility:[facility] Start: 07-15-2022 End: 07-15-2022 Patient encounter procedure Michelle Alonzo PA-C Work Phone: [place] [facility] Comment on above: Pleuritic chest pain (Primary Dx) Start: 07-13-2022 End: 07-13-2022 Emergency department patient visit Dr. George Vázquez Work Phone: [facility]Emergency Department Start: 07-11-[address] Hetal Vázquez [facility] Start: 07-05-2022 Telephone encounter George morales MD Work Phone: Internal Medicine [place] Comment on above: Covid 19 Concern Start: 07-05-2022 End: 07-05-2022 Patient encounter procedure Edson Ibrahim APRNTiannaGROUP HOME MANAGER Work Phone: [place] [facility] Comment on above: Suspected COVID-19 v irus infection (Primary Dx) Start: 07-04-2022 End: 07-04-2022 Patient encounter procedure Sharon Zamora PA-C Work Phone: [place] [facility] Comment on above: Oral candidiases (Pr imary Dx) Start: 06-29-2022 Refill George burdick MD Work Phone: Internal [facility] [place] Comment on above: Refill Request Start: 06-26-2022 Refill George burdick MD Work Phone: [facility] [place] Comment on above: Refill Request Start: 06-19-2022 Refill Blanca Nielsen TECHNICAL SUPPORT SPECIALIST .GROUP HOME MANAGER Work Phone: Internal Medicine [place] Comment on above: Refill Request Start: 06-09-2022 End: 06-09-[address] George Vázquez Work Phone: [facility] Start: 06-07-[address] Hetal Vázquez [facility] Start: 05-29-2022 Refill Blanca Older TECHNICAL SUPPORT SPECIALIST .GROUP HOME MANAGER Work Phone: Internal Medicine [place] Comment on above: Refill Request Start: 05-25-2022 ambulatory Josh Cornell RN Ambulatory Best Practice Alert[facility] Comment on above: Community Monitoring Outreach (COPD Telephonic CDM Outreach) Start: 05-25-2022 End: 05-25-[address] George Vázquez [facility] Phone[facility] Start: 05-24-2022 Refill Low Manny Sanders Work Phone: [facility] [place] Start: 05-16-2022 Telephone encounter George morales MD Work Phone: [facility] [place] Comment on above: fax to outside - gas tro referral Start: 05-10-2022 Telephone encounter George morales MD Work Phone: Internal [facility] [place] Comment on above: Release Of Medical R ecords Start: 04-25-2022 ambulatory Josh Cornell RN Ladle Repairer Management Comment on above: Community Monitoring Outreach (COPD Telephonic CDM Outreach) Start: 04-18-2022 ambulatory Blanca Older TECHNICAL SUPPORT SPECIALIST .GROUP HOME MANAGER Work Phone: Internal Medicine [place] Comment on above: Blood work Start: 04-14-2022 MC Get Medical Advice George Vázquez MD Work Phone: Internal Medicine [place] Comment on above: Refill Start: 04-04-2022 ambulatory Josh Cornell RN Ladle Repairer Management Comment on above: Community Monitoring Outreach (Chronic Bronchitis CDM Outreach) Start: 03-21-2022 Refill Blanca Older TECHNICAL SUPPORT SPECIALIST .GROUP HOME MANAGER Work Phone: Internal Medicine [place] Comment on above: Refill Request Start: 03-07-2022 End: 03-29-[address] George Vázquez [facility] Start: 02-28-2022 ambulatory Josh Cornell RN Ladle Repairer Management Comment on above: Community Monitoring Outreach (COPD CDM Outreach) Start: 02-25-2022 End: 02-26-[address] George Vzáquez Work Phone: [facility]Card[facility] Start: 02-22-2022 ambulatory Low Manny Sanders Work Phone: [facility] Comment on above: Right knees swelling up a little bit here and there Start: 02-14-2022 End: 02-14-[address] George Vázquez Work Phone: [facility] Start: 02-04-2022 ambulatory Josh Cornell RN Ladle Repairer Management Comment on above: Community Monitoring Outreach (COPD CDM Outreach) Start: 02-01-2022 End: 02-01-[address] George Vázquez Work Phone[facility] Start: 01-26-2022 End: 01-27-[address] George Vázquez Work Phone: [facility] Start: 01-21-2022 ambulatory Josh Cornell RN Ladle Repairer Management Comment on above: Community Monitoring Outreach (CDM Outreach) Start: 12-29-2021 End: 12-29-[address] George Vázquez Work Phone: [facility] Start: 12-27-2021 End: 12-27-[address] George Vázquez Work Phone: [facility] Start: 11-29-2021 End: 11-29-[address] George Vázquez Work Phone: [facility] Start: 11-22-2021 End: 11-22-[address] George Vázquez Work Phone: [facility] Start: 11-17-2021 Non-patient / Non-visit Dr. Norma Vázquez Work Phone: [facility] Start: 11-15-2021 End: 11-15-[address] George Vázquez Work Phone: [facility] Start: 10-07-[address] George Vázquez Work Phone: [facility]Laboratory Start: 10-04-2021 End: 10-04-[address] George Vázquez Work Phone: [facility] Start: 09-30-2021 Non-patient / Non-visit Dr. Norma Vázquez Work Phone: [facility] Start: 01-15-2021 End: 01-15-2021 Patient encounter procedure [facility] Start: 12-29-2020 End: 12-29-2020 Subsequent hospital visit by physician Xr [facility] Work Phone: Radiology Comment on above: Acute right-sided lo w back pain without sciatica [M54.5] Start: 12-25-2020 End: 12-25-2020 Patient encounter procedure [facility] Procedures Date Procedure Procedure Detail Performing Clinician Start: 07-15-2025 Mri any jt lower ext rem w/o contrast matrl Low Bryant DO Work Phone: Start: 07-08-2025 Arthrocentesis aspir&/inj major jt/bursa w/o us Low Bryant DO Work Phone: Start: 07-03-2025 Radex hip unilateral with pelvis 2-3 views Prateek Matos APRN.CNP Work Phone: Start: 06-14-[address] George Vázquez MD Work Phone: Start: 05-28-2025 Adult depression screening assessment George [...] exam ches t 2 views Prateek Matos TECHNICAL SUPPORT SPECIALIST.GROUP HOME MANAGER Work Phone: Start: 08-12-2024 Lipid 1996 panel - S beto or Plasma Darlyn Moreno RN Start: 05-27-2024 Adult depression screening assessment George Vázquez MD Work Phone: Start: 02-27-2024 Lipid 1996 panel - S beto or Plasma Blanca Tilley TECHNICAL SUPPORT SPECIALIST.GROUP HOME MANAGER Work Phone: Start: 10-18-2023 Radiologic exam ches t 2 views Ilda Bocanegra TECHNICAL SUPPORT SPECIALIST.GROUP HOME MANAGER Work Phone: Start: 08-11-2023 Investigation of transfusion [...] 01-24-[address] e [address] George Vzáquez Work Phone: Start: 01-24-[address] [...] 2 STEPHENS-LAD, S VG-D1 10/14/96 @ [facility] Start: 10-14-1995 History of coronary artery bypass [...] Detail Author Start: 05-05-2031 Urine microalbumin profile Start: 08-12-2029 Lipid panel Lipid Screening Start: 02-26-2029 Lipid panel Lipid Screening Start: 01-09-2028 Diabetes Screening Diabetes Screening Start: 12-29-2027 Colonoscopy COLONOSCOPY Start: 12-29-2027 COLORECTAL CANCER SCREENING COLORECTAL CANCER SCREENING Start: 12-29-2027 Screening for malignant neoplasm of colon Start: 09-12-2027 Diabetes Screening Diabetes Screening Start: 08-12-2027 Diabetes Screening Diabetes Screening Start: 05-05-2027 Lipid 1996 panel - Serum or Plasma Lipid Screening Start: 05-05-2027 Lipid panel Lipid Screening Start: 05-05-2027 LIPID SCREEN LIPID SCREEN Start: 02-26-2027 Diabetes Screening Diabetes Screening Start: 07-07-2026 Annual PCP Team Chronic Disease Visit Annual PCP Team Chronic Disease Visit Start: 06-22-2026 Colonoscopy COLONOSCOPY Start: 06-22-2026 COLORECTAL CANCER SCREENING COLORECTAL CANCER SCREENING Start: 05-28-2026 Annual PCP Team Chronic Disease Visit Annual PCP Team Chronic Disease Visit Start: 05-28-2026 Anxiety Screening Anxiety Screening Start: 05-28-2026 Depression Screening Depression Screening Start: 05-28-2026 Medicare Annual Wellness Visit Medicare Annual Wellness Visit Start: 05-22-2026 DIABETES SCREEN DIABETES SCREEN Start: 05-22-2026 Diabetes Screening Diabetes Screening Start: 04-30-2026 LIPID SCREEN LIPID SCREEN Start: 01-08-2026 Annual PCP Team Chronic Disease Visit Annual PCP Team Chronic Disease Visit Start: 11-28-2025 End: 11-28-2025 Patient encounter procedure 11/28/2025 2:20 PM EST Office Visit [facility] [address] [place] [address] George Vázquez MD [address] [place] [address] 6 month follow-up [facility] Comment on above: 6 month follow-up Start: 11-03-2025 PROSTATE CANCER SCREENING DISCUSSION PROSTATE CANCER SCREENING DISCUSSION Start: 09-12-2025 Annual PCP Team Chronic Disease Visit Annual PCP Team Chronic Disease Visit Start: 09-04-2025 Annual PCP Team Chronic Disease Visit Annual PCP Team Chronic Disease Visit Start: 09-04-2025 BP Controlled (<130/80) BP Controlled (<130/80) [facility] Start: 09-01-2025 End: 09-01-2025 Patient encounter procedure 09/01/2025 1:00 PM EST Office Visit Orthopaedics [address] [place] [address] Saritha Greenwood PA-C [address] [place] [address] Dupuytren's contracture of right hand [M72.0] Orthopaedics Comment on above: Dupuytren's contracture of right hand [M 72.0] Start: 08-12-2025 Annual PCP Team Chronic Disease Visit Annual PCP Team Chronic Disease Visit Start: 08-12-2025 Hepatitis B surface antibody level LDL Cholesterol Start: 07-28-2025 Registered Recurring Registered Recurring -Physical Therapy Work Phone: Start: 07-15-2025 DIABETES SCREEN DIABETES SCREEN Start: 07-08-2025 End: 07-08-2025 Patient encounter procedure 07/08/2025 10:00 AM EDT Office Visit [facility] [address] [place] [address] Low Bryant V, [address] [place] [address] Acute right hip pain [M25.551] [facility] Comment on above: Acute right hip pain [M25.551] Start: 07-07-2025 End: 07-07-2025 Patient encounter procedure 07/07/2025 11:00 AM EDT Office Visit Internal [facility] [address] [place] [address] Blanca Tilley, TECHNICAL SUPPORT SPECIALIST.GROUP HOME MANAGER [address] [place] [address] urg care f/u [facility] Comment on above: urg care f/u Start: 2025 Influenza [facility] Start: 06-04-2025 Screening for malignant neoplasm of lung Lung Cancer Screening Start: 05-28-2025 End: 05-28-2025 Patient encounter procedure 05/28/2025 1:40 PM EDT Office Visit Internal Medicine [place] [address] [facility] [place] [address] George Vázquez MD [address] [place] [address] Annual Medicare Wellness w/5 month follow-up [facility] Comment on above: Annual Medicare Wellness w/5 month follo w-up Start: 05-27-2025 Annual PCP Team Chronic Disease Visit Annual PCP Team Chronic Disease Visit Start: 05-27-2025 Anxiety Screening Anxiety Screening Start: 05-27-2025 BP Controlled (<130/80) BP Controlled (<130/80) [facility] in Start: 05-27-2025 Depression Screening Depression Screening Start: 05-05-2025 DIABETES SCREEN DIABETES SCREEN Start: 02-26-2025 Hepatitis B surface antibody level LDL Cholesterol Start: 01-20-2025 Covid-19 Vaccine () Covid-19 Vaccine () Start: 01-08-2025 End: 04-09-2025 Basic metabolic 2000 panel - Serum or Plasma [facility] Work Phone: Comment on above: Expected: 01/08/2025, Expires: Start: 11-25-2024 End: 11-25-2024 Patient encounter procedure 11/25/2024 1:20 PM EST Office Visit [facility] [address] [place] [address] George Vázquez MD [address] [place] [address] 6 month follow-up Internal [facility] Comment on above: 6 month follow-up Start: 11-23-2024 Annual PCP Team Chronic Disease Visit Annual PCP Team Chronic Disease Visit Start: 11-23-2024 BP Controlled (<130/80) BP Controlled (<130/80) [facility] inic Start: 11-08-2024 DIABETES SCREEN DIABETES SCREEN Start: 10-30-2024 Advance Directive Discussion Advance Directive Discussion Start: 10-28-2024 Patient discharge [facility] Start: 10-27-2024 Following clinical pathway protocol [facility] Start: 10-27-2024 Ambulation without limitation [facility] Start: 10-27-2024 Assessment of risk of venous thromboembolism [facility] Start: 10-27-2024 Cardiac monitoring [facility] Start: 10-27-2024 Incentive spirometry [facility] Start: 10-27-2024 Insertion of catheter into peripheral vein [facility] Start: 10-27-2024 Oxygen therapy [facility] Start: 10-27-2024 Providing care according to standard [facility] Start: 10-27-2024 Referral to service [facility] Start: 10-27-2024 [facility] Start: 10-27-2024 Admission procedure [facility] Start: 09-17-2024 End: 09-17-2024 [facility] Start: 09-12-2024 End: 12-12-2024 Basic metabolic 2000 panel - Serum or Plasma Comment on above: Expected: 09/12/2024, Expires: Start: 09-12-2024 End: 12-12-2024 CBC panel - Blood by Automated count [facility] Work Phone: Comment on above: Expected: 09/12/2024, Expires: Start: 09-12-2024 End: 12-12-2024 Natriuretic peptide.B prohormone N-Terminal [Mass/volume] in Serum or Plasma Comment on above: Expected: 09/12/2024, Expires: Start: 08-27-2024 End: 08-27-2024 ambulatory 08/27/2024 1:30 PM EDT Results Only [facility] [address] [place] [address] [facility] Start: 08-12-2024 End: 11-11-2024 CBC panel - Blood by Automated count Comment on above: Expected: 08/12/2024, Expires: Start: 08-12-2024 End: 11-11-2024 Comprehensive metabolic 2000 panel - Serum or Plasma Comment on above: Expected: 08/12/2024, Expires: Start: 08-12-2024 End: 11-11-2024 Hemoglobin A1c in Blood Comment on above: Expected: 08/12/2024, Expires: Start: 08-12-2024 End: 11-11-2024 Lipid 1996 panel - Serum or Plasma [facility] Work Phone: Comment on above: Expected: 08/12/2024, Expires: Start: 08-12-2024 End: 11-11-2024 Magnesium [Mass/volume] in Serum or Plasma Comment on above: Expected: 08/12/2024, Expires: Start: 08-12-2024 End: 11-11-2024 Urinalysis complete panel - Urine Comment on above: Expected: 08/12/2024, Expires: Start: 2024 Covid-19 Vaccine ( season) Covid-19 Vaccine ( season) Start: 2024 Covid-19 Vaccine ( season) Covid-19 Vaccine ( season) Start: 2024 Influenza vaccination Influenza Vaccine (#1) [facility] Start: 05-27-2024 End: 05-27-2024 Patient encounter procedure 05/27/2024 12:00 PM EDT Office Visit Internal Medicine [facility] [address] [place] [address] George Vázquez MD [address] [place] [id number] Medicare Wellness [facility] Comment on above: Medicare Wellness Start: 05-24-2024 ANNUAL PCP TEAM CHRONIC DISEASE VISIT ANNUAL PCP TEAM CHRONIC DISEASE VISIT Start: 05-24-2024 BP CONTROLLED (<130/80) BP CONTROLLED (<130/80) [facility] inic Start: 01-25-2024 Hepatitis B surface antibody level LDL CHOLESTEROL Start: 01-19-2024 ANNUAL PCP TEAM CHRONIC DISEASE VISIT ANNUAL PCP TEAM CHRONIC DISEASE VISIT Start: 01-14-2024 Covid-19 Vaccine () Covid-19 Vaccine () Start: 10-30-2023 Advance Directive Discussion Advance Directive Discussion Start: 10-30-2023 Behavioral Health Screening [facility]al [facility] Screening Start: 10-30-2023 Depression Assessment Depression Assessment Start: 07-28-2023 ANNUAL PCP TEAM CHRONIC DISEASE VISIT ANNUAL PCP TEAM CHRONIC DISEASE VISIT Start: 07-28-2023 BP CONTROLLED (<130/80) BP CONTROLLED (<130/80) [facility] Start: 07-24-2023 End: 09-23-2023 Basic metabolic 2000 panel - Serum or Plasma BASIC METABOLIC PNL Lab Routine Primary hypertension Expected: 07/24/2023, Expires: 09/23/2023 [facility] Work Phone: Comment on above: Expected: 07/24/2023, Expires: Start: 07-05-2023 BP CONTROLLED (<130/80) BP CONTROLLED (<130/80) [facility] Start: 2023 Covid-19 Vaccine () Covid-19 Vaccine () Start: 2023 Influenza vaccination Start: 05-09-2023 Adult depression screening assessment DEPRESSION SCREENING Start: 05-09-2023 ANNUAL PCP TEAM CHRONIC DISEASE VISIT ANNUAL PCP TEAM CHRONIC DISEASE VISIT Start: 05-09-2023 BP CONTROLLED (<130/80) BP CONTROLLED (<130/80) [facility] Start: 05-09-2023 SHINGRIX VACCINE (1 of 2) SHINGRIX VACCINE (1 of 2) Comment on above: Postponed from 2004 (Declined at t his time) Start: 05-05-2023 Hepatitis B surface antibody level LDL CHOLESTEROL Start: 04-13-2023 COVID-19 VACCINE (6 - Pfizer series) COVID-19 VACCINE (6 - Pfizer series) Start: 12-28-2022 Colonoscopy w/biopsy single/multiple COLONOSCOPY AND BIOPSY [facility] Start: 12-28-2022 Colsc flx w/rmvl of tumor polyp lesion snare tq COLONOSCOPY W/LESION REMOVAL [facility] Start: 12-28-2022 Egd transoral biopsy single/multiple EGD BIOPSY SINGLE/MULTIPLE [facility] Start: 12-28-2022 Patient discharge [facility] Start: 12-22-2022 BP CONTROLLED (<130/80) BP CONTROLLED (<130/80) [facility] in Start: 12-02-2022 Anes intraperitoneal upper abdomen w/laps nos ANESTH SURG UPPER ABDOMEN [facility] Start: 12-02-2022 Laps surg cholecystectomy w/cholangiography LAPARO CHOLECYSTECTOMY/GRAPH [facility] Start: 12-02-2022 Patient discharge [facility] Start: 11-05-2022 ANNUAL PCP TEAM CHRONIC DISEASE VISIT ANNUAL PCP TEAM CHRONIC DISEASE VISIT Start: 10-30-2022 ADVANCE DIRECTIVE DISCUSSION ADVANCE DIRECTIVE DISCUSSION Start: 10-30-2022 DEPRESSION ASSESSMENT DEPRESSION ASSESSMENT Start: 10-30-2022 Patient discharge [facility] Start: 10-29-2022 Respiratory secretion precautions [facility] Start: 10-29-2022 Physiotherapy of chest [facility] Start: 10-29-2022 Inhalation therapy procedure [facility] Start: 10-28-2022 Application of intermittent pneumatic compression device [facility] Start: 10-28-2022 Following clinical pathway protocol [facility] Start: 10-28-2022 Assessment of risk of venous thromboembolism [facility] Start: 10-28-2022 Incentive spirometry [facility] Start: 10-28-2022 Insertion of catheter into peripheral vein [facility] Start: 10-28-2022 Introduction of urinary catheter [facility] Start: 10-28-2022 Measuring intake and output [facility] Start: 10-28-2022 Oxygen therapy [facility] Start: 10-28-2022 Providing care according to standard [facility] Start: 10-28-2022 Provision of activity privileges [facility] Start: 10-28-2022 Referral to service [facility] Start: 10-28-2022 Tobacco use cessation education [facility] Start: 10-28-2022 [facility] Start: 10-28-2022 Admission procedure [facility] Start: 10-28-2022 [facility] Work Phone: Start: 08-23-2022 PNEUMOCOCCAL: 65+ (3 - PPSV23 if available, else PCV20) PNEUMOCOCCAL: 65+ (3 - PPSV23 if available, else PCV20) Start: 08-23-2022 PNEUMOCOCCAL: 65+ (3 - PPSV23 or PCV20) PNEUMOCOCCAL: 65+ (3 - PPSV23 or PCV20) Start: 08-23-2022 PNEUMOVAX AGE 65 AND OVER WITH 5YR LOOKBACK (#1) PNEUMOVAX AGE 65 AND OVER WITH 5YR LOOKBACK (#1) Start: 07-28-2022 Celiac disease screen [facility] Work Phone: Start: 07-28-2022 IgE [Units/volume] in Serum or Plasma [facility] Work Phone: Start: 07-28-2022 Serum immunofixation [facility] Work Phone: Start: 07-28-2022 [facility] Work Phone: Start: 07-05-2022 End: 07-19-2022 Influenza virus A and B RNA and SARS-CoV-2 (COVID-19) N gene panel - Respiratory specimen by JESSICA with probe detection [facility] Work Phone: Comment on above: Expected: 07/05/2022, Expires: 2 Start: 07-04-2022 COVID-19 VACCINE (5 - Booster for Pfizer series) COVID-19 VACCINE (5 - Booster for Pfizer series) Start: 2022 Influenza vaccination INFLUENZA (#1) Start: 05-05-2022 Adult depression screening assessment DEPRESSION SCREENING Start: 04-30-2022 Hepatitis B surface antibody level LDL CHOLESTEROL Start: 04-27-2022 End: 06-27-2022 Basic metabolic 2000 panel - Serum or Plasma BASIC METABOLIC PNL Lab Routine Hyperlipidemia, unspecified hyperlipidemia type Expected: 04/27/2022, Expires: 06/27/2022 [facility] Work Phone: Comment on above: Expected: 04/27/2022, Expires: 2 Start: 04-27-2022 End: 06-27-2022 Lipid 1996 panel - Serum or Plasma LIPID PANEL BASIC Lab Routine Hyperlipidemia, unspecified hyperlipidemia type Expected: 04/27/2022, Expires: 06/27/2022 [facility] Work Phone: Comment on above: Expected: 04/27/2022, Expires: 2 Start: 10-30-2021 ADVANCE DIRECTIVE DISCUSSION ADVANCE DIRECTIVE DISCUSSION Start: 10-30-2021 DEPRESSION ASSESSMENT DEPRESSION ASSESSMENT Start: 10-29-2016 FECAL OCCULT BLOOD FECAL OCCULT BLOOD Start: 10-29-2016 Screening for malignant neoplasm of colon Fecal Occult Blood Start: 2014 RSV Vaccine (1 - 1-dose 60+ series) RSV Vaccine (1 - 1-dose 60+ series) Start: 2004 Screening for malignant neoplasm of lung Lung Cancer Screening Start: 2004 SHINGRIX VACCINE (1 of 2) SHINGRIX VACCINE (1 of 2) Start: 1999 COLOGUARD (FIT-DNA) Start: [address] COLONOGRAPHY Start: 1999 Screening for malignant neoplasm of colon Start: 1999 SIGMOIDOSCOPY SIGMOIDOSCOPY Start: 1984 Zoledronic acid therapy Alpha-1 Antitrypsin Deficiency Screening Start: 1972 Anxiety Screening Anxiety Screening Start: 1972 BP CONTROLLED (<130/80) BP CONTROLLED (<130/80) [facility] Start: 1972 Depression Screening Depression Screening 24 Hour ECG [facility] Albumin [Moles/volum e] in Serum or Plasma [facility] Work Phone: Albumin/Globulin ratio [facility] Work Phone: Antibody to lupus La protein measurement [facility] Work Phone: Antibody to SS-A measurement [facility] Work Phone: Basic metabolic 2008 panel with ionized calcium - Serum or Plasma [facility] Centromere protein B Ab [Units/volume] in Serum [facility] Work Phone: Chromatin Ab [Units/volume] in Serum or Plasma [facility] Work Phone: Clostridioides diffi cile DNA [Presence] in Unspecified specimen by JESSICA with probe detection [facility] Work Phone: CT Abdomen and Pelvi s W contrast IV [facility] Work Phone: CT Chest [facility] CT Chest WO contrast [facility] CTA Abdominal vessel s WO and W contrast IV [facility] Work Phone: DNA double strand Ab [Units/volume] in Serum [facility] Work Phone: ECG COMPLETE ECG COMPLETE ECG Routine 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 09/12/2024 4:39 PM EST Elastase, pancreatic (el-1), fecal; quantitative [facility] Work Phone: Electrophoresis: [id number] [facility] Work Phone: Electrophoresis: charbel ma globulin [facility] Work Phone: Fat [Presence] in Stool [facility] Work Phone: Gastrointestinal pathogens panel - Stool by JESSICA with probe detection [facility] Work Phone: Globulin measurement [facility] Work Phone: Hepatic function panel [facility] Hepatic function panel [facility] IgA [Mass/volume] in Serum or Plasma [facility] Work Phone: IgE [Units/volume] i n Serum or Plasma [facility] Work Phone: IgG [Mass/volume] in Serum or Plasma [facility] Work Phone: IgM [Mass/volume] in Serum or Plasma [facility] Work Phone: Maki-1 extractable nuc lear Ab [Units/volume] in Serum [facility] Work Phone: Lactoferrin [Presenc e] in Stool by Immunoassay [facility] Work Phone: Lipid 1996 panel - S beto or Plasma [facility] Lipid 1995 panel - S beto or Plasma [facility] Measurement of immunoglobulin A in serum specimen [facility] Work Phone: Neutrophil cytoplasm ic Ab.classic [Units/volume] in Serum [facility] Work Phone: P-ANCA measurement [facility] Work Phone: Patient Education [facility] Work Phone: Patient referral [facility] Work Phone: Protein electrophore sis panel - Serum or Plasma [facility] Work Phone: Protein measurement [facility] Work Phone: Radionuclide gastric emptying study [facility] Work Phone: SCL-70 extractable nuclear Ab [Units/volume] in Serum by Immunoassay [facility] Work Phone: Serum protein electrophoresis [facility] Work Phone: Reyes extractable nu clear Ab [Presence] in Serum [facility] Work Phone: Tissue transglutamin ase IgA Ab [Units/volume] in Serum [facility] Work Phone: End: 12-22-2023 XR SHOULDER [id number] AP/TRUE AP RIGHT XR SHOULDER [id number] AP/TRUE AP RIGHT Radiology STAT Acute pain of right shoulder 1 Occurrences starting 11/22/2022 until 12/22/2023 [facility] Work Phone: Comment on above: 1 Occurrences starting 11/22/2022 until 12/22/2023 [facility] Immunizations Immunization Date Immunization Notes Care Provider Fa cili 07-23-2024 Seasonal trivalent influenza vaccine, adjuvanted, preservative free Blanca Tilley APRN.GROUP HOME MANAGER Work Phone: 07-23-2024 influenza virus vaccine, unspecified formulation George Vázquez MD Work Phone: 06-04-2024 respiratory syncytia l virus (RSV) vaccine, adjuvanted (AREXVY) George Vázquez MD Work Phone: 09-15-2023 COVID-19 vaccine, ag e 12+ yr, season (WellogixBIOSmart [place]) George Vázquez MD Work Phone: Work Phone: 09-15-2023 influenza (aIIV4) vaccine, age 65+ yr, quadrivalent, PF (FLUAD QUAD) Darlyn Moreno RN Work Phone: 09-15-2023 influenza, injectabl e, quadrivalent, contains preservative George Vázquez MD Work Phone: Work Phone: 09-15-2023 influenza virus vaccine, unspecified formulation Blanca Tilley APRN.GROUP HOME MANAGER Work Phone: 01-18-2023 pneumococcal Conjuga te, unspecified formulation George Vázquez MD Work Phone: [facility] Work Phone: 01-18-2023 pneumococcal (PCV20) vaccine, 20 valent (PREVNAR 20) George Vázquez MD Work Phone: Work Phone: 12-14-2022 COVID-19 booster vaccine, age 12+ yr, bivalent ([id number]) George Vázquez MD Work Phone: Work Phone: 07-14-2022 influenza, injectabl e, quadrivalent, preservative free Dr. George Vázquez Work Phone: [facility] 07-14-2022 influenza, seasonal, injectable Dr. George Vázquez Work Phone: [facility] 07-14-2022 influenza virus vaccine, unspecified formulation George Vázquez MD Work Phone: 05-09-2022 Covid (Pfizer) Dr. George jade Work Phone: [facility] 05-09-2022 COVID-19 vaccine, ag e 12+ yr (PFIZER-BIONTECH - GIBBS TOP) George Vázquez MD Work Phone: 07-25-2021 COVID-19 vaccine, ag e 12+ yr (PFIZER-BIONTECH - PURPLE TOP) Josh Reveles RN Work Phone: 2021 Covid (Pfizer) Dr. George jade Work Phone: [facility] [address] George Vázquez Work Phone: [facility] 05-05-2021 tetanus toxoid, redu wojciech diphtheria toxoid, and acellular pertussis vaccine, adsorbed Josh Reveles RN Work Phone: 01-15-2021 COVID-19 vaccine, ag e 12+ yr (PFIZER-BIONTECH - PURPLE TOP) Josh Reveles RN Work Phone: 12-25-2020 COVID-19 vaccine, ag e 12+ yr (PFIZER-BIONTECH - PURPLE TOP) Josh Reveles RN Work Phone: 07-22-2020 influenza, injectabl e, quadrivalent, contains preservative Josh Reveles RN Work Phone: 08-27-2019 influenza, high dose seasonal, preservative-free Josh Reveles RN Work Phone: 08-27-2019 pneumococcal conjuga te vaccine, 13 valent Josh Carlsonesjimi REILLY Work Phone: 09-16-2018 influenza, seasonal, injectable Josh Carlsonesjimi REILLY Work Phone: 08-23-2017 influenza, injectabl e, quadrivalent, contains preservative Josh Reveles RN 08-23-2017 pneumococcal polysaccharide vaccine, 23 valent Josh Carlsonesjimi REILLY Work Phone: 08-13-2016 influenza, seasonal, injectable Josh Carlsonesjimi REILLY 08-13-2015 influenza, seasonal, injectable Josh Carlsonesjimi REILLY 08-18-2014 influenza, seasonal, injectable Josh Carlsonesjimi REILLY 10-11-2013 pneumococcal polysaccharide vaccine, 23 valent Josh Carlsonesjimi REILLY 08-20-2013 influenza virus vaccine, unspecified formulation Josh Reveles [facility] Work Phone: 02-18-2013 tuberculin skin test ; purified protein derivative solution, intradermal Darlynjimi Moreno RN 07-26-2012 influenza virus vaccine, unspecified formulation Josh Carlsonesa [facility] Work Phone: Payers Date Payer Category Payer Self-pay [id number] 2019 Medicare MEDICARE MEDICAR E A AND B [id number] 2019-Present [phone] [address] [address] [place] [address] Medicare [id number] 2019 Medicare [id number] 2019 Private Health Insurance [facility] AARP SUPPLEMENT [id number] 2019-Present [phone] [address] [place] [address] Indemnity [id number] 2019 Private Health Insurance [id number] 2019 Medicare [id number] 2019 Unknown [id number] 1955 Unknown [id number] .651 1955 Unknown [id number] [id number] .651 Private Health Insurance [facility] [id number] Unknown [id number] Unknown [id number] [id number] .462 Unknown [id number] 2.16840.1.155594.3.579.2 .462 Unknown [id number] 2.16840.1.866296.3.579.2 .462 Unknown [id number] 2.16840.1.777968.3.579.2 .462 Unknown [id number] 2.16840.1.823791.3.579.2 .462 Unknown [id number] 2.16840.1.238659.3.579.2 .462 Unknown [id number] 2.16840.1.293209.3.579.2 .462 Unknown [id number] 2.16840.1.038743.3.579.2 .462 Unknown [id number] 2.16840.1.789312.3.579.2 .462 Unknown [id number] 2.16840.1.205464.3.579.2 .462 Unknown [id number] 2.16.840.1.715390.3.579.2 .462 Unknown [id number] 2.16.840.1.664559.3.579.2 .462 Unknown [id number] 2.16.840.1.816427.3.579.2 .462 Unknown [id number] 2.16.840.1.563245.3.579.2 .462 Unknown [id number] 2.16.840.1.366524.3.579.2 .462 Unknown [id number] 2.16.840.1.822002.3.579.2 .462 Unknown [id number] 2.16.840.1.760735.3.579.2 .462 Unknown [id number] 2.16.840.1.386788.3.579.2 .462 Unknown [id number] 2.16.840.1.062025.3.579.2 .462 Unknown [id number] 2.16.840.1.236377.3.579.2 .462 Unknown [id number] 2.16.840.1.276275.3.579.2 .462 Unknown [id number] 2.16.840.1.035341.3.579.2 .462 Unknown [id number] 2.16.840.1.141918.3.579.2 .462 Unknown [id number] 2.16840.1.788816.3.579.2 .462 Unknown [id number] 2.16.840.1.259396.3.579.2 .462 Social History Date Type Detail Facility Start: 03-16-2020 End: 01-20-2025 Tobacco smoking status [facility] Smokes tobacco daily Start: 06-17-1984 History of tobacco use Cigarette Smoker Start: 06-17-1984 History of tobacco use Pipe Smoker Start: 03-16-2020 End: 10-04-2020 Cigarettes smoked current (pack per day) - Reported 0.5 Start: 03-16-2020 End: 08-25-2024 Tobacco use and exposure Smokeless tobacco non-user Start: 12-22-2021 End: 07-08-2025 Alcohol intake Current drinker of alcohol (finding) Start: 02-24-2020 End: 05-07-2020 History SDOH Alcohol Frequency 4 Start: 02-24-2020 End: 05-07-2020 History SDOH Alcohol Std Drinks 1 Start: 11-08-2021 History SDOH Alcohol Comment 2 mixed drinks per day Start: 02-24-2020 History SDOH Social Connections Phone 5 Start: 02-24-2020 History SDOH Social Connections Get Together 2 Start: 02-24-2020 Education 12 Start: 06-20-2012 Tobacco Comment smokes ocassionally Start: 1955 Sex Assigned At Not on file Start: 11-28-2020 End: 07-28-2022 Exposure to SARS-CoV-2 (event) Not sure Start: 11-22-2021 End: 11-23-2023 Tobacco smoking status NHIS Unknown if ever smoked [facility] Start: 1955 Sex Assigned At Male [facility] Start: 02-24-2020 End: 10-04-2020 Social connection and isolation panel Do you belong to any clubs or organizations such as hindu groups, unions, fraternal or athletic groups, or school groups? No Are you now , , , , never or living with a partner? How often to you hav e a drink containing alcohol? 2-3 time sa week Work Phone: How many standard dr inks containing alcohol do you have on a typical day? 1 or 2 Work Phone: How often do you hav e 6 or more drinks on 1 occasion? Never Work Phone: Start: 09-30-2012 How hard is it for you to pay for the very basics like food, housing, medical care, and heating Not hard at all Do you feel stress - tense, restless, nervous, or anxious, or unable to sleep at night because your mind is troubled all the time - these days [OSQ] Only a little (I/We) worried rhett er (my/our) food would run out before (I/we) got money to buy more. Never true Start: 05-24-2023 Alcohol Comment 2 mixed drinks 2 times per week. Start: 01-15-2025 End: 02-11-2025 Sex Male (finding) [facility] How often to you hav e a drink containing alcohol? 4 or more times a week Do you belong to any clubs or organizations such as hindu groups, unions, fraternal or athletic groups, or school groups? Yes Medical Equipment Procedure Code Equipment Code Equipment Original Text Equipment Identifier Dates Total cholecystectomy with exploration of common bile duct Ligation clip, synthetic polymer, non-bioabsorbable ()[id number] FDA Start: 12-02-2022 Total cholecystectomy with exploration of common bile duct Ligation clip, synthetic polymer, non-bioabsorbable ()[id number] FDA Start: [id number] 5 6148-Simplex P Bone Cement Radiopaque Full Dose Individual Pack - [id number] Start: [id number] 5 6148-Simplex P Bone Cement Radiopaque Full Dose Individual Pack - [id number] Start: [id number] 5 4177-Kgn-Kk-A-Kin d Implant - [id number] Start: 10-10-2013 Comment on above: Description: POLY PA TELLA CEMENTED [id number] 0706-Ivf-Hy-A-Kin d Implant - [id number] Start: 10-10-2013 Comment on above: Description: FEMUR C EMENT CR [id number] 5587-Gal-Bp-A-Kin d Implant - [id number]_[facility] Start: 10-10-2013 Comment on above: Description: HAMILTON ZAZUETA FIXED BEARING CR [id number] 8070-Ypk-Lj-A-Kin d Implant - [id number] Start: 10-10-2013 Comment on above: Description: natural tibia ([id number]) Drug-eluting coronary artery stent, bioabsorbable-primo ymer-coated ()[id number] FDA Start: 09-29-2021 ([id number]) Drug-eluting coronary artery stent, bioabsorbable-primo ymer-coated ()[id number] FDA Start: 09-29-2021 Goals Date Patient Goal [...] 4 05/28/20 1:48 PM George Huffman MD 10-28-2024 Functional status Ambulates [facility] Work Phone: 10-30-2022 Functional status Ambulates [facility] Work Phone: 11-12-2021 Are you deaf, or do you have serious difficulty hearing No 11/12/2021 4:15 PM Tammie Ramirez RN No 11-12-2021 Are you blind, or do you have serious difficulty seeing, even when wearing glasses No 11/12/2021 4:15 PM Tammie Ramirez RN No 11-12-2021 Do you have serious difficulty walking or climbing stairs No 11/12/2021 4:15 PM Tammie Ramirez RN No 11-12-2021 Do you have difficul ty dressing or bathing No 11/12/2021 4:15 PM Tammie Ramirez RN No 11-12-2021 Because of a physica l, mental, or emotional condition, do you have difficulty doing errands alone such as visiting a physician's office or shopping No 11/12/2021 4:15 PM Tammie Ramirez RN No [facility] Mental Status Date Assessment Result Facility 10-28-2024 [facility] 10-28-2024 Cognitive function Arousable To Voice/Nam [facility] Work Phone: 12-28-2022 Cognitive function Voice/Name [facility] Work Phone: 12-02-2022 Cognitive function Voice/Name [facility] Work Phone: 10-30-2022 Cognitive function Voice/Name [facility] [facility] Work Phone: 07-13-2022 Cognitive function Voice/Name [facility] Work Phone: 11-12-2021 Because of a physica l, mental, or emotional condition, do you have serious difficulty concentrating, remembering, or making decisions No 11/12/2021 4:15 PM Tammie Ramirez RN No Clinical Notes 11-10-2016 to 08-18-2025 John Mitchell, (R) - 07/15/2025 7:00 AM Low Veliz V, DO - 07/08/2025 10:31 AM Jessie Aguila MA - 07/08/2025 9:55 AM EDTPatient InstructionsDaDain ortiz Tech - 07/03/2025 12:20 PM EDT Note Date & Type Note Facility 08-18-2025 Note HNO ID: [id number] Author: SARITHA GREENWOOD PA-C Service: ? Author Type: Physician Studio Couch Frame Builder Type: Progress Notes Filed: 08/18/2025 14:02 Note Text: Saritha Greenwood PA-C Department of Orthopaedics Orthopaedics [address] [facility] [address] Dept: [phone] Dept August 18, 2025 CHIEF COMPLAINT: New of the Right Hand (Dupuytren's contracture right hand/Last seen 01/28/21 S/P left CTR (12/17/20)) 1. Dupuytren's contracture of right hand (M72.0) - Chronic, recurrent contracture with palpable cords and nodules in both hands; prior XIAFLEX injection to right ring finger 6 years ago provided temporary improvement. - Discussed treatment options: repeat XIAFLEX injection vs. surgical excision of cords (one hand at a time); explained risks of recurrence, infection, and need for hand therapy post-procedure. - Advised that surgery requires anesthesia and cannot be performed locally; XIAFLEX injections require authorization by Dr. Phillips. - Educated on the role of tobacco use in accelerating recurrence; strongly advised smoking cessation to reduce risk of recurrence. - Patient to consider options and notify via [email or web address] if wishing to proceed with XIAFLEX or surgery. ASSESSMENT: M72.0 Dupuytren's contracture of right hand PLAN: 1. Dupuytren's contracture of right hand (M72.0) - Chronic, recurrent contracture with palpable cords and nodules in both hands; prior XIAFLEX injection to right ring finger 6 years ago provided temporary improvement. - Discussed treatment options: repeat XIAFLEX injection vs. surgical excision of cords (one hand at a time); explained risks of recurrence, infection, and need for hand therapy post-procedure. - Advised that surgery requires anesthesia and cannot be performed locally; XIAFLEX injections require authorization by Dr. Phillips. - Educated on the role of tobacco use in accelerating recurrence; strongly advised smoking cessation to reduce risk of recurrence. - Patient to consider options and notify via MyChart if wishing to proceed with XIAFLEX or surgery. Will continue to monitor patient for Dupuytren's contracture of right hand, patient to schedule visit as per follow up discussed. Mr. Horace Henderson was advised as to contrast therapies and/or to take analgesics/anti-inflammatories as needed and all contraindications were reviewed. OBJECTIVE: Mr. Horace Henderson is a pleasant 70 year old in no apparent distress. Gen:There were no vitals taken for this visit. nl development, non obese, no deformities ENT: Normocephalic, normal hearing, moist mucosa CV: Pulses:Radial= 2+ and symmetric, capillary refill < 2 secs, no peripheral edema/varicosities Skin: no rash, bruising or lesions. Good turgor. Psych: cooperative and appropriate, alert and oriented x 3, good mood and affect. Musculoskeletal: Right ring finger with a Dupuytren's cord formation starting at the palmar crease extending up to the right ring middle phalanx, cord is slightly radial in the digit, there is some nodules present over the flexor aspect of the middle phalanx. Contracture of the PIP joint, about 45 degrees of flexion, no contracture at the MCP or DIP noted. Left pinky digit with a cord formation from the palmar crease extending up into the base of the left pinky digit, some centralized nodule formation about the proximal phalanx. Contracture of the left pinky MCP of about 25 degrees, no contracture noted at the PIP or DIP joints. There is a second cord extending from the palmar crease just about to the base of the index digit. Imaging: Deferred today. Supporting Subjective Information Below: Past Surgical History: PAST SURGICAL HISTORY Procedure Laterality Date ANESTH OPEN/SURG ARTHRS TOTAL KNEE ARTHROPLASTY 10/10/2013 LEFT APPENDEC INDICATED PURPOSE OTH MAJOR PX NOT SPX 08/12/2012 CABG (2) VEIN GRAFTS AND ARTERIAL GRAFT(S 10/14/1996 SVG to diagonal. STEPHENS to LAD. [facility]. CC CORONARY STENT 09/29/2021 Biotronik 2.5x22 [...] HX TONSILLECTOMY HX 1966 VASCULAR SURGERY PROCEDURE Medications: C (more content not included)... [facility] 08-18-2025 Note HNO ID: [id number] Author: JESSIE SULLIVAN MA Service: ? Author Type: Boat Pilot Type: Progress Notes Filed: 08/18/2025 14:02 Note Text: Patient presents with: Right Hand - New: Dupuytren's contracture right hand Last seen 01/28/21 S/P left CTR (12/17/20) AMB ROOMING INTAKE FLOWSHEET DATA Patient here for evaluation Dupuytrens contracture right 4th finger. Patient had Xiaflex injection in 10/17. Patient states his finger starting bill about a year after the injection. Patient feels it is getting worse. His left 5th finger is started to contract as well. Denies any pain. [facility] 07-21-2025 Progress note [facility] 07-15-2025 History of Present illness Narrative Radiology Service Progress Note PATIENT NAME: Horace Henderson DATE OF SERVICE: July 15, 2025 TIME: 7:25 AM PATIENT IDENTITY VERIFICATION COMPLETED USING TWO (2) IDENTIFIERS: Name and Date of confirmed by patient verbally. FALL SCREENING: Has the patient had 2 falls in the last year or 1 fall with injury or currently using an Ambulatory Assistive Device (Walker, Cane, Wheelchair, Crutches, etc.)? No PATIENT GENDER DATA: Assigned male at PATIENT RELEVANT IMPLANT DATA REVIEWED: Yes PATIENT PRESENTS WITH AN IMPLANTABLE OR ATTACHED DESIGN ENG: No RADIOLOGY DEPARTMENT: MR; Exam(s) Completed: Lower MSK: Hip, right . Anesthesia: No. Aromatherapy Administered: No PERIPHERAL IV DATA: Not applicable SIGNED BY: QUINTEN Daniels) July 15, 2025 7:25 AM documented in this encounter 07-15-2025 Note HNO ID: [id number] Author: JOHN MITCHELL RT(R) Service: ? Author Type: Technologist Type: Progress Notes Filed: 07/15/2025 07:25 Note Text: Radiology Service Progress Note PATIENT NAME: Horace Henderson DATE OF SERVICE: July 15, 2025 TIME: 7:25 AM PATIENT IDENTITY VERIFICATION COMPLETED USING TWO (2) IDENTIFIERS: Name and Date of confirmed by patient verbally. FALL SCREENING: Has the patient had 2 falls in the last year or 1 fall with injury or currently using an Ambulatory Assistive Device (Walker, Cane, Wheelchair, Crutches, etc.)? No PATIENT GENDER DATA: Assigned male at PATIENT RELEVANT IMPLANT DATA REVIEWED: Yes PATIENT PRESENTS WITH AN IMPLANTABLE OR ATTACHED DESIGN ENG: No RADIOLOGY DEPARTMENT: MR; Exam(s) Completed: Lower MSK: Hip, right . Anesthesia: No. Aromatherapy Administered: No PERIPHERAL IV DATA: Not applicable SIGNED BY: QUINTEN Daniels) July 15, 2025 7:25 AM [facility] 07-08-2025 Note HNO ID: [id number] Author: LOW BRYANT DO Service: ? Author Type: Physician Type: Progress Notes Filed: 07/08/2025 10:32 Note Text: Subjective Horace Henderson is a 70-year-old male presenting with acute onset of right hip pain. Horace reports a 1 week history of right hip pain, described as sharp and localized to the lateral aspect of the hip and the anterior upper thigh. The pain has progressively worsened, significantly impairing his ability to ambulate and perform daily activities, including getting in and out of his car and moving his foot from the gas pedal to the brake while driving. He notes that the pain is exacerbated by movement and weight-bearing activities, and is present even at rest after periods of ambulation. He denies any specific trauma or injury preceding the onset of pain, stating that it developed gradually. He has a history of right knee arthroplasty, which is reportedly doing well. 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 He reports that this has left him with chronic difficulties in ambulation. He recently sought evaluation at an urgent care facility, where a hip x-ray was performed. He was informed that the x-ray showed evidence of arthritis. He denies engaging in activities such as golfing, which he has not done for 2 years. 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 He reports that the pain has been severe enough to prevent him from working today and has caused embarrassment due to his difficulty walking in front of customers. Musculoskeletal: (+) lateral hip pain, (+) anterior thigh pain, (+) knee soreness, (+) gait difficulty Objective There were no vitals taken for this visit. General: No acute distress. MSK/Ext: Tenderness over lateral hip and anterior proximal thigh. Imaging: - Hip X-ray: Arthritic changes noted, including narrowing of the joint space at the inferior aspect and a bony spur, consistent with degenerative changes. Assessment AND Plan 1. Acute right hip pain (M25.551) 2. Trochanteric bursitis of right hip (M70.61) 3. Unilateral primary osteoarthritis, right hip (M16.11) Acute right hip pain began approximately one week ago, localized to the lateral and anterior upper thigh. X-rays from Urgent Care demonstrate chronic arthritic changes, but the pain location and character are more consistent with trochanteric bursitis or tendinitis rather than osteoarthritis. - Administer corticosteroid injection to the right trochanteric bursa. - Instructed patient on light stretching exercises to aid recovery. Large Joint Arthro/Inj: R greater trochanteric bursa 07/08/2025 10:31 AM The procedure site was prepped in the usual sterile fashion. Site: R greater trochanteric bursa Medications: 6 mg betamethasone acetate-betamethasone sodium phosphate 6 mg/mL Anesthetics: 4 mL lidocaine (PF) 10 mg/mL (1 %); 4 mL BUPivacaine (PF) 0.5 % (5 mg/mL) Outcome: Tolerated well, no immediate complications Post-injection instructions were reviewed with the patient and the patient voiced understanding of these instructions. Informed Consent Consent Obtained: Verbal [place] Protocol SIGN IN TIME OUT Recording using ClickFacts software for draft documentation of the visit was discussed with the patient/authorized counter sales representative; all questions welcomed and answered. Patient/authorized counter sales representative agreed to proceed [facility] 07-08-2025 History of Present illness Narrative Associated Order(s): Large Joint Arthro/Inj: R greater trochanteric bursa Post-Procedure Diagnose(s): Trochanteric bursitis of right hip Subjective Horace Henderson is a 70-year-old male presenting with acute onset of right hip pain. Horace reports a 1 week history of right hip pain, described as sharp and localized to the lateral aspect of the hip and the anterior upper thigh. The pain has progressively worsened, significantly impairing his ability to ambulate and perform daily activities, including getting in and out of his car and moving his foot from the gas pedal to the brake while driving. He notes that the pain is exacerbated by movement and weight-bearing activities, and is present even at rest after periods of ambulation. He denies any specific trauma or injury preceding the onset of pain, stating that it developed gradually. He has a history of right knee arthroplasty, which is reportedly doing well. 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 He reports that this has left him with chronic difficulties in ambulation. He recently sought evaluation at an urgent care facility, where a hip x-ray was performed. He was informed that the x-ray showed evidence of arthritis. He denies engaging in activities such as golfing, which he has not done for 2 years. 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 He reports that the pain has been severe enough to prevent him from working today and has caused embarrassment due to his difficulty walking in front of customers. Musculoskeletal: (+) lateral hip pain, (+) anterior thigh pain, (+) knee soreness, (+) gait difficulty Objective There were no vitals taken for this visit. General: No acute distress. MSK/Ext: Tenderness over lateral hip and anterior proximal thigh. Imaging: - Hip X-ray: Arthritic changes noted, including narrowing of the joint space at the inferior aspect and a bony spur, consistent with degenerative changes. Assessment & Plan 1. Acute right hip pain (M25.551) 2. Trochanteric bursitis of right hip (M70.61) 3. Unilateral primary osteoarthritis, right hip (M16.11) Acute right hip pain began approximately one week ago, localized to the lateral and anterior upper thigh. X-rays from Urgent Care demonstrate chronic arthritic changes, but the pain location and character are more consistent with trochanteric bursitis or tendinitis rather than osteoarthritis. - Administer corticosteroid injection to the right trochanteric bursa. - Instructed patient on light stretching exercises to aid recovery. Large Joint Arthro/Inj: R greater trochanteric bursa 07/08/2025 10:31 AM The procedure site was prepped in the usual sterile fashion. Site: R greater trochanteric bursa Medications: 6 mg betamethasone acetate-betamethasone sodium phosphate 6 mg/mL Anesthetics: 4 mL lidocaine (PF) 10 mg/mL (1 %); 4 mL BUPivacaine (PF) 0.5 % (5 mg/mL) Outcome: Tolerated well, no immediate complications Post-injection instructions were reviewed with the patient and the patient voiced understanding of these instructions. Informed Consent Consent Obtained: Verbal [place] Protocol SIGN IN TIME OUT Recording using ClickFacts software for draft documentation of the visit was discussed with the patient/authorized counter sales representative; all questions welcomed and answered. Patient/authorized counter sales representative agreed to proceed Patient presents with: Right Hip Pain: Referred by Blanca Tilley AMB ROOMING INTAKE FLOWSHEET DATA Pain Pain Level: 9 Pain Location: Hip-Right Description: Aching Duration Amount of Time: 1 Duration Units: Weeks Frequency: Continuous Intervention/Comfort measure: Medication documented in this encounter 07-08-2025 Note HNO ID: [id number] Author: JESSIE SULLIVAN MA Service: ? Author Type: Boat Pilot Type: Progress Notes Filed: 07/08/2025 10:32 Note Text: Patient presents with: Right Hip Pain: [facility]il[facility] Pain Pain Level: 9 Pain Location: Hip-Right Description: Aching Duration Amount of Time: 1 Duration Units: Weeks Frequency: Continuous Intervention/Comfort measure: Medication [facility] 07-07-2025 Instructions Blanca Tilley APRN.GROUP HOME MANAGER - 07/07/2025 1:20 PM EDT - I ve prescribed tramadol to worm picker at [facility] for severe hip pain; use it only as needed. - Use tramadol cautiously--it may cause drowsiness, so avoid driving until you know how it affects you. - Stay well hydrated and consider a stool softener (such as Miralax) to help prevent constipation if you take tramadol. - You may continue using the diclofenac gel up to four times daily, though it often provides limited relief in large joints like the hip. - Avoid nonsteroidal anti-inflammatory drugs (NSAIDs) such as ibuprofen or naproxen because you re on Plavix (clopidogrel). - I ve referred you to Dr. Bryant, an planning specialist, for evaluation and possible hip injection if appropriate documented in this encounter 07-07-2025 Note HNO ID: [id number] Author: BLANCA TILLEY APRN.HORTENCIA Service: ? Author Type: Nurse Practitioner Type: Progress Notes Filed: 07/07/2025 13:21 Note Text: CC: Patient presents with: Follow Up: UC right hip pain. Hurts to even lift leg from gas pedal to brake. No improvement. HPI Recording using ClickFacts software for draft documentation of the visit was discussed with the patient/authorized counter sales representative; all questions welcomed and answered. Patient/authorized counter sales representative agreed to proceed The patient is a 70-year-old male with right hip osteoarthritis, presenting for urgent care follow-up of right hip pain. Right Hip Pain: - Onset approximately one week ago, progressively worsening. - Initially evaluated in urgent care on 07/03. - Described as "terrible" pain, exacerbated by lifting the leg and ambulation. - Pain localized to the right lateral hip, with occasional radiation to the groin area. - Interferes with daily activities, including driving. - Nocturnal pain not reported; minimal discomfort when sitting and resting. - No new symptoms since Urgent Care visit - Denies previous history of hip pain. - Recent x-ray revealed moderate right hip osteoarthritis, bilateral degenerative changes, calcifications adjacent to the right ischial tuberosity, and bilateral enthesopathic changes. - Currently using diclofenac gel TID-QID with no significant relief. - Concerns about potential constipation from stronger analgesics. - Prefers to consult with orthopedics for possible injection therapy. Review of Systems See HPI PAST MEDICAL HISTORY Diagnosis Date Achilles tendinitis of both lower extremities 06/23/2020 Acute on chronic respiratory failure with hypoxia (HCC) 10/30/2022 Arthritis Asthma (HCC) CAD (coronary artery disease) 01/11/2012 COPD (chronic obstructive pulmonary disease) with chronic bronchitis (HCC) 10/07/2013 06/17/2014 QBT505% predicted. COVID-19 07/05/2022 DDD (degenerative disc disease), lumbar [...] 10/14/1996 SVG to diagonal. STEPHENS to LAD. [facility]. CC CORONARY STENT 09/29/2021 Biotronik 2.5x22 [...] 1966 VASCULAR SURGERY PROCEDURE ALLERGIES Levofloxacin MEDICATIONS diclofenac (VOLTAREN ARTHRITIS PAIN) 1 % topical gel Apply 2 g to affected area four times daily for 7 days. clopidogrel (PLAVIX) 75 mg tablet Take 1 tablet by mouth once daily. potassium chloride SR (MICRO-K) 10 mEq CR capsule Take 1 capsule by mouth two times a day. furosemide (LASIX) 40 mg tablet Take 1 tablet by mouth once daily as needed (swelling.). rosuvastatin (CRESTOR) 40 mg tablet Take 1 tablet by mouth once daily. Magnesium Oxide 500 mg magnesium tab Take 1 tablet by mouth once daily. ipratropium-albuterol (DUONEB) 0.5 mg-3 mg(2.5 mg base)/3 mL nebu Inhale 3 mL as instructed every 6 hours as needed. metoprolol succinate ER (TOPROL XL) 50 mg 24 hr tablet Take 1 tablet by mouth once daily. From [facility]. losartan (COZAAR) 50 mg tablet Take 1 tablet by mouth once daily. Per [facility]. isosorbide mononitrate ER (IMDUR) 30 mg 24 hr tablet Take 30 mg by mouth once daily. traMADol (ULTRAM) 50 mg tablet Take 1 tablet by mouth every 8 hours as needed for pain for up to 7 days. TRELEGY ELLIPTA 200-62.5-25 mcg inhalation powder Inhale 1 puff as instructed once daily. (Patient not taking: Reported on 07/07/2025) mometasone (ELOCON) 0.1 % cream Apply to affected (more content not included)... [facility] 07-07-2025 History of Present illness Narrative CC: Patient presents with: Follow Up: UC right hip pain. Hurts to even lift leg from gas pedal to brake. No improvement. HPI Recording using ClickFacts software for draft documentation of the visit was discussed with the patient/authorized counter sales representative; all questions welcomed and answered. Patient/authorized counter sales representative agreed to proceed The patient is a 70-year-old male with right hip osteoarthritis, presenting for urgent care follow-up of right hip pain. Right Hip Pain: - Onset approximately one week ago, progressively worsening. - Initially evaluated in urgent care on 07/03. - Described as "terrible" pain, exacerbated by lifting the leg and ambulation. - Pain localized to the right lateral hip, with occasional radiation to the groin area. - Interferes with daily activities, including driving. - Nocturnal pain not reported; minimal discomfort when sitting and resting. - No new symptoms since Urgent Care visit - Denies previous history of hip pain. - Recent x-ray revealed moderate right hip osteoarthritis, bilateral degenerative changes, calcifications adjacent to the right ischial tuberosity, and bilateral enthesopathic changes. - Currently using diclofenac gel TID-QID with no significant relief. - Concerns about potential constipation from stronger analgesics. - Prefers to consult with orthopedics for possible injection therapy. Review of Systems See HPI PAST MEDICAL HISTORY Diagnosis Date Achilles tendinitis of both lower extremities 06/23/2020 Acute on chronic respiratory failure with hypoxia (HCC) 10/30/2022 Arthritis Asthma (HCC) CAD (coronary artery disease) 01/11/2012 COPD (chronic obstructive pulmonary disease) with chronic bronchitis (HCC) 10/07/2013 06/17/2014 XRL223% predicted. COVID-19 07/05/2022 DDD (degenerative disc disease), lumbar [...] 1966 VASCULAR SURGERY PROCEDURE ALLERGIES Levofloxacin MEDICATIONS diclofenac (VOLTAREN ARTHRITIS PAIN) 1 % topical gel Apply 2 g to affected area four times daily for 7 days. clopidogrel (PLAVIX) 75 mg tablet Take 1 tablet by mouth once daily. potassium chloride SR (MICRO-K) 10 mEq CR capsule Take 1 capsule by mouth two times a day. furosemide (LASIX) 40 mg tablet Take 1 tablet by mouth once daily as needed (swelling.). rosuvastatin (CRESTOR) 40 mg tablet Take 1 tablet by mouth once daily. Magnesium Oxide 500 mg magnesium tab Take 1 tablet by mouth once daily. ipratropium-albuterol (DUONEB) 0.5 mg-3 mg(2.5 mg base)/3 mL nebu Inhale 3 mL as instructed every 6 hours as needed. metoprolol succinate ER (TOPROL XL) 50 mg 24 hr tablet Take 1 tablet by mouth once daily. From [facility]. losartan (COZAAR) 50 mg tablet Take 1 tablet by mouth once daily. Per [facility]. isosorbide mononitrate ER (IMDUR) 30 mg 24 hr tablet Take 30 mg by mouth once daily. traMADol (ULTRAM) 50 mg tablet Take 1 tablet by mouth every 8 hours as needed for pain for up to 7 days. TRELEGY ELLIPTA 200-62.5-25 mcg inhalation powder Inhale 1 puff as instructed once daily. (Patient not taking: Reported on 07/07/2025) mometasone (ELOCON) 0.1 % cream Apply to affected area once daily. Rash of feet, lower legs. nystatin (MYCOSTATIN) 100,000 unit/mL suspension Take 5 mL by mouth four times daily. 1tsp swish in mouth for several minutes, then swallow (or expectorate) 4 times daily until gone. albuterol HFA (PROAIR HFA) 90 mcg/actuation inhaler Inhale 2 Puffs as instructed every 6 hours as needed for wheezing/shortness of breath. FAMILY HISTORY Problem Relation Age of Onset None Mother Coronary Artery Disease Father 79 stent placed Hypertension Brother Cancer Maternal Grandfather 70 pancreatic Heart disease Paternal Grandmother SOCIAL HISTORY[1] BP 138/72 Pulse 86 Wt 81.9 kg (180 lb 8.9 oz) SpO2 95% BMI 28.62 kg/m Physical Exam Vitals reviewed. Constitutional: Appearance: Normal appearance. Neurological: Mental Status: He is alert. DATA REVIEWED: Most recent imaging (07/03) Right Hip X-ray: - No acute findings - Degenerative changes noted bilaterally - Moderate right osteoarthritis - Calcifications adjacent to the right ischial tuberosity suggesting calcific tendinosis - Changes in bilateral iliac crests, bilateral greater trochanters, and bilateral ischial tuberosities Assessment/Plan 1. Acute right hip pain: Patient reports worsening acute right hip pain over the past week, with difficulty lifting the leg and ambulating. Differential diagnoses include bursitis, though cannot be confirmed by imaging. - Prescribed tramadol as needed for breakthrough pain - Advised to use caution due to possible drowsiness - Avoid driving until individual effects are known - Maintain adequate hydration to reduce constipation risk - Referred to orthopedic for possible injection or further management - Advised patient that oral NSAIDs are contraindicated due to concurrent clopidogrel therapy 2. Primary osteoarthritis of right hip: Moderate degenerative changes identified on recent hip radiographs. - See Acute right hip pain above for treatment/management plan - Prescribed tramadol for pain control - Continued use of diclofenac topical gel at patient s discretion 3. Calcific tendinitis of right hip: Imaging suggests possible calcific changes adjacent to the right ischial tuberosity. - See Acute right hip pain above for treatment/management plan Prescription instructions reviewed with patient as applicable. Potential red flag symptoms discussed with the patient. Reviewed appropriate action plan to take if red flag symptoms occur. Patient agreeable to treatment plan. Blanca Tilley APRN.HORTENCIA [1] Social History Tobacco Use Smoking status: Every Day Current packs/day: 0.50 Average packs/day: 0.5 packs/day for 41.1 years (20.5 ttl pk-yrs) Types: Cigarettes, Pipe Start date: 06/17/1984 Smokeless tobacco: Never Vaping Use Vaping status: Never Used Substance Use Topics Alcohol use: Yes Alcohol/week: 7.0 standard drinks of alcohol Types: 7 Standard drinks or equivalent per week Drug use: No Frequency: 2.0 times per week documented in this encounter 07-03-2025 History of Present illness Narrative Radiology Service Progress Note PATIENT NAME: Horace Henderson DATE OF SERVICE: July 03, 2025 TIME: 12:30 PM PATIENT IDENTITY VERIFICATION COMPLETED USING TWO (2) IDENTIFIERS: Name and Date of confirmed by patient verbally. FALL SCREENING: Has the patient had 2 falls in the last year or 1 fall with injury or currently using an Ambulatory Assistive Device (Walker, Cane, Wheelchair, Crutches, etc.)? No PATIENT GENDER DATA: Assigned male at PATIENT RELEVANT IMPLANT DATA REVIEWED: Yes PATIENT PRESENTS WITH AN IMPLANTABLE OR ATTACHED DESIGN ENG: No RADIOLOGY DEPARTMENT: General X-ray: Exam(s) Completed: Pelvis X-Ray: Pelvis with Hip Right PERIPHERAL IV DATA: Not applicable SIGNED BY: Ute Pak July 03, 2025 12:30 PM documented in this encounter 07-03-2025 Note HNO ID: [id number] Author: DAIN BRYANT Tech Service: ? Author Type: Resident Athletic Trainer Type: Progress Notes Filed: 07/03/2025 12:30 Note Text: Radiology Service Progress Note PATIENT NAME: Horace Henderson DATE OF SERVICE: July 03, 2025 TIME: 12:30 PM PATIENT IDENTITY VERIFICATION COMPLETED USING TWO (2) IDENTIFIERS: Name and Date of confirmed by patient verbally. FALL SCREENING: Has the patient had 2 falls in the last year or 1 fall with injury or currently using an Ambulatory Assistive Device (Walker, Cane, Wheelchair, Crutches, etc.)? No PATIENT GENDER DATA: Assigned male at PATIENT RELEVANT IMPLANT DATA REVIEWED: Yes PATIENT PRESENTS WITH AN IMPLANTABLE OR ATTACHED DESIGN ENG: No RADIOLOGY DEPARTMENT: General X-ray: Exam(s) Completed: Pelvis X-Ray: Pelvis with Hip Right PERIPHERAL IV DATA: Not applicable SIGNED BY: Ute Pak July 03, 2025 12:30 PM [facility] 07-03-2025 Note HNO ID: [id number] Author: PRATEEK MATOS APRN.GROUP HOME MANAGER Service: ? Author Type: Nurse Practitioner Type: Progress Notes Filed: 07/03/2025 12:59 Note Text: [facility]RG[facility] CARE [facility] Subjective Horace Henderson is a 70 year old male. Patient presents with: Pain: R hip pain x 3 days, pain is increasing, pain with lifting leg, trouble with daily duties due to pain HPI Nontoxic-appearing male presents urgent care chief complaint right hip pain. Duration of symptoms 3 days. Associated symptoms of right hip discomfort. States pain is exacerbated by movement. Improved by rest. Did try some Aleve. This helped minimally. No traumatic injuries. No saddle anesthesia or incontinence. No back pain. No radiculopathy. No instability. No redness or swelling. Past medical history prescription medications allergies reviewed Review of Systems Constitutional: Negative for chills, diaphoresis, fatigue and fever. HENT: Negative for congestion, ear discharge, ear pain, rhinorrhea, sinus pressure, sinus pain, sneezing and sore throat. Eyes: Negative for pain, discharge, redness, itching and visual disturbance. Respiratory: Negative for cough, chest tightness, shortness of breath and wheezing. Cardiovascular: Negative for chest pain. Gastrointestinal: Negative for abdominal pain, constipation, diarrhea, nausea and vomiting. Musculoskeletal: Positive for gait problem. Negative for back pain, joint swelling, neck pain and neck stiffness. Skin: Negative for rash. Neurological: Negative for dizziness, weakness and headaches. Objective BP 167/95 Pulse 93 Temp 36.6 ?C (97.8 ?F) Resp 22 Wt 83 kg (182 lb 15.7 oz) SpO2 94% BMI 29.00 kg/m? Physical Exam Constitutional: Appearance: Normal appearance. He is normal weight. HENT: Head: Normocephalic. Eyes: Conjunctiva/sclera: Conjunctivae normal. Cardiovascular: Rate and Rhythm: Normal rate. Pulmonary: Effort: Pulmonary effort is normal. Musculoskeletal: Cervical back: Normal range of motion. Legs: Comments: Discomfort with palpation highlighted area. No erythema edema. No evidence of bursitis. Skin: Findings: No rash. Neurological: General: No focal deficit present. Mental Status: He is alert and oriented to person, place, and time. Mental status is at baseline. {ASSESSMENT/PLAN: 1. Pain of right hip - ICD9: 719.45, ICD10: M25.551 - XR HIP GENERAL 3V PELV/AP/LAT RIGHT No acute findings noted on imaging. Degenerative changes noted bilaterally. Will treat for arthritis at this time. Follow-up with PCP as scheduled. Patient was educated on supportive therapies. Patient will follow up with primary care provider as needed. Patient was instructed to immediately proceed to emergency room for any new, worsening, or symptoms lasting longer than anticipated. The patient's clinical presentation is otherwise unremarkable at this time. Based on exam and clinical finding, the patient is stable for discharge. Plan of care was discussed with patient. Patient verbalizes understanding and agrees to plan of care. This note was generated using Nettle software. It may contain errors in wording, punctuation, or spelling. Prateek Matos APRN.GROUP HOME MANAGER History and Record Review Clinical information obtained from an independent historian. History obtained from or confirmed by: parent. External record(s) reviewed: prior outpatient record. Disposition The patient was discharged. OTC Medications were advised: Procedures [facility] 07-03-2025 History of Present illness Narrative Images from the original note were not included. U[facility] CARE MARYJANE Henderson is a 70 year old male. Patient presents with: Pain: R hip pain x 3 days, pain is increasing, pain with lifting leg, trouble with daily duties due to pain HPI Nontoxic-appearing male presents urgent care chief complaint right hip pain. Duration of symptoms 3 days. Associated symptoms of right hip discomfort. States pain is exacerbated by movement. Improved by rest. Did try some Aleve. This helped minimally. No traumatic injuries. No saddle anesthesia or incontinence. No back pain. No radiculopathy. No instability. No redness or swelling. Past medical history prescription medications allergies reviewed Review of Systems Constitutional: Negative for chills, diaphoresis, fatigue and fever. HENT: Negative for congestion, ear discharge, ear pain, rhinorrhea, sinus pressure, sinus pain, sneezing and sore throat. Eyes: Negative for pain, discharge, redness, itching and visual disturbance. Respiratory: Negative for cough, chest tightness, shortness of breath and wheezing. Cardiovascular: Negative for chest pain. Gastrointestinal: Negative for abdominal pain, constipation, diarrhea, nausea and vomiting. Musculoskeletal: Positive for gait problem. Negative for back pain, joint swelling, neck pain and neck stiffness. Skin: Negative for rash. Neurological: Negative for dizziness, weakness and headaches. Objective BP 167/95 Pulse 93 Temp 36.6 C (97.8 F) Resp 22 Wt 83 kg (182 lb 15.7 oz) SpO2 94% BMI 29.00 kg/m Physical Exam Constitutional: Appearance: Normal appearance. He is normal weight. HENT: Head: Normocephalic. Eyes: Conjunctiva/sclera: Conjunctivae normal. Cardiovascular: Rate and Rhythm: Normal rate. Pulmonary: Effort: Pulmonary effort is normal. Musculoskeletal: Cervical back: Normal range of motion. Legs: Comments: Discomfort with palpation highlighted area. No erythema edema. No evidence of bursitis. Skin: Findings: No rash. Neurological: General: No focal deficit present. Mental Status: He is alert and oriented to person, place, and time. Mental status is at baseline. {ASSESSMENT/PLAN: 1. Pain of right hip - ICD9: 719.45, ICD10: M25.551 - XR HIP GENERAL 3V PELV/AP/LAT RIGHT No acute findings noted on imaging. Degenerative changes noted bilaterally. Will treat for arthritis at this time. Follow-up with PCP as scheduled. Patient was educated on supportive therapies. Patient will follow up with primary care provider as needed. Patient was instructed to immediately proceed to emergency room for any new, worsening, or symptoms lasting longer than anticipated. The patient's clinical presentation is otherwise unremarkable at this time. Based on exam and clinical finding, the patient is stable for discharge. Plan of care was discussed with patient. Patient verbalizes understanding and agrees to plan of care. This note was generated using Nettle software. It may contain errors in wording, punctuation, or spelling. Prateek Matos APRN.GROUP HOME MANAGER History and Record Review Clinical information obtained from an independent historian. History obtained from or confirmed by: parent. External record(s) reviewed: prior outpatient record. Disposition The patient was discharged. OTC Medications were advised: Procedures documented in this encounter 06-16-2025 Radiology Diagnostic study note [facility] Imaging Services [address] [place] [id number] Lung Screening MR#: [id number] Acct: [id number] Name: HORACE HENDERSNO Rep #: [id number] : 1955 M 69 From: Bassam Chacon MD PCP: Dr. George Vázquez MD Status: R EG CLI Study:Low Dose CT Lung Screening Date of Exam : 06/14/25 Exam# [id number] Ordering Dr: Vangie Roberts NP PARKING WORKER-C PROCEDURE: LOW DOSE CT LUNG SCREENING 06/14/2025 REASON FOR EXAM: SMOKER COPD. TECHNIQUE: LOW DOSE CT LUNG SCREENING Coronal and Sagittal reconstruction series were provided. One or more dose reduction techniques were used (e.g., Automated exposure control, adjustment of the mA and/or kV according to patient size, use of iterative reconstruction technique). REFERENCE LINK: [employer] Lung-RADS RADIATION DOSE SUMMARY: CTDlvol: 2.39 mGy DLP: 74.75 mGycm COMPARISON: Prior study dated November 27, 2024. FINDINGS: PULMONARY NODULES: (Only nodules >3mm are reported) Nodules described below are on series 1 unless otherwise specified. Pulmonary Nodules: No suspicious nodules are seen. Hardware:None Lymph Nodes:No suspicious lymph nodes. Heart and Vasculature:Status post CABG.Atherosclerotic calcifications of the thoracic aorta. Thoracic aorta and pulmonary arteries have normal contours; noncontrast technique limits evaluation. Coronary Artery Calcifications: Present Lungs and Airways: Hyperinflation. Moderate degree of emphysematous changes. No suspicious nodules are seen. Pleura:No pleural effusion. Upper Abdomen:Unremarkable Bones:Degenerative changes of the thoracic spine. CT/Low Dose CT Lung Screening IMPRESSION: No suspicious nodules are seen. Coronary artery calcification (CAC) is is present Lung-RADS Category: 2 BENIGN (BASED ON IMAGING FEATURES OR INDOLENT BEHAVIOR). RECOMMEND 12-MONTH SCREENING LDCT. Other Significant Findings: Reading Location: [id number] CC: JAMARCUS Roberts; Dr. George Vázquez MD ~ Energy Specialist: Signed [facility] 05-28-2025 Instructions George Vázquez MD - 05/28/2025 [...] review all the medicines you take, even [id number] medicines. As you get older, the way [...] certain medical conditions. documented in this encounter 05-28-2025 Note HNO ID: [id number] Author: GEORGE VÁZQUEZ MD Service: ? Author Type: Physician Type: Progress Notes Filed: 05/28/2025 14:56 Note Text: Tim Henderson is a 69 year old male. ERIN Vu was doing reasonably well. He had a rash on his feet, and lower legs for several months. His digital editor sent off his toenail, but this came [...] Adult) Pulse 72 Ht 169.2 cm (5' 6.6") Wt 78.7 kg (173 lb 8 oz) [...] diagnosis) - See (more content not included)... [facility] 05-28-2025 History of Present illness Narrative Subjective Horace Henderson is a 69 year old male. ERIN Vu was doing reasonably well. He had a rash on his feet, and lower legs for several months. His digital editor sent off his toenail, but this came [...] Adult) Pulse 72 Ht 169.2 cm (5' 6.6") Wt 78.7 kg (173 lb 8 oz) [...] wellness note. 2. 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 - ICD9: 414.01, [...] PCP - General (Internal Medicine) Blanca Tilley, DEWAYNE.GROUP HOME MANAGER as Paediatric Surgeon (Internal Medicine) Outside specialists seen: [place] Zarate [...] Adult) Pulse 72 Ht 169.2 cm (5' 6.6") Wt 78.7 kg (173 lb 8 oz) [...] associated health risks documented in this encounter 05-28-2025 Note HNO ID: [id number] Author: GEORGE VÁZQUEZ MD Service: ? Author [...] PCP - General (Internal Medicine) Blanca Tilley APRN.GROUP HOME MANAGER as Paediatric Surgeon (Internal Medicine) Outside specialists seen: [place] Zarate [...] Adult) Pulse 72 Ht 169.2 cm (5' 6.6") Wt 78.7 kg (173 lb 8 oz) [...] on alcohol intake and associated health risks [facility] 05-05-2025 Evaluation note Diagnosis Onset Date Resolution ALMONTE (dyspnea on exertion) acute May 05, [...] sleep apnea) suspected May 05, 2025 12:55pm [facility] Work Phone: 1(676) 199-474107-07-2025 Evaluation note* Diagnosis Onset Date Resolution Status Admit Date ALMONTE (dyspnea on exertion) acute May 05, 2025 12:55pm Essential hypertension acute 2024 12:55pm Presence of stent in coronary artery October, acute May 05, 2025 1 2:55pm Thrush, oral acute May 05 12:55pm 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 May 05, 2025 1 2:55pm COPD (chronic obstructive pulmonary disease) chronic May 05 12:55pm Hyperlipidemia chronic May 05, 2025 12:55pm Smoking greater than 30 pack years chronic May 05, 2025 1 2:55pm MIKE (obstructive sleep apnea) suspected May 05, 2025 1 2:55pm Degenerative joint disease (DJD) of hip acute July 21, 2025 7:45am Rupture of right rectus femoris tendon acute July 21, 2025 7:45am [facility] [employer] Work Phone: 1(226) 520-796104-03-2025 Telephone encounter Note* Telephone Encounter - George Vázquez MD - 01/30/2025 5:10 PM EDT The following approved medication requests have been transmitted electronically. Requested Prescriptions Signed Prescriptions Disp Refills buPROPion SR (WELLBUTRIN SR) 150 mg 12 hr tablet 180 tablet 1 Sig: Take 1 tablet by mouth two times a day. Authorizing Provider: GEORGE VÁZQUEZ MD 04-03-2025 Miscellaneous Notes* Telephone Encounter - George Vázquez MD - 01/30/2025 5:10 PM EDT The following approved medication requests have been transmitted electronically. Requested Prescriptions Signed Prescriptions Disp Refills buPROPion SR (WELLBUTRIN SR) 150 mg 12 hr tablet 180 tablet 1 Sig: Take 1 tablet by mouth two times a day. Authorizing Provider: GEORGE VÁZQUEZ MD * Telephone Encounter - Evelin Richey LPN - 01/30/2025 2:12 PM EDT Pharmacy is asking for 90 day supply, Last appt: 01/08/2025 Annual Wellness, 05/28/2025 Evelin Richey LPN documented in this encounter04-03-2025 Telephone encounter Note * Telephone Encounter - Evelin Richey LPN - 01/30/2025 2:12 PM EDT Pharmacy is asking for 90 day supply, Last appt: 01/08/2025 Annual Wellness, 05/28/2025 Evelin Richey LPN 03-12-2025 NoteHNO ID: [id number] Author: GEORGE VÁZQUEZ MD Service: ? Author Type: Physician Type: Progress Notes Filed: 01/08/2025 16:22 Note Text: This note was created using [employer]. Subjective Horace Henderson is a 69 year old male. He's had a productive cough with green phlegm, and increased dyspnea on exertion for the past 1.5 to 2 weeks. He had no upper respiratory infection symptoms, fever, or chills. He saw his cashier host/hostess Dr. Malave today, who ordered a chest [...] Pitting Edema present. Lympha (more content not included)...[facility]03-12-2025 History of Present illness Narrative* George Vázquez MD - 01/08/2025 3:49 PM EDT This note was created using NoteWriter. Subjective Horace Henderson is a 69 year old male. He's had a productive cough with green phlegm, and increased dyspnea on exertion for the past 1.5 to 2 weeks. He had no upper respiratory infection symptoms, fever, or chills. He saw his cardiologistDr. Malave today, who ordered a chest X-ray and advised PCP follow up. He sees Dr. Orellana for chronic obstructive pulmonary disease. His oxygen level drops to 88% with activity, but he was not usinghis portable O2. He used his nocturnal oxygen. [...] HR SUSTAINED-RELEASE 4. 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- ICD9: 414.01, ICD10: I25.10 Stable, per Dr. Malave. 5. Kidney insufficiency - ICD9: 593.9, ICD10: N28.9 Check labs today. 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 January 08, 2025 10:35am Atherosclerosis of coronary artery acute January 20, 2025 2:42pm ALMONTE (dyspnea on exertion) acute January 20, 2025 2:42pm Essential hypertension acute [facility] 2024 2:42pm Presence of stent in coronar [...] May 05, 2025 12:55pm Essential hypertension acute [place] [facility] 2024 12:55pm Presence of stent in coronar [...] apnea) suspec tabitha May 05, 2025 12:55pm [facility] [employer] Work Phone: 1(906) 128-394803-12-2025 Evaluation note* Diagnosis Onset Date Resolution Status Admit Date Cough productive of purulent sputum acute January 08, 2025 10:35am Essential hypertension acute [facility] 2024 10:35am Leg edema acute January 08 10:35am 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 January 08, 2025 10:35am Atherosclerosis of coronary artery acute January 20, 2025 2:42pm ALMONTE (dyspnea on exertion) acute January 20, 2025 2:42pm Essential hypertension acute [facility] 2024 2:42pm Presence of stent in coronar [...] May 05, 2025 12:55pm Essential hypertension acute [place] 2024 12:55pm Presence of stent in coronar [...] apnea) suspec tabitha May 05, 2025 12:55pm [facility] Work Phone: 1(301) 781-847103-12-2025 Telephone encounter Note* Telephone Encounter - Rebel Sarah RN - 01/08/2025 11:50 AM EDT Pt called and is scheduled today with Dr Vázquez at 340 pm. Rebel Sarah RN 03-12-2025 Miscellaneous Notes* Telephone Encounter - Rebel Sarah RN - 01/08/2025 11:50 AM EDT Pt called and is scheduled today with Dr Vázquez at 340 pm. Rebel Sarah RN * Telephone Encounter - Evelin Richey LPN - 01/08/2025 11:43 AM EDT Attempted to call Patient, no answer, wanting to schedule an appt to be evaluated by Dr. Vázquez.Evelin Richey LPN * Telephone Encounter - Ihsan Christensen RN - 01/08/2025 11:20 AM EDT Patient reports he saw Dr. Malave at [facility] today. Dr. Malave did a EKG and CXR. Reports Dr. Malave advised him he was going to send CXR to pcp as it appears pt may have pneumonia and need an AB. Pt reports he has productive green cough, and SOB. No other symptoms. Please advise patient. [phone] documented in this encounter03-12-2025 Telephone encounter Note * Telephone Encounter - Evelin Richey LPN - 01/08/2025 11:43 AM EDT Attempted to call Patient, no answer, wanting to schedule an appt to be evaluated by Dr. Vázquez.Evelin Richey LPN 03-12-2025 Radiology Diagnostic study note [facility] Imaging Services [address] [place] [address] [id number] Chest PA and Lateral MR#: [id number] Acct: [id number] Name: HORACE HENDERSNO Rep #: [id number] : 1955 M 69 From: Jeanne Amanda MD PCP: Dr. George Vázquez MD Status: R EG CLI Study:Chest PA and Lateral Date of Exam: 01/08/25 Exam# [id number] Ordering Dr: Ihsan Malave MD EXAM: XR [...] Lateral IMPRESSION: Suggestion of COPD. Reading [facility] CC: Dr. Carrillo Malave MD; Dr. George Vázquez MD ~ Energy Specialist: Signed [facility]03-12-2025 Telephone encounter Note* Telephone Encounter - Ihsan Christensen RN - 01/08/2025 11:20 AM EDT Patient reports he saw Dr. Malave at [facility] today. Dr. Malave did a EKG and CXR. Reports Dr. Malave advised him he was going to send CXR to pcp as it appears pt may have pneumonia and need an AB. Pt reports he has productive green cough, and SOB. No other symptoms. Please advise patient. [phone] 02-10-2025 NoteHNO ID: [id number] Author: VENITA QUEZADA MA Service: ? Author Type: Boat Pilot Type: Progress Notes Filed: 12/09/2024 16:56 Note [...] Venita Quezada MA December 09, 2024 4:54 [facility]02-10-2025 History of Present illness Narrative* Venita Quezada [...] 09, 2024 4:54 PM documented in this encounter02-10-2025 NotePatient Outreach (NETNAV) HORACE HENDERSON ([id number]) 1955 M Date Time Provider Department 12/09/24 [...] Achilles tendonitis. Date Reviewed: 09/12/2024 Reviewed by: Evelin Richey LPN - Fully Assessed Reason for Visit: Population Health Navigation Outreach [[id number]] Cmt: Maryjane/Workbench/ACO Prescriptions as of 12/11/2024 - nystatin (MYCOSTATIN) [...] 05/24/2023 Encounter Status:Closed by VENITA QUEZADA on 12/09/24[facility] 10-28-2024 [facility] Medical Records Department [address] [place] [id number] Discharge Summary 10/28/24 1643 MR#: [id number] Acct: [id number] Name: HORACE HENDERSON Rep #: [id number] : 1955 69 From: Vicente Andrews DO PCP: Dr. George Vázquez MD Status:ADM GONZÁLEZ Location: [place] [address] Providers Date of Admission: 10/27/24 Date of [...] Patient is a 69-year-old male who presented [facility] ED on 10/27/2024 after a syncopal episode [...] hypertension, hyperlipidemia, sinus tachycardia ??? Follows with [place] [facility]. Last stenting was done at [facility] in 2021. Patient reports no recent chest pain. Repeat echo ordered as noted above. Troponin normal on admit and EKG with no ST changes. Continue home Plavix and statin. Continue home Toprol and nitrate, and holding Lasix and losartan as noted above. 5. Severe COPD with nocturnal hypoxia ??? Follows with [facility]. 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 November 05 12:55pm Hyperlipidemia chronic October 12:55pm 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 November 05 12:55pm Cough productive of purulent sputum acute January 08, 2025 10:35am Essential hypertension [facility] [facility] 2024 10:35am Leg edema acute January 08 10:35am 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 January 08, 2025 10:35am [facility] Work Phone: 1(307) 808-199412-29-2024 Evaluation note* Diagnosis Onset Date Resolution Status Admit Date Acute kidney insufficiency acute October 27, 2024 2:17pm Forehead laceration resolved Decem 2023 2:17pm Sinus tachycardia resolved Decembe r 2023 2:17pm Syncope resolved October 27, 2024 2:17pm Atherosclerosis of coronary artery of chippewa-cree heart without angina pectoris inactive October 27, [...] 10:35am Essential hypertension acute [facility] 2024 10:35am Leg edema acute January 08 10:35am 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 Author Type: Registered Nurse Type: Progress Notes Filed: 09/24/2024 17:05 Note Text: ED Follow-Up Note Provider Action / FYI: 09/17/24 [facility] ED OON, Reason for ED Visit: Sob 09/24/24 Spk with Pt he noted he has contacted Leyla Roberts [facility] Pulmonology had no return call he then scheduled Appt with Dr. Orellana to establish care mid October, and has Appt for PFT's at [facility] beginning of Oct 2024 Pt noted did not receive any new Rx for Daliresp, or added Spiriva Respimat. Pt wanted to discuss a medication plan with Pulmonology first . Provided Pt with [facility] Pulmonology/ PCP Phone number for a possible sooner ED follow up Appt to address changes in medications made by [facility] ED. Pt noted appreciation. Pt denies CP, [...] seen in the Emergency Department (ED) Location: [facility] Date: 09/17/24 Reason for ED Visit: SOB [...] provided with appropriate counseling: Yes Based on vp production, the following disposition is advised: No symptoms or symptoms present, not severe. Routed to: No Action Needed KAROL Education Provided this Outreach: No Darlyn Moreno RN September 24, 2024 3:16 [facility]11-26-2024 History of Present illness Narrative* Darlyn Moreno RN - 09/24/2024 2:33 PM EST ED Follow-Up Note Provider Action / FYI: 09/17/24 [facility] ED OON, Reason for ED Visit: Sob 09/24/24 Spk with Pt he noted he has contacted Leyla Roberts [facility] Pulmonology had no return call he then scheduled Appt with Dr. Orellana to establish care mid October, and has Appt for PFT's at [facility] of Oct 2024 Pt noted did not receive any new Rx for Daliresp, or added Spiriva Respimat. Pt wanted to discuss amedication plan with Pulmonology first . Provided Pt with [facility] Pulmonology/ PCP Phone number for a possible sooner ED follow up Appt to address changes in medications made by [facility] ED. Pt noted appreciation. Pt denies CP, [...] seen in the Emergency Department (ED) Location: [facility] Date: 09/17/24 Reason for ED Visit: SOB [...] provided with appropriate counseling: Yes Based on vp production, the following disposition is advised: No symptoms or symptoms present, not severe. Routed to: No Action Needed KAROL Education Provided this Outreach: No Darlyn Moreno RN September 24, 2024 3:16 PM documented in this encounter11-26-2024 NotePatient Outreach ([facility]) HORACE HENDERSON ([id number]) 1955 Date Time Provider Department 09/24/24 DARLYN MORENO [facility] During your visit today, we recorded the following information about you: Darlyn Moreno RN 09/24/2024 5:05 PM Signed ED Follow-Up Note Provider Action / FYI: 09/17/24 [facility] ED OON, Reason for ED Visit: Sob 09/24/24 Spk with Pt he noted he has contacted Leyla Roberts [facility] Pulmonology had no return call he then scheduled Appt with Dr. Orellnaa to establish care mid October, and has Appt for PFT's at [facility] beginning of Oct 2024 Pt noted did not receive any new Rx for Daliresp, or added Spiriva Respimat. Pt wanted to discuss a medication plan with Pulmonology first . Provided Pt with [facility] Pulmonology/ PCP Phone number for a possible sooner ED follow up Appt to address changes in medications made by [facility] ED. Pt noted appreciation. Pt denies CP, [...] seen in the Emergency Department (ED) Location: [facility] Date: 09/17/24 Reason for ED Visit: SOB [...] provided with appropriate counseling: Yes Based on vp production, the following disposition is advised: No symptoms or symptoms present, not severe. Routed to: No Action Needed KAROL Education Provided this Outreach: No Darlyn Moreno RN September 24, 2024 3:16 PM Allergies As of Date: 09/24/2024 Noted Allergy Reaction LEVOFLOXACIN 06/01/2020 14 - Other: See Comments Comments: Tachycardia. Achilles tendonitis. Date Reviewed: 09/12/2024 Reviewed by: Evelin Richey LPN - Fully Assessed Reason for [...] [E78.5] 08/04/2012 Perforated diver (more content not included)...[facility] 09-23-2024 NoteHNO ID: [id number] Author: DARLYN MORENO RN Service: ? Author Type: Registered Nurse Type: Progress Notes Filed: 09/23/2024 15:14 Note Text: ED Follow-Up Note Provider Action / FYI: Location: [facility] OON Date: 09/17/24 Reason for ED Visit: [...] Darlyn Moreno RN September 23, 2024 12:17 [facility]11-25-2024 History of Present illness Narrative* Darlyn Moreno RN - 09/23/2024 12:16 PM EST ED Follow-Up Note Provider Action / FYI: Location: [facility] OON Date: 09/17/24 Reason for ED Visit: [...] seen in the Emergency Department (ED) Location: [facility] O Date: 09/17/24 Reason for ED Visit: [...] 20, 2024 11:29 AM documented in this encounter11-22-2024 NoteHNO ID: [id number] Author: DARLYN MORENO RN Service: ? Author [...] seen in the Emergency Department (ED) Location: [facility] O Date: 09/17/24 Reason for ED Visit: [...] Darlyn Moreno RN September 20, 2024 11:29 [facility]11-22-2024 NotePatient Outreach ([facility]) HORACE HENDERSON ([id number]) 1955 Date Time Provider Department 09/20/24 DARLYN MORENO [facility] During your visit today, [...] seen in the Emergency Department (ED) Location: [facility] OON Date: 09/17/24 Reason for ED Visit: [...] Follow-Up Note Provider Action / FYI: Location: [facility] OON Date: 09/17/24 Reason for ED Visit: [...] therapy Medication Changes: yes Call completed by: TOMMIE Patient seen in ED: Out of Network ED Contact made with Patient: No, left message. Darlyn Moreno RN September 23, 2024 12:17 PM Allergies As of Date: 09/20/2024 Noted Allergy Reaction LEVOFLOXACIN 06/01/2020 14 - Other: See Comments Comments: Tachycardia. Achilles tendonitis. Date Reviewed: 09/12/2024 Reviewed by: Evelin Richey LPN - Fully Assessed Reason for [...] tablet Take 1 ta (more content not included)...[facility]11-20-2024 Telephone encounter Note* Telephone Encounter - Evelin Richey LPN - 09/18/2024 3:22 PM EST Referral faxed to Dr. Orellana. Evelin Richey LPN 11-20-2024 Miscellaneous Notes* Telephone Encounter - Evelin Richey LPN - 09/18/2024 3:22 PM EST Referral faxed to Dr. Orellana. Evelin Richey LPN * Telephone Encounter - George [...] calling for referral to see a new Appeals Examiner for COPD. Dr. Orellana. . He was seeing Dr. Hall who is no longer @ [facility]. Debbie Portillo RN documented in this encounter11-20-2024 Telephone encounter Note * Telephone Encounter - [...] CONSULT TO PULMONARY MEDICINE George Vázquez MD 11-20-2024 Telephone encounter Note* Telephone Encounter - Debbie Portillo RN - 09/18/2024 2:32 PM EST Patient calling for referral to see a new Appeals Examiner for COPD. Dr. Orellana. . He was seeing Dr. Hall who is no longer @ [facility]. Debbie Portillo RN 11-20-2024 Telephone encounter Note* Telephone Encounter - Evelin Richey LPN - 09/18/2024 2:19 PM EST Spoke to JEROMY/Maryjane, pharmacy is processing RX for Duoneb, Patient has active RX, 1 prescription on file for Duoneb. Evelin Richey LPN 11-20-2024 Miscellaneous Notes* Telephone Encounter - Evelin Richey LPN - 09/18/2024 2:19 PM EST Spoke to JEROMY/Maryjane, pharmacy is processing RX for Duoneb, Patient has active RX, 1 prescription on file for Duoneb. Evelin Richey LPN documented in this encounter11-14-2024 Instructions* Patient Instructions* George Vázquez MD - 09/12/2024 4:48 PM EST Take an extra metoprolol tablet to slow heart rate. documented in this encounter11-14-2024 NoteHNO ID: [id number] Author: GEORGE VÁZQUEZ MD Service: ? Author Type: Physician Type: Progress Notes Filed: 09/12/2024 16:57 Note Text: This note was created using [employer]. Subjective Horace Henderson is a 69 year old male. I saw him for COPD exacerbation one week ago, and he was seen in the week before that. He continues to feel vaguely ill. His heart rate has been staying elevated when he checked his oximetry at home. He was finishing doxycycline and just got a call from his behavior support specialist that he will start Augmentin 2 [...] Coronary artery disease invol (more content not included)...[facility]11-14-2024 History of Present illness Narrative* George Vázquez MD - 09/12/2024 4:23 PM EST This note was created using NoteWriter. Subjective [...] and just got a call from his behavior support specialist that hewill start Augmentin 2 days [...] PRO BNP 2. 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- ICD9: 414.01, ICD10: [...] PANEL George Vázquez MD documented in this encounter11-11-2024 NotePatient Outreach ([facility]) HORACE HENDERSON ([id number]) 1955 M Date Time Provider Department 09/09/24 JAYLEEN CARTER During your visit today, we recorded the following information about you: Allergies As of Date: 09/09/2024 Noted Allergy Reaction LEVOFLOXACIN 06/01/2020 14 - Other: See Comments Comments: Tachycardia. Achilles tendonitis. Date Reviewed: 08/30/2024 Reviewed by: Prateek Matos APRN.GROUP HOME MANAGER - Fully Assessed Visit Diagnosis:Tobacco abuse [Z72.0] Order(s):[facility]SULT [facility] [4309844] Order #: [id number]: 1 FUTURE Prescriptions as of 09/12/2024 - [...] reflux disease [K21.9] 05/24/2023 Encounter Status:Closed by [employer], PRODUSER on 09/12/24[facility] 09-04-2024 NoteHNO ID: [id number] Author: GEORGE VÁZQUEZ MD Service: ? Author Type: Physician Type: Progress Notes Filed: 09/04/2024 16:10 Note Text: This note was created using [employer]. Subjective Horace Henderson is a 69 year [...] Coronary artery disease involvi (more content not included)...[facility]11-06-2024 History of Present illness Narrative* George Vázquez MD - 09/04/2024 3:35 PM EST This note was created using [employer]. Subjective Horace Henderson is a 69 year [...] MG TABLET 2. 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- ICD9: 414.01, ICD10: I25.10 - Stable. If not better, see his behavior support specialist at [place]. George Vázquez MD documented in this encounter11-06-2024 Telephone encounter Note * Telephone Encounter - Evelin Richey LPN - 09/04/2024 2:32 PM EST Patient notified, appt scheduled. Evelin Richey LPN 11-06-2024 Miscellaneous Notes* Telephone Encounter - Evelin Richey LPN - 09/04/2024 2:32 PM EST Patient notified, appt scheduled. Evelin Richey LPN * Telephone Encounter - Blanca Tilley APRN.CNP - 09/04/2024 1:54 PM EST Needs appointment Blanca Tilley APRN.CNP * Telephone Encounter - Adele Jarvis LPN [...] uses [facility].Please advise. documented in this encounter11-06-2024 Telephone encounter Note * Telephone Encounter - Blanca Tilley APRN.CNP - 09/04/2024 1:54 PM EST Needs appointment Blanca Tilley APRN.GROUP HOME MANAGER 11-06-2024 Telephone encounter Note* Telephone Encounter - Adele [...] another round of antibiotics. Patient uses [facility] [place].Please advise. 11-01-2024 History of Present illness Narrative* Sotero Landa RT(R) - 08/30/2024 11:00 AM EDT Radiology [...] PATIENT PRESENTS WITH AN IMPLANTABLE OR ATTACHED DESIGN ENG: No RADIOLOGY DEPARTMENT: General X-ray: Exam(s) Completed: Chest X-Ray PERIPHERAL IV DATA: Not applicable SIGNED BY: RT Paula(R) August 30, 2024 10:56 AM documented in this encounter11-01-2024 History of Present illness Narrative* Prateek Matos APRN.GROUP HOME MANAGER - 08/30/2024 10:42 AM EDT Subjective HPI [...] increase in SOB, wheeze, x weeks Finished [facility] 08-29 PAST MEDICAL HISTORY Diagnosis Date Achilles tendinitis of both lower extremities 06/23/2020 Acute on chronic respiratory failure with hypoxia (HCC) 10/30/2022 Arthritis Asthma CAD (coronary artery disease) 01/11/2012 Chronic bronchitis (HCC) 10/07/2013 06/17/2014 GDP729% predicted. COPD (chronic obstructive pulmonary disease) (HCC) [...] SVG to diagonal. STEPHENS to LAD. [facility] CC CORONARY STENT 09/29/2021 Biotronik 2.5x22 [...] plan ofcare. This note was generated using [employer]ettle software. It may contain errors in wording, punctuation,or spelling. Prateek Matos APRN.HORTENCIA documented in this encounter10-28-2024 Telephone encounter Note * Telephone Encounter - Ari Anglin MA - 08/26/2024 9:04 AM EDT [facility] is there any subsitute for thrush, requesting another medication? Please return call. Ari Anglin MA 10-28-2024 Miscellaneous Notes* Telephone Encounter - Ari Anglin MA - 08/26/2024 9:04 AM EDT [facility] is there any subsitute for thrush, requesting another medication? Please return call. Ari Anglin MA documented in this encounter10-27-2024 History of Present illness Narrative* Blanche Nevarez APRN.HORTENCIA - 08/25/2024 10:10 AM EDT CC: Patient [...] disease) 01/11/2012 Chronic bronchitis (HCC) 10/07/2013 06/17/2014 GRK951% predicted. COPD (chronic obstructive pulmonary disease) (HCC) [...] 10/14/1996 SVG to diagonal. STEPHENS to LAD. [facility] CC CORONARY STENT 09/29/2021 Biotronik 2.5x22 [...] symptoms occur. Patient agreeable to treatment plan. Blanche Nevarez APRN.HORTENCIA documented in this encounter10-23-2024 History of Present illness Narrative* Darlyn Moreno [...] more often than normal? No Based on vp production, the following disposition is advised: No symptoms or symptoms present, not severe. Routed to: No Action Needed KAROL Education Provided this Outreach: No Darlyn Moreno RN August 21, 2024 2:00 PM documented in this encounter10-14-2024 History of Present illness Narrative* Blanca Tilley, TECHNICAL SUPPORT SPECIALIST.GROUP HOME MANAGER - 08/12/2024 8:53 AM EDT CC Patient presents with: severe cramping in my sides now and again HPI Horace Henderson is a 69 year old male who presents with cramping pain for a few months, possibly longer. Location: lower anterior ribs on both sides, does not radiate Described as: "cramping" like a charley horse. Pain is intermittent. Aggravating factors: nothing he can pin point. Seems to occur mostly when he is at rest driving in the car otherwise no certain time of day. Does not occur at night or wake him up from sleep. Alleviating factors: nothing Associated symptoms: he has a chronic cough secondary to COPD, pain possibly starts after a "coughing fit". Denies: chest pain, worsening of chronic SOB, [...] Acute on chronic respiratory failure with hypoxia ([facility]) 10/30/2022 Arthritis Asthma CAD (coronary artery disease) 01/11/2012 Chronic bronchitis ([facility]) 10/07/2013 06/17/2014 PIO837% predicted. COPD (chronic obstructive pulmonary disease) ([facility]) COVID-19 07/05/2022 DDD (degenerative disc disease), lumbar [...] 10/14/1996 SVG to diagonal. STEPHENS to LAD. [facility]. CC CORONARY STENT 09/29/2021 Biotronik 2.5x22 [...] Patient agreeable to treatment plan. Blanca Tilley APRN.GROUP HOME MANAGER documented in this encounter09-27-2024 Telephone encounter Note * Telephone Encounter - eJssie Bernabe LPN - 07/26/2024 8:12 AM EDT Spoke with pt gave information provided. Pt voices understanding. 09-27-2024 Miscellaneous Notes* Telephone Encounter - Jessie Bernabe [...] George Vázquez MD * Telephone Encounter - Evelin Richey LPN - 07/23/2024 8:18 AM EDT [...] primary care: 07/22/2024 Please advise. Thank you. Evelin Richey LPN. documented in this encounter09-26-2024 Telephone encounter Note * Telephone Encounter - George Vázquez MD - 07/25/2024 7:11 PM EDT He can get blood clots, diabetes, infections, heart failure, tendon rupture, etc. Etc. Etc. Not recommended for frequent or regular use. 09-25-2024 History of Present illness Narrative* Soraya Mendieta MA - 07/24/2024 3:12 PM EDT POPULATION HEALTH NAVIGATION OUTREACH Action/[facility] Community Monitoring Navigation Pool/CDM Discuss/Due for: Follow [...] reach patient: Left message Navigation Signature: Soraya Mendieta MA July 24, 2024 3:12 PM * Soraya Mendieta MA - 07/24/2024 1:29 PM EDT POPULATION HEALTH NAVIGATION OUTREACH Action/[facility] Community Monitoring Navigation Pool/CDM Discuss/Due for: Follow [...] message MyChart message sent Navigation Signature: Soraya Mendieta MA July 24, 2024 1:29 PM * Darlyn Moreno RN - 07/24/2024 1:04 PM EDT CDM Telephonic Outreach Provider Mirza/GUNJAN Routed updates [...] more often than normal? Yes Based on vp production, the following disposition is advised: No symptoms or symptoms present, not severe. Routed to: Navigation Team: PCP visit within 48 hours KAROL Education Provided this Outreach: No Darlyn Moreno RN July 24, 2024 1:11 PM documented in this encounter09-24-2024 Telephone encounter Note * Telephone Encounter - Xi Lakhani LPN [...] to review and advise. Xi Lakhani LPN 09-24-2024 Telephone encounter Note* Telephone Encounter - Kimberlee Craft LPN - 07/23/2024 2:19 PM EDT Left a message for pt to call the office and ask to speak to a nurse. Kimberlee Craft LPN 09-24-2024 Telephone encounter Note* Telephone Encounter - George [...] A Refill not appropriate George Vázquez MD 09-24-2024 Telephone encounter Note* Telephone Encounter - Evelin Richey LPN - 07/23/2024 8:18 AM EDT [...] primary care: 07/22/2024 Please advise. Thank you. Evelin Richey LPN. 09-24-2024 Telephone encounter Note* Telephone Encounter - Phil [...] Mitchell MA July 23, 2024 8:11 AM 09-24-2024 Miscellaneous Notes* Telephone Encounter - Phil Mitchell [...] 23, 2024 8:11 AM documented in this encounter09-12-2024 History of Present illness Narrative* Hedy Sprague RN - 07/11/2024 12:49 PM EDT [facility] Telephonic Outreach Provider Action/FYI 2nd attempt Contacted for: Routine Telephonic Outreach Contact made with patient: No, left message. Hedy Sprague RN July 11, 2024 12:56 PM documented in this encounter09-11-2024 History of Present illness Narrative* Hedy Sprague RN - 07/10/2024 3:08 PM EDT [facility] Telephonic Outreach Provider Action/FYI 1st attempt Contacted for: Routine Telephonic Outreach Contact made with patient: No, left message. Hedy Sprague RN July 10, 2024 3:10 PM documented in this encounter08-21-2024 History of Present illness Narrative* Darlyn Moreno RN - 06/19/2024 4:02 PM EDT [facility] Telephonic Outreach Provider Action/FYI Instructed to call PCP with any changes in condition Pt verbalized understanding and appreciation for call Contacted for: Routine Telephonic Outreach Contact made with patient: No, left message. Darlyn Moreno RN June 19, 2024 4:04 PM * Darlyn Moreno RN - 06/18/2024 4:52 PM EDT [facility] Telephonic Outreach Provider Action/FYI Left a message to verify symptom status, instructed to contact PCP for condition changes and needs. Contacted for: Routine Telephonic Outreach Contact made with patient: No, left message. Darlyn Moreno RN June 18, 2024 4:53 PM documented in this encounter08-16-2024 Telephone encounter Note * Telephone Encounter - Elsy Moreno LPN - 06/14/2024 10:11 AM EDT Prescription Refill Information Patient stated that is going on an 8 day cruise and is getting all his meds ready for his trip to [facility] The patient has been identified by name [...] Moreno LPN June 14, 2024 10:11 AM 08-16-2024 Miscellaneous Notes* Telephone Encounter - Elsy Moreno LPN - 06/14/2024 10:11 AM EDT Prescription Refill Information Patient stated that is going on an 8 day cruise and is getting all his meds ready for his trip to [facility] The patient has been identified by name [...] 14, 2024 10:11 AM documented in this encounter07-29-2024 History of Present illness Narrative* George Vázquez MD - 05/27/2024 12:46 PM EDT This note was created using NewsW[employer]. Subjective Horace Henderson is a 68 year old male. He was doing well in general. He had chronic Achilles tendonitis and had temporary symptomatic relief from prednisone prescribed by his digital editor in the past.He was leaving for travel next month, and requested a prescription to help. His other conditions were stable. Most medications are from his cashier host/hostess and behavior support specialist. He was taking metoprolol, but was [...] (Temporal) Resp 18 Ht 170.2 cm (5' 7") Wt 80.7 kg (178 lb) BMI 27.88 [...] wellness note. 2. 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- ICD9: 414.01, ICD10: I25.10 Stable. - CLOPIDOGREL 75 MG TABLET - METOPROLOL SUCCINATE ER 50 MG TABLET,EXTENDED RELEASE 24 HR 3. Hyperlipidemia, unspecified hyperlipidemia type - ICD9: 272.4, ICD10: E78.5 - Control undetermined, due for labs - He had labs done at [facility]. Request. - EZETIMIBE 10 MG TABLET 4. [...] - General (Internal Medicine) Mauro Lay APRN, GROUP HOME MANAGER, [facility] (Cardiology) Janine Hall MD, [facility]. Chad Zarate DPM, Podiatry. [facility]. Medical/Family history review Reviewed and updated [...] (Temporal) Resp 18 Ht 170.2 cm (5' 7") Wt 80.7 kg (178 lb) BMI 27.88 [...] not ready to quit documented in this encounter07-29-2024 Instructions* Patient Instructions* George Vázquez MD - 05/27/2024 12:37 PM EDT SHINGLES VACCINES X 2. RSV VACCINE X 1. documented in this encounter07-24-2024 History of Present illness Narrative* Darlyn Moreno RN - 05/22/2024 11:13 AM EDT CDM Telephonic Outreach Provider Action/FYI CDM: Chronic Bronchitis, Pt denies symptom changes, concerns or needs, Pt follows with Dr. Hall Pulmonology [facility], uses Albuterol inhaler 2-3 x daily [place], Goals, SDH updated Contacted for: Engagement Contact made with patient: Yes Patient identified by name and date of . Discussed care with patient Outcomes: Patient switched from [facility] to telephone outreach Are you experiencing any new or worsening symptoms you need to talk about today? No Based on vp production, the following disposition is advised: No symptoms or symptoms present, not severe. Routed to: No Action Needed KAROL Education Provided this Outreach: No Darlyn Moreno RN May 22, 2024 3:55 PM documented in this encounter07-17-2024 Telephone encounter Note * Telephone Encounter - Evelin Richey LPN - 05/15/2024 1:17 PM EDT Called [facility], Patient has an active RX for Omeprazole, [...] primary care: 05/27/2024 Please advise. Thank you. Evelin Richey LPN. 07-17-2024 Miscellaneous Notes* Telephone Encounter - Evelin Richey LPN - 05/15/2024 1:17 PM EDT [...] primary care: 05/27/2024 Please advise. Thank you. Evelin Richey LPN. documented in this encounter06-28-2024 History of Present illness Narrative* Darlyn Moreno [...] 25, 2024 7:58 PM documented in this encounter05-02-2024 Telephone encounter Note * Telephone Encounter - Phil Mitchell MA - 02/29/2024 11:00 AM EDT Requested Prescriptions Pending Prescriptions Disp Refills omeprazole (PRILOSEC) 20 mg capsule 90 capsule 3 Sig: Take 1 capsule by mouth once daily. Date of last office visit in primary care: 11/23/2023 Date of next office visit in primary care: 02/29/2024 Please advise. Thank you. Phil Mitchell MA. 05-02-2024 Miscellaneous Notes* Telephone Encounter - Phil Mitchell MA - 02/29/2024 11:00 AM EDT Requested Prescriptions Pending Prescriptions Disp Refills omeprazole (PRILOSEC) 20 mg capsule 90 capsule 3 Sig: Take 1 capsule by mouth once daily. Date of last office visit in primary care: 11/23/2023 Date of next office visit in primary care: 02/29/2024 Please advise. Thank you. Phil Mitchell MA. documented in this encounter05-02-2024 Telephone encounter Note * Telephone Encounter - [...] Please advise. Thank you. Phil Mitchell MA. 05-02-2024 Miscellaneous Notes* Telephone Encounter - Phil Mitchell [...] you. Phil Mitchell MA. documented in this encounter03-26-2024 History of Present illness Narrative* Darlyn Moreno RN - 01/23/2024 4:27 PM EDT CDM Telephonic Outreach Provider Action/FYI CDM: Chronic Bronchitis Left a message to verify symptom status, instructed to contact PCP for condition changes and needs. Contacted for: Engagement Contact made with patient: No, left message. Darlyn Moreno RN January 23, 2024 4:27 PM documented in this encounter02-08-2024 History of Present illness Narrative* Darlyn Moreno [...] 06, 2023 12:12 PM documented in this encounter12-20-2023 History of Present illness Narrative* Sheryl Hassan [...] 18, 2023 8:05 AM documented in this encounter12-06-2023 Miscellaneous Notes* Telephone Encounter - Evelin Richey LPN - 10/04/2023 3:29 PM EST Horace our office did receive your refill request however, a new prescription for Bufesonide-Formoterol (Symbicort) was sent to [facility], 10/02/2023. Please check with your pharmacy. Evelin Richey LPN documented in this encounter12-02-2023 Miscellaneous Notes* Telephone Encounter - Marleni Ernandez - 09/30/2023 11:18 AM EST Requested Prescriptions Pending Prescriptions Disp Refills budesonide-formoterol (SYMBICORT) 160-4.5 mcg/actuation inhaler Sig: Inhale 2 Puffs as instructed two times a day. RAI 05/24/2023 NOV 11/21/2023 Marleni Ernandez MA documented in this [facility]11-09-2023 Miscellaneous Notes* Telephone Encounter - Kimberlee Craft LPN - 09/07/2023 4:51 PM EST Records show a valid rx at the pharmacy. Kimberlee Craft LPN documented in this [facility]10-27-2023 Miscellaneous Notes* Telephone Encounter - Phil Mitchell Ma - 08/25/2023 1:23 PM EDT RAI: 05/24/2023 Last refill: 05/24/2023 QTY: 60 / 18 g Refills: 5 documented in this [facility]09-05-2023 Miscellaneous Notes* Telephone Encounter - Evelin Richey LPN - 07/04/2023 3:49 PM EDT Left message on vm, RX for Duoneb written 05/24/2023 for 60 each, 5 refills. Please check with your pharmacy. Evelin Richey LPN documented in this [facility]08-23-2023 Miscellaneous Notes* Telephone Encounter - Evelin Richey LPN - 06/21/2023 9:13 AM EDT Horace, our office did receive your refill request for Ipratropium-Albuterol (Duoneb) however, a new prescription was sent to [facility] on 05/24/2023 with 5 refills. Check with your pharmacy, they should have the prescription on file waiting for you to call to fill. Evelin Richey LPN documented in this encounter08-08-2023 History of Present illness Narrative* Darlyn Moreno [...] 01, 2023 12:09 PM documented in this encounter07-31-2023 Nurse Note* Allyssa Thomas RN - 05/29/2023 1:06 PM EDT Area to left buttock is without warmth, the edges are well approximated and the incision line is clean, dry and intact. No dressing was in place. Reviewed pathology with patient. Advised that if he has any further questions or concerns, please call our office. Allyssa Thomas RN documented in this encounter07-26-2023 Instructions* Patient Instructions* George Vázquez MD - 05/24/2023 4:12 PM EDT Have you ever planned for future healthcare decisions with a power of assistant district attorney, living will, or advance directives? Yes. Have you shared those records with your doctor? No and No. Please bring a copyto your next appointment or email to [email or web address] Advance Directive Forms Advanced Directives Forms (Arabic) FORMS: [email or web address]://author.[email or web address]/[email or web address]-zicw-ksbbj-vf-zcgmihrq.pdf INFORMATIONAL BROCHURE: https://my.[facility].org/-/scassets/files/org/patients-visitors/inform ation/advance-directives.ashx?la=en Advance Directives (non-Arabic) FORMS: https://my.[facility].org/patients/information/lxmzgxa-hqjdqnvjk-bzefx/adva nce-directives#forms-tab Please bring completed forms to your next appointment or email them to . Patient Resources How to Get Started Talking with Loved Ones about your Wishes at the End of Life https://theconversationproject.org/wp-content/uploads//ConversationProjec d-NegqfKafwfacUqu-Srwfdpl.pdf How to Navigate Conversations with your Care Team around your Preferences [email or web address] documented in this encounter07-26-2023 History of Present illness Narrative* George Vázquez MD - 05/24/2023 4:09 PM EDT This note was created using NewsWhipriter. Subjective Horace Henderson is a 67 year old male. He was doing well. Stress test this morning was negative. GERD was controlled, and he was only taking omeprazole every other day. One month supply of nebulizersolution was requested, normally prescribed by his behavior support specialist. Review of Systems Constitutional: Negative for [...] 96 Resp 18 Ht 169.2 cm (5' 6.6") Wt 78.9 kg (174 lb) SpO2 94% [...] J96.21 Stable. 5. 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- ICD9: 414.01, ICD10: [...] all Concerns with sexual function:Not at all [place] anxious, stressed, angry, irritable, lonely, isolated, or [...] MD as PCP - General (Internal Medicine) [place], Darlyn Champagne RN as Instrumentation Chemist (Internal Medicine) Farooq Hall MD, [place] [facility]. Mauro Lay APRN, Heart Group. Chad Zarate, Podiatry, [place]. Jessie Nava MD, Surgery. Omega Javier MD, [...] 100/64 Pulse 96 Resp 18 Ht 5' 6.6" (1.69m) Wt 174 lb (78.9kg) SpO2 94% BMI 27.57 kg/(m^2). Visual acuity (required for Welcome to Medicare): Right: 20/30 Left: 20/ 30 Both: 20/30 Hearing Evaluation: within normal limits Assessment/Plan - Counseled on healthy diet and regular exercise - Smoking cessation counseling - Fall avoidance - Vaccines recommended COVID-19 and Shingrix at pharmacy - Depression screening documented in this encounter07-14-[address] [facility]03-28-2023 Miscellaneous Notes* Telephone Encounter - Donna Casanova LPN - 01/24/2023 2:16 PM EDT Labs completed at [facility]. BMP to pcp. In scanned labs. Please review. View External Lab - BMP,LFT,lipids [ID [id number]] documented in this encounter03-22-2023 History of Present illness Narrative* George Vázquez MD - 01/18/2023 3:59 PM EDT This note was created using NewsWhipriter. Subjective Patient presents with: 2 month follow-up Horace Henderson is a 67 year old male. He was doing reasonably well. His hypertension was high, but he had stopped furosemide due to urinary frequency and the need to drive for work. He also stoppedpowdered potassium due to cost. Dysphagia was resolved at this time. He saw his cashier host/hostess last month and blood pressure was normal. [...] METABOLIC PNL 2. 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- ICD9: 414.01, ICD10: [...] 20) George Vázquez MD documented in this encounter02-14-2023 Miscellaneous Notes* Telephone Encounter - Evelin Richey LPN - 12/13/2022 12:08 PM EST Advised Patient to make sure pharmacy is running through correct insurance, if it is Medicare it has to be run as Medical. Advised Patient, he is due for Covid booster. Evelin Richey LPN * Telephone Encounter - Vanda Song Pss - 12/13/2022 11:07 AM EST Patient said he tried to refill his Duoneb and was told to contact his provider's office. Please review and advise patient if there is an issue with his rx. He also wants to know if he is due for another COVID booster. Please advise at [phone]. documented in this encounter02-06-2023 Miscellaneous Notes* Telephone Encounter - Evelin Hunt Kaiden MILTON - 12/05/2022 6:[address] Rosamaria Vu wrote a new prescription for Duoneb 11/10/2022 with 3 refills. Please check with [facility]. Evelin Richey LPN documented in this encounter01-24-2023 Instructions* Patient Instructions* RENEE Gonzalez - 11/22/2022 3:17 PM EST R.I.C.E. The general care of your injury includes the following: Resting, Icing, Compressing and Elevating the injured area. Remember this as "RICE." REST: Limit the use of the injured [...] as with a splint, cast or an mirza bandage. Compression decreases swelling and improves comfort. [...] pillows when lying down. documented in this encounter01-24-2023 History of Present illness Narrative* Darlyn Adams [...] 22, 2022 2:49 PM documented in this encounter01-24-2023 History of Present illness Narrative* RENEE Gonzalez - 11/22/2022 2:32 PM EST This note was created using NewsWhipriter. Subjective Horace Henderson is a 67 year [...] Acute on chronic respiratory failure with hypoxia ([facility]) 10/30/2022 Arthritis Asthma CAD (coronary artery disease) 01/11/2012 Chronic bronchitis (HCC) 10/07/2013 06/17/2014 REG042% predicted. COPD (chronic obstructive pulmonary disease) (HCC) [...] right upper extremity. Radial pulse 2+. 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 Skin: General: Skin is warm and [...] ER evaluation. RENEE Gonzalez documented in this encounter01-12-2023 Miscellaneous Notes* Telephone Encounter - Kimberlee Zhanglencho Craft LPN - 11/10/2022 8:57 AM EST [...] you. Kimberlee Craft LPN documented in this encounter12-28-2022 Miscellaneous Notes* Telephone Encounter - Evelin Richey LPN - 10/26/2022 4:31 PM EST Patient has Duoneb RX on file at [facility]/[place], pharmacy will get ready for Patient to pickup. Evelin Richey LPN documented in this encounter12-15-2022 Miscellaneous Notes* Telephone Encounter - Evelin Richey LPN - 10/13/2022 9:54 AM EST [...] medication: Not applicable Please advise. Thank you. Evelin Richey LPN documented in this encounter11-28-2022 Miscellaneous Notes* Telephone Encounter - Phil Mitchell Ma - 09/26/2022 2:30 PM EST ARI: 07/28/2022 Last refill: 06/20/2022 QTY: 10 vials Refills: 2 documented in this [facility]11-18-2022 Miscellaneous Notes* Telephone Encounter - Rhea Omer Ma - 09/16/2022 11:06 AM EST Refills at pharmacy documented in this [facility]11-08-2022 Miscellaneous Notes* Telephone Encounter - Evelin Richey LPN - 09/06/2022 8:29 AM EST Pharmacy has RX written 06/20/2022 for Duoneb on file, will get ready for Patient to pickup. Evelin Richey LPN documented in this [facility]10-24-2022 Miscellaneous Notes* Telephone Encounter - Rhea Omer Ma - 08/22/2022 11:25 AM EDT Requesting to local [facility] documented in this [facility]10-17-2022 Miscellaneous Notes* Telephone Encounter - Evelin Richey LPN - 08/15/2022 8:13 PM EDT Called [facility], Patient has refills on Duoneb RX. Pharmacy will get ready for Patient Evelin Richey LPN documented in this [facility]09-29-2022 History of Present illness Narrative* George Vázquez MD - 07/28/2022 4:33 PM EDT This note was created using NewsWhipriter. Subjective Patient presents with: ED Follow-up Horace [...] with pleuritic chest pain and went to [facility] on[facility]15[facility]22. CTA of the chest CT brain, and CT cervical spine showed no acute disease. ACS was ruled out. He was discharged with short term [place]. He was better. Review of Systems Constitutional: [...] consulation George Vázquez MD documented in this encounter09-16-2022 History of Present illness Narrative* Michelle Alonzo PA-C - 07/15/2022 9:30 AM EDT This note was created using NewsWhipriter. Subjective Horace Henderson is a 67 year [...] until the . He was seen at [place] ED and all they did was a [...] disease) 01/11/2012 Chronic bronchitis (HCC) 10/07/2013 06/17/2014 DUW136% predicted. COPD (chronic obstructive pulmonary disease) (HCC) [...] 10/14/1996 SVG to diagonal. [facility] 09/29/2021 Biotronik [...] HISTORY OF 01/05/2006 [facility] REVISE MEDIAN N/CARPAL TUNNEL [...] provide. He refused to go back to [facility] as he states they were rude to him and did not really let him tell them what happened. I did get him to agree to go to [facility] however. He states his girlfriend will drive him. I did call report to [place].. Michelle Alonzo PA-C documented in this encounter09-06-2022 History of Present illness Narrative* Edson Ibrahim APRN.GROUP HOME MANAGER - 07/05/2022 11:27 AM EDT Horace Henderson [...] disease) 01/11/2012 Chronic bronchitis (HCC) 10/07/2013 06/17/2014 VKD188% predicted. COPD (chronic obstructive pulmonary disease) (HCC) [...] 10/14/1996 SVG to diagonal. STEPHENS to LAD. [facility] CC CORONARY STENT 09/29/2021 Biotronik 2.5x22 [...] OF 01/05/2006 stents cardiac x 6, [facility], 2 year intervals REVISE MEDIAN N/CARPAL TUNNEL [...] analgesia. - Discussed expected course of illness Edson Ibrahim APRN.GROUP HOME MANAGER Molnupiravir Eligibility and Patient Discussion Formulary Restriction Criteria: Adult outpatients 18 years [...] alternatives. The patient was provided electronically withthe "Fact Sheet for Patients, Parents and Caregivers". The patient was also instructed that in addition to the treatment with molnupiravir, he/she should continue to self-isolate and use infection control measures (e.g., wear mask, isolate, social distance, avoid sharing personal items, clean and disinfect "high touch" surfaces, and frequent handwashing) according to CDC guidelines. The patient stated understanding and gave verbal consent to proceeding with molnupiravir treatment. Edson Ibrahim APRN.CNP July 05, 2022 11:25 AM documented in this encounter09-06-2022 Instructions* Patient Instructions* Edson Ibrahim APRN.CNP - 07/05/2022 11:27 AM EDT ASSESSMENT/PLAN: 1. [...] analgesia. - Discussed expected course of illness Edson Ibrahim APRN.GROUP HOME MANAGER Fact Sheet for Patients And Caregivers Emergency [...] healthcare provider to share your information with [employer],then your healthcare provider will report your use of molnupiravir during to [employer]. by calling or Pregnancyreporting.[employer].Primo1D. For individuals who are sexually active with [...] molnupiravir for the treatment of adults with iwjj-di-gwzeqyow coronavirus disease 2019 (COVID-19) with positive results [...] virus. COVID-19 illnesses have ranged from very jaur-mk-kkbiav, including illness resulting in . While information [...] is an investigational medicine used to treat nubc-hy-tkvnnsnj COVID-19 in adults: with positive results of [...] serious illnesses Are taking any medicines (prescription, ejtp-ewt-aoujolm, vitamins, or herbal products). How do I [...] to treat people with COVID-19. Go to https://www.fda.gov/enrjolsnx-gafikqixdlol-jhc-response/ygp-hcvhaizfzcqamjf-btn- policy-framework/fizwkccdw-bcr-tjdyskpeflpqc for more information. It is your choice [...] to FDA MedWatch at www.fda.gov/medwatch or call 1-866-VAQ-8246 ( ). How should I store molnupiravir? Store molnupiravir capsules at room temperature between 68 F to 77 F (20 C to 25 C). Keep molnupiravir and all medicines out of the reach of children and pets. How can I learn more about COVID-19? Ask your healthcare provider. Visit www.cdc.gov/COVID19 Contact your local or state public health department. Call [employer] at (toll free in the [place] Visit www.molnupiravir.Primo1D What Is an Emergency Use Authorization (EUA)? The [place] FDA has made molnupiravir available under an emergency access mechanism called an Emergency Use Authorization (EUA) The EUA is supported by a [place] of Health and Human Service (HHS) declaration that circumstances exist to justify emergency use of drugs and biological products during the COVID-19 pandemic. Molnupiravir for the treatment of anzd-xw-gleoxysh COVID-19 in adults with positive results of [...] used under the EUA). For patent information: www.[employer].Primo1D/research/patent Copyright 2020 [employer] [place], [place] and its affiliates. All rights reserved. [id number] Issued: 10/21/2021 documented in this encounter09-06-2022 Miscellaneous Notes* Telephone Encounter - Rebel Sarah RN - 07/05/2022 10:26 AM EDT [...] him in a container. documented in this encounter09-05-2022 Instructions* Patient Instructions* Sharon Zamora PA-C - [...] care. Sharon Zamora PA-C documented in this encounter09-05-2022 History of Present illness Narrative* Sharon Zamora [...] disease) 01/11/2012 Chronic bronchitis (HCC) 10/07/2013 06/17/2014 OSM282% predicted. COPD (chronic obstructive pulmonary disease) ([facility]) DDD (degenerative disc disease), lumbar 12/13/2013 Diverticulitis [...] kg (172 lb 6.4 oz) SpO2 96% BMI 27.00 kg/m . Vital signs reviewed by this [...] which included preparing to see the patient, vxkx-op-yugm patient care, completing clinical documentation, performing a medically appropriate examination, counseling and educating the patient/family/caregiver, and ordering medications, tests,or procedures. documented in this encounter08-31-2022 Miscellaneous Notes* Telephone Encounter - Phil Mitchell Ma - 06/29/2022 10:32 AM EDT RAI: 05/09/2022 Last refill: med update. documented in this encounter08-29-2022 Miscellaneous Notes* Telephone Encounter - Phil Mitchell Ma - 06/27/2022 12:48 PM EDT RAI: 05/09/2022 Last refill: 11/21/2021 QTY: 180 Refills: 3 documented in this encounter08-22-2022 Miscellaneous Notes* Telephone Encounter - Evelin Richey LPN - 06/20/2022 2:55 PM EDT [...] medication: Not applicable Please advise. Thank you. Evelin Richey LPN documented in this encounter08-01-2022 Miscellaneous Notes* Telephone Encounter - Evelin Richey LPN - 05/30/2022 12:54 PM EDT [...] medication: Not applicable Please advise. Thank you. Evelin Richey LPN documented in this encounter07-27-2022 History of Present illness Narrative* Josh Reveles [...] treviño name is Darlyn Moreno RN your Plater Apprentice [facility] I am reaching out today because I [...] 25, 2022 3:37 PM documented in this encounter07-18-2022 Miscellaneous Notes* Telephone Encounter - Kimberlee Craft LPN - 05/16/2022 10:13 AM EDT Pt called and requests referral to gastro and all information be faxed to Dr. Javier at [facility]. Done. Kimberlee Craft LPN documented in this encounter07-12-2022 Miscellaneous Notes* Telephone Encounter - Kimberlee Craft LPN - 05/10/2022 4:09 PM EDT Gifty with [facility] called for last office visit/labs/procedures done. Identifiedpt with name and date of . They received referral and demographics sheet. Faxed above to [phone]. Kimberlee Craft LPN documented in this encounter06-27-2022 History of Present illness Narrative* Josh Reveles RN - 04/25/2022 2:01 PM EDT INSIGHT CDM TELEPHONIC OUTREACH Provider Action/FYI: Call to Pt left a message to verify COPD/ Bronchitis status or needs. Contact made with patient: No - Left message Sondralo my name is Darlyn Moreno RN your Plater Apprentice from the I am callingtoday for your bi-weekly check [...] 25, 2022 2:01 PM documented in this encounter06-16-2022 Miscellaneous Notes* Telephone Encounter - Evelin Richey LPN - 04/14/2022 1:51 PM EDT [...] BP: 12/22/2021 124/77 Please advise. Thank you. Evelin Richey LPN documented in this encounter06-08-2022 History of Present illness Narrative* Josh Reveles RN - 04/06/2022 1:24 PM EDT INSIGHT CDM TELEPHONIC OUTREACH Provider Action/FYI: Call to Pt left a message to verify COPD/ Bronchitis status or needs. Contact made with patient: No - Left message Qian my name is Darlyn Moreno RN your Plater Apprentice from the I am callingtoday for your bi-weekly check [...] Henderson. This is Darlyn Moreno RN your Plater Apprentice from the . I am calling to check in with you concerning the MyChart questionnaire you have been receiving from me. I will call you again tomorrow and am looking forward to speaking with you. (Plater Apprentice enters next day in "next patient outreach") Darlyn Moreno RN April 04, 2022 3:54 PM documented in this encounter05-23-2022 Miscellaneous Notes* Telephone Encounter - Phil Mitchell [...] advise. Phil Mitchell Ma documented in this encounter05-23-2022 Miscellaneous Notes* Telephone Encounter - Phil Mitchell [...] pharmacy. Phil Mitchell Ma documented in this [facility]05-02-2022 History of Present illness Narrative* Josh Reveles RN - 02/28/2022 3:32 PM EDT inSight CDM Engagement Provider Action/FYI: Call to Pt left a vm to verify COPD or other symptoms and needs. Contact Made with Patient: No, first attempt, left message. Qian Willettis. This is Darlyn Moreno RN your Plater Apprentice from the . I am calling to check in with you concerning the MyChart questionnaire you have been receiving from me. I will call you again and am looking forward to speaking with you. (Plater Apprentice enters next day in "next patient outreach") Darlyn Moreno RN February 28, 2022 3:33 PM documented in this encounter04-08-2022 History of Present illness Narrative* Josh Reveles RN - 02/04/2022 3:28 PM EDT inSight CDM Engagement Provider Action/FYI: Call to Pt left a vm to verify COPD or other symptoms and needs. Provided Insight Monitoring questionnaire location and reminder. Contact Made with Patient: No, first attempt, left message. Qian Horace Ihsan [place]. This is Darlyn Moreno RN your Plater Apprentice from the . I am calling to check in with you concerning the MyChart questionnaire you have been receiving from me. I will call you again tomorrow and am looking forward to speaking with you. (Plater Apprentice enters next day in "next patient outreach") Darlyn Moreno RN February 04, 2022 3:28 PM documented in this encounter03-25-2022 History of Present illness Narrative* Josh Reveles RN - 01/21/2022 2:28 PM EDT PRIMARY CARE COORDINATION QUICK NOTE Provider Action/FYI Insight Questionnaire resent via smart phone Patient identified by name and date . 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 chippewa-cree heart without angina pectoris chronic COPD (chronic obstructive pulmonary disease) chronic Hyperlipidemia chronic Hypertension [facility] Work Phone: [phone] Evaluation note* Diagnosis Onset Date Resolution Status Presence of stent in coronary artery October, acute 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 chippewa-cree heart without angina pectoris chronic COPD (chronic obstructive pulmonary disease) chronic Hyperlipidemia chronic Hypertension chronic Nocturnal hypoxia chronic Smoking greater than 30 pack years chronic 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 Presence of stent in coronary artery October, acute 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 [place] heart without angina pectoris chronic COPD (chronic obstructive pulmonary disease) chronic Hyperlipidemia chronic Hypertension [facility] Work Phone: 1(113) 163-514401-01-2022 Evaluation note* Diagnosis Onset Date Resolution Status Presence of stent in coronary artery October, acute 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 [place] heart without angina pectoris chronic COPD (chronic obstructive pulmonary disease) chronic Hyperlipidemia chronic Hypertension chronic [id number] acute Stage 3 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 [facility] Work Phone: 1(492) 209-370701-01-2022 Evaluation note* Diagnosis Onset Date Resolution Status Presence of stent in coronary artery October, acute Syncope acute Atherosclerosis of coronary artery of [place] heart without angina pectoris chronic COPD (chronic obstructive pulmonary disease) chronic Hyperlipidemia chronic Postprandial epigastric pain chronic Nocturnal hypoxia chronic Solid nodule of lung greater than 8 mm in diameter chronic 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 Shortness of breath on exertion acute Stage 3 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 [facility] Work Phone: 1(395) 463-305303-02-2021 History of Present illness Narrative* Sheryl Hassan (Rt), Tech - 12/29/2020 12:50 PM EST Radiology Service [...] 29, 2020 12:51 PM documented in this encounter01-12-2017 History of Past illness Narrative* Problem Noted Date Resolved Date Essential hypertension 11/10/2016 7 Tobacco abuse 11/06/2015 11/15/2016 Lumbar disc displacement without myelopathy 060 03/201404/17/2018 Lumbar radiculopathy 12/13/2013 04/17/2018 Primary localized osteoarthrosis, lower leg 03/201404/29/2015 Knee 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 11/04/2013 04/29/2015 Perforated diverticulum of large intestine 08/2010/27/2012 Sciatica 06/21/2012 04/29/2015 Diverticulitis 01/09/2014 documented as of this encounter (statuses as of 01/21/2022) 01-12-2017 History of Past illness Narrative* Problem Noted [...] of this encounter (statuses as of 02/04/2022) 01-12-2017 History of Past illness Narrative* Problem Noted [...] of this encounter (statuses as of 02/23/2022) 01-12-2017 History of Past illness Narrative* Problem Noted [...] of this encounter (statuses as of 02/28/2022) 01-12-2017 History of Past illness Narrative* Problem Noted [...] of this encounter (statuses as of 03/21/2022) 01-12-2017 History of Past illness Narrative* Problem Noted [...] of this encounter (statuses as of 03/21/2022) 01-12-2017 History of Past illness Narrative* Problem Noted [...] of this encounter (statuses as of 04/06/2022) 01-12-2017 History of Past illness Narrative* Problem Noted [...] of this encounter (statuses as of 04/14/2022) 01-12-2017 History of Past illness Narrative* Problem Noted [...] of this encounter (statuses as of 04/21/2022) 01-12-2017 History of Past illness Narrative* Problem Noted [...] of this encounter (statuses as of 04/25/2022) 01-12-2017 History of Past illness Narrative* Problem Noted [...] of this encounter (statuses as of 05/10/2022) 01-12-2017 History of Past illness Narrative* Problem Noted [...] of this encounter (statuses as of 05/16/2022) 01-12-2017 History of Past illness Narrative* Problem Noted [...] of this encounter (statuses as of 05/24/2022) 01-12-2017 History of Past illness Narrative* Problem Noted [...] of this encounter (statuses as of 05/25/2022) 01-12-2017 History of Past illness Narrative* Problem Noted [...] of this encounter (statuses as of 05/30/2022) 01-12-2017 History of Past illness Narrative* Problem Noted [...] of this encounter (statuses as of 06/20/2022) 01-12-2017 History of Past illness Narrative* Problem Noted [...] of this encounter (statuses as of 06/27/2022) 01-12-2017 History of Past illness Narrative* Problem Noted [...] of this encounter (statuses as of 06/29/2022) 01-12-2017 History of Past illness Narrative* Problem Noted [...] of this encounter (statuses as of 07/04/2022) 01-12-2017 History of Past illness Narrative* Problem Noted [...] of this encounter (statuses as of 07/05/2022) 01-12-2017 History of Past illness Narrative* Problem Noted [...] of this encounter (statuses as of 07/05/2022) 01-12-2017 History of Past illness Narrative* Problem Noted [...] of this encounter (statuses as of 07/15/2022) 01-12-2017 History of Past illness Narrative* Problem Noted [...] of this encounter (statuses as of 07/28/2022) 01-12-2017 History of Past illness Narrative* Problem Noted [...] of this encounter (statuses as of 08/16/2022) 01-12-2017 History of Past illness Narrative* Problem Noted [...] of this encounter (statuses as of 08/22/2022) 01-12-2017 History of Past illness Narrative* Problem Noted [...] of this encounter (statuses as of 08/03/2022) 01-12-2017 History of Past illness Narrative* Problem Noted [...] of this encounter (statuses as of 09/06/2022) 01-12-2017 History of Past illness Narrative* Problem Noted [...] of this encounter (statuses as of 09/16/2022) 01-12-2017 History of Past illness Narrative* Problem Noted [...] of this encounter (statuses as of 09/26/2022) 01-12-2017 History of Past illness Narrative* Problem Noted [...] of this encounter (statuses as of 10/13/2022) 01-12-2017 History of Past illness Narrative* Problem Noted Date Resolved Date Essential hypertension 11/10/2016 7 Tobacco abuse 11/06/2015 11/15/2016 Lumbar disc displacement without myelopathy 060 03/201404/17/2018 Lumbar radiculopathy 12/13/2013 04/17/2018 Primary localized osteoarthrosis, lower leg 01/0 03/201404/29/2015 Knee 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 11/04/2013 04/29/2015 Perforated diverticulum of large intestine 08/2010/27/2012 Sciatica 06/21/2012 04/29/2015 Diverticulitis 01/09/2014 documented as of this encounter (statuses as of 10/19/2022) 01-12-2017 History of Past illness Narrative* Problem Noted [...] of this encounter (statuses as of 11/02/2022) 01-12-2017 History of Past illness Narrative* Problem Noted [...] of this encounter (statuses as of 11/10/2022) 01-12-2017 History of Past illness Narrative* Problem Noted [...] of this encounter (statuses as of 11/11/2022) 01-12-2017 History of Past illness Narrative* Problem Noted [...] of this encounter (statuses as of 11/22/2022) 01-12-2017 History of Past illness Narrative* Problem Noted [...] of this encounter (statuses as of 12/06/2022) 01-12-2017 History of Past illness Narrative* Problem Noted [...] of this encounter (statuses as of 12/13/2022) 01-12-2017 History of Past illness Narrative* Problem Noted [...] of this encounter (statuses as of 01/19/2023) 01-12-2017 History of Past illness Narrative* Problem Noted Date Resolved Date Essential hypertension 11/10/2016 7 Tobacco abuse 11/06/2015 11/15/2016 Lumbar disc displacement without myelopathy 06/0 03/201404/17/2018 Lumbar radiculopathy 12/13/2013 04/17/2018 Primary localized osteoarthrosis, lower leg 03/201404/29/2015 Knee 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 11/04/2013 04/29/2015 Perforated diverticulum of large intestine 08/2010/27/2012 Sciatica 06/21/2012 04/29/2015 Diverticulitis 01/09/2014 documented as of this encounter (statuses as of 01/31/2023) 01-12-2017 History of Past illness Narrative* Problem Noted [...] of this encounter (statuses as of 05/25/2023) 01-12-2017 History of Past illness Narrative* Problem Noted [...] of this encounter (statuses as of 05/29/2023) 01-12-2017 History of Past illness Narrative* Problem Noted [...] of this encounter (statuses as of 06/07/2023) 01-12-2017 History of Past illness Narrative* Problem Noted [...] of this encounter (statuses as of 06/21/2023) 01-12-2017 History of Past illness Narrative* Problem Noted [...] of this encounter (statuses as of 07/05/2023) 01-12-2017 History of Past illness Narrative* Problem Noted [...] of this encounter (statuses as of 08/25/2023) 01-12-2017 History of Past illness Narrative* Problem Noted [...] of this encounter (statuses as of 09/08/2023) 01-12-2017 History of Past illness Narrative* Problem Noted [...] of this encounter (statuses as of 10/02/2023) 01-12-2017 History of Past illness Narrative* Problem Noted [...] of this encounter (statuses as of 10/03/2023) 01-12-2017 History of Past illness Narrative* Problem Noted [...] of this encounter (statuses as of 10/05/2023) 01-12-2017 History of Past illness Narrative* Problem Noted Date Diagnosed Date Resolved Date Essential hypertension 11/10/201611/15 Tobacco abuse 11/06/2015 11/15/2016 Lumbar disc displacement without myelopathy 04/04/2014 04/17/2018 Lumbar radiculopathy 12/13/20132 018 Primary localized osteoarthrosis, lower leg 11/04/2013 04/29/2015 Knee 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 11/04/2013 04/29/2015 Perforated diverticulum of large intestine 08/20/2012 10/27/2012 Sciatica 06/21/2012 04/29/2015 Diverticulitis 01/09/2014 documented as of this encounter (statuses as of 12/08/2023) 01-12-2017 History of Past illness Narrative* Problem Noted [...] of this encounter (statuses as of 01/23/2024) [facility] note* Diagnosis Chronic bronchitis, unspecified chronic bronchitis type (HCC) documented in this encounter [facility] note* Diagnosis Hyperlipidemia, unspecified hyperlipidemia type- Primary documented in this encounter [facility] note* Diagnosis Primary osteoarthritis of right knee Primary localized osteoarthrosis, lower leg [facility]* Diagnosis Chronic bronchitis, unspecified chronic bronchitis type (HCC) documented in this encounter [facility] note* Diagnosis Chronic bronchitis, unspecified chronic bronchitis type (HCC) documented in this encounter [facility] note* Diagnosis Essential hypertension Unspecified essential hypertension documented in this encounter [facility] note* Diagnosis Oral candidiases- Primary [facility]* Diagnosis Suspected COVID-19 virus infection- Primary documented in this encounter [facility] note* Diagnosis Onset Date Resolution Status [id number] acute Stage 3 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 [facility] Work Phone: Evaluation note* Diagnosis Pleuritic chest pain- Primary Painful respiration documented in this encounter [facility] note* Diagnosis Cough syncope- Primary Cough Contusion of right chest wall, subsequent encounter Gallstones Calculus of gallbladder without mention of cholecystitis or obstruction documented in this encounter [facility] note* Diagnosis Onset Date Resolution Status [id number] acute 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 Abdominal discomfort [facility] Work Phone: Evaluation note* Diagnosis Primary osteoarthritis of right knee- Primary Primary localized osteoarthrosis, lower leg documented in this encounter [facility] note* Diagnosis Chronic bronchitis, unspecified chronic bronchitis type (HCC) [facility]* Diagnosis Onset Date Resolution Status [id number] acute 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 Abdominal discomfort chronic Stage 3 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 [facility] Work Phone: Evaluation note* Diagnosis Essential hypertension Unspecified essential hypertension [facility]* Diagnosis Onset Date Resolution Status Abdominal discomfort chronic Stage 3 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 [facility] Work Phone: evaluation note* Diagnosis Onset Date Resolution Status Abdominal discomfort chronic 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 Abdominal pain acute Constipation acute History of partial colectomy acute Dyspnea acute Hypoxia acute Influenza A acute COPD exacerbation chronic [facility] Work Phone: evaluation note* Diagnosis Onset Date Resolution Status Abdominal discomfort chronic 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 Abdominal pain acute Constipation acute History of partial colectomy acute Hypoxia acute Influenza A acute COPD exacerbation resolved Dyspnea resolved [facility] Work Phone: evaluation note* Diagnosis Acute pain of right shoulder- Primary Strain of right shoulder, initial encounter [facility]* Diagnosis Chronic bronchitis, unspecified chronic bronchitis type (HCC) documented in this encounter [facility] note* Diagnosis Onset Date Resolution Status Abdominal pain acute Constipation acute History of partial colectomy acute Hypoxia acute Influenza A acute COPD exacerbation resolved Dyspnea resolved [place] acute Presence of stent in coronary artery October, acute Solid nodule of lung greater than 8 mm in diameter acute Nocturnal hypoxia chronic 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 S/P laparoscopic cholecystectomy acute [facility] Work Phone: Evaluation note* Diagnosis Primary hypertension- Primary Unspecified essential hypertension 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 Hyperlipidemia, unspecified hyperlipidemia type Chronic bronchitis, unspecified chronic bronchitis type (HCC) Acute on chronic respiratory failure with hypoxia (HCC) Need for vaccination Need for prophylactic vaccination and inoculation against unspecified single disease documented in this encounter [facility] note* Diagnosis Onset Date Resolution Status Abdominal [...] Syncope acute Atherosclerosis of coronary artery of [place] heart without angina pectoris chronic COPD (chronic obstructive pulmonary disease) chronic Hyperlipidemia chronic Postprandial epigastric pain chronic Nocturnal hypoxia chronic Solid nodule of lung greater than 8 mm in diameter chronic Stage 3 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 [facility] Work Phone: Evaluation note* Diagnosis Onset Date Resolution Status Nocturnal hypoxia chronic Solid nodule of lung greater than 8 mm in diameter chronic 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 Shortness of breath on exertion acute 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 Shortness of breath on exertion acute Atherosclerosis of coronary artery of [place] heart without angina pectoris chronic COPD (chronic obstructive pulmonary disease) chronic Hyperlipidemia chronic 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 Shortness of breath noneacti ve Exocrine pancreatic insufficiency chronic Postprandial epigastric pain chronic [facility] Work Phone: Evaluation note* Diagnosis Medicare annual wellness visit, subsequent- Primary Routine general medical examination at a health care facility Primary hypertension Unspecified essential hypertension Chronic bronchitis, unspecified chronic bronchitis type (HCC) Acute on chronic respiratory failure with hypoxia (HCC) 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 Gastroesophageal reflux disease, unspecified whether esophagitis present Tobacco use disorder Hyperlipidemia, unspecified hyperlipidemia type documented in this encounter Evaluation note* Diagnosis Infected cyst of skin- Primary Sebaceous cyst Skin cyst Sebaceous cyst [facility]* Diagnosis Onset Date Resolution Status Shortness of breath on exertion acute 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 Shortness of breath on exertion acute Atherosclerosis of coronary artery of [place] heart without angina pectoris chronic COPD (chronic obstructive pulmonary disease) chronic Hyperlipidemia chronic 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 Shortness of breath noneacti ve Exocrine pancreatic insufficiency chronic Postprandial epigastric pain [facility] Work Phone: Evaluation note* Diagnosis Chronic bronchitis, unspecified chronic bronchitis type (HCC) [facility]* Diagnosis Onset Date Resolution Status Exocrine pancreatic insufficiency chronic Postprandial epigastric pain chronic Shortness of breath on exertion acute Atherosclerosis of coronary artery of [place] heart without angina pectoris chronic COPD (chronic obstructive pulmonary disease) chronic Hyperlipidemia chronic Acute upper respiratory infection acute 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 Nocturnal hypoxia chronic Smoking greater than 30 pack years chronic 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 Tachycardia acute TIA (transient ischemic attack) acute Atherosclerosis of coronary artery of [place] heart without angina pectoris chronic COPD (chronic obstructive pulmonary disease) chronic Hyperlipidemia [facility] Work Phone: Evaluation note* Diagnosis Onset Date Resolution Status Shortness of breath on exertion acute Atherosclerosis of coronary artery of [place] heart without angina pectoris chronic COPD (chronic obstructive pulmonary disease) chronic Hyperlipidemia chronic Acute upper respiratory infection acute 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 Nocturnal hypoxia chronic Smoking greater than 30 pack years chronic 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 Tachycardia acute TIA (transient ischemic attack) acute Atherosclerosis of coronary artery of [place] heart without angina pectoris chronic COPD (chronic obstructive pulmonary disease) chronic Hyperlipidemia [facility] Work Phone: Evaluation note* Diagnosis Chronic bronchitis, unspecified chronic bronchitis type (HCC) documented in this encounter [facility] note* Diagnosis Gastroesophageal reflux disease, unspecified whether esophagitis present [facility]* Diagnosis Chronic bronchitis, unspecified chronic bronchitis type (HCC)- Primary documented in this encounter [facility] note* Diagnosis Onset Date Resolution Status ALMONTE (dyspnea on exertion) ac love Atherosclerosis of coronary artery of [place] heart without angina pectoris chronic Hyperlipidemia chronic Nocturnal hypoxia chronic Smoking greater than 30 pack years chronic Stage 3 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 [facility] Work Phone: Evaluation note* Diagnosis Gastroesophageal reflux disease, unspecified whether esophagitis present [facility]* Diagnosis Essential hypertension Unspecified essential hypertension [facility] this encounter [facility]* Diagnosis Chronic bronchitis, unspecified chronic bronchitis type (HCC) Gastroesophageal reflux disease, unspecified whether esophagitis present documented in this encounter [facility] note* Diagnosis Medicare annual wellness visit, subsequent- Primary Routine general medical examination at a health care facility 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 Hyperlipidemia, unspecified hyperlipidemia type Chronic bronchitis, unspecified chronic bronchitis type (HCC) Primary hypertension Unspecified essential hypertension Screening for depression Encounter for screening examination for other mental health and behavioral disorders Gastroesophageal reflux disease, unspecified whether esophagitis present Achilles tendinitis of both lower extremities Acute on chronic respiratory failure with hypoxia (HCC) documented in this encounter [facility] note* Diagnosis Chronic bronchitis, unspecified chronic bronchitis type (HCC) documented in this encounter [facility] note* Diagnosis SOB (shortness of breath) Shortness of breath [facility]* Diagnosis Chronic bronchitis, unspecified chronic bronchitis type (HCC) documented [facility]* Diagnosis Chronic bronchitis, unspecified chronic bronchitis type (HCC) documented in this encounter Evaluation note* Diagnosis Acute pain of right [facility]* Diagnosis Achilles tendinitis of both lower extremities [facility]* Diagnosis Acute right-sided low back pain without sciatica [facility]* Diagnosis Chest wall pain- Primary Painful respiration Chronic bronchitis, unspecified chronic bronchitis type (HCC) Hyperlipidemia, unspecified hyperlipidemia type Impaired glucose metabolism Impaired glucose tolerance test documented in this [facility]* Diagnosis Respiratory infection- Primary Other diseases of respiratory system, not elsewhere classified Thrush Candidiasis of mouth [facility]* Diagnosis Subacute cough- Primary Cough COPD with exacerbation (HCC) Obstructive chronic bronchitis with exacerbation Subacute cough Cough [facility]* Diagnosis Subacute cough Cough [facility] Diagnosis COPD with exacerbation (HCC)- Primary Obstructive chronic bronchitis with exacerbation 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 [facility]* Diagnosis Tobacco abuse Tobacco use disorder [facility] Diagnosis Dyspnea, unspecified type- Primary 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 COPD (chronic obstructive pulmonary disease) with chronic bronchitis (HCC) Obstructive chronic bronchitis without exacerbation Sinus tachycardia Other specified cardiac dysrhythmias [facility]* Diagnosis COPD (chronic obstructive pulmonary disease) with chronic bronchitis (HCC)- Primary Obstructive chronic bronchitis without exacerbation Acute on chronic respiratory failure with hypoxia (HCC) Nodule of lower lobe of left lung (low dose lung CT) documented [facility]* Diagnosis COPD (chronic obstructive pulmonary disease) with chronic bronchitis (HCC)- Primary Obstructive chronic bronchitis without exacerbation Acute on chronic respiratory failure with hypoxia (HCC) Tobacco use disorder 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 Kidney insufficiency Unspecified disorder of kidney and ureter [facility]* Diagnosis Tobacco use disorder documented in this encounter Evaluation note* Diagnosis Medicare annual wellness visit, subsequent- Primary Routine general medical examination at a health care facility 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 Hyperlipidemia, unspecified hyperlipidemia [...] CT) Other eczema documented in this encounter [facility]* Diagnosis Pain of right hip- Primary Pain of right hip documented in this encounter [facility]* Diagnosis Pain of right hip documented in this encounter [facility]* Diagnosis Acute right hip pain- Primary Pain in joint, pelvic region and thigh Primary osteoarthritis of right hip Primary localized osteoarthrosis, pelvic region and thigh Calcific tendinitis of right hip documented in this encounter [facility] note* Diagnosis Acute right hip pain Pain in joint, pelvic region and thigh Trochanteric bursitis of right hip Enthesopathy of hip region Unilateral primary osteoarthritis, right hip documented in this encounter [facility]* Diagnosis Encounter for screening for other musculoskeletal disorder documented in this encounter [facility] Discharge instructionsAmbulatory Orders* Physical Therapy Referral Location: None [facility] Work Phone: Progress note Author Michael Narayan [facility] Note Date/Time July 21, 2025 8:32am [facility] [address] [place] [address] OFFICE VISIT Date of Service: 07/21/25 MR#: [id number] Acct: [id number] Name: HORACE HENDERSON Rep #: [id number] : 1955 Provider: Dr. David Narayan, Age/Sex: 70/M Location: [facility] Status: Signed Intake Vital Signs 05/05/25 12:58 07/21/25 08:05 Height 5 ft 7 in 5 ft 7 in Weight: 178 lb 164 lb 6 oz BMI 27.8 25.7 BP 135/77 H Blood Pressure Location Lt brachial Position Sitting Respiration 16 Pulse 80 Pulse Source NIBP Intake Visit Reasons: RIGHT HIP Chief Complaint: Right Hip Pain Accompanied by: Self Is patient in pain?: Yes Pain scale (1-10): 4 Allergies levofloxacin (From Levaquin) Adverse Reaction (Severe, Verified 07/21/25 08:06) tendonitis Medications ?Medication ?Instructions ?Recorded ?Confirmed ?Type clopidogrel 75 mg tablet (Plavix) 75 mg PO DAILY anti platelet #90 10/04/21 07/21/25 Rx tabs albuterol sulfate 90 mcg/actuation 2 puff inhalation Q 6H PRN PRN 07/30/24 07/21/25 Rx aerosol inhaler Shortness Of Breath #8.5 gra ms budesonide-formoterol HFA 160 2 puff inhalation BID #3 ea 07/30/24 07/21/25 Rx mcg-4.5 mcg/actuation aerosol inhaler (Symbicort) isosorbide mononitrate 30 mg 30 mg PO DAILY #90 TABLET S 09/09/24 07/21/25 Rx tablet,extended release 24 hr ipratropium 0.5 mg-albuterol 3 mg 3 ml continuous nebu lization Q6H 09/10/24 07/21/25 Rx (2.5 mg base)/3 mL nebulization PRN shortness of breat h or soln wheezing #180 mL metoprolol tartrate 50 mg tablet 50 mg PO BID #180 tab s 11/05/24 07/21/25 Rx losartan 50 mg tablet 50 mg PO QPM #30 tabs 07/21/25 Rx furosemide 40 mg tablet 20 mg PO QAM PRN 05/05/25 History potassium chloride 10 mEq 10 meq PO QDAY 05/05/2507/01 History capsule,extended release rosuvastatin 40 mg tablet 40 mg PO QHS #90 tabs 07/21/25 Rx tramadol 50 mg tablet 50 mg PO Q8 PRN pain 5 07/21/25 History Have you fallen in the past year?: Yes PFSH Medical History Essential hypertension Alcohol use [...] intestine Presence of stent in coronary artery (~11/12/21) Easy bruising Excessive bleeding History of ulceration Gastric reflux History of diverticulitis Chronic bronchitis Nicotine dependence Osteoarthritis DDD (degenerative disc disease), lumbar Atherosclerosis of coronary artery of chip[place]cree heart without angina pectoris Atherosclerosis of coronary artery bypass graft without angina pectoris Hyperlipidemia Surgical History History of laparoscopic cholecystectomy S/P laparoscopic cholecystectomy Status post double vessel coronary artery bypass Presence of coronary angioplasty implant and graft (~09/29/21) Hx of left cataract extraction Hx of right cataract extraction History of cardiac catheterization History of colectomy S/p bilateral carpal tunnel release H/O coronary artery bypass surgery (10/14/96) History of left knee replacement History of appendectomy History of tonsillectomy History of partial colectomy Family History Father CAD (coronary artery disease) Brother Hypertension Grandfather Pancreatic cancer Grandmother Heart disease Social History Smoking Status: Current every day smoker tobacco type: cigarettes alcohol intake: current alcohol intake frequency: 0-2 drinks per day substance use type: does not use caffeine: Yes Type: coffee Number of servings: 2 what type of physical activity do you participate in: none seatbelt use: always do you feel safe at home: Yes HPI RIGHT HIP Details: This documentation accurately reflects the service provided and the decisions made by me, Dr. Michael Narayan, DO 07/21/25 0792. Part of today?s visit was documented by Shannan Ma ATC, acting as scribe. HORACE HENDERSON is a 70 year old M new patient with medical history significant for but not limited to coronary artery disease, lower extremity edema, kidney insufficiency, history of TIA, exocrine pancreatic insufficiency, stage III COPD, MIKE, smoking greater than 30 pack years, history of coronary artery bypasssurgery, here today for right hip pain. Alcohol use admits to 2 beers per day. patient rates his pain a 4/10 today and ambulates with a cane. He states the hiphas been bothering him for about 3 weeks. Initially denied any injury however upon further questioning he states that he did wake up on the floor he is not sure how he ended up there however he did admit to having some alcohol and lorazepam that he obtained from a friend the night before he cannot recall what had happened. This was about the time that his hip started to hurt. He went to Urgent Care and had an x-ray and was told it was "full of arthritis".He saw a doctor, Best Bryant at and he had a steroid injection about the lateral side of his hip about 2 weeks ago and has not noticed any relief and then they ordered an MRI. He describes the pain over the lateral aspect of the hip and upper groin. He denies any numbness/tingling into the leg.He was given a prescription for Tramadol but he didn't get any relief from that.He has taken Aleve for the pain. He denies any prior injury or surgery to the hip/back. He denies any current lumbar spine pain. Of note he recalls a similar event that happened around Lilly time as well, he states his PCP is aware. Ortho Exam General General: Yes no acute distress Neurologic: Yes alert and Yes oriented x3 Psychologic: Yes reasonable and appropriate Right Hip Skin: Yes Ecchymosis, Yes soft tissue swelling and No Erythema HIP: Quarter size ecchymosis on anterior lateral hip area psoriasis patch on glute and some on lower legs + tenderness trochanteric bursa IR 10 mild edema in legs thin skin with psoriatic plaques ER 30 with no pain 5/5 knee extension strength without pain against resistance pain with resisted hip flexion but good strength No groin pain with hip range of motion No gross motor or sensory deficits Supplemental Info 07/15/2025 MRI right hip: Diffuse cartilage thinning with areas of full-thicknesscartilage loss in the superior femoral head and acetabulum. Subchondral cystic changes within the femoral head and acetabulum. Mild edema within the femoral neck and subcortical cystic changes. Moderate hip joint effusion tear of ligamentum teres. Complete avulsion of the rectus femoris direct head from the anterior inferior iliac spine. High-grade partial tear of the indirect head from the superior acetabulum, moderate hip joint osteoarthritis with degenerative tearing of the labrum Coding Level of Care Code Off vis,new,level 3 Diagnoses Rupture of right rectus femoris tendon, initial encounter S76.811A Encounter type: initial encounter Primary osteoarthritis of right hip M16.11 Osteoarthritis type: primary Laterality: right Assessment and Plan Assessment and Plan (1) Rupture of right rectus femoris tendon: Status: Acute Qualifiers: Encounter type: initial encounter Qualified Code(s): S76.811A - Strain of other specified muscles, fascia and tendons at thigh level, right thigh, initial encounter (2) Degenerative joint disease (DJD) of hip: Status: Acute Qualifiers: Osteoarthritis type: primary Laterality: right Qualified Code(s): M16.11 - Unilateral primary osteoarthritis, right hip Orders: Referrals Physical Therapy Referral S76.811A - Strain of other specified muscles, fasciaand tendons at thigh level, right thigh, initial encounter Plan Patient is here today for right hip pain. I reviewed a right hip MRI that was done at the prior to his appointment today. He does have a avulsion of the rectus femoris origin direct and indirect heads proximally. In addition he does have some hip osteoarthritis. For this I recommend physical therapy which he agreed to I will send him over a prescription. I do not recommend surgical intervention here. He does have hip arthritis and was not anissue before this event. I do not recommend he combine benzodiazepines and alcohol, nor should he be taking benzodiazepines that I prescribed for him. He can continue to use a cane, crutch or a walker for some extra support in case hewould go off balance to prevent further falls and injury. Follow up in an as needed basis or sooner if pain, swelling, numbness or associated symptoms, or concerns develop. All questions answered. Patient in agreement of plan. Clinical Quality Measures Falls Risk Screening/Assistive Devices Have you fallen in the past year?: Yes 07/21/25 0939 <Electronically signed by Michael sanders DO> Date _ Michael Narayan DO Cosigner Signature: Date (if applicable) CC: Dr. George Vázquez MD ~ [facility] Work Phone: Reason for referral (narrative)* Diagnostic Procedure Only (Routine) - Closed Specialty Diagnoses / Procedures Referred By Domingo t Referred To Contact XR IMAGING Diagnoses Acute pain of right shoulder Procedures XR SHOULDER GENERAL 3V OR MORE AP/TRUE AP/OTHER RIGHT RADEX SHOULDER COMPLETE MINIMUM 2 VIEWS [facility] [address] [place] [address] [place] [address] Referral ID Status Reason Start Date Expiration Date V isits Requested Visits Authorized [id number] Closed Auto-Generate d Referral 11/22/2022 12/22/2023 1 1 [facility] for referral (narrative)* Outpatient Procedure (Routine) - New Request Specialty Diagnoses / Procedures Referred By Domingo main Referred To Contact [facility] Diagnoses 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 Procedures ECG COMPLETE ECG ROUTINE ECG W/LEAST 12 LDS W/I&R George Vázquez MD [address] [place] [address] [facility] [address] [place] [id number] Referral ID Status Reason Start Date Expiration Date Visits Requested Visits Authorized [id number] New Request Auto-Generat ed Referral 4 09/12/2025 1 1 [facility] for referral (narrative)No reason for referral information availableWSelect [facility] Work Phone: Reason for visit Narrative* Diagnostic Procedure Only (Urgent) - Closed Specialty Diagnoses / Procedures Referred By Domingo main Referred To Contact XR IMAGING Diagnoses Acute pain of right shoulder Procedures XR SHOULDER [id number] AP/TRUE AP RIGHT RADEX SHOULDER COMPLETE MINIMUM 2 VIEWS [facility] [address] [place] [address] [place] [address] Referral ID Status Reason Start Date Expiration Date V isits Requested Visits Authorized [id number] Closed Auto-Generate d Referral 11/22/2022 12/22/2023 1 1 [facility] for visit Narrative* Diagnostic Procedure Only (Urgent) - Closed Specialty Diagnoses / Procedures Referred By Domingo t Referred To Contact XR IMAGING Diagnoses Pain of right hip Procedures XR HIP GENERAL 3V PELV/AP/LAT RIGHT RADEX HIP UNILATERAL WITH PELVIS 2-3 VIEWS Prateek Matos APRN.[employer] HOME MANAGER [address] [place] [address] Phone: tel: fax: [place] [address] Referral ID Status Reason Start Date Expiration Date V isits Requested Visits Authorized [id number] Closed Auto-Generate d Referral 07/03/2025 08/02/2026 1 1 [facility] for visit Narrative* MRI/CT (Routine) - Closed Specialty Diagnoses / Procedures Referred By Domingo t Referred To Contact MR IMAGING Diagnoses Encounter for screening for other musculoskeletal disorder Procedures MRI HIP WO IVCON RIGHT MRI ANY JT LOWER EXTREM W/O CONTRAST MATRL Low Bryant, Justin, DO [address] [place] [address] Phone: tel: fax: [place] [address] Referral ID Status Reason Start Date Expiration Date V isits Requested Visits Authorized [id number] Closed Auto-Generate d Referral 07/11/2025 08/10/2026 1 1 Summary Purpose Family History No Family History Records Found Relationship Condition Age at Onset Recorded Date/T eric father Coronary artery disease Unknown Relationship Condition Age at Onset Recorded Date/T eric father Coronary artery disease Unknown brother Hypertension Unknown grandfather Malignant neoplasm of pancreas Unknown grandmother Cardiac disease Unknown Advance Directives No Advanced Directives Records FoundDocuments on File Type Date Recorded Patient 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 Administrator Expl anation Advance Directive(s) 11/12/2021 6:29 AM [...] Will No November 22 3:45pm Power of Set Up [employer] No November 22, 2021 3:45pm Advance Directive Response Recorded Date/ Time Name of Medical Power of Set Up [employer] ARI AND DI TIERA July 13, 2022 5:08pm Advance Directives Yes September 29, 2021 8:36am Living Will Yes July 13, 2022 5:08pm Power of Set Up Mechan[employer] Yes June 5:08pm Advance Directive Response Recorded Date/ Time Name of Medical Power of Set Up [employer] ARI AND DI TIERA July 13, 2022 4:08pm Advance Directives Yes September 29, 2021 7:36am Living Will Yes July 13, 2022 4:08pm Power of Set Up Mechanic [employer] Yes June 4:08pm Advance Directive Response Recorded Date/ Time Name of Medical Power of Set Up Mechan[employer] ARI AND DI TIERA July 13, 2022 4:08pm Name of Medical Power of Set Up Mechanic [employer] ARI October 28, 2022 2:38am Advance Directives Yes September 29, 2021 7:36am Living Will Yes October 28 022 2:38am Power of Set Up Mechan[employer] Yes October 28, 2022 2:38am Advance Directive Response Recorded Date/ Time Name of Medical Power of Set Up [employer] ARI AND DI TIERA July 13, 2022 4:08pm Name of Medical Power of Set Up Mechan[employer] stephanie matos October 28, 2022 4:55am Advance Directives Yes September 29, 2021 7:36am Living Will No October 28 022 4:55am Power of Set Up Mechan[employer] Yes October 28, 2022 4:55am Advance Directive Response Recorded Date/ Time Name of Medical Power of Set Up [employer] stephanie matos October 28, 2022 4:55am Name of Medical Power of Set Up [employer] DAUGHTER November 24, 2022 9:18am Advance Directives Yes September 29, 2021 7:36am Living Will Yes November 24 9:18am Power of Set Up Mechan[employer] Yes November 24, 2022 9:18am Advance Directive Response Recorded Date/ Time Name of Medical Power of Set Up Mechan[employer] ANALY MATOS December 26, 2022 12:30pm Advance Directives Yes September 29, 2021 8:36am Living Will Yes December 26 12:30pm Power of Set Up Mechanic [employer] Yes December 26, 2022 12:30pm Name of Medical Power of Set Up Mechan[employer] stephanie matos October 28, 2022 5:55am Name of Medical Power of Set Up Mechanic [employer] DAUGHTER November 24, 2022 10:18am Advance Directive Response Recorded Date/ Time Name of Medical Power of Set Up [employer] ANALY MATOS December 26, 2022 12:30pm Advance Directives Yes September 29, 2021 8:36am Living Will No March 17, 2023 4 :37pm Power of Set Up Mechanic [employer] No March 17, 2023 4:37pm Advance Directive Response Recorded Date/ Time Advance Directives Yes September 29, 2021 8:36am Living Will No March 17, 2023 4 :37pm Power of Set Up Mechanic [employer] No March 17, 2023 4:37pm Advance Directive Response Recorded Date/ Time Advance Directives Yes September 29, 2021 7:36am Living Will No March 17, 2023 3 :37pm Power of Set Up Mechanic [employer] No March 17, 2023 3:37pm Advance Directive Response Recorded Date/ Time Living Will No March 17, 2023 4 :37pm Power of Set Up Mechanic [employer] No March 17, 2023 4:37pm Living Will No September 17 5:14pm Power of Set Up Mechanic [employer] Yes September 17, 2024 5:14pm Name of Medical Power of Set Up Mechanic [employer] ari ortega [facility] September 17, 2024 5:14pm Living Will No October 27 5:50pm Power of Set Up Mechan[employer] Yes October 27, 2024 5:50pm Name of Medical Power of Set Up Mechan[employer] Stephanie Matos October 27, 2024 5:50pm Advance Directives Yes September 29, 2021 8:36am Advance Directive Response Recorded Date/ Time Living Will No March 17, 2023 4 :37pm Do you have a Healthcare Power of Set Up Mechanic [employer]? No March 17, 2023 4:37pm Living Will No October 27 5:50pm Do you have a Healthcare Power of Set Up Mechanic [employer]? Yes October 27, 2024 5:50pm Name of Medical Power of Set Up Mechanic [employer] Stephanie Matos October 27, 2024 5:50pm Advance Directives Yes September 29, 2021 8:36am Advance Directive Response Recorded Date/ Time Advance Directives Yes September 29, 2021 8:36am Advance Directive Response Recorded Date/ Time Living Will No March 17, 2023 4 :37pm Do you have a Healthcare Power of Set Up Mechan[employer]? No March 17, 2023 4:37pm Advance Directives Yes September 29, 2021 8:36am [...] angina pectoris Atherosclerosis of coronary artery of [place] heart without angina pectoris COPD (chronic obstructive pulmonary disease) Hyperlipidemia Hypertension Presence of stent in coronary artery Atherosclerosis of coronary artery bypass graft without angina pectoris Atherosclerosis of coronary artery of [place] heart without angina pectoris COPD (chronic obstructive [...] angina pectoris Atherosclerosis of coronary artery of [place] heart without angina pectoris COPD (chronic obstructive pulmonary disease) Hyperlipidemia Hypertension Nocturnal hypoxia Smoking greater than 30 pack years Stage 3 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 Presence of stent in coronary artery Atherosclerosis of coronary artery bypass graft without angina pectoris Atherosclerosis of coronary artery of [place] heart without angina pectoris COPD (chronic obstructive pulmonary disease) Hyperlipidemia Hypertension Chief Complaint 3 M FU PCI w/cardiac stenting PCI w/cardiac stenting ACUTE/SOB POOR BALANCE/LE WKNESS/RX HERE NODULE Reason for Visit Presence of stent in coronary artery Atherosclerosis of coronary artery bypass graft without angina pectoris Atherosclerosis of coronary artery of [place] heart without angina pectoris COPD (chronic obstructive pulmonary disease) Hyperlipidemia Hypertension [id number] Stage 3 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 Chief Complaint ACUTE/SOB NODULE POOR BALANCE/LE WKNESS/RX HERE RIB PAIN WITH BREATHING/MOVEMENT Reason for Visit [id number] Stage 3 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 Chief Complaint ACUTE/SOB NODULE RIB PAIN WITH BREATHING/MOVEMENT POOR BALANCE/LE WKNESS/RX HERE Consult E-ORDER Reason for Visit [id number] Stage 3 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 Abdominal discomfort Chief Complaint ACUTE/SOB NODULE RIB PAIN WITH BREATHING/MOVEMENT Consult E-ORDER 6 M FU GASTROPARESIS POOR BALANCE/LE WKNESS/RX HERE Reason for Visit [id number] Stage 3 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 [...] artery Syncope Atherosclerosis of coronary artery of [place] heart without angina pectoris COPD (chronic obstructive [...] artery Syncope Atherosclerosis of coronary artery of [place] heart without angina pectoris COPD (chronic obstructive pulmonary disease) Hyperlipidemia Postprandial epigastric pain Nocturnal hypoxia Solid nodule of lung greater than 8 mm in diameter Stage 3 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 Shortness of breath on exertion Stage 3 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 Chief Complaint INT LABS/PAPER ORDER STOOL SAMPLE 6 M FU follow up SOB POOR BALANCE/LE WKNESS/RX HERE [facility] 03/17 ER// SOB AND IRREGULAR HEART BEAT [...] on exertion Atherosclerosis of coronary artery of [place] heart without angina pectoris COPD (chronic obstructive pulmonary disease) Hyperlipidemia Stage 3 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 Shortness of breath Exocrine pancreatic insufficiency Postprandial epigastric pain Chief Complaint 6 M FU follow up SOB POOR BALANCE/LE WKNESS/RX HERE [facility] 03/17 ER// SOB AND IRREGULAR HEART BEAT [...] on exertion Atherosclerosis of coronary artery of [place] heart without angina pectoris COPD (chronic obstructive pulmonary disease) Hyperlipidemia Stage 3 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 Shortness of breath Exocrine pancreatic insufficiency Postprandial epigastric pain Chief Complaint follow up SOB POOR BALANCE/LE WKNESS/RX HERE [facility] 03/17 ER// SOB AND IRREGULAR HEART BEAT Shortness of breath 3 MO FU CHRONIC OBSTRUCTIVE PULMONARY DISEASE CHRONIC OBSTRUCTIVE PULMONARY DISEASE Shortness of breath Shortness of breath FOLLOW MASS Reason for Visit Shortness of breath on exertion Stage 3 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 Shortness of breath on exertion Atherosclerosis of coronary artery of [place] heart without angina pectoris COPD (chronic obstructive [...] on exertion Atherosclerosis of coronary artery of [place] heart without angina pectoris COPD (chronic obstructive pulmonary disease) Hyperlipidemia Acute upper respiratory infection Stage 3 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 Nocturnal hypoxia Smoking greater than 30 pack years Stage 3 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 Tachycardia TIA (transient ischemic attack) Atherosclerosis of coronary artery of [place] heart without angina pectoris COPD (chronic obstructive [...] on exertion Atherosclerosis of coronary artery of [place] heart without angina pectoris COPD (chronic obstructive pulmonary disease) Hyperlipidemia Acute upper respiratory infection Stage 3 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 Nocturnal hypoxia Smoking greater than 30 pack years Stage 3 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 Tachycardia TIA (transient ischemic attack) Atherosclerosis of coronary artery of [place] heart without angina pectoris COPD (chronic obstructive pulmonary disease) Hyperlipidemia Chief Complaint CHRONIC OBSTRUCTIVE PULMONARY DISEASE CHRONIC OBSTRUCTIVE PULMONARY DISEASE Shortness of breath Shortness of breath FOLLOW MASS 6 M FU COUGH, CONGESTED 5 m fu 2 ORDERING- E ORDERS 4 M FU TIA INT LABSPEC Tachycardia, unspecified Reason for Visit Shortness of breath on exertion Atherosclerosis of coronary artery of [place] heart without angina pectoris COPD (chronic obstructive pulmonary disease) Hyperlipidemia Acute upper respiratory infection Stage 3 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 Nocturnal hypoxia Smoking greater than 30 pack years Stage 3 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 Tachycardia TIA (transient ischemic attack) Atherosclerosis of coronary artery of [place] heart without angina pectoris COPD (chronic obstructive pulmonary disease) Hyperlipidemia Chief Complaint Tachycardia, unspeci fied 3 M FU 3 M FU ALMONTE Reason for Visit ALMONTE (dyspnea on exer tion) Atherosclerosis of coronary artery of [place] heart without angina pectoris Hyperlipidemia Nocturnal hypoxia [...] BP check and EKG: see clinicals. Norma Bradshaw [facility] 2024 9:53am 2 M FU January 08, 2025 10: 35am EORDERS January 08, 2025 10: 45am Reason for Visit Admit Date Acute kidney insufficiency September 2:17pm Forehead laceration October 27, 2024 2:17pm Sinus tachycardia October 27, 2024 2:17pm Syncope October 27, 2024 2:17pm Atherosclerosis of coronary artery of [place] heart without angina pectoris October 27, 2024 2:17pm Syncope November 05, 2024 12 :55pm Tachycardia November 05, 2024 12 :55pm Atherosclerosis of coronary artery bypass graft without angina pectoris November 05, 2024 12:55pm Hyperlipidemia November 05, 2024 12 :55pm Stage 3 severe COPD by GOLD classificati on November 05, 2024 12:55pm Cough productive of purulent sputum Hunter h [...] BP check and EKG: see clinicals. Norma Bradshaw [facility] 2024 9:53am 2 M FU January 08, 2025 10: 35am EORDERS January 08, 2025 10: 45am 1 WK FU PER January 20, 2025 2:4 2pm ASCVD FATIGUE February 05, 2025 9:48 am Reason for Visit Admit Date Acute kidney insufficiency September 2:17pm Forehead laceration October 27, 2024 2:17pm Sinus tachycardia October 27, 2024 2:17pm Syncope October 27, 2024 2:17pm Atherosclerosis of coronary artery of [place] heart without angina pectoris October 27, 2024 2:17pm Syncope November 05, 2024 12 :55pm Tachycardia November 05, 2024 12 :55pm Atherosclerosis of coronary artery bypass graft without angina pectoris November 05, 2024 12:55pm Hyperlipidemia November 05, 2024 12 :55pm Stage 3 severe COPD by GOLD classificati on November 05, 2024 12:55pm Cough productive of purulent sputum [facility] 2024 10:35am Essential hypertension January 08, 2025 10:35am Leg edema January 08, 2025 10: 35am Atherosclerosis of coronary artery bypass graft without angina pectoris January 08, 2025 10:35am Atherosclerosis of coronary artery January 20, 2025 2:42pm ALMONTE (dyspnea on exertion) January 20 2:42pm Essential hypertension January 20, 2025 2:42pm Presence of stent in coronary artery [facility] 2024 2:42pm Atherosclerosis of coronary artery bypass graft without angina pectoris January 20, 2025 2:42pm COPD (chronic obstructive pulmonary dise ase) January 20, 2025 2:42pm Hyperlipidemia January 20, 2025 2:4 2pm Nicotine dependence January 20, 2025 2:4 2pm Smoking greater than 30 pack years January 20, 2025 2:42pm MIKE (obstructive sleep apnea) December 2:42pm Chief Complaint Admit Date BP check and EKG: see clinicals. Norma Bradshaw [facility] 2024 9:53am 2 M FU January 08, [...] 2:42pm Presence of stent in coronary artery [facility] 2024 2:42pm Atherosclerosis of coronary artery bypass [...] :55pm Presence of stent in coronary artery Apr 12:55pm Thrush, oral May 05, 2025 12:55 pm Atherosclerosis of coronary artery bypass graft without angina pectoris May 05, 2025 12:55pm COPD (chronic obstructive pulmonary dise ase) May 05, 2025 12:55pm Hyperlipidemia May 05, 2025 12:55 pm Smoking greater than 30 pack years May 05, 2025 12:55pm MIKE (obstructive sleep apnea) May 05, 2025 12:55pm Chief Complaint Admit Date EORDER May 03, 2025 8:54a m 6 M FU May 05, 2025 12:55 pm NICOTINE DEPENDENCE June 14, 2025 8: 56am Reason for Visit Admit Date ALMONTE (dyspnea on exertion) May 05, 2025 12:55pm Essential hypertension May 05, 2025 12 :55pm Presence of stent in coronary artery Apr 12:55pm Thrush, oral May 05, 2025 12:55 pm Atherosclerosis of coronary artery bypass graft without angina pectoris May 05, 2025 12:55pm COPD (chronic obstructive pulmonary dise ase) May 05, 2025 12:55pm Hyperlipidemia May 05, 2025 12:55 pm Smoking greater than 30 pack years May 05, 2025 12:55pm MIKE (obstructive sleep apnea) May 05, 2025 12:55pm Chief Complaint Admit Date EORDER May 03, 2025 8:54a m 6 M FU May 05, 2025 12:55 pm NICOTINE DEPENDENCE June 14, 2025 8: 56am RIGHT HIP July 21, 2025 7:45am RUPTURE R RECTUS FEMORIS TENDON. RX HERE July 28, 2025 3:00pm Reason for Visit Admit Date ALMONTE (dyspnea on exertion) May 05, 2025 [...] (obstructive sleep apnea) May 05, 2025 12:55pm Degenerative joint disease (DJD) of hip July 21, 2025 7:45am Rupture of right rectus femoris tendon S eptember 2024 7:45am Health Concerns Infection Onset Date Last Indicated Resolved Time COVID-19 Rule-Out 07/05/2022 07/05/2022 Infection Onset Date Last Indicated Resolved Time COVID-19 Confirmed 07/05/2022 07/05/2022 Problem Noted Date Diagnosed Date High Risk Chronic Disease Home Monitoring [facility] 03/16/2023 Problem Noted Date Diagnosed Date High Risk Chronic Disease Home Monitoring [facility] 03/16/2023 Problem Noted Date Diagnosed Date High Risk Chronic Disease Home Monitoring [facility] 03/16/2023 Problem Noted Date Diagnosed Date High Risk Chronic Disease Home Monitoring [facility] 03/16/2023 Problem Noted Date Diagnosed Date High Risk Chronic Disease Home Monitoring [facility] 03/16/2023 Problem Noted Date Diagnosed Date High Risk Chronic Disease Home Monitoring [facility] 03/16/2023 Problem Noted Date Diagnosed Date High Risk Chronic Disease Home Monitoring [facility] 03/16/2023 Active Problems Noted Date Diagnosed Date High Risk Chronic Disease Home Monitoring Proble m 03/16/2023 Reason for Referral Specialty Diagnoses / Procedures Referred By Contac t Referred To Contact Orthopedics Diagnoses Strain of right shoulder, initial encounter Procedures CONSULT TO ORTHOPAEDICS OFFICE/OUTPATIENT [facility] MDM 60-74 MINUTES [facility] [address] [place] [address] Referral ID Status Reason Start Date Expiration Date Visits Requested Visits Authorized [id number] Authorized PCP Requested Referral 11/22/2022 11/22/2023 1 1 Specialty Diagnoses / Procedures Referred By Contac t Referred To Contact XR IMAGING Diagnoses Acute pain of right shoulder Procedures XR SHOULDER GENERAL 3V OR MORE AP/TRUE AP/OTHER RIGHT RADEX SHOULDER COMPLETE MINIMUM 2 VIEWS [facility] [address] [place] [address] Xr Imaging Referral ID Status Reason Start Date Expiration Date V isits Requested Visits Authorized [id number] Closed Auto-Generate d Referral 11/22/2022 12/22/2023 1 1 Specialty Diagnoses / Procedures Referred By Contac t Referred To Contact XR IMAGING Diagnoses Acute pain of right shoulder Procedures XR SHOULDER [id number] AP/TRUE AP RIGHT RADEX SHOULDER COMPLETE MINIMUM 2 VIEWS [facility] [address] [place] [address] Xr Imaging Referral ID Status Reason Start Date Expiration Date V isits Requested Visits Authorized [id number] Closed Auto-Generate d Referral 11/22/2022 12/22/2023 1 1 Specialty Diagnoses / Procedures Referred By Contac t Referred To Contact Blanca Tilley APRN.[employer]GER [address] [place] [address] Referral ID Status Reason Start Date Expiration Date V isits Requested Visits Authorized [id number] Pending Review 1 1 Specialty Diagnoses / Procedures Referred By Contac t Referred To Contact Diagnoses COPD (chronic obstructive pulmonary disease) with chronic bronchitis (HCC) Acute on chronic respiratory failure with hypoxia (HCC) Nodule of lower lobe of left lung Procedures CONSULT TO PULMONARY MEDICINE George Vázquez MD [address] [place] [address] Referral ID Status Reason Start Date Expiration Date Visits Requested Visits Authorized [id number] Ref Not Required PCP Requested Referral 4 12/17/2024 1 1 Additional Source Comments (unrecognized sect ion and content) No Status Records FoundNo Status Records FoundNo Status Records FoundNo Status Records Found INFORMATION SOURCE (unrecogn ized section and content) DATE CREATED AUTHOR 01/25/2021 Mio Segura [facility] DATE CREATED AUTHOR AUTHOR'S ORGANIZ ATION 07/30/2022 [facility] DATE CREATED AUTHOR AUTHOR'S ORGANIZ ATION 08/30/2025 [facility] DATE CREATED AUTHOR AUTHOR'S ORGANIZ ATION 09/02/2025 [facility] Source Comments (unrecognize d section and content) In the event this informatio n is protected by the Federal Confidentiality of Alcohol and Drug Abuse Patient Records regulations: The Federal rules restrict any use of the information to criminally investigate or prosecute any alcohol or drug abuse patient.In the event this information is protected by the Federal Confidentiality of Alcohol and Drug Abuse Patient Records regulations: The Federal rules restrict any use of the information to criminally investigate or prosecute any alcohol or drug abuse patient.In the event this information is protected by the Federal Confidentiality of Alcohol and Drug Abuse Patient Records regulations: The Federal rules restrict any use of the information to criminally investigate or prosecute any alcohol or drug abuse patient.In the event this information is protected by the Federal Confidentiality of Alcohol and Drug Abuse Patient Records regulations: The Federal rules restrict any use of the information to criminally investigate or prosecute any alcohol or drug abuse patient.In the event this information is protected by the Federal Confidentiality of Alcohol and Drug Abuse Patient Records regulations: The Federal rules restrict any use of the information to criminally investigate or prosecute any alcohol or drug abuse patient.In the event this information is protected by the Federal Confidentiality of Alcohol and Drug Abuse Patient Records regulations: The Federal rules restrict any use of the information to criminally investigate or prosecute any alcohol or drug abuse patient.In the event this information is protected by the Federal Confidentiality of Alcohol and Drug Abuse Patient Records regulations: The Federal rules restrict any use of the information to criminally investigate or prosecute any alcohol or drug abuse patient.In the event this information is protected by the Federal Confidentiality of Alcohol and Drug Abuse Patient Records regulations: The Federal rules restrict any use of the information to criminally investigate or prosecute any alcohol or drug abuse patient.In the event this information is protected by the Federal Confidentiality of Alcohol and Drug Abuse Patient Records regulations: The Federal rules restrict any use of the information to criminally investigate or prosecute any alcohol or drug abuse patient.In the event this information is protected by the Federal Confidentiality of Alcohol and Drug Abuse Patient Records regulations: The Federal rules restrict any use of the information to criminally investigate or prosecute any alcohol or drug abuse patient.In the event this information is protected by the Federal Confidentiality of Alcohol and Drug Abuse Patient Records regulations: The Federal rules restrict any use of the information to criminally investigate or prosecute any alcohol or drug abuse patient.In the event this information is protected by the Federal Confidentiality of Alcohol and Drug Abuse Patient Records regulations: The Federal rules restrict any use of the information to criminally investigate or prosecute any alcohol or drug abuse patient.In the event this information is protected by the Federal Confidentiality of Alcohol and Drug Abuse Patient Records regulations: The Federal rules restrict any use of the information to criminally investigate or prosecute any alcohol or drug abuse patient.In the event this information is protected by the Federal Confidentiality of Alcohol and Drug Abuse Patient Records regulations: The Federal rules restrict any use of the information to criminally investigate or prosecute any alcohol or drug abuse patient.In the event this information is protected by the Federal Confidentiality of Alcohol and Drug Abuse Patient Records regulations: The Federal rules restrict any use of the information to criminally investigate or prosecute any alcohol or drug abuse patient.In the event this information is protected by the Federal Confidentiality of Alcohol and Drug Abuse Patient Records regulations: The Federal rules restrict any use of the information to criminally investigate or prosecute any alcohol or drug abuse patient.In the event this information is protected by the Federal Confidentiality of Alcohol and Drug Abuse Patient Records regulations: The Federal rules restrict any use of the information to criminally investigate or prosecute any alcohol or drug abuse patient.In the event this information is protected by the Federal Confidentiality of Alcohol and Drug Abuse Patient Records regulations: The Federal rules restrict any use of the information to criminally investigate or prosecute any alcohol or drug abuse patient.In the event this information is protected by the Federal Confidentiality of Alcohol and Drug Abuse Patient Records regulations: The Federal rules restrict any use of the information to criminally investigate or prosecute any alcohol or drug abuse patient.In the event this information is protected by the Federal Confidentiality of Alcohol and Drug Abuse Patient Records regulations: The Federal rules restrict any use of the information to criminally investigate or prosecute any alcohol or drug abuse patient.In the event this information is protected by the Federal Confidentiality of Alcohol and Drug Abuse Patient Records regulations: The Federal rules restrict any use of the information to criminally investigate or prosecute any alcohol or drug abuse patient.In the event this information is protected by the Federal Confidentiality of Alcohol and Drug Abuse Patient Records regulations: The Federal rules restrict any use of the information to criminally investigate or prosecute any alcohol or drug abuse patient.In the event this information is protected by the Federal Confidentiality of Alcohol and Drug Abuse Patient Records regulations: The Federal rules restrict any use of the information to criminally investigate or prosecute any alcohol or drug abuse patient.In the event this information is protected by the Federal Confidentiality of Alcohol and Drug Abuse Patient Records regulations: The Federal rules restrict any use of the information to criminally investigate or prosecute any alcohol or drug abuse patient.In the event this information is protected by the Federal Confidentiality of Alcohol and Drug Abuse Patient Records regulations: The Federal rules restrict any use of the information to criminally investigate or prosecute any alcohol or drug abuse patient.In the event this information is protected by the Federal Confidentiality of Alcohol and Drug Abuse Patient Records regulations: The Federal rules restrict any use of the information to criminally investigate or prosecute any alcohol or drug abuse patient.In the event this information is protected by the Federal Confidentiality of Alcohol and Drug Abuse Patient Records regulations: The Federal rules restrict any use of the information to criminally investigate or prosecute any alcohol or drug abuse patient.In the event this information is protected by the Federal Confidentiality of Alcohol and Drug Abuse Patient Records regulations: The Federal rules restrict any use of the information to criminally investigate or prosecute any alcohol or drug abuse patient.In the event this information is protected by the Federal Confidentiality of Alcohol and Drug Abuse Patient Records regulations: The Federal rules restrict any use of the information to criminally investigate or prosecute any alcohol or drug abuse patient.In the event this information is protected by the Federal Confidentiality of Alcohol and Drug Abuse Patient Records regulations: The Federal rules restrict any use of the information to criminally investigate or prosecute any alcohol or drug abuse patient.In the event this information is protected by the Federal Confidentiality of Alcohol and Drug Abuse Patient Records regulations: The Federal rules restrict any use of the information to criminally investigate or prosecute any alcohol or drug abuse patient.In the event this information is protected by the Federal Confidentiality of Alcohol and Drug Abuse Patient Records regulations: The Federal rules restrict any use of the information to criminally investigate or prosecute any alcohol or drug abuse patient.In the event this information is protected by the Federal Confidentiality of Alcohol and Drug Abuse Patient Records regulations: The Federal rules restrict any use of the information to criminally investigate or prosecute any alcohol or drug abuse patient.In the event this information is protected by the Federal Confidentiality of Alcohol and Drug Abuse Patient Records regulations: The Federal rules restrict any use of the information to criminally investigate or prosecute any alcohol or drug abuse patient.[facility] the event this information is protected by the Federal Confidentiality of Alcohol and Drug Abuse Patient Records regulations: The Federal rules restrict any use of the information to criminally investigate or prosecute any alcohol or drug abuse patient.In the event this information is protected by the Federal Confidentiality of Alcohol and Drug Abuse Patient Records regulations: The Federal rules restrict any use of the information to criminally investigate or prosecute any alcohol or drug abuse patient.In the event this information is protected by the Federal Confidentiality of Alcohol and Drug Abuse Patient Records regulations: The Federal rules restrict any use of the information to criminally investigate or prosecute any alcohol or drug abuse patient.In the event this information is protected by the Federal Confidentiality of Alcohol and Drug Abuse Patient Records regulations: The Federal rules restrict any use of the information to criminally investigate or prosecute any alcohol or drug abuse patient.In the event this information is protected by the Federal Confidentiality of Alcohol and Drug Abuse Patient Records regulations: The Federal rules restrict any use of the information to criminally investigate or prosecute any alcohol or drug abuse patient.In the event this information is protected by the Federal Confidentiality of Alcohol and Drug Abuse Patient Records regulations: The Federal rules restrict any use of the information to criminally investigate or prosecute any alcohol or drug abuse patient.In the event this information is protected by the Federal Confidentiality of Alcohol and Drug Abuse Patient Records regulations: The Federal rules restrict any use of the information to criminally investigate or prosecute any alcohol or drug abuse patient.In the event this information is protected by the Federal Confidentiality of Alcohol and Drug Abuse Patient Records regulations: The Federal rules restrict any use of the information to criminally investigate or prosecute any alcohol or drug abuse patient.In the event this information is protected by the Federal Confidentiality of Alcohol and Drug Abuse Patient Records regulations: The Federal rules restrict any use of the information to criminally investigate or prosecute any alcohol or drug abuse patient.In the event this information is protected by the Federal Confidentiality of Alcohol and Drug Abuse Patient Records regulations: The Federal rules restrict any use of the information to criminally investigate or prosecute any alcohol or drug abuse patient.In the event this information is protected by the Federal Confidentiality of Alcohol and Drug Abuse Patient Records regulations: The Federal rules restrict any use of the information to criminally investigate or prosecute any alcohol or drug abuse patient.In the event this information is protected by the Federal Confidentiality of Alcohol and Drug Abuse Patient Records regulations: The Federal rules restrict any use of the information to criminally investigate or prosecute any alcohol or drug abuse patient.In the event this information is protected by the Federal Confidentiality of Alcohol and Drug Abuse Patient Records regulations: The Federal rules restrict any use of the information to criminally investigate or prosecute any alcohol or drug abuse patient.In the event this information is protected by the Federal Confidentiality of Alcohol and Drug Abuse Patient Records regulations: The Federal rules restrict any use of the information to criminally investigate or prosecute any alcohol or drug abuse patient.In the event this information is protected by the Federal Confidentiality of Alcohol and Drug Abuse Patient Records regulations: The Federal rules restrict any use of the information to criminally investigate or prosecute any alcohol or drug abuse patient.In the event this information is protected by the Federal Confidentiality of Alcohol and Drug Abuse Patient Records regulations: The Federal rules restrict any use of the information to criminally investigate or prosecute any alcohol or drug abuse patient.In the event this information is protected by the Federal Confidentiality of Alcohol and Drug Abuse Patient Records regulations: The Federal rules restrict any use of the information to criminally investigate or prosecute any alcohol or drug abuse patient.In the event this information is protected by the Federal Confidentiality of Alcohol and Drug Abuse Patient Records regulations: The Federal rules restrict any use of the information to criminally investigate or prosecute any alcohol or drug abuse patient.In the event this information is protected by the Federal Confidentiality of Alcohol and Drug Abuse Patient Records regulations: The Federal rules restrict any use of the information to criminally investigate or prosecute any alcohol or drug abuse patient.In the event this information is protected by the Federal Confidentiality of Alcohol and Drug Abuse Patient Records regulations: The Federal rules restrict any use of the information to criminally investigate or prosecute any alcohol or drug abuse patient.In the event this information is protected by the Federal Confidentiality of Alcohol and Drug Abuse Patient Records regulations: The Federal rules restrict any use of the information to criminally investigate or prosecute any alcohol or drug abuse patient.In the event this information is protected by the Federal Confidentiality of Alcohol and Drug Abuse Patient Records regulations: The Federal rules restrict any use of the information to criminally investigate or prosecute any alcohol or drug abuse patient.In the event this information is protected by the Federal Confidentiality of Alcohol and Drug Abuse Patient Records regulations: The Federal rules restrict any use of the information to criminally investigate or prosecute any alcohol or drug abuse patient.In the event this information is protected by the Federal Confidentiality of Alcohol and Drug Abuse Patient Records regulations: The Federal rules restrict any use of the information to criminally investigate or prosecute any alcohol or drug abuse patient.In the event this information is protected by the Federal Confidentiality of Alcohol and Drug Abuse Patient Records regulations: The Federal rules restrict any use of the information to criminally investigate or prosecute any alcohol or drug abuse patient.In the event this information is protected by the Federal Confidentiality of Alcohol and Drug Abuse Patient Records regulations: The Federal rules restrict any use of the information to criminally investigate or prosecute any alcohol or drug abuse patient.In the event this information is protected by the Federal Confidentiality of Alcohol and Drug Abuse Patient Records regulations: The Federal rules restrict any use of the information to criminally investigate or prosecute any alcohol or drug abuse patient.In the event this information is protected by the Federal Confidentiality of Alcohol and Drug Abuse Patient Records regulations: The Federal rules restrict any use of the information to criminally investigate or prosecute any alcohol or drug abuse patient.In the event this information is protected by the Federal Confidentiality of Alcohol and Drug Abuse Patient Records regulations: The Federal rules restrict any use of the information to criminally investigate or prosecute any alcohol or drug abuse patient.In the event this information is protected by the Federal Confidentiality of Alcohol and Drug Abuse Patient Records regulations: The Federal rules restrict any use of the information to criminally investigate or prosecute any alcohol or drug abuse patient.In the event this information is protected by the Federal Confidentiality of Alcohol and Drug Abuse Patient Records regulations: The Federal rules restrict any use of the information to criminally investigate or prosecute any alcohol or drug abuse patient.In the event this information is protected by the Federal Confidentiality of Alcohol and Drug Abuse Patient Records regulations: The Federal rules restrict any use of the information to criminally investigate or prosecute any alcohol or drug abuse patient.In the event this information is protected by the Federal Confidentiality of Alcohol and Drug Abuse Patient Records regulations: The Federal rules restrict any use of the information to criminally investigate or prosecute any alcohol or drug abuse patient.In the event this information is protected by the Federal Confidentiality of Alcohol and Drug Abuse Patient Records regulations: The Federal rules restrict any use of the information to criminally investigate or prosecute any alcohol or drug abuse patient.In the event this information is protected by the Federal Confidentiality of Alcohol and Drug Abuse Patient Records regulations: The Federal rules restrict any use of the information to criminally investigate or prosecute any alcohol or drug abuse patient.In the event this information is protected by the Federal Confidentiality of Alcohol and Drug Abuse Patient Records regulations: The Federal rules restrict any use of the information to criminally investigate or prosecute any alcohol or drug abuse patient.In the event this information is protected by the Federal Confidentiality of Alcohol and Drug Abuse Patient Records regulations: The Federal rules restrict any use of the information to criminally investigate or prosecute any alcohol or drug abuse patient.In the event this information is protected by the Federal Confidentiality of Alcohol and Drug Abuse Patient Records regulations: The Federal rules restrict any use of the information to criminally investigate or prosecute any alcohol or drug abuse patient.In the event this information is protected by the Federal Confidentiality of Alcohol and Drug Abuse Patient Records regulations: The Federal rules restrict any use of the information to criminally investigate or prosecute any alcohol or drug abuse patient.In the event this information is protected by the Federal Confidentiality of Alcohol and Drug Abuse Patient Records regulations: The Federal rules restrict any use of the information to criminally investigate or prosecute any alcohol or drug abuse patient.In the event this information is protected by the Federal Confidentiality of Alcohol and Drug Abuse Patient Records regulations: The Federal rules restrict any use of the information to criminally investigate or prosecute any alcohol or drug abuse patient.In the event this information is protected by the Federal Confidentiality of Alcohol and Drug Abuse Patient Records regulations: The Federal rules restrict any use of the information to criminally investigate or prosecute any alcohol or drug abuse patient.In the event this information is protected by the Federal Confidentiality of Alcohol and Drug Abuse Patient Records regulations: The Federal rules restrict any use of the information to criminally investigate or prosecute any alcohol or drug abuse patient.In the event this information is protected by the Federal Confidentiality of Alcohol and Drug Abuse Patient Records regulations: The Federal rules restrict any use of the information to criminally investigate or prosecute any alcohol or drug abuse patient.In the event this information is protected by the Federal Confidentiality of Alcohol and Drug Abuse Patient Records regulations: The Federal rules restrict any use of the information to criminally investigate or prosecute any alcohol or drug abuse patient.In the event this information is protected by the Federal Confidentiality of Alcohol and Drug Abuse Patient Records regulations: The Federal rules restrict any use of the information to criminally investigate or prosecute any alcohol or drug abuse patient.In the event this information is protected by the Federal Confidentiality of Alcohol and Drug Abuse Patient Records regulations: The Federal rules restrict any use of the information to criminally investigate or prosecute any alcohol or drug abuse patient.In the event this information is protected by the Federal Confidentiality of Alcohol and Drug Abuse Patient Records regulations: The Federal rules restrict any use of the information to criminally investigate or prosecute any alcohol or drug abuse patient.In the event this information is protected by the Federal Confidentiality of Alcohol and Drug Abuse Patient Records regulations: The Federal rules restrict any use of the information to criminally investigate or prosecute any alcohol or drug abuse patient.In the event this information is protected by the Federal Confidentiality of Alcohol and Drug Abuse Patient Records regulations: The Federal rules restrict any use of the information to criminally investigate or prosecute any alcohol or drug abuse patient.[facility] the event this information is protected by the Federal Confidentiality of Alcohol and Drug Abuse Patient Records regulations: The Federal rules restrict any use of the information to criminally investigate or prosecute any alcohol or drug abuse patient.In the event this information is protected by the Federal Confidentiality of Alcohol and Drug Abuse Patient Records regulations: The Federal rules restrict any use of the information to criminally investigate or prosecute any alcohol or drug abuse patient.In the event this information is protected by the Federal Confidentiality of Alcohol and Drug Abuse Patient Records regulations: The Federal rules restrict any use of the information to criminally investigate or prosecute any alcohol or drug abuse patient.In the event this information is protected by the Federal Confidentiality of Alcohol and Drug Abuse Patient Records regulations: The Federal rules restrict any use of the information to criminally investigate or prosecute any alcohol or drug abuse patient.In the event this information is protected by the Federal Confidentiality of Alcohol and Drug Abuse Patient Records regulations: The Federal rules restrict any use of the information to criminally investigate or prosecute any alcohol or drug abuse patient.In the event this information is protected by the Federal Confidentiality of Alcohol and Drug Abuse Patient Records regulations: The Federal rules restrict any use of the information to criminally investigate or prosecute any alcohol or drug abuse patient.In the event this information is protected by the Federal Confidentiality of Alcohol and Drug Abuse Patient Records regulations: The Federal rules restrict any use of the information to criminally investigate or prosecute any alcohol or drug abuse patient.In the event this information is protected by the Federal Confidentiality of Alcohol and Drug Abuse Patient Records regulations: The Federal rules restrict any use of the information to criminally investigate or prosecute any alcohol or drug abuse patient.In the event this information is protected by the Federal Confidentiality of Alcohol and Drug Abuse Patient Records regulations: The Federal rules restrict any use of the information to criminally investigate or prosecute any alcohol or drug abuse patient. Reason for Visit (unrecogniz ed section and [...] Monitoring Outreach 06/18/2024 Reason Onset Date Comments [facility] 07/10/2024 Telephonic Outre ach Reason Onset Date Comments [facility] 07/11/2024 Telephonic Outre ach Reason Onset Date Comments Refill Request 07/22/2024 Reason Onset Date Comments [facility] 07/24/2024 Chronic Disease Management Routine Call Reason Comments "severe cramping in my sides now and aga in" Reason Onset Date Comments [facility] 08/21/2024 Chronic Disease Management Routine Call Reason Comments Cough Chest congestion, he ad congestion, fatigue, headache, increase in phlegm and turned green x 3 days Reason Comments Medication Problem Reason Comments Cough Chest congestion, in crease in SOB, wheeze, x weeksFinished zpack 08-29 Reason Comments Patient Update Reason Comments Express Care follow-up Reason Comments Shortness of Breath Reason Comments Consult Reason Onset Date Comments Refill Request 09/17/2024 Reason Onset Date Comments [facility] 09/20/2024 Chronic Disease Management OON ED Follow up Call Reason Onset Date Comments [facility] 09/24/2024 CHRONIC DISEASE MANAGEMENT OON ED Follow up Call Reason Onset Date Comments Population Health Navigation Outreach 12/09/2024 Maryjane/Workbench/ACO Reason Comments Patient concern Reason Comments Cough Reason Comments Medicare Wellness Exam 5 month follow-up Reason Comments Pain R hip pain x 3 days, pain is increasing, pain with lifting leg, trouble with daily duties due to pain Reason Comments Follow Up UC right hip pain. H urts to even lift leg from gas pedal to brake. No improvement. Reason Comments Right Hip Pain Referred by Blanca jordan Specialty Diagnoses / Procedures Referred By Domingo main Referred To Contact Orthopedics Diagnoses Acute right hip pain Procedures OFFICE/OUTPATIENT [facility] 60 MINUTES Blanca Tilley M, TECHNICAL SUPPORT SPECIALIST.GROUP HOME MANAGER [address] [place] [address] Phone: tel: fax: Referral ID Status Reason Start Date Expiration Date V isits Requested Visits Authorized [id number] Closed PCP Requested Referral 07/07/2025 07/07/2026 1 1 Care Teams (unrecognized sec tion and content) [...] 2024 End: November 05, 2024 Radha Roberts PARKING WORKER, PARKING WORKER-C Attending Provider Active Start: November 05, 2024 End: November 05, 2024 Radha Roberts PARKING WORKER, PARKING WORKER-C Referring Provider Active Start: November 05, 2024 [...] 2024 End: November 06, 2024 Radha Roberts PARKING WORKER, PARKING WORKER-C Attending Provider Active Start: November 06, 2024 End: November 06, 2024 Radha Roberts PARKING WORKER, PARKING WORKER-C Referring Provider Active Start: November 06, 2024 End: November 06, 2024 Dr. Carrillo Malave MD Other Provider Active St art: November 06, 2024 End: November 06, 2024 Team Status: Active Member Role Status Dates Dr. George Vázquez MD Primary Care Provider Active Start: November 11, 2024 Radha Roberts PARKING WORKER, PARKING WORKER-C Referring Provider Active Start: November 11, 2024 Radha Roberts PARKING WORKER, PARKING WORKER-C Other Provider Active Start: November 11, 2024 [...] Provider Active S tart: February 05, 2025 Ice Cream Freezer Helper Relationship Specialty Start Date End Date George Vázquez MD [address] [place] [address] PCP - General Internal Medicine 05/08/12 Josh Reveles RN Instrumentation Chemist Internal Medicine 02/10/21 Juventino Ulrich MD [address] [place] [address] Primary Staff Physician Cardiology 11/08/21 Ice Cream Freezer Helper Relationship Specialty Start Date End Date George Vázquez MD [address] [place], [place] [address] PCP - General Internal Medicine 05/08/12 Josh Reveles RN Instrumentation Chemist Internal Medicine 02/10/21 Juventino Ulrich MD [address] [place] [address] Primary Staff Physician Cardiology 11/08/21 Ice Cream Freezer Helper Relationship Specialty Start Date End Date George Vázquez MD [address] [place] [address] PCP - General Internal Medicine 05/08/12 Josh Reveles, mill platform supervisorInstrumentation Chemist Internal Medicine 02/10/21 Juventino Ulrich MD [address] [place] [address] Primary Staff Physician Cardiology 11/08/21 Ice Cream Freezer Helper Relationship Specialty Start Date End Date George Vázquez MD [address] [place] [address] PCP - General Internal Medicine 05/08/12 Josh Reveles mill platform supervisorInstrumentation Chemist Internal Medicine 02/10/21 Juventino Ulrich MD [address] [place] [address] Primary Staff Physician Cardiology 11/08/21 Ice Cream Freezer Helper Relationship Specialty Start Date End Date George Vázquez MD [address] [place] [address] PCP - General Internal Medicine 05/08/12 Josh Reveles RN Instrumentation Chemist Internal Medicine 02/10/21 Juventino Ulrich MD [address] [place] [address] Primary Staff Physician Cardiology 11/08/21 Ice Cream Freezer Helper Relationship Specialty Start Date End Date George Vázquez MD [address] [place] [address] PCP - General Internal Medicine 05/08/12 Josh Reveles mill platform supervisorInstrumentation Chemist Internal Medicine 02/10/21 Juventino Ulrich MD [address] [place] [address] Primary Staff Physician Cardiology 11/08/21 Ice Cream Freezer Helper Relationship Specialty Start Date End Date George Vázquez MD [address] [place] [address] PCP - General Internal Medicine 05/08/12 Josh Reveles, mill platform supervisorInstrumentation Chemist Internal Medicine 02/10/21 Juventino Ulrich MD [address] [place] [address] Primary Staff Physician Cardiology 11/08/21 Ice Cream Freezer Helper Relationship Specialty Start Date End Date George Vázquez MD [address] [place] [address] PCP - General Internal Medicine 05/08/12 Josh Reveles mill platform supervisorInstrumentation Chemist Internal Medicine 02/10/21 Juventino Ulrich MD [address] [place] [address] Primary Staff Physician Cardiology 11/08/21 Ice Cream Freezer Helper Relationship Specialty Start Date End Date George Vázquez MD [address] [place] [address] PCP - General Internal Medicine 05/08/12 Josh Reveles mill platform supervisorInstrumentation Chemist Internal Medicine 02/10/21 Juventino Ulrich MD [address] [place] [address] Primary Staff Physician Cardiology 11/08/21 Ice Cream Freezer Helper Relationship Specialty Start Date End Date George Vázquez MD [address] [place] [address] PCP - General Internal Medicine 05/08/12 Josh Reveles mill platform supervisorInstrumentation Chemist Internal Medicine 02/10/21 Juventino Ulrich MD [address] [place] [address] Primary Staff Physician Cardiology 11/08/21 Ice Cream Freezer Helper Relationship Specialty Start Date End Date George Vázquez MD [address] [place] [address] PCP - General Internal Medicine 05/08/12 Darlyn Moreno, mill platform supervisorInstrumentation Chemist Internal Medicine 02/10/21 Juventino Ulrich MD [address] [place] [address] Primary Staff Physician Cardiology 11/08/21 Ice Cream Freezer Helper Relationship Specialty Start Date End Date George Vázquez MD [address] [place] [address] PCP - General Internal Medicine 05/08/12 Darlyn Moreno mill platform supervisorInstrumentation Chemist Internal Medicine 02/10/21 Juventino Ulrich MD [address] [place] [address] Primary Staff Physician Cardiology 11/08/21 Ice Cream Freezer Helper Relationship Specialty Start Date End Date George Vázquez MD [address] [place] [address] PCP - General Internal Medicine 05/08/12 Darlyn Mroeno mill platform supervisorInstrumentation Chemist Internal Medicine 02/10/21 Juventino Ulrich MD [address] [place] [address] Primary Staff Physician Cardiology 11/08/21 Ice Cream Freezer Helper Relationship Specialty Start Date End Date George Vázquez MD [address] [place] [address] PCP - General Internal Medicine 05/08/12 Darlyn Moreno, mill platform supervisorInstrumentation Chemist Internal Medicine 02/10/21 Juventino Ulrich MD [address] [facility] [place] [address] Primary Staff Physician Cardiology 11/08/21 Ice Cream Freezer Helper Relationship Specialty Start Date End Date George Vázquez MD [address] [place] [address] PCP - General Internal Medicine 05/08/12 Darlyn Moreno RN Instrumentation Chemist Internal Medicine 02/10/21 Juventino Ulrich MD [address] [place] [address] Primary Staff Physician Cardiology 11/08/21 Team Status: Active Member Role Status Dates Dr. George Vázquez MD Family Provider Active Dr. George Vázquez MD Primary Care Provider Active Team Status: Inactive Member Role Status Dates Dr. George Vázquez MD Primary Care Provider, Refer ring Provider Active Cristiane Serna PARKING WORKER, PARKING WORKER-C Attending Provider Active Team Status: Active Member Role Status Dates Dr. George Vázquez MD Primary Care Provider Active Pablo Whitney MD Emergency Provider Active Dr. Judy Henriquez MD Admit Provider, Other Provider Active Dr. Ling Betancur DO Attending Provider, Other Provide r Active Team Status: Inactive Member Role Status Dates Dr. George Vázquez MD Primary Care Provider, Refer ring Provider Active Radha Roberts PARKING WORKER, PARKING WORKER-C Attending Provider Active Team Status: Inactive Member [...] Vázquez MD Primary Care Provider Active Dr. Dayton Zarate DPM Attending Provider, Referring P ayana Active Team Status: Inactive Member Role Status Dates Dr. George Vázquez MD Primary Care Provider Active Dr. Aleksey Javier DO Attending Provider, Referring Provider Active Team Status: Inactive Member Role Status Dates Dr. George Vázquez MD Primary Care Provider Active Cristiane Serna PARKING WORKER, PARKING WORKER-C Attending Provider, Referrin g Provider Active Team Status: Inactive Member Role Status Dates Dr. George Vázquez MD Primary Care Provider Active Radha Rboerts PARKING WORKER, PARKING WORKER-C Attending Provider Active Team Status: Inactive Member [...] MD Primary Care Provider Active Radha Roberts PARKING WORKER, PARKING WORKER-C Attending Provider, Referrin g Provider Active Ice Cream Freezer Helper Relationship Specialty Start Date End Date George Vázquez MD [address] [place], [place] [address] PCP - General Internal Medicine 05/08/12 Darlyn Moreno RN Instrumentation Chemist Internal Medicine 02/10/21 Juventino Ulrich MD [address] [place], [place] [address] Primary Staff Physician Cardiology 11/08/21 Ice Cream Freezer Helper Relationship Specialty Start Date End Date George Vázquez MD [address] [place], [place] [address] PCP - General Internal Medicine 05/08/12 Darlyn Moreno RN Instrumentation Chemist Internal Medicine 02/10/21 Juventino Ulrich MD [address] [place] [address] Primary Staff Physician Cardiology 11/08/21 Team Status: [...] Dr. George Vázquez MD Primary Care P rovider, Attending Provider, Referring Provider Active Dr. Mark Giles MD Other Provider Active Dr. Aleksey Javier DO Other Provider Active Team Status: Inactive Member Role Status Dates Dr. George Vázquez MD Primary Care Provider Active Dr. Aleksey Javier DO Attending Provider Active Cristiane Serna PARKING WORKER, PARKING WORKER-C Referring Provider Active Team Status: Inactive Member [...] MD Primary Care Provider Active Radha Roberts PARKING WORKER, PARKING WORKER-C Referring Provider, Other Pr ovider Active Dr. Tevin Nelson DO Attending Provider Active Ice Cream Freezer Helper Relationship Specialty Start Date End Date George Vázquez MD [address] [place] [address] PCP - General Internal Medicine 05/08/12 Darlyn Moreno RN Instrumentation Chemist Internal Medicine 02/10/21 Juventino Ulrich MD [address] [place], [place] [id number] Primary Staff Physician Cardiology 11/08/21 Team Status: Active Member Role Status Dates Dr. George Vázquez MD Primary Care Provider Active Amada Mahoney PA, PA Referring Provider, Other Provider Active Dr. Kal Bartholomew MD Attending Provider Active Team Status: Inactive Member Role Status Dates Dr. George Vázquez MD Primary Care Provider Active Amada DURAN, PA Attending Provider, Referr ing Provider Active Ice Cream Freezer Helper Relationship Specialty Start Date End Date George Vázquez MD [address] [place] [address] PCP - General Internal Medicine 05/08/12 Darlyn Moreno RN Instrumentation Chemist Internal Medicine 02/10/21 Juventino Ulrihc MD [address] [place] [address] Primary Staff Physician Cardiology 11/08/21 Ice Cream Freezer Helper Relationship Specialty Start Date End Date George Vázquez MD [address] [place] [address] PCP - General Internal Medicine 05/08/12 Darlyn Moreno RN Instrumentation Chemist Internal Medicine 02/10/21 Juventino Ulrich MD [address] [place], [place] [address] Primary Staff Physician Cardiology 11/08/21 Team Status: Inactive Member Role Status Dates Dr. George Vázquez MD Primary Care Provider, Refer ring Provider Active Raciel DURAN, PA Attending Provider Active Team Status: Inactive Member Role Status Dates Dr. George Vázquez MD Primary Care Provider Active Radha Roberts PARKING WORKER, PARKING WORKER-C Attending Provider, Veronica g Provider Active Gloria Cochran PARKING WORKER, PARKING WORKER-C Other Provider Active Ice Cream Freezer Helper Relationship Specialty Start Date End Date George Vázquez MD [address] [place] [address] PCP - General Internal Medicine 05/08/12 Darlyn Moreno, mill platform supervisorInstrumentation Chemist Internal Medicine 02/10/21 Juventino Ulrich MD [address] [place] [address] Primary Staff Physician Cardiology 11/08/21 Ice Cream Freezer Helper Relationship Specialty Start Date End Date George Vázquez MD [address] [place] [address] PCP - General Internal Medicine 05/08/12 Darlyn Moreno mill platform supervisorInstrumentation Chemist Internal Medicine 02/10/21 Juventino Ulrich MD [address] [place] [address] Primary Staff Physician Cardiology 11/08/21 Ice Cream Freezer Helper Relationship Specialty Start Date End Date George Vázquez MD [address] [place] [address] PCP - General Internal Medicine 05/08/12 Darlyn Moreno mill platform supervisorInstrumentation Chemist Internal Medicine 02/10/21 Juventino Ulrich MD [address] [place] [address] Primary Staff Physician Cardiology 11/08/21 Ice Cream Freezer Helper Relationship Specialty Start Date End Date George Vázquez MD [address] [place] [address] PCP - General Internal Medicine 05/08/12 Darlyn Moreno, mill platform supervisorInstrumentation Chemist Internal Medicine 02/10/21 Juventino Ulrich MD [address] [place] [address] Primary Staff Physician Cardiology 11/08/21 Ice Cream Freezer Helper Relationship Specialty Start Date End Date George Vázquez MD [address] [place], [place] [address] PCP - General Internal Medicine 05/08/12 Darlyn Moreno RN Instrumentation Chemist Internal Medicine 02/10/21 Juventino Ulrich MD [address] [place] [address] Primary Staff Physician Cardiology 11/08/21 Team Status: Inactive Member Role Status Dates Dr. George Vázquez MD Primary Care Provider, Refer ring Provider Active Dr. Farooq Hall MD Attending Provider Active Team Status: Active Member Role Status Dates Dr. George Vázquez MD Primary Care Provider Active Dr. Kal Bartholomew MD Attending Provider Active Ice Cream Freezer Helper Relationship Specialty Start Date End Date George Vázquez MD [address] [place] [address] PCP - General Internal Medicine 05/08/12 Darlyn Moreno RN Instrumentation Chemist Internal Medicine 02/10/21 Juventino Ulrich MD [address] [place], [place] [address] Primary Staff Physician Cardiology 11/08/21 Ice Cream Freezer Helper Relationship Specialty Start Date End Date George Vázquez MD [address] [place] [address] PCP - General Internal Medicine 05/08/12 Darlyn Moreno, mill platform supervisorInstrumentation Chemist Internal Medicine 02/10/21 Juventino Ulrich MD [address] [place], [place] [id number] Primary Staff Physician Cardiology 11/08/21 Ice Cream Freezer Helper Relationship Specialty Start Date End Date George Vázquez MD [address] [place] [address] PCP - General Internal Medicine 05/08/12 Darlyn Moreno, mill platform supervisorInstrumentation Chemist Internal Medicine 02/10/21 Juventino Ulrich MD [address] [place] [address] Primary Staff Physician Cardiology 11/08/21 Ice Cream Freezer Helper Relationship Specialty Start Date End Date George Vázquez MD [address] [place] [address] PCP - General Internal Medicine 05/08/12 Darlyn Moreno RN Instrumentation Chemist Internal Medicine 02/10/21 Juventino Ulrich MD [address] [place] [address] Primary Staff Physician Cardiology 11/08/21 Ice Cream Freezer Helper Relationship Specialty Start Date End Date George Vázquez MD [address] [place] [address] PCP - General Internal Medicine 05/08/12 Darlyn Moreno mill platform supervisorInstrumentation Chemist Internal Medicine 02/10/21 Juventino Ulrich MD [address] [place], [place] [id number] Primary Staff Physician Cardiology 11/08/21 Ice Cream Freezer Helper Relationship Specialty Start Date End Date Vázquez, Rosalia, MD [address] [place] [address] PCP - General Internal Medicine 05/08/12 Darlyn Moreno, mill platform supervisorInstrumentation Chemist Internal Medicine 02/10/21 Juventino Ulrich MD [address] [place] [address] Primary Staff Physician Cardiology 11/08/21 Ice Cream Freezer Helper Relationship Specialty Start Date End Date George Vázquez MD [address] [place] [address] PCP - General Internal Medicine 05/08/12 Darlyn Moreno mill platform supervisorInstrumentation Chemist Internal Medicine 02/10/21 Juventino Ulrich MD [address] [place] [address] Primary Staff Physician Cardiology 11/08/21 Ice Cream Freezer Helper Relationship Specialty Start Date End Date George Vázquez MD [address] [place] [address] PCP - General Internal Medicine 05/08/12 Darlyn Moreno mill platform supervisorInstrumentation Chemist Internal Medicine 02/10/21 Juventino Ulrich MD [address] [place] [address] Primary Staff Physician Cardiology 11/08/21 Ice Cream Freezer Helper Relationship Specialty Start Date End Date George Vázquez MD [address] [place] [address] PCP - General Internal Medicine 05/08/12 Ice Cream Freezer Helper Relationship Specialty Start Date End Date George Vázquez MD [address] [facility] [place] [address] PCP - General Internal Medicine 05/08/12 Darlyn Moreno, mill platform supervisorInstrumentation Chemist Internal Medicine 02/10/21 Juventino Ulrich MD [address] [place] [address] Primary Staff Physician Cardiology 11/08/21 Ice Cream Freezer Helper Relationship Specialty Start Date End Date George Vázquez MD [address] [place] [address] PCP - General Internal Medicine 05/08/12 Darlyn Moreno, mill platform supervisorInstrumentation Chemist Internal Medicine 02/10/21 Juventino Ulrich MD [address] [place] [address] Primary Staff Physician Cardiology 11/08/21 Ice Cream Freezer Helper Relationship Specialty Start Date End Date George Vázquez MD [address] [facility] [place] [address] PCP - General Internal Medicine 05/08/12 Darlyn Moreno, mill platform supervisorInstrumentation Chemist Internal Medicine 02/10/21 Juventino Ulrich MD [address] [place] [address] Primary Staff Physician Cardiology 11/08/21 Ice Cream Freezer Helper Relationship Specialty Start Date End Date George Vázquez MD [address] [facility] [place] [address] PCP - General Internal Medicine 05/08/12 Darlyn Moreno, mill platform supervisorInstrumentation Chemist Internal Medicine 02/10/21 Juventino Ulrich MD [address] [place], [place] [id number] Primary Staff Physician Cardiology 11/08/21 Ice Cream Freezer Helper Relationship Specialty Start Date End Date George Vázquez MD [address] [place] [address] PCP - General Internal Medicine 05/08/12 Darlyn Moreno, mill platform supervisorInstrumentation Chemist Internal Medicine 02/10/21 Juventino Ulrich MD [address] [facility] [place] [address] Primary Staff Physician Cardiology 11/08/21 Ice Cream Freezer Helper Relationship Specialty Start Date End Date George Vázquez MD [address] [place] [address] PCP - General Internal Medicine 05/08/12 Darlyn Moreno, mill platform supervisorInstrumentation Chemist Internal Medicine 02/10/21 Juventino Ulrich MD [address] [place] [address] Primary Staff Physician Cardiology 11/08/21 Ice Cream Freezer Helper Relationship Specialty Start Date End Date George Vázquez MD [address] [place] [address] PCP - General Internal Medicine 05/08/12 Darlyn Moreno, mill platform supervisorInstrumentation Chemist Internal Medicine 02/10/21 Juventino Ulrich MD [address] [place], [place] [id number] Primary Staff Physician Cardiology 11/08/21 Ice Cream Freezer Helper Relationship Specialty Start Date End Date George Vázquez MD [address] [facility] [place] [address] PCP - General Internal Medicine 05/08/12 Darlyn Moreno, mill platform supervisorInstrumentation Chemist Internal Medicine 02/10/21 Juventino Ulrich MD [address] [place], [place] [id number] Primary Staff Physician Cardiology 11/08/21 Ice Cream Freezer Helper Relationship Specialty Start Date End Date George Vázquez MD [address] [place] [address] PCP - General Internal Medicine 05/08/12 Juventino Ulrich MD [address] [facility] [place] [place] [id number] Primary Staff Physician Cardiology 11/08/21 Blanca Tilley, TECHNICAL SUPPORT SPECIALIST.GROUP HOME MANAGER [address] [place] [address] Paediatric Surgeon Internal Medicine 10/07/24 Ice Cream Freezer Helper Relationship Specialty Start Date End Date George Vázquez MD [address] [place] [address] PCP - General Internal Medicine 05/08/12 Juventino Ulrich MD [address] [place], [place] [id number] Primary Staff Physician Cardiology 11/08/21 Blanca Tilley, TECHNICAL SUPPORT SPECIALIST.GROUP HOME MANAGER [address] [facility] [place] [address] Paediatric Surgeon Internal Medicine 10/07/24 Ice Cream Freezer Helper Relationship Specialty Start Date End Date George Vázquez MD [address] [facility], [place] [address] PCP - General Internal Medicine 05/08/12 Juventino Ulrich MD [address] [place] [address] Primary Staff Physician Cardiology 11/08/21 Blanca Tilley, TECHNICAL SUPPORT SPECIALIST.GROUP HOME MANAGER [address] [facility] [place] [address] Paediatric Surgeon Internal Medicine 10/07/24 Ice Cream Freezer Helper Relationship Specialty Start Date End Date George Vázquez MD [address] [facility], [place] [address] PCP - General Internal Medicine 05/08/12 Juventino Ulrich MD [address] [place] [address] Primary Staff Physician Cardiology 11/08/21 Blanca Tilley, TECHNICAL SUPPORT SPECIALIST.GROUP HOME MANAGER [address] [facility] [place] [address] [facility] Internal Medicine 10/07/24 Team Status: Inactive Member Role Status Dates Dr. George Vázquez MD Primary Care Provider Active Start: September 17, 2024 End: September 17, 2024 Dr. Francisco Murillo MD Attending Provider Active S tart: September 17, 2024 End: September 17, 2024 Dr. Francisco Murillo MD Emergency Provider Active S tart: September 17, 2024 End: September 17, 2024 Ice Cream Freezer Helper Relationship Specialty Start Date End Date George Vázquez MD [address] [facility], [place] [address] PCP - General Internal Medicine 05/08/12 Juventino Ulrich MD [address] [place] [address] Primary Staff Physician Cardiology 11/08/21 Blanca Tilley, TECHNICAL SUPPORT SPECIALIST.GROUP HOME MANAGER [address] [place] [address] Paediatric Surgeon Internal Medicine 10/07/24 Team Status: Active Member [...] Active St art: May 03, 2025 RENEE Villagoemz Referring Provider Active St art: May 03, 2025 Team Status: Inactive Member Role/Relationship Status Dates Dr. George Vázquez MD Primary Care Provider Active Start: May 05, 2025 End: May 05, 2025 Dr. George Vázquez MD Referring Provider Active Start: May 05, 2025 End: May 05, 2025 Daniel Saeed PARKING WORKER, PARKING WORKER-C Attending Provider Active S tart: May 05, 2025 End: May 05, 2025 Team Status: Inactive Member Role/Relationship Status Dates Dr. George Vázquez MD Primary Care Provider Active Start: May 03, 2025 End: May 03, 2025 RENEE Villagomez Attending Provider Active St art: May 03, 2025 End: May 03, 2025 RENEE Villagomez Referring Provider Active St art: May 03, 2025 End: May 03, 2025 Ice Cream Freezer Helper Relationship Specialty Start Date End Date George Vázquez MD [address] [place] [address] PCP - General Internal Medicine 05/08/12 Juventino Ulrich MD [address] [place] [address] Primary Staff Physician Cardiology 11/08/21 Blanca Tilley, TECHNICAL SUPPORT SPECIALIST.GROUP HOME MANAGER [address] [place], [place] [address] Paediatric Surgeon Internal Medicine 10/07/24 Team Status: Inactive Member Role/Relationship Status Dates Dr. George Vázquez MD Primary Care Provider Active Start: May 03, 2025 End: May 03, 2025 RENEE Villagomez Attending Provider Active St art: May 03, 2025 End: May 03, 2025 RENEE Villagomez Referring Provider Active St art: May 03, 2025 End: May 03, 2025 Team Status: Inactive Member Role/Relationship Status Dates Dr. George Vázquez MD Primary Care Provider Active Start: May 05, 2025 End: May 05, 2025 Dr. George Vázquez MD Referring Provider Active Start: May 05, 2025 End: May 05, 2025 Daniel Saeed PARKING WORKER, PARKING WORKER-C Attending Provider Active S tart: May 05, 2025 End: May 05, 2025 Team Status: Inactive Member Role/Relationship Status Dates Dr. George Vázquez MD Primary Care Provider Active Start: June 14, 2025 End: June 14, 2025 Radha Roberts PARKING WORKER, PARKING WORKER-C Attending Provider Active Start: June 14, 2025 End: June 14, 2025 Radha Roberts PARKING WORKER, PARKING WORKER-C Referring Provider Active Start: June 14, 2025 End: June 14, 2025 Ice Cream Freezer Helper Relationship Specialty Start Date End Date George Vázquez MD [address] [place], [place] [address] PCP - General Internal Medicine 05/08/12 Juventino Ulrich MD [address] [place], [place] [id number] Primary Staff Physician Cardiology 11/08/21 Blanca Tilley, TECHNICAL SUPPORT SPECIALIST.GROUP HOME MANAGER [address] [place] [address] Paediatric Surgeon Internal Medicine 10/07/24 Ice Cream Freezer Helper Relationship Specialty Start Date End Date George Vázquez MD [address] [place] [address] PCP - General Internal Medicine 05/08/12 Juventino Ulrich MD [address] [place], [place] [id number] Primary Staff Physician Cardiology 11/08/21 Blanca Tilley, TECHNICAL SUPPORT SPECIALIST.GROUP HOME MANAGER [address] [place] [address] Paediatric Surgeon Internal Medicine 10/07/24 Ice Cream Freezer Helper Relationship Specialty Start Date End Date George Vázquez MD [address] [place] [address] PCP - General Internal Medicine 05/08/12 Juventino Ulrich MD [address] [place], [place] [id number] Primary Staff Physician Cardiology 11/08/21 Blanca Tilley, TECHNICAL SUPPORT SPECIALIST.GROUP HOME MANAGER [address] [place] [address] [facility] Internal Medicine 10/07/24 Ice Cream Freezer Helper Relationship Specialty Start Date End Date George Vázquez MD [address] [place] [address] PCP - General Internal Medicine 05/08/12 Juventino Ulrich MD [address] [place] [address] Primary Staff Physician Cardiology 11/08/21 Blanca Tilley, TECHNICAL SUPPORT SPECIALIST.GROUP HOME MANAGER [address] [place] [address] [facility] Internal Medicine 10/07/24 Team Status: Active Member Role/Relationship Status Dates Dr. George Vázquez MD Primary care physician Activ e Team Status: Inactive Member Role/Relationship Status Dates Dr. George Vázquez MD Primary care physician Activ e Start: May 03, 2025 End: May 03, 2025 RENEE Villagomez Attending physician Active S tart: May 03, 2025 End: May 03, 2025 RENEE Villagomez Referring Provider Active St art: May 03, 2025 End: May 03, 2025 Team Status: Inactive Member Role/Relationship Status Dates Dr. George Vázquez MD Primary care physician Activ e Start: May 05, 2025 End: May 05, 2025 Dr. George Vázquez MD Referring Provider Active Start: May 05, 2025 End: May 05, 2025 Daniel Saeed PARKING WORKER, PARKING WORKER-C Attending physician Active Start: May 05, 2025 End: May 05, 2025 Team Status: Inactive Member Role/Relationship Status Dates Dr. George Vázquez MD Primary care physician Activ e Start: June 14, 2025 End: June 14, 2025 Radha Roberts PARKING WORKER, PARKING WORKER-C Attending physician Active Start: June 14, 2025 End: June 14, 2025 Radha Roberts PARKING WORKER, PARKING WORKER-C Referring Provider Active Start: June 14, 2025 End: June 14, 2025 Team Status: Inactive Member Role/Relationship Status Dates Dr. George Vázquez MD Primary care physician Activ e Start: July 21, 2025 End: July 21, 2025 Dr. George Vázquez MD Referring Provider Active Start: July 21, 2025 End: July 21, 2025 Dr. Michael Narayan DO Attending physician Active Start: July 21, 2025 End: July 21, 2025 Team Status: Active Member Role/Relationship Status Dates Dr. George Vázquez MD Primary care physician Activ e Start: July 28, 2025 Dr. Michael Narayan DO Attending physician Active Start: July 28, 2025 Dr. Michael Narayan DO Referring Provider Active Start: July 28, 2025 Goals (unrecognized section and content) Goals may [...] BE BASED ON THE PRIMARY CLINICAL RECORDS. [employer] provides no warranty or guarantee of the accuracy or completeness of information in this document.
--- NOTE | 2025-09-04 17:48 | RAD_ITS ---
PROCEDURE: CHEST PA AND LATERAL 09/04/2025 REASON FOR EXAM: SHORTNESS OF BREATH TECHNIQUE: Procedure Code: RADCXR Modality: DX Procedure: CHEST PA AND LATERAL COMPARISON: CT chest 06/14/2025, chest x-ray 01/08/2025 FINDINGS: Hardware: Sternotomy wires and mediastinal surgical clips are present. Heart: The heart size is normal. Mediastinum: The mediastinal contour is unremarkable. Lungs: The lungs are clear. No pneumothorax or pleural effusion. Stable flattening of the hemidiaphragms. Bones: Degenerative changes are identified within the thoracic spine. RAD/Chest PA and Lateral IMPRESSION: NO ACUTE FINDINGS. [facility]
--- NOTE | 2025-09-04 17:51 | PCM.HP.STD ---
HPI - General General Date of Admission: 09/04/25 Date of Service: 09/04/25 Chief Complaint: Worsening shortness of breath on exertion HPI Narrative RAISA SMILEY, is a 70 M who presented to [facility] ED on 09/04/25 with worsening shortness of breath and exertion. Medical history significant for COPD with nocturnal hypoxia on 2 L, follows with Dr. Oerllana with pulmonology. He has ongoing shortness of breath with intermittent sputum production over the past 2-1/2 weeks. He completed a course of antibiotics and prednisone 40 mg without much improvement, so a second course of doxycycline was ordered for him a few days ago and his prednisone was increased to 60 mg. Has been using his Symbicort and nebulizer treatments at home as well. However he continues to have minimal improvement so he came into the ED for further evaluation today. In the ED he was satting in the mid 90s on 3 L nasal cannula at rest, was hypertensive to the 170s systolic, was otherwise in normal sinus rhythm and afebrile. Chest x-ray unremarkable. CBC and BMP unremarkable. Procalcitonin normal. Notably sputum culture from about 3 weeks ago showed no growth. He was given a dose of IV steroids and a DuoNeb treatment in the ED, and hospitalist was contacted for admission. I saw the patient at bedside in the ED. Patient was sitting back comfortably in bed and breathing comfortably on 3 L nasal cannula rest. On exam he did have moderate wheezing noted bilaterally throughout, no crackles noted. He denied any fevers or chills today. No other acute concerns currently. Will be admitted for further management. [facility] Medical History Essential hypertension Alcohol use History of steroid therapy Arthritis High cholesterol Smoker On home oxygen therapy COPD (chronic obstructive pulmonary disease) Shortness of breath on exertion History of pain when walking Hypertension History of echocardiogram History of stress test Cardiology follow-up encounter Gallstone Nodule of lower lobe of left lung Perforated diverticulum of large intestine Presence of stent in coronary artery (~11/12/21) Easy bruising Excessive bleeding History of ulceration Gastric reflux History of diverticulitis Chronic bronchitis Nicotine dependence Osteoarthritis DDD (degenerative disc disease), lumbar Atherosclerosis of coronary artery of [place] heart without angina pectoris Atherosclerosis of coronary artery bypass graft without angina pectoris Hyperlipidemia Home Medications Medication Instructions Recorded Last Taken Type clopidogrel 75 mg tablet (Plavix) 75 mg PO DAILY anti platelet #90 10/04/21 11/26/22 Rx tabs albuterol sulfate 90 mcg/actuation 2 puff inhalation Q6H PRN PRN 07/30/24 Unknown Rx aerosol inhaler Shortness Of Breath #8.5 grams budesonide-formoterol HFA 160 2 puff inhalation BID #3 ea 07/30/24 Unknown Rx mcg-4.5 mcg/actuation aerosol inhaler (Symbicort) isosorbide mononitrate 30 mg 30 mg PO DAILY #90 TABLETS 09/09/24 Unknown Rx tablet,extended release 24 hr ipratropium 0.5 mg-albuterol 3 mg 3 ml continuous nebulization Q6H 09/10/24 Unknown Rx (2.5 mg base)/3 mL nebulization PRN shortness of breath or soln wheezing #180 mL metoprolol tartrate 50 mg tablet 50 mg PO BID #180 tabs 11/05/24 Unknown Rx losartan 50 mg tablet 50 mg PO QPM #30 tabs 01/08/25 Unknown Rx furosemide 40 mg tablet 20 mg PO QAM PRN 05/05/25 Unknown History potassium chloride 10 mEq 10 meq PO QDAY 05/05/25 Unknown History capsule,extended release rosuvastatin 40 mg tablet 40 mg PO QHS #90 tabs 07/14/25 Unknown Rx tramadol 50 mg tablet 50 mg PO Q8 PRN pain 07/21/25 Unknown History Allergy/AdvReac Type Severity Reaction Status Date / Time levofloxacin (From Levaquin) AdvReac Severe tendonitis Verified 09/04/25 16:01 Family History Father CAD (coronary artery disease) Brother Hypertension Grandfather Pancreatic cancer Grandmother Heart disease Surgical History History of laparoscopic cholecystectomy S/P laparoscopic cholecystectomy Status post double vessel coronary artery bypass Presence of coronary angioplasty implant and graft (~09/29/21) Hx of left cataract extraction Hx of right cataract extraction History of cardiac catheterization History of colectomy S/p bilateral carpal tunnel release H/O coronary artery bypass surgery (10/14/96) History of left knee replacement History of appendectomy History of tonsillectomy History of partial colectomy Social History Smoking Status: Current every day smoker tobacco type: cigarettes alcohol intake: current alcohol intake frequency: 0-2 drinks per day substance use type: does not use caffeine: Yes Type: coffee Number of servings: 2 what type of physical activity do you participate in: none seatbelt use: always do you feel safe at home: Yes ROS Constitutional Constitutional: Reports fatigue; Denies chills, fever(s) or weakness Cardiovascular Cardiovascular: Denies chest pain, edema, lightheadedness, orthopnea or palpitations Respiratory/Chest Respiratory/Chest: Reports cough, shortness of breath with exertion and wheezing; Denies productive cough or shortness of breath at rest Musculoskeletal Musculoskeletal: Denies arthralgias or myalgias Neurologic Neurologic: Denies dizziness, focal weakness or headache(s) Vital Signs Vital Signs Vital Signs: 09/04/25 15:57 09/04/25 16:00 09/04/25 16:18 Temperature 98 F 98 F Temperature Source Oral Oral Pulse Rate 97 94 Respiratory Rate 26 H 26 H Respiratory Effort Respiratory Depth Respiratory Pattern Blood Pressure 174/102 H 174/102 H Blood Pressure Mean 126 126 Pulse Ox 98 98 98 Oxygen Delivery Method Nasal Cannula Nasal Cannula Nasal Cannula Oxygen Flow Rate (L/min) 3 3 3 09/04/25 16:23 09/04/25 16:48 Temperature Temperature Source Pulse Rate 75 Respiratory Rate 17 Respiratory Effort Short of Breath Respiratory Depth Normal Respiratory Pattern Normal Normal Blood Pressure Blood Pressure Mean Pulse Ox Oxygen Delivery Method Nasal Cannula Oxygen Flow Rate (L/min) 3 Physical Exam Const alert, oriented x3, no apparent distress and average body habitus Constitutional Narrative: Pleasant elderly male, mildly fatigued appearing, otherwise sitting back comfortably in bed, conversing normally, in no acute distress. General Appearance: cooperative and comfortable HEENT normocephalic, head/scalp atraumatic, hearing grossly normal bilaterally, nasal mucous membranes and turbinates normal and moist oral mucous membranes Eyes PERRL, EOMs intact bilaterally and conjunctivae normal Neck full ROM Chest inspection of chest normal Resp normal respiratory effort and no use of accessory muscles Resp Narrative: Breathing comfortably on 3 L nasal cannula at rest. Moderate wheezing noted bilaterally throughout, no crackles noted. Cardio regular rate, regular rhythm, no murmurs and peripheral pulses 2+ throughout GI normal to inspection, nondistended, normoactive bowel sounds, soft to palpation, non-tender and non-distended Back/Spine normal ROM Extremity normal to inspection, full ROM and no pedal edema Skin no rashes or lesions noted Psych mental status grossly normal Results Lab / Micro Data 09/04/25 16:40 09/04/25 16:40 Labs: Laboratory Results - last 24 hr 09/04/25 16:40: WBC 9.1, RBC 4.62, Hgb 16.2, Hct 47.1, MCV 101.9 H, MCH 35.1 H, MCHC 34.4, RDW Std Deviation 58.7 H, RDW Coeff of Lisa 15.6 H, Plt Count 199, MPV 9.5, Immature Gran % (Auto) 0.700, Neut % (Auto) 93.7 H, Lymph % (Auto) 2.6 L, Atkinson % (Auto) 2.8, Eos % (Auto) 0.0, Baso % (Auto) 0.2, Absolute Neuts (auto) 8.6 H, Absolute Lymphs (auto) 0.24 L, Nucleated RBC % 0, Sodium 140, Potassium 4.5, Chloride 100, Carbon Dioxide 30.3, Anion Gap 9, BUN 21 H, Creatinine 0.89, Est GFR (MDRD) Non-Af 92, BUN/Creatinine Ratio 24.1 H, Glucose 139 H, Calcium 9.2 Assessment & Plan Assessment/Plan (1) COPD exacerbation: (2) Hypoxia: PLAN: Plan Patient is a 70-year-old male who presented to [facility] ED on 09/04/2025 with worsening shortness of breath on exertion. 1. COPD exacerbation with hypoxia, history of nocturnal hypoxia – Admit under inpatient status to PCU. On home 2 L nasal cannula at night only. Requiring 3 L nasal cannula at rest in the ED to maintain appropriate oxygen saturations. Follows with Dr. Orellana. Recently completed courses of antibiotics and steroids without much improvement; has been using home Symbicort and nebulizer treatments as well with minimal improvement. Moderately wheezy on exam in the ED. Chest x-ray unremarkable and procalcitonin normal. Respiratory PCR panel ordered. Will treat with IV steroids and scheduled DuoNebs for now. Continue home long-acting inhalers. Wean supplemental oxygen as able. 2. Tobacco dependence – Has been weaning himself down, currently smoking about 5 cigarettes daily. Nicotine replacement therapy available as needed. Discussed cessation on discharge. 3. History of CAD with CABG and extensive stenting, hypertension, hyperlipidemia – Follows with [facility], last office visit in April. Hypertensive to the 160s to 170s systolic in the ED. Will continue home Plavix, statin, Lopressor, losartan, and nitrate. 4. History of medication nonadherence – Last hospitalized here in September 2024. At that time he reported nonadherence to several home medications as he did not feel like he needed them. He reports adherence to medications at this time. DVT prophylaxis: Lovenox CODE STATUS: Full code, verified Expected disposition: Home, TBD Total clinical time spent by myself addressing the patient's medical issues, reviewing all the data, and collaborating with patient's care team: 75 minutes. Charges/Coding Visit Charges Inpatient E&M: 94475 Init Hosp L3
[2025-09-04 18:31] LABS: Pro- Brain NATRIURETIC PEPTIDE 857 pg/mL (<=900)
--- OUTSIDE RECORDS SUMMARY | 2025-09-04 18:49 | XMS RPT_ITS | CCD ---
Author Organization [facility] Care Team Providers Care Six Sigma Black Belt Engineer Name Role Phone PARAG, DARI Hunt Attending [...] Provider Dr. George Vázquez Referring Provider Christophe SOLAR WATER HEATER INSTALLER, SOLAR WATER HEATER INSTALLER-C Daniel Montes Attending Provider Dr. George Vázquez Primary Care Provider Dr. George Vázquez Referring Provider Dr. Mark Giles Attending Provider Armando ELENA, SOLAR WATER HEATER INSTALLER-C Radha Attending Provider Dr. George Vázquez Primary Care Provider Dr. George Vázquez Referring Provider Christophe SOLAR WATER HEATER INSTALLER, SOLAR WATER HEATER INSTALLER-C Daniel Montes Attending Provider Dr. Farooq Hall [...] Dr. Farooq Hall Referring Provider Daphne ELENA, SOLAR WATER HEATER INSTALLER-C Cristiane Champagne Attending Provider MD Pablo Whitney Emergency Provider Dr. Judy Henriquez Admit Provider Dr. Judy Henriquez Other Provider Dr. Ling Betancur Attending Provider Dr. Ling Betancur Other Provider Dr. George Vázquez Primary Care Provider Dr. George Vázquez Referring Provider Dr. Becky Corbin Attending Provider Dr. Tomy Hanks Attending Provider Dr. Becky Corbin Referring Provider Armando SOLAR WATER HEATER INSTALLER, SOLAR WATER HEATER INSTALLER-C Radha Attending Provider Dr. Becky Corbin Other Provider Dr. Salvador Palafox Referring Provider Dr. George Vázquez Primary Care Provider Dr. George Vázquez Referring Provider Daphne ELENA, SOLAR WATER HEATER INSTALLER-C Cristiane Champagne Attending Provider MD Pablo Whitney Emergency Provider Dr. Judy Henriquez Admit Provider Dr. Judy Henriquez Other Provider Dr. Ling Betancur Attending Provider Dr. Ling Betancur Other Provider Dr. Becky Corbin Attending Provider Dr. Tomy Hanks Attending Provider Dr. Becky Corbin Referring Provider Armando SOLAR WATER HEATER INSTALLER, SOLAR WATER HEATER INSTALLER-C Radha Attending Provider Dr. Becky Corbin Other Provider Dr. Salvador Palafox Referring Provider Dr. Mark Giles Attending Provider Dr. Aleksey Javier Attending Provider [phone] Dr. Aleksey Javier Other Provider Dr. George Vázquez Primary Care Provider Dr. George Vázquez Referring Provider Dr. Becky Corbin Attending Provider Daphne SOLAR WATER HEATER INSTALLER, SOLAR WATER HEATER INSTALLER-C Cristiane Champagne Attending Provider [phone] Armando SOLAR WATER HEATER INSTALLER, SOLAR WATER HEATER INSTALLER-C Radha Attending Provider Dr. George Vázquez Primary Care Provider Dr. George Vázquez Referring Provider RENEE Joseph Attending Provider Dr. Aleksey Javier Attending Provider Armando SOLAR WATER HEATER INSTALLER, SOLAR WATER HEATER INSTALLER-C Radha Referring Provider [phone] Armando SOLAR WATER HEATER INSTALLER, SOLAR WATER HEATER INSTALLER-C Radha Other Provider Dr. Tevin Nelson Attending Provider RENEE Joseph Referring Provider RENEE Joseph Other Provider Dr. Kal Bartholomew Attending Provider Dr. George Vázquez Primary Care Provider Dr. George Vázquez Referring Provider Armando ELENA, ULICES-C Radha Attending Provider Josh REILLY, Darlyn Champagne Unavailable [facility] Ulrich MD, [facility] Unavailable Dr. George Vázquez Primary Care Provider [...] George Vázquez MD Primary Care Provider Alban PRESSER [employer].EQUIPMENT PLANNER, Blanca M Unavailable Rosamaria LOPEZ, Dr. Vazquez Primary Care Provider Chidi LOPEZ, Dr. Singh Attending Provider [phone] Chidi LOPEZ, Dr. Singh Emergency Provider Dr. Praveen Ruiz DO Emergency Provider Darryl GAY, Dr. Zhang Attending Provider Darryl GAY, Dr. Zhang Admit Provider Latonya LOPEZ, Dr. Huitron Attending Provider Dr. Vicente Andrews DO Other Provider Armando SOLAR WATER HEATER INSTALLER-C, Radha Attending Provider Armando SOLAR WATER HEATER INSTALLER-C, Radha Referring Provider Dr. George Vázquez MD Referring Provider Dr. Carrillo Malave MD Attending Provider Dr. Carrillo Malave MD Other Provider Armando SOLAR WATER HEATER INSTALLER-C, Radha Other Provider [phone] Tevin [...] LOPEZ, Dr. Neptali Anderson Referring Provider Christophe SOLAR WATER HEATER INSTALLER-C, Daniel Montes Attending Provider [phone] Rosamaria LOPEZ, Dr. Vazquez Primary Care Provider Bhupendra Bae Attending Provider Bhupendra Bae Referring Provider Rosamaria LOPEZ, Dr. Vazquez Referring Provider Armando SOLAR WATER HEATER INSTALLER-C, Radha Attending Provider Armando SOLAR WATER HEATER INSTALLER-C, Radha Referring Provider Rosamaria LOPEZ, Dr. Vazquez Primary Care Physician Bhupendra Bae Attending Physician Christophe SOLAR WATER HEATER INSTALLER-C, Daniel Montes Attending Physician [phone] Armando SOLAR WATER HEATER INSTALLER-C, Radha Attending Physician Dr. Michael Narayan DO Attending Physician [phone] Dr. Michael Narayan DO Referring Provider Carrillo Malave Consulting Unavailable Tevin Nelson Attending Unavailable George Vázquez Primary Care Unavailable Roberts SOLAR WATER HEATER INSTALLER, Radha Referring Unavailable Roberts SOLAR WATER HEATER INSTALLER, Radha Consulting Unavailable Carrillo Malave Attending Unavailable [...] Care Unavailable Carrillo Malave Consulting Unavailable Armando SOLAR WATER HEATER INSTALLER, Radha Referring Unavailable Roberts SOLAR WATER HEATER INSTALLER, Radha Attending Unavailable Vázquez, George Primary Care Unavailable Michael Narayan Referring Unavailable Michael Narayan Attending Unavailable Vázquez, George Primary Care Unavailable Vázquez, George Primary Care Unavailable Sibrosa, Neptali Anderson Attending Unavailable Vicente Andrews Attending Unavailable Vicente Andrews Admitting Unavailable Vázquez, George Primary Care Unavailable Roberts SOLAR WATER HEATER INSTALLER, Radha Referring Unavailable Roberts SOLAR WATER HEATER INSTALLER, Radha Attending Unavailable Vázquez, George Primary Care Unavailable Sibilia, Neptali Justin Attending Unavailable Vázquez, George Primary Care Unavailable Sibilia, Neptali V Referring Unavailable Roberts SOLAR WATER HEATER INSTALLER, Radha Referring Unavailable Roberts SOLAR WATER HEATER INSTALLER, Radha Attending Unavailable Vázquez, George Primary Care [...] [LEVOFLOXACIN] Drug Allergy 0 Other: See Comments [facility] Work Phone: Comment on above: Achilles (1 source) levoFLOXacin Drug Allergy 5 [facility] Repository Medications Current Medications Medication Drug Class(es) Dates Sig (Normalized) Sig (Original) acetaminophen 325 mg / HYDROcodone bitartrate 5 mg oral tablet (4 sources) Opioid Agonist Start: 07-13-2022 take 1 tablet by mouth every six hours Hydrocodone-Acetam inophen Active 1 TABLET PO EVERY 6 HOURS 12 3 July 13, 2022 [id number] 200 actuat albuterol 0.09 mg/actuat metered dose [...] use Start: 03-07-2022 take 1 puff(s) by [facility] twice daily Budesonide-Formoterol (Symbicort) 160-4.5 mcg/actuation HFA aerosol inhaler Active 2 PUFF INHALATION TWICE A DAY March 06, 2022 11:00pm administer with spacer, rinse mouth after each use Start: 03-07-2022 take 1 puff(s) by [facility] twice daily Budesonide-Formoterol (Symbicort) 160-4.5 mcg/actuation [...] PATCH daily for 14 days transdermal nystatin 469662 unt/ml oral suspension (20 sources) Polyene Antifungal [...] 1 capsule by mo [facility] twice daily. predniSONE 20 mg oral tablet [...] 2024 1:00am October 27, 2024 3:47pm amylase 950331 unt / lipase 22362 unt / protease 178035 unt delayed release oral capsule (13 sources) Start: 04-20-20 End: 03-18-20 24 take 68514-171618 capsules by mouth three times daily at mealtime Aowbpx-Joznjluk-Qecd ase (Creon) 36,000-114,000- 180,000 unit capsule,delayed release(DR/EC) [...] tablet by bianka once daily. Fluad Quad 5626-7733(65yr up)(PF) 60 mcg (15 mcg x 4)/0.5mL [...] 22, 2018 11:00pm April 23, 2018 6:47am Zhzzzlsniod-Mkyjqmjzl-Xhpugk er (4 sources) Start: 05-05-2025 End: 07-21-2025 Yghqikmynht-Zrenyxxww-Fikiks er (Trelegy Ellipta) 200-62.5-25 mcg blister with [...] 1 capsule by mo [facility] once daily. oxaprozin 600 mg oral tablet [...] 2.5 ug by inhalation once daily Tiotropium [place] (Spiriva Respimat) 2.5 mcg/actuation mist Discontinued 2 NMA INHALATION daily November 05, 2024 1:00am May 05, 2025 1:04pm Start: 07-30-2024 End: 10-27-2024 take 2.5 ug by inhalation once daily Tiotropium [place] (Spiriva Respimat) 2.5 mcg/actuation mist Discontinued 2 NMA INHALATION daily 11 09July 30, 2024 12:00am October 27, 2024 3:49pm administer at approximately the same time(s) each day Start: 04-11-2023 End: 11-23-2023 take 2.5 ug by inhalation once daily Tiotropium Cone[place] (Spiriva Respimat) 2.5 mcg/actuation mist Discontinued 2 NMA INHALATION daily 11 04April 11, 2023 12:00am November 23, 2023 7:38am administer at approximately the same time(s) each day Start: 05-25-2022 End: 08-04-2022 take 2.5 ug by inhalation once daily in the morning Tiotropium C[place]jos (Spiriva Respimat) 2.5 mcg/actuation mist Discontinued 2 NMA INHALATION EVERY MORNING 4 May 25, 2022 12:00am August 04, 2022 12:53pm Start: 05-25-2022 End: 08-04-2022 take 2.5 ug by inhalation once daily in the morning Tiotropium Conejos (Spiriva Respimat) 2.5 mcg/actuation mist Discontinued 2 NMA INHALATION EVERY MORNING May 25, 2022 12:00am August 04, 2022 12:53pm Start: 05-25-2022 End: 08-04-2022 take 1 puff(s) by inhalation once daily in the morning Tiotropium C[place] (Spiriva Respimat) 2.5 mcg/actuation mist Discontinued 2 PUFF INHALATION EVERY MORNING May 25, 2022 12:00am August 04, 2022 12:53pm Start: 05-25-2022 End: 08-04-2022 take 1 puff(s) by inhalation once daily in the morning Tiotropium [place] (Spiriva Respimat) 2.5 mcg/actuation mist Discontinued 2 PUFF INHALATION EVERY MORNING May 24, 2022 11:00pm August 04, 2022 11:53am Start: 05-25-2022 take 1 puff(s) by in halation once daily in the morning Tiotropium [place] (Spiriva Respimat) 2.5 mcg/actuation mist Active 2 PUFF INHALATION EVERY MORNING May 25, 2022 12:00am Start: 09-28-2020 End: 08-05-2021 take 2.5 ug by inhalation once daily Tiotropium [place] (Spiriva Respimat) 2.5 mcg/actuation mist Discontinued 2 NMA INHALATION daily 3 3 October 27, 2020 12:19pm August 05, 2021 1:06pm administer at approximately the same time(s) each day Start: 09-28-2020 End: 08-05-2021 take 1 puff(s) by inhalation once daily Tiotropium Cone[place] (Spiriva Respimat) 2.5 mcg/actuation mist Discontinued 2 [...] ISR on 11/12/[address] Ulrich of [facility];PTCA to distal RCA, PCI/stent to proximal rPDA, PTCA of distal LCx and OM2 ISR on 11/12/[address] Ulrich of [facility]; Coronary atherosclerosis and other heart disease (20 sources) Coronary arteriosclerosis; Translations: [Atherosclerotic heart disease of [place] coronary artery without angina pectoris] Onset: 2 10-07-2013 Chronic Comment on above: PCI-JOEY-CX w/ 2.75 x 18 Promus 06/19/2008PCI-Stent to RCA w/ BX Velocity in 2000, [id number] w/ 2.75 x 20 mm Taxus and distally w/ 3.0 x 15 mm Photography Colorist Stent 01/05/2006CABG x 2 STEPHENS-LAD, SVG-D1 10/14/96 SVG-D1 is occludedPTCA to distal RCA, PCI/stent to proximal rPDA, PTCA of distal LCx and OM2 ISR on 11/12/[address] Ulrich of [facility]; Atherosclerosis of n ative coronary artery and [...] patient 6 to 64 years of age ([facility])] Onset: 5 Episodic Respiratory failure; insufficiency; arrest (adult) (20 sources) Mxryw-ug-jnffhoe respiratory failure; Translations: [Acute and chronic respiratory [...] to RCA w/ BX Velocity in 2000, [id number] w/ 2.75 x 20 mm Taxus and distally w/ 3.0 x 15 mm Photography Colorist Stent 01/05/2006PTCA to distal RCA, PCI/stent to proximal rPDA, PTCA of distal LCx and OM2 ISR on 11/12/[address] Ulrich of [facility]; Diverticulosis and diverticulitis (20 sources) Diverticulitis; Translations: [...] Office Visit (ORTHWS ) -------- HORACE HENDERSON ([id number]) 1955 M Date Time Provider Department 08/18/25 [...] [facility]opa[facility]ics [facility] [address] [place] [address] Dept: [phone] Dept August 18, 2025 CHIEF COMPLAINT: New [...] Patient to consider options and notify via [employer] if wishing to proceed with XIAFLEX or [...] Patient to consider options and notify via [employer] if wishing to proceed with XIAFLEX or [...] 10/14/1996 SVG to diagonal. STEPHENS to [facility]. CC CORONARY STENT 09/29/2021 Biotronik 2.5x22 mm to distal RCA, biotronik 3.0 x 30 mm to proximal RCA COLECTOMY PARTIAL W/ANASTOMOSIS 08/12/2012 COLONOSCOPY FLX DX W/COLLJ SPEC WHEN PFRMD 07/12/2012 Colonoscopy COLONOSCOPY FLX DX W/COLLJ SPEC WHEN PFRMD 06/22/2021 C (more content not included)... Normal [facility] CBC W Auto Differential pane l (Bld)on 08-15-2025 Basophils (Bld) [#/Vol] 0.06 10*3/uL Normal <0.11 [facility] Comment on above: Order Comment: Speci men Type: BLOOD SPECIMEN Ordering Facility: Neptali Orellana MD Address: [address] [place] [address] Performed By: #### 5 7021-8 #### [facility] CLIA [id number] [address] [place] [address] [place] Basophils/100 WBC (Bld) 0.7 % Normal [facility] Comment on above: Order Comment: Speci men Type: BLOOD SPECIMEN Ordering Facility: Neptali Orellana MD Address: [address] [place] [address] Performed By: #### 5 7021-8 #### [id number] [address] [place] [address] [place] Differential cell count method Nom (Bld) Auto Normal [facility] Comment on above: Order Comment: Speci men Type: BLOOD SPECIMEN Ordering Facility: Neptali Orellana MD Address: [address] [place] [address] Performed By: #### 5 7021-8 #### [facility] [id number] [address] [place] [address] [place] Eosinophils (Bld) [#/Vol] 0.12 10*3/uL Normal <0.46 [facility] Comment on above: Order Comment: Speci men Type: BLOOD SPECIMEN Ordering Facility: Neptali Orellana MD Address: [address] [place] [address] Performed By: #### 5 7021-8 #### [facility] CLIA [id number] [address] [place] [address] [place] Eosinophils/100 WBC (Bld) 1.3 % Normal [facility] Comment on above: Order Comment: Speci men Type: BLOOD SPECIMEN Ordering Facility: Neptali Orellana MD Address: [address] [place] [address] Performed By: #### 5 7021-8 #### [facility] CLIA [id number] [address] [place] [address] [place] Erythrocyte distribution width (RBC) [Ratio] 14.3 % Normal 11.5-15.0 [facility] Comment on above: Order Comment: Speci men Type: BLOOD SPECIMEN Ordering Facility: Neptali Orellana MD Address: [address] [place] [address] Performed By: #### 5 7021-8 #### [facility] CLIA [id number] [address] [place] [address] [place] Hematocrit (Bld) [Volume fraction] 45.1 % Normal 39.0-51.0 [facility] Comment on above: Order Comment: Speci men Type: BLOOD SPECIMEN Ordering Facility: Neptali Orellana MD Address: [address] [place] [address] Performed By: #### 5 7021-8 #### [facility] [id number] [address] [place] [address] [place] Hemoglobin (Bld) [Mass/Vol] 15.8 g/dL Normal 13.0-17.0 [facility] Comment on above: Order Comment: Speci men Type: BLOOD SPECIMEN Ordering Facility: Neptali Orellana MD Address: [address] [place] [address] Performed By: #### 5 7021-8 #### [facility] [id number] [address] [place] [address] [place] Immature granulocytes (Bld) [#/Vol] 0.03 10*3/uL Normal <0.10 [facility] Comment on above: Order Comment: Speci men Type: BLOOD SPECIMEN Ordering Facility: Neptali Orellana MD Address: [address] [place] [address] Performed By: #### 5 7021-8 #### [facility] [id number] [address] [place] [address] [place] Immature granulocytes/100 WBC (Bld) 0.3 % Normal [facility] Comment on above: Order Comment: Speci men Type: BLOOD SPECIMEN Ordering Facility: Neptali Orellana MD Address: [address] [place] [address] Performed By: #### 5 7021-8 #### [facility] CLIA [id number] [address] [place] [address] [place] Lymphocytes (Bld) [#/Vol] 1.37 10*3/uL Normal 1.00-4.00 [facility] Comment on above: Order Comment: Speci men Type: BLOOD SPECIMEN Ordering Facility: Neptali Orellana MD Address: [address] [place] [address] Performed By: #### 5 7021-8 #### [facility] CLIA [id number] [address] [place] [address] [place] Lymphocytes/100 WBC (Bld) 15.0 % Normal [facility] Comment on above: Order Comment: Speci men Type: BLOOD SPECIMEN Ordering Facility: Neptali Orellana MD Address: [address] [place] [address] Performed By: #### 5 7021-8 #### [facility] CLIA [id number] [address] [place] [address] [place] MCH (RBC) [Entitic mass] 34.0 pg Normal 26.0-34.0 [facility] Comment on above: Order Comment: Speci men Type: BLOOD SPECIMEN Ordering Facility: Neptali Orellana MD Address: [address] [place] [address] Performed By: #### 5 7021-8 #### [facility] CLIA [id number] [address] [place] [address] [place] MCHC (RBC) [Mass/Vol] 35.0 g/dL Normal 30.5-36.0 [facility] Comment on above: Order Comment: Speci men Type: BLOOD SPECIMEN Ordering Facility: Neptali Orellana MD Address: [address] [place] [address] Performed By: #### 5 7021-8 #### [facility] CLIA [id number] [address] [place] [address] [place] MCV (RBC) [Entitic vol] 97.0 fL Normal 80.0-100.0 [facility] Comment on above: Order Comment: Speci men Type: BLOOD SPECIMEN Ordering Facility: Neptali Orellana MD Address: [address] [place] [address] Performed By: #### 5 7021-8 #### [facility] CLIA [id number] [address] [place] [address] [place] Monocytes (Bld) [#/Vol] 0.93 10*3/uL High <0.87 [facility] Comment on above: Order Comment: Speci men Type: BLOOD SPECIMEN Ordering Facility: Neptali Orellana MD Address: [address] [place] [address] Performed By: #### 5 7021-8 #### [facility] [id number] [address] [place] [address] [place] Monocytes/100 WBC (Bld) 10.2 % Normal [facility] Comment on above: Order Comment: Speci men Type: BLOOD SPECIMEN Ordering Facility: Neptali Orellana MD Address: [address] [place] [address] Performed By: #### 5 7021-8 #### [facility] CLIA [id number] [address] [place] [address] [place] Neutrophils (Bld) [#/Vol] 6.60 10*3/uL Normal 1.45-7.50 [facility] Comment on above: Order Comment: Speci men Type: BLOOD SPECIMEN Ordering Facility: Neptali Orellana MD Address: [address] [place] [address], [place] [address] Performed By: #### 5 7021-8 #### [facility] CLIA [id number] [address] [place] [address] [place] Neutrophils/100 WBC (Bld) 72.5 % Normal [facility] Comment on above: Order Comment: Speci men Type: BLOOD SPECIMEN Ordering Facility: Neptali Orellana MD Address: [facility] [place] [address] Performed By: #### 5 7021-8 #### [facility] CLIA [id number] [address] [place] [address] [place] Nucleated RBC (Bld) [#/Vol] 10*3/uL Normal <0.01 [facility] Comment on above: Order Comment: Speci men Type: BLOOD SPECIMEN Ordering Facility: Neptali Orellana MD Address: [facility] [place] [address] Performed By: #### 5 7021-8 #### [facility] [id number] [address] [place] [address] [place] Nucleated RBC/100 WBC (Bld) [Ratio] 0.0 /100 WBC Normal [facility] Comment on above: Order Comment: Speci men Type: BLOOD SPECIMEN Ordering Facility: Neptali Orellana MD Address: [facility] [place] [address] Performed By: #### 5 7021-8 #### [facility] CLIA [id number] [address] [place] [address] [place] Platelet mean volume (Bld) [Entitic vol] 8.9 fL Low 9.0-12.7 [facility] Comment on above: Order Comment: Speci men Type: BLOOD SPECIMEN Ordering Facility: Neptali Orellana MD Address: [address] [place] [address] Performed By: #### 5 7021-8 #### [facility] CLIA [id number] [address] [place] [address] [place] Platelets (Bld) [#/Vol] 224 10*3/uL Normal 150-400 [facility] Comment on above: Order Comment: Speci men Type: BLOOD SPECIMEN Ordering Facility: Neptali Orellana MD Address: [address] [place] [address] Performed By: #### 5 7021-8 #### [facility] CLIA [id number] [address] [place] [address] [place] RBC (Bld) [#/Vol] 4.65 10*6/uL Normal 4.20-6.00 [facility] Comment on above: Order Comment: Speci men Type: BLOOD SPECIMEN Ordering Facility: Neptali Orellana MD Address: [address] [place] [address] Performed By: #### 5 7021-8 #### [facility] CLIA [id number] [address] [place] [address] [place] WBC (Bld) [#/Vol] 9.11 10*3/uL Normal 3.70-11.00 [facility] Comment on above: Order Comment: Speci men Type: BLOOD SPECIMEN Ordering Facility: Neptali Orellana MD Address: [address] [place] [address] Performed By: #### 5 7021-8 #### [facility] CLIA [id number] [address] [place] [address] [place] Inital Evaluation (1) - PTon 07-23-2025 Inital Evaluation (1) - PT [facility] Physical Therapy [facility] [address] [place] [address] [address] [place] [address] / REHABILITATION SERVICES INITIAL EVALUATION MR#: [id number] Acct: [id number] Name: BALJITHORACE MARCOS Rep #: [id number] : 1955 70 From: Salvador Carter DPT, OCS, CSCS Referring Dr.: Dr. Michael Narayan DO Status: R EG RCR Insurance: MEDICARE PART A B [facility] Patient's Visit Information Visit Information Visit [...] no pain. 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 Balance/Special Test Scores Functional Gait Assessment [...] be FAXED (more content not included)... Normal [facility] Orthopedic Visit Reporton Orthopedic Visit Report [facility] [address] [place] [address] OFFICE VISIT Date of Service: 07/21/25 MR#: [id number] Acct: [id number] Name: HORACE HENDERSON Rep #: [id number] : 1955 Provider: Dr. Michael handley DO Age/Sex: 70/M Location: [facility] Status: Signed Intake Vital Signs 05/05/25 12:58 [...] disease), lumbar Atherosclerosis of coronary artery of [place] heart without angina pectoris Atherosclerosis of coronary [...] day. jyoti (more content not included)... [facility] Telephone (RIWS) -------- HORACE HENDERSON ([id number]) 1955 M Date Time Provider Department 07/16/25 [facility] During your visit today, we recorded the following information about you: Rachele Coleman 07/16/2025 10:50 AM Signed Patient is requesting MRI from 07/15/2025 copied to a disk for picker/puller Barbara Demarco PSS 07/16/2025 11:12 AM Signed Being pushed through to [facility] ok with pt Allergies As of Date: [...] Status:Closed by RACHELE COLEMAN on 08/10/25 Normal [facility] MR Hip - right WO contraston [...] A STRESS REACTION. NO DISCRETE FRACTURE LINE. Dog Show Judge: TIMOTEO Transcribe Date/Time: Jul 15 2025 10:46A Dictated by : LUIS ARMANDO JONES DO This examination was interpreted and the report reviewed and electronically signed by: LUIS ARMANDO JONES DO on Jul 15 2025 11:40AM [facility] DIVISION OF RADIOLOGY * * [...] DATE OF EXAM: Jul 15 2025 7:33AM [facility] 0207 - MRI HIP WO [...] A STRESS REACTION. NO DISCRETE FRACTURE LINE. Dog Show Judge: TIMOTEO Transcribe Date/Time: Jul 15 2025 10:46A Dictated by : LUIS ARMANDO JONES DO This examination was interpreted and the report reviewed and electronically signed by: LUIS ARMANDO JONES DO on Jul 15 2025 11:40AM EST [facility] Radiology Study observation (narrative) [facility] MR Hip - right WO contrastOr dered By: Ccf Provider on 07-15-2025 [facility] MRI HIP WO IVCON RTon 2024 MRI [...] A STRESS REACTION. NO DISCRETE FRACTURE LINE. Dog Show Judge: PSCB Transcribe Date/Time: Jul 15 2025 10:46A Dictated by : LUIS ARMANDO JONES DO This examination was interpreted and the report reviewed and electronically signed by: LUIS ARMANDO JONES DO on Jul 15 2025 11:40AM EST [id number] [facility] CNOVon 07-08-2025 CNOV Office Visit (FRFHWS ) -------- HORACE HENDERSON ([id number]) 1955 M Date Time Provider Department 07/08/25 10:00 AM LOW BRYANT V [facility] During your visit today, we recorded the [...] these instructions. Informed Consent Consent Obtained: Verbal Kanona Protocol SIGN IN TIME OUT Recording using gdgt software for draft documentation of the visit was discussed with the patient/authorized medical center representative; all questions welcomed and answered. Patient/authorized medical center representative agreed to proceed Low Bryant V, DO 07/11/2025 12:56 PM Signed Addended by: LOW BRYANT V on: 07/11/2025 12:56 PM Modules accepted: Orders Referring Provider: BLANCA TILLEY [[id number]] Allergies As of Date: 07/08/2025 Noted Allergy [...] osteoarthritis, right hip [M16.11] Order(s):CONSULT TO ORTHOPAEDICS [9022] Order #: [id number]: 1 Large Joint Arthro/Inj: R great (more content not included)... [facility] Large Joint Arthro/Inj: R gr eater [...] these instructions. Informed Consent Consent Obtained: Verbal Kanona Protocol SIGN IN TIME OUT [facility] CNOVon 07-07-2025 CNOV Office Visit (INTMWS ) -------- BALJITHORACE ([id number]) 1955 Date Time Provider Department 07/07/25 11:00 AM BLANCA TILLEY INTMWS During your visit today, we recorded the following information about you: Pulse Blood pressure Weight 86/minute 138/72 81.9 kg Blanca Tilley, [employer].EQUIPMENT PLANNER 07/07/2025 1:21 PM Signed CC: Patient presents with: Follow Up: UC right hip pain. Hurts to even lift leg from gas pedal to brake. No improvement. HPI Recording using gdgt software for draft documentation of the visit was discussed with the patient/authorized medical center representative; all questions welcomed and answered. Patient/authorized medical center representative agreed to proceed The patient is [...] disease) with chronic bronchitis (HCC) 10/07/2013 06/17/2014 [id number]% predicted. COVID-19 07/05/2022 DDD (degenerative disc disease), [...] by m (more content not included)... [facility] CNOVon 07-03-2025 CNOV Office Visit (PARUL) -------- BALJIT,HORACE Champagne ([id number]) 1955 M Date Time Provider Department 07/03/25 [...] of care. This note was generated using [employer] software. It may contain errors in wording, punctuation, or spelling. Prateek Matos APRN.EQUIPMENT PLANNER History and Record Review Clinical information obtained from an independent historian. History obtained from or confirmed by: parent. External record(s) reviewed: prior outpatient record. Disposition The patient was discharged. OTC Medications were advised: Procedures Allergies As of Date: 07/03/2025 Noted Allergy Reaction LEVOFLOXACIN 06/01/2020 14 - Other: See Comments Comments: Tachycardia. Achilles tendonitis. Date Reviewed: 07/03/2025 Reviewed by: Prateek Matos APRN.EQUIPMENT PLANNER - Fully Assessed Reason for Visit: Pain [78] Cmt: R hip pain x 3 days, pain is increasing, pain with lifting leg, trouble with daily duties due to pain Primary Visit Diagnosis:Pain of right hip [M25.551] Order(s):XR HIP GENERAL 3V PELV/AP/LAT RIGHT [7323864] Order #: [id number] FUTURE diclofenac (VOLTAREN ARTHRITIS PAIN) 1 % [...] - rosu (more content not included)... [facility] XR HIP 3V PELV+ AP/LAT RTon [...] Vascular calcifications. IMPRESSION: Moderate RIGHT hip osteoarthritis. Dog Show Judge: TIMOTEO Transcribe Date/Time: Jul 03 2025 12:42P Dictated by : TODD ZARATE DO This examination was interpreted and the report reviewed and electronically signed by: TODD ZARATE DO on Jul 03 2025 12:46PM EST [id number] [facility] XR Pelvis and Hip - right AP and Lateral frogon 07-03-2025 IMPRESSION: Moderate RIGHT hip osteoarthritis. Dog Show Judge: [facility] Transcribe Date/Time: Jul 03 2025 12:42P [...] DIVISION OF RADIOLOGY Provider, Bria Desire guru [place] - 07/03/2025 * * *Final Report* * [...] calcifications. IMPRESSION IMPRESSION: Moderate RIGHT hip osteoarthritis. Dog Show Judge: PSCLatonya Transcribe Date/Time: Jul 03 2025 12:42P Dictated by : TODD ZARATE DO This examination was interpreted and the report reviewed and electronically signed by: TODD ZARATE DO on Jul 03 2025 12:46PM [facility] Radiology Study observation (narrative) [facility] XR Pelvis and Hip - right AP and Lateral frogOrdered By: Ccf Provider on 07-03-2025 [facility] Low Dose CT Lung Screeningon 06-14-[address] Lung Screening [facility] Imaging Services [address] [place] [id number] Lung Screening MR#: [id number] Acct: [id number] Name: HORACE HENDERSON Rep #: [id number] : 1955 M 69 From: Byron elliott MD PCP: Dr. George Vázquez MD Status: [facility] CL Study: Low Dose CT Lung Screening Date of Exam: 06/14 Exam# [id number] Ordering Dr: Radha Roberts NP SOLAR WATER HEATER INSTALLER-C PROCEDURE: LOW DOSE CT LUNG SCREENING 06/14/2025 REASON FOR EXAM: SMOKER COPD. TECHNIQUE: LOW DOSE CT LUNG SCREENING Coronal and Sagittal reconstruction series were provided. One or more dose reduction techniques were used (e.g., Automated exposure control, adjustment of the mA and/or kV according to patient size, use of iterative reconstruction technique). REFERENCE LINK: [facility] Lung-RADS RADIATION DOSE SUMMARY: CTDlvol: 2.39 mGy [...] SCREENING LDCT. Other Significant Findings: Reading Location: [id number] CC: SOLAR WATER HEATER INSTALLER-Vangie Roberts; Dr. George Vázquez MD Dog Show Judge: Signed Normal [facility] CNOVon 05-28-2025 CNOV Office Visit (INTMWS ) -------- HORACE HENDERSON ([id number]) 1955 Date Time Provider Department 05/28/25 1:40 [...] PCP - General (Internal Medicine) Blanca Tilley, DEWAYNE.EQUIPMENT PLANNER as Car Cooper (Internal Medicine) Outside specialists seen: Dayton Zarate [...] and lower legs for several months. 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 [facility] Cardiology Visit Reporton Cardiology Visit Report [facility] [address] [place] [address] OFFICE VISIT Date of Service: 05/05/25 MR#: [id number] Acct: [id number] Name: HORACE HENDERSON Rep #: [id number] [...] the last one occurring in [address] [facility]. Patient also has a history of COPD [...] NIBP Intake Visit Reasons: 6 M FU Immersion Metalcleaner Required: No Is patient in pain?: No Allergies levofloxacin (From Tipzu) Adverse Reaction (Severe, Verified 05/05/25 13:02) tendonitis [...] you fallen in the past year?: [facility] Essential hypertension Alcohol use [...] (more content not included)... Normal [facility] Bilirubin directOrdered By: Bhupendra Asif on 05-03-2025 Bilirubin.direct [Mass/Vol] 0.13 mg/dL Normal 0.00-0.30 [facility] Comment on above: Hemolysis present, R esults could be affected. Result Comment: Hemo lysis present, Results??could be affected. ?? Performed By: #### L 500.3400, L500.4100 #### [facility] [address] [place], [place], [id number] Bilirubin, totalOrdered By: Bhupendra Asif on 05-03-2025 Bilirubin [Mass/Vol] 0.54 mg/dL Normal 0.00-1.30 [facility] Comment on above: Performed By: #### L 500.3400, L500.4100 #### [facility] [address] [place], [place], [id number] Calculated very low density lipoprotein (VLDL) cholesterol measurementOrdered By: Bhupendra Asif on 05-03-2025 Calculated very low density lipoprotein (VLDL) cholesterol measurement 25 mg/dL 5-40 [facility] LDL calc ser/plasOrdered By: Bhupendra Asif on 05-03-2025 Cholesterol in LDL [Mass/Vol] 116 mg/dL Normal [facility] Comment on above: Fzdusopfnc=621-060 m g/dL & Higher Fqdc=535 mg/dL or greater Result Comment: Bord mcvqap=417-421 mg/dL Higher Pwex=194 mg/dL or greater Performed By: #### L 500.3400, L500.4100 #### [facility] [address] [place], [address] Lipid Profileon 05-03-2025 CHOL:HDL 3.50 Normal [facility] Comment on above: Performed By: #### L 500.3400, L500.4100 #### [facility] [address] [place], [address] Cholesterol in VLDL [Mass/Vol] 25 mg/dL Normal 5-40 [facility] Comment on above: Performed By: #### L 500.3400, L500.4100 #### [facility] [address] [place], [address] Liver Profileon 05-03-2025 ALK PHOS 85 U/L Normal 40-129 [facility] Comment on above: Performed By: #### L 500.3400, L500.4100 #### [facility] [address] [place], [address] T PROT 6.8 g/dL Normal 5.9-8.4 [facility] Comment on above: Performed By: #### L 500.3400, L500.4100 #### [facility] [address] [place], [address] Liver ProfileOrdered By: David Asif on 05-03-2025 AST [Catalytic activity/Vol] 26 U/L Normal <=37 [facility] Comment on above: Hemolysis present, R esults could be affected. Result Comment: Hemo lysis present, Results??could be affected. ?? Performed By: #### L 500.3400, L500.4100 #### [facility] [address] [place], [address] Screening total cholesterol/ high density lipoprotein (HDL) cholesterol ratioOrdered By: Bhupendra Asif on 05-03-2025 Cholesterol.total/David sterol in HDL [Mass ratio] 3.50 {ratio} [facility] Serum globulin measurementOr dered By: Bhupendra Asif on 05-03-2025 Globulin (S) [Mass/Vol] 2.8 g/dL Normal 2.2-4.2 [facility] Comment on above: Performed By: #### L 500.3400, L500.4100 #### [facility] [address] [place], [address] Serum or plasma alanine gomez otransferase (ALT) measurementOrdered By: Bhupendra Asif on 05-03-2025 ALT [Catalytic activity/Vol] 13 U/L Normal <=46 [facility] Comment on above: Performed By: #### L 500.3400, L500.4100 #### [facility] [address] [place], [address] Serum or plasma albumin jimbo urement (mass/volume)Ordered By: Bhupendra Asif on 05-03-2025 Albumin [Mass/Vol] 4.0 g/dL Normal 3.4-4.[address] [facility] Comment on above: Performed By: #### L 500.3400, L500.4100 #### [facility] [address] [place], [address] Serum or plasma alkaline atif sphatase measurementOrdered By: Bhupendra Asif on 05-03-2025 ALP [Catalytic activity/Vol] 85 U/L 40-129 [facility] Serum or plasma cholesterol in HDL measurement (mass/volume)Ordered By: Bhupendra Asif on 05-03-2025 Cholesterol in HDL [Mass/Vol] 57 mg/dL Normal [facility] Comment on above: National Cholesterol Education [...] #### L 500.3400, L500.4100 #### [facility] [address] [place], [address] Serum or plasma cholesterol measurement (mass/volume)Ordered By: Bhupendra Asif on 05-03-2025 Cholesterol [Mass/Vol] 198 mg/dL Normal <=200 [facility] Comment on above: Cholesterol level, D esirable <200 mg/dLBorderline high cholesterol 200-239 mg/dLHigh cholesterol >=240 mg/dLRecommendations of the NCEP Adult Treatment Panel for the following risk-cutoff thresholds for the [place] population. Result Comment: Chol esterol level, Desirable <200 mg/dL Borderline high cholesterol 200-239 mg/dL High cholesterol >=240 mg/dL Recommendations of the NCEP Adult Treatment Panel for the following risk-cutoff thresholds for the [place] population. Performed By: #### L 500.3400, L500.4100 #### [facility] [address] [place], [address] Total proteinOrdered By: David Asif on 05-03-2025 Protein [Mass/Vol] 6.8 g/dL 5.9-8.[address] [facility] Triglycerides measurementOrd ered By: Bhupendra Asif on 05-03-2025 Triglyceride [Mass/Vol] 125 mg/dL Normal [facility] Comment on above: The drugs N-Acetylcy steine and Metamizole may falsely depress this assay. Normal range: <150 mg/dLBorderline High: 150-199 mg/dLHigh: 200-499 mg/dLVery High: >500 mg/dL Result Comment: The drugs N-Acetylcysteine and Metamizole may falsely depress this assay. Normal range: <150 mg/dL Borderline High: 150-199 mg/dL High: 200-499 mg/dL Very High: >500 mg/dL Performed By: #### L 500.3400, L500.4100 #### [facility] [address] [place], [address] Absolute lymphocyte countOrd ered By: Neptali Weirrosa on 02-14-2025 Lymphocytes Auto (Unsp spec) [#/Vol] 1.40 10*3/uL 0.83-4.51 [facility] Absolute neutrophil countOrd ered By: Neptali Destinrosa on 02-14-2025 Neutrophils (Bld) [#/Vol] 5.8 10*3/uL 2.0-7.7 [facility] Automated lymphocyte count a s percentage of total leukocytesOrdered By: Neptali Weirrosa on 02-14-2025 Lymphocytes/100 WBC Auto (Unsp spec) 17.6 % Low 19-41 [facility] Basophil percentageOrdered B y: Neptali Orellana on 02-14-2025 Basophils/100 WBC (Bld) 0.4 % 0-1 [facility] CBC W/Diff, Automatedon 01-28 Absolute Lymph 1.40 X10 3/uL Normal 0.83-4.51 [facility] Comment on above: Performed By: #### L 100.0100 #### [facility] [address] [place], [address] Absolute Neut 5.8 X10 3/uL Normal 2.0-7.7 [facility] Comment on above: Performed By: #### L 100.0100 #### [facility] [address] [place], [address] Basophils/100 WBC (Bld) 0.4 % Normal 0-1 [facility] Comment on above: Performed By: #### L 100.0100 #### [facility] [address] [place], [address] Eosinophils/100 WBC (Bld) 0.9 % Normal 0-5 [facility] Comment on above: Performed By: #### L 100.0100 #### [facility] [address] [place], [address] Erythrocyte distribution width (RBC) [Ratio] 13.2 % Normal 11.6-14.6 [facility] Comment on above: Performed By: #### L 100.0100 #### [facility] [address] [place], [address] Hematocrit (Bld) [Volume fraction] 43.8 % Normal 40-54 [facility] Comment on above: Performed By: #### L 100.0100 #### [facility] [address] [place], [address] Hemoglobin (Bld) [Mass/Vol] 15.0 g/dL Normal 13.0-16.5 [facility] Comment on above: Performed By: #### L 100.0100 #### [facility] [address] [place], [address] IG% 0.400 Normal 0.0-0.9 [facility] Comment on above: Result Comment: IG% - Immature Granulocytes (promyelocytes, myelocytes and metamyelocytes) > 1% indicates that a LEFT SHIFT is Present. Performed By: #### L 100.0100 #### [facility] [address] [place], [address] Lymphocytes/100 WBC (Bld) 17.6 % Low 19-41 [facility] Comment on above: Performed By: #### L 100.0100 #### [facility] [address] [place], [address] MCH (RBC) [Entitic mass] 33.7 pg High 27.0-32.0 [facility] Comment on above: Performed By: #### L 100.0100 #### [facility] [address] [place], [address] MCHC (RBC) [Mass/Vol] 34.2 g/dL Normal 32-36 [facility] Comment on above: Performed By: #### L 100.0100 #### [facility] [address] [place], [address] MCV (RBC) [Entitic vol] 98.4 fL High 80-94 [facility] Comment on above: Performed By: #### L 100.0100 #### [facility] [address] [place], [address] Monocytes/100 WBC (Bld) 7.4 % Normal 0-10 [facility] Comment on above: Performed By: #### L 100.0100 #### [facility] [address] [place], [address] Neutrophils/100 WBC (Bld) 73.3 % High 47-70 [facility] Comment on above: Performed By: #### L 100.0100 #### [facility] [address] [place], [address] Nucleated RBC (Bld) [#/Vol] 0 10*3/uL Normal 0-5 [facility] Comment on above: Performed By: #### L 100.0100 #### [facility] [address] [place], [address] Platelet mean volume (Bld) [Entitic vol] 9.3 fL Normal 6.2-12.0 [facility] Comment on above: Performed By: #### L 100.0100 #### [facility] [address] [place], [address] Platelets (Bld) [#/Vol] 200 10*3/uL Normal 150-450 [facility] Comment on above: Performed By: #### L 100.0100 #### [facility] [address] [place], [address] RBC (Bld) [#/Vol] 4.45 10*6/uL Low 4.6-6.2 [facility] Comment on above: Performed By: #### L 100.0100 #### [facility] [address] [place], [address] RDW SD 48.0 fl High 35.1-43.9 [facility] Comment on above: Performed By: #### L 100.0100 #### [facility] [address] [place], [address] WBC (Bld) [#/Vol] 8.0 10*3/uL Normal 4.4-11.[address] [facility] Comment on above: Performed By: #### L 100.0100 #### [facility] [address] [place], [address] Eosinophil percentageOrdered By: Neptali Orellana on 02-14-2025 Eosinophils/100 WBC (Bld) 0.9 % 0-5 [facility] Erythrocyte distribution wid th ratioOrdered By: Neptali Orellana on 02-14-2025 Erythrocyte distribution width (RBC) [Ratio] 13.2 % 11.6-14.6 [facility] Erythrocyte distribution wid th standard deviationOrdered By: Neptali Orellana on 02-14-2025 Erythrocyte distribution width (RBC) [Ratio] 48.0 fl High 35.1-43.9 [facility] Hematocrit Auto (Bld) [Volum e fraction]Ordered By: Neptali Orellana on 02-14-2025 Hematocrit (Bld) [Volume fraction] 43.8 % 40-54 [facility] Hemoglobin measurementOrdere d By: Neptali Orellana on 02-14-2025 Hemoglobin (Bld) [Mass/Vol] 15.0 g/dL 13.0-16.5 [facility] Immature granulocytes/100 WB C Auto (Bld)Ordered By: Neptali Orellana on 02-14-2025 Immature granulocytes/100 WBC (Bld) 0.400 % 0.0-0.9 [facility] Comment on above: IG% - Immature Granu locytes (promyelocytes, myelocytes and metamyelocytes) > 1% indicates that a LEFT SHIFT is Present. MCV (mean corpuscular volume ) determinationOrdered By: Neptali Orellana on 02-14-2025 MCV (RBC) [Entitic vol] 98.4 fL High 80-94 [facility] Mean corpuscular hemoglobin (MCH) determinationOrdered By: Neptali Orellana on 02-14-2025 MCH (RBC) [Entitic mass] 33.7 pg High 27.0-32.0 [facility] Mean corpuscular hemoglobin concentration (MCHC) determinationOrdered By: Neptali Orellana on 02-14-2025 MCHC (RBC) [Mass/Vol] 34.2 g/dL 32-36 [facility] Mean platelet volume determi nationOrdered By: Neptali Orellana on 02-14-2025 Platelet mean volume (Bld) [Entitic vol] 9.3 fL 6.2-12.0 [facility] Monocyte percentageOrdered B y: Neptali Orellana on 02-14-2025 Monocytes/100 WBC (Bld) 7.4 % 0-10 [facility] Neutrophil percentageOrdered By: Neptali Orellana on 02-14-2025 Neutrophils/100 WBC (Bld) 73.3 % High 47-70 [facility] Nucleated red blood cell per centageOrdered By: Neptali Orellana on 02-14-2025 Nucleated RBC/100 WBC (Bld) [Ratio] 0 % 0-5 [facility] Platelet countOrdered By: Sierra Orellana on 02-14-2025 Platelets (Bld) [#/Vol] 200 10*3/uL 150-450 [facility] RBC Auto (Bld) [#/Vol]Ordere d By: Neptali Orellana on 02-14-2025 RBC (Bld) [#/Vol] 4.45 10*6/uL Low 4.6-6.2 [facility] White blood cell (WBC) count Ordered By: Neptali Orellana on 02-14-2025 WBC (Bld) [#/Vol] 8.0 10*3/uL 4.4-11.[address] [facility] Duplex ultrasound of carotid artery reportOrdered By: Salvador Kwok on 02-06-2025 Study report [facility] Cardi[facility] Services [address] [place] [address] Carotid Duplex Ultrasound 02/05/25 0958 MR#: [id number] Acct: [id number] Name: HORACE HENDERSON Rep #:[id number] : [...] the left vertebral artery. Procedure Carotid Duplex 73321. This is a Carotid Duplex examination using B-mode, color flow and specral Doppler. Exam performed in department. VL/Carotid Duplex Ultrasound Interpretation Summary Mild (<50%) stenosis right extracranial internal carotid. Mild (<50%) stenosis left extracranial internal carotid. Patent and antegrade vertebrals bilaterally. Ordering Physician: Bhupendra Asif Referring Physician: George Vázquez M.D. Performed By: Jazmyn Dabry RVT 02/06/25736 Date _ Salvador Kwok MD CC: Dr. George Vázquez MD; RENEE Villagomez ~ Date Dictated: 02/05/25957 Date Transcribed: 02/06/25736 Dog Show Judge: Signed [facility] Work Phone: Carotid Duplex Ultrasoundon 02-05-2025 Carotid Duplex Ultrasound [facility] [address] [place] [address] Carotid Duplex Ultrasound 02/05/25957 MR#: [id number] Acct: [id number] Name: HORACE HENDERSON Rep #: [id number] : 1955 69 From: Salvador Kwok MD Attending Dr: RNEEE Villagomez Status: REG CL I Ordering Dr: Bhupendra Asif Date: 02/05/25 Location: [facility] Sex: M C Admitted: Reason [...] the left vertebral artery. Procedure Carotid Duplex 00096. This is a Carotid Duplex examination using B-mode, color flow and specral Doppler. Exam performed in department. VL/Carotid Duplex Ultrasound Interpretation Summary Mild (<50%) stenosis right extracranial internal carotid. Mild (<50%) stenosis left extracranial internal carotid. Patent and antegrade vertebrals bilaterally. Ordering Physician: Bhupendra Asif Referring Physician: George Vázquez M.D. Performed By: Jazmyn Darby, RVT 02/06/25736 Date Salvador Kwok MD CC: Dr. George Vázquez MD; RENEE Villagomez Date Dictated: 02/05/2558 Date Transcribed: 02/06/25736 Dog Show Judge: Signed Normal [facility] Cardiology Visit Reporton Cardiology Visit Report [facility] [address] [place] [address] OFFICE VISIT Date of Service: 01/20/25 MR#: [id number] Acct: [id number] Name: HORACE HENDERSON Rep #: [id number] : 1955 Provider: RENEE Villagomez Age/Sex: 69/M Location: [facility] [facility] Status: Signed Agree with assessment and [...] the last one occurring in [address] [facility]. Patient also has a history of COPD [...] Intake Visit Reasons: 1 WK FU PER Immersion Metalcleaner Required: No Is patient in pain?: No [...] (more content not included)... Normal [facility] 12 Lead EKG performed by [facility] on 01-08-2025 12 Lead EKG performed by [facility] [address] [place] [address] 12 Lead EKG performed by [facility] 01/08/25 1008 MR#: [id number] Acct: [id number] Name: HORACE HENDERSON Rep #: [id number] : 1955 69 From: Carrillo Malave MD Attending Dr: Dr. Carrillo Malave MD Status: DE P AMB Ordering Dr: Carrillo Malave MD Date: 01/08/25 [facility] [facility] Sex: M C Admitted: BMS/12 Lead EKG performed by [facility] ECG Report Interpretation --Sinus Rhythm -Right bundle branch block with left axis -bifascicular block. ABNORMAL Electronically signed on 01/08/2025 at 10:[address] Carrillo Malave [employer] Software Version 8610 01/08/25 1057 Date Carrillo Malave MD CC: Dr. George Vázquez MD Date Dictated: 01/08/25 1008 Date Transcribed: 01/08/251007 Dog Show Judge: Signed Normal [facility] Basic metabolic 2000 panelon 01-08-2025 Anion gap [Moles/Vol] 8 mmol/L Normal 8-15 [facility] Comment on above: Order Comment: Speci men Type: BLOOD SPECIMENOrdering Facility: [facility] Address: [address] [place] [address] Performed By: #### 2 4321-2 ####[facility] LABCLIA [id number] [place] [address] [place] Calcium [Mass/Vol] 10.2 mg/dL Normal 8.5-10.2 [facility] Comment on above: Order Comment: Speci men Type: BLOOD SPECIMENOrdering Facility: [facility] Address: [address] [place] [address] Performed By: #### 2 4321-2 ####[facility] LABCLIA [id number] [place] [address] [place] Chloride [Moles/Vol] 99 mmol/L Normal 98-107 [facility] Comment on above: Order Comment: Speci men Type: BLOOD SPECIMENOrdering Facility: [facility] Address: [address] [place] [address] Performed By: #### 2 4321-2 ####[facility] LABCLIA [id number] [place] [id number] [place] CO2 [Moles/Vol] 34 mmol/L High 22-30 [facility] Comment on above: Order Comment: Speci men Type: BLOOD SPECIMENOrdering Facility: [facility] Address: [address] [place] [address] Performed By: #### 2 4321-2 ####[facility] LABCLIA [id number] [place] [address] [place] [facility] Creatinine [Mass/Vol] 1.09 mg/dL Normal 0.73-1.22 [facility] Comment on above: Order Comment: Speci men Type: BLOOD SPECIMENOrdering Facility: [facility] Address: [address] [place] [address] Performed By: #### 2 4321-2 ####[facility] LABCLIA [id number] [address] Creatinine and Glomerular filtration rate.predicted panel (S/P/Bld) 73 mL/min/1.73m??? Normal >=60 [facility] Comment on above: Order Comment: Speci men Type: BLOOD SPECIMENOrdering Facility: [facility] Address: [address] [place] [address] Result Comment: Shelli mated Glomerular Filtration Rate [...] actual GFR. Performed By: #### 2 4321-2 ####[facility] LABCLIA [id number] [place] [address] [place] Glucose [Mass/Vol] 94 mg/dL Normal 74-99 [facility] Comment on above: Order Comment: Speci men Type: BLOOD SPECIMENOrdering Facility: [facility] Address: [address] [place] [address] Result Comment: The [place] Diabetes Association (ADA) provides guidance for cutoff [...] Standards of Medical Care in Diabetes 2016, [place] Diabetes Association. Diabetes Care. 2016.39(Suppl 1). Performed By: #### 2 4321-2 ####[facility] LABIA [id number] [place] [address] [place] Potassium [Moles/Vol] 3.6 mmol/L Low 3.7-5.1 [facility] Comment on above: Order Comment: Speci men Type: BLOOD SPECIMENOrdering Facility: [facility] Address: [address] [place] [address] Performed By: #### 2 4321-2 ####[facility] LABIA [id number] [place] [id number] [place] Sodium [Moles/Vol] 141 mmol/L Normal 136-144 [facility] Comment on above: Order Comment: Speci men Type: BLOOD SPECIMENOrdering Facility: [facility] Address: [address] [place] [address] Performed By: #### 2 4321-2 ####[facility] LABIA [id number] [place] [id number] [place] Urea nitrogen [Mass/Vol] 13 mg/dL Normal 9-24 [facility] Comment on above: Order Comment: Speci men Type: BLOOD SPECIMENOrdering Facility: [facility] Address: [address] [place] [id number] Performed By: #### 2 4321-2 ####[facility] LABCLIA [id number] [address] [facility] [place] [address] [place] CNOVon 01-08-2025 CNOV Office Visit (INTMWS ) -------- HORACE HENDERSON ([id number]) 1955 Date Time Provider Department 01/08/25 3:40 PM GEORGE VÁZQUEZ INTMWS During your visit today, we recorded the following information about you: Temperature Pulse Respiration Blood pressure 97.9 degrees 110/minute 20/minute 130/78 Weight 79.5 kg George Vázquez MD 01/08/2025 4:22 PM Signed This note was created using ForgeRockriter. Subjective Horace Henderson is a 69 year old male. He's had a productive cough with green phlegm, and increased dyspnea on exertion for the past 1.5 to 2 weeks. He had no upper respiratory infection symptoms, fever, or chills. He saw his wet and dry sugar bin operator Dr. Malave today, who ordered a chest [...] Effort: Pr (more content not included)... Normal [facility] HORACE HENDERSON ([id number]) 1955 M Date Time Provider Department 01/08/25 GEORGE VÁZQUEZ INTMWS During your visit today, we recorded the following information about you: Ihsan Christensen, RN 01/08/2025 11:24 AM Signed Patient reports he saw Dr. Malave at [facility] today. Dr. Malave did a EKG and CXR. Reports Dr. Malave advised him he was going to send CXR to pcp as it appears pt may have pneumonia and need an AB. Pt reports he has productive green cough, and SOB. No other symptoms. Please advise patient. [phone] Evelin Richey LPN 01/08/2025 11:45 AM Signed [...] lower lobe of left lung (low dose esverino*05/05/2021 Status post insertion of drug-eluting stent int*09/30/2021 Acute on chronic respiratory failure with hypox*10/30/2022 Gastroesophageal reflux disease [K21.9] 05/24/2023 Encounter Status:Closed by REBEL SARAH on 01/08/25 Normal [facility] Cardiology Visit Reporton Cardiology Visit Report [facility] [address] [place] [address] OFFICE VISIT Date of Service: 01/08/25 MR#: [id number] Acct: [id number] Name: HORACE HENDERSON Rep #: [id number] : 1955 Provider: Dr. Carrillo mirza MD Age/Sex: 69/M Location: [facility] Status: [...] graft without angina pectoris: Status: Chronic Qualifiers: [place] vs. transplanted heart: [place] heart Qualified Code(s): I25.810 - Atherosclerosis of coronary artery bypass graft(s) without angina pectoris Comment: CABG x 2 STEPHENS-LAD, SVG-D1 10/14/96 SVG-D1 is occluded PTCA to distal RCA, PCI/stent to proximal rPDA, PTCA of distal LCx and OM2 ISR on 11/12/[address] Ulrich of [facility];PTCA to distal RCA, PCI/stent to proximal rPDA, PTCA of distal LCx and OM2 ISR on 11/12/[address] Ulrich of [facility]; (3) Essential hypertension: Status: Acute (4) Leg edema: Status: Acute Orders: Orders Chest PA and Lateral Today R05.8 - Other specified cough Medications: New losartan 50 mg PO QPM 30 tabs 11RF Plan Details Follow Up: 2 Weeks (With Bhup[facility], [facility]) 01/08/25 1052 Date Carrillo Malave [...] you fallen in the past year?: No [facility] Medical History Essential hypertension Alcohol [...] disease), lumbar Atherosclerosis of coronary artery of [place] heart without angina pectoris Atherosclerosis of coronary [...] (more content not included)... Normal [facility] Chest PA and Lateralon 01-08 Chest PA and Lateral [facility] Imaging Services [address] [place] [address] [id number] Chest PA and Lateral MR#: [id number] Acct: [id number] Name: HORACE HENDERSON Rep #: [id number] : 1955 M 69 From: Jesus Amanda MD PCP: Dr. George Vázquez MD Status: REG CLI Study: Chest PA and Lateral Date of Exam: 01/08/25 Exam# [id number] Ordering Dr: Carrillo Malave MD EXAM: XR [...] Lateral IMPRESSION: Suggestion of COPD. Reading [facility] CC: Dr. Carrillo Malave MD; Dr. George Vázquez MD Dog Show Judge: Signed Normal [facility] BNP (brain natriuretic pepti de measurement)Ordered By: Neptali Orellana on 11-27-2024 Natriuretic peptide B (Bld) [Mass/Vol] 118.8 pg/mL High 0-100 [facility] BNP,B-Type NATRIURETIC PEPTI Ebony 11-27-2024 Natriuretic peptide B (Bld) [Mass/Vol] 118.8 pg/mL High 0-100 [facility] Comment on above: Performed By: #### L 500.2500, L503.6620 ####[facility] [address] [place], [address] Basic Metabolic Profile (BMP )on 11-27-2024 BUN/CRE 19.6 RATIO Normal 10-20 [facility] Comment on above: Performed By: #### L 500.2500, L503.6620 ####[facility] [address] [place], [address] CA,Total 9.0 mg/dL Normal 8.5-10.1 [facility] Comment on above: Performed By: #### L 500.2500, L503.6620 ####[facility] [address] [place], [address] Chloride [Moles/Vol] 103 mmol/L Normal 98-107 [facility] Comment on above: Performed By: #### L 500.2500, L503.6620 ####[facility] [address] [place], [address] CO2 [Moles/Vol] 28.0 mmol/L Normal 21.0-32.0 [facility] Comment on above: Performed By: #### L 500.2500, L503.6620 ####[facility] [address] [place], [address] Creatinine [Mass/Vol] 1.07 mg/dL Normal 0.70-1.30 [facility] Comment on above: Result Comment: The validity of the calculated GFR GFRAA in patients over 70 years has not been determined. Clinical correlation is essential. Performed By: #### L 500.2500, L503.6620 ####[facility] [address] [place], [address] EST GFR - AA 88 mL/min Normal >60 [facility] Comment on above: Result Comment: Afri can [place] GFR Calc Performed By: #### L 500.2500, L503.6620 ####[facility] [address] [place], [address] GAP 6 Normal 5-15 [facility] Comment on above: Performed By: #### L 500.2500, L503.6620 ####[facility] [address] [place], [address] GFR/1.73 sq M.predicted among non-blacks MDRD (S/P/Bld) [Vol rate/Area] 73 mL/min/{1.73_m2} Normal >60 [facility] Comment on above: Result Comment: Non- GFR Calc Performed By: #### L 500.2500, L503.6620 ####[facility] [address] [place], [address] Glucose [Mass/Vol] 112 mg/dL High 74-[address] [facility] Comment on above: Result Comment: Fast ing Glucose result from 100 to 125 mg/dL suggests IMPAIRED HOMEOSTASIS per A.D.A. criteria. Performed By: #### L 500.2500, L503.6620 ####[facility] [address] [place], [address] Potassium [Moles/Vol] 3.9 mmol/L Normal 3.5-5.1 [facility] Comment on above: Performed By: #### L 500.2500, L503.6620 ####[facility] [address] [place], [address] Sodium [Moles/Vol] 137 mmol/L Normal 136-[address] [facility] Comment on above: Performed By: #### L 500.2500, L503.6620 ####[facility] [address] [place], [address] Urea nitrogen [Mass/Vol] 21 mg/dL High 7-18 [facility] Comment on above: Performed By: #### L 500.2500, L503.6620 ####[facility] [address] [place], [address] Blood urea nitrogen (BUN)/cr eatinine ratioOrdered By: Neptali Orellana on 11-27-2024 Urea nitrogen/Creatinine [Mass ratio] 19.6 mg/mg 10-20 [facility] CTA Chest W/WO Contraston CTA Chest W/WO Contrast [facility] Services [address] [place] [address] CTA Chest W/WO Contrast MR#: [id number] Acct: [id number] Name: HORACE HENDERSON Rep #: [id number] : 1955 M 69 From: Byron elliott MD PCP: Dr. George Vázquez MD Status: [facility] Study: CTA Chest W/WO Contrast Date of Exam: 11/27/24 Exam# [id number] Ordering Dr: Neptali Orellana MD PROCEDURE: CTA [...] use of iterative reconstruction technique). Reading Location: [place] [address] CC: Dr. Neptali Orellana MD; Dr. George Vázquez MD Dog Show Judge: Signed Normal [facility] Carbon dioxide measurementOr dered By: Neptali Orellana on 11-27-2024 CO2 [Moles/Vol] 28.0 mmol/L 21.0-32.0 [facility] Chloride measurementOrdered By: Neptali Orellana on 11-27-2024 Chloride [Moles/Vol] 103 mmol/L 98-107 [facility] Estimated glomerular filtrat ion rate (GFR) AmericanOrdered By: Neptali Orellana on 11-27-2024 Estimated GFR (MDRD) Amer 88 mL/min >60 [facility] Comment on above: GFR Calc Glomerular filtration rate ( GFR) estimationOrdered By: Neptali Orellana on 11-27-2024 Estimated GFR (MDRD) Non-Af Amer 73 mL/min >60 [facility] Comment on above: Non- GFR Calc Glucose measurementOrdered B y: Neptali Orellana on 11-27-2024 Glucose [Mass/Vol] 112 mg/dL High 74-[address] [facility] Comment on above: Fasting Glucose resu lt from 100 to 125 mg/dL suggests IMPAIRED HOMEOSTASIS per A.D.A. criteria. Potassium measurementOrdered By: Neptali Orellana on 11-27-2024 Potassium [Moles/Vol] 3.9 mmol/L 3.5-5.1 [facility] Serum anion gap measurementO rdered By: Neptali Orellana on 11-27-2024 Anion gap [Moles/Vol] 6 mmol/L 5-15 [facility] Serum or plasma calcium jimbo urement (mass/volume)Ordered By: Neptali Orellana on 11-27-2024 Calcium [Mass/Vol] 9.0 mg/dL 8.5-10.[address] [facility] Serum or plasma creatinine m easurement (mass/volume)Ordered By: Neptali Orellana on 11-27-2024 Creatinine [Mass/Vol] 1.07 mg/dL 0.70-1.30 [facility] Comment on above: The validity of the calculated GFR & GFRAA in patients over 70 years has not been determined. Clinical correlation is essential. Serum or plasma urea nitroge n measurement (mass/volume)Ordered By: Neptlai Orellana on 11-27-2024 Urea nitrogen [Mass/Vol] 21 mg/dL High 7-18 [facility] Sodium levelOrdered By: Braxton Orellana on 11-27-2024 Sodium [Moles/Vol] 137 mmol/L 136-[address] [facility] Absolute neutrophil countOrd ered By: Neptali Orellana on 11-26-2024 Neutrophils (Bld) [#/Vol] 5.3 10*3/uL 2.0-7.7 [facility] Basophil percentageOrdered B y: Neptali Orellana on 11-26-2024 Basophils/100 WBC (Bld) 0.4 % 0-1 [facility] CBC W/Diff, Automatedon 10-31 Absolute Lymph 2.06 X10 3/uL Normal 0.83-4.51 [facility] Comment on above: Performed By: #### L 300.8000 #### [facility] [address] [place], [address] Absolute Neut 5.3 X10 3/uL Normal 2.0-7.7 [facility] Comment on above: Performed By: #### L 300.8000 #### [facility] [address] [facility] [place], [address] Basophils/100 WBC (Bld) 0.4 % Normal 0-1 [facility] Comment on above: Performed By: #### L 300.8000 #### [facility] [address] [place], [address] Eosinophils/100 WBC (Bld) 0.2 % Normal 0-5 [facility] Comment on above: Performed By: #### L 300.8000 #### [facility] [address] [place] [place], [address] Erythrocyte distribution width (RBC) [Ratio] 15.2 % High 11.6-14.6 [facility] Comment on above: Performed By: #### L 300.8000 #### [facility] [address] [place], [address] Hematocrit (Bld) [Volume fraction] 40.7 % Normal 40-54 [facility] Comment on above: Performed By: #### L 300.8000 #### [facility] [address] [place], [address] Hemoglobin (Bld) [Mass/Vol] 13.8 g/dL Normal 13.0-16.5 [facility] Comment on above: Performed By: #### L 300.8000 #### [facility] [address] [place], [address] IG% 0.700 Normal 0.0-0.9 [facility] Comment on above: Result Comment: IG% - Immature Granulocytes (promyelocytes, myelocytes and metamyelocytes) > 1% indicates that a LEFT SHIFT is Present. Performed By: #### L 300.8000 #### [facility] [address] [place], [address] Lymphocytes/100 WBC (Bld) 24.7 % Normal 19-41 [facility] Comment on above: Performed By: #### L 300.8000 #### [facility] [address] [place], [address] MCH (RBC) [Entitic mass] 32.4 pg High 27.0-32.0 [facility] Comment on above: Performed By: #### L 300.8000 #### [facility] [address] [place], [address] MCHC (RBC) [Mass/Vol] 33.9 g/dL Normal 32-36 [facility] Comment on above: Performed By: #### L 300.8000 #### [facility] [address] [place], [address] MCV (RBC) [Entitic vol] 95.5 fL High 80-94 [facility] Comment on above: Performed By: #### L 300.8000 #### [facility] [address] [place], [address] Monocytes/100 WBC (Bld) 10.1 % High 0-10 [facility] Comment on above: Performed By: #### L 300.8000 #### [facility] [address] [place], [address] Neutrophils/100 WBC (Bld) 63.9 % Normal 47-70 [facility] Comment on above: Performed By: #### L 300.8000 #### [facility] [address] [place], [address] Nucleated RBC (Bld) [#/Vol] 0 10*3/uL Normal 0-5 [facility] Comment on above: Performed By: #### L 300.8000 #### [facility] [address] [place], [address] Platelet mean volume (Bld) [Entitic vol] 9.7 fL Normal 6.2-12.0 [facility] Comment on above: Performed By: #### L 300.8000 #### [facility] [address] [place], [address] Platelets (Bld) [#/Vol] 205 10*3/uL Normal 150-450 [facility] Comment on above: Performed By: #### L 300.8000 #### [facility] [address] [place], [address] RBC (Bld) [#/Vol] 4.26 10*6/uL Low 4.6-6.2 [facility] Comment on above: Performed By: #### L 300.8000 #### [facility] [address] [place], [address] RDW SD 52.5 fl High 35.1-43.9 [facility] Comment on above: Performed By: #### L 300.8000 #### [facility] [address] [place], [address] WBC (Bld) [#/Vol] 8.3 10*3/uL Normal 4.4-11.[address] [facility] Comment on above: Performed By: #### L 300.8000 #### [facility] [address] [place], [address] D-Dimer Quantitative (DVT/PE )on 11-26-2024 D-DIMER QUANT 0.66 FEU/ug/m Invalid Interpretation Code 0.27-0.49 [facility] Comment on above: Result Comment: D-Di krissy ELEVATED (>0.49): Additional studies and clinical assessments are indicated to conclude diagnosis of: Deep Vein Thrombosis (DVT) or Pulmonary Embolism (PE) CRITICAL VALUE CALLED TO JACQUELINE ROMAN 11/26/24 1109 Kate Araya. RESULTS READ BACK BY SAME. Performed By: #### L 300.8000 #### [facility] [address] [place], [address] D-dimer measurement for deep venous thrombosisOrdered By: Carrillo Malave on 11-26-2024 D-Dimer Quantitative (PE/DVT) 0.66 FEU/ug/m High 0.27-0.49 [facility] Comment on above: D-Dimer ELEVATED (>0 .49): Additional studies and clinicalassessments are indicated to conclude diagnosis of:Deep Vein Thrombosis (DVT) or Pulmonary Embolism (PE)CRITICAL VALUE CALLED TO JACQUELINE ROMAN11/26/24 1109 Kate [place].RESULTS READ BACK BY SAME. Eosinophil percentageOrdered By: Neptali Orellana on 11-26-2024 Eosinophils/100 WBC (Bld) 0.2 % 0-5 [facility] Erythrocyte distribution wid th ratioOrdered By: Neptali Orellana on 11-26-2024 Erythrocyte distribution width (RBC) [Ratio] 15.2 % High 11.6-14.6 [facility] Erythrocyte distribution wid th standard deviationOrdered By: Neptali Orellana on 11-26-2024 Erythrocyte distribution width (RBC) [Entitic vol] 52.5 fL High 35.1-43.9 [facility] Hematocrit Auto (Bld) [Volum e fraction]Ordered By: Neptali Orellana on 11-26-2024 Hematocrit (Bld) [Volume fraction] 40.7 % 40-54 [facility] Hemoglobin measurementOrdere d By: Neptali Orellana on 11-26-2024 Hemoglobin (Bld) [Mass/Vol] 13.8 g/dL 13.0-16.5 [facility] Immature granulocytes/100 WB C Auto (Bld)Ordered By: Neptali Orellana on 11-26-2024 Immature granulocytes/100 WBC (Bld) 0.700 % 0.0-0.9 [facility] Comment on above: IG% - Immature Granu locytes (promyelocytes, myelocytes and metamyelocytes) > 1% indicates that a LEFT SHIFT is Present. Lymphocytes Auto (Unsp spec) [#/Vol]Ordered By: Neptali Orellana on 11-26-2024 Lymphocytes (Bld) [#/Vol] 2.06 10*3/uL 0.83-4.51 [facility] Lymphocytes/100 WBC Auto (Un sp spec)Ordered By: Neptali Orellana on 11-26-2024 Lymphocytes/100 WBC (Bld) 24.7 % 19-41 [facility] MCV (mean corpuscular volume ) determinationOrdered By: Neptali Orellana on 11-26-2024 MCV (RBC) [Entitic vol] 95.5 fL High 80-94 [facility] Mean corpuscular hemoglobin (MCH) determinationOrdered By: Neptali Orellana on 11-26-2024 MCH (RBC) [Entitic mass] 32.4 pg High 27.0-32.0 [facility] Mean corpuscular hemoglobin concentration (MCHC) determinationOrdered By: Neptali Orellana on 11-26-2024 MCHC (RBC) [Mass/Vol] 33.9 g/dL 32-36 [facility] Mean platelet volume determi nationOrdered By: Neptali Orellana on 11-26-2024 Platelet mean volume (Bld) [Entitic vol] 9.7 fL 6.2-12.0 [facility] Monocyte percentageOrdered B y: Neptali Orellana on 11-26-2024 Monocytes/100 WBC (Bld) 10.1 % High 0-10 [facility] Neutrophil percentageOrdered By: Neptali Orellana on 11-26-2024 Neutrophils/100 WBC (Bld) 63.9 % 47-70 [facility] Nucleated red blood cell per centageOrdered By: Neptali Orellana on 11-26-2024 Nucleated RBC/100 WBC (Bld) [Ratio] 0 % 0-5 [facility] Platelet countOrdered By: Sierra Orellana on 11-26-2024 Platelets (Bld) [#/Vol] 205 10*3/uL 150-450 [facility] RBC Auto (Bld) [#/Vol]Ordere d By: Neptali Orellana on 11-26-2024 RBC (Bld) [#/Vol] 4.26 10*6/uL Low 4.6-6.2 [facility] White blood cell (WBC) count Ordered By: Neptali Orellana on 11-26-2024 WBC (Bld) [#/Vol] 8.3 10*3/uL 4.4-11.[address] 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 Status: REG CLI Location: PSN Date: Sex: M C PSN 6 Minute Walk Test 6 Minute Walk Test 6 Minute Walk Test: 6 Minute Walk Test PSN:6-Minute Walk Test Start: 11/06/24 10:49 Freq: Status: Active Protocol: RESP.6MINW Document 11/06/24 10:49 MONIYUAN (Rec: 11/06/24 10:51 [facility] [id number]) 6 Minute Walk Test Date Performed 11/06/24 Time Performed 10:30 Height 5 ft 7 in Weight: 180 lb Weight in Pounds 180.[address]: Radha Roberts [employer] INST[employer]ER Assistive device used: None Pre-test Oxygen Delivery [...] Dictated: 11/11/24 1300 Date Transcribed: 11/11/24 1300 Dog Show Judge: Dr. Tevin Nelson DO Signed Normal [facility] Bilirubin directOrdered By: Carrillo Malave on 11-06-2024 Bilirubin.direct [Mass/Vol] 0.22 mg/dL 0.00-0.30 [facility] Bilirubin, totalOrdered By: Carrillo Malave on 11-06-2024 Bilirubin [Mass/Vol] 0.60 mg/dL 0.20-1.00 [facility] Comment on above: For patients on eltr ombopag therapy, use of Dimension Bluebell TBIL is not recommended. High density lipoprotein (HD L) measurementOrdered By: Carrillo Malave on 11-06-2024 Cholesterol in HDL [Mass/Vol] 98 mg/dL >40 [facility] Comment on above: The drugs N-Acetylcy steine and Metamizole may falsely depress this assay. Reference Range HDL <40 mg/dL Low HDL Cholesterol HDL >or= 60 mg/dL High HDL Cholesterol Laboratory - Chemistry and C hemistry - challengeOrdered By: Carrillo Malave on 11-06-2024 AST [Catalytic activity/Vol] 25 U/L 15-37 [facility] Lipid Profileon 11-06-2024 Cholesterol [Mass/Vol] 143 mg/dL Normal 200 [facility] Comment on above: Result Comment: <200 mg/dL Desirable 200-240 mg/dL Borderline >240 mg/dL High Risk Performed By: #### L 300.8000 #### [facility] [address] [place], [address] Cholesterol in HDL [Mass/Vol] 98 mg/dL Normal [facility] Comment on above: Result Comment: The drugs N-Acetylcysteine and Metamizole may falsely depress this assay. Reference Range HDL <40 mg/dL Low HDL Cholesterol HDL >or= 60 mg/dL High HDL Cholesterol Performed By: #### L 300.8000 #### [facility] [address] [place], [address] Cholesterol in LDL [Mass/Vol] 28 mg/dL Normal 0-130 [facility] Comment on above: Performed By: #### L 300.8000 #### [facility] [address] [place], [address] Cholesterol in VLDL [Mass/Vol] 17 mg/dL Normal 5-40 [facility] Comment on above: Performed By: #### L 300.8000 #### [facility] [address] [place], [address] Triglyceride [Mass/Vol] 86 mg/dL Normal [facility] Comment on above: Result Comment: The drugs N-Acetylcysteine and Metamizole may falsely depress this assay. Serum Triglycerides Reference Interval Normal <150 mg/dL Borderline high 150 - 199 mg/dL High 200 - 499 mg/dL Very High > or = 500 mg/dL Performed By: #### L 300.8000 #### [facility] [address] [place], [address] Liver Profileon 11-06-2024 Albumin [Mass/Vol] 3.2 g/dL Normal 3.2-5.[address] [facility] Comment on above: Performed By: #### L 100.0100 #### [facility] [address] [place], [address] ALK P 67 U/L Normal 45-117 [facility] Comment on above: Performed By: #### L 100.0100 #### [facility] [address] [place], [address] ALT [Catalytic activity/Vol] 31 U/L Normal 16-61 [facility] Comment on above: Performed By: #### L 100.0100 #### [facility] [address] [place], [address] AST [Catalytic activity/Vol] 25 U/L Normal 15-37 [facility] Comment on above: Performed By: #### L 100.0100 #### [facility] [address] [place], [address] Bilirubin [Mass/Vol] 0.60 mg/dL Normal 0.20-1.00 [facility] Comment on above: Result Comment: For patients on eltrombopag therapy, use of Dimension Bluebell TBIL is not recommended. Performed By: #### L 100.0100 #### [facility] [address] [place], [address] Bilirubin.direct [Mass/Vol] 0.22 mg/dL Normal 0.00-0.30 [facility] Comment on above: Performed By: #### L 100.0100 #### [facility] [address] [place], [address] Globulin (S) [Mass/Vol] 3.1 g/dL Normal 2.2-4.2 [facility] Comment on above: Performed By: #### L 100.0100 #### [facility] [address] [place], [address] T PROT 6.3 g/dL Low 6.4-8.2 [facility] Comment on above: Performed By: #### L 100.0100 #### [facility] [address] [place], [address] Low density lipoprotein (LDL ) cholesterol measurementOrdered By: Carrillo Malave on 11-06-2024 Cholesterol in LDL [Mass/Vol] 28 mg/dL 0-130 [facility] Serum globulin measurementOr dered By: Carrillo Malave on 11-06-2024 Globulin (S) [Mass/Vol] 3.1 g/dL 2.2-4.2 [facility] Serum or plasma alanine gomez otransferase (ALT) measurementOrdered By: Carrillo Malave on 11-06-2024 ALT [Catalytic activity/Vol] 31 U/L 16-61 [facility] Serum or plasma albumin jimbo urement (mass/volume)Ordered By: Carrillo Malave on 11-06-2024 Albumin [Mass/Vol] 3.2 g/dL 3.2-5.[address] [facility] Serum or plasma alkaline atif sphatase measurementOrdered By: Carrillo Malave on 11-06-2024 ALP [Catalytic activity/Vol] 67 U/L 45-117 [facility] Serum or plasma cholesterol measurement (mass/volume)Ordered By: Carrillo Malave on 11-06-2024 Cholesterol [Mass/Vol] 143 mg/dL <200 [facility] Comment on above: <200 mg/dL Desirable 200-240 mg/dL Borderline >240 mg/dL High Risk TSH QnOrdered By: Carrillo daley on 11-06-2024 Thyroid Stimulating Hormone (TSH) 1.320 uIU/mL 0.358-3.740 [facility] Thyroid Stim Hormone (TSH)on 11-06-2024 TSH 1.320 uIU/mL Normal 0.358-3.740 [facility] Comment on above: Performed By: #### L 300.8000 #### [facility] [address] [place], [address] Total proteinOrdered By: Randy Malave on 11-06-2024 Protein [Mass/Vol] 6.3 g/dL Low 6.4-8.[address] [facility] Triglycerides measurementOrd ered By: Carrillo Malave on 11-06-2024 Triglyceride [Mass/Vol] 86 mg/dL <199 [facility] Comment on above: The drugs N-Acetylcy steine and Metamizole may falsely depress this assay.Serum Triglycerides Reference Interval Normal <150 mg/dL Borderline high 150 - 199 mg/dL High 200 - 499 mg/dL Very High > or = 500 mg/dL Very low density lipoprotein (VLDL) cholesterol measurementOrdered By: Carrillo Malave on 11-06-2024 VLDL Cholesterol 17 mg/dL 5-40 [facility] 12 Lead EKG performed by [facility] on 11-05-2024 12 Lead EKG performed by [facility] [address] [facility] [place] [address] 12 Lead EKG performed by [facility] 11/05/24 1309 MR#: [id number] Acct: [id number] Name: HORACE HENDERSON Rep #: [id number] : 1955 69 From: Carrillo Malave MD Attending Dr: Dr. Carrillo Malave MD Status: DE P AMB Ordering Dr: Carrillo Mlaave MD Date: 11/05/24 Location: [facility] Sex: M C Admitted: BMS/12 Lead EKG performed by [facility] ECG Report Interpretation --Sinus Tachycardia -Right bundle branch block with left axis -bifascicular block. ABNORMAL Electronically signed on 11/05/2024 at 15:[address] Carrillo Malave [employer] Version 8610 11/05/24 1511 Date Carrillo Malave MD CC: Dr. George Vázquez MD Date Dictated: 11/05/24 1309 Date Transcribed: 11/05/24 130 Dog Show Judge: Signed Normal [facility] Cardiology Visit Reporton Cardiology Visit Report [facility] [address] [place] [address] OFFICE VISIT Date of Service: 11/05/24 MR#: [id number] Acct: [id number] Name: HORACE HENDERSON Rep #: [id number] : 1955 Provider: Dr. Carrillo mirza MD Age/Sex: 69/M Location: [facility] Status: Signed HPI HPI History of [...] artery last one occurring in 2020 at [facility]. The patient was recently admitted to the [...] procedures, etc.??? 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 He was referred to [facility] interventional team with Dr. 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 Normal [facility] Basic Metabolic Profile (BMP )on 10-31-2024 BUN Normal - [facility] Comment on above: Result Comment: Canc elled via OM: Order cancelled - Patient discharged Performed By: #### L 300.8000 #### [facility] [address] [place], [address] BUN/CRE Normal - [facility] Comment on above: Result Comment: Canc elled via OM: Order cancelled - Patient discharged Performed By: #### L 300.8000 #### [facility] [address] [place], [address] CA,Total Normal 8.5-10.1 [facility] Comment on above: Result Comment: Canc elled via OM: Order cancelled - Patient discharged Performed By: #### L 300.8000 #### [facility] [address] [place], [address] CL Normal 98-107 [facility] Comment on above: Result Comment: Canc elled via OM: Order cancelled - Patient discharged Performed By: #### L 300.8000 #### [facility] [address] [place], [address] CO2 Normal 21.0-32.0 [facility] Comment on above: Result Comment: Canc elled via OM: Order cancelled - Patient discharged Performed By: #### L 300.8000 #### [facility] [address] [place], [address] CREAT,SERUM Normal 0.70-1.30 [facility] Comment on above: Result Comment: Canc elled via OM: Order cancelled - Patient discharged Performed By: #### L 300.8000 #### [facility] [address] [place], [address] EST GFR Normal >60 [facility] Comment on above: Result Comment: Canc elled via OM: Order cancelled - Patient discharged Performed By: #### L 300.8000 #### [facility] [address] [place], [address] EST GFR - AA Normal >60 [facility] Comment on above: Result Comment: Canc elled via OM: Order cancelled - Patient discharged Performed By: #### L 300.8000 #### [facility] [address] [place], [address] GAP Normal 5-15 [facility] Comment on above: Result Comment: Canc elled via OM: Order cancelled - Patient discharged Performed By: #### L 300.8000 #### [facility] [address] [place], [address] GLU Normal 74-106 [facility] Comment on above: Result Comment: Canc elled via OM: Order cancelled - Patient discharged Performed By: #### L 300.8000 #### [facility] [address] [place], [address] Potassium Normal 3.5-5.1 [facility] Comment on above: Result Comment: Canc elled via OM: Order cancelled - Patient discharged Performed By: #### L 300.8000 #### [facility] [address] [place], [address] Basic Metabolic Profile (BMP) Normal 136-145 [facility] Comment on above: Result Comment: Canc elled via OM: Order cancelled - Patient discharged Performed By: #### L 300.8000 #### [facility] [address] [place], [address] Basic Metabolic Profile (BMP )on 10-30-2024 BUN Normal 7-18 [facility] Comment on above: Result Comment: Canc elled via OM: Order cancelled - Patient discharged Performed By: #### L 300.8000 #### [facility] [address] [place], [address] BUN/CRE Normal 10-20 [facility] Comment on above: Result Comment: Canc elled via OM: Order cancelled - Patient discharged Performed By: #### L 300.8000 #### [facility] [address] [place], [address] CA,Total Normal 8.5-10.1 [facility] Comment on above: Result Comment: Canc elled via OM: Order cancelled - Patient discharged Performed By: #### L 300.8000 #### [facility] [address] [place], [address] CL Normal 98-107 [facility] Comment on above: Result Comment: Canc elled via OM: Order cancelled - Patient discharged Performed By: #### L 300.8000 #### [facility] [address] [place], [address] CO2 Normal 21.0-32.0 [facility] Comment on above: Result Comment: Canc elled via OM: Order cancelled - Patient discharged Performed By: #### L 300.8000 #### [facility] [address] [place], [address] CREAT,SERUM Normal 0.70-1.30 [facility] Comment on above: Result Comment: Canc elled via OM: Order cancelled - Patient discharged Performed By: #### L 300.8000 #### [facility] [address] [place], [address] EST GFR Normal >60 [facility] Comment on above: Result Comment: Canc elled via OM: Order cancelled - Patient discharged Performed By: #### L 300.8000 #### [facility] [address] [place], [address] EST GFR - AA Normal >60 [facility] Comment on above: Result Comment: Canc elled via OM: Order cancelled - Patient discharged Performed By: #### L 300.8000 #### [facility] [address] [place], [address] GAP Normal 5-15 [facility] Comment on above: Result Comment: Canc elled via OM: Order cancelled - Patient discharged Performed By: #### L 300.8000 #### [facility] [address] [place], [address] GLU Normal 74-106 [facility] Comment on above: Result Comment: Canc elled via OM: Order cancelled - Patient discharged Performed By: #### L 300.8000 #### [facility] [address] [place], [address] Potassium Normal 3.5-5.1 [facility] Comment on above: Result Comment: Canc elled via OM: Order cancelled - Patient discharged Performed By: #### L 300.8000 #### [facility] [address] [place], [address] Basic Metabolic Profile (BMP) Normal 136-145 [facility] Comment on above: Result Comment: Canc elled via OM: Order cancelled - Patient discharged Performed By: #### L 300.8000 #### [facility] [address] [place], [address] Basic Metabolic Profile (BMP )on 10-29-2024 BUN Normal 7-18 [facility] Comment on above: Result Comment: Canc elled via OM: Order cancelled - Patient discharged Performed By: #### L 500.2500 ####[facility] [address] [place], [address] BUN/CRE Normal 10-20 [facility] Comment on above: Result Comment: Canc elled via OM: Order cancelled - Patient discharged Performed By: #### L 500.2500 ####[facility] [address] [place], [address] CA,Total Normal 8.5-10.1 [facility] Comment on above: Result Comment: Canc elled via OM: Order cancelled - Patient discharged Performed By: #### L 500.2500 ####[facility] [address] [place], [address] CL Normal 98-107 [facility] Comment on above: Result Comment: Canc elled via OM: Order cancelled - Patient discharged Performed By: #### L 500.2500 ####[facility] [address] [place], [address] CO2 Normal 21.0-32.0 [facility] Comment on above: Result Comment: Canc elled via OM: Order cancelled - Patient discharged Performed By: #### L 500.2500 ####[facility] [address] [place], [address] CREAT,SERUM Normal 0.70-1.30 [facility] Comment on above: Result Comment: Canc elled via OM: Order cancelled - Patient discharged Performed By: #### L 500.2500 ####[facility] [address] [place], [address] EST GFR Normal >60 [facility] Comment on above: Result Comment: Canc elled via OM: Order cancelled - Patient discharged Performed By: #### L 500.2500 ####[facility] [address] [place], [address] EST GFR - AA Normal >60 [facility] Comment on above: Result Comment: Canc elled via OM: Order cancelled - Patient discharged Performed By: #### L 500.2500 ####[facility] [address] [place], [address] GAP Normal 5-15 [facility] Comment on above: Result Comment: Canc elled via OM: Order cancelled - Patient discharged Performed By: #### L 500.2500 ####[facility] [address] [place], [address] GLU Normal 74-106 [facility] Comment on above: Result Comment: Canc elled via OM: Order cancelled - Patient discharged Performed By: #### L 500.2500 ####[facility] [address] [place], [address] Potassium Normal 3.5-5.1 [facility] Comment on above: Result Comment: Canc elled via OM: Order cancelled - Patient discharged Performed By: #### L 500.2500 ####[facility] [address] [place], [address] Basic Metabolic Profile (BMP) Normal 136-145 [facility] Comment on above: Result Comment: Canc elled via OM: Order cancelled - Patient discharged Performed By: #### L 500.2500 ####[facility] [address] [place], [address] Basic Metabolic Profile (BMP )on 10-28-2024 BUN/CRE 12.8 RATIO Normal 10-20 [facility] Comment on above: Performed By: #### L 100.0500, L500.2500 #### [facility] [address] [place], [address] CA,Total 8.9 mg/dL Normal 8.5-10.1 [facility] Comment on above: Performed By: #### L 100.0500, L500.2500 #### [facility] [address] [place], [address] Chloride [Moles/Vol] 104 mmol/L Normal 98-107 [facility] Comment on above: Performed By: #### L 100.0500, L500.2500 #### [facility] [address] [place], [address] CO2 [Moles/Vol] 30.0 mmol/L Normal 21.0-32.0 [facility] Comment on above: Performed By: #### L 100.0500, L500.2500 #### [facility] [address] [place], [address] Creatinine [Mass/Vol] 2.03 mg/dL High 0.70-1.30 [facility] Comment on above: Result Comment: The validity of the calculated GFR GFRAA in patients over 70 years has not been determined. Clinical correlation is essential. Performed By: #### L 100.0500, L500.2500 #### [facility] [address] [place], [address] ECRCL 34.51 ml/min Normal [facility] Comment on above: Performed By: #### L 100.0500, L500.2500 #### [facility] [address] [place], [address] EST GFR - AA 42 mL/min Low >60 [facility] Comment on above: Result Comment: Afri can [place] GFR Calc Performed By: #### L 100.0500, L500.2500 #### [facility] [address] [place], [address] GAP 3 Low 5-15 [facility] Comment on above: Performed By: #### L 100.0500, L500.2500 #### [facility] [address] [place], [address] GFR/1.73 sq M.predicted among non-blacks MDRD (S/P/Bld) [Vol rate/Area] 35 mL/min/{1.73_m2} Low >60 [facility] Comment on above: Result Comment: Non- GFR Calc Performed By: #### L 100.0500, L500.2500 #### [facility] [address] [place], [address] Glucose [Mass/Vol] 135 mg/dL High 74-[address] [facility] Comment on above: Result Comment: Fast ing Glucose result greater than or equal to 126 mg/dL suggests DIABETES MELLITUS per A.D.A. criteria. Performed By: #### L 100.0500, L500.2500 #### [facility] [address] [place], [address] Potassium [Moles/Vol] 3.0 mmol/L Low 3.5-5.1 [facility] Comment on above: Performed By: #### L 100.0500, L500.2500 #### [facility] [address] [place], [address] Sodium [Moles/Vol] 138 mmol/L Normal 136-[address] [facility] Comment on above: Performed By: #### L 100.0500, L500.2500 #### [facility] [address] [place], [address] Urea nitrogen [Mass/Vol] 26 mg/dL High 7-18 [facility] Comment on above: Performed By: #### L 100.0500, L500.2500 #### [facility] [address] [place], [address] Blood urea nitrogen (BUN)/cr eatinine ratioOrdered By: Vicente Andrews on 10-28-2024 Urea nitrogen/Creatinine [Mass ratio] 12.8 mg/mg 10-20 [facility] CBC-Complete Blood Cnt No Di ffon 10-28-2024 Erythrocyte distribution width (RBC) [Ratio] 13.5 % Normal 11.6-14.6 [facility] Comment on above: Performed By: #### L 100.0500, L500.2500 #### [facility] [address] [place], [address] Hematocrit (Bld) [Volume fraction] 39.4 % Low 40-54 [facility] Comment on above: Performed By: #### L 100.0500, L500.2500 #### [facility] [address] [place], [address] Hemoglobin (Bld) [Mass/Vol] 13.4 g/dL Normal 13.0-16.5 [facility] Comment on above: Performed By: #### L 100.0500, L500.2500 #### [facility] [address] [place], [address] MCH (RBC) [Entitic mass] 32.0 pg Normal 27.0-32.0 [facility] Comment on above: Performed By: #### L 100.0500, L500.2500 #### [facility] [address] [place], [address] MCHC (RBC) [Mass/Vol] 34.0 g/dL Normal 32-36 [facility] Comment on above: Performed By: #### L 100.0500, L500.2500 #### [facility] [facility] [address] [place], [address] MCV (RBC) [Entitic vol] 94.0 fL Normal 80-94 [facility] Comment on above: Performed By: #### L 100.0500, L500.2500 #### [facility] [address] [place] [place], [address] Platelet mean volume (Bld) [Entitic vol] 9.4 fL Normal 6.2-12.0 [facility] Comment on above: Performed By: #### L 100.0500, L500.2500 #### [facility] [address] [place], [address] Platelets (Bld) [#/Vol] 148 10*3/uL Low 150-450 [facility] Comment on above: Performed By: #### L 100.0500, L500.2500 #### [facility] [address] [place], [address] RBC (Bld) [#/Vol] 4.19 10*6/uL Low 4.6-6.2 [facility] Comment on above: Performed By: #### L 100.0500, L500.2500 #### [facility] [address] [place], [address] RDW SD 45.9 fl High 35.1-43.9 [facility] Comment on above: Performed By: #### L 100.0500, L500.2500 #### [facility] [address] [place], [address] WBC (Bld) [#/Vol] 8.3 10*3/uL Normal 4.4-11.[address] [facility] Comment on above: Performed By: #### L 100.0500, L500.2500 #### [facility] [address] [place], [address] Carbon dioxide measurementOr dered By: Vicente Andrews on 10-28-2024 CO2 [Moles/Vol] 30.0 mmol/L 21.0-32.0 [facility] Chloride measurementOrdered By: Vicente Andrews on 10-28-2024 Chloride [Moles/Vol] 104 mmol/L 98-107 [facility] Discharge Instructionon 10-01 Discharge Instruction [facility] Medical Records Department [address] [place] [address] Instructions for Home/Discharge Instructions 10/28/24 1637 MR#: [id number] Acct: [id number] Name: HORACE HENDERSON Rep #: [id number] : 1955 69 From: Vicente Andrews DO [...] can be placed): Home, Self Care 10/28/24 2816 Vicente Andrews DO CC: Dr. George Vázquez MD Signed Normal [facility] Echo Complete W/ Contraston 10-28-2024 Echo Complete W/ Contrast [facility] Cardiovascular Services [address] [place] [address] Echo Complete W/ Contrast 10/28/24 1331 MR#: [id number] Acct: [id number] Name: HORACE HENDERSON Rep #: [id number] : 1955 69 From: Tomy Hanks MD [...] Date Dictated: 10/28/24 1331 Date Transcribed: 10/28/241628 Dog Show Judge: Signed Normal [facility] Erythrocyte distribution wid th ratioOrdered By: Vicente Andrews on 10-28-2024 Erythrocyte distribution width (RBC) [Ratio] 13.5 % 11.6-14.6 [facility] Erythrocyte distribution wid th standard deviationOrdered By: Vicente Andrews on 10-28-2024 Erythrocyte distribution width (RBC) [Entitic vol] 45.9 fL High 35.1-43.9 [facility] Estimated glomerular filtrat ion rate (GFR) AmericanOrdered By: Vicente Andrews on 10-28-2024 Estimated GFR (MDRD) Amer 42 mL/min Low >60 [facility] Comment on above: GFR Calc Estimation of creatinine rosi aranceOrdered By: Vicnete Andrews on 10-28-2024 Estimated Creatinine Clearance Calc 34.51 ml/min [facility] Glomerular filtration rate ( GFR) estimationOrdered By: Vicente Andrews on 10-28-2024 Estimated GFR (MDRD) Non-Af Amer 35 mL/min Low >60 [facility] Comment on above: Non- GFR Calc Glucose measurementOrdered B y: Vicente Andrews on 10-28-2024 Glucose [Mass/Vol] 135 mg/dL High 74-[address] [facility] Comment on above: Fasting Glucose resu lt greater than or equal to 126 mg/dL suggests DIABETES MELLITUS per A.D.A. criteria. Hematocrit Auto (Bld) [Volum e fraction]Ordered By: Vicente Andrews on 10-28-2024 Hematocrit (Bld) [Volume fraction] 39.4 % Low 40-54 [facility] Hemoglobin measurementOrdere d By: Vicente Andrews on 10-28-2024 Hemoglobin (Bld) [Mass/Vol] 13.4 g/dL 13.0-16.5 [facility] MCV (mean corpuscular volume ) determinationOrdered By: Vicente Andrews on 10-28-2024 MCV (RBC) [Entitic vol] 94.0 fL 80-94 [facility] Magnesiumon 10-28-2024 Magnesium [Mass/Vol] 2.5 mg/dL Normal 1.6-2.6 [facility] Comment on above: Performed By: #### L 501.2300, L501.5200 ####[facility] [address] [place], [address] Magnesium measurementOrdered By: Vicente Andrews on 10-28-2024 Magnesium [Mass/Vol] 2.5 mg/dL 1.6-2.6 [facility] Mean corpuscular hemoglobin (MCH) determinationOrdered By: Vicente Andrews on 10-28-2024 MCH (RBC) [Entitic mass] 32.0 pg 27.0-32.0 [facility] Mean corpuscular hemoglobin concentration (MCHC) determinationOrdered By: Vicente Andrews on 10-28-2024 MCHC (RBC) [Mass/Vol] 34.0 g/dL 32-36 [facility] Mean platelet volume determi nationOrdered By: Vicente Andrews on 10-28-2024 Platelet mean volume (Bld) [Entitic vol] 9.4 fL 6.2-12.0 [facility] Phosphoruson 10-28-2024 Phosphate [Mass/Vol] 2.3 mg/dL Low 2.5-4.9 [facility] Comment on above: Performed By: #### L 501.2300, L501.5200 ####[facility] [address] [place], [address] Phosphorus measurementOrdere d By: Vicente Andrews on 10-28-2024 Phosphorus Level 2.3 mg/dL Low 2.5-4.9 [facility] Platelet countOrdered By: Nj Andrews on 10-28-2024 Platelets (Bld) [#/Vol] 148 10*3/uL Low 150-450 [facility] Potassium measurementOrdered By: Vicente Andrews on 10-28-2024 Potassium [Moles/Vol] 3.0 mmol/L Low 3.5-5.1 [facility] RBC Auto (Bld) [#/Vol]Ordere d By: Vicente Andrews on 10-28-2024 RBC (Bld) [#/Vol] 4.19 10*6/uL Low 4.6-6.2 [facility] Serum anion gap measurementO rdered By: Vicente Andrews on 10-28-2024 Anion gap [Moles/Vol] 3 mmol/L Low 5-15 [facility] Serum or plasma calcium jimbo urement (mass/volume)Ordered By: Vicente Andrews on 10-28-2024 Calcium [Mass/Vol] 8.9 mg/dL 8.5-10.[address] [facility] Serum or plasma creatinine m easurement (mass/volume)Ordered By: Vicente Andrews on 10-28-2024 Creatinine [Mass/Vol] 2.03 mg/dL High 0.70-1.30 [facility] Comment on above: The validity of the calculated GFR & GFRAA in patients over 70 years has not been determined. Clinical correlation is essential. Serum or plasma urea nitroge n measurement (mass/volume)Ordered By: Vicente Andrews on 10-28-2024 Urea nitrogen [Mass/Vol] 26 mg/dL High 7-18 [facility] Sodium levelOrdered By: Pablo Andrews on 10-28-2024 Sodium [Moles/Vol] 138 mmol/L 136-[address] [facility] White blood cell (WBC) count Ordered By: Vicente Andrews on 10-28-2024 WBC (Bld) [#/Vol] 8.3 10*3/uL 4.4-11.[address] [facility] 12 Lead EKGon 10-27-2024 12 Lead EKG [facility] Cardiovascular Services [address] [place] [address] 12 Lead EKG 10/27/24 1228 MR#: [id number] Acct: [id number] Name: HORACE HENDERSON Rep #: [id number] : 1955 69 From: Tomy Hanks MD Attending Dr: Dr. Vicente Andrews DO Status : ADM GONZÁLEZ Ordering Dr: John Harvey Date: 10/27/24 Location: [facility] Sex: M C Admitted: 10/27/24 Test Reason [...] Abnormal ECG Confirmed by LATONYA LOPEZ, TOMY ([id number]), editor & co founder REB[employer]ICE ([id number]) on 10/28/2024 10:53:45 AM Referred By: LÁZARO Confirmed By: TOMY HANKS MD 10/28/24 1053 Date Tomy Hanks MD CC: Dr. Vicente Andrews DO; Dr. George Vázquez MD; RENEE Beckett Signed Normal [facility] Absolute neutrophil countOrd ered By: John Harvey on 10-27-2024 Neutrophils (Bld) [#/Vol] 9.2 10*3/uL High 2.0-7.7 [facility] Basic Metabolic Profile (BMP )on 10-27-2024 BUN/CRE 13.6 RATIO Normal 10-20 [facility] Comment on above: Order Comment: 'TROP ' Serial specimen #1, #2 or #3: 1 Performed By: #### L 300.8000 #### [facility] [address] [place], [address] CA,Total 9.3 mg/dL Normal 8.5-10.1 [facility] Comment on above: Order Comment: 'TROP ' Serial specimen #1, #2 or #3: 1 Performed By: #### L 300.8000 #### [facility] [address] [place], [address] Chloride [Moles/Vol] 100 mmol/L Normal 98-107 [facility] Comment on above: Order Comment: 'TROP ' Serial specimen #1, #2 or #3: 1 Performed By: #### L 300.8000 #### [facility] [address] [place], [address] CO2 [Moles/Vol] 25.0 mmol/L Normal 21.0-32.0 [facility] Comment on above: Order Comment: 'TROP ' Serial specimen #1, #2 or #3: 1 Performed By: #### L 300.8000 #### [facility] [address] [place], [address] Creatinine [Mass/Vol] 2.13 mg/dL High 0.70-1.30 [facility] Comment on above: Order Comment: 'TROP ' Serial specimen #1, #2 or #3: 1 Result Comment: The validity of the calculated GFR GFRAA in patients over 70 years has not been determined. Clinical correlation is essential. Performed By: #### L 300.8000 #### [facility] [address] [place], [address] ECRCL 33.31 ml/min Normal [facility] Comment on above: Order Comment: 'TROP ' Serial specimen #1, #2 or #3: 1 Performed By: #### L 300.8000 #### [facility] [address] [place], [address] EST GFR - AA 40 mL/min Low >60 [facility] Comment on above: Order Comment: 'TROP ' Serial specimen #1, #2 or #3: 1 Result Comment: Afri can [place] GFR Calc Performed By: #### L 300.8000 #### [facility] [address] [place], [address] GAP 6 Normal 5-15 [facility] Comment on above: Order Comment: 'TROP ' Serial specimen #1, #2 or #3: 1 Performed By: #### L 300.8000 #### [facility] [address] [place], [address] GFR/1.73 sq M.predicted among non-blacks MDRD (S/P/Bld) [Vol rate/Area] 33 mL/min/{1.73_m2} Low >60 [facility] Comment on above: Order Comment: 'TROP ' Serial specimen #1, #2 or #3: 1 Result Comment: Non- GFR Calc Performed By: #### L 300.8000 #### [facility] [address] [place], [address] Glucose [Mass/Vol] 120 mg/dL High 74-[address] [facility] Comment on above: Order Comment: 'TROP ' Serial specimen #1, #2 or #3: 1 Result Comment: Fast ing Glucose result from 100 to 125 mg/dL suggests IMPAIRED HOMEOSTASIS per A.D.A. criteria. Performed By: #### L 300.8000 #### [facility] [address] [place], [address] Potassium [Moles/Vol] 3.8 mmol/L Normal 3.5-5.1 [facility] Comment on above: Order Comment: 'TROP ' Serial specimen #1, #2 or #3: 1 Result Comment: Mode rate Hemolysis, Result may be falsely increased. Performed By: #### L 300.8000 #### [facility] [address] [place], [address] Sodium [Moles/Vol] 130 mmol/L Low 136-[address] [facility] Comment on above: Order Comment: 'TROP ' Serial specimen #1, #2 or #3: 1 Performed By: #### L 300.8000 #### [facility] [address] [place], [address] Urea nitrogen [Mass/Vol] 29 mg/dL High 7-18 [facility] Comment on above: Order Comment: 'TROP ' Serial specimen #1, #2 or #3: 1 Performed By: #### L 300.8000 #### [facility] [address] [place], [place], [address] Basophil percentageOrdered B y: John Harvey on 10-27-2024 Basophils/100 WBC (Bld) 0.3 % 0-1 [facility] Bilirubin Test strip Ql (U)O rdered By: John Harvey on 10-27-2024 Bilirubin Ql (U) Negative Negative [facility] Brain/Head without Contrasto n 10-27-2024 Brain/Head without Contrast [facility] Imaging Services [address] [place] [address] Brain/Head without Contrast MR#: [id number] Acct: [id number] Name: HORACE HENDERSON Rep #: [id number] : 1955 M 69 From: Pablo Gross MD PCP: Dr. George Vázquez MD Status: REG ER Study: Brain/Head without Contrast Date of Exam: 09/30 07/23 Exam# [id number] Ordering Dr: John Harvey [id number] EXAM: CT HEAD WITHOUT INTRAVENOUS CONTRAST CLINICAL [...] CC: Dr. George Vázquez MD; RENEE Beckett Dog Show Judge: Signed Normal [facility] CBC W/Diff, Automatedon 12-2 Absolute Lymph 1.48 X10 3/uL Normal 0.83-4.51 [facility] Comment on above: Performed By: #### L 300.8000 #### [facility] [address] [place], [address] Absolute Neut 9.2 X10 3/uL High 2.0-7.7 [facility] Comment on above: Performed By: #### L 300.8000 #### [facility] [address] [place], [address] Basophils/100 WBC (Bld) 0.3 % Normal 0-1 [facility] Comment on above: Performed By: #### L 300.8000 #### [facility] [address] [place], [address] Eosinophils/100 WBC (Bld) 0.3 % Normal 0-5 [facility] Comment on above: Performed By: #### L 300.8000 #### [facility] [address] [place], [address] Erythrocyte distribution width (RBC) [Ratio] 13.4 % Normal 11.6-14.6 [facility] Comment on above: Performed By: #### L 300.8000 #### [facility] [address] [place], [address] Hematocrit (Bld) [Volume fraction] 43.4 % Normal 40-54 [facility] Comment on above: Performed By: #### L 300.8000 #### [facility] [address] [place], [address] Hemoglobin (Bld) [Mass/Vol] 15.1 g/dL Normal 13.0-16.5 [facility] Comment on above: Performed By: #### L 300.8000 #### [facility] [address] [place], [address] IG% 0.700 Normal 0.0-0.9 [facility] Comment on above: Result Comment: IG% - Immature Granulocytes (promyelocytes, myelocytes and metamyelocytes) > 1% indicates that a LEFT SHIFT is Present. Performed By: #### L 300.8000 #### [facility] [address] [place], [address] Lymphocytes/100 WBC (Bld) 12.9 % Low 19-41 [facility] Comment on above: Performed By: #### L 300.8000 #### [facility] [address] [place], [address] MCH (RBC) [Entitic mass] 32.4 pg High 27.0-32.0 [facility] Comment on above: Performed By: #### L 300.8000 #### [facility] [address] [place], [address] MCHC (RBC) [Mass/Vol] 34.8 g/dL Normal 32-36 [facility] Comment on above: Performed By: #### L 300.8000 #### [facility] [address] [place], [address] MCV (RBC) [Entitic vol] 93.1 fL Normal 80-94 [facility] Comment on above: Performed By: #### L 300.8000 #### [facility] [address] [place], [address] Monocytes/100 WBC (Bld) 6.3 % Normal 0-10 [facility] Comment on above: Performed By: #### L 300.8000 #### [facility] [address] [place], [address] Neutrophils/100 WBC (Bld) 79.5 % High 47-70 [facility] Comment on above: Performed By: #### L 300.8000 #### [facility] [address] [place], [address] Nucleated RBC (Bld) [#/Vol] 0 10*3/uL Normal 0-5 [facility] Comment on above: Performed By: #### L 300.8000 #### [facility] [address] [place], [address] Platelet mean volume (Bld) [Entitic vol] 9.5 fL Normal 6.2-12.0 [facility] Comment on above: Performed By: #### L 300.8000 #### [facility] [place], [address] Platelets (Bld) [#/Vol] 179 10*3/uL Normal 150-450 [facility] Comment on above: Performed By: #### L 300.8000 #### [facility] [address] [place], [address] RBC (Bld) [#/Vol] 4.66 10*6/uL Normal 4.6-6.2 [facility] Comment on above: Performed By: #### L 300.8000 #### [facility] [address] [place], [address] RDW SD 45.6 fl High 35.1-43.9 [facility] Comment on above: Performed By: #### L 300.8000 #### [facility] [address] [place], [address] WBC (Bld) [#/Vol] 11.5 10*3/uL High 4.4-11.0 [facility] Comment on above: Performed By: #### L 300.8000 #### [facility] [address] [place], [place], [address] Chest 1 View (Portable)on Chest 1 View (Portable) [facility] Imaging Services [address] [place] [address] Chest 1 View (Portable) MR#: [id number] Acct: [id number] Name: HORACE HENDERSON Rep #: [id number] : 1955 M 69 From: Pablo Gross MD PCP: Dr. George Vázquez MD Status: [facility] ER Study: Chest 1 View (Portable) Date of Exam: 10/27/24 Exam# [id number] Ordering Dr: John Harvey [id number] EXAM: XR CHEST, 1 VIEW CLINICAL INDICATION: [...] CC: Dr. George Vázquez MD; RENEE Beckett Dog Show Judge: Signed Normal [facility] D-Dimer Quantitative (DVT/PE )on 10-27-2024 D-DIMER QUANT 0.56 FEU/ug/m Invalid Interpretation Code 0.27-0.49 [facility] Comment on above: Result Comment: D-Di krissy ELEVATED (>0.49): Additional studies and clinical assessments are indicated to conclude diagnosis of: Deep Vein Thrombosis (DVT) or Pulmonary Embolism (PE) CRITICAL VALUE CALLED TO EYOUNG 10/27/24 1315 [address]. RESULTS READ BACK BY SAME. Performed By: #### L 300.8000 #### [facility] [address] [place], [address] D-dimer measurement for deep venous thrombosisOrdered By: Praveen Ruiz on 10-27-2024 D-Dimer Quantitative (PE/DVT) 0.56 FEU/ug/m High 0.27-0.49 [facility] Comment on above: D-Dimer ELEVATED (>0 .49): Additional studies and clinicalassessments are indicated to conclude diagnosis of:Deep Vein Thrombosis (DVT) or Pulmonary Embolism (PE)CRITICAL VALUE CALLED TO XYJVIG13/29/24 1315 [address] [place].RESULTS READ BACK BY SAME. Emergency Department Summary on 10-27-2024 Emergency Department Summary [facility] Medical Records Department [address] [place] [address] Emergency Department Summary 10/27/24 MR#: [id number] Acct: [id number] Name: HORACE HENDERSON Rep #: [id number] : 1955 69 From: Praveen Ruiz DO [...] pain, shortness of breath, nausea or vomiting. [facility] Medical History Essential hypertension Alcohol [...] disease), lumbar Atherosclerosis of coronary artery of [place] heart without angina pectoris Atherosclerosis of coronary [...] (more content not included)... Normal [facility] Eosinophil percentageOrdered By: John Harvey on 10-27-2024 Eosinophils/100 WBC (Bld) 0.3 % 0-5 [facility] Epithelial cells.squamous LM Ql (Urine sed)Ordered By: John Harvey on 10-27-2024 Epithelial cells.squamous LM.HPF (Urine sed) [#/Area] 0 /[HPF] 0-5 [facility] Glucose Ql (U)Ordered By: iSma Harvey on 10-27-2024 Urine Glucose (UA) Normal mg/dl Normal [facility] H AND P Exam - Hospitaliston 10-27-2024 H&P Exam - Hospitalist [facility] Medical Records Department [address] [place] [address] H P Exam - Hospitalist 10/27/24 1415 MR#: [id number] Acct: [id number] Name: HORACE HENDERSON Rep #: [id number] : 1955 69 From: Vicente Andrews DO PCP: Dr. George Vázquez MD Status:REG ER Location: ED HPI - General General Date of Admission: 10/27/24 Date of Service: 10/27/24 Chief Complaint: Syncopal episode HPI Narrative HORACE HENDERSON, is a 69 M who presented to [facility] ED on 10/27/2024 after a syncopal [...] acute distress. He was eating soup from [employer] when I saw him. Denied any acute pain or discomfort. Patient follows with [place] cardiology and notes that his sinus tachycardia has been worse recently, and he was told to increase his metoprolol dose because of this. Scheduled to see cardiology in the office in early October. Denies any lightheadedness or dizziness recently. He does have known history of COPD and follows with [place] pulmonology. He wears 2 L nasal cannula [...] No other acute concerns at this time. [facility] Medical History Essential hypertension Alcohol [...] disease), lumbar Atherosclerosis of coronary artery of [place] heart without angina pectoris Atherosclerosis of coronary [...] (more content not included)... Normal [facility] Immature granulocytes/100 WB C Auto (Bld)Ordered By: John Harvey on 10-27-2024 Immature granulocytes/100 WBC (Bld) 0.700 % 0.0-0.9 [facility] Comment on above: IG% - Immature Granu locytes (promyelocytes, myelocytes and metamyelocytes) > 1% indicates that a LEFT SHIFT is Present. Ketones Test strip Ql (U)Ord ered By: John Harvey on 10-27-2024 Ketones Ql (U) Negative Negative [facility] L501.4020on 10-27-2024 TROPONIN-I HS 14 pg/mL Normal 3.0-78.0 [facility] Comment on above: Order Comment: 'TROP ' Serial specimen #1, #2 or #3: 1 Result Comment: Aline petersen Note: New Test Units and Gender Specific Reference Ranges. For more information see Policy Stat Procedure [place] High Sensitivity Troponin (TNIH) and attachments. Performed By: #### L 300.8000 #### [facility] [address] [place], [place], [address] Lymphocytes Auto (Unsp spec) [#/Vol]Ordered By: John Harvey on 10-27-2024 Lymphocytes (Bld) [#/Vol] 1.48 10*3/uL 0.83-4.51 [facility] Lymphocytes/100 WBC Auto (Un sp spec)Ordered By: John Harvey on 10-27-2024 Lymphocytes/100 WBC (Bld) 12.9 % Low 19-41 [facility] Microscopic analysis of urin e for red blood cells (RBC)Ordered By: Johnjimi Harvey on 10-27-2024 Urine RBC 0-5 SEEN /hpf 0-5 [facility] Monocyte percentageOrdered B y: John Candice on 10-27-2024 Monocytes/100 WBC (Bld) 6.3 % 0-10 [facility] Mucus LM Ql (Urine sed)Order ed By: Johnjimi Harvey on 10-27-2024 Mucus Ql (Urine sed) 0 SEEN /hpf [facility] Neutrophil percentageOrdered By: John Harvey on 10-27-2024 Neutrophils/100 WBC (Bld) 79.5 % High 47-70 [facility] Nitrite Test strip Ql (U)Ord ered By: John Harvey on 10-27-2024 Nitrite Ql (U) Negative Negative [facility] Nucleated red blood cell per centageOrdered By: Johnjimi Harvey on 10-27-2024 Nucleated RBC/100 WBC (Bld) [Ratio] 0 % 0-5 [facility] Protein Test strip Ql (U)Ord ered By: Johnjimi Harvey on 10-27-2024 Protein Ql (U) 30 mg/dl High Negative [facility] Spine Cervical without Contr ason 10-27-2024 Spine Cervical without Contras [facility] Imaging Services [address] [place] [id number] Spine Cervical without Contras MR#: [id number] Acct: [id number] Name: HORACE HENDERSON Rep #: [id number] : 1955 M 69 From: Pablo Gross MD PCP: Dr. George Vázquez MD Status: REG ER Study: Spine Cervical without Contras Date of Exam: 12/28/23 Exam# [id number] Ordering Dr: John Harvey [id number] EXAM: CT CERVICAL SPINE WITHOUT INTRAVENOUS CONTRAST [...] CC: Dr. George Vázquez MD; RENEE Beckett Dog Show Judge: Signed Normal [facility] Troponin IOrdered By: John griggs on 10-27-2024 Troponin I High Sensitivity 14 pg/mL 3.0-78.0 [facility] Comment on above: Please Note: New Alexandra t Units and Gender Specific Reference Ranges. For more information see Policy Stat Procedure [place] High Sensitivity Troponin (TNIH) and attachments. Urinalysis, Completeon 10-27 BACTERIA 1+ /hpf Normal None Seen [facility] Comment on above: Order Comment: SUSAN CTOR TO SPECIFY Performed By: #### L 300.8000 #### [facility] [address] [place], [address] EPI,SQUAMOUS 0-5 SEEN Normal 0-5 [facility] Comment on above: Order Comment: SUSAN CTOR TO SPECIFY Performed By: #### L 300.8000 #### [facility] [address] [place], [address] RBC 0-5 SEEN Normal 0-5 [facility] Comment on above: Order Comment: SUSAN CTOR TO SPECIFY Performed By: #### L 300.8000 #### [facility] [address] [place], [address] Mucus Ql (Urine sed) 0 SEEN Normal [facility] Comment on above: Order Comment: SUSAN CTOR TO SPECIFY Performed By: #### L 300.8000 #### [facility] [address] [place], [address] WBC 0 SEEN Normal 0-5 [facility] Comment on above: Order Comment: SUSAN CTOR TO SPECIFY Performed By: #### L 300.8000 #### [facility] [address] [place], [address] Urine blood detectionOrdered By: John Harvey on 10-27-2024 Urine Occult Blood 50 /ul High Negative [facility] Urine clarityOrdered By: Celia Harvey on 10-27-2024 Clarity (U) Clear Clear [facility] Urine color determinationOrd ered By: John Harvey on 10-27-2024 Color (U) Yellow Yellow [facility] Urine leukocyte esterase det ection by dipstickOrdered By: John Harvey on 10-27-2024 Leukocyte esterase Test strip Ql (U) Negative Negative [facility] Urine pHOrdered By: John rivas on 10-27-2024 pH (U) 7.0 [pH] 5.0 - 8.0 [facility] Urine sediment bacteria coun t by microscopy (number/high power field)Ordered By: John Candice on 10-27-2024 Bacteria LM.HPF (Urine sed) [#/Area] 1 /[HPF] None Seen [facility] Urine specific gravity measu rementOrdered By: John Harvey on 10-27-2024 Specific gravity (U) [Rel density] 1.005 1.002-1.030 [facility] Urobilinogen Ql (U)Ordered B y: John Harvey on 10-27-2024 Urine Urobilinogen Normal mg/dl Normal [facility] White blood cell countOrdere d By: John Harvey on 10-27-2024 Urine WBC 0 SEEN /hpf 0-5 [facility] CNPNon 09-18-2024 CNPN Telephone (INTMWS) -------- HORACE HENDERSON ([id number]) 1955 M Date Time Provider Department 09/18/24 GEORGE VÁZQUEZ INTWS During your visit today, we recorded the following information about you: Debbie Portillo RN 09/18/2024 2:35 PM Signed Patient calling for referral to see a new Patient Observer for COPD. Dr. Orellana. . He was seeing Dr. Hall who is no longer @ [facility]. TOMMIE Dennis Victor H, MD 09/18/2024 3:01 [...] lung CT) [R91.1] Order(s):CONSULT TO PULMONARY MEDICINE [[id number]] Order #: [id number]: 1 Prescriptions as of 09/18/2024 - nystatin [...] Status:Closed by EVELIN RICHEY on 09/18/24 Normal [facility] 12 Lead EKGon 09-17-2024 12 Lead EKG [facility] Cardiovascular Services [address] [place] [address] 12 Lead EKG 09/17/24 1625 MR#: [id number] Acct: [id number] Name: HORACE HENDERSON Rep #: [id number] : 1955 69 From: Tomy Hanks MD [...] ECG Confirmed by LATONYA LOPEZ, TOMY ([id number]), editor & co founder KEIRY URBANO ([id number]) on 09/18/2024 8:18:58 AM Referred By: Confirmed By: TOMY HANKS MD 09/18/24 0818 Date Tomy Hanks MD CC: Dr. Francisco Murillo MD; Dr. George Vázquez MD Signed Normal [facility] Absolute neutrophil countOrd ered By: Francisco Murillo on 09-17-2024 Neutrophils (Bld) [#/Vol] 4.5 10*3/uL 2.0-7.7 [facility] Basic Metabolic Profile (BMP )on 09-17-2024 BUN/CRE 10.5 RATIO Normal 08-18 [facility] Comment on above: Order Comment: 'TROP ' Serial specimen #1, #2 or #3: 1 Performed By: #### L 500.2500, L501.4020, L100.0100 ####[facility] [address] [place], [address] CA,Total 9.9 mg/dL Normal 8.5-10.1 [facility] Comment on above: Order Comment: 'TROP ' Serial specimen #1, #2 or #3: 1 Performed By: #### L 500.2500, L501.4020, L100.0100 ####[facility] [address] [place], [address] Chloride [Moles/Vol] 103 mmol/L Normal 98-107 [facility] Comment on above: Order Comment: 'TROP ' Serial specimen #1, #2 or #3: 1 Performed By: #### L 500.2500, L501.4020, L100.0100 ####[facility] [address] [place], [address] CO2 [Moles/Vol] 28.0 mmol/L Normal 21.0-32.0 [facility] Comment on above: Order Comment: 'TROP ' Serial specimen #1, #2 or #3: 1 Performed By: #### L 500.2500, L501.4020, L100.0100 ####[facility] [address] [place], [address] Creatinine [Mass/Vol] 1.52 mg/dL High 0.70-1.30 [facility] Comment on above: Order Comment: 'TROP ' Serial specimen #1, #2 or #3: 1 Result Comment: The validity of the calculated GFR GFRAA in patients over 70 years has not been determined. Clinical correlation is essential. Performed By: #### L 500.2500, L501.4020, L100.0100 ####[facility] [address] [place], [address] ECRCL 46.14 ml/min Normal [facility] Comment on above: Order Comment: 'TROP ' Serial specimen #1, #2 or #3: 1 Performed By: #### L 500.2500, L501.4020, L100.0100 ####[facility] [address] [place], [address] EST GFR - AA 59 mL/min Low >60 [facility] Comment on above: Order Comment: 'TROP ' Serial specimen #1, #2 or #3: 1 Result Comment: Afri can [place] GFR Calc Performed By: #### L 500.2500, L501.4020, L100.0100 ####[facility] [address] [place], [address] GAP 6 Normal 5-15 [facility] Comment on above: Order Comment: 'TROP ' Serial specimen #1, #2 or #3: 1 Performed By: #### L 500.2500, L501.4020, L100.0100 ####[facility] [address] [place], [address] GFR/1.73 sq M.predicted among non-blacks MDRD (S/P/Bld) [Vol rate/Area] 48 mL/min/{1.73_m2} Low >60 [facility] Comment on above: Order Comment: 'TROP ' Serial specimen #1, #2 or #3: 1 Result Comment: Non- GFR Calc Performed By: #### L 500.2500, L501.4020, L100.0100 ####[facility] [address] [place], [address] Glucose [Mass/Vol] 117 mg/dL High 74-[address] [facility] Comment on above: Order Comment: 'TROP ' Serial specimen #1, #2 or #3: 1 Result Comment: Fast ing Glucose result from 100 to 125 mg/dL suggests IMPAIRED HOMEOSTASIS per A.D.A. criteria. Performed By: #### L 500.2500, L501.4020, L100.0100 ####[facility] [address] [place], [address] Potassium [Moles/Vol] 3.7 mmol/L Normal 3.5-5.1 [facility] Comment on above: Order Comment: 'TROP ' Serial specimen #1, #2 or #3: 1 Performed By: #### L 500.2500, L501.4020, L100.0100 ####[facility] [address] [place], [address] Sodium [Moles/Vol] 137 mmol/L Normal 136-[address] [facility] Comment on above: Order Comment: 'TROP ' Serial specimen #1, #2 or #3: 1 Performed By: #### L 500.2500, L501.4020, L100.0100 ####[facility] [address] [place], [address] Urea nitrogen [Mass/Vol] 16 mg/dL Normal 7-18 [facility] Comment on above: Order Comment: 'TROP ' Serial specimen #1, #2 or #3: 1 Performed By: #### L 500.2500, L501.4020, L100.0100 ####[facility] [address] [place], [address] Basophil percentageOrdered B y: Francisco Murillo on 09-17-2024 Basophils/100 WBC (Bld) 0.8 % 0-1 [facility] Blood urea nitrogen (BUN)/cr eatinine ratioOrdered By: Francisco Murillo on 09-17-2024 Urea nitrogen/Creatinine [Mass ratio] 10.5 mg/mg 10-20 [facility] CBC W/Diff, Automatedon 08-30 Absolute Lymph 1.40 X10 3/uL Normal 0.83-4.51 [facility] Comment on above: Performed By: #### L 300.8000 #### [facility] [address] [place], [address] Absolute Neut 4.5 X10 3/uL Normal 2.0-7.7 [facility] Comment on above: Performed By: #### L 300.8000 #### [facility] [address] [place], [address] Basophils/100 WBC (Bld) 0.8 % Normal 0-1 [facility] Comment on above: Performed By: #### L 300.8000 #### [facility] [address] [place], [address] Eosinophils/100 WBC (Bld) 1.7 % Normal 0-5 [facility] Comment on above: Performed By: #### L 300.8000 #### [facility] [address] [place], [address] Erythrocyte distribution width (RBC) [Ratio] 13.2 % Normal 11.6-14.6 [facility] Comment on above: Performed By: #### L 300.8000 #### [facility] [address] [place], [address] Hematocrit (Bld) [Volume fraction] 46.7 % Normal 40-54 [facility] Comment on above: Performed By: #### L 300.8000 #### [facility] [address] [place], [address] Hemoglobin (Bld) [Mass/Vol] 16.0 g/dL Normal 13.0-16.5 [facility] Comment on above: Performed By: #### L 300.8000 #### [facility] [address] [place], [address] IG% 0.200 Normal 0.0-0.9 [facility] Comment on above: Result Comment: IG% - Immature Granulocytes (promyelocytes, myelocytes and metamyelocytes) > 1% indicates that a LEFT SHIFT is Present. Performed By: #### L 300.8000 #### [facility] [address] [place], [address] Lymphocytes/100 WBC (Bld) 21.4 % Normal 19-41 [facility] Comment on above: Performed By: #### L 300.8000 #### [facility] [address] [place], [address] MCH (RBC) [Entitic mass] 32.6 pg High 27.0-32.0 [facility] Comment on above: Performed By: #### L 300.8000 #### [facility] [address] [place], [address] MCHC (RBC) [Mass/Vol] 34.3 g/dL Normal 32-36 [facility] Comment on above: Performed By: #### L 300.8000 #### [facility] [address] [place], [address] MCV (RBC) [Entitic vol] 95.1 fL High 80-94 [facility] Comment on above: Performed By: #### L 300.8000 #### [facility] [address] [place], [address] Monocytes/100 WBC (Bld) 7.2 % Normal 0-10 [facility] Comment on above: Performed By: #### L 300.8000 #### [facility] [address] [place], [address] Neutrophils/100 WBC (Bld) 68.7 % Normal 47-70 [facility] Comment on above: Performed By: #### L 300.8000 #### [facility] [address] [place], [address] Nucleated RBC (Bld) [#/Vol] 0 10*3/uL Normal 0-5 [facility] Comment on above: Performed By: #### L 300.8000 #### [facility] [address] [place], [address] Platelet mean volume (Bld) [Entitic vol] 9.4 fL Normal 6.2-12.0 [facility] Comment on above: Performed By: #### L 300.8000 #### [facility] [address] [place], [address] Platelets (Bld) [#/Vol] 166 10*3/uL Normal 150-450 [facility] Comment on above: Performed By: #### L 300.8000 #### [facility] [address] [place], [address] RBC (Bld) [#/Vol] 4.91 10*6/uL Normal 4.6-6.2 [facility] Comment on above: Performed By: #### L 300.8000 #### [facility] [address] [place], [address] RDW SD 46.5 fl High 35.1-43.9 [facility] Comment on above: Performed By: #### L 300.8000 #### [facility] [address] [place], [address] WBC (Bld) [#/Vol] 6.5 10*3/uL Normal 4.4-11.[address] [facility] Comment on above: Performed By: #### L 300.8000 #### [facility] [address] [place], [address] Absolute Neut Normal 2.0-7.7 [facility] Comment on above: Result Comment: This specimen has been REJECTED due to Laboratory criteria: Clotted. ELSA CARRERO has been notified of need of recollection. 09/17/24 173 Berna Munoz Performed By: #### L 500.2500, L501.4020, L100.0100 ####[facility] [address] [place], [address] HCT Normal 40-54 [facility] Comment on above: Result Comment: This specimen has been REJECTED due to Laboratory criteria: Clotted. ELSA CARRERO has been notified of need of recollection. 09/17/241729 Berna Wolfhope Performed By: #### L 500.2500, L501.4020, L100.0100 ####[facility] [address] [place], [address] HGB Normal 13.0-16.5 [facility] Comment on above: Result Comment: This specimen has been REJECTED due to Laboratory criteria: Clotted. ELSA CARRERO has been notified of need of recollection. 09/17/241729 Berna Wolfhope Performed By: #### L 500.2500, L501.4020, L100.0100 ####[facility] [address] [place], [address] MCH Normal 27.0-32.0 [facility] Comment on above: Result Comment: This specimen has been REJECTED due to Laboratory criteria: Clotted. ELSA CARRERO has been notified of need of recollection. 09/17/241729 Berna Wolfhope Performed By: #### L 500.2500, L501.4020, L100.0100 ####[facility] [address] [place], [address] MCHC Normal 32-36 [facility] Comment on above: Result Comment: This specimen has been REJECTED due to Laboratory criteria: Clotted. ELSA CARRERO has been notified of need of recollection. 09/17/241729 Berna Wolfhope Performed By: #### L 500.2500, L501.4020, L100.0100 ####[facility] [address] [place], [address] MCV Normal 80-94 [facility] Comment on above: Result Comment: This specimen has been REJECTED due to Laboratory criteria: Clotted. ELSA CARRERO has been notified of need of recollection. 09/17/241729 Berna Wolfhope Performed By: #### L 500.2500, L501.4020, L100.0100 ####[facility] [address] [place], [address] NEUT% Normal 47-70 [facility] Comment on above: Result Comment: This specimen has been REJECTED due to Laboratory criteria: Clotted. ELSA CARRERO has been notified of need of recollection. 09/17/241729 Berna Garciae Performed By: #### L 500.2500, L501.4020, L100.0100 ####[facility] [address] [place], [address] PLT Normal 150-450 [facility] Comment on above: Result Comment: This specimen has been REJECTED due to Laboratory criteria: Clotted. ELSA TAPIADEANDRE has been notified of need of recollection. 09/17/241729 Berna Garciae Performed By: #### L 500.2500, L501.4020, L100.0100 ####[facility] [address] [place], [address] RBC Normal 4.6-6.2 [facility] Comment on above: Result Comment: This specimen has been REJECTED due to Laboratory criteria: Clotted. ELSA TAPIADEANDRE has been notified of need of recollection. 09/17/241729 Berna Shenhope Performed By: #### L 500.2500, L501.4020, L100.0100 ####[facility] [address] [place], [address] RDW CV Normal 11.6-14.6 [facility] Comment on above: Result Comment: This specimen has been REJECTED due to Laboratory criteria: Clotted. ELSA ANSHUMATHEUSDEANDRE has been notified of need of recollection. 09/17/241729 Berna Wolfhope Performed By: #### L 500.2500, L501.4020, L100.0100 ####[facility] [address] [place], [address] RDW SD Normal 35.1-43.9 [facility] Comment on above: Result Comment: This specimen has been REJECTED due to Laboratory criteria: Clotted. ELSA CARRERO has been notified of need of recollection. 09/17/24 1730 Berna Garciae Performed By: #### L 500.2500, L501.4020, L100.0100 ####[facility] [address] [place], [address] WBC Normal 4.4-11.0 [facility] Comment on above: Result Comment: This specimen has been REJECTED due to Laboratory criteria: Clotted. ELSA CARRERO has been notified of need of recollection. 09/17/24 1730 Berna Garciae Performed By: #### L 500.2500, L501.4020, L100.0100 ####[facility] [address] [place], [address] Carbon dioxide measurementOr dered By: Francisco Murillo on 09-17-2024 CO2 [Moles/Vol] 28.0 mmol/L 21.0-32.0 [facility] Chest PA and Lateralon 09-17 Chest PA and Lateral [facility] Imaging Services [address] [place] [address] Chest PA and Lateral MR#: [id number] Acct: [id number] Name: HORACE HENDERSON Rep #: [id number] : 1955 M 69 From: Prateek Garcia MD PCP: Dr. George Vázquez MD Status: REG ER Study: Chest PA and Lateral Date of Exam: 09/17/24 Exam# [id number] Ordering Dr: Francisco Murillo MD [id number] STUDY: X-RAY CHEST REASON FOR EXAM: Male, [...] Francisco Murillo MD; Dr. George Vázquez MD Dog Show Judge: Signed Normal [facility] Chloride measurementOrdered By: Francisco Murillo on 09-17-2024 Chloride [Moles/Vol] 103 mmol/L 98-107 [facility] Emergency Department Summary on 09-17-2024 Emergency Department Summary [facility] Medical Records Department [address] [place] [address] Emergency Department Summary 09/17/24 MR#: [id number] Acct: [id number] Name: HORACE HENDERSON Rep #: [id number] : 1955 69 From: Francisco Murillo MD [...] disease), lumbar Atherosclerosis of coronary artery of [place] heart without angina pectoris Atherosclerosis of coronary [...] (more content not included)... Normal [facility] Eosinophil percentageOrdered By: Francisco Murillo on 09-17-2024 Eosinophils/100 WBC (Bld) 1.7 % 0-5 [facility] Erythrocyte distribution wid th ratioOrdered By: Francisco Murillo on 09-17-2024 Erythrocyte distribution width (RBC) [Ratio] 13.2 % 11.6-14.6 [facility] Erythrocyte distribution wid th standard deviationOrdered By: Francisco Murillo on 09-17-2024 Erythrocyte distribution width (RBC) [Entitic vol] 46.5 fL High 35.1-43.9 [facility] Estimated glomerular filtrat ion rate (GFR) AmericanOrdered By: Francisco Murillo on 09-17-2024 Estimated GFR (MDRD) Amer 59 mL/min Low >60 [facility] Comment on above: GFR Calc Estimation of creatinine rosi aranceOrdered By: Francisco Murillo on 09-17-2024 Estimated Creatinine Clearance Calc 46.14 ml/min [facility] Glomerular filtration rate ( GFR) estimationOrdered By: Francisco Murillo on 09-17-2024 Estimated GFR (MDRD) Non-Af Amer 48 mL/min Low >60 [facility] Comment on above: Non- GFR Calc Glucose measurementOrdered B y: Francisco Murillo on 09-17-2024 Glucose [Mass/Vol] 117 mg/dL High 74-[address] [facility] Comment on above: Fasting Glucose resu lt from 100 to 125 mg/dL suggests IMPAIRED HOMEOSTASIS per A.D.A. criteria. Hematocrit Auto (Bld) [Volum e fraction]Ordered By: Francisco Murillo on 09-17-2024 Hematocrit (Bld) [Volume fraction] 46.7 % 40-54 [facility] Hemoglobin measurementOrdere d By: Francisco Murillo on 09-17-2024 Hemoglobin (Bld) [Mass/Vol] 16.0 g/dL 13.0-16.5 [facility] Immature granulocytes/100 WB C Auto (Bld)Ordered By: Francisco Murillo on 09-17-2024 Immature granulocytes/100 WBC (Bld) 0.200 % 0.0-0.9 [facility] Comment on above: IG% - Immature Granu locytes (promyelocytes, myelocytes and metamyelocytes) > 1% indicates that a LEFT SHIFT is Present. L501.4020on 09-17-2024 TROPONIN-I HS 9 pg/mL Normal 3.0-78.0 [facility] Comment on above: Order Comment: 'TROP ' Serial specimen #1, #2 or #3: 1 Result Comment: Aline petersen Note: New Test Units and Gender Specific Reference Ranges. For more information see Policy Stat Procedure [place] High Sensitivity Troponin (TNIH) and attachments. Performed By: #### L 500.2500, L501.4020, L100.0100 ####[facility] [address] [place], [address] Lymphocytes Auto (Unsp spec) [#/Vol]Ordered By: Francisco Murillo on 09-17-2024 Lymphocytes (Bld) [#/Vol] 1.40 10*3/uL 0.83-4.51 [facility] Lymphocytes/100 WBC Auto (Un sp spec)Ordered By: Francisco Murillo on 09-17-2024 Lymphocytes/100 WBC (Bld) 21.4 % 19-41 [facility] MCV (mean corpuscular volume ) determinationOrdered By: Francisco Murillo on 09-17-2024 MCV (RBC) [Entitic vol] 95.1 fL High 80-94 [facility] Mean corpuscular hemoglobin (MCH) determinationOrdered By: Francisco Murillo on 09-17-2024 MCH (RBC) [Entitic mass] 32.6 pg High 27.0-32.0 [facility] Mean corpuscular hemoglobin concentration (MCHC) determinationOrdered By: Francisco Murillo on 09-17-2024 MCHC (RBC) [Mass/Vol] 34.3 g/dL 32-36 [facility] Mean platelet volume determi nationOrdered By: Francisco Murillo on 09-17-2024 Platelet mean volume (Bld) [Entitic vol] 9.4 fL 6.2-12.0 [facility] Monocyte percentageOrdered B y: Francisco Murillo on 09-17-2024 Monocytes/100 WBC (Bld) 7.2 % 0-10 [facility] Neutrophil percentageOrdered By: Francisco Murillo on 09-17-2024 Neutrophils/100 WBC (Bld) 68.7 % 47-70 [facility] Nucleated red blood cell per centageOrdered By: Francisco Murillo on 09-17-2024 Nucleated RBC/100 WBC (Bld) [Ratio] 0 % 0-5 [facility] Platelet countOrdered By: Jose Murillo on 09-17-2024 Platelets (Bld) [#/Vol] 166 10*3/uL 150-450 [facility] Potassium measurementOrdered By: Francisco Murillo on 09-17-2024 Potassium [Moles/Vol] 3.7 mmol/L 3.5-5.1 [facility] RBC Auto (Bld) [#/Vol]Ordere d By: Francisco Murillo on 09-17-2024 RBC (Bld) [#/Vol] 4.91 10*6/uL 4.6-6.2 [facility] Serum anion gap measurementO rdered By: Francisco Murillo on 09-17-2024 Anion gap [Moles/Vol] 6 mmol/L 5-15 [facility] Serum or plasma calcium jimbo urement (mass/volume)Ordered By: Francisco Murlilo on 09-17-2024 Calcium [Mass/Vol] 9.9 mg/dL 8.5-10.[address] [facility] Serum or plasma creatinine m easurement (mass/volume)Ordered By: Francisco Murillo on 09-17-2024 Creatinine [Mass/Vol] 1.52 mg/dL High 0.70-1.30 [facility] Comment on above: The validity of the calculated GFR & GFRAA in patients over 70 years has not been determined. Clinical correlation is essential. Serum or plasma urea nitroge n measurement (mass/volume)Ordered By: Francisco Murillo on 09-17-2024 Urea nitrogen [Mass/Vol] 16 mg/dL 7-18 [facility] Sodium levelOrdered By: Francisco Murillo on 09-17-2024 Sodium [Moles/Vol] 137 mmol/L 136-[address] [facility] Troponin IOrdered By: Francisco yoon on 09-17-2024 Troponin I High Sensitivity 9 pg/mL 3.0-78.0 [facility] Comment on above: Please Note: New Alexandra t Units and Gender Specific Reference Ranges. For more information see Policy Stat Procedure Bluebell High Sensitivity Troponin (TNIH) and attachments. White blood cell (WBC) count Ordered By: Francisco Murillo on 09-17-2024 WBC (Bld) [#/Vol] 6.5 10*3/uL 4.4-11.[address] [facility] Basic metabolic 2000 panelon 09-12-2024 Anion gap [Moles/Vol] 12 mmol/L Normal 8-15 [facility] Comment on above: Order Comment: Speci men Type: BLOOD SPECIMEN Ordering Facility: [facility] Address: [address] [place] [address] Performed By: #### 3 1972-6, 41238-6 #### [facility] CLIA [id number] [address] [place] [address] [place] Calcium [Mass/Vol] 9.8 mg/dL Normal 8.5-10.2 [facility] Comment on above: Order Comment: Speci men Type: BLOOD SPECIMEN Ordering Facility: [facility] Address: [address] [place] [address] Performed By: #### 3 3762-6, 18928-6 #### [facility] CLIA [id number] [address] [place] [address] [place] Chloride [Moles/Vol] 99 mmol/L Normal 98-107 [facility] Comment on above: Order Comment: Speci men Type: BLOOD SPECIMEN Ordering Facility: [facility] Address: [address] [place] [address] Performed By: #### 3 3762-6, 98967-2 #### [facility] CLIA [id number] [address] [place] [address] [place] CO2 [Moles/Vol] 27 mmol/L Normal 22-30 [facility] Comment on above: Order Comment: Speci men Type: BLOOD SPECIMEN Ordering Facility: [facility] Address: [address] [place] [address] Performed By: #### 3 3762-6, 97894-7 #### [facility] CLIA [id number] [address] [place], [place] [id number] [place] Creatinine [Mass/Vol] 1.23 mg/dL High 0.73-1.22 [facility] Comment on above: Order Comment: Speci men Type: BLOOD SPECIMEN Ordering Facility: [facility] Address: [address] [place] [address] Performed By: #### 3 3762-6, 75650-5 #### [facility] CLIA [id number] [address] [place], [place] [address] [place] Creatinine and Glomerular filtration rate.predicted panel (S/P/Bld) 63 mL/min/1.73m??? Normal >=60 [facility] Comment on above: Order Comment: Ashly oakley Type: BLOOD SPECIMEN Ordering Facility: [facility] Address: [address] [place] [address] Result Comment: Shelli mated Glomerular Filtration Rate [...] actual GFR. Performed By: #### 3 3762-6, 79072-6 #### [facility] CLIA [id number] [address] [place] [address] [place] Glucose [Mass/Vol] 100 mg/dL High 74-99 [facility] Comment on above: Order Comment: Ashly oakley Type: BLOOD SPECIMEN Ordering Facility: [facility] Address: [address] [place] [address] Result Comment: The [place] Diabetes Association (ADA) provides guidance for cutoff [...] Standards of Medical Care in Diabetes 2016, [place] Diabetes Association. Diabetes Care. 2016.39(Suppl 1). Performed By: #### 3 3762-6, 63166-3 #### [facility] CLIA [id number] [address] [place] [address] [place] Potassium [Moles/Vol] 4.1 mmol/L Normal 3.7-5.1 [facility] Comment on above: Order Comment: Speci men Type: BLOOD SPECIMEN Ordering Facility: [facility] Address: [address] [place] [address] Performed By: #### 3 3762-6, 32886-3 #### [facility] CLIA [id number] [address] [place] [address] [place] Sodium [Moles/Vol] 138 mmol/L Normal 136-144 [facility] Comment on above: Order Comment: Speci men Type: BLOOD SPECIMEN Ordering Facility: [facility] Address: [address] [place] [address] Performed By: #### 3 3762-6, 11583-4 #### [facility] CLIA [id number] [address] [place] [address] [place] Urea nitrogen [Mass/Vol] 23 mg/dL Normal 9-24 [facility] Comment on above: Order Comment: Speci men Type: BLOOD SPECIMEN Ordering Facility: [facility] Address: [address] [place] [address] Performed By: #### 3 3762-6, 08492-1 #### [facility] CLIA [id number] [address] [place] [address] [place] CBC panel Auto (Bld)on 09-12 Erythrocyte distribution width (RBC) [Ratio] 13.2 % Normal 11.5-15.0 [facility] Comment on above: Order Comment: Speci men Type: BLOOD SPECIMENOrdering Facility: [facility] Address: [address] [place] [address] Performed By: #### 5 8410-2 ####[facility] [id number] [place] [address] [place] Hematocrit (Bld) [Volume fraction] 48.4 % Normal 39.0-51.0 [facility] Comment on above: Order Comment: Speci men Type: BLOOD SPECIMENOrdering Facility: [facility] Address: [address] [place] [address] Performed By: #### 5 8410-2 ####[facility] [id number] [place] [address] [place] Hemoglobin (Bld) [Mass/Vol] 16.5 g/dL Normal 13.0-17.0 [facility] Comment on above: Order Comment: Speci men Type: BLOOD SPECIMENOrdering Facility: [facility] Address: [address] [place] [address] Performed By: #### 5 8410-2 ####[facility] [id number] [place] [address] [place] MCH (RBC) [Entitic mass] 32.1 pg Normal 26.0-34.0 [facility] Comment on above: Order Comment: Speci men Type: BLOOD SPECIMENOrdering Facility: [facility] Address: [address] [place] [address] Performed By: #### 5 8410-2 ####[facility] [id number] [place] [address] [place] MCHC (RBC) [Mass/Vol] 34.1 g/dL Normal 30.5-36.0 [facility] Comment on above: Order Comment: Speci men Type: BLOOD SPECIMENOrdering Facility: [facility] Address: [address] [place] [address] Performed By: #### 5 8410-2 ####[facility] [id number] [place] [address] [place] MCV (RBC) [Entitic vol] 94.2 fL Normal 80.0-100.0 [facility] Comment on above: Order Comment: Speci men Type: BLOOD SPECIMENOrdering Facility: [facility] Address: [address] [place] [address] Performed By: #### 5 8410-2 ####[facility] [id number] [place] [address] [place] Nucleated RBC (Bld) [#/Vol] 10*3/uL Normal <0.01 [facility] Comment on above: Order Comment: Speci men Type: BLOOD SPECIMENOrdering Facility: [facility] Address: [address] [place] [address] Performed By: #### 5 8410-2 ####[facility] [id number] [place] [address] [place] Platelet mean volume (Bld) [Entitic vol] 9.4 fL Normal 9.0-12.7 [facility] Comment on above: Order Comment: Speci men Type: BLOOD SPECIMENOrdering Facility: [facility] Address: [address] [place] [address] Performed By: #### 5 8410-2 ####[facility] [id number] [place] [address] [place] Platelets (Bld) [#/Vol] 163 10*3/uL Normal 150-400 [facility] Comment on above: Order Comment: Speci men Type: BLOOD SPECIMENOrdering Facility: [facility] Address: [address] [place] [address] Performed By: #### 5 8410-2 ####[facility] [id number] [place] [address] [place] RBC (Bld) [#/Vol] 5.14 10*6/uL Normal 4.20-6.00 [facility] Comment on above: Order Comment: Speci men Type: BLOOD SPECIMENOrdering Facility: [facility] Address: [address] [place] [address] Performed By: #### 5 8410-2 ####[facility] [id number] [place] [address] [place] WBC (Bld) [#/Vol] 10.46 10*3/uL Normal 3.70-11.00 [facility] Comment on above: Order Comment: Speci men Type: BLOOD SPECIMENOrdering Facility: [facility] Address: [address] [place] [address] Performed By: #### 5 8410-2 ####[facility] [id number] [id number] OF [facility] CNOVon 09-12-2024 CNOV Office Visit (INTMWS ) -------- HORACE HENDERSON ([id number]) 1955 Date Time Provider Department 09/12/24 4:20 PM GEORGE VÁZQUEZ INTMWS During your visit today, we recorded the following information about you: Temperature Pulse Respiration Blood pressure 98.9 degrees 130/minute 28/minute 134/84 Weight 82.2 kg George Vázquez MD 09/12/2024 4:57 PM Signed This note was created using [employer]ge[employer]. Subjective Horace Henderson is a 69 year old male. I saw him for COPD exacerbation one week ago, and he was seen in the week before that. He continues to feel vaguely ill. His heart rate has been staying elevated when he checked his oximetry at home. 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 (more content not included)... Normal [facility] ECG COMPLETEon 09-12-2024 ECG COMPLETE Ventricular Rate : 1 17 BPM Atrial Rate : 117 BPM P-R Interval : 136 ms QRS Duration : 128 ms Q-T Interval : 334 ms QTC Calculation(Bazett) : 465 ms Calculated P Charlotte : 77 degrees Calculated R Charlotte : -76 degrees Calculated T Charlotte : 78 degrees SINUS TACHYCARDIA WITH PREMATURE ATRIAL COMPLEXES LEFT AXIS DEVIATION COMPLETE RIGHT BUNDLE BRANCH BLOCK ABNORMAL ECG Confirmed by MD BECK GREGORY () on 09/13/2024 10:20:58 AM NAME : HROACE HENDERSON PID : [id number] : 1955 Gender : Male Race : ORD : [id number] Procedure Date : Sep 12 2024 16:39:35 Edit Date : Sep 13 2024 10:21:00 Diagnosis: SINUS TACHYCARDIA WITH PREMATURE ATRIAL COMPLEXES LEFT AXIS DEVIATION COMPLETE RIGHT BUNDLE BRANCH BLOCK ABNORMAL ECG Confirmed by MD BECK GREGORY () on 09/13/2024 10:20:58 AM Test Reason : I25.10 Coronary artery disease involving [place] coronary artery of [place] heart Location : 185 : WO Overread By : MD BECK GREGORY Edited By : MD BECK GREGORY Referred By : , Acquired by : Iris cihn [facility] NT-proBNP [facility] 09-12 Natriuretic peptide.B prohormone N-Terminal [Mass/Vol] 153 pg/mL High <125 [facility] Comment on above: Order Comment: Speci men Type: BLOOD SPECIMEN Ordering Facility: [facility] Address: [address] [place] [address] Performed By: #### 3 3762-6, 21589-5 #### [facility] CLIA [id number] [address] [place] [address] OF [facility] CNOVon 09-04-2024 CNOV Office Visit (INTMWS ) -------- HORACE HENDERSON ([id number]) 1955 M Date Time Provider Department 09/04/24 [...] lower leg (more content not included)... [facility] HORACE HENDERSON ([id number]) 1955 Date Time Provider Department 09/04/24 GEORGE [...] uses [facility]. Please advise. Blanca Tilley APRN.EQUIPMENT PLANNER 09/04/2024 1:54 PM Signed Needs appointment Blanca Tilley APRN.Evelin Arthur LPN 09/04/2024 2:33 PM Signed Patient notified, appt scheduled. Evelin Richey LPN Allergies As of Date: 09/04/2024 Noted Allergy Reaction LEVOFLOXACIN 06/01/2020 14 - Other: See Comments Comments: Tachycardia. Achilles tendonitis. Date Reviewed: 08/30/2024 Reviewed by: Prateek Matos APRN.EQUIPMENT PLANNER - Fully Assessed Reason for Visit: Patient [...] Status:Closed by EVELIN RICHEY on 09/04/24 Normal [facility] XR Chest PA and Lateralon IMPRESSION: No acute radiographic abnormality. Dog Show Judge: TIMOTEO Transcribe Date/Time: Aug 30 2024 12:01P Dictated by : JULISA DAVIS MD This examination was interpreted and the report reviewed and electronically signed by: JULISA DAVIS MD on Aug 30 2024 12:04PM [facility] DIVISION OF RADIOLOGY * * [...] OF RADIOLOGY Provider, Bria Desire [facility] - 08/30/2024 * * *Final Report* * [...] spine. IMPRESSION IMPRESSION: No acute radiographic abnormality. Dog Show Judge: TIMOTEO Transcribe Date/Time: Aug 30 2024 12:01P Dictated by : JULISA DAVIS MD This examination was interpreted and the report reviewed and electronically signed by: JULISA DAVIS MD on Aug 30 2024 12:04PM [facility] Radiology Study observation (narrative) [facility] XR Chest PA and LateralOrder ed By: [facility] Provider on 08-30-2024 [facility] XR Chest PA and Lateralon IMPRESSION: Overall findings unchanged. Dog Show Judge: PSCB Transcribe Date/Time: Oct 18 2023 8:22A Dictated by : ALLIE LEA MD This examination was interpreted and the report reviewed and electronically signed by: ALLIE LEA MD on Oct 18 2023 8:25AM [facility] DIVISION OF RADIOLOGY * * [...] shows degenerative changes. DIVISION OF RADIOLOGY Provider, [facility] - 10/18/2023 * * *Final Report* * [...] degenerative changes. IMPRESSION IMPRESSION: Overall findings unchanged. Dog Show Judge: TIMOTEO Transcribe Date/Time: Oct 18 2023 8:22A Dictated by : ALLIE LEA MD This examination was interpreted and the report reviewed and electronically signed by: ALLIE LEA MD on Oct 18 2023 8:25AM EST [facility] Radiology Study observation (narrative) [facility] XR Chest PA and LateralOrder ed By: Cc Provider on 10-18-2023 [facility] Gram stain for investigation of transfusion reactionOrdered By: Radha Roberts on 08-11-2023 Microscopic observation Gram stain Nom (Unsp spec) [facility] Microbial respiratory cultur eOrdered By: Radha Roberts on 08-11-2023 Bacteria identified Respiratory culture Nom (Unsp spec) or Staphylococcus aureus isolated. [facility] Basophil percentageOrdered B y: Amada Mahoney on 08-07-2023 Creatinine [Mass/Vol] 1.1 mg/dL 0.70-1.30 [facility] No Panel InformationOrdered By: Amada Mahoney on 08-07-2023 Bedside Estimated GFR (eGFR) > 60.0000 mL/min >60 [facility] Basophil percentageOrdered B y: Gloria Cochran on 08-04-2023 Bilirubin [Mass/Vol] 0.70 mg/dL 0.20-1.00 [facility] Comment on above: For patients on eltr ombopag therapy, use of Dimension Bluebell TBIL is not recommended. Cholesterol [Mass/Vol] 159 mg/dL <200 [facility] Comment on above: <200 mg/dL Desirable 200-240 mg/dL Borderline >240 mg/dL High Risk Protein [Mass/Vol] 7.2 g/dL 6.4-8.[address] [facility] Triglyceride [Mass/Vol] 150 mg/dL <199 [facility] Comment on above: The drugs N-Acetylcy steine and Metamizole may falsely depress this assay.Serum Triglycerides Reference Interval Normal <150 mg/dL Borderline high 150 - 199 mg/dL High 200 - 499 mg/dL Very High > or = 500 mg/dL Direct bilirubinOrdered By: Gloria Cochran on 08-04-2023 Bilirubin.direct [Mass/Vol] 0.20 mg/dL 0.00-0.30 [facility] Gram stain for investigation of transfusion reactionOrdered By: Radha Roberts on 08-04-2023 Microscopic observation Gram stain Nom (Unsp spec) [facility] Laboratory - Chemistry and C hemistry - challengeOrdered By: Gloria Cochran on 08-04-2023 ALP [Catalytic activity/Vol] 85 U/L 45-117 [facility] ALT [Catalytic activity/Vol] 30 U/L 16-61 [facility] Globulin (S) [Mass/Vol] 3.5 g/dL 2.2-4.2 [facility] Microbial respiratory cultur eOrdered By: Radha Roberts on 08-04-2023 Bacteria identified Respiratory culture Nom (Unsp spec) or Staphylococcus aureus isolated. [facility] Serum or plasma albumin jimbo urement (mass/volume)Ordered By: Gloria Cochran on 08-04-2023 Albumin [Mass/Vol] 3.7 g/dL 3.2-5.[address] [facility] Serum or plasma cholesterol in HDL measurement (mass/volume)Ordered By: Gloria Cochran on 08-04-2023 Cholesterol in HDL [Mass/Vol] 75 mg/dL >40 [facility] Comment on above: The drugs N-Acetylcy steine and Metamizole may falsely depress this assay. Reference Range HDL <40 mg/dL Low HDL Cholesterol HDL >or= 60 mg/dL High HDL Cholesterol Serum or plasma cholesterol in VLDL measurement (mass/volume)Ordered By: Gloria Cochran on 08-04-2023 Cholesterol in VLDL [Mass/Vol] 30 mg/dL 5-40 [facility] Serum or plasma low density lipoprotein (LDL) cholesterol measurement (mass/volume)Ordered By: Gloria Cochran on 08-04-2023 Cholesterol in LDL [Mass/Vol] 54 mg/dL 0-130 [facility] Thin prep Papanicolaou smear with manual screeningOrdered By: Gloria Cochran on 08-04-2023 Thin prep Papanicolaou smear with manual screening 18 U/L 15-37 [facility] Influenza virus A and B and Respiratory syncytial virus RNA panel - Upper respiratoryOrdered By: Radha Roberts on 07-21-2023 FLUAV and FLUBV and RSV pnl JESSICA+probe (Upper resp) [facility] No Panel Informationon 07-21 POC SARS CoV-2 Antigen Negative [facility] Absolute lymphocyte countOrd ered By: Dr. Mas on 03-17-2023 Lymphocytes Auto (Unsp spec) [#/Vol] 0.63 10*3/uL 0.83-4.51 [facility] Basophil percentageOrdered B y: Dr. Mas on 03-17-2023 Basophils/100 WBC (Bld) 0.2 % 0-1 [facility] Chloride [Moles/Vol] 103 mmol/L 98-107 [facility] Eosinophils/100 WBC (Bld) 0.0 % 0-5 [facility] Glucose [Mass/Vol] 126 mg/dL 74-[address] [facility] Comment on above: Fasting Glucose resu lt greater than or equal to 126 mg/dL suggests DIABETES MELLITUS per A.D.A. criteria. Neutrophils (Bld) [#/Vol] 8.2 10*3/uL 2.0-7.7 [facility] Neutrophils/100 WBC (Bld) 89.5 % 47-70 [facility] Potassium [Moles/Vol] 4.0 mmol/L 3.5-5.1 [facility] Sodium [Moles/Vol] 139 mmol/L 136-[address] [facility] WBC (Bld) [#/Vol] 9.2 10*3/uL 4.4-11.[address] [facility] Blood erythrocytes count (nu mber/volume)Ordered By: Dr. Mas on 03-17-2023 RBC (Bld) [#/Vol] 5.00 10*6/uL 4.6-6.2 [facility] Blood hemoglobin measurement (mass/volume)Ordered By: Dr. Mas on 03-17-2023 Hemoglobin (Bld) [Mass/Vol] 15.3 g/dL 13.0-16.5 [facility] Blood lymphocytes/100 leukoc ytesOrdered By: Dr. Mas on 03-17-2023 Lymphocytes/100 WBC (Bld) 6.9 % 19-41 [facility] Blood monocytes/100 leukocyt esOrdered By: Dr. Mas on 03-17-2023 Monocytes/100 WBC (Bld) 2.7 % 0-10 [facility] Blood platelet mean volumeOr dered By: Dr. Mas on 03-17-2023 Platelet mean volume (Bld) [Entitic vol] 9.0 fL 6.2-12.0 [facility] Determination of erythrocyte mean corpuscular volume (MCV)Ordered By: Dr. Mas on 03-17-2023 MCV (RBC) [Entitic vol] 91.6 fL 80-94 [facility] Hematocrit Auto (Bld) [Volum e fraction]Ordered By: Dr. Mas on 03-17-2023 Hematocrit (Bld) [Volume fraction] 45.8 % 40-54 [facility] Laboratory - Chemistry and C hemistry - challengeOrdered By: Dr. Mas on 03-17-2023 CO2 [Moles/Vol] 30.0 mmol/L 21.0-32.0 [facility] Urea nitrogen/Creatinine [Mass ratio] 20.8 mg/mg 10-20 [facility] Laboratory - Hematology and Cell countsOrdered By: Dr. Mas on 03-17-2023 Erythrocyte distribution width (RBC) [Entitic vol] 43.8 fL 35.1-43.9 [facility] Erythrocyte distribution width (RBC) [Ratio] 13.1 % 11.6-14.6 [facility] Immature granulocytes/100 WBC (Bld) 0.700 % 0.0-0.9 [facility] Comment on above: IG% - Immature Granu locytes (promyelocytes, myelocytes and metamyelocytes) > 1% indicates that a LEFT SHIFT is Present. MCH (RBC) [Entitic mass] 30.6 pg 27.0-32.0 [facility] Nucleated RBC/100 WBC (Bld) [Ratio] 0 % 0-5 [facility] MCHC Auto (RBC) [Mass/Vol]Or dered By: Dr. Mas on 03-17-2023 MCHC (RBC) [Mass/Vol] 33.4 g/dL 32-36 [facility] No Panel InformationOrdered By: Dr. Mas on 03-17-2023 D-Dimer Quantitative (PE/DVT) 0.56 FEU/ug/m 0.27-0.49 [facility] Comment on above: D-Dimer ELEVATED (>0 .49): Additional studies and clinicalassessments are indicated to conclude diagnosis of:Deep Vein Thrombosis (DVT) or Pulmonary Embolism (PE)CRITICAL VALUE VERIFIED. CALLED TO AMBREEN DOS SANTOS03/17/23 1633 Roque Henriquez.RESULTS READ BACK BY SAME . Estimated GFR (MDRD) Amer 74 mL/min >60 [facility] Comment on above: GFR Calc Estimated GFR (MDRD) Non-Af Amer 61 mL/min >60 [facility] Comment on above: Non- GFR Calc Troponin I High Sensitivity 15 pg/mL 3.0-78.0 [facility] Comment on above: Please Note: New Alexandra t Units and Gender Specific Reference Ranges. For more information see Policy Stat Procedure Bluebell High Sensitivity Troponin (TNIH) and attachments. Platelets bldOrdered By: Dr. Mas on 03-17-2023 Platelets (Bld) [#/Vol] 279 10*3/uL 150-450 [facility] Serum or plasma calcium jimbo urement (mass/volume)Ordered By: Dr. Mas on 03-17-2023 Calcium [Mass/Vol] 10.2 mg/dL 8.5-10.[address] [facility] Serum or plasma creatinine m easurement (mass/volume)Ordered By: Dr. Mas on 03-17-2023 Creatinine [Mass/Vol] 1.25 mg/dL 0.70-1.30 [facility] Comment on above: The validity of the calculated GFR & GFRAA in patients over 70 years has not been determined. Clinical correlation is essential. Serum or plasma urea nitroge n measurement (mass/volume)Ordered By: Dr. Mas on 03-17-2023 Urea nitrogen [Mass/Vol] 26 mg/dL 7-18 [facility] Thin prep Papanicolaou smear with manual screeningOrdered By: Dr. Mas on 03-17-2023 Thin prep Papanicolaou smear with manual screening 6 5-15 [facility] No Panel InformationOrdered By: Aleksey Javier on 01-28-2023 Miscellaneous Test See comment [facility] Comment on above: STOOL CULTURETEST RE SULT REFERENCE INTERVALSALMONELLA/SHIGELLASCREEN RESULT 1 NO SALMONELLA OR SHIGELLA RECOVEREDCAMPYLOBACTER CULTUREFINAL REPORT NO CAMPYLOBACTER SPECIES ISOLATEDE COLI SHIGA TOXIN EIA NEGATIVE NEGATIVE ___ TESTING PERFORMED AT [facility]. ORIGINAL REPORT ON FILE IN LAB CONTAINS ADDITIONAL TEST SITE INFORMATION. Stool Calprotectin <16 ug/g 0-[address] [facility] Comment on above: Concentration Interp retation Follow-Up<16 - 50 ug/g Normal None>50 -120 ug/g Borderline Re-evaluate in 4-6 weeks >120 ug/g Abnormal Repeat as clinically indicatedPerformed at: [facility] [address] [id number] [place], [place] [id number] Director: Gian Hopkins PhD, Phone: [phone] at: [facility] [employer] [id number] Director: Patricia Rivera MD, Phone: [phone] Stool Neutral Fats Normal . [facility] Comment on above: Normal (<60 Droplets /HPF) Stool Pancreatic Elastase 90 >200 [facility] Comment on above: Result Units: ug Catie st./gResults verified by repeat testing Severe Pancreatic Insufficiency: <100 Moderate Pancreatic Insufficiency: 100 - 200 Normal: >200Performed at: [employer] [id number] Director: Patricia Rivera MD, Phone: [phone] Qualitative fecal fat or lip idsOrdered By: Aleksey Javier on 01-28-2023 Fat Ql (Stl) Normal . [facility] Comment on above: Normal (<100 Droplet s/HPF) Stool lactoferrin detection by immunoassayOrdered By: Aleksey Javier on 01-28-2023 Lactoferrin IA Ql (Stl) [facility] Basophil percentageOrdered B y: Dr. Giles on 01-24-2023 Bilirubin [Mass/Vol] 0.60 mg/dL 0.20-1.00 [facility] Comment on above: For patients on eltr ombopag therapy, use of Dimension Bluebell TBIL is not recommended. Chloride [Moles/Vol] 104 mmol/L 98-107 [facility] Cholesterol [Mass/Vol] 154 mg/dL <200 [facility] Comment on above: <200 mg/dL Desirable 200-240 mg/dL Borderline >240 mg/dL High Risk Glucose [Mass/Vol] 98 mg/dL 74-[address] [facility] Potassium [Moles/Vol] 3.6 mmol/L 3.5-5.1 [facility] Protein [Mass/Vol] 7.2 g/dL 6.4-8.[address] [facility] Sodium [Moles/Vol] 137 mmol/L 136-[address] [facility] Triglyceride [Mass/Vol] 156 mg/dL <199 [facility] Comment on above: The drugs N-Acetylcy steine and Metamizole may falsely depress this assay.Serum Triglycerides Reference Interval Normal <150 mg/dL Borderline high 150 - 199 mg/dL High 200 - 499 mg/dL Very High > or = 500 mg/dL Direct bilirubinOrdered By: Dr. Giles on 01-24-2023 Bilirubin.direct [Mass/Vol] 0.15 mg/dL 0.00-0.30 [facility] Laboratory - Chemistry and C hemistry - challengeOrdered By: Dr. Giles on 01-24-2023 ALP [Catalytic activity/Vol] 76 U/L 45-117 [facility] ALT [Catalytic activity/Vol] 20 U/L 16-61 [facility] CO2 [Moles/Vol] 28.0 mmol/L 21.0-32.0 [facility] Globulin (S) [Mass/Vol] 3.5 g/dL 2.2-4.2 [facility] Urea nitrogen/Creatinine [Mass ratio] 14.6 mg/mg 10-20 [facility] No Panel InformationOrdered By: Dr. Giles on 01-24-2023 Estimated GFR (MDRD) Amer 57 mL/min >60 [facility] Comment on above: GFR Calc Estimated GFR (MDRD) Non-Af Amer 47 mL/min >60 [facility] Comment on above: Non- GFR Calc Serum or plasma albumin jimbo urement (mass/volume)Ordered By: Dr. Giles on 01-24-2023 Albumin [Mass/Vol] 3.7 g/dL 3.2-5.[address] [facility] Serum or plasma calcium jimbo urement (mass/volume)Ordered By: Dr. Giles on 01-24-2023 Calcium [Mass/Vol] 9.4 mg/dL 8.5-10.[address] [facility] Serum or plasma cholesterol in HDL measurement (mass/volume)Ordered By: Dr. Giles on 01-24-2023 Cholesterol in HDL [Mass/Vol] 62 mg/dL >40 [facility] Comment on above: The drugs N-Acetylcy steine and Metamizole may falsely depress this assay. Reference Range HDL <40 mg/dL Low HDL Cholesterol HDL >or= 60 mg/dL High HDL Cholesterol Serum or plasma cholesterol in VLDL measurement (mass/volume)Ordered By: Dr. Giles on 01-24-2023 Cholesterol in VLDL [Mass/Vol] 31 mg/dL 5-40 [facility] Serum or plasma creatinine m easurement (mass/volume)Ordered By: Dr. Giles on 01-24-2023 Creatinine [Mass/Vol] 1.57 mg/dL 0.70-1.30 [facility] Comment on above: The validity of the calculated GFR & GFRAA in patients over 70 years has not been determined. Clinical correlation is essential. Serum or plasma low density lipoprotein (LDL) cholesterol measurement (mass/volume)Ordered By: Dr. Giles on 01-24-2023 Cholesterol in LDL [Mass/Vol] 61 mg/dL 0-130 [facility] Serum or plasma urea nitroge n measurement (mass/volume)Ordered By: Dr. Giles on 01-24-2023 Urea nitrogen [Mass/Vol] 23 mg/dL 7-18 [facility] Thin prep Papanicolaou smear with manual screeningOrdered By: Dr. Giles on 01-24-2023 Thin prep Papanicolaou smear with manual screening 19 U/L 15-37 [facility] Thin prep Papanicolaou smear with manual screening 5 5-15 [facility] No Panel InformationOrdered By: Dr. Palafox on 12-02-2022 Troponin I High Sensitivity 10 pg/mL 3.0-78.0 [facility] Comment on above: Please Note: New Alexandra t Units and Gender Specific Reference Ranges. For more information see Policy Stat Procedure Bluebell High Sensitivity Troponin (TNIH) and attachments. XR SHOULDER GENERAL 3V OR MO RE AP/TRUE AP/OTHER RIGHTon 11-22-2022 [facility] XR Shoulder - right 3 Viewso n 11-22-2022 IMPRESSION: Degenera tive changes in the right shoulder as described above. Dog Show Judge: TIMOTEO Transcribe Date/Time: Nov 22 2022 3:03P Dictated by : ALLIE LEA MD This examination was interpreted and the report reviewed and electronically signed by: ALLIE LEA MD on Nov 22 2022 3:08PM [facility] DIVISION OF RADIOLOGY * * [...] post mediastinal sternotomy. DIVISION OF RADIOLOGY Provider, [facility] - 11/22/2022 * * *Final Report* * [...] in the right shoulder as described above. Dog Show Judge: PSCB Transcribe Date/Time: Nov 22 2022 3:03P Dictated by : ALLIE LEA MD This examination was interpreted and the report reviewed and electronically signed by: ALLIE LEA MD on Nov 22 2022 3:08PM EST [facility] Radiology Study observation (narrative) Dolly hernández [facility] XR Shoulder - right 3 ViewsO rdered By: [facility] Provider on 11-22-2022 [facility] Basophil percentageOrdered B y: Dr. Betancur on 10-30-2022 Chloride [Moles/Vol] 103 mmol/L 98-107 [facility] Glucose [Mass/Vol] 108 mg/dL 74-[address] [facility] Comment on above: Fasting Glucose resu lt from 100 to 125 mg/dL suggests IMPAIRED HOMEOSTASIS per A.D.A. criteria. Potassium [Moles/Vol] 4.1 mmol/L 3.5-5.1 [facility] Sodium [Moles/Vol] 136 mmol/L 136-[address] [facility] Laboratory - Chemistry and C hemistry - challengeOrdered By: Dr. Betancur on 10-30-2022 CO2 [Moles/Vol] 27.0 mmol/L 21.0-32.0 [facility] Urea nitrogen/Creatinine [Mass ratio] 28.0 mg/mg 10-20 [facility] No Panel InformationOrdered By: Dr. Betancur on 10-30-2022 Estimated Creatinine Clearance Calc 56.02 ml/min [facility] Estimated GFR (MDRD) Amer 79 mL/min >60 [facility] Comment on above: GFR Calc Estimated GFR (MDRD) Non-Af Amer 65 mL/min >60 [facility] Comment on above: Non- GFR Calc Serum or plasma calcium jimbo urement (mass/volume)Ordered By: Dr. Betancur on 10-30-2022 Calcium [Mass/Vol] 9.1 mg/dL 8.5-10.[address] [facility] Serum or plasma creatinine m easurement (mass/volume)Ordered By: Dr. Betancur on 10-30-2022 Creatinine [Mass/Vol] 1.18 mg/dL 0.70-1.30 [facility] Comment on above: The validity of the calculated GFR & GFRAA in patients over 70 years has not been determined. Clinical correlation is essential. Serum or plasma urea nitroge n measurement (mass/volume)Ordered By: Dr. Betancur on 10-30-2022 Urea nitrogen [Mass/Vol] 33 mg/dL 7-18 [facility] Thin prep Papanicolaou smear with manual screeningOrdered By: Dr. Betancur on 10-30-2022 Thin prep Papanicolaou smear with manual screening 6 5-15 [facility] Absolute lymphocyte countOrd ered By: Dr. Betancur on 10-29-2022 Lymphocytes Auto (Unsp spec) [#/Vol] 0.35 10*3/uL 0.83-4.51 [facility] Basophil percentageOrdered B y: Dr. Betancur on 10-29-2022 Basophils/100 WBC (Bld) 0.0 % 0-1 [facility] Eosinophils/100 WBC (Bld) 0.0 % 0-5 [facility] Neutrophils (Bld) [#/Vol] 5.6 10*3/uL 2.0-7.7 [facility] Neutrophils/100 WBC (Bld) 88.8 % 47-70 [facility] WBC (Bld) [#/Vol] 6.3 10*3/uL 4.4-11.[address] [facility] Blood erythrocytes count (nu mber/volume)Ordered By: Dr. Betancur on 10-29-2022 RBC (Bld) [#/Vol] 4.18 10*6/uL 4.6-6.2 [facility] Blood hemoglobin measurement (mass/volume)Ordered By: Dr. Betancur on 10-29-2022 Hemoglobin (Bld) [Mass/Vol] 12.9 g/dL 13.0-16.5 [facility] Blood lymphocytes/100 leukoc ytesOrdered By: Dr. Betancur on 10-29-2022 Lymphocytes/100 WBC (Bld) 5.5 % 19-41 [facility] Blood manual differential co mment interpretation (narrative result)Ordered By: Dr. Betancur on 10-29-2022 Manual differential comment Anurag (Bld) [Interp] SCANNED [facility] Blood monocytes/100 leukocyt esOrdered By: Dr. Betancur on 10-29-2022 Monocytes/100 WBC (Bld) 5.4 % 0-10 [facility] Blood platelet mean volumeOr dered By: Dr. Betancur on 10-29-2022 Platelet mean volume (Bld) [Entitic vol] 9.4 fL 6.2-12.0 [facility] Determination of erythrocyte mean corpuscular volume (MCV)Ordered By: Dr. Betancur on 10-29-2022 MCV (RBC) [Entitic vol] 94.0 fL 80-94 [facility] Hematocrit Auto (Bld) [Volum e fraction]Ordered By: Dr. Betancur on 10-29-2022 Hematocrit (Bld) [Volume fraction] 39.3 % 40-54 [facility] Laboratory - Hematology and Cell countsOrdered By: Dr. Betancur on 10-29-2022 Erythrocyte distribution width (RBC) [Entitic vol] 47.0 fL 35.1-43.9 [facility] Erythrocyte distribution width (RBC) [Ratio] 13.5 % 11.6-14.6 [facility] Immature granulocytes/100 WBC (Bld) 0.300 % 0.0-0.9 [facility] Comment on above: IG% - Immature Granu locytes (promyelocytes, myelocytes and metamyelocytes) > 1% indicates that a LEFT SHIFT is Present. MCH (RBC) [Entitic mass] 30.9 pg 27.0-32.0 [facility] Nucleated RBC/100 WBC (Bld) [Ratio] 0 % 0-5 [facility] MCHC Auto (RBC) [Mass/Vol]Or dered By: Dr. Betancur on 10-29-2022 MCHC (RBC) [Mass/Vol] 32.8 g/dL 32-36 [facility] Platelets bldOrdered By: Dr. Betancur on 10-29-2022 Platelets (Bld) [#/Vol] 186 10*3/uL 150-450 [facility] Absolute lymphocyte counton 10-28-2022 Lymphocytes Auto (Unsp spec) [#/Vol] 0.83 10*3/uL 0.83-4.51 [facility] Work Phone: Basophil percentageOrdered B y: Dr. Henriquez on 10-28-2022 Bilirubin [Mass/Vol] 0.60 mg/dL 0.20-1.00 [facility] Comment on above: For patients on eltr ombopag therapy, use of Dimension Bluebell TBIL is not recommended. Protein [Mass/Vol] 7.0 g/dL 6.4-8.[address] [facility] Basophil percentageon 2021 Basophils/100 WBC (Bld) 0.2 % 0-1 [facility] Work Phone: Chloride [Moles/Vol] 97 mmol/L 98-107 [facility] Work Phone: Eosinophils/100 WBC (Bld) 0.0 % 0-5 [facility] Work Phone: [phone] Glucose [Mass/Vol] 118 mg/dL 74-[address] [facility] Work Phone: Comment on above: Fasting Glucose resu lt from 100 to 125 mg/dL suggests IMPAIRED HOMEOSTASIS per A.D.A. criteria. Neutrophils (Bld) [#/Vol] 5.0 10*3/uL 2.0-7.7 [facility] Work Phone: Neutrophils/100 WBC (Bld) 76.8 % 47-70 [facility] Work Phone: Potassium [Moles/Vol] 3.4 mmol/L 3.5-5.1 [facility] Work Phone: Sodium [Moles/Vol] 134 mmol/L 136-[address] [facility] Work Phone: WBC (Bld) [#/Vol] 6.5 10*3/uL 4.4-11.[address] [facility] Work Phone: Blood erythrocytes count (nu mber/volume)on 10-28-2022 RBC (Bld) [#/Vol] 4.72 10*6/uL 4.6-6.2 [facility] Work Phone: Blood hemoglobin measurement (mass/volume)on 10-28-2022 Hemoglobin (Bld) [Mass/Vol] 14.5 g/dL 13.0-16.5 [facility] Work Phone: Blood lymphocytes/100 leukoc yteson 10-28-2022 Lymphocytes/100 WBC (Bld) 12.7 % 19-41 [facility] Work Phone: Blood monocytes/100 leukocyt eson 10-28-2022 Monocytes/100 WBC (Bld) 10.0 % 0-10 [facility] Work Phone: Blood platelet mean volumeon 10-28-2022 Platelet mean volume (Bld) [Entitic vol] 9.0 fL 6.2-12.0 [facility] Work Phone: Determination of erythrocyte mean corpuscular volume (MCV)on 10-28-2022 MCV (RBC) [Entitic vol] 92.8 fL 80-94 [facility] Work Phone: Hematocrit Auto (Bld) [Volum e fraction]on 10-28-2022 Hematocrit (Bld) [Volume fraction] 43.8 % 40-54 [facility] Work Phone: Influenza virus A and B and SARS-CoV-2 (COVID-19) Ag panel - Upper respiratory specimOrdered By: Dr. Whitney on 10-28-2022 SARS-CoV-2 (COVID-19) RNA JESSICA+probe Ql (Resp) [facility] Laboratory - Chemistry and C hemistry - challengeOrdered By: Dr. Henriquez on 10-28-2022 ALP [Catalytic activity/Vol] 63 U/L 45-117 [facility] ALT [Catalytic activity/Vol] 23 U/L 16-61 [facility] Globulin (S) [Mass/Vol] 3.5 g/dL 2.2-4.2 [facility] Magnesium [Mass/Vol] 2.2 mg/dL 1.6-2.6 [facility] Laboratory - Chemistry and C hemistry - challengeon 10-28-2022 CO2 [Moles/Vol] 29.0 mmol/L 21.0-32.0 [facility] Work Phone: Urea nitrogen/Creatinine [Mass ratio] 14.4 mg/mg 10-20 [facility] Work Phone: Laboratory - Chemistry and C hemistry - challengeOrdered By: Dr. Whitney on 10-28-2022 Natriuretic peptide B (Bld) [Mass/Vol] 60.4 pg/mL 0-100 [facility] Laboratory - Hematology and Cell countson 10-28-2022 Erythrocyte distribution width (RBC) [Entitic vol] 45.6 fL 35.1-43.9 [facility] Work Phone: Erythrocyte distribution width (RBC) [Ratio] 13.3 % 11.6-14.6 [facility] Work Phone: Immature granulocytes/100 WBC (Bld) 0.300 % 0.0-0.9 [facility] Work Phone: Comment on above: IG% - Immature Granu locytes (promyelocytes, myelocytes and metamyelocytes) > 1% indicates that a LEFT SHIFT is Present. MCH (RBC) [Entitic mass] 30.7 pg 27.0-32.0 [facility] Work Phone: Nucleated RBC/100 WBC (Bld) [Ratio] 0 % 0-5 [facility] Work Phone: MCHC Auto (RBC) [Mass/Vol]on 10-28-2022 MCHC (RBC) [Mass/Vol] 33.1 g/dL 32-36 [facility] Work Phone: No Panel Informationon 10-28 Estimated Creatinine Clearance Calc 41.31 ml/min [facility] Work Phone: Estimated GFR (MDRD) Amer 56 mL/min >60 [facility] Work Phone: Comment on above: GFR Calc Estimated GFR (MDRD) Non-Af Amer 46 mL/min >60 [facility] Work Phone: Comment on above: Non- GFR Calc No Panel InformationOrdered By: Dr. Whitney on 10-28-2022 Troponin I High Sensitivity 31 pg/mL 3.0-78.0 [facility] Comment on above: Please Note: New Alexandra t Units and Gender Specific Reference Ranges. For more information see Policy Stat Procedure Bluebell High Sensitivity Troponin (TNIH) and attachments. Platelets bldon 10-28-2022 Platelets (Bld) [#/Vol] 222 10*3/uL 150-450 [facility] Work Phone: Serum or plasma albumin jimbo urement (mass/volume)Ordered By: Dr. Henriquez on 10-28-2022 Albumin [Mass/Vol] 3.5 g/dL 3.2-5.[address] [facility] Serum or plasma albumin/glob ulin mass ratioOrdered By: Dr. Henriquez on 10-28-2022 Albumin/Globulin [Mass ratio] 1.0 {ratio} 0.9-2.4 [facility] Serum or plasma calcium jimbo urement (mass/volume)on 10-28-2022 Calcium [Mass/Vol] 9.3 mg/dL 8.5-10.[address] [facility] Work Phone: Serum or plasma creatinine m easurement (mass/volume)on 10-28-2022 Creatinine [Mass/Vol] 1.60 mg/dL 0.70-1.30 [facility] Work Phone: Comment on above: The validity of the calculated GFR & GFRAA in patients over 70 years has not been determined. Clinical correlation is essential. Serum or plasma urea nitroge n measurement (mass/volume)on 10-28-2022 Urea nitrogen [Mass/Vol] 23 mg/dL 7-18 [facility] Work Phone: Thin prep Papanicolaou smear with manual screeningOrdered By: Dr. Henriquez on 10-28-2022 Thin prep Papanicolaou smear with manual screening 20 U/L 15-37 [facility] Thin prep Papanicolaou smear with manual screeningon 10-28-2022 Thin prep Papanicolaou smear with manual screening 8 5-15 [facility] Work Phone: Respiratory pathogens DNA an d RNA 12b panel JESSICA+probe (Unsp spec)Ordered By: Radha Roberts on 10-27-2022 Respiratory Panel (PCR) Influenza A (Subtype H1) [facility] Albumin Elph [Mass/Vol]on Albumin [Mass/Vol] 3.5 g/dL 2.9-4.[address] [facility] Work Phone: Atypical perinuclear antineu trophil cytoplasmic antibodies measurementon 07-28-2022 Neutrophil cytoplasmic Ab.perinuclear.atypical IF (S) [Titer] <1:20 titer Neg:<1:20 [facility] Work Phone: Comment on above: The atypical pANCA p attern has been observed in asignificant percentage of patients with ulcerative colitis,primary sclerosing cholangitis and autoimmune hepatitis. Basophil percentageon 2021 Basophil percentage < 0.2 AI 0.0-0.9 [facility] Work Phone: Erythrocyte sedimentation ra myles 07-28-2022 ESR (Bld) [Velocity] 10 mm/h 0-20 [facility] Work Phone: Interpretation of serum or p lasma protein pattern by immunofixation (narrative resulton 07-28-2022 Protein Fractions Immunofixation Anurag [Interp] See comment [facility] Work Phone: Comment on above: NOt Observed No Panel Informationon 07-28 Addendum Document Comment . [facility] Work Phone: Comment on above: Protein electrophore sis scan will follow via computer,mail, or picker / packer delivery. Centromere B Antibody <0.2 AI 0.0-0.9 [facility] Work Phone: Endomysial IgA Antibody Negative Negative [facility] Work Phone: Immunoglobulin E 94 IU/mL 6-495 [facility] Work Phone: Comment on above: Performed at: [address] [id number] Director: Gian Hopkins PhD, Phone: [phone] at: BN - [facility] [id number] [place], [place] [id number] Director: Patricia Rivera MD, Phone: [phone] [employer] Antibody 0.2 AI 0.0-0.9 [facility] Work Phone: Serum DNA double strand anti body assay (units/volume)on 07-28-2022 DNA double strand Ab Qn (S) [IU]/mL 0-9 [facility] Work Phone: Comment on above: Negative <5 Equivoca l 5 - 9 Positive >9 Serum Maki-1 antibody assay (u nits/volume)on 07-28-2022 Maki-1 extractable nuclear Ab Qn (S) <0.2 AI 0.0-0.9 [facility] Work Phone: Serum Scl-70 extractable nuc lear antibody assay (units/volume)on 07-28-2022 SCL-70 extractable nuclear Ab Qn (S) <0.2 AI 0.0-0.9 [facility] Work Phone: Serum Reyes extractable nucl ear antibody detectionon 07-28-2022 Reyes extractable nuclear Ab Ql (S) <0.2 AI 0.0-0.9 [facility] Work Phone: Serum [id number] measu rement by electrophoresison 07-28-2022 Alpha 1 globulin Elph [Mass/Vol] 0.3 g/dL 0.0-0.4 [facility] Work Phone: Alpha 1 globulin Elph [Mass/Vol] 0.9 g/dL 0.4-1.0 [facility] Work Phone: Serum classic neutrophil cyt oplasmic antibody assay (units/volume)on 07-28-2022 Neutrophil cytoplasmic Ab.classic Qn (S) <1:20 titer Neg:<1:20 [facility] Work Phone: Serum globulin measurement ( mass/volume)on 07-28-2022 Globulin (S) [Mass/Vol] 2.8 g/dL 2.2-3.9 [facility] Work Phone: Serum or plasma C reactive p rotein measurement (mass/volume)on 07-28-2022 CRP [Mass/Vol] mg/L 0.0-3.0 [facility] Work Phone: Comment on above: C-Reactive Protein ( CRP) provides useful information for thediagnosis, therapy and monitoring of inflammatory processesand associated diseases. For the evaluation of Relative Riskfor Cardiovascular Disease, a High Sensitivity CRP (HSCRP)should be ordered. Serum or plasma IgA measurem ent (mass/volume)on 07-28-2022 IgA [Mass/Vol] 175 mg/dL 61-437 [facility] Work Phone: Serum or plasma IgG measurem ent (mass/volume)on 07-28-2022 IgG [Mass/Vol] 789 mg/dL [phone] [facility] Work Phone: Serum or plasma IgM measurem ent (mass/volume)on 07-28-2022 IgM [Mass/Vol] 105 mg/dL 20-172 [facility] Work Phone: Serum or plasma beta globuli n measurement by electrophoresis (mass/volume)on 07-28-2022 Beta globulin Elph [Mass/Vol] 0.9 g/dL 0.7-1.3 [facility] Work Phone: Serum or plasma gamma globul in measurement by electrophoresis (mass/volume)on 07-28-2022 Gamma globulin Elph [Mass/Vol] 0.8 g/dL 0.4-1.8 [facility] Work Phone: Serum or plasma immunoelectr ophoresis interpretation (nominal result)on 07-28-2022 Interpretation IEP [Interp] Comment . [facility] Work Phone: Comment on above: No monoclonality det ected. Serum perinuclear neutrophil cytoplasmic antibody titer by immunofluorescenceon 07-28-2022 Neutrophil cytoplasmic Ab.perinuclear IF (S) [Titer] <1:20 titer Neg:<1:20 [facility] Work Phone: Comment on above: The presence of posi tive fluorescence exhibiting P-ANCA orC-ANCA patterns alone is not specific for the diagnosis ofWegener's Granulomatosis (WG) or microscopic polyangiitis.Decisions about treatment should not be based solely onANCA IFA results. The [employer] ANCA [employer] Consensusrecommends follow up testing of positive sera with both GA-3 and MPO-ANCA enzyme immunoassays. As many as 5% serumsamples are positive only by EIA. Ref. AM J Clin [id number];111:507-513. Serum tissue transglutaminas e IgA antibody assay (units/volume)on 07-28-2022 tTG IgA Qn (S) <2 U/mL 0-3 [facility] Work Phone: Comment on above: Negative 0 - 3 Weak Positive 4 - 10 Positive >10 Tissue Transglutaminase (tTG) has been identified as the endomysial antigen. Studies have demonstr- ated that endomysial IgA antibodies have over 99% specificity for gluten sensitive enteropathy. Thin prep Papanicolaou smear with manual screeningon 07-28-2022 Thin prep Papanicolaou smear with manual screening 1.3 0.7-1.7 [facility] Work Phone: Total protein bloodon 2021 Protein [Mass/Vol] 6.3 g/dL 6.0-8.[address] [facility] Work Phone: CBC W Auto Differential pane l (Bld)on 07-15-2022 Basophils (Bld) [#/Vol] 10*3/uL Normal <0.11 A [facility] Comment on above: Order Comment: Speci adin Type: BLOOD SPECIMEN Ordering Facility: [facility] Address: [address] [place] [address] Performed By: #### 5 7021-8 #### [facility] CLIA [id number] [address] [place] [id number] [place] Basophils/100 WBC (Bld) 0.0 % Normal A [facility] Comment on above: Order Comment: Ashly oakley Type: BLOOD SPECIMEN Ordering Facility: [facility] Address: [address] [address] Performed By: #### 5 7021-8 #### [facility] CLIA [id number] [address] [id number] [facility] [place] Differential cell count method Nom (Bld) Auto Normal [facility] Comment on above: Order Comment: Speci men Type: BLOOD SPECIMEN Ordering Facility: [facility] Address: [address] [place] [address] Performed By: #### 5 7021-8 #### [facility] CLIA [id number] [address] [place] [address] [place] Eosinophils (Bld) [#/Vol] 10*3/uL Normal <0.46 [facility] Comment on above: Order Comment: Speci men Type: BLOOD SPECIMEN Ordering Facility: [facility] Address: [address] [place] [address] Performed By: #### 5 7021-8 #### [facility] CLIA [id number] [address] Eosinophils/100 WBC (Bld) 0.1 % Normal [facility] Comment on above: Order Comment: Speci men Type: BLOOD SPECIMEN Ordering Facility: [facility] Address: [address] [place] [address] Performed By: #### 5 7021-8 #### [facility] CLIA [id number] [address] [place] [address] [place] Erythrocyte distribution width (RBC) [Ratio] 12.5 % Normal 11.5-15.0 [facility] Comment on above: Order Comment: Speci men Type: BLOOD SPECIMEN Ordering Facility: [facility] Address: [address] [place] [address] Performed By: #### 5 7021-8 #### [facility] CLIA [id number] [address] [place] [address] [place] Hematocrit (Bld) [Volume fraction] 35.7 % Low 39.0-51.0 [facility] Comment on above: Order Comment: Speci men Type: BLOOD SPECIMEN Ordering Facility: [facility] Address: [address] [place] [address] Performed By: #### 5 7021-8 #### [facility] CLIA [id number] [address] [place], [place] [id number] [place] [address] [place] Hemoglobin (Bld) [Mass/Vol] 11.8 g/dL Low 13.0-17.0 [facility] Comment on above: Order Comment: Speci men Type: BLOOD SPECIMEN Ordering Facility: [facility] Address: [address] [place] [address] Performed By: #### 5 7021-8 #### [facility] CLIA [id number] [address] [place] Lymphocytes (Bld) [#/Vol] 0.89 10*3/uL Low 1.00-4.00 [facility] Comment on above: Order Comment: Speci men Type: BLOOD SPECIMEN Ordering Facility: [facility] Address: [address] [place] [address] Performed By: #### 5 7021-8 #### [facility] CLIA [id number] [address] [place] [address] Lymphocytes/100 WBC (Bld) 9.3 % Normal [facility] Comment on above: Order Comment: Speci men Type: BLOOD SPECIMEN Ordering Facility: [facility] Address: [address] [place] [address] Performed By: #### 5 7021-8 #### [facility] CLIA [id number] [address] [place] [id number] [place] MCH (RBC) [Entitic mass] 31.5 pg Normal 26.0-34.0 [facility] Comment on above: Order Comment: Speci men Type: BLOOD SPECIMEN Ordering Facility: [facility] Address: [address] [place] [address] Performed By: #### 5 7021-8 #### [facility] CLIA [id number] [address] [place], [place] [id number] [place] [address] [place] MCHC (RBC) [Mass/Vol] 33.1 g/dL Normal 30.5-36.0 [facility] Comment on above: Order Comment: Speci men Type: BLOOD SPECIMEN Ordering Facility: [facility] Address: [address] [place] [address] Performed By: #### 5 7021-8 #### [facility] CLIA [id number] [address] [place] MCV (RBC) [Entitic vol] 95.2 fL Normal 80.0-100.0 A [facility] Comment on above: Order Comment: Speci men Type: BLOOD SPECIMEN Ordering Facility: [facility] Address: [address] [place] [address] Performed By: #### 5 7021-8 #### [facility] CLIA [id number] [address] [place] [address] [place] Monocytes (Bld) [#/Vol] 0.76 10*3/uL Normal <0.87 [facility] Comment on above: Order Comment: Speci men Type: BLOOD SPECIMEN Ordering Facility: [facility] Address: [address] [place] [address] Performed By: #### 5 7021-8 #### [facility] CLIA [id number] [address] [place] [address] Monocytes/100 WBC (Bld) 7.9 % Normal A [facility] Comment on above: Order Comment: Speci men Type: BLOOD SPECIMEN Ordering Facility: [facility] Address: [address] [place] [address] Performed By: #### 5 7021-8 #### [facility] CLIA [id number] [address] [place] Neutrophils (Bld) [#/Vol] 7.94 10*3/uL High 1.45-7.50 [facility] Comment on above: Order Comment: Speci men Type: BLOOD SPECIMEN Ordering Facility: [facility] Address: [address] [place] [address] Performed By: #### 5 7021-8 #### [facility] CLIA [id number] [address] [place] [address] [place] Neutrophils/100 WBC (Bld) 82.7 % Normal [facility] Comment on above: Order Comment: Speci men Type: BLOOD SPECIMEN Ordering Facility: [facility] Address: [address] [place] [address] Performed By: #### 5 7021-8 #### [facility] CLIA [id number] [address] [place] [address] [place] Platelet mean volume (Bld) [Entitic vol] 9.4 fL Normal 9.0-12.7 [facility] Comment on above: Order Comment: Speci men Type: BLOOD SPECIMEN Ordering Facility: [facility] Address: [address] [place] [address] Performed By: #### 5 7021-8 #### [facility] CLIA [id number] [address] [place] [address] [place] Platelets (Bld) [#/Vol] 259 10*3/uL Normal 150-400 [facility] Comment on above: Order Comment: Speci men Type: BLOOD SPECIMEN Ordering Facility: [facility] Address: [address] [place], [place] [id number] Performed By: #### 5 7021-8 #### [facility] CLIA [id number] [address] [place] [address] [place] RBC (Bld) [#/Vol] 3.75 10*6/uL Low 4.20-6.00 [facility] Comment on above: Order Comment: Speci men Type: BLOOD SPECIMEN Ordering Facility: [facility] Address: [address] [place] [address] Performed By: #### 5 7021-8 #### [facility] CLIA [id number] [address] [place] [address] [place] WBC (Bld) [#/Vol] 9.60 10*3/uL Normal 3.70-11.00 [facility] Comment on above: Order Comment: Ashly oakley Type: BLOOD SPECIMEN Ordering Facility: [facility] Address: [address] [place] [address] Performed By: #### 5 7021-8 #### [facility] CLIA [id number] [address] [place] [address] [facility] [place] [facility] BRAIN WO IVCONon 07-15-20 CT BRAIN WO IVCON * * *Final Report* * * DATE OF EXAM: Jul 15 2022 11:00AM [facility] 0504 - CT BRAIN WO IVCON / [...] MQ: CTBCSWO_3 Dose-Length Product (DLP): 772.45 (accession [id number]), 315.30 (accession [id number]) mGy*cm. CT Dose Reduction Employed: No dose [...] vertebrae with counting from the craniocervical junction. 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 CT CERVICAL SPINE WO IVCONon 07-15-2022 CT CERVICAL SPINE WO IVCON * * *Final Report* * * DATE OF EXAM: Jul 15 2022 11:00AM [facility] 0505 - CT CERVICAL SPINE WO IVCON [...] MQ: CTBCSWO_3 Dose-Length Product (DLP): 772.45 (accession [id number]), 315.30 (accession [id number]) mGy*cm. CT Dose Reduction Employed: No dose [...] vertebrae with counting from the craniocervical junction. 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 CT CHEST W IVCON PEon 2021 CT CHEST W IVCON PE * * *Final Report* * * DATE OF EXAM: Jul 15 2022 11:51AM [facility] 0540 - CT CHEST W IVCON PE [...] imaged upper abdomen. Cholelithiasis. Fatty liver changes. Weir Fisher (topogram) images: IMPRESSION: 1. No CT evidence of pulmonary embolism. 2. No CT evidence of acute traumatic injury to the chest. 3. Status post CABG changes. 4.No acute abnormality in the imaged upper abdomen. Cholelithiasis. Fatty liver changes. 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 Comprehensive metabolic 2000 panelon 07-15-2022 Albumin [Mass/Vol] 3.9 g/dL Normal 3.9-4.9 [facility] Comment on above: Order Comment: Speci men Type: BLOOD SPECIMEN Ordering Facility: [facility] Address: [address] [place] [id number] Performed By: #### 2 4323-8 #### [facility] CLIA [id number] [address] [place] [address] [place] ALP [Catalytic activity/Vol] 57 U/L Normal 38-113 [facility] Comment on above: Order Comment: Speci men Type: BLOOD SPECIMEN Ordering Facility: [facility] Address: [address] [place] [address] Performed By: #### 2 4323-8 #### [facility] CLIA [id number] [address] [place], [place] [id number] [place] [address] [place] ALT With P-5'-P [Catalytic activity/Vol] 9 U/L Low 10-54 [facility] Comment on above: Order Comment: Speci men Type: BLOOD SPECIMEN Ordering Facility: [facility] Address: [address] [place] [address] Performed By: #### 2 4323-8 #### [facility] CLIA [id number] [address] OF [facility] Anion gap [Moles/Vol] 11 mmol/L Normal 9-18 [facility] Comment on above: Order Comment: Speci men Type: BLOOD SPECIMEN Ordering Facility: [facility] Address: [address] [place] [address] Performed By: #### 2 4323-8 #### [facility] CLIA [id number] [address] [place] AST With P-5'-P [Catalytic activity/Vol] 9 U/L Low 14-40 [facility] Comment on above: Order Comment: Speci men Type: BLOOD SPECIMEN Ordering Facility: [facility] Address: [address] [place] [address] Performed By: #### 2 4323-8 #### [facility] CLIA [id number] [address] [place], [place] [address] [place] [address] [place] Bilirubin [Mass/Vol] 0.6 mg/dL Normal 0.2-1.3 [facility] Comment on above: Order Comment: Speci men Type: BLOOD SPECIMEN Ordering Facility: [facility] Address: [address] [place] [address] Performed By: #### 2 4323-8 #### [facility] CLIA [id number] [address] [place] [address] [place] Calcium [Mass/Vol] 9.4 mg/dL Normal 8.5-10.2 [facility] Comment on above: Order Comment: Speci men Type: BLOOD SPECIMEN Ordering Facility: [facility] Address: [address] [place] [address] Performed By: #### 2 4323-8 #### [facility] CLIA [id number] [address] [place] [address] [place] Chloride [Moles/Vol] 97 mmol/L Normal 97-105 [facility] Comment on above: Order Comment: Speci men Type: BLOOD SPECIMEN Ordering Facility: [facility] Address: [address] [place] [address] Performed By: #### 2 4323-8 #### [facility] CLIA [id number] [address] [place] [address] [place] CO2 [Moles/Vol] 32 mmol/L High 22-30 [facility] Comment on above: Order Comment: Speci men Type: BLOOD SPECIMEN Ordering Facility: [facility] Address: [address] [place] [address] Performed By: #### 2 4323-8 #### [facility] CLIA [id number] [address] [place] [address] [place] Creatinine [Mass/Vol] 1.48 mg/dL High 0.73-1.22 [facility] Comment on above: Order Comment: Speci men Type: BLOOD SPECIMEN Ordering Facility: [facility] Address: [address] [place] [address] Performed By: #### 2 4323-8 #### [facility] CLIA [id number] [address] [place] [address] [place] ESTIMATED GLOMERULAR FILTRATION RATE 51 mL/min/1.73m??? Low >=60 [facility] Comment on above: Order Comment: Ashly oakley Type: BLOOD SPECIMEN Ordering Facility: [facility] Address: [address] [place] [address] Result Comment: Shelli mated Glomerular Filtration Rate [...] GFR. Performed By: #### 2 4323-8 #### [facility] CLIA [id number] [address] [place], [place] [id number] [place] Glucose [Mass/Vol] 107 mg/dL High 74-99 [facility] Comment on above: Order Comment: Ashly oakley Type: BLOOD SPECIMEN Ordering Facility: [facility] Address: [address] [place] [address] Result Comment: The [place] Diabetes Association (ADA) provides guidance for cutoff [...] Standards of Medical Care in Diabetes 2016, [place] [employer] Association. Diabetes Care. 2016.39(Suppl 1). Performed By: #### 2 4323-8 #### [facility] CLIA [id number] [address] [place], [place] [id number] [place] Potassium [Moles/Vol] 3.6 mmol/L Low 3.7-5.1 [facility] Comment on above: Order Comment: Ashly oakley Type: BLOOD SPECIMEN Ordering Facility: [facility] Address: [address] [place] [address] Performed By: #### 2 4323-8 #### [facility] CLIA [id number] [address] [place] Protein [Mass/Vol] 6.3 g/dL Normal 6.3-8.0 [facility] Comment on above: Order Comment: Speci men Type: BLOOD SPECIMEN Ordering Facility: [facility] Address: [address] [place] [address] Performed By: #### 2 4323-8 #### [facility] CLIA [id number] [address] [place] Sodium [Moles/Vol] 140 mmol/L Normal 136-144 [facility] Comment on above: Order Comment: Speci men Type: BLOOD SPECIMEN Ordering Facility: [facility] Address: [address] [place] [address] Performed By: #### 2 4323-8 #### [facility] CLIA [id number] [address] [place] Urea nitrogen [Mass/Vol] 20 mg/dL Normal 9-24 [facility] Comment on above: Order Comment: Speci men Type: BLOOD SPECIMEN Ordering Facility: [facility] Address: [address] [place] [address] Performed By: #### 2 4323-8 #### [facility] CLIA [id number] [address] [place] ECG COMPLETEon 07-15-2022 ECG COMPLETE Ventricular Rate : 7 0 BPM Atrial Rate : 70 BPM P-R Interval : 116 ms QRS Duration : 136 ms Q-T Interval : 430 ms QTC Calculation(Bazett) : 464 ms Calculated P [place] : 19 degrees Calculated R [place] : -61 degrees Calculated T [place] : 0 degrees NORMAL SINUS RHYTHM WITH SINUS ARRHYTHMIA POSSIBLE LEFT ATRIAL ENLARGEMENT LEFT AXIS DEVIATION RIGHT BUNDLE BRANCH BLOCK ABNORMAL ECG NO PREVIOUS ECGS AVAILABLE Confirmed by MD GAYE, ISIAH ([id number]) on 07/19/2022 8:54:07 AM NAME : HORACE HENDERSON PID : [id number] : 1955 Gender : Male Race : ORD : [id number] Procedure Date : Jul 15 2022 10:14:20 Edit Date : Jul 19 2022 08:54:08 Diagnosis: NORMAL SINUS RHYTHM WITH SINUS ARRHYTHMIA POSSIBLE LEFT ATRIAL ENLARGEMENT LEFT AXIS DEVIATION RIGHT BUNDLE BRANCH BLOCK ABNORMAL ECG NO PREVIOUS ECGS AVAILABLE Confirmed by MD HUIZAR VINAY ([id number]) on 07/19/2022 8:54:07 AM Test Reason : Chest Pain Location : 150 : [facility] Overread By : MD HUIZAR VINAY Edited By : MD HUIZAR VINAY Referred By : , Acquired by : EDSON MITCHELL [facility] ED NOTEon 07-15-2022 ED NOTE HNO ID: [id number] Author: Payal Santos RN Service: Nursing Author [...] DATE: July 16, 2022 TIME: 4:05 PM [facility] ED NOTE HNO ID: [id number] Author: Mee Cordova RN Service: Nursing Author Type: Registered Nurse Type: ED Notes Filed: 07/15/2022 1:10 PM Note Text: Spoke with Dr Thacker, meal tray will be ordered for the patient [facility] ED NOTE HNO ID: [id number] Author: Mee Cordova RN Service: Nursing Author Type: Registered Nurse Type: ED Notes Filed: 07/15/2022 11:04 AM Note Text: I spoke to the patient concerning why he came to our facility. Pt stated, I was instructed to leave the Urgent Care and go either to [place] or [facility] to be evaluated, I don't think she wanted me to go back to [facility] after the lack of testing they did when I was there a few days ago". [facility] ED NOTE HNO ID: [id number] Author: Mee Cordova RN Service: Nursing Author Type: Registered Nurse Type: ED Notes Filed: 07/15/2022 10:39 AM Note Text: Patient informed: the name of medication, why we are giving it, possible side effects, what they may expect to feel, and was offered a chance to ask questions, prior to the administration of Fentanyl [facility] ED NOTE HNO ID: [id number] Author: Mee Cordova RN Service: Nursing Author [...] Dr Thacker concerning pain medication for pt. [facility] ED NOTE HNO ID: [id number] Author: Mee Cordova RN Service: Nursing Author Type: Registered Nurse Type: ED Notes Filed: 07/15/2022 10:15 AM Note Text: Dr Thacker at bedside [facility] ED NOTE HNO ID: [id number] Author: Mee Cordova RN Service: Nursing Author Type: Registered Nurse Type: ED Notes Filed: 07/15/2022 10:14 AM Note Text: Resp at bedside for EKG [facility] ED NOTE HNO ID: [id number] Author: Mee Cordova RN Service: Nursing Author Type: Registered Nurse Type: ED Notes Filed: 07/15/2022 10:09 AM Note Text: Pt arrives from [facility] with reports right lateral rib pain. Pt reports on Monday evening he had a coughing fit, and then the next thing I know I am on the ground, so I don't know if I passed out or not". Pt was seen at [place] on Monday evening with report of "just chest xray, they didn't really say anything about the xray". Pt is AOX3, 97% on room air upon arrival to the room. [facility] ED PROV NOTEon 07-15-2022 ED PROV NOTE HNO ID: [id number] Author: Swapnil Thacker MD Service: Emergency Medicine [...] "pop". He states he was seen at [place] emergency department and had an x-ray that [...] disease) 01/11/2012 Chronic bronchitis (HCC) 10/07/2013 06/17/2014 [id number]% predicted. COPD (chronic obstructive pulmonary disease) (HCC) [...] ear normal. (more content not included)... Normal [facility] Basophil percentageon 2020 Bilirubin [Mass/Vol] 0.40 mg/dL 0.20-1.00 [facility] Work Phone: Comment on above: For patients on eltr ombopag therapy, use of Dimension Blue[place] TBIL is not recommended. Chloride [Moles/Vol] 101 mmol/L 98-107 [facility] Work Phone: Cholesterol [Mass/Vol] 128 mg/dL <200 [facility] Work Phone: Comment on above: <200 mg/dL Desirable 200-240 mg/dL Borderline >240 mg/dL High Risk Glucose [Mass/Vol] 97 mg/dL 74-[address] [facility] Work Phone: Comment on above: Please note revised GLUCOSE reference range effective 2017. Potassium [Moles/Vol] 3.9 mmol/L 3.5-5.1 [facility] Work Phone: Protein [Mass/Vol] 7.1 g/dL 6.4-8.[address] [facility] Work Phone: Sodium [Moles/Vol] 139 mmol/L 136-[address] [facility] Work Phone: Triglyceride [Mass/Vol] 112 mg/dL [facility] Work Phone: Comment on above: The drugs N-Acetylcy steine and Metamizole may falsely depress this assay.Serum Triglycerides Reference Interval Normal <150 mg/dL Borderline high 150 - 199 mg/dL High 200 - 499 mg/dL Very High > or = 500 mg/dL Direct bilirubinon Bilirubin.direct [Mass/Vol] 0.13 mg/dL 0.00-0.30 [facility] Work Phone: Laboratory - Chemistry and C hemistry - challengeon 10-07-2021 ALP [Catalytic activity/Vol] 67 U/L 45-117 [facility] Work Phone: ALT [Catalytic activity/Vol] 27 U/L 16-61 [facility] Work Phone: CO2 [Moles/Vol] 34.0 mmol/L 21.0-32.0 [facility] Work Phone: Globulin (S) [Mass/Vol] 3.5 g/dL 2.2-4.2 [facility] Work Phone: Urea nitrogen/Creatinine [Mass ratio] 17.1 mg/mg 10-20 [facility] Work Phone: No Panel Informationon 10-07 Estimated GFR (MDRD) Amer 85 mL/min >60 [facility] Work Phone: Comment on above: GFR Calc Estimated GFR (MDRD) Non-Af Amer 70 mL/min >60 [facility] Work Phone: Comment on above: Non- GFR Calc Serum or plasma albumin jimbo urement (mass/volume)on 10-07-2021 Albumin [Mass/Vol] 3.6 g/dL 3.2-5.[address] [facility] Work Phone: Serum or plasma calcium jimbo urement (mass/volume)on 10-07-2021 Calcium [Mass/Vol] 9.5 mg/dL 8.5-10.[address] [facility] Work Phone: Serum or plasma cholesterol in HDL measurement (mass/volume)on 12-09-2021 Cholesterol in HDL [Mass/Vol] 58 mg/dL [facility] Work Phone: Comment on above: The drugs N-Acetylcy steine and Metamizole may falsely depress this assay. Reference Range HDL <40 mg/dL Low HDL Cholesterol HDL >or= 60 mg/dL High HDL Cholesterol Serum or plasma cholesterol in VLDL measurement (mass/volume)on 10-07-2021 Cholesterol in VLDL [Mass/Vol] 22 mg/dL 5-40 [facility] Work Phone: Serum or plasma creatinine m easurement (mass/volume)on 10-07-2021 Creatinine [Mass/Vol] 1.11 mg/dL 0.70-1.30 [facility] Work Phone: Comment on above: The validity of the calculated GFR & GFRAA in patients over 70 years has not been determined. Clinical correlation is essential. Serum or plasma low density lipoprotein (LDL) cholesterol measurement (mass/volume)on 10-07-2021 Cholesterol in LDL [Mass/Vol] 48 mg/dL 0-130 [facility] Work Phone: Serum or plasma urea nitroge n measurement (mass/volume)on 10-07-2021 Urea nitrogen [Mass/Vol] 19 mg/dL 7-18 [facility] Work Phone: Thin prep Papanicolaou smear with manual screeningon 10-07-2021 Thin prep Papanicolaou smear with manual screening 17 U/L 15-37 [facility] Work Phone: Thin prep Papanicolaou smear with manual screening 4 5-15 [facility] Work Phone: XR Lumbar spine 3 Viewson IMPRESSION: DEGENERATIVE CHANGE, MOST PRONOUNCED IN THE LOWER LUMBAR REGION. 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 DIVISION OF RADIOLOGY Provider, [facility] - 12/29/2020 * * *Final Report* * [...] MOST PRONOUNCED IN THE LOWER LUMBAR REGION. [facility] Transcribe Date/Time: Dec 29 2020 1:59P Dictated by : ASHLEY MARCUS MD This examination was interpreted and the report reviewed and electronically signed by: ASHLEY MARCUS MD on Dec 29 2020 2:09PM EST [facility] Radiology Study observation (narrative) Dolly hernández [facility] XR Lumbar spine 3 ViewsOrder ed By: [facility] Provider on 12-29-2020 [facility] Influenza virus A and B and SARS-CoV-2 (COVID-19) Ag panel - Upper respiratory specim SARS-CoV-2 (COVID-19) RNA JESSICA+probe Ql (Resp) [facility] Work Phone: Respiratory pathogens DNA an d RNA 12b panel JESSICA+probe (Unsp spec) Respiratory Panel (PCR) Influenza A (Subtype H1) [facility] Work Phone: Vital Signs Date Time Vital Sign Value Performing Clinician Facility 07-21-2025 08:05-0400 Body height 170.[address] George Vázquez MD Work Phone: [facility] 07-21-2025 08:05-0400 Body mass index (BMI) [Ratio] 25.7 kg/m2 Dr. George Vázquez MD Work Phone: [facility] 07-21-2025 08:05-0400 Body weight 74.[address] George Vázquez MD Work Phone: [facility] 07-07-2025 10:55-0400 Body mass index (BMI) [Ratio] 28.62 kg/m2 Blanca Tilley [employer] Work Phone: [facility] 07-07-2025 10:55-0400 Body weight 81.9 kg Blanca Tilley [employer] Work Phone: [facility] 07-07-2025 10:55-0400 Diastolic blood pressure 72 mm[Hg] Blanca Tilley [employer] Work Phone: [facility] 07-07-2025 10:55-0400 Heart rate 86 /min Blanca Tilley [employer] Work Phone: [facility] 07-07-2025 10:55-0400 SaO2% (BldA) [Mass fraction] 95 % Blanca Tilley [employer] Work Phone: [facility] 07-07-2025 10:55-0400 Systolic blood pressure 138 mm[Hg] Blanca Tilley [employer] Work Phone: [facility] 07-03-2025 12:02-0400 Body mass index (BMI) [Ratio] 29 kg/m2 Prateek Matos [employer] Work Phone: [facility] 07-03-2025 12:02-0400 Body temperature 97.81 [degF] Prateek Matos [employer] Work Phone: [facility] 07-03-2025 12:02-0400 Body weight 83 kg Prateek Matos [employer] Work Phone: [facility] 07-03-2025 12:02-0400 Diastolic blood pressure 95 mm[Hg] [facility] [employer] Work Phone: [facility] Comment on above: checked BP x 2175/96 07-03-2025 12:02-0400 Heart rate 93 /min [facility] [employer] Work Phone: [facility] 07-03-2025 12:02-0400 Respiratory rate 22 /min [facility] [employer] Work Phone: [facility] 07-03-2025 12:02-0400 SaO2% (BldA) [Mass fraction] 94 % [facility] [employer] Work Phone: [facility] 07-03-2025 12:02-0400 Systolic blood pressure 167 mm[Hg] [facility] [employer] Work Phone: [facility] Comment on above: checked BP x 2175/96 05-28-2025 13:37-0400 Diastolic blood pressure 81 mm[Hg] George Vázquez MD Work Phone: [facility] 05-28-2025 13:37-0400 Heart rate 72 /min George Vázquez MD Work Phone: [facility] 05-28-2025 13:37-0400 Systolic blood pressure 157 mm[Hg] George Vázquez MD Work Phone: [facility] 05-28-2025 13:28-0400 Body height 169.2 cm George Vázquez MD Work Phone: [facility] 05-28-2025 13:28-0400 Body mass index (BMI) [Ratio] 27.5 kg/m2 George Vázquez MD Work Phone: [facility] 05-28-2025 13:28-0400 Body weight 78.7 kg George Vázquez MD Work Phone: [facility] 05-05-2025 12:58-0400 Body height 170.[address] George Vázquez MD Work Phone: [facility] 05-05-2025 12:58-0400 Body mass index (BMI) [Ratio] 27.8 kg/m2 Dr. George Vázquez MD Work Phone: 1(150)260-787252 [place] [address] 05-05-2025 12:58-0400 Body weight 80.[address] George Vázquez MD Work Phone: 8(484)645-499752 [place] [address] 05-05-2025 12:58-0400 Diastolic blood pressure 77 mm[Hg] Dr. George Vázquez MD Work Phone: 7(647)208-990752 [place] [address] 05-05-2025 12:58-0400 Heart rate 80 /min Dr. George Vázquez MD Work Phone: 6(006)046-260154 [place] [address] 05-05-2025 12:58-0400 Respiratory rate 16 /min Dr. George Vázquez MD Work Phone: 7(429)424-935652 [place] [address] 05-05-2025 12:58-0400 Systolic blood pressure 135 mm[Hg] Dr. George Vázquez MD Work Phone: 0(169)366-129954 [place] [address] 01-20-2025 14:53-0400 Body height 170.[address] George Vázquez MD Work Phone: 5(500)164-011752 [place] [address] 01-20-2025 07:32-0400 Body mass index (BMI) [Ratio] 27.8 kg/m2 Dr. George Vázquez MD Work Phone: 2(731)925-092054 [place] [address] 01-20-2025 07:32-0400 Body weight 80.[address] George Vázquez MD Work Phone: 0(736)052-207552 [place] [address] 01-20-2025 07:32-0400 Diastolic blood pressure 79 mm[Hg] Dr. George Vázquez MD Work Phone: [facility] 01-20-2025 07:32-0400 Heart rate 82 /min Dr. George Vázquez MD Work Phone: [facility] 01-20-2025 07:32-0400 Respiratory rate 18 /min Dr. George Vázquez MD Work Phone: [facility] 01-20-2025 07:32-0400 SaO2% (BldA) [Mass fraction] 94 % Dr. George Vázquez MD Work Phone: [facility] 01-20-2025 07:32-0400 Systolic blood pressure 121 mm[Hg] Dr. George Vázquez MD Work Phone: [facility] 01-08-2025 15:27-0400 Body mass index (BMI) [Ratio] 27.45 kg/m2 George Vázquez MD Work Phone: [facility] 01-08-2025 15:27-0400 Body temperature 97.9 [degF] George Vázquez MD Work Phone: [facility] 01-08-2025 15:27-0400 Body weight 79.5 kg George Vázquez MD Work Phone: [facility] 01-08-2025 15:27-0400 Diastolic blood pressure 78 mm[Hg] George Vázquez MD Work Phone: [facility] 01-08-2025 15:27-0400 Heart rate 110 /min George Vázquez MD Work Phone: [facility] 01-08-2025 15:27-0400 Respiratory rate 20 /min George Vázquez MD Work Phone: [facility] 01-08-2025 15:27-0400 Systolic blood pressure 130 mm[Hg] George Vázquez MD Work Phone: [facility] 01-08-2025 10:51-0400 Body height 170.[address] George Vázquez MD Work Phone: 5(102)851-401754 [place] [address] 01-08-2025 10:43-0400 Diastolic blood pressure 89 mm[Hg] Dr. George Vázquez MD Work Phone: 9(416)625-956152 [place] [address] 01-08-2025 10:43-0400 Heart rate 70 /min Dr. George Vázquez MD Work Phone: 2(732)044-348952 [place] [address] 01-08-2025 10:43-0400 Respiratory rate 20 /min Dr. George Vázquez MD Work Phone: 6(315)693-402352 [place] [address] 01-08-2025 10:43-0400 Systolic blood pressure 159 mm[Hg] Dr. George Vázquez MD Work Phone: 6(929)348-480352 [place] [address] 11-06-2024 10:49-0500 Body weight 81.[address] George Vázquez MD Work Phone: 0(325)667-572252 [place] [address] 11-06-2024 10:49-0500 Heart rate 97 /min Dr. George Vázquez MD Work Phone: 3(138)997-733352 [place] [address] 11-06-2024 10:49-0500 SaO2% (BldA) [Mass fraction] 95 % Dr. George Vázquez MD Work Phone: 0(257)180-879452 [place] [address] 11-05-2024 13:04-0500 Body weight [address] George Vázquez MD Work Phone: 3(587)624-386052 [place] [address] 11-05-2024 13:04-0500 Diastolic blood pressure 81 mm[Hg] Dr. George Vázquez MD Work Phone: 4(632)612-469052 [place] [address] 11-05-2024 13:04-0500 Heart rate 119 /min Dr. George Vázquez MD Work Phone: 7(741)550-838252 [place] [address] 11-05-2024 13:04-0500 Respiratory rate 18 /min Dr. George Vázquez MD Work Phone: 5(887)558-863952 [place] [address] 11-05-2024 13:04-0500 SaO2% (BldA) [Mass fraction] 91 % Dr. George Vázquez MD Work Phone: 3(828)608-622452 [place] [address] 11-05-2024 13:04-0500 Systolic blood pressure 121 mm[Hg] Dr. George Vázquez MD Work Phone: 3(346)623-878052 [place] [address] 10-28-2024 16:00-0500 Heart rate 90 /min Dr. George Vázquez MD Work Phone: 5(455)138-616752 [place] [address] 10-28-2024 16:00-0500 Respiratory rate 18 /min Dr. George Vázquez MD Work Phone: 6(998)754-134152 [place] [address] 10-28-2024 14:00-0500 Body temperature 98.1 [degF] Dr. George Vázquez MD Work Phone: 1(003)901-143752 [place] [address] 10-28-2024 14:00-0500 Diastolic blood pressure 80 mm[Hg] Dr. George Vázquez MD Work Phone: 1(711)624-082752 [place] [address] 10-28-2024 14:00-0500 SaO2% (BldA) [Mass fraction] 93 % Dr. George Vázquez MD Work Phone: 7(989)847-803352 [place] [address] 10-28-2024 14:00-0500 Systolic blood pressure 120 mm[Hg] Dr. George Vázquez MD Work Phone: 3(040)764-398252 [place] [address] 10-28-2024 03:40-0500 Inhaled oxygen flow rate 2 L/min Dr. George Vázquez MD Work Phone: 9(510)510-268652 [place] [address] 10-27-2024 16:50-0500 Body mass index (BMI) [Ratio] 27.9 kg/m2 Dr. George Vázquez MD Work Phone: 7(289)664-869052 [place] [address] 10-27-2024 16:50-0500 Body weight [address] George Vázquez MD Work Phone: 7(045)376-459252 [place] [address] 09-17-2024 19:48-0500 Body temperature 98.2 [degF] Dr. George Vázquez MD Work Phone: 6(176)108-512652 [place] [address] 09-17-2024 19:48-0500 Diastolic blood pressure 74 mm[Hg] Dr. George Vázquez MD Work Phone: [facility] 09-17-2024 19:48-0500 Heart rate 78 /min Dr. George Vázquez MD Work Phone: [facility] 09-17-2024 19:48-0500 Respiratory rate 16 /min Dr. George Vázquez MD Work Phone: [facility] 09-17-2024 19:48-0500 SaO2% (BldA) [Mass fraction] 99 % Dr. George Vázquez MD Work Phone: [facility] 09-17-2024 19:48-0500 Systolic blood pressure 124 mm[Hg] Dr. George Vázquez MD Work Phone: [facility] 09-17-2024 15:53-0500 Body mass index (BMI) [Ratio] 28 kg/m2 Dr. George Vázquez MD Work Phone: [facility] 09-17-2024 15:53-0500 Body weight 81.[address] George Vázquez MD Work Phone: [facility] 09-12-2024 16:01-0500 Body mass index (BMI) [Ratio] 28.38 kg/m2 George Vázquez MD Work Phone: [facility] 09-12-2024 16:01-0500 Body temperature 98.91 [degF] George Vázquez MD Work Phone: [facility] 09-12-2024 16:01-0500 Body weight 82.2 kg George Vázquez MD Work Phone: [facility] 09-12-2024 16:01-0500 Diastolic blood pressure 84 mm[Hg] George Vázquez MD Work Phone: [facility] 09-12-2024 16:01-0500 Heart rate 130 /min George Váqzuez MD Work Phone: [facility] 09-12-2024 16:01-0500 Respiratory rate 28 /min George Vázquez MD Work Phone: [facility] 09-12-2024 16:01-0500 SaO2% (BldA) [Mass fraction] 95 % George Vázquez MD Work Phone: [facility] 09-12-2024 16:01-0500 Systolic blood pressure 134 mm[Hg] George Vázquez MD Work Phone: [facility] 09-04-2024 15:37-0500 Body mass index (BMI) [Ratio] 28.62 kg/m2 George Vázquez MD Work Phone: [facility] 09-04-2024 15:37-0500 Body temperature 98.8 [degF] George Vázquez MD Work Phone: [facility] 09-04-2024 15:37-0500 Body weight 82.9 kg George Vázquez MD Work Phone: [facility] 09-04-2024 15:37-0500 Diastolic blood pressure 74 mm[Hg] George Vázquez MD Work Phone: [facility] 09-04-2024 15:37-0500 Heart rate 96 /min George Vázquez MD Work Phone: [facility] 09-04-2024 15:37-0500 Respiratory rate 20 /min George Vázquez MD Work Phone: [facility] 09-04-2024 15:37-0500 SaO2% (BldA) [Mass fraction] 91 % George Vázquez MD Work Phone: [facility] 09-04-2024 15:37-0500 Systolic blood pressure 128 mm[Hg] George Vázquez MD Work Phone: [facility] 08-30-2024 10:38-0400 Body mass index (BMI) [Ratio] 28.31 kg/m2 Prateek Matos APRN.CNP Work Phone: [facility] 08-30-2024 10:38-0400 Body temperature 97.81 [degF] Prateek Matos [employer] Work Phone: [facility] 08-30-2024 10:38-0400 Body weight 82 kg Prateek Shawna [employer] Work Phone: [facility] 08-30-2024 10:38-0400 Diastolic blood pressure 78 mm[Hg] Prateek Matos [employer] Work Phone: [facility] 08-30-2024 10:38-0400 Heart rate 106 /min Prateek Matos [employer] Work Phone: [facility] 08-30-2024 10:38-0400 Respiratory rate 24 /min Prateek Matos [employer] Work Phone: [facility] 08-30-2024 10:38-0400 SaO2% (BldA) [Mass fraction] 94 % Prateek Matos [employer] Work Phone: [facility] 08-30-2024 10:38-0400 Systolic blood pressure 130 mm[Hg] Prateek Matso [employer] Work Phone: [facility] 08-25-2024 10:06-0400 Body mass index (BMI) [Ratio] 27.62 kg/m2 Blanche Nevarez APRN.EQUIPMENT PLANNER Work Phone: [facility] 08-25-2024 10:06-0400 Body temperature 97.39 [degF] Blanche Nevarez APRN.EQUIPMENT PLANNER Work Phone: [facility] 08-25-2024 10:06-0400 Body weight 80 kg Blanche Nevarez APRN.EQUIPMENT PLANNER Work Phone: [facility] 08-25-2024 10:06-0400 Diastolic blood pressure 78 mm[Hg] Blanche Nevarez [employer] Work Phone: [facility] 08-25-2024 10:06-0400 Heart rate 83 /min Blanche Nevarez APRN.EQUIPMENT PLANNER Work Phone: [facility] 08-25-2024 10:06-0400 Respiratory rate 24 /min Blanche Nevarez APRN.EQUIPMENT PLANNER Work Phone: [facility] 08-25-2024 10:06-0400 SaO2% (BldA) [Mass fraction] 94 % Blanche Nevarez APRN.EQUIPMENT PLANNER Work Phone: [facility] 08-25-2024 10:06-0400 Systolic blood pressure 138 mm[Hg] Blanche Nevarez APRN.EQUIPMENT PLANNER Work Phone: [facility] 08-12-2024 08:52-0400 Body mass index (BMI) [Ratio] 27.69 kg/m2 Blanca MyersAlban [employer] Work Phone: [facility] 08-12-2024 08:52-0400 Body weight 80.2 kg Blanca DossAlban [employer] Work Phone: [facility] 08-12-2024 08:52-0400 Diastolic blood pressure 82 mm[Hg] Blanca DossAlban [employer] Work Phone: [facility] 08-12-2024 08:52-0400 Heart rate 91 /min Blanca DossAlban [employer]NER Work Phone: [facility] 08-12-2024 08:52-0400 Respiratory rate 20 /min Blanca DossAlban [employer]NER Work Phone: [facility] 08-12-2024 08:52-0400 Systolic blood pressure 125 mm[Hg] Blanca Alban [employer] Work Phone: [facility] 05-27-2024 12:02-0400 Body height 170.2 cm George Vázquez MD Work Phone: [facility] 05-27-2024 12:02-0400 Body mass index (BMI) [Ratio] 27.88 kg/m2 George Vázquez MD Work Phone: [facility] 05-27-2024 12:02-0400 Body temperature 98.6 [degF] George Vázquez MD Work Phone: [facility] 05-27-2024 12:02-0400 Body weight 80.74 kg George Vázquez MD Work Phone: [facility] 05-27-2024 12:02-0400 Diastolic blood pressure 72 mm[Hg] George Vázquez MD Work Phone: [facility] 05-27-2024 12:02-0400 Heart rate 80 /min George Vázquez MD Work Phone: [facility] 05-27-2024 12:02-0400 Respiratory rate 18 /min George Vázquez MD Work Phone: [facility] 05-27-2024 12:02-0400 Systolic blood pressure 116 mm[Hg] George Vázquez MD Work Phone: [facility] 11-23-2023 06:36-0500 Body height 170.[address] George Vázquez Work Phone: [facility] 11-23-2023 06:36-0500 Body mass index (BMI) [Ratio] 27.3 kg/m2 Dr. George Vázquez Work Phone: [facility] 11-23-2023 06:36-0500 Body temperature 97.4 [degF] Dr. George Vázquez Work Phone: [facility] 11-23-2023 06:36-0500 Body weight 79.[address] George Vázquez Work Phone: [facility] 11-23-2023 06:36-0500 Diastolic blood pressure 81 mm[Hg] Dr. George Vázquez Work Phone: [facility] 11-23-2023 06:36-0500 Heart rate 106 /min Dr. George Vázquez Work Phone: [facility] 11-23-2023 06:36-0500 Respiratory rate 20 /min Dr. George Vázquez Work Phone: 6(657)694-170452 [place] [address] 11-23-2023 06:36-0500 SaO2% (BldA) [Mass fraction] 93 % Dr. George Vázquez Work Phone: 3(604)088-929352 [place] [address] 11-23-2023 06:36-0500 Systolic blood pressure 128 mm[Hg] Dr. George Vázquez Work Phone: 9(757)808-179452 [place] [address] 11-10-2023 09:48-0500 Body mass index (BMI) [Ratio] 27.2 kg/m2 Dr. George Vázquez Work Phone: 8(379)895-282652 [place] [address] 11-10-2023 09:48-0500 Body weight 78.[address] George Vázquez Work Phone: 5(705)095-179352 [place] [address] 11-10-2023 09:48-0500 Diastolic blood pressure 81 mm[Hg] Dr. George Vázquez Work Phone: 0(564)661-807652 [place] [address] 11-10-2023 09:48-0500 Heart rate 94 /min Dr. George Vázquez Work Phone: 8(334)616-515252 [place] [address] 11-10-2023 09:48-0500 Respiratory rate 18 /min Dr. George Vázquez Work Phone: 6(013)422-112052 [place] [address] 11-10-2023 09:48-0500 Systolic blood pressure 117 mm[Hg] Dr. George Vázquez Work Phone: 8(386)000-866552 [place] [address] 08-07-2023 10:03-0400 Body height 170.[address] George Vázquez Work Phone: 5(488)046-860952 [place] [address] 08-07-2023 10:03-0400 Body mass index (BMI) [Ratio] 27.1 kg/m2 Dr. George Vázquez Work Phone: 0(293)342-464552 [place] [address] 08-07-2023 10:03-0400 Body weight 78.[address] George Vázquez Work Phone: 4(869)954-659552 [place] [address] 08-07-2023 10:03-0400 Diastolic blood pressure 67 mm[Hg] Dr. George Vázquez Work Phone: 8(401)511-642254 [place] [address] 08-07-2023 10:03-0400 Heart rate 98 /min Dr. George Vázquez Work Phone: 7(233)972-066954 [place] [address] 08-07-2023 10:03-0400 Respiratory rate 20 /min Dr. George Vázquez Work Phone: 6(326)625-064954 [place] [address] 08-07-2023 10:03-0400 SaO2% (BldA) [Mass fraction] 94 % Dr. George Vázquez Work Phone: 4(127)428-581952 [place] [address] 08-07-2023 10:03-0400 Systolic blood pressure 107 mm[Hg] Dr. George Vázquez Work Phone: 7(248)743-164752 [place] [address] 07-28-2023 08:23-0400 Body mass index (BMI) [Ratio] 27.3 kg/m2 Dr. George Vázquez Work Phone: 9(367)280-593452 [place] [address] 07-28-2023 08:23-0400 Body temperature 97.4 [degF] Dr. George Vázquez Work Phone: 0(905)710-785352 [place] [address] 07-28-2023 08:23-0400 Body weight 79.[address] George Vázquez Work Phone: 7(753)943-240152 [place] [address] 07-28-2023 08:23-0400 Diastolic blood pressure 87 mm[Hg] Dr. George Vázquez Work Phone: 6(771)534-554254 [place] [address] 07-28-2023 08:23-0400 Heart rate 80 /min Dr. George Vázquez Work Phone: 3(782)404-392754 [place] [address] 07-28-2023 08:23-0400 Respiratory rate 18 /min Dr. George Vázquez Work Phone: 4(607)663-890952 [place] [address] 07-28-2023 08:23-0400 SaO2% (BldA) [Mass fraction] 94 % Dr. George Vázquez Work Phone: 1(937)476-812152 [place] [address] 07-28-2023 08:23-0400 Systolic blood pressure 143 mm[Hg] Dr. George Vázquez Work Phone: 1(376)091-179154 [place] [address] 07-21-2023 10:53-0400 Body temperature 98.7 [degF] Dr. George Vázquez Work Phone: 5(016)729-252554 [place] [address] 07-21-2023 10:53-0400 Diastolic blood pressure 76 mm[Hg] Dr. George Vázquez Work Phone: 9(721)743-313252 [place] [address] 07-21-2023 10:53-0400 Heart rate 78 /min Dr. George Vázquez Work Phone: 9(521)495-980152 [place] [address] 07-21-2023 10:53-0400 SaO2% (BldA) [Mass fraction] 95 % Dr. George Vázquez Work Phone: 4(763)736-616152 [place] [address] 07-21-2023 10:53-0400 Systolic blood pressure 125 mm[Hg] Dr. George Vázquez Work Phone: 4(582)996-506252 [place] [address] 06-19-2023 14:23-0400 Body mass index (BMI) [Ratio] 27.3 kg/m2 Dr. George Vázquez Work Phone: 0(528)456-563152 [place] [address] 06-19-2023 14:23-0400 Body weight 79.[address] George Vázquez Work Phone: 8(514)496-753152 [place] [address] 06-19-2023 14:23-0400 Diastolic blood pressure 70 mm[Hg] Dr. George Vázquez Work Phone: 2(046)522-746654 [place] [address] 06-19-2023 14:23-0400 Heart rate 91 /min Dr. George Vázquez Work Phone: 4(835)464-116452 [place] [address] 06-19-2023 14:23-0400 Respiratory rate 18 /min Dr. George Vázquez Work Phone: 5(326)738-579954 [place] [address] 06-19-2023 14:23-0400 SaO2% (BldA) [Mass fraction] 94 % Dr. George Vázquez Work Phone: 8(467)923-270654 [place] [address] 06-19-2023 14:23-0400 Systolic blood pressure 104 mm[Hg] Dr. George Vázquez Work Phone: [facility] 05-24-2023 14:57-0400 Body height 169.2 cm George Vázquez MD Work Phone: [facility] 05-24-2023 14:57-0400 Body weight 78.93 kg George Vázquez MD Work Phone: [facility] 05-24-2023 14:57-0400 Diastolic blood pressure 64 mm[Hg] George Vázquez MD Work Phone: [facility] 05-24-2023 14:57-0400 Heart rate 96 /min George Vázquez MD Work Phone: [facility] 05-24-2023 14:57-0400 Respiratory rate 18 /min George Vázquez MD Work Phone: [facility] 05-24-2023 14:57-0400 SaO2% (BldA) [Mass fraction] 94 % George Vázquez MD Work Phone: [facility] 05-24-2023 14:57-0400 Systolic blood pressure 100 mm[Hg] George Vázquez MD Work Phone: [facility] 04-11-2023 13:02-0400 Body height 170.[address] George Vázquez Work Phone: [facility] 04-11-2023 13:02-0400 Body mass index (BMI) [Ratio] 26.6 kg/m2 Dr. George Vázquez Work Phone: [facility] 04-11-2023 13:02-0400 Body temperature 97.6 [degF] Dr. George Vázquez Work Phone: [facility] 04-11-2023 13:02-0400 Body weight 77.[address] George Vázquez Work Phone: [facility] 04-11-2023 13:02-0400 Diastolic blood pressure 64 mm[Hg] Dr. George Vázquez Work Phone: 4(898)016-325454 [place] [address] 04-11-2023 13:02-0400 Heart rate 85 /min Dr. George Vázquez Work Phone: 0(963)794-595452 [place] [address] 04-11-2023 13:02-0400 Respiratory rate 18 /min Dr. George Vázquez Work Phone: 7(697)540-751552 [place] [address] 04-11-2023 13:02-0400 SaO2% (BldA) [Mass fraction] 96 % Dr. George Vázquez Work Phone: 9(519)233-550352 [place] [address] 04-11-2023 13:02-0400 Systolic blood pressure 99 mm[Hg] Dr. George Vázquez Work Phone: 1(381)175-936552 [place] [address] 04-11-2023 09:20-0400 Body mass index (BMI) [Ratio] 26.9 kg/m2 Dr. George Vázquez Work Phone: 4(457)730-201752 [place] [address] 04-11-2023 09:20-0400 Body weight 78.[address] George Vázquez Work Phone: 0(093)202-244152 [place] [address] 04-11-2023 09:20-0400 Diastolic blood pressure 57 mm[Hg] Dr. George Vázquez Work Phone: 0(962)878-050352 [place] [address] 04-11-2023 09:20-0400 Heart rate 82 /min Dr. George Vázquez Work Phone: 5(882)002-564152 [place] [address] 04-11-2023 09:20-0400 Respiratory rate 18 /min Dr. George Vázquez Work Phone: 2(026)646-989552 [place] [address] 04-11-2023 09:20-0400 Systolic blood pressure 129 mm[Hg] Dr. George Vázquez Work Phone: 8(091)680-364552 [place] [address] 03-17-2023 17:08-0400 Diastolic blood pressure 83 mm[Hg] Dr. George Vázquez Work Phone: 6(684)[phone] [place] [address] 03-17-2023 17:08-0400 Heart rate 76 /min Dr. George Vázquez Work Phone: 1(877)963-924152 [place] [address] 03-17-2023 17:08-0400 Respiratory rate 14 /min Dr. George Vázquez Work Phone: 6(082)466-105752 [place] [address] 03-17-2023 17:08-0400 SaO2% (BldA) [Mass fraction] 96 % Dr. George Vázquez Work Phone: 2(194)[phone] [place] [address] 03-17-2023 17:08-0400 Systolic blood pressure 138 mm[Hg] Dr. George Vázquez Work Phone: 9(054)416-482952 [place] [address] 03-17-2023 15:33-0400 Body height 170.[address] George Vázquez Work Phone: 9(426)711-047652 [place] [address] 03-17-2023 15:33-0400 Body temperature 98 [degF] Dr. George Vázquez Work Phone: 5(732)359-181552 [place] [address] 03-17-2023 14:51-0400 Body mass index (BMI) [Ratio] 27.6 kg/m2 Dr. George Vázquez Work Phone: 2(780)189-685152 [place] [address] 03-17-2023 14:51-0400 Body temperature 97.6 [degF] Dr. George Vázquez Work Phone: 3(892)476-143152 [place] [address] 03-17-2023 14:51-0400 Body weight 79.[address] George Vázquez Work Phone: 8(545)427-236752 [place] [address] 03-17-2023 14:51-0400 Diastolic blood pressure 93 mm[Hg] Dr. George Vázquez Work Phone: 2(708)006-755052 [place] [address] 03-17-2023 14:51-0400 Heart rate 108 /min Dr. George Vázquez Work Phone: 6(145)546-244252 [place] [address] 03-17-2023 14:51-0400 Respiratory rate 18 /min Dr. George Vázquez Work Phone: 0(009)084-503752 [place] [address] 03-17-2023 14:51-0400 SaO2% (BldA) [Mass fraction] 95 % Dr. George Vázquez Work Phone: [facility] 03-17-2023 14:51-0400 Systolic blood pressure 137 mm[Hg] Dr. George Vázquez Work Phone: [facility] 02-03-2023 08:24-0400 Body height 170.[address] George Vázquez Work Phone: [facility] 02-03-2023 08:24-0400 Body mass index (BMI) [Ratio] 27.3 kg/m2 Dr. George Vázquez Work Phone: [facility] 02-03-2023 08:24-0400 Body temperature 97.6 [degF] Dr. George Vázquez Work Phone: [facility] 02-03-2023 08:24-0400 Body weight 79.[address] George Vázquez Work Phone: [facility] 02-03-2023 08:24-0400 Diastolic blood pressure 69 mm[Hg] Dr. George Vázquez Work Phone: [facility] 02-03-2023 08:24-0400 Heart rate 96 /min Dr. George Vázquez Work Phone: [facility] 02-03-2023 08:24-0400 Respiratory rate 16 /min Dr. George Vázquez Work Phone: [facility] 02-03-2023 08:24-0400 SaO2% (BldA) [Mass fraction] 95 % Dr. George Vázquez Work Phone: [facility] 02-03-2023 08:24-0400 Systolic blood pressure 121 mm[Hg] Dr. George Vázquez Work Phone: [facility] 01-18-2023 15:55-0400 Diastolic blood pressure 95 mm[Hg] George Vázquez MD Work Phone: [facility] 01-18-2023 15:55-0400 Heart rate 81 /min George Vázquez MD Work Phone: [facility] 01-18-2023 15:55-0400 Systolic blood pressure 162 mm[Hg] George Vázquez MD Work Phone: [facility] 01-18-2023 15:45-0400 Body weight 81.65 kg George Vázquez MD Work Phone: [facility] 01-18-2023 15:45-0400 Respiratory rate 16 /min George Vázquez MD Work Phone: [facility] 01-18-2023 15:45-0400 SaO2% (BldA) [Mass fraction] 95 % George Vázquez MD Work Phone: [facility] 01-13-2023 14:44-0400 Body mass index (BMI) [Ratio] 28 kg/m2 Dr. George Vázquez Work Phone: [facility] 01-13-2023 14:44-0400 Body weight 81.[address] George Vázquez Work Phone: [facility] 01-13-2023 14:44-0400 Diastolic blood pressure 89 mm[Hg] Dr. George Vázquez Work Phone: [facility] 01-13-2023 14:44-0400 Heart rate 88 /min Dr. George Vázquez Work Phone: [facility] 01-13-2023 14:44-0400 SaO2% (BldA) [Mass fraction] 94 % Dr. George Vázquez Work Phone: [facility] 01-13-2023 14:44-0400 Systolic blood pressure 136 mm[Hg] Dr. George Vázquez Work Phone: [facility] 12-28-2022 08:45-0500 Body temperature 98.5 [degF] Dr. Georeg Vázquez Work Phone: [facility] 12-28-2022 08:45-0500 Diastolic blood pressure 85 mm[Hg] Dr. George Vázquez Work Phone: 9(839)495-711152 [place] [address] 12-28-2022 08:45-0500 Heart rate 87 /min Dr. George Vázquez Work Phone: 0(632)862-646552 [place] [address] 12-28-2022 08:45-0500 Respiratory rate 16 /min Dr. George Vázquez Work Phone: 4(170)122-306152 [place] [address] 12-28-2022 08:45-0500 SaO2% (BldA) [Mass fraction] 95 % Dr. George Vázquez Work Phone: 8(052)423-365652 [place] [address] 12-28-2022 08:45-0500 Systolic blood pressure 131 mm[Hg] Dr. George Vázquez Work Phone: 3(629)645-335152 [place] [address] 12-28-2022 07:05-0500 Body mass index (BMI) [Ratio] 27.7 kg/m2 Dr. George Vázquez Work Phone: 8(668)775-555352 [place] [address] 12-28-2022 07:05-0500 Body weight 80.[address] George Vázquez Work Phone: 5(258)571-884052 [place] [address] 12-22-2022 15:01-0500 Body mass index (BMI) [Ratio] 26.9 kg/m2 Dr. George Vázquez Work Phone: 3(188)736-296352 [place] [address] 12-22-2022 15:01-0500 Body weight 78.[address] George Vázquez Work Phone: 8(453)979-550352 [place] [address] 12-22-2022 15:01-0500 Diastolic blood pressure 60 mm[Hg] Dr. George Vázquez Work Phone: 6(435)983-015952 [place] [address] 12-22-2022 15:01-0500 Heart rate 88 /min Dr. George Vázquez Work Phone: 2(104)146-606552 [place] [address] 12-22-2022 15:01-0500 Respiratory rate 16 /min Dr. George Vázquez Work Phone: 5(212)093-662052 [place] [address] 12-22-2022 15:01-0500 Systolic blood pressure 102 mm[Hg] Dr. George Vázquez Work Phone: 9(683)262-823852 [place] [address] 12-02-2022 16:45-0500 Body temperature 97.8 [degF] Dr. George Vázquez Work Phone: 2(092)593-310552 [place] [address] 12-02-2022 16:45-0500 Diastolic blood pressure 81 mm[Hg] Dr. George Vázquez Work Phone: 6(341)846-417852 [place] [address] 12-02-2022 16:45-0500 Heart rate 88 /min Dr. George Vázquez Work Phone: 8(108)556-796652 [place] [address] 12-02-2022 16:45-0500 Respiratory rate 16 /min Dr. George Vázquez Work Phone: 5(462)759-251252 [place] [address] 12-02-2022 16:45-0500 SaO2% (BldA) [Mass fraction] 91 % Dr. George Vázquez Work Phone: 3(629)877-783752 [place] [address] 12-02-2022 16:45-0500 Systolic blood pressure 114 mm[Hg] Dr. George Vázquez Work Phone: 2(416)747-938852 [place] [address] 12-02-2022 15:44-0500 Inhaled oxygen flow rate 2 L/min Dr. George Vázquez Work Phone: 8(924)605-137452 [place] [address] 12-02-2022 10:41-0500 Body height 170.[address] George Vázquez Work Phone: 6(648)840-388852 [place] [address] 12-02-2022 10:41-0500 Body mass index (BMI) [Ratio] 27.2 kg/m2 Dr. George Vázquez Work Phone: 7(213)412-924852 [place] [address] 12-02-2022 10:41-0500 Body weight [address] George Vázquez Work Phone: 8(512)219-638152 [place] [address] 12-01-2022 07:56-0500 Body mass index (BMI) [Ratio] 27.7 kg/m2 Dr. George Vázquez Work Phone: [facility] 12-01-2022 07:56-0500 Body temperature 97.4 [degF] Dr. George Vázquez Work Phone: [facility] 12-01-2022 07:56-0500 Body weight 80.[address] George Vázquez Work Phone: 1(931)168-295954 [place] [address] 12-01-2022 07:56-0500 Diastolic blood pressure 72 mm[Hg] Dr. George Vázquez Work Phone: 2(009)038-669854 [place] [address] 12-01-2022 07:56-0500 Heart rate 83 /min Dr. George Vázquez Work Phone: 1(324)000-223554 [place] [address] 12-01-2022 07:56-0500 Respiratory rate 17 /min Dr. George Vázquez Work Phone: 4(316)460-630452 [place] [address] 12-01-2022 07:56-0500 SaO2% (BldA) [Mass fraction] 93 % Dr. George Vázquez Work Phone: 5(749)819-241054 [place] [address] 12-01-2022 07:56-0500 Systolic blood pressure 127 mm[Hg] Dr. George Vázquez Work Phone: [facility] 11-22-2022 14:20-0500 Body temperature 98.91 [degF] Krislyn Aberegg PA Work Phone: [facility] 11-22-2022 14:20-0500 Diastolic blood pressure 76 mm[Hg] Krislyn Aberegg PA Work Phone: [facility] 11-22-2022 14:20-0500 Heart rate 94 /min Krislyn Aberegg PA Work Phone: [facility] 11-22-2022 14:20-0500 Respiratory rate 18 /min Krislyn Aberegg PA Work Phone: [facility] 11-22-2022 14:20-0500 SaO2% (BldA) [Mass fraction] 96 % Krislyn Aberegg PA Work Phone: [facility] 11-22-2022 14:20-0500 Systolic blood pressure 134 mm[Hg] Kelly DURAN Work Phone: [facility] 11-15-2022 08:59-0500 Body mass index (BMI) [Ratio] 26.6 kg/m2 Dr. George Vázquez Work Phone: 8(037)045-268954 [place] [address] 11-15-2022 08:59-0500 Body temperature 97.8 [degF] Dr. George Vázquez Work Phone: 2(386)562-848352 [place] [address] 11-15-2022 08:59-0500 Body weight 77.[address] George Vázquez Work Phone: 2(369)380-306152 [place] [address] 11-15-2022 08:59-0500 Diastolic blood pressure 89 mm[Hg] Dr. George Vázquez Work Phone: 1(775)470-168954 [place] [address] 11-15-2022 08:59-0500 Heart rate 84 /min Dr. George Vázquez Work Phone: 1(295)775-417152 [place] [address] 11-15-2022 08:59-0500 Respiratory rate 18 /min Dr. George Vázquez Work Phone: 9(099)003-286352 [place] [address] 11-15-2022 08:59-0500 SaO2% (BldA) [Mass fraction] 94 % Dr. George Vázquez Work Phone: 2(344)391-684054 [place] [address] 11-15-2022 08:59-0500 Systolic blood pressure 126 mm[Hg] Dr. George Vázquez Work Phone: 1(411)033-890452 [place] [address] 10-30-2022 11:22-0500 Heart rate 81 /min Dr. George Vázquez Work Phone: 5(351)872-418952 [place] [address] 10-30-2022 11:22-0500 Respiratory rate 19 /min Dr. George Vázquez Work Phone: 1(527)621-431654 [place] [address] 10-30-2022 10:00-0500 Body temperature 97.8 [degF] Dr. George Vázquez Work Phone: 7(164)990-941854 [place] [address] 10-30-2022 10:00-0500 Diastolic blood pressure 72 mm[Hg] Dr. George Vázquez Work Phone: 0(280)491-408752 [place] [address] 10-30-2022 10:00-0500 Inhaled oxygen flow rate 2 L/min Dr. George Vázquez Work Phone: 4(020)147-795052 [place] [address] 10-30-2022 10:00-0500 SaO2% (BldA) [Mass fraction] 93 % Dr. George Vázquez Work Phone: 7(848)428-157852 [place] [address] 10-30-2022 10:00-0500 Systolic blood pressure 119 mm[Hg] Dr. George Vázquez Work Phone: 9(000)831-179452 [place] [address] 10-30-2022 06:00-0500 Body weight 78.[address] George Vázquez Work Phone: 9(350)680-916252 [place] [address] 10-28-2022 05:01-0500 Body mass index (BMI) [Ratio] 26.6 kg/m2 Dr. George Vázquez Work Phone: 6(967)876-186152 [place] [address] 10-28-2022 03:44-0500 Body temperature 98.6 [degF] Dr. George Vázquez Work Phone: 2(153)034-755454 [place] [address] Work Phone: 10-28-2022 03:44-0500 Diastolic blood pressure 99 mm[Hg] Dr. George Vázquez Work Phone: [facility] Work Phone: 10-28-2022 03:44-0500 Heart rate 120 /min Dr. George Vázquez Work Phone: [facility] Work Phone: 10-28-2022 03:44-0500 Inhaled oxygen flow rate 2 L/min Dr. George Vázquez Work Phone: [facility] Work Phone: 10-28-2022 03:44-0500 Respiratory rate 25 /min Dr. George Vázquez Work Phone: [facility] Work Phone: 10-28-2022 03:44-0500 SaO2% (BldA) [Mass fraction] 95 % Dr. George Vázquez Work Phone: [facility] Work Phone: 10-28-2022 03:44-0500 Systolic blood pressure 138 mm[Hg] Dr. George Vázquez Work Phone: [facility] Work Phone: 10-28-2022 02:41-0500 Body height 170.[address] George Vázquez Work Phone: [facility] Work Phone: 10-28-2022 02:41-0500 Body mass index (BMI) [Ratio] 26.4 kg/m2 Dr. George Vázquez Work Phone: [facility] Work Phone: 10-28-2022 02:41-0500 Body weight 76.[address] George Vázquez Work Phone: [facility] Work Phone: 10-25-2022 13:03-0500 Body mass index (BMI) [Ratio] 27.2 kg/m2 Dr. George Vázquez Work Phone: [facility] 10-25-2022 13:03-0500 Body weight 78.[address] George Vázquez Work Phone: [facility] 10-25-2022 13:03-0500 Diastolic blood pressure 77 mm[Hg] Dr. George Vázquez Work Phone: [facility] 10-25-2022 13:03-0500 Heart rate 90 /min Dr. George Vázquez Work Phone: [facility] 10-25-2022 13:03-0500 SaO2% (BldA) [Mass fraction] 93 % Dr. George Vázquez Work Phone: [facility] 10-25-2022 13:03-0500 Systolic blood pressure 119 mm[Hg] Dr. George Vázquez Work Phone: [facility] 08-04-2022 12:38-0400 Body height 170.[address] George Vázquez Work Phone: [facility] Work Phone: 08-04-2022 12:30-0400 Body mass index (BMI) [Ratio] 26 kg/m2 Dr. George Vázquez Work Phone: [facility] Work Phone: 08-04-2022 12:30-0400 Body temperature 97.9 [degF] Dr. George Vázquez Work Phone: [facility] Work Phone: 08-04-2022 12:30-0400 Body weight 75.[address] George Vázquez Work Phone: [facility] Work Phone: 08-04-2022 12:30-0400 Diastolic blood pressure 61 mm[Hg] Dr. George Vázquez Work Phone: [facility] Work Phone: 08-04-2022 12:30-0400 Heart rate 86 /min Dr. George Vázquez Work Phone: [facility] Work Phone: 08-04-2022 12:30-0400 Respiratory rate 16 /min Dr. George Vázquez Work Phone: [facility] Work Phone: 08-04-2022 12:30-0400 SaO2% (BldA) [Mass fraction] 90 % Dr. George Vázquez Work Phone: [facility] Work Phone: 08-04-2022 12:30-0400 Systolic blood pressure 94 mm[Hg] Dr. George Vázquez Work Phone: [facility] Work Phone: 07-28-2022 15:57-0400 Body temperature 98.49 [degF] George Vázquez MD Work Phone: [facility] 07-28-2022 15:57-0400 Body weight 76.66 kg George Vázquez MD Work Phone: [facility] 07-28-2022 15:57-0400 Diastolic blood pressure 68 mm[Hg] George Vázquez MD Work Phone: [facility] 07-28-2022 15:57-0400 Heart rate 96 /min George Vázquez MD Work Phone: [facility] 07-28-2022 15:57-0400 Respiratory rate 20 /min George Vázquez MD Work Phone: [facility] 07-28-2022 15:57-0400 SaO2% (BldA) [Mass fraction] 93 % George Vázquez MD Work Phone: [facility] 07-28-2022 15:57-0400 Systolic blood pressure 124 mm[Hg] George Vázquez MD Work Phone: [facility] 07-15-2022 09:04-0400 Body temperature 98.29 [degF] Michelle Athy PA-C Work Phone: [facility] 07-15-2022 09:04-0400 Body weight 80.38 kg Michelle Athy PA-C Work Phone: [facility] 07-15-2022 09:04-0400 Diastolic blood pressure 80 mm[Hg] Michelle Athy PA-C Work Phone: [facility] 07-15-2022 09:04-0400 Heart rate 106 /min Michelle Athy PA-C Work Phone: [facility] 07-15-2022 09:04-0400 Respiratory rate 22 /min Michelle Gormanzeke PA-C Work Phone: [facility] 07-15-2022 09:04-0400 SaO2% (BldA) [Mass fraction] 92 % Michelle Gormany PA-C Work Phone: [facility] 07-15-2022 09:04-0400 Systolic blood pressure 132 mm[Hg] Michelle Gormanzeke PA-C Work Phone: [facility] 07-13-2022 18:44-0400 Diastolic blood pressure 67 mm[Hg] Dr. George Vázquez Work Phone: [facility] Work Phone: 07-13-2022 18:44-0400 Heart rate 82 /min Dr. George Vázquez Work Phone: [facility] Work Phone: 07-13-2022 18:44-0400 Respiratory rate 16 /min Dr. George Vázquez Work Phone: [facility] Work Phone: 07-13-2022 18:44-0400 SaO2% (BldA) [Mass fraction] 95 % Dr. George Vázquez Work Phone: [facility] Work Phone: 07-13-2022 18:44-0400 Systolic blood pressure 147 mm[Hg] Dr. George Vázquez Work Phone: [facility] Work Phone: 07-13-2022 16:46-0400 Body height 170.[address] George Vázquez Work Phone: [facility] Work Phone: 07-13-2022 16:46-0400 Body mass index (BMI) [Ratio] 26.9 kg/m2 Dr. George Vázquez Work Phone: [facility] Work Phone: 07-13-2022 16:46-0400 Body temperature 97.6 [degF] Dr. George Vázquez Work Phone: [facility] Work Phone: 07-13-2022 16:46-0400 Body weight 78.[address] George Vázquez Work Phone: [facility] Work Phone: 07-05-2022 11:02-0400 Body temperature 98.01 [degF] Edson Praisler[employer] Work Phone: [facility] 07-05-2022 11:02-0400 Body weight 77.93 kg Edson Praisler[employer] Work Phone: [facility] 07-05-2022 11:02-0400 Diastolic blood pressure 78 mm[Hg] Edson Praisler[employer] Work Phone: [facility] 07-05-2022 11:02-0400 Heart rate 83 /min Edson Praisler[employer] Work Phone: [facility] 07-05-2022 11:02-0400 Respiratory rate 18 /min Edson Praisler[employer] Work Phone: [facility] 07-05-2022 11:02-0400 SaO2% (BldA) [Mass fraction] 97 % Edson P[employer]ler[employer] Work Phone: [facility] 07-05-2022 11:02-0400 Systolic blood pressure 124 mm[Hg] Edson P[employer]ler[employer] Work Phone: [facility] 07-04-2022 10:45-0400 SaO2% (BldA) [Mass fraction] 96 % Sharon Zamora PA-C Work Phone: [facility] 07-04-2022 10:35-0400 Body temperature 98.1 [degF] Sharon Zamora PA-C Work Phone: [facility] 07-04-2022 10:35-0400 Body weight 78.2 kg Sharonsondra Patinoaugh PA-C Work Phone: [facility] 07-04-2022 10:35-0400 Diastolic blood pressure 82 mm[Hg] Sharonsondra Patinoaugh PA-C Work Phone: [facility] 07-04-2022 10:35-0400 Heart rate 95 /min Sharonsondra Patinoaugh PA-C Work Phone: [facility] 07-04-2022 10:35-0400 Respiratory rate 18 /min Sharonsondra Patinoaugh PA-C Work Phone: [facility] 07-04-2022 10:35-0400 Systolic blood pressure 120 mm[Hg] Sharonsondra Patinoaugh PA-C Work Phone: [facility] 05-25-2022 08:36-0400 Body height 170.[address] George Vázquez Work Phone: [facility] Work Phone: 05-25-2022 08:36-0400 Body mass index (BMI) [Ratio] 27.3 kg/m2 Dr. George Vázquez Work Phone: [facility] Work Phone: 05-25-2022 08:36-0400 Body temperature 97.9 [degF] Dr. George Vázquez Work Phone: [facility] Work Phone: 05-25-2022 08:36-0400 Body weight 79.[address] George Vázquez Work Phone: [facility] Work Phone: 05-25-2022 08:36-0400 Diastolic blood pressure 80 mm[Hg] Dr. George Vázquez Work Phone: [facility] Work Phone: 05-25-2022 08:36-0400 Heart rate 95 /min Dr. George Vázquez Work Phone: [facility] Work Phone: 05-25-2022 08:36-0400 Respiratory rate 17 /min Dr. George Vázquez Work Phone: [facility] Work Phone: 05-25-2022 08:36-0400 SaO2% (BldA) [Mass fraction] 94 % Dr. George Vázquez Work Phone: [facility] Work Phone: 05-25-2022 08:36-0400 Systolic blood pressure 116 mm[Hg] Dr. George Vázquez Work Phone: [facility] Work Phone: 02-27-2022 00:19-0400 Body weight 82.[address] George Vázquez Work Phone: [facility] Work Phone: 02-14-2022 15:06-0400 Body mass index (BMI) [Ratio] 29.2 kg/m2 Dr. George Vázquez Work Phone: [facility] Work Phone: 02-14-2022 15:06-0400 Body weight 84.[address] George Vázquez Work Phone: [facility] Work Phone: 02-14-2022 15:06-0400 Diastolic blood pressure 64 mm[Hg] Dr. George Vázquez Work Phone: [facility] Work Phone: 02-14-2022 15:06-0400 Heart rate 85 /min Dr. George Vázquez Work Phone: [facility] Work Phone: 02-14-2022 15:06-0400 Respiratory rate 18 /min Dr. George Vázquez Work Phone: [facility] Work Phone: 02-14-2022 15:06-0400 Systolic blood pressure 103 mm[Hg] Dr. George Vázquez Work Phone: [facility] Work Phone: 02-14-2022 15:06-0400 Body height 170.[address] George Vázquez Work Phone: [facility] Work Phone: 02-14-2022 15:06-0400 Body mass index (BMI) [Ratio] 29.2 kg/m2 Dr. George Vázquez Work Phone: [facility] Work Phone: 02-14-2022 15:06-0400 Body weight 84.[address] George Vázquez Work Phone: [facility] Work Phone: 02-14-2022 15:06-0400 Diastolic blood pressure 64 mm[Hg] Dr. George Vázquez Work Phone: [facility] Work Phone: 02-14-2022 15:06-0400 Heart rate 85 /min Dr. George Vázquez Work Phone: [facility] Work Phone: 02-14-2022 15:06-0400 Respiratory rate 18 /min Dr. George Vázquez Work Phone: [facility] Work Phone: 02-14-2022 15:06-0400 Systolic blood pressure 103 mm[Hg] Dr. George Vázquez Work Phone: [facility] Work Phone: 02-14-2022 13:29-0400 Body weight 82.[address] George Vázquez Work Phone: [facility] Work Phone: 02-14-2022 13:29-0400 Body weight 82.[address] George Vázquez Work Phone: [facility] Work Phone: 02-01-2022 13:21-0400 Body mass index (BMI) [Ratio] 28.6 kg/m2 Dr. George Vázquez Work Phone: [facility] Work Phone: 02-01-2022 13:21-0400 Body temperature 98 [degF] Dr. George Vázquez Work Phone: [facility] Work Phone: 02-01-2022 13:21-0400 Body weight [address] George Vázquez Work Phone: [facility] Work Phone: 02-01-2022 13:21-0400 Diastolic blood pressure 69 mm[Hg] Dr. George Vázquez Work Phone: [facility] Work Phone: 02-01-2022 13:21-0400 Heart rate 97 /min Dr. George Vázquez Work Phone: [facility] Work Phone: 02-01-2022 13:21-0400 Respiratory rate 18 /min Dr. George Vázquez Work Phone: [facility] Work Phone: 02-01-2022 13:21-0400 SaO2% (BldA) [Mass fraction] 93 % Dr. George Vázquez Work Phone: [facility] Work Phone: 02-01-2022 13:21-0400 Systolic blood pressure 103 mm[Hg] Dr. George Vázquez Work Phone: [facility] Work Phone: 01-17-2022 10:26-0400 Body height 170.[address] George Vázquez Work Phone: [facility] Work Phone: 01-17-2022 10:26-0400 Body weight 82.[address] George Vázquez Work Phone: [facility] Work Phone: 12-22-2021 09:26-0500 Body weight 83.[address] George Vázquez Work Phone: [facility] Work Phone: 11-22-2021 13:45-0500 Body mass index (BMI) [Ratio] 28.1 kg/m2 Dr. George Vázquez Work Phone: [facility] Work Phone: 11-22-2021 13:45-0500 Body weight 81.[address] George Vázquez Work Phone: [facility] Work Phone: 11-22-2021 13:45-0500 Diastolic blood pressure 60 mm[Hg] Dr. George Vázquez Work Phone: [facility] Work Phone: 11-22-2021 13:45-0500 Heart rate 72 /min Dr. George Vázquez Work Phone: [facility] Work Phone: 11-22-2021 13:45-0500 SaO2% (BldA) [Mass fraction] 94 % Dr. George Vázquez Work Phone: [facility] Work Phone: 11-22-2021 13:45-0500 Systolic blood pressure 106 mm[Hg] Dr. George Vázquez Work Phone: [facility] Work Phone: 11-15-2021 13:52-0500 Diastolic blood pressure 64 mm[Hg] [facility]. [facility]quez Work Phone[facility] [facility] Work Phone: 11-15-2021 13:52-0500 Heart rate 76 /min Dr. George Vázquez Work Phone: [facility] Work Phone: 11-15-2021 13:52-0500 Systolic blood pressure 113 mm[Hg] Dr. George Vázquez Work Phone: [facility] Work Phone: 10-04-2021 14:30-0500 Body weight 81.[address] George Vázquez Work Phone: [facility] Work Phone: 10-04-2021 14:30-0500 Diastolic blood pressure 78 mm[Hg] Dr. George Vázquez Work Phone: [facility] Work Phone: 10-04-2021 14:30-0500 Heart rate 84 /min Dr. George Vázquez Work Phone: [facility] Work Phone: 10-04-2021 14:30-0500 Respiratory rate 16 /min Dr. George Vázquez Work Phone: [facility] Work Phone: 10-04-2021 14:30-0500 Systolic blood pressure 108 mm[Hg] Dr. George Vázquez Work Phone: [facility] Work Phone: 09-28-2021 23:31-0500 Body weight 82.[address] George Vázquez Work Phone: [facility] Work Phone: 10-05-2020 14:25-0500 Body mass index (BMI) [Ratio] 28.6 kg/m2 Dr. George Vázquez Work Phone: [facility] Work Phone: Encounters Encounter Date Encounter Type Care Provider Facility Start: 09-01-2025 End: 09-01-2025 ambulatory GEORGE VÁZQUEZ Facility:[facility] Start: 08-29-2025 ambulatory George Vázquez Facili ty:[facility] Start: 08-25-2025 ambulatory Michael Narayan Facility :[facility] Start: 08-18-2025 End: 08-18-2025 ambulatory GEORGE VÁZQUEZ Facility:[facility] Start: 08-15-2025 End: 08-15-2025 ambulatory GEORGE VÁZQUEZ Facility:[facility] Start: 07-21-2025 End: 07-21-[address] Michael Narayan DO -[facility] Work Phone: Start: 07-21-2025 End: 07-21-[address] George Vázquez MD Work Phone: -[facility] Start: 07-15-2025 ambulatory LOW BRYANT V Facility :[facility] Start: 07-15-2025 End: 07-15-2025 Subsequent hospital visit by physician Mri Radio [facility] (I-Stat/1.5t) Work Phone: Radiology Comment on above: Encounter for screen ing for other musculoskeletal disorder [Z13.828] Start: 07-08-2025 End: 07-08-2025 Patient encounter procedure Low Bryant DO Work Phone: [facility] [place] Comment on above: Acute right hip pain ; Trochanteric bursitis of right hip; Unilateral primary osteoarthritis, right hip Start: 07-08-2025 End: 07-08-2025 ambulatory LOW BRYANT V Facility:[facility] Start: 07-07-2025 End: 07-07-2025 Office outpatient visit 15 minutes Blanca Tilley APRN.CNP Work Phone: Internal [facility] [place] Comment on above: Acute right hip pain (Primary Dx); Primary osteoarthritis of right hip; Calcific tendinitis of right hip Start: 07-07-2025 End: 07-07-2025 ambulatory GEORGE VÁZQUEZ Facility:[facility] Start: 07-03-2025 End: 07-03-2025 Subsequent hospital visit by physician Xr [facility] [place] Work Phone: Radiology Comment on above: Pain of right hip [M 25.551] Start: 07-03-2025 End: 07-03-2025 Office outpatient visit 15 minutes Prateek Matos APRN.CNP Work Phone: [facility] [place] Comment on above: Pain of right hip (P rimary Dx) Start: 07-03-2025 End: 07-03-2025 ambulatory PRATEEK MATOS Facility:[facility] Start: 06-14-2025 End: 06-14-[address] George Vázquez MD Work Phone: -Cat Scan [facility] Start: 06-14-2025 End: 06-14-2025 Patient encounter procedure Radha Roberts SOLAR WATER HEATER INSTALLER-C -Cat Scan [facility] Work Phone: Start: 06-14-2025 End: 06-14-2025 ambulatory Radha Roberts NP Facility:[facility] Start: 05-28-2025 End: 05-28-2025 ambulatory GEORGE VÁZQUEZ Facility:[facility] Start: 05-28-2025 End: 05-28-2025 Patient encounter procedure George Vázquez MD Work Phone: Internal [facility] [place] Comment on above: Medicare annual well ness visit, subsequent (Primary Dx); Coronary artery disease involving [place] coronary artery of [place] heart without angina pectoris; Hyperlipidemia, unspecified hyperlipidemia [...] End: 05-05-2025 Patient encounter procedure Daniel Saeed SOLAR WATER HEATER INSTALLER-C -[facility] Work Phone: Start: 05-05-2025 End: 05-05-[address] George Vázquez MD Work Phone: -[facility] [facility] Start: 05-03-2025 End: 05-03-[address] George Vázquez MD Work Phone: -Laboratory Start: 05-03-2025 End: 05-03-2025 Patient encounter procedure Bhupendra Demiter PA -Laboratory Work Phone: Start: 05-03-2025 End: 05-03-2025 ambulatory Bhupendra Demiter Facility:[facility] Start: 02-14-2025 End: 02-14-[address] Neptali Orellana MD -Laboratory Work Phone: Start: 02-14-2025 End: 02-14-2025 ambulatory George Vázquez Facility:[facility] Start: 02-05-2025 Non-patient / Non-visit Dr. Salvador miranda MD -[facility] Start: 02-05-2025 End: 02-05-[address] George Vázquez MD Work Phone: [facility] Work Phone: Start: 02-05-2025 End: 02-05-2025 Patient encounter procedure Bhupendra Demiter PA -Cardiovascular Services Work Phone: Start: 02-05-2025 End: 02-05-2025 ambulatory Bhupendra Demiter Facility:[facility] Start: 01-30-2025 End: 01-30-2025 Refill George Vázquez MD Work Phone: Internal Medicine [place] Comment on above: Med Change Request Start: 01-20-2025 End: 01-20-2025 Patient encounter procedure Bhupendra Demiter PA -[facility] Work Phone: Start: 01-20-2025 End: 01-20-2025 ambulatory Bhupendra Demiter Facility:[facility] Start: 01-10-2025 End: 01-10-2025 Follow-up encounter George Vázquez MD Work Phone: [facility] [place] Start: 01-08-2025 End: 01-08-2025 ambulatory GEORGE VÁZQUEZ Facility:[facility] Start: 01-08-2025 End: 01-08-2025 Office outpatient visit 25 minutes George Vázquez MD Work Phone: [facility] [place] Comment on above: 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 Carrillo Malave MD -[facility] Work Phone: Start: 01-08-2025 End: 01-08-[address] George Vázquez MD Work Phone: [facility] Work Phone: Start: 01-08-2025 End: 01-08-2025 ambulatory Carrillo Malave Facility:[facility] Start: 12-09-2024 End: 12-09-2024 ambulatory Venita Quezada MA [facility] [place] Start: 12-09-2024 End: 12-09-2024 Patient encounter procedure Venita Quezada MA [facility] Comment on above: Population Health Na vigation Outreach ([place] Start: 11-27-2024 End: 11-27-[address] Neptali Orellana MD -Cat [facility] Work Phone: Start: 11-26-2024 End: 11-27-[address] [facility] Start: 11-26-2024 Non-patient / Non-visit Dr. Norah Malave MD -[facility] Work Phone: Start: 11-26-2024 End: 11-26-[address] Carrillo Malave MD -Pulmonary Services/Neurology Work Phone: Start: 11-26-2024 End: 11-26-2024 ambulatory [facility] Reyn[facility] Facility:[facility] Start: 11-11-2024 ambulatory Carrillo Malave Facility :[facility] Start: 11-11-2024 Non-patient / Non-visit Dr. Tevin cruz DO -[facility] Start: 11-06-2024 End: 11-06-2024 Patient encounter procedure Radha Roberts SOLAR WATER HEATER INSTALLER-C -Pulmonary Services/Neurology Work Phone: Start: 11-05-2024 End: 11-06-2024 ambulatory Carrillo Malave Facility:[facility] Start: 11-05-2024 End: 11-05-[address] Carrillo Malave MD -[place] [facility] Work Phone: Start: 11-05-2024 End: 11-05-2024 Patient encounter procedure Radha Roberts SOLAR WATER HEATER INSTALLER-C -Pulmonary Services/Neurology Work Phone: Start: 11-05-2024 End: 11-05-2024 ambulatory Radha Roberts SOLAR WATER HEATER INSTALLER Facility:[facility] Start: 10-28-2024 Non-patient / Non-visit Dr. Saul [facility] Work Phone: Start: 10-28-2024 ambulatory Tomy Hanks Facility:[facility] Start: 10-28-2024 Non-patient / Non-visit Dr. Mallorie LOPEZ -[facility] Start: 10-27-2024 End: 10-28-2024 Evaluation and management of inpatient Dr. Vicente Andrews DO [facility] Work Phone: Start: 10-27-2024 End: 10-28-2024 ambulatory Vicente Andrews Facility:[facility] Start: 10-27-2024 Non-patient / Non-visit Dr. Saul [facility] Work Phone: Start: 09-24-2024 End: 09-24-2024 ambulatory Darlyn Moreno RN Project Development Leader Management Start: 09-24-2024 End: 09-24-2024 Follow-up encounter Darlyn Moreno RN Project Development Leader Management Comment on above: CDM (CHRONIC DISEASE MANAGEMENT OON ED Follow up Call/) Start: 09-20-2024 End: 09-23-2024 ambulatory Darlyn Moreno RN Project Development Leader Management Start: 09-20-2024 End: 09-23-2024 Follow-up encounter Darlyn Moreno RN Project Development Leader Management Comment on above: CDM (Chronic Disease Management OON ED Follow up Call/) Start: 09-18-2024 End: 09-18-2024 Telephone encounter George Vázquez MD Work Phone: [facility] [place] Comment on above: Consult Start: 09-17-2024 End: 09-17-2024 Emergency department patient visit Dr. Francisco Murillo MD -Emergency Department Work Phone: Start: 09-17-2024 End: 09-18-2024 Refill Blanca Tilley APRNTiannaEQUIPMENT PLANNER Work Phone: [facility] [place] Comment on above: Refill Request Start: 09-12-2024 End: 09-12-2024 Office outpatient visit 25 minutes George Vázquez MD Work Phone: [facility] [place] Comment on above: Dyspnea, unspecified type (Primary Dx); Coronary artery disease involving [place] coronary artery of [place] heart without angina pectoris; COPD (chronic obstructive pulmonary disease) with chronic bronchitis (HCC); Sinus tachycardia Start: 09-12-2024 End: 09-12-2024 ambulatory GEORGE VÁZQUEZ Facility:[facility] Start: 09-09-2024 End: 09-12-2024 ambulatory Jayleen Carter PA-C Work Phone: Pulmonary Medicine Start: 09-04-2024 End: 09-04-2024 ambulatory GEORGE VÁZQUEZ Facility:[facility] Start: 09-04-2024 End: 09-04-2024 Office outpatient visit 25 minutes George Vázquez MD Work Phone: [facility] [place] Comment on above: COPD with exacerbati on (HCC) (Primary Dx); Coronary artery disease involving [place] coronary artery of [place] heart without angina pectoris Start: 09-04-2024 End: 09-04-2024 Telephone encounter George Vázquez MD Work Phone: [facility] [place] Comment on above: Patient Update Start: 08-30-2024 End: 08-30-2024 Subsequent hospital visit by physician Xr [facility] [place] Work Phone: Radiology Comment on above: Subacute cough [R05. 2] Start: 08-30-2024 End: 08-30-2024 Office outpatient visit 25 minutes Prateek Matos APRN.EQUIPMENT PLANNER Work Phone: [facility] Comment on above: Subacute cough (Prim [place] Dx); COPD with exacerbation (HCC) Start: 08-26-2024 End: 08-26-2024 Telephone encounter Blanche Nevarez APRN.EQUIPMENT PLANNER Work Phone: [facility] Comment on above: Medication Problem Start: 08-25-2024 End: 08-25-2024 Patient encounter procedure Blanche Nevarez APRN.EQUIPMENT PLANNER Work Phone: [facility] Comment on above: Respiratory infectio n (Primary Dx); Thrush Start: 08-21-2024 End: 08-21-2024 ambulatory Darlyn Moreno RN Project Development Leader Management Comment on above: CDM (Chronic Disease Management Routine Call/) Start: 08-12-2024 End: 08-12-2024 Patient encounter procedure Blanca Tilley APRN.EQUIPMENT PLANNER Work Phone: [facility] Medicine [place] Comment on above: Chest wall pain (Maricarmen roxanna Dx); Chronic bronchitis, unspecified chronic bronchitis type (HCC); Hyperlipidemia, unspecified hyperlipidemia type; Impaired glucose metabolism Start: 07-24-2024 End: 07-24-2024 ambulatory Darlyn Moreno RN Project Development Leader Management Comment on above: CDM (Chronic Disease Management Routine Call/) Start: 07-22-2024 End: 07-26-2024 Refill Blanca Tilley APRN.EQUIPMENT PLANNER Work Phone: [facility] [place] Comment on above: Refill Request Start: 07-11-2024 End: 07-11-2024 ambulatory Hedy Sprague RN Project Development Leader Management Comment on above: CDM (Telephonic Outr each) Start: 07-10-2024 End: 07-10-2024 ambulatory Hedy Sprague RN Project Development Leader Management Comment on above: CDM (Telephonic Outr each) Start: 06-18-2024 End: 06-19-2024 ambulatory Darlyn Moreno bacteriologist pharmaceuticalProject Development Leader Management Comment on above: Community Monitoring Outreach Start: 06-13-2024 Refill George burdick MD Work Phone: [facility] [place] Comment on above: Refill Request Start: 05-27-2024 End: 05-27-2024 Patient encounter procedure George Vázquez MD Work Phone: [facility] [place] Comment on above: Medicare annual well ness visit, subsequent (Primary Dx); Coronary artery disease involving [place] coronary artery of [place] heart without angina pectoris; Hyperlipidemia, unspecified hyperlipidemia type; Chronic bronchitis, unspecified chronic bronchitis type (HCC); Primary hypertension; Screening for depression; Encounter for screening examination for other mental health and behavioral disorders; Gastroesophageal reflux disease, unspecified whether esophagitis present; Achilles tendinitis of both lower extremities; Acute on chronic respiratory failure with hypoxia (HCC) Start: 05-22-2024 ambulatory Darlyn Champagne Staff ord bacteriologist pharmaceuticalProject Development Leader Management Comment on above: Community Monitoring Outreach Start: 05-15-2024 Refill Blanca yanez APRN.CNP Work Phone: [facility] [place] Comment on above: Refill Request Start: 04-25-2024 ambulatory Darlyn Champagne Staff ord bacteriologist pharmaceuticalProject Development Leader Management Comment on above: Community Monitoring Outreach Start: 02-29-2024 Refill George burdick MD Work Phone: [facility] [place] Comment on above: Refill Request Start: 01-23-2024 ambulatory Darlyn Champagne Staff ord bacteriologist pharmaceuticalProject Development Leader Management Comment on above: Community Monitoring Outreach Start: 12-08-2023 Non-patient / Non-visit Dr. Norma Vázquez Work Phone: [facility] Start: 12-08-2023 End: 12-08-[address] George Vázquez Work Phone: [facility] Work Phone: Start: 12-08-2023 End: 12-08-[address] George Vázquez Work Phone: [facility]-Cardiovascular Services Work Phone: Start: 12-06-2023 ambulatory Darlyn Corral ord bacteriologist pharmaceuticalProject Development Leader Management Comment on above: Community Monitoring Outreach Start: 11-23-2023 End: 11-23-[address] [facility] Work Phone: Start: 11-10-2023 End: 11-10-[address] George Vázquez Work Phone: [facility] Work Phone: Start: 10-18-2023 End: 10-18-2023 Subsequent hospital visit by physician Xr [facility] Work Phone: Radiology Comment on above: SOB (shortness of br eath) [R06.02] Start: 10-04-2023 Refill Blanca ma APRN.EQUIPMENT PLANNER Work Phone: Internal Medicine [place] Comment on above: Refill Request Start: 10-02-2023 Orders Only Blanca ma [employer].EQUIPMENT PLANNER Work Phone: Internal [facility] Start: 09-29-2023 Refill George burdick MD Work Phone: Internal [facility] Comment on above: Refill Request Start: 09-07-2023 Refill George burdick MD Work Phone: Internal [facility] Comment on above: Refill Request Start: 08-24-2023 Refill George burdick MD Work Phone: Internal [facility] Comment on above: Refill Request Start: 08-17-2023 End: 08-17-[address] George Vázquez Work Phone: [facility] Work Phone: Start: 08-17-2023 End: 08-17-[address] George Vázquez Work Phone: [facility]-Pulmonary Services/Neurology Work Phone: Start: 08-11-2023 End: 08-11-[address] George Vázquez Work Phone: [facility] Work Phone: Start: 08-11-2023 End: 08-11-[address] George Vázquez Work Phone: [facility]-Laboratory, Specimen Work Phone: Start: 08-07-2023 End: 08-07-[address] George Vázquez Work Phone: [facility] Work Phone: Start: 08-07-2023 End: 08-07-[address] George Vázquez Work Phone: [facility]-Cat [facility], [facility] Work Phone: Start: 08-07-2023 End: 08-07-[address] George Vázquez Work Phone: [facility] Work Phone: Start: 08-04-2023 End: 08-04-[address] George Vázquez Work Phone: [facility]-Laboratory Work Phone: Start: 07-28-2023 End: 07-28-[address] George Vázquez Work Phone: [facility] Work Phone: Start: 07-21-2023 End: 07-21-[address] [facility] Work [facility] Start: 07-21-2023 End: 07-21-[address] George Vázquez Work Phone: [facility] Work Phone: Start: 07-03-2023 Refill George burdick MD Work Phone: [facility] [place] Comment on above: Refill Request Start: 06-20-2023 Refill George burdick MD Work Phone: [facility] [place] Comment on above: Refill Request Start: 06-19-2023 End: 06-19-[address] George Vázquez Work Phone: [facility] Work Phone: Start: 06-01-2023 ambulatory Darlyn rowan bacteriologist pharmaceuticalProject Development Leader Management Comment on above: Community Monitoring Outreach Start: 05-31-2023 End: 05-31-[address] George Vázquez Work Phone: [facility] Work Phone: Start: 05-31-2023 End: 05-31-[address] [facility] Work Phone: Start: 05-29-2023 End: 05-29-2023 Nursing evaluation of patient and report Nurse Mark [facility] Work Phone: General Surgery Comment on above: Infected cyst of ski n (Primary Dx); Skin cyst Start: 05-24-2023 Non-patient / Non-visit Dr. Norma Váqzuez Work Phone: [facility] Start: 05-24-2023 End: 05-24-[address] George Vázquez Work Phone: [facility] Work Phone: Start: 05-24-2023 End: 05-24-2023 Patient encounter procedure George Vázquez MD Work Phone: [facility] [place] Comment on above: Medicare annual well ness visit, subsequent (Primary Dx); Primary hypertension; Chronic bronchitis, unspecified chronic bronchitis type (HCC); Acute on chronic respiratory failure with hypoxia (HCC); Coronary artery disease involving [place] coronary artery of [place] heart without angina pectoris; Gastroesophageal reflux disease, unspecified whether esophagitis present; Tobacco use disorder; Hyperlipidemia, unspecified hyperlipidemia type Start: 05-12-2023 Non-patient / Non-visit Dr. Norma Vázquez Work Phone: [facility] Start: 05-11-2023 End: 05-11-[address] George Vázquez Work Phone: [facility] Work Phone: Start: 05-11-2023 End: 05-11-[address] George Vázquez Work Phone: [facility]-Pulmonary Services/Neurology Work Phone: Start: 04-20-2023 End: 04-20-[address] George Vázquez Work Phone: [facility] Gastro[facility] Work Phone: Start: 04-11-2023 End: 04-11-[address] [facility] Work Phone: Start: 04-11-2023 End: 04-11-[address] George Vázquez Work Phone: [facility] [facility] Work Phone: Start: 04-06-2023 End: 04-06-[address] George Vázquez Work Phone: [facility] Work Phone: Start: 04-06-2023 End: 04-06-[address] George Vázquez Work Phone: [facility]-Physical Therapy Start: 03-17-2023 End: 03-17-2023 Emergency department patient visit Dr. George Vázquez Work Phone: [facility]-Emergency Department Start: 03-17-2023 End: 03-17-[address] [facility] Start: 02-03-2023 End: 02-03-[address] George Vázquez Work Phone: [facility] Start: 01-28-2023 End: 01-28-[address] George Vázquez Work Phone: [facility] Work Phone: Start: 01-28-2023 End: 01-28-[address] George Vázquez Work Phone: [facility]-Laboratory, Specimen Start: 01-24-2023 Telephone encounter George morales MD Work Phone: Internal Medicine [place] Comment on above: Results Start: 01-24-2023 End: 01-24-[address] George Vázquez Work Phone: [facility]-Laboratory Start: 01-18-2023 End: 01-18-2023 Patient encounter procedure George Vázquez MD Work Phone: [facility] [place] Comment on above: Primary hypertension (Primary Dx); Coronary artery disease involving [place] coronary artery of [place] heart without angina pectoris; Hyperlipidemia, unspecified hyperlipidemia type; Chronic bronchitis, unspecified chronic bronchitis type (HCC); Acute on chronic respiratory failure with hypoxia (HCC); Need for vaccination Start: 01-13-2023 End: 01-13-[address] George Vázquez Work Phone: [facility] Start: 12-28-2022 Non-patient / Non-visit Dr. Norma Vázquez Work Phone: [facility] Start: 12-28-2022 End: 12-28-2022 Admission to same day surgery center Dr. George Vázquez Work Phone: [facility]-Endoscopy Start: 12-22-2022 End: 12-22-[address] George Vázquez Work Phone: [facility] Start: 12-15-2022 End: 12-15-[address] George Vázquez Work Phone: [facility] Start: 12-13-2022 End: 12-13-[address] George Vázquez Work Phone: [facility] Work Phone: Start: 12-13-2022 End: 12-13-[address] George Vázquez Work Phone: [facility] Start: 12-13-2022 Telephone encounter George morales MD Work Phone: Internal [facility] [place] Comment on above: Rx issue; vaccne que stion. Start: 12-05-2022 Refill George burdick MD Work Phone: Internal Medicine [place] Comment on above: Refill Request Start: 12-02-2022 End: 12-02-2022 Non-patient / Non-visit Dr. George Vázquez Work Phone: [facility] Start: 12-02-2022 Non-patient / Non-visit Dr. Norma Vázquez Work Phone: [facility] Start: 12-02-2022 End: 12-02-2022 Admission to same day surgery center Dr. George Vázquez Work Phone: [facility] Start: 12-01-2022 End: 12-01-[address] George Vázquez Work Phone: [facility] Medicine [facility] Start: 11-30-2022 End: 11-30-2022 Non-patient / Non-visit Dr. George Vázquez Work Phone: [facility] Start: 11-22-2022 End: 11-22-2022 Subsequent hospital visit by physician [facility] Work Phone: Radiology Comment on above: Acute pain of right shoulder [M25.511] Start: 11-22-2022 End: 11-22-2022 Patient encounter procedure Kelly DURAN Work Phone: [facility] Comment on above: Acute pain of right shoulder (Primary Dx); Strain of right shoulder, initial encounter Start: 11-15-2022 End: 11-15-[address] George Vázquez Work Phone: [facility] Start: 11-11-2022 Refill George burdick MD Work Phone: Internal Medicine [place] Comment on above: Med Change Request Start: 11-09-2022 End: 11-09-[address] George Vázquez Work Phone: [facility] Start: 11-09-2022 Refill George burdick MD Work Phone: Internal Medicine [place] Comment on above: Refill Request Start: 11-03-2022 End: 11-03-[address] George Vázquez Work Phone: [facility] Work Phone: Start: 11-03-2022 End: 11-03-[address] George Vázquez Work Phone: [facility] Start: 10-30-2022 Non-patient / Non-visit Dr. Norma Vázquez Work Phone: [facility] In[facility] Phys[facility] Start: 10-29-2022 Non-patient / Non-visit Dr. Norma Vázquez Work Phone: [facility] Start: 10-28-2022 End: 10-30-2022 Evaluation and management of inpatient Dr. George Vázquez Work Phone: [facility]-Medical Surgical 3 Start: 10-27-2022 End: 10-27-[address] George Vázquez Work Phone: [facility] Work Phone: Start: 10-27-2022 End: 10-27-[address] George Vázquez Work Phone: [facility]-Pulmonary Services/Neurology Start: 10-26-2022 Refill George burdick MD Work Phone: Internal [facility] [place] Comment on above: Refill Request Start: 10-25-2022 End: 10-25-[address] George Vázquez Work Phone: [facility] Start: 10-18-2022 ambulatory George burdick MD Work Phone: Internal Medicine [place] Comment on above: Renew medication Start: 10-13-2022 Refill Blanca Older [employer]QUIPMENT PLANNER Work Phone: Internal Medicine [place] Comment on above: Refill Request Start: 10-03-2022 End: 10-03-[address] George Vázquez Work Phone: [facility] Work Phone: Start: 10-03-2022 End: 10-03-[address] George Vázquez Work Phone: [facility]-Physical Therapy Start: 09-26-2022 Refill Blanca Older [employer]EQUIPMENT PLANNER Work Phone: Internal Medicine [place] Comment on above: Refill Request Start: 09-16-2022 Refill Blanca Older [employer]EQUIPMENT PLANNER Work Phone: Internal Medicine [place] Comment on above: Refill Request Start: 09-07-[address] Hetal Vázquez Work Phone: [facility]Physical [facility] Start: 09-05-2022 Refill Blanca Older [employer]QUIPMENT PLANNER Work Phone: Internal Medicine [place] Comment on above: Refill Request Start: 08-31-2022 End: 08-31-[address] George Vázquez Work Phone: [facility] Work Phone: Start: 08-31-2022 End: 08-31-[address] George Vázquez Work Phone: [facility]-Nuclear Medicine, [facility] Start: 08-21-2022 Refill Blanca Older [employer]EQUIPMENT PLANNER Work Phone: Internal Medicine [place] Comment on above: Refill Request Start: 08-15-2022 Refill Blanca Older [employer]EQUIPMENT PLANNER Work Phone: Internal Medicine [place] Comment on above: Refill Request Start: 08-04-2022 End: 08-04-[address] [facility] Start: 08-03-2022 Orders Only Low Sanders Work Phone: Family Medicine [place] Comment on above: Primary osteoarthrit is of right knee (Primary Dx) Start: 07-28-2022 End: 07-28-[address] George Vázquez Work Phone: [facility] Work Phone: Start: 07-28-2022 End: 07-28-2022 Patient encounter procedure George Vázquez MD Work Phone: Internal Medicine [place] Comment on above: Cough syncope (Prima ry Dx); Contusion of right chest wall, subsequent encounter; Gallstones Start: 07-26-[address] Hetal Vázquez Work Phone: [facility] Start: 07-15-2022 End: 07-15-2022 Emergency department patient visit GEORGE VÁZQUEZ Facility:[facility] Start: 07-15-2022 End: 07-15-2022 Patient encounter procedure Michelle Alonzo PA-C Work Phone: [facility] Comment on above: Pleuritic chest pain (Primary Dx) Start: 07-13-2022 End: 07-13-2022 Emergency department patient visit Dr. George Vázquez Work Phone: [facility]-Emergency Department Start: 07-11-[address] Hetal [facility] Start: 07-05-2022 Telephone encounter George morales MD Work Phone: Internal Medicine [place] Comment on above: Covid 19 Concern Start: 07-05-2022 End: 07-05-2022 Patient encounter procedure Edson Ibrahim APRNTiannaEQUIPMENT PLANNER Work Phone: [facility] Comment on above: Suspected COVID-19 v irus infection (Primary Dx) Start: 07-04-2022 End: 07-04-2022 Patient encounter procedure Sharon Zamora PA-C Work Phone: [facility] Comment on above: Oral candidiases (Pr imary Dx) Start: 06-29-2022 Refill George burdick MD Work Phone: Internal Medicine [place] Comment on above: Refill Request Start: 06-26-2022 Refill George burdick MD Work Phone: Internal Medicine [place] Comment on above: Refill Request Start: 06-19-2022 Refill Blanca Nielsen [employer]EQUIPMENT PLANNER Work Phone: Internal Medicine [place] Comment on above: Refill Request Start: 06-09-2022 End: 06-09-[address] George Vázquez Work Phone: [facility] Start: 06-07-[address] Hetal [facility] Start: 05-29-2022 Refill Blanca Older [employer]EQUIPMENT PLANNER Work Phone: Internal Medicine [place] Comment on above: Refill Request Start: 05-25-2022 ambulatory Josh Cornell RN Ambulatory [facility] Comment on above: Community Monitoring Outreach (COPD Telephonic CDM Outreach) Start: 05-25-2022 End: 05-25-[address] [facility] Start: 05-24-2022 Refill Low Manny Sanders Work Phone: Family Medicine [place] Start: 05-16-2022 Telephone encounter George morales MD Work Phone: Internal Medicine [place] Comment on above: fax to outside - gas tro referral Start: 05-10-2022 Telephone encounter George morales MD Work Phone: [facility] Medicine [place] Comment on above: Release Of Medical R ecords Start: 04-25-2022 ambulatory Josh Cornell RN Project Development Leader Management Comment on above: Community Monitoring Outreach (COPD Telephonic CDM Outreach) Start: 04-18-2022 ambulatory Blanca Older [employer] .EQUIPMENT PLANNER Work Phone: Internal Medicine [place] Comment on above: Blood work Start: 04-14-2022 MC Get Medical Advice George Vázquez MD Work Phone: Internal Medicine [place] Comment on above: Refill Start: 04-04-2022 ambulatory Josh Cornell RN Project Development Leader Management Comment on above: Community Monitoring Outreach (Chronic Bronchitis CDM Outreach) Start: 03-21-2022 Refill Blanca Older [employer] .EQUIPMENT PLANNER Work Phone: Internal Medicine [place] Comment on above: Refill Request Start: 03-07-2022 End: 03-29-[address] [facility] Start: 02-28-2022 ambulatory Josh Cornell RN Project Development Leader Management Comment on above: Community Monitoring Outreach (COPD CDM Outreach) Start: 02-25-2022 End: 02-26-[address] George Vázquez Work Phone: [facility]Card[facility] Start: 02-22-2022 ambulatory Low Manny Sanders Work Phone: [facility] Comment on above: Right knees swelling up a little bit here and there Start: 02-14-2022 End: 02-14-[address] George Vázquez Work Phone: [facility] Start: 02-04-2022 ambulatory Josh Cornell RN Project Development Leader Management Comment on above: Community Monitoring Outreach (COPD CDM Outreach) Start: 02-01-2022 End: 02-01-[address] [facility] Start: 01-26-2022 End: 01-27-[address] George Vázquez Work Phone: [facility] Start: 01-21-2022 ambulatory Josh Cornell RN Project Development Leader Management Comment on above: Community Monitoring Outreach (CDM Outreach) Start: 12-29-2021 End: 12-29-[address] George Vázquez Work Phone: [facility] Start: 12-27-2021 End: 12-27-[address] George Vázquez Work Phone: [facility] Start: 11-29-2021 End: 11-29-[address] George Vázquez Work Phone: [facility] Start: 11-22-2021 End: 11-22-[address] George Vázquez Work Phone: [facility] Start: 11-17-2021 Non-patient / Non-visit Dr. Norma Vázquez Work Phone: [facility] Start: 11-15-2021 End: 11-15-[address] George Vázquez Work Phone: [facility] Start: 10-07-[address] George Vázquez Work Phone: [facility]-Laboratory Start: 10-04-2021 End: 10-04-[address] George Vázquez Work Phone: [facility] Start: 09-30-2021 Non-patient / Non-visit Dr. Norma Vázquez Work Phone: [facility] Start: 01-15-2021 End: 01-15-2021 Patient encounter procedure [facility] Start: 12-29-2020 End: 12-29-2020 Subsequent hospital visit by physician [facility] Work Phone: Radiology Comment on above: Acute right-sided lo w back pain without sciatica [M54.5] Start: 12-25-2020 End: 12-25-2020 Patient encounter procedure [facility] Procedures Date Procedure Procedure Detail Performing Clinician [...] exam ches t 2 views Prateek Matos [employer]EQUIPMENT PLANNER Work Phone: Start: 08-12-2024 Lipid 1996 panel - S beto or Plasma Darlyn Moreno RN Start: 05-27-2024 Adult depression screening assessment George Vázquez MD Work Phone: Start: 02-27-2024 Lipid 1996 panel - S beto or Plasma Blanca Tilley [employer]EQUIPMENT PLANNER Work Phone: Start: 10-18-2023 Radiologic exam ches t 2 views Ilda Bocanegra [employer]EQUIPMENT PLANNER Work Phone: Start: 08-11-2023 Investigation of transfusion [...] Detail Author Start: 05-05-2031 Urine microalbumin profile [facility] Start: 08-12-2029 Lipid panel Lipid Screening [facility] Start: 02-26-2029 Lipid panel Lipid Screening [facility] Start: 01-09-2028 Diabetes Screening Diabetes Screening [facility] Start: 12-29-2027 Colonoscopy COLONOSCOPY [facility] Start: 12-29-2027 COLORECTAL CANCER SCREENING COLORECTAL CANCER SCREENING [facility] Start: 12-29-2027 Screening for malignant neoplasm of colon [facility] Start: 09-12-2027 Diabetes Screening Diabetes Screening [facility] Start: 08-12-2027 Diabetes Screening Diabetes Screening [facility] Start: 05-05-2027 Lipid 1996 panel - Serum or Plasma Lipid Screening [facility] Start: 05-05-2027 Lipid panel Lipid Screening [facility] Start: 05-05-2027 LIPID SCREEN LIPID SCREEN [facility] Start: 02-26-2027 Diabetes Screening Diabetes Screening [facility] Start: 07-07-2026 Annual PCP Team Chronic Disease Visit Annual PCP Team Chronic Disease Visit [facility] Start: 06-22-2026 Colonoscopy COLONOSCOPY [facility] Start: 06-22-2026 COLORECTAL CANCER SCREENING COLORECTAL CANCER SCREENING [facility] Start: 05-28-2026 Annual PCP Team Chronic Disease Visit Annual PCP Team Chronic Disease Visit [facility] Start: 05-28-2026 Anxiety Screening Anxiety Screening [facility] Start: 05-28-2026 Depression Screening Depression Screening [facility] Start: 05-28-2026 Medicare Annual Wellness Visit Medicare Annual Wellness Visit [facility] Start: 05-22-2026 DIABETES SCREEN DIABETES SCREEN [facility] Start: 05-22-2026 Diabetes Screening Diabetes Screening [facility] Start: 04-30-2026 LIPID SCREEN LIPID SCREEN [facility] Start: 01-08-2026 Annual PCP Team Chronic Disease Visit Annual PCP Team Chronic Disease Visit [facility] Start: 11-28-2025 End: 11-28-2025 Patient encounter procedure 11/28/2025 2:20 PM EST Office Visit [facility] [address] [place] [address] George Vázquez MD [address] [place] [id number] 6 month follow-up [facility] Comment on above: 6 month follow-up Start: 11-03-2025 PROSTATE CANCER SCREENING DISCUSSION PROSTATE CANCER SCREENING DISCUSSION [facility] Start: 09-12-2025 Annual PCP Team Chronic Disease Visit Annual PCP Team Chronic Disease Visit [facility] Start: 09-04-2025 Annual PCP Team Chronic Disease Visit Annual PCP Team Chronic Disease Visit [facility] Start: 09-04-2025 BP Controlled (<130/80) BP Controlled (<130/80) [facility] Start: 09-01-2025 End: 09-01-2025 Patient encounter procedure 09/01/2025 1:00 PM EST Office Visit Orthopaedics [address] [place] [address] Saritha Greenwood PA-C [address] [place] [address] Dupuytren's contracture of right hand [M72.0] Orthopaedics Comment on above: Dupuytren's contracture of right hand [M 72.0] Start: 08-12-2025 Annual PCP Team Chronic Disease Visit Annual PCP Team Chronic Disease Visit [facility] Start: 08-12-2025 Hepatitis B surface antibody level LDL Cholesterol [facility] Start: 07-28-2025 Registered Recurring Registered Recurring -Physical Therapy Work Phone: Start: 07-15-2025 DIABETES SCREEN DIABETES SCREEN [facility] Start: 07-08-2025 End: 07-08-2025 Patient encounter procedure 07/08/2025 10:00 AM EDT Office Visit [facility] [address] [place] [address] Low Bryant V, [address] [place] [address] Acute right hip pain [M25.551] [facility] [place] Comment on above: Acute right hip pain [M25.551] Start: 07-07-2025 End: 07-07-2025 Patient encounter procedure 07/07/2025 11:00 AM EDT Office Visit [facility] [address] [place] [address] Blanca Tilley, [employer]EQUIPMENT PLANNER [address] [place] [address] urg care f/u [facility] [place] Comment on above: urg care f/u Start: 2025 Influenza [facility] Start: 06-04-2025 Screening for malignant neoplasm of lung Lung Cancer Screening [facility] Start: 05-28-2025 End: 05-28-2025 Patient encounter procedure 05/28/2025 1:40 PM EDT Office Visit Internal Medicine [place] [address] [facility] [place] [address] George Vázquez MD [address] [place] [address] Annual Medicare Wellness w/5 month follow-up [facility] [place] Comment on above: Annual Medicare Wellness w/5 month follo w-up Start: 05-27-2025 Annual PCP Team Chronic Disease Visit Annual PCP Team Chronic Disease Visit [facility] Start: 05-27-2025 Anxiety Screening Anxiety Screening [facility] Start: 05-27-2025 BP Controlled (<130/80) BP Controlled (<130/80) [facility] Start: 05-27-2025 Depression Screening Depression Screening [facility] Start: 05-05-2025 DIABETES SCREEN DIABETES SCREEN [facility] Start: 02-26-2025 Hepatitis B surface antibody level LDL Cholesterol [facility] Start: 01-20-2025 Covid-19 Vaccine () Covid-19 Vaccine () [facility] Start: 01-08-2025 End: 04-09-2025 Basic metabolic 2000 panel - Serum or Plasma [facility] Work Phone: Comment on above: Expected: 01/08/2025, Expires: Start: 11-25-2024 End: 11-25-2024 Patient encounter procedure 11/25/2024 1:20 PM EST Office Visit [facility] [address] [place] [address] George Vázquez MD [address] [facility] [place] [address] 6 month follow-up [facility] [place] Comment on above: 6 month follow-up Start: 11-23-2024 Annual PCP Team Chronic Disease Visit Annual PCP Team Chronic Disease Visit [facility] Start: 11-23-2024 BP Controlled (<130/80) BP Controlled (<130/80) [facility] Start: 11-08-2024 DIABETES SCREEN DIABETES SCREEN [facility] Start: 10-30-2024 Advance Directive Discussion Advance Directive Discussion [facility] Start: 10-28-2024 Patient discharge [facility] Start: 10-27-2024 Following clinical pathway protocol [facility] Start: 10-27-2024 Ambulation without limitation [facility] Start: 10-27-2024 Assessment of risk of venous thromboembolism [facility] Start: 10-27-2024 Cardiac monitoring [facility] Start: 10-27-2024 Incentive spirometry [facility] Start: 10-27-2024 Insertion of catheter into peripheral vein [facility] Start: 10-27-2024 Oxygen therapy [facility] Start: 10-27-2024 Providing care according to standard [facility] Start: 10-27-2024 Referral to service [facility] Start: 10-27-2024 [facility] Start: 10-27-2024 Admission procedure [facility] Start: 09-17-2024 End: 09-17-2024 [facility] Start: 09-12-2024 End: 12-12-2024 Basic metabolic 2000 panel - Serum or Plasma [facility] Comment on above: Expected: 09/12/2024, Expires: Start: 09-12-2024 End: 12-12-2024 CBC panel - Blood by Automated count [facility] Work Phone: Comment on above: Expected: 09/12/2024, Expires: Start: 09-12-2024 End: 12-12-2024 Natriuretic peptide.B prohormone N-Terminal [Mass/volume] in Serum or Plasma [facility] Comment on above: Expected: 09/12/2024, Expires: Start: 08-27-2024 End: 08-27-2024 ambulatory 08/27/2024 1:30 PM EDT Results Only [facility] [address] [place] [address] [facility] Start: 08-12-2024 End: 11-11-2024 CBC panel - Blood by Automated count [facility] Comment on above: Expected: 08/12/2024, Expires: Start: 08-12-2024 End: 11-11-2024 Comprehensive metabolic 2000 panel - Serum or Plasma [facility] Comment on above: Expected: 08/12/2024, Expires: Start: 08-12-2024 End: 11-11-2024 Hemoglobin A1c in Blood [facility] Comment on above: Expected: 08/12/2024, Expires: Start: 08-12-2024 End: 11-11-2024 Lipid 1996 panel - Serum or Plasma [facility] Work Phone: Comment on above: Expected: 08/12/2024, Expires: Start: 08-12-2024 End: 11-11-2024 Magnesium [Mass/volume] in Serum or Plasma [facility] Comment on above: Expected: 08/12/2024, Expires: Start: 08-12-2024 End: 11-11-2024 Urinalysis complete panel - Urine [facility] Comment on above: Expected: 08/12/2024, Expires: Start: 2024 Covid-19 Vaccine ( season) Covid-19 Vaccine ( season) [facility] Start: 2024 Covid-19 Vaccine ( season) Covid-19 Vaccine ( season) [facility] Start: 2024 Influenza vaccination Influenza Vaccine (#1) [facility] Start: 05-27-2024 End: 05-27-2024 Patient encounter procedure 05/27/2024 12:00 PM EDT Office Visit [facility] [address] [place] [address] George Vázquez MD [address] [place] [id number] Medicare Wellness [facility] [place] Comment on above: Medicare Wellness Start: 05-24-2024 ANNUAL PCP TEAM CHRONIC DISEASE VISIT ANNUAL PCP TEAM CHRONIC DISEASE VISIT [facility] Start: 05-24-2024 BP CONTROLLED (<130/80) BP CONTROLLED (<130/80) [facility] Start: 01-25-2024 Hepatitis B surface antibody level LDL CHOLESTEROL [facility] Start: 01-19-2024 ANNUAL PCP TEAM CHRONIC DISEASE VISIT ANNUAL PCP TEAM CHRONIC DISEASE VISIT [facility] Start: 01-14-2024 Covid-19 Vaccine () Covid-19 Vaccine () [facility] Start: 10-30-2023 Advance Directive Discussion Advance Directive Discussion [facility] Start: 10-30-2023 Behavioral Health Screening Behavioral Health Screening [facility] Start: 10-30-2023 Depression Assessment Depression Assessment [facility] Start: 07-28-2023 ANNUAL PCP TEAM CHRONIC DISEASE VISIT ANNUAL PCP TEAM CHRONIC DISEASE VISIT [facility] Start: 07-28-2023 BP CONTROLLED (<130/80) BP CONTROLLED (<130/80) [facility] Start: 07-24-2023 End: 09-23-2023 Basic metabolic 2000 panel - Serum or Plasma BASIC METABOLIC PNL Lab Routine Primary hypertension Expected: 07/24/2023, Expires: 09/23/2023 [facility] Work Phone: Comment on above: Expected: 07/24/2023, Expires: Start: 07-05-2023 BP CONTROLLED (<130/80) BP CONTROLLED (<130/80) [facility] Start: 2023 Covid-19 Vaccine () Covid-19 Vaccine () [facility] Start: 2023 Influenza vaccination [facility] Start: 05-09-2023 Adult depression screening assessment DEPRESSION SCREENING [facility] Start: 05-09-2023 ANNUAL PCP TEAM CHRONIC DISEASE VISIT ANNUAL PCP TEAM CHRONIC DISEASE VISIT [facility] Start: 05-09-2023 BP CONTROLLED (<130/80) BP CONTROLLED (<130/80) [facility] Start: 05-09-2023 SHINGRIX VACCINE (1 of 2) SHINGRIX VACCINE (1 of 2) [facility] Comment on above: Postponed from 2004 (Declined at t his time) Start: 05-05-2023 Hepatitis B surface antibody level LDL CHOLESTEROL [facility] Start: 04-13-2023 COVID-19 VACCINE (6 - Pfizer series) COVID-19 VACCINE (6 - Pfizer series) [facility] Start: 12-28-2022 Colonoscopy w/biopsy single/multiple COLONOSCOPY AND BIOPSY [facility] Start: 12-28-2022 Colsc flx w/rmvl of tumor polyp lesion snare tq COLONOSCOPY W/LESION REMOVAL [facility] Start: 12-28-2022 Egd transoral biopsy single/multiple EGD BIOPSY SINGLE/MULTIPLE [facility] Start: 12-28-2022 Patient discharge [facility] Start: 12-22-2022 BP CONTROLLED (<130/80) BP CONTROLLED (<130/80) [facility] Start: 12-02-2022 Anes intraperitoneal upper abdomen w/laps nos ANESTH SURG UPPER ABDOMEN [facility] Start: 12-02-2022 Laps surg cholecystectomy w/cholangiography LAPARO CHOLECYSTECTOMY/GRAPH [facility] Start: 12-02-2022 Patient discharge [facility] Start: 11-05-2022 ANNUAL PCP TEAM CHRONIC DISEASE VISIT ANNUAL PCP TEAM CHRONIC DISEASE VISIT [facility] Start: 10-30-2022 ADVANCE DIRECTIVE DISCUSSION ADVANCE DIRECTIVE DISCUSSION [facility] Start: 10-30-2022 DEPRESSION ASSESSMENT DEPRESSION ASSESSMENT [facility] Start: 10-30-2022 Patient discharge [facility] Start: 10-29-2022 Respiratory secretion precautions [facility] Start: 10-29-2022 Physiotherapy of chest [facility] Start: 10-29-2022 Inhalation therapy procedure [facility] Start: 10-28-2022 Application of intermittent pneumatic compression device [facility] Start: 10-28-2022 Following clinical pathway protocol [facility] Start: 10-28-2022 Assessment of risk of venous thromboembolism [facility] Start: 10-28-2022 Incentive spirometry [facility] Start: 10-28-2022 Insertion of catheter into peripheral vein [facility] Start: 10-28-2022 Introduction of urinary catheter [facility] Start: 10-28-2022 Measuring intake and output [facility] Start: 10-28-2022 Oxygen therapy [facility] Start: 10-28-2022 Providing care according to standard [facility] Start: 10-28-2022 Provision of activity privileges [facility] Start: 10-28-2022 Referral to service [facility] Start: 10-28-2022 Tobacco use cessation education [facility] Start: 10-28-2022 [facility] Start: 10-28-2022 Admission procedure [facility] Start: 10-28-2022 [facility] Work Phone: Start: 08-23-2022 PNEUMOCOCCAL: 65+ (3 - PPSV23 if available, else PCV20) PNEUMOCOCCAL: 65+ (3 - PPSV23 if available, else PCV20) [facility] Start: 08-23-2022 PNEUMOCOCCAL: 65+ (3 - PPSV23 or PCV20) PNEUMOCOCCAL: 65+ (3 - PPSV23 or PCV20) [facility] Start: 08-23-2022 PNEUMOVAX AGE 65 AND OVER WITH 5YR LOOKBACK (#1) PNEUMOVAX AGE 65 AND OVER WITH 5YR LOOKBACK (#1) [facility] Start: 07-28-2022 Celiac disease screen [facility] Work Phone: Start: 07-28-2022 IgE [Units/volume] in Serum or Plasma [facility] Work Phone: Start: 07-28-2022 Serum immunofixation [facility] Work Phone: Start: 07-28-2022 [facility] Work Phone: Start: 07-05-2022 End: 07-19-2022 Influenza virus A and B RNA and SARS-CoV-2 (COVID-19) N gene panel - Respiratory specimen by JESSICA with probe detection [facility] Work Phone: Comment on above: Expected: 07/05/2022, Expires: 2 Start: 07-04-2022 COVID-19 VACCINE (5 - Booster for Pfizer series) COVID-19 VACCINE (5 - Booster for Pfizer series) [facility] Start: 2022 Influenza vaccination INFLUENZA (#1) [facility] Start: 05-05-2022 Adult depression screening assessment DEPRESSION SCREENING [facility] Start: 04-30-2022 Hepatitis B surface antibody level LDL CHOLESTEROL [facility] Start: 04-27-2022 End: 06-27-2022 Basic metabolic 2000 panel - Serum or Plasma BASIC METABOLIC PNL Lab Routine Hyperlipidemia, unspecified hyperlipidemia type Expected: 04/27/2022, Expires: 06/27/2022 [facility] Work Phone: Comment on above: Expected: 04/27/2022, Expires: 2 Start: 04-27-2022 End: 06-27-2022 Lipid 1996 panel - Serum or Plasma LIPID PANEL BASIC Lab Routine Hyperlipidemia, unspecified hyperlipidemia type Expected: 04/27/2022, Expires: 06/27/2022 [facility] Work Phone: Comment on above: Expected: 04/27/2022, Expires: 2 Start: 10-30-2021 ADVANCE DIRECTIVE DISCUSSION ADVANCE DIRECTIVE DISCUSSION [facility] Start: 10-30-2021 DEPRESSION ASSESSMENT DEPRESSION ASSESSMENT [facility] Start: 10-29-2016 FECAL OCCULT BLOOD FECAL OCCULT BLOOD [facility] Start: 10-29-2016 Screening for malignant neoplasm of colon Fecal Occult Blood [facility] Start: 2014 RSV Vaccine (1 - 1-dose 60+ series) RSV Vaccine (1 - 1-dose 60+ series) [facility] Start: 2004 Screening for malignant neoplasm of lung Lung Cancer Screening [facility] Start: 2004 SHINGRIX VACCINE (1 of 2) SHINGRIX VACCINE (1 of 2) [facility] Start: 1999 COLOGUARD (FIT-DNA) [facility] Start: [address] COLONOGRAPHY [facility] Start: 1999 Screening for malignant neoplasm of colon [facility] Start: 1999 SIGMOIDOSCOPY SIGMOIDOSCOPY [facility] Start: 1984 Zoledronic acid therapy Alpha-1 Antitrypsin Deficiency Screening [facility] Start: 1972 Anxiety Screening Anxiety Screening [facility] Start: 1972 BP CONTROLLED (<130/80) BP CONTROLLED (<130/80) [facility] Start: 1972 Depression Screening Depression Screening [facility] [address] [facility] Albumin [Moles/volum e] in Serum or Plasma [facility] Work Phone: Albumin/Globulin ratio [facility] Work Phone: Antibody to lupus [place] protein measurement [facility] Work Phone: Antibody to SS-A measurement [facility] Work Phone: Basic metabolic 2008 panel with ionized calcium - Serum or Plasma [facility] Centromere protein B Ab [Units/volume] in Serum [facility] Work Phone: Chromatin Ab [Units/volume] in Serum or Plasma [facility] Work Phone: Clostridioides diffi cile DNA [Presence] in Unspecified specimen by JESSICA with probe detection [facility] Work Phone: CT Abdomen and Pelvi s W contrast IV [facility] Work Phone: CT Chest [facility] CT Chest WO contrast [facility] CTA Abdominal vessel s WO and W contrast IV [facility] Work Phone: DNA double strand Ab [Units/volume] in Serum [facility] Work Phone: ECG COMPLETE ECG COMPLETE ECG Routine Coronary artery disease involving [place] coronary artery of [place] heart without angina pectoris 09/12/2024 4:39 PM EST [facility] Elastase, pancreatic (el-1), fecal; quantitative [facility] Work Phone: Electrophoresis: [id number] [facility] Work Phone: Electrophoresis: charbel ma globulin [facility] Work Phone: Fat [Presence] in Stool [facility] Work Phone: Gastrointestinal pathogens panel - Stool by JESSICA with probe detection [facility] Work Phone: Globulin measurement [facility] Work Phone: Hepatic function panel [facility] Hepatic function panel [facility] IgA [Mass/volume] in Serum or Plasma [facility] Work Phone: IgE [Units/volume] i n Serum or Plasma [facility] Work Phone: IgG [Mass/volume] in Serum or Plasma [facility] Work Phone: IgM [Mass/volume] in Serum or Plasma [facility] Work Phone: Maki-1 extractable nuc lear Ab [Units/volume] in Serum [facility] Work Phone: Lactoferrin [Presenc e] in Stool by Immunoassay [facility] Work Phone: Lipid 1996 panel - S beto or Plasma [facility] Lipid 1995 panel - S beto or Plasma [facility] Measurement of immunoglobulin A in serum specimen [facility] Work Phone: Neutrophil cytoplasm ic Ab.classic [Units/volume] in Serum [facility] Work Phone: P-ANCA measurement [facility] Work Phone: Patient Education [facility] Work Phone: Patient referral [facility] Work Phone: Protein electrophore sis panel - Serum or Plasma [facility] Work Phone: Protein measurement [facility] Work Phone: Radionuclide gastric emptying study [facility] Work Phone: SCL-70 extractable nuclear Ab [Units/volume] in Serum by Immunoassay [facility] Work Phone: Serum protein electrophoresis [facility] Work Phone: Reyes extractable nu clear Ab [Presence] in Serum [facility] Work Phone: Tissue transglutamin ase IgA Ab [Units/volume] in Serum [facility] Work Phone: End: 12-22-2023 XR SHOULDER [id number] AP/TRUE AP RIGHT XR SHOULDER [id number] AP/TRUE AP RIGHT Radiology STAT Acute pain of right shoulder 1 Occurrences starting 11/22/2022 until 12/22/2023 [facility] Work Phone: Comment on above: 1 Occurrences starting 11/22/2022 until 12/22/2023 [facility] Immunizations Immunization Date Immunization Notes Care Provider Fa cili 07-23-2024 Seasonal trivalent influenza vaccine, adjuvanted, preservative free Blanca Tilley APRN.EQUIPMENT PLANNER Work Phone: [facility] 07-23-2024 influenza virus vaccine, unspecified formulation George Vázquez MD Work Phone: [facility] 06-04-2024 respiratory syncytia l virus (RSV) vaccine, adjuvanted (AREXVY) George Vázquez MD Work Phone: [facility] 09-15-2023 COVID-19 vaccine, ag e 12+ yr, season (T[employer]chosBIOworldhistoryproject) George Vázquez MD Work Phone: [facility] Work Phone: 09-15-2023 influenza (aIIV4) vaccine, age 65+ yr, quadrivalent, PF (FLUAD QUAD) Darlyn Moreno RN [facility] Work Phone: 09-15-2023 influenza, injectabl e, quadrivalent, contains preservative George Vázquez MD Work Phone: [facility] Work Phone: 09-15-2023 influenza virus vaccine, unspecified formulation Blanca Tilley APRN.EQUIPMENT PLANNER Work Phone: [facility] 01-18-2023 pneumococcal Conjuga te, unspecified formulation George Vázquez MD Work Phone: [facility] Work Phone: 01-18-2023 pneumococcal (PCV20) vaccine, 20 valent (PREVNAR 20) George Vázquez MD Work Phone: [facility] Work Phone: 12-14-2022 COVID-19 booster vaccine, age 12+ yr, bivalent (PFIZERRussian TowersBIONTECH) George Vázquez MD Work Phone: [facility] Work Phone: 07-14-2022 influenza, injectabl e, quadrivalent, preservative free Dr. George Vázquez Work Phone: [facility] 07-14-2022 influenza, seasonal, injectable Dr. George Vázquez Work Phone: [facility] 07-14-2022 influenza virus vaccine, unspecified formulation George Vázquez MD Work Phone: [facility] 05-09-2022 Covid (Pfizer) Dr. George jade Work Phone: [facility] 05-09-2022 COVID-19 vaccine, ag e 12+ yr (PFIZER-BIONTECH - GIBBS TOP) George Vázquez MD Work Phone: [facility] 07-25-2021 COVID-19 vaccine, ag e 12+ yr (PFIZER-BIONTECH - PURPLE TOP) Josh Reveles RN [facility] Work Phone: 2021 Covid (Pfizer) Dr. George jade Work Phone: [facility] [address] George Vázquez Work Phone: [facility] 05-05-2021 tetanus toxoid, redu wojciech diphtheria toxoid, and acellular pertussis vaccine, adsorbed Josh Reveles RN [facility] Work Phone: 01-15-2021 COVID-19 vaccine, ag e 12+ yr (PFIZER-BIONTECH - PURPLE TOP) Josh Reveles RN [facility] Work Phone: 12-25-2020 COVID-19 vaccine, ag e 12+ yr (PFIZER-BIONTECH - PURPLE TOP) Josh Reveles RN [facility] Work Phone: 07-22-2020 influenza, injectabl e, quadrivalent, contains preservative Josh Reveles RN [facility] Work Phone: 08-27-2019 influenza, high dose seasonal, preservative-free Josh Reveles RN [facility] Work Phone: 08-27-2019 pneumococcal conjuga te vaccine, 13 valent Josh Carlsonesjimi REILLY [facility] Work Phone: 09-16-2018 influenza, seasonal, injectable Josh Carlsonesjimi REILLY [facility] Work Phone: 08-23-2017 influenza, injectabl e, quadrivalent, contains preservative Josh Reveles RN [facility] 08-23-2017 pneumococcal polysaccharide vaccine, 23 valent Josh Carlsonesjimi REILLY [facility] Work Phone: 08-13-2016 influenza, seasonal, injectable Josh Carlsonesjimi REILLY [facility] 08-13-2015 influenza, seasonal, injectable Josh Carlsonesjimi REILLY [facility] 08-18-2014 influenza, seasonal, injectable Josh Carlsonesjimi REILLY [facility] 10-11-2013 pneumococcal polysaccharide vaccine, 23 valent Josh Carlsonesjimi REILLY [facility] 08-20-2013 influenza virus vaccine, unspecified formulation Josh Reveles [facility] Work Phone: 02-18-2013 tuberculin skin test ; purified protein derivative solution, intradermal Darlynjimi Moreno RN [facility] 07-26-2012 influenza virus vaccine, unspecified formulation Josh Carlsonesa [facility] Work Phone: Payers Date Payer Category Payer Self-pay [id number] 2019 Medicare MEDICARE MEDICAR E A AND B [id number] 2019-Present [phone] [address] [address] [place] [address] Medicare [id number] 2019 Medicare [id number] 2019 Private Health Insurance [facility] AARP SUPPLEMENT [id number] 2019-Present [phone] [address] [place] [address] Indemnity [id number] 2019 Private Health Insurance [id number] 2019 Medicare [id number] 2019 Unknown [id number] 1955 Unknown [id number] .651 1955 Unknown [id number] 2.840.1.691003.3.579.2 .651 Private Health Insurance [facility] [id number] Unknown [id number] Unknown [id number] 2.16840.1.079351.3.579.2 .462 Unknown [id number] 2.16840.1.691849.3.579.2 .462 Unknown [id number] 2.16840.1.114886.3.579.2 .462 Unknown [id number] 2.16840.1.993950.3.579.2 .462 Unknown [id number] 2.16840.1.830967.3.579.2 .462 Unknown [id number] 2.16840.1.431119.3.579.2 .462 Unknown [id number] 2.16840.1.058252.3.579.2 .462 Unknown [id number] 2.16840.1.331800.3.579.2 .462 Unknown [id number] 2.16840.1.706961.3.579.2 .462 Unknown [id number] 2.16840.1.207268.3.579.2 .462 Unknown [id number] 2.16.840.1.456156.3.579.2 .462 Unknown [id number] 2.16.840.1.604220.3.579.2 .462 Unknown [id number] 2.16.840.1.419495.3.579.2 .462 Unknown [id number] 2.16.840.1.537911.3.579.2 .462 Unknown [id number] 2.16.840.1.557141.3.579.2 .462 Unknown [id number] 2.16.840.1.360521.3.579.2 .462 Unknown [id number] 2.16.840.1.135577.3.579.2 .462 Unknown [id number] 2.16.840.1.482891.3.579.2 .462 Unknown [id number] 2.16.840.1.955255.3.579.2 .462 Unknown [id number] 2.16.840.1.024556.3.579.2 .462 Unknown [id number] 2.16.840.1.223075.3.579.2 .462 Unknown [id number] 2.16.840.1.117859.3.579.2 .462 Unknown [id number] 2.16.840.1.254376.3.579.2 .462 Unknown [id number] 2.16840.1.185198.3.579.2 .462 Unknown [id number] 2.16.840.1.189423.3.579.2 .462 Social History Date Type Detail Facility Start: 03-16-2020 End: 01-20-2025 Tobacco smoking status CTIS Smokes tobacco daily [facility] Start: 06-17-1984 History of tobacco use Cigarette Smoker [facility] Start: 06-17-1984 History of tobacco use Pipe Smoker [facility] Start: 03-16-2020 End: 10-04-2020 Cigarettes smoked current (pack per day) - Reported 0.5 [facility] Start: 03-16-2020 End: 08-25-2024 Tobacco use and exposure Smokeless tobacco non-user [facility] Start: 12-22-2021 End: 07-08-2025 Alcohol intake Current drinker of alcohol (finding) [facility] Start: 02-24-2020 End: 05-07-2020 History SDOH Alcohol Frequency 4 [facility] Start: 02-24-2020 End: 05-07-2020 History SDOH Alcohol Std Drinks 1 [facility] Start: 11-08-2021 History SDOH Alcohol Comment 2 mixed drinks per day [facility] Start: 02-24-2020 History SDOH Social Connections Phone 5 [facility] Start: 02-24-2020 History SDOH Social Connections Get Together 2 [facility] Start: 02-24-2020 Education 12 [facility] Start: 06-20-2012 Tobacco Comment smokes ocassionally [facility] Start: 1955 Sex Assigned At Not on file [facility] Start: 11-28-2020 End: 07-28-2022 Exposure to SARS-CoV-2 (event) Not sure [facility] Start: 11-22-2021 End: 11-23-2023 Tobacco smoking status NHIS Unknown if ever smoked [facility] Start: 1955 Sex Assigned At Male [facility] Start: 02-24-2020 End: 10-04-2020 Social connection and isolation panel [facility] Do you belong to any clubs or organizations such as yarsani groups, unions, fraternal or athletic groups, or school groups? No [facility] Are you now , , , , never or living with a partner? [facility] How often to you hav e a drink containing alcohol? 2-3 time sa week [facility] Work Phone: How many standard dr inks containing alcohol do you have on a typical day? 1 or 2 [facility] Work Phone: How often do you hav e 6 or more drinks on 1 occasion? Never [facility] Work Phone: Start: 09-30-2012 How hard is it for you to pay for the very basics like food, housing, medical care, and heating Not hard at all [facility] Do you feel stress - tense, restless, nervous, or anxious, or unable to sleep at night because your mind is troubled all the time - these days [OSQ] Only a little [facility] (I/We) worried rhett er (my/our) food would run out before (I/we) got money to buy more. Never true [facility] Start: 05-24-2023 Alcohol Comment 2 mixed drinks 2 times per week. [facility] Start: 01-15-2025 End: 02-11-2025 Sex Male (finding) [facility] How often to you hav e a drink containing alcohol? 4 or more times a week [facility] Do you belong to any clubs or organizations such as yarsani groups, unions, fraternal or athletic groups, or school groups? Yes [facility] Medical Equipment Procedure Code Equipment Code Equipment Original Text Equipment Identifier Dates Total cholecystectomy with exploration of common bile duct Ligation clip, synthetic polymer, non-bioabsorbable ()[id number] FDA Start: 12-02-2022 Total cholecystectomy with exploration of common bile duct Ligation clip, synthetic polymer, non-bioabsorbable ()[id number] FDA Start: [id number] 5 6148-Simplex P Bone Cement Radiopaque Full Dose Individual Pack - [id number] Start: [id number] 5 6148-Simplex P Bone Cement Radiopaque Full Dose Individual Pack - [id number] Start: [id number] 5 8140-Czl-Bb-A-Kin d Implant - [id number] Start: 10-10-2013 Comment on above: Description: POLY PA TELLA CEMENTED [id number] 4726-Xtm-Bf-A-Kin d Implant - [id number] Start: 10-10-2013 Comment on above: Description: FEMUR C EMENT CR [id number] 6320-Syo-Xc-A-Kin d Implant - [id number] Start: 10-10-2013 Comment on above: Description: HAMILTON ZAZUETA FIXED BEARING CR [id number] 5552-Pyj-Nw-A-Kin d Implant - [id number] Start: 10-10-2013 Comment on above: Description: natural tibia ([id number]) Drug-eluting coronary artery stent, bioabsorbable-primo ymer-coated ()[id number] FDA Start: 09-29-2021 ([id number]) Drug-eluting coronary artery stent, bioabsorbable-primo ymer-coated ()[id number] FDA Start: 09-29-2021 Goals Date Patient Goal [...] 4 05/28/20 1:48 PM George Huffman MD [facility] 10-28-2024 Functional status [facility] Work Phone: 10-30-2022 Functional status [facility] Work Phone: 11-12-2021 Are you deaf, or do you have serious difficulty hearing No 11/12/2021 4:15 PM Tammie Ramirez RN No [facility] 11-12-2021 Are you blind, or do you have serious difficulty seeing, even when wearing glasses No 11/12/2021 4:15 PM Tammie Ramirez RN No [facility] 11-12-2021 Do you have serious difficulty walking or climbing stairs No 11/12/2021 4:15 PM Tammie Ramirez RN No [facility] 11-12-2021 Do you have difficul ty dressing or bathing No 11/12/2021 4:15 PM Tammie Ramirez RN No [facility] 11-12-2021 Because of a physica l, mental, or emotional condition, do you have difficulty doing errands alone such as visiting a physician's office or shopping No 11/12/2021 4:15 PM Tammie Ramirez RN No [facility] Mental Status Date Assessment Result Facility 10-28-2024 [facility]: 10-28-2024 Cognitive function Arousable To Voice/Nam [facility] Work Phone: 12-28-2022 Cognitive function Voice/Name [facility] Work Phone: 12-02-2022 Cognitive function Voice/Name [facility] Work Phone: 10-30-2022 Cognitive function Voice/Name [facility] Work Phone: 07-13-2022 Cognitive function Voice/Name [facility] Work Phone: 11-12-2021 Because of a physica l, mental, or emotional condition, do you have serious difficulty concentrating, remembering, or making decisions No 11/12/2021 4:15 PM Tammie Ramirez RN No [facility] Clinical Notes 11-10-2016 to 08-18-2025 John Mitchell, (R) - 07/15/2025 7:00 AM Low Veliz V, DO - 07/08/2025 10:31 AM Jessie Aguila MA - 07/08/2025 9:55 AM EDTPatient InstructionsDaDain otriz Tech - 07/03/2025 12:20 PM EDT Note Date & Type Note Facility 08-18-2025 Note HNO ID: [id number] Author: SARITHA GREENWOOD PA-C Service: ? Author Type: Physician Wind Project Manager Type: Progress Notes Filed: 08/18/2025 14:02 Note Text: Saritha Greenwood PA-C Department of Orthopaedics Orthopaedics [address] [facility] [address] Dept: [phone] Dept August 18, 2025 CHIEF COMPLAINT: New [...] Patient to consider options and notify via [employer] if wishing to proceed with XIAFLEX or [...] 10/14/1996 SVG to diagonal. STEPHENS to [facility]. CC CORONARY STENT 09/29/2021 Biotronik 2.5x22 [...] PROCEDURE Medications: C (more content not included)... [facility] 08-18-2025 Note HNO ID: [id number] Author: JESSIE SULLIVAN MA Service: ? Author Type: Wind Field Service Manager Type: Progress Notes Filed: 08/18/2025 14:02 Note [...] to contract as well. Denies any pain. [facility] 07-21-2025 [place] [facility] [place] History of Present illness Narrative Radiology [...] PATIENT PRESENTS WITH AN IMPLANTABLE OR ATTACHED HOT METAL CHARGER: No RADIOLOGY DEPARTMENT: MR; Exam(s) Completed: Lower MSK: Hip, right . Anesthesia: No. Aromatherapy Administered: No PERIPHERAL IV DATA: Not applicable SIGNED BY: QUINTEN Daniels) July 15, 2025 7:25 AM documented in this encounter [facility] 07-15-2025 Note HNO ID: [id number] Author: JOHN MITCHELL RT(R) Service: ? Author [...] PATIENT PRESENTS WITH AN IMPLANTABLE OR ATTACHED HOT METAL CHARGER: No RADIOLOGY DEPARTMENT: MR; Exam(s) Completed: Lower MSK: Hip, right . Anesthesia: No. Aromatherapy Administered: No PERIPHERAL IV DATA: Not applicable SIGNED BY: QUINTEN Daniels) July 15, 2025 7:25 AM [facility] 07-08-2025 Note HNO ID: [id number] Author: LOW BRYANT DO Service: ? Author [...] these instructions. Informed Consent Consent Obtained: Verbal Kanona Protocol SIGN IN TIME OUT Recording using gdgt software for draft documentation of the visit was discussed with the patient/authorized medical center representative; all questions welcomed and answered. Patient/authorized medical center representative agreed to proceed [facility] 07-08-2025 History of Present illness Narrative [...] these instructions. Informed Consent Consent Obtained: Verbal Kanona Protocol SIGN IN TIME OUT Recording using gdgt software for draft documentation of the visit was discussed with the patient/authorized medical center representative; all questions welcomed and answered. Patient/authorized medical center representative agreed to proceed Patient presents with: Right Hip Pain: Referred by Blanca Tilley AMB ROOMING INTAKE FLOWSHEET DATA Pain Pain Level: 9 Pain Location: Hip-Right Description: Aching Duration Amount of Time: 1 Duration Units: Weeks Frequency: Continuous Intervention/Comfort measure: Medication documented in this encounter [facility] 07-08-2025 Note HNO ID: [id number] Author: JESSIE SULLIVAN MA Service: ? Author Type: Wind Field Service Manager Type: Progress Notes Filed: 07/08/2025 10:32 Note Text: Patient presents with: Right Hip Pain: [facility] Pain Pain Level: 9 Pain Location: Hip-Right Description: Aching Duration Amount of Time: 1 Duration Units: Weeks Frequency: Continuous Intervention/Comfort measure: Medication [facility] 07-07-2025 Instructions Blanca Tilley APRN.EQUIPMENT PLANNER - 07/07/2025 1:20 PM EDT - I ve prescribed tramadol to picker/puller at [facility] for severe hip pain; use [...] ve referred you to Dr. Bryant, an pathology specialist, for evaluation and possible hip injection if appropriate documented in this encounter [facility] 07-07-2025 Note HNO ID: [id number] Author: BLANCA TILLEY APRN.HORTENCIA Service: ? Author Type: Nurse Practitioner Type: Progress Notes Filed: 07/07/2025 13:21 Note Text: CC: Patient presents with: Follow Up: UC right hip pain. Hurts to even lift leg from gas pedal to brake. No improvement. HPI Recording using gdgt software for draft documentation of the visit was discussed with the patient/authorized medical center representative; all questions welcomed and answered. Patient/authorized medical center representative agreed to proceed The patient is [...] disease) with chronic bronchitis (HCC) 10/07/2013 06/17/2014 VLS401% predicted. COVID-19 07/05/2022 DDD (degenerative disc disease), [...] 10/14/1996 SVG to diagonal. STEPHENS to [facility]AD[facility]. CC CORONARY STENT 09/29/2021 Biotronik 2.5x22 [...] Apply to affected (more content not included)... [facility] 07-07-2025 History of Present illness Narrative CC: Patient presents with: Follow Up: UC right hip pain. Hurts to even lift leg from gas pedal to brake. No improvement. HPI Recording using gdgt software for draft documentation of the visit was discussed with the patient/authorized medical center representative; all questions welcomed and answered. Patient/authorized medical center representative agreed to proceed The patient is [...] disease) with chronic bronchitis (HCC) 10/07/2013 06/17/2014 JIH344% predicted. COVID-19 07/05/2022 DDD (degenerative disc disease), [...] times per week documented in this encounter [facility] 07-03-2025 History of Present illness Narrative Radiology [...] PATIENT PRESENTS WITH AN IMPLANTABLE OR ATTACHED HOT METAL CHARGER: No RADIOLOGY DEPARTMENT: General X-ray: Exam(s) Completed: Pelvis X-Ray: Pelvis with Hip Right PERIPHERAL IV DATA: Not applicable SIGNED BY: Ute Pak July 03, 2025 12:30 PM documented in this encounter [facility] 07-03-2025 Note HNO ID: [id number] Author: DAIN BRYANT Tech Service: ? Author Type: 1St Grade Teacher Type: Progress Notes Filed: 07/03/2025 12:30 Note [...] PATIENT PRESENTS WITH AN IMPLANTABLE OR ATTACHED HOT METAL CHARGER: No RADIOLOGY DEPARTMENT: General X-ray: Exam(s) Completed: Pelvis X-Ray: Pelvis with Hip Right PERIPHERAL IV DATA: Not applicable SIGNED BY: Ute Pak July 03, 2025 12:30 PM [facility] 07-03-2025 Note HNO ID: [id number] Author: PRATEEK MATOS APRN.EQUIPMENT PLANNER Service: ? Author Type: Nurse Practitioner Type: [...] of care. This note was generated using [employer] software. It may contain errors in wording, punctuation, or spelling. Prateek Matos APRN.EQUIPMENT PLANNER History and Record Review Clinical information obtained from an independent historian. History obtained from or confirmed by: parent. External record(s) reviewed: prior outpatient record. Disposition The patient was discharged. OTC Medications were advised: Procedures [facility] 07-03-2025 History of Present illness Narrative [...] of care. This note was generated using [employer] software. It may contain errors in wording, punctuation, or spelling. Prateek Matos APRN.EQUIPMENT PLANNER History and Record Review Clinical information obtained from an independent historian. History obtained from or confirmed by: parent. External record(s) reviewed: prior outpatient record. Disposition The patient was discharged. OTC Medications were advised: Procedures documented in this encounter [facility] 06-16-2025 Radiology Diagnostic study note [facility] Imaging Services [address] [place] [address] Lung Screening MR#: [id number] Acct: [id number] Name: HORACE HENDERSON Rep #: [id number] : 1955 M 69 From: Bassam Chacon MD PCP: Dr. George Vázquez MD Status: R EG CLI Study:Low Dose CT Lung Screening Date of Exam : 06/14/25 Exam# [id number] Ordering Dr: Vangie Roberts NP SOLAR WATER HEATER INSTALLER-C PROCEDURE: LOW DOSE CT LUNG SCREENING 06/14/2025 REASON FOR EXAM: SMOKER COPD. TECHNIQUE: LOW DOSE CT LUNG SCREENING Coronal and Sagittal reconstruction series were provided. One or more dose reduction techniques were used (e.g., Automated exposure control, adjustment of the mA and/or kV according to patient size, use of iterative reconstruction technique). REFERENCE LINK: [employer] Lung-RADS RADIATION DOSE SUMMARY: CTDlvol: 2.39 mGy [...] SCREENING LDCT. Other Significant Findings: Reading Location: [id number] CC: JAMARCUS Roberts; Dr. George Vázquez MD ~ Dog Show Judge: Signed [facility] 05-28-2025 Instructions George Vázquez MD - [...] review all the medicines you take, even hxep-egy-vltulpx medicines. As you get older, the way [...] certain medical conditions. documented in this encounter [facility] 05-28-2025 Note HNO ID: [id number] Author: GEORGE VÁZQUEZ MD Service: ? Author Type: Physician Type: Progress Notes Filed: 05/28/2025 14:56 Note Text: Tim Henderson is a 69 year old male. ERIN Vu was doing reasonably well. He had a rash on his feet, and lower legs for several months. His superintendent landfill operations sent off his toenail, but this came [...] diagnosis) - See (more content not included)... [facility] 05-28-2025 History of Present illness Narrative Subjective Horace Henderson is a 69 year old male. ERIN Vu was doing reasonably well. He had a rash on his feet, and lower legs for several months. His superintendent landfill operations sent off his toenail, but this came [...] wellness note. 2. Coronary artery disease involving [place] coronary artery of [place] heart without angina pectoris - ICD9: 414.01, [...] PCP - General (Internal Medicine) Blanca Tilley, DEWAYNE.EQUIPMENT PLANNER as Car Cooper (Internal Medicine) Outside specialists seen: [place] Zarate [...] associated health risks documented in this encounter [facility] 05-28-2025 Note HNO ID: [id number] Author: GEORGE VÁZQUEZ MD Service: ? Author [...] PCP - General (Internal Medicine) Blanca Tilley APRN.EQUIPMENT PLANNER as Car Cooper (Internal Medicine) Outside specialists seen: [place] Zarate [...] on alcohol intake and associated health risks [facility] 05-05-2025 Evaluation note Diagnosis Onset Date [...] sleep apnea) suspected May 05, 2025 12:55pm [facility] Work Phone: 1(963) 484-491307-07-2025 Evaluation note* Diagnosis Onset Date Resolution Status [...] femoris tendon acute July 21, 2025 7:45am [facility] [employer] Work Phone: 1(371) 232-904204-03-2025 Telephone encounter Note* Telephone Encounter - George Vázquez MD - 01/30/2025 5:10 PM EDT The following approved medication requests have been transmitted electronically. Requested Prescriptions Signed Prescriptions Disp Refills buPROPion SR (WELLBUTRIN SR) 150 mg 12 hr tablet 180 tablet 1 Sig: Take 1 tablet by mouth two times a day. Authorizing Provider: GEORGE VÁZQUEZ MD [facility]04-03-2025 Miscellaneous Notes* Telephone Encounter - George Vázquez [...] 05/28/2025 Evelin Richey LPN [facility] Telephone encounter Note * Telephone Encounter - Evelin Richey LPN - 01/30/2025 2:12 PM EDT Pharmacy is asking for 90 day supply, Last appt: 01/08/2025 Annual Wellness, 05/28/2025 Evelin Richey LPN [facility]03-12-2025 NoteHNO ID: [id number] Author: GEORGE VÁZQUEZ MD Service: ? Author Type: Physician Type: Progress Notes Filed: 01/08/2025 16:22 Note Text: This note was created using [employer]. Subjective Horace Henderson is a 69 year old male. He's had a productive cough with green phlegm, and increased dyspnea on exertion for the past 1.5 to 2 weeks. He had no upper respiratory infection symptoms, fever, or chills. He saw his wet and dry sugar bin operator Dr. Malave today, who ordered a chest [...] Pitting Edema present. Lympha (more content not included)...[facility]03-12[facility] History of Present illness Narrative* George [...] HR SUSTAINED-RELEASE 4. Coronary artery disease involving [place] coronary artery of [place] heart without angina pectoris- ICD9: 414.01, ICD10: I25.10 Stable, per Dr. Malave. 5. Kidney insufficiency - ICD9: 593.9, ICD10: N28.9 Check labs today. 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 January 08, 2025 10:35am Atherosclerosis of coronary artery acute January 20, 2025 2:42pm ALMONTE (dyspnea on exertion) acute January 20, 2025 2:42pm Essential hypertension acute [facility] 2024 2:42pm Presence of stent in coronar [...] apnea) suspec tabitha January 20, 2025 2:42pm ALMOTNE (dyspnea on exertion) acute May 05, 2025 [...] apnea) suspec tabitha May 05, 2025 12:55pm [facility] Work Phone: 1(504) 756-156203-12-2025 Evaluation note* Diagnosis Onset Date Resolution Status Admit Date Cough productive of purulent sputum acute January 08, 2025 10:35am Essential hypertension acute [facility] 2024 10:35am Leg edema acute January 08 10:35am 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 Rebel Sarah RN [facility]03-12-2025 Miscellaneous Notes* Telephone Encounter - Rebel Sarah [...] Patient reports he saw Dr. Malave at [facility] today. Dr. Malave did a EKG and CXR. Reports Dr. Malave advised him he was going to send CXR to pcp as it appears pt may have pneumonia and need an AB. Pt reports he has productive green cough, and SOB. No other symptoms. Please advise patient. [phone] [facility] Telephone encounter Note * Telephone Encounter - Evelin Richey LPN - 01/08/2025 11:43 AM EDT Attempted to call Patient, no answer, wanting to schedule an appt to be evaluated by Dr. Vázquez.Evelin Richey LPN [facility]03-12-2025 Radiology Diagnostic study note [facility] Imaging Services [address] [place] [address] [id number] Chest PA and Lateral MR#: [id number] Acct: [id number] Name: HORACE HENDERSON Rep #: [id number] : 1955 M 69 From: Jeanne Amanda MD PCP: Dr. George Vázquez MD Status: R EG CLI Study:Chest PA and Lateral Date of Exam: 01/08/25 Exam# [id number] Ordering Dr: Ihsan Malave MD EXAM: XR [...] Lateral IMPRESSION: Suggestion of COPD. [facility] CC: Dr. Carrillo Malave MD; Dr. George Vázquez MD ~ Dog Show Judge: Signed [facility]03-12-2025 Telephone encounter Note* Telephone Encounter - Ihsan Christensen RN - 01/08/2025 11:20 AM EDT Patient reports he saw Dr. Malave at [facility] today. Dr. Malave did a EKG and CXR. Reports Dr. Malave advised him he was going to send CXR to pcp as it appears pt may have pneumonia and need an AB. Pt reports he has productive green cough, and SOB. No other symptoms. Please advise patient. [phone] [facility]02-10-2025 NoteHNO ID: [id number] Author: VENITA QUEZADA MA Service: ? Author Type: Wind Field Service Manager Type: Progress Notes Filed: 12/09/2024 16:56 Note [...] MA December 09, 2024 4:54 [facility]02-10-2025 History of Present illness Narrative* Venita Quezada [...] 09, 2024 4:54 PM [facility]25 NotePatient Outreach (NETNAV) HROACE HENDESRON ([id number]) 1955 M Date Time Provider Department 12/09/24 [...] 05/24/2023 Encounter Status:Closed by VENITA QUEZADA on 12/09/24[facility] 10[facility]28-2024 [facility] Medical Records Department [address] [place] [id number] Discharge Summary 10/28/24 1643 MR#: [id number] Acct: [id number] Name: HORACE HENDERSON Rep #: [id number] : 1955 69 From: Vicente Andrews DO PCP: Dr. George Vázquez MD Status:ADM GONZÁLEZ Location: [place] [address] Providers Date of Admission: 10/27/24 Date of [...] a 69-year-old male who presented [facility] ED on 10/27/2024 after a syncopal [...] hypertension, hyperlipidemia, sinus tachycardia ??? Follows with [facility]. [facility] at [facility] 2021. Patient reports no recent chest pain. Repeat echo ordered as noted above. Troponin normal on admit and EKG with no ST changes. Continue home Plavix and statin. Continue home Toprol and nitrate, and holding Lasix and losartan as noted above. 5. Severe COPD with nocturnal hypoxia ??? Follows with [place] [facility]. Noted to have severe COPD secondary [...] hypoxic with (more content not included)...[facility]12-29-2024 Evaluation note* Diagnosis Onset Date Resolution Status Admit Date Acute kidney insufficiency acute October 27, 2024 2:17pm Forehead laceration acute Decem waylon 2023 2:17pm Sinus tachycardia resolved Decembe r 2023 2:17pm Syncope resolved October 27, 2024 2:17pm Atherosclerosis of coronary artery of [place] heart without angina pectoris inactive October 27, [...] January 08, 2025 10:35am Essential hypertension acute [facility] 2024 10:35am Leg edema acute January 08 10:35am 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 January 08, 2025 10:35am [facility] Work Phone: 1(475) 270-100912-29-2024 Evaluation note* Diagnosis Onset Date Resolution Status Admit Date Acute kidney insufficiency acute October 27, 2024 2:17pm Forehead laceration resolved Decem 2023 2:17pm Sinus tachycardia resolved Decembe r 2023 2:17pm Syncope resolved October 27, 2024 2:17pm Atherosclerosis of coronary artery of [place] heart without angina pectoris inactive October 27, 2024 2:17pm Syncope acute November 05, 2 025 12:55pm Tachycardia acute November 05, 2024 12:55pm 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 November 05 12:55pm Hyperlipidemia chronic October 12:55pm 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 November 05 12:55pm Cough productive of purulent sputum acute January 08, 2025 10:35am Essential hypertension acute [facility] 2024 10:35am Leg edema acute January 08 10:35am 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 Author Type: Registered Nurse Type: Progress Notes Filed: 09/24/2024 17:05 Note Text: ED Follow-Up Note Provider Action / FYI: 09/17/24 [facility] ED OON, Reason for ED Visit: Sob 09/24/24 Spk with Pt he noted he has contacted Leyla Roberts [facility] Pulmonology had no return call he then scheduled Appt with Dr. Orellana to establish care mid October, and has Appt for PFT's at [facility] beginning of Oct 2024 Pt noted did not receive any new Rx for Daliresp, or added Spiriva Respimat. Pt wanted to discuss a medication plan with Pulmonology first . Provided Pt with [facility] Pulmonology/ PCP Phone number for a possible sooner ED follow up Appt to address changes in medications made by [facility] ED. Pt noted appreciation. Pt denies CP, [...] the Emergency Department (ED) Location: [facility] Date: 09/17/24 Reason for ED Visit: [...] provided with appropriate counseling: Yes Based on fire hydrant mechanic, the following disposition is advised: No symptoms or symptoms present, not severe. Routed to: No Action Needed KAROL Education Provided this Outreach: No Darlyn Moreno RN September 24, 2024 3:16 [facility]11-26-2024 History of Present illness Narrative* Darlyn Moreno RN - 09/24/2024 2:33 PM EST ED Follow-Up Note Provider Action / FYI: 09/17/24 [facility] ED OON, Reason for ED Visit: Sob 09/24/24 Spk with Pt he noted he has contacted Leyla Roberts [facility] Pulmonology had no return call he then scheduled Appt with Dr. Orellana to establish care mid October, and has Appt for PFT's at [facility] of Oct 2024 Pt noted did not receive any new Rx for Daliresp, or added Spiriva Respimat. Pt wanted to discuss amedication plan with Pulmonology first . Provided Pt with [facility] Pulmonology/ PCP Phone number for a possible sooner ED follow up Appt to address changes in medications made by [facility] ED. Pt noted appreciation. Pt denies CP, [...] the Emergency Department (ED) Location: [facility] Date: 09/17/24 Reason for ED Visit: [...] provided with appropriate counseling: Yes Based on fire hydrant mechanic, the following disposition is advised: No symptoms or symptoms present, not severe. Routed to: No Action Needed KAROL Education Provided this Outreach: No Darlyn Moreno RN September 24, 2024 3:16 PM [facility] in [facility]24 NotePatient Outreach ([facility]) HORACE HENDERSON ([id number]) 1955 Date Time Provider Department 09/24/24 DARLYN MORENO [facility] During your visit today, we recorded the following information about you: Darlyn Moreno RN 09/24/2024 5:05 PM Signed ED Follow-Up Note Provider Action / FYI: 09/17/24 [facility] ED OON, Reason for ED Visit: Sob 09/24/24 Spk with Pt he noted he has contacted Leyla Roberts [facility] Pulmonology had no return call he then scheduled Appt with Dr. Orellana to establish care mid October, and has Appt for PFT's at [facility] beginning of Oct 2024 Pt noted did not receive any new Rx for Daliresp, or added Spiriva Respimat. Pt wanted to discuss a medication plan with Pulmonology first . Provided Pt with [facility] Pulmonology/ PCP Phone number for a possible sooner ED follow up Appt to address changes in medications made by [facility] ED. Pt noted appreciation. Pt denies CP, [...] the Emergency Department (ED) Location: [facility] Date: 09/17/24 Reason for ED Visit: [...] provided with appropriate counseling: Yes Based on fire hydrant mechanic, the following disposition is advised: No symptoms [...] [E78.5] 08/04/2012 Perforated diver (more content not included)...[facility] 09-23-2024 NoteHNO ID: [id number] Author: DARLYN MORENO RN Service: ? Author Type: Registered Nurse Type: Progress Notes Filed: 09/23/2024 15:14 Note Text: ED Follow-Up Note Provider Action / FYI: Location: [facility] OON Date: 09/17/24 Reason for ED [...] RN September 23, 2024 12:17 [facility]11-25-2024 History of Present illness Narrative* Darlyn Moreno RN - 09/23/2024 12:16 PM EST ED Follow-Up Note Provider Action / FYI: Location: [facility] OON Date: 09/17/24 Reason for ED [...] the Emergency Department (ED) Location: [facility] O Date: 09/17/24 Reason for ED [...] 20, 2024 11:29 AM documented in this encounterTr[facility]11-[facility]-2024 NoteHNO ID: [id number] Author: DARLYN MORENO RN Service: ? Author [...] the Emergency Department (ED) Location: [facility] O Date: 09/17/24 Reason for ED [...] Darlyn Moreno RN September 20, 2024 11:29 [facility]11-22-2024 NotePatient Outreach ([facility]) HORACE HENDERSON ([id number]) 1955 Date Time Provider Department 09/20/24 DARLYN [...] the Emergency Department (ED) Location: [facility] OON Date: 09/17/24 Reason for ED [...] Provider Action / FYI: Location: [facility] OON Date: 09/17/24 Reason for ED [...] tablet Take 1 ta (more content not included)...[facility]11-20-2024 Telephone encounter Note* Telephone Encounter - Evelin Richey LPN - 09/18/2024 3:22 PM EST Referral faxed to Dr. Orellana. Evelin Richey LPN [facility]11-20-2024 Miscellaneous Notes* Telephone Encounter - Evelin Richey [...] calling for referral to see a new Patient Observer for COPD. Dr. Orellana. . He was seeing Dr. Hall who is no longer @ [facility]. Debbie Portillo RN documented in this encounterTrumbull [facility]11-20-2024 Telephone encounter Note * Telephone [...] CONSULT TO PULMONARY MEDICINE George Vázquez MD [facility]11-20-2024 Telephone encounter Note* Telephone Encounter - Debbie Portillo RN - 09/18/2024 2:32 PM EST Patient calling for referral to see a new Patient Observer for COPD. Dr. Orellana. . He was seeing Dr. Hall who is no longer @ [facility]. Debbie Portillo RN [facility]11-20-2024 Telephone encounter Note* Telephone Encounter - Evelin Richey LPN - 09/18/2024 2:19 PM EST Spoke to [facility], pharmacy is processing RX for Duoneb, Patient has active RX, 1 prescription on file for Duoneb. Evelin Richey LPN [facility]11-20-2024 Miscellaneous Notes* Telephone Encounter - Evelin Richey LPN - 09/18/2024 2:19 PM EST Spoke to [facility], pharmacy is processing RX for Duoneb, Patient has active RX, 1 prescription on file for Duoneb. Evelin Richey LPN documented in this encounterTrumbull [facility] Center11-14-2024 Instructions* Patient Instructions* George Vázquez MD - 09/12/2024 4:48 PM EST Take an extra metoprolol tablet to slow heart rate. documented in this encounterTrumbull Regional Medical Center11-14-2024 NoteHNO ID: [id number] Author: GEORGE VÁZQUEZ MD Service: ? Author Type: Physician Type: Progress Notes Filed: 09/12/2024 16:57 Note Text: This note was created using [employer]. Subjective Horace Henderson is a 69 year old male. I saw him for COPD exacerbation one week ago, and he was seen in the week before that. He continues to feel vaguely ill. His heart rate has been staying elevated when he checked his oximetry at home. He was finishing doxycycline and just got a call from his field service specialist that he will start Augmentin 2 [...] Coronary artery disease invol (more content not included)...[facility]11-14-2024 History of Present illness Narrative* George [...] and just got a call from his field service specialist that hewill start Augmentin 2 days [...] PRO BNP 2. Coronary artery disease involving [place] coronary artery of [place] heart without angina pectoris- ICD9: 414.01, ICD10: [...] PANEL George Vázquez MD documented in this encounterTrumbull Regional Medical Center11-11-2024 NotePatient Outreach (PULMMN) HORACE HENDERSON ([id number]) 1955 M Date Time Provider Department 09/09/24 JAYLENE CARTER During your visit today, we recorded the following information about you: Allergies As of Date: 09/09/2024 Noted Allergy Reaction LEVOFLOXACIN 06/01/2020 14 - Other: See Comments Comments: Tachycardia. Achilles tendonitis. Date Reviewed: 08/30/2024 Reviewed by: Prateek Matos APRN.EQUIPMENT PLANNER - Fully Assessed Visit Diagnosis:Tobacco abuse [Z72.0] Order(s):CONSULT [facility] [6484253] Order #: [id number]: 1 FUTURE Prescriptions as of 09/12/2024 - [...] reflux disease [K21.9] 05/24/2023 Encounter Status:Closed by Lottay, PRODUSER on 09/12/24[facility] 09-04-2024 NoteHNO ID: [id number] Author: GEORGE VÁZQUEZ MD Service: ? Author Type: Physician Type: Progress Notes Filed: 09/04/2024 16:10 Note Text: This note was created using ForgeRockriter. Subjective Horace Henderson is a 69 year [...] Coronary artery disease involvi (more content not included)...[facility]11-06-2024 History of Present illness Narrative* George Vázquez MD - 09/04/2024 3:35 PM EST This note was created using ForgeRock[employer]. Subjective Horace Henderson is a 69 year [...] MG TABLET 2. Coronary artery disease involving [place] coronary artery of [place] heart without angina pectoris- ICD9: 414.01, ICD10: I25.10 - Stable. If not better, see his field service specialist at [place]. George Vázquez MD documented in this encounterTrumbull [facility] Center11-06-2024 Telephone encounter Note * Telephone Encounter - Evelin Richey LPN - 09/04/2024 2:32 PM EST Patient notified, appt scheduled. Evelin Richey LPN [facility]11-06-2024 Miscellaneous Notes* Telephone Encounter - Evelin Richey [...] [facility]Please advise. documented in this encounterTrumbull Regional Medical Center11-06-2024 Telephone encounter Note * Telephone Encounter - Blanca Tilley APRN.CNP - 09/04/2024 1:54 PM EST Needs appointment Blanca Tilley APRN.EQUIPMENT PLANNER [facility]11-06-2024 Telephone encounter Note* Telephone Encounter [...] another round of antibiotics. [facility] [place].Please advise. [facility]11-01-2024 History of Present illness Narrative* Sotero Landa [...] PATIENT PRESENTS WITH AN IMPLANTABLE OR ATTACHED HOT METAL CHARGER: No RADIOLOGY DEPARTMENT: General X-ray: Exam(s) Completed: Chest X-Ray PERIPHERAL IV DATA: Not applicable SIGNED BY: RT Paula(R) August 30, 2024 10:56 AM documented in this encounterTrumbull Regional Medical Center11-01-2024 History of Present illness Narrative* Prateek Matos APRN.EQUIPMENT PLANNER - 08/30/2024 10:42 AM EDT Subjective HPI [...] increase in SOB, wheeze, x weeks [facility] PAST MEDICAL HISTORY Diagnosis Date Achilles tendinitis of both lower extremities 06/23/2020 Acute on chronic respiratory failure with hypoxia (HCC) 10/30/2022 Arthritis Asthma CAD (coronary artery disease) 01/11/2012 Chronic bronchitis (HCC) 10/07/2013 06/17/2014 PAQ717% predicted. COPD (chronic obstructive pulmonary disease) (HCC) [...] plan ofcare. This note was generated using [employer] software. It may contain errors in wording, punctuation,or spelling. Prateek Matos APRN.HORTENCIA documented in this encounterTrumbull Regional Medical Center10-28-2024 Telephone encounter Note * Telephone Encounter - Ari Anglin MA - 08/26/2024 9:04 AM EDT [facility] is there any subsitute for thrush, requesting another medication? Please return call. Ari Anglin MA [facility]10-28-2024 Miscellaneous Notes* Telephone Encounter - Ari Anglin MA - 08/26/2024 9:04 AM EDT [facility] is there any subsitute for thrush, requesting another medication? Please return call. Ari Anglin MA documented in this encounterTrumbull Regional Medical Center10-27-2024 History of Present illness Narrative* Blanche Nevarez [...] disease) 01/11/2012 Chronic bronchitis (HCC) 10/07/2013 06/17/2014 BWJ518% predicted. COPD (chronic obstructive pulmonary disease) (HCC) [...] 10/14/1996 SVG to diagonal. STEPHENS to LAD. [facility] CC CORONARY STENT 09/29/2021 Biotronik [...] plan. Blanche Nevarez APRN.HORTENCIA documented in this encounterTrumbull Regional Medical Center10-23-2024 History of Present illness Narrative* Darlyn Moreno [...] more often than normal? 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 Routed to: No Action Needed KAROL Education Provided this Outreach: No Darlyn Moreno RN August 21, 2024 2:00 PM documented in this encounterTrumbull Regional Medical Center10-14-2024 History of Present illness Narrative* Blanca Tilley, [employer].EQUIPMENT PLANNER - 08/12/2024 8:53 AM EDT CC Patient [...] Acute on chronic respiratory failure with hypoxia ([facility]) 10/30/2022 Arthritis Asthma CAD (coronary artery disease) 01/11/2012 Chronic bronchitis ([facility]) 10/07/2013 06/17/2014 HIW070% predicted. COPD (chronic obstructive pulmonary disease) ([facility]) COVID-19 07/05/2022 DDD (degenerative disc disease), [...] 10/14/1996 SVG to diagonal. STEPHENS to LAD. [facility]. CC CORONARY STENT 09/29/2021 Biotronik 2.5x22 [...] Patient agreeable to treatment plan. Blanca Tilley APRN.EQUIPMENT PLANNER documented in this encounterTrumbull Regional Medical Center09-27-2024 Telephone encounter Note * Telephone Encounter - Jessie Bernabe LPN - 07/26/2024 8:12 AM EDT Spoke with pt gave information provided. Pt voices understanding. [facility]09-27-2024 Miscellaneous Notes* Telephone Encounter - [...] pt requested pcp to review and advise. iX Lakhani LPN * Telephone Encounter - Kimberlee [...] you. Evelin Richey LPN. documented in this encounterTrumbull Regional Medical Center09-26-2024 Telephone encounter Note * Telephone Encounter - George Vázquez MD - 07/25/2024 7:11 PM EDT He can get blood clots, diabetes, infections, heart failure, tendon rupture, etc. Etc. Etc. Not recommended for frequent or regular use. [facility]09-25-2024 History of Present illness Narrative* Soraya Mendieta MA - 07/24/2024 3:12 PM EDT POPULATION HEALTH NAVIGATION OUTREACH Action/[facility] Community Monitoring Navigation Pool/CDM Discuss/Due for: Follow [...] 1:29 PM EDT POPULATION HEALTH NAVIGATION OUTREACH Action/[facility] Community Monitoring Navigation Pool/CDM Discuss/Due for: Follow [...] more often than normal? 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 Routed to: Navigation Team: PCP visit within 48 hours KAROL Education Provided this Outreach: No Darlyn Moreno RN July 24, 2024 1:11 PM documented in this encounterTrumbull Regional Medical Center09-24-2024 Telephone encounter Note * Telephone Encounter - [...] to review and advise. Xi Lakhani LPN [facility]09-24-2024 Telephone encounter Note* Telephone Encounter - Kimberlee Craft LPN - 07/23/2024 2:19 PM EDT Left a message for pt to call the office and ask to speak to a nurse. Kimberlee Craft LPN [facility]09-24-2024 Telephone encounter Note* Telephone Encounter [...] A Refill not appropriate George Vázquez MD [facility]09-24-2024 Telephone encounter Note* Telephone Encounter - Evelin [...] Please advise. Thank you. Evelin Richey LPN. [facility]09-24-2024 Telephone encounter Note* Telephone Encounter [...] Mitchell MA July 23, 2024 8:11 AM [facility]09-24-2024 Miscellaneous Notes* Telephone Encounter - [...] 23, 2024 8:11 AM documented in this encounterTrumbull Regional Medical Center09-12-2024 History of Present illness Narrative* Hedy Sprague RN - 07/11/2024 12:49 PM EDT [facility] Telephonic Outreach Provider Action/FYI 2nd attempt Contacted for: Routine Telephonic Outreach Contact made with patient: No, left message. Hedy Sprague RN July 11, 2024 12:56 PM documented in this encounterTrumbull [facility] Center09-11-2024 History of Present illness Narrative* Hedy Sprague RN - 07/10/2024 3:08 PM EDT [facility] Telephonic Outreach Provider Action/FYI 1st attempt Contacted for: Routine Telephonic Outreach Contact made with patient: No, left message. Hedy Sprague RN July 10, 2024 3:10 PM documented in this encounterTrumbull [facility] Center08-21-2024 History of Present illness Narrative* Darlyn Moreno RN - 06/19/2024 4:02 PM EDT [facility] Telephonic Outreach Provider Action/FYI Instructed to call PCP with any changes in condition Pt verbalized understanding and appreciation for call Contacted for: Routine Telephonic Outreach Contact made with patient: No, left message. Darlyn Moreno RN June 19, 2024 4:04 PM * Darlyn Moreno RN - 06/18/2024 4:52 PM EDT [facility] Telephonic Outreach Provider Action/FYI Left a message to verify symptom status, instructed to contact PCP for condition changes and needs. Contacted for: Routine Telephonic Outreach Contact made with patient: No, left message. Darlyn Moreno RN June 18, 2024 4:53 PM documented in this encounterTrumbull [facility] Center08-16-2024 Telephone encounter Note * Telephone Encounter - Elsy Moreno LPN - 06/14/2024 10:11 AM EDT Prescription Refill Information Patient stated that is going on an 8 day cruise and is getting all his meds ready for his trip to [facility] The patient has been identified by name [...] Moreno LPN June 14, 2024 10:11 AM [facility]08-16-2024 Miscellaneous Notes* Telephone Encounter - Elsy Moreno LPN - 06/14/2024 10:11 AM EDT Prescription Refill Information Patient stated that is going on an 8 day cruise and is getting all his meds ready for his trip to [facility] The patient has been identified by name [...] 14, 2024 10:11 AM documented in this encounterTrumbull [facility] Center07-29-2024 History of Present illness Narrative* George Vázquez MD - 05/27/2024 12:46 PM EDT This note was created using ForgeRock[employer]. Subjective Horace Henderson is a 68 year old male. He was doing well in general. 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 His other conditions were stable. 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 He was taking metoprolol, but was [...] wellness note. 2. Coronary artery disease involving [place] coronary artery of [place] heart without angina pectoris- ICD9: 414.01, ICD10: I25.10 Stable. - CLOPIDOGREL 75 MG TABLET - METOPROLOL SUCCINATE ER 50 MG TABLET,EXTENDED RELEASE 24 HR 3. Hyperlipidemia, unspecified hyperlipidemia type - ICD9: 272.4, ICD10: E78.5 - Control undetermined, due for labs - He had labs done at [facility]. Request. - EZETIMIBE 10 MG TABLET 4. [...] - General (Internal Medicine) Mauro Lay APRN, EQUIPMENT PLANNER, [facility] (Cardiology) Janine Hall MD, [place] [facility]. Chad Zarate DPM, Podiatry. [facility]. Medical/Family history review Reviewed and [...] not ready to quit documented in this encounterTrumbull [facility] Center07-29-2024 Instructions* Patient Instructions* George Vázquez MD - 05/27/2024 12:37 PM EDT SHINGLES VACCINES X 2. RSV VACCINE X 1. documented in this encounterTrumbull [facility] Center07-24-2024 History of Present illness Narrative* Darlyn Moreno RN - 05/22/2024 11:13 AM EDT CDM Telephonic Outreach Provider Action/FYI CDM: Chronic Bronchitis, Pt denies symptom changes, concerns or needs, Pt follows with Dr. Hall Pulmonology [facility], uses Albuterol inhaler 2-3 x daily [place], Goals, SDH updated Contacted for: Engagement Contact made with patient: Yes Patient identified by name and date of . Discussed care with patient Outcomes: Patient switched from [facility] to telephone outreach Are you experiencing any new or worsening symptoms you need to talk about today? 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 Routed to: No Action Needed KAROL Education Provided this Outreach: No Darlyn Moreno RN May 22, 2024 3:55 PM documented in this encounterTrumbull [facility] Center07-17-2024 Telephone encounter Note * Telephone Encounter - Evelin Richey LPN - 05/15/2024 1:17 PM EDT Called [facility], Patient has an active RX for Omeprazole, [...] Please advise. Thank you. Evelin Richey LPN. [facility]07-17-2024 Miscellaneous Notes* Telephone Encounter - Evelin Richey [...] you. Evelin Richey LPN. documented in this encounterTrumbull Regional [facility] Center06-28-2024 History of Present illness Narrative* [...] 25, 2024 7:58 PM documented in this encounterTrumbull Regional [facility] Center05-02-2024 Telephone encounter Note * Telephone [...] Please advise. Thank you. Phil Mitchell MA. [facility]05-02-2024 Miscellaneous Notes* Telephone Encounter - [...] you. Phil Mitchell MA. documented in this encounterTrumbull Regional Medical Center05-02-2024 Telephone encounter Note * Telephone [...] Please advise. Thank you. Phil Mitchell MA. [facility]05-02-2024 Miscellaneous Notes* Telephone Encounter - [...] you. Phil Mitchell MA. documented in this encounterTrumbull Regional [facility] Center03-26-2024 History of Present illness Narrative* Darlyn Moreno RN - 01/23/2024 4:27 PM EDT CDM Telephonic Outreach Provider Action/FYI CDM: Chronic Bronchitis Left a message to verify symptom status, instructed to contact PCP for condition changes and needs. Contacted for: Engagement Contact made with patient: No, left message. Darlyn Moreno RN January 23, 2024 4:27 PM documented in this encounterTrumbull [facility] Center02-08-2024 History of Present illness Narrative* [...] 06, 2023 12:12 PM documented in this encounterTrumbull Regional [facility] Center12-20-2023 History of Present illness Narrative* [...] 18, 2023 8:05 AM documented in this encounterTrumbull Regional Medical Center12-06-2023 Miscellaneous Notes* Telephone Encounter - Evelin Richey LPN - 10/04/2023 3:29 PM EST Horace our office did receive your refill request however, a new prescription for Bufesonide-Formoterol (Symbicort) was sent to [facility], 10/02/2023. Please check with your pharmacy. Evelin Richey LPN documented in this encounterTrumbull Regional Medical Center12-02-2023 Miscellaneous Notes* Telephone Encounter - Marleni Ernandez - 09/30/2023 11:18 AM EST Requested Prescriptions Pending Prescriptions Disp Refills budesonide-formoterol (SYMBICORT) 160-4.5 mcg/actuation inhaler Sig: Inhale 2 Puffs as instructed two times a day. RAI 05/24/2023 NOV 11/21/2023 Marleni Ernandez MA documented in this [facility]11-09-2023 Miscellaneous Notes* Telephone Encounter - Kimberlee Craft LPN - 09/07/2023 4:51 PM EST Records show a valid rx at the pharmacy. Kimberlee Craft LPN documented in this [facility]10-27-2023 Miscellaneous Notes* Telephone Encounter - Phil Mitchell Ma - 08/25/2023 1:23 PM EDT RAI: 05/24/2023 Last refill: 05/24/2023 QTY: 60 / 18 g Refills: 5 documented in this [facility]09-05-2023 Miscellaneous Notes* Telephone Encounter - Evelin Richey LPN - 07/04/2023 3:49 PM EDT Left message on vm, RX for Duoneb written 05/24/2023 for 60 each, 5 refills. Please check with your pharmacy. Evelin Richey LPN documented in this [facility]08-23-2023 Miscellaneous Notes* Telephone Encounter - Evelin Richey LPN - 06/21/2023 9:13 AM EDT Horace, our office did receive your refill request for Ipratropium-Albuterol (Duoneb) however, a new prescription was sent to [facility] on 05/24/2023 with 5 refills. Check with your pharmacy, they should have the prescription on file waiting for you to call to fill. Evelin Richey LPN documented in this encounterTrumbull [facility] Center08-08-2023 History of Present illness Narrative* [...] 01, 2023 12:09 PM documented in this encounterTrumbull Regional Medical Center07-31-2023 Nurse Note* Allyssa Thomas RN - 05/29/2023 1:06 PM EDT Area to left buttock is without warmth, the edges are well approximated and the incision line is clean, dry and intact. No dressing was in place. Reviewed pathology with patient. Advised that if he has any further questions or concerns, please call our office. Allyssa Thomas RN documented in this encounterTrumbull Regional Medical Center07-26-2023 Instructions* Patient Instructions* George Vázquez MD - 05/24/2023 4:12 PM EDT Have you ever planned for future healthcare decisions with a power of canteen manager, living will, or advance directives? Yes. Have you shared those records with your doctor? No and No. Please bring a copyto your next appointment or email to [email or web address] Advance Directive Forms Advanced Directives Forms (Sinhala) FORMS: [email or web address] INFORMATIONAL BROCHURE: [email or web address]/-/[email or web address] [email or web address]/[email or web address]?la=en Advance Directives (non-Sinhala) FORMS: [email or web address] nce-[email or web address]#forms-tab Please bring completed forms to your next appointment or email them to . Patient Resources How to Get Started Talking with Loved Ones about your Wishes at the End of Life [email or web address]/wp-content/uploads//ConversationProjec t-DtkopSlzmyhiSmz-Snanksh.pdf How to Navigate Conversations with your Care Team around your Preferences [email or web address] documented in this encounterTrumbull Regional Medical Center07-26-2023 History of Present illness Narrative* George Vázquez MD - 05/24/2023 4:09 PM EDT This note was created using ForgeRock[employer]. Subjective Horace Henderson is a 67 year old male. He was doing well. Stress test this morning was negative. GERD was controlled, and he was only taking omeprazole every other day. One month supply of nebulizersolution was requested, normally prescribed by his field service specialist. Review of Systems Constitutional: Negative for [...] J96.21 Stable. 5. Coronary artery disease involving [place] coronary artery of [place] heart without angina pectoris- ICD9: 414.01, ICD10: [...] all Concerns with sexual function:Not at all [place] anxious, stressed, angry, irritable, lonely, isolated, or [...] MD as PCP - General (Internal Medicine) [place], Darlyn Champagne RN as Game Trapper (Internal Medicine) Farooq Hall MD, [place] [facility]. Mauro Lay APRN, [facility]. Chad Zarate, Podiatry, [place]. Jessie Nava MD, Surgery. Omega Javier MD, [...] pharmacy - Depression screening documented in this encounterTrumbull Regional Medical Center07-14-2023 Procedure [facility]03-28-2023 Miscellaneous Notes* Telephone Encounter - Donna Casanova LPN - 01/24/2023 2:16 PM EDT Labs completed at [facility]. BMP to pcp. In scanned labs. Please review. View External Lab - BMP,LFT,lipids [ID [id number]] documented in this encounterTrumbull Regional Medical Center03-22-2023 History of Present illness Narrative* George Vázquez MD - 01/18/2023 3:59 PM EDT This note was created using [employer]Rock[employer]. Subjective Patient presents with: 2 month follow-up Horace Henderson is a 67 year old male. He was doing reasonably well. His hypertension was high, but he had stopped furosemide due to urinary frequency and the need to drive for work. He also stoppedpowdered potassium due to cost. Dysphagia was resolved at this time. He saw his wet and dry sugar bin operator last month and blood pressure was normal. [...] METABOLIC PNL 2. Coronary artery disease involving [place] coronary artery of [place] heart without angina pectoris- ICD9: 414.01, ICD10: [...] 20) George Vázquez MD documented in this encounterTrumbull [facility] Medical Center02-14-2023 Miscellaneous Notes* Telephone Encounter - Evelin Richey [...] for another COVID booster. Please advise at [phone]. documented in this encounterTrumbull Regional Medical Center02-06-2023 Miscellaneous Notes* Telephone Encounter - Evelin Hunt Kaiden MILTON - 12/05/2022 6:[address] Rosamaria Vu wrote a new prescription for Duoneb 11/10/2022 with 3 refills. [facility] Evelin Richey LPN documented in this encounterTrumbull Regional Medical Center01-24-2023 Instructions* Patient Instructions* RENEE Gonzalez [...] pillows when lying down. documented in this encounterTrumbull Regional Medical Center01-24-2023 History of Present illness Narrative* Dalryn Adams RT(R) - 11/22/2022 2:40 PM EST [...] 22, 2022 2:49 PM documented in this encounterTrumbull Regional Medical Center01-24-2023 History of Present illness Narrative* RENEE Gonzalez - 11/22/2022 2:32 PM EST This note was created using ForgeRockriter. Subjective Horace Henderson is a 67 year [...] Acute on chronic respiratory failure with hypoxia ([facility]) 10/30/2022 Arthritis Asthma CAD (coronary artery disease) 01/11/2012 Chronic bronchitis (HCC) 10/07/2013 06/17/2014 LCN923% predicted. COPD (chronic obstructive pulmonary disease) (HCC) [...] right upper extremity. Radial pulse 2+. Normal oncology nurse strength. Skin: General: Skin is warm and [...] ER evaluation. RENEE Gonzalez documented in this encounterTr[facility]01-12-2023 Miscellaneous Notes* Telephone Encounter - Kimberlee Zhanglencho [...] you. Kimberlee Craft LPN documented in this encounterTrumbull Regional Medical Center12-28-2022 Miscellaneous Notes* Telephone Encounter - Evelin Richey LPN - 10/26/2022 4:31 PM EST Patient has Duoneb RX on file at [facility]/[place], pharmacy will get ready for Patient to pickup. Evelin Richey LPN documented in this encounterTrumbull [facility] Medical Center12-15-2022 Miscellaneous Notes* Telephone Encounter - Evelin Richey [...] you. Evelin Richey LPN documented in this encounterTrumbull Regional Medical Center11-28-2022 Miscellaneous Notes* Telephone Encounter - Phil Mitchell Ma - 09/26/2022 2:30 PM EST RAI: 07/28/2022 Last refill: 06/20/2022 QTY: 10 vials Refills: 2 documented in this [facility]11-18-2022 Miscellaneous Notes* Telephone Encounter - Rhea Omer Ma - 09/16/2022 11:06 AM EST Refills at pharmacy documented in this [facility]11-08-2022 Miscellaneous Notes* Telephone Encounter - Evelin Richey LPN - 09/06/2022 8:29 AM EST Pharmacy has RX written 06/20/2022 for Duoneb on file, will get ready for Patient to pickup. Evelin Richey LPN documented in this [facility]10-24-2022 Miscellaneous Notes* Telephone Encounter - Rhea Omer Ma - 08/22/2022 11:25 AM EDT Requesting to local [facility] documented in this [facility]10-17-2022 Miscellaneous Notes* Telephone Encounter - Evelin Richey LPN - 08/15/2022 8:13 PM EDT Called [facility], Patient has refills on Duoneb RX. Pharmacy will get ready for Patient Evelin Richey LPN documented in this [facility]09-29-2022 History of Present illness Narrative* George Vázquez MD - 07/28/2022 4:33 PM EDT This note was created using ForgeRockriter. Subjective Patient presents with: ED Follow-up Horace [...] with pleuritic chest pain and went to [facility] on07/15/22. CTA of the chest CT brain, and CT cervical spine showed no acute disease. ACS was ruled out. He was discharged with short term [place]. He was better. Review of Systems Constitutional: [...] consulation George Vázquez MD documented in this encounterTrumbull [facility] Medical Center09-16-2022 History of Present illness Narrative* Michelle Alonzo PA-C - 07/15/2022 9:30 AM EDT This note was created using ForgeRockriter. Subjective Horace Henderson is a 67 year [...] until the . He was seen at [place] ED and all they did was a [...] disease) 01/11/2012 Chronic bronchitis (HCC) 10/07/2013 06/17/2014 XEL862% predicted. COPD (chronic obstructive pulmonary disease) (HCC) [...] 10/14/1996 SVG to diagonal. [facility] 09/29/2021 Biotronik [...] HISTORY OF 01/05/2006 [facility] REVISE MEDIAN N/CARPAL TUNNEL [...] refused to go back to [facility] as he states they were rude to him and did not really let him tell them what happened. I did get him to agree to go to [facility] however. He states his girlfriend will drive him. I did call report to [place].. Michelle Alonzo PA-C documented in this encounterTrumbull Regional Medical Center09-06-2022 History of Present illness Narrative* Edson Ibrahim APRN.EQUIPMENT PLANNER - 07/05/2022 11:27 AM EDT Horace Henderson [...] disease) 01/11/2012 Chronic bronchitis (HCC) 10/07/2013 06/17/2014 PRK343% predicted. COPD (chronic obstructive pulmonary disease) (HCC) [...] 10/14/1996 SVG to diagonal. STEPHENS to LAD. [facility] CC CORONARY STENT 09/29/2021 Biotronik [...] OF 01/05/2006 stents cardiac x 6, [facility], 2 year intervals REVISE MEDIAN N/CARPAL [...] Discussed expected course of illness Edson Ibrahim APRN.EQUIPMENT PLANNER Molnupiravir Eligibility and Patient Discussion [facility] Formulary Restriction Criteria: Adult outpatients [...] 05, 2022 11:25 AM documented in this encounterTrumbull Regional Medical Center09-06-2022 Instructions* Patient Instructions* Edson Ibrahim APRN.CNP - [...] Discussed expected course of illness Edson Ibrahim APRN.EQUIPMENT PLANNER Fact Sheet for Patients And Caregivers Emergency [...] healthcare provider to share your information with [employer],then your healthcare provider will report your use of molnupiravir during to [employer]. by calling or Pregnancyreporting.ZangZing.Nexx Studio. For individuals who are sexually active with [...] molnupiravir for the treatment of adults with mbwt-jb-ustnjfqz coronavirus disease 2019 (COVID-19) with positive results [...] virus. COVID-19 illnesses have ranged from very zcvq-xs-jyxxgl, including illness resulting in . While information [...] is an investigational medicine used to treat denm-fo-qbfxfkzq COVID-19 in adults: with positive results of [...] serious illnesses Are taking any medicines (prescription, mrcp-qwc-ngfxaui, vitamins, or herbal products). How do I [...] to treat people with COVID-19. Go to https://www.fda.gov/hdosprdtz-mdzdpvqzhoug-lpn-response/pid-mlrgikdddddadlj-oqz- policy-framework/xsjpqtkaz-tnb-rdowlyhsxacju for more information. It is your choice [...] to FDA MedWatch at www.fda.gov/medwatch or call 7-615-PCD-1993 ( ). How should I store molnupiravir? Store molnupiravir capsules at room temperature between 68 F to 77 F (20 C to 25 C). Keep molnupiravir and all medicines out of the reach of children and pets. How can I learn more about COVID-19? Ask your healthcare provider. Visit www.cdc.gov/COVID19 Contact your local or state public health department. Call [employer] at (toll free in the [place] Visit www.molnupiravir.Nexx Studio What Is an Emergency Use Authorization (EUA)? The [place] FDA has made molnupiravir available under an emergency access mechanism called an Emergency Use Authorization (EUA) The EUA is supported by a [place] of Health and Human Service (HHS) declaration that circumstances exist to justify emergency use of drugs and biological products during the COVID-19 pandemic. Molnupiravir for the treatment of pjtq-pn-grzeaeaq COVID-19 in adults with positive results of [...] used under the EUA). For patent information: www.ZangZing.Nexx Studio/research/patent Copyright 2020 [employer] [place], [place] and its affiliates. All rights reserved. [id number] Issued: 10/21/2021 documented in this encounterTrumbull Regional Medical Center09-06-2022 Miscellaneous Notes* Telephone Encounter - Rebel Sarah [...] him in a container. documented in this encounterTrumbull Regional Medical Center09-05-2022 Instructions* Patient Instructions* Sharon Zamora [...] care. Sharon Zamora PA-C documented in this encounterTrumbull Regional Medical Center09-05-2022 History of Present illness Narrative* [...] disease) 01/11/2012 Chronic bronchitis (HCC) 10/07/2013 06/17/2014 GWY822% predicted. COPD (chronic obstructive pulmonary disease) ([facility]) DDD (degenerative disc disease), lumbar 12/13/2013 [...] which included preparing to see the patient, womt-gu-qsub patient care, completing clinical documentation, performing a medically appropriate examination, counseling and educating the patient/family/caregiver, and ordering medications, tests,or procedures. documented in this encounterTrumbull Regional Medical Center08-31-2022 Miscellaneous Notes* Telephone Encounter - Phil Mitchell Ma - 06/29/2022 10:32 AM EDT RAI: 05/09/2022 Last refill: med update. documented in this encounterTrumbull Regional Medical Center08-29-2022 Miscellaneous Notes* Telephone Encounter - Phil Mitchell Ma - 06/27/2022 12:48 PM EDT RAI: 05/09/2022 Last refill: 11/21/2021 QTY: 180 Refills: 3 documented in this encounterTrumbull Regional Medical Center08-22-2022 Miscellaneous Notes* Telephone Encounter - Evelin Richey [...] you. Evelin Richey LPN documented in this encounterTrumbull Regional Medical Center08-01-2022 Miscellaneous Notes* Telephone Encounter - Evelin Richey [...] you. Evelin Richey LPN documented in this encounterTrumbull Regional Medical Center07-27-2022 History of Present illness Narrative* [...] treviño name is Darlyn Moreno RN your Botanical Technical Officer [facility]. I am reaching out today because [...] 25, 2022 3:37 PM documented in this encounterTrumbull Regional Medical Center07-18-2022 Miscellaneous Notes* Telephone Encounter - Kimberlee Craft LPN - 05/16/2022 10:13 AM EDT Pt called and requests referral to gastro and all information be faxed to Dr[facility] Javier at [facility]. Done. Kimberlee Craft LPN documented in this encounterTrumbull Regional Medical Center07-12-2022 Miscellaneous Notes* Telephone Encounter - Kimberlee Craft LPN - 05/10/2022 4:09 PM EDT Gifty with [facility] called for last office visit/labs/procedures done. Identifiedpt with name and date of . They received referral and demographics sheet. Faxed above to [phone]. Kimberlee Craft LPN documented in this encounterTrumbull Regional Medical Center06-27-2022 History of Present illness Narrative* Josh Reveles RN - 04/25/2022 2:01 PM EDT INSIGHT CDM TELEPHONIC OUTREACH Provider Action/FYI: Call to Pt left a message to verify COPD/ Bronchitis status or needs. Contact made with patient: No - Left message Sondralo my name is Darlyn Moreno RN your Botanical Technical Officer from the [facility] I am callingtoday for your [...] 25, 2022 2:01 PM documented in this encounterTrumbull Regional Medical Center06-16-2022 Miscellaneous Notes* Telephone Encounter - Evelin Richey [...] you. Evelin Richey LPN documented in this encounterTrumbull Regional Medical Center06-08-2022 History of Present illness Narrative* Josh Reveles RN - 04/06/2022 1:24 PM EDT INSIGHT CDM TELEPHONIC OUTREACH Provider Action/FYI: Call to Pt left a message to verify COPD/ Bronchitis status or needs. Contact made with patient: No - Left message Qian my name is Darlyn Moreno RN your Botanical Technical Officer from the [facility] I am callingtoday for your [...] Henderson. This is Darlyn Moreno RN your Botanical Technical Officer from the [facility]. I am calling to check in with you concerning the MyChart questionnaire you have been receiving from me. I will call you again tomorrow and am looking forward to speaking with you. (Botanical Technical Officer enters next day in "next patient outreach") Darlyn Moreno RN April 04, 2022 3:54 PM documented in this encounterTrumbull Regional Medical Center05-23-2022 Miscellaneous Notes* Telephone Encounter - [...] advise. Phil Mitchell Ma documented in this encounterTrumbull Regional Medical Center05-23-2022 Miscellaneous Notes* Telephone Encounter - [...] pharmacy. Phil Mitchell Ma documented in this [facility]05-02-2022 History of Present illness Narrative* Josh Reveles RN - 02/28/2022 3:32 PM EDT inSight CDM Engagement Provider Action/FYI: Call to Pt left a vm to verify COPD or other symptoms and needs. Contact Made with Patient: No, first attempt, left message. Qian Willettis. This is Darlyn Moreno RN your Botanical Technical Officer from the [facility]. I am calling to check in with you concerning the MyChart questionnaire you have been receiving from me. I will call you again and am looking forward to speaking with you. (Botanical Technical Officer enters next day in "next patient outreach") Darlyn Moreno RN February 28, 2022 3:33 PM documented in this encounterTrumbull Regional Medical Center04-08-2022 History of Present illness Narrative* Josh Reveles RN - 02/04/2022 3:28 PM EDT inSight CDM Engagement Provider Action/FYI: Call to Pt left a vm to verify COPD or other symptoms and needs. Provided Insight Monitoring questionnaire location and reminder. Contact Made with Patient: No, first attempt, left message. Qian Horace Ihsan [place]. This is Darlyn Moreno RN your Botanical Technical Officer from the [facility]. I am calling to check in with you concerning the MyChart questionnaire you have been receiving from me. I will call you again tomorrow and am looking forward to speaking with you. (Botanical Technical Officer enters next day in "next patient outreach") Darlyn Moreno RN February 04, 2022 3:28 PM documented in this encounterTrumbull Regional Medical Center03-25-2022 History of Present illness Narrative* Josh Reveles RN - 01/21/2022 2:28 PM EDT PRIMARY CARE COORDINATION QUICK NOTE Provider Action/FYI Insight Questionnaire resent via smart phone Patient identified by name and date . 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 [place] heart without angina pectoris chronic COPD (chronic obstructive pulmonary disease) chronic Hyperlipidemia chronic Hypertension [facility] Work Phone: 1(323) 277-589801-01-2022 Evaluation note* Diagnosis Onset Date Resolution Status Presence of stent in coronary artery October, acute 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 [place] heart without angina pectoris chronic COPD (chronic obstructive pulmonary disease) chronic Hyperlipidemia chronic Hypertension chronic Nocturnal hypoxia chronic Smoking greater than 30 pack years chronic 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 Presence of stent in coronary artery October, acute 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 [place] heart without angina pectoris chronic COPD (chronic obstructive pulmonary disease) chronic Hyperlipidemia chronic Hypertension [facility] Work Phone: 1(964) 358-103201-01-2022 Evaluation note* Diagnosis Onset Date Resolution Status Presence of stent in coronary artery October, acute 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 [place] heart without angina pectoris chronic COPD (chronic obstructive pulmonary disease) chronic Hyperlipidemia chronic Hypertension chronic [id number] acute Stage 3 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 [facility] Work Phone: 1(758) 450-917201-01-2022 Evaluation note* Diagnosis Onset Date Resolution Status Presence of stent in coronary artery October, acute Syncope acute Atherosclerosis of coronary artery of [place] heart without angina pectoris chronic COPD (chronic obstructive pulmonary disease) chronic Hyperlipidemia chronic Postprandial epigastric pain chronic Nocturnal hypoxia chronic Solid nodule of lung greater than 8 mm in diameter chronic 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 Shortness of breath on exertion acute Stage 3 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 [facility] Work Phone: 1(328) 636-932403-02-2021 History of Present illness Narrative* Sheryl Hassan [...] 29, 2020 12:51 PM documented in this encounterTrumbull [facility] Center01-12-2017 History of Past illness Narrative* [...] of this encounter (statuses as of 01/21/2022) [facility] illness Narrative* [...] of this encounter (statuses as of 02/04/2022) [facility] illness Narrative* [...] of this encounter (statuses as of 02/23/2022) [facility] Past illness Narrative* [...] of this encounter (statuses as of 02/28/2022) [facility] illness Narrative* [...] of this encounter (statuses as of 03/21/2022) [facility] Narrative* [...] of this encounter (statuses as of 03/21/2022) [facility] Narrative* [...] of this encounter (statuses as of 04/06/2022) [facility] Narrative* [...] of this encounter (statuses as of 04/14/2022) [facility] Narrative* [...] of this encounter (statuses as of 04/21/2022) [facility] Narrative* [...] of this encounter (statuses as of 04/25/2022) [facility] Narrative* [...] of this encounter (statuses as of 05/10/2022) [facility] Narrative* [...] of this encounter (statuses as of 05/16/2022) [facility] Narrative* [...] of this encounter (statuses as of 05/24/2022) [facility] Narrative* [...] of this encounter (statuses as of 05/25/2022) [facility] Narrative* [...] of this encounter (statuses as of 05/30/2022) [facility] Narrative* [...] of this encounter (statuses as of 06/20/2022) [facility] Narrative* [...] of this encounter (statuses as of 06/27/2022) [facility] Narrative* [...] of this encounter (statuses as of 06/29/2022) [facility] Narrative* [...] of this encounter (statuses as of 07/04/2022) [facility] Narrative* [...] of this encounter (statuses as of 07/05/2022) [facility] Narrative* [...] of this encounter (statuses as of 07/05/2022) [facility] Narrative* [...] of this encounter (statuses as of 07/15/2022) [facility] Narrative* [...] of this encounter (statuses as of 07/28/2022) [facility] Narrative* [...] of this encounter (statuses as of 08/16/2022) [facility] Narrative* [...] of this encounter (statuses as of 08/22/2022) [facility] Narrative* [...] of this encounter (statuses as of 08/03/2022) [facility] Narrative* [...] of this encounter (statuses as of 09/06/2022) [facility] Narrative* [...] of this encounter (statuses as of 09/16/2022) [facility] Narrative* [...] of this encounter (statuses as of 09/26/2022) [facility] Narrative* [...] of this encounter (statuses as of 10/13/2022) [facility] Narrative* [...] of this encounter (statuses as of 10/19/2022) [facility] Narrative* [...] of this encounter (statuses as of 11/02/2022) [facility] Narrative* [...] of this encounter (statuses as of 11/10/2022) [facility] Narrative* [...] of this encounter (statuses as of 11/11/2022) [facility] Narrative* [...] of this encounter (statuses as of 11/22/2022) [facility] Narrative* [...] of this encounter (statuses as of 12/06/2022) [facility] Narrative* [...] of this encounter (statuses as of 12/13/2022) [facility] Narrative* [...] of this encounter (statuses as of 01/19/2023) [facility] Narrative* [...] of this encounter (statuses as of 01/31/2023) [facility] Narrative* [...] of this encounter (statuses as of 05/25/2023) [facility] Narrative* [...] of this encounter (statuses as of 05/29/2023) [facility] Narrative* [...] of this encounter (statuses as of 06/07/2023) [facility] Narr[facility]* [...] of this encounter (statuses as of 06/21/2023) [facility]* [...] of this encounter (statuses as of 07/05/2023) [facility] N[facility]* [...] of this encounter (statuses as of 08/25/2023) [facility]* [...] of this encounter (statuses as of 09/08/2023) [facility]arr[facility]* [...] of this encounter (statuses as of 10/02/2023) [facility]arr[facility]* [...] of this encounter (statuses as of 10/03/2023) [facility] Narr[facility]* [...] of this encounter (statuses as of 10/05/2023) [facility] Narrative* [...] of this encounter (statuses as of 12/08/2023) [facility] Narrative* [...] of this encounter (statuses as of 01/23/2024) [facility] note* Diagnosis Chronic bronchitis, unspecified chronic bronchitis type (HCC) documented in this encounter [facility] note* Diagnosis Hyperlipidemia, unspecified hyperlipidemia type- Primary documented in this encounter [facility] note* Diagnosis Primary osteoarthritis of right knee Primary localized osteoarthrosis, lower leg [facility]* Diagnosis Chronic bronchitis, unspecified chronic bronchitis type (HCC) documented in this encounter [facility] note* Diagnosis Chronic bronchitis, unspecified chronic bronchitis type (HCC) documented in this encounter [facility] note* Diagnosis Essential hypertension Unspecified essential hypertension documented in this encounter [facility] note* Diagnosis Oral candidiases- Primary documented [facility] this encounter [facility] note* Diagnosis Suspected COVID-19 virus infection- Primary documented in this encounter [facility] note* Diagnosis Onset Date Resolution Status [id number] acute Stage 3 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 [facility] Work Phone: Evaluation note* Diagnosis Pleuritic chest pain- Primary Painful respiration documented in this encounter [facility] note* Diagnosis Cough syncope- Primary Cough Contusion of right chest wall, subsequent encounter Gallstones Calculus of gallbladder without mention of cholecystitis or obstruction documented in this encounter [facility] note* Diagnosis Onset Date Resolution Status [id number] acute 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 Abdominal discomfort [facility] Work Phone: Evaluation note* Diagnosis Primary osteoarthritis of right knee- Primary Primary localized osteoarthrosis, lower leg documented in this encounter [facility] note* Diagnosis Chronic bronchitis, unspecified chronic bronchitis type (HCC) [facility]* Diagnosis Onset Date Resolution Status [id number] acute 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 Abdominal discomfort chronic Stage 3 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 [facility] Work Phone: Evaluation note* Diagnosis Essential hypertension Unspecified essential hypertension [facility] this [facility]* Diagnosis Onset Date Resolution Status Abdominal discomfort chronic Stage 3 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 [facility] Work Phone: evaluation note* Diagnosis Onset Date Resolution Status Abdominal discomfort chronic 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 Abdominal pain acute Constipation acute History of partial colectomy acute Dyspnea acute Hypoxia acute Influenza A acute COPD exacerbation chronic [facility] Work Phone: evaluation note* Diagnosis Onset Date Resolution Status Abdominal discomfort chronic 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 Abdominal pain acute Constipation acute History of partial colectomy acute Hypoxia acute Influenza A acute COPD exacerbation resolved Dyspnea resolved [facility] Work Phone: evaluation note* Diagnosis Acute pain of right shoulder- Primary Strain of right shoulder, initial encounter documented in this encounter [facility]* Diagnosis Chronic bronchitis, unspecified chronic bronchitis type (HCC) documented in this encounter [facility] note* Diagnosis Onset Date Resolution [...] chronic S/P laparoscopic cholecystectomy acute [facility] Work Phone: Evaluation note* Diagnosis Primary hypertension- Primary Unspecified essential hypertension Coronary artery disease involving [place] coronary artery of [place] heart without angina pectoris Hyperlipidemia, unspecified hyperlipidemia type Chronic bronchitis, unspecified chronic bronchitis type (HCC) Acute on chronic respiratory failure with hypoxia (HCC) Need for vaccination Need for prophylactic vaccination and inoculation against unspecified single disease documented in this encounter [facility] note* Diagnosis Onset Date Resolution [...] Syncope acute Atherosclerosis of coronary artery of [place] heart without angina pectoris chronic COPD (chronic obstructive pulmonary disease) chronic Hyperlipidemia chronic Postprandial epigastric pain chronic Nocturnal hypoxia chronic Solid nodule of lung greater than 8 mm in diameter chronic Stage 3 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 [facility] Work Phone: Evaluation note* Diagnosis Onset Date Resolution Status Nocturnal hypoxia chronic Solid nodule of lung greater than 8 mm in diameter chronic 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 Shortness of breath on exertion acute 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 Shortness of breath on exertion acute Atherosclerosis of coronary artery of [place] heart without angina pectoris chronic COPD (chronic obstructive pulmonary disease) chronic Hyperlipidemia chronic 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 Shortness of breath noneacti ve Exocrine pancreatic insufficiency chronic Postprandial epigastric pain chronic [facility] Work Phone: Evaluation note* Diagnosis Medicare annual wellness visit, subsequent- Primary Routine general medical examination at a health care facility Primary hypertension Unspecified essential hypertension Chronic bronchitis, unspecified chronic bronchitis type (HCC) Acute on chronic respiratory failure with hypoxia (HCC) Coronary artery disease involving [place] coronary artery of [place] heart without angina pectoris Gastroesophageal reflux disease, unspecified whether esophagitis present Tobacco use disorder Hyperlipidemia, unspecified hyperlipidemia type [facility] Infected cyst of skin- Primary Sebaceous cyst Skin cyst Sebaceous cyst [facility] Diagnosis Onset Date Resolution Status Shortness of breath on exertion acute 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 Shortness of breath on exertion acute Atherosclerosis of coronary artery of [place] heart without angina pectoris chronic COPD (chronic obstructive pulmonary disease) chronic Hyperlipidemia chronic 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 Shortness of breath noneacti ve Exocrine pancreatic insufficiency chronic Postprandial epigastric pain [facility] Work Phone: Evaluation note* Diagnosis Chronic bronchitis, unspecified chronic bronchitis type (HCC) [facility] Diagnosis Onset Date Resolution Status Exocrine pancreatic insufficiency chronic Postprandial epigastric pain chronic Shortness of breath on exertion acute Atherosclerosis of coronary artery of [place] heart without angina pectoris chronic COPD (chronic obstructive pulmonary disease) chronic Hyperlipidemia chronic Acute upper respiratory infection acute 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 Nocturnal hypoxia chronic Smoking greater than 30 pack years chronic 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 Tachycardia acute TIA (transient ischemic attack) acute Atherosclerosis of coronary artery of [place] heart without angina pectoris chronic COPD (chronic obstructive pulmonary disease) chronic Hyperlipidemia [facility] Work Phone: Evaluation note* Diagnosis Onset Date Resolution Status Shortness of breath on exertion acute Atherosclerosis of coronary artery of [place] heart without angina pectoris chronic COPD (chronic obstructive pulmonary disease) chronic Hyperlipidemia chronic Acute upper respiratory infection acute 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 Nocturnal hypoxia chronic Smoking greater than 30 pack years chronic 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 Tachycardia acute TIA (transient ischemic attack) acute Atherosclerosis of coronary artery of [place] heart without angina pectoris chronic COPD (chronic obstructive pulmonary disease) chronic Hyperlipidemia [facility] Work Phone: Evaluation note* Diagnosis Chronic bronchitis, unspecified chronic bronchitis type (HCC) documented in this encounter [facility] note* Diagnosis Gastroesophageal reflux disease, unspecified whether esophagitis present documented [facility] this [facility]* Diagnosis Chronic bronchitis, unspecified chronic bronchitis type (HCC)- Primary documented in this encounter [facility] note* Diagnosis Onset Date Resolution Status ALMONTE (dyspnea on exertion) ac love Atherosclerosis of coronary artery of [place] heart without angina pectoris chronic Hyperlipidemia chronic Nocturnal hypoxia chronic Smoking greater than 30 pack years chronic Stage 3 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 [facility] Work Phone: Evaluation note* Diagnosis Gastroesophageal reflux disease, unspecified whether esophagitis present [facility] Diagnosis Essential hypertension Unspecified essential hypertension [facility]* Diagnosis Chronic bronchitis, unspecified chronic bronchitis type (HCC) Gastroesophageal reflux disease, unspecified whether esophagitis present documented in this encounter [facility] note* Diagnosis Medicare annual wellness visit, subsequent- Primary Routine general medical examination at a health care facility Coronary artery disease involving [place] coronary artery of [place] heart without angina pectoris Hyperlipidemia, unspecified hyperlipidemia type Chronic bronchitis, unspecified chronic bronchitis type (HCC) Primary hypertension Unspecified essential hypertension Screening for depression Encounter for screening examination for other mental health and behavioral disorders Gastroesophageal reflux disease, unspecified whether esophagitis present Achilles tendinitis of both lower extremities Acute on chronic respiratory failure with hypoxia (HCC) documented in this encounter [facility] note* Diagnosis Chronic bronchitis, unspecified chronic bronchitis type (HCC) documented in this encounter [facility] note* Diagnosis SOB (shortness of breath) Shortness of breath [facility] Diagnosis Chronic bronchitis, unspecified chronic bronchitis type (HCC) [facility]* Diagnosis Chronic bronchitis, unspecified chronic bronchitis type (HCC) [facility] Diagnosis Acute pain of right [facility] Diagnosis Achilles tendinitis of both lower extremities [facility]* Diagnosis Acute right-sided low back pain without sciatica [facility]* Diagnosis Chest wall pain- Primary Painful respiration Chronic bronchitis, unspecified chronic bronchitis type (HCC) Hyperlipidemia, unspecified hyperlipidemia type Impaired glucose metabolism Impaired glucose tolerance test [facility]* Diagnosis Respiratory infection- Primary Other diseases of respiratory system, not elsewhere classified Thrush Candidiasis of mouth [facility]* Diagnosis Subacute cough- Primary Cough COPD with exacerbation (HCC) Obstructive chronic bronchitis with exacerbation Subacute cough Cough [facility] Diagnosis Subacute cough Cough [facility]* Diagnosis COPD with exacerbation (HCC)- Primary Obstructive chronic bronchitis with exacerbation Coronary artery disease involving [place] coronary artery of [place] heart without angina pectoris [facility]* Diagnosis Tobacco abuse Tobacco use disorder [facility]* Diagnosis Dyspnea, unspecified type- Primary Coronary artery disease involving [place] coronary artery of [place] heart without angina pectoris COPD (chronic obstructive pulmonary disease) with chronic bronchitis (HCC) Obstructive chronic bronchitis without exacerbation Sinus tachycardia Other specified cardiac dysrhythmias [facility]* Diagnosis COPD (chronic obstructive pulmonary disease) with chronic bronchitis (HCC)- Primary Obstructive chronic bronchitis without exacerbation Acute on chronic respiratory failure with hypoxia (HCC) Nodule of lower lobe of left lung (low dose lung CT) [facility]* Diagnosis COPD (chronic obstructive pulmonary disease) with chronic bronchitis (HCC)- Primary Obstructive chronic bronchitis without exacerbation Acute on chronic respiratory failure with hypoxia (HCC) Tobacco use disorder Coronary artery disease involving [place] coronary artery of [place] heart without angina pectoris Kidney insufficiency Unspecified disorder of kidney and ureter [facility] Diagnosis Tobacco use disorder [facility] Diagnosis Medicare annual wellness visit, subsequent- Primary Routine general medical examination at a health care facility Coronary artery disease involving [place] coronary artery of [place] heart without angina pectoris Hyperlipidemia, unspecified hyperlipidemia [...] CT) Other eczema documented [facility] this [facility]* Diagnosis Pain of right hip- Primary Pain of right hip documented in this [facility]* Diagnosis Pain of right hip documented in this encounter [facility]* Diagnosis Acute right hip pain- Primary Pain in joint, pelvic region and thigh Primary osteoarthritis of right hip Primary localized osteoarthrosis, pelvic region and thigh Calcific tendinitis of right hip documented in this encounter [facility]* Diagnosis Acute right hip pain Pain in joint, pelvic region and thigh Trochanteric bursitis of right hip Enthesopathy of hip region Unilateral primary osteoarthritis, right hip documented in this encounter [facility]* Diagnosis Encounter for screening for other musculoskeletal disorder documented in this encounter [facility] Discharge instructionsAmbulatory Orders* Physical Therapy Referral Location: [place] [facility] [place] Phone: Progress note Author Michael Narayan [facility] Date/Time July 21, 2025 8:32am [facility] [address] [place] [address] OFFICE VISIT Date of Service: 07/21/25 MR#: [id number] Acct: [id number] Name: HORACE HENDERSON Rep #: [id number] : 1955 Provider: Dr. David Narayan, Age/Sex: 70/M Location: [facility] Status: Signed Intake Vital Signs 05/05/25 12:58 [...] disease), lumbar Atherosclerosis of coronary artery of [place] heart without angina pectoris Atherosclerosis of coronary [...] by me, Dr. Michael Narayan, DO 07/21/25 0721. Part of today?s visit was documented by [...] arthritis".He saw a doctor, Best Bryant at [facility] and he had a steroid injection about [...] hip MRI that was done at the [facility] prior to his appointment today. He does [...] applicable) CC: Dr. George Vázquez MD ~ [facility] [place] Phone: Reason for referral (narrative)* Diagnostic Procedure Only (Routine) - Closed Specialty Diagnoses / Procedures Referred By Domingo t Referred To Contact XR IMAGING Diagnoses Acute pain of right shoulder Procedures XR SHOULDER GENERAL 3V OR MORE AP/TRUE AP/OTHER RIGHT RADEX SHOULDER COMPLETE MINIMUM [address] [facility] [address] [place] [address] [place] [address] Referral ID Status Reason Start Date Expiration Date V isits Requested Visits Authorized [id number] Closed Auto-Generate d Referral 11/22/2022 12/22/2023 1 1 [facility] for referral (narrative)* Outpatient Procedure (Routine) - New Request Specialty Diagnoses / Procedures Referred By Domingo main Referred To [facility] Diagnoses Coronary artery disease involving [place] coronary artery of [place] heart without angina pectoris Procedures ECG COMPLETE ECG ROUTINE ECG W/LEAST 12 LDS W/I&R George Vázquez MD [address] [place] [address] [facility] [address] [place] [id number] Referral ID Status Reason Start Date Expiration Date Visits Requested Visits Authorized [id number] New Request Auto-Generat ed Referral 4 09/12/2025 1 1 [facility] for referral (narrative)No reason for referral [facility] Work Phone: Reason for visit Narrative* Diagnostic Procedure Only (Urgent) - Closed Specialty Diagnoses / Procedures Referred By Domingo main Referred To Contact XR IMAGING Diagnoses Acute pain of right shoulder Procedures XR SHOULDER [id number] AP/TRUE AP RIGHT RADEX SHOULDER COMPLETE MINIMUM 2 VIEWS [facility] [address] [place] [address] [place] [address] Referral ID Status Reason Start Date Expiration Date V isits Requested Visits Authorized [id number] Closed Auto-Generate d Referral 11/22/2022 12/22/2023 1 1 [facility] for visit Narrative* Diagnostic Procedure Only (Urgent) - Closed Specialty Diagnoses / Procedures Referred By Domingo t Referred To Contact XR IMAGING Diagnoses Pain of right hip Procedures XR HIP GENERAL 3V PELV/AP/LAT RIGHT RADEX HIP UNILATERAL WITH PELVIS 2-3 VIEWS Prateek Matos APRN.EQUIPMENT PLANNER [address] [place] [address] Phone: tel: fax: [place] [address] Referral ID Status Reason Start Date Expiration Date V isits Requested Visits Authorized [id number] Closed Auto-Generate d Referral 07/03/2025 08/02/2026 1 1 [facility] for visit Narrative* MRI/CT (Routine) - Closed Specialty Diagnoses / Procedures Referred By Domingo t Referred To Contact MR IMAGING Diagnoses Encounter for screening for other musculoskeletal disorder Procedures MRI HIP WO IVCON RIGHT MRI ANY JT LOWER EXTREM W/O CONTRAST MATRL Low Bryant, Justin, DO [address] [place] [address] Phone: tel: fax: [place] [address] Referral ID Status Reason Start Date Expiration Date V isits Requested Visits Authorized [id number] Closed Auto-Generate d Referral 07/11/2025 08/10/2026 1 1 [facility] Summary Purpose Family History No Family History Records Found Relationship Condition Age at Onset Recorded Date/T eric father Coronary artery disease Unknown Relationship Condition Age at Onset Recorded Date/T eric father Coronary artery disease Unknown brother Hypertension Unknown grandfather Malignant neoplasm of pancreas Unknown grandmother Cardiac disease Unknown Advance Directives No Advanced Directives Records FoundDocuments on File Type Date 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 Advance Directive(s) 11/12/2021 6:29 AM [...] Will No November 22 3:45pm Power of Economic Development Coordinator No November 22, 2021 3:45pm Advance Directive Response Recorded Date/ Time Name of Medical Power of Economic Development Coordinator ARI AND DI TIERA July 13, 2022 5:08pm Advance Directives Yes September 29, 2021 8:36am Living Will Yes July 13, 2022 5:08pm Power of Economic Development Coordinator Yes June 5:08pm Advance Directive Response Recorded Date/ Time Name of Medical Power of Economic Development Coordinator ARI AND DI TIERA July 13, 2022 4:08pm Advance Directives Yes September 29, 2021 7:36am Living Will Yes July 13, 2022 4:08pm Power of Economic Development Coordinator Yes June 4:08pm Advance Directive Response Recorded Date/ Time Name of Medical Power of Economic Development Coordinator ARI AND DI TIERA July 13, 2022 4:08pm Name of Medical Power of Economic Development Coordinator ARI October 28, 2022 2:38am Advance Directives Yes September 29, 2021 7:36am Living Will Yes October 28 022 2:38am Power of Economic Development Coordinator Yes October 28, 2022 2:38am Advance Directive Response Recorded Date/ Time Name of Medical Power of Economic Development Coordinator ARI AND DI TIERA July 13, 2022 4:08pm Name of Medical Power of Economic Development Coordinator stephanie matos October 28, 2022 4:55am Advance Directives Yes September 29, 2021 7:36am Living Will No October 28 022 4:55am Power of Economic Development Coordinator Yes October 28, 2022 4:55am Advance Directive Response Recorded Date/ Time Name of Medical Power of Economic Development Coordinator stephanie matos October 28, 2022 4:55am Name of Medical Power of Economic Development Coordinator DAUGHTER November 24, 2022 9:18am Advance Directives Yes September 29, 2021 7:36am Living Will Yes November 24 9:18am Power of Economic Development Coordinator Yes November 24, 2022 9:18am Advance Directive Response Recorded Date/ Time Name of Medical Power of Economic Development Coordinator ANALY MATOS December 26, 2022 12:30pm Advance Directives Yes September 29, 2021 8:36am Living Will Yes December 26 12:30pm Power of Economic Development Coordinator Yes December 26, 2022 12:30pm Name of Medical Power of Economic Development Coordinator stephanie matos October 28, 2022 5:55am Name of Medical Power of Economic Development Coordinator DAUGHTER November 24, 2022 10:18am Advance Directive Response Recorded Date/ Time Name of Medical Power of Economic Development Coordinator ANALY MATOS December 26, 2022 12:30pm Advance Directives Yes September 29, 2021 8:36am Living Will No March 17, 2023 4 :37pm Power of Economic Development Coordinator No March 17, 2023 4:37pm Advance Directive Response Recorded Date/ Time Advance Directives Yes September 29, 2021 8:36am Living Will No March 17, 2023 4 :37pm Power of Economic Development Coordinator No March 17, 2023 4:37pm Advance Directive Response Recorded Date/ Time Advance Directives Yes September 29, 2021 7:36am Living Will No March 17, 2023 3 :37pm Power of Economic Development Coordinator No March 17, 2023 3:37pm Advance Directive Response Recorded Date/ Time Living Will No March 17, 2023 4 :37pm Power of Economic Development Coordinator No March 17, 2023 4:37pm Living Will No September 17 5:14pm Power of Economic Development Coordinator Yes September 17, 2024 5:14pm Name of Medical Power of Economic Development Coordinator ari ortega [facility] September 17, 2024 5:14pm Living Will No October 27 5:50pm Power of Economic Development Coordinator Yes October 27, 2024 5:50pm Name of Medical Power of Economic Development Coordinator Stephanie Matos October 27, 2024 5:50pm Advance Directives Yes September 29, 2021 8:36am Advance Directive Response Recorded Date/ Time Living Will No March 17, 2023 4 :37pm Do you have a Healthcare Power of Economic Development Coordinator? No March 17, 2023 4:37pm Living Will No October 27 5:50pm Do you have a Healthcare Power of Economic Development Coordinator? Yes October 27, 2024 5:50pm Name of Medical Power of Economic Development Coordinator Stephanie Matos October 27, 2024 5:50pm Advance Directives Yes September 29, 2021 8:36am Advance Directive Response Recorded Date/ Time Advance Directives Yes September 29, 2021 8:36am Advance Directive Response Recorded Date/ Time Living Will No March 17, 2023 4 :37pm Do you have a Healthcare Power of Economic Development Coordinator? No March 17, 2023 4:37pm Advance Directives [...] angina pectoris Atherosclerosis of coronary artery of [place] heart without angina pectoris COPD (chronic obstructive pulmonary disease) Hyperlipidemia Hypertension Presence of stent in coronary artery Atherosclerosis of coronary artery bypass graft without angina pectoris Atherosclerosis of coronary artery of [place] heart without angina pectoris COPD (chronic obstructive [...] angina pectoris Atherosclerosis of coronary artery of [place] heart without angina pectoris COPD (chronic obstructive pulmonary disease) Hyperlipidemia Hypertension Nocturnal hypoxia Smoking greater than 30 pack years Stage 3 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 Presence of stent in coronary artery Atherosclerosis of coronary artery bypass graft without angina pectoris Atherosclerosis of coronary artery of [place] heart without angina pectoris COPD (chronic obstructive pulmonary disease) Hyperlipidemia Hypertension Chief Complaint 3 M FU PCI w/cardiac stenting PCI w/cardiac stenting ACUTE/SOB POOR BALANCE/LE WKNESS/RX HERE NODULE Reason for Visit Presence of stent in coronary artery Atherosclerosis of coronary artery bypass graft without angina pectoris Atherosclerosis of coronary artery of [place] heart without angina pectoris COPD (chronic obstructive pulmonary disease) Hyperlipidemia Hypertension [id number] Stage 3 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 Chief Complaint ACUTE/SOB NODULE POOR BALANCE/LE WKNESS/RX HERE RIB PAIN WITH BREATHING/MOVEMENT Reason for Visit [id number] Stage 3 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 Chief Complaint ACUTE/SOB NODULE RIB PAIN WITH BREATHING/MOVEMENT POOR BALANCE/LE WKNESS/RX HERE Consult E-ORDER Reason for Visit [id number] Stage 3 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 Abdominal discomfort Chief Complaint ACUTE/SOB NODULE RIB PAIN WITH BREATHING/MOVEMENT Consult E-ORDER 6 M FU GASTROPARESIS POOR BALANCE/LE WKNESS/RX HERE Reason for Visit [id number] Stage 3 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 [...] artery Syncope Atherosclerosis of coronary artery of [place] heart without angina pectoris COPD (chronic obstructive [...] artery Syncope Atherosclerosis of coronary artery of [place] heart without angina pectoris COPD (chronic obstructive pulmonary disease) Hyperlipidemia Postprandial epigastric pain Nocturnal hypoxia Solid nodule of lung greater than 8 mm in diameter Stage 3 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 Shortness of breath on exertion Stage 3 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 Chief Complaint INT LABS/PAPER ORDER STOOL SAMPLE 6 M FU follow up SOB POOR BALANCE/LE WKNESS/RX HERE [facility] 03/17 ER// SOB AND IRREGULAR HEART BEAT [...] on exertion Atherosclerosis of coronary artery of [place] heart without angina pectoris COPD (chronic obstructive pulmonary disease) Hyperlipidemia Stage 3 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 Shortness of breath Exocrine pancreatic insufficiency Postprandial epigastric pain Chief Complaint 6 M FU follow up SOB POOR BALANCE/LE WKNESS/RX HERE [facility] 03/17 ER// SOB AND IRREGULAR HEART BEAT [...] on exertion Atherosclerosis of coronary artery of [place] heart without angina pectoris COPD (chronic obstructive pulmonary disease) Hyperlipidemia Stage 3 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 Shortness of breath Exocrine pancreatic insufficiency Postprandial epigastric pain Chief Complaint follow up SOB POOR BALANCE/LE WKNESS/RX HERE [facility] 03/17 ER// SOB AND IRREGULAR HEART BEAT Shortness of breath 3 MO FU CHRONIC OBSTRUCTIVE PULMONARY DISEASE CHRONIC OBSTRUCTIVE PULMONARY DISEASE Shortness of breath Shortness of breath FOLLOW MASS Reason for Visit Shortness of breath on exertion Stage 3 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 Shortness of breath on exertion Atherosclerosis of coronary artery of [place] heart without angina pectoris COPD (chronic obstructive [...] on exertion Atherosclerosis of coronary artery of [place] heart without angina pectoris COPD (chronic obstructive pulmonary disease) Hyperlipidemia Acute upper respiratory infection Stage 3 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 Nocturnal hypoxia Smoking greater than 30 pack years Stage 3 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 Tachycardia TIA (transient ischemic attack) Atherosclerosis of coronary artery of [place] heart without angina pectoris COPD (chronic obstructive [...] on exertion Atherosclerosis of coronary artery of [place] heart without angina pectoris COPD (chronic obstructive pulmonary disease) Hyperlipidemia Acute upper respiratory infection Stage 3 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 Nocturnal hypoxia Smoking greater than 30 pack years Stage 3 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 Tachycardia TIA (transient ischemic attack) Atherosclerosis of coronary artery of [place] heart without angina pectoris COPD (chronic obstructive pulmonary disease) Hyperlipidemia Chief Complaint CHRONIC OBSTRUCTIVE PULMONARY DISEASE CHRONIC OBSTRUCTIVE PULMONARY DISEASE Shortness of breath Shortness of breath FOLLOW MASS 6 M FU COUGH, CONGESTED 5 m fu 2 ORDERING- E ORDERS 4 M FU TIA INT LABSPEC Tachycardia, unspecified Reason for Visit Shortness of breath on exertion Atherosclerosis of coronary artery of [place] heart without angina pectoris COPD (chronic obstructive pulmonary disease) Hyperlipidemia Acute upper respiratory infection Stage 3 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 Nocturnal hypoxia Smoking greater than 30 pack years Stage 3 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 Tachycardia TIA (transient ischemic attack) Atherosclerosis of coronary artery of [place] heart without angina pectoris COPD (chronic obstructive pulmonary disease) Hyperlipidemia Chief Complaint Tachycardia, unspeci fied 3 M FU 3 M FU ALMONTE Reason for Visit ALMONTE (dyspnea on exer tion) Atherosclerosis of coronary artery of [place] heart without angina pectoris Hyperlipidemia Nocturnal hypoxia [...] check and EKG: see clinicals. Norma Bradshaw [facility] 2024 9:53am 2 M FU January 08, 2025 10: 35am EORDERS January 08, 2025 10: 45am Reason for Visit Admit Date Acute kidney insufficiency September 2:17pm Forehead laceration October 27, 2024 2:17pm Sinus tachycardia October 27, 2024 2:17pm Syncope October 27, 2024 2:17pm Atherosclerosis of coronary artery of [place] heart without angina pectoris October 27, 2024 [...] check and EKG: see clinicals. Norma Bradshaw [facility] 2024 9:53am 2 M FU January 08, [...] 2024 2:17pm Atherosclerosis of coronary artery of [place] heart without angina pectoris October 27, 2024 2:17pm Syncope November 05, 2024 12 :55pm Tachycardia November 05, 2024 12 :55pm Atherosclerosis of coronary artery bypass graft without angina pectoris November 05, 2024 12:55pm Hyperlipidemia November 05, 2024 12 :55pm Stage 3 severe COPD by GOLD classificati on November 05, 2024 12:55pm Cough productive of purulent sputum [facility] 2024 10:35am Essential hypertension January 08, 2025 10:35am Leg edema January 08, 2025 10: 35am Atherosclerosis of coronary artery bypass graft without angina pectoris January 08, 2025 10:35am Atherosclerosis of coronary artery January 20, 2025 2:42pm ALMONTE (dyspnea on exertion) January 20 2:42pm Essential hypertension January 20, 2025 2:42pm Presence of stent in coronary artery [facility] 2024 2:42pm Atherosclerosis of coronary artery [...] check and EKG: see clinicals. Norma Bradshaw [facility] 2024 9:53am 2 M FU January 08, [...] 2:42pm Presence of stent in coronary artery [facility] 2024 2:42pm Atherosclerosis of coronary artery [...] Date High Risk Chronic Disease Home Monitoring [facility] 03/16/2023 Problem Noted Date Diagnosed Date High Risk Chronic Disease Home Monitoring [facility] 03/16/2023 Problem Noted Date Diagnosed Date High Risk Chronic Disease Home Monitoring [facility] 03/16/2023 Problem Noted Date Diagnosed Date High Risk Chronic Disease Home Monitoring [facility] 03/16/2023 Problem Noted Date Diagnosed Date High Risk Chronic Disease Home Monitoring [facility] 03/16/2023 Problem Noted Date Diagnosed Date High Risk Chronic Disease Home Monitoring [facility] 03/16/2023 Problem Noted Date Diagnosed Date High Risk Chronic Disease Home Monitoring [facility] 03/16/2023 Active Problems Noted Date Diagnosed Date High Risk Chronic Disease Home Monitoring Proble m 03/16/2023 Reason for Referral Specialty Diagnoses / Procedures Referred By Contac t Referred To Contact Orthopedics Diagnoses Strain of right shoulder, initial encounter Procedures CONSULT TO ORTHOPAEDICS OFFICE/OUTPATIENT [facility] MDM 60-[address] [facility] [address] [place] [address] Referral ID Status Reason Start Date Expiration Date Visits Requested Visits Authorized [id number] Authorized PCP Requested Referral 11/22/2022 11/22/2023 1 1 Specialty Diagnoses / Procedures Referred By Contac t Referred To Contact XR IMAGING Diagnoses Acute pain of right shoulder Procedures XR SHOULDER GENERAL 3V OR MORE AP/TRUE AP/OTHER RIGHT RADEX SHOULDER COMPLETE MINIMUM 2 VIEWS [facility] [address] [place] [address] Xr Imaging Referral ID Status Reason Start Date Expiration Date V isits Requested Visits Authorized [id number] Closed Auto-Generate d Referral 11/22/2022 12/22/2023 1 1 Specialty Diagnoses / Procedures Referred By Contac t Referred To Contact XR IMAGING Diagnoses Acute pain of right shoulder Procedures XR SHOULDER [id number] AP/TRUE AP RIGHT RADEX SHOULDER COMPLETE MINIMUM 2 VIEWS [facility] [address] [place] [address] Xr Imaging Referral ID Status Reason Start Date Expiration Date V isits Requested Visits Authorized [id number] Closed Auto-Generate d Referral 11/22/2022 12/22/2023 1 1 Specialty Diagnoses / Procedures Referred By Contac t Referred To Contact Blanca Tilley APRN.[employer] [address] [place] [address] Referral ID Status Reason Start Date Expiration Date V isits Requested Visits Authorized [id number] Pending Review 1 1 Specialty Diagnoses / Procedures Referred By Contac t Referred To Contact Diagnoses COPD (chronic obstructive pulmonary disease) with chronic bronchitis (HCC) Acute on chronic respiratory failure with hypoxia (HCC) Nodule of lower lobe of left lung Procedures CONSULT TO PULMONARY MEDICINE George Vázquez MD [address] [place] [address] Referral ID Status Reason Start Date Expiration Date Visits Requested Visits Authorized [id number] Ref Not Required PCP Requested Referral 4 12/17/2024 1 1 Additional Source Comments (unrecognized sect ion and content) No Status Records FoundNo Status Records FoundNo Status Records FoundNo Status Records Found INFORMATION SOURCE (unrecogn ized section and content) DATE CREATED AUTHOR 01/25/2021 Mio Segura [facility] DATE CREATED AUTHOR AUTHOR'S ORGANIZ ATION 07/30/[address] [facility] DATE CREATED AUTHOR AUTHOR'S ORGANIZ ATION 08/30/2025 [facility] DATE CREATED AUTHOR AUTHOR'S ORGANIZ ATION 09/02/2025 [facility] Source Comments (unrecognize d section and content) In the event this informatio n is protected by the Federal Confidentiality of Alcohol and Drug Abuse Patient Records regulations: The Federal rules restrict any use of the information to criminally investigate or prosecute any alcohol or drug abuse patient.[facility] the event this information is protected by the Federal Confidentiality of Alcohol and Drug Abuse Patient Records regulations: The Federal rules restrict any use of the information to criminally investigate or prosecute any alcohol or drug abuse patient.[facility] CenterIn the event this information is protected by the Federal Confidentiality of Alcohol and Drug Abuse Patient Records regulations: The Federal rules restrict any use of the information to criminally investigate or prosecute any alcohol or drug abuse patient.[facility] CenterIn the event this information is protected by the Federal Confidentiality of Alcohol and Drug Abuse Patient Records regulations: The Federal rules restrict any use of the information to criminally investigate or prosecute any alcohol or drug abuse patient.[facility] CenterIn the event this information is protected by the Federal Confidentiality of Alcohol and Drug Abuse Patient Records regulations: The Federal rules restrict any use of the information to criminally investigate or prosecute any alcohol or drug abuse patient.[facility] CenterIn the event this information is protected by the Federal Confidentiality of Alcohol and Drug Abuse Patient Records regulations: The Federal rules restrict any use of the information to criminally investigate or prosecute any alcohol or drug abuse patient.[facility] CenterIn the event this information is protected by the Federal Confidentiality of Alcohol and Drug Abuse Patient Records regulations: The Federal rules restrict any use of the information to criminally investigate or prosecute any alcohol or drug abuse patient.[facility] CenterIn the event this information is protected by the Federal Confidentiality of Alcohol and Drug Abuse Patient Records regulations: The Federal rules restrict any use of the information to criminally investigate or prosecute any alcohol or drug abuse patient.[facility] CenterIn the event this information is protected by the Federal Confidentiality of Alcohol and Drug Abuse Patient Records regulations: The Federal rules restrict any use of the information to criminally investigate or prosecute any alcohol or drug abuse patient.[facility] CenterIn the event this information is protected by the Federal Confidentiality of Alcohol and Drug Abuse Patient Records regulations: The Federal rules restrict any use of the information to criminally investigate or prosecute any alcohol or drug abuse patient.[facility] CenterIn the event this information is protected by the Federal Confidentiality of Alcohol and Drug Abuse Patient Records regulations: The Federal rules restrict any use of the information to criminally investigate or prosecute any alcohol or drug abuse patient.[facility] CenterIn the event this information is protected by the Federal Confidentiality of Alcohol and Drug Abuse Patient Records regulations: The Federal rules restrict any use of the information to criminally investigate or prosecute any alcohol or drug abuse patient.[facility] CenterIn the event this information is protected by the Federal Confidentiality of Alcohol and Drug Abuse Patient Records regulations: The Federal rules restrict any use of the information to criminally investigate or prosecute any alcohol or drug abuse patient.[facility] CenterIn the event this information is protected by the Federal Confidentiality of Alcohol and Drug Abuse Patient Records regulations: The Federal rules restrict any use of the information to criminally investigate or prosecute any alcohol or drug abuse patient.[facility] CenterIn the event this information is protected by the Federal Confidentiality of Alcohol and Drug Abuse Patient Records regulations: The Federal rules restrict any use of the information to criminally investigate or prosecute any alcohol or drug abuse patient.[facility] CenterIn the event this information is protected by the Federal Confidentiality of Alcohol and Drug Abuse Patient Records regulations: The Federal rules restrict any use of the information to criminally investigate or prosecute any alcohol or drug abuse patient.[facility] CenterIn the event this information is protected by the Federal Confidentiality of Alcohol and Drug Abuse Patient Records regulations: The Federal rules restrict any use of the information to criminally investigate or prosecute any alcohol or drug abuse patient.[facility] CenterIn the event this information is protected by the Federal Confidentiality of Alcohol and Drug Abuse Patient Records regulations: The Federal rules restrict any use of the information to criminally investigate or prosecute any alcohol or drug abuse patient.[facility] CenterIn the event this information is protected by the Federal Confidentiality of Alcohol and Drug Abuse Patient Records regulations: The Federal rules restrict any use of the information to criminally investigate or prosecute any alcohol or drug abuse patient.[facility] CenterIn the event this information is protected by the Federal Confidentiality of Alcohol and Drug Abuse Patient Records regulations: The Federal rules restrict any use of the information to criminally investigate or prosecute any alcohol or drug abuse patient.[facility] CenterIn the event this information is protected by the Federal Confidentiality of Alcohol and Drug Abuse Patient Records regulations: The Federal rules restrict any use of the information to criminally investigate or prosecute any alcohol or drug abuse patient.[facility] CenterIn the event this information is protected by the Federal Confidentiality of Alcohol and Drug Abuse Patient Records regulations: The Federal rules restrict any use of the information to criminally investigate or prosecute any alcohol or drug abuse patient.[facility] CenterIn the event this information is protected by the Federal Confidentiality of Alcohol and Drug Abuse Patient Records regulations: The Federal rules restrict any use of the information to criminally investigate or prosecute any alcohol or drug abuse patient.[facility] CenterIn the event this information is protected by the Federal Confidentiality of Alcohol and Drug Abuse Patient Records regulations: The Federal rules restrict any use of the information to criminally investigate or prosecute any alcohol or drug abuse patient.[facility] CenterIn the event this information is protected by the Federal Confidentiality of Alcohol and Drug Abuse Patient Records regulations: The Federal rules restrict any use of the information to criminally investigate or prosecute any alcohol or drug abuse patient.[facility] CenterIn the event this information is protected by the Federal Confidentiality of Alcohol and Drug Abuse Patient Records regulations: The Federal rules restrict any use of the information to criminally investigate or prosecute any alcohol or drug abuse patient.[facility] CenterIn the event this information is protected by the Federal Confidentiality of Alcohol and Drug Abuse Patient Records regulations: The Federal rules restrict any use of the information to criminally investigate or prosecute any alcohol or drug abuse patient.[facility] CenterIn the event this information is protected by the Federal Confidentiality of Alcohol and Drug Abuse Patient Records regulations: The Federal rules restrict any use of the information to criminally investigate or prosecute any alcohol or drug abuse patient.[facility] CenterIn the event this information is protected by the Federal Confidentiality of Alcohol and Drug Abuse Patient Records regulations: The Federal rules restrict any use of the information to criminally investigate or prosecute any alcohol or drug abuse patient.[facility] CenterIn the event this information is protected by the Federal Confidentiality of Alcohol and Drug Abuse Patient Records regulations: The Federal rules restrict any use of the information to criminally investigate or prosecute any alcohol or drug abuse patient.[facility] CenterIn the event this information is protected by the Federal Confidentiality of Alcohol and Drug Abuse Patient Records regulations: The Federal rules restrict any use of the information to criminally investigate or prosecute any alcohol or drug abuse patient.[facility] CenterIn the event this information is protected by the Federal Confidentiality of Alcohol and Drug Abuse Patient Records regulations: The Federal rules restrict any use of the information to criminally investigate or prosecute any alcohol or drug abuse patient.[facility] CenterIn the event this information is protected by the Federal Confidentiality of Alcohol and Drug Abuse Patient Records regulations: The Federal rules restrict any use of the information to criminally investigate or prosecute any alcohol or drug abuse patient.[facility] CenterIn the event this information is protected by the Federal Confidentiality of Alcohol and Drug Abuse Patient Records regulations: The Federal rules restrict any use of the information to criminally investigate or prosecute any alcohol or drug abuse patient.[facility] the event this information is protected by the Federal Confidentiality of Alcohol and Drug Abuse Patient Records regulations: The Federal rules restrict any use of the information to criminally investigate or prosecute any alcohol or drug abuse patient.[facility] CenterIn the event this information is protected by the Federal Confidentiality of Alcohol and Drug Abuse Patient Records regulations: The Federal rules restrict any use of the information to criminally investigate or prosecute any alcohol or drug abuse patient.[facility] CenterIn the event this information is protected by the Federal Confidentiality of Alcohol and Drug Abuse Patient Records regulations: The Federal rules restrict any use of the information to criminally investigate or prosecute any alcohol or drug abuse patient.[facility] CenterIn the event this information is protected by the Federal Confidentiality of Alcohol and Drug Abuse Patient Records regulations: The Federal rules restrict any use of the information to criminally investigate or prosecute any alcohol or drug abuse patient.[facility] CenterIn the event this information is protected by the Federal Confidentiality of Alcohol and Drug Abuse Patient Records regulations: The Federal rules restrict any use of the information to criminally investigate or prosecute any alcohol or drug abuse patient.[facility] CenterIn the event this information is protected by the Federal Confidentiality of Alcohol and Drug Abuse Patient Records regulations: The Federal rules restrict any use of the information to criminally investigate or prosecute any alcohol or drug abuse patient.[facility] CenterIn the event this information is protected by the Federal Confidentiality of Alcohol and Drug Abuse Patient Records regulations: The Federal rules restrict any use of the information to criminally investigate or prosecute any alcohol or drug abuse patient.[facility] CenterIn the event this information is protected by the Federal Confidentiality of Alcohol and Drug Abuse Patient Records regulations: The Federal rules restrict any use of the information to criminally investigate or prosecute any alcohol or drug abuse patient.[facility] CenterIn the event this information is protected by the Federal Confidentiality of Alcohol and Drug Abuse Patient Records regulations: The Federal rules restrict any use of the information to criminally investigate or prosecute any alcohol or drug abuse patient.[facility] CenterIn the event this information is protected by the Federal Confidentiality of Alcohol and Drug Abuse Patient Records regulations: The Federal rules restrict any use of the information to criminally investigate or prosecute any alcohol or drug abuse patient.[facility] CenterIn the event this information is protected by the Federal Confidentiality of Alcohol and Drug Abuse Patient Records regulations: The Federal rules restrict any use of the information to criminally investigate or prosecute any alcohol or drug abuse patient.[facility] CenterIn the event this information is protected by the Federal Confidentiality of Alcohol and Drug Abuse Patient Records regulations: The Federal rules restrict any use of the information to criminally investigate or prosecute any alcohol or drug abuse patient.[facility] CenterIn the event this information is protected by the Federal Confidentiality of Alcohol and Drug Abuse Patient Records regulations: The Federal rules restrict any use of the information to criminally investigate or prosecute any alcohol or drug abuse patient.[facility] CenterIn the event this information is protected by the Federal Confidentiality of Alcohol and Drug Abuse Patient Records regulations: The Federal rules restrict any use of the information to criminally investigate or prosecute any alcohol or drug abuse patient.[facility] CenterIn the event this information is protected by the Federal Confidentiality of Alcohol and Drug Abuse Patient Records regulations: The Federal rules restrict any use of the information to criminally investigate or prosecute any alcohol or drug abuse patient.[facility] CenterIn the event this information is protected by the Federal Confidentiality of Alcohol and Drug Abuse Patient Records regulations: The Federal rules restrict any use of the information to criminally investigate or prosecute any alcohol or drug abuse patient.[facility] CenterIn the event this information is protected by the Federal Confidentiality of Alcohol and Drug Abuse Patient Records regulations: The Federal rules restrict any use of the information to criminally investigate or prosecute any alcohol or drug abuse patient.[facility] CenterIn the event this information is protected by the Federal Confidentiality of Alcohol and Drug Abuse Patient Records regulations: The Federal rules restrict any use of the information to criminally investigate or prosecute any alcohol or drug abuse patient.[facility] CenterIn the event this information is protected by the Federal Confidentiality of Alcohol and Drug Abuse Patient Records regulations: The Federal rules restrict any use of the information to criminally investigate or prosecute any alcohol or drug abuse patient.[facility] CenterIn the event this information is protected by the Federal Confidentiality of Alcohol and Drug Abuse Patient Records regulations: The Federal rules restrict any use of the information to criminally investigate or prosecute any alcohol or drug abuse patient.[facility] CenterIn the event this information is protected by the Federal Confidentiality of Alcohol and Drug Abuse Patient Records regulations: The Federal rules restrict any use of the information to criminally investigate or prosecute any alcohol or drug abuse patient.[facility] CenterIn the event this information is protected by the Federal Confidentiality of Alcohol and Drug Abuse Patient Records regulations: The Federal rules restrict any use of the information to criminally investigate or prosecute any alcohol or drug abuse patient.[facility] CenterIn the event this information is protected by the Federal Confidentiality of Alcohol and Drug Abuse Patient Records regulations: The Federal rules restrict any use of the information to criminally investigate or prosecute any alcohol or drug abuse patient.[facility] CenterIn the event this information is protected by the Federal Confidentiality of Alcohol and Drug Abuse Patient Records regulations: The Federal rules restrict any use of the information to criminally investigate or prosecute any alcohol or drug abuse patient.[facility] CenterIn the event this information is protected by the Federal Confidentiality of Alcohol and Drug Abuse Patient Records regulations: The Federal rules restrict any use of the information to criminally investigate or prosecute any alcohol or drug abuse patient.[facility] CenterIn the event this information is protected by the Federal Confidentiality of Alcohol and Drug Abuse Patient Records regulations: The Federal rules restrict any use of the information to criminally investigate or prosecute any alcohol or drug abuse patient.[facility] CenterIn the event this information is protected by the Federal Confidentiality of Alcohol and Drug Abuse Patient Records regulations: The Federal rules restrict any use of the information to criminally investigate or prosecute any alcohol or drug abuse patient.[facility] CenterIn the event this information is protected by the Federal Confidentiality of Alcohol and Drug Abuse Patient Records regulations: The Federal rules restrict any use of the information to criminally investigate or prosecute any alcohol or drug abuse patient.[facility] CenterIn the event this information is protected by the Federal Confidentiality of Alcohol and Drug Abuse Patient Records regulations: The Federal rules restrict any use of the information to criminally investigate or prosecute any alcohol or drug abuse patient.[facility] CenterIn the event this information is protected by the Federal Confidentiality of Alcohol and Drug Abuse Patient Records regulations: The Federal rules restrict any use of the information to criminally investigate or prosecute any alcohol or drug abuse patient.[facility] CenterIn the event this information is protected by the Federal Confidentiality of Alcohol and Drug Abuse Patient Records regulations: The Federal rules restrict any use of the information to criminally investigate or prosecute any alcohol or drug abuse patient.[facility] CenterIn the event this information is protected by the Federal Confidentiality of Alcohol and Drug Abuse Patient Records regulations: The Federal rules restrict any use of the information to criminally investigate or prosecute any alcohol or drug abuse patient.[facility] CenterIn the event this information is protected by the Federal Confidentiality of Alcohol and Drug Abuse Patient Records regulations: The Federal rules restrict any use of the information to criminally investigate or prosecute any alcohol or drug abuse patient.[facility] CenterIn the event this information is protected by the Federal Confidentiality of Alcohol and Drug Abuse Patient Records regulations: The Federal rules restrict any use of the information to criminally investigate or prosecute any alcohol or drug abuse patient.[facility] CenterIn the event this information is protected by the Federal Confidentiality of Alcohol and Drug Abuse Patient Records regulations: The Federal rules restrict any use of the information to criminally investigate or prosecute any alcohol or drug abuse patient.[facility] CenterIn the event this information is protected by the Federal Confidentiality of Alcohol and Drug Abuse Patient Records regulations: The Federal rules restrict any use of the information to criminally investigate or prosecute any alcohol or drug abuse patient.[facility] CenterIn the event this information is protected by the Federal Confidentiality of Alcohol and Drug Abuse Patient Records regulations: The Federal rules restrict any use of the information to criminally investigate or prosecute any alcohol or drug abuse patient.[facility] CenterIn the event this information is protected by the Federal Confidentiality of Alcohol and Drug Abuse Patient Records regulations: The Federal rules restrict any use of the information to criminally investigate or prosecute any alcohol or drug abuse patient.[facility] CenterIn the event this information is protected by the Federal Confidentiality of Alcohol and Drug Abuse Patient Records regulations: The Federal rules restrict any use of the information to criminally investigate or prosecute any alcohol or drug abuse patient.[facility] CenterIn the event this information is protected by the Federal Confidentiality of Alcohol and Drug Abuse Patient Records regulations: The Federal rules restrict any use of the information to criminally investigate or prosecute any alcohol or drug abuse patient.[facility] CenterIn the event this information is protected by the Federal Confidentiality of Alcohol and Drug Abuse Patient Records regulations: The Federal rules restrict any use of the information to criminally investigate or prosecute any alcohol or drug abuse patient.[facility] CenterIn the event this information is protected by the Federal Confidentiality of Alcohol and Drug Abuse Patient Records regulations: The Federal rules restrict any use of the information to criminally investigate or prosecute any alcohol or drug abuse patient.[facility] CenterIn the event this information is protected by the Federal Confidentiality of Alcohol and Drug Abuse Patient Records regulations: The Federal rules restrict any use of the information to criminally investigate or prosecute any alcohol or drug abuse patient.[facility] CenterIn the event this information is protected by the Federal Confidentiality of Alcohol and Drug Abuse Patient Records regulations: The Federal rules restrict any use of the information to criminally investigate or prosecute any alcohol or drug abuse patient.[facility] CenterIn the event this information is protected by the Federal Confidentiality of Alcohol and Drug Abuse Patient Records regulations: The Federal rules restrict any use of the information to criminally investigate or prosecute any alcohol or drug abuse patient.[facility] CenterIn the event this information is protected by the Federal Confidentiality of Alcohol and Drug Abuse Patient Records regulations: The Federal rules restrict any use of the information to criminally investigate or prosecute any alcohol or drug abuse patient.[facility] CenterIn the event this information is protected by the Federal Confidentiality of Alcohol and Drug Abuse Patient Records regulations: The Federal rules restrict any use of the information to criminally investigate or prosecute any alcohol or drug abuse patient.[facility] CenterIn the event this information is protected by the Federal Confidentiality of Alcohol and Drug Abuse Patient Records regulations: The Federal rules restrict any use of the information to criminally investigate or prosecute any alcohol or drug abuse patient.[facility] CenterIn the event this information is protected by the Federal Confidentiality of Alcohol and Drug Abuse Patient Records regulations: The Federal rules restrict any use of the information to criminally investigate or prosecute any alcohol or drug abuse patient.[facility] CenterIn the event this information is protected by the Federal Confidentiality of Alcohol and Drug Abuse Patient Records regulations: The Federal rules restrict any use of the information to criminally investigate or prosecute any alcohol or drug abuse patient.[facility] the event this information is protected by the Federal Confidentiality of Alcohol and Drug Abuse Patient Records regulations: The Federal rules restrict any use of the information to criminally investigate or prosecute any alcohol or drug abuse patient.[facility] CenterIn the event this information is protected by the Federal Confidentiality of Alcohol and Drug Abuse Patient Records regulations: The Federal rules restrict any use of the information to criminally investigate or prosecute any alcohol or drug abuse patient.[facility] CenterIn the event this information is protected by the Federal Confidentiality of Alcohol and Drug Abuse Patient Records regulations: The Federal rules restrict any use of the information to criminally investigate or prosecute any alcohol or drug abuse patient.[facility] CenterIn the event this information is protected by the Federal Confidentiality of Alcohol and Drug Abuse Patient Records regulations: The Federal rules restrict any use of the information to criminally investigate or prosecute any alcohol or drug abuse patient.[facility] CenterIn the event this information is protected by the Federal Confidentiality of Alcohol and Drug Abuse Patient Records regulations: The Federal rules restrict any use of the information to criminally investigate or prosecute any alcohol or drug abuse patient.[facility] CenterIn the event this information is protected by the Federal Confidentiality of Alcohol and Drug Abuse Patient Records regulations: The Federal rules restrict any use of the information to criminally investigate or prosecute any alcohol or drug abuse patient.[facility] CenterIn the event this information is protected by the Federal Confidentiality of Alcohol and Drug Abuse Patient Records regulations: The Federal rules restrict any use of the information to criminally investigate or prosecute any alcohol or drug abuse patient.[facility] CenterIn the event this information is protected by the Federal Confidentiality of Alcohol and Drug Abuse Patient Records regulations: The Federal rules restrict any use of the information to criminally investigate or prosecute any alcohol or drug abuse patient.[facility] CenterIn the event this information is protected by the Federal Confidentiality of Alcohol and Drug Abuse Patient Records regulations: The Federal rules restrict any use of the information to criminally investigate or prosecute any alcohol or drug abuse patient.[facility] Reason for Visit (unrecogniz ed [...] Monitoring Outreach 06/18/2024 Reason Onset Date Comments [facility] 07/10/2024 Telephonic Outre ach Reason Onset Date Comments [facility] 07/11/2024 Telephonic Outre ach Reason Onset Date Comments Refill Request 07/22/2024 Reason Onset Date Comments [facility] 07/24/2024 Chronic Disease Management Routine Call Reason Comments "severe cramping in my sides now and aga in" Reason Onset Date Comments [facility] 08/21/2024 Chronic Disease Management Routine Call Reason [...] Diagnoses Acute right hip pain Procedures OFFICE/OUTPATIENT [facility] 60 MINUTES Blanca Tilley M, [employer]IPMENT [employer]NER [address] [place] [address] Phone: tel: fax: Referral ID Status Reason Start Date Expiration Date V isits Requested Visits Authorized [id number] Closed PCP Requested Referral 07/07/2025 07/07/2026 1 [...] 2024 End: November 05, 2024 Radha Roberts SOLAR WATER HEATER INSTALLER, SOLAR WATER HEATER INSTALLER-C Attending Provider Active Start: November 05, 2024 End: November 05, 2024 Radha Roberts SOLAR WATER HEATER INSTALLER, SOLAR WATER HEATER INSTALLER-C Referring Provider Active Start: November 05, 2024 [...] 2024 End: November 06, 2024 Radha Roberts SOLAR WATER HEATER INSTALLER, SOLAR WATER HEATER INSTALLER-C Attending Provider Active Start: November 06, 2024 End: November 06, 2024 Radha Roberts SOLAR WATER HEATER INSTALLER, SOLAR WATER HEATER INSTALLER-C Referring Provider Active Start: November 06, 2024 End: November 06, 2024 Dr. Carrillo Malave MD Other Provider Active St art: November 06, 2024 End: November 06, 2024 Team Status: Active Member Role Status Dates Dr. 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 Relationship Specialty Start Date End Date George Vázquez MD [address] [place] [address] PCP - General Internal Medicine 05/08/12 Josh Reveles RN Game Trapper Internal Medicine 02/10/21 Juventino Ulrich MD [address] [place] [address] Primary Staff Physician Cardiology 11/08/21 [employer] Black Belt Engineer Relationship Specialty Start Date End Date George Vázquez MD [address] [place], [place] [id number] PCP - General Internal Medicine 05/08/12 Josh Reveles RN Game Trapper Internal Medicine 02/10/21 Juventino Ulrich MD [address] [place] [address] Primary Staff Physician Cardiology 11/08/21 [employer] Black Belt Engineer Relationship Specialty Start Date End Date George Vázquez MD [address] [place] [address] PCP - General Internal Medicine 05/08/12 Josh Reveles, chief nurse anesthetistGame Trapper Internal Medicine 02/10/21 Juventino Ulrich MD [address] [place] [address] Primary Staff Physician Cardiology 11/08/21 [employer] Black Belt Engineer Relationship Specialty Start Date End Date George Vázquez MD [address] [place] [id number] PCP - General Internal Medicine 05/08/12 Josh Reveles chief nurse anesthetistGame Trapper Internal Medicine 02/10/21 Juventino Ulrich MD [address] [place] [address] Primary Staff Physician Cardiology 11/08/21 [employer] Black Belt Engineer Relationship Specialty Start Date End Date George Vázquez MD [address] [place] [address] PCP - General Internal Medicine 05/08/12 Josh Reveles RN Game Trapper Internal Medicine 02/10/21 Juventino Ulrich MD [address] [place] [address] Primary Staff Physician Cardiology 11/08/21 [employer] Black Belt Engineer Relationship Specialty Start Date End Date George Vázquez MD [address] [place] [address] PCP - General Internal Medicine 05/08/12 Josh Reveles chief nurse anesthetistGame Trapper Internal Medicine 02/10/21 Juventino Ulrich MD [address] [place] [address] Primary Staff Physician Cardiology 11/08/21 [employer] Black Belt Engineer Relationship Specialty Start Date End Date George Vázquez MD [address] [place] [address] PCP - General Internal Medicine 05/08/12 Josh Reveles, chief nurse anesthetistGame Trapper Internal Medicine 02/10/21 Juventino Ulrich MD [address] [place] [address] Primary Staff Physician Cardiology 11/08/21 [employer] Black Belt Engineer Relationship Specialty Start Date End Date George Vázquez MD [address] [place] [address] PCP - General Internal Medicine 05/08/12 Josh Reveles chief nurse anesthetistGame Trapper Internal Medicine 02/10/21 Juventino Ulrich MD [address] [place] [address] Primary Staff Physician Cardiology 11/08/21 [employer] Black Belt Engineer Relationship Specialty Start Date End Date George Vázquez MD [address] [place] [address] PCP - General Internal Medicine 05/08/12 Josh Reveles chief nurse anesthetistGame Trapper Internal Medicine 02/10/21 Juventino Ulrich MD [address] [place] [address] Primary Staff Physician Cardiology 11/08/21 [employer] Black Belt Engineer Relationship Specialty Start Date End Date George Vázquez MD [address] [place] [address] PCP - General Internal Medicine 05/08/12 Josh Reveles chief nurse anesthetistGame Trapper Internal Medicine 02/10/21 Juventino Ulrich MD [address] [place] [address] Primary Staff Physician Cardiology 11/08/21 [employer] Black Belt Engineer Relationship Specialty Start Date End Date George Vázquez MD [address] [place] [address] PCP - General Internal Medicine 05/08/12 Darlyn Moreno, chief nurse anesthetistGame Trapper Internal Medicine 02/10/21 Juventino Ulrich MD [address] [place] [address] Primary Staff Physician Cardiology 11/08/21 [employer] Black Belt Engineer Relationship Specialty Start Date End Date George Vázquez MD [address] [place] [address] PCP - General Internal Medicine 05/08/12 Darlyn Moreno chief nurse anesthetistGame Trapper Internal Medicine 02/10/21 Juventino Ulrich MD [address] [place] [address] Primary Staff Physician Cardiology 11/08/21 [employer] Black Belt Engineer Relationship Specialty Start Date End Date George Vázquez MD [address] [place] [address] PCP - General Internal Medicine 05/08/12 Darlyn Moreno chief nurse anesthetistGame Trapper Internal Medicine 02/10/21 Juventino Ulrich MD [address] [place] [address] Primary Staff Physician Cardiology 11/08/21 [employer] Black Belt Engineer Relationship Specialty Start Date End Date George Vázquez MD [address] [place] [address] PCP - General Internal Medicine 05/08/12 Darlyn Moreno, chief nurse anesthetistGame Trapper Internal Medicine 02/10/21 Juventino Ulrich MD [address] [place] [address] Primary Staff Physician Cardiology 11/08/21 [employer] Black Belt Engineer Relationship Specialty Start Date End Date George Vázquez MD [address] [place] [address] PCP - General Internal Medicine 05/08/12 Darlyn Moreno RN Game Trapper Internal Medicine 02/10/21 Juventino Ulrich MD [address] [place] [address] Primary Staff Physician Cardiology 11/08/21 Team Status: Active Member Role Status Dates Dr. George Vázquez MD Family Provider Active Dr. George Vázquez MD Primary Care Provider Active Team Status: Inactive Member Role Status Dates Dr. George Vázquez MD Primary Care Provider, Refer ring Provider Active Cristiane Serna SOLAR WATER HEATER INSTALLER, SOLAR WATER HEATER INSTALLER-C Attending Provider Active Team Status: Active Member Role Status Dates Dr. George Vázquez MD Primary Care Provider Active Pablo Whitney MD Emergency Provider Active Dr. Judy Henriquez MD Admit Provider, Other Provider Active Dr. Ling Betancur DO Attending Provider, Other Provide r Active Team Status: Inactive Member Role Status Dates Dr. George Vázquez MD Primary Care Provider, Refer ring Provider Active Radha Roberts SOLAR WATER HEATER INSTALLER, SOLAR WATER HEATER INSTALLER-C Attending Provider Active Team Status: Inactive Member [...] Hanks MD Attending Provider Active Dr. Becky Coribn MD Referring Provider Active Team Status: Active [...] MD Primary Care Provider Active Cristiane Serna SOLAR WATER HEATER INSTALLER, SOLAR WATER HEATER INSTALLER-C Attending Provider, Referrin g Provider Active Team Status: Inactive Member Role Status Dates Dr. George Vázquez MD Primary Care Provider Active Radha Roberts SOLAR WATER HEATER INSTALLER, SOLAR WATER HEATER INSTALLER-C Attending Provider Active Team Status: Inactive Member Role Status Dates Dr. George Vázquez MD Primary Care Provider Active Pablo Whitney MD Emergency Provider Active Dr. Judy eHnriquez MD Admit Provider, Other Provider Active Dr. Ling Betancur DO Attending Provider Active Team Status: Inactive Member Role Status Dates Dr. George Vázquez MD Primary Care Provider Active Dr. Becky Corbin MD Attending Provider, Referring Provider Active Team Status: Inactive Member Role Status Dates Dr. George Vázquez MD Primary Care Provider Active Radha Roberts SOLAR WATER HEATER INSTALLER, SOLAR WATER HEATER INSTALLER-C Attending Provider, Referrin g Provider Active [employer] Black Belt Engineer Relationship Specialty Start Date End Date George Vázquez MD [address] [place], [place] [id number] PCP - General Internal Medicine 05/08/12 Darlyn Moreno RN Game Trapper Internal Medicine 02/10/21 Juventino Ulrich MD [address] [place], [place] [id number] Primary Staff Physician Cardiology 11/08/21 [employer] Black Belt Engineer Relationship Specialty Start Date End Date George Vázquez MD [address] [place], [place] [address] PCP - General Internal Medicine 05/08/12 Darlyn Moreno RN Game Trapper Internal Medicine 02/10/21 Juventino Ulrich MD [address] [place] [address] Primary Staff Physician Cardiology 11/08/21 Team Status: [...] Status: Inactive Member Role Status Dates Dr. eGorge Vázquez MD Primary Care P rovider, Attending Provider, Referring Provider Active Dr. Mark Giles MD Other Provider Active Dr. Aleksey Javier DO Other Provider Active Team Status: Inactive Member Role Status Dates Dr. George Vázquez MD Primary Care Provider Active Dr. Aleksey Javier DO Attending Provider Active Cristiane Serna SOLAR WATER HEATER INSTALLER, SOLAR WATER HEATER INSTALLER-C Referring Provider Active Team Status: Inactive Member [...] MD Primary Care Provider Active Radha Roberts SOLAR WATER HEATER INSTALLER, SOLAR WATER HEATER INSTALLER-C Referring Provider, Other Pr ovider Active Dr. Tevin Nelson DO Attending Provider Active [employer] Black Belt Engineer Relationship Specialty Start Date End Date George Vázquez MD [address] [place] [address] PCP - General Internal Medicine 05/08/12 Darlyn Moreno RN Game Trapper Internal Medicine 02/10/21 Juventino Ulrich MD [address] [place], [place] [id number] Primary Staff Physician Cardiology 11/08/21 Team Status: Active Member Role Status Dates Dr. George Vázquez MD Primary Care Provider Active Amada Mahoney PA, PA Referring Provider, Other Provider Active Dr. Kal Bartholomew MD Attending Provider Active Team Status: Inactive Member Role Status Dates Dr. George Vázquez MD Primary Care Provider Active Amada DURAN, PA Attending Provider, Referr ing Provider Active [employer] Black Belt Engineer Relationship Specialty Start Date End Date George Vázquez MD [address] [place] [address] PCP - General Internal Medicine 05/08/12 Darlyn Moreno RN Game Trapper Internal Medicine 02/10/21 Juventino Ulrich MD [address] [place] [address] Primary Staff Physician Cardiology 11/08/21 [employer] Black Belt Engineer Relationship Specialty Start Date End Date George Vázquez MD [address] [place] [address] PCP - General Internal Medicine 05/08/12 Darlyn Moreno RN Game Trapper Internal Medicine 02/10/21 Juventino Ulrich MD [address] [place], [place] [id number] Primary Staff Physician Cardiology 11/08/21 Team Status: Inactive Member Role Status Dates Dr. George Vázquez MD Primary Care Provider, Refer ring Provider Active Raciel DURAN, PA Attending Provider Active Team Status: Inactive Member Role Status Dates Dr. George Vázquez MD Primary Care Provider Active Radha Roberts SOLAR WATER HEATER INSTALLER, SOLAR WATER HEATER INSTALLER-C Attending Provider, Veronica g Provider Active Gloria Cochran SOLAR WATER HEATER INSTALLER, SOLAR WATER HEATER INSTALLER-C Other Provider Active [employer] Black Belt Engineer Relationship Specialty Start Date End Date George Vázquez MD [address] [place] [address] PCP - General Internal Medicine 05/08/12 Darlyn Moreno, chief nurse anesthetistGame Trapper Internal Medicine 02/10/21 Juventino Ulrich MD [address] [place] [address] Primary Staff Physician Cardiology 11/08/21 [employer] Black Belt Engineer Relationship Specialty Start Date End Date George Vázquez MD [address] [place] [address] PCP - General Internal Medicine 05/08/12 Darlyn Moreno chief nurse anesthetistGame Trapper Internal Medicine 02/10/21 Juventino Ulrich MD [address] [place] [address] Primary Staff Physician Cardiology 11/08/21 [employer] Black Belt Engineer Relationship Specialty Start Date End Date George Vázquez MD [address] [place] [address] PCP - General Internal Medicine 05/08/12 Darlyn Moreno chief nurse anesthetistGame Trapper Internal Medicine 02/10/21 Juventino Ulrich MD [address] [place] [address] Primary Staff Physician Cardiology 11/08/21 [employer] Black Belt Engineer Relationship Specialty Start Date End Date George Vázquez MD [address] [place] [address] PCP - General Internal Medicine 05/08/12 Darlyn Moreno, chief nurse anesthetistGame Trapper Internal Medicine 02/10/21 Juventino Ulrich MD [address] [place] [address] Primary Staff Physician Cardiology 11/08/21 [employer] Black Belt Engineer Relationship Specialty Start Date End Date George Vázquez MD [address] [place], [place] [address] PCP - General Internal Medicine 05/08/12 Darlyn Moreno RN Game Trapper Internal Medicine 02/10/21 Juventino Ulrich MD [address] [place] [address] Primary Staff Physician Cardiology 11/08/21 Team Status: Inactive Member Role Status Dates Dr. George Vázquez MD Primary Care Provider, Refer ring Provider Active Dr. Farooq Hall MD Attending Provider Active Team Status: Active Member Role Status Dates Dr. George Vázquez MD Primary Care Provider Active Dr. Kal Bartholomew MD Attending Provider Active [employer] Black Belt Engineer Relationship Specialty Start Date End Date George Vázquez MD [address] [place] [address] PCP - General Internal Medicine 05/08/12 Darlyn Moreno RN Game Trapper Internal Medicine 02/10/21 Juventino Ulrich MD [address] [place], [place] [id number] Primary Staff Physician Cardiology 11/08/21 [employer] Black Belt Engineer Relationship Specialty Start Date End Date George Vázquez MD [address] [place] [address] PCP - General Internal Medicine 05/08/12 Darlyn Moreno, chief nurse anesthetistGame Trapper Internal Medicine 02/10/21 Juventino Ulrich MD [address] [place], [place] [id number] Primary Staff Physician Cardiology 11/08/21 [employer] Black Belt Engineer Relationship Specialty Start Date End Date George Vázquez MD [address] [place] [address] PCP - General Internal Medicine 05/08/12 Darlyn Moreno, chief nurse anesthetistGame Trapper Internal Medicine 02/10/21 Juventino Ulrich MD [address] [place] [address] Primary Staff Physician Cardiology 11/08/21 [employer] Black Belt Engineer Relationship Specialty Start Date End Date George Vázquez MD [address] [place] [address] PCP - General Internal Medicine 05/08/12 Darlyn Moreno RN Game Trapper Internal Medicine 02/10/21 Juventino Ulrich MD [address] [place] [address] Primary Staff Physician Cardiology 11/08/21 [employer] Black Belt Engineer Relationship Specialty Start Date End Date George Vázquez MD [address] [place] [address] PCP - General Internal Medicine 05/08/12 Darlyn Moreno chief nurse anesthetistGame Trapper Internal Medicine 02/10/21 Juventino Ulrich MD [address] [place], [place] [id number] Primary Staff Physician Cardiology 11/08/21 [employer] Black Belt Engineer Relationship Specialty Start Date End Date Vázquez, Rosalia, MD [address] [place] [address] PCP - General Internal Medicine 05/08/12 Darlyn Moreno, chief nurse anesthetistGame Trapper Internal Medicine 02/10/21 Juventino Ulrich MD [address] [place] [address] Primary Staff Physician Cardiology 11/08/21 [employer] Black Belt Engineer Relationship Specialty Start Date End Date George Vázquez MD [address] [place] [address] PCP - General Internal Medicine 05/08/12 Darlyn Moreno chief nurse anesthetistGame Trapper Internal Medicine 02/10/21 Juventino Ulrich MD [address] [place] [address] Primary Staff Physician Cardiology 11/08/21 [employer] Black Belt Engineer Relationship Specialty Start Date End Date George Vázquez MD [address] [place] [address] PCP - General Internal Medicine 05/08/12 Darlyn Moreno chief nurse anesthetistGame Trapper Internal Medicine 02/10/21 Juventino Ulrich MD [address] [place] [address] Primary Staff Physician Cardiology 11/08/21 [employer] Black Belt Engineer Relationship Specialty Start Date End Date George Vázquez MD [address] [place] [address] PCP - General Internal Medicine 05/08/12 [employer] Black Belt Engineer Relationship Specialty Start Date End Date George Vázquez MD [address] [place] [address] PCP - General Internal Medicine 05/08/12 Darlyn Moreno, chief nurse anesthetistGame Trapper Internal Medicine 02/10/21 Juventino Ulrich MD [address] [place] [address] Primary Staff Physician Cardiology 11/08/21 [employer] Black Belt Engineer Relationship Specialty Start Date End Date George Vázquez MD [address] [place] [address] PCP - General Internal Medicine 05/08/12 Darlyn Moreno, chief nurse anesthetistGame Trapper Internal Medicine 02/10/21 Juventino Ulrich MD [address] [place] [address] Primary Staff Physician Cardiology 11/08/21 [employer] Black Belt Engineer Relationship Specialty Start Date End Date George Vázquez MD [address] [place] [address] PCP - General Internal Medicine 05/08/12 Darlyn Moreno, chief nurse anesthetistGame Trapper Internal Medicine 02/10/21 Juventino Ulrich MD [address] [place] [address] Primary Staff Physician Cardiology 11/08/21 [employer] Black Belt Engineer Relationship Specialty Start Date End Date George Vázquez MD [address] [place] [address] PCP - General Internal Medicine 05/08/12 Darlyn Moreno, chief nurse anesthetistGame Trapper Internal Medicine 02/10/21 Juventino Ulrich MD [address] [place], [place] [id number] Primary Staff Physician Cardiology 11/08/21 [employer] Black Belt Engineer Relationship Specialty Start Date End Date George Vázquez MD [address] [place] [address] PCP - General Internal Medicine 05/08/12 Darlyn Moreno, chief nurse anesthetistGame Trapper Internal Medicine 02/10/21 Juventino Ulrich MD [address] [place] [address] Primary Staff Physician Cardiology 11/08/21 [employer] Black Belt Engineer Relationship Specialty Start Date End Date George Vázquez MD [address] [place] [address] PCP - General Internal Medicine 05/08/12 Darlyn Moreno, chief nurse anesthetistGame Trapper Internal Medicine 02/10/21 Juventino Ulrich MD [address] [place] [address] Primary Staff Physician Cardiology 11/08/21 [employer] Black Belt Engineer Relationship Specialty Start Date End Date George Vázquez MD [address] [place] [address] PCP - General Internal Medicine 05/08/12 Darlyn Moreno, chief nurse anesthetistGame Trapper Internal Medicine 02/10/21 Juventino Ulrich MD [address] [place], [place] [id number] Primary Staff Physician Cardiology 11/08/21 [employer] Black Belt Engineer Relationship Specialty Start Date End Date George Vázquez MD [address] [place] [address] PCP - General Internal Medicine 05/08/12 Darlyn Moreno, chief nurse anesthetistGame Trapper Internal Medicine 02/10/21 Juventino Ulrich MD [address] [place], [place] [id number] Primary Staff Physician Cardiology 11/08/21 [employer] Black Belt Engineer Relationship Specialty Start Date End Date George Vázquez MD [address] [place] [address] PCP - General Internal Medicine 05/08/12 Juventino Ulrich MD [address] [facility] [place] [id number] Primary Staff Physician Cardiology 11/08/21 Blanca Tilley, PRESSER COTTON GINNING.EQUIPMENT PLANNER [address] [place] [address] Car Cooper Internal Medicine 10/07/24 [employer] Black Belt Engineer Relationship Specialty Start Date End Date George Vázquez MD [address] [place] [address] PCP - General Internal Medicine 05/08/12 Juventino Ulrich MD [address] [place], [place] [id number] Primary Staff Physician Cardiology 11/08/21 Blanca Tilley, PRESSER COTTON GINNING.EQUIPMENT PLANNER [address] [place] [address] [employer] Cooper Internal Medicine 10/07/24 [employer] Black Belt Engineer Relationship Specialty Start Date End Date George Vázquez MD [address] [facility], [place] [address] PCP - General Internal Medicine 05/08/12 Juventino Ulrich MD [address] [place] [address] Primary Staff Physician Cardiology 11/08/21 Blanca Tilley, PRESSER COTTON GINNING.EQUIPMENT PLANNER [address] [place] [address] [facility] Internal Medicine 10/07/24 [employer] Black Belt Engineer Relationship Specialty Start Date End Date George Vázquez MD [address] [facility], [place] [address] PCP - General Internal Medicine 05/08/12 Juventino Ulrich MD [address] [place] [address] Primary Staff Physician Cardiology 11/08/21 Blanca Tilley, PRESSER COTTON GINNING.EQUIPMENT PLANNER [address] [place] [address] [facility] Internal Medicine 10/07/24 Team Status: Inactive Member Role Status Dates Dr. George Vázquez MD Primary Care Provider Active Start: September 17, 2024 End: September 17, 2024 Dr. Francisco Murillo MD Attending Provider Active S tart: September 17, 2024 End: September 17, 2024 Dr. Francisco Murillo MD Emergency Provider Active S tart: September 17, 2024 End: September 17, 2024 Six Sigma Black Belt Engineer Relationship Specialty Start Date End Date George Vázquez MD [address] [facility], [place] [address] PCP - General Internal Medicine 05/08/12 Juventino Ulrich MD [address] [place] [address] Primary Staff Physician Cardiology 11/08/21 Blanca Tilley, PRESSER [employer] GINNING.EQUIPMENT PLANNER [address] [place] [address] [facility] Internal Medicine 10/07/24 Team Status: Active Member [...] 2025 End: May 05, 2025 Daniel Saeed SOLAR WATER HEATER INSTALLER, SOLAR WATER HEATER INSTALLER-C Attending Provider Active S tart: May 05, 2025 End: May 05, 2025 Team Status: Inactive Member Role/Relationship Status Dates Dr. George Vázquez MD Primary Care Provider Active Start: May 03, 2025 End: May 03, 2025 RENEE Villagomez Attending Provider Active St art: May 03, 2025 End: May 03, 2025 RENEE Villagomez Referring Provider Active St art: May 03, 2025 End: May 03, 2025 Six Sigma Black Belt Engineer Relationship Specialty Start Date End Date George Vázquez MD [address] [place] [address] PCP - General Internal Medicine 05/08/12 Juventino Ulrich MD [address] [place] [address] Primary Staff Physician Cardiology 11/08/21 Blanca Tilley, PRESSER COTTON GINNING.EQUIPMENT PLANNER [address] [place], [place] [address] [facility] Internal Medicine 10/07/24 Team Status: Inactive Member [...] 2025 End: May 05, 2025 Daniel Saeed SOLAR WATER HEATER INSTALLER, SOLAR WATER HEATER INSTALLER-C Attending Provider Active S tart: May 05, 2025 End: May 05, 2025 Team Status: Inactive Member Role/Relationship Status Dates Dr. George Vázquez MD Primary Care Provider Active Start: June 14, 2025 End: June 14, 2025 Radha Roberts SOLAR WATER HEATER INSTALLER, SOLAR WATER HEATER INSTALLER-C Attending Provider Active Start: June 14, 2025 End: June 14, 2025 Radha Roberts SOLAR WATER HEATER INSTALLER, SOLAR WATER HEATER INSTALLER-C Referring Provider Active Start: June 14, 2025 End: June 14, 2025 Six Sigma Black Belt Engineer Relationship Specialty Start Date End Date George Vázquez MD [address] [place], [place] [address] PCP - General Internal Medicine 05/08/12 Juventino Ulrich MD [address] [place], [place] [id number] Primary Staff Physician Cardiology 11/08/21 Blanca Tilley, PRESSER COTTON GINNING.EQUIPMENT PLANNER [address] [place] [address] [facility] Internal Medicine 10/07/24 Six Sigma Black Belt Engineer Relationship Specialty Start Date End Date George Vázquez MD [address] [place] [address] PCP - General Internal Medicine 05/08/12 Juventino Ulrich MD [address] [place], [place] [address] Primary Staff Physician Cardiology 11/08/21 Blanca Tilley, PRESSER COTTON GINNING.EQUIPMENT PLANNER [address] [place] [address] [facility] Internal Medicine 10/07/24 Six Sigma Black Belt Engineer Relationship Specialty Start Date End Date George Vázquez MD [address] [place] [address] PCP - General Internal Medicine 05/08/12 Juventino Ulrich MD [address] [place], [place] [id number] Primary Staff Physician Cardiology 11/08/21 Blanca Tilley, PRESSER COTTON GINNING.EQUIPMENT PLANNER [address] [place] [address] [facility] Internal Medicine 10/07/24 Six Sigma Black Belt Engineer Relationship Specialty Start Date End Date George Vázquez MD [address] [place] [address] PCP - General Internal Medicine 05/08/12 Juventino Ulrich MD [address] [place] [address] Primary Staff Physician Cardiology 11/08/21 Blanca Tilley, PRESSER COTTON GINNING.EQUIPMENT PLANNER [address] [place] [address] [facility] Internal Medicine 10/07/24 Team Status: Active [...] 2025 End: May 05, 2025 Daniel Saeed SOLAR WATER HEATER INSTALLER, SOLAR WATER HEATER INSTALLER-C Attending physician Active Start: May 05, 2025 End: May 05, 2025 Team Status: Inactive Member Role/Relationship Status Dates Dr. George Vázquez MD Primary care physician Activ e Start: June 14, 2025 End: June 14, 2025 Radha Roberts SOLAR WATER HEATER INSTALLER, SOLAR WATER HEATER INSTALLER-C Attending physician Active Start: June 14, 2025 End: June 14, 2025 Radha Roberts SOLAR WATER HEATER INSTALLER, SOLAR WATER HEATER INSTALLER-C Referring Provider Active Start: June 14, 2025 [...] BE BASED ON THE PRIMARY CLINICAL RECORDS. [employer] provides no warranty or guarantee of the accuracy or completeness of information in this document.
[2025-09-04 19:24] LABS: Procalcitonin 0.05 ng/mL (<=0.10)
--- NOTE | 2025-09-04 20:11 | CASEMGMT ---
Care Management Face to Face with patient for initial transition planning/care coordination assessment in the ED. This feature writer introduced self and role at [facility]. Patient alert and oriented. Patient willing to participate in assessment and is able to answer all questions appropriately. Care providers, pharmacy, and demographics verified. Admitting Diagnosis: COPD exacerbation Other diagnosis history: hypertension, arthritis, diverticulitis PCP: Gurpreet Specialists: Lyubov Gooden Pharmacy: [facility] Insurance: Medicare Prescription Benefit: yes Living Will/HPOA: uncertain if he has one completed LNOK: Son Living Arrangements: patient lives in a condo, reports to being independent with ADLs and IADL Transportation: patient drives DME: blood pressure cuff, pulse oz, nebulizer, Oxygen , 2 L supplies through [employer] HHC: none SNF/Rehab: none Community Resources: none Behavioral Health History: none Patient goals: Patient wishes to discharge home, denies need for home health care at this time. Patient denies any further needs or concerns at this time. Disposition Plan: admission to acute; RN CM/SW to follow for discharge planning needs that may arise. Hortensia Norman, ICT TRAINER, BOTTLE LINE WORKER
[2025-09-05] VITALS (10 sets, daily range): BP systolic 131–164; BP diastolic 81–105; PULSE 57–89; RESP 16–22; TEMP 36.2–36.7; O2SAT 90–98
--- NOTE | 2025-09-05 04:01 | NURSING ---
0330 UPDATED OF PATIENTS STATUS. PATIENTS BP IS 159/105, CRACKLES IN LUNG BASES, EXERTIONAL SOB, AND BLE 2+ EDEMA. PHYSICIAN REPLIED TO ENCOURAGE INCENTIVE SPIROMETRY USAGE. PATIENT EDUCATED.
[2025-09-05] MEDS: 0.9% Saline Lock 10 ML Syringe IV ×2 (05:25→20:34)
[2025-09-05 06:23] LABS: Hematocrit 43.2 % (40-54); Hemoglobin 15.2 g/dL (13.0-16.5); Mean Corp Hgb Conc 35.2 g/dL (32-36); Mean Corpuscular Volume 100.5 fL (80-94); Mean Platelet Vol. 10.0 fl (6.2-12.0); Platelet Count 185 K/mm3 (150-450); RBC Distribution Width CV 15.8 % (11.6-14.6); RBC Distribution Width SD 58.7 fl (35.1-43.9); Red Blood Count 4.30 M/mm3 (4.6-6.2); White Blood Count 7.4 K/mm3 (4.4-11.0)
[2025-09-05 06:52] LABS: Anion Gap 9 (5-15); BUN 24 mg/dL (4-19); BUN/Creat Ratio 30.5 RATIO (10-20); Calcium,Total 9.0 mg/dL (7.6-11.0); Carbon Dioxide 28.4 mmol/L (21.0-32.0); Chloride 102 mmol/L (98-108); Estimated Creatinine Clearance 85.83 ml/min (50-250); Glucose 138 mg/dL (70-99); Potassium 4.0 mmol/L (3.3-5.1)
--- NOTE | 2025-09-05 08:21 | PN.HOSP_ITS ---
Reason for Visit Chief Complaint: Worsening shortness of breath on exertion Subjective Subjective Had been short of breath for 2 weeks. Had been on trials of steroids as well as antibiotics. Would feel slightly better but then went away antibiotics were stopped to start feeling worse again. Objective Data Objective Data Vital Signs: Vital Signs Temp Pulse Resp BP Pulse Ox O2 Del Method O2 Flow Rate 36.2 C L 57 L 16 159/105 H 97 Nasal Cannula 2 09/05/25 03:38 09/05/25 07:01 09/05/25 07:01 09/05/25 03:38 09/05/25 07:01 09/05/25 07:01 09/05/25 07:01 Oxygen Flow Rate (L/min) 2 Oxygen Delivery Method Nasal Cannula Weight: 79.974 kg Body Mass Index (BMI) 27.6 Intake & Output: Intake and Output for Last 24 Hours 09/03/25 09/04/25 09/05/25 23:59 23:59 23:59 Intake Total 120 / 120 Balance 120 / 120 Lab / Micro Data 09/05/25 05:32 09/05/25 05:32 Labs: Laboratory Results - last 24 hr 09/04/25 16:40: WBC 9.1, RBC 4.62, Hgb 16.2, Hct 47.1, MCV 101.9 H, MCH 35.1 H, MCHC 34.4, RDW Std Deviation 58.7 H, RDW Coeff of Lisa 15.6 H, Plt Count 199, MPV 9.5, Immature Gran % (Auto) 0.700, Neut % (Auto) 93.7 H, Lymph % (Auto) 2.6 L, [place] % (Auto) 2.8, Eos % (Auto) 0.0, Baso % (Auto) 0.2, Absolute Neuts (auto) 8.6 H, Absolute Lymphs (auto) 0.24 L, Nucleated RBC % 0, Sodium 140, Potassium 4.5, Chloride 100, Carbon Dioxide 30.3, Anion Gap 9, BUN 21 H, Creatinine 0.89, Est GFR (MDRD) Non-Af 92, BUN/Creatinine Ratio 24.1 H, Glucose 139 H, Calcium 9.2, NT pro BNP II 857, Procalcitonin 0.05 09/05/25 05:32: WBC 7.4, RBC 4.30 L, Hgb 15.2, Hct 43.2, MCV 100.5 H, MCH 35.3 H , MCHC 35.2, RDW Std Deviation 58.7 H, RDW Coeff of Lisa 15.8 H, Plt Count 185, MPV 10.0, Sodium 138, Potassium 4.0, Chloride 102, Carbon Dioxide 28.4, Anion Gap 9, BUN 24 H, Creatinine 0.79, Estim Creat Clear Calc 85.83, Est GFR (MDRD) Non-Af 95, BUN/Creatinine Ratio 30.5 H, Glucose 138 H, Calcium 9.0 Micro: Microbiology 09/04/25 21:48 Mucosa - Nasopharyngeal Respiratory Panel (PCR) - Final Radiography Diagnostic Testing: Radiology Impression Chest X-Ray 09/04/25 17:48 IMPRESSION: NO ACUTE FINDINGS. Reading Location: [facility] Physical Exam Const alert and no apparent distress HEENT head/scalp atraumatic and moist oral mucous membranes Resp normal respiratory effort and no retractions Resp Narrative: Diminished breath sounds bilaterally. End expiratory wheeze that is faint. Cardio regular rate, regular rhythm, S1 normal heart sound and S2 normal heart sound GI normal to inspection, nondistended, normoactive bowel sounds, soft to palpation, non-tender and non-distended Extremity normal to inspection and full ROM Assessment & Plan Assessment/Plan (1) COPD exacerbation: (2) Hypoxia: PLAN: Plan COPD exacerbation with hypoxia, history of nocturnal hypoxia * On home 2 L nasal cannula at night only. Requiring 3 L nasal cannula at rest in the ED to maintain appropriate oxygen saturations. Follows with Dr. Orellana. * Given his protracted nature of this respiratory flare and the fact that he has not probably responded with steroids as well as antibiotics, will check a CTA of the chest. * Continue bronchodilators as well as IV steroids with methylprednisolone * Respiratory panel negative * Check urine antigens for strep and Legionella, check sputum culture, mycoplasma. Nonsustained VT * Electrolytes within normal limits. * Will check an echocardiogram. Last echocardiogram was from September 2024 was EF was 30% at that time. Tobacco dependence * Has been weaning himself down, currently smoking about 5 cigarettes daily. Nicotine replacement therapy available as needed. Discussed cessation on discharge. History of CAD with CABG and extensive stenting, hypertension, hyperlipidemia * Follows with [facility], last office visit in April. Hypertensive to the 160s to 170s systolic in the ED. Will continue home Plavix, statin, Lopressor, losartan, and nitrate. DVT prophylaxis: Lovenox CODE STATUS: Full code, verified Expected disposition: Home, TBD Discussed with family at bedside Charges/Coding Visit Charges Inpatient E&M: 20861 Subs Hosp L2
[2025-09-05] MEDS: Potassium Chloride Oral Tablet 10 MEQ PO (09:49)
--- NOTE | 2025-09-05 11:29 | CT_ITS ---
PROCEDURE: CTA CHEST W/WO CONTRAST 09/05/2025 REASON FOR EXAM: SHORTNESS OF BREATH TECHNIQUE: Procedure Code: [id number] Modality: CT Procedure: CTA CHEST W/WO CONTRAST Multiplanar Sagittal and Coronal images were obtained. 3D post processing was performed CONTRAST: Isovue 370 VOLUME: 100 mL One or more dose reduction techniques were used (e.g., Automated exposure control, adjustment of the mA and/or kV according to patient size, use of iterative reconstruction technique). RADIATION DOSE SUMMARY: CTDlvol: 24 mGy DLP: 435 mGycm COMPARISON: June 14, 2025, November 27, 2024 # of known CTs in the past 12 months: 2 # of known Cardiac Nuclear Medicine Studies in the past 12 months: 0 FINDINGS: Thoracic Aorta: No evidence of aortic rupture or dissection. Moderate atherosclerotic plaque. Heart: The heart is normal size. No pericardial effusion. Coronary artery atherosclerosis status post median sternotomy and CABG. Pulmonary Vessels: The timing and quality of the contrast bolus is diagnostic. There is no evidence of acute or chronic pulmonary embolus. Hardware: None Lymph nodes: None appear enlarged. Lungs and Airways: Upper lobe predominant centrilobular emphysema. No consolidation or mass. No worrisome nodule. Some linear scarring is seen at the posterior right lower lobe, lateral left lower lobe, inferior lingula. Pleura: No pleural effusion or pneumothorax. Calcified pleural plaque posterior right lower thorax. Upper Abdomen: Unremarkable Bones: Degenerative changes of the thoracic spine. CT/CTA Chest W/WO Contrast IMPRESSION: Upper lobe predominant centrilobular emphysema. No mass or consolidation. Bret cified pleural plaque right lower thorax. Evidence of acute or chronic pulmonary embolus. Prior median sternotomy and CABG Reading Location: [id number]
--- NOTE | 2025-09-05 11:29 | ECHOD_ITS ---
Reason For Study Reason For Study: ARRYHTHMIA Procedure This was a 2D Doppler, Color Flow transthoracic echocardiogram. Exam performed portable in patient room. Left Ventricle Normal left ventricular size. EF by 2D Hsu's biplane: 65%. Normal diastolic function. No regional wall motion abnormalities noted. Right Ventricle Normal right ventricle. Normal systolic function. Right ventricular systolic pressure estimated to be 35-40 mmHg mmHg. Atria The left and right atria are normal. Right atrial pressure approximately 8 mmHg. Mitral Valve Normal mitral valve. Mitral annular calcification present. No mitral valve stenosis. Trace mitral regurgitation. Tricuspid Valve Normal tricuspid valve. There is no tricuspid stenosis. Mild tricuspid regurgitation. Aortic Valve Trisinus/trileaflet aortic valve. Aortic valve calcifications present. No hemodynamically significant aortic stenosis. No aortic regurgitation. Pulmonic Valve Normal pulmonic valve. No pulmonic stenosis. Trace pulmonic regurgitation. Great Vessels Normal sized aortic root. Normal ascending aorta. Pericardium/Pleural No pericardial effusion. MMode/2D Measurements & Calculations LVIDd: 5.6 cm IVSd: 0.91 cm LVOT diam: 2.0 cm LVIDs: 3.0 cm LVPWd: 1.0 cm LVOT area: 3.3 cm2 RVDd: 3.6 cm FS: 46.7 % Ao root diam: 3.4 cm LAV(MOD-bp): 49.6 ml LVAd ap4: 27.8 cm2 LAV(MOD-bp) Indexed: 25.9 ml/m2 LVLd ap4: 7.7 cm LAV(MOD-sp2): 49.7 ml EDV(MOD-sp4): 84.4 ml LAV(MOD-sp4): 49.4 ml EDV(sp4-el): 85.6 ml LVAs ap4: 13.9 cm2 LVLs ap4: 6.4 cm ESV(MOD-sp4): 28.0 ml ESV(sp4-el): 25.8 ml EF(MOD-sp4): 66.8 % EF(sp4-el): 69.9 % LVAd ap2: 25.3 cm2 SV(MOD-sp4): 56.4 ml SV(MOD-sp2): 52.1 ml LVLd ap2: 7.8 cm SI(MOD-sp4): 29.4 ml/m2 SI(MOD-sp2): 27.2 ml/m2 EDV(MOD-sp2): 68.3 ml EDV(sp2-el): 69.5 ml LVAs ap2: 10.3 cm2 LVLs ap2: 5.9 cm ESV(MOD-sp2): 16.2 ml ESV(sp2-el): 15.1 ml EF(MOD-sp2): 76.2 % SV(sp4-el): 59.9 ml LA dimension(2D): 4.3 cm LA A4 area: 17.5 cm2 RA A4 area: 13.5 cm2 TAPSE: 1.5 cm Time Measurements MV dec time: 0.24 sec Doppler Measurements & Calculations MV E max lito: 96.3 cm/sec Lat Peak E' Lito: 7.8 cm/sec Med Peak E' Lito: 9.7 cm/sec MV A max lito: 111.8 cm/sec E/E' lat: 12.3 E/E' med: 9.9 MV E/A: 0.86 Ao V2 max: 129.6 cm/sec LV V1 max: 105.2 cm/sec MV dec slope: 398.8 cm/sec2 Ao max P.7 mmHg LV V1 max P.4 mmHg Ao V2 mean: 88.0 cm/sec LV V1 mean P.3 mmHg Ao mean P.4 mmHg LV V1 mean: 68.7 cm/sec Ao V2 VTI: 23.1 cm LV V1 VTI: 21.5 cm AV (velocity ratio): 0.93 WADE(I,D): 3.0 cm2 WADE(V,D): 2.7 cm2 SV(LVOT): 70.5 ml PA V2 max: 103.9 cm/sec TR max lito: 255.1 cm/sec TR max P.0 mmHg ECHO/Echo Complete Interpretation Summary Normal left ventricular size. EF by 2D Hsu's biplane: 65%. Normal left ventricular systolic function Normal left ventricular diastolic function. No regional wall motion abnormalities noted Normal right ventricular systolic function No hemodynamically significant valvular disease Ordering Physician: Salvador Brewer Referring Physician: George Vázquez Performed By: Chidi Dorsey RDCS
--- NOTE | 2025-09-05 12:48 | CHAPLAIN ---
Type of Pastoral Visit _x__ Initial Visit ___ Follow-up Visit ___ On-call Visit ___ General Patient Visit ___ Spiritual Assessment ___ Family Conference ___ Bereavement ___ Rapid Response ___ Code Blue ___ Other (describe below) Pastoral Care Referral From _x__ Patient ___ Family ___ Nurse ___ Physician ___ Shaft Mechanic ___ Wood Preserving Plant Laborer ___ Other (describe below) Sacrament/Intervention _x__ Active listening ___ Anointing ___ Samaritan ___ Bereavement ___ Communion ___ Jazmyn exploration ___ ___ Life review ___ Prayer ___ Reconciliation ___ Sacrament of Sick _x__ Supportive presence ___ Wedding ___ Other (describe below) Pastoral Comments patient acknowledges his breathing issues and that they have been difficult to get under control lately; pt admits some anxiety but states "I just handle it" when asked about coping and support; pt has parents that are early 90's and he has longevity in the family; pt talks about family but does not seek other spiritual or emotional help;
[2025-09-05] MEDS: MELATONIN 3 MG TABLET PO (20:33)
[2025-09-06] VITALS (13 sets, daily range): BP systolic 136–151; BP diastolic 77–93; PULSE 64–88; RESP 16–22; TEMP 36–36.8; O2SAT 91–97
[2025-09-06] MEDS: Albuterol 2.5 MG/3 ML VIAL.NEB. INHALATION (03:55)
[2025-09-06] MEDS: 0.9% Saline Lock 10 ML Syringe IV ×3 (05:12→17:36)
[2025-09-06 05:41] LABS: Hematocrit 41.1 % (40-54); Hemoglobin 14.1 g/dL (13.0-16.5); Immature Granulocytes Count 0.070 X10^3/uL (0.0-0.0); Mean Corp Hgb Conc 34.3 g/dL (32-36); Mean Corpuscular Volume 101.5 fL (80-94); Mean Platelet Vol. 9.8 fl (6.2-12.0); NRBC Flagged by Analyzer 0 % (0-5); POSITIVE DIFFERENTIAL YES; Platelet Count 170 K/mm3 (150-450); RBC Distribution Width CV 15.8 % (11.6-14.6); RBC Distribution Width SD 59.8 fl (35.1-43.9); Red Blood Count 4.05 M/mm3 (4.6-6.2); White Blood Count 11.6 K/mm3 (4.4-11.0)
[2025-09-06 06:17] LABS: Anion Gap 9 (5-15); BUN 30 mg/dL (4-19); BUN/Creat Ratio 35.2 RATIO (10-20); Calcium,Total 9.0 mg/dL (7.6-11.0); Carbon Dioxide 27.9 mmol/L (21.0-32.0); Chloride 101 mmol/L (98-108); Estimated Creatinine Clearance 73.66 ml/min (50-250); Glucose 152 mg/dL (70-99); Potassium 4.2 mmol/L (3.3-5.1)
[2025-09-06] MEDS: Potassium Chloride Oral Tablet 10 MEQ PO (08:15)
--- NOTE | 2025-09-06 10:16 | PN.HOSP_ITS ---
Reason for Visit Chief Complaint: Worsening shortness of breath on exertion Subjective Subjective Still with shortness of breath particularly with exertion. Coughing up dark brown phlegm. Objective Data Objective Data Vital Signs: Vital Signs Temp Pulse Resp BP Pulse Ox O2 Del Method O2 Flow Rate 36.6 C 76 18 145/89 H 95 Nasal Cannula 2 09/06/25 08:09 09/06/25 08:15 09/06/25 08:15 09/06/25 08:09 09/06/25 08:09 09/06/25 08:15 09/06/25 08:15 Oxygen Flow Rate (L/min) 2 Oxygen Delivery Method Nasal Cannula Weight: 79 kg Body Mass Index (BMI) 27.6 Intake & Output: Intake and Output for Last 24 Hours 09/04/25 09/05/25 09/06/25 23:59 23:59 23:59 Intake Total 760 / 760 200 / 200 Balance 760 / 760 200 / 200 Lab / Micro Data 09/06/25 05:11 09/06/25 05:11 Labs: Laboratory Results - last 24 hr 09/06/25 05:11: WBC 11.6 H, RBC 4.05 L, Hgb 14.1, Hct 41.1, MCV 101.5 H, MCH 34.8 H, MCHC 34.3, RDW Std Deviation 59.8 H, RDW Coeff of Lisa 15.8 H, Plt Count 170, MPV 9.8, Immature Gran % (Auto) 0.600, Neut % (Auto) 93.5 H, Lymph % (Auto) 1.9 L, [place] % (Auto) 3.9, Eos % (Auto) 0.0, Baso % (Auto) 0.1, Absolute Neuts (auto) 10.9 H, Absolute Lymphs (auto) 0.22 L, Nucleated RBC % 0, Sodium 138, Potassium 4.2, Chloride 101, Carbon Dioxide 27.9, Anion Gap 9, BUN 30 H, Creatinine 0.86, Estim Creat Clear Calc 73.66, Est GFR (MDRD) Non-Af 93, B UN/Creatinine Ratio 35.2 H, Glucose 152 H, Calcium 9.0 Micro: Microbiology 09/05/25 12:13 Urine, Clean Catch Legionella Antigen - Final 09/05/25 12:13 Urine, Clean Catch Streptococcus pneumoniae Antigen (M - Final 09/05/25 12:04 Mucosa - Nose SARS-CoV-2, Influenza & RSV (PCR) - Final 09/04/25 21:48 Mucosa - Nasopharyngeal Respiratory Panel (PCR) - Final Radiography Diagnostic Testing: Radiology Impression Chest CTA 09/05/25 11:29 IMPRESSION: Upper lobe predominant centrilobular emphysema. No mass or consolidation. Calcified pleural plaque right lower thorax. Evidence of acute or chronic pulmonary embolus. Prior median sternotomy and CABG Reading Location: [id number] Echocardiogram 09/05/25 11:29 Interpretation Summary Normal left ventricular size. EF by 2D Hsu's biplane: 65%. Normal left ventricular systolic function Normal left ventricular diastolic function. No regional wall motion abnormalities noted Normal right ventricular systolic function No hemodynamically significant valvular disease Ordering Physician: Salvador Brewer Referring Physician: George Vázquez Performed By: Chidi Dorsey RDCS Physical Exam Const alert and no apparent distress HEENT head/scalp atraumatic and moist oral mucous membranes Resp Resp Narrative: Diminished breath sounds bilaterally. Faint end expiratory wheeze. Cardio regular rate, regular rhythm, S1 normal heart sound and S2 normal heart sound GI normal to inspection, nondistended, normoactive bowel sounds, soft to palpation, non-tender and non-distended Extremity normal to inspection and full ROM Assessment & Plan Assessment/Plan (1) COPD exacerbation: (2) Hypoxia: PLAN: Plan COPD exacerbation with hypoxia, * On home 2 L nasal cannula at night only. Requiring 3 L nasal cannula at rest in the ED to maintain appropriate oxygen saturations. Follows with Dr. Orellana. * Given his protracted nature of this respiratory flare and the fact that he has not probably responded with steroids as well as antibiotics, will check a CTA of the chest. * Continue bronchodilators as well as IV steroids with methylprednisolone * Respiratory panel negative, strep and legionella ag negative, COVID/infuenza/RSV negative. SCx pending. Mycoplasma IgG/IgM pending (combo test, but IgM more important given his failure to improve previously with steroids and abx. * CTA chest no acute process. No PE. Emphysema. * His residential field manager is Dr. Orellana. He will follow up as outpt. * Patient still with ongoing symptoms with no significant improvement. Though his workups been unremarkable, we will adjust his methylprednisolone to 4 times a day from 3 and add Augmentin. Nonsustained VT * Electrolytes within normal limits. * Echo 09/05 with EF 65%. Last echocardiogram was from September 2024 was EF was 60% (not 30% as I previously documented). Tobacco dependence * Has been weaning himself down, currently smoking about 5 cigarettes daily. Nicotine replacement therapy available as needed. Discussed cessation on discharge. History of CAD with CABG and extensive stenting, hypertension, hyperlipidemia * Follows with [place] [facility], last office visit in April. Hypertensive to the 160s to 170s systolic in the ED. Will continue home Plavix, statin, Lopressor, losartan, and nitrate. DVT prophylaxis: Lovenox CODE STATUS: Full code, verified Expected disposition: Home, TBD Charges/Coding Visit Charges Inpatient E&M: 56610 Subs Hosp L2
[2025-09-07] VITALS (9 sets, daily range): BP systolic 128–169; BP diastolic 75–103; PULSE 74–93; RESP 18–24; TEMP 36.3–36.8; O2SAT 94–98
[2025-09-07] MEDS: 0.9% Saline Lock 10 ML Syringe IV ×3 (00:25→21:13)
[2025-09-07 04:43] LABS: Hematocrit 41.3 % (40-54); Hemoglobin 14.2 g/dL (13.0-16.5); Immature Granulocytes Count 0.080 X10^3/uL (0.0-0.0); Mean Corp Hgb Conc 34.4 g/dL (32-36); Mean Corpuscular Volume 101.7 fL (80-94); Mean Platelet Vol. 10.3 fl (6.2-12.0); NRBC Flagged by Analyzer 0 % (0-5); POSITIVE DIFFERENTIAL YES; Platelet Count 152 K/mm3 (150-450); RBC Distribution Width CV 15.3 % (11.6-14.6); RBC Distribution Width SD 58.0 fl (35.1-43.9); Red Blood Count 4.06 M/mm3 (4.6-6.2); White Blood Count 10.0 K/mm3 (4.4-11.0)
[2025-09-07 05:10] LABS: Anion Gap 5 (5-15); BUN 27 mg/dL (4-19); BUN/Creat Ratio 34.8 RATIO (10-20); Calcium,Total 9.2 mg/dL (7.6-11.0); Carbon Dioxide 30.9 mmol/L (21.0-32.0); Chloride 101 mmol/L (98-108); Estimated Creatinine Clearance 79.18 ml/min (50-250); Glucose 123 mg/dL (70-99); Potassium 4.5 mmol/L (3.3-5.1)
--- NOTE | 2025-09-07 09:09 | PN.HOSP_ITS ---
Reason for Visit Chief Complaint: Worsening shortness of breath on exertion Subjective Subjective Saw patient at bedside this morning. Patient was sitting back in bed and breathing notably on 2 L nasal cannula at rest. However he continues to have moderate upper airway wheezing noted bilaterally and reports significant shortness of breath with exertion, with minimal improvement from admission. Has had significant sputum production and sputum culture from 09/06 positive for 3+ Pseudomonas, so antibiotics switched to IV cefepime while awaiting sensitivities. No other new concerns today. Objective Data Objective Data Vital Signs: Vital Signs Temp Pulse Resp BP Pulse Ox O2 Del Method O2 Flow Rate 98.1 F 74 24 H 169/103 H 97 Nasal Cannula 2 09/07/25 05:00 09/07/25 06:00 09/07/25 06:00 09/07/25 05:00 09/07/25 06:00 09/07/25 06:00 09/07/25 06:00 Oxygen Flow Rate (L/min) 2 Oxygen Delivery Method Nasal Cannula Weight: 79 kg Body Mass Index (BMI) 27.6 Intake & Output: Intake and Output for Last 24 Hours 09/05/25 09/06/25 09/07/25 23:59 23:59 23:59 Intake Total 760 / 760 940 / 940 Balance 760 / 760 940 / 940 Lab / Micro Data 09/07/25 04:13 09/07/25 04:25 Labs: Laboratory Results - last 24 hr 09/07/25 04:13: WBC 10.0, RBC 4.06 L, Hgb 14.2, Hct 41.3, MCV 101.7 H, MCH 35.0 H, MCHC 34.4, RDW Std Deviation 58.0 H, RDW Coeff of Lisa 15.3 H, Plt Count 152, MPV 10.3, Immature Gran % (Auto) 0.800, Neut % (Auto) 94.8 H, Lymph % (Auto) 0.9 L, [place] % (Auto) 3.3, Eos % (Auto) 0.1, Baso % (Auto) 0.1, Absolute Neuts (auto) 9.5 H, Absolute Lymphs (auto) 0.09 L, Nucleated RBC % 0 09/07/25 04:25: Sodium 138, Potassium 4.5, Chloride 101, Carbon Dioxide 30.9, Anion Gap 5, BUN 27 H, Creatinine 0.77, Estim Creat Clear Calc 79.18, Est GFR (MDRD) Non-Af 96, BUN/Creatinine Ratio 34.8 H, Glucose 123 H, Calcium 9.2 Micro: Microbiology 09/06/25 08:00 Sputum, Expectorated/Coughed Gram Stain - Final 09/06/25 08:00 Sputum, Expectorated/Coughed Respiratory Culture - Preliminary GNR Poss Pseudomonas sp 09/05/25 12:13 Urine, Clean Catch Legionella Antigen - Final 09/05/25 12:13 Urine, Clean Catch Streptococcus pneumoniae Antigen (M - Final 09/05/25 12:04 Mucosa - Nose SARS-CoV-2, Influenza & RSV (PCR) - Final 09/04/25 21:48 Mucosa - Nasopharyngeal Respiratory Panel (PCR) - Final Physical Exam Const alert and no apparent distress HEENT head/scalp atraumatic and moist oral mucous membranes Resp Resp Narrative: Breathing comfortably on 2 L at rest. Continues to have moderate expiratory wheezing noted in upper airways bilaterally. No crackles noted. Cardio regular rate, regular rhythm, S1 normal heart sound and S2 normal heart sound GI normal to inspection, nondistended, normoactive bowel sounds, soft to palpation, non-tender and non-distended Extremity normal to inspection and full ROM Assessment & Plan Assessment/Plan (1) COPD exacerbation: (2) Hypoxia: PLAN: Plan Patient is a 70-year-old male who presented to [facility] ED on 09/04/2025 with worsening shortness of breath on exertion. COPD exacerbation with hypoxia suspected due to Pseudomonas pneumonia * On home 2 L nasal cannula at night only. Requiring 3 L nasal cannula at rest in the ED to maintain appropriate oxygen saturations. Follows with Dr. Orellana. * Given his protracted nature of this respiratory flare and the fact that he has not probably responded with steroids as well as antibiotics, will check a CTA of the chest. * Continue bronchodilators as well as IV steroids with methylprednisolone * Respiratory panel negative, strep and legionella ag negative, COVID/infuenza/RSV negative. SCx pending. Mycoplasma IgG/IgM pending (combo test, but IgM more important given his failure to improve previously with steroids and abx. * CTA chest no acute process. No PE. Emphysema. * His sales program manager is Dr. Orellana. He will follow up as outpt. * Patient still with ongoing symptoms with no significant improvement. Though his workups been unremarkable, we will adjust his methylprednisolone to 4 times a day from 3 and add Augmentin. * 09/07: Sputum culture from 09/06 positive for 3+ Pseudomonas, sensitivities pending. Switched from Augmentin to IV cefepime. Continue scheduled nebs and IV steroids 4 times daily. Can consider pulmonary consult as needed. Nonsustained VT * Electrolytes within normal limits. * Echo 09/05 with EF 65%. Last echocardiogram was from September 2024 was EF was 60% (not 30% as I previously documented). * Continue cardiac monitoring. Tobacco dependence * Has been weaning himself down, currently smoking about 5 cigarettes daily. Nicotine replacement therapy available as needed. Discussed cessation on discharge. History of CAD with CABG and extensive stenting, hypertension, hyperlipidemia * Follows with [facility], last office visit in April. Hypertensive to the 160s to 170s systolic in the ED. Will continue home Plavix, statin, Lopressor, losartan, and nitrate. DVT prophylaxis: Lovenox CODE STATUS: Full code, verified Expected disposition: Home, TBD Total clinical time spent by myself addressing the patient's medical issues, reviewing all the data, and collaborating with patient's care team: 38 minutes. Charges/Coding Visit Charges Inpatient E&M: 76950 Subs Hosp L2
[2025-09-07] MEDS: Potassium Chloride Oral Tablet 10 MEQ PO (09:51)
[2025-09-07] MEDS: Cefepime HCl 2 GM in 0.9% Normal Saline (100mL MB+) 100 ML IV ×2 (12:52→21:12)
[2025-09-07] MEDS: Lactobacillis Acidophilus 1 CAP PO ×2 (17:19→21:12)
--- NOTE | 2025-09-07 21:11 | EKG12_ITS ---
Test Reason : CP Blood Pressure : */* mmHG Vent. Rate : 88 BPM Atrial Rate : 88 BPM P-R Int : 122 ms QRS Dur : 126 ms QT Int : 378 ms P-R-T Axes : 70 -71 51 degrees QTcB Int : 457 ms Normal sinus rhythm Possible Left atrial enlargement Left axis deviation Right bundle branch block Minimal voltage criteria for LVH, may be normal variant ( R in aVL ) Abnormal ECG When compared with ECG of 04-Sep-2025 16:27, MANUAL COMPARISON REQUIRED DATA IS UNCONFIRMED Confirmed by Carrillo Malave ([id number]), photographic editor KEIRY URBANO ([id number]) on 09/08/2025 10:32:08 AM Referred By: JEVON Confirmed By: Carrillo Malave
[2025-09-07] MEDS: MELATONIN 3 MG TABLET PO (21:12)
[2025-09-08] VITALS (11 sets, daily range): BP systolic 139–158; BP diastolic 72–93; PULSE 64–95; RESP 16–20; TEMP 36.4–37; O2SAT 94–96
[2025-09-08] MEDS: Cefepime HCl 2 GM in 0.9% Normal Saline (100mL MB+) 100 ML IV ×3 (05:26→22:16)
[2025-09-08] MEDS: Lactobacillis Acidophilus 1 CAP PO ×2 (05:26→14:06)
[2025-09-08] MEDS: 0.9% Saline Lock 10 ML Syringe IV ×3 (05:27→22:16)
[2025-09-08] MEDS: Potassium Chloride Oral Tablet 10 MEQ PO (09:25)
--- NOTE | 2025-09-08 14:53 | PCM.CONS.GEN ---
Assessment & Plan Assessment/Plan (1) COPD exacerbation: PLAN: CTA chest did not show any focal infiltrate. Sputum cx with PsA, pt not improving with cefepime. Had tendonopathy in the past with levaquin, so no po options for treating this pseudomonas. May need pulm eval here. Cont cefepime for now. Will follow, thank you HPI Consult Data Date of Consult: 09/08/25 HPI Narrative Reason for Consultation: PsA infection HPI Narrative: RAISA SMILEY, is a 70 M with COPD, pt of Dr. Orellana, admitted 09/04 with 3 weeks increased cough with yellow/green sputum. Has been on steroids and several courses of abx, most recently doxycycline. No fever. Sputum with PsA, admitted here, now on cefepime, not feeling any different. Full ROS performed and neg except as noted above. [facility] Medical History Essential hypertension Alcohol use History of steroid therapy Arthritis High cholesterol Smoker On home oxygen therapy COPD (chronic obstructive pulmonary disease) Shortness of breath on exertion History of pain when walking Hypertension History of echocardiogram History of stress test Cardiology follow-up encounter [place] Nodule of lower lobe of left lung Perforated diverticulum of large intestine Presence of stent in coronary artery (~11/12/21) Easy bruising Excessive bleeding History of ulceration Gastric reflux History of diverticulitis Chronic bronchitis Nicotine dependence Osteoarthritis DDD (degenerative disc disease), lumbar Atherosclerosis of coronary artery of [place] heart without angina pectoris Atherosclerosis of coronary artery bypass graft without angina pectoris Hyperlipidemia Home Medications Medication Instructions Recorded Last Taken Type clopidogrel 75 mg tablet (Plavix) 75 mg PO DAILY anti platelet #90 10/04/21 11/26/22 Rx tabs albuterol sulfate 90 mcg/actuation 2 puff inhalation Q6H PRN PRN 07/30/24 Unknown Rx aerosol inhaler Shortness Of Breath #8.5 grams budesonide-formoterol HFA 160 2 puff inhalation BID #3 ea 07/30/24 Unknown Rx mcg-4.5 mcg/actuation aerosol inhaler (Symbicort) isosorbide mononitrate 30 mg 30 mg PO DAILY #90 TABLETS 09/09/24 Unknown Rx tablet,extended release 24 hr ipratropium 0.5 mg-albuterol 3 mg 3 ml continuous nebulization Q6H 09/10/24 Unknown Rx (2.5 mg base)/3 mL nebulization PRN shortness of breath or soln wheezing #180 mL metoprolol tartrate 50 mg tablet 50 mg PO BID #180 tabs 11/05/24 Unknown Rx losartan 50 mg tablet 50 mg PO QPM #30 tabs 01/08/25 Unknown Rx furosemide 40 mg tablet 20 mg PO QAM PRN 05/05/25 Unknown History potassium chloride 10 mEq 10 meq PO QDAY 05/05/25 Unknown History capsule,extended release rosuvastatin 40 mg tablet 40 mg PO QHS #90 tabs 07/14/25 Unknown Rx tramadol 50 mg tablet 50 mg PO Q8 PRN pain 07/21/25 Unknown History OXYGEN - Supplemental ([facility] 09/05/25 Unknown History INFORMATIONAL USE ONLY) Allergy/AdvReac Type Severity Reaction Status Date / Time levofloxacin (From Levaquin) AdvReac Severe tendonitis Verified 09/04/25 16:01 Family History Father CAD (coronary artery disease) Brother Hypertension Grandfather Pancreatic cancer Grandmother Heart disease Surgical History History of laparoscopic cholecystectomy S/P laparoscopic cholecystectomy Status post double vessel coronary artery bypass Presence of coronary angioplasty implant and graft (~09/29/21) Hx of left cataract extraction Hx of right cataract extraction History of cardiac catheterization History of colectomy S/p bilateral carpal tunnel release H/O coronary artery bypass surgery (10/14/96) History of left knee replacement History of appendectomy History of tonsillectomy History of partial colectomy Social History Smoking Status: Current every day smoker tobacco type: cigarettes alcohol intake: current alcohol intake frequency: 0-2 drinks per day substance use type: does not use caffeine: Yes Type: coffee Number of servings: 2 what type of physical activity do you participate in: none seatbelt use: always do you feel safe at home: Yes Physical Exam Const alert, oriented x3 and no apparent distress General Appearance: cooperative HEENT normocephalic and head/scalp atraumatic Eyes PERRL and EOMs intact bilaterally Neck supple and No nodes Resp Auscultation: diminished lung sounds Cardio regular rate, regular rhythm and no murmurs GI soft to palpation, non-tender and non-distended Extremity General Extremity: Negative for edema Skin no rashes or lesions noted Neuro CN's II-XII intact bilaterally Lab / Micro Data Attestation: I reviewed the patient's lab results. 09/07/25 04:13 09/07/25 04:25 Micro: Microbiology 09/06/25 08:00 Sputum, Expectorated/Coughed Gram Stain - Final 09/06/25 08:00 Sputum, Expectorated/Coughed Respiratory Culture - Final Pseudomonas aeruginosa
[2025-09-08 15:08] LABS: Mycoplasma pneum. AB IgM < 770 U/mL (0-769)
--- NOTE | 2025-09-08 15:59 | PN.HOSP_ITS ---
Reason for Visit Chief Complaint: Worsening shortness of breath on exertion Objective Data Objective Data Vital Signs: Vital Signs Temp Pulse Resp BP Pulse Ox O2 Del Method O2 Flow Rate 97.8 F 80 18 141/72 H 95 Nasal Cannula 2 09/08/25 15:20 09/08/25 15:20 09/08/25 15:20 09/08/25 15:20 09/08/25 15:20 09/08/25 15:20 09/08/25 15:20 Oxygen Flow Rate (L/min) 2 Oxygen Delivery Method Nasal Cannula Weight: 174 lb 2.643 oz Body Mass Index (BMI) 27.6 Intake & Output: Intake and Output for Last 24 Hours 09/06/25 09/07/25 09/08/25 23:59 23:59 23:59 Intake Total 940 / 940 1200 / 1200 540 / 540 Balance 940 / 940 1200 / 1200 540 / 540 Lab / Micro Data 09/07/25 04:13 09/07/25 04:25 Labs: Laboratory Results - last 24 hr 09/05/25 11:46: Mycoplasma pneumon IgG < 100, Mycoplasma pneumon IgM < 770 Micro: Microbiology 09/06/25 08:00 Sputum, Expectorated/Coughed Gram Stain - Final 09/06/25 08:00 Sputum, Expectorated/Coughed Respiratory Culture - Final Pseudomonas aeruginosa 09/05/25 12:13 Urine, Clean Catch Legionella Antigen - Final 09/05/25 12:13 Urine, Clean Catch Streptococcus pneumoniae Antigen (M - Final 09/05/25 12:04 Mucosa - Nose SARS-CoV-2, Influenza & RSV (PCR) - Final 09/04/25 21:48 Mucosa - Nasopharyngeal Respiratory Panel (PCR) - Final Physical Exam Narrative Seen and examined. Patient follows Dr. Arizmendi for advanced COPD and he was sent by him for treatment of pneumonia. Patient is still short of breath even on mild exertion going to bathroom. Had BM yesterday. No chest pain. Physical exam General: Alert, Oriented x3, Cooperative. BMI 27.3 kg/m² HEENT: Atraumatic, PERRLA, EOMI, Normocephalic. Oral: No Gingival or Mucosal Lesions/ Ulcerations Neck: Supple, No JVD, Negative Carotid Bruits Chest wall/Lungs: Air entry diminished in bilateral lung bases. Bilateral lower lobes coarse crepitations. Cardiovascular: Regular rate and rhythm, Normal S1,S2, No M/G/R Abdomen: Bowel Sounds Present, Soft, Non Tender, Non-Distended : No dysuria. No renal angle tenderness. No suprapubic tenderness. Extremities: No edema, Capillary Refill Less than 3 Seconds Skin: No rashes, No breakdown Musculoskeletal: No Tenderness to Palpation of Joints or Extremities Neurological: Cranial nerves II-XII grossly intact, DTR 2+/4. No acute focal neurological deficit. Psych/Mental Status: Normal Affect, Appropriate. Assessment & Plan Assessment/Plan (1) COPD exacerbation: (2) Hypoxia: PLAN: Plan Patient is a 70-year-old male who presented to [facility] ED on 09/04/2025 with worsening shortness of breath on exertion. COPD exacerbation with hypoxia suspected due to Pseudomonas pneumonia * On home 2 L nasal cannula at night only. Requiring 3 L nasal cannula at rest in the ED to maintain appropriate oxygen saturations. Follows with Dr. Orellana. * Continue bronchodilators as well as IV steroids with methylprednisolone * Respiratory panel negative, strep and legionella ag negative, COVID/infuenza/RSV negative. SCx pending. Mycoplasma IgG/IgM pending (combo test, but IgM more important given his failure to improve previously with steroids and abx. * CTA chest no acute process. No PE. Emphysema. * His silk screen operator is Dr. Orellana. He will follow up as outpt. * Patient still with ongoing symptoms with no significant improvement. Though his workups been unremarkable, we will adjust his methylprednisolone to 4 times a day from 3 and add Augmentin. 09/08: Sputum culture from 09/06 positive for 3+ Pseudomonas, sensitivities pending. Earlier, switched from Augmentin to IV cefepime. Continue scheduled nebs and IV steroids 4 times daily. 09/08: Sputum culture positive for Pseudomonas though CT chest did not show any acute consolidation or infiltrate. Patient had tendinopathy in the past with Levaquin and currently not improving with IV cefepime. For now continue cefepime. Pulmonary consult requested Nonsustained VT * Electrolytes within normal limits. * Echo 09/05 with EF 65%. Last echocardiogram was from September 2024 was EF was 60% (not 30% as I previously documented). * Continue cardiac monitoring. Tobacco dependence * Has been weaning himself down, currently smoking about 5 cigarettes daily. Nicotine replacement therapy available as needed. Discussed cessation on discharge. History of CAD with CABG and extensive stenting, hypertension, hyperlipidemia * Follows with [facility], last office visit in April. Hypertensive to the 160s to 170s systolic in the ED. Will continue home Plavix, statin, Lopressor, losartan, and nitrate. DVT prophylaxis: Lovenox CODE STATUS: Full code, verified Charges/Coding Visit Charges Inpatient E&M: 94202 Subs Hosp L2
--- NOTE | 2025-09-08 22:35 | PCM.HOSP.N ---
Hospitalist Note Nrsg notified of pt taking new Mucinex dosing of 1200mg in a single tablet and this tablet became lodged in the esophagus. The tablet dissolved enough for the pt to take water and his next medications. Asked pharmacy to dose the pt with two 600mg tabs of Mucinex. Nrsg to administer large pills with apple sauce.
[2025-09-09] VITALS (11 sets, daily range): BP systolic 137–158; BP diastolic 67–90; PULSE 72–86; RESP 16–20; TEMP 36.6–36.9; O2SAT 88–98
[2025-09-09] MEDS: Cefepime HCl 2 GM in 0.9% Normal Saline (100mL MB+) 100 ML IV ×3 (05:09→21:54)
[2025-09-09 05:40] LABS: Hematocrit 43.1 % (40-54); Hemoglobin 14.6 g/dL (13.0-16.5); Immature Granulocytes Count 0.080 X10^3/uL (0.0-0.0); Mean Corp Hgb Conc 33.9 g/dL (32-36); Mean Corpuscular Volume 101.4 fL (80-94); Mean Platelet Vol. 10.5 fl (6.2-12.0); NRBC Flagged by Analyzer 0 % (0-5); POSITIVE DIFFERENTIAL YES; Platelet Count 152 K/mm3 (150-450); RBC Distribution Width CV 15.0 % (11.6-14.6); RBC Distribution Width SD 56.0 fl (35.1-43.9); Red Blood Count 4.25 M/mm3 (4.6-6.2); White Blood Count 8.7 K/mm3 (4.4-11.0)
[2025-09-09 06:16] LABS: Anion Gap 10 (5-15); BUN 21 mg/dL (4-19); BUN/Creat Ratio 24.0 RATIO (10-20); Calcium,Total 8.8 mg/dL (7.6-11.0); Carbon Dioxide 26.1 mmol/L (21.0-32.0); Chloride 99 mmol/L (98-108); Estimated Creatinine Clearance 74.52 ml/min (50-250); Glucose 106 mg/dL (70-99); Potassium 4.7 mmol/L (3.3-5.1)
[2025-09-09] MEDS: Potassium Chloride Oral Tablet 10 MEQ PO (09:04)
--- NOTE | 2025-09-09 10:16 | PCM.PN.ID ---
Physical Exam Narrative Feeling better, no fever, breathing easier, no n/v/d. Const alert and no apparent distress General Appearance: cooperative Resp Auscultation: wheezes and diminished lung sounds Cardio regular rate and regular rhythm GI soft to palpation, non-tender and non-distended Skin no rashes or lesions noted ID ID: Route of nutrition/ use of supplements: [] Nutritional Intake: [] IV Site: [] Stone Catheter: [] Assessment & Plan Assessment/Plan (1) COPD exacerbation: PLAN: CTA chest did not show any focal infiltrate. Sputum cx with PsA, feeling better today. Had tendonopathy in the past with levaquin, so no po options for treating this pseudomonas. Cont cefepime for 1-2 more days. He does not want ECF placement or home IV abx. Will follow
[2025-09-09] MEDS: 0.9% Saline Lock 10 ML Syringe IV ×2 (13:48→21:58)
[2025-09-09] MEDS: Lactobacillis Acidophilus 1 CAP PO ×2 (13:48→21:58)
--- NOTE | 2025-09-09 16:37 | PCM.PN.HOSP ---
Reason for Visit Chief Complaint: Worsening shortness of breath on exertion Objective Data Objective Data Vital Signs: Vital Signs Temp Pulse Resp BP Pulse Ox O2 Del Method O2 Flow Rate 98.5 F 77 16 137/67 H 97 Nasal Cannula 2 09/09/25 14:58 09/09/25 14:58 09/09/25 14:58 09/09/25 14:58 09/09/25 14:58 09/09/25 14:58 09/09/25 14:58 Oxygen Flow Rate (L/min) 2 Oxygen Delivery Method Nasal Cannula Weight: 174 lb 2.643 oz Body Mass Index (BMI) 27.6 Intake & Output: Intake and Output for Last 24 Hours 09/07/25 09/08/25 09/09/25 23:59 23:59 23:59 Intake Total 1200 / 1200 1100 / 1100 660 / 660 Balance 1200 / 1200 1100 / 1100 660 / 660 Lab / Micro Data 09/09/25 05:16 09/09/25 05:16 Labs: Laboratory Results - last 24 hr 09/09/25 05:16: WBC 8.7, RBC 4.25 L, Hgb 14.6, Hct 43.1, MCV 101.4 H, MCH 34.4 H, MCHC 33.9, RDW Std Deviation 56.0 H, RDW Coeff of Lisa 15.0 H, Plt Count 152, MPV 10.5, Immature Gran % (Auto) 0.900, Neut % (Auto) 91.9 H, Lymph % (Auto) 1.7 L, [place] % (Auto) 5.1, Eos % (Auto) 0.3, Baso % (Auto) 0.1, Absolute Neuts (auto) 8.0 H, Absolute Lymphs (auto) 0.15 L, Nucleated RBC % 0, Sodium 135, Potassium 4.7, Chloride 99, Carbon Dioxide 26.1, Anion Gap 10, BUN 21 H, Creatinine 0.85, Estim Creat Clear Calc 74.52, Est GFR (MDRD) Non-Af 93, BUN/Creatinine Ratio 24.0 H, Glucose 106 H, Calcium 8.8 Micro: Microbiology 09/06/25 08:00 Sputum, Expectorated/Coughed Gram Stain - Final 09/06/25 08:00 Sputum, Expectorated/Coughed Respiratory Culture - Final Pseudomonas aeruginosa 09/05/25 12:13 Urine, Clean Catch Legionella Antigen - Final 09/05/25 12:13 Urine, Clean Catch Streptococcus pneumoniae Antigen (M - Final 09/05/25 12:04 Mucosa - Nose SARS-CoV-2, Influenza & RSV (PCR) - Final 09/04/25 21:48 Mucosa - Nasopharyngeal Respiratory Panel (PCR) - Final Physical Exam Narrative Seen and examined. Patient oxygen requirement improved. Currently on 2 L of oxygen. Subjectively feels improvement in shortness of breath and more energy. Patient follows Dr. Orellana for advanced COPD and he was sent by him for treatment of pneumonia. No chest pain. Physical exam General: Alert, Oriented x3, Cooperative. BMI 27.3 kg/m² HEENT: Atraumatic, PERRLA, EOMI, Normocephalic. Oral: No Gingival or Mucosal Lesions/ Ulcerations Neck: Supple, No JVD, Negative Carotid Bruits Chest wall/Lungs: Air entry diminished in bilateral lung bases. Improvement in coarse crepitations. Mild occasional crepitations Cardiovascular: Regular rate and rhythm, Normal S1,S2, No M/G/R Abdomen: Bowel Sounds Present, Soft, Non Tender, Non-Distended : No dysuria. No renal angle tenderness. No suprapubic tenderness. Extremities: No edema, Capillary Refill Less than 3 Seconds Skin: No rashes, No breakdown Musculoskeletal: No Tenderness to Palpation of Joints or Extremities Neurological: Cranial nerves II-XII grossly intact, DTR 2+/4. No acute focal neurological deficit. Psych/Mental Status: Normal Affect, Appropriate. Assessment & Plan Assessment/Plan (1) COPD exacerbation: (2) Hypoxia: PLAN: Plan Patient is a 70-year-old male who presented to [facility] ED on 09/04/2025 with worsening shortness of breath on exertion. COPD exacerbation with hypoxia suspected due to Pseudomonas pneumonia On home 2 L nasal cannula at night only. Requiring 3 L nasal cannula at rest in the ED to maintain appropriate oxygen saturations. Follows with Dr. Orellana. Continue bronchodilators as well as IV steroids with methylprednisolone Respiratory panel negative, strep and legionella ag negative, COVID/infuenza/RSV negative. SCx pending. Mycoplasma IgG/IgM pending (combo test, but IgM more important given his failure to improve previously with steroids and abx. CTA chest no acute process. No PE. Emphysema. His hedge trimmer is Dr. Orellana. He will follow up as outpt. Patient still with ongoing symptoms with no significant improvement. Though his workups been unremarkable, we will adjust his methylprednisolone to 4 times a day from 3 and add Augmentin. 09/08: Sputum culture from 09/06 positive for 3+ Pseudomonas, sensitivities pending. Earlier, switched from Augmentin to IV cefepime. Continue scheduled nebs and IV steroids 4 times daily. 09/08: Sputum culture positive for Pseudomonas though CT chest did not show any acute consolidation or infiltrate. Patient had tendinopathy in the past with Levaquin and currently not improving with IV cefepime. For now continue cefepime. Pulmonary consult requested 09/09: I called Dr. Arizmendi but has not seen the patient. Discussed with the ID. Does not want ECF placement or home IV antibiotic. Continue cefepime for 1-2 more days. Anticipate discharge tomorrow Nonsustained VT Electrolytes within normal limits. Echo 09/05 with EF 65%. Last echocardiogram was from September 2024 was EF was 60% (not 30% as I previously documented). Continue cardiac monitoring. Tobacco dependence Has been weaning himself down, currently smoking about 5 cigarettes daily. Nicotine replacement therapy available as needed. Discussed cessation on discharge. History of CAD with CABG and extensive stenting, hypertension, hyperlipidemia Follows with [facility], last office visit in April. Hypertensive to the 160s to 170s systolic in the ED. Will continue home Plavix, statin, Lopressor, losartan, and nitrate. DVT prophylaxis: Lovenox CODE STATUS: Full code, verified Charges/Coding Visit Charges Inpatient E&M: 55350 Subs Hosp L2
[2025-09-10] VITALS (10 sets, daily range): BP systolic 127–146; BP diastolic 73–96; PULSE 76–93; RESP 16–18; TEMP 36.6–36.9; O2SAT 90–97
[2025-09-10 05:36] LABS: Hematocrit 41.3 % (40-54); Hemoglobin 14.5 g/dL (13.0-16.5); Immature Granulocytes Count 0.090 X10^3/uL (0.0-0.0); Mean Corp Hgb Conc 35.1 g/dL (32-36); Mean Corpuscular Volume 99.0 fL (80-94); Mean Platelet Vol. 10.3 fl (6.2-12.0); NRBC Flagged by Analyzer 0 % (0-5); POSITIVE DIFFERENTIAL YES; Platelet Count 155 K/mm3 (150-450); RBC Distribution Width CV 14.8 % (11.6-14.6); RBC Distribution Width SD 54.7 fl (35.1-43.9); Red Blood Count 4.17 M/mm3 (4.6-6.2); White Blood Count 9.0 K/mm3 (4.4-11.0)
[2025-09-10 06:21] LABS: Anion Gap 13 (5-15); BUN 21 mg/dL (4-19); BUN/Creat Ratio 25.7 RATIO (10-20); Calcium,Total 8.8 mg/dL (7.6-11.0); Carbon Dioxide 22.4 mmol/L (21.0-32.0); Chloride 99 mmol/L (98-108); Estimated Creatinine Clearance 76.32 ml/min (50-250); Glucose 111 mg/dL (70-99); Potassium 4.7 mmol/L (3.3-5.1)
[2025-09-10] MEDS: Cefepime HCl 2 GM in 0.9% Normal Saline (100mL MB+) 100 ML IV ×3 (06:41→22:25)
[2025-09-10] MEDS: Potassium Chloride Oral Tablet 10 MEQ PO (09:16)
--- NOTE | 2025-09-10 13:48 | PCM.PN.ID ---
Physical Exam Narrative Feeling better, breathing well, walked the halls some. No fever. Const alert and no apparent distress General Appearance: cooperative Resp Auscultation: diminished lung sounds Cardio regular rate and regular rhythm GI soft to palpation, non-tender and non-distended Skin no rashes or lesions noted ID ID: Route of nutrition/ use of supplements: [] Nutritional Intake: [] IV Site: [] Stone Catheter: [] Assessment & Plan Assessment/Plan (1) COPD exacerbation: PLAN: CTA chest did not show any focal infiltrate. Sputum cx with PsA, feeling better today. Had tendonopathy in the past with levaquin, so no po options for treating this pseudomonas. Expressed concern to him that infection may be incompletely treated, has only been on cefepime since 09/07. He refuses to stay in hospital, refuses home iv abx. He is to monitor for signs of worsening infection. Will follow as needed, d/w Dr. Loya
--- NOTE | 2025-09-10 14:28 | PHA.DC_ITS ---
Pharmacy [facility] Counseling Pharmacy Service has performed discharge medication reconciliation and counseling for this patient. 1. CEFDINIR 300MG PO BID X 5 DAYS 2. MUCINEX DM 1T PO BID 3. PREDNISONE 40MG PO DAILY X 5 DAYS The patient's discharge medication list was reviewed for discrepancies and discrepancies were resolved. The patient was counseled on the following discharge medications and changes in medications for homegoing were reviewed. The Reason for Use, instructions for use, and potential side effects were reviewed for all new medications. The patient's questions regarding all of their medications were answered. The patient was able to verbally demonstrate an understanding of their discharge medications. Patient counseled by director state pharmacyNikolas. Medications at Discharge Home Medications clopidogrel 75 mg tablet (Plavix) 75 mg PO DAILY anti platelet #90 tabs 10/04/21 albuterol sulfate 90 mcg/actuation aerosol inhaler 2 puff inhalation Q6H PRN PRN Shortness Of Breath #8.5 grams 07/30/24 budesonide-formoterol HFA 160 mcg-4.5 mcg/actuation aerosol inhaler (Symbicort) 2 puff inhalation BID #3 ea 07/30/24 isosorbide mononitrate 30 mg tablet,extended release 24 hr 30 mg PO DAILY #90 TABLETS 09/09/24 ipratropium 0.5 mg-albuterol 3 mg (2.5 mg base)/3 mL nebulization soln 3 ml continuous nebulization Q6H PRN shortness of breath or wheezing #180 mL 09/10/24 metoprolol tartrate 50 mg tablet 50 mg PO BID #180 tabs 11/05/24 losartan 50 mg tablet 50 mg PO QPM #30 tabs 01/08/25 furosemide 40 mg tablet 20 mg PO QAM PRN 05/05/25 potassium chloride 10 mEq capsule,extended release 10 meq PO QDAY 05/05/25 rosuvastatin 40 mg tablet 40 mg PO QHS #90 tabs 07/14/25 tramadol 50 mg tablet 50 mg PO Q8 PRN pain 07/21/25 OXYGEN - Supplemental ([facility] INFORMATIONAL USE ONLY) 09/05/25 cefdinir 300 mg capsule 300 mg PO BID 5 days #10 caps 09/10/25 dextromethorphan-guaifenesin ER 60 mg-1,200 mg tab,extend release,12hr (Mucinex DM) 1 tab PO Q12H 7 days #14 tabs 09/10/25 prednisone 20 mg tablet 40 mg (2 x 20 mg) PO DAILY 5 days #10 tabs 09/10/25
--- NOTE | 2025-09-10 15:07 | PN.HOSP_ITS ---
Reason for Visit Chief Complaint: Worsening shortness of breath on exertion Objective Data Objective Data Vital Signs: Vital Signs Temp Pulse Resp BP Pulse Ox O2 Del Method O2 Flow Rate 98.3 F 80 18 127/93 H 94 Room Air 2 09/10/25 08:56 09/10/25 15:01 09/10/25 15:01 09/10/25 09:16 09/10/25 08:56 09/10/25 10:00 09/10/25 07:13 Oxygen Flow Rate (L/min) 2 Oxygen Delivery Method Room Air Weight: 174 lb 2.643 oz Body Mass Index (BMI) 27.6 Intake & Output: Intake and Output for Last 24 Hours 09/08/25 09/09/25 09/10/25 23:59 23:59 23:59 Intake Total 1100 / 1100 1100 / 1100 100 / 100 Balance 1100 / 1100 1100 / 1100 100 / 100 Lab / Micro Data 09/10/25 05:10 09/10/25 05:10 Labs: Laboratory Results - last 24 hr 09/10/25 05:10: WBC 9.0, RBC 4.17 L, Hgb 14.5, Hct 41.3, MCV 99.0 H, MCH 34.8 H, MCHC 35.1, RDW Std Deviation 54.7 H, RDW Coeff of Lisa 14.8 H, Plt Count 155, MPV 10.3, Immature Gran % (Auto) 1.000 H, Neut % (Auto) 90.4 H, Lymph % (Auto) 2.4 L , [place] % (Auto) 6.1, Eos % (Auto) 0.0, Baso % (Auto) 0.1, Absolute Neuts (auto) 8.1 H, Absolute Lymphs (auto) 0.22 L, Nucleated RBC % 0, Sodium 135, Potassium 4.7, Chloride 99, Carbon Dioxide 22.4, Anion Gap 13, BUN 21 H, Creatinine 0.83, Estim Creat Clear Calc 76.32, Est GFR (MDRD) Non-Af 94, BUN/Creatinine Ratio 25.7 H, Glucose 111 H, Calcium 8.8 Micro: Microbiology 09/06/25 08:00 Sputum, Expectorated/Coughed Gram Stain - Final 09/06/25 08:00 Sputum, Expectorated/Coughed Respiratory Culture - Final Pseudomonas aeruginosa 09/05/25 12:13 Urine, Clean Catch Legionella Antigen - Final 09/05/25 12:13 Urine, Clean Catch Streptococcus pneumoniae Antigen (M - Final 09/05/25 12:04 Mucosa - Nose SARS-CoV-2, Influenza & RSV (PCR) - Final 09/04/25 21:48 Mucosa - Nasopharyngeal Respiratory Panel (PCR) - Final Physical Exam Narrative Seen and examined. Hypoxia is resolved. Patient 93 to 94% on room air. He states he walked to the bathroom and does not feel short of breath. Patient follows Dr. Orellana for advanced COPD and he was sent by him for treatment of pneumonia. No chest pain. Physical exam General: Alert, Oriented x3, Cooperative. BMI 27.3 kg/m² HEENT: Atraumatic, PERRLA, EOMI, Normocephalic. Oral: No Gingival or Mucosal Lesions/ Ulcerations Neck: Supple, No JVD, Negative Carotid Bruits Chest wall/Lungs: Air entry diminished in bilateral lung bases. Lungs–mostly clear to Cardiovascular: Regular rate and rhythm, Normal S1,S2, No M/G/R Abdomen: Bowel Sounds Present, Soft, Non Tender, Non-Distended : No dysuria. No renal angle tenderness. No suprapubic tenderness. Extremities: No edema, Capillary Refill Less than 3 Seconds Skin: No rashes, No breakdown Musculoskeletal: No Tenderness to Palpation of Joints or Extremities Neurological: Cranial nerves II-XII grossly intact, DTR 2+/4. No acute focal neurological deficit. Psych/Mental Status: Normal Affect, Appropriate. Assessment & Plan Assessment/Plan (1) COPD exacerbation: (2) Hypoxia: PLAN: Plan Patient is a 70-year-old male who presented to [facility] ED on 09/04/2025 with worsening shortness of breath on exertion. COPD exacerbation with hypoxia suspected due to Pseudomonas pneumonia * On home 2 L nasal cannula at night only. Requiring 3 L nasal cannula at rest in the ED to maintain appropriate oxygen saturations. Follows with Dr. Orellana. * Continue bronchodilators as well as IV steroids with methylprednisolone * Respiratory panel negative, strep and legionella ag negative, COVID/infuenza/RSV negative. SCx pending. Mycoplasma IgG/IgM pending (combo test, but IgM more important given his failure to improve previously with steroids and abx. * CTA chest no acute process. No PE. Emphysema. * His ecclesiastical worker is Dr. Orellana. He will follow up as outpt. * Patient still with ongoing symptoms with no significant improvement. Though his workups been unremarkable, we will adjust his methylprednisolone to 4 times a day from 3 and add Augmentin. 09/08: Sputum culture from 09/06 positive for 3+ Pseudomonas, sensitivities pending. Earlier, switched from Augmentin to IV cefepime. Continue scheduled nebs and IV steroids 4 times daily. 09/08: Sputum culture positive for Pseudomonas though CT chest did not show any acute consolidation or infiltrate. Patient had tendinopathy in the past with Levaquin and currently not improving with IV cefepime. For now continue cefepime. Pulmonary consult requested 09/09: I called Dr. Orellana but has not seen the patient. Discussed with the ID. Does not want ECF placement or home IV antibiotic. Continue cefepime for 1-2 more days. Anticipate discharge tomorrow 09/10: Patient wanted to go home. Advised that he had antibiotic IV cefepime against Pseudomonas pneumonia started on 09/07 and had tendinitis with levofloxacin therefore there is no oral antibiotic against Pseudomonas. He will need IV antibiotic. Initially he did not want IV midline or IV antibiotic or go to jail to complete antibiotic duration but after the discussion with patient's and him in the room in afternoon he agreed to stay. Midline ordered. ID follow-up to recommend antibiotic for discharge Nonsustained VT * Electrolytes within normal limits. * Echo 09/05 with EF 65%. Last echocardiogram was from September 2024 was EF was 60% (not 30% as I previously documented). * Continue cardiac monitoring. Tobacco dependence * Has been weaning himself down, currently smoking about 5 cigarettes daily. Nicotine replacement therapy available as needed. Discussed cessation on discharge. History of CAD with CABG and extensive stenting, hypertension, hyperlipidemia * Follows with [facility], last office visit in April. Hypertensive to the 160s to 170s systolic in the ED. Will continue home Plavix, statin, Lopressor, losartan, and nitrate. DVT prophylaxis: Lovenox CODE STATUS: Full code, verified Charges/Coding Visit Charges Inpatient E&M: 65561 Subs Hosp L2
[2025-09-10] MEDS: Lactobacillis Acidophilus 1 CAP PO (15:10)
[2025-09-11] VITALS (12 sets, daily range): BP systolic 129–155; BP diastolic 80–95; PULSE 62–92; RESP 14–20; TEMP 36.6–36.9; O2SAT 89–99
[2025-09-11] MEDS: Lactobacillis Acidophilus 1 CAP PO ×2 (06:31→22:51)
[2025-09-11] MEDS: Cefepime HCl 2 GM in 0.9% Normal Saline (100mL MB+) 100 ML IV ×3 (06:31→22:30)
[2025-09-11] MEDS: Potassium Chloride Oral Tablet 10 MEQ PO (09:42)
--- NOTE | 2025-09-11 09:51 | PN.ID_ITS ---
Physical Exam Narrative Feeling better, no fever, breathing improved, no n/v/d. Const alert and no apparent distress General Appearance: cooperative Resp normal air movement and clear to auscultation bilaterally Cardio regular rate and regular rhythm GI soft to palpation, non-tender and non-distended Skin no rashes or lesions noted ID ID: Route of nutrition/ use of supplements: [] Nutritional Intake: [] IV Site: [] Stone Catheter: [] Assessment & Plan Assessment/Plan (1) COPD exacerbation: PLAN: CTA chest did not show any focal infiltrate. Sputum cx with PsA, feeling better today. Had tendonopathy in the past with levaquin, so no po options for treating this pseudomonas. Expressed concern to him that infection may be incompletely treated, has only been on cefepime since 09/07. Would like to do 7 days total, stop date 09/13/25. Will write rx for 2 more days cefepime with midline. Will follow, d/w rn field case manager
--- NOTE | 2025-09-11 14:49 | PCM.PN.HOSP ---
Reason for Visit Chief Complaint: Worsening shortness of breath on exertion Objective Data Objective Data Vital Signs: Vital Signs Temp Pulse Resp BP Pulse Ox O2 Del Method O2 Flow Rate 98.4 F 70 18 148/80 H 99 Room Air 2 09/11/25 09:33 09/11/25 11:01 09/11/25 11:01 09/11/25 09:42 09/11/25 09:33 09/11/25 09:33 09/11/25 07:31 Oxygen Flow Rate (L/min) 2 Oxygen Delivery Method Room Air Weight: 174 lb 2.643 oz Body Mass Index (BMI) 27.6 Intake & Output: Intake and Output for Last 24 Hours 09/09/25 09/10/25 09/11/25 23:59 23:59 23:59 Intake Total 1100 / 1100 300 / 300 100 / 100 Balance 1100 / 1100 300 / 300 100 / 100 Lab / Micro Data 09/10/25 05:10 09/10/25 05:10 Micro: Microbiology 09/06/25 08:00 Sputum, Expectorated/Coughed Gram Stain - Final 09/06/25 08:00 Sputum, Expectorated/Coughed Respiratory Culture - Final Pseudomonas aeruginosa 09/05/25 12:13 Urine, Clean Catch Legionella Antigen - Final 09/05/25 12:13 Urine, Clean Catch Streptococcus pneumoniae Antigen (M - Final 09/05/25 12:04 Mucosa - Nose SARS-CoV-2, Influenza & RSV (PCR) - Final 09/04/25 21:48 Mucosa - Nasopharyngeal Respiratory Panel (PCR) - Final Physical Exam Narrative Seen and examined. Patient was seen by ID in the morning. Patient walked in the hallway and he said he did not get short of breath. Hypoxia is resolved. Patient follows Dr. Orellana for advanced COPD and he was sent by him for treatment of pneumonia. No chest pain. Physical exam General: Alert, Oriented x3, Cooperative. BMI 27.3 kg/m² HEENT: Atraumatic, PERRLA, EOMI, Normocephalic. Oral: No Gingival or Mucosal Lesions/ Ulcerations Neck: Supple, No JVD, Negative Carotid Bruits Chest wall/Lungs: Air entry diminished in bilateral lung bases. Lungs mostly clear sometimes intermittent rhonchi Cardiovascular: Regular rate and rhythm, Normal S1,S2, No M/G/R Abdomen: Bowel Sounds Present, Soft, Non Tender, Non-Distended : No dysuria. No renal angle tenderness. No suprapubic tenderness. Extremities: No edema, Capillary Refill Less than 3 Seconds Skin: No rashes, No breakdown Musculoskeletal: No Tenderness to Palpation of Joints or Extremities Neurological: Cranial nerves II-XII grossly intact, DTR 2+/4. No acute focal neurological deficit. Psych/Mental Status: Normal Affect, Appropriate. Assessment & Plan Assessment/Plan (1) COPD exacerbation: (2) Hypoxia: PLAN: Plan Patient is a 70-year-old male who presented to [facility] ED on 09/04/2025 with worsening shortness of breath on exertion. COPD exacerbation with hypoxia suspected due to Pseudomonas pneumonia On home 2 L nasal cannula at night only. Requiring 3 L nasal cannula at rest in the ED to maintain appropriate oxygen saturations. Follows with Dr. Orellana. Continue bronchodilators as well as IV steroids with methylprednisolone Respiratory panel negative, strep and legionella ag negative, COVID/infuenza/RSV negative. SCx pending. Mycoplasma IgG/IgM pending (combo test, but IgM more important given his failure to improve previously with steroids and abx. CTA chest no acute process. No PE. Emphysema. His electrical service technician is Dr. Orellana. He will follow up as outpt. Patient still with ongoing symptoms with no significant improvement. Though his workups been unremarkable, we will adjust his methylprednisolone to 4 times a day from 3 and add Augmentin. 09/08: Sputum culture from 09/06 positive for 3+ Pseudomonas, sensitivities pending. Earlier, switched from Augmentin to IV cefepime. Continue scheduled nebs and IV steroids 4 times daily. 09/08: Sputum culture positive for Pseudomonas though CT chest did not show any acute consolidation or infiltrate. Patient had tendinopathy in the past with Levaquin and currently not improving with IV cefepime. For now continue cefepime. Pulmonary consult requested 09/09: I called Dr. Orellana but has not seen the patient. Discussed with the ID. Does not want ECF placement or home IV antibiotic. Continue cefepime for 1-2 more days. Anticipate discharge tomorrow 09/10: Patient wanted to go home. Advised that he had antibiotic IV cefepime against Pseudomonas pneumonia started on 09/07 and had tendinitis with levofloxacin therefore there is no oral antibiotic against Pseudomonas. He will need IV antibiotic. Initially he did not want IV midline or IV antibiotic or go to care home to complete antibiotic duration but after the discussion with patient's and him in the room in afternoon he agreed to stay. Midline ordered. 09/11: ID recommended 7 days of IV cefepime started on 09/07 therefore stop date 09/13/2025. He wrote prescription for 2 more days of cefepime with midline. Patient stated that he does not want midline and would stay here to complete the antibiotic duration. Communicated to the correctional casework specialist. Nonsustained VT Electrolytes within normal limits. Echo 09/05 with EF 65%. Last echocardiogram was from September 2024 was EF was 60% (not 30% as I previously documented). Continue cardiac monitoring. Tobacco dependence Has been weaning himself down, currently smoking about 5 cigarettes daily. Nicotine replacement therapy available as needed. Discussed cessation on discharge. History of CAD with CABG and extensive stenting, hypertension, hyperlipidemia Follows with [place] [facility], last office visit in April. Hypertensive to the 160s to 170s systolic in the ED. Will continue home Plavix, statin, Lopressor, losartan, and nitrate. DVT prophylaxis: Lovenox CODE STATUS: Full code, verified Charges/Coding Visit Charges Inpatient E&M: 43095 Subs Hosp L2
--- NOTE | 2025-09-11 15:00 | CASEMGMT ---
TOMMIE ANNA updated by ID that patient will need 2 more days of IV ATBs, script received. TOMMIE ANNA called [facility] to inquire if they would see patient for 2 days of IV ATB, patient is independent. Per [facility] patient is not appropriate for [facility] as he is not home bound. IV ATB is for q 8 hours and unable to setup at outpatient infusion clinic. TOMMIE ANNA in to discuss with patient. Patient states he in not teachable, lives alone, and does not have a teachable person to help with IV ATB. TOMMIE ANNA discussed with hospitalist, PCU director, and CM director and patient to discharge home after IV ATB course completed. Patient planned for discharge on 09/13/25 when ATB completed. TOMMIE ANNA updated patient, patient denies further needs or concerns at discharge.
--- NOTE | 2025-09-11 21:43 | PCM.HOSP.N ---
Hospitalist Note Pt cont to c/o heartburn to mid esophageal area. He "blames it on the food here." He has Tums available, but last use was 2-3 days ago, and recently started Maalox tonight. He also stated that he struggles to swallow large pills. I ordered famotidine 40mg at HS, increased the pantoprazole 40mg to BID and placed a consult for Tianna
[2025-09-12] VITALS (9 sets, daily range): BP systolic 132–155; BP diastolic 69–87; PULSE 63–81; RESP 14–20; TEMP 36.4–36.7; O2SAT 93–99
[2025-09-12] MEDS: Lactobacillis Acidophilus 1 CAP PO ×2 (05:32→21:07)
[2025-09-12] MEDS: Cefepime HCl 2 GM in 0.9% Normal Saline (100mL MB+) 100 ML IV ×3 (05:32→21:09)
[2025-09-12] MEDS: Potassium Chloride Oral Tablet 10 MEQ PO (10:18)
--- NOTE | 2025-09-12 13:43 | PN.HOSP_ITS ---
Reason for Visit Chief Complaint: Worsening shortness of breath on exertion Objective Data Objective Data Vital Signs: Vital Signs Temp Pulse Resp BP Pulse Ox O2 Del Method O2 Flow Rate 97.5 F L 63 16 155/76 H 93 Room Air 2 09/12/25 10:16 09/12/25 11:13 09/12/25 11:13 09/12/25 10:18 09/12/25 11:13 09/12/25 11:13 09/12/25 07:05 Oxygen Flow Rate (L/min) 2 Oxygen Delivery Method Room Air Weight: 174 lb 2.643 oz Body Mass Index (BMI) 27.6 Intake & Output: Intake and Output for Last 24 Hours 09/10/25 09/11/25 09/12/25 23:59 23:59 23:59 Intake Total 300 / 300 300 / 300 100 / 100 Balance 300 / 300 300 / 300 100 / 100 Lab / Micro Data 09/10/25 05:10 09/10/25 05:10 Micro: Microbiology 09/06/25 08:00 Sputum, Expectorated/Coughed Gram Stain - Final 09/06/25 08:00 Sputum, Expectorated/Coughed Respiratory Culture - Final Pseudomonas aeruginosa 09/05/25 12:13 Urine, Clean Catch Legionella Antigen - Final 09/05/25 12:13 Urine, Clean Catch Streptococcus pneumoniae Antigen (M - Final 09/05/25 12:04 Mucosa - Nose SARS-CoV-2, Influenza & RSV (PCR) - Final 09/04/25 21:48 Mucosa - Nasopharyngeal Respiratory Panel (PCR) - Final Physical Exam Narrative Seen and examined. Patient complaining of burning sensation in the throat and sometimes to liquid to dysphagia to solid food. He denies retrosternal burning chest pain or gastritis like symptoms in the stomach or abdomen. Hypoxia is resolved. Patient follows Dr. Orellana for advanced COPD and he was sent by him for treatment of pneumonia. Physical exam General: Alert, Oriented x3, Cooperative. BMI 27.3 kg/m² HEENT: Atraumatic, PERRLA, EOMI, Normocephalic. Oral: No Gingival or Mucosal Lesions/ Ulcerations Neck: Supple, No JVD, Negative Carotid Bruits Chest wall/Lungs: Air entry diminished in bilateral lung bases. Lungs mostly clear sometimes intermittent rhonchi Cardiovascular: Regular rate and rhythm, Normal S1,S2, No M/G/R Abdomen: Bowel Sounds Present, Soft, Non Tender, Non-Distended : No dysuria. No renal angle tenderness. No suprapubic tenderness. Extremities: No edema, Capillary Refill Less than 3 Seconds Skin: No rashes, No breakdown Musculoskeletal: No Tenderness to Palpation of Joints or Extremities Neurological: Cranial nerves II-XII grossly intact, DTR 2+/4. No acute focal neurological deficit. Psych/Mental Status: Normal Affect, Appropriate. Assessment & Plan Assessment/Plan (1) COPD exacerbation: (2) Hypoxia: PLAN: Plan Patient is a 70-year-old male who presented to [facility] ED on 09/04/2025 with worsening shortness of breath on exertion. COPD exacerbation with hypoxia suspected due to Pseudomonas pneumonia * On home 2 L nasal cannula at night only. Requiring 3 L nasal cannula at rest in the ED to maintain appropriate oxygen saturations. Follows with Dr. Orellana. * Continue bronchodilators as well as IV steroids with methylprednisolone * Respiratory panel negative, strep and legionella ag negative, COVID/infuenza/RSV negative. SCx pending. Mycoplasma IgG/IgM pending (combo test, but IgM more important given his failure to improve previously with steroids and abx. * CTA chest no acute process. No PE. Emphysema. * His qa tech is Dr. Orellana. He will follow up as outpt. * Patient still with ongoing symptoms with no significant improvement. Though his workups been unremarkable, we will adjust his methylprednisolone to 4 times a day from 3 and add Augmentin. 09/08: Sputum culture from 09/06 positive for 3+ Pseudomonas, sensitivities pending. Earlier, switched from Augmentin to IV cefepime. Continue scheduled nebs and IV steroids 4 times daily. 09/08: Sputum culture positive for Pseudomonas though CT chest did not show any acute consolidation or infiltrate. Patient had tendinopathy in the past with Levaquin and currently not improving with IV cefepime. For now continue cefepime. Pulmonary consult requested 09/09: I called Dr. Orellana but has not seen the patient. Discussed with the ID. Does not want ECF placement or home IV antibiotic. Continue cefepime for 1-2 more days. Anticipate discharge tomorrow 09/10: Patient wanted to go home. Advised that he had antibiotic IV cefepime against Pseudomonas pneumonia started on 09/07 and had tendinitis with levofloxacin therefore there is no oral antibiotic against Pseudomonas. He will need IV antibiotic. Initially he did not want IV midline or IV antibiotic or go to long-term to complete antibiotic duration but after the discussion with patient's and him in the room in afternoon he agreed to stay. Midline ordered. 09/11: ID recommended 7 days of IV cefepime started on 09/07 therefore stop date 09/13/2025. He wrote prescription for 2 more days of cefepime with midline. Patient stated that he does not want midline and would stay here to complete the antibiotic duration. Communicated to the geriatric case manager. I4: Patient last date of antibiotic will be tomorrow 09/13/2025 and then discharged home Dysphagia to solid food mainly at the throat level/cervical pharyngeal level: A speech therapy evaluation ordered. On overall exam to support soft tiny ulcer found. Does not look like fungus/yeast infection. BMBx ordered. Patient was alerted by speech therapist. Her impression is dysphagia esophageal in nature with globus sensation. Reports regurgitation and emesis at times. Recommended GI consult outpatient. Diet changed to minced and moist. Meds crushed in applesauce and reflux precaution. Nonsustained VT * Electrolytes within normal limits. * Echo 09/05 with EF 65%. Last echocardiogram was from September 2024 was EF was 60% (not 30% as I previously documented). * Continue cardiac monitoring. Tobacco dependence * Has been weaning himself down, currently smoking about 5 cigarettes daily. Nicotine replacement therapy available as needed. Discussed cessation on discharge. History of CAD with CABG and extensive stenting, hypertension, hyperlipidemia * Follows with [facility], last office visit in April. Hypertensive to the 160s to 170s systolic in the ED. Will continue home Plavix, statin, Lopressor, losartan, and nitrate. DVT prophylaxis: Lovenox CODE STATUS: Full code, verified Charges/Coding Visit Charges Inpatient E&M: 74137 Subs Hosp L2
[2025-09-13] VITALS (7 sets, daily range): BP systolic 133–155; BP diastolic 63–89; PULSE 70–93; RESP 18–20; TEMP 36.4–36.6; O2SAT 89–99
[2025-09-13] MEDS: Cefepime HCl 2 GM in 0.9% Normal Saline (100mL MB+) 100 ML IV ×2 (05:46→10:22)
[2025-09-13] MEDS: 0.9% Saline Lock 10 ML Syringe IV (05:50)
[2025-09-13] MEDS: Lactobacillis Acidophilus 1 CAP PO (05:50)
--- NOTE | 2025-09-13 09:17 | DCINST_ITS ---
Discharge Instructions DC O2, CPAP, BIPAP needs Home O2 Discharge instructions: No Dressing / Incision Discharge Activity: Return to Normal Activity Weight Bearing Status: Weight bearing as tolerated Dressing / Incision Call your doctor if you observe: Fever of 101 or Higher, Coldness, Increased Pain, Numbness or Tingling, Change in Color, Inability to urinate, Inability to have a bowel movement, Shortness of breath, Dizziness, Fainting spells, Swelling in the ankles, Chest pain, Prolonged hiccupping, Increased palpitations (irregular heartbeat) and Calf discomfort Follow Up Care When: IN 2 WEEKS Test Results: Test results from this visit will be discussed in further detail at your follow- up appointment, if applicable. Discharge Plan Admission Admit Date/Time: 09/04/25 18:34 Attending Provider: Mike Loya Primary Care Provider: George Vázquez Consulting Providers: Vicente Andrews; Salvador Brewer; Neptali Hinojosa; Neptali Orellana V Discharge Orders/Prescriptions Prescriptions: New prednisone 20 mg tablet 40 mg PO DAILY 5 Days Qty: 10 0RF dextromethorphan-guaifenesin [Mucinex DM] 60-1,200 mg tablet extended release 12 hr 1 tab PO Q12H 7 Days Qty: 14 0RF Continued clopidogrel [Plavix] 75 mg tablet 75 mg PO DAILY Qty: 90 4RF budesonide-formoterol [Symbicort] 160-4.5 mcg/actuation HFA aerosol inhaler 2 puff inhalation BID Qty: 3 3RF Rx Instructions: administer with spacer, rinse mouth after each use albuterol sulfate 90 mcg/actuation HFA aerosol inhaler 2 puff INHALATION Q6H PRN PRN (Reason: Shortness Of Breath) Qty: 8.5 11RF metoprolol tartrate 50 mg tablet 50 mg PO BID Qty: 180 3RF potassium chloride 10 mEq capsule, extended release 10 meq PO QDAY losartan 50 mg tablet 50 mg PO QPM Qty: 30 11RF tramadol 50 mg tablet 50 mg PO Q8 PRN (Reason: pain) (DME) OXYGEN - Supplemental ([facility] USE ONLY) Gas See Rx Instructions .ROUTE Patient Comments: 2L QHS Rx Instructions: As directed isosorbide mononitrate 30 mg tablet extended release 24 hr 30 mg PO DAILY Qty: 90 3RF ipratropium-albuterol 0.5 mg-3 mg(2.5 mg base)/3 mL solution for nebulization 3 ml continuous nebulization Q6H PRN (Reason: shortness of breath or wheezing) Qty: 180 11RF furosemide 40 mg tablet 20 mg PO QAM PRN rosuvastatin 40 mg tablet 40 mg PO QHS Qty: 90 3RF Referrals / Follow Up: Neptali Orellana MD [Med Staff - Active Staff, Pulmonary Medicine] - Within 2 Weeks George Vázquez MD [Primary Care Provider, Internal Medicine] - 09/16/25 9:00 am Disposition Disposition (needs filled in before D/C Order can be placed): Home, Self Care
--- NOTE | 2025-09-13 09:21 | DS.PCM_ITS ---
Providers Date of Admission: 09/04/25 Date of Discharge: 09/13/25 Primary Care Physician: Dr. George Vázquez MD Consultations 09/08/25 09:43 Consult: Infectious Disease Routine Consulting Provider: Neptali Hinojosa Reason for Consult: Psuedomonas pneumonia, advnaced COPD EMERGENT Consult: No Notified: Yes Date Notified: 09/08/25 Time Notified: 09:44 Method of Notification: Text 09/08/25 16:02 Consult: Office Machine Servicer / Pulmonary Medicine Routine Consulting Provider: Neptali Orellana V Reason for Consult: acute on chr resp failure EMERGENT Consult: No Notified: Yes Date Notified: 09/08/25 Time Notified: 16:02 Method of Notification: Verbal Reason For Visit: COPD EXACERBATION W/ACUTE ON CHRONIC HYPOXIS Diagnosis Discharge Diagnosis (1) COPD exacerbation: Status: Chronic Code(s): J44.1 - Chronic obstructive pulmonary disease with (acute) exacerbation (2) Hypoxia: Status: Acute Code(s): R09.02 - Hypoxemia Plan Patient is a 70-year-old male who presented to [facility] ED on 09/04/2025 with worsening shortness of breath on exertion. COPD exacerbation with hypoxia suspected due to Pseudomonas pneumonia * On home 2 L nasal cannula at night only. Requiring 3 L nasal cannula at rest in the ED to maintain appropriate oxygen saturations. Follows with Dr. Orellana. * Continue bronchodilators as well as IV steroids with methylprednisolone * Respiratory panel negative, strep and legionella ag negative, COVID/infuenza/RSV negative. SCx pending. Mycoplasma IgG/IgM pending (combo test, but IgM more important given his failure to improve previously with steroids and abx. * CTA chest no acute process. No PE. Emphysema. * His die tripper is Dr. Orellana. He will follow up as outpt. * Patient still with ongoing symptoms with no significant improvement. Though his workups been unremarkable, we will adjust his methylprednisolone to 4 times a day from 3 and add Augmentin. 09/08: Sputum culture from 09/06 positive for 3+ Pseudomonas, sensitivities pending. Earlier, switched from Augmentin to IV cefepime. Continue scheduled nebs and IV steroids 4 times daily. 09/08: Sputum culture positive for Pseudomonas though CT chest did not show any acute consolidation or infiltrate. Patient had tendinopathy in the past with Levaquin and currently not improving with IV cefepime. For now continue cefepime. Pulmonary consult requested 09/09: I called Dr. Orellana but has not seen the patient. Discussed with the ID. Does not want ECF placement or home IV antibiotic. Continue cefepime for 1-2 more days. Anticipate discharge tomorrow 09/10: Patient wanted to go home. Advised that he had antibiotic IV cefepime against Pseudomonas pneumonia started on 09/07 and had tendinitis with levofloxacin therefore there is no oral antibiotic against Pseudomonas. He will need IV antibiotic. Initially he did not want IV midline or IV antibiotic or go to prison to complete antibiotic duration but after the discussion with patient's and him in the room in afternoon he agreed to stay. Midline ordered. 09/11: ID recommended 7 days of IV cefepime started on 09/07 therefore stop date 09/13/2025. He wrote prescription for 2 more days of cefepime with midline. Patient stated that he does not want midline and would stay here to complete the antibiotic duration. Communicated to the piano case and bench assembler. I4: Patient last date of antibiotic will be tomorrow 09/13/2025 and then discharged home 09/13: Patient completed antibiotic today therefore discharged on prednisone burst therapy, Mucinex DM. Advised to follow-up for with his primary die tripper Dr. Neptali Orellana. Follow-up PCP Dysphagia to solid food mainly at the throat level/cervical pharyngeal level: A speech therapy evaluation ordered. On overall exam to support soft tiny ulcer found. Does not look like fungus/yeast infection. BMBx ordered. Patient was alerted by speech therapist. Her impression is dysphagia esophageal in nature with globus sensation. Reports regurgitation and emesis at times. Recommended GI consult outpatient. Diet changed to minced and moist. Meds crushed in applesauce and reflux precaution. 09/13: Esophageal dysphagia: Advised follow-up with the GI in the outpatient. Nonsustained VT * Electrolytes within normal limits. * Echo 09/05 with EF 65%. Last echocardiogram was from September 2024 was EF was 60% (not 30% as I previously documented). * Continue cardiac monitoring. 07/14: No significant cardiac issues during the hospital course. Tobacco dependence * Has been weaning himself down, currently smoking about 5 cigarettes daily. Nicotine replacement therapy available as needed. Discussed cessation on discharge. History of CAD with CABG and extensive stenting, hypertension, hyperlipidemia * Follows with [facility], last office visit in April. Hypertensive to the 160s to 170s systolic in the ED. Will continue home Plavix, statin, Lopressor, losartan, and nitrate. DVT prophylaxis: Lovenox CODE STATUS: Full code, verified Discharge medication reconciliation done. Discharge follow-up instructions completed. Discharge process discussed with the patient and all questions were answered to patient's satisfaction. Follow with PCP in 1 to 2 weeks Total time spent, exact 35 minutes on discharge meds reconciliation, examination, coordination of care with nurses and ancillary staff, review of imaging and blood test and discussion with the patient on follow-up instructions. Medications at Discharge Home Medications clopidogrel 75 mg tablet (Plavix) 75 mg PO DAILY anti platelet #90 tabs 10/04/21 albuterol sulfate 90 mcg/actuation aerosol inhaler 2 puff inhalation Q6H PRN PRN Shortness Of Breath #8.5 grams 07/30/24 budesonide-formoterol HFA 160 mcg-4.5 mcg/actuation aerosol inhaler (Symbicort) 2 puff inhalation BID #3 ea 07/30/24 isosorbide mononitrate 30 mg tablet,extended release 24 hr 30 mg PO DAILY #90 TABLETS 09/09/24 ipratropium 0.5 mg-albuterol 3 mg (2.5 mg base)/3 mL nebulization soln 3 ml continuous nebulization Q6H PRN shortness of breath or wheezing #180 mL 09/10/24 metoprolol tartrate 50 mg tablet 50 mg PO BID #180 tabs 11/05/24 losartan 50 mg tablet 50 mg PO QPM #30 tabs 01/08/25 furosemide 40 mg tablet 20 mg PO QAM PRN 05/05/25 potassium chloride 10 mEq capsule,extended release 10 meq PO QDAY 05/05/25 rosuvastatin 40 mg tablet 40 mg PO QHS #90 tabs 07/14/25 tramadol 50 mg tablet 50 mg PO Q8 PRN pain 07/21/25 OXYGEN - Supplemental ([facility] INFORMATIONAL USE ONLY) 09/05/25 dextromethorphan-guaifenesin ER 60 mg-1,200 mg tab,extend release,12hr (Mucinex DM) 1 tab PO Q12H 7 days #14 tabs 09/10/25 prednisone 20 mg tablet 40 mg (2 x 20 mg) PO DAILY 5 days #10 tabs 09/10/25 Physical Exam Narrative Seen and examined. Patient completed antibiotic today in afternoon total 7 days of IV cefepime. No chest pain or shortness of breath. Speech therapist recommended follow-up with the GI. Hypoxia is resolved. Patient follows Dr. Orellana for advanced COPD and he was sent by him for treatment of pneumonia. Physical exam General: Alert, Oriented x3, Cooperative. BMI 27.3 kg/m² HEENT: Atraumatic, PERRLA, EOMI, Normocephalic. Oral: No Gingival or Mucosal Lesions/ Ulcerations Neck: Supple, No JVD, Negative Carotid Bruits Chest wall/Lungs: Air entry diminished in bilateral lung bases. Lungs occasional intermittent rhonchi. Cardiovascular: Regular rate and rhythm, Normal S1,S2, No M/G/R Abdomen: Bowel Sounds Present, Soft, Non Tender, Non-Distended : No dysuria. No renal angle tenderness. No suprapubic tenderness. Extremities: No edema, Capillary Refill Less than 3 Seconds Skin: No rashes, No breakdown Musculoskeletal: No Tenderness to Palpation of Joints or Extremities Neurological: Cranial nerves II-XII grossly intact, DTR 2+/4. No acute focal neurological deficit. Psych/Mental Status: Normal Affect, Appropriate. Weight / BMI Weight Weight: 174 lb 2.643 oz Body Mass Index (BMI) 27.6 ABG / Lab / Microbiology Data 09/10/25 05:10 09/10/25 05:10 Microbiology: Microbiology 09/06/25 08:00 Sputum, Expectorated/Coughed Gram Stain - Final 09/06/25 08:00 Sputum, Expectorated/Coughed Respiratory Culture - Final Pseudomonas aeruginosa 09/05/25 12:13 Urine, Clean Catch Legionella Antigen - Final 09/05/25 12:13 Urine, Clean Catch Streptococcus pneumoniae Antigen (M - Final 09/05/25 12:04 Mucosa - Nose SARS-CoV-2, Influenza & RSV (PCR) - Final 09/04/25 21:48 Mucosa - Nasopharyngeal Respiratory Panel (PCR) - Final D/C Instructions Weight Bearing Status: Weight bearing as tolerated Call your doctor if you observe: Fever of 101 or Higher, Coldness, Increased Pain, Numbness or Tingling, Change in Color, Inability to urinate, Inability to have a bowel movement, Shortness of breath, Dizziness, Fainting spells, Swelling in the ankles, Chest pain, Prolonged hiccupping, Increased palpitations (irregular heartbeat) and Calf discomfort DC O2, CPAP, BIPAP Needs Home O2 Discharge instructions: No When: IN 2 WEEKS Meaningful Use Info Meaningful Use Meaningful Use Diagnoses (Choose all that apply): None applicable Discharge Plan Admission Admit Date/Time: 09/04/25 18:34 Attending Provider: Mike Loya Primary Care Provider: George Vázquez Consulting Providers: Vicente Andrews; Salvador Brewer; Neptali Hinojosa; Neptali Orellana V Discharge Orders/Prescriptions Prescriptions: New prednisone 20 mg tablet 40 mg PO DAILY 5 Days Qty: 10 0RF dextromethorphan-guaifenesin [Mucinex DM] 60-1,200 mg tablet extended release 12 hr 1 tab PO Q12H 7 Days Qty: 14 0RF Continued clopidogrel [Plavix] 75 mg tablet 75 mg PO DAILY Qty: 90 4RF budesonide-formoterol [Symbicort] 160-4.5 mcg/actuation HFA aerosol inhaler 2 puff inhalation BID Qty: 3 3RF Rx Instructions: administer with spacer, rinse mouth after each use albuterol sulfate 90 mcg/actuation HFA aerosol inhaler 2 puff INHALATION Q6H PRN PRN (Reason: Shortness Of Breath) Qty: 8.5 11RF metoprolol tartrate 50 mg tablet 50 mg PO BID Qty: 180 3RF potassium chloride 10 mEq capsule, extended release 10 meq PO QDAY losartan 50 mg tablet 50 mg PO QPM Qty: 30 11RF tramadol 50 mg tablet 50 mg PO Q8 PRN (Reason: pain) (DME) OXYGEN - Supplemental ([facility] INFORMATIONAL USE ONLY) Gas See Rx Instructions .ROUTE Patient Comments: 2L QHS Rx Instructions: As directed isosorbide mononitrate 30 mg tablet extended release 24 hr 30 mg PO DAILY Qty: 90 3RF ipratropium-albuterol 0.5 mg-3 mg(2.5 mg base)/3 mL solution for nebulization 3 ml continuous nebulization Q6H PRN (Reason: shortness of breath or wheezing) Qty: 180 11RF furosemide 40 mg tablet 20 mg PO QAM PRN rosuvastatin 40 mg tablet 40 mg PO QHS Qty: 90 3RF Referrals / Follow Up: Aleksey Javier DO [Med Staff - Active Staff, Gastroenterology] - Within 2 Weeks Referral Note: intermittent dysphagia Neptali Orellana MD [Med Staff - Active Staff, Pulmonary Medicine] - Within 2 Weeks George Vázquez MD [Primary Care Provider, Internal Medicine] - 09/16/25 9:00 am Disposition Disposition (needs filled in before D/C Order can be placed): Home, Self Care Charges/Coding Visit Charges Inpatient E&M: 95860 Disch Hosp >30min
== END 2025-09-13 11:25 | disposition home or self-care (01) | DRG 190 ==
LOC: ED 17:52 → PCU 18:44
PROVIDERS: Admitting Provider Hospitalist; Emergency Provider Emergency Medicine; PCP Internal Medicine; Visit Provider Internal Medicine
DX: J44.1 Chronic obstructive pulmonary disease with (acute) exacerbation (principal); J15.1 Pneumonia due to Pseudomonas; I47.20 Ventricular tachycardia, unspecified; Z99.81 Dependence on supplemental oxygen; J44.0 Chronic obstructive pulmonary disease with (acute) lower respiratory infection; I10 Essential (primary) hypertension; E78.00 Pure hypercholesterolemia, unspecified; I25.10 Atherosclerotic heart disease of native coronary artery without angina pectoris; F17.210 Nicotine dependence, cigarettes, uncomplicated; R12 Heartburn; Z95.5 Presence of coronary angioplasty implant and graft; Z79.02 Long term (current) use of antithrombotics/antiplatelets; Z79.899 Other long term (current) drug therapy; Z79.51 Long term (current) use of inhaled steroids; R09.02 Hypoxemia; Z90.49 Acquired absence of other specified parts of digestive tract; Z98.41 Cataract extraction status, right eye; Z98.42 Cataract extraction status, left eye; Z96.652 Presence of left artificial knee joint; R13.10 Dysphagia, unspecified
CPT/HCPCS: 36415; 71046; 71275; 80048; 83880; 84145; 85025; 85027; 86738; 87070; 87077; 87184; 87186; 87205; 87449; 87631; 87633; 92610; 93005; 93306; 94640; 94668; 99285; 99406; Q9967; A4216

== ENCOUNTER 2025-09-21 11:34 | Emergency (ER) | payer MEDICARE, OTHER, SELFPAY ==
[2022-02-14 13:29] VITALS: BMI 28.4
[2025-09-21] VITALS (12 sets, daily range): BP systolic 119–159; BP diastolic 79–98; PULSE 74–115; RESP 16–24; TEMP 36.4–36.6; O2SAT 95–98; BMI 27.4
--- NOTE | 2025-09-21 11:59 | RAD_ITS ---
PROCEDURE: CHEST PA AND LATERAL 09/21/2025 REASON FOR EXAM: SHORTNESS OF BREATH, RECENT PNEUMONIA TECHNIQUE: Procedure Code: RADCXR Modality: DX Procedure: CHEST PA AND LATERAL COMPARISON: 09/04/2025. FINDINGS: The heart is enlarged. Prior sternotomy. Surgical clips in the mediastinum. Trace bilateral pleural effusions. The lungs are hyperaerated suggestive of COPD. Mild cephalization of the pulmonary vessels suggestive of pulmonary vascular congestion. RAD/Chest PA and Lateral IMPRESSION: Cardiomegaly with mild pulmonary vascular congestion, which may represent early pulmonary edema. Trace bilateral pleural effusions. Hyperaerated lungs consistent with underlying COPD. Reading Location: [id number]
--- NOTE | 2025-09-21 11:59 | EKG12_ITS ---
Test Reason : sob Blood Pressure : */* mmHG Vent. Rate : 111 BPM Atrial Rate : 111 BPM P-R Int : 122 ms QRS Dur : 126 ms QT Int : 338 ms P-R-T Axes : 65 -71 72 degrees QTcB Int : 459 ms Sinus tachycardia Left axis deviation Right bundle branch block Abnormal ECG Confirmed by BHUPINDER LOPEZ, KARON ([id number]), production editor REBEL PRICE ([id number]) on 09/22/2025 1:08:23 PM Referred By: Dave/areli Confirmed By: KARON ROE MD
[2025-09-21 12:18] LABS: Hematocrit 43.8 % (40-54); Hemoglobin 15.4 g/dL (13.0-16.5); Immature Granulocytes Count 0.070 X10^3/uL (0.0-0.0); Mean Corp Hgb Conc 35.2 g/dL (32-36); Mean Corpuscular Volume 100.5 fL (80-94); Mean Platelet Vol. 9.5 fl (6.2-12.0); NRBC Flagged by Analyzer 0 % (0-5); Platelet Count 135 K/mm3 (150-450); RBC Distribution Width CV 14.7 % (11.6-14.6); RBC Distribution Width SD 55.0 fl (35.1-43.9); Red Blood Count 4.36 M/mm3 (4.6-6.2); White Blood Count 11.0 K/mm3 (4.4-11.0)
[2025-09-21 12:27] LABS: D-Dimer Quantitative (DVT/PE) 1.74 FEU/ug/m (0.27-0.49)
--- OUTSIDE RECORDS SUMMARY | 2025-09-21 12:28 | XMS RPT_ITS | CCD ---
Author Organization [facility] Care Team Providers Care Laboratory Assistant Name Role Phone PARAG, DARI Hunt Attending Unavailable PARAG, DARI Hunt Primary Care Unavailable PARAG, DARI Hunt Admitting Unavailable PARAG, DARI Hunt Attending Unavailable PARAG, DARI Hunt Primary Care Unavailable PARAG, DARI Hunt Admitting Unavailable George Vázquez MD Primary Care Provider Darlyn RN, Josh Champagne Unavailable Unavailabl marilee Ulrich MD, Juventino Garvey Unavailable Dr. George Vázquez Primary Care Provider Dr. Mark Giles Attending Provider Dr. Mark Giles Referring Provider Dr. Mark Giles Other Provider Maru DURAN, PA Amada Champagne Other Provider Dr. Mendy Latham Admit Provider Dr. George Vázquez Referring Provider Christophe CAUL FAT PULLER, CAUL FAT PULLER-C Daniel Montes Attending Provider Dr. George Vázquez Primary Care Provider Dr. George Vázquez Referring Provider Dr. Mark Giles Attending Provider Armando ELENA, CAUL FAT PULLER-C Radha Attending Provider Dr. George Vázquez Primary Care Provider Dr. George Vázquez Referring Provider Christophe CAUL FAT PULLER, CAUL FAT PULLER-C Daniel Montes Attending Provider Dr. Farooq Hall Attending Provider Dr. Farooq Hall Referring Provider George Vázquez MD Primary Care Provider Darlyn REILLY, Josh Champagne Unavailable Sandoval Ulrich MD, Juventino Garvey [...] Dr. Farooq Hall Referring Provider Daphne ELENA, CAUL FAT PULLER-C Cristiane Champagne Attending Provider MD Pablo Whitney Emergency Provider Dr. Judy Henriquez Admit Provider Dr. Judy Henriquez Other Provider Dr. Ling Betancur Attending Provider Dr. Ling Betancur Other Provider Dr. George Vázquez Primary Care Provider Dr. George Vázquez Referring Provider Dr. Becky Corbin Attending Provider Dr. Tomy Hanks Attending Provider Dr. Becky Corbin Referring Provider Armando CAUL FAT PULLER, CAUL FAT PULLER-C Radha Attending Provider Dr. Becky Corbin Other Provider Dr. Salvador Palafox Referring Provider Dr. George Vázquez Primary Care Provider Dr. George Vázquez Referring Provider Daphne ELENA, CAUL FAT PULLER-C Cristiane Champagne Attending Provider MD Pablo Whitney Emergency Provider Dr. Judy eHnriquez Admit Provider Dr. Judy Henriquez Other Provider Dr. Ling Betancur Attending Provider Dr. Ling Betancur Other Provider Dr. Becky Corbin Attending Provider Dr. Tomy Hanks Attending Provider Dr. Bceky Corbin Referring Provider Armando CAUL FAT PULLER, CAUL FAT PULLER-C Radha Attending Provider Dr. Becky Corbin Other Provider Dr. Salvador Palafox Referring Provider Dr. Mark Giles Attending Provider Dr. Aleksey Javier Attending Provider Dr. Aleksey Javier Other Provider Dr. George Vázquez Primary Care Provider Dr. George Vázquez Referring Provider Dr. Becky Corbin Attending Provider Daphne CAUL FAT PULLER, CAUL FAT PULLER-C Cristiane Champagne Attending Provider [phone] Armando CAUL FAT PULLER, CAUL FAT PULLER-C Radha Attending Provider Dr. George Vázquez Primary Care Provider Dr. George Vázquez Referring Provider RENEE Joseph Attending Provider Dr. Aleksey Javier Attending Provider Armando CAUL FAT PULLER, CAUL FAT PULLER-C Radha Referring Provider [phone] Armando CAUL FAT PULLER, CAUL FAT PULLER-C Radha Other Provider Dr. Tevin Nelson Attending Provider RENEE Joseph Referring Provider RENEE Joseph Other Provider Dr. Kal Bartholomew Attending Provider [phone] Dr. George Vázquez Primary Care Provider Dr. George Vázquez Referring Provider Armando ELENA, ULICES-C Radha Attending Provider Josh REILLY, Darlyn Champagne Unavailable [facility] marilee Ulrich MD, [facility] Unavailable Dr. George Vázquez Primary Care Provider Dr. George Vázquez Referring Provider RENEE Joseph Attending Provider RENEE Patino Attending Provider [phone] Armando ELENA, ULICES-C Radha Attending Provider RENEE Patino Attending Provider Dr. George Vázquez Primary Care Provider Dr. George Vázquez Referring Provider Dr. George Vázquez Primary Care Provider Dr. George Vázquez Referring Provider Maru DURAN, RENEE Champagne Attending Provider Dr. Farooq Hall Attending Provider Dr. Kal Bartholomew Attending Provider George Vázquez MD Primary Care Provider Alban MELT SUPERVISOR.ELEVATOR STARTER, Blanca M Unavailable Gurpreet LOPEZ, Dr. Vazquez Primary Care Provider Chidi LOPEZ, Dr. Singh Attending Provider [phone] Chidi LOPEZ, Dr. Singh Emergency Provider Dr. Praveen Ruiz DO Emergency Provider Darryl GAY, Dr. Zhang Attending Provider Darryl GAY, Dr. Zhang Admit Provider Latonya LOPEZ, Dr. Huitron Attending Provider Dr. Vicente Andrews DO Other Provider Armando CAUL FAT PULLER-C, Radha Attending Provider Armando CAUL FAT PULLER-C, Radha Referring Provider Dr. George Vázquez MD Referring Provider Dr. Carrillo Malave MD Attending Provider Dr. Carrillo Malave MD Other Provider Armando CAUL FAT PULLER-C, Radha Other Provider [phone] Tevin Nelson DO Attending Provider Dr. Carirllo Malave MD Referring Provider Reyna LOPEZ, Dr. Neptali Anderson Other Provider Dr. Neptali Orellana MD, V Attending Provider Dr. Neptali Orellana MD, V Referring Provider Dr. George Vázquez MD Primary Care Provider Bhupendra Bae Attending Provider Bhupendra Bae Referring Provider Sundar LOPEZ, Dr. Franco Attending Provider [phone] Gurpreet LOPEZ, Dr. Vazquez Primary Care Provider Gurpreet LOPEZ, Dr. Vazquez Referring Provider Ananda LOPEZ, Dr. Vizcaino Attending Provider Ananda LOPEZ, Dr. Vizcaino Referring Provider Reyna LOPEZ, Dr. Neptali Anderson Attending Provider Reyna LOPEZ, Dr. Neptali Anderson Referring Provider Christophe CAUL FAT PULLER-C, Daniel Montes Attending Provider Gurpreet LOPEZ, Dr. Vazquez Primary Care Provider Bhupendra Bae Attending Provider Bhupendra Bae Referring Provider Gurpreet LOPEZ, Dr. Vazquez Referring Provider Armando CAUL FAT PULLER-C, Radha Attending Provider Armando CAUL FAT PULLER-C, Radha Referring Provider Gurpreet LOPEZ, Dr. Vazquez Primary Care Physician Bhupendra Bae Attending Physician [phone] Christophe CAUL FAT PULLER-C, Daniel Montes Attending Physician [phone] Armando CAUL FAT PULLER-C, Radha Attending Physician Dr. Michael Narayan DO Attending Physician [phone] Dr. Michael Narayan DO Referring Provider GEORGE VÁZQUEZ Primary Care Unavailable GURPREET, GEORGE Montes Primary Care Unavailable GEORGE VÁZQUEZ Attending Unavailable GURPREET, GEORGE Montes Primary Care Unavailable GURPREET, GEORGE Montes Referring Unavailable GURPREET, GEORGE Montes Primary Care Unavailable GURPREET, GEORGE Montes Attending Unavailable GURPREET, GEORGE Montes Primary Care Unavailable GURPREET, GEORGE Montes Referring Unavailable GURPREET, GEORGE Montes Primary Care Unavailable GEORGE VÁZQUEZ Attending Unavailable GURPREET, GEORGE Montes Primary Care Unavailable GURPREET, GEORGE Montes Primary Care Unavailable PRATEEK MATOS Attending Unavailable VÁZQUEZ, ROSALIA Primary Care Unavailable PRATEEK MATOS Referring Unavailable BLANCA TILLEY Attending Unavailable VÁZQUEZ, ROSALIA Primary Care Unavailable BLANCA TILLEY Referring Unavailable VÁZQUEZ, ROSALIA Primary Care Unavailable LOW BRYANT Attending Unavailable VÁZQUEZ, ROSALIA Primary Care Unavailable LOW BRYANT Referring Unavailable VÁZQUEZ, ROSALIA Primary Care Unavailable VÁZQUEZ, ROSALIA Referring Unavailable VÁZQUEZ, ROSALIA Primary Care Unavailable SARITHA GREENWOOD Attending Unavailable Roberts CAUL FAT PULLER, Radha Attending Unavailable Roberts CAUL FAT PULLER, Radha Referring Unavailable Vázquez, George Primary Care Unavailable Bhupendra Asif Attending Unavailable Bhupendra Asif Referring Unavailable Vázquez, George Primary Care Unavailable Sibilia, Neptali V Attending Unavailable Sibilia, Neptali V Referring Unavailable Vázquez, George Primary Care Unavailable Carrillo Malave Consulting Unavailable Armando CAUL FAT PULLER, Radha Attending Unavailable Roberts CAUL FAT PULLER, Radha Referring Unavailable Vázquez, George Primary Care Unavailable Sibilia, Neptali V Attending Unavailable Vázquez, George Primary Care Unavailable Michael Narayan Attending Unavailable Michael Narayan Referring Unavailable Vázquez, George Primary Care Unavailable Vicente Andrews Attending Unavailable Vicente Andrews Admitting Unavailable Vázquez, George Primary Care Unavailable Tomy Hanks Attending Unavailable Vázquez, George Primary Care Unavailable Vicente Andrews Admitting Unavailable Vicente Andrews Consulting Unavailable Salvador Brewer Attending Unavailable Vázquez, George Primary Care Unavailable Salvador Brewer Consulting Unavailable Vicente Andrews Attending Unavailable Mike Loya Attending Unavailable Neptali Hinojosa Consulting Unavailable Sibilia, Neptali V Consulting Unavailable Vincenzo Mike Consulting Unavailable Francisco Murillo Attending Unavailable Vázquez, George Primary Care Unavailable Sibilia, Neptali V Attending Unavailable Sibilia, Neptali V Referring Unavailable Vázquez, George Primary Care Unavailable Carrillo Malave Referring Unavailable Carrillo Malave Attending Unavailable Vázquez, George Primary Care Unavailable Roberts CAUL FAT PULLER, Radha Attending Unavailable Roberts CAUL FAT PULLER, Radha Referring Unavailable Vázquez, George Primary Care Unavailable Tevin Nelson Attending Unavailable Carrillo Malave Consulting Unavailable Roberts CAUL FAT PULLER, Radha Referring Unavailable Vázquez, George Primary Care Unavailable Roberts CAUL FAT PULLER, Radha Consulting Unavailable Vicente Andrews Attending Unavailable Vicente Andrews Admitting Unavailable Vicente Andrews Consulting Unavailable Vázquez, George Primary Care Unavailable Vicente Andrews Attending Unavailable Vázquez, George Primary Care Unavailable Ananda, Carrillo Attending Unavailable Vázquez, George Primary Care Unavailable Vázquez, George Referring Unavailable Ananda, Carrillo Attending Unavailable Ananda, Carrillo Referring Unavailable Neptali Orellana V Consulting Unavailable Vázquez, Goerge Primary Care Unavailable Christophe ELENA, Daniel Montes Attending Unavailable Vázquez, George Referring Unavailable Vázquez, George Primary Care Unavailable Ananda, Carrillo Attending Unavailable Vázquez, George Primary Care Unavailable Vázquez, George Referring Unavailable Bhupendra Asif Attending Unavailable Vázquez, George Primary Care Unavailable Vázquez, George Referring Unavailable Ananda, Carrillo Attending Unavailable Vázquez, George Primary Care Unavailable Vázquez, George Referring Unavailable Michael Narayan Attending Unavailable Vázquez, George Primary Care Unavailable Vázquez, George Referring Unavailable Ad Enamorado Attending Unavailable Vázquez, George Primary Care Unavailable Laya, Bhupendra Referring Unavailable Salvador Kwok Attending Unavailable Vázquez, George Primary Care Unavailable Carrillo Malave Attending Unavailable Ananda, Carrillo Referring Unavailable Vázquez, George Primary Care Unavailable AngeliterBhupendra Referring Unavailable Angeliter, Bhupendra Attending Unavailable Vázquez, George Primary Care Unavailable Allergies Allergy Classification Reported Allergen(s) Allergy Type Date of Onset Reaction(s) Facility (20 sources) levoFLOXacin; Translations: [LEVOFLOXACIN] Drug Allergy 0 Other: See Comments [facility] Work Phone: Comment on above: Achilles (1 source) levoFLOXacin Drug Allergy 5 [facility] Repository Medications Current Medications Medication Drug Class(es) Dates Sig (Normalized) Sig (Original) acetaminophen 325 mg / HYDROcodone bitartrate 5 mg oral tablet (4 sources) Opioid Agonist Start: 07-13-2022 take 1 tablet by mouth every six hours Hydrocodone-Acetam inophen Active 1 TABLET PO EVERY 6 HOURS 12 3 July 13, 2022 [id number] 200 actuat albuterol 0.09 mg/actuat metered dose [...] after each use Start: 03-07-2022 End: 04-07-2023 Budesonide-Formoterol (Symbi fawad) 160-4.5 mcg/actuation HFA aerosol [...] Start: 03-07-2022 take 1 puff(s) by mo [facility] twice daily Budesonide-Formoterol (Symbicort) 160-4.5 mcg/actuation HFA aerosol inhaler Active 2 PUFF INHALATION TWICE A DAY March 06, 2022 11:00pm administer with spacer, rinse mouth after each use Start: 03-07-2022 take 1 puff(s) by mo [facility] twice daily Budesonide-Formoterol (Symbicort) 160-4.5 mcg/actuation HFA [...] tablet 09/04/2024 09/14/2024 Active Start: 03-13-2023 End: 06-13-2023 take 1 tablet by mouth twice daily [...] tablet Discontinued 40 mg PO DAILY 90 June 18, 2024 8:07am January 06, 2025 [...] oral tablet (20 sources) Angiotensin 2 Receptor Bessie Start: 5 take 1 tablet by mouth [...] 50 mg oral tablet (20 sources) beta-Adrenergic Bessie Start: 11-05-2024 take 1 tablet by mouth [...] 50 mg PO TWICE A DAY 180 April 27, 2023 9:20am June 19, 2023 2:47pm Start: 04-23-2018 End: 01-18-2022 take 1 tablet by mouth twice daily Metoprolol Tartrate 50 mg tablet Discontinued 50 mg PO TWICE A DAY 180 September 30, 2019 3:45pm January 18, 2022 3:05pm Comment on above: Take 1 tablet by bianka th twice daily. molnupiravir 200 mg capsule (1 source) Start: End: 09-11-2 022 take 4 capsules by mouth twice daily [...] PATCH daily for 14 days transdermal nystatin [id number] unt/ml oral suspension (20 sources) Polyene Antifungal [...] Take 1 tablet by bianka once daily. Take 20 mEq by mouth once daily. Take 1 capsule by mo [facility] twice daily. predniSONE 20 mg oral tablet [...] tablet Discontinued 40 mg PO DAILY 20 September 17, 2024 1:00am October 27, 2024 [...] Disc ontinued 10 mg PO daily 30 0 September 18, 2020 1:00am October 05, 2020 [...] mg tablet Discontinued 20 mg PO daily 28 09December 25, 2018 11:49am September 30, 2019 3:45pm Start: 04-24-2018 End: 12-24-2018 take 1 tablet by mouth once daily Rosuvastatin 10 mg tablet Discontinued 10 mg PO daily 28 09April 24, 2018 12:00am December 24, 2018 11:17am [...] for shortness of breath or wheezing 180 June 05, 2024 9:00am September 10, 2024 [...] Discontinued 1 {tbl} PO TWICE A DAY September 12, 2024 1:00am October 27, 2024 3:47pm amylase [id number] unt / lipase 71718 unt / protease [id number] unt delayed release oral capsule (13 sources) Start: 04-20-20 End: 03-18-20 24 take [id number] capsules by mouth three times daily at mealtime Ofzzzm-Mxzdofes-Ftyu ase (Creon) 36,000-114,000- 180,000 unit capsule,delayed release(DR/EC) Discontinued 1 NMA PO THREE TIMES A DAY April 20, 2023 12:00am March 18, 2024 2:23pm administer with meals and/or snacks ascorbic acid 1000 mg oral tablet (1 source) Vitamin C End: 05-05-20 take 1 tablet by mouth once daily [...] tablet (20 sources) P2Y12 Platelet Inhibitor Start: 021 End: 025 take 1 tablet by mouth once daily [...] release oral capsule (20 sources) Calcium Channel Bessie Start: End: take 1 capsule by mouth once daily Diltiazem Hcl 180 mg capsule,extended release 24hr Discontinued 180 mg PO DAILY 1 0 January 18, 2022 12:00am February 14, 2022 3:17pm ezetimibe 10 mg oral tablet (20 sources) Dietary Cholesterol Absorption Inhibitor Start: End: take 1 tablet by mouth once daily Ezetimibe (Zetia) 10 mg tablet Discontinued 10 mg PO DAILY March 18, 2024 12:00am October 27, 2024 3:47pm Comment on above: Take 1 tablet by bianka th once daily. Fluad Quad (65yr up)(PF) 60 mcg (15 [...] 22, 2018 11:00pm April 23, 2018 6:47am Fkfyvelvtby-Siscbwngs-Aqrglt er (4 sources) Start: 05-05-2025 End: 07-21-2025 Wonilrqanbx-Kqwsfqzow-Lwomvb er (Trelegy Ellipta) 200-62.5-25 mcg blister with [...] 24 hr Discontinued 0 .ROUTE .COMPLEX 90 3 September 25, 2023 9:20am September 09, 2024 [...] once daily. Take 1 capsule by mo [facility] once daily. oxaprozin 600 mg oral tablet (20 sources) Nonsteroidal Anti-inflammatory Drug Start: 2017 End: 2019 take 1 tablet by mouth once daily as needed Oxaprozin (Daypro) 600 mg tablet Discontinued 600 mg PO daily as needed April 24, 2018 9:06March 30, 2020 11:16am pantoprazole 20 mg delayed [...] 250 mg PO THREE TIMES A DAY May 24, 2021 12:00am August 05, 2021 [...] 2.5 ug by inhalation once daily Tiotropium [place] (Spiriva Respimat) 2.5 mcg/actuation mist Discontinued 2 NMA INHALATION daily November 05, 2024 1:00am May 05, 2025 1:04pm Start: 07-30-2024 End: 10-27-2024 take 2.5 ug by inhalation once daily Tiotropium [place] (Spiriva Respimat) 2.5 mcg/actuation mist Discontinued 2 NMA INHALATION daily 1 July 30, 2024 12:00am October 27, 2024 3:49pm administer at approximately the same time(s) each day Start: 04-11-2023 End: 11-23-2023 take 2.5 ug by inhalation once daily Tiotropium [place] (Spiriva Respimat) 2.5 mcg/actuation mist Discontinued 2 NMA INHALATION daily 11 04April 11, 2023 12:00am November 23, 2023 7:38am administer at approximately the same time(s) each day Start: 05-25-2022 End: 08-04-2022 take 2.5 ug by inhalation once daily in the morning Tiotropium [place] (Spiriva Respimat) 2.5 mcg/actuation mist Discontinued 2 NMA INHALATION EVERY MORNING 4 May 25, 2022 12:00am August 04, 2022 12:53pm Start: 05-25-2022 End: 08-04-2022 take 2.5 ug by inhalation once daily in the morning Tiotropium [place] (Spiriva Respimat) 2.5 mcg/actuation mist Discontinued 2 NMA INHALATION EVERY MORNING May 25, 2022 12:00am August 04, 2022 12:53pm Start: 05-25-2022 End: 08-04-2022 take 1 puff(s) by inhalation once daily in the morning Tiotropium [place] (Spiriva Respimat) 2.5 mcg/actuation mist Discontinued 2 PUFF INHALATION EVERY MORNING May 25, 2022 12:00am August 04, 2022 12:53pm Start: 05-25-2022 End: 08-04-2022 take 1 puff(s) by inhalation once daily in the morning Tiotropium [place] (Spiriva Respimat) 2.5 mcg/actuation mist Discontinued 2 PUFF INHALATION EVERY MORNING May 24, 2022 11:00pm August 04, 2022 11:53am Start: 05-25-2022 take 1 puff(s) by in halation once daily in the morning Tiotropium [place] (Spiriva Respimat) 2.5 mcg/actuation mist Active 2 PUFF INHALATION EVERY MORNING May 25, 2022 12:00am Start: 09-28-2020 End: 08-05-2021 take 2.5 ug by inhalation once daily Tiotropium [place] (Spiriva Respimat) 2.5 mcg/actuation mist Discontinued 2 NMA INHALATION daily 3 October 27, 2020 12:19pm August 05, 2021 1:06pm administer at approximately the same time(s) each day Start: 09-28-2020 End: 08-05-2021 take 1 puff(s) by inhalation once daily Tiotropium [place] (Spiriva Respimat) 2.5 mcg/actuation mist Discontinued 2 [...] ISR on 11/12/[address] Ulrich of [facility];PTCA to distal RCA, PCI/stent to proximal rPDA, PTCA of distal LCx and OM2 ISR on 11/12/[address] Ulrich of [facility]; Coronary atherosclerosis and other heart disease (20 sources) Coronary arteriosclerosis; Translations: [Atherosclerotic heart disease of kaw coronary artery without angina pectoris] Onset: 2 10-07-2013 Chronic Comment on above: PCI-JOEY-CX w/ 2.75 x 18 Promus 06/19/2008PCI-Stent to RCA w/ BX Velocity in 2000, [id number] w/ 2.75 x 20 mm Taxus and distally w/ 3.0 x 15 mm [employer] Stent 01/05/2006CABG x 2 STEPHENS-LAD, SVG-D1 10/14/96 SVG-D1 is occludedPTCA to distal RCA, PCI/stent to proximal rPDA, PTCA of distal LCx and OM2 ISR on 11/12/[address] Ulrich of [facility]; Atherosclerosis of n ative coronary artery and [...] source) Pleurodynia; Translations: [Pleuritic chest pain] Onset: 2 Episodic Other lower respiratory disease (20 sources) Dyspnea; Translations: [Dyspnea, unspecified] 11-02-2022 Episodic Other lower respiratory disease (20 sources) Hypoxia; Translations: [Hypoxemia] 10-28-2022 Episodic Other lower respiratory disease (8 sources) Hypoxemia; Translations: [Hypoxemia] Onset: 5 Episodic Other lower respiratory disease (1 source) [...] hip; Translations: [Acute right hip pain] Onset: 5 Episodic Other screening for suspected conditions (not mental disorders or infectious disease) (1 source) Encounter for screening for other musculoskeletal disorder; Translations: [Encounter for screening for other musculoskeletal disorder] Onset: Episodic Other skin disorders (2 sources) Cyst [...] Respiratory failure; insufficiency; arrest (adult) (20 sources) Peyij-tn-ahfvacz respiratory failure; Translations: [Acute and chronic respiratory [...] to RCA w/ BX Velocity in 2000, [id number] w/ 2.75 x 20 mm Taxus and distally w/ 3.0 x 15 mm [employer] Stent 01/05/2006PTCA to distal RCA, PCI/stent to proximal rPDA, PTCA of distal LCx and OM2 ISR on 11/12/[address] Ulrich of [facility]; Diverticulosis and diverticulitis (20 sources) Diverticulitis; Translations: [...] Onset: 09-12-2024 Episodic Other lower respiratory disease (8 sources) [...] Test Name Value Interpretation Reference Range Facility Basic Metabolic Profile (BMP )on 09-10-2025 BUN/CRE 25.7 RATIO High 10-20 [facility] Comment on above: Performed By: #### L 100.0100, L500.2500 ####[facility] [address] [place], [address] Calcium [Mass/Vol] 8.8 mg/dL Normal 7.6-11.0 [facility] Comment on above: Performed By: #### L 100.0100, L500.2500 ####[facility] [address] [place], [address] Chloride [Moles/Vol] 99 mmol/L Normal 98-108 [facility] Comment on above: Performed By: #### L 100.0100, L500.2500 ####[facility] [address] [place], [address] CO2 [Moles/Vol] 22.4 mmol/L Normal 21.0-32.0 [facility] Comment on above: Performed By: #### L 100.0100, L500.2500 ####[facility] [address] [place], [address] Creatinine [Mass/Vol] 0.83 mg/dL Normal 0.70-1.20 [facility] Comment on above: Performed By: #### L 100.0100, L500.2500 ####[facility] [address] [place], [address] ECRCL 76.32 ml/min Normal 50-250 [facility] Comment on above: Performed By: #### L 100.0100, L500.2500 ####[facility] [address] [place], [address] GAP 13 Normal 5-15 [facility] Comment on above: Performed By: #### L 100.0100, L500.2500 ####[facility] [address] [place], [address] GFR/1.73 sq M.predicted among non-blacks MDRD (S/P/Bld) [Vol rate/Area] 94 mL/min/{1.73_m2} Normal >60 [facility] Comment on above: Result Comment: mL/m in/1.73m2 CKD-EPI Creatinine Equation (2020) Performed By: #### L 100.0100, L500.2500 ####[facility] [address] [place], [address] Glucose [Mass/Vol] 111 mg/dL High 70-99 [facility] Comment on above: Performed By: #### L 100.0100, L500.2500 ####[facility] [address] [place], [address] Potassium [Moles/Vol] 4.7 mmol/L Normal 3.3-5.1 [facility] Comment on above: Performed By: #### L 100.0100, L500.2500 ####[facility] [address] [place], [address] Sodium [Moles/Vol] 135 mmol/L Normal 133-145 [facility] Comment on above: Performed By: #### L 100.0100, L500.2500 ####[facility] [address] [place], [address] Urea nitrogen [Mass/Vol] 21 mg/dL High 4-19 [facility] Comment on above: Performed By: #### L 100.0100, L500.2500 ####[facility] [address] [place], [address] CBC W/Diff, Automatedon 11-10 31-2024 Absolute Lymph 0.22 X10 3/uL Low 0.83-4.51 [facility] Comment on above: Performed By: #### L 100.0100, L500.2500 ####[facility] [address] [place], [address] Absolute Neut 8.1 X10 3/uL High 2.0-7.7 [facility] Comment on above: Performed By: #### L 100.0100, L500.2500 ####[facility] [address] [place], [address] Basophils/100 WBC (Bld) 0.1 % Normal 0-1 [facility] Comment on above: Performed By: #### L 100.0100, L500.2500 ####[facility] [address] [place], [address] Eosinophils/100 WBC (Bld) 0.0 % Normal 0-5 [facility] Comment on above: Performed By: #### L 100.0100, L500.2500 ####[facility] [address] [place], [address] Erythrocyte distribution width (RBC) [Ratio] 14.8 % High 11.6-14.6 [facility] Comment on above: Performed By: #### L 100.0100, L500.2500 ####[facility] [address] [place], [address] Hematocrit (Bld) [Volume fraction] 41.3 % Normal 40-54 [facility] Comment on above: Performed By: #### L 100.0100, L500.2500 ####[facility] [address] [place], [address] Hemoglobin (Bld) [Mass/Vol] 14.5 g/dL Normal 13.0-16.5 [facility] Comment on above: Performed By: #### L 100.0100, L500.2500 ####[facility] [address] [place], [address] IG% 1.000 High 0.0-0.9 [facility] Comment on above: Result Comment: IG% - Immature Granulocytes (promyelocytes, myelocytes andmetamyelocytes) > 1% indicates that a LEFT SHIFT is Present. Performed By: #### L 100.0100, L500.2500 ####[facility] [address] [place], [address] Lymphocytes/100 WBC (Bld) 2.4 % Low 19-41 [facility] Comment on above: Performed By: #### L 100.0100, L500.2500 ####[facility] [address] [place], [address] MCH (RBC) [Entitic mass] 34.8 pg High 27.0-32.0 [facility] Comment on above: Performed By: #### L 100.0100, L500.2500 ####[facility] [address] [place], [address] MCHC (RBC) [Mass/Vol] 35.1 g/dL Normal 32-36 [facility] Comment on above: Performed By: #### L 100.0100, L500.2500 ####[facility] [address] [place], [address] MCV (RBC) [Entitic vol] 99.0 fL High 80-94 [facility] Comment on above: Performed By: #### L 100.0100, L500.2500 ####[facility] [address] [place], [address] Monocytes/100 WBC (Bld) 6.1 % Normal 0-10 [facility] Comment on above: Performed By: #### L 100.0100, L500.2500 ####[facility] [address] [place], [address] Neutrophils/100 WBC (Bld) 90.4 % High 47-70 [facility] Comment on above: Performed By: #### L 100.0100, L500.2500 ####[facility] [address] [place], [address] Nucleated RBC (Bld) [#/Vol] 0 10*3/uL Normal 0-5 [facility] Comment on above: Performed By: #### L 100.0100, L500.2500 ####[facility] [address] [place], [address] Platelet mean volume (Bld) [Entitic vol] 10.3 fL Normal 6.2-12.0 [facility] Comment on above: Performed By: #### L 100.0100, L500.2500 ####[facility] [address] [place], [address] Platelets (Bld) [#/Vol] 155 10*3/uL Normal 150-450 [facility] Comment on above: Performed By: #### L 100.0100, L500.2500 ####[facility] [address] [place], [address] RBC (Bld) [#/Vol] 4.17 10*6/uL Low 4.6-6.2 [facility] Comment on above: Performed By: #### L 100.0100, L500.2500 ####[facility] [address] [place], [address] RDW SD 54.7 fl High 35.1-43.9 [facility] Comment on above: Performed By: #### L 100.0100, L500.2500 ####[facility] [address] [place], [address] WBC (Bld) [#/Vol] 9.0 10*3/uL Normal 4.4-11.0 [facility] Comment on above: Performed By: #### L 100.0100, L500.2500 ####[facility] [address] [place], [address] Basic Metabolic Profile (BMP )on 09-09-2025 BUN/CRE 24.0 RATIO High 10-20 [facility] Comment on above: Performed By: #### L 500.2500, L100.0100 ####[facility] [address] [place], [address] Calcium [Mass/Vol] 8.8 mg/dL Normal 7.6-11.0 [facility] Comment on above: Performed By: #### L 500.2500, L100.0100 ####[facility] [address] [place], [address] Chloride [Moles/Vol] 99 mmol/L Normal 98-108 [facility] Comment on above: Performed By: #### L 500.2500, L100.0100 ####[facility] [address] [place], [address] CO2 [Moles/Vol] 26.1 mmol/L Normal 21.0-32.0 [facility] Comment on above: Performed By: #### L 500.2500, L100.0100 ####[facility] [address] [place], [address] Creatinine [Mass/Vol] 0.85 mg/dL Normal 0.70-1.20 [facility] Comment on above: Performed By: #### L 500.2500, L100.0100 ####[facility] [address] [place], [address] ECRCL 74.52 ml/min Normal 50-250 [facility] Comment on above: Performed By: #### L 500.2500, L100.0100 ####[facility] [address] [place], [address] GAP 10 Normal 5-15 [facility] Comment on above: Performed By: #### L 500.2500, L100.0100 ####[facility] [address] [place], [address] GFR/1.73 sq M.predicted among non-blacks MDRD (S/P/Bld) [Vol rate/Area] 93 mL/min/{1.73_m2} Normal >60 [facility] Comment on above: Result Comment: mL/m in/1.73m2 CKD-EPI Creatinine Equation (2020) Performed By: #### L 500.2500, L100.0100 ####[facility] [address] [place], [address] Glucose [Mass/Vol] 106 mg/dL High 70-99 [facility] Comment on above: Performed By: #### L 500.2500, L100.0100 ####[facility] [address] [place], [address] Potassium [Moles/Vol] 4.7 mmol/L Normal 3.3-5.1 [facility] Comment on above: Performed By: #### L 500.2500, L100.0100 ####[facility] [address] [place], [address] Sodium [Moles/Vol] 135 mmol/L Normal 133-145 [facility] Comment on above: Performed By: #### L 500.2500, L100.0100 ####[facility] [address] [place], [address] Urea nitrogen [Mass/Vol] 21 mg/dL High 4-19 [facility] Comment on above: Performed By: #### L 500.2500, L100.0100 ####[facility] [address] [place], [address] CBC W/Diff, Automatedon 11-10 30-2024 Absolute Lymph 0.15 X10 3/uL Low 0.83-4.51 [facility] Comment on above: Performed By: #### L 500.2500, L100.0100 ####[facility] [address] [place], [address] Absolute Neut 8.0 X10 3/uL High 2.0-7.7 [facility] Comment on above: Performed By: #### L 500.2500, L100.0100 ####[facility] [address] [place], [address] Basophils/100 WBC (Bld) 0.1 % Normal 0-1 [facility] Comment on above: Performed By: #### L 500.2500, L100.0100 ####[facility] [address] [place], [address] Eosinophils/100 WBC (Bld) 0.3 % Normal 0-5 [facility] Comment on above: Performed By: #### L 500.2500, L100.0100 ####[facility] [address] [place], [address] Erythrocyte distribution width (RBC) [Ratio] 15.0 % High 11.6-14.6 [facility] Comment on above: Performed By: #### L 500.2500, L100.0100 ####[facility] [address] [place], [address] Hematocrit (Bld) [Volume fraction] 43.1 % Normal 40-54 [facility] Comment on above: Performed By: #### L 500.2500, L100.0100 ####[facility] [address] [place], [address] Hemoglobin (Bld) [Mass/Vol] 14.6 g/dL Normal 13.0-16.5 [facility] Comment on above: Performed By: #### L 500.2500, L100.0100 ####[facility] [address] [place], [address] IG% 0.900 Normal 0.0-0.9 [facility] Comment on above: Result Comment: IG% - Immature Granulocytes (promyelocytes, myelocytes andmetamyelocytes) > 1% indicates that a LEFT SHIFT is Present. Performed By: #### L 500.2500, L100.0100 ####[facility] [address] [place], [address] Lymphocytes/100 WBC (Bld) 1.7 % Low 19-41 [facility] Comment on above: Performed By: #### L 500.2500, L100.0100 ####[facility] [address] [place], [address] MCH (RBC) [Entitic mass] 34.4 pg High 27.0-32.0 [facility] Comment on above: Performed By: #### L 500.2500, L100.0100 ####[facility] [address] [place], [address] MCHC (RBC) [Mass/Vol] 33.9 g/dL Normal 32-36 [facility] Comment on above: Performed By: #### L 500.2500, L100.0100 ####[facility] [address] [place], [address] MCV (RBC) [Entitic vol] 101.4 fL High 80-94 [facility] Comment on above: Performed By: #### L 500.2500, L100.0100 ####[facility] [address] [place], [address] Monocytes/100 WBC (Bld) 5.1 % Normal 0-10 [facility] Comment on above: Performed By: #### L 500.2500, L100.0100 ####[facility] [address] [place], [address] Neutrophils/100 WBC (Bld) 91.9 % High 47-70 [facility] Comment on above: Performed By: #### L 500.2500, L100.0100 ####[facility] [address] [place], [address] Nucleated RBC (Bld) [#/Vol] 0 10*3/uL Normal 0-5 [facility] Comment on above: Performed By: #### L 500.2500, L100.0100 ####[facility] [address] [place], [address] Platelet mean volume (Bld) [Entitic vol] 10.5 fL Normal 6.2-12.0 [facility] Comment on above: Performed By: #### L 500.2500, L100.0100 ####[facility] [address] [place], [address] Platelets (Bld) [#/Vol] 152 10*3/uL Normal 150-450 [facility] Comment on above: Performed By: #### L 500.2500, L100.0100 ####[facility] [address] [place], [address] RBC (Bld) [#/Vol] 4.25 10*6/uL Low 4.6-6.2 [facility] Comment on above: Performed By: #### L 500.2500, L100.0100 ####[facility] [address] [place], [address] RDW SD 56.0 fl High 35.1-43.9 [facility] Comment on above: Performed By: #### L 500.2500, L100.0100 ####[facility] [address] [place], [address] WBC (Bld) [#/Vol] 8.7 10*3/uL Normal 4.4-11.0 [facility] Comment on above: Performed By: #### L 500.2500, L100.0100 ####[facility] [address] [place], [address] Consultation - Infectious Dx on 09-08-2025 Consultation - Infectious Dx Normal [facility] Mycoplasma Pneu IgG / IgMon 09-08-2025 M PNEUMONIA IgG < 100 Normal 0-99 [facility] Comment on above: Result Comment: Nega tive: <100 Indeterminate: 100 - 320 Positive: >320The reference interval established is intended as abaseline only. Values >100 may indicate a recentinfection with Mycoplasma pneumoniae and need to beconfirmed either by a positive IgM result and/or anadditional specimen drawn 2-4 weeks later showing asignificant increase in antibody levels. Performed By: #### L 7000.2400 ####[facility] [address] [place], [address] M PNEUMONIA IgM < 770 Normal 0-769 [facility] Comment on above: Result Comment: Nega tive <770Clinically significant amount of M. pneumoniae antibodynot detected. Low Positive 770 - 950M. pneumoniae specific IgM presumptively detected. Itis recommended that another sample be collected 1-2weeks later to assure reactivity. Positive >950Highly significant amount of M. pneumoniae specificIgM antibody detected.Performed at: [facility] [id number] [place], [place] [id number] Director: Gian Hopkins PhD, Phone: [phone] Performed By: #### L 7000.2400 ####[facility] [address] [place], [address] Respiratory Cultureon 2024 RESPC Normal [facility] Comment on above: Performed By: #### M 100.2000, M100.2400 ####[facility] [address] [place], [address] 12 Lead EKGon 09-07-2025 12 Lead EKG Normal [facility] Basic Metabolic Profile (BMP )on 09-07-2025 BUN/CRE 34.8 RATIO High 10-20 [facility] Comment on above: Performed By: #### L 100.0100, L500.2500 ####[facility] [address] [place], [address] Calcium [Mass/Vol] 9.2 mg/dL Normal 7.6-11.0 [facility] Comment on above: Performed By: #### L 100.0100, L500.2500 ####[facility] [address] [place], [address] Chloride [Moles/Vol] 101 mmol/L Normal 98-108 [facility] Comment on above: Performed By: #### L 100.0100, L500.2500 ####[facility] [address] [place], [address] CO2 [Moles/Vol] 30.9 mmol/L Normal 21.0-32.0 [facility] Comment on above: Performed By: #### L 100.0100, L500.2500 ####[facility] [address] [place], [address] Creatinine [Mass/Vol] 0.77 mg/dL Normal 0.70-1.20 [facility] Comment on above: Performed By: #### L 100.0100, L500.2500 ####[facility] [address] [place], [address] ECRCL 79.18 ml/min Normal 50-250 [facility] Comment on above: Performed By: #### L 100.0100, L500.2500 ####[facility] [address] [place], [address] GAP 5 Normal 5-15 [facility] Comment on above: Performed By: #### L 100.0100, L500.2500 ####[facility] [address] [place], [address] GFR/1.73 sq M.predicted among non-blacks MDRD (S/P/Bld) [Vol rate/Area] 96 mL/min/{1.73_m2} Normal >60 [facility] Comment on above: Result Comment: mL/m in/1.73m2 CKD-EPI Creatinine Equation (2020) Performed By: #### L 100.0100, L500.2500 ####[facility] [address] [place], [address] Glucose [Mass/Vol] 123 mg/dL High 70-99 [facility] Comment on above: Performed By: #### L 100.0100, L500.2500 ####[facility] [address] [place], [address] Potassium [Moles/Vol] 4.5 mmol/L Normal 3.3-5.1 [facility] Comment on above: Performed By: #### L 100.0100, L500.2500 ####[facility] [address] [place], [address] Sodium [Moles/Vol] 138 mmol/L Normal 133-145 [facility] Comment on above: Performed By: #### L 100.0100, L500.2500 ####[facility] [address] [place], [address] Urea nitrogen [Mass/Vol] 27 mg/dL High 4-19 [facility] Comment on above: Performed By: #### L 100.0100, L500.2500 ####[facility] [address] [place], [address] CBC W/Diff, Automatedon 11-0 9-2025 Absolute Lymph 0.09 X10 3/uL Low 0.83-4.51 [facility] Comment on above: Performed By: #### L 100.0100, L500.2500 ####[facility] [address] [place], [address] Absolute Neut 9.5 X10 3/uL High 2.0-7.7 [facility] Comment on above: Performed By: #### L 100.0100, L500.2500 ####[facility] [address] [place], [address] Basophils/100 WBC (Bld) 0.1 % Normal 0-1 [facility] Comment on above: Performed By: #### L 100.0100, L500.2500 ####[facility] [address] [place], [address] Eosinophils/100 WBC (Bld) 0.1 % Normal 0-5 [facility] Comment on above: Performed By: #### L 100.0100, L500.2500 ####[facility] [address] [place], [address] Erythrocyte distribution width (RBC) [Ratio] 15.3 % High 11.6-14.6 [facility] Comment on above: Performed By: #### L 100.0100, L500.2500 ####[facility] [address] [place], [address] Hematocrit (Bld) [Volume fraction] 41.3 % Normal 40-54 [facility] Comment on above: Performed By: #### L 100.0100, L500.2500 ####[facility] [address] [place], [address] Hemoglobin (Bld) [Mass/Vol] 14.2 g/dL Normal 13.0-16.5 [facility] Comment on above: Performed By: #### L 100.0100, L500.2500 ####[facility] [address] [place], [address] IG% 0.800 Normal 0.0-0.9 [facility] Comment on above: Result Comment: IG% - Immature Granulocytes (promyelocytes, myelocytes andmetamyelocytes) > 1% indicates that a LEFT SHIFT is Present. Performed By: #### L 100.0100, L500.2500 ####[facility] [address] [place], [address] Lymphocytes/100 WBC (Bld) 0.9 % Low 19-41 [facility] Comment on above: Performed By: #### L 100.0100, L500.2500 ####[facility] [address] [place], [address] MCH (RBC) [Entitic mass] 35.0 pg High 27.0-32.0 [facility] Comment on above: Performed By: #### L 100.0100, L500.2500 ####[facility] [address] [place], [address] MCHC (RBC) [Mass/Vol] 34.4 g/dL Normal 32-36 [facility] Comment on above: Performed By: #### L 100.0100, L500.2500 ####[facility] [address] [place], [address] MCV (RBC) [Entitic vol] 101.7 fL High 80-94 [facility] Comment on above: Performed By: #### L 100.0100, L500.2500 ####[facility] [address] [place], [address] Monocytes/100 WBC (Bld) 3.3 % Normal 0-10 [facility] Comment on above: Performed By: #### L 100.0100, L500.2500 ####[facility] [address] [place], [address] Neutrophils/100 WBC (Bld) 94.8 % High 47-70 [facility] Comment on above: Performed By: #### L 100.0100, L500.2500 ####[facility] [address] [place], [address] Nucleated RBC (Bld) [#/Vol] 0 10*3/uL Normal 0-5 [facility] Comment on above: Performed By: #### L 100.0100, L500.2500 ####[facility] [address] [place], [address] Platelet mean volume (Bld) [Entitic vol] 10.3 fL Normal 6.2-12.0 [facility] Comment on above: Performed By: #### L 100.0100, L500.2500 ####[facility] [address] [place], [address] Platelets (Bld) [#/Vol] 152 10*3/uL Normal 150-450 [facility] Comment on above: Performed By: #### L 100.0100, L500.2500 ####[facility] [address] [place], [address] RBC (Bld) [#/Vol] 4.06 10*6/uL Low 4.6-6.2 [facility] Comment on above: Performed By: #### L 100.0100, L500.2500 ####[facility] [address] [place], [address] RDW SD 58.0 fl High 35.1-43.9 [facility] Comment on above: Performed By: #### L 100.0100, L500.2500 ####[facility] [address] [place], [address] WBC (Bld) [#/Vol] 10.0 10*3/uL Normal 4.4-11.0 [facility] Comment on above: Performed By: #### L 100.0100, L500.2500 ####[facility] [address] [place], [address] Basic Metabolic Profile (BMP )on 09-06-2025 BUN/CRE 35.2 RATIO High 10-20 [facility] Comment on above: Performed By: #### L 500.2500, L100.0100 ####[facility] [address] [place], [address] Calcium [Mass/Vol] 9.0 mg/dL Normal 7.6-11.0 [facility] Comment on above: Performed By: #### L 500.2500, L100.0100 ####[facility] [address] [place], [address] Chloride [Moles/Vol] 101 mmol/L Normal 98-108 [facility] Comment on above: Performed By: #### L 500.2500, L100.0100 ####[facility] [address] [place], [address] CO2 [Moles/Vol] 27.9 mmol/L Normal 21.0-32.0 [facility] Comment on above: Performed By: #### L 500.2500, L100.0100 ####[facility] [address] [place], [address] Creatinine [Mass/Vol] 0.86 mg/dL Normal 0.70-1.20 [facility] Comment on above: Performed By: #### L 500.2500, L100.0100 ####[facility] [address] [place], [address] ECRCL 73.66 ml/min Normal 50-250 [facility] Comment on above: Performed By: #### L 500.2500, L100.0100 ####[facility] [address] [place], [address] GAP 9 Normal 5-15 [facility] Comment on above: Performed By: #### L 500.2500, L100.0100 ####[facility] [address] [place], [address] GFR/1.73 sq M.predicted among non-blacks MDRD (S/P/Bld) [Vol rate/Area] 93 mL/min/{1.73_m2} Normal >60 [facility] Comment on above: Result Comment: mL/m in/1.73m2 CKD-EPI Creatinine Equation (2020) Performed By: #### L 500.2500, L100.0100 ####[facility] [address] [place], [address] Glucose [Mass/Vol] 152 mg/dL High 70-99 [facility] Comment on above: Performed By: #### L 500.2500, L100.0100 ####[facility] [address] [place], [address] Potassium [Moles/Vol] 4.2 mmol/L Normal 3.3-5.1 [facility] Comment on above: Performed By: #### L 500.2500, L100.0100 ####[facility] [address] [place], [address] Sodium [Moles/Vol] 138 mmol/L Normal 133-145 [facility] Comment on above: Performed By: #### L 500.2500, L100.0100 ####[facility] [address] [place], [address] Urea nitrogen [Mass/Vol] 30 mg/dL High 4-19 [facility] Comment on above: Performed By: #### L 500.2500, L100.0100 ####[facility] [address] [place], [address] CBC W/Diff, Automatedon 11-0 8-2025 Absolute Lymph 0.22 X10 3/uL Low 0.83-4.51 [facility] Comment on above: Performed By: #### L 500.2500, L100.0100 ####[facility] [address] [place], [address] Absolute Neut 10.9 X10 3/uL High 2.0-7.7 [facility] Comment on above: Performed By: #### L 500.2500, L100.0100 ####[facility] [address] [place], [address] Basophils/100 WBC (Bld) 0.1 % Normal 0-1 [facility] Comment on above: Performed By: #### L 500.2500, L100.0100 ####[facility] [address] [place], [address] Eosinophils/100 WBC (Bld) 0.0 % Normal 0-5 [facility] Comment on above: Performed By: #### L 500.2500, L100.0100 ####[facility] [address] [place], [address] Erythrocyte distribution width (RBC) [Ratio] 15.8 % High 11.6-14.6 [facility] Comment on above: Performed By: #### L 500.2500, L100.0100 ####[facility] [address] [place], [address] Hematocrit (Bld) [Volume fraction] 41.1 % Normal 40-54 [facility] Comment on above: Performed By: #### L 500.2500, L100.0100 ####[facility] [address] [place], [address] Hemoglobin (Bld) [Mass/Vol] 14.1 g/dL Normal 13.0-16.5 [facility] [facility] Comment on above: Performed By: #### L 500.2500, L100.0100 ####[facility] [address] [place], [address] IG% 0.600 Normal 0.0-0.9 [facility] Comment on above: Result Comment: IG% - Immature Granulocytes (promyelocytes, myelocytes andmetamyelocytes) > 1% indicates that a LEFT SHIFT is Present. Performed By: #### L 500.2500, L100.0100 ####[facility] [address] [place], [address] Lymphocytes/100 WBC (Bld) 1.9 % Low 19-41 [facility] Comment on above: Performed By: #### L 500.2500, L100.0100 ####[facility] [address] [place], [address] MCH (RBC) [Entitic mass] 34.8 pg High 27.0-32.0 [facility] Comment on above: Performed By: #### L 500.2500, L100.0100 ####[facility] [address] [place], [address] MCHC (RBC) [Mass/Vol] 34.3 g/dL Normal 32-36 [facility] Comment on above: Performed By: #### L 500.2500, L100.0100 ####[facility] [address] [place], [address] MCV (RBC) [Entitic vol] 101.5 fL High 80-94 [facility] Comment on above: Performed By: #### L 500.2500, L100.0100 ####[facility] [address] [place], [address] Monocytes/100 WBC (Bld) 3.9 % Normal 0-10 [facility] Comment on above: Performed By: #### L 500.2500, L100.0100 ####[facility] [address] [place], [address] Neutrophils/100 WBC (Bld) 93.5 % High 47-70 [facility] Comment on above: Performed By: #### L 500.2500, L100.0100 ####[facility] [address] [place], [address] Nucleated RBC (Bld) [#/Vol] 0 10*3/uL Normal 0-5 [facility] Comment on above: Performed By: #### L 500.2500, L100.0100 ####[facility] [address] [place], [address] Platelet mean volume (Bld) [Entitic vol] 9.8 fL Normal 6.2-12.0 [facility] Comment on above: Performed By: #### L 500.2500, L100.0100 ####[facility] [address] [place], [address] Platelets (Bld) [#/Vol] 170 10*3/uL Normal 150-450 [facility] Comment on above: Performed By: #### L 500.2500, L100.0100 ####[facility] [address] [place], [address] RBC (Bld) [#/Vol] 4.05 10*6/uL Low 4.6-6.2 [facility] Comment on above: Performed By: #### L 500.2500, L100.0100 ####[facility] [address] [place], [address] RDW SD 59.8 fl High 35.1-43.9 [facility] Comment on above: Performed By: #### L 500.2500, L100.0100 ####[facility] [address] [place], [address] WBC (Bld) [#/Vol] 11.6 10*3/uL High 4.4-11.0 [facility] Comment on above: Performed By: #### L 500.2500, L100.0100 ####[facility] [address] [place], [address] Gram Stainon 09-06-2025 GS Acceptable Specimen? Yes (<25 Epithelial cells per/lpf) Gram Stain 2+ Gram negative rods Rare Gram positive cocci 1+ White Blood Cells Rare Epithelial cells Normal [facility] Comment on above: Performed By: #### M 100.2000, M100.2400 ####[facility] [address] [place], [address] Basic Metabolic Profile (BMP )on 09-05-2025 BUN/CRE 30.5 RATIO High 10-20 [facility] Comment on above: Performed By: #### L 500.2500, L100.0500 ####[facility] [address] [place], [address] Calcium [Mass/Vol] 9.0 mg/dL Normal 7.6-11.0 [facility] Comment on above: Performed By: #### L 500.2500, L100.0500 ####[facility] [address] [place], [address] Chloride [Moles/Vol] 102 mmol/L Normal 98-108 [facility] Comment on above: Performed By: #### L 500.2500, L100.0500 ####[facility] [address] [place], [address] CO2 [Moles/Vol] 28.4 mmol/L Normal 21.0-32.0 [facility] Comment on above: Performed By: #### L 500.2500, L100.0500 ####[facility] [address] [place], [address] Creatinine [Mass/Vol] 0.79 mg/dL Normal 0.70-1.20 [facility] Comment on above: Performed By: #### L 500.2500, L100.0500 ####[facility] [address] [place], [address] ECRCL 85.83 ml/min Normal 50-250 [facility] Comment on above: Performed By: #### L 500.2500, L100.0500 ####[facility] [address] [place], [address] GAP 9 Normal 5-15 [facility] Comment on above: Performed By: #### L 500.2500, L100.0500 ####[facility] [address] [place], [address] GFR/1.73 sq M.predicted among non-blacks MDRD (S/P/Bld) [Vol rate/Area] 95 mL/min/{1.73_m2} Normal >60 [facility] Comment on above: Result Comment: mL/m in/1.73m2 CKD-EPI Creatinine Equation (2020) Performed By: #### L 500.2500, L100.0500 ####[facility] [address] [place], [address] Glucose [Mass/Vol] 138 mg/dL High 70-99 [facility] Comment on above: Performed By: #### L 500.2500, L100.0500 ####[facility] [address] [place], [address] Potassium [Moles/Vol] 4.0 mmol/L Normal 3.3-5.1 [facility] Comment on above: Result Comment: Hemo lysis present, Results??could be affected.?? Performed By: #### L 500.2500, L100.0500 ####[facility] [address] [place], [address] Sodium [Moles/Vol] 138 mmol/L Normal 133-145 [facility] Comment on above: Performed By: #### L 500.2500, L100.0500 ####[facility] [address] [place], [address] Urea nitrogen [Mass/Vol] 24 mg/dL High 4-19 [facility] Comment on above: Performed By: #### L 500.2500, L100.0500 ####[facility] [address] [place], [address] CBC-Complete Blood Cnt No Di ffon 09-05-2025 Erythrocyte distribution width (RBC) [Ratio] 15.8 % High 11.6-14.6 [facility] Comment on above: Performed By: #### L 500.2500, L100.0500 ####[facility] [address] [place], [address] Hematocrit (Bld) [Volume fraction] 43.2 % Normal 40-54 [facility] Comment on above: Performed By: #### L 500.2500, L100.0500 ####[facility] [address] [place], [address] Hemoglobin (Bld) [Mass/Vol] 15.2 g/dL Normal 13.0-16.5 [facility] Comment on above: Performed By: #### L 500.2500, L100.0500 ####[facility] [address] [place], [address] MCH (RBC) [Entitic mass] 35.3 pg High 27.0-32.0 [facility] Comment on above: Performed By: #### L 500.2500, L100.0500 ####[facility] [address] [place], [address] MCHC (RBC) [Mass/Vol] 35.2 g/dL Normal 32-36 [facility] Comment on above: Performed By: #### L 500.2500, L100.0500 ####[facility] [address] [place], [address] MCV (RBC) [Entitic vol] 100.5 fL High 80-94 [facility] Comment on above: Performed By: #### L 500.2500, L100.0500 ####[facility] [address] [place], [address] Platelet mean volume (Bld) [Entitic vol] 10.0 fL Normal 6.2-12.0 [facility] Comment on above: Performed By: #### L 500.2500, L100.0500 ####[facility] [address] [place], [address] Platelets (Bld) [#/Vol] 185 10*3/uL Normal 150-450 [facility] Comment on above: Performed By: #### L 500.2500, L100.0500 ####[facility] [address] [place], [address] RBC (Bld) [#/Vol] 4.30 10*6/uL Low 4.6-6.2 [facility] Comment on above: Performed By: #### L 500.2500, L100.0500 ####[facility] [address] [place], [address] RDW SD 58.7 fl High 35.1-43.9 [facility] Comment on above: Performed By: #### L 500.2500, L100.0500 ####[facility] [address] [place], [address] WBC (Bld) [#/Vol] 7.4 10*3/uL Normal 4.4-11.0 [facility] Comment on above: Performed By: #### L 500.2500, L100.0500 ####[facility] [address] [place], [address] CTA Chest W/WO Contraston CTA Chest W/WO Contrast Normal [facility] Echo Completeon 09-05-2025 Echo Complete Normal [facility] Legionella Antigen Urineon 1 11-05-2024 LEGU URINE, CLEAN CATCH Legionella Ag, Urine Negative (See interpretation below) Normal [facility] Comment on above: Performed By: #### M 300.4500, M100.678, M300.4600 ####[facility] [address] [place], [address] M100.678on 09-05-2025 M100.678 Pending SARS-CoV-2 (COVID 19) Negative INFLUENZA A Negative INFLUENZA B Negative RSV PCR Negative Normal [facility] Comment on above: Performed By: #### M 300.4500, M100.678, M300.4600 ####[facility] [address] [place], [address] RESPIRATORY PANEL MOLECULARo n 09-05-2025 RP PANEL Normal [facility] Comment on above: Performed By: #### M 100.638 ####[facility] [address] [place], [address] Strep pneumoniae Antig(UR,CS F)on 09-05-2025 STPAG Normal [facility] Comment on above: Performed By: #### M 300.4500, M100.678, M300.4600 ####[facility] [address] [place], [address] Basic Metabolic Profile (BMP )on 09-04-2025 BUN/CRE 24.1 RATIO High 10-20 [facility] Comment on above: Performed By: #### L 100.0100, L500.2500 ####[facility] [address] [place], [address] Calcium [Mass/Vol] 9.2 mg/dL Normal 7.6-11.0 [facility] Comment on above: Performed By: #### L 100.0100, L500.2500 ####[facility] [address] [place], [address] Chloride [Moles/Vol] 100 mmol/L Normal 98-108 [facility] Comment on above: Performed By: #### L 100.0100, L500.2500 ####[facility] [address] [place], [address] CO2 [Moles/Vol] 30.3 mmol/L Normal 21.0-32.0 [facility] Comment on above: Performed By: #### L 100.0100, L500.2500 ####[facility] [address] [place], [address] Creatinine [Mass/Vol] 0.89 mg/dL Normal 0.70-1.20 [facility] Comment on above: Performed By: #### L 100.0100, L500.2500 ####[facility] [address] [place], [address] GAP 9 Normal 5-15 [facility] Comment on above: Performed By: #### L 100.0100, L500.2500 ####[facility] [address] [place], [address] GFR/1.73 sq M.predicted among non-blacks MDRD (S/P/Bld) [Vol rate/Area] 92 mL/min/{1.73_m2} Normal >60 [facility] Comment on above: Result Comment: mL/m in/1.73m2 CKD-EPI Creatinine Equation (2020) Performed By: #### L 100.0100, L500.2500 ####[facility] [address] [place], [address] Glucose [Mass/Vol] 139 mg/dL High 70-99 [facility] Comment on above: Performed By: #### L 100.0100, L500.2500 ####[facility] [address] [place], [address] Potassium [Moles/Vol] 4.5 mmol/L Normal 3.3-5.1 [facility] Comment on above: Performed By: #### L 100.0100, L500.2500 ####[facility] [address] [place], [address] Sodium [Moles/Vol] 140 mmol/L Normal 133-145 [facility] Comment on above: Performed By: #### L 100.0100, L500.2500 ####[facility] [address] [place], [address] Urea nitrogen [Mass/Vol] 21 mg/dL High 4-19 [facility] Comment on above: Performed By: #### L 100.0100, L500.2500 ####[facility] [address] [place], [address] CBC W/Diff, Automatedon 11-0 6-2025 Absolute Lymph 0.24 X10 3/uL Low 0.83-4.51 [facility] Comment on above: Performed By: #### L 100.0100, L500.2500 ####[facility] [address] [place], [address] Absolute Neut 8.6 X10 3/uL High 2.0-7.7 [facility] Comment on above: Performed By: #### L 100.0100, L500.2500 ####[facility] [address] [place], [address] Basophils/100 WBC (Bld) 0.2 % Normal 0-1 [facility] Comment on above: Performed By: #### L 100.0100, L500.2500 ####[facility] [address] [place], [address] Eosinophils/100 WBC (Bld) 0.0 % Normal 0-5 [facility] Comment on above: Performed By: #### L 100.0100, L500.2500 ####[facility] [address] [place], [address] Erythrocyte distribution width (RBC) [Ratio] 15.6 % High 11.6-14.6 [facility] Comment on above: Performed By: #### L 100.0100, L500.2500 ####[facility] [address] [place], [address] Hematocrit (Bld) [Volume fraction] 47.1 % Normal 40-54 [facility] Comment on above: Performed By: #### L 100.0100, L500.2500 ####[facility] [address] [place], [address] Hemoglobin (Bld) [Mass/Vol] 16.2 g/dL Normal 13.0-16.5 [facility] Comment on above: Performed By: #### L 100.0100, L500.2500 ####[facility] [address] [place], [address] IG% 0.700 Normal 0.0-0.9 [facility] Comment on above: Result Comment: IG% - Immature Granulocytes (promyelocytes, myelocytes andmetamyelocytes) > 1% indicates that a LEFT SHIFT is Present. Performed By: #### L 100.0100, L500.2500 ####[facility] [address] [place], [address] Lymphocytes/100 WBC (Bld) 2.6 % Low 19-41 [facility] Comment on above: Performed By: #### L 100.0100, L500.2500 ####[facility] [address] [place], [address] MCH (RBC) [Entitic mass] 35.1 pg High 27.0-32.0 [facility] Comment on above: Performed By: #### L 100.0100, L500.2500 ####[facility] [address] [place], [address] MCHC (RBC) [Mass/Vol] 34.4 g/dL Normal 32-36 [facility] Comment on above: Performed By: #### L 100.0100, L500.2500 ####[facility] [address] [place], [address] MCV (RBC) [Entitic vol] 101.9 fL High 80-94 [facility] Comment on above: Performed By: #### L 100.0100, L500.2500 ####[facility] [address] [place], [address] Monocytes/100 WBC (Bld) 2.8 % Normal 0-10 [facility] Comment on above: Performed By: #### L 100.0100, L500.2500 ####[facility] [address] [place], [address] Neutrophils/100 WBC (Bld) 93.7 % High 47-70 [facility] Comment on above: Performed By: #### L 100.0100, L500.2500 ####[facility] [address] [place], [address] Nucleated RBC (Bld) [#/Vol] 0 10*3/uL Normal 0-5 [facility] Comment on above: Performed By: #### L 100.0100, L500.2500 ####[facility] [address] [place], [address] Platelet mean volume (Bld) [Entitic vol] 9.5 fL Normal 6.2-12.0 [facility] Comment on above: Performed By: #### L 100.0100, L500.2500 ####[facility] [address] [place], [address] Platelets (Bld) [#/Vol] 199 10*3/uL Normal 150-450 [facility] Comment on above: Performed By: #### L 100.0100, L500.2500 ####[facility] [address] [place], [address] RBC (Bld) [#/Vol] 4.62 10*6/uL Normal 4.6-6.2 [facility] Comment on above: Performed By: #### L 100.0100, L500.2500 ####[facility] [address] [place], [address] RDW SD 58.7 fl High 35.1-43.9 [facility] Comment on above: Performed By: #### L 100.0100, L500.2500 ####[facility] [address] [place], [address] WBC (Bld) [#/Vol] 9.1 10*3/uL Normal 4.4-11.0 [facility] Comment on above: Performed By: #### L 100.0100, L500.2500 ####[facility] [address] [place], [address] Chest PA and Lateralon 09-04 Chest PA and Lateral Normal [facility] Emergency Department Summary on 09-04-2025 Emergency Department Summary Normal [facility] H AND P Exam - Hospitaliston 09-04-2025 H&P Exam - Hospitalist Normal [facility] L509.7001on 09-04-2025 Procalcitonin 0.05 ng/mL Normal <=0.10 [facility] Comment on above: Order Comment: Comme nts: ok to add on Result Comment: Inte rpretation:<0.10-0.25 ng/mL: Antibiotic therapy discouraged. Bacterialinfection unlikely.0.25-0.50 ng/mL: Antibiotic therapy encouraged. Bacterialinfection possible.>0.50 ng/mL: Antibiotic therapy strongly encouraged.Suggestive of presence of bacterial infection.PCT should always be interpreted in the clinical context ofthe patient. Therefore, clinicians should use the PCTresults in conjunction with other laboratory findings andclinical signs of the patient. Performed By: #### L 509.7001 ####[facility] [address] [place], [address] Pro- Brain NATRIURETIC PEPTI Ebony 09-04-2025 Natriuretic peptide B (Bld) [Mass/Vol] 857 pg/mL Normal <=900 [facility] Comment on above: Result Comment: Hear t Failure Unlikely: < 300 pg/mLHeart Failure Likely< 50 Years: > 450 pg/mL50-75 Years: > 900 pg/mL>75 Years: > 1800 pg/mL Performed By: #### L 503.7505 ####[facility] [address] [place], [address] XR CHEST 2V FRONTAL/LATon XR CHEST 2V FRONTAL/LAT * * *Final Repor t* * * DATE OF EXAM: Sep 03 2025 11:39AM WRX [id number] - XR CHEST 2V FRONTAL/LAT / PROCEDURE REASON: copd * * * * Physician Interpretation * * * * EXAMINATION: CHEST RADIOGRAPH (2 VIEW FRONTAL and LATERAL) CLINICAL HISTORY: COPD MQ: XC2_6 EXAM DATE/TIME: 09/03/2025 11:39 AM COMPARISON: 08/30/2024. RESULT: Lines, tubes, and devices: None. Lungs and pleura: Small bilateral pleural effusions with adjacent patchy airspace opacities. No pneumothorax. Cardiomediastinal silhouette: Stable cardiomediastinal silhouette. Status post median sternotomy. Bones and soft tissues: Degenerative changes are present within the thoracic spine. IMPRESSION: Small bilateral pleural effusions with adjacent infiltrates and/or atelectasis. Wall Insulation Sprayer: TIMOTEO Transcribe Date/Time: Sep 04 2025 7:52A Dictated by : PRESTON BERNAL MD This examination was interpreted and the report reviewed and electronically signed by: PRESTON BERNAL MD on Sep 04 2025 7:53AM EST [id number] Normal [facility] Bacteria Spec Resp Culton Bacteria identified Respiratory culture Nom (Unsp spec) ORGANISM ID: 1 Rare Pseudomonas aeruginosa Insignificant colony count. No further workup. ORGANISM ID: 2 Few normal respiratory ann GRAM STAIN: Few Mixed oral ann Rare Polymorphonuclear leukocytes Rare Epithelial cells Abnormal [facility] Comment on above: Performed By: #### 3 2355-0 ####[facility] MAIN LABCLIA [id number] [address] CNOVon 08-18-2025 CNOV Office Visit (ORTHWS ) -------- HORACE HENDERSON ([id number]) 1955 Date Time Provider Department 08/18/25 1:00 PM [...] of Orthopaedics Orthopa[facility] [address] [place] [address] Dept: [phone] Dept August 18, 2025 CHIEF COMPLAINT: New [...] Patient to consider options and notify via Paradigmhart if wishing to proceed with XIAFLEX or [...] 10/14/1996 SVG to diagonal. [facility] to [facility]. CC CORONARY STENT 09/29/2021 Biotronik 2.5x22 mm to distal RCA, biotronik 3.0 x 30 mm to proximal RCA COLECTOMY PARTIAL W/ANASTOMOSIS 08/12/2012 COLONOSCOPY FLX DX W/COLLJ SPEC WHEN PFRMD 07/12/2012 Colonoscopy COLONOSCOPY FLX DX W/COLLJ SPEC WHEN PFRMD 06/22/2021 C (more content not included)... Normal [facility] CBC W Auto Differential pane l (Bld)on 08-15-2025 Basophils (Bld) [#/Vol] 0.06 10*3/uL Normal <0.11 [facility] Comment on above: Order Comment: Speci men Type: BLOOD SPECIMEN Ordering Facility: Neptali Orellana MD Address: [address] [place] [address] Performed By: #### 5 7021-8 #### [facility] CLIA [id number] [address] [place] [address] [place] Basophils/100 WBC (Bld) 0.7 % Normal C [facility] Comment on above: Order Comment: Speci men Type: BLOOD SPECIMEN Ordering Facility: Neptali Orellana MD Address: [facility] [place] [address] Performed By: #### 5 7021-8 #### [facility] CLIA [id number] [address] [place] [address] [place] Differential cell count method Nom (Bld) Auto Normal [facility] Comment on above: Order Comment: Speci men Type: BLOOD SPECIMEN Ordering Facility: Neptali Orellana MD Address: [address] [place] [address] Performed By: #### 5 7021-8 #### [facility] CLIA [id number] [address] [place] [address] [place] Eosinophils (Bld) [#/Vol] 0.12 10*3/uL Normal <0.46 [facility] Comment on above: Order Comment: Speci men Type: BLOOD SPECIMEN Ordering Facility: Neptali Orellana MD Address: [address] [place] [address] Performed By: #### 5 7021-8 #### [facility] CLIA [id number] [address] [place] [address] [place] Eosinophils/100 WBC (Bld) 1.3 % Normal [facility] Comment on above: Order Comment: Speci men Type: BLOOD SPECIMEN Ordering Facility: Neptali Orellana MD Address: [address] [place] [address] Performed By: #### 5 7021-8 #### [facility] CLIA [id number] [address] [place] [address] [place] Erythrocyte distribution width (RBC) [Ratio] 14.3 % Normal 11.5-15.0 [facility] Comment on above: Order Comment: Speci men Type: BLOOD SPECIMEN Ordering Facility: Neptali Orellana MD Address: [address] [place] [address] Performed By: #### 5 7021-8 #### [id number] [address] [place] [address] [place] Hematocrit (Bld) [Volume fraction] 45.1 % Normal 39.0-51.0 [facility] Comment on above: Order Comment: Speci men Type: BLOOD SPECIMEN Ordering Facility: Neptali Orellana MD Address: [address] [place] [address] Performed By: #### 5 7021-8 #### [facility] [id number] [address] [place] [address] [place] Hemoglobin (Bld) [Mass/Vol] 15.8 g/dL Normal 13.0-17.0 [facility] Comment on above: Order Comment: Speci men Type: BLOOD SPECIMEN Ordering Facility: Neptali Orellana MD Address: [address] [place] [address] Performed By: #### 5 7021-8 #### [facility] [id number] [address] [place] [address] [place] Immature granulocytes (Bld) [#/Vol] 0.03 10*3/uL Normal <0.10 [facility] Comment on above: Order Comment: Speci men Type: BLOOD SPECIMEN Ordering Facility: Neptali Orellana MD Address: [address] [place] [address] Performed By: #### 5 7021-8 #### [facility] [id number] [address] [place] [address] [place] GAMALIEL Immature granulocytes/100 WBC (Bld) 0.3 % Normal [facility] Comment on above: Order Comment: Speci men Type: BLOOD SPECIMEN Ordering Facility: Neptali Orellana MD Address: [address] [place] [address] Performed By: #### 5 7021-8 #### [facility] CLIA [id number] [address] [place] [address] [place] Lymphocytes (Bld) [#/Vol] 1.37 10*3/uL Normal 1.00-4.00 [facility] Comment on above: Order Comment: Speci men Type: BLOOD SPECIMEN Ordering Facility: Neptali Orellana MD Address: [address] [place] [address] Performed By: #### 5 7021-8 #### [facility] CLIA [id number] [address] [place] [address] [place] Lymphocytes/100 WBC (Bld) 15.0 % Normal [facility] Comment on above: Order Comment: Speci men Type: BLOOD SPECIMEN Ordering Facility: Neptali Orellana MD Address: [address] [place] [address] Performed By: #### 5 7021-8 #### [id number] [address] [place] [address] [place] MCH (RBC) [Entitic mass] 34.0 pg Normal 26.0-34.0 [facility] Comment on above: Order Comment: Speci men Type: BLOOD SPECIMEN Ordering Facility: Neptali Orellana MD Address: [address] [place] [address] Performed By: #### 5 7021-8 #### [facility] CLIA [id number] [address] [place] [address] [place] MCHC (RBC) [Mass/Vol] 35.0 g/dL Normal 30.5-36.0 [facility] Comment on above: Order Comment: Speci men Type: BLOOD SPECIMEN Ordering Facility: Neptali Orellana MD Address: [address] [place] [address] Performed By: #### 5 7021-8 #### [facility] [id number] [address] [place] [address] [place] MCV (RBC) [Entitic vol] 97.0 fL Normal 80.0-100.0 [facility] Comment on above: Order Comment: Speci men Type: BLOOD SPECIMEN Ordering Facility: Neptali Orellana MD Address: [address] [place] [address] Performed By: #### 5 7021-8 #### [facility] CLIA [id number] [address] [place] [address] [place] Monocytes (Bld) [#/Vol] 0.93 10*3/uL High <0.87 [facility] Comment on above: Order Comment: Speci men Type: BLOOD SPECIMEN Ordering Facility: Neptali Orellana MD Address: [address] [place] [address] Performed By: #### 5 7021-8 #### [facility] CLIA [id number] [address] [place] [address] [place] Monocytes/100 WBC (Bld) 10.2 % Normal [facility] Comment on above: Order Comment: Speci men Type: BLOOD SPECIMEN Ordering Facility: Neptali Orellana MD Address: [address] [place] [address] Performed By: #### 5 7021-8 #### [facility] CLIA [id number] [address] [place] [address] [place] Neutrophils (Bld) [#/Vol] 6.60 10*3/uL Normal 1.45-7.50 [facility] Comment on above: Order Comment: Speci men Type: BLOOD SPECIMEN Ordering Facility: Neptali Orellana MD Address: [address] [place] [address] Performed By: #### 5 7021-8 #### [facility] CLIA [id number] [address] [place] [address] [place] Neutrophils/100 WBC (Bld) 72.5 % Normal [facility] Comment on above: Order Comment: Speci men Type: BLOOD SPECIMEN Ordering Facility: Neptali Orellana MD Address: [address] [place] [address] Performed By: #### 5 7021-8 #### [facility] [id number] [address] [place] [address] [place] Nucleated RBC (Bld) [#/Vol] 10*3/uL Normal <0.01 [facility] Comment on above: Order Comment: Speci men Type: BLOOD SPECIMEN Ordering Facility: Neptali Orellana MD Address: [address] [place] [address] Performed By: #### 5 7021-8 #### [facility] [id number] [address] [place] [address] [place] Nucleated RBC/100 WBC (Bld) [Ratio] 0.0 /100 WBC Normal [facility] Comment on above: Order Comment: Speci men Type: BLOOD SPECIMEN Ordering Facility: Neptali Orellana MD Address: [address] [place] [address] Performed By: #### 5 7021-8 #### [facility] [id number] [address] [place] [address] [place] Platelet mean volume (Bld) [Entitic vol] 8.9 fL Low 9.0-12.7 [facility] Comment on above: Order Comment: Speci men Type: BLOOD SPECIMEN Ordering Facility: Neptali Orellana MD Address: [address] [place] [address] Performed By: #### 5 7021-8 #### [facility] [id number] [address] [place] [address] [place] Platelets (Bld) [#/Vol] 224 10*3/uL Normal 150-400 [facility] Comment on above: Order Comment: Speci men Type: BLOOD SPECIMEN Ordering Facility: Neptali Orellana MD Address: [address] [place] [address] Performed By: #### 5 7021-8 #### [facility] CLIA [id number] [address] [place] [address] [place] RBC (Bld) [#/Vol] 4.65 10*6/uL Normal 4.20-6.00 [facility] Comment on above: Order Comment: Speci men Type: BLOOD SPECIMEN Ordering Facility: Neptali Orellana MD Address: [address] [place] [address] Performed By: #### 5 7021-8 #### [facility] CLIA [id number] [address] [place] [address] [place] WBC (Bld) [#/Vol] 9.11 10*3/uL Normal 3.70-11.00 [facility] Comment on above: Order Comment: Speci men Type: BLOOD SPECIMEN Ordering Facility: Neptali Orellana MD Address: [address] [place] [address] Performed By: #### 5 7021-8 #### [facility] CLIA [id number] [address] [place] [address] [place] Inital Evaluation (1) - PTon 07-23-2025 Inital Evaluation (1) - PT Normal [facility] Orthopedic Visit Reporton Orthopedic Visit Report Normal [facility] HORACE HENDERSON ([id number]) 1955 M Date Time Provider Department 07/16/25 ALKA MAYES FAVIOLA During your visit today, we recorded the following information about you: Rachele Coleman 07/16/2025 10:50 AM Signed Patient is requesting MRI from 07/15/2025 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 Achilles tendonitis. Date Reviewed: 07/08/2025 Reviewed by: Jessie Sullivan MA - Fully Assessed Prescriptions as of 08/10/2025 - TRELEGY ELLIPTA 200-62.5-25 mcg inhalation powder [...] Status:Closed by RACHELE COLEMAN on 08/10/25 Normal [facility] MR Hip - right WO contraston [...] A STRESS REACTION. NO DISCRETE FRACTURE LINE. Wall Insulation Sprayer: TIMOTEO Transcribe Date/Time: Jul 15 2025 10:46A Dictated by : LUIS ARMANDO JONES DO This examination was interpreted and the report reviewed and electronically signed by: LUIS ARMANDO JONES DO on Jul 15 2025 11:40AM [facility] DIVISION OF RADIOLOGY * * *Final Report* * * DATE OF EXAM: Jul 15 2025 7:33AM M 0207 - MRI HIP WO IVCON RT [...] or free fluid. DIVISION OF RADIOLOGY Provider, [facility] Desire [facility] - 07/15/2025 * * *Final Report* * [...] A STRESS REACTION. NO DISCRETE FRACTURE LINE. Wall Insulation Sprayer: TIMOTEO Transcribe Date/Time: Jul 15 2025 10:46A Dictated by : LUIS ARMANDO JONES DO This examination was interpreted and the report reviewed and electronically signed by: LUIS AMRANDO JONES DO on Jul 15 2025 11:40AM EST [facility] Radiology Study observation (narrative) [facility] MR Hip - right WO contrastOr dered By: Ccf Provider on 07-15-2025 [facility] MRI HIP WO IVCON RTon 2024 MRI [...] A STRESS REACTION. NO DISCRETE FRACTURE LINE. Wall Insulation Sprayer: TIMOTEO Transcribe Date/Time: Jul 15 2025 10:46A Dictated by : LUIS ARMANDO JONES DO This examination was interpreted and the report reviewed and electronically signed by: LUIS ARMANDO JONES DO on Jul 15 2025 11:40AM EST [id number] Normal [facility] CNOVon 07-08-2025 CNOV Office Visit (FRFHWS ) -------- BALJIT,HORACE Champagne ([id number]) 1955 M Date Time Provider Department 07/08/25 10:00 AM [facility] During your visit today, we recorded the [...] these instructions. Informed Consent Consent Obtained: Verbal [place] Protocol SIGN IN TIME OUT Recording using [employer] software for draft documentation of the visit was discussed with the patient/authorized sales promotion representative; all questions welcomed and answered. Patient/authorized sales promotion representative agreed to proceed Low Bryant V, DO 07/11/2025 12:56 PM Signed Addended by: LOW BRYANT V on: 07/11/2025 12:56 PM Modules accepted: Orders Referring Provider: BLANCA TILLEY [[id number]] Allergies As of Date: 07/08/2025 Noted Allergy [...] osteoarthritis, right hip [M16.11] Order(s):CONSULT TO ORTHOPAEDICS [9026] Order #: [id number]: 1 Large Joint Arthro/Inj: R great (more content not included)... Normal [facility] Large Joint Arthro/Inj: R gr eater [...] these instructions. Informed Consent Consent Obtained: Verbal [place] Protocol SIGN IN TIME OUT [facility] CNOVon 07-07-2025 CNOV Office Visit (INTMWS ) -------- HORACE HENDERSON ([id number]) 1955 M Date Time Provider Department 07/07/25 11:00 AM BLANCA TILLEY INTMWS During your visit today, we recorded the following information about you: Pulse Blood pressure Weight 86/minute 138/72 81.9 kg Blanca Tilley, MELT SUPERVISOR.ELEVATOR STARTER 07/07/2025 1:21 PM Signed CC: Patient presents with: Follow Up: UC right hip pain. Hurts to even lift leg from gas pedal to brake. No improvement. HPI Recording using [employer] software for draft documentation of the visit was discussed with the patient/authorized sales promotion representative; all questions welcomed and answered. Patient/authorized sales promotion representative agreed to proceed The patient is [...] disease) with chronic bronchitis (HCC) 10/07/2013 06/17/2014 JMP897% predicted. COVID-19 07/05/2022 DDD (degenerative disc disease), [...] SVG to diagonal. STEPHENS to LAD. [facility] CORONARY STENT 09/29/2021 Biotronik [...] OF 01/05/2006 stents cardiac x 6, timmatias vega, 2 year intervals REVISE MEDIAN N/CARPAL [...] by m (more content not included)... Normal [facility] CNOVon 07-03-2025 CNOV Office Visit (PARUL) -------- HORACE HENDERSON ([id number]) 1955 M Date Time Provider Department 07/03/25 12:00 PM PRATEEK MATOS During your visit today, we recorded the following information about you: Temperature Pulse Respiration Blood pressure 97.8 degrees 93/minute 22/minute 167/95 Weight 83 kg Prateek Matos APRN.CNP 07/03/2025 12:59 PM Signed [facility] Ihsan Henderson is a 70 year old male. [...] of care. This note was generated using [employer] software. It may contain errors in wording, punctuation, or spelling. Prateek Matos APRN.HORTENCIA History and Record Review Clinical information obtained from an independent historian. History obtained from or confirmed by: parent. External record(s) reviewed: prior outpatient record. Disposition The patient was discharged. OTC Medications were advised: Procedures Allergies As of Date: 07/03/2025 Noted Allergy Reaction LEVOFLOXACIN 06/01/2020 14 - Other: See Comments Comments: Tachycardia. Achilles tendonitis. Date Reviewed: 07/03/2025 Reviewed by: Prateek Matos APRN.ELEVATOR STARTER - Fully Assessed Reason for Visit: Pain [78] Cmt: R hip pain x 3 days, pain is increasing, pain with lifting leg, trouble with daily duties due to pain Primary Visit Diagnosis:Pain of right hip [M25.551] Order(s):XR HIP GENERAL 3V PELV/AP/LAT RIGHT [1562059] Order #: [id number] FUTURE diclofenac (VOLTAREN ARTHRITIS PAIN) 1 % [...] - rosu (more content not included)... Normal [facility] XR HIP 3V PELV+ AP/LAT RTon [...] Vascular calcifications. IMPRESSION: Moderate RIGHT hip osteoarthritis. Wall Insulation Sprayer: TIMOTEO Transcribe Date/Time: Jul 03 2025 12:42P Dictated by : TODD ZARATE DO This examination was interpreted and the report reviewed and electronically signed by: TODD ZARATE DO on Jul 03 2025 12:46PM EST [id number] Normal [facility] XR Pelvis and Hip - right AP and Lateral frogon 07-03-2025 IMPRESSION: Moderate RIGHT hip osteoarthritis. Wall Insulation Sprayer: TIMOTEO Transcribe Date/Time: Jul 03 2025 12:42P [...] spine. Vascular calcifications. DIVISION OF RADIOLOGY Provider, Jenni Morales - 07/03/2025 * * *Final Report* * [...] calcifications. IMPRESSION IMPRESSION: Moderate RIGHT hip osteoarthritis. Wall Insulation Sprayer: TIMOTEO Transcribe Date/Time: Jul 03 2025 12:42P Dictated by : TODD ZARATE DO This examination was interpreted and the report reviewed and electronically signed by: TODD ZARATE DO on Jul 03 2025 12:46PM EST [facility] Radiology Study observation (narrative) Dolly hernández [facility] XR Pelvis and Hip - right AP and Lateral frogOrdered By: Ccf Provider on 07-03-[address] [facility] [address] Lung Screeningon 06-14-[address] Lung Screening Normal [facility] CNOVon 05-28-2025 CNOV Office Visit (INTMWS ) -------- HORCAE HENDERSON ([id number]) 1955 Ihsan Date Time Provider Department 05/28/25 1:40 PM [...] PCP - General (Internal Medicine) Blanca Tilley, MELT SUPERVISOR.ELEVATOR STARTER as Javascript Ui Developer (Internal Medicine) Outside specialists seen: [place] [...] and lower legs for several months. His atmospheric drier tender sent off his toenail, but this came [...] Vaping stat (more content not included)... Normal [facility] Cardiology Visit Reporton Cardiology Visit Report Normal [facility] Bilirubin directOrdered By: Bhupendra Asif on 05-03-2025 Bilirubin.direct [Mass/Vol] 0.13 mg/dL Normal 0.00-0.30 [facility] Comment on above: Hemolysis present, R esults could be affected. Result Comment: Hemo lysis present, Results??could be affected.?? Performed By: #### L 500.3400, L500.4100 ####[facility] [address] [place], [place], [id number] Bilirubin, totalOrdered By: Bhupendra Asif on 05-03-2025 Bilirubin [Mass/Vol] 0.54 mg/dL Normal 0.00-1.30 [facility] Comment on above: Performed By: #### L 500.3400, L500.4100 ####[facility] [address] [place], [place], [address] Calculated very low density lipoprotein (VLDL) cholesterol measurementOrdered By: Bhupendra Asif on 05-03-2025 Calculated very low density lipoprotein (VLDL) cholesterol measurement 25 mg/dL 5-40 [facility] LDL calc ser/plasOrdered By: Bhupendra Asif on 05-03-2025 Cholesterol in LDL [Mass/Vol] 116 mg/dL Normal [facility] Comment on above: Ublqjkqwnp=183-069 m g/dL & Higher Vjxu=602 mg/dL or greater Result Comment: Bord jovclr=437-221 mg/dL Higher Vnss=456 mg/dL or greater Performed By: #### L 500.3400, L500.4100 ####[facility] [address] [place], [address] Lipid Profileon 05-03-2025 CHOL:HDL 3.50 Normal [facility] Comment on above: Performed By: #### L 500.3400, L500.4100 ####[facility] [address] [place], [address] Cholesterol in VLDL [Mass/Vol] 25 mg/dL Normal 5-40 [facility] Comment on above: Performed By: #### L 500.3400, L500.4100 ####[facility] [address] [place], [address] Liver Profileon 05-03-2025 ALK PHOS 85 U/L Normal 40-129 [facility] Comment on above: Performed By: #### L 500.3400, L500.4100 ####[facility] [address] [place], [address] T PROT 6.8 g/dL Normal 5.9-8.4 [facility] Comment on above: Performed By: #### L 500.3400, L500.4100 ####[facility] [address] [place], [address] Liver ProfileOrdered By: David Asif on 05-03-2025 AST [Catalytic activity/Vol] 26 U/L Normal <=37 [facility] Comment on above: Hemolysis present, R esults could be affected. Result Comment: Hemo lysis present, Results??could be affected.?? Performed By: #### L 500.3400, L500.4100 ####[facility] [address] [place], [address] Screening total cholesterol/ high density lipoprotein (HDL) cholesterol ratioOrdered By: Bhupendra Asif on 05-03-2025 Cholesterol.total/David sterol in HDL [Mass ratio] 3.50 {ratio} [facility] Serum globulin measurementOr dered By: Bhupendra Asif on 05-03-2025 Globulin (S) [Mass/Vol] 2.8 g/dL Normal 2.2-4.2 [facility] Comment on above: Performed By: #### L 500.3400, L500.4100 ####[facility] [address] [place], [place], [address] Serum or plasma alanine gomez otransferase (ALT) measurementOrdered By: Bhupendra Asif on 05-03-2025 ALT [Catalytic activity/Vol] 13 U/L Normal <=46 [facility] Comment on above: Performed By: #### L 500.3400, L500.4100 ####[facility] [address] [place], [address] Serum or plasma albumin jimbo urement (mass/volume)Ordered By: Bhupendra Asif on 05-03-2025 Albumin [Mass/Vol] 4.0 g/dL Normal 3.4-4.8 [facility] Comment on above: Performed By: #### L 500.3400, L500.4100 ####[facility] [address] [place], [address] Serum or plasma alkaline atif sphatase measurementOrdered By: Bhupendra Asif on 05-03-2025 ALP [Catalytic activity/Vol] 85 U/L 40-129 [facility] Serum or plasma cholesterol in HDL measurement (mass/volume)Ordered By: Bhupendra Asif on 05-03-2025 Cholesterol in HDL [Mass/Vol] 57 mg/dL Normal [facility] Comment on above: National Cholesterol Education Program (NCEP) guidelines:<40 mg/dL: Low HDL-cholesterol (major risk factor for CHD)>= 60 mg/dL: High HDL-cholesterol (negative risk factor for CHD)HDL-cholesterol is affected by a number of factors, e.g. smoking, exercise, hormones, sex and age. Result Comment: Karina onal Cholesterol Education Program (NCEP) guidelines:<40 mg/dL: Low HDL-cholesterol (major risk factor for CHD)>= 60 mg/dL: High HDL-cholesterol (negative risk factor forCHD)HDL-cholesterol is affected by a number of factors, e.g.smoking, exercise, hormones, sex and age. Performed By: #### L 500.3400, L500.4100 ####[facility] [address] [place], [place], [address] Serum or plasma cholesterol measurement (mass/volume)Ordered By: Bhupendra Asif on 05-03-2025 Cholesterol [Mass/Vol] 198 mg/dL Normal <=200 [facility] Comment on above: Cholesterol level, D esirable <200 mg/dLBorderline high cholesterol 200-239 mg/dLHigh cholesterol >=240 mg/dLRecommendations of the NCEP Adult Treatment Panel for the following risk-cutoff thresholds for the [place] population. Result Comment: Chol esterol level, Desirable <200 mg/dLBorderline high cholesterol 200-239 mg/dLHigh cholesterol >=240 mg/dLRecommendations of the NCEP Adult Treatment Panel for thefollowing risk-cutoff thresholds for the [place] Americanpopulation. Performed By: #### L 500.3400, L500.4100 ####[facility] [address] [place], [place], [id number] Total proteinOrdered By: David Asif on 05-03-2025 Protein [Mass/Vol] 6.8 g/dL 5.9-8.4 [facility] Triglycerides measurementOrd ered By: Bhupendra Asif on 05-03-2025 Triglyceride [Mass/Vol] 125 mg/dL Normal [facility] Comment on above: The drugs N-Acetylcy steine and Metamizole may falsely depress this assay. Normal range: <150 mg/dLBorderline High: 150-199 mg/dLHigh: 200-499 mg/dLVery High: >500 mg/dL Result Comment: The drugs N-Acetylcysteine and Metamizole may falselydepress this assay.Normal range: <150 mg/dLBorderline High: 150-199 mg/dLHigh: 200-499 mg/dLVery High: >500 mg/dL Performed By: #### L 500.3400, L500.4100 ####[facility] [address] [place], [address] Absolute lymphocyte countOrd ered By: Neptali Weirrosa on 02-14-2025 Lymphocytes Auto (Unsp spec) [#/Vol] 1.40 10*3/uL 0.83-4.51 [facility] Absolute neutrophil countOrd ered By: Neptali Weirrosa on 02-14-2025 Neutrophils (Bld) [#/Vol] 5.8 10*3/uL 2.0-7.7 [facility] Automated lymphocyte count a s percentage of total leukocytesOrdered By: Neptali Destinrosa on 02-14-2025 Lymphocytes/100 WBC Auto (Unsp spec) 17.6 % Low 19-41 [facility] Basophil percentageOrdered B y: Neptali Destinrosa on 02-14-2025 Basophils/100 WBC (Bld) 0.4 % 0-1 [facility] CBC W/Diff, Automatedon 01-28 Absolute Lymph 1.40 X10 3/uL Normal 0.83-4.51 [facility] Comment on above: Performed By: #### L 100.0100 ####[facility] [address] [place], [address] Absolute Neut 5.8 X10 3/uL Normal 2.0-7.7 [facility] Comment on above: Performed By: #### L 100.0100 ####[facility] [address] [place], [address] Basophils/100 WBC (Bld) 0.4 % Normal 0-1 [facility] Comment on above: Performed By: #### L 100.0100 ####[facility] [address] [place], [address] Eosinophils/100 WBC (Bld) 0.9 % Normal 0-5 [facility] Comment on above: Performed By: #### L 100.0100 ####[facility] [address] [place], [address] Erythrocyte distribution width (RBC) [Ratio] 13.2 % Normal 11.6-14.6 [facility] Comment on above: Performed By: #### L 100.0100 ####[facility] [address] [place], [address] Hematocrit (Bld) [Volume fraction] 43.8 % Normal 40-54 [facility] Comment on above: Performed By: #### L 100.0100 ####[facility] [address] [place], [address] Hemoglobin (Bld) [Mass/Vol] 15.0 g/dL Normal 13.0-16.5 [facility] Comment on above: Performed By: #### L 100.0100 ####[facility] [address] [place], [address] IG% 0.400 Normal 0.0-0.9 [facility] Comment on above: Result Comment: IG% - Immature Granulocytes (promyelocytes, myelocytes andmetamyelocytes) > 1% indicates that a LEFT SHIFT is Present. Performed By: #### L 100.0100 ####[facility] [address] [place], [address] Lymphocytes/100 WBC (Bld) 17.6 % Low 19-41 [facility] Comment on above: Performed By: #### L 100.0100 ####[facility] [address] [place], [address] MCH (RBC) [Entitic mass] 33.7 pg High 27.0-32.0 [facility] Comment on above: Performed By: #### L 100.0100 ####[facility] [address] [place], [address] MCHC (RBC) [Mass/Vol] 34.2 g/dL Normal 32-36 [facility] Comment on above: Performed By: #### L 100.0100 ####[facility] [address] [place], [address] MCV (RBC) [Entitic vol] 98.4 fL High 80-94 [facility] Comment on above: Performed By: #### L 100.0100 ####[facility] [address] [place], [address] Monocytes/100 WBC (Bld) 7.4 % Normal 0-10 [facility] Comment on above: Performed By: #### L 100.0100 ####[facility] [address] [place], [address] Neutrophils/100 WBC (Bld) 73.3 % High 47-70 [facility] Comment on above: Performed By: #### L 100.0100 ####[facility] [address] [place], [address] Nucleated RBC (Bld) [#/Vol] 0 10*3/uL Normal 0-5 [facility] Comment on above: Performed By: #### L 100.0100 ####[facility] [address] [place], [address] Platelet mean volume (Bld) [Entitic vol] 9.3 fL Normal 6.2-12.0 [facility] Comment on above: Performed By: #### L 100.0100 ####[facility] [address] [place], [address] Platelets (Bld) [#/Vol] 200 10*3/uL Normal 150-450 [facility] Comment on above: Performed By: #### L 100.0100 ####[facility] [address] [place], [address] RBC (Bld) [#/Vol] 4.45 10*6/uL Low 4.6-6.2 [facility] Comment on above: Performed By: #### L 100.0100 ####[facility] [address] [place], [address] RDW SD 48.0 fl High 35.1-43.9 [facility] Comment on above: Performed By: #### L 100.0100 ####[facility] [address] [place], [address] WBC (Bld) [#/Vol] 8.0 10*3/uL Normal 4.4-11.0 [facility] Comment on above: Performed By: #### L 100.0100 ####[facility] [address] [place], [address] Eosinophil percentageOrdered By: Neptali Orellana on 02-14-2025 Eosinophils/100 WBC (Bld) 0.9 % 0-5 [facility] Erythrocyte distribution wid th ratioOrdered By: Neptali Orellana on 02-14-2025 Erythrocyte distribution width (RBC) [Ratio] 13.2 % 11.6-14.6 [facility] Erythrocyte distribution wid th standard deviationOrdered By: Neptali Orellana on 02-14-2025 Erythrocyte distribution width (RBC) [Ratio] 48.0 fl High 35.1-43.9 [facility] Hematocrit Auto (Bld) [Volum e fraction]Ordered By: Neptali Orellana on 02-14-2025 Hematocrit (Bld) [Volume fraction] 43.8 % 40-54 [facility] Hemoglobin measurementOrdere d By: Neptali Orellana on 02-14-2025 Hemoglobin (Bld) [Mass/Vol] 15.0 g/dL 13.0-16.5 [facility] Immature granulocytes/100 WB C Auto (Bld)Ordered By: Neptali Orellana on 02-14-2025 Immature granulocytes/100 WBC (Bld) 0.400 % 0.0-0.9 [facility] Comment on above: IG% - Immature Granu locytes (promyelocytes, myelocytes and metamyelocytes) > 1% indicates that a LEFT SHIFT is Present. MCV (mean corpuscular volume ) determinationOrdered By: Neptali Orellana on 02-14-2025 MCV (RBC) [Entitic vol] 98.4 fL High 80-94 [facility] Mean corpuscular hemoglobin (MCH) determinationOrdered By: Neptali Orellana on 02-14-2025 MCH (RBC) [Entitic mass] 33.7 pg High 27.0-32.0 [facility] Mean corpuscular hemoglobin concentration (MCHC) determinationOrdered By: Neptali Orellana on 02-14-2025 MCHC (RBC) [Mass/Vol] 34.2 g/dL 32-36 [facility] Mean platelet volume determi nationOrdered By: Neptali Orellana on 02-14-2025 Platelet mean volume (Bld) [Entitic vol] 9.3 fL 6.2-12.0 [facility] Monocyte percentageOrdered B y: Neptali Orellana on 02-14-2025 Monocytes/100 WBC (Bld) 7.4 % 0-10 [facility] Neutrophil percentageOrdered By: Neptali Orellana on 02-14-2025 Neutrophils/100 WBC (Bld) 73.3 % High 47-70 [facility] Nucleated red blood cell per centageOrdered By: Neptali Orellana on 02-14-2025 Nucleated RBC/100 WBC (Bld) [Ratio] 0 % 0-5 [facility] Platelet countOrdered By: Sierra Orellana on 02-14-2025 Platelets (Bld) [#/Vol] 200 10*3/uL 150-450 [facility] RBC Auto (Bld) [#/Vol]Ordere d By: Neptali Orellana on 02-14-2025 RBC (Bld) [#/Vol] 4.45 10*6/uL Low 4.6-6.2 [facility] White blood cell (WBC) count Ordered By: Neptali Orellana on 02-14-2025 WBC (Bld) [#/Vol] 8.0 10*3/uL 4.4-11.0 [facility] Duplex ultrasound of carotid artery reportOrdered By: Salvador Kwok on 02-06-2025 Study report [facility] [address] [place], [place] [address] [address] Carotid Duplex Ultrasound 02/05/25 0958 MR#: [id number] Acct: [id number] Name: HORACE HENDERSON Rep #:[id number] : 1955 69 From: Salvador Hernández Attending Dr: RENEE Villagomez atus: REG CLI Ordering Dr: Bhupendra Asif Date: 02/05/25 Location: [facility] Sex: M C Admitted: Reason For Study [...] the left vertebral artery. Procedure Carotid Duplex 27464. This is a Carotid Duplex examination using B-mode, color flow and specral Doppler. Exam performed in department. VL/Carotid Duplex Ultrasound Interpretation Summary Mild (<50%) stenosis right extracranial internal carotid. Mild (<50%) stenosis left extracranial internal carotid. Patent and antegrade vertebrals bilaterally. Ordering Physician: Bhupendra Asif Referring Physician: George Vázquez M.D. Performed By: Jazmyn Darby, RVT 02/06/25736 Date _ Salvador Kwok MD CC: Dr. George Vázquez MD; RENEE Villagomez ~ Date Dictated: 02/05/2558 Date Transcribed: 02/06/25736 Wall Insulation Sprayer: Signed [facility] Work Phone: Carotid Duplex Ultrasoundon 02-05-2025 Carotid Duplex Ultrasound Normal [facility] Cardiology Visit Reporton Cardiology Visit Report Normal [facility] 12 Lead EKG performed by [facility] on 01-08-2025 12 Lead EKG performed by [facility] Normal [facility] Basic metabolic 2000 panelon 01-08-2025 Anion gap [Moles/Vol] 8 mmol/L Normal 8-15 [facility] Comment on above: Order Comment: Speci men Type: BLOOD SPECIMEN Ordering Facility: [facility] Address: [address] [place] [address] Performed By: #### 2 4321-2 #### [facility] CLIA [id number] [address] [place] [address] [place] [address] [place] Calcium [Mass/Vol] 10.2 mg/dL Normal 8.5-10.2 [facility] Comment on above: Order Comment: Speci men Type: BLOOD SPECIMEN Ordering Facility: [facility] Address: [address] [place] [address] Performed By: #### 2 4321-2 #### [facility] CLIA [id number] [address] [place], [place] [address] [place] Chloride [Moles/Vol] 99 mmol/L Normal 98-107 [facility] Comment on above: Order Comment: Speci men Type: BLOOD SPECIMEN Ordering Facility: [facility] Address: [address] [place] [address] Performed By: #### 2 4321-2 #### [facility] CLIA [id number] [address] [place] [address] [place] CO2 [Moles/Vol] 34 mmol/L High 22-30 [facility] Comment on above: Order Comment: Speci men Type: BLOOD SPECIMEN Ordering Facility: [facility] Address: [address] [place] [address] Performed By: #### 2 4321-2 #### [facility] CLIA [id number] [address] [place] [address] [place] Creatinine [Mass/Vol] 1.09 mg/dL Normal 0.73-1.22 [facility] Comment on above: Order Comment: Speci men Type: BLOOD SPECIMEN Ordering Facility: [facility] Address: [address] [place] [address] Performed By: #### 2 4321-2 #### [facility] CLIA [id number] [address] [place] [address] [place] Creatinine and Glomerular filtration rate.predicted panel (S/P/Bld) 73 mL/min/1.73m??? Normal >=60 [facility] Comment on above: Order Comment: Speci men Type: BLOOD SPECIMEN Ordering Facility: [facility] Address: [address], [place] [address] Result Comment: Shelli mated Glomerular Filtration Rate [...] actual GFR. Performed By: #### 2 4321-2 #### [facility] CLIA [id number] [address] [place] [address] [place] Glucose [Mass/Vol] 94 mg/dL Normal 74-99 [facility] Comment on above: Order Comment: Ashly oakley Type: BLOOD SPECIMEN Ordering Facility: [facility] Address: [address] [place] [address] Result Comment: The [place] Diabetes Association (ADA) provides guidance for cutoff [...] Standards of Medical Care in Diabetes 2016, [place] [employer] Association. Diabetes Care. 2016.39(Suppl 1). Performed By: #### 2 4321-2 #### [facility] CLIA [id number] [address] [place], [place] [address] [place] Potassium [Moles/Vol] 3.6 mmol/L Low 3.7-5.1 [facility] Comment on above: Order Comment: Ashly oakley Type: BLOOD SPECIMEN Ordering Facility: [facility] Address: [address] [place] [address] Performed By: #### 2 4321-2 #### [facility] CLIA [id number] [address] [place], [place] [address] [place] Sodium [Moles/Vol] 141 mmol/L Normal 136-144 [facility] Comment on above: Order Comment: Speci men Type: BLOOD SPECIMEN Ordering Facility: [facility] Address: [address] [place] [address] Performed By: #### 2 4321-2 #### [facility] CLIA [id number] [address] [place] [address] [place] Urea nitrogen [Mass/Vol] 13 mg/dL Normal 9-24 [facility] Comment on above: Order Comment: Speci men Type: BLOOD SPECIMEN Ordering Facility: [facility] Address: [address] [place] [address] Performed By: #### 2 4321-2 #### [facility] CLIA [id number] [address] [place] [address] [facility] CNOVon 01-08-2025 CNOV Office Visit (INTMWS ) -------- HORACE HENDERSON ([id number]) 1955 M Date Time Provider Department 01/08/25 3:40 PM GEORGE VÁZQUEZ INTMWS During your visit today, we recorded the following information about you: Temperature Pulse Respiration Blood pressure 97.9 degrees 110/minute 20/minute 130/78 Weight 79.5 kg George Vázquez MD 01/08/2025 4:22 PM Signed This note was created using [employer]. Subjective Horace Henderson is a 69 year old male. He's had a productive cough with green phlegm, and increased dyspnea on exertion for the past 1.5 to 2 weeks. He had no upper respiratory infection symptoms, fever, or chills. He saw his metal furniture glazier Dr. Malave today, who ordered a chest [...] Effort: Pr (more content not included)... [facility] (INTMWS[facility] -------- HORACE HENDERSON ([id number]) 1955 M Date Time Provider Department 01/08/25 GEORGE VÁZQUEZ During your visit today, we recorded the following information about you: Ihsan Christensen, RN 01/08/2025 11:24 AM Signed Patient reports he saw Dr. Malave at [facility] today. Dr. Malave did a EKG and CXR. Reports Dr. Malave advised him he was going to send CXR to pcp as it appears pt may have pneumonia and need an AB. Pt reports he has productive green cough, and SOB. No other symptoms. Please advise patient. [phone] Pat Richey LPN 01/08/2025 11:45 AM Signed [...] Encounter Status:Closed by DODIE SARAH on 01/08/25 Normal [facility] Cardiology Visit Reporton Cardiology Visit Report Normal [facility] Chest PA and Lateralon 01-08 Chest PA and Lateral Normal [facility] BNP (brain natriuretic pepti de measurement)Ordered By: Neptali Orellana on 11-27-2024 Natriuretic peptide B (Bld) [Mass/Vol] 118.8 pg/mL High 0-100 [facility] BNP,B-Type NATRIURETIC PEPTI Ebony 11-27-2024 Natriuretic peptide B (Bld) [Mass/Vol] 118.8 pg/mL High 0-100 [facility] Comment on above: Performed By: #### L 500.2500, L503.6620 ####[facility] [address] [place], [place], [address] Basic Metabolic Profile (BMP )on 11-27-2024 BUN/CRE 19.6 RATIO Normal 10-20 [facility] Comment on above: Performed By: #### L 500.2500, L503.6620 ####[facility] [address] [place], [address] CA,Total 9.0 mg/dL Normal 8.5-10.1 [facility] Comment on above: Performed By: #### L 500.2500, L503.6620 ####[facility] [address] [place], [address] Chloride [Moles/Vol] 103 mmol/L Normal 98-107 [facility] Comment on above: Performed By: #### L 500.2500, L503.6620 ####[facility] [address] [place], [address] CO2 [Moles/Vol] 28.0 mmol/L Normal 21.0-32.0 [facility] Comment on above: Performed By: #### L 500.2500, L503.6620 ####[facility] [address] [place], [address] Creatinine [Mass/Vol] 1.07 mg/dL Normal 0.70-1.30 [facility] Comment on above: Result Comment: The validity of the calculated GFR GFRAA in patients over70 years has not been determined. Clinical correlation isessential. Performed By: #### L 500.2500, L503.6620 ####[facility] [address] [place], [address] EST GFR - AA 88 mL/min Normal >60 [facility] Comment on above: Result Comment: Afri can [place]ican GFR Calc Performed By: #### L 500.2500, L503.6620 ####[facility] [address] [place], [address] GAP 6 Normal 5-15 [facility] Comment on above: Performed By: #### L 500.2500, L503.6620 ####[facility] [address] [place], [address] GFR/1.73 sq M.predicted among non-blacks MDRD (S/P/Bld) [Vol rate/Area] 73 mL/min/{1.73_m2} Normal >60 [facility] Comment on above: Result Comment: Non- GFR Calc Performed By: #### L 500.2500, L503.6620 ####[facility] [address] [place], [address] Glucose [Mass/Vol] 112 mg/dL High 74-106 [facility] Comment on above: Result Comment: Fast ing Glucose result from 100 to 125 mg/dLsuggests IMPAIRED HOMEOSTASIS per A.D.A. criteria. Performed By: #### L 500.2500, L503.6620 ####[facility] [address] [place], [address] Potassium [Moles/Vol] 3.9 mmol/L Normal 3.5-5.1 [facility] Comment on above: Performed By: #### L 500.2500, L503.6620 ####[facility] [address] [place], [address] Sodium [Moles/Vol] 137 mmol/L Normal 136-145 [facility] Comment on above: Performed By: #### L 500.2500, L503.6620 ####[facility] [address] [place], [address] Urea nitrogen [Mass/Vol] 21 mg/dL High 7-18 [facility] Comment on above: Performed By: #### L 500.2500, L503.6620 ####[facility] [address] [place], [address] Blood urea nitrogen (BUN)/cr eatinine ratioOrdered By: Neptali Orellana on 11-27-2024 Urea nitrogen/Creatinine [Mass ratio] 19.6 mg/mg 10-20 [facility] CTA Chest W/WO Contraston CTA Chest W/WO Contrast Normal [facility] Carbon dioxide measurementOr dered By: Neptali Orellana on 11-27-2024 CO2 [Moles/Vol] 28.0 mmol/L 21.0-32.0 [facility] Chloride measurementOrdered By: Neptali Orellana on 11-27-2024 Chloride [Moles/Vol] 103 mmol/L 98-107 [facility] Estimated glomerular filtrat ion rate (GFR) AmericanOrdered By: Neptali Orellana on 11-27-2024 Estimated GFR (MDRD) Amer 88 mL/min >60 [facility] Comment on above: GFR Calc Glomerular filtration rate ( GFR) estimationOrdered By: Neptali Orellana on 11-27-2024 Estimated GFR (MDRD) Non-Af Amer 73 mL/min >60 [facility] Comment on above: Non- GFR Calc Glucose measurementOrdered B y: Neptali Orellana on 11-27-2024 Glucose [Mass/Vol] 112 mg/dL High 74-106 [facility] Comment on above: Fasting Glucose resu lt from 100 to 125 mg/dL suggests IMPAIRED HOMEOSTASIS per A.D.A. criteria. Potassium measurementOrdered By: Neptali Orellana on 11-27-2024 Potassium [Moles/Vol] 3.9 mmol/L 3.5-5.1 [facility] Serum anion gap measurementO rdered By: Neptali Orellana on 11-27-2024 Anion gap [Moles/Vol] 6 mmol/L 5-15 [facility] Serum or plasma calcium jmibo urement (mass/volume)Ordered By: Neptali Orellana on 11-27-2024 Calcium [Mass/Vol] 9.0 mg/dL 8.5-10.1 [facility] Serum or plasma creatinine m easurement (mass/volume)Ordered By: Neptali Orellana on 11-27-2024 Creatinine [Mass/Vol] 1.07 mg/dL 0.70-1.30 [facility] Comment on above: The validity of the calculated GFR & GFRAA in patients over 70 years has not been determined. Clinical correlation is essential. Serum or plasma urea nitroge n measurement (mass/volume)Ordered By: Neptali Orellana on 11-27-2024 Urea nitrogen [Mass/Vol] 21 mg/dL High 7-18 [facility] Sodium levelOrdered By: Braxton Orellana on 11-27-2024 Sodium [Moles/Vol] 137 mmol/L 136-145 [facility] Absolute neutrophil countOrd ered By: Neptali Orellana on 11-26-2024 Neutrophils (Bld) [#/Vol] 5.3 10*3/uL 2.0-7.7 [facility] Basophil percentageOrdered B y: Neptali Orellana on 11-26-2024 Basophils/100 WBC (Bld) 0.4 % 0-1 [facility] CBC W/Diff, Automatedon 10-31 Absolute Lymph 2.06 X10 3/uL Normal 0.83-4.51 [facility] Comment on above: Performed By: #### L 100.0100 ####[facility] [address] [place], [address] Absolute Neut 5.3 X10 3/uL Normal 2.0-7.7 [facility] Comment on above: Performed By: #### L 100.0100 ####[facility] [address] [place], [address] Basophils/100 WBC (Bld) 0.4 % Normal 0-1 [facility] Comment on above: Performed By: #### L 100.0100 ####[facility] [address] [place], [address] Eosinophils/100 WBC (Bld) 0.2 % Normal 0-5 [facility] Comment on above: Performed By: #### L 100.0100 ####[facility] [address] [place], [address] Erythrocyte distribution width (RBC) [Ratio] 15.2 % High 11.6-14.6 [facility] Comment on above: Performed By: #### L 100.0100 ####[facility] [address] [place], [address] Hematocrit (Bld) [Volume fraction] 40.7 % Normal 40-54 [facility] Comment on above: Performed By: #### L 100.0100 ####[facility] [address] [place], [address] Hemoglobin (Bld) [Mass/Vol] 13.8 g/dL Normal 13.0-16.5 [facility] Comment on above: Performed By: #### L 100.0100 ####[facility] [address] [place], [address] IG% 0.700 Normal 0.0-0.9 [facility] Comment on above: Result Comment: IG% - Immature Granulocytes (promyelocytes, myelocytes andmetamyelocytes) > 1% indicates that a LEFT SHIFT is Present. Performed By: #### L 100.0100 ####[facility] [address] [place], [address] Lymphocytes/100 WBC (Bld) 24.7 % Normal 19-41 [facility] Comment on above: Performed By: #### L 100.0100 ####[facility] [address] [place], [address] MCH (RBC) [Entitic mass] 32.4 pg High 27.0-32.0 [facility] Comment on above: Performed By: #### L 100.0100 ####[facility] [address] [place], [address] MCHC (RBC) [Mass/Vol] 33.9 g/dL Normal 32-36 [facility] Comment on above: Performed By: #### L 100.0100 ####[facility] [address] [place], [address] MCV (RBC) [Entitic vol] 95.5 fL High 80-94 [facility] Comment on above: Performed By: #### L 100.0100 ####[facility] [address] [place], [address] Monocytes/100 WBC (Bld) 10.1 % High 0-10 [facility] Comment on above: Performed By: #### L 100.0100 ####[facility] [address] [place], [address] Neutrophils/100 WBC (Bld) 63.9 % Normal 47-70 [facility] Comment on above: Performed By: #### L 100.0100 ####[facility] [address] [place], [address] Nucleated RBC (Bld) [#/Vol] 0 10*3/uL Normal 0-5 [facility] Comment on above: Performed By: #### L 100.0100 ####[facility] [address] [place], [address] Platelet mean volume (Bld) [Entitic vol] 9.7 fL Normal 6.2-12.0 [facility] Comment on above: Performed By: #### L 100.0100 ####[facility] [address] [place], [address] Platelets (Bld) [#/Vol] 205 10*3/uL Normal 150-450 [facility] Comment on above: Performed By: #### L 100.0100 ####[facility] [address] [place], [address] RBC (Bld) [#/Vol] 4.26 10*6/uL Low 4.6-6.2 [facility] Comment on above: Performed By: #### L 100.0100 ####[facility] [address] [place], [address] RDW SD 52.5 fl High 35.1-43.9 [facility] Comment on above: Performed By: #### L 100.0100 ####[facility] [address] [place], [address] WBC (Bld) [#/Vol] 8.3 10*3/uL Normal 4.4-11.0 [facility] Comment on above: Performed By: #### L 100.0100 ####[facility] [address] [place], [place], [address] D-Dimer Quantitative (DVT/PE )on 11-26-2024 D-DIMER QUANT 0.66 FEU/ug/m Invalid Interpretation Code 0.27-0.49 [facility] Comment on above: Result Comment: D-Di krissy ELEVATED (>0.49): Additional studies and clinicalassessments are indicated to conclude diagnosis of:Deep Vein Thrombosis (DVT) or Pulmonary Embolism (PE)CRITICAL VALUE CALLED TO JACQUELINE ROMAN11/26/24 1109 Kate Havelencho.RESULTS READ BACK BY SAME. Performed By: #### L 300.8000 ####[facility] [address] [place], [place], [address] D-dimer measurement for deep venous thrombosisOrdered By: Carrillo Malave on 11-26-2024 D-Dimer Quantitative (PE/DVT) 0.66 FEU/ug/m High 0.27-0.49 [facility] Comment on above: D-Dimer ELEVATED (>0 .49): Additional studies and clinicalassessments are indicated to conclude diagnosis of:Deep Vein Thrombosis (DVT) or Pulmonary Embolism (PE)CRITICAL VALUE CALLED TO JACQUELINE BURNS11/26/24 1109 Kate [place].RESULTS READ BACK BY SAME. Eosinophil percentageOrdered By: Neptali Orellana on 11-26-2024 Eosinophils/100 WBC (Bld) 0.2 % 0-5 [facility] Erythrocyte distribution wid th ratioOrdered By: Neptali Orellana on 11-26-2024 Erythrocyte distribution width (RBC) [Ratio] 15.2 % High 11.6-14.6 [facility] Erythrocyte distribution wid th standard deviationOrdered By: Neptali Orellana on 11-26-2024 Erythrocyte distribution width (RBC) [Entitic vol] 52.5 fL High 35.1-43.9 [facility] Hematocrit Auto (Bld) [Volum e fraction]Ordered By: Neptali Orellana on 11-26-2024 Hematocrit (Bld) [Volume fraction] 40.7 % 40-54 [facility] Hemoglobin measurementOrdere d By: Neptali Orellana on 11-26-2024 Hemoglobin (Bld) [Mass/Vol] 13.8 g/dL 13.0-16.5 [facility] Immature granulocytes/100 WB C Auto (Bld)Ordered By: Neptali Orellana on 11-26-2024 Immature granulocytes/100 WBC (Bld) 0.700 % 0.0-0.9 [facility] Comment on above: IG% - Immature Granu locytes (promyelocytes, myelocytes and metamyelocytes) > 1% indicates that a LEFT SHIFT is Present. Lymphocytes Auto (Unsp spec) [#/Vol]Ordered By: Neptali Orellana on 11-26-2024 Lymphocytes (Bld) [#/Vol] 2.06 10*3/uL 0.83-4.51 [facility] General Lymphocytes/100 WBC Auto (Un sp spec)Ordered By: Neptali Orellana on 11-26-2024 Lymphocytes/100 WBC (Bld) 24.7 % 19-41 [facility] MCV (mean corpuscular volume ) determinationOrdered By: Neptali Orellana on 11-26-2024 MCV (RBC) [Entitic vol] 95.5 fL High 80-94 [facility] Mean corpuscular hemoglobin (MCH) determinationOrdered By: Neptali Orellana on 11-26-2024 MCH (RBC) [Entitic mass] 32.4 pg High 27.0-32.0 [facility] Mean corpuscular hemoglobin concentration (MCHC) determinationOrdered By: Neptali Orellana on 11-26-2024 MCHC (RBC) [Mass/Vol] 33.9 g/dL 32-36 [facility] Mean platelet volume determi nationOrdered By: Neptali Orellana on 11-26-2024 Platelet mean volume (Bld) [Entitic vol] 9.7 fL 6.2-12.0 [facility] Monocyte percentageOrdered B y: Neptali Orellana on 11-26-2024 Monocytes/100 WBC (Bld) 10.1 % High 0-10 [facility] Neutrophil percentageOrdered By: Neptali Orellana on 11-26-2024 Neutrophils/100 WBC (Bld) 63.9 % 47-70 [facility] Nucleated red blood cell per centageOrdered By: Neptali Orellana on 11-26-2024 Nucleated RBC/100 WBC (Bld) [Ratio] 0 % 0-5 [facility] Platelet countOrdered By: Sierra Orellana on 11-26-2024 Platelets (Bld) [#/Vol] 205 10*3/uL 150-450 [facility] RBC Auto (Bld) [#/Vol]Ordere d By: Neptali Orellana on 11-26-2024 RBC (Bld) [#/Vol] 4.26 10*6/uL Low 4.6-6.2 [facility] White blood cell (WBC) count Ordered By: Neptali Orellana on 11-26-2024 WBC (Bld) [#/Vol] 8.3 10*3/uL 4.4-11.0 [facility] 6 Minute Walk Teston 025 6 Minute Walk Test Normal [facility] Bilirubin directOrdered By: Carrillo Malave on 11-06-2024 Bilirubin.direct [Mass/Vol] 0.22 mg/dL 0.00-0.30 [facility] Bilirubin, totalOrdered By: Carrillo Malave on 11-06-2024 Bilirubin [Mass/Vol] 0.60 mg/dL 0.20-1.00 [facility] Comment on above: For patients on eltr ombopag therapy, use of Dimension [place] TBIL is not recommended. High density lipoprotein (HD L) measurementOrdered By: Carrillo Malave on 11-06-2024 Cholesterol in HDL [Mass/Vol] 98 mg/dL >40 [facility] Comment on above: The drugs N-Acetylcy steine and Metamizole may falsely depress this assay. Reference Range HDL <40 mg/dL Low HDL Cholesterol HDL >or= 60 mg/dL High HDL Cholesterol Laboratory - Chemistry and C hemistry - challengeOrdered By: Carrillo Malave on 11-06-2024 AST [Catalytic activity/Vol] 25 U/L 15-37 [facility] Lipid Profileon 11-06-2024 Cholesterol [Mass/Vol] 143 mg/dL Normal 200 [facility] Comment on above: Result Comment: <200 mg/dL Desirable 200-240 mg/dL Borderline >240 mg/dL High Risk Performed By: #### L 501.9520, L500.3400, L500.4100 ####[facility] [address] [place], [address] Cholesterol in HDL [Mass/Vol] 98 mg/dL Normal [facility] Comment on above: Result Comment: The drugs N-Acetylcysteine and Metamizole may falselydepress this assay. Reference Range HDL <40 mg/dL Low HDL Cholesterol HDL >or= 60 mg/dL High HDL Cholesterol Performed By: #### L 501.9520, L500.3400, L500.4100 ####[facility] [address] [place], [address] Cholesterol in LDL [Mass/Vol] 28 mg/dL Normal 0-130 [facility] Comment on above: Performed By: #### L 501.9520, L500.3400, L500.4100 ####[facility] [address] [place], [address] Cholesterol in VLDL [Mass/Vol] 17 mg/dL Normal 5-40 [facility] Comment on above: Performed By: #### L 501.9520, L500.3400, L500.4100 ####[facility] [address] [place], [address] Triglyceride [Mass/Vol] 86 mg/dL Normal [facility] Comment on above: Result Comment: The drugs N-Acetylcysteine and Metamizole may falselydepress this assay.Serum Triglycerides Reference Interval Normal <150 mg/dL Borderline high 150 - 199 mg/dL High 200 - 499 mg/dL Very High > or = 500 mg/dL Performed By: #### L 501.9520, L500.3400, L500.4100 ####[facility] [address] [place], [address] Liver Profileon 11-06-2024 Albumin [Mass/Vol] 3.2 g/dL Normal 3.2-5.0 [facility] Comment on above: Performed By: #### L 501.9520, L500.3400, L500.4100 ####[facility] [address] [place], [address] ALK P 67 U/L Normal 45-117 [facility] Comment on above: Performed By: #### L 501.9520, L500.3400, L500.4100 ####[facility] [address] [place], [address] ALT [Catalytic activity/Vol] 31 U/L Normal 16-61 [facility] Comment on above: Performed By: #### L 501.9520, L500.3400, L500.4100 ####[facility] [address] [place], [address] AST [Catalytic activity/Vol] 25 U/L Normal 15-37 [facility] Comment on above: Performed By: #### L 501.9520, L500.3400, L500.4100 ####[facility] [address] [place], [address] Bilirubin [Mass/Vol] 0.60 mg/dL Normal 0.20-1.00 [facility] Comment on above: Result Comment: For patients on eltrombopag therapy, use of Dimension [place] TBIL is not recommended. Performed By: #### L 501.9520, L500.3400, L500.4100 ####[facility] [address] [place], [address] Bilirubin.direct [Mass/Vol] 0.22 mg/dL Normal 0.00-0.30 [facility] Comment on above: Performed By: #### L 501.9520, L500.3400, L500.4100 ####[facility] [address] [place], [address] Globulin (S) [Mass/Vol] 3.1 g/dL Normal 2.2-4.2 [facility] Comment on above: Performed By: #### L 501.9520, L500.3400, L500.4100 ####[facility] [address] [place], [place], [id number] T PROT 6.3 g/dL Low 6.4-8.2 [facility] Comment on above: Performed By: #### L 501.9520, L500.3400, L500.4100 ####[facility] [address] [place], [place], [id number] Low density lipoprotein (LDL ) cholesterol measurementOrdered By: Carrillo Malave on 11-06-2024 Cholesterol in LDL [Mass/Vol] 28 mg/dL 0-130 [facility] Serum globulin measurementOr dered By: Carrillo Malave on 11-06-2024 Globulin (S) [Mass/Vol] 3.1 g/dL 2.2-4.2 [facility] Serum or plasma alanine gomez otransferase (ALT) measurementOrdered By: Carrillo Malave on 11-06-2024 ALT [Catalytic activity/Vol] 31 U/L 16-61 [facility] Serum or plasma albumin jimbo urement (mass/volume)Ordered By: Carrillo Malave on 11-06-2024 Albumin [Mass/Vol] 3.2 g/dL 3.2-5.0 [facility] Serum or plasma alkaline atif sphatase measurementOrdered By: Carrillo Malave on 11-06-2024 ALP [Catalytic activity/Vol] 67 U/L 45-117 [facility] Serum or plasma cholesterol measurement (mass/volume)Ordered By: Carrillo Malave on 11-06-2024 Cholesterol [Mass/Vol] 143 mg/dL <200 [facility] Comment on above: <200 mg/dL Desirable 200-240 mg/dL Borderline >240 mg/dL High Risk TSH QnOrdered By: Carrillo daley on 11-06-2024 Thyroid Stimulating Hormone (TSH) 1.320 uIU/mL 0.358-3.740 [facility] Thyroid Stim Hormone (TSH)on 11-06-2024 TSH 1.320 uIU/mL Normal 0.358-3.740 [facility] Comment on above: Performed By: #### L 501.9520, L500.3400, L500.4100 ####[facility] [address] [place], [address] Total proteinOrdered By: Randy Malave on 11-06-2024 Protein [Mass/Vol] 6.3 g/dL Low 6.4-8.2 [facility] Triglycerides measurementOrd ered By: Carrillo Malave on 11-06-2024 Triglyceride [Mass/Vol] 86 mg/dL <199 [facility] Comment on above: The drugs N-Acetylcy steine and Metamizole may falsely depress this assay.Serum Triglycerides Reference Interval Normal <150 mg/dL Borderline high 150 - 199 mg/dL High 200 - 499 mg/dL Very High > or = 500 mg/dL Very low density lipoprotein (VLDL) cholesterol measurementOrdered By: Carrillo Malave on 11-06-2024 VLDL Cholesterol 17 mg/dL 5-40 [facility] 12 Lead EKG performed by BMS on 11-05-2024 12 Lead EKG performed by BMS Normal [facility] Cardiology Visit Reporton Cardiology Visit Report Normal [facility] Basic Metabolic Profile (BMP )on 10-31-2024 BUN Normal 7-18 [facility] Comment on above: Result Comment: Canc elled via OM: Order cancelled - Patient discharged Performed By: #### L 500.2500 ####[facility] [address] [place], [address] BUN/CRE Normal 10-20 [facility] Comment on above: Result Comment: Canc elled via OM: Order cancelled - Patient discharged Performed By: #### L 500.2500 ####[facility] [address] [place], [address] CA,Total Normal 8.5-10.1 [facility] Comment on above: Result Comment: Canc elled via OM: Order cancelled - Patient discharged Performed By: #### L 500.2500 ####[facility] [address] [place], [address] CL Normal 98-107 [facility] Comment on above: Result Comment: Canc elled via OM: Order cancelled - Patient discharged Performed By: #### L 500.2500 ####[facility] [address] [place], [address] CO2 Normal 21.0-32.0 [facility] Comment on above: Result Comment: Canc elled via OM: Order cancelled - Patient discharged Performed By: #### L 500.2500 ####[facility] [address] [place], [address] CREAT,SERUM Normal 0.70-1.30 [facility] Comment on above: Result Comment: Canc elled via OM: Order cancelled - Patient discharged Performed By: #### L 500.2500 ####[facility] [address] [place], [address] EST GFR Normal >60 [facility] Comment on above: Result Comment: Canc elled via OM: Order cancelled - Patient discharged Performed By: #### L 500.2500 ####[facility] [address] [place], [address] EST GFR - AA Normal >60 [facility] Comment on above: Result Comment: Canc elled via OM: Order cancelled - Patient discharged Performed By: #### L 500.2500 ####[facility] [address] [place], [address] GAP Normal 5-15 [facility] Comment on above: Result Comment: Canc elled via OM: Order cancelled - Patient discharged Performed By: #### L 500.2500 ####[facility] [address] [place], [address] GLU Normal 74-106 [facility] Comment on above: Result Comment: Canc elled via OM: Order cancelled - Patient discharged Performed By: #### L 500.2500 ####[facility] [address] [place], [address] Potassium Normal 3.5-5.1 [facility] Comment on above: Result Comment: Canc elled via OM: Order cancelled - Patient discharged Performed By: #### L 500.2500 ####[facility] [address] [place], [address] Basic Metabolic Profile (BMP) Normal 136-145 [facility] Comment on above: Result Comment: Canc elled via OM: Order cancelled - Patient discharged Performed By: #### L 500.2500 ####[facility] [address] [place], [address] Basic Metabolic Profile (BMP )on 10-30-2024 BUN Normal 7-18 [facility] Comment on above: Result Comment: Canc elled via OM: Order cancelled - Patient discharged Performed By: #### L 500.2500 ####[facility] [address] [place], [address] BUN/CRE Normal 10-20 [facility] Comment on above: Result Comment: Canc elled via OM: Order cancelled - Patient discharged Performed By: #### L 500.2500 ####[facility] [address] [place], [address] CA,Total Normal 8.5-10.1 [facility] Comment on above: Result Comment: Canc elled via OM: Order cancelled - Patient discharged Performed By: #### L 500.2500 ####[facility] [address] [place], [address] CL Normal 98-107 [facility] Comment on above: Result Comment: Canc elled via OM: Order cancelled - Patient discharged Performed By: #### L 500.2500 ####[facility] [address] [place], [address] CO2 Normal 21.0-32.0 [facility] Comment on above: Result Comment: Canc elled via OM: Order cancelled - Patient discharged Performed By: #### L 500.2500 ####[facility] [address] [place], [address] CREAT,SERUM Normal 0.70-1.30 [facility] Comment on above: Result Comment: Canc elled via OM: Order cancelled - Patient discharged Performed By: #### L 500.2500 ####[facility] [address] [place], [address] EST GFR Normal >60 [facility] Comment on above: Result Comment: Canc elled via OM: Order cancelled - Patient discharged Performed By: #### L 500.2500 ####[facility] [address] [place], [address] EST GFR - AA Normal >60 [facility] Comment on above: Result Comment: Canc elled via OM: Order cancelled - Patient discharged Performed By: #### L 500.2500 ####[facility] [address] [place], [address] GAP Normal 5-15 [facility] Comment on above: Result Comment: Canc elled via OM: Order cancelled - Patient discharged Performed By: #### L 500.2500 ####[facility] [address] [place], [address] GLU Normal 74-106 [facility] Comment on above: Result Comment: Canc elled via OM: Order cancelled - Patient discharged Performed By: #### L 500.2500 ####[facility] [address] [place], [address] Potassium Normal 3.5-5.1 [facility] Comment on above: Result Comment: Canc elled via OM: Order cancelled - Patient discharged Performed By: #### L 500.2500 ####[facility] [address] [place], [address] Basic Metabolic Profile (BMP) Normal 136-145 [facility] Comment on above: Result Comment: Canc elled via OM: Order cancelled - Patient discharged Performed By: #### L 500.2500 ####[facility] [address] [place], [address] Basic Metabolic Profile (BMP )on 10-29-2024 BUN Normal 7-18 [facility] Comment on above: Result Comment: Canc elled via OM: Order cancelled - Patient discharged Performed By: #### L 500.2500 ####[facility] [address] [place], [address] BUN/CRE Normal 10-20 [facility] Comment on above: Result Comment: Canc elled via OM: Order cancelled - Patient discharged Performed By: #### L 500.2500 ####[facility] [address] [place], [address] CA,Total Normal 8.5-10.1 [facility] Comment on above: Result Comment: Canc elled via OM: Order cancelled - Patient discharged Performed By: #### L 500.2500 ####[facility] [address] [place], [address] CL Normal 98-107 [facility] Comment on above: Result Comment: Canc elled via OM: Order cancelled - Patient discharged Performed By: #### L 500.2500 ####[facility] [address] [place], [address] CO2 Normal 21.0-32.0 [facility] Comment on above: Result Comment: Canc elled via OM: Order cancelled - Patient discharged Performed By: #### L 500.2500 ####[facility] [address] [place], [address] CREAT,SERUM Normal 0.70-1.30 [facility] Comment on above: Result Comment: Canc elled via OM: Order cancelled - Patient discharged Performed By: #### L 500.2500 ####[facility] [address] [place], [address] EST GFR Normal >60 [facility] Comment on above: Result Comment: Canc elled via OM: Order cancelled - Patient discharged Performed By: #### L 500.2500 ####[facility] [address] [place], [address] EST GFR - AA Normal >60 [facility] Comment on above: Result Comment: Canc elled via OM: Order cancelled - Patient discharged Performed By: #### L 500.2500 ####[facility] [address] [place], [address] GAP Normal 5-15 [facility] Comment on above: Result Comment: Canc elled via OM: Order cancelled - Patient discharged Performed By: #### L 500.2500 ####[facility] [address] [place], [address] GLU Normal 74-106 [facility] Comment on above: Result Comment: Canc elled via OM: Order cancelled - Patient discharged Performed By: #### L 500.2500 ####[facility] [address] [place], [address] Potassium Normal 3.5-5.1 [facility] Comment on above: Result Comment: Canc elled via OM: Order cancelled - Patient discharged Performed By: #### L 500.2500 ####[facility] [address] [place], [address] Basic Metabolic Profile (BMP) Normal 136-145 [facility] Comment on above: Result Comment: Canc elled via OM: Order cancelled - Patient discharged Performed By: #### L 500.2500 ####[facility] [address] [place], [address] Basic Metabolic Profile (BMP )on 10-28-2024 BUN/CRE 12.8 RATIO Normal 10-20 [facility] Comment on above: Performed By: #### L 100.0500, L500.2500 ####[facility] [address] [place], [address] CA,Total 8.9 mg/dL Normal 8.5-10.1 [facility] Comment on above: Performed By: #### L 100.0500, L500.2500 ####[facility] [address] [place], [address] Chloride [Moles/Vol] 104 mmol/L Normal 98-107 [facility] Comment on above: Performed By: #### L 100.0500, L500.2500 ####[facility] [address] [place], [address] CO2 [Moles/Vol] 30.0 mmol/L Normal 21.0-32.0 [facility] Comment on above: Performed By: #### L 100.0500, L500.2500 ####[facility] [address] [place], [address] Creatinine [Mass/Vol] 2.03 mg/dL High 0.70-1.30 [facility] Comment on above: Result Comment: The validity of the calculated GFR GFRAA in patients over70 years has not been determined. Clinical correlation isessential. Performed By: #### L 100.0500, L500.2500 ####[facility] [address] [place], [address] ECRCL 34.51 ml/min Normal [facility] Comment on above: Performed By: #### L 100.0500, L500.2500 ####[facility] [address] [place], [address] EST GFR - AA 42 mL/min Low >60 [facility] Comment on above: Result Comment: Afri can Jamaican GFR Calc Performed By: #### L 100.0500, L500.2500 ####[facility] [address] [place], [address] GAP 3 Low 5-15 [facility] Comment on above: Performed By: #### L 100.0500, L500.2500 ####[facility] [address] [place], [address] GFR/1.73 sq M.predicted among non-blacks MDRD (S/P/Bld) [Vol rate/Area] 35 mL/min/{1.73_m2} Low >60 [facility] Comment on above: Result Comment: Non- GFR Calc Performed By: #### L 100.0500, L500.2500 ####[facility] [address] [place], [address] Glucose [Mass/Vol] 135 mg/dL High 74-106 [facility] Comment on above: Result Comment: Fast ing Glucose result greater than or equal to 126 mg/dLsuggests DIABETES MELLITUS per A.D.A. criteria. Performed By: #### L 100.0500, L500.2500 ####[facility] [address] [place], [address] Potassium [Moles/Vol] 3.0 mmol/L Low 3.5-5.1 [facility] Comment on above: Performed By: #### L 100.0500, L500.2500 ####[facility] [address] [place], [address] Sodium [Moles/Vol] 138 mmol/L Normal 136-145 [facility] Comment on above: Performed By: #### L 100.0500, L500.2500 ####[facility] [address] [place], [address] Urea nitrogen [Mass/Vol] 26 mg/dL High 7-18 [facility] Comment on above: Performed By: #### L 100.0500, L500.2500 ####[facility] [address] [place], [address] Blood urea nitrogen (BUN)/cr eatinine ratioOrdered By: Vicente Andrews on 10-28-2024 Urea nitrogen/Creatinine [Mass ratio] 12.8 mg/mg 10-20 [facility] CBC-Complete Blood Cnt No Di brandonon 10-28-2024 Erythrocyte distribution width (RBC) [Ratio] 13.5 % Normal 11.6-14.6 [facility] Comment on above: Performed By: #### L 100.0500, L500.2500 ####[facility] [address] [place], [address] Hematocrit (Bld) [Volume fraction] 39.4 % Low 40-54 [facility] Comment on above: Performed By: #### L 100.0500, L500.2500 ####[facility] [address] [place], [address] Hemoglobin (Bld) [Mass/Vol] 13.4 g/dL Normal 13.0-16.5 [facility] Comment on above: Performed By: #### L 100.0500, L500.2500 ####[facility] [address] [place], [address] MCH (RBC) [Entitic mass] 32.0 pg Normal 27.0-32.0 [facility] Comment on above: Performed By: #### L 100.0500, L500.2500 ####[facility] [address] [place], [address] MCHC (RBC) [Mass/Vol] 34.0 g/dL Normal 32-36 [facility] Comment on above: Performed By: #### L 100.0500, L500.2500 ####[facility] [address] [place], [address] MCV (RBC) [Entitic vol] 94.0 fL Normal 80-94 [facility] Comment on above: Performed By: #### L 100.0500, L500.2500 ####[facility] [address] [place], [address] Platelet mean volume (Bld) [Entitic vol] 9.4 fL Normal 6.2-12.0 [facility] Comment on above: Performed By: #### L 100.0500, L500.2500 ####[facility] [address] [place], [address] Platelets (Bld) [#/Vol] 148 10*3/uL Low 150-450 [facility] Comment on above: Performed By: #### L 100.0500, L500.2500 ####[facility] [address] [place], [address] RBC (Bld) [#/Vol] 4.19 10*6/uL Low 4.6-6.2 [facility] Comment on above: Performed By: #### L 100.0500, L500.2500 ####[facility] [address] [place], [address] RDW SD 45.9 fl High 35.1-43.9 [facility] Comment on above: Performed By: #### L 100.0500, L500.2500 ####[facility] [address] [place], [address] WBC (Bld) [#/Vol] 8.3 10*3/uL Normal 4.4-11.0 [facility] Comment on above: Performed By: #### L 100.0500, L500.2500 ####[facility] [address] [place], [address] Carbon dioxide measurementOr dered By: Vicente Andrews on 10-28-2024 CO2 [Moles/Vol] 30.0 mmol/L 21.0-32.0 [facility] Chloride measurementOrdered By: Vicente Andrews on 10-28-2024 Chloride [Moles/Vol] 104 mmol/L 98-107 [facility] Discharge Instructionon 10-01 Discharge Instruction Normal [facility] Echo Complete W/ Contraston 10-28-2024 Echo Complete W/ Contrast Normal [facility] Erythrocyte distribution wid th ratioOrdered By: Vicente Andrews on 10-28-2024 Erythrocyte distribution width (RBC) [Ratio] 13.5 % 11.6-14.6 [facility] Erythrocyte distribution wid th standard deviationOrdered By: Vicente Andrews on 10-28-2024 Erythrocyte distribution width (RBC) [Entitic vol] 45.9 fL High 35.1-43.9 [facility] Estimated glomerular filtrat ion rate (GFR) AmericanOrdered By: Vicente Andrews on 10-28-2024 Estimated GFR (MDRD) Amer 42 mL/min Low >60 [facility] Comment on above: GFR Calc Estimation of creatinine rosi aranceOrdered By: Vicente Andrews on 10-28-2024 Estimated Creatinine Clearance Calc 34.51 ml/min [facility] Glomerular filtration rate ( GFR) estimationOrdered By: Vicente Andrews on 10-28-2024 Estimated GFR (MDRD) Non-Af Amer 35 mL/min Low >60 [facility] Comment on above: Non- GFR Calc Glucose measurementOrdered B y: Vicente Andrews on 10-28-2024 Glucose [Mass/Vol] 135 mg/dL High 74-106 [facility] Comment on above: Fasting Glucose resu lt greater than or equal to 126 mg/dL suggests DIABETES MELLITUS per A.D.A. criteria. Hematocrit Auto (Bld) [Volum e fraction]Ordered By: Vicente Andrews on 10-28-2024 Hematocrit (Bld) [Volume fraction] 39.4 % Low 40-54 [facility] Hemoglobin measurementOrdere d By: Vicente Andrews on 10-28-2024 Hemoglobin (Bld) [Mass/Vol] 13.4 g/dL 13.0-16.5 [facility] MCV (mean corpuscular volume ) determinationOrdered By: Vicente Andrews on 10-28-2024 MCV (RBC) [Entitic vol] 94.0 fL 80-94 [facility] Magnesiumon 10-28-2024 Magnesium [Mass/Vol] 2.5 mg/dL Normal 1.6-2.6 [facility] Comment on above: Performed By: #### L 501.2300, L501.5200 ####[facility] [address] [place], [place], [phone] Magnesium measurementOrdered By: Vicente Andrews on 10-28-2024 Magnesium [Mass/Vol] 2.5 mg/dL 1.6-2.6 [facility] Mean corpuscular hemoglobin (MCH) determinationOrdered By: Vicente Andrews on 10-28-2024 MCH (RBC) [Entitic mass] 32.0 pg 27.0-32.0 [facility] Mean corpuscular hemoglobin concentration (MCHC) determinationOrdered By: Vicente Andrews on 10-28-2024 MCHC (RBC) [Mass/Vol] 34.0 g/dL 32-36 [facility] Mean platelet volume determi nationOrdered By: Vicente Andrews on 10-28-2024 Platelet mean volume (Bld) [Entitic vol] 9.4 fL 6.2-12.0 [facility] Phosphoruson 10-28-2024 Phosphate [Mass/Vol] 2.3 mg/dL Low 2.5-4.9 [facility] Comment on above: Performed By: #### L 501.2300, L501.5200 ####[facility] [address] [place], [place], [id number] Phosphorus measurementOrdere d By: Vicente Andrews on 10-28-2024 Phosphorus Level 2.3 mg/dL Low 2.5-4.9 [facility] Platelet countOrdered By: Nj Andrews on 10-28-2024 Platelets (Bld) [#/Vol] 148 10*3/uL Low 150-450 [facility] Potassium measurementOrdered By: Vicente Andrews on 10-28-2024 Potassium [Moles/Vol] 3.0 mmol/L Low 3.5-5.1 [facility] RBC Auto (Bld) [#/Vol]Ordere d By: Vicente Andrews on 10-28-2024 RBC (Bld) [#/Vol] 4.19 10*6/uL Low 4.6-6.2 [facility] Serum anion gap measurementO rdered By: Vicente Andrews on 10-28-2024 Anion gap [Moles/Vol] 3 mmol/L Low 5-15 [facility] Serum or plasma calcium jimbo urement (mass/volume)Ordered By: Vicente Andrews on 10-28-2024 Calcium [Mass/Vol] 8.9 mg/dL 8.5-10.1 [facility] Serum or plasma creatinine m easurement (mass/volume)Ordered By: Vicente Andrews on 10-28-2024 Creatinine [Mass/Vol] 2.03 mg/dL High 0.70-1.30 [facility] Comment on above: The validity of the calculated GFR & GFRAA in patients over 70 years has not been determined. Clinical correlation is essential. Serum or plasma urea nitroge n measurement (mass/volume)Ordered By: Vicente Andrews on 10-28-2024 Urea nitrogen [Mass/Vol] 26 mg/dL High 7-18 [facility] Sodium levelOrdered By: Pablo Andrews on 10-28-2024 Sodium [Moles/Vol] 138 mmol/L 136-145 [facility] White blood cell (WBC) count Ordered By: Vicente Andrews on 10-28-2024 WBC (Bld) [#/Vol] 8.3 10*3/uL 4.4-11.0 [facility] 12 Lead EKGon 10-27-2024 12 Lead EKG Normal [facility] Absolute neutrophil countOrd ered By: Yecenia Harvey on 10-27-2024 Neutrophils (Bld) [#/Vol] 9.2 10*3/uL High 2.0-7.7 [facility] Basic Metabolic Profile (BMP )on 10-27-2024 BUN/CRE 13.6 RATIO Normal 10-20 [facility] Comment on above: Order Comment: 'TROP ' Serial specimen #1, #2 or #3: 1 Performed By: #### L 501.4020, L500.2500, L100.0100 ####[facility] [address] [place], [place], [id number] CA,Total 9.3 mg/dL Normal 8.5-10.1 [facility] Comment on above: Order Comment: 'TROP ' Serial specimen #1, #2 or #3: 1 Performed By: #### L 501.4020, L500.2500, L100.0100 ####[facility] [address] [place], [address] Chloride [Moles/Vol] 100 mmol/L Normal 98-107 [facility] Comment on above: Order Comment: 'TROP ' Serial specimen #1, #2 or #3: 1 Performed By: #### L 501.4020, L500.2500, L100.0100 ####[facility] [address] [place], [address] CO2 [Moles/Vol] 25.0 mmol/L Normal 21.0-32.0 [facility] Comment on above: Order Comment: 'TROP ' Serial specimen #1, #2 or #3: 1 Performed By: #### L 501.4020, L500.2500, L100.0100 ####[facility] [address] [place], [address] Creatinine [Mass/Vol] 2.13 mg/dL High 0.70-1.30 [facility] Comment on above: Order Comment: 'TROP ' Serial specimen #1, #2 or #3: 1 Result Comment: The validity of the calculated GFR GFRAA in patients over70 years has not been determined. Clinical correlation isessential. Performed By: #### L 501.4020, L500.2500, L100.0100 ####[facility] [address] [place], [address] ECRCL 33.31 ml/min Normal [facility] Comment on above: Order Comment: 'TROP ' Serial specimen #1, #2 or #3: 1 Performed By: #### L 501.4020, L500.2500, L100.0100 ####[facility] [address] [place], [address] EST GFR - AA 40 mL/min Low >60 [facility] Comment on above: Order Comment: 'TROP ' Serial specimen #1, #2 or #3: 1 Result Comment: Afri can Jamaican GFR Calc Performed By: #### L 501.4020, L500.2500, L100.0100 ####[facility] [address] [place], [address] GAP 6 Normal 5-15 [facility] Comment on above: Order Comment: 'TROP ' Serial specimen #1, #2 or #3: 1 Performed By: #### L 501.4020, L500.2500, L100.0100 ####[facility] [address] [place], [address] GFR/1.73 sq M.predicted among non-blacks MDRD (S/P/Bld) [Vol rate/Area] 33 mL/min/{1.73_m2} Low >60 [facility] Comment on above: Order Comment: 'TROP ' Serial specimen #1, #2 or #3: 1 Result Comment: Non- GFR Calc Performed By: #### L 501.4020, L500.2500, L100.0100 ####[facility] [address] [place], [address] Glucose [Mass/Vol] 120 mg/dL High 74-106 [facility] Comment on above: Order Comment: 'TROP ' Serial specimen #1, #2 or #3: 1 Result Comment: Fast ing Glucose result from 100 to 125 mg/dLsuggests IMPAIRED HOMEOSTASIS per A.D.A. criteria. Performed By: #### L 501.4020, L500.2500, L100.0100 ####[facility] [address] [place], [address] Potassium [Moles/Vol] 3.8 mmol/L Normal 3.5-5.1 [facility] Comment on above: Order Comment: 'TROP ' Serial specimen #1, #2 or #3: 1 Result Comment: Mode rate Hemolysis, Result may be falsely increased. Performed By: #### L 501.4020, L500.2500, L100.0100 ####[facility] [address] [place], [address] Sodium [Moles/Vol] 130 mmol/L Low 136-145 [facility] Comment on above: Order Comment: 'TROP ' Serial specimen #1, #2 or #3: 1 Performed By: #### L 501.4020, L500.2500, L100.0100 ####[facility] [address] [place], [address] Urea nitrogen [Mass/Vol] 29 mg/dL High 7-18 [facility] Comment on above: Order Comment: 'TROP ' Serial specimen #1, #2 or #3: 1 Performed By: #### L 501.4020, L500.2500, L100.0100 ####[facility] [address] [place], [address] Basophil percentageOrdered B y: Yecenia Harvey on 10-27-2024 Basophils/100 WBC (Bld) 0.3 % 0-1 [facility] Bilirubin Test strip Ql (U)O rdered By: Yecenia Harvey on 10-27-2024 Bilirubin Ql (U) Negative Negative [facility] Brain/Head without Contrasto n 10-27-2024 Brain/Head without Contrast Normal [facility] CBC W/Diff, Automatedon 09-30 Absolute Lymph 1.48 X10 3/uL Normal 0.83-4.51 [facility] Comment on above: Performed By: #### L 501.4020, L500.2500, L100.0100 ####[facility] [address] [place], [address] Absolute Neut 9.2 X10 3/uL High 2.0-7.7 [facility] Comment on above: Performed By: #### L 501.4020, L500.2500, L100.0100 ####[facility] [address] [place], [address] Basophils/100 WBC (Bld) 0.3 % Normal 0-1 [facility] Comment on above: Performed By: #### L 501.4020, L500.2500, L100.0100 ####[facility] [address] [place], [address] Eosinophils/100 WBC (Bld) 0.3 % Normal 0-5 [facility] Comment on above: Performed By: #### L 501.4020, L500.2500, L100.0100 ####[facility] [address] [place], [address] Erythrocyte distribution width (RBC) [Ratio] 13.4 % Normal 11.6-14.6 [facility] Comment on above: Performed By: #### L 501.4020, L500.2500, L100.0100 ####[facility] [address] [place], [address] Hematocrit (Bld) [Volume fraction] 43.4 % Normal 40-54 [facility] Comment on above: Performed By: #### L 501.4020, L500.2500, L100.0100 ####[facility] [address] [place], [address] Hemoglobin (Bld) [Mass/Vol] 15.1 g/dL Normal 13.0-16.5 [facility] Comment on above: Performed By: #### L 501.4020, L500.2500, L100.0100 ####[facility] [address] [place], [address] IG% 0.700 Normal 0.0-0.9 [facility] Comment on above: Result Comment: IG% - Immature Granulocytes (promyelocytes, myelocytes andmetamyelocytes) > 1% indicates that a LEFT SHIFT is Present. Performed By: #### L 501.4020, L500.2500, L100.0100 ####[facility] [address] [place], [address] Lymphocytes/100 WBC (Bld) 12.9 % Low 19-41 [facility] Comment on above: Performed By: #### L 501.4020, L500.2500, L100.0100 ####[facility] [address] [place], [address] MCH (RBC) [Entitic mass] 32.4 pg High 27.0-32.0 [facility] Comment on above: Performed By: #### L 501.4020, L500.2500, L100.0100 ####[facility] [address] [place], [address] MCHC (RBC) [Mass/Vol] 34.8 g/dL Normal 32-36 [facility] Comment on above: Performed By: #### L 501.4020, L500.2500, L100.0100 ####[facility] [address] [place], [address] MCV (RBC) [Entitic vol] 93.1 fL Normal 80-94 [facility] Comment on above: Performed By: #### L 501.4020, L500.2500, L100.0100 ####[facility] [address] [place], [address] Monocytes/100 WBC (Bld) 6.3 % Normal 0-10 [facility] Comment on above: Performed By: #### L 501.4020, L500.2500, L100.0100 ####[facility] [address] [place], [address] Neutrophils/100 WBC (Bld) 79.5 % High 47-70 [facility] Comment on above: Performed By: #### L 501.4020, L500.2500, L100.0100 ####[facility] [address] [place], [address] Nucleated RBC (Bld) [#/Vol] 0 10*3/uL Normal 0-5 [facility] Comment on above: Performed By: #### L 501.4020, L500.2500, L100.0100 ####[facility] [address] [place], [address] Platelet mean volume (Bld) [Entitic vol] 9.5 fL Normal 6.2-12.0 [facility] Comment on above: Performed By: #### L 501.4020, L500.2500, L100.0100 ####[facility] [address] [place], [address] Platelets (Bld) [#/Vol] 179 10*3/uL Normal 150-450 [facility] Comment on above: Performed By: #### L 501.4020, L500.2500, L100.0100 ####[facility] [address] [place], [address] RBC (Bld) [#/Vol] 4.66 10*6/uL Normal 4.6-6.2 [facility] Comment on above: Performed By: #### L 501.4020, L500.2500, L100.0100 ####[facility] [address] [place], [address] RDW SD 45.6 fl High 35.1-43.9 [facility] Comment on above: Performed By: #### L 501.4020, L500.2500, L100.0100 ####[facility] [address] [place], [address] WBC (Bld) [#/Vol] 11.5 10*3/uL High 4.4-11.0 [facility] Comment on above: Performed By: #### L 501.4020, L500.2500, L100.0100 ####[facility] [address] [place], [address] Chest 1 View (Portable)on Chest 1 View (Portable) Normal [facility] D-Dimer Quantitative (DVT/PE )on 10-27-2024 D-DIMER QUANT 0.56 FEU/ug/m Invalid Interpretation Code 0.27-0.49 [facility] Comment on above: Result Comment: D-Di krissy ELEVATED (>0.49): Additional studies and clinicalassessments are indicated to conclude diagnosis of:Deep Vein Thrombosis (DVT) or Pulmonary Embolism (PE)CRITICAL VALUE CALLED TO SCNSRW11/29/24 [address].RESULTS READ BACK BY SAME. Performed By: #### L 300.8000 ####[facility] [address] [place], [address] D-dimer measurement for deep venous thrombosisOrdered By: Praveen Ruiz on 10-27-2024 D-Dimer Quantitative (PE/DVT) 0.56 FEU/ug/m High 0.27-0.49 [facility] Comment on above: D-Dimer ELEVATED (>0 .49): Additional studies and clinicalassessments are indicated to conclude diagnosis of:Deep Vein Thrombosis (DVT) or Pulmonary Embolism (PE)CRITICAL VALUE CALLED TO XZTMUL15/29/24 [address].RESULTS READ BACK BY SAME. Emergency Department Summary on 10-27-2024 Emergency Department Summary Normal [facility] Eosinophil percentageOrdered By: Yecenia Harvey on 10-27-2024 Eosinophils/100 WBC (Bld) 0.3 % 0-5 [facility] Epithelial cells.squamous LM Ql (Urine sed)Ordered By: Yecenia Harvey on 10-27-2024 Epithelial cells.squamous LM.HPF (Urine sed) [#/Area] 0 /[HPF] 0-5 [facility] Glucose Ql (U)Ordered By: Jessica Harvey on 10-27-2024 Urine Glucose (UA) Normal mg/dl Normal [facility] H AND P Exam - Hospitaliston 10-27-2024 H&P Exam - Hospitalist Normal [facility] Immature granulocytes/100 WB C Auto (Bld)Ordered By: Yecenia Harvey on 10-27-2024 Immature granulocytes/100 WBC (Bld) 0.700 % 0.0-0.9 [facility] Comment on above: IG% - Immature Granu locytes (promyelocytes, myelocytes and metamyelocytes) > 1% indicates that a LEFT SHIFT is Present. Ketones Test strip Ql (U)Ord ered By: Yecenia Harvey on 10-27-2024 Ketones Ql (U) Negative Negative [facility] L501.4020on 10-27-2024 TROPONIN-I HS 14 pg/mL Normal 3.0-78.0 [facility] Comment on above: Order Comment: 'TROP ' Serial specimen #1, #2 or #3: 1 Result Comment: Aline petersen Note: New Test Units and Gender Specific Reference Ranges. For more information see Policy Stat Procedure [place] High Sensitivity Troponin (TNIH) and attachments. Performed By: #### L 501.4020, L500.2500, L100.0100 ####[facility] [address] [place], [address] Lymphocytes Auto (Unsp spec) [#/Vol]Ordered By: Yecenia Harvey on 10-27-2024 Lymphocytes (Bld) [#/Vol] 1.48 10*3/uL 0.83-4.51 [facility] Lymphocytes/100 WBC Auto (Un sp spec)Ordered By: Yecenia Harvey on 10-27-2024 Lymphocytes/100 WBC (Bld) 12.9 % Low 19-41 [facility] Microscopic analysis of urin e for red blood cells (RBC)Ordered By: Yecenia Harvey on 10-27-2024 Urine RBC 0-5 SEEN /hpf 0-5 [facility] Monocyte percentageOrdered B y: Yecenia Harvey on 10-27-2024 Monocytes/100 WBC (Bld) 6.3 % 0-10 [facility] Mucus LM Ql (Urine sed)Order ed By: Yecenia Harvey on 10-27-2024 Mucus Ql (Urine sed) 0 SEEN /hpf [facility] Neutrophil percentageOrdered By: Yecenia Harvey on 10-27-2024 Neutrophils/100 WBC (Bld) 79.5 % High 47-70 [facility] Nitrite Test strip Ql (U)Ord ered By: Yecenia Harvey on 10-27-2024 Nitrite Ql (U) Negative Negative [facility] Nucleated red blood cell per centageOrdered By: Yecenia Harvey on 10-27-2024 Nucleated RBC/100 WBC (Bld) [Ratio] 0 % 0-5 [facility] Protein Test strip Ql (U)Ord ered By: Yecenia Harvey on 10-27-2024 Protein Ql (U) 30 mg/dl High Negative [facility] Spine Cervical without Contr ason 10-27-2024 Spine Cervical without Contras Normal [facility] Troponin IOrdered By: Yecenia washingtonhoracionina on 10-27-2024 Troponin I High Sensitivity 14 pg/mL 3.0-78.0 [facility] Comment on above: Please Note: New Alexandra t Units and Gender Specific Reference Ranges. For more information see Policy Stat Procedure [place] High Sensitivity Troponin (TNIH) and attachments. Urinalysis, Completeon 10-27 BACTERIA 1+ /hpf Normal None Seen [facility] Comment on above: Order Comment: SUSAN CTOR TO SPECIFY Performed By: #### L 400.0001 ####[facility] [address] [place], [place], [phone] EPI,SQUAMOUS 0-5 SEEN Normal 0-5 [facility] Comment on above: Order Comment: SUSAN CTOR TO SPECIFY Performed By: #### L 400.0001 ####[facility] [address] [place], [address] RBC 0-5 SEEN Normal 0-5 [facility] Comment on above: Order Comment: SUSAN CTOR TO SPECIFY Performed By: #### L 400.0001 ####[facility] [address] [place], [address] Mucus Ql (Urine sed) 0 SEEN Normal [facility] Comment on above: Order Comment: SUSAN CTOR TO SPECIFY Performed By: #### L 400.0001 ####[facility] [address] [place], [address] WBC 0 SEEN Normal 0-5 [facility] Comment on above: Order Comment: SUSAN CTOR TO SPECIFY Performed By: #### L 400.0001 ####[facility] [address] [place], [address] Urine blood detectionOrdered By: Yecenia Harvey on 10-27-2024 Urine Occult Blood 50 /ul High Negative [facility] Urine clarityOrdered By: Celia Harvey on 10-27-2024 Clarity (U) Clear Clear [facility] Urine color determinationOrd ered By: Yecenia Harvey on 10-27-2024 Color (U) Yellow Yellow [facility] Urine leukocyte esterase det ection by dipstickOrdered By: Yecenia Harvey on 10-27-2024 Leukocyte esterase Test strip Ql (U) Negative Negative [facility] Urine pHOrdered By: Yecenia rivas on 10-27-2024 pH (U) 7.0 [pH] 5.0 - 8.0 [facility] Urine sediment bacteria coun t by microscopy (number/high power field)Ordered By: Yecenia Harvey on 10-27-2024 Bacteria LM.HPF (Urine sed) [#/Area] 1 /[HPF] None Seen [facility] Urine specific gravity measu rementOrdered By: Yecenia Harvey on 10-27-2024 Specific gravity (U) [Rel density] 1.005 1.002-1.030 [facility] Urobilinogen Ql (U)Ordered B y: Yecenia Harvey on 10-27-2024 Urine Urobilinogen Normal mg/dl Normal [facility] White blood cell countOrdere d By: Yecenia Harvey on 10-27-2024 Urine WBC 0 SEEN /hpf 0-5 [facility] CNPNon 09-18-2024 [facility] Telephone (INT[facility]) -------- HORACE HENDERSON ([id number]) 1955 M Date Time Provider Department 09/18/24 GEORGE VÁZQUEZ INTWS During your visit today, we recorded the following information about you: Debbie Portillo RN 09/18/2024 2:35 PM Signed Patient calling for referral to see a new Safety And Security Manager for COPD. Dr. Orellana. . He was seeing Dr. Hall who is no longer @ [facility]. TOMMIE Dennis Victor H, MD 09/18/2024 [...] lung CT) [R91.1] Order(s):CONSULT TO PULMONARY MEDICINE [[id number]] Order #: [id number]: [id number] Prescriptions as of 09/18/2024 - nystatin [...] Status:Closed by PAT RICHEY on 09/18/24 Normal [facility] 12 Lead EKGon 09-17-2024 12 Lead EKG Normal [facility] Absolute neutrophil countOrd ered By: Francisco Murillo on 09-17-2024 Neutrophils (Bld) [#/Vol] 4.5 10*3/uL 2.0-7.7 [facility] Basic Metabolic Profile (BMP )on 09-17-2024 BUN/CRE 10.5 RATIO Normal 08-18 [facility] Comment on above: Order Comment: 'TROP ' Serial specimen #1, #2 or #3: 1 Performed By: #### L 500.2500, L501.4020, L100.0100 ####[facility] [address] [place], [place], [address] CA,Total 9.9 mg/dL Normal 8.5-10.1 [facility] Comment on above: Order Comment: 'TROP ' Serial specimen #1, #2 or #3: 1 Performed By: #### L 500.2500, L501.4020, L100.0100 ####[facility] [address] [place], [address] Chloride [Moles/Vol] 103 mmol/L Normal 98-107 [facility] Comment on above: Order Comment: 'TROP ' Serial specimen #1, #2 or #3: 1 Performed By: #### L 500.2500, L501.4020, L100.0100 ####[facility] [address] [place], [address] CO2 [Moles/Vol] 28.0 mmol/L Normal 21.0-32.0 [facility] Comment on above: Order Comment: 'TROP ' Serial specimen #1, #2 or #3: 1 Performed By: #### L 500.2500, L501.4020, L100.0100 ####[facility] [address] [place], [address] Creatinine [Mass/Vol] 1.52 mg/dL High 0.70-1.30 [facility] Comment on above: Order Comment: 'TROP ' Serial specimen #1, #2 or #3: 1 Result Comment: The validity of the calculated GFR GFRAA in patients over70 years has not been determined. Clinical correlation isessential. Performed By: #### L 500.2500, L501.4020, L100.0100 ####[facility] [address] [place], [address] ECRCL 46.14 ml/min Normal [facility] Comment on above: Order Comment: 'TROP ' Serial specimen #1, #2 or #3: 1 Performed By: #### L 500.2500, L501.4020, L100.0100 ####[facility] [address] [place], [address] EST GFR - AA 59 mL/min Low >60 [facility] Comment on above: Order Comment: 'TROP ' Serial specimen #1, #2 or #3: 1 Result Comment: Afri can Jamaican GFR Calc Performed By: #### L 500.2500, L501.4020, L100.0100 ####[facility] [address] [place], [address] GAP 6 Normal 5-15 [facility] Comment on above: Order Comment: 'TROP ' Serial specimen #1, #2 or #3: 1 Performed By: #### L 500.2500, L501.4020, L100.0100 ####[facility] [address] [place], [address] GFR/1.73 sq M.predicted among non-blacks MDRD (S/P/Bld) [Vol rate/Area] 48 mL/min/{1.73_m2} Low >60 [facility] Comment on above: Order Comment: 'TROP ' Serial specimen #1, #2 or #3: 1 Result Comment: Non- GFR Calc Performed By: #### L 500.2500, L501.4020, L100.0100 ####[facility] [address] [place], [address] Glucose [Mass/Vol] 117 mg/dL High 74-106 [facility] Comment on above: Order Comment: 'TROP ' Serial specimen #1, #2 or #3: 1 Result Comment: Fast ing Glucose result from 100 to 125 mg/dLsuggests IMPAIRED HOMEOSTASIS per A.D.A. criteria. Performed By: #### L 500.2500, L501.4020, L100.0100 ####[facility] [address] [place], [address] Potassium [Moles/Vol] 3.7 mmol/L Normal 3.5-5.1 [facility] Comment on above: Order Comment: 'TROP ' Serial specimen #1, #2 or #3: 1 Performed By: #### L 500.2500, L501.4020, L100.0100 ####[facility] [address] [place], [address] Sodium [Moles/Vol] 137 mmol/L Normal 136-145 [facility] Comment on above: Order Comment: 'TROP ' Serial specimen #1, #2 or #3: 1 Performed By: #### L 500.2500, L501.4020, L100.0100 ####[facility] [address] [place], [address] Urea nitrogen [Mass/Vol] 16 mg/dL Normal 7-18 [facility] Comment on above: Order Comment: 'TROP ' Serial specimen #1, #2 or #3: 1 Performed By: #### L 500.2500, L501.4020, L100.0100 ####[facility] [address] [place], [address] Basophil percentageOrdered B y: Francisco Murillo on 09-17-2024 Basophils/100 WBC (Bld) 0.8 % 0-1 [facility] Blood urea nitrogen (BUN)/cr eatinine ratioOrdered By: Francisco Murillo on 09-17-2024 Urea nitrogen/Creatinine [Mass ratio] 10.5 mg/mg 10-20 [facility] CBC W/Diff, Automatedon 08-30 Absolute Lymph 1.40 X10 3/uL Normal 0.83-4.51 [facility] Comment on above: Performed By: #### L 100.0100 ####[facility] [address] [place], [address] Absolute Neut 4.5 X10 3/uL Normal 2.0-7.7 [facility] Comment on above: Performed By: #### L 100.0100 ####[facility] [address] [place], [address] Basophils/100 WBC (Bld) 0.8 % Normal 0-1 [facility] Comment on above: Performed By: #### L 100.0100 ####[facility] [address] [place], [address] Eosinophils/100 WBC (Bld) 1.7 % Normal 0-5 [facility] Comment on above: Performed By: #### L 100.0100 ####[facility] [address] [place], [address] Erythrocyte distribution width (RBC) [Ratio] 13.2 % Normal 11.6-14.6 [facility] Comment on above: Performed By: #### L 100.0100 ####[facility] [address] [place], [address] Hematocrit (Bld) [Volume fraction] 46.7 % Normal 40-54 [facility] Comment on above: Performed By: #### L 100.0100 ####[facility] [address] [place], [address] Hemoglobin (Bld) [Mass/Vol] 16.0 g/dL Normal 13.0-16.5 [facility] Comment on above: Performed By: #### L 100.0100 ####[facility] [address] [place], [address] IG% 0.200 Normal 0.0-0.9 [facility] Comment on above: Result Comment: IG% - Immature Granulocytes (promyelocytes, myelocytes andmetamyelocytes) > 1% indicates that a LEFT SHIFT is Present. Performed By: #### L 100.0100 ####[facility] [address] [place], [address] Lymphocytes/100 WBC (Bld) 21.4 % Normal 19-41 [facility] Comment on above: Performed By: #### L 100.0100 ####[facility] [address] [place], [address] MCH (RBC) [Entitic mass] 32.6 pg High 27.0-32.0 [facility] Comment on above: Performed By: #### L 100.0100 ####[facility] [address] [place], [address] MCHC (RBC) [Mass/Vol] 34.3 g/dL Normal 32-36 [facility] Comment on above: Performed By: #### L 100.0100 ####[facility] [address] [place], [address] MCV (RBC) [Entitic vol] 95.1 fL High 80-94 [facility] Comment on above: Performed By: #### L 100.0100 ####[facility] [address] [place], [address] Monocytes/100 WBC (Bld) 7.2 % Normal 0-10 [facility] Comment on above: Performed By: #### L 100.0100 ####[facility] [address] [place], [address] Neutrophils/100 WBC (Bld) 68.7 % Normal 47-70 [facility] Comment on above: Performed By: #### L 100.0100 ####[facility] [address] [place], [address] Nucleated RBC (Bld) [#/Vol] 0 10*3/uL Normal 0-5 [facility] Comment on above: Performed By: #### L 100.0100 ####[facility] [address] [place], [address] Platelet mean volume (Bld) [Entitic vol] 9.4 fL Normal 6.2-12.0 [facility] Comment on above: Performed By: #### L 100.0100 ####[facility] [address] [place], [address] Platelets (Bld) [#/Vol] 166 10*3/uL Normal 150-450 [facility] Comment on above: Performed By: #### L 100.0100 ####[facility] [address] [place], [address] RBC (Bld) [#/Vol] 4.91 10*6/uL Normal 4.6-6.2 [facility] Comment on above: Performed By: #### L 100.0100 ####[facility] [address] [place], [address] RDW SD 46.5 fl High 35.1-43.9 [facility] Comment on above: Performed By: #### L 100.0100 ####[facility] [address] [place], [address] WBC (Bld) [#/Vol] 6.5 10*3/uL Normal 4.4-11.0 [facility] Comment on above: Performed By: #### L 100.0100 ####[facility] [address] [place], [address] Absolute Neut Normal 2.0-7.7 [facility] Comment on above: Result Comment: This specimen has been REJECTED due to Laboratory criteria:Clotted.ELSA CARRERO has been notified of need ofrecollection.09/17/241729 Berna Munoz Performed By: #### L 500.2500, L501.4020, L100.0100 ####[facility] [address] [place], [address] HCT Normal 40-54 [facility] Comment on above: Result Comment: This specimen has been REJECTED due to Laboratory criteria:Clotted.ELSA CARRERO has been notified of need ofrecollection.09/17/241729 Berna Munoz Performed By: #### L 500.2500, L501.4020, L100.0100 ####[facility] [address] [place], [address] HGB Normal 13.0-16.5 [facility] Comment on above: Result Comment: This specimen has been REJECTED due to Laboratory criteria:Clotted.ELSA CARRERO has been notified of need ofrecollection.09/17/241729 Berna Wolfhope Performed By: #### L 500.2500, L501.4020, L100.0100 ####[facility] [address] [place], [address] MCH Normal 27.0-32.0 [facility] Comment on above: Result Comment: This specimen has been REJECTED due to Laboratory criteria:Clotted.ELSA CARRERO has been notified of need ofrecollection.09/17/24 173 Berna Wolfhope Performed By: #### L 500.2500, L501.4020, L100.0100 ####[facility] [address] [place], [address] MCHC Normal 32-36 [facility] Comment on above: Result Comment: This specimen has been REJECTED due to Laboratory criteria:Clotted.ELSA CARRERO has been notified of need ofrecollection.09/17/241729 Berna Wolfhope Performed By: #### L 500.2500, L501.4020, L100.0100 ####[facility] [address] [place], [address] MCV Normal 80-94 [facility] Comment on above: Result Comment: This specimen has been REJECTED due to Laboratory criteria:Clotted.ELSA CARRERO has been notified of need ofrecollection.09/17/241729 Berna Wolfhope Performed By: #### L 500.2500, L501.4020, L100.0100 ####[facility] [address] [place], [address] NEUT% Normal 47-70 [facility] Comment on above: Result Comment: This specimen has been REJECTED due to Laboratory criteria:Clotted.ELSA CARRERO has been notified of need ofrecollection.09/17/241729 Berna Wolfhope Performed By: #### L 500.2500, L501.4020, L100.0100 ####[facility] [address] [place], [address] PLT Normal 150-450 [facility] Comment on above: Result Comment: This specimen has been REJECTED due to Laboratory criteria:Clotted.ELSA GIOVANNILISADEANDRE has been notified of need ofrecollection.09/17/241729 Berna Wolfhope Performed By: #### L 500.2500, L501.4020, L100.0100 ####[facility] [address] [place], [address] RBC Normal 4.6-6.2 [facility] Comment on above: Result Comment: This specimen has been REJECTED due to Laboratory criteria:Clotted.ELSA CARRERO has been notified of need ofrecollection.09/17/241729 Berna Wolfhope Performed By: #### L 500.2500, L501.4020, L100.0100 ####[facility] [address] [place], [address] RDW CV Normal 11.6-14.6 [facility] Comment on above: Result Comment: This specimen has been REJECTED due to Laboratory criteria:Clotted.ELSA CARRERO has been notified of need ofrecollection.09/17/241729 Berna Wolfhope Performed By: #### L 500.2500, L501.4020, L100.0100 ####[facility] [address] [place], [address] RDW SD Normal 35.1-43.9 [facility] Comment on above: Result Comment: This specimen has been REJECTED due to Laboratory criteria:Clotted.ELSA CARRERO has been notified of need ofrecollection.09/17/241729 Berna Wolfhope Performed By: #### L 500.2500, L501.4020, L100.0100 ####[facility] [address] [place], [address] WBC Normal 4.4-11.0 [facility] Comment on above: Result Comment: This specimen has been REJECTED due to Laboratory criteria:Clotted.ELSA CARRERO has been notified of need ofrecollection.09/17/24 1730 Berna Munoz Performed By: #### L 500.2500, L501.4020, L100.0100 ####[facility] [address] [place], [address] Carbon dioxide measurementOr dered By: Francisco Murillo on 09-17-2024 CO2 [Moles/Vol] 28.0 mmol/L 21.0-32.0 [facility] Chest PA and Lateralon 09-17 Chest PA and Lateral Normal [facility] Chloride measurementOrdered By: Francisco Murillo on 09-17-2024 Chloride [Moles/Vol] 103 mmol/L 98-107 [facility] Emergency Department Summary on 09-17-2024 Emergency Department Summary Normal [facility] Eosinophil percentageOrdered By: Francisco Murillo on 09-17-2024 Eosinophils/100 WBC (Bld) 1.7 % 0-5 [facility] Erythrocyte distribution wid th ratioOrdered By: Francisco Murillo on 09-17-2024 Erythrocyte distribution width (RBC) [Ratio] 13.2 % 11.6-14.6 [facility] Erythrocyte distribution wid th standard deviationOrdered By: Francisco Murillo on 09-17-2024 Erythrocyte distribution width (RBC) [Entitic vol] 46.5 fL High 35.1-43.9 [facility] Estimated glomerular filtrat ion rate (GFR) AmericanOrdered By: Francisco Murillo on 09-17-2024 Estimated GFR (MDRD) Amer 59 mL/min Low >60 [facility] Comment on above: GFR Calc Estimation of creatinine rosi aranceOrdered By: Francisco Murillo on 09-17-2024 Estimated Creatinine Clearance Calc 46.14 ml/min [facility] Glomerular filtration rate ( GFR) estimationOrdered By: Francisco Murillo on 09-17-2024 Estimated GFR (MDRD) Non-Af Amer 48 mL/min Low >60 [facility] Comment on above: Non- GFR Calc Glucose measurementOrdered B y: Francisco Murillo on 09-17-2024 Glucose [Mass/Vol] 117 mg/dL High 74-106 [facility] Comment on above: Fasting Glucose resu lt from 100 to 125 mg/dL suggests IMPAIRED HOMEOSTASIS per A.D.A. criteria. Hematocrit Auto (Bld) [Volum e fraction]Ordered By: Francisco Murillo on 09-17-2024 Hematocrit (Bld) [Volume fraction] 46.7 % 40-54 [facility] Hemoglobin measurementOrdere d By: Francisco Murillo on 09-17-2024 Hemoglobin (Bld) [Mass/Vol] 16.0 g/dL 13.0-16.5 [facility] Immature granulocytes/100 WB C Auto (Bld)Ordered By: Francisco Murillo on 09-17-2024 Immature granulocytes/100 WBC (Bld) 0.200 % 0.0-0.9 [facility] Comment on above: IG% - Immature Granu locytes (promyelocytes, myelocytes and metamyelocytes) > 1% indicates that a LEFT SHIFT is Present. L501.4020on 09-17-2024 TROPONIN-I HS 9 pg/mL Normal 3.0-78.0 [facility] Comment on above: Order Comment: 'TROP ' Serial specimen #1, #2 or #3: 1 Result Comment: Plea se Note: New Test Units and Gender Specific Reference Ranges. For more information see Policy Stat Procedure [place] High Sensitivity Troponin (TNIH) and attachments. Performed By: #### L 500.2500, L501.4020, L100.0100 ####[facility] [address] [place], [place], [address] Lymphocytes Auto (Unsp spec) [#/Vol]Ordered By: Francisco Murillo on 09-17-2024 Lymphocytes (Bld) [#/Vol] 1.40 10*3/uL 0.83-4.51 [facility] Lymphocytes/100 WBC Auto (Un sp spec)Ordered By: Francisco Murillo on 09-17-2024 Lymphocytes/100 WBC (Bld) 21.4 % 19-41 [facility] MCV (mean corpuscular volume ) determinationOrdered By: Francisco Murillo on 09-17-2024 MCV (RBC) [Entitic vol] 95.1 fL High 80-94 [facility] Mean corpuscular hemoglobin (MCH) determinationOrdered By: Francisco Murillo on 09-17-2024 MCH (RBC) [Entitic mass] 32.6 pg High 27.0-32.0 [facility] Mean corpuscular hemoglobin concentration (MCHC) determinationOrdered By: Francisco Murillo on 09-17-2024 MCHC (RBC) [Mass/Vol] 34.3 g/dL 32-36 [facility] Mean platelet volume determi nationOrdered By: Francisco Murillo on 09-17-2024 Platelet mean volume (Bld) [Entitic vol] 9.4 fL 6.2-12.0 [facility] Monocyte percentageOrdered B y: Francisco Murillo on 09-17-2024 Monocytes/100 WBC (Bld) 7.2 % 0-10 [facility] Neutrophil percentageOrdered By: Francisco Murillo on 09-17-2024 Neutrophils/100 WBC (Bld) 68.7 % 47-70 [facility] Nucleated red blood cell per centageOrdered By: Francisco Murillo on 09-17-2024 Nucleated RBC/100 WBC (Bld) [Ratio] 0 % 0-5 [facility] Platelet countOrdered By: Jose Murillo on 09-17-2024 Platelets (Bld) [#/Vol] 166 10*3/uL 150-450 [facility] Potassium measurementOrdered By: Francisco Murillo on 09-17-2024 Potassium [Moles/Vol] 3.7 mmol/L 3.5-5.1 [facility] RBC Auto (Bld) [#/Vol]Ordere d By: Francisco Murillo on 09-17-2024 RBC (Bld) [#/Vol] 4.91 10*6/uL 4.6-6.2 [facility] Serum anion gap measurementO rdered By: Francisco Murillo on 09-17-2024 Anion gap [Moles/Vol] 6 mmol/L 5-15 [facility] Serum or plasma calcium jimbo urement (mass/volume)Ordered By: Francisco Murillo on 09-17-2024 Calcium [Mass/Vol] 9.9 mg/dL 8.5-10.1 [facility] Serum or plasma creatinine m easurement (mass/volume)Ordered By: Francisco Murillo on 09-17-2024 Creatinine [Mass/Vol] 1.52 mg/dL High 0.70-1.30 [facility] Comment on above: The validity of the calculated GFR & GFRAA in patients over 70 years has not been determined. Clinical correlation is essential. Serum or plasma urea nitroge n measurement (mass/volume)Ordered By: Francisco Murillo on 09-17-2024 Urea nitrogen [Mass/Vol] 16 mg/dL 7-18 [facility] Sodium levelOrdered By: Francisco Murillo on 09-17-2024 Sodium [Moles/Vol] 137 mmol/L 136-145 [facility] Troponin IOrdered By: Francisco yoon on 09-17-2024 Troponin I High Sensitivity 9 pg/mL 3.0-78.0 [facility] Comment on above: Please Note: New Alexandra t Units and Gender Specific Reference Ranges. For more information see Policy Stat Procedure [place] High Sensitivity Troponin (TNIH) and attachments. White blood cell (WBC) count Ordered By: Francisco Murillo on 09-17-2024 WBC (Bld) [#/Vol] 6.5 10*3/uL 4.4-11.0 [facility] Basic metabolic 2000 panelon 09-12-2024 Anion gap [Moles/Vol] 12 mmol/L Normal 8-15 [facility] Comment on above: Order Comment: Speci men Type: BLOOD SPECIMEN Ordering Facility: Neptali Orellana MD Address: [address], [place] [address] Performed By: #### 5 7021-8 #### [facility] [id number] [address] [place] [address] [place] Calcium [Mass/Vol] 9.8 mg/dL Normal 8.5-10.2 [facility] Comment on above: Order Comment: Speci men Type: BLOOD SPECIMEN Ordering Facility: Neptali Orellana MD Address: [address], [place] [address] Performed By: #### 5 7021-8 #### [facility] CLIA [id number] [address] [place] [address] [place] Chloride [Moles/Vol] 99 mmol/L Normal 98-107 [facility] Comment on above: Order Comment: Ashly oakley Type: BLOOD SPECIMEN Ordering Facility: Neptali Orellana MD Address: [address] [place] [address] Performed By: #### 5 7021-8 #### [facility] [id number] [address] [place] [address] [place] CO2 [Moles/Vol] 27 mmol/L Normal 22-30 [facility] Comment on above: Order Comment: Ashly oakley Type: BLOOD SPECIMEN Ordering Facility: Neptali Orellana MD Address: [address] [place] [address] Performed By: #### 5 7021-8 #### [facility] CLIA [id number] [address] [place] [address] [place] Creatinine [Mass/Vol] 1.23 mg/dL High 0.73-1.22 [facility] Comment on above: Order Comment: Ashly oakley Type: BLOOD SPECIMEN Ordering Facility: Neptali Orellana MD Address: [address] [place] [address] Performed By: #### 5 7021-8 #### [facility] [id number] [address] [place] [address] Creatinine and Glomerular filtration rate.predicted panel (S/P/Bld) 63 mL/min/1.73m??? Normal >=60 [facility] Comment on above: Order Comment: Ashly oakley Type: BLOOD SPECIMEN Ordering Facility: Neptali Orellana MD Address: [address] [place] [address] Result Comment: Shelli mated Glomerular Filtration Rate [...] accurately reflect actual GFR. Performed By: #### 5 7021-8 #### [facility] [id number] [address] [place] [address] [place] Glucose [Mass/Vol] 100 mg/dL High 74-99 [facility] Comment on above: Order Comment: Ashly oakley Type: BLOOD SPECIMEN Ordering Facility: Neptali Orellana MD Address: [address] [place] [address] Result Comment: The [place] [employer] (ADA) provides guidance for cutoff [...] Standards of Medical Care in Diabetes 2016, [place] [employer]. Diabetes Care. 2016.39(Suppl 1). Performed By: #### 5 7021-8 #### [facility] [id number] [address] [place] [address] [place] Potassium [Moles/Vol] 4.1 mmol/L Normal 3.7-5.1 [facility] Comment on above: Order Comment: Ashly oakley Type: BLOOD SPECIMEN Ordering Facility: Neptali Orellana MD Address: [address] [place], [place] [address] [address] Performed By: #### 5 7021-8 #### [facility] [id number] [address] [place] [address] [place] Sodium [Moles/Vol] 138 mmol/L Normal 136-144 [facility] Comment on above: Order Comment: Ashly oakley Type: BLOOD SPECIMEN Ordering Facility: Neptali Orellana MD Address: [address] [place] [address] Performed By: #### 5 7021-8 #### [facility] [id number] [address] [place] [address] [place] Urea nitrogen [Mass/Vol] 23 mg/dL Normal 9-24 [facility] Comment on above: Order Comment: Ashly oakley Type: BLOOD SPECIMEN Ordering Facility: Neptali Orellana MD Address: [address] [place] [address] Performed By: #### 5 7021-8 #### [facility] CLIA [id number] [address] [place] [address] [place] CBC panel Auto (Bld)on 09-12 Erythrocyte distribution width (RBC) [Ratio] 13.2 % Normal 11.5-15.0 [facility] Comment on above: Order Comment: Ashly oakley Type: BLOOD SPECIMEN Ordering Facility: Neptali Orellana MD Address: [address] [place] [address] Performed By: #### 5 7021-8 #### [facility] CLIA [id number] [address] [place] [address] [place] Hematocrit (Bld) [Volume fraction] 48.4 % Normal 39.0-51.0 [facility] Comment on above: Order Comment: Ashly oakley Type: BLOOD SPECIMEN Ordering Facility: Neptali Orellana MD Address: [address] [place] [address] Performed By: #### 5 7021-8 #### [facility] CLIA [id number] [address] [place] [address] [place] Hemoglobin (Bld) [Mass/Vol] 16.5 g/dL Normal 13.0-17.0 [facility] Comment on above: Order Comment: Ashly oakley Type: BLOOD SPECIMEN Ordering Facility: Neptali Orellana MD Address: [address] [place] [address] Performed By: #### 5 7021-8 #### [facility] CLIA [id number] [address] [place] [address] [place] MCH (RBC) [Entitic mass] 32.1 pg Normal 26.0-34.0 [facility] Comment on above: Order Comment: Speci men Type: BLOOD SPECIMEN Ordering Facility: Neptali Orellana MD Address: [facility] [address] [address] Performed By: #### 5 7021-8 #### [facility] CLIA [id number] [address] [place] [address] [place] MCHC (RBC) [Mass/Vol] 34.1 g/dL Normal 30.5-36.0 [facility] Comment on above: Order Comment: Speci men Type: BLOOD SPECIMEN Ordering Facility: Neptali Orellana MD [facility] [place] [address] Performed By: #### 5 7021-8 #### [facility] CLIA [id number] [address] [place] [address] [place] MCV (RBC) [Entitic vol] 94.2 fL Normal 80.0-100.0 [facility] Comment on above: Order Comment: Specyanira oakley Type: BLOOD SPECIMEN Ordering Facility: Neptali Orellana MD Address: [facility] [place] [address] Performed By: #### 5 7021-8 #### [facility] CLIA [id number] [address] [place] [address] [place] Nucleated RBC (Bld) [#/Vol] 10*3/uL Normal <0.01 [facility] Comment on above: Order Comment: Speci men Type: BLOOD SPECIMEN Ordering Facility: Neptali Orellana MD Address: [address] [place], [place] [address] [address] Performed By: #### 5 7021-8 #### [facility] CLIA [id number] [address] [place] [address] [place] Platelet mean volume (Bld) [Entitic vol] 9.4 fL Normal 9.0-12.7 [facility] Comment on above: Order Comment: Speci men Type: BLOOD SPECIMEN Ordering Facility: Neptali Orellana MD Address: [facility] [place] [address] Performed By: #### 5 7021-8 #### [facility] CLIA [id number] [address] [place] [address] [place] Platelets (Bld) [#/Vol] 163 10*3/uL Normal 150-400 [facility] Comment on above: Order Comment: Speci men Type: BLOOD SPECIMEN Ordering Facility: Neptali Orellana MD Address: [facility] [place] [address] Performed By: #### 5 7021-8 #### [facility] [id number] [address] [place] [address] [place] RBC (Bld) [#/Vol] 5.14 10*6/uL Normal 4.20-6.00 [facility] Comment on above: Order Comment: Speci men Type: BLOOD SPECIMEN Ordering Facility: Neptali Orellana MD Address: [facility] [place] [address] Performed By: #### 5 7021-8 #### [facility] [id number] [address] [place] [address] [place] WBC (Bld) [#/Vol] 10.46 10*3/uL Normal 3.70-11.00 [facility] Comment on above: Order Comment: Speci men Type: BLOOD SPECIMEN Ordering Facility: Neptali Orellana MD Address: [facility] [place] [address] Performed By: #### 5 7021-8 #### [facility] [id number] [address] [place] [address] [place] CNOVon 09-12-2024 CNOV Office Visit (INTMWS ) -------- HORACE HENDERSON ([id number]) 1955 M Date Time Provider Department 09/12/24 4:20 PM GEORGE VÁZQUEZ INTMWS During your visit today, we recorded the following information about you: Temperature Pulse Respiration Blood pressure 98.9 degrees 130/minute 28/minute 134/84 Weight 82.2 kg George Vázquez MD 09/12/2024 4:57 PM Signed This note was created using Soricimed. Subjective Horace Henderson is a 69 year old male. I saw him for COPD exacerbation one week ago, and he was seen in the week before that. He continues to feel vaguely ill. His heart rate has been staying elevated when he checked his oximetry at home. 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 (more content not included)... Normal [facility] ECG COMPLETEon 09-12-2024 ECG COMPLETE Ventricular Rate : 1 17 BPM Atrial Rate : 117 BPM P-R Interval : 136 ms QRS Duration : 128 ms Q-T Interval : 334 ms QTC Calculation(Bazett) : 465 ms Calculated P Spalding : 77 degrees Calculated R Spalding : -76 degrees Calculated T Spalding : 78 degrees SINUS TACHYCARDIA WITH PREMATURE ATRIAL COMPLEXES LEFT AXIS DEVIATION COMPLETE RIGHT BUNDLE BRANCH BLOCK ABNORMAL ECG Confirmed by MD BECK GREGORY () on 09/13/2024 10:20:58 AM NAME : HORACE HENDERSON PID : [id number] : 1955 Gender : Male Race : ORD : [id number] Procedure Date : Sep 12 2024 16:39:35 Edit Date : Sep 13 2024 10:21:00 Diagnosis: SINUS TACHYCARDIA WITH PREMATURE ATRIAL COMPLEXES LEFT AXIS DEVIATION COMPLETE RIGHT BUNDLE BRANCH BLOCK ABNORMAL ECG Confirmed by MD BECK GREGORY () on 09/13/2024 10:20:58 AM Test Reason : I25.10 Coronary artery disease involving kaw coronary artery of kaw heart Location : 185 : [facility] Overread By : MD BECK GREGORY Edited By : MD BECK GREGORY Referred By : , Acquired by : Iris chin [facility] NT-proBNP [facility] 09-12 Natriuretic peptide.B prohormone N-Terminal [Mass/Vol] 153 pg/mL High <125 [facility] Comment on above: Order Comment: Speci men Type: BLOOD SPECIMEN Ordering Facility: Neptali Orellana MD Address: [address] , [place] [address] Performed By: #### 5 7021-8 #### [facility] CLIA [id number] [address] [place] XR Chest PA and Lateralon IMPRESSION: No acute radiographic abnormality. Wall Insulation Sprayer: PSCB Transcribe Date/Time: Aug 30 2024 12:01P Dictated by : JULISA DAVIS MD This examination was interpreted and the report reviewed and electronically signed by: JULISA DAVIS MD on Aug 30 2024 12:04PM [facility] DIVISION OF RADIOLOGY * * *Final [...] the thoracic spine. DIVISION OF RADIOLOGY Provider, [facility] - 08/30/2024 * * *Final Report* * [...] spine. IMPRESSION IMPRESSION: No acute radiographic abnormality. Wall Insulation Sprayer: TIMOTEO Transcribe Date/Time: Aug 30 2024 12:01P Dictated by : JULISA DAVIS MD This examination was interpreted and the report reviewed and electronically signed by: JULISA DAVIS MD on Aug 30 2024 12:04PM [facility] Radiology Study observation (narrative) [facility] XR Chest PA and LateralOrder ed By: Ccf Provider on 08-30-2024 [facility] XR Chest PA and Lateralon IMPRESSION: Overall findings unchanged. Wall Insulation Sprayer: TIMOTEO Transcribe Date/Time: Oct 18 2023 8:22A Dictated by : ALLIE LEA MD This examination was interpreted and the report reviewed and electronically signed by: ALLIE LEA MD on Oct 18 2023 8:25AM [facility] DIVISION OF RADIOLOGY * * *Final [...] shows degenerative changes. DIVISION OF RADIOLOGY Provider, [facility] - 10/18/2023 * * *Final Report* * [...] degenerative changes. IMPRESSION IMPRESSION: Overall findings unchanged. Wall Insulation Sprayer: PSCLatonya Transcribe Date/Time: Oct 18 2023 8:22A Dictated by : ALLIE LEA MD This examination was interpreted and the report reviewed and electronically signed by: ALLIE LEA MD on Oct 18 2023 8:25AM EST [facility] Radiology Study observation (narrative) [facility] XR Chest PA and LateralOrder ed By: Ccf Provider on 10-18-2023 [facility] Gram stain for investigation of transfusion reactionOrdered By: Radha Roberts on 08-11-2023 Microscopic observation Gram stain Nom (Unsp spec) [facility] Microbial respiratory cultur eOrdered By: Radha Roberts on 08-11-2023 Bacteria identified Respiratory culture Nom (Unsp spec) or Staphylococcus aureus isolated. [facility] Basophil percentageOrdered B y: Amada Mahoney on 08-07-2023 Creatinine [Mass/Vol] 1.1 mg/dL 0.70-1.30 [facility] No Panel InformationOrdered By: Amada Mahoney on 08-07-2023 Bedside Estimated GFR (eGFR) > 60.0000 mL/min >60 [facility] Basophil percentageOrdered B y: Gloria Cochran on 08-04-2023 Bilirubin [Mass/Vol] 0.70 mg/dL 0.20-1.00 [facility] Comment on above: For patients on eltr ombopag therapy, use of Dimension [place] TBIL is not recommended. Cholesterol [Mass/Vol] 159 mg/dL <200 [facility] Comment on above: <200 mg/dL Desirable 200-240 mg/dL Borderline >240 mg/dL High Risk Protein [Mass/Vol] 7.2 g/dL 6.4-8.2 [facility] Triglyceride [Mass/Vol] 150 mg/dL <199 [facility] Comment on above: The drugs N-Acetylcy steine and Metamizole may falsely depress this assay.Serum Triglycerides Reference Interval Normal <150 mg/dL Borderline high 150 - 199 mg/dL High 200 - 499 mg/dL Very High > or = 500 mg/dL Direct bilirubinOrdered By: Gloria Cochran on 08-04-2023 Bilirubin.direct [Mass/Vol] 0.20 mg/dL 0.00-0.30 [facility] Gram stain for investigation of transfusion reactionOrdered By: Radha Roberts on 08-04-2023 Microscopic observation Gram stain Nom (Unsp spec) [facility] Laboratory - Chemistry and C hemistry - challengeOrdered By: Gloria Cochran on 08-04-2023 ALP [Catalytic activity/Vol] 85 U/L 45-117 [facility] ALT [Catalytic activity/Vol] 30 U/L 16-61 [facility] Globulin (S) [Mass/Vol] 3.5 g/dL 2.2-4.2 [facility] Microbial respiratory cultur eOrdered By: Radha Roberts on 08-04-2023 Bacteria identified Respiratory culture Nom (Unsp spec) or Staphylococcus aureus isolated. [facility] Serum or plasma albumin jimbo urement (mass/volume)Ordered By: Gloria Cochran on 08-04-2023 Albumin [Mass/Vol] 3.7 g/dL 3.2-5.0 [facility] Serum or plasma cholesterol in HDL measurement (mass/volume)Ordered By: Gloria Cochran on 08-04-2023 Cholesterol in HDL [Mass/Vol] 75 mg/dL >40 [facility] Comment on above: The drugs N-Acetylcy steine and Metamizole may falsely depress this assay. Reference Range HDL <40 mg/dL Low HDL Cholesterol HDL >or= 60 mg/dL High HDL Cholesterol Serum or plasma cholesterol in VLDL measurement (mass/volume)Ordered By: Gloria Cochran on 08-04-2023 Cholesterol in VLDL [Mass/Vol] 30 mg/dL 5-40 [facility] Serum or plasma low density lipoprotein (LDL) cholesterol measurement (mass/volume)Ordered By: Gloria Cochran on 08-04-2023 Cholesterol in LDL [Mass/Vol] 54 mg/dL 0-130 [facility] Thin prep Papanicolaou smear with manual screeningOrdered By: Gloria Cochran on 08-04-2023 Thin prep Papanicolaou smear with manual screening 18 U/L 15-37 [facility] Influenza virus A and B and Respiratory syncytial virus RNA panel - Upper respiratoryOrdered By: Radha Roberts on 07-21-2023 FLUAV and FLUBV and RSV pnl JESSICA+probe (Upper resp) [facility] No Panel Informationon 07-21 POC SARS CoV-2 Antigen Negative [facility] Absolute lymphocyte countOrd ered By: Dr. Mas on 03-17-2023 Lymphocytes Auto (Unsp spec) [#/Vol] 0.63 10*3/uL 0.83-4.51 [facility] Basophil percentageOrdered B y: Dr. Mas on 03-17-2023 Basophils/100 WBC (Bld) 0.2 % 0-1 [facility] Chloride [Moles/Vol] 103 mmol/L 98-107 [facility] Eosinophils/100 WBC (Bld) 0.0 % 0-5 [facility] Glucose [Mass/Vol] 126 mg/dL 74-106 [facility] Comment on above: Fasting Glucose resu lt greater than or equal to 126 mg/dL suggests DIABETES MELLITUS per A.D.A. criteria. Neutrophils (Bld) [#/Vol] 8.2 10*3/uL 2.0-7.7 [facility] Neutrophils/100 WBC (Bld) 89.5 % 47-70 [facility] Potassium [Moles/Vol] 4.0 mmol/L 3.5-5.1 [facility] Sodium [Moles/Vol] 139 mmol/L 136-145 [facility] WBC (Bld) [#/Vol] 9.2 10*3/uL 4.4-11.0 [facility] Blood erythrocytes count (nu mber/volume)Ordered By: Dr. Mas on 03-17-2023 RBC (Bld) [#/Vol] 5.00 10*6/uL 4.6-6.2 [facility] Blood hemoglobin measurement (mass/volume)Ordered By: Dr. Mas on 03-17-2023 Hemoglobin (Bld) [Mass/Vol] 15.3 g/dL 13.0-16.5 [facility] Blood lymphocytes/100 leukoc ytesOrdered By: Dr. Mas on 03-17-2023 Lymphocytes/100 WBC (Bld) 6.9 % 19-41 [facility] Blood monocytes/100 leukocyt esOrdered By: Dr. Mas on 03-17-2023 Monocytes/100 WBC (Bld) 2.7 % 0-10 [facility] Blood platelet mean volumeOr dered By: Dr. Mas on 03-17-2023 Platelet mean volume (Bld) [Entitic vol] 9.0 fL 6.2-12.0 [facility] Determination of erythrocyte mean corpuscular volume (MCV)Ordered By: Dr. Msa on 03-17-2023 MCV (RBC) [Entitic vol] 91.6 fL 80-94 [facility] Hematocrit Auto (Bld) [Volum e fraction]Ordered By: Dr. Mas on 03-17-2023 Hematocrit (Bld) [Volume fraction] 45.8 % 40-54 [facility] Laboratory - Chemistry and C hemistry - challengeOrdered By: Dr. Mas on 03-17-2023 CO2 [Moles/Vol] 30.0 mmol/L 21.0-32.0 [facility] Urea nitrogen/Creatinine [Mass ratio] 20.8 mg/mg 10-20 [facility] Laboratory - Hematology and Cell countsOrdered By: Dr. Mas on 03-17-2023 Erythrocyte distribution width (RBC) [Entitic vol] 43.8 fL 35.1-43.9 [facility] Erythrocyte distribution width (RBC) [Ratio] 13.1 % 11.6-14.6 [facility] Immature granulocytes/100 WBC (Bld) 0.700 % 0.0-0.9 [facility] Comment on above: IG% - Immature Granu locytes (promyelocytes, myelocytes and metamyelocytes) > 1% indicates that a LEFT SHIFT is Present. MCH (RBC) [Entitic mass] 30.6 pg 27.0-32.0 [facility] Nucleated RBC/100 WBC (Bld) [Ratio] 0 % 0-5 [facility] MCHC Auto (RBC) [Mass/Vol]Or dered By: Dr. Mas on 03-17-2023 MCHC (RBC) [Mass/Vol] 33.4 g/dL 32-36 [facility] No Panel InformationOrdered By: Dr. Mas on 03-17-2023 D-Dimer Quantitative (PE/DVT) 0.56 FEU/ug/m 0.27-0.49 [facility] Comment on above: D-Dimer ELEVATED (>0 .49): Additional studies and clinicalassessments are indicated to conclude diagnosis of:Deep Vein Thrombosis (DVT) or Pulmonary Embolism (PE)CRITICAL VALUE VERIFIED. CALLED TO AMBREEN DOS SANTOS03/17/23 1633 Roque Henriquez.RESULTS READ BACK BY SAME . Estimated GFR (MDRD) Amer 74 mL/min >60 [facility] Comment on above: GFR Calc Estimated GFR (MDRD) Non-Af Amer 61 mL/min >60 [facility] Comment on above: Non- GFR Calc Troponin I High Sensitivity 15 pg/mL 3.0-78.0 [facility] Comment on above: Please Note: New Alexandra t Units and Gender Specific Reference Ranges. For more information see Policy Stat Procedure [place] High Sensitivity Troponin (TNIH) and attachments. Platelets bldOrdered By: Dr. Mas on 03-17-2023 Platelets (Bld) [#/Vol] 279 10*3/uL 150-450 [facility] Serum or plasma calcium jimbo urement (mass/volume)Ordered By: Dr. Mas on 03-17-2023 Calcium [Mass/Vol] 10.2 mg/dL 8.5-10.1 [facility] Serum or plasma creatinine m easurement (mass/volume)Ordered By: Dr. Mas on 03-17-2023 Creatinine [Mass/Vol] 1.25 mg/dL 0.70-1.30 [facility] Comment on above: The validity of the calculated GFR & GFRAA in patients over 70 years has not been determined. Clinical correlation is essential. Serum or plasma urea nitroge n measurement (mass/volume)Ordered By: Dr. Mas on 03-17-2023 Urea nitrogen [Mass/Vol] 26 mg/dL 05-16 [facility] Thin prep Papanicolaou smear with manual screeningOrdered By: Dr. Mas on 03-17-2023 Thin prep Papanicolaou smear with manual screening 6 - [facility] No Panel InformationOrdered By: Aleksey Friend on 01-28-2023 Miscellaneous Test See comment [facility] Comment on above: STOOL CULTURETEST RE SULT REFERENCE INTERVALSALMONELLA/SHIGELLASCREEN RESULT 1 NO SALMONELLA OR SHIGELLA RECOVEREDCAMPYLOBACTER CULTUREFINAL REPORT NO CAMPYLOBACTER SPECIES ISOLATEDE COLI SHIGA TOXIN EIA NEGATIVE NEGATIVE ___ TESTING PERFORMED AT [facility]. ORIGINAL REPORT ON FILE IN LAB CONTAINS ADDITIONAL TEST SITE INFORMATION. Stool Calprotectin <16 ug/g 0-120 [facility] Comment on above: Concentration Interp retation Follow-Up<16 - 50 ug/g Normal None>50 -120 ug/g Borderline Re-evaluate in 4-6 weeks >120 ug/g Abnormal Repeat as clinically indicatedPerformed at: [facility] Lab[address] [id number] Director: Gian Hopkins PhD, Phone: [phone] at: [facility] Lab[address] [id number] Director: Patricia Rivera MD, Phone: [phone] Stool Neutral Fats Normal . [facility] Comment on above: Normal (<60 Droplets /HPF) Stool Pancreatic Elastase 90 >200 [facility] Comment on above: Result Units: ug Catie st./gResults verified by repeat testing Severe Pancreatic Insufficiency: <100 Moderate Pancreatic Insufficiency: 100 - 200 Normal: >200Performed at: [address] [id number] Director: Patricia Rivera MD, Phone: [phone] Qualitative fecal fat or lip idsOrdered By: Aleksey Javier on 01-28-2023 Fat Ql (Stl) Normal . [facility] Comment on above: Normal (<100 Droplet s/HPF) Stool lactoferrin detection by immunoassayOrdered By: Aleksey Javier on 01-28-2023 Lactoferrin IA Ql (Stl) [facility] Basophil percentageOrdered B y: Dr. Giles on 01-24-2023 Bilirubin [Mass/Vol] 0.60 mg/dL 0.20-1.00 [facility] Comment on above: For patients on eltr ombopag therapy, use of Dimension [place] TBIL is not recommended. Chloride [Moles/Vol] 104 mmol/L 98-107 [facility] Cholesterol [Mass/Vol] 154 mg/dL <200 [facility] Comment on above: <200 mg/dL Desirable 200-240 mg/dL Borderline >240 mg/dL High Risk Glucose [Mass/Vol] 98 mg/dL 74-106 [facility] Potassium [Moles/Vol] 3.6 mmol/L 3.5-5.1 [facility] Protein [Mass/Vol] 7.2 g/dL 6.4-8.2 [facility] Sodium [Moles/Vol] 137 mmol/L 136-145 [facility] Triglyceride [Mass/Vol] 156 mg/dL <199 [facility] Comment on above: The drugs N-Acetylcy steine and Metamizole may falsely depress this assay.Serum Triglycerides Reference Interval Normal <150 mg/dL Borderline high 150 - 199 mg/dL High 200 - 499 mg/dL Very High > or = 500 mg/dL Direct bilirubinOrdered By: Dr. Giles on 01-24-2023 Bilirubin.direct [Mass/Vol] 0.15 mg/dL 0.00-0.30 [facility] Laboratory - Chemistry and C hemistry - challengeOrdered By: Dr. Giles on 01-24-2023 ALP [Catalytic activity/Vol] 76 U/L 45-117 [facility] ALT [Catalytic activity/Vol] 20 U/L 16-61 [facility] CO2 [Moles/Vol] 28.0 mmol/L 21.0-32.0 [facility] Globulin (S) [Mass/Vol] 3.5 g/dL 2.2-4.2 [facility] Urea nitrogen/Creatinine [Mass ratio] 14.6 mg/mg 10-20 [facility] No Panel InformationOrdered By: Dr. Giles on 01-24-2023 Estimated GFR (MDRD) Amer 57 mL/min >60 [facility] Comment on above: GFR Calc Estimated GFR (MDRD) Non-Af Amer 47 mL/min >60 [facility] Comment on above: Non- GFR Calc Serum or plasma albumin jimbo urement (mass/volume)Ordered By: Dr. Giles on 01-24-2023 Albumin [Mass/Vol] 3.7 g/dL 3.2-5.0 [facility] Serum or plasma calcium jimbo urement (mass/volume)Ordered By: Dr. Giles on 01-24-2023 Calcium [Mass/Vol] 9.4 mg/dL 8.5-10.1 [facility] Serum or plasma cholesterol in HDL measurement (mass/volume)Ordered By: Dr. Giles on 01-24-2023 Cholesterol in HDL [Mass/Vol] 62 mg/dL >40 [facility] Comment on above: The drugs N-Acetylcy steine and Metamizole may falsely depress this assay. Reference Range HDL <40 mg/dL Low HDL Cholesterol HDL >or= 60 mg/dL High HDL Cholesterol Serum or plasma cholesterol in VLDL measurement (mass/volume)Ordered By: Dr. Giles on 01-24-2023 Cholesterol in VLDL [Mass/Vol] 31 mg/dL 5-40 [facility] Serum or plasma creatinine m easurement (mass/volume)Ordered By: Dr. Giles on 01-24-2023 Creatinine [Mass/Vol] 1.57 mg/dL 0.70-1.30 [facility] Comment on above: The validity of the calculated GFR & GFRAA in patients over 70 years has not been determined. Clinical correlation is essential. Serum or plasma low density lipoprotein (LDL) cholesterol measurement (mass/volume)Ordered By: Dr. Giles on 01-24-2023 Cholesterol in LDL [Mass/Vol] 61 mg/dL 0-130 [facility] Serum or plasma urea nitroge n measurement (mass/volume)Ordered By: Dr. Giles on 01-24-2023 Urea nitrogen [Mass/Vol] 23 mg/dL 7-18 [facility] Thin prep Papanicolaou smear with manual screeningOrdered By: Dr. Giles on 01-24-2023 Thin prep Papanicolaou smear with manual screening 19 U/L 15-37 [facility] Thin prep Papanicolaou smear with manual screening 5 5-15 [facility] No Panel InformationOrdered By: Dr. Palafox on 12-02-2022 Troponin I High Sensitivity 10 pg/mL 3.0-78.0 [facility] Comment on above: Please Note: New Alexandra t Units and Gender Specific Reference Ranges. For more information see Policy Stat Procedure [place] High Sensitivity Troponin (TNIH) and attachments. XR SHOULDER GENERAL 3V OR MO RE AP/TRUE AP/OTHER RIGHTon 11-22-2022 [facility] XR Shoulder - right 3 Viewso n 11-22-2022 IMPRESSION: Degenera tive changes in the right shoulder as described above. Wall Insulation Sprayer: TIMOTEO Transcribe Date/Time: Nov 22 2022 3:03P Dictated by : ALLIE LEA MD This examination was interpreted and the report reviewed and electronically signed by: ALLIE LEA MD on Nov 22 2022 3:08PM [facility] DIVISION OF RADIOLOGY * * *Final [...] post mediastinal sternotomy. DIVISION OF RADIOLOGY Provider, [facility] - 11/22/2022 * * *Final Report* * [...] in the right shoulder as described above. Wall Insulation Sprayer: PSCB Transcribe Date/Time: Nov 22 2022 3:03P Dictated by : ALLIE LEA MD This examination was interpreted and the report reviewed and electronically signed by: ALLIE LEA MD on Nov 22 2022 3:08PM [facility] Radiology Study observation (narrative) Dolly hernández [facility] XR Shoulder - right 3 ViewsO rdered By: Ccf Provider on 11-22-2022 [facility] Basophil percentageOrdered B y: Dr. Betancur on 10-30-2022 Chloride [Moles/Vol] 103 mmol/L 98-107 [facility] Glucose [Mass/Vol] 108 mg/dL 74-106 [facility] Comment on above: Fasting Glucose resu lt from 100 to 125 mg/dL suggests IMPAIRED HOMEOSTASIS per A.D.A. criteria. Potassium [Moles/Vol] 4.1 mmol/L 3.5-5.1 [facility] Sodium [Moles/Vol] 136 mmol/L 136-145 [facility] Laboratory - Chemistry and C hemistry - challengeOrdered By: Dr. Betancur on 10-30-2022 CO2 [Moles/Vol] 27.0 mmol/L 21.0-32.0 [facility] Urea nitrogen/Creatinine [Mass ratio] 28.0 mg/mg 10-20 [facility] No Panel InformationOrdered By: Dr. Betancur on 10-30-2022 Estimated Creatinine Clearance Calc 56.02 ml/min [facility] Estimated GFR (MDRD) Amer 79 mL/min >60 [facility] Comment on above: GFR Calc Estimated GFR (MDRD) Non-Af Amer 65 mL/min >60 [facility] Comment on above: Non- GFR Calc Serum or plasma calcium jimbo urement (mass/volume)Ordered By: Dr. Betancur on 10-30-2022 Calcium [Mass/Vol] 9.1 mg/dL 8.5-10.1 [facility] Serum or plasma creatinine m easurement (mass/volume)Ordered By: Dr. Betancur on 10-30-2022 Creatinine [Mass/Vol] 1.18 mg/dL 0.70-1.30 [facility] Comment on above: The validity of the calculated GFR & GFRAA in patients over 70 years has not been determined. Clinical correlation is essential. Serum or plasma urea nitroge n measurement (mass/volume)Ordered By: Dr. Betancur on 10-30-2022 Urea nitrogen [Mass/Vol] 33 mg/dL 7-18 [facility] Thin prep Papanicolaou smear with manual screeningOrdered By: Dr. Betancur on 10-30-2022 Thin prep Papanicolaou smear with manual screening 6 5-15 [facility] Absolute lymphocyte countOrd ered By: Dr. Betancur on 10-29-2022 Lymphocytes Auto (Unsp spec) [#/Vol] 0.35 10*3/uL 0.83-4.51 [facility] Basophil percentageOrdered B y: Dr. Betancur on 10-29-2022 Basophils/100 WBC (Bld) 0.0 % 0-1 [facility] Eosinophils/100 WBC (Bld) 0.0 % 0-5 [facility] Neutrophils (Bld) [#/Vol] 5.6 10*3/uL 2.0-7.7 [facility] Neutrophils/100 WBC (Bld) 88.8 % 47-70 [facility] WBC (Bld) [#/Vol] 6.3 10*3/uL 4.4-11.0 [facility] Blood erythrocytes count (nu mber/volume)Ordered By: Dr. Betancur on 10-29-2022 RBC (Bld) [#/Vol] 4.18 10*6/uL 4.6-6.2 [facility] Blood hemoglobin measurement (mass/volume)Ordered By: Dr. Betancur on 10-29-2022 Hemoglobin (Bld) [Mass/Vol] 12.9 g/dL 13.0-16.5 [facility] Blood lymphocytes/100 leukoc ytesOrdered By: Dr. Betancur on 10-29-2022 Lymphocytes/100 WBC (Bld) 5.5 % 19-41 [facility] Blood manual differential co mment interpretation (narrative result)Ordered By: Dr. Betancur on 10-29-2022 Manual differential comment Anurag (Bld) [Interp] SCANNED [facility] Blood monocytes/100 leukocyt esOrdered By: Dr. Betancur on 10-29-2022 Monocytes/100 WBC (Bld) 5.4 % 0-10 [facility] Blood platelet mean volumeOr dered By: Dr. Betancur on 10-29-2022 Platelet mean volume (Bld) [Entitic vol] 9.4 fL 6.2-12.0 [facility] Determination of erythrocyte mean corpuscular volume (MCV)Ordered By: Dr. Betancur on 10-29-2022 MCV (RBC) [Entitic vol] 94.0 fL 80-94 [facility] Hematocrit Auto (Bld) [Volum e fraction]Ordered By: Dr. Betancur on 10-29-2022 Hematocrit (Bld) [Volume fraction] 39.3 % 40-54 [facility] - Hematology and Cell countsOrdered By: Dr. Betancur on 10-29-2022 Erythrocyte distribution width (RBC) [Entitic vol] 47.0 fL 35.1-43.9 [facility] Erythrocyte distribution width (RBC) [Ratio] 13.5 % 11.6-14.6 [facility] Immature granulocytes/100 WBC (Bld) 0.300 % 0.0-0.9 [facility] Comment on above: IG% - Immature Granu locytes (promyelocytes, myelocytes and metamyelocytes) > 1% indicates that a LEFT SHIFT is Present. MCH (RBC) [Entitic mass] 30.9 pg 27.0-32.0 [facility] Nucleated RBC/100 WBC (Bld) [Ratio] 0 % 0-5 [facility] MCHC Auto (RBC) [Mass/Vol]Or dered By: Dr. Betancur on 10-29-2022 MCHC (RBC) [Mass/Vol] 32.8 g/dL 32-36 [facility] Platelets bldOrdered By: Dr. Betancur on 10-29-2022 Platelets (Bld) [#/Vol] 186 10*3/uL 150-450 [facility] Absolute lymphocyte counton 10-28-2022 Lymphocytes Auto (Unsp spec) [#/Vol] 0.83 10*3/uL 0.83-4.51 [facility] Work Phone: Basophil percentageOrdered B y: Dr. Henriquez on 10-28-2022 Bilirubin [Mass/Vol] 0.60 mg/dL 0.20-1.00 [facility] Comment on above: For patients on eltr ombopag therapy, use of Dimension [place] TBIL is not recommended. Protein [Mass/Vol] 7.0 g/dL 6.4-8.2 [facility] Basophil percentageon 2021 Basophils/100 WBC (Bld) 0.2 % 0-1 [facility] Work Phone: Chloride [Moles/Vol] 97 mmol/L 98-107 [facility] Work Phone: Eosinophils/100 WBC (Bld) 0.0 % 0-5 [facility] Work Phone: Glucose [Mass/Vol] 118 mg/dL 74-106 [facility] Work Phone: [phone] Comment on above: Fasting Glucose resu lt from 100 to 125 mg/dL suggests IMPAIRED HOMEOSTASIS per A.D.A. criteria. Neutrophils (Bld) [#/Vol] 5.0 10*3/uL 2.0-7.7 [facility] Work Phone: Neutrophils/100 WBC (Bld) 76.8 % 47-70 [facility] Work Phone: Potassium [Moles/Vol] 3.4 mmol/L 3.5-5.1 [facility] Work Phone: [phone] Sodium [Moles/Vol] 134 mmol/L 136-145 [facility] Work Phone: [phone] WBC (Bld) [#/Vol] 6.5 10*3/uL 4.4-11.0 [facility] Work Phone: Blood erythrocytes count (nu mber/volume)on 10-28-2022 RBC (Bld) [#/Vol] 4.72 10*6/uL 4.6-6.2 [facility] Work Phone: Blood hemoglobin measurement (mass/volume)on 10-28-2022 Hemoglobin (Bld) [Mass/Vol] 14.5 g/dL 13.0-16.5 [facility] Work Phone: [phone] Blood lymphocytes/100 leukoc yteson 10-28-2022 Lymphocytes/100 WBC (Bld) 12.7 % 19-41 [facility] Work Phone: Blood monocytes/100 leukocyt eson 10-28-2022 Monocytes/100 WBC (Bld) 10.0 % 0-10 [facility] Work Phone: Blood platelet mean volumeon 10-28-2022 Platelet mean volume (Bld) [Entitic vol] 9.0 fL 6.2-12.0 [facility] Work Phone: Determination of erythrocyte mean corpuscular volume (MCV)on 10-28-2022 MCV (RBC) [Entitic vol] 92.8 fL 80-94 [facility] Work Phone: Hematocrit Auto (Bld) [Volum e fraction]on 10-28-2022 Hematocrit (Bld) [Volume fraction] 43.8 % 40-54 [facility] Work Phone: Influenza virus A and B and SARS-CoV-2 (COVID-19) Ag panel - Upper respiratory specimOrdered By: Dr. Whitney on 10-28-2022 SARS-CoV-2 (COVID-19) RNA JESSICA+probe Ql (Resp) [facility] - Chemistry and C hemistry - challengeOrdered By: Dr. Henriquez on 10-28-2022 ALP [Catalytic activity/Vol] 63 U/L 45-117 [facility] ALT [Catalytic activity/Vol] 23 U/L 16-61 [facility] Globulin (S) [Mass/Vol] 3.5 g/dL 2.2-4.2 [facility] Magnesium [Mass/Vol] 2.2 mg/dL 1.6-2.6 [facility] Laboratory - Chemistry and C hemistry - challengeon 10-28-2022 CO2 [Moles/Vol] 29.0 mmol/L 21.0-32.0 [facility] Work Phone: Urea nitrogen/Creatinine [Mass ratio] 14.4 mg/mg 10-20 [facility] Work Phone: Laboratory - Chemistry and C hemistry - challengeOrdered By: Dr. Whitney on 10-28-2022 Natriuretic peptide B (Bld) [Mass/Vol] 60.4 pg/mL 0-100 [facility] - Hematology and Cell countson 10-28-2022 Erythrocyte distribution width (RBC) [Entitic vol] 45.6 fL 35.1-43.9 [facility] Work Phone: Erythrocyte distribution width (RBC) [Ratio] 13.3 % 11.6-14.6 [facility] Work Phone: Immature granulocytes/100 WBC (Bld) 0.300 % 0.0-0.9 [facility] Work Phone: Comment on above: IG% - Immature Granu locytes (promyelocytes, myelocytes and metamyelocytes) > 1% indicates that a LEFT SHIFT is Present. MCH (RBC) [Entitic mass] 30.7 pg 27.0-32.0 [facility] Work Phone: Nucleated RBC/100 WBC (Bld) [Ratio] 0 % 0-5 [facility] Work Phone: MCHC Auto (RBC) [Mass/Vol]on 10-28-2022 MCHC (RBC) [Mass/Vol] 33.1 g/dL 32-36 [facility] Work Phone: No Panel Informationon 10-28 Estimated Creatinine Clearance Calc 41.31 ml/min [facility] Work Phone: Estimated GFR (MDRD) Amer 56 mL/min >60 [facility] Work Phone: Comment on above: GFR Calc Estimated GFR (MDRD) Non-Af Amer 46 mL/min >60 [facility] Work Phone: Comment on above: Non- GFR Calc No Panel InformationOrdered By: Dr. Whitney on 10-28-2022 Troponin I High Sensitivity 31 pg/mL 3.0-78.0 [facility] Comment on above: Please Note: New Alexandra t Units and Gender Specific Reference Ranges. For more information see Policy Stat Procedure Aleppo High Sensitivity Troponin (TNIH) and attachments. Platelets bldon 10-28-2022 Platelets (Bld) [#/Vol] 222 10*3/uL 150-450 [facility] Work Phone: Serum or plasma albumin jimbo urement (mass/volume)Ordered By: Dr. Henriquez on 10-28-2022 Albumin [Mass/Vol] 3.5 g/dL 3.2-5.0 [facility] Serum or plasma albumin/glob ulin mass ratioOrdered By: Dr. Henriquez on 10-28-2022 Albumin/Globulin [Mass ratio] 1.0 {ratio} 0.9-2.4 [facility] Serum or plasma calcium jimbo urement (mass/volume)on 10-28-2022 Calcium [Mass/Vol] 9.3 mg/dL 8.5-10.1 [facility] Work Phone: Serum or plasma creatinine m easurement (mass/volume)on 10-28-2022 Creatinine [Mass/Vol] 1.60 mg/dL 0.70-1.30 [facility] Work Phone: Comment on above: The validity of the calculated GFR & GFRAA in patients over 70 years has not been determined. Clinical correlation is essential. Serum or plasma urea nitroge n measurement (mass/volume)on 10-28-2022 Urea nitrogen [Mass/Vol] 23 mg/dL 7-18 [facility] Work Phone: Thin prep Papanicolaou smear with manual screeningOrdered By: Dr. Henriquez on 10-28-2022 Thin prep Papanicolaou smear with manual screening 20 U/L 15-37 [facility] Thin prep Papanicolaou smear with manual screeningon 10-28-2022 Thin prep Papanicolaou smear with manual screening 8 5-15 [facility] Work Phone: Respiratory pathogens DNA an d RNA 12b panel JESSICA+probe (Unsp spec)Ordered By: Radha Roberts on 10-27-2022 Respiratory Panel (PCR) Influenza A (Subtype H1) [facility] Albumin Elph [Mass/Vol]on Albumin [Mass/Vol] 3.5 g/dL 2.9-4.4 [facility] Work Phone: Atypical perinuclear antineu trophil cytoplasmic antibodies measurementon 07-28-2022 Neutrophil cytoplasmic Ab.perinuclear.atypical IF (S) [Titer] <1:20 titer Neg:<1:20 [facility] Work Phone: Comment on above: The atypical pANCA p attern has been observed in asignificant percentage of patients with ulcerative colitis,primary sclerosing cholangitis and autoimmune hepatitis. Basophil percentageon 2021 Basophil percentage < 0.2 AI 0.0-0.9 [facility] Work Phone: Erythrocyte sedimentation ra myles 07-28-2022 ESR (Bld) [Velocity] 10 mm/h 0-20 [facility] Work Phone: Interpretation of serum or p lasma protein pattern by immunofixation (narrative resulton 07-28-2022 Protein Fractions Immunofixation Anurag [Interp] See comment [facility] Work Phone: Comment on above: NOt Observed No Panel Informationon 07-28 Addendum Document Comment . [facility] Work Phone: Comment on above: Protein electrophore sis scan will follow via computer,mail, or magnesium mill operator delivery. Centromere B Antibody <0.2 AI 0.0-0.9 [facility] Work Phone: Endomysial IgA Antibody Negative Negative [facility] Work Phone: Immunoglobulin E 94 IU/mL 6-495 [facility] Work Phone: Comment on above: Performed at: [address] [id number] Director: Gian Hopkins PhD, Phone: [phone] at: [facility] Lab[address] [id number] Director: Patricia Rivera MD, Phone: [phone] HAT BRAIDER Antibody 0.2 AI 0.0-0.9 [facility] Work Phone: Serum DNA double strand anti body assay (units/volume)on 07-28-2022 DNA double strand Ab Qn (S) [IU]/mL 0-9 [facility] Work Phone: Comment on above: Negative <5 Equivoca l 5 - 9 Positive >9 Serum Maki-1 antibody assay (u nits/volume)on 07-28-2022 Maki-1 extractable nuclear Ab Qn (S) <0.2 AI 0.0-0.9 [facility] Work Phone: Serum Scl-70 extractable nuc lear antibody assay (units/volume)on 07-28-2022 SCL-70 extractable nuclear Ab Qn (S) <0.2 AI 0.0-0.9 [facility] Work Phone: Serum Reyes extractable nucl ear antibody detectionon 07-28-2022 Reyes extractable nuclear Ab Ql (S) <0.2 AI 0.0-0.9 [facility] Work Phone: Serum snvrn-2-bcznjrhw measu rement by electrophoresison 07-28-2022 Alpha 1 globulin Elph [Mass/Vol] 0.3 g/dL 0.0-0.4 [facility] Work Phone: Alpha 1 globulin Elph [Mass/Vol] 0.9 g/dL 0.4-1.0 [facility] Work Phone: Serum classic neutrophil cyt oplasmic antibody assay (units/volume)on 07-28-2022 Neutrophil cytoplasmic Ab.classic Qn (S) <1:20 titer Neg:<1:20 [facility] Work Phone: Serum globulin measurement ( mass/volume)on 07-28-2022 Globulin (S) [Mass/Vol] 2.8 g/dL 2.2-3.9 [facility] Work Phone: Serum or plasma C reactive p rotein measurement (mass/volume)on 07-28-2022 CRP [Mass/Vol] mg/L 0.0-3.0 [facility] Work Phone: Comment on above: C-Reactive Protein ( CRP) provides useful information for thediagnosis, therapy and monitoring of inflammatory processesand associated diseases. For the evaluation of Relative Riskfor Cardiovascular Disease, a High Sensitivity CRP (HSCRP)should be ordered. Serum or plasma IgA measurem ent (mass/volume)on 07-28-2022 IgA [Mass/Vol] 175 mg/dL 61-437 [facility] Work Phone: Serum or plasma IgG measurem ent (mass/volume)on 07-28-2022 IgG [Mass/Vol] 789 mg/dL 603-1613 [facility] Work Phone: Serum or plasma IgM measurem ent (mass/volume)on 07-28-2022 IgM [Mass/Vol] 105 mg/dL 20-172 [facility] Work Phone: Serum or plasma beta globuli n measurement by electrophoresis (mass/volume)on 07-28-2022 Beta globulin Elph [Mass/Vol] 0.9 g/dL 0.7-1.3 [facility] Work Phone: Serum or plasma gamma globul in measurement by electrophoresis (mass/volume)on 07-28-2022 Gamma globulin Elph [Mass/Vol] 0.8 g/dL 0.4-1.8 [facility] Work Phone: Serum or plasma immunoelectr ophoresis interpretation (nominal result)on 07-28-2022 Interpretation IEP [Interp] Comment . [facility] Work Phone: Comment on above: No monoclonality det ected. Serum perinuclear neutrophil cytoplasmic antibody titer by immunofluorescenceon 07-28-2022 Neutrophil cytoplasmic Ab.perinuclear IF (S) [Titer] <1:20 titer Neg:<1:20 [facility] Work Phone: Comment on above: The presence of posi tive fluorescence exhibiting P-ANCA orC-ANCA patterns alone is not specific for the diagnosis ofWegener's Granulomatosis (WG) or microscopic polyangiitis.Decisions about treatment should not be based solely onANCA IFA results. The [employer] ANCA Group Consensusrecommends follow up testing of positive sera with both VT-3 and MPO-ANCA enzyme immunoassays. As many as 5% serumsamples are positive only by EIA. Ref. AM J Clin Urxwpk7348;111:507-513. Serum tissue transglutaminas e IgA antibody assay (units/volume)on 07-28-2022 tTG IgA Qn (S) <2 U/mL 0-3 [facility] Work Phone: Comment on above: Negative 0 - 3 Weak Positive 4 - 10 Positive >10 Tissue Transglutaminase (tTG) has been identified as the endomysial antigen. Studies have demonstr- ated that endomysial IgA antibodies have over 99% specificity for gluten sensitive enteropathy. Thin prep Papanicolaou smear with manual screeningon 07-28-2022 Thin prep Papanicolaou smear with manual screening 1.3 0.7-1.7 [facility] Work Phone: Total protein bloodon 2021 Protein [Mass/Vol] 6.3 g/dL 6.0-8.5 [facility] Work Phone: CBC W Auto Differential pane l (Bld)on 07-15-2022 Basophils (Bld) [#/Vol] 10*3/uL Normal <0.11 [facility] Comment on above: Order Comment: Speci men Type: BLOOD SPECIMEN Ordering Facility: [facility] Address: [address] [place] [address] Performed By: #### 5 7021-8 #### [facility] CLIA [id number] [address] [place] [address] [place] Basophils/100 WBC (Bld) 0.0 % Normal A [facility] Comment on above: Order Comment: Speci men Type: BLOOD SPECIMEN Ordering Facility: [facility] Address: [address] [place] [address] Performed By: #### 5 7021-8 #### [facility] CLIA [id number] [address] [place] [id number] [place] Differential cell count method Nom (Bld) Auto Normal [facility] Comment on above: Order Comment: Speci men Type: BLOOD SPECIMEN Ordering Facility: [facility] Address: [address] [place] [address] Performed By: #### 5 7021-8 #### [facility] CLIA [id number] [address] [place] [address] [place] Eosinophils (Bld) [#/Vol] 10*3/uL Normal <0.46 [facility] Comment on above: Order Comment: Speci men Type: BLOOD SPECIMEN Ordering Facility: [facility] Address: [address] [place] [address] Performed By: #### 5 7021-8 #### [facility] CLIA [id number] [address] [place] [address] [place] Eosinophils/100 WBC (Bld) 0.1 % Normal [facility] Comment on above: Order Comment: Speci men Type: BLOOD SPECIMEN Ordering Facility: [facility] Address: [address] [place] [address] Performed By: #### 5 7021-8 #### [facility] CLIA [id number] [address] [place] [address] [place] Erythrocyte distribution width (RBC) [Ratio] 12.5 % Normal 11.5-15.0 [facility] Comment on above: Order Comment: Speci men Type: BLOOD SPECIMEN Ordering Facility: [facility] Address: [address] [place] [address] Performed By: #### 5 7021-8 #### [facility] CLIA [id number] [address] [place] Hematocrit (Bld) [Volume fraction] 35.7 % Low 39.0-51.0 [facility] Comment on above: Order Comment: Speci men Type: BLOOD SPECIMEN Ordering Facility: [facility] Address: [address] [place] [address] Performed By: #### 5 7021-8 #### [facility] CLIA [id number] [address] [place] [address] [place] Hemoglobin (Bld) [Mass/Vol] 11.8 g/dL Low 13.0-17.0 [facility] Comment on above: Order Comment: Speci men Type: BLOOD SPECIMEN Ordering Facility: [facility] Address: [address] [place] [address] Performed By: #### 5 7021-8 #### [facility] CLIA [id number] [address] [place] Lymphocytes (Bld) [#/Vol] 0.89 10*3/uL Low 1.00-4.00 [facility] Comment on above: Order Comment: Speci men Type: BLOOD SPECIMEN Ordering Facility: [facility] Address: [address] [place] [address] Performed By: #### 5 7021-8 #### [facility] CLIA [id number] [address] Lymphocytes/100 WBC (Bld) 9.3 % Normal [facility] Comment on above: Order Comment: Speci men Type: BLOOD SPECIMEN Ordering Facility: [facility] Address: [address] [place] [address] Performed By: #### 5 7021-8 #### [facility] CLIA [id number] [address] [place] [address] [place] MCH (RBC) [Entitic mass] 31.5 pg Normal 26.0-34.0 [facility] Comment on above: Order Comment: Speci men Type: BLOOD SPECIMEN Ordering Facility: [facility] Address: [address] [place] [address] Performed By: #### 5 7021-8 #### [facility] CLIA [id number] [address] [place] [address] [place] [facility] MCHC (RBC) [Mass/Vol] 33.1 g/dL Normal 30.5-36.0 [facility] Comment on above: Order Comment: Speci men Type: BLOOD SPECIMEN Ordering Facility: [facility] Address: [address] [place] [address] Performed By: #### 5 7021-8 #### [facility] CLIA [id number] [address] [place] [address] MCV (RBC) [Entitic vol] 95.2 fL Normal 80.0-100.0 [facility] Comment on above: Order Comment: Speci men Type: BLOOD SPECIMEN Ordering Facility: [facility] Address: [address] [place] [address] Performed By: #### 5 7021-8 #### [facility] CLIA [id number] [address] [place] [address] [facility] [place] Monocytes (Bld) [#/Vol] 0.76 10*3/uL Normal <0.87 [facility] Comment on above: Order Comment: Speci men Type: BLOOD SPECIMEN Ordering Facility: [facility] Address: [address] [place] [address] Performed By: #### 5 7021-8 #### [facility] CLIA [id number] [address] [place] Monocytes/100 WBC (Bld) 7.9 % Normal A [facility] Comment on above: Order Comment: Speci men Type: BLOOD SPECIMEN Ordering Facility: [facility] Address: [address] [place] [address] Performed By: #### 5 7021-8 #### [facility] CLIA [id number] [address] [place] [address] [place] Neutrophils (Bld) [#/Vol] 7.94 10*3/uL High 1.45-7.50 [facility] Comment on above: Order Comment: Speci men Type: BLOOD SPECIMEN Ordering Facility: [facility] Address: [address] [place] [address] Performed By: #### 5 7021-8 #### [facility] CLIA [id number] [address] [place] [address] [facility] [place] Neutrophils/100 WBC (Bld) 82.7 % Normal [facility] Comment on above: Order Comment: Speci men Type: BLOOD SPECIMEN Ordering Facility: [facility] Address: [address] [place] [address] Performed By: #### 5 7021-8 #### [facility] CLIA [id number] [address] [place] [address] [place] Platelet mean volume (Bld) [Entitic vol] 9.4 fL Normal 9.0-12.7 [facility] Comment on above: Order Comment: Speci men Type: BLOOD SPECIMEN Ordering Facility: [facility] Address: [address] [place] [address] Performed By: #### 5 7021-8 #### [facility] CLIA [id number] [address] [place] [address] [place] Platelets (Bld) [#/Vol] 259 10*3/uL Normal 150-400 [facility] Comment on above: Order Comment: Speci men Type: BLOOD SPECIMEN Ordering Facility: [facility] Address: [address] [place] [address] Performed By: #### 5 7021-8 #### [facility] CLIA [id number] [address] [place] [address] STATES [facility] RBC (Bld) [#/Vol] 3.75 10*6/uL Low 4.20-6.00 [facility] Comment on above: Order Comment: Speci men Type: BLOOD SPECIMEN Ordering Facility: [facility] Address: [address] [place] [address] Performed By: #### 5 7021-8 #### [facility] CLIA [id number] [address] [place] [address] [place] WBC (Bld) [#/Vol] 9.60 10*3/uL Normal 3.70-11.00 [facility] Comment on above: Order Comment: Speci men Type: BLOOD SPECIMEN Ordering Facility: [facility] Address: [address] [place] [address] Performed By: #### 5 7021-8 #### [facility] CLIA [id number] [address] [facility] CT BRAIN WO IVCONon 07-15-[address] BRAIN WO IVCON * * *Final Report* * * DATE OF EXAM: Jul 15 2022 11:00[facility] 0504 - CT BRAIN WO IVCON / [...] MQ: CTBCSWO_3 Dose-Length Product (DLP): 772.45 (accession [id number]), 315.30 (accession [id number]) mGy*cm. CT Dose Reduction Employed: No dose [...] vertebrae with counting from the craniocervical junction. Wall Insulation Sprayer: TIMOTEO Transcribe Date/Time: Jul 15 2022 11:57A Dictated by : PILI RITCHIE MD This examination was interpreted and the report reviewed and electronically signed by: PILI RITCHIE MD on Jul 15 2022 12:18PM EST [id number] Normal [facility] CT CERVICAL SPINE WO IVCONon 07-15-2022 CT CERVICAL SPINE WO IVCON * * *Final Report* * * DATE OF EXAM: Jul 15 2022 11:00AM [facility] 0505 - CT CERVICAL SPINE WO IVCON [...] MQ: CTBCSWO_3 Dose-Length Product (DLP): 772.45 (accession [id number]), 315.30 (accession [id number]) mGy*cm. CT Dose Reduction Employed: No dose [...] vertebrae with counting from the craniocervical junction. Wall Insulation Sprayer: TIMOTEO Transcribe Date/Time: Jul 15 2022 11:57A Dictated by : PILI RITCHIE MD This examination was interpreted and the report reviewed and electronically signed by: PILI RITCHIE MD on Jul 15 2022 12:18PM EST [id number] Normal [facility] CT CHEST W IVCON PEon 2021 [...] imaged upper abdomen. Cholelithiasis. Fatty liver changes. Fitter Tacker (topogram) images: IMPRESSION: 1. No CT evidence of pulmonary embolism. 2. No CT evidence of acute traumatic injury to the chest. 3. Status post CABG changes. 4.No acute abnormality in the imaged upper abdomen. Cholelithiasis. Fatty liver changes. Wall Insulation Sprayer: PSCB Transcribe Date/Time: Jul 15 2022 12:17P Dictated by : SIRISHA MCGEE MD This examination was interpreted and the report reviewed and electronically signed by: SIRISHA MCGEE MD on Jul 15 2022 12:20PM EST [id number] Normal [facility] Comprehensive metabolic 2000 panelon 07-15-2022 Albumin [Mass/Vol] 3.9 g/dL Normal 3.9-4.9 [facility] Comment on above: Order Comment: Ashly oakley Type: BLOOD SPECIMEN Ordering Facility: [facility] Address: [address] [place] [address] Performed By: #### 2 4323-8 #### [facility] CLIA [id number] [address] [place] [address] [facility] [facility] ALP [Catalytic activity/Vol] 57 U/L Normal 38-113 [facility] Comment on above: Order Comment: Ashly oakley Type: BLOOD SPECIMEN Ordering Facility: [facility] Address: [address] [place] [address] Performed By: #### 2 4323-8 #### [facility] CLIA [id number] [address] [place] [address] STATES [address] [facility] ALT With P-5'-P [Catalytic activity/Vol] 9 U/L Low 10-54 [facility] Comment on above: Order Comment: Ashly oakley Type: BLOOD SPECIMEN Ordering Facility: [facility] Address: [address] [address] Performed By: #### 2 4323-8 #### [facility] CLIA [id number] [address] [place] [address] [place] Anion gap [Moles/Vol] 11 mmol/L Normal 9-18 [facility] Comment on above: Order Comment: Speci men Type: BLOOD SPECIMEN Ordering Facility: [facility] Address: [address] [place] [address] Performed By: #### 2 4323-8 #### [facility] CLIA [id number] [address] [place] [address] [place] AST With P-5'-P [Catalytic activity/Vol] 9 U/L Low 14-40 [facility] Comment on above: Order Comment: Speci men Type: BLOOD SPECIMEN Ordering Facility: [facility] Address: [address] [place] [address] Performed By: #### 2 4323-8 #### [facility] CLIA [id number] [address] [place] [address] [place] Bilirubin [Mass/Vol] 0.6 mg/dL Normal 0.2-1.3 [facility] Comment on above: Order Comment: Speci men Type: BLOOD SPECIMEN Ordering Facility: [facility] Address: [address] [place] [address] Performed By: #### 2 4323-8 #### [facility] CLIA [id number] [address] [place] [address] [place] Calcium [Mass/Vol] 9.4 mg/dL Normal 8.5-10.2 [facility] Comment on above: Order Comment: Speci men Type: BLOOD SPECIMEN Ordering Facility: [facility] Address: [address] [place] [address] Performed By: #### 2 4323-8 #### [facility] CLIA [id number] [address] [place] [address] [place] Chloride [Moles/Vol] 97 mmol/L Normal 97-105 [facility] Comment on above: Order Comment: Speci men Type: BLOOD SPECIMEN Ordering Facility: [facility] Address: [address] [place] [address] Performed By: #### 2 4323-8 #### [facility] CLIA [id number] [address] [place] [address] [place] OF [facility] CO2 [Moles/Vol] 32 mmol/L High 22-30 [facility] Comment on above: Order Comment: Speci men Type: BLOOD SPECIMEN Ordering Facility: [facility] Address: [address] [place] [address] Performed By: #### 2 4323-8 #### [facility] CLIA [id number] [address] [place] [address] Creatinine [Mass/Vol] 1.48 mg/dL High 0.73-1.22 [facility] Comment on above: Order Comment: Speci men Type: BLOOD SPECIMEN Ordering Facility: [facility] Address: [address] [place] [address] Performed By: #### 2 4323-8 #### [facility] CLIA [id number] [address] [place] [address] ESTIMATED GLOMERULAR FILTRATION RATE 51 mL/min/1.73m??? Low >=60 [facility] Comment on above: Order Comment: Speci men Type: BLOOD SPECIMEN Ordering Facility: [facility] Address: [address] [place] [address] Result Comment: Shelli mated Glomerular Filtration Rate [...] GFR. Performed By: #### 2 4323-8 #### [facility] CLIA [id number] [address] [place] [address] [place] Glucose [Mass/Vol] 107 mg/dL High 74-99 [facility] Comment on above: Order Comment: Ashly oakley Type: BLOOD SPECIMEN Ordering Facility: [facility] Address: [address] [place] [address] Result Comment: The [place] [employer] (ADA) provides guidance for cutoff [...] Standards of Medical Care in Diabetes 2016, [place] [employer]. Diabetes Care. 2016.39(Suppl 1). Performed By: #### 2 4323-8 #### [facility] CLIA [id number] [address] [place] [address] [place] Potassium [Moles/Vol] 3.6 mmol/L Low 3.7-5.1 [facility] Comment on above: Order Comment: Ashly oakley Type: BLOOD SPECIMEN Ordering Facility: [facility] Address: [address] [place] [address] Performed By: #### 2 4323-8 #### [facility] CLIA [id number] [address] [place] [address] [place] Protein [Mass/Vol] 6.3 g/dL Normal 6.3-8.0 [facility] Comment on above: Order Comment: Ashly oakley Type: BLOOD SPECIMEN Ordering Facility: [facility] Address: [address] [place] [address] Performed By: #### 2 4323-8 #### [facility] CLIA [id number] [address] [place] [address] [place] Sodium [Moles/Vol] 140 mmol/L Normal 136-144 [facility] Comment on above: Order Comment: Speci men Type: BLOOD SPECIMEN Ordering Facility: [facility] Address: [address] [place] [address] Performed By: #### 2 4323-8 #### [facility] CLIA [id number] [address] [place] [address] [facility] Urea nitrogen [Mass/Vol] 20 mg/dL Normal 9-24 [facility] Comment on above: Order Comment: Speci men Type: BLOOD SPECIMEN Ordering Facility: [facility] Address: [address] [place] [address] Performed By: #### 2 4323-8 #### [facility] CLIA [id number] [address] [id number] [facility] ECG COMPLETEon 07-15-2022 ECG COMPLETE Ventricular Rate : 7 0 BPM Atrial Rate : 70 BPM P-R Interval : 116 ms QRS Duration : 136 ms Q-T Interval : 430 ms QTC Calculation(Bazett) : 464 ms Calculated P Spalding : 19 degrees Calculated R Spalding : -61 degrees Calculated T Spalding : 0 degrees NORMAL SINUS RHYTHM WITH SINUS ARRHYTHMIA POSSIBLE LEFT ATRIAL ENLARGEMENT LEFT AXIS DEVIATION RIGHT BUNDLE BRANCH BLOCK ABNORMAL ECG NO PREVIOUS ECGS AVAILABLE Confirmed by MD HUIZAR VINAY ([id number]) on 07/19/2022 8:54:07 AM NAME : HORACE HENDERSON PID : [id number] : 1955 Gender : Male Race : ORD : [id number] Procedure Date : Jul 15 2022 10:14:20 Edit Date : Jul 19 2022 08:54:08 Diagnosis: NORMAL SINUS RHYTHM WITH SINUS ARRHYTHMIA POSSIBLE LEFT ATRIAL ENLARGEMENT LEFT AXIS DEVIATION RIGHT BUNDLE BRANCH BLOCK ABNORMAL ECG NO PREVIOUS ECGS AVAILABLE Confirmed by MD HUIZAR VINAY ([id number]) on 07/19/2022 8:54:07 AM Test Reason : Chest Pain Location : 150 : [facility] Overread By : MD HUIAZR VINAY Edited By : MD HUIZAR VINAY Referred By : , Acquired by : NERY MITCHELL [facility] ED NOTEon 07-15-2022 ED NOTE HNO ID: [id number] Author: Payal SantosTOMMIE Service: Nursing Author Type: Registered Nurse Type: [...] 16, 2022 TIME: 4:05 PM [facility] ED NOTE HNO ID: [id number] Author: Mee Cordova RN Service: Nursing Author Type: Registered Nurse Type: ED Notes Filed: 07/15/2022 1:10 PM Note Text: Spoke with Dr Thacker, meal tray will be ordered for the patient [facility] ED NOTE HNO ID: [id number] Author: Mee Cordova RN Service: Nursing Author Type: Registered Nurse Type: ED Notes Filed: 07/15/2022 11:04 AM Note Text: I spoke to the patient concerning why he came to our facility. Pt stated, I was instructed to leave the Urgent Care and go either to [place] or [facility] to be evaluated, I don't think she wanted me to go back to [facility] after the lack of testing they did when I was there a few days ago". [facility] ED NOTE HNO ID: [id number] Author: Mee Cordova RN Service: Nursing Author Type: Registered Nurse Type: ED Notes Filed: 07/15/2022 10:39 AM Note Text: Patient informed: the name of medication, why we are giving it, possible side effects, what they may expect to feel, and was offered a chance to ask questions, prior to the administration of Fentanyl [facility] ED NOTE HNO ID: [id number] Author: Mee Cordova RN Service: Nursing Author [...] concerning pain medication for pt. [facility] ED NOTE HNO ID: [id number] Author: Mee Cordova RN Service: Nursing Author Type: Registered Nurse Type: ED Notes Filed: 07/15/2022 10:15 AM Note Text: Dr Thacker at bedside [facility] ED NOTE HNO ID: [id number] Author: Mee Cordova RN Service: Nursing Author Type: Registered Nurse Type: ED Notes Filed: 07/15/2022 10:14 AM Note Text: Resp at bedside for EKG [facility] ED NOTE HNO ID: [id number] Author: Mee Cordova RN Service: Nursing Author Type: Registered Nurse Type: ED Notes Filed: 07/15/2022 10:09 AM Note Text: Pt arrives from [facility] Urgent care with reports right lateral rib pain. Pt reports on Monday evening he had a coughing fit, and then the next thing I know I am on the ground, so I don't know if I passed out or not". Pt was seen at [facility] on Monday evening with report of "just chest xray, they didn't really say anything about the xray". Pt is AOX3, 97% on room air upon arrival to the room. [facility] ED PROV NOTEon 07-15-2022 ED PROV NOTE HNO ID: [id number] Author: Nahum Thacker MD Service: Emergency Medicine [...] "pop". He states he was seen at [facility] emergency department and had an x-ray that [...] disease) 01/11/2012 Chronic bronchitis (HCC) 10/07/2013 06/17/2014 RCT752% predicted. COPD (chronic obstructive pulmonary disease) (HCC) [...] 10/14/1996 SVG to diagonal. [facility]. CC CORONARY STENT 09/29/2021 Biotronik 2.5x22 [...] ear normal. (more content not included)... Normal [facility] Basophil percentageon 2020 Bilirubin [Mass/Vol] 0.40 mg/dL 0.20-1.00 [facility] Work Phone: Comment on above: For patients on eltr ombopag therapy, use of Dimension [place] TBIL is not recommended. Chloride [Moles/Vol] 101 mmol/L 98-107 [facility] Work Phone: Cholesterol [Mass/Vol] 128 mg/dL <200 [facility] Work Phone: Comment on above: <200 mg/dL Desirable 200-240 mg/dL Borderline >240 mg/dL High Risk Glucose [Mass/Vol] 97 mg/dL 74-106 [facility] Work Phone: Comment on above: Please note revised GLUCOSE reference range effective 2017. Potassium [Moles/Vol] 3.9 mmol/L 3.5-5.1 [facility] Work Phone: Protein [Mass/Vol] 7.1 g/dL 6.4-8.2 [facility] Work Phone: Sodium [Moles/Vol] 139 mmol/L 136-145 [facility] Work Phone: Triglyceride [Mass/Vol] 112 mg/dL [facility] Work Phone: Comment on above: The drugs N-Acetylcy steine and Metamizole may falsely depress this assay.Serum Triglycerides Reference Interval Normal <150 mg/dL Borderline high 150 - 199 mg/dL High 200 - 499 mg/dL Very High > or = 500 mg/dL Direct bilirubinon Bilirubin.direct [Mass/Vol] 0.13 mg/dL 0.00-0.30 [facility] Work Phone: Laboratory - Chemistry and C hemistry - challengeon 10-07-2021 ALP [Catalytic activity/Vol] 67 U/L 45-117 [facility] Work Phone: ALT [Catalytic activity/Vol] 27 U/L 16-61 [facility] Work Phone: CO2 [Moles/Vol] 34.0 mmol/L 21.0-32.0 [facility] Work Phone: Globulin (S) [Mass/Vol] 3.5 g/dL 2.2-4.2 [facility] Work Phone: Urea nitrogen/Creatinine [Mass ratio] 17.1 mg/mg 10-20 [facility] Work Phone: No Panel Informationon 10-07 Estimated GFR (MDRD) Amer 85 mL/min >60 [facility] Work Phone: Comment on above: GFR Calc Estimated GFR (MDRD) Non-Af Amer 70 mL/min >60 [facility] Work Phone: Comment on above: Non- GFR Calc Serum or plasma albumin jimbo urement (mass/volume)on 10-07-2021 Albumin [Mass/Vol] 3.6 g/dL 3.2-5.0 [facility] Work Phone: Serum or plasma calcium jimbo urement (mass/volume)on 10-07-2021 Calcium [Mass/Vol] 9.5 mg/dL 8.5-10.1 [facility] Work Phone: Serum or plasma cholesterol in HDL measurement (mass/volume)on 10-07-2021 Cholesterol in HDL [Mass/Vol] 58 mg/dL [facility] Work Phone: Comment on above: The drugs N-Acetylcy steine and Metamizole may falsely depress this assay. Reference Range HDL <40 mg/dL Low HDL Cholesterol HDL >or= 60 mg/dL High HDL Cholesterol Serum or plasma cholesterol in VLDL measurement (mass/volume)on 10-07-2021 Cholesterol in VLDL [Mass/Vol] 22 mg/dL 5-40 [facility] Work Phone: Serum or plasma creatinine m easurement (mass/volume)on 10-07-2021 Creatinine [Mass/Vol] 1.11 mg/dL 0.70-1.30 [facility] Work Phone: Comment on above: The validity of the calculated GFR & GFRAA in patients over 70 years has not been determined. Clinical correlation is essential. Serum or plasma low density lipoprotein (LDL) cholesterol measurement (mass/volume)on 10-07-2021 Cholesterol in LDL [Mass/Vol] 48 mg/dL 0-130 [facility] Work Phone: Serum or plasma urea nitroge n measurement (mass/volume)on 10-07-2021 Urea nitrogen [Mass/Vol] 19 mg/dL 7-18 [facility] Work Phone: Thin prep Papanicolaou smear with manual screeningon 10-07-2021 Thin prep Papanicolaou smear with manual screening 17 U/L 15-37 [facility] Work Phone: Thin prep Papanicolaou smear with manual screening 4 5-15 [facility] Work Phone: XR Lumbar spine 3 Viewson IMPRESSION: DEGENERATIVE CHANGE, MOST PRONOUNCED IN THE LOWER LUMBAR REGION. Wall Insulation Sprayer: TIMOTEO Transcribe Date/Time: Dec 29 2020 1:59P Dictated by : ASHLEY MARCUS MD This examination was interpreted and the report reviewed and electronically signed by: ASHLEY MARCUS MD on Dec 29 2020 2:09PM [facility] DIVISION OF RADIOLOGY * * *Final [...] L3 through S1. DIVISION OF RADIOLOGY Provider, Jenni Morales - 12/29/2020 * * *Final Report* * [...] MOST PRONOUNCED IN THE LOWER LUMBAR REGION. Wall Insulation Sprayer: PSCB Transcribe Date/Time: Dec 29 2020 1:59P Dictated by : ASHLEY MARCUS MD This examination was interpreted and the report reviewed and electronically signed by: ASHLEY MARCUS MD on Dec 29 2020 2:09PM EST [facility] Radiology Study observation (narrative) [facility] XR Lumbar spine 3 ViewsOrder ed By: [facility]cf Provider on 12-29-2020 [facility] Influenza virus A and B and SARS-CoV-2 (COVID-19) Ag panel - Upper respiratory specim SARS-CoV-2 (COVID-19) RNA JESSICA+probe Ql (Resp) [facility] Work Phone: Respiratory pathogens DNA an d RNA 12b panel JESSICA+probe (Unsp spec) Respiratory Panel (PCR) Influenza A (Subtype H1) [facility] Work Phone: Vital Signs Date Time Vital Sign Value Performing Clinician Facility 07-21-2025 08:05-0400 Body height 170.[address] George Vázquez MD Work Phone: [facility] 07-21-2025 08:05-0400 Body mass index (BMI) [Ratio] 25.7 kg/m2 Dr. George Vázquez MD Work Phone: [facility] 07-21-2025 08:05-0400 Body weight 74.[address] George Vázquez MD Work Phone: [facility] 07-07-2025 10:55-0400 Body mass index (BMI) [Ratio] 28.62 kg/m2 [facility] [employer]PER[employer]ELEVATOR STARTER Work Phone: [facility] 07-07-2025 10:55-0400 Body weight 81.9 kg [facility] [employer] SUPER[employer]ELEVATOR STARTER Work Phone: [facility] 07-07-2025 10:55-0400 Diastolic blood pressure 72 mm[Hg] [facility] MELT SUPERVISOR.ELEVATOR STARTER Work Phone: [facility] 07-07-2025 10:55-0400 Heart rate 86 /min [facility] MELT SUPERVISOR.ELEVATOR STARTER Work Phone: [facility] 07-07-2025 10:55-0400 SaO2% (BldA) [Mass fraction] 95 % [facility] [employer]EL[employer] SUPERVIS[employer]ELEVATOR STARTER Work Phone: [facility] 07-07-2025 10:55-0400 Systolic blood pressure 138 mm[Hg] [facility] [employer]ELT SUPERVISOR[employer]ELEVATOR STARTER Work Phone: [facility] 07-03-2025 12:02-0400 Body mass index (BMI) [Ratio] 29 kg/m2 Prateek Matos MELT SUPERVISOR.ELEVATOR STARTER Work Phone: [facility] 07-03-2025 12:02-0400 Body temperature 97.81 [degF] Prateek Matos MELT SUPERVISOR.ELEVATOR STARTER Work Phone: [facility] 07-03-2025 12:02-0400 Body weight 83 kg Prateek Matos MELT SUPERVISOR.ELEVATOR STARTER Work Phone: [facility] 07-03-2025 12:02-0400 Diastolic blood pressure 95 mm[Hg] Prateek Matos MELT SUPERVISOR.ELEVATOR STARTER Work Phone: [facility] Comment on above: checked BP x 2175/96 07-03-2025 12:02-0400 Heart rate 93 /min Prateek Matos MELT SUPERVISOR.ELEVATOR STARTER Work Phone: [facility] 07-03-2025 12:02-0400 Respiratory rate 22 /min Prateek Ewingbury MELT SUPERVISOR.ELEVATOR STARTER Work Phone: [facility] 07-03-2025 12:02-0400 SaO2% (BldA) [Mass fraction] 94 % Prateek Gandhisurinder MELT SUPERVISOR.ELEVATOR STARTER Work Phone: [facility] 07-03-2025 12:02-0400 Systolic blood pressure 167 mm[Hg] Prateek Gandhisurinder MELT SUPERVISOR.ELEVATOR STARTER Work Phone: [facility] Comment on above: checked BP x 2175/96 05-28-2025 13:37-0400 Diastolic blood pressure 81 mm[Hg] George Vázquez MD Work Phone: [facility] 05-28-2025 13:37-0400 Heart rate 72 /min George Vázquez MD Work Phone: [facility] 05-28-2025 13:37-0400 Systolic blood pressure 157 mm[Hg] George Vázquez MD Work Phone: [facility] 05-28-2025 13:28-0400 Body height 169.2 cm George Vázquez MD Work Phone: [facility] 05-28-2025 13:28-0400 Body mass index (BMI) [Ratio] 27.5 kg/m2 George Vázquez MD Work Phone: [facility] 05-28-2025 13:28-0400 Body weight 78.7 kg George Vázquez MD Work Phone: [facility] 05-05-2025 12:58-0400 Body height 170.[address] George Vázquez MD Work Phone: [facility] 05-05-2025 12:58-0400 Body mass index (BMI) [Ratio] 27.8 kg/m2 Dr. George Vázquez MD Work Phone: [facility] 05-05-2025 12:58-0400 Body weight 80.[address] George Vázquez MD Work Phone: [facility] 05-05-2025 12:58-0400 Diastolic blood pressure 77 mm[Hg] Dr. George Vázquez MD Work Phone: 4(413)871-741793 [place] [address] 05-05-2025 12:58-0400 Heart rate 80 /min Dr. George Vázquez MD Work Phone: 4(423)148-285493 [place] [address] 05-05-2025 12:58-0400 Respiratory rate 16 /min Dr. George Vázquez MD Work Phone: 9(778)278-572393 [place] [address] 05-05-2025 12:58-0400 Systolic blood pressure 135 mm[Hg] Dr. George Vázquez MD Work Phone: 9(697)777-812093 [place] [address] 01-20-2025 14:53-0400 Body height 170.[address] George Vázquez MD Work Phone: 6(573)998-733493 [place] [address] 01-20-2025 07:32-0400 Body mass index (BMI) [Ratio] 27.8 kg/m2 Dr. George Vázquez MD Work Phone: 9(965)161-556093 [place] [address] 01-20-2025 07:32-0400 Body weight 80.[address] George Vázquez MD Work Phone: 2(442)515-072993 [place] [address] 01-20-2025 07:32-0400 Diastolic blood pressure 79 mm[Hg] Dr. George Vázquez MD Work Phone: 1(507)514-490093 [place] [address] 01-20-2025 07:32-0400 Heart rate 82 /min Dr. George Vázquez MD Work Phone: 4(924)247-666593 [place] [address] 01-20-2025 07:32-0400 Respiratory rate 18 /min Dr. George Vázquez MD Work Phone: 1(623)163-644293 [place] [address] 01-20-2025 07:32-0400 SaO2% (BldA) [Mass fraction] 94 % Dr. George Vázquez MD Work Phone: 2(565)959-041793 [place] [address] 01-20-2025 07:32-0400 Systolic blood pressure 121 mm[Hg] Dr. George Vázquez MD Work Phone: [facility] 01-08-2025 15:27-0400 Body mass index (BMI) [Ratio] 27.45 kg/m2 George Vázquez MD Work Phone: [facility] 01-08-2025 15:27-0400 Body temperature 97.9 [degF] George Vázquez MD Work Phone: [facility] 01-08-2025 15:27-0400 Body weight 79.5 kg George Vázquez MD Work Phone: [facility] 01-08-2025 15:27-0400 Diastolic blood pressure 78 mm[Hg] George Vázquez MD Work Phone: [facility] 01-08-2025 15:27-0400 Heart rate 110 /min George Vázquez MD Work Phone: [facility] 01-08-2025 15:27-0400 Respiratory rate 20 /min George Vázquez MD Work Phone: [facility] 01-08-2025 15:27-0400 Systolic blood pressure 130 mm[Hg] George Vázquez MD Work Phone: [facility] 01-08-2025 10:51-0400 Body height 170.[address] George Vázquez MD Work Phone: [facility] 01-08-2025 10:43-0400 Diastolic blood pressure 89 mm[Hg] Dr. George Vázquez MD Work Phone: [facility] 01-08-2025 10:43-0400 Heart rate 70 /min Dr. George Vázquez MD Work Phone: [facility] 01-08-2025 10:43-0400 Respiratory rate 20 /min Dr. George Vázquez MD Work Phone: [facility] 01-08-2025 10:43-0400 Systolic blood pressure 159 mm[Hg] Dr. George Vázquez MD Work Phone: [facility] 11-06-2024 10:49-0500 Body weight 81.[address] George Vázquez MD Work Phone: 9(884)521-027793 [place] [address] 11-06-2024 10:49-0500 Heart rate 97 /min Dr. George Vázquez MD Work Phone: 8(887)291-607193 [place] [address] 11-06-2024 10:49-0500 SaO2% (BldA) [Mass fraction] 95 % Dr. George Vázquez MD Work Phone: 8(905)744-689793 [place] [address] 11-05-2024 13:04-0500 Body weight [address] George Vázquez MD Work Phone: 7(117)495-561993 [place] [address] 11-05-2024 13:04-0500 Diastolic blood pressure 81 mm[Hg] Dr. George Vázquez MD Work Phone: 5(973)210-666593 [place] [address] 11-05-2024 13:04-0500 Heart rate 119 /min Dr. George Vázquez MD Work Phone: 4(280)626-153193 [place] [address] 11-05-2024 13:04-0500 Respiratory rate 18 /min Dr. George Vázquez MD Work Phone: 6(202)142-323293 [place] [address] 11-05-2024 13:04-0500 SaO2% (BldA) [Mass fraction] 91 % Dr. George Vázquez MD Work Phone: 0(561)831-059193 [place] [address] 11-05-2024 13:04-0500 Systolic blood pressure 121 mm[Hg] Dr. George Vázquez MD Work Phone: 4(067)229-634393 [place] [address] 10-28-2024 16:00-0500 Heart rate 90 /min Dr. George Vázquez MD Work Phone: 5(643)941-293793 [place] [address] 10-28-2024 16:00-0500 Respiratory rate 18 /min Dr. George Vázquez MD Work Phone: 5(385)993-939593 [place] [address] 10-28-2024 14:00-0500 Body temperature 98.1 [degF] Dr. George Vázquez MD Work Phone: 6(957)757-622193 [place] [address] 10-28-2024 14:00-0500 Diastolic blood pressure 80 mm[Hg] Dr. George Vázquez MD Work Phone: 0(277)001-428493 [place] [address] 10-28-2024 14:00-0500 SaO2% (BldA) [Mass fraction] 93 % Dr. George Vázquez MD Work Phone: 0(155)245-649693 [place] [address] 10-28-2024 14:00-0500 Systolic blood pressure 120 mm[Hg] Dr. George Vázquez MD Work Phone: 9(442)402-496793 [place] [address] 10-28-2024 03:40-0500 Inhaled oxygen flow rate 2 L/min Dr. George Vázquez MD Work Phone: 0(271)284-947293 [place] [address] 10-27-2024 16:50-0500 Body mass index (BMI) [Ratio] 27.9 kg/m2 Dr. George Vázquez MD Work Phone: 4(659)705-106393 [place] [address] 10-27-2024 16:50-0500 Body weight [address] George Vázquez MD Work Phone: 2(227)884-048793 [place] [address] 09-17-2024 19:48-0500 Body temperature 98.2 [degF] Dr. George Vázquez MD Work Phone: 0(727)080-785493 [place] [address] 09-17-2024 19:48-0500 Diastolic blood pressure 74 mm[Hg] Dr. George Vázquez MD Work Phone: 8(062)558-518693 [place] [address] 09-17-2024 19:48-0500 Heart rate 78 /min Dr. George Vázquez MD Work Phone: 1(392)523-990193 [place] [address] 09-17-2024 19:48-0500 Respiratory rate 16 /min Dr. George Vázquez MD Work Phone: 5(467)875-415193 [place] [address] 09-17-2024 19:48-0500 SaO2% (BldA) [Mass fraction] 99 % Dr. George Vázquez MD Work Phone: 1(360)883-748093 [place] [address] 09-17-2024 19:48-0500 Systolic blood pressure 124 mm[Hg] Dr. George Vázquez MD Work Phone: [facility] 09-17-2024 15:53-0500 Body mass index (BMI) [Ratio] 28 kg/m2 Dr. George Vázquez MD Work Phone: [facility] 09-17-2024 15:53-0500 Body weight 81.[address] George Vázquez MD Work Phone: [facility] 09-12-2024 16:01-0500 Body mass index (BMI) [Ratio] 28.38 kg/m2 George Vázquez MD Work Phone: [facility] 09-12-2024 16:01-0500 Body temperature 98.91 [degF] George Vázquez MD Work Phone: [facility] 09-12-2024 16:01-0500 Body weight 82.2 kg George Vázquez MD Work Phone: [facility] 09-12-2024 16:01-0500 Diastolic blood pressure 84 mm[Hg] George Vázquez MD Work Phone: [facility] 09-12-2024 16:01-0500 Heart rate 130 /min George Vázquez MD Work Phone: [facility] 09-12-2024 16:01-0500 Respiratory rate 28 /min George Vázquez MD Work Phone: [facility] 09-12-2024 16:01-0500 SaO2% (BldA) [Mass fraction] 95 % George Vázquez MD Work Phone: [facility] 09-12-2024 16:01-0500 Systolic blood pressure 134 mm[Hg] George Vázquez MD Work Phone: [facility] 09-04-2024 15:37-0500 Body mass index (BMI) [Ratio] 28.62 kg/m2 George Vázquez MD Work Phone: [facility] 09-04-2024 15:37-0500 Body temperature 98.8 [degF] George Vázquez MD Work Phone: [facility] 09-04-2024 15:37-0500 Body weight 82.9 kg George Vzáquez MD Work Phone: [facility] 09-04-2024 15:37-0500 Diastolic blood pressure 74 mm[Hg] George Vázquez MD Work Phone: [facility] 09-04-2024 15:37-0500 Heart rate 96 /min George Vázquez MD Work Phone: [facility] 09-04-2024 15:37-0500 Respiratory rate 20 /min George Vázquez MD Work Phone: [facility] 09-04-2024 15:37-0500 SaO2% (BldA) [Mass fraction] 91 % George Vázquez MD Work Phone: [facility] 09-04-2024 15:37-0500 Systolic blood pressure 128 mm[Hg] George Vázquez MD Work Phone: [facility] 08-30-2024 10:38-0400 Body mass index (BMI) [Ratio] 28.31 kg/m2 Prateek Matos APRN.ELEVATOR STARTER Work Phone: [facility] 08-30-2024 10:38-0400 Body temperature 97.81 [degF] Prateek Matos MELT SUPERVISOR.ELEVATOR STARTER Work Phone: [facility] 08-30-2024 10:38-0400 Body weight 82 kg Prateek Matos MELT SUPERVISOR.ELEVATOR STARTER Work Phone: [facility] 08-30-2024 10:38-0400 Diastolic blood pressure 78 mm[Hg] Prateek Matos MELT SUPERVISOR.ELEVATOR STARTER Work Phone: [facility] 08-30-2024 10:38-0400 Heart rate 106 /min Prateek Matos APRN.ELEVATOR STARTER Work Phone: [facility] 08-30-2024 10:38-0400 Respiratory rate 24 /min Prateek Matos APRN.ELEVATOR STARTER Work Phone: [facility] 08-30-2024 10:38-0400 SaO2% (BldA) [Mass fraction] 94 % Prateek Matos APRN.ELEVATOR STARTER Work Phone: [facility] 08-30-2024 10:38-0400 Systolic blood pressure 130 mm[Hg] Prateek Matos APRN.ELEVATOR STARTER Work Phone: [facility] 08-25-2024 10:06-0400 Body mass index (BMI) [Ratio] 27.62 kg/m2 Blanche Nevarez APRN.ELEVATOR STARTER Work Phone: [facility] 08-25-2024 10:06-0400 Body temperature 97.39 [degF] Blanche Nevarez APRN.ELEVATOR STARTER Work Phone: [facility] 08-25-2024 10:06-0400 Body weight 80 kg Blanche Nevarez APRN.ELEVATOR STARTER Work Phone: [facility] 08-25-2024 10:06-0400 Diastolic blood pressure 78 mm[Hg] Blanche Nevarez APRN.ELEVATOR STARTER Work Phone: [facility] 08-25-2024 10:06-0400 Heart rate 83 /min Blanche Nevarez APRN.ELEVATOR STARTER Work Phone: [facility] 08-25-2024 10:06-0400 Respiratory rate 24 /min Blanche Nevarez APRN.ELEVATOR STARTER Work Phone: [facility] 08-25-2024 10:06-0400 SaO2% (BldA) [Mass fraction] 94 % Blanche Nevarez APRN.ELEVATOR STARTER Work Phone: [facility] 08-25-2024 10:06-0400 Systolic blood pressure 138 mm[Hg] Blanche Nevarez APRN.ELEVATOR STARTER Work Phone: [facility] 08-12-2024 08:52-0400 Body mass index (BMI) [Ratio] 27.69 kg/m2 Blanca Tilley APRN.ELEVATOR STARTER Work Phone: [facility] 08-12-2024 08:52-0400 Body weight 80.2 kg Blanca Alban MELT SUPERVISOR.ELEVATOR STARTER Work Phone: [facility] 08-12-2024 08:52-0400 Diastolic blood pressure 82 mm[Hg] Blanca Alban MELT SUPERVISOR.ELEVATOR STARTER Work Phone: [facility] 08-12-2024 08:52-0400 Heart rate 91 /min Blanca Alban MELT SUPERVISOR.ELEVATOR STARTER Work Phone: [facility] 08-12-2024 08:52-0400 Respiratory rate 20 /min Blanca Alban MELT SUPERVISOR.ELEVATOR STARTER Work Phone: [facility] 08-12-2024 08:52-0400 Systolic blood pressure 125 mm[Hg] Blanca Alban MELT SUPERVISOR.ELEVATOR STARTER Work Phone: [facility] 05-27-2024 12:02-0400 Body height 170.2 cm George Vázquez MD Work Phone: [facility] 05-27-2024 12:02-0400 Body mass index (BMI) [Ratio] 27.88 kg/m2 George Vázquez MD Work Phone: [facility] 05-27-2024 12:02-0400 Body temperature 98.6 [degF] George Vázquez MD Work Phone: [facility] 05-27-2024 12:02-0400 Body weight 80.74 kg George Vázquez MD Work Phone: [facility] 05-27-2024 12:02-0400 Diastolic blood pressure 72 mm[Hg] George Vázquez MD Work Phone: [facility] 05-27-2024 12:02-0400 Heart rate 80 /min George Vázquez MD Work Phone: [facility] 05-27-2024 12:02-0400 Respiratory rate 18 /min George Vázquez MD Work Phone: [facility] 05-27-2024 12:02-0400 Systolic blood pressure 116 mm[Hg] George Vázquez MD Work Phone: [facility] 11-23-2023 06:36-0500 Body height 170.[address] George Vázquez Work Phone: [facility] 11-23-2023 06:36-0500 Body mass index (BMI) [Ratio] 27.3 kg/m2 Dr. George Vázquez Work Phone: 9(483)424-196496 [address] 11-23-2023 06:36-0500 Body temperature 97.4 [degF] Dr. George Vázquez Work Phone: 3(267)801-763493 [place] [address] 11-23-2023 06:36-0500 Body weight 79.[address] George Vázquez Work Phone: 6(791)940-299193 [place] [address] 11-23-2023 06:36-0500 Diastolic blood pressure 81 mm[Hg] Dr. George Vázquez Work Phone: 3(566)284-743093 [place] [address] 11-23-2023 06:36-0500 Heart rate 106 /min Dr. George Vázquez Work Phone: 9(736)673-672593 [place] [address] 11-23-2023 06:36-0500 Respiratory rate 20 /min Dr. George Vázquez Work Phone: 6(745)078-456193 [place] [address] 11-23-2023 06:36-0500 SaO2% (BldA) [Mass fraction] 93 % Dr. George Vázquez Work Phone: 9(448)259-938618 [place] [address] 11-23-2023 06:36-0500 Systolic blood pressure 128 mm[Hg] Dr. George Vázquez Work Phone: 2(517)932-254393 [place] [address] 11-10-2023 09:48-0500 Body mass index (BMI) [Ratio] 27.2 kg/m2 Dr. George Vázquez Work Phone: 7(930)856-094118 [place] [address] 11-10-2023 09:48-0500 Body weight 78.[address] George Vázquez Work Phone: 1(506)437-362193 [place] [address] 11-10-2023 09:48-0500 Diastolic blood pressure 81 mm[Hg] Dr. George Vázquez Work Phone: 1(769)717-241893 [place] [address] 11-10-2023 09:48-0500 Heart rate 94 /min Dr. George Vázquez Work Phone: 6(074)612-777993 [place] [address] 11-10-2023 09:48-0500 Respiratory rate 18 /min Dr. George Vázquez Work Phone: 1(933)003-928693 [place] [address] 11-10-2023 09:48-0500 Systolic blood pressure 117 mm[Hg] Dr. George Vázquez Work Phone: 7(134)156-930093 [place] [address] 08-07-2023 10:03-0400 Body height 170.[address] George Vázquez Work Phone: 1(062)561-005193 [place] [address] 08-07-2023 10:03-0400 Body mass index (BMI) [Ratio] 27.1 kg/m2 Dr. George Vázquez Work Phone: 9(453)013-041493 [place] [address] 08-07-2023 10:03-0400 Body weight 78.[address] George Vázquez Work Phone: 9(627)071-570693 [place] [address] 08-07-2023 10:03-0400 Diastolic blood pressure 67 mm[Hg] Dr. George Vázquez Work Phone: 0(288)382-908193 [place] [address] 08-07-2023 10:03-0400 Heart rate 98 /min Dr. George Vázquez Work Phone: 0(189)495-252293 [place] [address] 08-07-2023 10:03-0400 Respiratory rate 20 /min Dr. George Vázquez Work Phone: 7(154)869-240893 [place] [address] 08-07-2023 10:03-0400 SaO2% (BldA) [Mass fraction] 94 % Dr. George Vázquez Work Phone: 1(679)134-967493 [place] [address] 08-07-2023 10:03-0400 Systolic blood pressure 107 mm[Hg] Dr. George Vázquez Work Phone: 9(879)410-528793 [place] [address] 07-28-2023 08:23-0400 Body mass index (BMI) [Ratio] 27.3 kg/m2 Dr. George Vázquez Work Phone: 5(210)992-049193 [place] [address] 07-28-2023 08:23-0400 Body temperature 97.4 [degF] Dr. George Vázquez Work Phone: 8(214)887-894293 [place] [address] 07-28-2023 08:23-0400 Body weight 79.[address] George Vázquez Work Phone: 4(314)674-104493 [place] [address] 07-28-2023 08:23-0400 Diastolic blood pressure 87 mm[Hg] Dr. George Vázquez Work Phone: 8(407)073-536193 [place] [address] 07-28-2023 08:23-0400 Heart rate 80 /min Dr. George Vázquez Work Phone: 6(228)371-893793 [place] [address] 07-28-2023 08:23-0400 Respiratory rate 18 /min Dr. George Vázquez Work Phone: 7(811)515-971093 [place] [address] 07-28-2023 08:23-0400 SaO2% (BldA) [Mass fraction] 94 % Dr. George Vázquez Work Phone: 5(776)747-947293 [place] [address] 07-28-2023 08:23-0400 Systolic blood pressure 143 mm[Hg] Dr. George Vázquez Work Phone: 6(409)086-022893 [place] [address] 07-21-2023 10:53-0400 Body temperature 98.7 [degF] Dr. George Vázquez Work Phone: 2(918)012-083693 [place] [address] 07-21-2023 10:53-0400 Diastolic blood pressure 76 mm[Hg] Dr. George Vázquez Work Phone: 3(503)755-947693 [place] [address] 07-21-2023 10:53-0400 Heart rate 78 /min Dr. George Vázquez Work Phone: 0(897)367-407093 [place] [address] 07-21-2023 10:53-0400 SaO2% (BldA) [Mass fraction] 95 % Dr. George Vázquez Work Phone: [facility] 07-21-2023 10:53-0400 Systolic blood pressure 125 mm[Hg] Dr. George Vázquez Work Phone: [facility] 06-19-2023 14:23-0400 Body mass index (BMI) [Ratio] 27.3 kg/m2 Dr. Goerge Vázquez Work Phone: [facility] 06-19-2023 14:23-0400 Body weight 79.[address] George Vázquez Work Phone: [facility] 06-19-2023 14:23-0400 Diastolic blood pressure 70 mm[Hg] Dr. George Vázquez Work Phone: [facility] 06-19-2023 14:23-0400 Heart rate 91 /min Dr. George Vázquez Work Phone: [facility] 06-19-2023 14:23-0400 Respiratory rate 18 /min Dr. George Vázquez Work Phone: [facility] 06-19-2023 14:23-0400 SaO2% (BldA) [Mass fraction] 94 % Dr. George Vázquez Work Phone: [facility] 06-19-2023 14:23-0400 Systolic blood pressure 104 mm[Hg] Dr. George Vázquez Work Phone: [facility] 05-24-2023 14:57-0400 Body height 169.2 cm George Vázquez MD Work Phone: [facility] 05-24-2023 14:57-0400 Body weight 78.93 kg George Vázquez MD Work Phone: [facility] 05-24-2023 14:57-0400 Diastolic blood pressure 64 mm[Hg] George Vázquez MD Work Phone: [facility] 05-24-2023 14:57-0400 Heart rate 96 /min George Vázquez MD Work Phone: [facility] 05-24-2023 14:57-0400 Respiratory rate 18 /min George Vázquez MD Work Phone: [facility] 05-24-2023 14:57-0400 SaO2% (BldA) [Mass fraction] 94 % George Vázquez MD Work Phone: [facility] 05-24-2023 14:57-0400 Systolic blood pressure 100 mm[Hg] George Vázquez MD Work Phone: [facility] 04-11-2023 13:02-0400 Body height 170.[address] George Vázquez Work Phone: [facility] 04-11-2023 13:02-0400 Body mass index (BMI) [Ratio] 26.6 kg/m2 Dr. George Vázquez Work Phone: [facility] 04-11-2023 13:02-0400 Body temperature 97.6 [degF] Dr. George Vázquez Work Phone: [facility] 04-11-2023 13:02-0400 Body weight 77.[address] George Vázquez Work Phone: [facility] 04-11-2023 13:02-0400 Diastolic blood pressure 64 mm[Hg] Dr. George Vázquez Work Phone: [facility] 04-11-2023 13:02-0400 Heart rate 85 /min Dr. George Vázquez Work Phone: [facility] 04-11-2023 13:02-0400 Respiratory rate 18 /min Dr. George Vázquez Work Phone: [facility] 04-11-2023 13:02-0400 SaO2% (BldA) [Mass fraction] 96 % Dr. George Vázquez Work Phone: [facility] 04-11-2023 13:02-0400 Systolic blood pressure 99 mm[Hg] Dr. George Vázquez Work Phone: [facility] 04-11-2023 09:20-0400 Body mass index (BMI) [Ratio] 26.9 kg/m2 Dr. George Vázquez Work Phone: [facility] 04-11-2023 09:20-0400 Body weight 78.[address] George Vázquez Work Phone: [facility] 04-11-2023 09:20-0400 Diastolic blood pressure 57 mm[Hg] Dr. George Vázquez Work Phone: 1(329)732-169318 [place] [address] 04-11-2023 09:20-0400 Heart rate 82 /min Dr. George Vázquez Work Phone: 1(645)496-602318 [place] [address] 04-11-2023 09:20-0400 Respiratory rate 18 /min Dr. George Vázquez Work Phone: 7(154)056-057718 [place] [address] 04-11-2023 09:20-0400 Systolic blood pressure 129 mm[Hg] Dr. George Vázquez Work Phone: 8(677)264-003518 [place] [address] 03-17-2023 17:08-0400 Diastolic blood pressure 83 mm[Hg] Dr. George Vázquez Work Phone: 6(570)619-307018 [place] [address] 03-17-2023 17:08-0400 Heart rate 76 /min Dr. George Vázquez Work Phone: 9(202)661-435918 [place] [address] 03-17-2023 17:08-0400 Respiratory rate 14 /min Dr. George Vázquez Work Phone: 9(728)492-374518 [place] [address] 03-17-2023 17:08-0400 SaO2% (BldA) [Mass fraction] 96 % Dr. George Vázquez Work Phone: 7(602)489-378418 [place] [address] 03-17-2023 17:08-0400 Systolic blood pressure 138 mm[Hg] Dr. George Vázquez Work Phone: 8(095)903-685818 [place] [address] 03-17-2023 15:33-0400 Body height 170.[address] George Vázquez Work Phone: 0(361)054-236918 [place] [address] 03-17-2023 15:33-0400 Body temperature 98 [degF] Dr. George Vázquez Work Phone: 7(023)994-535393 [place] [address] 03-17-2023 14:51-0400 Body mass index (BMI) [Ratio] 27.6 kg/m2 Dr. George Vázquez Work Phone: 5(474)095-019993 [place] [address] 03-17-2023 14:51-0400 Body temperature 97.6 [degF] Dr. George Vázquez Work Phone: 8(090)639-451193 [place] [address] 03-17-2023 14:51-0400 Body weight 79.[address] George Vázquez Work Phone: 7(707)393-306193 [place] [address] 03-17-2023 14:51-0400 Diastolic blood pressure 93 mm[Hg] Dr. George Vázquez Work Phone: 1(233)316-907418 [place] [address] 03-17-2023 14:51-0400 Heart rate 108 /min Dr. George Vázquez Work Phone: 2(793)298-795993 [place] [address] 03-17-2023 14:51-0400 Respiratory rate 18 /min Dr. George Vázquez Work Phone: 2(505)265-493293 [place] [address] 03-17-2023 14:51-0400 SaO2% (BldA) [Mass fraction] 95 % Dr. George Vázquez Work Phone: 6(650)052-827318 [place] [address] 03-17-2023 14:51-0400 Systolic blood pressure 137 mm[Hg] Dr. George Vázquez Work Phone: 6(614)896-134493 [place] [address] 02-03-2023 08:24-0400 Body height 170.[address] George Vázquez Work Phone: 3(442)159-700493 [place] [address] 02-03-2023 08:24-0400 Body mass index (BMI) [Ratio] 27.3 kg/m2 Dr. George Vázquez Work Phone: 7(928)340-567893 [place] [address] 02-03-2023 08:24-0400 Body temperature 97.6 [degF] Dr. George Vázquez Work Phone: [facility] 02-03-2023 08:24-0400 Body weight 79.[address] George Vázquez Work Phone: [facility] 02-03-2023 08:24-0400 Diastolic blood pressure 69 mm[Hg] Dr. George Vázquez Work Phone: [facility] 02-03-2023 08:24-0400 Heart rate 96 /min Dr. George Vázquez Work Phone: [facility] 02-03-2023 08:24-0400 Respiratory rate 16 /min Dr. George Vázquez Work Phone: [facility] 02-03-2023 08:24-0400 SaO2% (BldA) [Mass fraction] 95 % Dr. George Vázquez Work Phone: [facility] 02-03-2023 08:24-0400 Systolic blood pressure 121 mm[Hg] Dr. George Vázquez Work Phone: [facility] 01-18-2023 15:55-0400 Diastolic blood pressure 95 mm[Hg] George Vázquez MD Work Phone: [facility] 01-18-2023 15:55-0400 Heart rate 81 /min George Vázquez MD Work Phone: [facility] 01-18-2023 15:55-0400 Systolic blood pressure 162 mm[Hg] George Vázquez MD Work Phone: [facility] 01-18-2023 15:45-0400 Body weight 81.65 kg George Vázquez MD Work Phone: [facility] 01-18-2023 15:45-0400 Respiratory rate 16 /min George Vázquez MD Work Phone: [facility] 01-18-2023 15:45-0400 SaO2% (BldA) [Mass fraction] 95 % George Vázquez MD Work Phone: [facility] 01-13-2023 14:44-0400 Body mass index (BMI) [Ratio] 28 kg/m2 Dr. George Vázquez Work Phone: [facility] 01-13-2023 14:44-0400 Body weight 81.[address] George Vázquez Work Phone: [facility] 01-13-2023 14:44-0400 Diastolic blood pressure 89 mm[Hg] Dr. George Vázquez Work Phone: [facility] 01-13-2023 14:44-0400 Heart rate 88 /min Dr. George Vázquez Work Phone: [facility] 01-13-2023 14:44-0400 SaO2% (BldA) [Mass fraction] 94 % Dr. Geroge Vázquez Work Phone: [facility] 01-13-2023 14:44-0400 Systolic blood pressure 136 mm[Hg] Dr. George Vázquez Work Phone: [facility] 12-28-2022 08:45-0500 Body temperature 98.5 [degF] Dr. George Vázquez Work Phone: [facility] 12-28-2022 08:45-0500 Diastolic blood pressure 85 mm[Hg] Dr. George Vázquez Work Phone: [facility] 12-28-2022 08:45-0500 Heart rate 87 /min Dr. George Vázquez Work Phone: [facility] 12-28-2022 08:45-0500 Respiratory rate 16 /min Dr. George Vázquez Work Phone: [facility] 12-28-2022 08:45-0500 SaO2% (BldA) [Mass fraction] 95 % Dr. George Vázquez Work Phone: [facility] 12-28-2022 08:45-0500 Systolic blood pressure 131 mm[Hg] Dr. George Vázquez Work Phone: [facility] 12-28-2022 07:05-0500 Body mass index (BMI) [Ratio] 27.7 kg/m2 Dr. George Vázquez Work Phone: [facility] 12-28-2022 07:05-0500 Body weight 80.[address] George Vázquez Work Phone: 4(713)617-753418 [place] [address] 12-22-2022 15:01-0500 Body mass index (BMI) [Ratio] 26.9 kg/m2 Dr. George Vázquez Work Phone: 8(463)776-779193 [place] [address] 12-22-2022 15:01-0500 Body weight 78.[address] George Vázquez Work Phone: 1(424)808-917593 [place] [address] 12-22-2022 15:01-0500 Diastolic blood pressure 60 mm[Hg] Dr. George Vázquez Work Phone: 9(830)545-451693 [place] [address] 12-22-2022 15:01-0500 Heart rate 88 /min Dr. George Vázquez Work Phone: 2(752)548-096793 [place] [address] 12-22-2022 15:01-0500 Respiratory rate 16 /min Dr. George Vázquez Work Phone: 7(530)759-667093 [place] [address] 12-22-2022 15:01-0500 Systolic blood pressure 102 mm[Hg] Dr. George Vázquez Work Phone: 7(387)985-680218 [place] [address] 12-02-2022 16:45-0500 Body temperature 97.8 [degF] Dr. George Vázquez Work Phone: 5(529)539-944293 [place] [address] 12-02-2022 16:45-0500 Diastolic blood pressure 81 mm[Hg] Dr. George Vázquez Work Phone: 2(711)854-016893 [place] [address] 12-02-2022 16:45-0500 Heart rate 88 /min Dr. George Vázquez Work Phone: 7(514)586-849418 [place] [address] 12-02-2022 16:45-0500 Respiratory rate 16 /min Dr. George Vázquez Work Phone: 9(390)484-902093 [place] [address] 12-02-2022 16:45-0500 SaO2% (BldA) [Mass fraction] 91 % Dr. George Vázquez Work Phone: 9(438)936-188693 [place] [address] 12-02-2022 16:45-0500 Systolic blood pressure 114 mm[Hg] Dr. George Vázquez Work Phone: 4(594)945-303793 [place] [address] 12-02-2022 15:44-0500 Inhaled oxygen flow rate 2 L/min Dr. George Vázquez Work Phone: 7(987)282-395093 [place] [address] 12-02-2022 10:41-0500 Body height 170.[address] George Vázquez Work Phone: 1(658)898-949293 [place] [address] 12-02-2022 10:41-0500 Body mass index (BMI) [Ratio] 27.2 kg/m2 Dr. George Vázquez Work Phone: 8(537)239-813893 [place] [address] 12-02-2022 10:41-0500 Body weight [address] George Vázquez Work Phone: 0(345)073-917293 [place] [address] 12-01-2022 07:56-0500 Body mass index (BMI) [Ratio] 27.7 kg/m2 Dr. George Vázquez Work Phone: 6(618)772-553893 [place] [address] 12-01-2022 07:56-0500 Body temperature 97.4 [degF] Dr. George Vázquez Work Phone: 8(780)300-709093 [place] [address] 12-01-2022 07:56-0500 Body weight 80.[address] George Vázquez Work Phone: 4(171)340-960493 [place] [address] 12-01-2022 07:56-0500 Diastolic blood pressure 72 mm[Hg] Dr. George Vázquez Work Phone: 6(020)994-150293 [place] [address] 12-01-2022 07:56-0500 Heart rate 83 /min Dr. George Vázquez Work Phone: 0(918)936-230893 [place] [address] 12-01-2022 07:56-0500 Respiratory rate 17 /min Dr. George Vázquez Work Phone: [facility] 12-01-2022 07:56-0500 SaO2% (BldA) [Mass fraction] 93 % Dr. George Vázquez Work Phone: [facility] 12-01-2022 07:56-0500 Systolic blood pressure 127 mm[Hg] Dr. George Vázquez Work Phone: 9(431)186-521118 [place] [address] 11-22-2022 14:20-0500 Body temperature 98.91 [degF] Krislyn Aberegg PA Work Phone: 7(611)234-387766 [place] [address] 11-22-2022 14:20-0500 Diastolic blood pressure 76 mm[Hg] Krislyn Aberegg PA Work Phone: 3(852)094-674366 [place] [address] 11-22-2022 14:20-0500 Heart rate 94 /min Krislyn Aberegg PA Work Phone: 1(041)569-611866 [place] [address] 11-22-2022 14:20-0500 Respiratory rate 18 /min Krislyn Aberegg PA Work Phone: 6(394)649-729066 [place] [address] 11-22-2022 14:20-0500 SaO2% (BldA) [Mass fraction] 96 % Krislyn Aberegg PA Work Phone: [facility] 11-22-2022 14:20-0500 Systolic blood pressure 134 mm[Hg] Krislyn Aberegg PA Work Phone: [facility] 11-15-2022 08:59-0500 Body mass index (BMI) [Ratio] 26.6 kg/m2 Dr. George Vázquez Work Phone: 1(208)722-017418 [place] [address] 11-15-2022 08:59-0500 Body temperature 97.8 [degF] Dr. George Vázquez Work Phone: [phone] [place] [address] 11-15-2022 08:59-0500 Body weight 77.[address] George Vázquez Work Phone: 8(497)[phone] [place] [address] 11-15-2022 08:59-0500 Diastolic blood pressure 89 mm[Hg] Dr. George Vázquez Work Phone: 3(087)[phone] [place] [address] 11-15-2022 08:59-0500 Heart rate 84 /min Dr. George Vázquez Work Phone: 9(458)[phone] [place] [address] 11-15-2022 08:59-0500 Respiratory rate 18 /min Dr. George Vázquez Work Phone: 6(218)395-294993 [place] [address] 11-15-2022 08:59-0500 SaO2% (BldA) [Mass fraction] 94 % Dr. George Vázquez Work Phone: 1(669)619-533493 [place] [address] 11-15-2022 08:59-0500 Systolic blood pressure 126 mm[Hg] Dr. George Vázquez Work Phone: 0(267)366-982393 [place] [address] 10-30-2022 11:22-0500 Heart rate 81 /min Dr. George Vázquez Work Phone: 5(725)675-228293 [place] [address] 10-30-2022 11:22-0500 Respiratory rate 19 /min Dr. George Vázquez Work Phone: 4(038)800-157193 [place] [address] 10-30-2022 10:00-0500 Body temperature 97.8 [degF] Dr. George Vázquez Work Phone: 1(911)969-797193 [place] [address] 10-30-2022 10:00-0500 Diastolic blood pressure 72 mm[Hg] Dr. George Vázquez Work Phone: 7(490)681-936093 [place] [address] 10-30-2022 10:00-0500 Inhaled oxygen flow rate 2 L/min Dr. George Vázquez Work Phone: 2(020)500-707893 [place] [address] 10-30-2022 10:00-0500 SaO2% (BldA) [Mass fraction] 93 % Dr. George Vázquez Work Phone: 7(542)844-523793 [place] [address] 10-30-2022 10:00-0500 Systolic blood pressure 119 mm[Hg] Dr. George Vázuqez Work Phone: [facility] 10-30-2022 06:00-0500 Body weight 78.[address] George Vázquez Work Phone: [facility] 10-28-2022 05:01-0500 Body mass index (BMI) [Ratio] 26.6 kg/m2 Dr. George Vázquez Work Phone: [facility] 10-28-2022 03:44-0500 Body temperature 98.6 [degF] Dr. George Vázquez Work Phone: [facility] Work Phone: 10-28-2022 03:44-0500 Diastolic blood pressure 99 mm[Hg] Dr. George Vázquez Work Phone: [facility] Work Phone: 10-28-2022 03:44-0500 Heart rate 120 /min Dr. George Vázquez Work Phone: [facility] Work Phone: 10-28-2022 03:44-0500 Inhaled oxygen flow rate 2 L/min Dr. George Vázquez Work Phone: [facility] Work Phone: 10-28-2022 03:44-0500 Respiratory rate 25 /min Dr. George Vázquez Work Phone: [facility] Work Phone: 10-28-2022 03:44-0500 SaO2% (BldA) [Mass fraction] 95 % Dr. George Vázquez Work Phone: [facility] Work Phone: 10-28-2022 03:44-0500 Systolic blood pressure 138 mm[Hg] Dr. George Vázquez Work Phone: [facility] Work Phone: 10-28-2022 02:41-0500 Body height 170.[address] George Vázquez Work Phone: [facility] Work Phone: 10-28-2022 02:41-0500 Body mass index (BMI) [Ratio] 26.4 kg/m2 Dr. George Vázquez Work Phone: [facility] Work Phone: 10-28-2022 02:41-0500 Body weight 76.[address] George Vázquez Work Phone: [facility] Work Phone: 10-25-2022 13:03-0500 Body mass index (BMI) [Ratio] 27.2 kg/m2 Dr. George Vázquez Work Phone: 4(984)538-344793 [place] [address] 10-25-2022 13:03-0500 Body weight 78.[address] George Vázquez Work Phone: 3(031)691-690193 [place] [address] 10-25-2022 13:03-0500 Diastolic blood pressure 77 mm[Hg] Dr. George Vázquez Work Phone: 3(856)796-552493 [place] [address] 10-25-2022 13:03-0500 Heart rate 90 /min Dr. George Vázquez Work Phone: 5(655)009-382593 [place] [address] 10-25-2022 13:03-0500 SaO2% (BldA) [Mass fraction] 93 % Dr. George Vázquez Work Phone: 5(103)370-058793 [place] [address] 10-25-2022 13:03-0500 Systolic blood pressure 119 mm[Hg] Dr. George Vázquez Work Phone: 8(434)453-015296 [address] 08-04-2022 12:38-0400 Body height 170.[address] George Vázquez Work Phone: 8(775)727-392718 [place] [address] Work Phone: 08-04-2022 12:30-0400 Body mass index (BMI) [Ratio] 26 kg/m2 Dr. George Vázquez Work Phone: [facility] Work Phone: 08-04-2022 12:30-0400 Body temperature 97.9 [degF] Dr. George Vázquez Work Phone: [facility] Work Phone: 08-04-2022 12:30-0400 Body weight 75.[address] George Vázquez Work Phone: [facility] Work Phone: 08-04-2022 12:30-0400 Diastolic blood pressure 61 mm[Hg] Dr. George Vázquez Work Phone: [facility] Work Phone: 08-04-2022 12:30-0400 Heart rate 86 /min Dr. George Vázquez Work Phone: [facility] Work Phone: 08-04-2022 12:30-0400 Respiratory rate 16 /min Dr. George Vázquez Work Phone: [facility] Work Phone: 08-04-2022 12:30-0400 SaO2% (BldA) [Mass fraction] 90 % Dr. George Vázquez Work Phone: [facility] Work Phone: 08-04-2022 12:30-0400 Systolic blood pressure 94 mm[Hg] Dr. George Vázquez Work Phone: [facility] Work Phone: 07-28-2022 15:57-0400 Body temperature 98.49 [degF] George Vázquez MD Work Phone: [facility] 07-28-2022 15:57-0400 Body weight 76.66 kg George Vázquez MD Work Phone: [facility] 07-28-2022 15:57-0400 Diastolic blood pressure 68 mm[Hg] George Vázquez MD Work Phone: [facility] 07-28-2022 15:57-0400 Heart rate 96 /min George Vázquez MD Work Phone: [facility] 07-28-2022 15:57-0400 Respiratory rate 20 /min George Vázquez MD Work Phone: [facility] 07-28-2022 15:57-0400 SaO2% (BldA) [Mass fraction] 93 % George Vázquez MD Work Phone: [facility] 07-28-2022 15:57-0400 Systolic blood pressure 124 mm[Hg] George Vázquez MD Work Phone: [facility] 07-15-2022 09:04-0400 Body temperature 98.29 [degF] Michelle Athy PA-C Work Phone: [facility] 07-15-2022 09:04-0400 Body weight 80.38 kg Michelle Athy PA-C Work Phone: [facility] 07-15-2022 09:04-0400 Diastolic blood pressure 80 mm[Hg] Michelle Athy PA-C Work Phone: [facility] 07-15-2022 09:04-0400 Heart rate 106 /min Michelle Athy PA-C Work Phone: [facility] 07-15-2022 09:04-0400 Respiratory rate 22 /min Michelle Athy PA-C Work Phone: [facility] 07-15-2022 09:04-0400 SaO2% (BldA) [Mass fraction] 92 % Michelle Athy PA-C Work Phone: [facility] 07-15-2022 09:04-0400 Systolic blood pressure 132 mm[Hg] Michelle Athy PA-C Work Phone: [facility] 07-13-2022 18:44-0400 Diastolic blood pressure 67 mm[Hg] Dr. George Vázquez Work Phone: [facility] Work Phone: 07-13-2022 18:44-0400 Heart rate 82 /min Dr. George Vázquez Work Phone: [facility] Work Phone: 07-13-2022 18:44-0400 Respiratory rate 16 /min Dr. George Vázquez Work Phone: [facility] Work Phone: 07-13-2022 18:44-0400 SaO2% (BldA) [Mass fraction] 95 % Dr. George Vázquez Work Phone: [facility] Work Phone: 07-13-2022 18:44-0400 Systolic blood pressure 147 mm[Hg] Dr. George Vázquez Work Phone: [facility] Work Phone: 07-13-2022 16:46-0400 Body height 170.[address] George Vázquez Work Phone: [facility] Work Phone: 07-13-2022 16:46-0400 Body mass index (BMI) [Ratio] 26.9 kg/m2 Dr. George Vázquez Work Phone: [facility] Work Phone: 07-13-2022 16:46-0400 Body temperature 97.6 [degF] Dr. George Vázquez Work Phone: [facility] Work Phone: 07-13-2022 16:46-0400 Body weight 78.[address] George Vázquez Work Phone: [facility] Work Phone: 07-05-2022 11:02-0400 Body temperature 98.01 [degF] Nery Ibrahim APRN.ELEVATOR STARTER Work Phone: [facility] 07-05-2022 11:02-0400 Body weight 77.93 kg Nery Ibrahim APRN.ELEVATOR STARTER Work Phone: [facility] 07-05-2022 11:02-0400 Diastolic blood pressure 78 mm[Hg] Nery Praisler-Wood MELT SUPERVISOR.ELEVATOR STARTER Work Phone: [facility] 07-05-2022 11:02-0400 Heart rate 83 /min Nery Praisler-Wood MELT SUPERVISOR.ELEVATOR STARTER Work Phone: [facility] 07-05-2022 11:02-0400 Respiratory rate 18 /min Nery Praisler-Wood MELT SUPERVISOR.ELEVATOR STARTER Work Phone: [facility] 07-05-2022 11:02-0400 SaO2% (BldA) [Mass fraction] 97 % Nery Praisler-Wood MELT SUPERVISOR.ELEVATOR STARTER Work Phone: [facility] 07-05-2022 11:02-0400 Systolic blood pressure 124 mm[Hg] Nery Praisler-Wood MELT SUPERVISOR.ELEVATOR STARTER Work Phone: [facility] 07-04-2022 10:45-0400 SaO2% (BldA) [Mass fraction] 96 % Sharon Slabaugh PA-C Work Phone: [facility] 07-04-2022 10:35-0400 Body temperature 98.1 [degF] Sharon Slabaugh PA-C Work Phone: [facility] 07-04-2022 10:35-0400 Body weight 78.2 kg Sharon Slabaugh PA-C Work Phone: [facility] 07-04-2022 10:35-0400 Diastolic blood pressure 82 mm[Hg] Sharon Slabaugh PA-C Work Phone: [facility] 07-04-2022 10:35-0400 Heart rate 95 /min Sharon Slabaugh PA-C Work Phone: [facility] 07-04-2022 10:35-0400 Respiratory rate 18 /min Sharon Slabaugh PA-C Work Phone: [facility] 07-04-2022 10:35-0400 Systolic blood pressure 120 mm[Hg] Sharon Slabaugh PA-C Work Phone: [facility] 05-25-2022 08:36-0400 Body height 170.[address] George Vázquez Work Phone: [facility] Work Phone: 05-25-2022 08:36-0400 Body mass index (BMI) [Ratio] 27.3 kg/m2 Dr. George Vázquez Work Phone: [facility] Work Phone: 05-25-2022 08:36-0400 Body temperature 97.9 [degF] Dr. George Vázquez Work Phone: [facility] Work Phone: 05-25-2022 08:36-0400 Body weight 79.[address] George Vázquez Work Phone: [facility] Work Phone: 05-25-2022 08:36-0400 Diastolic blood pressure 80 mm[Hg] Dr. George Vázquez Work Phone: [facility] Work Phone: 05-25-2022 08:36-0400 Heart rate 95 /min Dr. George Vázquez Work Phone: [facility] Work Phone: 05-25-2022 08:36-0400 Respiratory rate 17 /min Dr. George Vázquez Work Phone: [facility] Work Phone: 05-25-2022 08:36-0400 SaO2% (BldA) [Mass fraction] 94 % Dr. George Vázquez Work Phone: [facility] Work Phone: 05-25-2022 08:36-0400 Systolic blood pressure 116 mm[Hg] Dr. George Vázquez Work Phone: [facility] Work Phone: 02-27-2022 00:19-0400 Body weight 82.[address] George Vázquez Work Phone: [facility] Work Phone: 02-14-2022 15:06-0400 Body mass index (BMI) [Ratio] 29.2 kg/m2 Dr. George Vázquez Work Phone: [facility] Work Phone: 02-14-2022 15:06-0400 Body weight 84.[address] George Vázquez Work Phone: [facility] Work Phone: 02-14-2022 15:06-0400 Diastolic blood pressure 64 mm[Hg] Dr. George Vázquez Work Phone: [facility] Work Phone: 02-14-2022 15:06-0400 Heart rate 85 /min Dr. George Vázquez Work Phone: [facility] Work Phone: 02-14-2022 15:06-0400 Respiratory rate 18 /min Dr. George Vázquez Work Phone: [facility] Work Phone: 02-14-2022 15:06-0400 Systolic blood pressure 103 mm[Hg] Dr. George Vázquez Work Phone: [facility] Work Phone: 02-14-2022 15:06-0400 Body height 170.[address] George Vázquez Work Phone: [facility] Work Phone: 02-14-2022 15:06-0400 Body mass index (BMI) [Ratio] 29.2 kg/m2 Dr. George Vázquez Work Phone: [facility] Work Phone: 02-14-2022 15:06-0400 Body weight 84.[address] George Vázquez Work Phone: [facility] Work Phone: 02-14-2022 15:06-0400 Diastolic blood pressure 64 mm[Hg] Dr. George Vázquez Work Phone: [facility] Work Phone: 02-14-2022 15:06-0400 Heart rate 85 /min Dr. George Vázquez Work Phone: [facility] Work Phone: 02-14-2022 15:06-0400 Respiratory rate 18 /min Dr. George Vázquez Work Phone: [facility] Work Phone: 02-14-2022 15:06-0400 Systolic blood pressure 103 mm[Hg] Dr. George Vázquez Work Phone: [facility] Work Phone: 02-14-2022 13:29-0400 Body weight 82.[address] George Vázquez Work Phone: [facility] Work Phone: 02-14-2022 13:29-0400 Body weight 82.[address] George Vázquez Work Phone: [facility] Work Phone: 02-01-2022 13:21-0400 Body mass index (BMI) [Ratio] 28.6 kg/m2 Dr. George Vázquez Work Phone: [facility] Work Phone: 02-01-2022 13:21-0400 Body temperature 98 [degF] Dr. George Vázquez Work Phone: [facility] Work Phone: 02-01-2022 13:21-0400 Body weight [address] George Vázquez Work Phone: [facility] Work Phone: 02-01-2022 13:21-0400 Diastolic blood pressure 69 mm[Hg] Dr. George Vázquez Work Phone: [facility] Work Phone: 02-01-2022 13:21-0400 Heart rate 97 /min Dr. George Vázquez Work Phone: [facility] Work Phone: 02-01-2022 13:21-0400 Respiratory rate 18 /min Dr. George Vázquez Work Phone: [facility] Work Phone: 02-01-2022 13:21-0400 SaO2% (BldA) [Mass fraction] 93 % Dr. George Vázquez Work Phone: [facility] Work Phone: 02-01-2022 13:21-0400 Systolic blood pressure 103 mm[Hg] Dr. George Vázquez Work Phone: [facility] Work Phone: 01-17-2022 10:26-0400 Body height 170.[address] George Vázquez Work Phone: [facility] Work Phone: 01-17-2022 10:26-0400 Body weight 82.[address] George Vázquez Work Phone: [facility] Work Phone: 12-22-2021 09:26-0500 Body weight 83.[address] George Vázquez Work Phone: [facility] Work Phone: 11-22-2021 13:45-0500 Body mass index (BMI) [Ratio] 28.1 kg/m2 Dr. George Vázquez Work Phone: [facility] Work Phone: 11-22-2021 13:45-0500 Body weight 81.[address] George Vázquez Work Phone: [facility] Work Phone: 11-22-2021 13:45-0500 Diastolic blood pressure 60 mm[Hg] Dr. George Vázquez Work Phone: [facility] Work Phone: 11-22-2021 13:45-0500 Heart rate 72 /min Dr. George Vázquez Work Phone: [facility] Work Phone: 11-22-2021 13:45-0500 SaO2% (BldA) [Mass fraction] 94 % Dr. George Vázquez Work Phone: [facility] Work Phone: 11-22-2021 13:45-0500 Systolic blood pressure 106 mm[Hg] Dr. George Vázquez Work Phone: [facility] Work Phone: 11-15-2021 13:52-0500 Diastolic blood pressure 64 mm[Hg] Dr. George Vázquez Work Phone: [facility] Work Phone: 11-15-2021 13:52-0500 Heart rate 76 /min Dr. George Vázquez Work Phone: [facility] Work Phone: 11-15-2021 13:52-0500 Systolic blood pressure 113 mm[Hg] Dr. George Vázquez Work Phone: [facility] Work Phone: 10-04-2021 14:30-0500 Body weight 81.[address] George Vázquez Work Phone: [facility] Work Phone: 10-04-2021 14:30-0500 Diastolic blood pressure 78 mm[Hg] Dr. George Vázquez Work Phone: [facility] Work Phone: 10-04-2021 14:30-0500 Heart rate 84 /min Dr. George Vázquez Work Phone: [facility] Work Phone: 10-04-2021 14:30-0500 Respiratory rate 16 /min Dr. George Vázquez Work Phone: [facility] Work Phone: 10-04-2021 14:30-0500 Systolic blood pressure 108 mm[Hg] Dr. George Vázquez Work Phone: [facility] Work Phone: 09-28-2021 23:31-0500 Body weight 82.[address] George Vázquez Work Phone: [facility] Work Phone: 10-05-2020 14:25-0500 Body mass index (BMI) [Ratio] 28.6 kg/m2 Dr. George Vázquez Work Phone: [facility] Work Phone: Encounters Encounter Date Encounter Type Care Provider Facility Start: 09-05-2025 ambulatory Ad Enamorado Facility: [facility] Start: 09-04-2025 ambulatory Vicente Andrews Fac ility:[facility] Start: 09-04-2025 Evaluation and management of inpatient Vicente Andrews Facility:[facility] Start: 09-03-2025 ambulatory GEORGE VÁZQUEZ Faci lity:[facility] Start: 09-01-2025 End: 09-01-2025 ambulatory GEORGE VÁZQUEZ Facility:[facility] Start: 08-29-2025 ambulatory Neptali Kaiser ty:[facility] Start: 08-25-2025 ambulatory Michael Narayan Facility :[facility] Start: 08-18-2025 End: 08-18-2025 ambulatory GEORGE VÁZQUEZ Facility:[facility] Start: 08-15-2025 End: 08-15-2025 ambulatory GEORGE VÁZQUEZ Facility:[facility] Start: 07-21-2025 End: 07-21-[address] Michael Narayan DO -[facility] Work Phone: Start: 07-21-2025 End: 07-21-[address] George Vázquez MD Work Phone: -[facility] Start: 07-15-2025 ambulatory GEORGE VÁZQUEZ Facyanira lity:[facility] Start: 07-15-2025 End: 07-15-2025 Subsequent hospital visit by physician Mri Radio [facility] (I-Stat/1.5t) Work Phone: Radiology Comment on above: Encounter for screen ing for other musculoskeletal disorder [Z13.828] Start: 07-08-2025 End: 07-08-2025 Patient encounter procedure Low Manny GAY Work Phone: [facility] Comment on above: Acute right hip pain ; Trochanteric bursitis of right hip; Unilateral primary osteoarthritis, right hip Start: 07-08-2025 End: 07-08-2025 ambulatory BLANCA TILLEY Facility:[facility] Start: 07-07-2025 End: 07-07-2025 Office outpatient visit 15 minutes Blanca Tilley MELT SUPERVISOR.ELEVATOR STARTER Work Phone: [facility] Comment on above: Acute right hip pain (Primary Dx); Primary osteoarthritis of right hip; Calcific tendinitis of right hip Start: 07-07-2025 End: 07-07-2025 ambulatory BLANCA TILLEY Facility:[facility] Start: 07-03-2025 End: 07-03-2025 Subsequent hospital visit by physician Xr [facility] Portal Work Phone: Radiology Comment on above: Pain of right hip [M 25.551] Start: 07-03-2025 End: 07-03-2025 Office outpatient visit 15 minutes Prateek Matos MELT SUPERVISOR.ELEVATOR STARTER Work Phone: [facility] Comment on above: Pain of right hip (P rimary Dx) Start: 07-03-2025 End: 07-03-2025 ambulatory GEORGE VÁZQUEZ Facility:[facility] Start: 06-14-2025 End: 06-14-[address] George Vázquez MD Work Phone: -Cat Scan [facility] Start: 06-14-2025 End: 06-14-2025 Patient encounter procedure Radha Roberts CAUL FAT PULLER-C -Cat Scan [facility] Work Phone: Start: 06-14-2025 End: 06-14-2025 ambulatory Radha Roberts NP Facility:[facility] Start: 05-28-2025 End: 05-28-2025 ambulatory GEORGE VÁZQUEZ Facility:[facility] Start: 05-28-2025 End: 05-28-2025 Patient encounter procedure George Vázquez MD Work Phone: [facility] Comment on above: Medicare annual well ness visit, subsequent (Primary Dx); 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; Hyperlipidemia, unspecified hyperlipidemia [...] End: 05-05-2025 Patient encounter procedure Daniel Saeed CAUL FAT PULLER-C -[facility] Work Phone: Start: 05-05-2025 End: 05-05-[address] George Vázquez MD Work Phone: -[facility] Start: 05-03-2025 End: 05-03-[address] George Vázquez MD Work Phone: -Laboratory Start: 05-03-2025 End: 05-03-2025 Patient encounter procedure Bhupendra DURAN -Laboratory Work Phone: Start: 05-03-2025 End: 05-03-2025 ambulatory Bhupendra Asif Facility:[facility] Start: 02-14-2025 End: 02-14-[address] Neptali Orellana MD -Laboratory Work Phone: Start: 02-14-2025 End: 02-14-2025 ambulatory Neptali Orellana Facility:[facility] Start: 02-05-2025 Non-patient / Non-visit Dr. Salvador miranda MD -[facility] Start: 02-05-2025 End: 02-05-[address] George Vázquez MD Work Phone: [facility] Work Phone: Start: 02-05-2025 End: 02-05-2025 Patient encounter procedure Bhupendra Angelalisa PA -Cardiovascular Services Work Phone: Start: 02-05-2025 End: 02-05-2025 ambulatory Bhupendrafrancesca Asif Facility:[facility] Start: 01-30-2025 End: 01-30-2025 Refill George Vázquez MD Work Phone: [facility] Comment on above: Med Change Request Start: 01-20-2025 End: 01-20-2025 Patient encounter procedure Bhupendra Asif PA -[facility] Work Phone: Start: 01-20-2025 End: 01-20-2025 ambulatory Bhupendraeamon Asif Facility:[facility] Start: 01-10-2025 End: 01-10-2025 Follow-up encounter George Vázquez MD Work Phone: [facility] Start: 01-08-2025 End: 01-08-2025 ambulatory GEORGE VÁZQUEZ Facility:[facility] Start: 01-08-2025 End: 01-08-2025 Office outpatient visit 25 minutes George Vázquez MD Work Phone: [facility] Comment on above: COPD (chronic obstru ctive pulmonary disease) with chronic bronchitis (HCC) (Primary Dx); Acute on chronic respiratory failure with hypoxia (HCC); Tobacco use disorder; 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; Kidney insufficiency Start: 01-08-2025 End: 01-08-2025 Telephone encounter George Vázquez MD Work Phone: [facility] Comment on above: Patient concern Start: 01-08-2025 End: 01-08-[address] Carrillo Malave MD -[facility] Work Phone: Start: 01-08-2025 End: 01-08-[address] George Vázquez MD Work Phone: [facility] Work Phone: Start: 01-08-2025 End: 01-08-2025 ambulatory Carrillo Malave Facility:[facility] Start: 12-09-2024 End: 12-09-2024 ambulatory Venita Quezada MA [facility] Start: 12-09-2024 End: 12-09-2024 Patient encounter procedure Venita Quezada MA [facility] Comment on above: Population Health Na vigation Outreach ([facility] Start: 11-27-2024 End: 11-27-[address] Neptali Orellana MD -[facility] Work Phone: Start: 11-26-2024 End: 11-27-2024 ambulatory Neptali Orellana Facility:[facility] Start: 11-26-2024 Non-patient / Non-visit Dr. Norah Malave MD -[facility] Work Phone: Start: 11-26-2024 End: 11-26-[address] Carrillo Malave MD -Pulmonary Services/Neurology Work Phone: Start: 11-26-2024 End: 11-26-2024 ambulatory Carrillo Malave Facility:[facility] Start: 11-11-2024 ambulatory Tevin Nelson Facility:[facility] Start: 11-11-2024 Non-patient / Non-visit Dr. Tevin cruz DO -[facility] Start: 11-06-2024 End: 11-06-2024 Patient encounter procedure Radha RICKETTS -Pulmonary Services/Neurology Work Phone: Start: 11-05-2024 End: 11-06-2024 ambulatory Carrillo Malave Facility:[facility] Start: 11-05-2024 End: 11-05-[address] Carrillo Malave MD -[facility] Work Phone: Start: 11-05-2024 End: 11-05-2024 Patient encounter procedure Radha Roberts CAUL FAT PULLER-C -Pulmonary Services/Neurology Work Phone: Start: 11-05-2024 End: 11-05-2024 ambulatory Radha Roberts NP Facility:[facility] Start: 10-28-2024 Non-patient / Non-visit [facility] Work Phone: Start: 10-28-2024 ambulatory Tomy Hanks Facility:[facility] Start: 10-28-2024 Non-patient / Non-visit Dr. Mallorie LOPEZ -[facility] Start: 10-27-2024 End: 10-28-2024 Evaluation and management of inpatient Dr. Vicente Andrews DO -[facility] Work Phone: Start: 10-27-2024 End: 10-28-2024 ambulatory Vicente Andrews Facility:[facility] Start: 10-27-2024 Non-patient / Non-visit [facility] Work Phone: Start: 09-24-2024 End: 09-24-2024 ambulatory Darlyn Moreno RN [facility] Start: 09-24-2024 End: 09-24-2024 Follow-up encounter Darlyn Moreno RN [facility] Comment on above: CDM (CHRONIC DISEASE MANAGEMENT OON ED Follow up Call/) Start: 09-20-2024 End: 09-23-2024 ambulatory Darlyn Moreno RN [employer] Start: 09-20-2024 End: 09-23-2024 Follow-up encounter Darlyn Moreno frequency checkerM[employer] Layer Management Comment on above: CDM (Chronic Disease Management OON ED Follow up Call/) Start: 09-18-2024 End: 09-18-2024 Telephone encounter George Vázquez MD Work Phone: Internal Medicine Portal Comment on above: Consult Start: 09-17-2024 End: 09-17-2024 Emergency department patient visit Dr. Francisco Murillo MD -Emergency Department Work Phone: Start: 09-17-2024 End: 09-18-2024 Refill Blanca Tilley APRN.ELEVATOR STARTER Work Phone: Internal Medicine Portal Comment on above: Refill Request Start: 09-12-2024 End: 09-12-2024 Office outpatient visit 25 minutes George Vázquez MD Work Phone: [facility] [place] Comment on above: Dyspnea, unspecified type (Primary Dx); 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; COPD (chronic obstructive pulmonary disease) with chronic bronchitis (HCC); Sinus tachycardia Start: 09-12-2024 End: 09-12-2024 ambulatory GEORGE VÁZQUEZ Facility:[facility] Start: 09-09-2024 End: 09-12-2024 ambulatory Sarah Carter PA-C Work Phone: Pulmonary Medicine Start: 09-04-2024 End: 09-04-2024 Office outpatient visit 25 minutes George Vázquez MD Work Phone: Internal [facility] [place] Comment on above: COPD with exacerbati on (HCC) (Primary Dx); 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 Start: 09-04-2024 End: 09-04-2024 Telephone encounter George Vázquez MD Work Phone: Internal Medicine [place] Comment on above: Patient Update Start: 08-30-2024 End: 08-30-2024 Subsequent hospital visit by physician Xr [facility] Portal Work Phone: Radiology Comment on above: Subacute cough [R05. 2] Start: 08-30-2024 End: 08-30-2024 Office outpatient visit 25 minutes Prateek Matos APRN.ELEVATOR STARTER Work Phone: [facility] Comment on above: Subacute cough (Prim lakeshia Dx); COPD with exacerbation (HCC) Start: 08-26-2024 End: 08-26-2024 Telephone encounter Blanche Nevarez APRN.ELEVATOR STARTER Work Phone: [facility] Comment on above: Medication Problem Start: 08-25-2024 End: 08-25-2024 Patient encounter procedure Blanche Roque MELT SUPERVISOR.ELEVATOR STARTER Work Phone: [facility] Comment on above: Respiratory infectio n (Primary Dx); Thrush Start: 08-21-2024 End: 08-21-2024 ambulatory Darlyn Moreno RN [employer] Comment on above: CDM (Chronic Disease Management Routine Call/) Start: 08-12-2024 End: 08-12-2024 Patient encounter procedure Blanca Tilley APRN.ELEVATOR STARTER Work Phone: Internal Medicine [place] Comment on above: Chest wall pain (Maricarmen roxanna Dx); Chronic bronchitis, unspecified chronic bronchitis type (HCC); Hyperlipidemia, unspecified hyperlipidemia type; Impaired glucose metabolism Start: 07-24-2024 End: 07-24-2024 ambulatory Darlyn Moreno RN [employer] Comment on above: CDM (Chronic Disease Management Routine Call/) Start: 07-22-2024 End: 07-26-2024 Refill Blanca Tilley APRN.ELEVATOR STARTER Work Phone: Internal Medicine [place] Comment on above: Refill Request Start: 07-11-2024 End: 07-11-2024 ambulatory Hedy Sprague RN [employer] Comment on above: CDM (Telephonic Outr each) Start: 07-10-2024 End: 07-10-2024 ambulatory Hedy Sprague RN [employer] Comment on above: CDM (Telephonic Outr each) Start: 06-18-2024 End: 06-19-2024 ambulatory Darlyn Moreno RN [employer] Comment on above: Community Monitoring Outreach Start: 06-13-2024 Refill George burdick MD Work Phone: Internal Medicine [place] Comment on above: Refill Request Start: 05-27-2024 End: 05-27-2024 Patient encounter procedure George Vázquez MD Work Phone: Internal Medicine Portal Comment on above: Medicare annual well ness visit, subsequent (Primary Dx); 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; Hyperlipidemia, unspecified hyperlipidemia type; Chronic bronchitis, unspecified chronic bronchitis type (HCC); Primary hypertension; Screening for depression; Encounter for screening examination for other mental health and behavioral disorders; Gastroesophageal reflux disease, unspecified whether esophagitis present; Achilles tendinitis of both lower extremities; Acute on chronic respiratory failure with hypoxia (HCC) Start: 05-22-2024 ambulatory Darlyn M Staff ord frequency [employer]er[employer] Comment on above: Community Monitoring Outreach Start: 05-15-2024 Refill Blanca yanez APRN.CNP Work Phone: Internal Medicine Portal Comment on above: Refill Request Start: 04-25-2024 ambulatory Darlyn Champagne Staff ord frequency checkerM[employer] Comment on above: Community Monitoring Outreach Start: 02-29-2024 Refill George burdick MD Work Phone: Internal Medicine Portal Comment on above: Refill Request Start: 01-23-2024 ambulatory Darlyn Champagne Staff ord frequency checkerM[employer] Comment on above: Community Monitoring Outreach Start: 12-08-2023 Non-patient / Non-visit Dr. Norma Vázquez Work Phone: [facility] Start: 12-08-2023 End: 12-08-[address] George Vázquez Work Phone: [facility] Work Phone: Start: 12-08-2023 End: 12-08-[address] George [facility]áz[facility] Work Phone: Start: 12-06-2023 ambulatory Darlyn Champagne Staff ord frequency checkerM[employer] Comment on above: Community Monitoring Outreach Start: 11-23-2023 End: 11-23-[address] [facility] Work Phone: Start: 11-10-2023 End: 11-10-[address] George Vázquez Work Phone: [facility] Work Phone: Start: 10-18-2023 End: 10-18-2023 Subsequent hospital visit by physician Xr [facility] Work Phone: Radiology Comment on above: SOB (shortness of br eath) [R06.02] Start: 10-04-2023 Refill Blanca ma MELT SUPERVISOR.ELEVATOR STARTER Work Phone: Internal Medicine Portal Comment on above: Refill Request Start: 10-02-2023 Orders Only Blanca ma MELT SUPERVISOR.ELEVATOR STARTER Work Phone: Internal Medicine Portal Start: 09-29-2023 Refill George burdick MD Work Phone: Internal Medicine Portal Comment on above: Refill Request Start: 09-07-2023 Refill George burdick MD Work Phone: Internal Medicine Portal Comment on above: Refill Request Start: 08-24-2023 Refill George burdick MD Work Phone: Internal Medicine Portal Comment on above: Refill Request Start: 08-17-2023 End: 08-17-[address] George Vázquez Work Phone: [facility] Work Phone: Start: 08-17-2023 End: 08-17-[address] George Vázquez Work Phone: [facility]-Pulmonary Services/Neurology Work Phone: Start: 08-11-2023 End: 08-11-[address] George Vázquez Work Phone: [facility] Work Phone: Start: 08-11-2023 End: 08-11-[address] George Vázquez Work Phone: [facility]-Laboratory, Specimen Work Phone: Start: 08-07-2023 End: 08-07-[address] George Vázquez Work Phone: [facility] Work Phone: Start: 08-07-2023 End: 08-07-[address] George Vázquez Work Phone: [facility]-Cat Scan, [facility] Work Phone: Start: 08-07-2023 End: 08-07-[address] George Vázquez Work Phone: [facility] Work Phone: Start: 08-04-2023 End: 08-04-[address] George Vázquez Work Phone: [facility]-Laboratory Work Phone: Start: 07-28-2023 End: 07-28-[address] George Vázquez Work Phone: [facility]-Pulmonary Medicine [facility] Work Phone: Start: 07-21-2023 End: 07-21-[address] Goerge Vázquez Work Phone: [facility]-Laboratory, Specimen Work Phone: Start: 07-21-2023 End: 07-21-[address] George Vázquez Work Phone: [facility] Work Phone: Start: 07-03-2023 Refill George burdick MD Work Phone: Internal Medicine Portal Comment on above: Refill Request Start: 06-20-2023 Refill George burdick MD Work Phone: Internal Medicine Portal Comment on above: Refill Request Start: 06-19-2023 End: 06-19-[address] George Vázquez Work Phone: [facility] Work Phone: Start: 06-01-2023 ambulatory Darlyn Corral ord frequency checkerM[employer] Comment on above: Community Monitoring Outreach Start: 05-31-2023 End: 05-31-[address] George Vázquez Work Phone: [facility] Work Phone: Start: 05-31-2023 End: 05-31-[address] George Vázquez [facility] Phone[facility] Work Phone: Start: 05-29-2023 End: 05-29-2023 Nursing evaluation of patient and report Nurse Mark [facility] Work Phone: General Surgery Comment on above: Infected cyst of ski n (Primary Dx); Skin cyst Start: 05-24-2023 Non-patient / Non-visit Dr. Norma Vázquez Work Phone: [facility] Start: 05-24-2023 End: 05-24-[address] George Vázquez Work Phone: [facility] Work Phone: Start: 05-24-2023 End: 05-24-2023 Patient encounter procedure George Vázquez MD Work Phone: Internal Medicine Portal Comment on above: Medicare annual well ness visit, subsequent (Primary Dx); Primary hypertension; Chronic bronchitis, unspecified chronic bronchitis type (HCC); Acute on chronic respiratory failure with hypoxia (HCC); 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; Gastroesophageal reflux disease, unspecified whether esophagitis present; Tobacco use disorder; Hyperlipidemia, unspecified hyperlipidemia type Start: 05-12-2023 Non-patient / Non-visit Dr. Norma Vázquez Work Phone: [facility] Start: 05-11-2023 End: 05-11-[address] George Vázquez Work Phone: [facility] Work Phone: Start: 05-11-2023 End: 05-11-[address] George Vázquez Work Phone: [facility]-Pulmonary Services/Neurology Work Phone: Start: 04-20-2023 End: 04-20-[address] George Vázquez Work Phone: [facility] Gastroenterology Work Phone: Start: 04-11-2023 End: 04-11-[address] George [facility]ázquez [facility] Work Phone: Start: 04-11-2023 End: 04-11-[address] George Vázquez Work Phone: [facility] Work Phone: Start: 04-06-2023 End: 04-06-[address] George Vázquez Work Phone: [facility] Work Phone: Start: 04-06-2023 End: 04-06-[address] George Vázquez Work Phone: [facility]-Physical Therapy Start: 03-17-2023 End: 03-17-2023 Emergency department patient visit Dr. George Vázquez Work Phone: [facility]-Emergency Department Start: 03-17-2023 End: 03-17-[address] George Vázquez [facility] Phone[facility] Start: 02-03-2023 End: 02-03-[address] George Vázquez [facility] Phone[facility] Start: 01-28-2023 End: 01-28-[address] George Vázquez Work Phone: [facility] Work Phone: Start: 01-28-2023 End: 01-28-[address] George Vázquez Work Phone: [facility]-Laboratory, Specimen Start: 01-24-2023 Telephone encounter George morales MD Work Phone: Internal Medicine Portal Comment on above: Results Start: 01-24-2023 End: 01-24-[address] George Vázquez Work Phone: [facility]-Laboratory Start: 01-18-2023 End: 01-18-2023 Patient encounter procedure George Vázquez MD Work Phone: Internal Medicine Portal Comment on above: Primary hypertension (Primary Dx); 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; Hyperlipidemia, unspecified hyperlipidemia type; Chronic bronchitis, unspecified chronic bronchitis type (HCC); Acute on chronic respiratory failure with hypoxia (HCC); Need for vaccination Start: 01-13-2023 End: 01-13-[address] George Vázquez Work Phone: [facility] Gastroenterology Start: 12-28-2022 Non-patient / Non-visit Dr. Norma Vázquez Work Phone: [facility] Start: 12-28-2022 End: 12-28-2022 Admission to same day surgery center Dr. George Vázquez Work Phone: [facility]-Endoscopy Start: 12-22-2022 End: 12-22-[address] Georeg Vázquez Work Phone: [facility] Start: 12-15-2022 End: 12-15-[address] George Vázquez Work Phone: [facility] Start: 12-13-2022 End: 12-13-[address] George Vázquez Work Phone: [facility] Work Phone: Start: 12-13-2022 End: 12-13-[address] George Vázquez Work Phone: [facility] Start: 12-13-2022 Telephone encounter George morales MD Work Phone: Internal Medicine Portal Comment on above: Rx issue; vaccne que stion. Start: 12-05-2022 Refill George burdick MD Work Phone: Internal Medicine Portal Comment on above: Refill Request Start: 12-02-2022 End: 12-02-2022 Non-patient / Non-visit Dr. George Vázquez Work Phone: [facility] Start: 12-02-2022 Non-patient / Non-visit Dr. Norma Vázquez Work Phone: [facility] Start: 12-02-2022 End: 12-02-2022 Admission to same day surgery center Dr. George Vázquez Work Phone: [facility]-Surgical Day Care Start: 12-01-2022 End: 12-01-[address] George Vázquez [facility] Phone[facility] Start: 11-30-2022 End: 11-30-2022 Non-patient / Non-visit Dr. George Vázquez Work Phone: [facility] Start: 11-22-2022 End: 11-22-2022 Subsequent hospital visit by physician [facility] Work Phone: Radiology Comment on above: Acute pain of right shoulder [M25.511] Start: 11-22-2022 End: 11-22-2022 Patient encounter procedure Kelly DURAN Work Phone: [facility] Comment on above: Acute pain of right shoulder (Primary Dx); Strain of right shoulder, initial encounter Start: 11-15-2022 End: 11-15-[address] George Vázquez Work Phone: [facility] Start: 11-11-2022 Refill George burdick MD Work Phone: Internal Medicine Portal Comment on above: Med Change Request Start: 11-09-2022 End: 11-09-[address] George Vázquez Work Phone: [facility] Start: 11-09-2022 Refill George burdick MD Work Phone: Internal Medicine Portal Comment on above: Refill Request Start: 11-03-2022 End: 11-03-[address] George Vázquez Work Phone: [facility] Work Phone: Start: 11-03-2022 End: 11-03-[address] George Vázquez Work Phone: [facility] Start: 10-30-2022 Non-patient / Non-visit Dr. Norma Vázquez Work Phone: [facility] Start: 10-29-2022 Non-patient / Non-visit Dr. Norma Vázquez Work Phone: [facility] Start: 10-28-2022 End: 10-30-2022 Evaluation and management of inpatient Dr. George Vázquez Work Phone[facility] Start: 10-27-2022 End: 10-27-[address] George Vázquez Work Phone: [facility] Work Phone: Start: 10-27-2022 End: 10-27-[address] George Vázquez Work Phone: [facility]-Pulmonary Services/Neurology Start: 10-26-2022 Refill George burdick MD Work Phone: Internal Medicine Portal Comment on above: Refill Request Start: 10-25-2022 End: 10-25-[address] George Vázquez Work Phone: [facility] Gastroenterology Start: 10-18-2022 ambulatory George burdick MD Work Phone: Internal Medicine Portal Comment on above: Renew medication Start: 10-13-2022 Refill Blanca Older MELT SUPERVISOR .ELEVATOR STARTER Work Phone: Internal [facility] Comment on above: Refill Request Start: 10-03-2022 End: 10-03-[address] George Vázquez Work Phone: [facility] Work Phone: Start: 10-03-2022 End: 10-03-[address] George Vázquez [facility] Start: 09-26-2022 Refill Blanca Older MELT SUPERVISOR .ELEVATOR STARTER Work Phone: Internal [facility] Comment on above: Refill Request Start: 09-16-2022 Refill Blanca Older MELT SUPERVISOR .ELEVATOR STARTER Work Phone: Internal [facility] Comment on above: Refill Request Start: 09-07-[address] Hetal Vázquez Work Phone: [facility] Start: 09-05-2022 Refill Blanca Older MELT SUPERVISOR .ELEVATOR STARTER Work Phone: Internal Medicine Portal Comment on above: Refill Request Start: 08-31-2022 End: 08-31-[address] George Vázquez Work Phone: [facility] Work Phone: Start: 08-31-2022 End: 08-31-[address] George Vázquez Work Phone: [facility]-Nuclear Medicine, [facility] Start: 08-21-2022 Refill Blanca Older MELT SUPERVISOR .ELEVATOR STARTER Work Phone: Internal Medicine Portal Comment on above: Refill Request Start: 08-15-2022 Refill Blanca Older MELT SUPERVISOR .ELEVATOR STARTER Work Phone: Internal Medicine Portal Comment on above: Refill Request Start: 08-04-2022 End: 08-04-[address] George Vázquez Work Phone: [facility]-Pulmonary Medicine [facility] Start: 08-03-2022 Orders Only Low Sanders Work Phone: Family Medicine Portal Comment on above: Primary osteoarthrit is of right knee (Primary Dx) Start: 07-28-2022 End: 07-28-[address] George Vázquez Work Phone: [facility] Work Phone: Start: 07-28-2022 End: 07-28-2022 Patient encounter procedure George Vázquez MD Work Phone: Internal Medicine Portal Comment on above: Cough syncope (Prima ry Dx); Contusion of right chest wall, subsequent encounter; Gallstones Start: 07-26-[address] Hetal Vázquez Work Phone: [facility]-Physical Therapy Start: 07-15-2022 End: 07-15-2022 Emergency department patient visit GEORGE VÁZQUEZ Facility:[facility] Start: 07-15-2022 End: 07-15-2022 Patient encounter procedure Michelle Alonzo PA-C Work Phone: [facility] Comment on above: Pleuritic chest pain (Primary Dx) Start: 07-13-2022 End: 07-13-2022 Emergency department patient visit Dr. George Vázquez Work Phone: [facility]-Emergency Department Start: 07-11-[address] Hetal Vázquez [facility] Phone[facility] Start: 07-05-2022 Telephone encounter George morales MD Work Phone: Internal Medicine Portal Comment on above: Covid 19 Concern Start: 07-05-2022 End: 07-05-2022 Patient encounter procedure Nery RoseLupe MELT SUPERVISOR.ELEVATOR STARTER Work Phone: [facility] Comment on above: Suspected COVID-19 v irus infection (Primary Dx) Start: 07-04-2022 End: 07-04-2022 Patient encounter procedure Sharon Zamora PA-C Work Phone: [facility] Comment on above: Oral candidiases (Pr imary Dx) Start: 06-29-2022 Refill George burdick MD Work Phone: Internal Medicine Portal Comment on above: Refill Request Start: 06-26-2022 Refill George burdick MD Work Phone: Internal Medicine Portal Comment on above: Refill Request Start: 06-19-2022 Refill Blanca Older MELT SUPERVISOR .ELEVATOR STARTER Work Phone: Internal [facility] Comment on above: Refill Request Start: 06-09-2022 End: 06-09-[address] George Vázquez Work Phone: [facility] Start: 06-07-[address] Hetal Vázquez Work Phone: [facility] Start: 05-29-2022 Refill Blanca Older MELT SUPERVISOR .ELEVATOR STARTER Work Phone: Internal Medicine Portal Comment on above: Refill Request Start: 05-25-2022 ambulatory Josh Cornell RN Ambulatory Best Practice Alerts Comment on above: Community Monitoring Outreach (COPD Telephonic CDM Outreach) Start: 05-25-2022 End: 05-25-[address] George Vázquez [facility] Phone[facility] Start: 05-24-2022 Refill Low Sanders Work Phone: [facility] [place] Start: 05-16-2022 Telephone encounter George morales MD Work Phone: Internal [facility] [place] Comment on above: fax to outside - gas tro referral Start: 05-10-2022 Telephone encounter George morales MD Work Phone: Internal Medicine Portal Comment on above: Release Of Medical R ecords Start: 04-25-2022 ambulatory Josh Cornell RN [employer] Comment on above: Community Monitoring Outreach (COPD Telephonic CDM Outreach) Start: 04-18-2022 ambulatory Blanca Older MELT SUPERVISOR .ELEVATOR STARTER Work Phone: Internal Medicine Portal Comment on above: Blood work Start: 04-14-2022 MC Get Medical Advice George Vázquez MD Work Phone: Internal Medicine Portal Comment on above: Refill Start: 04-04-2022 ambulatory Josh Cornell frequency checkerM[employer] Comment on above: Community Monitoring Outreach (Chronic Bronchitis CDM Outreach) Start: 03-21-2022 Refill Blanca Older MELT SUPERVISOR .ELEVATOR STARTER Work Phone: Internal Medicine Portal Comment on above: Refill Request Start: 03-07-2022 End: 03-29-[address] George Vázquez Work Phone: [facility]-Cardiac Rehab Start: 02-28-2022 ambulatory Josh Cornell RN [employer] Comment on above: Community Monitoring Outreach (COPD CDM Outreach) Start: 02-25-2022 End: 02-26-[address] George Vázquez Work Phone: [facility]-Cardiac Rehab Start: 02-22-2022 ambulatory Low Sanders Work Phone: Family [facility] Comment on above: Right knees swelling up a little bit here and there Start: 02-14-2022 End: 02-14-[address] George Vázquez Work Phone: [facility] Start: 02-04-2022 ambulatory Josh Cornell RN [employer] Comment on above: Community Monitoring Outreach (COPD CDM Outreach) Start: 02-01-2022 End: 02-01-[address] George Vázquez [facility] Phone[facility] Start: 01-26-2022 End: 01-27-[address] George Vázquez Work Phone: [facility]-Cardiac Rehab Start: 01-21-2022 ambulatory Josh Cornell RN [employer] Comment on above: Community Monitoring Outreach ([facility] Outreach) Start: 12-29-2021 End: 12-29-[address] George Vázquez Work Phone: [facility] Start: 12-27-2021 End: 12-27-[address] George Vázquez Work Phone: [facility] Start: 11-29-2021 End: 11-29-[address] George Vázquez Work Phone: [facility] Start: 11-22-2021 End: 11-22-[address] George Vázquez Work Phone: [facility] Start: 11-17-2021 Non-patient / Non-visit Dr. Norma Vázquez Work Phone: [facility] Start: 11-15-2021 End: 11-15-[address] George Vázquez Work Phone: [facility] Start: 10-07-[address] George Vázquez Work Phone: [facility] Start: 10-04-2021 End: 10-04-[address] George Vázquez Work Phone: [facility] Start: 09-30-2021 Non-patient / Non-visit Dr. Norma Vázquez Work Phone: [facility] Start: 01-15-2021 End: 01-15-2021 Patient encounter procedure [facility] Start: 12-29-2020 End: 12-29-2020 Subsequent hospital visit by physician [facility] Work Phone: Radiology Comment on above: Acute right-sided lo w back pain without sciatica [M54.5] Start: 12-25-2020 End: 12-25-2020 Patient encounter procedure [facility] Procedures Date Procedure Procedure Detail Performing Clinician Start: 07-15-2025 Mri any jt lower ext rem w/o contrast matrl Low Bryant DO Work Phone: Start: 07-08-2025 Arthrocentesis aspir&/inj major jt/bursa w/o us Low Bryant DO Work Phone: Start: 07-03-2025 Radex hip unilateral with pelvis 2-3 views Prateek Matos APRN.ELEVATOR STARTER Work Phone: Start: 06-14-2025 CT of chest [...] of ch est with contrast Dr. George Váqzuez MD Work Phone: Start: 11-05-2024 Evaluation of [...] exam ches t 2 views Prateek Matos MELT SUPERVISOR.ELEVATOR STARTER Work Phone: Start: 08-12-2024 Lipid 1996 panel - S beto or Plasma Darlyn Moreno RN Start: 05-27-2024 Adult depression screening assessment George Vázquez MD Work Phone: Start: 02-27-2024 Lipid 1996 panel - S beto or Plasma Blanca Tilley MELT SUPERVISOR.ELEVATOR STARTER Work Phone: Start: 10-18-2023 Radiologic exam ches t 2 views Ilda Bocanegra MELT SUPERVISOR.ELEVATOR STARTER Work Phone: Start: 08-11-2023 Investigation of transfusion [...] Detail Author Start: 05-05-2031 Urine microalbumin profile [facility] Start: 08-12-2029 Lipid panel Lipid Screening [facility] Start: 02-26-2029 Lipid panel Lipid Screening [facility] Start: 01-09-2028 Diabetes Screening Diabetes Screening [facility] Start: 12-29-2027 Colonoscopy COLONOSCOPY [facility] Start: 12-29-2027 COLORECTAL CANCER SCREENING COLORECTAL CANCER SCREENING [facility] Start: 12-29-2027 Screening for malignant neoplasm of colon [facility] Start: 09-12-2027 Diabetes Screening Diabetes Screening [facility] Start: 08-12-2027 Diabetes Screening Diabetes Screening [facility] Start: 05-05-2027 Lipid 1996 panel - Serum or Plasma Lipid Screening [facility] Start: 05-05-2027 Lipid panel Lipid Screening [facility] Start: 05-05-2027 LIPID SCREEN LIPID SCREEN [facility] Start: 02-26-2027 Diabetes Screening Diabetes Screening [facility] Start: 07-07-2026 Annual PCP Team Chronic Disease Visit Annual PCP Team Chronic Disease Visit [facility] Start: 06-22-2026 Colonoscopy COLONOSCOPY [facility] Start: 06-22-2026 COLORECTAL CANCER SCREENING COLORECTAL CANCER SCREENING [facility] Start: 05-28-2026 Annual PCP Team Chronic Disease Visit Annual PCP Team Chronic Disease Visit [facility] Start: 05-28-2026 Anxiety Screening Anxiety Screening [facility] Start: 05-28-2026 Depression Screening Depression Screening [facility] Start: 05-28-2026 Medicare Annual Wellness Visit Medicare Annual Wellness Visit [facility] Start: 05-22-2026 DIABETES SCREEN DIABETES SCREEN [facility] Start: 05-22-2026 Diabetes Screening Diabetes Screening [facility] Start: 04-30-2026 LIPID SCREEN LIPID SCREEN [facility] Start: 01-08-2026 Annual PCP Team Chronic Disease Visit Annual PCP Team Chronic Disease Visit [facility] Start: 11-28-2025 End: 11-28-2025 Patient encounter procedure 11/28/2025 2:20 PM EST Office Visit [facility] [address] [place] [address] George Vázquez MD [address] [place] [address] 6 month follow-up [facility] Comment on above: 6 month follow-up Start: 11-03-2025 PROSTATE CANCER SCREENING DISCUSSION PROSTATE CANCER SCREENING DISCUSSION [facility] Start: 09-12-2025 Annual PCP Team Chronic Disease Visit Annual PCP Team Chronic Disease Visit [facility] Start: 09-04-2025 Annual PCP Team Chronic Disease Visit Annual PCP Team Chronic Disease Visit [facility] Start: 09-04-2025 BP Controlled (<130/80) BP Controlled (<130/80) [facility] Start: 09-01-2025 End: 09-01-2025 Patient encounter procedure 09/01/2025 1:00 PM EST Office Visit Orthopaedics [address] [place] [address] Saritha Greenwood PA-C [address] [place] [address] Dupuytren's contracture of right hand [M72.0] Orthopaedics Comment on above: Dupuytren's contracture of right hand [M 72.0] Start: 08-12-2025 Annual PCP Team Chronic Disease Visit Annual PCP Team Chronic Disease Visit [facility] Start: 08-12-2025 Hepatitis B surface antibody level LDL Cholesterol [facility] Start: 07-28-2025 Registered Recurring Registered Recurring -Physical Therapy Work Phone: Start: 07-15-2025 DIABETES SCREEN DIABETES SCREEN [facility] Start: 07-08-2025 End: 07-08-2025 Patient encounter procedure 07/08/2025 10:00 AM EDT Office Visit [facility] [address] [place], [place] [id number] Low Bryant V, DO [address] [place] [address] Acute right hip pain [M25.551] [facility] Comment on above: Acute right hip pain [M25.551] Start: 07-07-2025 End: 07-07-2025 Patient encounter procedure 07/07/2025 11:00 AM EDT Office Visit [facility] [address] [place] [address] Blanca Tilley, MELT SUPERVISOR.ELEVATOR STARTER [address] [place] [address] urg care f/u [facility] Comment on above: urg care f/u Start: 2025 Influenza vaccination Influenza Vaccine (#1) [facility] Start: 06-04-2025 Screening for malignant neoplasm of lung Lung Cancer Screening [facility] Start: 05-28-2025 End: 05-28-2025 Patient encounter procedure 05/28/2025 1:40 PM EDT Office Visit [facility] [address] [place] [address] George Vázquez MD [address] [place], [place] [id number] Annual Medicare Wellness w/5 month follow-up [facility] Comment on above: Annual Medicare Wellness w/5 month follo w-up Start: 05-27-2025 Annual PCP Team Chronic Disease Visit Annual PCP Team Chronic Disease Visit [facility] Start: 05-27-2025 Anxiety Screening Anxiety Screening [facility] Start: 05-27-2025 BP Controlled (<130/80) BP Controlled (<130/80) [facility] Start: 05-27-2025 Depression Screening Depression Screening [facility] Start: 05-05-2025 DIABETES SCREEN DIABETES SCREEN [facility] Start: 02-26-2025 Hepatitis B surface antibody level LDL Cholesterol [facility] Start: 01-20-2025 Covid-19 Vaccine () Covid-19 Vaccine () [facility] Start: 01-08-2025 End: 04-09-2025 Basic metabolic 2000 panel - Serum or Plasma [facility] Work Phone: Comment on above: Expected: 01/08/2025, Expires: Start: 11-25-2024 End: 11-25-2024 Patient encounter procedure 11/25/2024 1:20 PM EST Office Visit Internal Medicine [facility] [address] [place], [place] [id number] George Vázquez MD [address] [place] [address] 6 month follow-up [facility] Comment on above: 6 month follow-up Start: 11-23-2024 Annual PCP Team Chronic Disease Visit Annual PCP Team Chronic Disease Visit [facility] Start: 11-23-2024 BP Controlled (<130/80) BP Controlled (<130/80) [facility] Start: 11-08-2024 DIABETES SCREEN DIABETES SCREEN [facility] Start: 10-30-2024 Advance Directive Discussion Advance Directive Discussion [facility] Start: 10-28-2024 Patient discharge [facility] Start: 10-27-2024 Following clinical pathway protocol [facility] Start: 10-27-2024 Ambulation without limitation [facility] Start: 10-27-2024 Assessment of risk of venous thromboembolism [facility] Start: 10-27-2024 Cardiac monitoring [facility] Start: 10-27-2024 Incentive spirometry [facility] Start: 10-27-2024 Insertion of catheter into peripheral vein [facility] Start: 10-27-2024 Oxygen therapy [facility] Start: 10-27-2024 Providing care according to standard [facility] Start: 10-27-2024 Referral to service [facility] Start: 10-27-2024 [facility] Start: 10-27-2024 Admission procedure [facility] Start: 09-17-2024 End: 09-17-2024 [facility] Start: 09-12-2024 End: 12-12-2024 Basic metabolic 2000 panel - Serum or Plasma [facility] Comment on above: Expected: 09/12/2024, Expires: Start: 09-12-2024 End: 12-12-2024 CBC panel - Blood by Automated count [facility] Work Phone: Comment on above: Expected: 09/12/2024, Expires: Start: 09-12-2024 End: 12-12-2024 Natriuretic peptide.B prohormone N-Terminal [Mass/volume] in Serum or Plasma [facility] Comment on above: Expected: 09/12/2024, Expires: Start: 08-27-2024 End: 08-27-2024 ambulatory 08/27/2024 1:30 PM EDT Results Only [facility] [address] [place] [address] [facility] Start: 08-12-2024 End: 11-11-2024 CBC panel - Blood by Automated count [facility] Comment on above: Expected: 08/12/2024, Expires: Start: 08-12-2024 End: 11-11-2024 Comprehensive metabolic 2000 panel - Serum or Plasma [facility] Comment on above: Expected: 08/12/2024, Expires: Start: 08-12-2024 End: 11-11-2024 Hemoglobin A1c in Blood [facility] Comment on above: Expected: 08/12/2024, Expires: Start: 08-12-2024 End: 11-11-2024 Lipid 1996 panel - Serum or Plasma [facility] Work Phone: Comment on above: Expected: 08/12/2024, Expires: Start: 08-12-2024 End: 11-11-2024 Magnesium [Mass/volume] in Serum or Plasma [facility] Comment on above: Expected: 08/12/2024, Expires: Start: 08-12-2024 End: 11-11-2024 Urinalysis complete panel - Urine [facility] Comment on above: Expected: 08/12/2024, Expires: Start: 2024 Covid-19 Vaccine () Covid-19 Vaccine () [facility] Start: 2024 Covid-19 Vaccine () Covid-19 Vaccine () [facility] Start: 2024 Influenza vaccination Influenza Vaccine (#1) [facility] Start: 05-27-2024 End: 05-27-2024 Patient encounter procedure 05/27/2024 12:00 PM EDT Office Visit [facility] [address] [place] [address] George Vázquez MD [address] [place], [place] [id number] Medicare Wellness [facility] Comment on above: Medicare Wellness Start: 05-24-2024 ANNUAL PCP TEAM CHRONIC DISEASE VISIT ANNUAL PCP TEAM CHRONIC DISEASE VISIT [facility] Start: 05-24-2024 BP CONTROLLED (<130/80) BP CONTROLLED (<130/80) [facility] Start: 01-25-2024 Hepatitis B surface antibody level LDL CHOLESTEROL [facility] Start: 01-19-2024 ANNUAL PCP TEAM CHRONIC DISEASE VISIT ANNUAL PCP TEAM CHRONIC DISEASE VISIT [facility] Start: 01-14-2024 Covid-19 Vaccine () Covid-19 Vaccine () [facility] Start: 10-30-2023 Advance Directive Discussion Advance Directive Discussion [facility] Start: 10-30-2023 Behavioral Health Screening Behavioral Health Screening [facility] Start: 10-30-2023 Depression Assessment Depression Assessment [facility] Start: 07-28-2023 ANNUAL PCP TEAM CHRONIC DISEASE VISIT ANNUAL PCP TEAM CHRONIC DISEASE VISIT [facility] Start: 07-28-2023 BP CONTROLLED (<130/80) BP CONTROLLED (<130/80) [facility] Start: 07-24-2023 End: 09-23-2023 Basic metabolic 2000 panel - Serum or Plasma BASIC METABOLIC PNL Lab Routine Primary hypertension Expected: 07/24/2023, Expires: 09/23/2023 [facility] Work Phone: Comment on above: Expected: 07/24/2023, Expires: 3 Start: 07-05-2023 BP CONTROLLED (<130/80) BP CONTROLLED (<130/80) [facility] Start: 2023 Covid-19 Vaccine () Covid-19 Vaccine () [facility] Start: 2023 Influenza vaccination [facility] Start: 05-09-2023 Adult depression screening assessment DEPRESSION SCREENING [facility] Start: 05-09-2023 ANNUAL PCP TEAM CHRONIC DISEASE VISIT ANNUAL PCP TEAM CHRONIC DISEASE VISIT [facility] Start: 05-09-2023 BP CONTROLLED (<130/80) BP CONTROLLED (<130/80) [facility] Start: 05-09-2023 SHINGRIX VACCINE (1 of 2) SHINGRIX VACCINE (1 of 2) [facility] Comment on above: Postponed from 2004 (Declined at t his time) Start: 05-05-2023 Hepatitis B surface antibody level LDL CHOLESTEROL [facility] Start: 04-13-2023 COVID-19 VACCINE (6 - Pfizer series) COVID-19 VACCINE (6 - Pfizer series) [facility] Start: 12-28-2022 Colonoscopy w/biopsy single/multiple COLONOSCOPY AND BIOPSY [facility] Start: 12-28-2022 Colsc flx w/rmvl of tumor polyp lesion snare tq COLONOSCOPY W/LESION REMOVAL [facility] Start: 12-28-2022 Egd transoral biopsy single/multiple EGD BIOPSY SINGLE/MULTIPLE [facility] Start: 12-28-2022 Patient discharge [facility] Start: 12-22-2022 BP CONTROLLED (<130/80) BP CONTROLLED (<130/80) [facility] Start: 12-02-2022 Anes intraperitoneal upper abdomen w/laps nos ANESTH SURG UPPER ABDOMEN [facility] Start: 12-02-2022 Laps surg cholecystectomy w/cholangiography LAPARO CHOLECYSTECTOMY/GRAPH [facility] Start: 12-02-2022 Patient discharge [facility] Start: 11-05-2022 ANNUAL PCP TEAM CHRONIC DISEASE VISIT ANNUAL PCP TEAM CHRONIC DISEASE VISIT [facility] Start: 10-30-2022 ADVANCE DIRECTIVE DISCUSSION ADVANCE DIRECTIVE DISCUSSION [facility] Start: 10-30-2022 DEPRESSION ASSESSMENT DEPRESSION ASSESSMENT [facility] Start: 10-30-2022 Patient discharge [facility] Start: 10-29-2022 Respiratory secretion precautions [facility] Start: 10-29-2022 Physiotherapy of chest [facility] Start: 10-29-2022 Inhalation therapy procedure [facility] Start: 10-28-2022 Application of intermittent pneumatic compression device [facility] Start: 10-28-2022 Following clinical pathway protocol [facility] Start: 10-28-2022 Assessment of risk of venous thromboembolism [facility] Start: 10-28-2022 Incentive spirometry [facility] Start: 10-28-2022 Insertion of catheter into peripheral vein [facility] Start: 10-28-2022 Introduction of urinary catheter [facility] Start: 10-28-2022 Measuring intake and output [facility] Start: 10-28-2022 Oxygen therapy [facility] Start: 10-28-2022 Providing care according to standard [facility] Start: 10-28-2022 Provision of activity privileges [facility] Start: 10-28-2022 Referral to service [facility] Start: 10-28-2022 Tobacco use cessation education [facility] Start: 10-28-2022 [facility] Start: 10-28-2022 Admission procedure [facility] Start: 10-28-2022 [facility] Work Phone: Start: 08-23-2022 PNEUMOCOCCAL: 65+ (3 - PPSV23 if available, else PCV20) PNEUMOCOCCAL: 65+ (3 - PPSV23 if available, else PCV20) [facility] Start: 08-23-2022 PNEUMOCOCCAL: 65+ (3 - PPSV23 or PCV20) PNEUMOCOCCAL: 65+ (3 - PPSV23 or PCV20) [facility] Start: 08-23-2022 PNEUMOVAX AGE 65 AND OVER WITH 5YR LOOKBACK (#1) PNEUMOVAX AGE 65 AND OVER WITH 5YR LOOKBACK (#1) [facility] Start: 07-28-2022 Celiac disease screen [facility] Work Phone: Start: 07-28-2022 IgE [Units/volume] in Serum or Plasma [facility] Work Phone: Start: 07-28-2022 Serum immunofixation [facility] Work Phone: Start: 07-28-2022 [facility] Work Phone: Start: 07-05-2022 End: 07-19-2022 Influenza virus A and B RNA and SARS-CoV-2 (COVID-19) N gene panel - Respiratory specimen by JESSICA with probe detection [facility] Work Phone: Comment on above: Expected: 07/05/2022, Expires: 2 Start: 07-04-2022 COVID-19 VACCINE (5 - Booster for Pfizer series) COVID-19 VACCINE (5 - Booster for Pfizer series) [facility] Start: 2022 Influenza vaccination INFLUENZA (#1) [facility] Start: 05-05-2022 Adult depression screening assessment DEPRESSION SCREENING [facility] Start: 04-30-2022 Hepatitis B surface antibody level LDL CHOLESTEROL [facility] Start: 04-27-2022 End: 06-27-2022 Basic metabolic 2000 panel - Serum or Plasma BASIC METABOLIC PNL Lab Routine Hyperlipidemia, unspecified hyperlipidemia type Expected: 04/27/2022, Expires: 06/27/2022 [facility] Work Phone: Comment on above: Expected: 04/27/2022, Expires: 2 Start: 04-27-2022 End: 06-27-2022 Lipid 1996 panel - Serum or Plasma LIPID PANEL BASIC Lab Routine Hyperlipidemia, unspecified hyperlipidemia type Expected: 04/27/2022, Expires: 06/27/2022 [facility] Work Phone: Comment on above: Expected: 04/27/2022, Expires: 2 Start: 10-30-2021 ADVANCE DIRECTIVE DISCUSSION ADVANCE DIRECTIVE DISCUSSION [facility] Start: 10-30-2021 DEPRESSION ASSESSMENT DEPRESSION ASSESSMENT [facility] Start: 10-29-2016 FECAL OCCULT BLOOD FECAL OCCULT BLOOD [facility] Start: 10-29-2016 Screening for malignant neoplasm of colon Fecal Occult Blood [facility] Start: 2014 RSV Vaccine (1 - 1-dose 60+ series) RSV Vaccine (1 - 1-dose 60+ series) [facility] Start: 2004 Screening for malignant neoplasm of lung Lung Cancer Screening [facility] Start: 2004 SHINGRIX VACCINE (1 of 2) SHINGRIX VACCINE (1 of 2) [facility] Start: 1999 COLOGUARD (FIT-DNA) [facility] Start: [address] COLONOGRAPHY [facility] Start: 1999 Screening for malignant neoplasm of colon [facility] Start: 1999 SIGMOIDOSCOPY SIGMOIDOSCOPY [facility] Start: 1984 Zoledronic acid therapy Alpha-1 Antitrypsin Deficiency Screening [facility] Start: 1972 Anxiety Screening Anxiety Screening [facility] Start: 1972 BP CONTROLLED (<130/80) BP CONTROLLED (<130/80) [facility] Start: 1972 Depression Screening Depression Screening [facility] 24 Hour ECG [facility] Albumin [Moles/volum e] in Serum or Plasma [facility] Work Phone: Albumin/Globulin ratio [facility] Work Phone: Antibody to lupus La protein measurement [facility] Work Phone: Antibody to SS-A measurement [facility] Work Phone: Basic metabolic 2008 panel with ionized calcium - Serum or Plasma [facility] Centromere protein B Ab [Units/volume] in Serum [facility] Work Phone: Chromatin Ab [Units/volume] in Serum or Plasma [facility] Work Phone: Clostridioides diffi cile DNA [Presence] in Unspecified specimen by JESSICA with probe detection [facility] Work Phone: CT Abdomen and Pelvi s W contrast IV [facility] Work Phone: CT Chest [facility] CT Chest WO contrast [facility] CTA Abdominal vessel s WO and W contrast IV [facility] Work Phone: DNA double strand Ab [Units/volume] in Serum [facility] Work Phone: ECG COMPLETE ECG COMPLETE ECG Routine 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 09/12/2024 4:39 PM EST [facility] Elastase, pancreatic (el-1), fecal; quantitative [facility] Work Phone: Electrophoresis: [id number] [facility] Work Phone: Electrophoresis: charbel ma globulin [facility] Work Phone: Fat [Presence] in Stool [facility] Work Phone: Gastrointestinal pathogens panel - Stool by JESSICA with probe detection [facility] Work Phone: Globulin measurement [facility] Work Phone: Hepatic function panel [facility] Hepatic function panel [facility] IgA [Mass/volume] in Serum or Plasma [facility] Work Phone: IgE [Units/volume] i n Serum or Plasma [facility] Work Phone: IgG [Mass/volume] in Serum or Plasma [facility] Work Phone: IgM [Mass/volume] in Serum or Plasma [facility] Work Phone: Maki-1 extractable nuc lear Ab [Units/volume] in Serum [facility] Work Phone: Lactoferrin [Presenc e] in Stool by Immunoassay [facility] Work Phone: Lipid 1995 panel - S beto or Plasma [facility] Lipid 1995 panel - S [facility] or Plasma [facility] Measurement of immunoglobulin A in serum specimen [facility] Work Phone: Neutrophil cytoplasm ic Ab.classic [Units/volume] in Serum [facility] Work Phone: P-ANCA measurement [facility] Work Phone: Patient Education [facility] Work Phone: Patient referral [facility] Work Phone: Protein electrophore sis panel - Serum or Plasma [facility] Work Phone: Protein measurement [facility] Work Phone: Radionuclide gastric emptying study [facility] Work Phone: SCL-70 extractable nuclear Ab [Units/volume] in Serum by Immunoassay [facility] Work Phone: Serum protein electrophoresis [facility] Work Phone: Reyes extractable nu clear Ab [Presence] in Serum [facility] Work Phone: Tissue transglutamin ase IgA Ab [Units/volume] in Serum [facility] Work Phone: End: 12-22-2023 XR SHOULDER [id number] AP/TRUE AP RIGHT XR SHOULDER [id number] AP/TRUE AP RIGHT Radiology STAT Acute pain of right shoulder 1 Occurrences starting 11/22/2022 until 12/22/2023 [facility] Work Phone: Comment on above: 1 Occurrences starting 11/22/2022 until 12/22/2023 [facility] Immunizations Immunization Date Immunization Notes Care Provider Cindy dodson 07-23-2024 Seasonal trivalent influenza vaccine, adjuvanted, preservative free Blanca Tilley APRN.CNP Work Phone: [facility] 07-23-2024 influenza virus vaccine, unspecified formulation George Vázquez MD Work Phone: [facility] 06-04-2024 respiratory syncytia l virus (RSV) vaccine, adjuvanted (AREXVY) George Vázquez MD Work Phone: [facility] 09-15-2023 COVID-19 vaccine, ag e 12+ yr, season (PFIZER-BIONTECH) George Vázquez MD Work Phone: [facility] Work Phone: 09-15-2023 influenza (aIIV4) vaccine, age 65+ yr, quadrivalent, PF (FLUAD QUAD) Darlyn Moreno RN [facility] Work Phone: 09-15-2023 influenza, injectabl e, quadrivalent, contains preservative George Vázquez MD Work Phone: [facility] Work Phone: 09-15-2023 influenza virus vaccine, unspecified formulation Blanca Tilley APRN.CNP Work Phone: [facility] 01-18-2023 pneumococcal Conjuga te, unspecified formulation George Vázquez MD Work Phone: [facility] Work Phone: 01-18-2023 pneumococcal (PCV20) vaccine, 20 valent (PREVNAR 20) George Vázquez MD Work Phone: [facility] Work Phone: 12-14-2022 COVID-19 booster vaccine, age 12+ yr, bivalent (PFIZER-BIONTECH) George Vázquez MD Work Phone: [facility] Work Phone: 07-14-2022 influenza, injectabl e, quadrivalent, preservative free Dr. George Vázquez Work Phone: [facility] 07-14-2022 influenza, seasonal, injectable Dr. George Vázquez Work Phone: [facility] 07-14-2022 influenza virus vaccine, unspecified formulation George Vázquez MD Work Phone: [facility] 05-09-2022 Covid (Pfizer) Dr. George jade Work Phone: [facility] 05-09-2022 COVID-19 vaccine, ag e 12+ yr (PFIZER-BIONTECH - GIBBS TOP) George Vázquez MD Work Phone: [facility] 07-25-2021 COVID-19 vaccine, ag e 12+ yr (PFIZER-BIONTECH - PURPLE TOP) Josh Reveles RN [facility] Work Phone: 2021 Covid (Pfizer) Dr. George jade Work Phone: [facility] [address] George Vázquez Work Phone: [facility] 05-05-2021 tetanus toxoid, redu wojciech diphtheria toxoid, and acellular pertussis vaccine, adsorbed Josh Reveles RN [facility] Work Phone: 01-15-2021 COVID-19 vaccine, ag e 12+ yr (PFIZER-BIONTECH - PURPLE TOP) Josh Reveles RN [facility] Work Phone: 12-25-2020 COVID-19 vaccine, ag e 12+ yr (PFIZER-BIONTECH - PURPLE TOP) Josh Reveles RN [facility] Work Phone: 07-22-2020 influenza, injectabl e, quadrivalent, contains preservative Josh Reveles RN [facility] Work Phone: 08-27-2019 influenza, high dose seasonal, preservative-free Josh Reveles RN [facility] Work Phone: 08-27-2019 pneumococcal conjuga te vaccine, 13 valent Josh Reveles RN [facility] Work Phone: 09-16-2018 influenza, seasonal, injectable Josh Reveles RN [facility] Work Phone: 08-23-2017 influenza, injectabl e, quadrivalent, contains preservative Josh Reveles RN [facility] 08-23-2017 pneumococcal polysaccharide vaccine, 23 valent Josh Reveles RN [facility] Work Phone: 08-13-2016 influenza, seasonal, injectable Josh Reveles RN [facility] 08-13-2015 influenza, seasonal, injectable Josh Reveles RN [facility] 08-18-2014 influenza, seasonal, injectable Josh Reveles RN [facility] 10-11-2013 pneumococcal polysaccharide vaccine, 23 valent Josh Reveles RN [facility] 08-20-2013 influenza virus vaccine, unspecified formulation Josh Reveles RN [facility] Work Phone: 02-18-2013 tuberculin skin test ; purified protein derivative solution, intradermal Darlyn Moreno RN [facility] 07-26-2012 influenza virus vaccine, unspecified formulation Josh Reveles RN [facility] Work Phone: Payers Date Payer Category Payer Self-pay [id number] 2019 Medicare MEDICARE MEDICAR E A AND B [id number] 2019-Present [phone] [address] [address] [place] [address] Medicare [id number] 2019 Medicare [id number] 2019 Private Health Insurance [facility] AARP SUPPLEMENT [id number] 2019-Present [phone] [address] [place] [address] Indemnity [id number] .[id number] 2019 Private Health Insurance [id number] .[id number] .[id number] 2019 Medicare [id number] 2019 Unknown [id number] 1955 Unknown [id number] 2.16.840.1.261682.3.579.2 .651 1955 Unknown [id number] 2..840.1.554880.3.579.[address] [facility] [id number] Unknown [id number] Unknown [id number] 2.16.840.1.496672.3.579.2 .462 Unknown [id number] 2.840.1.567416.3.579.2 .462 Unknown [id number] 2..840.1.175153.3.579.2 .462 Unknown [id number] 2.840.1.792278.3.579.2 .462 Unknown [id number] 2.840.1.506583.3.579.2 .462 Unknown [id number] 2.840.1.134928.3.579.2 .462 Unknown [id number] 2..840.1.751874.3.579.2 .462 Unknown [id number] 2.16840.1.934294.3.579.2 .462 Unknown [id number] 2.840.1.981905.3.579.2 .462 Unknown [id number] 2.16.840.1.771909.3.579.2 .462 Unknown [id number] 2.16840.1.954941.3.579.2 .462 Unknown [id number] 2.16.840.1.422166.3.579.2 .462 Unknown [id number] 2.16840.1.558686.3.579.2 .462 Unknown [id number] 2.16.840.1.846643.3.579.2 .462 Unknown [id number] 2.16.840.1.835825.3.579.2 .462 Unknown [id number] 2.16.840.1.659198.3.579.2 .462 Unknown [id number] 2.16.840.1.235281.3.579.2 .462 Unknown [id number] 2.16.840.1.105477.3.579.2 .462 Unknown [id number] 2.16.840.1.202865.3.579.2 .462 Unknown [id number] 2.16.840.1.984468.3.579.2 .462 Unknown [id number] 2.16.840.1.132659.3.579.2 .462 Unknown [id number] 2.16840.1.711740.3.579.2 .462 Unknown [id number] 2.16840.1.189090.3.579.2 .462 Unknown [id number] 2.16840.1.058402.3.579.2 .462 Unknown [id number] 2.16840.1.371125.3.579.2 .462 Unknown [id number] 2.16840.1.937619.3.579.2 .462 Unknown [id number] 2.16.840.1.624439.3.579.2 .462 Unknown [id number] 2.16840.1.343328.3.579.2 .462 Unknown [id number] 2.16840.1.009632.3.579.2 .462 Unknown [id number] 2.16.840.1.853572.3.579.2 .462 Unknown [id number] 2.16.840.1.894357.3.579.2 .462 Unknown [id number] 2.16.840.1.433355.3.579.2 .462 Unknown [id number] 2.16840.1.415658.3.579.2 .462 Unknown [id number] 2.16.840.1.898664.3.579.2 .462 Social History Date Type Detail Facility Start: 03-16-2020 End: 01-20-2025 Tobacco smoking status NHIS Smokes tobacco daily [facility] Start: 06-17-1984 History of tobacco use Cigarette Smoker [facility] Start: 06-17-1984 History of tobacco use Pipe Smoker [facility] Start: 03-16-2020 End: 10-04-2020 Cigarettes smoked current (pack per day) - Reported 0.5 [facility] Start: 03-16-2020 End: 08-25-2024 Tobacco use and exposure Smokeless tobacco non-user [facility] Start: 12-22-2021 End: 07-08-2025 Alcohol intake Current drinker of alcohol (finding) [facility] Start: 02-24-2020 End: 05-07-2020 History SDOH Alcohol Frequency 4 [facility] Start: 02-24-2020 End: 05-07-2020 History SDOH Alcohol Std Drinks 1 [facility] Start: 11-08-2021 History SDOH Alcohol Comment 2 mixed drinks per day [facility] Start: 02-24-2020 History SDOH Social Connections Phone 5 [facility] Start: 02-24-2020 History SDOH Social Connections Get Together 2 [facility] Start: 02-24-2020 Education 12 [facility] Start: 06-20-2012 Tobacco Comment smokes ocassionally [facility] Start: 1955 Sex Assigned At Not on file [facility] Start: 11-28-2020 End: 07-28-2022 Exposure to SARS-CoV-2 (event) Not sure [facility] Start: 11-22-2021 End: 11-23-2023 Tobacco smoking status VTIS Unknown if ever smoked [facility] Start: 1955 Sex Assigned At Male [facility] Start: 02-24-2020 End: 10-04-2020 Social connection and isolation panel [facility] Do you belong to any clubs or organizations such as moravian groups, unions, fraternal or athletic groups, or school groups? No [facility] Are you now , , , , never or living with a partner? [facility] How often to you hav e a drink containing alcohol? 2-3 time sa week [facility] Work Phone: How many standard dr inks containing alcohol do you have on a typical day? 1 or 2 [facility] Work Phone: How often do you hav e 6 or more drinks on 1 occasion? Never [facility] Work Phone: Start: 09-30-2012 How hard is it for you to pay for the very basics like food, housing, medical care, and heating Not hard at all [facility] Do you feel stress - tense, restless, nervous, or anxious, or unable to sleep at night because your mind is troubled all the time - these days [OSQ] Only a little [facility] (I/We) worried rhett er (my/our) food would run out before (I/we) got money to buy more. Never true [facility] Start: 05-24-2023 Alcohol Comment 2 mixed drinks 2 times per week. [facility] Start: 01-15-2025 End: 02-11-2025 Sex Male (finding) [facility] How often to you hav e a drink containing alcohol? 4 or more times a week [facility] Do you belong to any clubs or organizations such as moravian groups, unions, fraternal or athletic groups, or school groups? Yes [facility] Medical Equipment Procedure Code Equipment Code Equipment Original Text Equipment Identifier Dates Total cholecystectomy with exploration of common bile duct Ligation clip, synthetic polymer, non-bioabsorbable ()[id number] FDA Start: 12-02-2022 Total cholecystectomy with exploration of common bile duct Ligation clip, synthetic polymer, non-bioabsorbable ()[id number] FDA Start: 12-02-2022 [id number] 6148-Simplex P Bone Cement Radiopaque Full Dose Individual Pack - [id number] Start: [id number] 5 6148-Simplex P Bone Cement Radiopaque Full Dose Individual Pack - [id number] Start: [id number] 5 8585-Sie-Tt-A-Kin d Implant - [id number] Start: 10-10-2013 Comment on above: Description: POLY PA TELLA CEMENTED [id number] 8518-Cpw-Mu-A-Kin d Implant - [id number] Start: 10-10-2013 Comment on above: Description: FEMUR C EMENT CR [id number] 4618-Lis-Jm-A-Kin d Implant - [id number] Start: 10-10-2013 Comment on above: Description: ARTICUL AR SUFACE FIXED BEARING CR [id number] 5048-Jiu-Rn-A-Kin d Implant - [id number] Start: 10-10-2013 Comment on above: Description: natural tibia ([id number]) Drug-eluting coronary artery stent, bioabsorbable-primo ymer-coated ()[id number] FDA Start: 09-29-2021 ([id number]) Drug-eluting coronary artery stent, bioabsorbable-primo ymer-coated ()[id number] FDA Start: 09-29-2021 Goals Date Patient Goal [...] 4 05/28/20 1:48 PM George Huffman MD [facility] 10-28-2024 Functional status Ambulates [facility] Work Phone: 10-30-2022 Functional status Ambulates [facility] Work Phone: 11-12-2021 Are you deaf, or do you have serious difficulty hearing No 11/12/2021 4:15 PM Tammie Ramirez RN No [facility] 11-12-2021 Are you blind, or do you have serious difficulty seeing, even when wearing glasses No 11/12/2021 4:15 PM Tammie Ramirez RN No [facility] 11-12-2021 Do you have serious difficulty walking or climbing stairs No 11/12/2021 4:15 PM Tammie Ramirez RN No [facility] 11-12-2021 Do you have difficul ty dressing or bathing No 11/12/2021 4:15 PM Tmamie Ramirez RN No [facility] 11-12-2021 Because of a physica l, mental, or emotional condition, do you have difficulty doing errands alone such as visiting a physician's office or shopping No 11/12/2021 4:15 PM Tammie Ramirez, TOMMIE No [facility] Mental Status Date Assessment Result Facility 10-28-2024 [facility]: 10-28-2024 Cognitive function Arousable To Voice/Nam [facility] Work Phone: 12-28-2022 Cognitive function Voice/Name [facility] Work Phone: 12-02-2022 Cognitive function Voice/Name [facility] Work Phone: 10-30-2022 Cognitive function Voice/Name [facility] Work Phone: 07-13-2022 Cognitive function Voice/Name [facility] Work Phone: 11-12-2021 Because of a physica l, mental, or emotional condition, do you have serious difficulty concentrating, remembering, or making decisions No 11/12/2021 4:15 PM Tammie Ramirez RN No [facility] Clinical Notes 11-10-2016 to 09-03-2025 Yecenia Mitchell RT(R) - 07/15/2025 7:00 AM EDTDaLow ortiz V, DO - 07/08/2025 10:31 AM EDTFJessie corbett MA - 07/08/2025 9:55 AM EDTPatient InstructionsDaDain ortiz, Tech - 07/03/2025 12:20 PM EDT Note Date & Type Note Facility 09-03-2025 Note HNO ID: [id number] Author: ALKA MAYES RT(R) Service: ? Author Type: Technologist Type: Progress Notes Filed: 09/03/2025 12:05 Note Text: Radiology Service Progress Note PATIENT NAME: Horace Henderson DATE OF SERVICE: September 03, 2025 TIME: 12:05 PM PATIENT IDENTITY VERIFICATION COMPLETED USING TWO (2) IDENTIFIERS: Name and Date of confirmed by patient verbally. FALL SCREENING: Has the patient had 2 falls in the last year or 1 fall with injury or currently using an Ambulatory Assistive Device (Walker, Cane, Wheelchair, Crutches, etc.)? No PATIENT GENDER DATA: Assigned male at PATIENT RELEVANT IMPLANT DATA REVIEWED: Not Applicable PATIENT PRESENTS WITH AN IMPLANTABLE OR ATTACHED IMAGE EDITOR: No RADIOLOGY DEPARTMENT: General X-ray: Exam(s) Completed: Chest X-Ray PERIPHERAL IV DATA: Not applicable SIGNED BY: RT Alize(Francesca) September 03, 2025 12:05 PM [facility] 08-18-2025 Note HNO ID: [id number] Author: SARITHA GREENWOOD PA-C Service: ? Author Type: Physician Tin Dipper Type: Progress Notes Filed: 08/18/2025 14:02 Note Text: Saritha Greenwood PA-C Department of Orthopaedics Orthopaedics [address] [facility] [address] Dept: [phone] Dept August 18, 2025 CHIEF COMPLAINT: New [...] Patient to consider options and notify via Paradigmhart if wishing to proceed with XIAFLEX or [...] Patient to consider options and notify via Paradigmhart if wishing to proceed with XIAFLEX or [...] PROCEDURE Medications: C (more content not included)... [facility] 08-18-2025 Note HNO ID: [id number] Author: JESSIE SULLIVAN MA Service: ? Author Type: Ballet Soloist Type: Progress Notes Filed: 08/18/2025 14:02 Note [...] to contract as well. Denies any pain. [facility] 07-21-2025 Progress note [facility] 07-15-2025 History of Present illness Narrative Radiology [...] PATIENT PRESENTS WITH AN IMPLANTABLE OR ATTACHED IMAGE EDITOR: No RADIOLOGY DEPARTMENT: MR; Exam(s) Completed: Lower MSK: Hip, right . Anesthesia: No. Aromatherapy Administered: No PERIPHERAL IV DATA: Not applicable SIGNED BY: RT Frances(Francesca) July 15, 2025 7:25 AM documented in this encounter [facility] 07-15-2025 Note HNO ID: [id number] Author: YECENIA MITCHELL RT(R) Service: ? Author Type: Technologist [...] PATIENT PRESENTS WITH AN IMPLANTABLE OR ATTACHED IMAGE EDITOR: No RADIOLOGY DEPARTMENT: MR; Exam(s) Completed: Lower MSK: Hip, right . Anesthesia: No. Aromatherapy Administered: No PERIPHERAL IV DATA: Not applicable SIGNED BY: RT Frances(R) July 15, 2025 7:25 AM [facility] 07-08-2025 Note HNO ID: [id number] Author: LOW BRYANT, DO Service: ? Author Type: Physician Type: [...] these instructions. Informed Consent Consent Obtained: Verbal [place] Protocol SIGN IN TIME OUT Recording using [employer] software for draft documentation of the visit was discussed with the patient/authorized sales promotion representative; all questions welcomed and answered. Patient/authorized sales promotion representative agreed to proceed [facility] 07-08-2025 History of Present illness Narrative [...] these instructions. Informed Consent Consent Obtained: Verbal [place] Protocol SIGN IN TIME OUT Recording using [employer] software for draft documentation of the visit was discussed with the patient/authorized sales promotion representative; all questions welcomed and answered. Patient/authorized sales promotion representative agreed to proceed Patient presents with: Right Hip Pain: Referred by Blanca SILVA ROOMING INTAKE FLOWSHEET DATA Pain Pain Level: 9 Pain Location: Hip-Right Description: Aching Duration Amount of Time: 1 Duration Units: Weeks Frequency: Continuous Intervention/Comfort measure: Medication documented in this encounter [facility] 07-08-2025 Note HNO ID: [id number] Author: JESSIE SULLIVAN MA Service: ? Author Type: Ballet Soloist Type: Progress Notes Filed: 07/08/2025 10:32 Note Text: Patient presents with: Right Hip Pain: Referred by Blanca SILVA ROOMING INTAKE FLOWSHEET DATA Pain Pain Level: 9 Pain Location: Hip-Right Description: Aching Duration Amount of Time: 1 Duration Units: Weeks Frequency: Continuous Intervention/Comfort measure: Medication [facility] 07-07-2025 Instructions Blanca Tilley APRN.ELEVATOR STARTER - 07/07/2025 1:20 PM EDT - I ve prescribed tramadol to meat pickler at [facility] for severe hip pain; use it only [...] ve referred you to Dr. Bryant, an client engagement specialist, for evaluation and possible hip injection if appropriate documented in this encounter [facility] 07-07-2025 Note HNO ID: [id number] Author: BLANCA TILLEY APRN.ELEVATOR STARTER Service: ? Author Type: Nurse Practitioner Type: Progress Notes Filed: 07/07/2025 13:21 Note Text: CC: Patient presents with: Follow Up: UC right hip pain. Hurts to even lift leg from gas pedal to brake. No improvement. HPI Recording using [employer] software for draft documentation of the visit was discussed with the patient/authorized sales promotion representative; all questions welcomed and answered. Patient/authorized sales promotion representative agreed to proceed The patient is [...] disease) with chronic bronchitis (HCC) 10/07/2013 06/17/2014 SJV756% predicted. COVID-19 07/05/2022 DDD (degenerative disc disease), [...] Apply to affected (more content not included)... [facility] 07-07-2025 History of Present illness Narrative CC: Patient presents with: Follow Up: UC right hip pain. Hurts to even lift leg from gas pedal to brake. No improvement. HPI Recording using [employer] software for draft documentation of the visit was discussed with the patient/authorized sales promotion representative; all questions welcomed and answered. Patient/authorized sales promotion representative agreed to proceed The patient is [...] disease) with chronic bronchitis (HCC) 10/07/2013 06/17/2014 QAU803% predicted. COVID-19 07/05/2022 DDD (degenerative disc disease), [...] 10/14/1996 SVG to diagonal. [facility] to [facility]. CC CORONARY STENT 09/29/2021 Biotronik 2.5x22 [...] Patient agreeable to treatment plan. Blanca Tilley APRN.ELEVATOR STARTER [1] Social History Tobacco Use Smoking status: [...] times per week documented in this encounter [facility] 07-03-2025 History of Present illness Narrative Radiology [...] PATIENT PRESENTS WITH AN IMPLANTABLE OR ATTACHED IMAGE EDITOR: No RADIOLOGY DEPARTMENT: General X-ray: Exam(s) Completed: Pelvis X-Ray: Pelvis with Hip Right PERIPHERAL IV DATA: Not applicable SIGNED BY: Ute Pak July 03, 2025 12:30 PM documented in this encounter [facility] 07-03-2025 Note HNO ID: [id number] Author: DAIN BRYANT Tech Service: ? Author Type: Agricultural Produce Commission Agent Type: Progress Notes Filed: 07/03/2025 12:30 Note [...] PATIENT PRESENTS WITH AN IMPLANTABLE OR ATTACHED IMAGE EDITOR: No RADIOLOGY DEPARTMENT: General X-ray: Exam(s) Completed: Pelvis X-Ray: Pelvis with Hip Right PERIPHERAL IV DATA: Not applicable SIGNED BY: Ute Pak July 03, 2025 12:30 PM [facility] 07-03-2025 Note HNO ID: [id number] Author: PRATEEK MATOS APRN.ELEVATOR STARTER Service: ? Author Type: Nurse Practitioner Type: Progress Notes Filed: 07/03/2025 12:59 Note Text: URGENT CARE MARYJANE Henderson is a 70 [...] of care. This note was generated using [employer] software. It may contain errors in wording, punctuation, or spelling. Prateek Matos APRN.ELEVATOR STARTER History and Record Review Clinical information obtained from an independent historian. History obtained from or confirmed by: parent. External record(s) reviewed: prior outpatient record. Disposition The patient was discharged. OTC Medications were advised: Procedures [facility] 07-03-2025 History of Present illness Narrative [...] of care. This note was generated using [employer] software. It may contain errors in wording, punctuation, or spelling. Prateek Matos APRN.CNP History and Record Review Clinical information obtained from an independent historian. History obtained from or confirmed by: parent. External record(s) reviewed: prior outpatient record. Disposition The patient was discharged. OTC Medications were advised: Procedures documented in this encounter [facility] 06-16-2025 Radiology Diagnostic study note [facility] Imaging Services [address] [place], [place] [address] Low Dose CT Lung Screening MR#: [id number] Acct: [id number] Name: HORACE HENDERSON Rep #: [id number] : 1955 M 69 From: Bassam Chacon MD PCP: Dr. George Vázquez MD Status: R EG CLI Study:Low Dose CT Lung Screening Date of Exam : 06/14/25 Exam# [id number] Ordering Dr: Vangie Roberts NP CAUL FAT PULLER-C PROCEDURE: LOW DOSE CT LUNG SCREENING 06/14/2025 REASON FOR EXAM: SMOKER COPD. TECHNIQUE: LOW DOSE CT LUNG SCREENING Coronal and Sagittal reconstruction series were provided. One or more dose reduction techniques were used (e.g., Automated exposure control, adjustment of the mA and/or kV according to patient size, use of iterative reconstruction technique). REFERENCE LINK: [employer] Lung-RADS RADIATION DOSE SUMMARY: CTDlvol: 2.39 mGy [...] SCREENING LDCT. Other Significant Findings: Reading Location: [id number] CC: JAMARCUS Roberts; Dr. George Vázquez MD ~ Wall Insulation Sprayer: Signed [facility] 05-28-2025 Instructions George Vázquez MD - 05/28/2025 [...] review all the medicines you take, even eycq-ind-jqooove medicines. As you get older, the way [...] certain medical conditions. documented in this encounter [facility] 05-28-2025 Note HNO ID: [id number] Author: GEORGE VÁZQUEZ MD Service: ? Author Type: Physician Type: Progress Notes Filed: 05/28/2025 14:56 Note Text: Tim Henderson is a 69 year old male. ERIN Vu was doing reasonably well. He had a rash on his feet, and lower legs for several months. His atmospheric drier tender sent off his toenail, but this came [...] diagnosis) - See (more content not included)... [facility] 05-28-2025 History of Present illness Narrative Subjective Horace Henderson is a 69 year old male. ERIN Vu was doing reasonably well. He had a rash on his feet, and lower legs for several months. His atmospheric drier tender sent off his toenail, but this came [...] wellness note. 2. 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 - ICD9: 414.01, [...] PCP - General (Internal Medicine) Blanca Tilley APRN.HORTENCIA as Javascript Ui Developer (Internal Medicine) Outside specialists seen: [place] [...] associated health risks documented in this encounter [facility] 05-28-2025 Note HNO ID: [id number] Author: GEORGE VÁZQUEZ MD Service: ? Author [...] PCP - General (Internal Medicine) Blanca Tilley APRN.ELEVATOR STARTER as Javascript Ui Developer (Internal Medicine) Outside specialists seen: [place] [...] on alcohol intake and associated health risks [facility] 05-05-2025 Evaluation note Diagnosis Onset Date [...] sleep apnea) suspected May 05, 2025 12:55pm [facility] Work Phone: 1(120) 734-303107-07-2025 Evaluation note* Diagnosis Onset Date Resolution Status [...] femoris tendon acute July 21, 2025 7:45am [facility] Work Phone: [phone]) [phone] Telephone encounter Note* Telephone Encounter - George Vázquez MD - 01/30/2025 5:10 PM EDT The following approved medication requests have been transmitted electronically. Requested Prescriptions Signed Prescriptions Disp Refills buPROPion SR (WELLBUTRIN SR) 150 mg 12 hr tablet 180 tablet 1 Sig: Take 1 tablet by mouth two times a day. Authorizing Provider: GEORGE VÁZQUEZ MD [facility]04-03-2025 Miscellaneous Notes* Telephone Encounter - George Vázquez MD - 01/30/2025 5:10 PM EDT The following approved medication requests have been transmitted electronically. Requested Prescriptions Signed Prescriptions Disp Refills buPROPion SR (WELLBUTRIN SR) 150 mg 12 hr tablet 180 tablet 1 Sig: Take 1 tablet by mouth two times a day. Authorizing Provider: GEORGE VÁZQUEZ MD * Telephone Encounter - Pat Richey LPN - 01/30/2025 2:12 PM EDT Pharmacy is asking for 90 day supply, Last appt: 01/08/2025 Annual Wellness, 05/28/2025 Pat Richey LPN documented in this encounterKindred Healthcare04-03-2025 Telephone encounter Note * Telephone Encounter - Pat Richey LPN - 01/30/2025 2:12 PM EDT Pharmacy is asking for 90 day supply, Last appt: 01/08/2025 Annual Wellness, 05/28/2025 Pat Richey LPN [facility]03-12-2025 NoteHNO ID: [id number] Author: GEORGE VÁZQUEZ MD Service: ? Author Type: Physician Type: Progress Notes Filed: 01/08/2025 16:22 Note Text: This note was created using [employer]. Subjective Horace Henderson is a 69 year old male. He's had a productive cough with green phlegm, and increased dyspnea on exertion for the past 1.5 to 2 weeks. He had no upper respiratory infection symptoms, fever, or chills. He saw his metal furniture glazier Dr. Malave today, who ordered a chest [...] Pitting Edema present. Lympha (more content not included)...[facility]03-12-2025 History of Present illness Narrative* George Vázquez MD - 01/08/2025 3:49 PM EDT This note was created using Soricimed. Subjective Horace Henderson is a 69 year [...] HR SUSTAINED-RELEASE 4. 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- ICD9: 414.01, ICD10: I25.10 Stable, per Dr. Malave. 5. Kidney insufficiency - ICD9: 593.9, ICD10: N28.9 Check labs today. 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 January 08, 2025 10:35am Atherosclerosis of coronary artery acute January 20, 2025 2:42pm ALMONTE (dyspnea on exertion) acute January 20, 2025 2:42pm Essential hypertension acute [facility] 2024 2:42pm Presence of stent in coronar y artery October, acute January 20, 2025 2:42pm 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 January 20, 2025 2:42pm COPD (chronic obstructive pulmonary disease) chronic January 20, 2:42pm Hyperlipidemia chronic December 2:42pm Nicotine dependence [...] apnea) suspec tabitha May 05, 2025 12:55pm [facility] Work Phone: [phone] 623-153903-12-2025 Evaluation note* Diagnosis Onset Date Resolution Status Admit Date Cough productive of purulent sputum acute January 08, 2025 10:35am Essential hypertension acute [facility] 2024 10:35am Leg edema acute January 08 10:35am 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 January 08, 2025 10:35am Atherosclerosis of coronary artery acute January 20, 2025 2:42pm ALMONTE (dyspnea on exertion) acute January 20, 2025 2:42pm Essential hypertension acute [facility] 2024 2:42pm Presence of stent in coronar y artery October, acute January 20, 2025 2:42pm 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 Dodie Sarah RN [facility]03-12-2025 Miscellaneous Notes* Telephone Encounter - Dodie Sarah RN - 01/08/2025 11:50 AM EDT Pt called and is scheduled today with Dr Vázquez at 340 pm. Dodie Sarah RN * Telephone Encounter - Pat Richey LPN - 01/08/2025 11:43 AM EDT Attempted to call Patient, no answer, wanting to schedule an appt to be evaluated by Dr. Vázquez.Pat Richey LPN * Telephone Encounter - Ihsan Christensen RN - 01/08/2025 11:20 AM EDT Patient reports he saw Dr. Malave at [facility] today. Dr. Malave did a EKG and CXR. Reports Dr. Malave advised him he was going to send CXR to pcp as it appears pt may have pneumonia and need an AB. Pt reports he has productive green cough, and SOB. No other symptoms. Please advise patient. [phone] documented in this encounterKindred Healthcare03-12-2025 Telephone encounter Note * Telephone Encounter - Pat Richey LPN - 01/08/2025 11:43 AM EDT Attempted to call Patient, no answer, wanting to schedule an appt to be evaluated by Dr. Vázquez.Pat Richey LPN [facility]03-12-2025 Radiology Diagnostic study note [facility] Imaging Services [address] [place], [place] [address] Chest PA and Lateral MR#: [id number] Acct: [id number] Name: HORACE HENDERSON Rep #: [id number] : 1955 M 69 From: Jeanne Amanda MD PCP: Dr. George Vázquez MD Status: R EG CLI Study:Chest PA and Lateral Date of Exam: 01/08/25 Exam# [id number] Ordering Dr: Ihsan Malave MD EXAM: XR [...] Lateral IMPRESSION: Suggestion of COPD. Reading Location: [facility] CC: Dr. Carrillo Malave MD; Dr. George Vázquez MD ~ Wall Insulation Sprayer: Signed [facility]03-12-2025 Telephone encounter Note* Telephone Encounter - Ihsan Christensen RN - 01/08/2025 11:20 AM EDT Patient reports he saw Dr. Malave at [facility] today. Dr. Malave did a EKG and CXR. Reports Dr. Malave advised him he was going to send CXR to pcp as it appears pt may have pneumonia and need an AB. Pt reports he has productive green cough, and SOB. No other symptoms. Please advise patient. [phone] [facility]02-10-2025 NoteHNO ID: [id number] Author: VENITA QUEZADA MA Service: ? Author Type: Ballet Soloist Type: Progress Notes Filed: 12/09/2024 16:56 Note [...] Venita Quezada MA December 09, 2024 4:54 [facility] History of Present illness Narrative* Venita Quezada [...] 09, 2024 4:54 PM documented in this encounterKindred Healthcare02-10-2025 NotePatient Outreach (NETNAV) BALJIT,HORACE M ([id number]) 1955 M Date Time Provider Department 12/09/24 VENITA QEUZADA During your visit today, we recorded the [...] 05/24/2023 Encounter Status:Closed by VENITA QUEZADA on 12/09/24[facility] 10-28-2024 [facility]12-29-2024 Evaluation note* Diagnosis Onset Date Resolution Status Admit Date Acute kidney insufficiency acute October 27, 2024 2:17pm Forehead laceration acute Decem 2023 2:17pm Sinus tachycardia resolved Decembe r 2023 2:17pm Syncope resolved October 27, 2024 2:17pm Atherosclerosis of coronary artery of kaw heart without angina pectoris inactive October 27, 2 024 2:17pm Syncope acute November 05, 025 12:55pm Tachycardia acute November 05, 2024 12:55pm 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 November 05 12:55pm Hyperlipidemia chronic October 12:55pm 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 November 05 12:55pm Cough productive of purulent sputum acute January 08, 2025 10:35am Essential hypertension acute [facility] 2024 10:35am Leg edema acute January 08 10:35am 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 January 08, 2025 10:35am [facility] Work Phone: 1(174) 235-228212-29-2024 Evaluation note* Diagnosis Onset Date Resolution Status Admit Date Acute kidney insufficiency acute October 27, 2024 2:17pm Forehead laceration resolved Decem 2023 2:17pm Sinus tachycardia resolved Decembe r 2023 2:17pm Syncope resolved October 27, 2024 2:17pm Atherosclerosis of coronary artery of kaw heart without angina pectoris inactive October 27, 2024 2:17pm Syncope acute November 05, 2 025 12:55pm Tachycardia acute November 05, 2024 12:55pm 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 November 05 12:55pm Hyperlipidemia chronic October 12:55pm 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 November 05 12:55pm Cough productive of purulent sputum acute January 08, 2025 10:35am Essential hypertension acute [facility] 2024 10:35am Leg edema acute January 08 10:35am 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 Author Type: Registered Nurse Type: Progress Notes Filed: 09/24/2024 17:05 Note Text: ED Follow-Up Note Provider Action / FYI: 09/17/24 [facility] ED OON, Reason for ED Visit: Sob 09/24/24 Spk with Pt he noted he has contacted Leyla Roberts [facility] Pulmonology had no return call he then scheduled Appt with Dr. Orellana to establish care mid October, and has Appt for PFT's at [facility] beginning of Oct 2024 Pt noted did not receive any new Rx for Daliresp, or added Spiriva Respimat. Pt wanted to discuss a medication plan with Pulmonology first . Provided Pt with [facility] Pulmonology/ PCP Phone number for a possible sooner ED follow up Appt to address changes in medications made by [facility] ED. Pt noted appreciation. Pt denies [...] seen in the Emergency Department (ED) Location: [facility] Date: 09/17/24 Reason for ED Visit: SOB [...] provided with appropriate counseling: Yes Based on professor of german, the following disposition is advised: No symptoms or symptoms present, not severe. Routed to: No Action Needed KAROL Education Provided this Outreach: No Darlyn Moreno RN September 24, 2024 3:16 [facility]11-26-2024 History of Present illness Narrative* Darlyn Moreno RN - 09/24/2024 2:33 PM EST ED Follow-Up Note Provider Action / FYI: 09/17/24 [facility] ED OON, Reason for ED Visit: Sob 09/24/24 Spk with Pt he noted he has contacted Leyla Roberts [facility] Pulmonology had no return call he then scheduled Appt with Dr. Orellana to establish care mid October, and has Appt for PFT's at [facility] of Oct 2024 Pt noted did not receive any new Rx for Daliresp, or added Spiriva Respimat. Pt wanted to discuss amedication plan with Pulmonology first . Provided Pt with [facility] Pulmonology/ PCP Phone number for a possible sooner ED follow up Appt to address changes in medications made by [facility] ED. Pt noted appreciation. Pt denies [...] seen in the Emergency Department (ED) Location: [facility] Date: 09/17/24 Reason for ED Visit: SOB [...] provided with appropriate counseling: Yes Based on professor of german, the following disposition is advised: No symptoms or symptoms present, not severe. Routed to: No Action Needed KAROL Education Provided this Outreach: No Darlyn Moreno RN September 24, 2024 3:16 PM documented in this encounterKindred Healthcare11-26-2024 NotePatient Outreach ([facility]BCMG) HORACE HENDERSON ([id number]) 1955 M Date Time Provider Department 09/24/24 DARLYN MORENO [facility] During your visit today, we recorded the following information about you: Darlyn Moreno RN 09/24/2024 5:05 PM Signed ED Follow-Up Note Provider Action / FYI: 09/17/24 [facility] ED OON, Reason for ED Visit: Sob 09/24/24 Spk with Pt he noted he has contacted Leyla Roberts [facility] Pulmonology had no return call he then scheduled Appt with Dr. Orellana to establish care mid October, and has Appt for PFT's at [facility] beginning of Oct 2024 Pt noted did not receive any new Rx for Daliresp, or added Spiriva Respimat. Pt wanted to discuss a medication plan with Pulmonology first . Provided Pt with [facility] Pulmonology/ PCP Phone number for a possible sooner ED follow up Appt to address changes in medications made by [facility] ED. Pt noted appreciation. Pt denies [...] seen in the Emergency Department (ED) Location: [facility] Date: 09/17/24 Reason for ED Visit: SOB [...] provided with appropriate counseling: Yes Based on professor of german, the following disposition is advised: No symptoms [...] [E78.5] 08/04/2012 Perforated diver (more content not included)...[facility] 09-23-2024 NoteHNO ID: [id number] Author: DARLYN MORENO RN Service: ? Author Type: Registered Nurse Type: Progress Notes Filed: 09/23/2024 15:14 Note Text: ED Follow-Up Note Provider Action / FYI: Location: [facility] OON Date: 09/17/24 Reason for ED Visit: [...] Darlyn Moreno RN September 23, 2024 12:17 [facility]11-25-2024 History of Present illness Narrative* Darlyn Moreno RN - 09/23/2024 12:16 PM EST ED Follow-Up Note Provider Action / FYI: Location: [facility] Date: 09/17/24 Reason for ED Visit: Sob [...] seen in the Emergency Department (ED) Location: [facility] Date: 09/17/24 Reason for ED Visit: Sob [...] 20, 2024 11:29 AM documented in this encounterKindred Healthcare11-22-2024 NoteHNO ID: [id number] Author: DARLYN MORENO RN Service: ? Author [...] seen in the Emergency Department (ED) Location: [facility] OON Date: 09/17/24 Reason for ED Visit: [...] Darlyn Moreno RN September 20, 2024 11:29 [facility]11-22-2024 NotePatient Outreach ([facility]) HORACE HENDERSON ([id number]) 1955 M Date Time Provider Department 09/20/24 DARLYN MORENO During your visit today, we [...] seen in the Emergency Department (ED) Location: [facility] OON Date: 09/17/24 Reason for ED Visit: [...] Follow-Up Note Provider Action / FYI: Location: [facility] O Date: 09/17/24 Reason for ED Visit: [...] tablet Take 1 ta (more content not included)...[facility]11-20-2024 Telephone encounter Note* Telephone Encounter - Pat Richey LPN - 09/18/2024 3:22 PM EST Referral faxed to Dr. Orellana. Pat Richey LPN [facility]11-20-2024 Miscellaneous Notes* Telephone Encounter - Pat Richey [...] calling for referral to see a new Safety And Security Manager for COPD. Dr. Orellana. . He was seeing Dr. Hall who is no longer @ [facility]. Debbie Portillo RN documented in this encounterKindred Healthcare11-20-2024 Telephone encounter Note * Telephone Encounter - [...] CONSULT TO PULMONARY MEDICINE George Vázquez MD [facility]11-20-2024 Telephone encounter Note* Telephone Encounter - Debbie Portillo RN - 09/18/2024 2:32 PM EST Patient calling for referral to see a new Safety And Security Manager for COPD. Dr. Orellana. . He was seeing Dr. Hall who is no longer @ [facility]. Debbie Portillo, RN [facility]11-20-2024 Telephone encounter Note* Telephone Encounter - Pat Richey LPN - 09/18/2024 2:19 PM EST Spoke to [facility], pharmacy is processing RX for Duoneb, Patient has active RX, 1 prescription on file for Duoneb. Pat Richey LPN [facility]11-20-2024 Miscellaneous Notes* Telephone Encounter - Pat Richey LPN - 09/18/2024 2:19 PM EST [facility] for Duoneb, Patient has active RX, 1 prescription on file for Duoneb. Pat Richey LPN documented in this encounterKindred Healthcare11-14-2024 Instructions* Patient Instructions* George Vázquez MD - 09/12/2024 4:48 PM EST Take an extra metoprolol tablet to slow heart rate. documented in this encounterKindred Healthcare11-14-2024 NoteHNO ID: [id number] Author: GEORGE VÁZQUEZ MD Service: ? Author Type: Physician Type: Progress Notes Filed: 09/12/2024 16:57 Note Text: This note was created using [employer]. Subjective Horace Henderson is a 69 year old male. I saw him for COPD exacerbation one week ago, and he was seen in [place] the week before that. He continues to feel vaguely ill. His heart rate has been staying elevated when he checked his oximetry at home. He was finishing doxycycline and just got a call from his inside sales specialist that he will start Augmentin 2 [...] Coronary artery disease invol (more content not included)...[facility]11-14-2024 History of Present illness Narrative* George Vázquez MD - 09/12/2024 4:23 PM EST This note was created using Soric[employer]ed. Subjective Horace Henderson is a 69 year old male. I saw him for COPD exacerbation one week ago, and he was seen in the week before that. He continues to feel vaguely ill. His heart rate has been staying elevated when he checked his oximetry at home. He was finishing doxycycline and just got a call from his inside sales specialist that hewill start Augmentin 2 days [...] PRO BNP 2. 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- ICD9: 414.01, ICD10: [...] PANEL George Vázquez MD documented in this encounterKindred Healthcare11-11-2024 NotePatient Outreach (PULMMN) HORACE HENDERSON ([id number]) 1955 M Date Time Provider Department 09/09/24 SARAH CARTER During your visit today, we recorded the following information about you: Allergies As of Date: 09/09/2024 Noted Allergy Reaction LEVOFLOXACIN 06/01/2020 14 - Other: See Comments Comments: Tachycardia. Achilles tendonitis. Date Reviewed: 08/30/2024 Reviewed by: Prateek Matos APRN.ELEVATOR STARTER - Fully Assessed Visit Diagnosis:Tobacco abuse [Z72.0] Order(s):CONSULT [facility] [2118107] Order #: [id number]: 1 FUTURE Prescriptions as of 09/12/2024 - [...] reflux disease [K21.9] 05/24/2023 Encounter Status:Closed by EPIC, PRODUSER on 09/12/24[facility] 09-04-2024 History of Present illness Narrative* George Vázquez MD - 09/04/2024 3:35 PM EST This note was created using Soricimed. Subjective Horace Henderson is a 69 year [...] MG TABLET 2. 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- ICD9: 414.01, ICD10: I25.10 - Stable. If not better, see his inside sales specialist at [place]. George Vázquez MD documented in this encounterKindred Healthcare11-06-2024 Telephone encounter Note * Telephone Encounter - Pat Richey LPN - 09/04/2024 2:32 PM EST Patient notified, appt scheduled. Pat Richey LPN [facility]11-06-2024 Miscellaneous Notes* Telephone Encounter - Pat Richey LPN - 09/04/2024 2:32 PM EST Patient notified, appt scheduled. Pat Richey LPN * Telephone Encounter - Blanca Tilley APRN.CNP - 09/04/2024 1:54 PM EST Needs appointment Blanca Tilley APRN.ELEVATOR STARTER * Telephone Encounter - Adele Jarvis LPN [...] uses [facility]Please advise. documented in this encounterKindred Healthcare11-06-2024 Telephone encounter Note * Telephone Encounter - Blanca Tilley APRN.CNP - 09/04/2024 1:54 PM EST Needs appointment lBanca Tilley APRN.HORTENCIA [facility]11-06-2024 Telephone encounter Note* Telephone Encounter - Adele [...] another round of antibiotics. Patient uses [facility]Please advise. [facility]11-01-2024 History of Present illness Narrative* Sotero Landa [...] PATIENT PRESENTS WITH AN IMPLANTABLE OR ATTACHED IMAGE EDITOR: No RADIOLOGY DEPARTMENT: General X-ray: Exam(s) Completed: Chest X-Ray PERIPHERAL IV DATA: Not applicable SIGNED BY: RT Paula(R) August 30, 2024 10:56 AM documented in this encounterKindred Healthcare11-01-2024 History of Present illness Narrative* Prateek Matos, DEWAYNE.ELEVATOR STARTER - 08/30/2024 10:42 AM EDT Subjective HPI [...] in SOB, wheeze, x weeks Finished zpack 10 PAST MEDICAL HISTORY Diagnosis Date Achilles tendinitis of both lower extremities 06/23/2020 Acute on chronic respiratory failure with hypoxia (HCC) 10/30/2022 Arthritis Asthma CAD (coronary artery disease) 01/11/2012 Chronic bronchitis (HCC) 10/07/2013 06/17/2014 DZV705% predicted. COPD (chronic obstructive pulmonary disease) (HCC) [...] SVG to diagonal. STEPHENS to LAD. Joseph [facility]. CC CORONARY STENT 09/29/2021 Biotronik [...] plan ofcare. This note was generated using Bench software. It may contain errors in wording, punctuation,or spelling. Prateek Matos APRN.HORTENCIA documented in this encounterKindred Healthcare10-28-2024 Telephone encounter Note * Telephone Encounter - Alka Anglin MA - 08/26/2024 9:04 AM EDT [facility] is there any subsitute for thrush, requesting another medication? Please return call. Alka Anglin MA [facility]10-28-2024 Miscellaneous Notes* Telephone Encounter - Alka Anglin MA - 08/26/2024 9:04 AM EDT [facility] is there any subsitute for thrush, requesting another medication? Please return call. Alka Anglin MA documented in this encounterKindred Healthcare10-27-2024 History of Present illness Narrative* Blanche Nevarez [...] disease) 01/11/2012 Chronic bronchitis (HCC) 10/07/2013 06/17/2014 AOG045% predicted. COPD (chronic obstructive pulmonary disease) ([facility]MA [...] SVG to diagonal. [facility] LAD. [facility] CORONARY STENT 09/29/2021 Biotronik 2.5x22 [...] Patient agreeable to treatment plan. Blanche Nevarez APRN.ELEVATOR STARTER documented in this encounterKindred Healthcare10-23-2024 History of Present illness Narrative* Darlyn Moreno [...] more often than normal? No Based on professor of german, the following disposition is advised: No symptoms or symptoms present, not severe. Routed to: No Action Needed KAROL Education Provided this Outreach: No Darlyn Moreno RN August 21, 2024 2:00 PM documented in this encounterKindred Healthcare10-14-2024 History of Present illness Narrative* Blanca Tilley, MELT SUPERVISOR.ELEVATOR STARTER - 08/12/2024 8:53 AM EDT CC Patient [...] bronchitis ([facility]) 10/07/2013 06/17/2014 FIW879% predicted. COPD (chronic obstructive pulmonary disease) (PRISMA [...] 10/14/1996 SVG to diagonal. STEPHENS to LAD. [facility]. CC CORONARY STENT 09/29/2021 Biotronik 2.5x22 [...] Patient agreeable to treatment plan. Blanca Tilley APRN.ELEVATOR STARTER documented in this encounterKindred Healthcare09-27-2024 Telephone encounter Note * Telephone Encounter - Jessie Bernabe LPN - 07/26/2024 8:12 AM EDT Spoke with pt gave information provided. Pt voices understanding. [facility]09-27-2024 Miscellaneous Notes* Telephone Encounter - Jessie Bernabe [...] you. Pat Richey LPN. documented in this encounterKindred Healthcare09-26-2024 Telephone encounter Note * Telephone Encounter - Georeg Vázquez MD - 07/25/2024 7:11 PM EDT He can get blood clots, diabetes, infections, heart failure, tendon rupture, etc. Etc. Etc. Not recommended for frequent or regular use. [facility]09-25-2024 History of Present illness Narrative* Soraya Mendieta MA - 07/24/2024 3:12 PM EDT POPULATION HEALTH NAVIGATION OUTREACH Action/[facility] Community Monitoring Navigation Pool/CDM Discuss/Due for: Follow [...] 1:29 PM EDT POPULATION HEALTH NAVIGATION OUTREACH Action/[employer] Community Monitoring Navigation Pool/CDM Discuss/Due for: Follow [...] more often than normal? Yes Based on professor of german, the following disposition is advised: No symptoms or symptoms present, not severe. Routed to: Navigation Team: PCP visit within 48 hours KAROL Education Provided this Outreach: No Darlyn Moreno, TOMMIE July 24, 2024 1:11 PM documented in this encounterKindred Healthcare09-24-2024 Telephone encounter Note * Telephone Encounter - [...] to review and advise. Xi Lakhani LPN [facility]09-24-2024 Telephone encounter Note* Telephone Encounter - Kimberlee Craft LPN - 07/23/2024 2:19 PM EDT Left a message for pt to call the office and ask to speak to a nurse. Kimberlee Craft LPN [facility]09-24-2024 Telephone encounter Note* Telephone Encounter - George [...] A Refill not appropriate George Vázquez MD [facility]09-24-2024 Telephone encounter Note* Telephone Encounter - Pat [...] Please advise. Thank you. Pat Richey LPN. [facility]09-24-2024 Telephone encounter Note* Telephone Encounter - Phil [...] Mitchell MA July 23, 2024 8:11 AM [facility]09-24-2024 Miscellaneous Notes* Telephone Encounter - Phil Mitchell [...] 23, 2024 8:11 AM documented in this encounterKindred Healthcare09-12-2024 History of Present illness Narrative* Hedy Sprague RN - 07/11/2024 12:[address] [facility] Telephonic Outreach Provider Action/FYI 2nd attempt Contacted for: Routine Telephonic Outreach Contact made with patient: No, left message. Hedy Sprague RN July 11, 2024 12:56 PM documented in this encounterKindred Healthcare09-11-2024 History of Present illness Narrative* Hedy Sprague RN - 07/10/2024 3:[address] [facility] Telephonic Outreach Provider Action/FYI 1st attempt Contacted for: Routine Telephonic Outreach Contact made with patient: No, left message. Hedy Sprague RN July 10, 2024 3:10 PM documented in this encounterKindred Healthcare08-21-2024 History of Present illness Narrative* Darlyn Moreno RN - 06/19/2024 4:[address] [facility] Telephonic Outreach Provider Action/FYI Instructed to call PCP with any changes in condition Pt verbalized understanding and appreciation for call Contacted for: Routine Telephonic Outreach Contact made with patient: No, left message. Darlyn Moreno RN June 19, 2024 4:04 PM * Darlny Moreno RN - 06/18/2024 4:[address] [facility] Telephonic Outreach Provider Action/FYI Left a message to verify symptom status, instructed to contact PCP for condition changes and needs. Contacted for: Routine Telephonic Outreach Contact made with patient: No, left message. Darlyn Moreno RN June 18, 2024 4:53 PM documented in this encounterKindred Healthcare08-16-2024 Telephone encounter Note * Telephone Encounter - Elsy Moreno LPN - 06/14/2024 10:11 AM EDT Prescription Refill Information Patient stated that is going on an 8 day cruise and is getting all his meds ready for his trip to [facility] The patient has been identified by name [...] Moreno LPN June 14, 2024 10:11 AM [facility]08-16-2024 Miscellaneous Notes* Telephone Encounter - Elsy Moreno LPN - 06/14/2024 10:11 AM EDT Prescription Refill Information Patient stated that is going on an 8 day cruise and is getting all his meds ready for his trip to [facility] The patient has been identified by name [...] 14, 2024 10:11 AM documented in this encounterKindred Healthcare07-29-2024 History of Present illness Narrative* George Vázquez MD - 05/27/2024 12:46 PM EDT This note was created using Soricimed. Subjective Horace Henderson is a 68 year old male. He was doing well in general. He had chronic Achilles tendonitis and had temporary symptomatic relief from prednisone prescribed by his atmospheric drier tender in the past.He was leaving for travel next month, and requested a prescription to help. His other conditions were stable. Most medications are from his metal furniture glazier and inside sales specialist. He was taking metoprolol, but was [...] wellness note. 2. 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- ICD9: 414.01, ICD10: I25.10 Stable. - CLOPIDOGREL 75 MG TABLET - METOPROLOL SUCCINATE ER 50 MG TABLET,EXTENDED RELEASE 24 HR 3. Hyperlipidemia, unspecified hyperlipidemia type - ICD9: 272.4, ICD10: E78.5 - Control undetermined, due for labs - He had labs done at [facility]. Request. - EZETIMIBE 10 MG TABLET [...] - General (Internal Medicine) Mauro Lay APRN, ELEVATOR STARTER, Heart [facility] (Cardiology) Janine Hall MD, [facility]. Chad Zarate DPM, Podiatry. [facility] [...] not ready to quit documented in this encounterKindred Healthcare07-29-2024 Instructions* Patient Instructions* George Vázquez MD - 05/27/2024 12:37 PM EDT SHINGLES VACCINES X 2. RSV VACCINE X 1. documented in this encounterKindred Healthcare07-24-2024 History of Present illness Narrative* Darlyn Moreno [...] care with patient Outcomes: Patient switched from [facility] to telephone outreach Are you experiencing any new or worsening symptoms you need to talk about today? No Based on professor of german, the following disposition is advised: No symptoms or symptoms present, not severe. Routed to: No Action Needed KAROL Education Provided this Outreach: No Darlyn Moreno RN May 22, 2024 3:55 PM documented in this encounterKindred Healthcare07-17-2024 Telephone encounter Note * Telephone Encounter - Pat Richey LPN - 05/15/2024 1:17 PM EDT Called [facility], Patient has an active RX for Omeprazole, [...] Please advise. Thank you. Pat Richey LPN. [facility]07-17-2024 Miscellaneous Notes* Telephone Encounter - Pat Richey [...] you. Pat Richey LPN. documented in this encounterKindred Healthcare06-28-2024 History of Present illness Narrative* Darlyn Moreno [...] 25, 2024 7:58 PM documented in this encounterKindred Healthcare05-02-2024 Telephone encounter Note * Telephone Encounter - Phil Mitchell MA - 02/29/2024 11:00 AM EDT Requested Prescriptions Pending Prescriptions Disp Refills omeprazole (PRILOSEC) 20 mg capsule 90 capsule 3 Sig: Take 1 capsule by mouth once daily. Date of last office visit in primary care: 11/23/2023 Date of next office visit in primary care: 02/29/2024 Please advise. Thank you. Pihl Mitchell MA. [facility]05-02-2024 Miscellaneous Notes* Telephone Encounter - Phil Mitchell MA - 02/29/2024 11:00 AM EDT Requested Prescriptions Pending Prescriptions Disp Refills omeprazole (PRILOSEC) 20 mg capsule 90 capsule 3 Sig: Take 1 capsule by mouth once daily. Date of last office visit in primary care: 11/23/2023 Date of next office visit in primary care: 02/29/2024 Please advise. Thank you. Phil Mitchell MA. documented in this encounterKindred Healthcare05-02-2024 Telephone encounter Note * Telephone Encounter - [...] Please advise. Thank you. Phil Mitchell MA. [facility]05-02-2024 Miscellaneous Notes* Telephone Encounter - Phil Mitchell [...] you. Phil Mitchell MA. documented in this encounterKindred Healthcare03-26-2024 History of Present illness Narrative* Darlyn Moreno RN - 01/23/2024 4:27 PM EDT [facility] Telephonic Outreach Provider Action/FYI CDM: Chronic Bronchitis Left a message to verify symptom status, instructed to contact PCP for condition changes and needs. Contacted for: Engagement Contact made with patient: No, left message. Darlyn Moreno RN January 23, 2024 4:27 PM documented in this encounterKindred Healthcare02-08-2024 History of Present illness Narrative* Darlyn Moreno [...] 06, 2023 12:12 PM documented in this encounterKindred Healthcare12-20-2023 History of Present illness Narrative* Sheryl Hassan [...] 18, 2023 8:05 AM documented in this encounterKindred Healthcare12-06-2023 Miscellaneous Notes* Telephone Encounter - Pat Richey LPN - 10/04/2023 3:29 PM EST Horace our office did receive your refill request however, a new prescription for Bufesonide-Formoterol (Symbicort) was sent to [facility], 10/02/2023. Please check with your pharmacy. Pat Richey LPN documented in this encounterKindred Healthcare12-02-2023 Miscellaneous Notes* Telephone Encounter - Marleni Ernandez - 09/30/2023 11:18 AM EST Requested Prescriptions Pending Prescriptions Disp Refills budesonide-formoterol (SYMBICORT) 160-4.5 mcg/actuation inhaler Sig: Inhale 2 Puffs as instructed two times a day. RAI 05/24/2023 NOV 11/21/2023 Marleni Ernandez MA documented in this [facility]11-09-2023 Miscellaneous Notes* Telephone Encounter - Kimberlee Craft LPN - 09/07/2023 4:51 PM EST Records show a valid rx at the pharmacy. Kimberlee Craft LPN documented in this [facility]10-27-2023 Miscellaneous Notes* Telephone Encounter - Phil Mitchell Ma - 08/25/2023 1:23 PM EDT RAI: 05/24/2023 Last refill: 05/24/2023 QTY: 60 / 18 g Refills: 5 documented in this [facility]09-05-2023 Miscellaneous Notes* Telephone Encounter - Pat Richey LPN - 07/04/2023 3:49 PM EDT Left message on vm, RX for Duoneb written 05/24/2023 for 60 each, 5 refills. Please check with your pharmacy. Pat Richey LPN documented in this [facility]08-23-2023 Miscellaneous Notes* Telephone Encounter - Pat Richey LPN - 06/21/2023 9:13 AM EDT Horace, our office did receive your refill request for Ipratropium-Albuterol (Duoneb) however, a new prescription was sent to [facility] on 05/24/2023 with 5 refills. Check with your pharmacy, they should have the prescription on file waiting for you to call to fill. Pat Richey LPN documented in this encounterKindred Healthcare08-08-2023 History of Present illness Narrative* Darlyn Moreno [...] 01, 2023 12:09 PM documented in this encounterKindred Healthcare07-31-2023 Nurse Note* Allyssa Thomas RN - 05/29/2023 1:06 PM EDT Area to left buttock is without warmth, the edges are well approximated and the incision line is clean, dry and intact. No dressing was in place. Reviewed pathology with patient. Advised that if he has any further questions or concerns, please call our office. Allyssa Thomas RN documented in this encounterKindred Healthcare07-26-2023 Instructions* Patient Instructions* George Vázquez MD - 05/24/2023 4:12 PM EDT Have you ever planned for future healthcare decisions with a power of state attorney, living will, or advance directives? Yes. Have you shared those records with your doctor? No and No. Please bring a copyto your next appointment or email to [email or web address] Advance Directive Forms Advanced Directives Forms (Irish) FORMS: [email or web address]-kvqhaj-[email or web address]-[email or web address].pdf INFORMATIONAL BROCHURE: [email or web address]/-/scassets/files/org/patients-visitors/inform ation/advance-directives.ashx?la=en Advance Directives (non-Irish) FORMS: [email or web address]/information/eryjqmt-dszsjxqqr-fgnrn/adva nce-directives#forms-tab Please bring completed forms to your next appointment or email them to . Patient Resources How to Get Started Talking with Loved Ones about your Wishes at the End of Life [email or web address]://[email or web address]/wp-content/uploads//ConversationProjec m-DuthkDouqzfjZof-Bhevawh.pdf How to Navigate Conversations with your Care Team around your Preferences [email or web address] documented in this encounterKindred Healthcare07-26-2023 History of Present illness Narrative* George Vázquez MD - 05/24/2023 4:09 PM EDT This note was created using Green [employer] Internationalriter. Subjective Horace Henderson is a 67 year old male. He was doing well. Stress test this morning was negative. GERD was controlled, and he was only taking omeprazole every other day. One month supply of nebulizersolution was requested, normally prescribed by his inside sales specialist. Review of Systems Constitutional: Negative for [...] J96.21 Stable. 5. 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- ICD9: 414.01, ICD10: [...] all Concerns with sexual function:Not at all Sur[place] anxious, stressed, angry, irritable, lonely, isolated, or [...] MD as PCP - General (Internal Medicine) [place], Darlyn Champagne RN as Branch Coordinator (Internal Medicine) Farooq Hall MD, [place] [facility]. Mauro Lay APRN, Heart Group. Chad Zarate, Podiatry, [place]. Jessie Nava MD, Surgery. Omega Javier MD, [...] pharmacy - Depression screening documented in this encounterKindred Healthcare07-14-2023 Procedure [facility]03-28-2023 Miscellaneous Notes* Telephone Encounter - Donna Casanova LPN - 01/24/2023 2:16 PM EDT Labs completed at [facility]. BMP to pcp. In scanned labs. Please review. View External Lab - BMP,LFT,lipids [ID [id number]] documented in this encounterKindred Healthcare03-22-2023 History of Present illness Narrative* George Vázquez MD - 01/18/2023 3:59 PM EDT This note was created using twtMobter. Subjective Patient presents with: 2 month follow-up Horace Henderson is a 67 year old male. He was doing reasonably well. His hypertension was high, but he had stopped furosemide due to urinary frequency and the need to drive for work. He also stoppedpowdered potassium due to cost. Dysphagia was resolved at this time. He saw his metal furniture glazier last month and blood pressure was normal. [...] 10/14/1996 SVG to diagonal. STEPHENS to LAD. [facility]. CC CORONARY STENT 09/29/2021 Biotronik 2.5x22 [...] OF 01/05/2006 stents cardiac x 6, timmatias vega, 2 year intervals REVISE MEDIAN N/CARPAL [...] METABOLIC PNL 2. 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- ICD9: 414.01, ICD10: [...] 20) George Vázquez MD documented in this encounterKindred Healthcare02-14-2023 Miscellaneous Notes* Telephone Encounter - Pat Richey LPN - 12/13/2022 12:08 PM EST [...] for another COVID booster. Please advise at [phone]. documented in this encounterKindred Healthcare02-06-2023 Miscellaneous Notes* Telephone Encounter - Pat Hunt Kaiden MILTON - 12/05/2022 6:[address] Gurpreet Vu wrote a new prescription for Duoneb 11/10/2022 with 3 refills. Please check with [facility]. Pat Kaiden MILTON documented in this encounterKindred Healthcare01-24-2023 Instructions* Patient Instructions* RENEE Gonzalez - 11/22/2022 [...] pillows when lying down. documented in this encounterKindred Healthcare01-24-2023 History of Present illness Narrative* Darlyn Adams [...] 22, 2022 2:49 PM documented in this encounterKindred Healthcare01-24-2023 History of Present illness Narrative* RENEE Gonzalez - 11/22/2022 2:32 PM EST This note was created using [employer]riter. Subjective Horace Henderson is a 67 [...] disease) 01/11/2012 Chronic bronchitis (HCC) 10/07/2013 06/17/2014 WPA207% predicted. COPD (chronic obstructive pulmonary disease) (HCC) [...] SVG to diagonal. STEPHENS to LAD. [facility]. CC CORONARY STENT 09/29/2021 Biotronik [...] HISTORY OF 01/05/2006 [facility] REVISE MEDIAN N/CARPAL TUNNEL [...] right upper extremity. Radial pulse 2+. 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 Skin: General: Skin is warm and [...] ER evaluation. RENEE Gonzalez documented in this encounterKindred Healthcare01-12-2023 Miscellaneous Notes* Telephone Encounter - Kimberlee Craft [...] you. Kimberlee Craft LPN documented in this encounterKindred Healthcare12-28-2022 Miscellaneous Notes* Telephone Encounter - Pat Richey LPN - 10/26/2022 4:31 PM EST Patient has Duoneb RX on file at [facility], pharmacy will get ready for Patient to pickup. Pat Richey LPN documented in this encounterKindred Healthcare12-15-2022 Miscellaneous Notes* Telephone Encounter - Pat Richey [...] you. Pat Richey LPN documented in this [facility]11-28-2022 Miscellaneous Notes* Telephone Encounter - Phil Mitchell Ma - 09/26/2022 2:30 PM EST RAI: 07/28/2022 Last refill: 06/20/2022 QTY: 10 vials Refills: 2 documented in this [facility]11-18-2022 Miscellaneous Notes* Telephone Encounter - Rhea Omer Ma - 09/16/2022 11:06 AM EST Refills at pharmacy documented in this [facility]11-08-2022 Miscellaneous Notes* Telephone Encounter - Pat Richey LPN - 09/06/2022 8:29 AM EST Pharmacy has RX written 06/20/2022 for Duoneb on file, will get ready for Patient to pickup. Pta Richey LPN documented in this [facility]10-24-2022 Miscellaneous Notes* Telephone Encounter - Rhea Omer Ma - 08/22/2022 11:25 AM EDT Requesting to local [facility] documented in this [facility]10-17-2022 Miscellaneous Notes* Telephone Encounter - Pat Richey LPN - 08/15/2022 8:13 PM EDT Called [facility], Patient has refills on Duoneb RX. Pharmacy will get ready for Patient Pat Richey LPN documented in this [facility]09-29-2022 History of Present illness Narrative* George Vázquez MD - 07/28/2022 4:33 PM EDT This note was created using [employer]riter. Subjective Patient presents with: ED Follow-up Horace [...] with pleuritic chest pain and went to [facility] [place] on07/15/22. CTA of the chest CT brain, and CT cervical spine showed no acute disease. ACS was ruled out. He was discharged with short term [place]. He was better. Review of Systems Constitutional: [...] consulation George Vázquez MD documented in this encounterKindred Healthcare09-16-2022 History of Present illness Narrative* Michelle Alonzo PA-C - 07/15/2022 9:30 AM EDT This note was created using [employer]riter. Subjective Horace Henderson is a 67 [...] until the . He was seen [facility] and all they did was a [...] disease) 01/11/2012 Chronic bronchitis (HCC) 10/07/2013 06/17/2014 ICW246% predicted. COPD (chronic obstructive pulmonary disease) (HCC) [...] 10/14/1996 SVG to diagonal. STEPHENS to LAD. [facility]. CC CORONARY STENT 09/29/2021 Biotronik 2.5x22 [...] provide. He refused to go back to [facility] as he states they were rude to him and did not really let him tell them what happened. I did get him to agree to go to [facility] however. He states his girlfriend will drive him. I did call report to [place].. Michelle Alonzo PA-C documented in this encounterKindred Healthcare09-06-2022 History of Present illness Narrative* Nery Ibrahim APRN.ELEVATOR STARTER - 07/05/2022 11:27 AM EDT Horace Henderson [...] disease) 01/11/2012 Chronic bronchitis (HCC) 10/07/2013 06/17/2014 LPX232% predicted. COPD (chronic obstructive pulmonary disease) (HCC) [...] SVG [facility] diagonal. [facility] 09/29/2021 Biotronik 2.5x22 [...] Discussed expected course of illness Nery Ibrahim APRN.ELEVATOR STARTER Molnupiravir Eligibility and Patient Discussion [facility] Formulary Restriction Criteria: Adult outpatients 18 years [...] verbal consent to proceeding with molnupiravir treatment. Nery Ibrahim APRN.CNP July 05, 2022 11:25 AM documented in this encounterKindred Healthcare09-06-2022 Instructions* Patient Instructions* Nery Ibrahim APRN.CNP - 07/05/2022 11:27 AM EDT [...] Discussed expected course of illness Nery Ibrahim APRN.ELEVATOR STARTER Fact Sheet for Patients And Caregivers Emergency [...] healthcare provider to share your information with [employer],then your healthcare provider will report your use of molnupiravir during to [employer]. by calling or Pregnancyreporting.Birdback. For individuals who are sexually active with [...] molnupiravir for the treatment of adults with pyqy-ug-tqtothpr coronavirus disease 2019 (COVID-19) with positive results [...] virus. COVID-19 illnesses have ranged from very lmkr-fj-hcshki, including illness resulting in . While information [...] is an investigational medicine used to treat pewa-bf-bqcejkfp COVID-19 in adults: with positive results of [...] serious illnesses Are taking any medicines (prescription, vsoq-pco-skmqehq, vitamins, or herbal products). How do I [...] to treat people with COVID-19. Go to https://www.fda.gov/gwrtaaaar-hrznjpsmgtoe-kqm-response/pvl-crpohwqyartvtaq-umj- policy-framework/vgnayyijn-okj-sqqgbxomkslfy for more information. It is your choice [...] to FDA MedWatch at www.fda.gov/medwatch or call 1-153-WNV-9416 ( ). How should I store molnupiravir? Store molnupiravir capsules at room temperature between 68 F to 77 F (20 C to 25 C). Keep molnupiravir and all medicines out of the reach of children and pets. How can I learn more about COVID-19? Ask your healthcare provider. Visit www.cdc.gov/COVID19 Contact your local or state public health department. Call [employer] at (toll free in the [place] Visit www.Plovghnupiravir.InboxFever What Is an Emergency Use Authorization (EUA)? The [place] FDA has made molnupiravir available under an emergency access mechanism called an Emergency Use Authorization (EUA) The EUA is supported by a Fastener Technologist of Health and Human Service (HHS) declaration that circumstances exist to justify emergency use of drugs and biological products during the COVID-19 pandemic. Molnupiravir for the treatment of jiid-cm-koinwzjt COVID-19 in adults with positive results of [...] used under the EUA). For patent information: www.Abaxia.InboxFever/research/patent Copyright 2020 [employer] [place], [place] and its affiliates. All rights reserved. [id number] Issued: 10/21/2021 documented in this encounterKindred Healthcare09-06-2022 Miscellaneous Notes* Telephone Encounter - Dodie Sarah [...] him in a container. documented in this encounterKindred Healthcare09-05-2022 Instructions* Patient Instructions* Sharon Zamora PA-C - [...] care. Sharon Zamora PA-C documented in this encounterKindred Healthcare09-05-2022 History of Present illness Narrative* Sharon Zamora [...] disease) 01/11/2012 Chronic bronchitis (HCC) 10/07/2013 06/17/2014 WSX048% predicted. COPD (chronic obstructive pulmonary disease) (HCC) [...] which included preparing to see the patient, itqc-wi-qwjp patient care, completing clinical documentation, performing a medically appropriate examination, counseling and educating the patient/family/caregiver, and ordering medications, tests,or procedures. documented in this encounterKindred Healthcare08-31-2022 Miscellaneous Notes* Telephone Encounter - Phil Mitchell Ma - 06/29/2022 10:32 AM EDT RAI: 05/09/2022 Last refill: med update. documented in this encounterKindred Healthcare08-29-2022 Miscellaneous Notes* Telephone Encounter - Phil Mitchell Ma - 06/27/2022 12:48 PM EDT RAI: 05/09/2022 Last refill: 11/21/2021 QTY: 180 Refills: 3 documented in this encounterKindred Healthcare08-22-2022 Miscellaneous Notes* Telephone Encounter - Pat Richey [...] you. Pat Richey LPN documented in this encounterKindred Healthcare08-01-2022 Miscellaneous Notes* Telephone Encounter - Pat Richey [...] you. Pat Richey LPN documented in this encounterKindred Healthcare07-27-2022 History of Present illness Narrative* Josh Reveles [...] treviño name is Darlyn Moreno RN your Professor Of Special Education [facility] I am reaching out today because [...] 25, 2022 3:37 PM documented in this encounterKindred Healthcare07-18-2022 Miscellaneous Notes* Telephone Encounter - Kimberlee Craft LPN - 05/16/2022 10:13 AM EDT Pt called and requests referral to gastro and all information be faxed to Dr. Javier at [facility]. Done. Kimberlee Craft LPN documented in this encounterKindred Healthcare07-12-2022 Miscellaneous Notes* Telephone Encounter - Kimberlee Craft LPN - 05/10/2022 4:09 PM EDT Gifty with [facility] called for last office visit/labs/procedures done. Identifiedpt with name and date of . They received referral and demographics sheet. Faxed above to [phone]. Kimberlee Craft LPN documented in this encounterKindred Healthcare06-27-2022 History of Present illness Narrative* Josh Reveles RN - 04/25/2022 2:01 PM EDT INSIGHT CD TELEPHONIC OUTREACH Provider Action/FYI: Call to Pt left a message to verify COPD/ Bronchitis status or needs. Contact made with patient: No - Left message Qian my name is Darlyn Moreno RN your Professor Of Special Education from the [facility] I am callingtoday for your bi-weekly check [...] 25, 2022 2:01 PM documented in this encounterKindred Healthcare06-16-2022 Miscellaneous Notes* Telephone Encounter - Pat Richey [...] you. Pat Richey LPN [facility] History of Present illness Narrative* Josh Reveles RN - 04/06/2022 1:[address] [facility] TELEPHONIC OUTREACH Provider Action/FYI: Call to Pt left a message to verify COPD/ Bronchitis status or needs. Contact made with patient: No - Left message Qian my name is Darlyn Moreno RN your Professor Of Special Education from the [facility] I am callingtoday for your bi-weekly check [...] RN - 04/04/2022 3:54 PM EDT inSight CD Engagement Provider Action/FYI: Call to Pt left a vm to verify COPD or other symptom status and needs. Contact Made with Patient: No, first attempt, left message. Qian Henderson. This is Darlyn Moreno RN your Professor Of Special Education from the [facility]. I am calling to check in with you concerning the MyChart questionnaire you have been receiving from me. I will call you again tomorrow and am looking forward to speaking with you. (Professor Of Special Education enters next day in "next patient outreach") Darlyn Moreno RN April 04, 2022 3:54 PM documented in this [facility]22 Miscellaneous Notes* Telephone Encounter - Phil Mitchell [...] advise. Phil Mitchell Ma documented in this [facility]22 Miscellaneous Notes* Telephone Encounter - Phil Mitchell [...] pharmacy. Phil Mitchell Ma documented in this [facility]05-02[facility]22 History of Present illness Narrative* Josh Reveles RN - 02/28/2022 3:32 PM EDT inSight CDM Engagement Provider Action/FYI: Call to Pt left a vm to verify COPD or other symptoms and needs. Contact Made with Patient: No, first attempt, left message. Qian Vu Ihsan Madison. This is Darlyn Moreno RN your Professor Of Special Education from the [facility]. I am calling to check in with you concerning the MyChart questionnaire you have been receiving from me. I will call you again and am looking forward to speaking with you. (Professor Of Special Education enters next day in "next patient outreach") Darlyn Moreno RN February 28, 2022 3:33 PM documented in this encounter[facility]04-[facility]22 History of Present illness Narrative* Josh Reveles RN - 02/04/2022 3:28 PM EDT inSight CDM Engagement Provider Action/FYI: Call to Pt left a vm to verify COPD or other symptoms and needs. Provided Insight Monitoring questionnaire location and reminder. Contact Made with Patient: No, first attempt, left message. Qian Henderson. This is Darlyn Moreno RN your Professor Of Special Education from the [facility]. I am calling to check in with you concerning the MyChart questionnaire you have been receiving from me. I will call you again tomorrow and am looking forward to speaking with you. (Professor Of Special Education enters next day in "next patient outreach") Darlyn Moreno RN February 04, 2022 3:28 PM documented in this encounter[facility]03-25-[facility]22 History of Present illness Narrative* Josh Reveles RN - 01/21/2022 2:28 PM EDT PRIMARY CARE COORDINATION QUICK NOTE Provider Action/FYI Insight Questionnaire resent via smart phone Patient identified by name and date . 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 kaw heart without angina pectoris chronic COPD (chronic obstructive pulmonary disease) chronic Hyperlipidemia chronic Hypertension [facility] Work Phone: 1(110) 295-370701-01-2022 Evaluation note* Diagnosis Onset Date Resolution Status Presence of stent in coronary artery October, acute 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 kaw heart without angina pectoris chronic COPD (chronic obstructive pulmonary disease) chronic Hyperlipidemia chronic Hypertension chronic Nocturnal hypoxia chronic Smoking greater than 30 pack years chronic 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 Presence of stent in coronary artery October, acute 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 kaw heart without angina pectoris chronic COPD (chronic obstructive pulmonary disease) chronic Hyperlipidemia chronic Hypertension [facility] Work Phone: 1(278) 346-404001-01-2022 Evaluation note* Diagnosis Onset Date Resolution Status Presence of stent in coronary artery October, acute 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 kaw heart without angina pectoris chronic COPD (chronic obstructive pulmonary disease) chronic Hyperlipidemia chronic Hypertension chronic [id number] acute Stage 3 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 [facility] Work Phone: 1(521) 626-430301-01-2022 Evaluation note* Diagnosis Onset Date Resolution Status Presence of stent in coronary artery October, acute Syncope acute Atherosclerosis of coronary artery of kaw heart without angina pectoris chronic COPD (chronic obstructive pulmonary disease) chronic Hyperlipidemia chronic Postprandial epigastric pain chronic Nocturnal hypoxia chronic Solid nodule of lung greater than 8 mm in diameter chronic 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 Shortness of breath on exertion acute Stage 3 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 [facility] Work Phone: 1(299) 892-278803-02-2021 History of Present illness Narrative* Sheryl Hassan (Rt), Tech - 12/29/2020 12:50 PM EST Radiology Service Progress Note PATIENT NAME: Horace GOMEZN: [id number] DATE OF SERVICE: December 29, 2020 TIME: [...] 29, 2020 12:51 PM documented in this encounterKind[facility]01-12-2017 History of Past illness Narrative* Problem Noted Date Resolved Date Essential hypertension 11/10/2016 7 Tobacco abuse 11/06/2015 11/15/2016 Lumbar disc displacement without myelopathy 0 03/201404/17/2018 Lumbar radiculopathy 12/13/2013 04/17/2018 Primary localized osteoarthrosis, lower leg 03/201404/29/2015 Knee 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 11/04/2013 04/29/2015 Perforated diverticulum of large intestine 08/2010/27/2012 Sciatica 06/21/2012 04/29/2015 Diverticulitis 01/09/2014 documented as of this encounter (statuses as of 01/21/2022) [facility] Narrative* Problem Noted Date Resolved Date Essential hypertension 11/10/2016 7 Tobacco abuse 11/06/2015 11/15/2016 Lumbar disc displacement without myelopathy 0 03/201404/17/2018 Lumbar radiculopathy 12/13/2013 04/17/2018 Primary localized osteoarthrosis, lower leg 0 03/201404/29/2015 Knee 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 11/04/2013 04/29/2015 Perforated diverticulum of large intestine 08/2010/27/2012 Sciatica 06/21/2012 04/29/2015 Diverticulitis 01/09/2014 documented as of this encounter (statuses as of 02/04/2022) [facility] Narrative* Problem Noted [...] of this encounter (statuses as of 02/23/2022) [facility] Narrative* Problem Noted [...] of this encounter (statuses as of 02/28/2022) [facility] Narrative* Problem Noted [...] of this encounter (statuses as of 03/21/2022) [facility] Narrative* Problem Noted [...] of this encounter (statuses as of 03/21/2022) [facility] Narrative* Problem Noted [...] of this encounter (statuses as of 04/06/2022) [facility] Narrative* Problem Noted [...] of this encounter (statuses as of 04/14/2022) [facility] Narrative* Problem Noted [...] of this encounter (statuses as of 04/21/2022) [facility] Narrative* Problem Noted [...] of this encounter (statuses as of 04/25/2022) [facility] Narrative* Problem Noted [...] of this encounter (statuses as of 05/10/2022) [facility] Narrative* Problem Noted [...] of this encounter (statuses as of 05/16/2022) [facility]ative* Problem Noted [...] of this encounter (statuses as of 05/24/2022) [facility] Narrative* Problem Noted [...] of this encounter (statuses as of 05/25/2022) [facility] N[facility]ative* Problem Noted [...] of this encounter (statuses as of 05/30/2022) [facility]ative* Problem Noted [...] of this encounter (statuses as of 06/20/2022) [facility] Narrative* Problem Noted [...] of this encounter (statuses as of 06/27/2022) [facility]arrative* Problem Noted [...] of this encounter (statuses as of 06/29/2022) [facility] Narrative* Problem Noted [...] of this encounter (statuses as of 07/04/2022) [facility]* Problem Noted [...] of this encounter (statuses as of 07/05/2022) [facility]* Problem Noted [...] of this encounter (statuses as of 07/05/2022) [facility]* Problem Noted [...] of this encounter (statuses as of 07/15/2022) [facility]* Problem Noted [...] of this encounter (statuses as of 07/28/2022) [facility]ative* Problem Noted [...] of this encounter (statuses as of 08/16/2022) [facility]* Problem Noted [...] of this encounter (statuses as of 08/22/2022) [facility]* Problem Noted [...] of this encounter (statuses as of 08/03/2022) [facility]* Problem Noted [...] of this encounter (statuses as of 09/06/2022) [facility]* Problem Noted [...] of this encounter (statuses as of 09/16/2022) [facility]* Problem Noted [...] of this encounter (statuses as of 09/26/2022) [facility]* Problem Noted [...] of this encounter (statuses as of 10/13/2022) [facility]* Problem Noted [...] of this encounter (statuses as of 10/19/2022) [facility]* Problem Noted [...] of this encounter (statuses as of 11/02/2022) [facility]* Problem Noted [...] of this encounter (statuses as of 11/10/2022) [facility]* Problem Noted [...] of this encounter (statuses as of 11/11/2022) [facility]* Problem Noted [...] of this encounter (statuses as of 11/22/2022) [facility]* Problem Noted [...] of this encounter (statuses as of 12/06/2022) [facility]* Problem Noted [...] of this encounter (statuses as of 12/13/2022) [facility]* Problem Noted [...] of this encounter (statuses as of 01/19/2023) [facility]* Problem Noted Date Resolved Date Essential hypertension 11/10/2016 7 Tobacco abuse 11/06/2015 11/15/2016 Lumbar disc displacement without myelopathy 03/201404/17/2018 Lumbar radiculopathy 12/13/2013 04/17/2018 Primary localized osteoarthrosis, lower leg 03/201404/29/2015 Knee 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 11/04/2013 04/29/2015 Perforated diverticulum of large intestine 08/2010/27/2012 Sciatica 06/21/2012 04/29/2015 Diverticulitis 01/09/2014 documented as of this encounter (statuses as of 01/31/2023) [facility]* Problem Noted [...] of this encounter (statuses as of 05/25/2023) [facility]* Problem Noted [...] of this encounter (statuses as of 05/29/2023) [facility]* Problem Noted [...] of this encounter (statuses as of 06/07/2023) [facility]* Problem Noted [...] of this encounter (statuses as of 06/21/2023) [facility]* Problem Noted [...] of this encounter (statuses as of 07/05/2023) [facility]* Problem Noted [...] of this encounter (statuses as of 08/25/2023) [facility]* Problem Noted [...] of this encounter (statuses as of 09/08/2023) [facility]* Problem Noted [...] of this encounter (statuses as of 10/02/2023) [facility]* Problem Noted [...] of this encounter (statuses as of 10/03/2023) [facility]* Problem Noted [...] of this encounter (statuses as of 10/05/2023) [facility]* Problem Noted [...] of this encounter (statuses as of 12/08/2023) [facility]* Problem Noted [...] of this encounter (statuses as of 01/23/2024) [facility] note* Diagnosis Chronic bronchitis, unspecified chronic bronchitis type (HCC) documented in this encounter [facility] note* Diagnosis Hyperlipidemia, unspecified hyperlipidemia type- Primary [facility] Diagnosis Primary osteoarthritis of right knee Primary localized osteoarthrosis, lower leg [facility]* Diagnosis Chronic bronchitis, unspecified chronic bronchitis type (HCC) documented in this encounter [facility] note* Diagnosis Chronic bronchitis, unspecified chronic bronchitis type (HCC) [facility]* Diagnosis Essential hypertension Unspecified essential hypertension [facility]* Diagnosis Oral candidiases- Primary [facility]* Diagnosis Suspected COVID-19 virus infection- Primary [facility]* Diagnosis Onset Date Resolution Status [id number] acute Stage 3 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 [facility] Work Phone: Evaluation note* Diagnosis Pleuritic chest pain- Primary Painful respiration [facility]* Diagnosis Cough syncope- Primary Cough Contusion of right chest wall, subsequent encounter Gallstones Calculus of gallbladder without mention of cholecystitis or obstruction [facility]* Diagnosis Onset Date Resolution Status [id number] acute 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 Abdominal discomfort [facility] Work Phone: Evaluation note* Diagnosis Primary osteoarthritis of right knee- Primary Primary localized osteoarthrosis, lower leg [facility]* Diagnosis Chronic bronchitis, unspecified chronic bronchitis type (HCC) [facility]* Diagnosis Onset Date Resolution Status [id number] acute 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 Abdominal discomfort chronic 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 [facility] Work Phone: evaluation note* Diagnosis Essential hypertension Unspecified essential hypertension [facility]* Diagnosis Onset Date Resolution Status Abdominal discomfort chronic Stage 3 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 [facility] Work Phone: Evaluation note* Diagnosis Onset Date Resolution Status Abdominal discomfort chronic 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 Abdominal pain acute Constipation acute History of partial colectomy acute Dyspnea acute Hypoxia acute Influenza A acute COPD exacerbation chronic [facility] Work Phone: Evaluation note* Diagnosis Onset Date Resolution Status Abdominal discomfort chronic 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 Abdominal pain acute Constipation acute History of partial colectomy acute Hypoxia acute Influenza A acute COPD exacerbation resolved Dyspnea resolved [facility] Work Phone: Evaluation note* Diagnosis Acute pain of right shoulder- Primary Strain of right shoulder, initial encounter [facility]* Diagnosis Chronic bronchitis, unspecified chronic bronchitis type (HCC) documented in this encounter [facility] note* Diagnosis Onset Date Resolution Status Abdominal pain acute Constipation acute History of partial colectomy acute Hypoxia acute Influenza A acute COPD exacerbation resolved Dyspnea resolved Gallstone acute Presence of stent in coronary artery October, acute Solid nodule of lung greater than 8 mm in diameter acute Nocturnal hypoxia chronic 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 S/P laparoscopic cholecystectomy acute [facility] Work Phone: Evaluation note* Diagnosis Primary hypertension- Primary Unspecified essential hypertension 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 Hyperlipidemia, unspecified hyperlipidemia type Chronic bronchitis, unspecified chronic bronchitis type (HCC) Acute on chronic respiratory failure with hypoxia (HCC) Need for vaccination Need for prophylactic vaccination and inoculation against unspecified single disease documented in this encounter [facility] note* Diagnosis Onset Date Resolution Status Abdominal [...] Syncope acute Atherosclerosis of coronary artery of kaw heart without angina pectoris chronic COPD (chronic obstructive pulmonary disease) chronic Hyperlipidemia chronic Postprandial epigastric pain chronic Nocturnal hypoxia chronic Solid nodule of lung greater than 8 mm in diameter chronic Stage 3 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 [facility] Work Phone: Evaluation note* Diagnosis Onset Date Resolution Status Nocturnal hypoxia chronic Solid nodule of lung greater than 8 mm in diameter chronic 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 Shortness of breath on exertion acute 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 Shortness of breath on exertion acute Atherosclerosis of coronary artery of kaw heart without angina pectoris chronic COPD (chronic obstructive pulmonary disease) chronic Hyperlipidemia chronic 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 Shortness of breath noneacti ve Exocrine pancreatic insufficiency chronic Postprandial epigastric pain [facility] Work Phone: Evaluation note* Diagnosis Medicare annual wellness visit, subsequent- Primary Routine general medical examination at a health care facility Primary hypertension Unspecified essential hypertension Chronic bronchitis, unspecified chronic bronchitis type (HCC) Acute on chronic respiratory failure with hypoxia (HCC) 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 Gastroesophageal reflux disease, unspecified whether esophagitis present Tobacco use disorder Hyperlipidemia, unspecified hyperlipidemia type [facility]* Diagnosis Infected cyst of skin- Primary Sebaceous cyst Skin cyst Sebaceous cyst [facility]* Diagnosis Onset Date Resolution Status Shortness of breath on exertion acute 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 Shortness of breath on exertion acute Atherosclerosis of coronary artery of kaw heart without angina pectoris chronic COPD (chronic obstructive pulmonary disease) chronic Hyperlipidemia chronic 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 Shortness of breath noneacti ve Exocrine pancreatic insufficiency chronic Postprandial epigastric pain [facility] Work Phone: Evaluation note* Diagnosis Chronic bronchitis, unspecified chronic bronchitis type (HCC) [facility]* Diagnosis Onset Date Resolution Status Exocrine pancreatic insufficiency chronic Postprandial epigastric pain chronic Shortness of breath on exertion acute Atherosclerosis of coronary artery of kaw heart without angina pectoris chronic COPD (chronic obstructive pulmonary disease) chronic Hyperlipidemia chronic Acute upper respiratory infection acute 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 Nocturnal hypoxia chronic Smoking greater than 30 pack years chronic 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 Tachycardia acute TIA (transient ischemic attack) acute Atherosclerosis of coronary artery of kaw heart without angina pectoris chronic COPD (chronic obstructive pulmonary disease) chronic Hyperlipidemia [facility] Work Phone: Evaluation note* Diagnosis Onset Date Resolution Status Shortness of breath on exertion acute Atherosclerosis of coronary artery of kaw heart without angina pectoris chronic COPD (chronic obstructive pulmonary disease) chronic Hyperlipidemia chronic Acute upper respiratory infection acute 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 Nocturnal hypoxia chronic Smoking greater than 30 pack years chronic 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 Tachycardia acute TIA (transient ischemic attack) acute Atherosclerosis of coronary artery of kaw heart without angina pectoris chronic COPD (chronic obstructive pulmonary disease) chronic Hyperlipidemia [facility] Work Phone: Evaluation note* Diagnosis Chronic bronchitis, unspecified chronic bronchitis type (HCC) [facility]* Diagnosis Gastroesophageal reflux disease, unspecified whether esophagitis present [facility]* Diagnosis Chronic bronchitis, unspecified chronic bronchitis type (HCC)- Primary [facility]* Diagnosis Onset Date Resolution Status ALMONTE (dyspnea on exertion) ac curyung Atherosclerosis of coronary artery of kaw heart without angina pectoris chronic Hyperlipidemia chronic Nocturnal hypoxia chronic Smoking greater than 30 pack years chronic Stage 3 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 [facility] Work Phone: Evaluation note* Diagnosis Gastroesophageal reflux disease, unspecified whether esophagitis present [facility] Diagnosis Essential hypertension Unspecified essential hypertension [facility] Diagnosis Chronic bronchitis, unspecified chronic bronchitis type (HCC) Gastroesophageal reflux disease, unspecified whether esophagitis present [facility] Diagnosis Medicare annual wellness visit, subsequent- Primary Routine general medical examination at a health care facility 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 Hyperlipidemia, unspecified hyperlipidemia type Chronic bronchitis, unspecified chronic bronchitis type (HCC) Primary hypertension Unspecified essential hypertension Screening for depression Encounter for screening examination for other mental health and behavioral disorders Gastroesophageal reflux disease, unspecified whether esophagitis present Achilles tendinitis of both lower extremities Acute on chronic respiratory failure with hypoxia (HCC) documented in this encounter [facility] note* Diagnosis Chronic bronchitis, unspecified chronic bronchitis type (HCC) documented in this encounter [facility] note* Diagnosis SOB (shortness of breath) Shortness of breath documented in this encounter [facility] note* Diagnosis Chronic bronchitis, unspecified chronic bronchitis type (HCC) [facility] Diagnosis Chronic bronchitis, unspecified chronic bronchitis type (HCC) [facility]* Diagnosis Acute pain of right shoulder documented in this encounter [facility] note* Diagnosis Achilles tendinitis of both lower extremities [facility]* Diagnosis Acute right-sided low back pain without sciatica [facility]* Diagnosis Chest wall pain- Primary Painful respiration Chronic bronchitis, unspecified chronic bronchitis type (HCC) Hyperlipidemia, unspecified hyperlipidemia type Impaired glucose metabolism Impaired glucose tolerance test documented in this encounter [facility] note* Diagnosis Respiratory infection- Primary Other diseases of respiratory system, not elsewhere classified Thrush Candidiasis of mouth documented in this encounter [facility] note* Diagnosis Subacute cough- Primary Cough COPD with exacerbation (HCC) Obstructive chronic bronchitis with exacerbation Subacute cough Cough documented in this encounter [facility] note* Diagnosis Subacute cough Cough [facility]* Diagnosis COPD with exacerbation (HCC)- Primary Obstructive chronic bronchitis with exacerbation 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 [facility] Diagnosis Tobacco abuse Tobacco use disorder [facility]* Diagnosis Dyspnea, unspecified type- Primary 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 COPD (chronic obstructive pulmonary disease) with chronic bronchitis (HCC) Obstructive chronic bronchitis without exacerbation Sinus tachycardia Other specified cardiac dysrhythmias [facility]* Diagnosis COPD (chronic obstructive pulmonary disease) with chronic bronchitis (HCC)- Primary Obstructive chronic bronchitis without exacerbation Acute on chronic respiratory failure with hypoxia (HCC) Nodule of lower lobe of left lung (low dose lung CT) [facility]* Diagnosis COPD (chronic obstructive pulmonary disease) with chronic bronchitis (HCC)- Primary Obstructive chronic bronchitis without exacerbation Acute on chronic respiratory failure with hypoxia (HCC) Tobacco use disorder 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 Kidney insufficiency Unspecified disorder of kidney and ureter [facility] Diagnosis Tobacco use disorder [facility] Diagnosis Medicare annual wellness visit, subsequent- Primary Routine general medical examination at a health care facility 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 Hyperlipidemia, unspecified hyperlipidemia [...] CT) Other eczema [facility] Diagnosis Pain of right hip- Primary Pain of right hip [facility] Diagnosis Pain of right hip [facility] Diagnosis Acute right hip pain- Primary Pain in joint, pelvic region and thigh Primary osteoarthritis of right hip Primary localized osteoarthrosis, pelvic region and thigh Calcific tendinitis of right hip [facility] Diagnosis Acute right hip pain Pain in joint, pelvic region and thigh Trochanteric bursitis of right hip Enthesopathy of hip region Unilateral primary osteoarthritis, right hip [facility]* Diagnosis Encounter for screening for other musculoskeletal disorder [facility] instructionsAmbulatory Orders* Physical Therapy Referral Location: None [facility] Work Phone: Progress note Author Michael Narayan [facility] Note Date/Time July 21, 2025 8:32am [facility] [address] [place] [id number] OFFICE VISIT Date of Service: 07/21/25 MR#: [id number] Acct: [id number] Name: HORACE HENDERSON Rep #: [id number] : 1955 Provider: Dr. David Narayan, DO Age/Sex: 70/M Location: [facility]EMILE[facility] Status: Signed Intake Vital Signs 05/05/25 12:58 [...] disease), lumbar Atherosclerosis of coronary artery of kaw heart without angina pectoris Atherosclerosis of coronary [...] Michael Narayan, DO 07/21/25 0748. Part of today?s visit was documented by [...] arthritis".He saw a doctor, Best Bryant at [facility] and he had a steroid injection about [...] hip MRI that was done at the [facility] prior to his appointment today. He does [...] applicable) CC: Dr. George Vázquez MD ~ [facility] Work Phone: Reason for referral (narrative)* Diagnostic Procedure Only (Routine) - Closed Specialty Diagnoses / Procedures Referred By Contac t Referred To Contact XR IMAGING Diagnoses Acute pain of right shoulder Procedures XR SHOULDER GENERAL 3V OR MORE AP/TRUE AP/OTHER RIGHT RADEX SHOULDER COMPLETE MINIMUM 2 VIEWS Express [facility] [address] [place] [address] [place] [address] Referral ID Status Reason Start Date Expiration Date V isits Requested Visits Authorized [id number] Closed Auto-Generate d Referral 11/22/2022 12/22/2023 1 1 [facility] for referral (narrative)* Outpatient Procedure (Routine) - New Request Specialty Diagnoses / Procedures Referred By Contac t Referred To Contact [facility] Diagnoses 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 Procedures ECG COMPLETE ECG ROUTINE ECG W/LEAST 12 LDS W/I&R George Vázquez MD [address] [place] [address] [facility] [place] [address] [place] [id number] Referral ID Status Reason Start Date Expiration Date Visits Requested Visits Authorized [id number] New Request Auto-Generat ed Referral 4 09/12/2025 1 1 [facility] for referral (narrative)No reason for referral information [facility] Work Phone: Reason for visit Narrative* Diagnostic Procedure Only (Urgent) - Closed Specialty Diagnoses / Procedures Referred By Contac t Referred To Contact XR IMAGING Diagnoses Acute pain of right shoulder Procedures XR SHOULDER [id number] AP/TRUE AP RIGHT RADEX SHOULDER COMPLETE MINIMUM 2 VIEWS [facility] [address] [place] [address] [place] [address] Referral ID Status Reason Start Date Expiration Date V isits Requested Visits Authorized [id number] Closed Auto-Generate d Referral 11/22/2022 12/22/2023 1 1 [facility] for visit Narrative* Diagnostic Procedure Only (Urgent) - Closed Specialty Diagnoses / Procedures Referred By Domingo t Referred To Contact XR IMAGING Diagnoses Pain of right hip Procedures XR HIP GENERAL 3V PELV/AP/LAT RIGHT RADEX HIP UNILATERAL WITH PELVIS 2-3 VIEWS Prateek Matos, DEWAYNE.ELEVATOR STARTER [address] [place] [address] Phone: tel: fax: [place] [address] Referral ID Status Reason Start Date Expiration Date V isits Requested Visits Authorized [id number] Closed Auto-Generate d Referral 07/03/2025 08/02/2026 1 1 [facility] for visit Narrative* MRI/CT (Routine) - Closed Specialty Diagnoses / Procedures Referred By Domingo t Referred To Contact MR IMAGING Diagnoses Encounter for screening for other musculoskeletal disorder Procedures MRI HIP WO IVCON RIGHT MRI ANY JT LOWER EXTREM W/O CONTRAST MATRL Low Bryant, V, DO [address] [place] [address] Phone: tel: fax: [place] [address] Referral ID Status Reason Start Date Expiration Date V isits Requested Visits Authorized [id number] Closed Auto-Generate d Referral 07/11/2025 08/10/2026 1 1 [facility] Summary Purpose Family History No Family History Records Found Relationship Condition Age at Onset Recorded Date/T eric father Coronary artery disease Unknown Relationship Condition Age at Onset Recorded Date/T eric father Coronary artery disease Unknown brother Hypertension Unknown grandfather Malignant neoplasm of pancreas Unknown grandmother Cardiac disease Unknown Advance Directives No Advanced Directives Records FoundDocuments on File Type Date Recorded Patient Manager Forms Expl anation Advance Directive(s) 11/12/2021 6:29 AM [...] Will No November 22 3:45pm Power of Propagator No November 22, 2021 3:45pm Advance Directive Response Recorded Date/ Time Name of Medical Power of Propagator ALKA AND DI TIERA July 13, 2022 5:08pm Advance Directives Yes September 29, 2021 8:36am Living Will Yes July 13, 2022 5:08pm Power of Propagator Yes June 5:08pm Advance Directive Response Recorded Date/ Time Name of Medical Power of Propagator ALKA AND DI TIERA July 13, 2022 4:08pm Advance Directives Yes September 29, 2021 7:36am Living Will Yes July 13, 2022 4:08pm Power of Propagator Yes June 4:08pm Advance Directive Response Recorded Date/ Time Name of Medical Power of Propagator ALKA AND DI TIERA July 13, 2022 4:08pm Name of Medical Power of Propagator ALKA October 28, 2022 2:38am Advance Directives Yes September 29, 2021 7:36am Living Will Yes October 28, 2 022 2:38am Power of Propagator Yes October 28, 2022 2:38am Advance Directive Response Recorded Date/ Time Name of Medical Power of Propagator ALKA AND DI TIERA July 13, 2022 4:08pm Name of Medical Power of Propagator stephanie matos October 28, 2022 4:55am Advance Directives Yes September 29, 2021 7:36am Living Will No October 28, 022 4:55am Power of Propagator Yes October 28, 2022 4:55am Advance Directive Response Recorded Date/ Time Name of Medical Power of Propagator stephanie matos October 28, 2022 4:55am Name of Medical Power of Propagator DAUGHTER November 24, 2022 9:18am Advance Directives Yes September 29, 2021 7:36am Living Will Yes November 24 9:18am Power of Propagator Yes November 24, 2022 9:18am Advance Directive Response Recorded Date/ Time Name of Medical Power of Propagator ANALY MATOS December 26, 2022 12:30pm Advance Directives Yes September 29, 2021 8:36am Living Will Yes December 26 12:30pm Power of Propagator Yes December 26, 2022 12:30pm Name of Medical Power of Propagator stephanie matos October 28, 2022 5:55am Name of Medical Power of Propagator DAUGHTER November 24, 2022 10:18am Advance Directive Response Recorded Date/ Time Name of Medical Power of Propagator ANALY MATOS December 26, 2022 12:30pm Advance Directives Yes September 29, 2021 8:36am Living Will No March 17, 2023 4 :37pm Power of Propagator No March 17, 2023 4:37pm Advance Directive Response Recorded Date/ Time Advance Directives Yes September 29, 2021 8:36am Living Will No March 17, 2023 4 :37pm Power of Propagator No March 17, 2023 4:37pm Advance Directive Response Recorded Date/ Time Advance Directives Yes September 29, 2021 7:36am Living Will No March 17, 2023 3 :37pm Power of Propagator No March 17, 2023 3:37pm Advance Directive Response Recorded Date/ Time Living Will No March 17, 2023 4 :37pm Power of Propagator No March 17, 2023 4:37pm Living Will No September 17 5:14pm Power of Propagator Yes September 17, 2024 5:14pm Name of Medical Power of Propagator alka shannon rt September 17, 2024 5:14pm Living Will No October 27 5:50pm Power of Propagator Yes October 27, 2024 5:50pm Name of Medical Power of Propagator Stephanie Matos October 27, 2024 5:50pm Advance Directives Yes September 29, 2021 8:36am Advance Directive Response Recorded Date/ Time Living Will No March 17, 2023 4 :37pm Do you have a Healthcare Power of Propagator? No March 17, 2023 4:37pm Living Will No October 27 5:50pm Do you have a Healthcare Power of Propagator? Yes October 27, 2024 5:50pm Name of Medical Power of Propagator Stephanie Matos October 27, 2024 5:50pm Advance Directives Yes September 29, 2021 8:36am Advance Directive Response Recorded Date/ Time Advance Directives Yes September 29, 2021 8:36am Advance Directive Response Recorded Date/ Time Living Will No March 17, 2023 4 :37pm Do you have a Healthcare Power of Propagator? No March 17, 2023 4:37pm Advance Directives [...] angina pectoris Atherosclerosis of coronary artery of kaw heart without angina pectoris COPD (chronic obstructive pulmonary disease) Hyperlipidemia Hypertension Presence of stent in coronary artery Atherosclerosis of coronary artery bypass graft without angina pectoris Atherosclerosis of coronary artery of kaw heart without angina pectoris COPD (chronic obstructive [...] angina pectoris Atherosclerosis of coronary artery of kaw heart without angina pectoris COPD (chronic obstructive pulmonary disease) Hyperlipidemia Hypertension Nocturnal hypoxia Smoking greater than 30 pack years Stage 3 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 Presence of stent in coronary artery Atherosclerosis of coronary artery bypass graft without angina pectoris Atherosclerosis of coronary artery of kaw heart without angina pectoris COPD (chronic obstructive pulmonary disease) Hyperlipidemia Hypertension Chief Complaint 3 M FU PCI w/cardiac stenting PCI w/cardiac stenting ACUTE/SOB POOR BALANCE/LE WKNESS/RX HERE NODULE Reason for Visit Presence of stent in coronary artery Atherosclerosis of coronary artery bypass graft without angina pectoris Atherosclerosis of coronary artery of kaw heart without angina pectoris COPD (chronic obstructive pulmonary disease) Hyperlipidemia Hypertension [id number] Stage 3 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 Chief Complaint ACUTE/SOB NODULE POOR BALANCE/LE WKNESS/RX HERE RIB PAIN WITH BREATHING/MOVEMENT Reason for Visit [id number] Stage 3 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 Chief Complaint ACUTE/SOB NODULE RIB PAIN WITH BREATHING/MOVEMENT POOR BALANCE/LE WKNESS/RX HERE Consult E-ORDER Reason for Visit [id number] Stage 3 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 Abdominal discomfort Chief Complaint ACUTE/SOB NODULE RIB PAIN WITH BREATHING/MOVEMENT Consult E-ORDER 6 M FU GASTROPARESIS POOR BALANCE/LE WKNESS/RX HERE Reason for Visit [id number] Stage 3 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 [...] ABDOMINAL PAIN GALLBLADDER PREOP Hospital FU LAP DAVDI W IOC LAP DAVID W IOC POST [...] artery Syncope Atherosclerosis of coronary artery of kaw heart without angina pectoris COPD (chronic obstructive [...] artery Syncope Atherosclerosis of coronary artery of kaw heart without angina pectoris COPD (chronic obstructive pulmonary disease) Hyperlipidemia Postprandial epigastric pain Nocturnal hypoxia Solid nodule of lung greater than 8 mm in diameter Stage 3 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 Shortness of breath on exertion Stage 3 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 Chief Complaint INT LABS/PAPER ORDER STOOL SAMPLE 6 M FU follow up SOB POOR BALANCE/LE WKNESS/RX HERE [facility] 03/17 ER// SOB AND IRREGULAR HEART [...] on exertion Atherosclerosis of coronary artery of kaw heart without angina pectoris COPD (chronic obstructive pulmonary disease) Hyperlipidemia Stage 3 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 Shortness of breath Exocrine pancreatic insufficiency Postprandial epigastric pain Chief Complaint 6 M FU follow up SOB POOR BALANCE/LE WKNESS/RX HERE [facility] 03/17 ER// SOB AND IRREGULAR HEART [...] on exertion Atherosclerosis of coronary artery of kaw heart without angina pectoris COPD (chronic obstructive pulmonary disease) Hyperlipidemia Stage 3 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 Shortness of breath Exocrine pancreatic insufficiency Postprandial epigastric pain Chief Complaint follow up SOB POOR BALANCE/LE WKNESS/RX HERE [facility] 03/17 ER// SOB AND IRREGULAR HEART BEAT Shortness of breath 3 MO FU CHRONIC OBSTRUCTIVE PULMONARY DISEASE CHRONIC OBSTRUCTIVE PULMONARY DISEASE Shortness of breath Shortness of breath FOLLOW MASS Reason for Visit Shortness of breath on exertion Stage 3 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 Shortness of breath on exertion Atherosclerosis of coronary artery of kaw heart without angina pectoris COPD (chronic obstructive [...] on exertion Atherosclerosis of coronary artery of kaw heart without angina pectoris COPD (chronic obstructive pulmonary disease) Hyperlipidemia Acute upper respiratory infection Stage 3 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 Nocturnal hypoxia Smoking greater than 30 pack years Stage 3 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 Tachycardia TIA (transient ischemic attack) Atherosclerosis of coronary artery of kaw heart without angina pectoris COPD (chronic obstructive [...] on exertion Atherosclerosis of coronary artery of kaw heart without angina pectoris COPD (chronic obstructive pulmonary disease) Hyperlipidemia Acute upper respiratory infection Stage 3 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 Nocturnal hypoxia Smoking greater than 30 pack years Stage 3 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 Tachycardia TIA (transient ischemic attack) Atherosclerosis of coronary artery of kaw heart without angina pectoris COPD (chronic obstructive pulmonary disease) Hyperlipidemia Chief Complaint CHRONIC OBSTRUCTIVE PULMONARY DISEASE CHRONIC OBSTRUCTIVE PULMONARY DISEASE Shortness of breath Shortness of breath FOLLOW MASS 6 M FU COUGH, CONGESTED 5 m fu 2 ORDERING- E ORDERS 4 M FU TIA INT LABSPEC Tachycardia, unspecified Reason for Visit Shortness of breath on exertion Atherosclerosis of coronary artery of kaw heart without angina pectoris COPD (chronic obstructive pulmonary disease) Hyperlipidemia Acute upper respiratory infection Stage 3 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 Nocturnal hypoxia Smoking greater than 30 pack years Stage 3 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 Tachycardia TIA (transient ischemic attack) Atherosclerosis of coronary artery of kaw heart without angina pectoris COPD (chronic obstructive pulmonary disease) Hyperlipidemia Chief Complaint Tachycardia, unspeci fied 3 M FU 3 M FU ALMONTE Reason for Visit ALMONTE (dyspnea on exer tion) Atherosclerosis of coronary artery of kaw heart without angina pectoris Hyperlipidemia Nocturnal hypoxia [...] check and EKG: see clinicals. Norma Bradshaw [facility] 2024 9:53am 2 M FU January 08, 2025 10: 35am EORDERS January 08, 2025 10: 45am Reason for Visit Admit Date Acute kidney insufficiency September 2:17pm Forehead laceration October 27, 2024 2:17pm Sinus tachycardia October 27, 2024 2:17pm Syncope October 27, 2024 2:17pm Atherosclerosis of coronary artery of kaw heart without angina pectoris October 27, 2024 2:17pm Syncope November 05, 2024 12 :55pm Tachycardia November 05, 2024 12 :55pm Atherosclerosis of coronary artery bypass graft without angina pectoris November 05, 2024 12:55pm Hyperlipidemia November 05, 2024 12 :55pm Stage 3 severe COPD by GOLD classificati on November 05, 2024 12:55pm Cough productive of purulent sputum [facility] 2024 10:35am Essential hypertension January 08, [...] check and EKG: see clinicals. Norma Bradshaw [facility] 2024 9:53am 2 M FU January 08, [...] 2024 2:17pm Atherosclerosis of coronary artery of kaw heart without angina pectoris October 27, 2024 [...] 2:42pm Presence of stent in coronary artery [facility] 2024 2:42pm Atherosclerosis of coronary artery [...] check and EKG: see clinicals. Norma Bradshaw [facility] 2024 9:53am 2 M FU January 08, [...] 2:42pm Presence of stent in coronary artery [facility] 2024 2:42pm Atherosclerosis of coronary artery [...] Presence of stent in coronary artery Aung y 7th, 2025 12:55pm Thrush, oral May 05, 2025 12:55 [...] Date High Risk Chronic Disease Home Monitoring [facility] 03/16/2023 Problem Noted Date Diagnosed Date High Risk Chronic Disease Home Monitoring [facility] 03/16/2023 Problem Noted Date Diagnosed Date High Risk Chronic Disease Home Monitoring [facility] 03/16/2023 Problem Noted Date Diagnosed Date High Risk Chronic Disease Home Monitoring [facility] 03/16/2023 Problem Noted Date Diagnosed Date High Risk Chronic Disease Home Monitoring [facility] 03/16/2023 Problem Noted Date Diagnosed Date High Risk Chronic Disease Home Monitoring [facility] 03/16/2023 Problem Noted Date Diagnosed Date High Risk Chronic Disease Home Monitoring [facility] 03/16/2023 Active Problems Noted Date Diagnosed Date High Risk Chronic Disease Home Monitoring [facility] 03/16/2023 Reason for Referral Specialty Diagnoses / Procedures Referred By Contac t Referred To Contact Orthopedics Diagnoses Strain of right shoulder, initial encounter Procedures CONSULT TO ORTHOPAEDICS OFFICE/OUTPATIENT [facility] MDM 60-74 MINUTES [facility] [address] [place] [address] Referral ID Status Reason Start Date Expiration Date Visits Requested Visits Authorized [id number] Authorized PCP Requested Referral 11/22/2022 11/22/2023 1 1 Specialty Diagnoses / Procedures Referred By Contac t Referred To Contact XR IMAGING Diagnoses Acute pain of right shoulder Procedures XR SHOULDER GENERAL 3V OR MORE AP/TRUE AP/OTHER RIGHT RADEX SHOULDER COMPLETE MINIMUM 2 VIEWS [facility] [address] [place] [address] Xr Imaging Referral ID Status Reason Start Date Expiration Date V isits Requested Visits Authorized [id number] Closed Auto-Generate d Referral 11/22/2022 12/22/2023 1 1 Specialty Diagnoses / Procedures Referred By Contac t Referred To Contact XR IMAGING Diagnoses Acute pain of right shoulder Procedures XR SHOULDER [id number] AP/TRUE AP RIGHT RADEX SHOULDER COMPLETE MINIMUM 2 VIEWS [facility] [address], [place] [id number] X[facility] Referral ID Status Reason Start Date Expiration Date V isits Requested Visits Authorized [id number] Closed Auto-Generate d Referral 11/22/2022 12/22/2023 1 1 Specialty Diagnoses / Procedures Referred By Contac t Referred To Contact Blanca Tilley APRN.[employer] [address] [place] [address] Referral ID Status Reason Start Date Expiration Date V isits Requested Visits Authorized [id number] Pending Review 1 1 Specialty Diagnoses / Procedures Referred By Contac t Referred To Contact Diagnoses COPD (chronic obstructive pulmonary disease) with chronic bronchitis (HCC) Acute on chronic respiratory failure with hypoxia (HCC) Nodule of lower lobe of left lung Procedures CONSULT TO PULMONARY MEDICINE George Vázquez MD [address] [place] [address] Referral ID Status Reason Start Date Expiration Date Visits Requested Visits Authorized [id number] Ref Not Required PCP Requested Referral 4 12/17/2024 1 1 Additional Source Comments (unrecognized sect ion and content) No Status Records FoundNo Status Records FoundNo Status Records FoundNo Status Records Found INFORMATION SOURCE (unrecogn ized section and content) DATE CREATED AUTHOR 01/25/2021 [facility] DATE CREATED AUTHOR AUTHOR'S ORGANIZ ATION 07/30/2022 [facility] DATE CREATED AUTHOR AUTHOR'S ORGANIZ ATION 09/07/2025 [facility] DATE CREATED AUTHOR AUTHOR'S ORGANIZ ATION 09/11/2025 [facility] Source Comments (unrecognize d section and content) In the event this informatio n is protected by the Federal Confidentiality of Alcohol and Drug Abuse Patient Records regulations: The Federal rules restrict any use of the information to criminally investigate or prosecute any alcohol or drug abuse patient.[facility] HealthcareIn the event this information is protected by the Federal Confidentiality of Alcohol and Drug Abuse Patient Records regulations: The Federal rules restrict any use of the information to criminally investigate or prosecute any alcohol or drug abuse patient.[facility] HealthcareIn the event this information is protected by the Federal Confidentiality of Alcohol and Drug Abuse Patient Records regulations: The Federal rules restrict any use of the information to criminally investigate or prosecute any alcohol or drug abuse patient.[facility] HealthcareIn the event this information is protected by the Federal Confidentiality of Alcohol and Drug Abuse Patient Records regulations: The Federal rules restrict any use of the information to criminally investigate or prosecute any alcohol or drug abuse patient.[facility] HealthcareIn the event this information is protected by the Federal Confidentiality of Alcohol and Drug Abuse Patient Records regulations: The Federal rules restrict any use of the information to criminally investigate or prosecute any alcohol or drug abuse patient.[facility] HealthcareIn the event this information is protected by the Federal Confidentiality of Alcohol and Drug Abuse Patient Records regulations: The Federal rules restrict any use of the information to criminally investigate or prosecute any alcohol or drug abuse patient.[facility] HealthcareIn the event this information is protected by the Federal Confidentiality of Alcohol and Drug Abuse Patient Records regulations: The Federal rules restrict any use of the information to criminally investigate or prosecute any alcohol or drug abuse patient.[facility] HealthcareIn the event this information is protected by the Federal Confidentiality of Alcohol and Drug Abuse Patient Records regulations: The Federal rules restrict any use of the information to criminally investigate or prosecute any alcohol or drug abuse patient.[facility] HealthcareIn the event this information is protected by the Federal Confidentiality of Alcohol and Drug Abuse Patient Records regulations: The Federal rules restrict any use of the information to criminally investigate or prosecute any alcohol or drug abuse patient.[facility] HealthcareIn the event this information is protected by the Federal Confidentiality of Alcohol and Drug Abuse Patient Records regulations: The Federal rules restrict any use of the information to criminally investigate or prosecute any alcohol or drug abuse patient.[facility] HealthcareIn the event this information is protected by the Federal Confidentiality of Alcohol and Drug Abuse Patient Records regulations: The Federal rules restrict any use of the information to criminally investigate or prosecute any alcohol or drug abuse patient.[facility] HealthcareIn the event this information is protected by the Federal Confidentiality of Alcohol and Drug Abuse Patient Records regulations: The Federal rules restrict any use of the information to criminally investigate or prosecute any alcohol or drug abuse patient.[facility] HealthcareIn the event this information is protected by the Federal Confidentiality of Alcohol and Drug Abuse Patient Records regulations: The Federal rules restrict any use of the information to criminally investigate or prosecute any alcohol or drug abuse patient.[facility] HealthcareIn the event this information is protected by the Federal Confidentiality of Alcohol and Drug Abuse Patient Records regulations: The Federal rules restrict any use of the information to criminally investigate or prosecute any alcohol or drug abuse patient.[facility] HealthcareIn the event this information is protected by the Federal Confidentiality of Alcohol and Drug Abuse Patient Records regulations: The Federal rules restrict any use of the information to criminally investigate or prosecute any alcohol or drug abuse patient.[facility] HealthcareIn the event this information is protected by the Federal Confidentiality of Alcohol and Drug Abuse Patient Records regulations: The Federal rules restrict any use of the information to criminally investigate or prosecute any alcohol or drug abuse patient.[facility] HealthcareIn the event this information is protected by the Federal Confidentiality of Alcohol and Drug Abuse Patient Records regulations: The Federal rules restrict any use of the information to criminally investigate or prosecute any alcohol or drug abuse patient.[facility] HealthcareIn the event this information is protected by the Federal Confidentiality of Alcohol and Drug Abuse Patient Records regulations: The Federal rules restrict any use of the information to criminally investigate or prosecute any alcohol or drug abuse patient.[facility] HealthcareIn the event this information is protected by the Federal Confidentiality of Alcohol and Drug Abuse Patient Records regulations: The Federal rules restrict any use of the information to criminally investigate or prosecute any alcohol or drug abuse patient.[facility] HealthcareIn the event this information is protected by the Federal Confidentiality of Alcohol and Drug Abuse Patient Records regulations: The Federal rules restrict any use of the information to criminally investigate or prosecute any alcohol or drug abuse patient.[facility] HealthcareIn the event this information is protected by the Federal Confidentiality of Alcohol and Drug Abuse Patient Records regulations: The Federal rules restrict any use of the information to criminally investigate or prosecute any alcohol or drug abuse patient.[facility] HealthcareIn the event this information is protected by the Federal Confidentiality of Alcohol and Drug Abuse Patient Records regulations: The Federal rules restrict any use of the information to criminally investigate or prosecute any alcohol or drug abuse patient.[facility] HealthcareIn the event this information is protected by the Federal Confidentiality of Alcohol and Drug Abuse Patient Records regulations: The Federal rules restrict any use of the information to criminally investigate or prosecute any alcohol or drug abuse patient.[facility] HealthcareIn the event this information is protected by the Federal Confidentiality of Alcohol and Drug Abuse Patient Records regulations: The Federal rules restrict any use of the information to criminally investigate or prosecute any alcohol or drug abuse patient.[facility] HealthcareIn the event this information is protected by the Federal Confidentiality of Alcohol and Drug Abuse Patient Records regulations: The Federal rules restrict any use of the information to criminally investigate or prosecute any alcohol or drug abuse patient.[facility] HealthcareIn the event this information is protected by the Federal Confidentiality of Alcohol and Drug Abuse Patient Records regulations: The Federal rules restrict any use of the information to criminally investigate or prosecute any alcohol or drug abuse patient.[facility] HealthcareIn the event this information is protected by the Federal Confidentiality of Alcohol and Drug Abuse Patient Records regulations: The Federal rules restrict any use of the information to criminally investigate or prosecute any alcohol or drug abuse patient.[facility] HealthcareIn the event this information is protected by the Federal Confidentiality of Alcohol and Drug Abuse Patient Records regulations: The Federal rules restrict any use of the information to criminally investigate or prosecute any alcohol or drug abuse patient.[facility] HealthcareIn the event this information is protected by the Federal Confidentiality of Alcohol and Drug Abuse Patient Records regulations: The Federal rules restrict any use of the information to criminally investigate or prosecute any alcohol or drug abuse patient.[facility] HealthcareIn the event this information is protected by the Federal Confidentiality of Alcohol and Drug Abuse Patient Records regulations: The Federal rules restrict any use of the information to criminally investigate or prosecute any alcohol or drug abuse patient.[facility] HealthcareIn the event this information is protected by the Federal Confidentiality of Alcohol and Drug Abuse Patient Records regulations: The Federal rules restrict any use of the information to criminally investigate or prosecute any alcohol or drug abuse patient.[facility] HealthcareIn the event this information is protected by the Federal Confidentiality of Alcohol and Drug Abuse Patient Records regulations: The Federal rules restrict any use of the information to criminally investigate or prosecute any alcohol or drug abuse patient.[facility] HealthcareIn the event this information is protected by the Federal Confidentiality of Alcohol and Drug Abuse Patient Records regulations: The Federal rules restrict any use of the information to criminally investigate or prosecute any alcohol or drug abuse patient.[facility] HealthcareIn the event this information is protected by the Federal Confidentiality of Alcohol and Drug Abuse Patient Records regulations: The Federal rules restrict any use of the information to criminally investigate or prosecute any alcohol or drug abuse patient.[facility] HealthcareIn the event this information is protected by the Federal Confidentiality of Alcohol and Drug Abuse Patient Records regulations: The Federal rules restrict any use of the information to criminally investigate or prosecute any alcohol or drug abuse patient.[facility] HealthcareIn the event this information is protected by the Federal Confidentiality of Alcohol and Drug Abuse Patient Records regulations: The Federal rules restrict any use of the information to criminally investigate or prosecute any alcohol or drug abuse patient.[facility] HealthcareIn the event this information is protected by the Federal Confidentiality of Alcohol and Drug Abuse Patient Records regulations: The Federal rules restrict any use of the information to criminally investigate or prosecute any alcohol or drug abuse patient.[facility] HealthcareIn the event this information is protected by the Federal Confidentiality of Alcohol and Drug Abuse Patient Records regulations: The Federal rules restrict any use of the information to criminally investigate or prosecute any alcohol or drug abuse patient.[facility] HealthcareIn the event this information is protected by the Federal Confidentiality of Alcohol and Drug Abuse Patient Records regulations: The Federal rules restrict any use of the information to criminally investigate or prosecute any alcohol or drug abuse patient.[facility] HealthcareIn the event this information is protected by the Federal Confidentiality of Alcohol and Drug Abuse Patient Records regulations: The Federal rules restrict any use of the information to criminally investigate or prosecute any alcohol or drug abuse patient.[facility] HealthcareIn the event this information is protected by the Federal Confidentiality of Alcohol and Drug Abuse Patient Records regulations: The Federal rules restrict any use of the information to criminally investigate or prosecute any alcohol or drug abuse patient.[facility] HealthcareIn the event this information is protected by the Federal Confidentiality of Alcohol and Drug Abuse Patient Records regulations: The Federal rules restrict any use of the information to criminally investigate or prosecute any alcohol or drug abuse patient.[facility] HealthcareIn the event this information is protected by the Federal Confidentiality of Alcohol and Drug Abuse Patient Records regulations: The Federal rules restrict any use of the information to criminally investigate or prosecute any alcohol or drug abuse patient.[facility] HealthcareIn the event this information is protected by the Federal Confidentiality of Alcohol and Drug Abuse Patient Records regulations: The Federal rules restrict any use of the information to criminally investigate or prosecute any alcohol or drug abuse patient.[facility] HealthcareIn the event this information is protected by the Federal Confidentiality of Alcohol and Drug Abuse Patient Records regulations: The Federal rules restrict any use of the information to criminally investigate or prosecute any alcohol or drug abuse patient.[facility] HealthcareIn the event this information is protected by the Federal Confidentiality of Alcohol and Drug Abuse Patient Records regulations: The Federal rules restrict any use of the information to criminally investigate or prosecute any alcohol or drug abuse patient.[facility] HealthcareIn the event this information is protected by the Federal Confidentiality of Alcohol and Drug Abuse Patient Records regulations: The Federal rules restrict any use of the information to criminally investigate or prosecute any alcohol or drug abuse patient.[facility] HealthcareIn the event this information is protected by the Federal Confidentiality of Alcohol and Drug Abuse Patient Records regulations: The Federal rules restrict any use of the information to criminally investigate or prosecute any alcohol or drug abuse patient.[facility] HealthcareIn the event this information is protected by the Federal Confidentiality of Alcohol and Drug Abuse Patient Records regulations: The Federal rules restrict any use of the information to criminally investigate or prosecute any alcohol or drug abuse patient.[facility] HealthcareIn the event this information is protected by the Federal Confidentiality of Alcohol and Drug Abuse Patient Records regulations: The Federal rules restrict any use of the information to criminally investigate or prosecute any alcohol or drug abuse patient.[facility] HealthcareIn the event this information is protected by the Federal Confidentiality of Alcohol and Drug Abuse Patient Records regulations: The Federal rules restrict any use of the information to criminally investigate or prosecute any alcohol or drug abuse patient.[facility] HealthcareIn the event this information is protected by the Federal Confidentiality of Alcohol and Drug Abuse Patient Records regulations: The Federal rules restrict any use of the information to criminally investigate or prosecute any alcohol or drug abuse patient.[facility] HealthcareIn the event this information is protected by the Federal Confidentiality of Alcohol and Drug Abuse Patient Records regulations: The Federal rules restrict any use of the information to criminally investigate or prosecute any alcohol or drug abuse patient.[facility] HealthcareIn the event this information is protected by the Federal Confidentiality of Alcohol and Drug Abuse Patient Records regulations: The Federal rules restrict any use of the information to criminally investigate or prosecute any alcohol or drug abuse patient.[facility] HealthcareIn the event this information is protected by the Federal Confidentiality of Alcohol and Drug Abuse Patient Records regulations: The Federal rules restrict any use of the information to criminally investigate or prosecute any alcohol or drug abuse patient.[facility] HealthcareIn the event this information is protected by the Federal Confidentiality of Alcohol and Drug Abuse Patient Records regulations: The Federal rules restrict any use of the information to criminally investigate or prosecute any alcohol or drug abuse patient.[facility] HealthcareIn the event this information is protected by the Federal Confidentiality of Alcohol and Drug Abuse Patient Records regulations: The Federal rules restrict any use of the information to criminally investigate or prosecute any alcohol or drug abuse patient.[facility] HealthcareIn the event this information is protected by the Federal Confidentiality of Alcohol and Drug Abuse Patient Records regulations: The Federal rules restrict any use of the information to criminally investigate or prosecute any alcohol or drug abuse patient.[facility] HealthcareIn the event this information is protected by the Federal Confidentiality of Alcohol and Drug Abuse Patient Records regulations: The Federal rules restrict any use of the information to criminally investigate or prosecute any alcohol or drug abuse patient.[facility] HealthcareIn the event this information is protected by the Federal Confidentiality of Alcohol and Drug Abuse Patient Records regulations: The Federal rules restrict any use of the information to criminally investigate or prosecute any alcohol or drug abuse patient.[facility] HealthcareIn the event this information is protected by the Federal Confidentiality of Alcohol and Drug Abuse Patient Records regulations: The Federal rules restrict any use of the information to criminally investigate or prosecute any alcohol or drug abuse patient.[facility] HealthcareIn the event this information is protected by the Federal Confidentiality of Alcohol and Drug Abuse Patient Records regulations: The Federal rules restrict any use of the information to criminally investigate or prosecute any alcohol or drug abuse patient.[facility] HealthcareIn the event this information is protected by the Federal Confidentiality of Alcohol and Drug Abuse Patient Records regulations: The Federal rules restrict any use of the information to criminally investigate or prosecute any alcohol or drug abuse patient.[facility] HealthcareIn the event this information is protected by the Federal Confidentiality of Alcohol and Drug Abuse Patient Records regulations: The Federal rules restrict any use of the information to criminally investigate or prosecute any alcohol or drug abuse patient.[facility] HealthcareIn the event this information is protected by the Federal Confidentiality of Alcohol and Drug Abuse Patient Records regulations: The Federal rules restrict any use of the information to criminally investigate or prosecute any alcohol or drug abuse patient.[facility] HealthcareIn the event this information is protected by the Federal Confidentiality of Alcohol and Drug Abuse Patient Records regulations: The Federal rules restrict any use of the information to criminally investigate or prosecute any alcohol or drug abuse patient.[facility] HealthcareIn the event this information is protected by the Federal Confidentiality of Alcohol and Drug Abuse Patient Records regulations: The Federal rules restrict any use of the information to criminally investigate or prosecute any alcohol or drug abuse patient.[facility] HealthcareIn the event this information is protected by the Federal Confidentiality of Alcohol and Drug Abuse Patient Records regulations: The Federal rules restrict any use of the information to criminally investigate or prosecute any alcohol or drug abuse patient.[facility] HealthcareIn the event this information is protected by the Federal Confidentiality of Alcohol and Drug Abuse Patient Records regulations: The Federal rules restrict any use of the information to criminally investigate or prosecute any alcohol or drug abuse patient.[facility] HealthcareIn the event this information is protected by the Federal Confidentiality of Alcohol and Drug Abuse Patient Records regulations: The Federal rules restrict any use of the information to criminally investigate or prosecute any alcohol or drug abuse patient.[facility] HealthcareIn the event this information is protected by the Federal Confidentiality of Alcohol and Drug Abuse Patient Records regulations: The Federal rules restrict any use of the information to criminally investigate or prosecute any alcohol or drug abuse patient.[facility] HealthcareIn the event this information is protected by the Federal Confidentiality of Alcohol and Drug Abuse Patient Records regulations: The Federal rules restrict any use of the information to criminally investigate or prosecute any alcohol or drug abuse patient.[facility] HealthcareIn the event this information is protected by the Federal Confidentiality of Alcohol and Drug Abuse Patient Records regulations: The Federal rules restrict any use of the information to criminally investigate or prosecute any alcohol or drug abuse patient.[facility] HealthcareIn the event this information is protected by the Federal Confidentiality of Alcohol and Drug Abuse Patient Records regulations: The Federal rules restrict any use of the information to criminally investigate or prosecute any alcohol or drug abuse patient.[facility] HealthcareIn the event this information is protected by the Federal Confidentiality of Alcohol and Drug Abuse Patient Records regulations: The Federal rules restrict any use of the information to criminally investigate or prosecute any alcohol or drug abuse patient.[facility] HealthcareIn the event this information is protected by the Federal Confidentiality of Alcohol and Drug Abuse Patient Records regulations: The Federal rules restrict any use of the information to criminally investigate or prosecute any alcohol or drug abuse patient.[facility] HealthcareIn the event this information is protected by the Federal Confidentiality of Alcohol and Drug Abuse Patient Records regulations: The Federal rules restrict any use of the information to criminally investigate or prosecute any alcohol or drug abuse patient.[facility] HealthcareIn the event this information is protected by the Federal Confidentiality of Alcohol and Drug Abuse Patient Records regulations: The Federal rules restrict any use of the information to criminally investigate or prosecute any alcohol or drug abuse patient.[facility] HealthcareIn the event this information is protected by the Federal Confidentiality of Alcohol and Drug Abuse Patient Records regulations: The Federal rules restrict any use of the information to criminally investigate or prosecute any alcohol or drug abuse patient.[facility] HealthcareIn the event this information is protected by the Federal Confidentiality of Alcohol and Drug Abuse Patient Records regulations: The Federal rules restrict any use of the information to criminally investigate or prosecute any alcohol or drug abuse patient.[facility] HealthcareIn the event this information is protected by the Federal Confidentiality of Alcohol and Drug Abuse Patient Records regulations: The Federal rules restrict any use of the information to criminally investigate or prosecute any alcohol or drug abuse patient.[facility] HealthcareIn the event this information is protected by the Federal Confidentiality of Alcohol and Drug Abuse Patient Records regulations: The Federal rules restrict any use of the information to criminally investigate or prosecute any alcohol or drug abuse patient.[facility] HealthcareIn the event this information is protected by the Federal Confidentiality of Alcohol and Drug Abuse Patient Records regulations: The Federal rules restrict any use of the information to criminally investigate or prosecute any alcohol or drug abuse patient.[facility]red HealthcareIn the event this information is protected by the Federal Confidentiality of Alcohol and Drug Abuse Patient Records regulations: The Federal rules restrict any use of the information to criminally investigate or prosecute any alcohol or drug abuse patient.[facility] HealthcareIn the event this information is protected by the Federal Confidentiality of Alcohol and Drug Abuse Patient Records regulations: The Federal rules restrict any use of the information to criminally investigate or prosecute any alcohol or drug abuse patient.[facility] HealthcareIn the event this information is protected by the Federal Confidentiality of Alcohol and Drug Abuse Patient Records regulations: The Federal rules restrict any use of the information to criminally investigate or prosecute any alcohol or drug abuse patient.[facility] HealthcareIn the event this information is protected by the Federal Confidentiality of Alcohol and Drug Abuse Patient Records regulations: The Federal rules restrict any use of the information to criminally investigate or prosecute any alcohol or drug abuse patient.[facility] HealthcareIn the event this information is protected by the Federal Confidentiality of Alcohol and Drug Abuse Patient Records regulations: The Federal rules restrict any use of the information to criminally investigate or prosecute any alcohol or drug abuse patient.[facility] HealthcareIn the event this information is protected by the Federal Confidentiality of Alcohol and Drug Abuse Patient Records regulations: The Federal rules restrict any use of the information to criminally investigate or prosecute any alcohol or drug abuse patient.[facility] HealthcareIn the event this information is protected by the Federal Confidentiality of Alcohol and Drug Abuse Patient Records regulations: The Federal rules restrict any use of the information to criminally investigate or prosecute any alcohol or drug abuse patient.[facility]red HealthcareIn the event this information is protected by the Federal Confidentiality of Alcohol and Drug Abuse Patient Records regulations: The Federal rules restrict any use of the information to criminally investigate or prosecute any alcohol or drug abuse patient.[facility] HealthcareIn the event this information is protected by the Federal Confidentiality of Alcohol and Drug Abuse Patient Records regulations: The Federal rules restrict any use of the information to criminally investigate or prosecute any alcohol or drug abuse patient.[facility] HealthcareIn the event this information is protected by the Federal Confidentiality of Alcohol and Drug Abuse Patient Records regulations: The Federal rules restrict any use of the information to criminally investigate or prosecute any alcohol or drug abuse patient.[facility] Reason for Visit (unrecogniz ed section and content) Reason Onset Date Comments Community Monitoring Outreach 01/21/2022 CD M Outreach Reason Onset Date Comments Community Monitoring Outreach 02/04/2022 [place] CDM Outreach Reason Onset Date Comments Community Monitoring Outreach 02/28/2022 [place] CDM Outreach Reason Onset Date Comments Refill Request 03/21/2022 Reason Onset Date Comments Community Monitoring Outreach 04/04/2022 Ch maribeth Bronchitis CDM Outreach Reason Onset Date Comments [...] Monitoring Outreach 06/18/2024 Reason Onset Date Comments M 07/10/2024 Telephonic Outre ach Reason Onset Date Comments CD 07/11/2024 Telephonic Outre ach Reason Onset Date Comments Refill Request 07/22/2024 Reason Onset Date Comments [facility] 07/24/2024 Chronic Disease Management Routine Call Reason Comments "severe cramping in my sides now and aga in" Reason Onset Date Comments CDM 08/21/2024 Chronic Disease Management Routine Call Reason [...] jordan Specialty Diagnoses / Procedures Referred By Dominog main Referred To Contact Orthopedics Diagnoses Acute right hip pain Procedures OFFICE/OUTPATIENT [facility] 60 MINUTES Blanca Tilley M, MELT SUPERVISOR.ELEVATOR STARTER [address] [place] [address] Phone: tel: fax: Referral ID Status Reason Start Date Expiration Date V isits Requested Visits Authorized [id number] Closed PCP Requested Referral 07/07/2025 07/07/2026 1 1 Care Teams (unrecognized sec tion and content) Team Status: Active Member Role Status Dates Dr. George Vázquez MD Primary Care Provider Active Team Status: Active Member Role Status Dates Dr. George Vázquez MD Primary Care Provider Active Start: October 27, 2024 Dr. Praveen Ruiz DO Emergency Provider Active Start: October 27, 2024 Dr. Vicente Andrews , Attending Provider Active Start: October 27, 2024 [...] 2024 End: November 05, 2024 Radha Roberts CAUL FAT PULLER, CAUL FAT PULLER-C Attending Provider Active Start: November 05, 2024 End: November 05, 2024 Radha Roberts CAUL FAT PULLER, CAUL FAT PULLER-C Referring Provider Active Start: November 05, 2024 [...] 2024 End: November 06, 2024 Radha Roberts CAUL FAT PULLER, CAUL FAT PULLER-C Attending Provider Active Start: November 06, 2024 End: November 06, 2024 Radha Roberts CAUL FAT PULLER, CAUL FAT PULLER-C Referring Provider Active Start: November 06, 2024 End: November 06, 2024 Dr. Carrillo Malave MD Other Provider Active St art: November 06, 2024 End: November 06, 2024 Team Status: Active Member Role Status Dates Dr. George Vázquez MD Primary Care Provider Active Start: November 11, 2024 Radha Roberts CAUL FAT PULLER, CAUL FAT PULLER-C Referring Provider Active Start: November 11, 2024 Radha Roberts CAUL FAT PULLER, CAUL FAT PULLER-C Other Provider Active Start: November 11, 2024 [...] 27, 2024 End: November 27, 2024 Dr. Npetali Orellana MD Referring Provider Active Start: November [...] Active Start: February 05, 2025 Dr. Salvador wKok MD Attending Provider Active S tart: February 05, 2025 Laboratory Assistant Relationship Specialty Start Date End Date George Vázquez MD [address] [place], [place] [id number] PCP - General Internal Medicine 05/08/12 Josh Reveles, frozen food department managerBranch Coordinator Internal Medicine 02/10/21 Juventino Ulrich MD [address] [place] [address] Primary Staff Physician Cardiology 11/08/21 Laboratory Assistant Relationship Specialty Start Date End Date George Vázquez MD [address] [place], [place] [address] PCP - General Internal Medicine 05/08/12 Darlyn, Moreno M, frozen food department managerBranch Coordinator Internal Medicine 02/10/21 Juventino Ulrich MD [address] [place], [place] [id number] Primary Staff Physician Cardiology 11/08/21 Laboratory Assistant Relationship Specialty Start Date End Date George Vázquez MD [address] [place], [place] [address] PCP - General Internal Medicine 05/08/12 Josh Reveles, frozen food department managerBranch Coordinator Internal Medicine 02/10/21 Juventino Ulrich MD [address] [place] [address] Primary Staff Physician Cardiology 11/08/21 Laboratory Assistant Relationship Specialty Start Date End Date George Vázquez MD [facility] [place], [place] [address] PCP - General Internal Medicine 05/08/12 Josh Reveles, frozen food department managerBranch Coordinator Internal Medicine 02/10/21 Juventino Ulrich MD [address] [place] [address] Primary Staff Physician Cardiology 11/08/21 Laboratory Assistant Relationship Specialty Start Date End Date George Vázquez MD [address] [place] [address] PCP - General Internal Medicine 05/08/12 Josh Reveles, frozen food department managerBranch Coordinator Internal Medicine 02/10/21 Juventino Ulrich MD [address] [place], [place] [id number] Primary Staff Physician Cardiology 11/08/21 Laboratory Assistant Relationship Specialty Start Date End Date George Vázquez MD [address] [place], [place] [id number] PCP - General Internal Medicine 05/08/12 Josh Reveles, frozen food department managerBranch Coordinator Internal Medicine 02/10/21 Juventino Ulrich MD [address] [place], [place] [id number] Primary Staff Physician Cardiology 11/08/21 Laboratory Assistant Relationship Specialty Start Date End Date George Vázquez MD [address] [place], [place] [id number] PCP - General Internal Medicine 05/08/12 Josh Reveles, frozen food department managerBranch Coordinator Internal Medicine 02/10/21 Juventino Ulrich MD [address] [place] [address] Primary Staff Physician Cardiology 11/08/21 Laboratory Assistant Relationship Specialty Start Date End Date George Vázquez MD [address] [place], [place] [address] PCP - General Internal Medicine 05/08/12 Josh Reveles, frozen food department managerBranch Coordinator Internal Medicine 02/10/21 Juventino Ulrich MD [address] [place], [place] [id number] Primary Staff Physician Cardiology 11/08/21 Laboratory Assistant Relationship Specialty Start Date End Date George Vázquez MD [address] [place] [address] PCP - General Internal Medicine 05/08/12 Josh Reveles, frozen food department managerBranch Coordinator Internal Medicine 02/10/21 Juventino Ulrich MD [address] [place] [address] Primary Staff Physician Cardiology 11/08/21 Laboratory Assistant Relationship Specialty Start Date End Date George Vázquez MD [address] [place], [place] [address]241 PCP - General Internal Medicine 05/08/12 Josh Reveles, frozen food department managerBranch Coordinator Internal Medicine 02/10/21 Juventino Ulrich MD [address] [place], [place] [id number] Primary Staff Physician Cardiology 11/08/21 Laboratory Assistant Relationship Specialty Start Date End Date George Vázquez MD [address] [place], [place] [address] PCP - General Internal Medicine 05/08/12 Darlyn Moreno, frozen food department managerBranch Coordinator Internal Medicine 02/10/21 Juventino Ulrich MD [address] [place], [place] [id number] Primary Staff Physician Cardiology 11/08/21 Laboratory Assistant Relationship Specialty Start Date End Date George Vázquez MD [address] [place], [place] [address] PCP - General Internal Medicine 05/08/12 Darlyn Moreno, frozen food department managerBranch Coordinator Internal Medicine 02/10/21 Juventino Ulrich MD [address] [place], [place] [address] Primary Staff Physician Cardiology 11/08/21 Laboratory Assistant Relationship Specialty Start Date End Date George Vázquez MD [address] [place] [address] PCP - General Internal Medicine 05/08/12 Darlyn Moreno, frozen food department managerBranch Coordinator Internal Medicine 02/10/21 Juventino Ulrich MD [address] [place], [place] [id number] Primary Staff Physician Cardiology 11/08/21 Laboratory Assistant Relationship Specialty Start Date End Date George Vázquez MD [address] [place], [place] [id number] PCP - General Internal Medicine 05/08/12 Darlyn Moreno, frozen food department managerBranch Coordinator Internal Medicine 02/10/21 Juventino Ulrich MD [address] [place] [address] Primary Staff Physician Cardiology 11/08/21 Laboratory Assistant Relationship Specialty Start Date End Date George Vázquez MD [address] [place], [place] [address] PCP - General Internal Medicine 05/08/12 Darlyn Moreno, frozen food department managerBranch Coordinator Internal Medicine 02/10/21 Juventino Ulrich MD [address] [place] [address] Primary Staff Physician Cardiology 11/08/21 Team Status: Active Member Role Status Dates Dr. George Vázquez MD Family Provider Active Dr. George Vázquez MD Primary Care Provider Active Team Status: Inactive Member Role Status Dates Dr. George Vázquez MD Primary Care Provider, Refer ring Provider Active Cristiane Serna CAUL FAT PULLER, CAUL FAT PULLER-C Attending Provider Active Team Status: Active Member Role Status Dates Dr. George Vázquez MD Primary Care Provider Active Pablo Whitney MD Emergency Provider Active Dr. Judy Henriquez MD Admit Provider, Other Provider Active Dr. Ling Betancur DO Attending Provider, Other Provide r Active Team Status: Inactive Member Role Status Dates Dr. George Vázquez MD Primary Care Provider, Refer ring Provider Active Radha Roberts CAUL FAT PULLER, CAUL FAT PULLER-C Attending Provider Active Team Status: Inactive Member [...] MD Primary Care Provider Active Cristiane Serna CAUL FAT PULLER, CAUL FAT PULLER-C Attending Provider, Referrin g Provider Active Team Status: Inactive Member Role Status Dates Dr. George Vázquez MD Primary Care Provider Active Radha Roberts CAUL FAT PULLER, CAUL FAT PULLER-C Attending Provider Active Team Status: Inactive Member [...] MD Primary Care Provider Active Radha Roberts CAUL FAT PULLER, CAUL FAT PULLER-C Attending Provider, Referrin g Provider Active Laboratory Assistant Relationship Specialty Start Date End Date George Vázquez MD [address] [place], [place] [address] PCP - General Internal Medicine 05/08/12 Darlyn Moreno, frozen food department managerBranch Coordinator Internal Medicine 02/10/21 Juventino Ulrich MD [address] [place] [address] Primary Staff Physician Cardiology 11/08/21 Laboratory Assistant Relationship Specialty Start Date End Date George Vázquez MD [address] [place], [place] [address] PCP - General Internal Medicine 05/08/12 Darlyn Moreno RN Branch Coordinator Internal Medicine 02/10/21 Juventino Ulrich MD [address] [place] [address] Primary Staff Physician Cardiology 11/08/21 Team Status: [...] Inactive Member Role Status Dates Dr. George Vázuqez MD Primary Care Provider Active Dr. Aleksey Javier DO Attending Provider Active Cristiane Serna CAUL FAT PULLER, CAUL FAT PULLER-C Referring Provider Active Team Status: Inactive Member [...] MD Primary Care Provider Active Radha Roberts CAUL FAT PULLER, CAUL FAT PULLER-C Referring Provider, Other Pr ovider Active Dr. Tevin Nelson DO Attending Provider Active Laboratory Assistant Relationship Specialty Start Date End Date George Vázquez MD [address] [place] [address] PCP - General Internal Medicine 05/08/12 Darlyn Moreon frozen food department managerBranch Coordinator Internal Medicine 02/10/21 Juventino Ulrich MD [address] [place], [place] [id number] Primary Staff Physician Cardiology 11/08/21 Team Status: Active Member Role Status Dates Dr. George Vázquez MD Primary Care Provider Active Amada DURAN, PA Referring Provider, Other Provider Active Dr. Kal Bartholomew MD Attending Provider Active Team Status: Inactive Member Role Status Dates Dr. George Vázquez MD Primary Care Provider Active Amada DURAN, PA Attending Provider, Referr ing Provider Active Laboratory Assistant Relationship Specialty Start Date End Date George Vázquez MD [address] [place] [address] PCP - General Internal Medicine 05/08/12 Darlyn Moreno RN Branch Coordinator Internal Medicine 02/10/21 Juventino Ulrich MD [address] [place], [place] [id number] Primary Staff Physician Cardiology 11/08/21 Laboratory Assistant Relationship Specialty Start Date End Date George Vázquez MD [address] [place] [address] PCP - General Internal Medicine 05/08/12 Darlyn Moreno RN Branch Coordinator Internal Medicine 02/10/21 Juventino Ulrich MD [address] [place], [place] [id number] Primary Staff Physician Cardiology 11/08/21 Team Status: Inactive Member Role Status Dates Dr. George Vázquez MD Primary Care Provider, Refer ring Provider Active Raciel DURAN, PA Attending Provider Active Team Status: Inactive Member Role Status Dates Dr. George Vázquez MD Primary Care Provider Active Radha Roberts CAUL FAT PULLER, CAUL FAT PULLER-C Attending Provider, Veronica garvey Provider Active Gloria Cochran CAUL FAT PULLER, CAUL FAT PULLER-C Other Provider Active Laboratory Assistant Relationship Specialty Start Date End Date George Vázquez MD [address] [place] [address] PCP - General Internal Medicine 05/08/12 Darlyn Moreno, frozen food department managerBranch Coordinator Internal Medicine 02/10/21 Juventino Ulrihc MD [address] [place] [address] Primary Staff Physician Cardiology 11/08/21 Laboratory Assistant Relationship Specialty Start Date End Date George Vázquez MD [address] [place] [address] PCP - General Internal Medicine 05/08/12 Darlyn Moreno, frozen food department managerBranch Coordinator Internal Medicine 02/10/21 Juventino Ulrich MD [address] [place] [address] Primary Staff Physician Cardiology 11/08/21 Laboratory Assistant Relationship Specialty Start Date End Date George Vázquez MD [address] [place] [address] PCP - General Internal Medicine 05/08/12 Darlyn Moreno frozen food department managerBranch Coordinator Internal Medicine 02/10/21 Juventino Ulrich MD [address] [place] [address] Primary Staff Physician Cardiology 11/08/21 Laboratory Assistant Relationship Specialty Start Date End Date George Vázquez MD [address] [place] [address] PCP - General Internal Medicine 05/08/12 Darlyn Moreno, frozen food department managerBranch Coordinator Internal Medicine 02/10/21 Juventino Ulrich MD [address] [place], [place] [id number] Primary Staff Physician Cardiology 11/08/21 Laboratory Assistant Relationship Specialty Start Date End Date George Vázquez MD [address] [place] [address] PCP - General Internal Medicine 05/08/12 Darlyn Moreno, frozen food department managerBranch Coordinator Internal Medicine 02/10/21 Juventino Ulrich MD [address] [place] [address] Primary Staff Physician Cardiology 11/08/21 Team Status: Inactive Member Role Status Dates Dr. George Vázquez MD Primary Care Provider, Refer ring Provider Active Dr. Farooq Hall MD Attending Provider Active Team Status: Active Member Role Status Dates Dr. George Vázquez MD Primary Care Provider Active Dr. Kal Bartholomew MD Attending Provider Active Laboratory Assistant Relationship Specialty Start Date End Date George Vázquez MD [address] [place] [address] PCP - General Internal Medicine 05/08/12 Darlyn Moreno, frozen food department managerBranch Coordinator Internal Medicine 02/10/21 Juventino Ulrich MD [address] [place], [place] [address] Primary Staff Physician Cardiology 11/08/21 Laboratory Assistant Relationship Specialty Start Date End Date George Vázquez MD [address] [place] [address] PCP - General Internal Medicine 05/08/12 Darlyn Moreno, frozen food department managerBranch Coordinator Internal Medicine 02/10/21 Juventino Ulrich MD [address] [place] [address] Primary Staff Physician Cardiology 11/08/21 Laboratory Assistant Relationship Specialty Start Date End Date George Vázquez MD [address] [place] [address] PCP - General Internal Medicine 05/08/12 Darlyn Moreno, frozen food department managerBranch Coordinator Internal Medicine 02/10/21 Juventino Ulrich MD [address] [place], [place] [id number] Primary Staff Physician Cardiology 11/08/21 Laboratory Assistant Relationship Specialty Start Date End Date George Vázquez MD [address] [place] [address] PCP - General Internal Medicine 05/08/12 Darlyn Moreno frozen food department managerBranch Coordinator Internal Medicine 02/10/21 Juventino Ulrich MD [address] [place] [address] Primary Staff Physician Cardiology 11/08/21 Laboratory Assistant Relationship Specialty Start Date End Date George Vázquez MD [address] [place] [address] PCP - General Internal Medicine 05/08/12 Darlyn Moreno, frozen food department managerBranch Coordinator Internal Medicine 02/10/21 Juventino Ulrich MD [address] [place], [place] [id number] Primary Staff Physician Cardiology 11/08/21 Laboratory Assistant Relationship Specialty Start Date End Date George Vázquez MD [address] [place] [address] PCP - General Internal Medicine 05/08/12 Darlyn Moreno RN Branch Coordinator Internal Medicine 02/10/21 Juventino Ulrich MD [address] [place] [address] Primary Staff Physician Cardiology 11/08/21 Laboratory Assistant Relationship Specialty Start Date End Date George Vázquez MD [address] [place] [address] PCP - General Internal Medicine 05/08/12 Darlyn Moreno RN Branch Coordinator Internal Medicine 02/10/21 Juventino Ulrich MD [address] [place] [address] Primary Staff Physician Cardiology 11/08/21 Laboratory Assistant Relationship Specialty Start Date End Date George Vázquez MD [address] [place] [address] PCP - General Internal Medicine 05/08/12 Darlyn Moreno RN Branch Coordinator Internal Medicine 02/10/21 Juventino Ulrich MD [address] [place] [address] Primary Staff Physician Cardiology 11/08/21 Laboratory Assistant Relationship Specialty Start Date End Date George Vázquez MD [address] [place] [address] PCP - General Internal Medicine 05/08/12 Laboratory Assistant Relationship Specialty Start Date End Date George Vázquez MD [address] [facility], [place] [address] PCP - General Internal Medicine 05/08/12 Darlyn Moreno, frozen food department managerBranch Coordinator Internal Medicine 02/10/21 Juventino Ulrich MD [address] [place] [address] Primary Staff Physician Cardiology 11/08/21 Laboratory Assistant Relationship Specialty Start Date End Date George Vázquez MD [address] [place] [address] PCP - General Internal Medicine 05/08/12 Darlyn Moreno RN Branch Coordinator Internal Medicine 02/10/21 Juventino Ulrich MD [address] [place] [address] Primary Staff Physician Cardiology 11/08/21 Laboratory Assistant Relationship Specialty Start Date End Date George Vázquez MD [address] [place] [address] PCP - General Internal Medicine 05/08/12 Darlyn Moreno frozen food department managerBranch Coordinator Internal Medicine 02/10/21 Juventino Ulrich MD [address] [place], [place] [id number] Primary Staff Physician Cardiology 11/08/21 Laboratory Assistant Relationship Specialty Start Date End Date George Vázquez MD [address] [place], [place] [address]041 PCP - General Internal Medicine 05/08/12 Darlyn Moreno, frozen food department managerBranch Coordinator Internal Medicine 02/10/21 Juventino Ulrich MD [address] [place] [place], [place] [address] Primary Staff Physician Cardiology 11/08/21 Laboratory Assistant Relationship Specialty Start Date End Date George Vázquez MD [address] [facility] [place] [address] PCP - General Internal Medicine 05/08/12 Darlyn Moreno, frozen food department managerBranch Coordinator Internal Medicine 02/10/21 Juventino Ulrich MD [address] [place] [address] Primary Staff Physician Cardiology 11/08/21 Laboratory Assistant Relationship Specialty Start Date End Date George Vázquez MD [address] [facility] [place] [address] PCP - General Internal Medicine 05/08/12 Darlyn Moreno, frozen food department managerBranch Coordinator Internal Medicine 02/10/21 Juventino Ulrich MD [address] [place], [place] [id number] Primary Staff Physician Cardiology 11/08/21 Laboratory Assistant Relationship Specialty Start Date End Date George Vázquez MD [address] [facility] [place] [address] PCP - General Internal Medicine 05/08/12 Darlyn Moreno, frozen food department managerBranch Coordinator Internal Medicine 02/10/21 Juventino Ulrich MD [address] [facility] [place] [place], [place] [address] Primary Staff Physician Cardiology 11/08/21 Laboratory Assistant Relationship Specialty Start Date End Date George Vázquez MD [address] [place] [address] PCP - General Internal Medicine 05/08/12 Darlyn Moreno, frozen food department managerBranch Coordinator Internal Medicine 02/10/21 Juventino Ulrich MD [address] [place], [place] [id number] Primary Staff Physician Cardiology 11/08/21 Laboratory Assistant Relationship Specialty Start Date End Date George Vázquez MD [address] [place] [address] PCP - General Internal Medicine 05/08/12 Juventino Ulrich MD [address] [place] [address] Primary Staff Physician Cardiology 11/08/21 Blanca Tilley, MELT SUPERVISOR.ELEVATOR STARTER [address] [place] [address] Javascript Ui Developer Internal Medicine 10/07/24 Laboratory Assistant Relationship Specialty Start Date End Date George Vázquez MD [address] [place] [address] PCP - General Internal Medicine 05/08/12 Juventino Ulrich MD [address] [place], [place] [address] Primary Staff Physician Cardiology 11/08/21 Blanca Tilley, MELT SUPERVISOR.ELEVATOR STARTER [address] [place] [address] [facility] Internal Medicine 10/07/24 Laboratory Assistant Relationship Specialty Start Date End Date George Vázquez MD [address] [place], [place] [address] PCP - General Internal Medicine 05/08/12 Juventino Ulrich MD [address] [place] [place], [place] [address] Primary Staff Physician Cardiology 11/08/21 Blanca Tilley, MELT SUPERVISOR.ELEVATOR STARTER [address] [place] [address] [facility] Internal Medicine 10/07/24 Laboratory Assistant Relationship Specialty Start Date End Date George Vázquez MD [address] [place] [address] PCP - General Internal Medicine 05/08/12 Juventino Ulrich MD [address] [place], [place] [id number] Primary Staff Physician Cardiology 11/08/21 Blanca Tilley, MELT SUPERVISOR.ELEVATOR STARTER [address] [place] [address] [facility] Internal Medicine 10/07/24 Team Status: Inactive Member Role Status Dates Dr. George Vázquez MD Primary Care Provider Active Start: September 17, 2024 End: September 17, 2024 Dr. Francisco Murillo MD Attending Provider Active S tart: September 17, 2024 End: September 17, 2024 Dr. Francisco Murillo MD Emergency Provider Active S tart: September 17, 2024 End: September 17, 2024 Laboratory Assistant Relationship Specialty Start Date End Date George Vázquez MD [address] [place] [address] PCP - General Internal Medicine 05/08/12 Juventino Ulrich MD [address] [place] [address] Primary Staff Physician Cardiology 11/08/21 Blanca Tilley, MELT SUPERVISOR.ELEVATOR STARTER [address] [place] [address] Javascript Ui Developer Internal Medicine 10/07/24 Team Status: Active [...] 2025 End: May 05, 2025 Daniel Saeed CAUL FAT PULLER, CAUL FAT PULLER-C Attending Provider Active S tart: May 05, 2025 End: May 05, 2025 Team Status: Inactive Member Role/Relationship Status Dates Dr. George Vázquez MD Primary Care Provider Active Start: May 03, 2025 End: May 03, 2025 RENEE Villagomez Attending Provider Active St art: May 03, 2025 End: May 03, 2025 RENEE Villagomez Referring Provider Active St art: May 03, 2025 End: May 03, 2025 Laboratory Assistant Relationship Specialty Start Date End Date George Vázquez MD [address] [place] [address] PCP - General Internal Medicine 05/08/12 Juventino Ulrich MD [address] [place] [address] Primary Staff Physician Cardiology 11/08/21 Blanca Tilley, MELT SUPERVISOR.ELEVATOR STARTER [address] [place] [address] Javascript Ui Developer Internal Medicine 10/07/24 Team Status: Inactive Member [...] 2025 End: May 05, 2025 Daniel Saeed CAUL FAT PULLER, CAUL FAT PULLER-C Attending Provider Active S tart: May 05, 2025 End: May 05, 2025 Team Status: Inactive Member Role/Relationship Status Dates Dr. George Vázquez MD Primary Care Provider Active Start: June 14, 2025 End: June 14, 2025 Radha Roberts CAUL FAT PULLER, CAUL FAT PULLER-C Attending Provider Active Start: June 14, 2025 End: June 14, 2025 Radha Roberts CAUL FAT PULLER, CAUL FAT PULLER-C Referring Provider Active Start: June 14, 2025 End: June 14, 2025 Laboratory Assistant Relationship Specialty Start Date End Date George Vázquez MD [address] [place] [address] PCP - General Internal Medicine 05/08/12 Ju[facility] [address] [facility] [place], [place] [id number] Primary Staff Physician Cardiology 11/08/21 Blanca Tilley, MELT SUPERVISOR.ELEVATOR STARTER [address] [place] [address] Javascript Ui Developer Internal Medicine 10/07/24 Laboratory Assistant Relationship Specialty Start Date End Date George Vázquez MD [address] [place] [address] PCP - General Internal Medicine 05/08/12 [facility] [address] [facility] [place] [address] Primary Staff Physician Cardiology 11/08/21 Blanca Tilley, MELT SUPERVISOR.ELEVATOR STARTER [address] [place] [address] Javascript Ui Developer Internal Medicine 10/07/24 Laboratory Assistant Relationship Specialty Start Date End Date George Vázquez MD [address] [place] [address] PCP - General Internal Medicine 05/08/12 Juventino Ulrich MD [address] [place] [address] Primary Staff Physician Cardiology 11/08/21 Blanca Tilley, MELT SUPERVISOR.ELEVATOR STARTER [address] [place] [address] [facility] Internal Medicine 10/07/24 Laboratory Assistant Relationship Specialty Start Date End Date George Vázquez MD [address] [place] [address] PCP - General Internal Medicine 05/08/12 Juventino Ulrich MD [address] [place] [address] Primary Staff Physician Cardiology 11/08/21 Blanca Tilley, MELT SUPERVISOR.[facility] [address] [place] [address] [facility] Internal Medicine 10/07/24 Team Status: Active Member [...] 2025 End: May 05, 2025 Daniel Saeed CAUL FAT PULLER, CAUL FAT PULLER-C Attending physician Active Start: May 05, 2025 End: May 05, 2025 Team Status: Inactive Member Role/Relationship Status Dates Dr. George Vázquez MD Primary care physician Activ e Start: June 14, 2025 End: June 14, 2025 Radha Roberts CAUL FAT PULLER, CAUL FAT PULLER-C Attending physician Active Start: June 14, 2025 End: June 14, 2025 Radha Roberts CAUL FAT PULLER, CAUL FAT PULLER-C Referring Provider Active Start: June 14, 2025 [...] BE BASED ON THE PRIMARY CLINICAL RECORDS. [facility] [employer] [facility]. provides no warranty or guarantee of the accuracy or completeness of information in this document.
--- NOTE | 2025-09-21 12:30 | CT_ITS ---
PROCEDURE: CTA CHEST W/WO CONTRAST 09/21/2025 REASON FOR EXAM: PE TECHNIQUE: Procedure Code: [id number] Modality: CT Procedure: CTA CHEST W/WO CONTRAST Multiplanar Sagittal and Coronal images were obtained. One or more dose reduction techniques were used (e.g., Automated exposure control, adjustment of the mA and/or kV according to patient size, use of iterative reconstruction technique). RADIATION DOSE SUMMARY: CTDlvol: 9+ 12 mGy DLP: 475 mGycm COMPARISON: 09/05/2025. FINDINGS: Degenerative changes of the spine. Prior sternotomy. Moderate atherosclerosis. Normal caliber thoracic aorta. Prior coronary artery bypass. No suspicious lymphadenopathy. No pulmonary artery filling defects. The upper abdomen is unremarkable. Moderate centrilobular emphysema. A few scattered bilateral 3 mm or smaller pulmonary nodules which appear similar to the prior CT. CT/CTA Chest W/WO Contrast IMPRESSION: No pulmonary embolism. Stable scattered small bilateral pulmonary nodules measuring 3 mm or less, unch anged from the prior study. Moderate centrilobular emphysema. Postsurgical changes of prior CABG with moderate atherosclerosis. No acute thoracic abnormality. Reading Location: [address]
--- NOTE | 2025-09-21 12:37 | EDS_ITS ---
HPI History of Present Illness Chief Complaint: Shortness of Breath Narrative Narrative: Chief complaint and HPI: 70-year-old male with past medical history of COPD who 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 Rivas presents for evaluation of shortness of breath. History taken by patient as well as discharge summary on 09/13/2025. Patient was admitted for a COPD exacerbation with hypoxia due to Pseudomonas pneumonia. He was treated with antibiotics and steroids. Patient also had dysphagia to solid food. Per discharge summary patient was supposed to be on minced and moist diet with meds crushed in applesauce and reflux precautions. Advised to follow-up outpatient with GI. He also had a echocardiogram with an EF of 65% on 09/05. Patient states he finished all of his antibiotics and steroids since discharge. States he has continued to have shortness of breath, worse with exertion. States that his productive cough did resolve during previous admission. He denies any fever, chills, URI symptoms, chest pain abdominal pain, nausea, vomiting. States at baseline he has mild bilateral lower extremity swelling that is not new. He has yet to follow-up with the boilermaker welder. He has yet to follow-up with GI. He states that he was never placed on a special diet and has not been crushing his pills. Patient is concerned that he never resolved from his pneumonia. Review of systems: See HPI Medications: As listed on the chart Allergies: As listed on the chart PFSH: Per chart Vital signs: As listed on the chart. Reviewed. Physical exam: Gen: A&O x3, NAD Head: Normocephalic, atraumatic Eyes: No sclera icterus, conjunctiva clear ENT: Moist mucous membranes Neck: Trachea midline CV: RRR, no murmurs, mild +1 bilateral lower pitting edema of the ankles and lower calf Resp: Lungs CTA BL, no w/r/c GI: Abd soft, non-distended, non-tender, no r/r/g Musc: Full ROM, no deformity Skin: Warm, dry, psoriasis Neuro: Alert, oriented, grossly intact, sensation intact Psych: Cooperative, appropriate mood and affect [facility] Medical History Essential hypertension Alcohol use History of steroid therapy Arthritis High cholesterol Smoker On home oxygen therapy COPD (chronic obstructive pulmonary disease) Shortness of breath on exertion History of pain when walking Hypertension History of echocardiogram History of stress test Cardiology follow-up encounter Gallstone Nodule of lower lobe of left lung Perforated diverticulum of large intestine Presence of stent in coronary artery (~11/12/21) Easy bruising Excessive bleeding History of ulceration Gastric reflux History of diverticulitis Chronic bronchitis Nicotine dependence Osteoarthritis DDD (degenerative disc disease), lumbar Atherosclerosis of coronary artery of [place] heart without angina pectoris Atherosclerosis of coronary artery bypass graft without angina pectoris Hyperlipidemia Home Medications Medication Instructions Recorded Last Taken Type clopidogrel 75 mg tablet (Plavix) 75 mg PO DAILY anti platelet #90 10/04/21 11/26/22 Rx tabs albuterol sulfate 90 mcg/actuation 2 puff inhalation Q 6H PRN PRN 07/30/24 Unknown Rx aerosol inhaler Shortness Of Breath #8.5 gra ms budesonide-formoterol HFA 160 2 puff inhalation BID #3 ea 07/30/24 Unknown Rx mcg-4.5 mcg/actuation aerosol inhaler (Symbicort) isosorbide mononitrate 30 mg 30 mg PO DAILY #90 TABLET S 09/09/24 Unknown Rx tablet,extended release 24 hr ipratropium 0.5 mg-albuterol 3 mg 3 ml continuous nebu lization Q6H 09/10/24 Unknown Rx (2.5 mg base)/3 mL nebulization PRN shortness of breat h or soln wheezing #180 mL metoprolol tartrate 50 mg tablet 50 mg PO BID #180 tab s 11/05/24 Unknown Rx losartan 50 mg tablet 50 mg PO QPM #30 tabs Unknown Rx furosemide 40 mg tablet 20 mg PO QAM PRN 05/05/25 Un known History potassium chloride 10 mEq 10 meq PO QDAY 05/05/25 Unkn own History capsule,extended release rosuvastatin 40 mg tablet 40 mg PO QHS #90 tabs Unknown Rx tramadol 50 mg tablet 50 mg PO Q8 PRN pain 5 Unknown History OXYGEN - Supplemental ([facility] 09/05/25 Unknown History INFORMATIONAL USE ONLY) dextromethorphan-guaifenesin ER 60 1 tab PO Q12H 7 day s #14 tabs 09/10/25 Unknown Rx mg-1,200 mg tab,extend release,12hr (Mucinex DM) prednisone 20 mg tablet 40 mg (2 x 20 mg) PO DAILY 5 days 09/10/25 Unknown Rx #10 tabs Allergy/AdvReac Type Severity Reaction Status Date / Time levofloxacin (From Levaquin) AdvReac Severe tendonitis Verified 09/21/25 11:36 Family History Father CAD (coronary artery disease) Brother Hypertension Grandfather Pancreatic cancer Grandmother Heart disease Surgical History History of laparoscopic cholecystectomy S/P laparoscopic cholecystectomy Status post double vessel coronary artery bypass Presence of coronary angioplasty implant and graft (~09/29/21) Hx of left cataract extraction Hx of right cataract extraction History of cardiac catheterization History of colectomy S/p bilateral carpal tunnel release H/O coronary artery bypass surgery (10/14/96) History of left knee replacement History of appendectomy History of tonsillectomy History of partial colectomy Social History Smoking Status: Current every day smoker tobacco type: cigarettes alcohol intake: current alcohol intake frequency: 0-2 drinks per day substance use type: does not use caffeine: Yes Type: coffee Number of servings: 2 what type of physical activity do you participate in: none seatbelt use: always do you feel safe at home: Yes EXAM Physical Exam Const Vital Signs: 09/21/25 11:35 09/21/25 11:36 09/21/25 11:58 Temperature 97.5 F L 97.8 F Temperature Source Temporal Oral Pulse Rate 115 H 106 H Respiratory Rate 16 20 H Respiratory Effort Short of Breath Blood Pressure 119/83 H 130/79 H Blood Pressure Mean 95 96 Pulse Ox 96 98 Oxygen Delivery Method Room Air Room Air Room Air 09/21/25 12:34 09/21/25 12:36 09/21/25 13:00 Temperature 97.8 F 97.5 F L Temperature Source Oral Oral Pulse Rate 97 94 100 Respiratory Rate 20 H 20 H 22 H Respiratory Effort Blood Pressure 131/98 H 131/88 H 146/87 H Blood Pressure Mean 109 102 106 Pulse Ox 97 96 96 Oxygen Delivery Method Room Air Room Air Room Air 09/21/25 13:00 09/21/25 14:00 09/21/25 14:00 Temperature 97.6 F L Temperature Source Oral Pulse Rate 100 74 74 Respiratory Rate 24 H 24 H Respiratory Effort Blood Pressure 146/87 H 156/93 H 156/93 H Blood Pressure Mean 106 114 114 Pulse Ox 95 95 Oxygen Delivery Method Room Air Room Air 09/21/25 15:00 09/21/25 15:24 09/21/25 16:00 Temperature Temperature Source Pulse Rate 104 H 106 H 74 Respiratory Rate 19 H 20 H 18 Respiratory Effort Blood Pressure 159/93 H 159/93 H Blood Pressure Mean 115 115 Pulse Ox 98 96 Oxygen Delivery Method Room Air Room Air MDM MDM MDM Narrative Medical decision making narrative: 70-year-old male with past medical history of COPD who 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 Rivas presents for evaluation of shortness of breath. History taken by patient as well as discharge summary on 09/13/2025. Patient was admitted for a COPD exacerbation with hypoxia due to Pseudomonas pneumonia. He was treated with antibiotics and steroids. Patient also had dysphagia to solid food. Per discharge summary patient was supposed to be on minced and moist diet with meds crushed in applesauce and reflux precautions. Advised to follow-up outpatient with GI. He also had a echocardiogram with an EF of 65% on 09/05. Patient states he finished all of his antibiotics and steroids since discharge. States he has continued to have shortness of breath, worse with exertion. States that his productive cough did resolve during previous admission. Has not been on a special diet. Differential diagnosis includes but is not limited to symptomatic emphysema, COPD exacerbation, pneumonia, PE, ACS, CHF. Respiratory workup ordered. CBC without leukocytosis or anemia. Thrombocytopenia 135. D-dimer elevated 1.74. Cannot rule out PE. CTA chest ordered. BMP unremarkable. BNP unremarkable. Troponin 31 and 30. Patient not having chest pain. CTA chest negative for PE. Patient has stable scattered small bilateral pulmonary nodules measuring 3 mm or less, unchanged from prior study. Moderate centrilobular emphysema. On reevaluation, patient endorsing shortness of breath. Still not wheezing. Still tachycardic. DuoNeb ordered. Will repeat EKG and ambulate with pulse ox. Repeat EKG again shows sinus tachycardia with known right bundle branch block. No acute ischemic changes. Heart rate 102. Patient was ambulated in the emergency department. With ambulation patient's oxygen drops to 91% but he becomes tachycardic with heart rate into the 120s. With rest tachycardia does improve to the low 100s and sometimes completely resolves. He endorses exertional dyspnea. At this point in time no clear etiology for his shortness of breath may be progressive COPD versus exacerbation without wheezing. Will reach out to the hospitalist. Patient was discussed with Dr. Andrews. He knows the patient well. He was made aware of the tachycardia with ambulation. He reviewed the labs and imaging. Patient does not require an hospital admission. Recommended me treating him with steroids on a taper, 3 days at 40 mg, 3 days of 20 mg, and 3 days at 10 mg. Follow-up with his boilermaker welder. Patient updated of all results and the plan. He confirmed understanding will given first dose of pr ednisone here. He was educated to monitor his heart rate and pulse ox at home which he is able too. He does wear oxygen chronically at night and has it available if needed. Return back to the ED if symptoms change or worsen. He confirmed understanding. He was educated to stop smoking. He states he thinks his pulmonology appointment is not until 3 weeks. He was educated to call the office tomorrow to be seen sooner. He confirmed understanding. EKG: Interpreted by me/EM physician: EKG shows sinus tachycardia with known right bundle branch block. Heart rate 111. No acute ischemic changes. Diagnostic: Interpreted by me/EM physician: Chest x-ray with cardiomegaly and mild pulmonary edema. COPD. Radiology in agreement. Impression: 1. Shortness of breath 2. COPD 3. Recent pneumonia Lab Data Labs: Laboratory Results - last 24 hr 09/21/25 09/21/25 12:09 14:30 WBC 11.0 RBC 4.36 L Hgb 15.4 Hct 43.8 MCV 100.5 H MCH 35.3 H MCHC 35.2 RDW Std Deviation 55.0 H RDW Coeff of Lisa 14.7 H Plt Count 135 L MPV 9.5 Immature Gran % (Auto) 0.600 Neut % (Auto) 88.2 H Lymph % (Auto) 6.3 L Frio % (Auto) 4.1 Eos % (Auto) 0.5 Baso % (Auto) 0.3 Absolute Neuts (auto) 9.7 H Absolute Lymphs (auto) 0.69 L Nucleated RBC % 0 D-Dimer Quant (PE/DVT) 1.74 H* Sodium 139 Potassium 4.1 Chloride 99 Carbon Dioxide 30.4 Anion Gap 9 BUN 12 Creatinine 0.92 Estim Creat Clear Calc 74.48 Est GFR (MDRD) Non-Af 89 BUN/Creatinine Ratio 13.4 Glucose 152 H Calcium 8.9 Troponin T High Sens 31 H Troponin T Hi Sens 2 Hr 30 H NT pro BNP II 466 Radiography Diagnostic Testing: Clinical Impression(s) from Imaging Studies Chest X-Ray 09/21/25 11:59 IMPRESSION: Cardiomegaly with mild pulmonary vascular congestion, which may represent early pulmonary edema. Trace bilateral pleural effusions. Hyperaerated lungs consistent with underlying COPD. Reading Location: [address] Chest CTA 09/21/25 12:30 IMPRESSION: No pulmonary embolism. Stable scattered small bilateral pulmonary nodules measuring 3 mm or less, unchanged from the prior study. Moderate centrilobular emphysema. Postsurgical changes of prior CABG with moderate atherosclerosis. No acute thoracic abnormality. Reading Location: [id number] Discharge Plan Triage Chief Complaint: Shortness of Breath ED Provider: Chano Boyd Dx/Rx/DC Orders Prescriptions: No Action clopidogrel [Plavix] 75 mg tablet 75 mg PO DAILY Qty: 90 4RF budesonide-formoterol [Symbicort] 160-4.5 mcg/actuation HFA aerosol inhaler 2 puff inhalation BID Qty: 3 3RF Rx Instructions: administer with spacer, rinse mouth after each use albuterol sulfate 90 mcg/actuation HFA aerosol inhaler 2 puff INHALATION Q6H PRN PRN (Reason: Shortness Of Breath) Qty: 8.5 11RF metoprolol tartrate 50 mg tablet 50 mg PO BID Qty: 180 3RF potassium chloride 10 mEq capsule, extended release 10 meq PO QDAY losartan 50 mg tablet 50 mg PO QPM Qty: 30 11RF tramadol 50 mg tablet 50 mg PO Q8 PRN (Reason: pain) (DME) OXYGEN - Supplemental ([facility] INFORMATIONAL USE ONLY) Gas See Rx Instructions .ROUTE Patient Comments: 2L QHS Rx Instructions: As directed prednisone 20 mg tablet 40 mg PO DAILY 5 Days Qty: 10 0RF dextromethorphan-guaifenesin [Mucinex DM] 60-1,200 mg tablet extended release 12 hr 1 tab PO Q12H 7 Days Qty: 14 0RF isosorbide mononitrate 30 mg tablet extended release 24 hr 30 mg PO DAILY Qty: 90 3RF ipratropium-albuterol 0.5 mg-3 mg(2.5 mg base)/3 mL solution for nebulization 3 ml continuous nebulization Q6H PRN (Reason: shortness of breath or wheezing) Qty: 180 11RF furosemide 40 mg tablet 20 mg PO QAM PRN rosuvastatin 40 mg tablet 40 mg PO QHS Qty: 90 3RF Primary Care Provider: George Vázquez Referrals: George Vázquez MD [Primary Care Provider, Internal Medicine] Print Language: Slovak
[2025-09-21] MEDS: 0.9% Normal Saline (500mL Bag) 500 ML 999 ML IV (12:40)
[2025-09-21 12:41] LABS: Anion Gap 9 (5-15); BUN 12 mg/dL (4-19); BUN/Creat Ratio 13.4 RATIO (10-20); Calcium,Total 8.9 mg/dL (7.6-11.0); Carbon Dioxide 30.4 mmol/L (21.0-32.0); Chloride 99 mmol/L (98-108); Estimated Creatinine Clearance 74.48 ml/min (50-250); Glucose 152 mg/dL (70-99); Potassium 4.1 mmol/L (3.3-5.1); Pro- Brain NATRIURETIC PEPTIDE 466 pg/mL (<=900); Troponin T High Sensitivity 31 ng/L (<=22)
--- NOTE | 2025-09-21 12:58 | CM.ED ---
Social Work Date of referral: 09/21/25 Reason for referral: No Advanced Care Directives (ACD's) on file. Referred by: Social Work Identification Patient provided consent to social work visit. Sand Buffer requested a copy of ADV's which patient agreed to bring in. Soraya Murry, [employer] FINAL INSPECTOR, SENIOR DIRECTOR INSIGHT
[2025-09-21 15:06] LABS: Troponin T High Sens 2 HR 30 ng/L (<=22)
--- NOTE | 2025-09-21 15:30 | EKG12_ITS ---
Test Reason : repeat Blood Pressure : */* mmHG Vent. Rate : 102 BPM Atrial Rate : 102 BPM P-R Int : 124 ms QRS Dur : 126 ms QT Int : 350 ms P-R-T Axes : 75 -67 77 degrees QTcB Int : 456 ms Sinus tachycardia Left axis deviation Right bundle branch block Abnormal ECG Confirmed by BHUPINDER LOPEZ, KARON ([id number]), film and video editor [employer]ICE ([id number]) on 09/22/2025 1:08:09 PM Referred By: Confirmed By: KARON ROE MD
== END 2025-09-21 17:07 | disposition home or self-care (01) ==
PROVIDERS: Emergency Provider Surgery; PCP Internal Medicine; Visit Provider Surgery
DX: R06.02 Shortness of breath (principal); J44.9 Chronic obstructive pulmonary disease, unspecified; E78.00 Pure hypercholesterolemia, unspecified; I10 Essential (primary) hypertension; I25.10 Atherosclerotic heart disease of native coronary artery without angina pectoris; Z99.81 Dependence on supplemental oxygen; Z95.5 Presence of coronary angioplasty implant and graft; Z79.51 Long term (current) use of inhaled steroids; Z79.899 Other long term (current) drug therapy; Z79.02 Long term (current) use of antithrombotics/antiplatelets; Z90.49 Acquired absence of other specified parts of digestive tract; Z98.41 Cataract extraction status, right eye; Z98.42 Cataract extraction status, left eye; Z96.652 Presence of left artificial knee joint; F17.210 Nicotine dependence, cigarettes, uncomplicated
CPT/HCPCS: 71046; 71275; 80048; 83880; 84484; 85025; 85379; 87631; 93005; 94640; 96360; 99284; Q9967

== ENCOUNTER → 2025-10-08 | Outpatient (CLI) | payer MEDICARE, OTHER, SELFPAY ==
[2022-02-14 13:29] VITALS: BMI 28.4
== END | disposition home or self-care (01) ==
PROVIDERS: PCP Internal Medicine; Referring Provider Student in an Organized Health Care Education/Training Program; Visit Provider Student in an Organized Health Care Education/Training Program
DX: R00.0 Tachycardia, unspecified (principal)
CPT/HCPCS: 93225; 93226

== ENCOUNTER 2025-10-16 12:03 | Inpatient (IN) | payer MEDICARE, OTHER, SELFPAY ==
[2022-02-14 13:29] VITALS: BMI 28.4
[2025-10-16] VITALS (12 sets, daily range): BP systolic 131–158; BP diastolic 80–101; PULSE 78–123; RESP 16–30; TEMP 36.6–37.2; O2SAT 83–98; BMI 26.9; BMI 26.2
--- NOTE | 2025-10-16 12:28 | EKG12_ITS ---
Test Reason : Blood Pressure : */* mmHG Vent. Rate : 99 BPM Atrial Rate : 99 BPM P-R Int : 114 ms QRS Dur : 124 ms QT Int : 394 ms P-R-T Axes : 61 -76 104 degrees QTcB Int : 505 ms Sinus rhythm with Premature atrial complexes with Aberrant conduction Possible Left atrial enlargement Left axis deviation Right bundle branch block T wave abnormality, consider lateral ischemia Abnormal ECG Confirmed by Carrillo Malave ([id number]), editor farm journal REBEL PRICE ([id number]) on 10/17/2025 10:31:46 AM Referred By: Confirmed By: Carrillo Malave
--- NOTE | 2025-10-16 12:40 | RAD_ITS ---
PROCEDURE: CHEST PA AND LATERAL 10/16/2025 REASON FOR EXAM: SHORTNESS OF BREATH TECHNIQUE: Procedure Code: RADCXR Modality: DX Procedure: CHEST PA AND LATERAL COMPARISON: 09/21/2025 FINDINGS: Stable mild cardiomegaly. Sternotomy wires, mediastinal surgical clips. Hyperinflated lungs consistent with COPD. No large pleural effusion. No consolidation in either lung. RAD/Chest PA and Lateral IMPRESSION: No acute process in the chest Reading Location: [id number]
[2025-10-16 12:47] LABS: Hematocrit 45.1 % (40-54); Hemoglobin 16.0 g/dL (13.0-16.5); Immature Granulocytes Count 0.030 X10^3/uL (0.0-0.0); Mean Corp Hgb Conc 35.5 g/dL (32-36); Mean Corpuscular Volume 102.0 fL (80-94); Mean Platelet Vol. 9.3 fl (6.2-12.0); NRBC Flagged by Analyzer 0 % (0-5); Platelet Count 187 K/mm3 (150-450); RBC Distribution Width CV 14.2 % (11.6-14.6); RBC Distribution Width SD 54.1 fl (35.1-43.9); Red Blood Count 4.42 M/mm3 (4.6-6.2); White Blood Count 8.1 K/mm3 (4.4-11.0)
--- NOTE | 2025-10-16 12:47 | ED.VIS.DYS ---
HPI History of Present Illness Chief Complaint: Shortness of Breath Narrative Narrative: Chief complaint and HPI: 70-year-old male with past medical history of COPD on 2 L nasal cannula at night only, CHF, HTN, HLD presents for evaluation of progressive shortness of breath. History taken by patient as well as phone call from the provider over the phone. Patient states for the past 5 days he has been short of breath. He also endorses bilateral lower extremity edema but is unsure if this is worse than his baseline. He was seen in Dr. Guadarrama's office today in which he was found to have peripheral edema and was 84% on his 2 L nasal cannula. He was sent to the emergency department. Patient states his shortness of breath is worse with exertion. He endorses orthopnea. He denies any fever, chills, URI symptoms, chest pain abdominal pain, nausea, vomiting. Review of systems: See HPI Medications: As listed on the chart Allergies: As listed on the chart PFSH: Per chart Vital signs: As listed on the chart. Reviewed. Physical exam: Gen: A&O x3, Head: Normocephalic, atraumatic Eyes: No sclera icterus, conjunctiva clear ENT: Moist mucous membranes Neck: Trachea midline CV: RRR, no murmurs, + 2 bilateral pitting peripheral edema Resp: Lungs coarse bilaterally, diminished in the bilateral bases, on 2 L nasal cannula, tachypneic GI: Abd soft, non-distended, non-tender, no r/r/g Musc: Full ROM, no deformity Skin: Warm, dry Psych: Cooperative, appropriate mood and affect [facility] Medical History Essential hypertension Alcohol use History of steroid therapy Arthritis High cholesterol Smoker On home oxygen therapy COPD (chronic obstructive pulmonary disease) Shortness of breath on exertion History of pain when walking Hypertension History of echocardiogram History of stress test Cardiology follow-up encounter Gallstone Nodule of lower lobe of left lung Perforated diverticulum of large intestine Presence of stent in coronary artery (~11/12/21) Easy bruising Excessive bleeding History of ulceration Gastric reflux History of diverticulitis Chronic bronchitis Nicotine dependence Osteoarthritis DDD (degenerative disc disease), lumbar Atherosclerosis of coronary artery of [place] heart without angina pectoris Atherosclerosis of coronary artery bypass graft without angina pectoris Hyperlipidemia Home Medications ?Medication ?Instructions ?Recorded ?Last Taken ?Type clopidogrel 75 mg tablet (Plavix) 75 mg PO DAILY anti platelet #90 10/04/21 11/26/22 Rx tabs budesonide-formoterol HFA 160 2 puff inhalation BID #3 ea 07/30/24 Unknown Rx mcg-4.5 mcg/actuation aerosol inhaler (Symbicort) isosorbide mononitrate 30 mg 30 mg PO DAILY #90 TABLETS 09/09/24 Unknown Rx tablet,extended release 24 hr metoprolol tartrate 50 mg tablet 50 mg PO BID #180 tabs 11/05/24 Unknown Rx losartan 50 mg tablet 50 mg PO QPM #30 tabs 01/08/25 Unknown Rx rosuvastatin 40 mg tablet 40 mg PO QHS #90 tabs 07/14/25 Unknown Rx OXYGEN - Supplemental ([facility] 09/05/25 Unknown History INFORMATIONAL USE ONLY) albuterol sulfate 0.63 mg/3 mL 0.63 mg inhalation TID PRN 10/16/25 Unknown History solution for nebulization shortness of breath or wheezing Allergy/AdvReac Type Severity Reaction Status Date / Time levofloxacin (From Levaquin) AdvReac Severe tendonitis Verified 10/16/25 12:07 Family History Father CAD (coronary artery disease) Brother Hypertension Grandfather Pancreatic cancer Grandmother Heart disease Surgical History History of laparoscopic cholecystectomy S/P laparoscopic cholecystectomy Status post double vessel coronary artery bypass Presence of coronary angioplasty implant and graft (~09/29/21) Hx of left cataract extraction Hx of right cataract extraction History of cardiac catheterization History of colectomy S/p bilateral carpal tunnel release H/O coronary artery bypass surgery (10/14/96) History of left knee replacement History of appendectomy History of tonsillectomy History of partial colectomy Social History Smoking Status: Current every day smoker tobacco type: cigarettes alcohol intake: current alcohol intake frequency: 0-2 drinks per day substance use type: does not use caffeine: Yes Type: coffee Number of servings: 2 what type of physical activity do you participate in: none seatbelt use: always do you feel safe at home: Yes EXAM Physical Exam Const Vital Signs: 10/16/25 12:03 10/16/25 12:03 10/16/25 12:07 Temperature 99 F Temperature Source Temporal Pulse Rate 123 H 122 H Respiratory Rate 30 H Respiratory Effort Respiratory Depth Respiratory Pattern Blood Pressure 158/101 H Blood Pressure Mean 120 Pulse Ox 83 93 94 Oxygen Delivery Method Room Air Nasal Cannula Nasal Cannula Oxygen Flow Rate (L/min) 2 3 10/16/25 12:19 10/16/25 12:19 10/16/25 12:31 Temperature 97.8 F Temperature Source Oral Pulse Rate 97 Respiratory Rate 20 H Respiratory Effort Short of Breath Pursed Lip Respiratory Depth Deep Respiratory Pattern Normal Blood Pressure 131/95 H Blood Pressure Mean 107 Pulse Ox 95 Oxygen Delivery Method Nasal Cannula Room Air Nasal Cannula Oxygen Flow Rate (L/min) 2 2 10/16/25 13:11 10/16/25 13:15 10/16/25 14:00 Temperature 98.1 F Temperature Source Oral Pulse Rate 91 99 109 H Respiratory Rate 16 18 26 H Respiratory Effort Respiratory Depth Respiratory Pattern Normal Blood Pressure 141/98 H 155/80 H Blood Pressure Mean 112 105 Pulse Ox 97 98 Oxygen Delivery Method Nasal Cannula Nasal Cannula Oxygen Flow Rate (L/min) 2 2 MDM MDM MDM Narrative Medical decision making narrative: 70-year-old male with past medical history of COPD on 2 L nasal cannula at night only, CHF, HTN, HLD presents for evaluation of progressive shortness of breath. History taken by patient as well as phone call from the provider over the phone. Patient states for the past 5 days he has been short of breath. He also endorses bilateral lower extremity edema but is unsure if this is worse than his baseline. He was seen in Dr. Guadarrama's office today in which he was found to have peripheral edema and was 84% on his 2 L nasal cannula. On presentation, patient is dyspneic and tachypneic. He is on his 2 L nasal cannula. Differential diagnosis includes but is not limited to COPD exacerbation, CHF exacerbation, electrolyte abnormality, PE, ACS, pneumonia, viral illness. Solu-Medrol and DuoNebs ordered. Laboratory workup ordered including chest x-ray. VBG with normal pH. Patient's POC 2 is elevated at 53.3. CBC without leukocytosis or anemia. D-dimer elevated to 5.75. Cannot rule out PE. CTA chest ordered. BMP relatively unremarkable. Lactic acid 2.4. Will be judicial with fluids however given patient has CHF. 500 cc NS bolus was ordered for contrast with the CT chest. Troponin 31. Patient not having any chest pain. Will obtain delta. BNP unremarkable. CTA of the chest shows interval progression of bilateral PEs, now with saddle emboli and involvement of all lobes. Patient had previous CTA in August which the radiologist states that the PEs were there but they were small and missed. Moderate clot burden. No signs of right heart strain. These were personally relayed to me over the phone. Emphysema. Patient will be started on a heparin drip. Patient was updated of all the results of her and understand the plan. He will warrant admission. I spoke with Dr. Phillips who accepted admission. EKG: Interpreted by me/EM physician: EKG shows normal sinus rhythm with PACs. Nonspecific ST changes. Heart rate 99. Diagnostic: Interpreted by me/EM physician: Chest x-ray with mild cardiomegaly. No pneumonia, effusion, pneumothorax. Radiology in agreement. COPD. 30 minutes of critical care time utilized in managing the patient. This is due to high probability of and deterioration of the patient based on the patient's condition and excludes any separately billable procedures. Impression: 1. Bilateral PE with right heart strain 2. Elevated troponin secondary to #1 3. COPD exacerbation Lab Data Labs: Laboratory Results - last 24 hr 10/16/25 12:30 WBC 8.1 RBC 4.42 L Hgb 16.0 Hct 45.1 MCV 102.0 H MCH 36.2 H MCHC 35.5 RDW Std Deviation 54.1 H RDW Coeff of Lisa 14.2 Plt Count 187 MPV 9.3 Immature Gran % (Auto) 0.400 Neut % (Auto) 79.4 H Lymph % (Auto) 12.0 L [place] % (Auto) 7.9 Eos % (Auto) 0.1 Baso % (Auto) 0.2 Absolute Neuts (auto) 6.4 Absolute Lymphs (auto) 0.97 Nucleated RBC % 0 D-Dimer Quant (PE/DVT) 5.75 H* Sodium 141 Potassium 3.8 Chloride 101 Carbon Dioxide 28.8 Anion Gap 11 BUN 17 Creatinine 0.85 Estim Creat Clear Calc 74.52 Est GFR (MDRD) Non-Af 93 BUN/Creatinine Ratio 19.9 Glucose 149 H Lactic Acid 2.4 H* Calcium 9.1 Troponin T High Sens 31 H NT pro BNP II 833 ABG Data ABG results: ABG 10/16/25 13:03 Specimen Type IRENE Sample Site Not entered VBG pH 7.41 VBG pO2 35 VBG HCO3 33 H VBG Total CO2 35 H VBG O2 Sat (Calc) 66 VBG Base Excess 9 H POC Mix VBG pCO2 Pt Tmp 53.3 H O2 Delivery Device Not entered Radiography Diagnostic Testing: Clinical Impression(s) from Imaging Studies Chest X-Ray 10/16/25 12:40 IMPRESSION: No acute process in the chest Reading Location: [id number] Chest CTA 10/16/25 13:30 IMPRESSION: 1. Interval progression of bilateral PEs, now with saddle emboli and involvement of all lobes. Moderate clot burden (previously minimal). Signs of right heart strain. These findings were discussed with Dr. Boyd on 10/16/2025 at 11:12 a.m. [place] standard time. 2. Mild centrilobular emphysema. Reading Location: [facility] Discharge Plan Triage Chief Complaint: Shortness of Breath ED Provider: Chano Boyd Dx/Rx/DC Orders Prescriptions: No Action clopidogrel [Plavix] 75 mg tablet 75 mg PO DAILY Qty: 90 4RF budesonide-formoterol [Symbicort] 160-4.5 mcg/actuation HFA aerosol inhaler 2 puff inhalation BID Qty: 3 3RF Rx Instructions: administer with spacer, rinse mouth after each use metoprolol tartrate 50 mg tablet 50 mg PO BID Qty: 180 3RF losartan 50 mg tablet 50 mg PO QPM Qty: 30 11RF (DME) OXYGEN - Supplemental ([facility] INFORMATIONAL USE ONLY) Gas See Rx Instructions .ROUTE Patient Comments: 2L QHS Rx Instructions: As directed albuterol sulfate 0.63 mg/3 mL solution for nebulization 0.63 mg inhalation TID PRN (Reason: shortness of breath or wheezing) isosorbide mononitrate 30 mg tablet extended release 24 hr 30 mg PO DAILY Qty: 90 3RF rosuvastatin 40 mg tablet 40 mg PO QHS Qty: 90 3RF Primary Care Provider: George Vázquez Referrals: George Vázquez MD [Primary Care Provider, Internal Medicine] Print Language: [place]
[2025-10-16 13:06] LABS: SITE Not entered; VBG BASE EXCESS 9 mmol/L (-1.0-3.5); VBG PO2 35 mmHg (25-40); VBG SO2 66 % (50-70); VBG TCO2 35 mmol/L (23-33)
[2025-10-16 13:07] LABS: D-Dimer Quantitative (DVT/PE) 5.75 FEU/ug/m (0.27-0.49)
[2025-10-16 13:16] LABS: Anion Gap 11 (5-15); BUN 17 mg/dL (4-19); BUN/Creat Ratio 19.9 RATIO (10-20); Calcium,Total 9.1 mg/dL (7.6-11.0); Carbon Dioxide 28.8 mmol/L (21.0-32.0); Chloride 101 mmol/L (98-108); Estimated Creatinine Clearance 74.52 ml/min (50-250); Glucose 149 mg/dL (70-99); Potassium 3.8 mmol/L (3.3-5.1); Pro- Brain NATRIURETIC PEPTIDE 833 pg/mL (<=900); Troponin T High Sensitivity 31 ng/L (<=22)
--- NOTE | 2025-10-16 13:30 | CT_ITS ---
PROCEDURE: CTA CHEST W/WO CONTRAST 10/16/2025 REASON FOR EXAM: PE. Shortness of breath. History of chest pain and COPD. TECHNIQUE: Procedure Code: [id number] Modality: CT Procedure: CTA CHEST W/WO CONTRAST Axial CTA images obtained of the chest after the administration of intravenous contrast. MIP reconstructed images were created and reviewed. CONTRAST: Isovue 370 VOLUME: 100 mL One or more dose reduction techniques were used (e.g., Automated exposure control, adjustment of the mA and/or kV according to patient size, use of iterative reconstruction technique). RADIATION DOSE SUMMARY: CTDlvol: 11.87, 10.01 mGy DLP: 361.49 mGycm COMPARISON: 09/21/2025 FINDINGS: PULMONARY ARTERIES Interval worsening of bilateral pulmonary emboli, now moderate clot burden, previously minimal. Saddle emboli now present in the distal left pulmonary artery and right interlobar pulmonary artery with PEs extending into all lobes. AORTA No thoracic aortic aneurysm or dissection. Scattered calcified atherosclerosis. TRACHEA/AIRWAY Retained secretions in the trachea. Mild bronchial wall thickening bilaterally, greatest in the lower lobes, which is unchanged. LUNGS Mild centrilobular emphysema. No focal airspace consolidation. No pulmonary mass. Right-sided pleural calcifications, suggesting remote asbestos exposure. Unchanged scattered areas of atelectasis/scarring bilaterally. PLEURAL SPACES No pleural effusion. No pneumothorax. HEART No cardiomegaly. Abnormally elevated RV/LV ratio of 1.6 (previously 1.3). No significant pericardial effusion. Coronary artery calcification with prior CABG. Sternal wires are present. MEDIASTINUM/HILUM No significant lymphadenopathy. CHEST WALL The chest wall is unremarkable. BONES No focal osseous abnormality or acute fracture. Old right rib fractures. UPPER ABDOMEN Unchanged hypodense (8 HU) 1.7 cm right renal lesion, likely a cyst. CT/CTA Chest W/WO Contrast IMPRESSION: 1. Interval progression of bilateral PEs, now with saddle emboli and involveme nt of all lobes. Moderate clot burden (previously minimal). Signs of right heart strain. These findings were discussed with Dr. Boyd on 10/16/2025 at 11:12 a.m. [place] standard time. 2. Mild centrilobular emphysema. Reading Location: [id number]
[2025-10-16] MEDS: 0.9% Normal Saline (500mL Bag) 500 ML 1000 ML IV (13:50)
[2025-10-16] MEDS: Heparin Injection (Vial) 5,000 UNIT/ML VIAL 5500 UNIT IV (14:48)
[2025-10-16] MEDS: HEPARIN/D5w 25,000 UNITS 25,000 UNITS/250 ML IV.SOLN. 11.7 UNITS CONT INF (14:52)
--- NOTE | 2025-10-16 14:54 | PCM.HP.STD ---
HPI - General General Date of Admission: 10/16/25 Date of Service: 10/16/25 Chief Complaint: SOB HPI Narrative RAISA SMILEY, is a 70-year-old male history of COPD on 2 L nasal cannula nightly, hypertension, coronary artery disease with stenting and CABG who presented [facility] ED 10/16/2025 with increasing shortness of breath. Reportedly for the past 5 days has had increased shortness of breath as well as bilateral lower extremity edema. Was seen by Dr. Orellana in his office today and was found to have peripheral edema and is 84% on his 2 L of nasal cannula and was sent to the ED. In the ED temp 99, heart rate 123, respiratory rate 30, blood pressure 158/101 and pulse ox 83% on room air. White count 8.1, hemoglobin 16, creatinine 0.85, [place] of 31, proBNP 833, lactic of 2.4 and D-dimer 5.75. VBG with pH of 7.41, bicarb 33 and pCO2 53.3. Chest x-ray no acute process. CTA obtained which showed interval progression of bilateral pulmonary embolisms now with saddle emboli and involvement in all lobes with moderate clot burden (previously minimal) and signs of right heart strain. Patient COVID/flu/RSV negative. Hospitalist contacted for admission. Patient evaluated at bedside, being started now on heparin, reports his breathing is similar to arrival. Denies any cough. Does note the swelling in his lower extremities but said it is been there for about a year. Does note that shortness of breath has been going on for about 5 days and is continue to worsen. Denies any infectious symptoms. No other new or acute complaints. [facility] Medical History Essential hypertension Alcohol use History of steroid therapy Arthritis High cholesterol Smoker On home oxygen therapy COPD (chronic obstructive pulmonary disease) Shortness of breath on exertion History of pain when walking Hypertension History of echocardiogram History of stress test Cardiology follow-up encounter Gallstone Nodule of lower lobe of left lung Perforated diverticulum of large intestine Presence of stent in coronary artery (~11/12/21) Easy bruising Excessive bleeding History of ulceration Gastric reflux History of diverticulitis Chronic bronchitis Nicotine dependence Osteoarthritis DDD (degenerative disc disease), lumbar Atherosclerosis of coronary artery of [place] heart without angina pectoris Atherosclerosis of coronary artery bypass graft without angina pectoris Hyperlipidemia Home Medications ?Medication ?Instructions ?Recorded ?Last Taken ?Type clopidogrel 75 mg tablet (Plavix) 75 mg PO DAILY anti platelet #90 10/04/21 11/26/22 Rx tabs budesonide-formoterol HFA 160 2 puff inhalation BID #3 ea 07/30/24 Unknown Rx mcg-4.5 mcg/actuation aerosol inhaler (Symbicort) isosorbide mononitrate 30 mg 30 mg PO DAILY #90 TABLETS 09/09/24 Unknown Rx tablet,extended release 24 hr metoprolol tartrate 50 mg tablet 50 mg PO BID #180 tabs 11/05/24 Unknown Rx losartan 50 mg tablet 50 mg PO QPM #30 tabs 01/08/25 Unknown Rx rosuvastatin 40 mg tablet 40 mg PO QHS #90 tabs 07/14/25 Unknown Rx OXYGEN - Supplemental ([facility] 09/05/25 Unknown History INFORMATIONAL USE ONLY) albuterol sulfate 0.63 mg/3 mL 0.63 mg inhalation TID PRN 10/16/25 Unknown History solution for nebulization shortness of breath or wheezing Allergy/AdvReac Type Severity Reaction Status Date / Time levofloxacin (From Levaquin) AdvReac Severe tendonitis Verified 10/16/25 12:07 Family History Father CAD (coronary artery disease) Brother Hypertension Grandfather Pancreatic cancer Grandmother Heart disease Surgical History History of laparoscopic cholecystectomy S/P laparoscopic cholecystectomy Status post double vessel coronary artery bypass Presence of coronary angioplasty implant and graft (~09/29/21) Hx of left cataract extraction Hx of right cataract extraction History of cardiac catheterization History of colectomy S/p bilateral carpal tunnel release H/O coronary artery bypass surgery (10/14/96) History of left knee replacement History of appendectomy History of tonsillectomy History of partial colectomy Social History Smoking Status: Current every day smoker tobacco type: cigarettes alcohol intake: current alcohol intake frequency: 0-2 drinks per day substance use type: does not use caffeine: Yes Type: coffee Number of servings: 2 what type of physical activity do you participate in: none seatbelt use: always do you feel safe at home: Yes ROS ROS Narrative General: Denies fever/chills HENT: Denies headache, denies stuffy nose, denies sore throat EYES: Denies changes in vision Resp: Denies cough, increasing shortness of breath for 5 days Cardiac: Denies chest pain GI: Denies abdominal pain, denies changes in bowel, denies nausea/vomiting : Denies changes in urination Extremity: Reports some chronic swelling lower extremities MSK: Denies weakness Neuro: Denies any numbness/tingling Heme: Some scattered bruising Skin: Denies rashes Psychiatric: No complaints voiced Patient's Goals Of Care . What would you like to achieve or improve as a result of your hospital stay?: To feel better Vital Signs Vital Signs Vital Signs: 10/16/25 12:03 10/16/25 12:03 10/16/25 12:07 Temperature 99 F Temperature Source Temporal Pulse Rate 123 H 122 H Respiratory Rate 30 H Respiratory Effort Respiratory Depth Respiratory Pattern Blood Pressure 158/101 H Blood Pressure Mean 120 Pulse Ox 83 93 94 Oxygen Delivery Method Room Air Nasal Cannula Nasal Cannula Oxygen Flow Rate (L/min) 2 3 10/16/25 12:19 10/16/25 12:19 10/16/25 12:31 Temperature 97.8 F Temperature Source Oral Pulse Rate 97 Respiratory Rate 20 H Respiratory Effort Short of Breath Pursed Lip Respiratory Depth Deep Respiratory Pattern Normal Blood Pressure 131/95 H Blood Pressure Mean 107 Pulse Ox 95 Oxygen Delivery Method Nasal Cannula Room Air Nasal Cannula Oxygen Flow Rate (L/min) 2 2 10/16/25 13:11 10/16/25 13:15 10/16/25 14:00 Temperature 98.1 F Temperature Source Oral Pulse Rate 91 99 109 H Respiratory Rate 16 18 26 H Respiratory Effort Respiratory Depth Respiratory Pattern Normal Blood Pressure 141/98 H 155/80 H Blood Pressure Mean 112 105 Pulse Ox 97 98 Oxygen Delivery Method Nasal Cannula Nasal Cannula Oxygen Flow Rate (L/min) 2 2 Weight Weight: 77.9 kg Body Mass Index (BMI) 26.9 Physical Exam Narrative General: Alert, oriented HEENT: Atraumatic, normocephalic Eyes: Anicteric, normal conjunctiva, extraocular movements grossly intact Neck: Supple Respiratory: Tachypneic with increased work of breathing Cardiovascular: Sinus tachycardia GI: Soft, nontender, nondistended Extremities: 1-2+ bilateral lower extremity edema Musculoskeletal: Moving all extremities Neuro: No overt focal neurological deficits Skin: Some erythema and chronic changes in legs Psych: Cooperative Results Lab / Micro Data 10/16/25 12:30 10/16/25 12:30 Labs: Laboratory Results - last 24 hr 10/16/25 12:30: WBC 8.1, RBC 4.42 L, Hgb 16.0, Hct 45.1, MCV 102.0 H, MCH 36.2 H, MCHC 35.5, RDW Std Deviation 54.1 H, RDW Coeff of Lisa 14.2, Plt Count 187, MPV 9.3, Immature Gran % (Auto) 0.400, Neut % (Auto) 79.4 H, Lymph % (Auto) 12.0 L, [place] % (Auto) 7.9, Eos % (Auto) 0.1, Baso % (Auto) 0.2, Absolute Neuts (auto) 6.4, Absolute Lymphs (auto) 0.97, Nucleated RBC % 0, D-Dimer Quant (PE/DVT) 5.75 H*, Sodium 141, Potassium 3.8, Chloride 101, Carbon Dioxide 28.8, Anion Gap 11, BUN 17, Creatinine 0.85, Estim Creat Clear Calc 74.52, Est GFR (MDRD) Non-Af 93, BUN/Creatinine Ratio 19.9, Glucose 149 H, Lactic Acid 2.4 H*, Calcium 9.1, Troponin T High Sens 31 H, NT pro BNP II 833 Micro: Microbiology 10/16/25 12:30 Mucosa - Nose SARS-CoV-2, Influenza & RSV (PCR) - Final ABG Data ABG results: ABG 10/16/25 13:03 Specimen Type IRENE Sample Site Not entered VBG pH 7.41 VBG pO2 35 VBG HCO3 33 H VBG Total CO2 35 H VBG O2 Sat (Calc) 66 VBG Base Excess 9 H POC Mix VBG pCO2 Pt Tmp 53.3 H O2 Delivery Device Not entered Imaging Radiology Impression Chest X-Ray 10/16/25 12:40 IMPRESSION: No acute process in the chest Reading Location: [id number] Chest CTA 10/16/25 13:30 IMPRESSION: 1. Interval progression of bilateral PEs, now with saddle emboli and involvement of all lobes. Moderate clot burden (previously minimal). Signs of right heart strain. These findings were discussed with Dr. Boyd on 10/16/2025 at 11:12 a.m. [place] standard time. 2. Mild centrilobular emphysema. Reading Location: [id number] Assessment & Plan Assessment/Plan (1) Pulmonary embolism: (2) Acute on chronic hypoxic respiratory failure: PLAN: Plan # Acute hypoxic respiratory failure on chronic hypoxic respiratory failure secondary to bilateral pulmonary emboli -Patient saturating in the 80s on room air in the ED despite only using 2 L of O2 nightly -Improved to 90s on 2 L nasal cannula -Elevated D-dimer in the ED, proBNP 833 with a left troponin of 31 -Patient tachycardic and tachypneic with increased work of breathing -Bedrest for now and reevaluate - CTA obtained which showed interval progression of bilateral pulmonary embolisms now with saddle emboli and involvement in all lobes with moderate clot burden (previously minimal) and signs of right heart strain. -Patient started on heparin drip in the ED -Will order echocardiogram -Plan will be to DC on DOAC - Incentive spirometer #Hx COPD - Given patient is already tachycardic and want to reduce strain on heart and have a specific reason for his hypoxia and shortness of breath will do ipratropium nebs and inhaled budesonide but avoid albuterol if possible to avoid worsening his tachycardia -Incentive spirometer #Hx of CAD -w/ previous CABG and stenting - Holding home metoprolol and Imdur at this time as his tachycardia is compensatory and CT reported evidence of right heart strain, want to avoid decompensation. Add back as able -Continue statin -Most recent stent was in 2021 so will continue heparin, holding Plavix at this time #Hypertension - If BP remains stable can consider home losartan #DVT ppx: Patient on heparin drip Alyssa Phillips MD Charges/Coding Visit Charges Inpatient E&M: 30662 Init Hosp L2
[2025-10-16 15:08] LABS: Prothrombin Time (Protime)PT. 13.4 SECONDS (11.7-14.9)
[2025-10-16 15:09] LABS: Partial Thromboplast Time 23.5 Seconds (24.1-36.2); Troponin T High Sens 2 HR 28 ng/L (<=22)
--- NOTE | 2025-10-16 15:11 | ED.RN ---
Spoke with pt ALTAA, Alka Darell- daughter. Given update, daughter would like to stay updated throughout pt stay. Pt is okay with this
--- NOTE | 2025-10-16 15:13 | ECHOL_ITS ---
Reason For Study Reason For Study: Pulmonary Embolism Procedure This was a limited 2D transthoracic echocardiogram. The patient is in sinus rhythm. The study was technically difficult. Exam performed portable in ED. Left Ventricle Normal LV size. Mild concentric left ventricular hypertrophy. The left ventricular ejection fraction is 65 %. Stage 1 diastolic dysfunction. Right Ventricle Normal RV size. Normal systolic function. Atria The left atrium is mildly enlarged. Normal right atrium. Mitral Valve There is Moderate focal posterior mitral annular calcification. Trivial mitral valve insufficiency. Tricuspid Valve Trivial to mild tricuspid valve insufficiency. Estimated pulmonary artery systolic pressure 70 mmHg. Aortic Valve Trisinus/trileaflet aortic valve. Pulmonic Valve The pulmonic valve is not well visualized. Great Vessels Normal sized aortic root. Pericardium/Pleural Trivial to small pericardial effusion. MMode/2D Measurements & Calculations LVIDd: 4.7 cm IVSd: 1.2 cm LVAd ap4: 25.6 cm2 LVIDs: 3.4 cm LVPWd: 1.0 cm LVLd ap4: 7.3 cm RVDd: 4.1 cm FS: 28.7 % EDV(MOD-sp4): 75.3 ml EDV(sp4-el): 75.7 ml LVAs ap4: 14.4 cm2 LVLs ap4: 6.2 cm ESV(MOD-sp4): 28.3 ml ESV(sp4-el): 28.6 ml EF(MOD-sp4): 62.4 % EF(sp4-el): 62.2 % SV(MOD-sp4): 47.0 ml SV(sp4-el): 47.0 ml SI(MOD-sp4): 24.8 ml/m2 Doppler Measurements & Calculations PA V2 max: 108.6 cm/sec TR max kim: 370.2 cm/sec TR max P.8 mmHg ECHO/Echo, Limited Study Interpretation Summary Mild concentric left ventricular hypertrophy. The left ventricular ejection fraction is 65 %. Stage 1 diastolic dysfunction. The left atrium is mildly enlarged. There is Moderate focal posterior mitral annular calcification. Trivial to mild tricuspid valve insufficiency. Estimated pulmonary artery systo lic pressure 70 mmHg. Trivial to small pericardial effusion. The study was technically difficult. Ordering Physician: Alyssa Phillips Performed By: Chano Middleton RCS
[2025-10-16 16:38] LABS: Reflex Lactate? Y
[2025-10-16] MEDS: Ipratropium 0.5 MG/2.5 ML SOLUTION INHALATION (19:18)
[2025-10-16] MEDS: Budesonide Respules 0.5 MG/2 ML AMPUL.NEB. INHALATION (19:18)
--- NOTE | 2025-10-16 20:39 | CPS ---
pt rinsed mouth x 1
[2025-10-16 21:28] LABS: Partial Thromboplast Time 136.0 Seconds (24.1-36.2)
[2025-10-16] MEDS: Ensure Plus High Protein 120 ML LIQUID PO (23:26)
[2025-10-17] VITALS (11 sets, daily range): BP systolic 134–159; BP diastolic 83–91; PULSE 74–88; RESP 14–20; TEMP 36.4–37.3; O2SAT 94–100
[2025-10-17 06:19] LABS: Hematocrit 39.6 % (40-54); Hemoglobin 13.4 g/dL (13.0-16.5); Immature Granulocytes Count 0.040 X10^3/uL (0.0-0.0); Mean Corp Hgb Conc 33.8 g/dL (32-36); Mean Corpuscular Volume 101.8 fL (80-94); Mean Platelet Vol. 9.7 fl (6.2-12.0); NRBC Flagged by Analyzer 0 % (0-5); POSITIVE DIFFERENTIAL YES; Platelet Count 188 K/mm3 (150-450); RBC Distribution Width CV 14.1 % (11.6-14.6); RBC Distribution Width SD 52.9 fl (35.1-43.9); Red Blood Count 3.89 M/mm3 (4.6-6.2); White Blood Count 6.0 K/mm3 (4.4-11.0)
[2025-10-17] MEDS: Ipratropium 0.5 MG/2.5 ML SOLUTION INHALATION ×4 (06:37→21:46)
[2025-10-17] MEDS: Budesonide Respules 0.5 MG/2 ML AMPUL.NEB. INHALATION ×2 (06:37→21:46)
[2025-10-17 07:00] LABS: Anion Gap 8 (5-15); BUN 20 mg/dL (4-19); BUN/Creat Ratio 24.3 RATIO (10-20); Calcium,Total 9.2 mg/dL (7.6-11.0); Carbon Dioxide 30.0 mmol/L (21.0-32.0); Chloride 102 mmol/L (98-108); Estimated Creatinine Clearance 75.41 ml/min (50-250); Glucose 146 mg/dL (70-99); Potassium 3.8 mmol/L (3.3-5.1)
--- NOTE | 2025-10-17 10:28 | CASEMGMT ---
TOMMIE ANNA Assessment: Face to Face with pt for initial transition planning/care coordination assessment. RN WILFRIDO introduced self and role at [facility], pt voices understanding and consents to assessment. Pt is A&O x4 and answers all questions appropriately at this time. Pt sitting up in bed receiving a breathing treatment. Care providers, pharmacy, and demographics verified/updated. Strata:3 Admitting Dx: PE PCP:Gurpreet Specialists:bryan Orellana; Ananda cardio Preferred Pharmacy:[facility] Insurance:[facility] Prescription Benefit: yes LNOK:Jarret Henderson, father; Radha Matos, friend Living Arrangements/ADL/IADLs: Pt lives with son in a 2 story home with 6 steps up from garage then a 30ft christian and another 6 steps to the basement followed by 12 steps to main level. Pt reports he is I in ADL/IADLs and denies concerns at home. He mostly eats out and gets groceries for snacks and water. Pt granddtr does laundry. Pt states he does get winded with all the steps in his home. 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 Transportation: Pt drives self and denies concerns with transportation. DME:pox, oxygen through [employer], pt has a portable concentrator that can be brought in at dc, nebulizer HHC/SNF:Denies hx of Pt states no concerns with going home at time of dc. TOMMIE ANNA to follow for increase in oxygen rx and for anticoag. Pt is on lovenox now. 6cl=22. Pt states he drinks a couple of drinks of liquor a day, smokes 5-10 cigarettes per day (not around his oxygen) and denies any other street drugs or illegal drugs. Pt denies need for resources for cessation for this. Pt states no further concerns/needs. CM to follow. Advised pt to ask CM if any further question/concerns/needs arise, voices understanding. Pt Goal:Home Plan:Home, follow for increase in oxygen rx. Pt home concentrator goes to 5L.
--- NOTE | 2025-10-17 11:05 | PCM.PN.HOSP ---
Reason for Visit Chief Complaint: SOB Subjective Subjective Saw patient at bedside this morning. Patient was sitting back comfortably in bed, breathing comfortably on 2 L nasal cannula, conversing normally, in no acute distress. Denies shortness of breath at rest but does have significant shortness of breath with minimal exertion. Denies any fevers or chills. No other acute concerns currently. Objective Data Objective Data Vital Signs: Vital Signs Temp Pulse Resp BP Pulse Ox O2 Del Method O2 Flow Rate 98.3 F 85 16 151/86 H 99 Nasal Cannula 2 10/17/25 09:38 10/17/25 10:23 10/17/25 10:23 10/17/25 09:38 10/17/25 09:38 10/17/25 09:46 10/17/25 09:46 Oxygen Flow Rate (L/min) 2 Oxygen Delivery Method Nasal Cannula Weight: 75.8 kg Body Mass Index (BMI) 26.2 Intake & Output: Intake and Output for Last 24 Hours 10/15/25 10/16/25 10/17/25 23:59 23:59 23:59 Intake Total 798.59 / 798.59 0 / 0 Output Total 150 / 150 Balance 648.59 / 648.59 0 / 0 Lab / Micro Data 10/17/25 05:33 10/17/25 05:33 Labs: Laboratory Results - last 24 hr 10/16/25 12:30: WBC 8.1, RBC 4.42 L, Hgb 16.0, Hct 45.1, MCV 102.0 H, MCH 36.2 H, MCHC 35.5, RDW Std Deviation 54.1 H, RDW Coeff of Lisa 14.2, Plt Count 187, MPV 9.3, Immature Gran % (Auto) 0.400, Neut % (Auto) 79.4 H, Lymph % (Auto) 12.0 L, [place] % (Auto) 7.9, Eos % (Auto) 0.1, Baso % (Auto) 0.2, Absolute Neuts (auto) 6.4, Absolute Lymphs (auto) 0.97, Nucleated RBC % 0, D-Dimer Quant (PE/DVT) 5.75 H*, Sodium 141, Potassium 3.8, Chloride 101, Carbon Dioxide 28.8, Anion Gap 11, BUN 17, Creatinine 0.85, Estim Creat Clear Calc 74.52, Est GFR (MDRD) Non-Af 93, BUN/Creatinine Ratio 19.9, Glucose 149 H, Lactic Acid 2.4 H*, Calcium 9.1, Troponin T High Sens 31 H, NT pro BNP II 833 10/16/25 14:40: PT 13.4, INR 1.0, APTT 23.5 L, Troponin T Hi Sens 2 Hr 28 H 10/16/25 16:49: Lactic Acid 1.5 10/16/25 20:57: APTT 136.0 H* 10/17/25 05:33: WBC 6.0, RBC 3.89 L, Hgb 13.4, Hct 39.6 L, MCV 101.8 H, MCH 34.4 H, MCHC 33.8, RDW Std Deviation 52.9 H, RDW Coeff of Lisa 14.1, Plt Count 188, MPV 9.7, Immature Gran % (Auto) 0.700, Neut % (Auto) 81.7 H, Lymph % (Auto) 8.5 L, [place] % (Auto) 9.1, Eos % (Auto) 0.0, Baso % (Auto) 0.0, Absolute Neuts (auto) 4.9, Absolute Lymphs (auto) 0.51 L, Nucleated RBC % 0, Sodium 140, Potassium 3.8, Chloride 102, Carbon Dioxide 30.0, Anion Gap 8, BUN 20 H, Creatinine 0.84, Estim Creat Clear Calc 75.41, Est GFR (MDRD) Non-Af 93, BUN/Creatinine Ratio 24.3 H, Glucose 146 H, Calcium 9.2 Micro: Microbiology 10/16/25 12:30 Mucosa - Nose SARS-CoV-2, Influenza & RSV (PCR) - Final ABG Data ABG results: ABG 10/16/25 13:03 Specimen Type IRENE Sample Site Not entered VBG pH 7.41 VBG pO2 35 VBG HCO3 33 H VBG Total CO2 35 H VBG O2 Sat (Calc) 66 VBG Base Excess 9 H POC Mix VBG pCO2 Pt Tmp 53.3 H O2 Delivery Device Not entered Radiography Diagnostic Testing: Radiology Impression Chest X-Ray 10/16/25 12:40 IMPRESSION: No acute process in the chest Reading Location: [id number] Chest CTA 10/16/25 13:30 IMPRESSION: 1. Interval progression of bilateral PEs, now with saddle emboli and involvement of all lobes. Moderate clot burden (previously minimal). Signs of right heart strain. These findings were discussed with Dr. Boyd on 10/16/2025 at 11:12 a.m. [place] standard time. 2. Mild centrilobular emphysema. Reading Location: [facility] Patient's Goals Of Care - F/U Goals Reviewed Goals of care reviewed with patient: NA-No significant change in clinical Status /major procedure scheduled Physical Exam Const alert, oriented x3, no apparent distress and average body habitus Constitutional Narrative: Elderly male, mildly fatigued appearing, otherwise sitting back comfortably in bed, conversing normally, in no acute distress. General Appearance: cooperative and comfortable HEENT normocephalic, head/scalp atraumatic, hearing grossly normal bilaterally, nasal mucous membranes and turbinates normal and moist oral mucous membranes Eyes PERRL, EOMs intact bilaterally and conjunctivae normal Neck full ROM Chest inspection of chest normal Resp normal respiratory effort and no use of accessory muscles Resp Narrative: Breathing comfortably on 2 L nasal cannula at rest. Mild crackles noted noted in bilateral lung bases and mildly diminished breath sounds throughout. No wheezing noted. Cardio regular rate, regular rhythm, no murmurs and peripheral pulses 2+ throughout GI normal to inspection, nondistended, normoactive bowel sounds, soft to palpation, non-tender and non-distended Back/Spine normal ROM Extremity normal to inspection, full ROM and no pedal edema Skin no rashes or lesions noted Psych mental status grossly normal Assessment & Plan Assessment/Plan (1) Pulmonary embolism: PLAN: Plan Patient is a 70-year-old male who presented to [facility] ED on 10/16/2025 with shortness of breath. 1. Acute hypoxia in setting of COPD with chronic hypoxic respiratory failure secondary to acute PE ? Follows with Dr. Orellana with pulmonology, on home 2 L nasal cannula continuously. Saw Dr. Orellana in the office on morning of admission for shortness of breath and was found to have oxygen saturation in the low to mid 80s on home 2 L so he was sent to the ED for further evaluation. CTA chest showed bilateral PE with moderate clot burden and saddle emboli with involvement of all lobes as well as signs of right heart strain. Echo and lower extremity duplex ultrasound ordered. Aggressive surgery evaluated on 10/17 and noted that clot burden is fairly minimal in the main pulmonary arteries and given normal BNP, low troponins and low oxygen requirement, no need for intervention at this time. Will continue therapeutic Lovenox twice daily. Wean supplemental oxygen as able. 2. History of CAD with CABG and extensive stenting, hypertension, hyperlipidemia ? Follows with [place] [facility]. Mildly hypertensive to the 140s to 150s on admission. Continue home Lopressor, losartan, nitrate and statin. Given recent literature, will plan to discontinue clopidogrel on discharge with patient being initiated on full anticoagulation as above. 3. Tobacco dependence ? Nicotine replacement therapy available as needed. Discussed cessation on discharge. DVT prophylaxis: Not indicated, on therapeutic Lovenox CODE STATUS: Full code, verified Expected disposition: Home, 1 to 2 days Total clinical time spent by myself addressing the patient's medical issues, reviewing all the data, and collaborating with patient's care team: 40 minutes. Charges/Coding Visit Charges Inpatient E&M: 63095 Subs Hosp L2
--- NOTE | 2025-10-17 11:06 | VDLE_ITS ---
Reason For Study Reason For Study: PE RIGHT LEFT GSV is normal. GSV is normal. CFV is compressible, spontaneous, phasic, competent CFV is compressible, spontaneous, phasic, competent, and demonstrates normal augmentation. and demonstrates normal augmentation. FV is compressible, spontaneous, phasic, competent and FV is compressible, spontaneous, phasic, competent demonstrates normal augmentation. and demonstrates normal augmentation. POP V is compressible, spontaneous, phasic, competent POP V is compressible, spontaneous, phasic, competent and demonstrates normal augmentation. and demonstrates normal augmentation. T/P Trunk is compressible. T/P Trunk is compressible. PTV is compressible. PTV is compressible. Acute deep vein thrombosis is noted in the Per V. It LT PerV is compressible. is dilated and NONCOMPRESSIBLE. Procedure This is a venous duplex using B-mode, color flow and spectral Doppler. Exam performed portable in patient room. The exam was diagnostic. A preliminary report was called and/or faxed to Dodie - PCU clinical biostatistician. VL/Venous Duplex US - Enzo Extrem Interpretation Summary Acute deep vein thrombosis is noted in the right peroneal vein. The remainder o f the right lower extremity deep venous system is patent and compressible. Deep veins of the left lower extremity are p atent and compressible segmentally. There is no evidence of left lower extremity deep vein thrombosis. Valvular competenc e appears intact within the proximal deep venous systems bilaterally. The great saphenous veins appear bilaterally patent and compressible segmentally. Ordering Physician: Vicente Andrews Referring Physician: George Vázquez M.D. Performed By: Joel Mason RVT
--- NOTE | 2025-10-17 12:03 | CON.PCM.SX_ITS ---
Assessment & Plan Assessment/Plan (1) Pulmonary embolism: PLAN: Plan Reviewed CTA images; he has relatively minor clot burden in the main pulmonary arteries. His troponin was very mildly elevated, BNP normal. O2 requirement is low and he is hemodynamically stable. With small amount of clot burden that would be able to be removed, unlikely to see significant benefit from thrombectomy. Recommend continued management with anticoagulation alone. Possible mild provocation from somewhat recent pneumonia, but would still recommend ensuring up to date on cancer screenings and would recommend minimum of 6 months of anticoagulation. May follow-up outpatient at d/c. HPI Consult Data Date of Consult: 10/17/25 HPI Narrative HPI Narrative: RAISA SMILEY, is a 70 M who presented to the [facility] ER on 10/16/25 with chief complaint of SOB. He reports that he'd had SOB for about 5 days and then it got much worse yesterday leading him to return to the ER. CTA Chest demonstrated bilateral PE. He was admitted on heparin drip for further evaluation and management. We are consulted for consideration of pulmonary thrombectomy. Troponin was 33. BNP within normal range. He is on 2 lpm O2 via NC. He has been normotensive. Echo pending. He reports feeling a little better this morning compared to yesterday. He reports only SOB, denies chest pain/heaviness, palpitations. He denies any history of prior DVT/PE. He has not noticed any increased lower extremity redness, swelling, or pain. He reports his ankles are both a bit swollen but have been for years. He denies any personal or family history of clotting disorders. He reports that he did have pneumonia about 1 month ago, was in the hospital for 9 days and had some decreased activity with that. [facility] Medical History Essential hypertension Alcohol use History of steroid therapy Arthritis High cholesterol Smoker On home oxygen therapy COPD (chronic obstructive pulmonary disease) Shortness of breath on exertion History of pain when walking Hypertension History of echocardiogram History of stress test Cardiology follow-up encounter [place] Nodule of lower lobe of left lung Perforated diverticulum of large intestine Presence of stent in coronary artery (~11/12/21) Easy bruising Excessive bleeding History of ulceration Gastric reflux History of diverticulitis Chronic bronchitis Nicotine dependence Osteoarthritis DDD (degenerative disc disease), lumbar Atherosclerosis of coronary artery of [place] heart without angina pectoris Atherosclerosis of coronary artery bypass graft without angina pectoris Hyperlipidemia Home Medications ?Medication ?Instructions ?Recorded ?Last Taken ?Type clopidogrel 75 mg tablet (Plavix) 75 mg PO DAILY anti platelet #90 10/04/21 11/26/22 Rx tabs budesonide-formoterol HFA 160 2 puff inhalation BID #3 ea 07/30/24 Unknown Rx mcg-4.5 mcg/actuation aerosol inhaler (Symbicort) isosorbide mononitrate 30 mg 30 mg PO DAILY heart #90 TABLETS 09/09/24 Unknown Rx tablet,extended release 24 hr metoprolol tartrate 50 mg tablet 50 mg PO BID heart ra te/BP #180 11/05/24 Unknown Rx tabs losartan 50 mg tablet 50 mg PO QPM BP #30 tabs 10/23 Unknown Rx rosuvastatin 40 mg tablet 40 mg PO QHS cholesterol #90 tabs 07/14/25 Unknown Rx OXYGEN - Supplemental ([facility] 09/05/25 Unknown History INFORMATIONAL USE ONLY) albuterol sulfate 0.63 mg/3 mL 0.63 mg inhalation TID PRN 10/16/25 Unknown History solution for nebulization shortness of breath or wheez ing Allergy/AdvReac Type Severity Reaction Status Date / Time levofloxacin (From Levaquin) AdvReac Severe tendonitis Verified 10/16/25 12:07 Family History Father CAD (coronary artery disease) Brother Hypertension Grandfather Pancreatic cancer Grandmother Heart disease Surgical History History of laparoscopic cholecystectomy S/P laparoscopic cholecystectomy Status post double vessel coronary artery bypass Presence of coronary angioplasty implant and graft (~09/29/21) Hx of left cataract extraction Hx of right cataract extraction History of cardiac catheterization History of colectomy S/p bilateral carpal tunnel release H/O coronary artery bypass surgery (10/14/96) History of left knee replacement History of appendectomy History of tonsillectomy History of partial colectomy Social History Smoking Status: Current every day smoker tobacco type: cigarettes alcohol intake: current alcohol intake frequency: 0-2 drinks per day substance use type: does not use caffeine: Yes Type: coffee Number of servings: 2 what type of physical activity do you participate in: none seatbelt use: always do you feel safe at home: Yes Physical Exam Const alert, oriented x3 and no apparent distress General Appearance: cooperative HEENT normocephalic and head/scalp atraumatic Eyes General Eye: normal appearance of both eyes Neck General: normal visual inspection Resp normal respiratory effort and no retractions Resp Narrative: conversing normally, no apparent SOB in conversation Effort and Inspection: able to speak in complete sentences Cardio Rate: regular rate Rhythm: regular rhythm Extremity no calf tenderness Extremity Narrative: trace edema bilaterally Skin no rashes or lesions noted Psych mental status grossly normal Appearance: grossly normal Lab / Micro Data 10/17/25 05:33 10/17/25 05:33 Labs: Laboratory Results - last 24 hr 10/16/25 12:30: WBC 8.1, RBC 4.42 L, Hgb 16.0, Hct 45.1, MCV 102.0 H, MCH 36.2 H , MCHC 35.5, RDW Std Deviation 54.1 H, RDW Coeff of Lisa 14.2, Plt Count 187, MPV 9.3, Immature Gran % (Auto) 0.400, Neut % (Auto) 79.4 H, Lymph % (Auto) 12.0 L, [place] % (Auto) 7.9, Eos % (Auto) 0.1, Baso % (Auto) 0.2, Absolute Neuts (auto) 6.4, Absolute Lymphs (auto) 0.97, Nucleated RBC % 0, D-Dimer Quant (PE/DVT) 5.75 H*, Sodium 141, Potassium 3.8, Chloride 101, Carbon Dioxide 28.8, Anion Gap 11, BUN 17, Creatinine 0.85, Estim Creat Clear Calc 74.52, Est GFR (MDRD) Non-Af 93, BUN/Creatinine Ratio 19.9, Glucose 149 H, Lactic Acid 2.4 H*, Calcium 9.1, T roponin T High Sens 31 H, NT pro BNP II 833 10/16/25 14:40: PT 13.4, INR 1.0, APTT 23.5 L, Troponin T Hi Sens 2 Hr 28 H 10/16/25 16:49: Lactic Acid 1.5 10/16/25 20:57: APTT 136.0 H* 10/17/25 05:33: WBC 6.0, RBC 3.89 L, Hgb 13.4, Hct 39.6 L, MCV 101.8 H, MCH 34.4 H, MCHC 33.8, RDW Std Deviation 52.9 H, RDW Coeff of Lisa 14.1, Plt Count 188, MPV 9.7, Immature Gran % (Auto) 0.700, Neut % (Auto) 81.7 H, Lymph % (Auto) 8.5 L, [place] % (Auto) 9.1, Eos % (Auto) 0.0, Baso % (Auto) 0.0, Absolute Neuts (auto) 4.9, Absolute Lymphs (auto) 0.51 L, Nucleated RBC % 0, Sodium 140, Potassium 3.8, Chloride 102, Carbon Dioxide 30.0, Anion Gap 8, BUN 20 H, Creatinine 0.84, Estim Creat Clear Calc 75.41, Est GFR (MDRD) Non-Af 93, BUN/Creatinine Ratio 24.3 H, Glucose 146 H, Calcium 9.2 Micro: Microbiology 10/16/25 12:30 Mucosa - Nose SARS-CoV-2, Influenza & RSV (PCR) - Final ABG Data ABG results: ABG 10/16/25 13:03 Specimen Type IRENE Sample Site Not entered VBG pH 7.41 VBG pO2 35 VBG HCO3 33 H VBG Total CO2 35 H VBG O2 Sat (Calc) 66 VBG Base Excess 9 H POC Mix VBG pCO2 Pt Tmp 53.3 H O2 Delivery Device Not entered Imaging Radiology Impression Chest X-Ray 10/16/25 12:40 IMPRESSION: No acute process in the chest Reading Location: [facility] Chest CTA 10/16/25 13:30 IMPRESSION: 1. Interval progression of bilateral PEs, now with saddle emboli and involvement of all lobes. Moderate clot burden (previously minimal). Signs of right heart strain. These findings were discussed with Dr. Boyd on 10/16/2025 at 11:12 a.m. [place] standard time. 2. Mild centrilobular emphysema. Reading Location: [facility] Charges/Coding Visit Charges Inpatient E&M: 05392 Init Hosp L1
[2025-10-17] MEDS: 0.9% Saline Lock 10 ML Syringe IV ×2 (18:20→23:07)
[2025-10-17] MEDS: Ensure Plus High Protein 120 ML LIQUID PO (18:20)
--- NOTE | 2025-10-17 22:51 | PCM.HOSP.N ---
Hospitalist Note Ipratropium not effective for SOB/wheezing. Pt asking for steroids, RT asking to try albuterol. Pt also c/o heartburn and requests Tums. I ordered methylprednisolone 40mg IV q12h, albuterol INH q4h PRN, Tums q6h PRN.
[2025-10-17] MEDS: Albuterol 2.5 MG/3 ML VIAL.NEB. INHALATION (22:55)
[2025-10-17] MEDS: MELATONIN 10 MG TABLET PO (23:06)
[2025-10-18] VITALS (12 sets, daily range): BP systolic 116–163; BP diastolic 72–88; PULSE 63–90; RESP 16–22; TEMP 36.1–36.8; O2SAT 87–100
[2025-10-18 06:34] LABS: Hematocrit 38.7 % (40-54); Hemoglobin 13.0 g/dL (13.0-16.5); Mean Corp Hgb Conc 33.6 g/dL (32-36); Mean Corpuscular Volume 104.0 fL (80-94); Mean Platelet Vol. 9.6 fl (6.2-12.0); Platelet Count 177 K/mm3 (150-450); RBC Distribution Width CV 14.3 % (11.6-14.6); RBC Distribution Width SD 54.6 fl (35.1-43.9); Red Blood Count 3.72 M/mm3 (4.6-6.2); White Blood Count 6.6 K/mm3 (4.4-11.0)
[2025-10-18 06:58] LABS: Anion Gap 8 (5-15); BUN 21 mg/dL (4-19); BUN/Creat Ratio 23.0 RATIO (10-20); Calcium,Total 9.4 mg/dL (7.6-11.0); Carbon Dioxide 30.3 mmol/L (21.0-32.0); Chloride 101 mmol/L (98-108); Estimated Creatinine Clearance 69.61 ml/min (50-250); Glucose 164 mg/dL (70-99); Potassium 4.3 mmol/L (3.3-5.1)
[2025-10-18] MEDS: Ipratropium 0.5 MG/2.5 ML SOLUTION INHALATION ×4 (07:09→19:52)
[2025-10-18] MEDS: APIXABAN 5 MG TABLET 10 MG PO ×2 (09:47→21:16)
--- NOTE | 2025-10-18 10:20 | PCM.PN.HOSP ---
Reason for Visit Chief Complaint: SOB Subjective Subjective Saw patient at bedside this morning. Patient was sitting in bedside chair fairly comfortably, conversing normally, in no acute distress. He did have an episode late yesterday evening where he became short of breath and wheezy, and this improved with a breathing treatment. Episode seems most consistent with acute bronchospasm. This morning he is breathing comfortably on 2 L at rest and has good air movement bilaterally with no wheezing noted. He did complete an O2 ambulatory test and required 3 L with exertion, and he notes feeling better than the last few days with exertion but still quite short of breath. No other new concerns today. Objective Data Objective Data Vital Signs: Vital Signs Temp Pulse Resp BP Pulse Ox O2 Del Method O2 Flow Rate 98.3 F 80 20 H 163/88 H 97 Nasal Cannula 3 10/18/25 09:51 10/18/25 09:51 10/18/25 09:51 10/18/25 09:51 10/18/25 09:51 10/18/25 09:51 10/18/25 09:51 Oxygen Flow Rate (L/min) 3 Oxygen Delivery Method Nasal Cannula Weight: 75.8 kg Body Mass Index (BMI) 26.2 Intake & Output: Intake and Output for Last 24 Hours 10/16/25 10/17/25 10/18/25 23:59 23:59 23:59 Intake Total 798.59 / 798.59 0 / 120 220 / 220 Output Total 150 / 150 550 / 900 500 / 500 Balance 648.59 / 648.59 -550 / -780 -280 / -280 Lab / Micro Data 10/18/25 05:59 10/18/25 05:59 Labs: Laboratory Results - last 24 hr 10/18/25 05:59: WBC 6.6, RBC 3.72 L, Hgb 13.0, Hct 38.7 L, MCV 104.0 H, MCH 34.9 H, MCHC 33.6, RDW Std Deviation 54.6 H, RDW Coeff of Lisa 14.3, Plt Count 177, MPV 9.6, Sodium 139, Potassium 4.3, Chloride 101, Carbon Dioxide 30.3, Anion Gap 8, BUN 21 H, Creatinine 0.91, Estim Creat Clear Calc 69.61, Est GFR (MDRD) Non-Af 90, BUN/Creatinine Ratio 23.0 H, Glucose 164 H, Calcium 9.4 Micro: Microbiology 10/16/25 12:30 Mucosa - Nose SARS-CoV-2, Influenza & RSV (PCR) - Final Radiography Diagnostic Testing: Radiology Impression Venous Doppler Study 10/17/25 11:06 Interpretation Summary Acute deep vein thrombosis is noted in the right peroneal vein. The remainder of the right lower extremity deep venous system is patent and compressible. Deep veins of the left lower extremity are patent and compressible segmentally. There is no evidence of left lower extremity deep vein thrombosis. Valvular competence appears intact within the proximal deep venous systems bilaterally. The great saphenous veins appear bilaterally patent and compressible segmentally. Ordering Physician: Vicente Andrews Referring Physician: George Vázquez M.D. Performed By: Joel Mason RVT Patient's Goals Of Care - F/U Goals Reviewed Goals of care reviewed with patient: NA-No significant change in clinical Status /major procedure scheduled Physical Exam Const alert, oriented x3, no apparent distress and average body habitus Constitutional Narrative: Elderly male, mildly fatigued appearing, otherwise sitting back comfortably in bedside chair, conversing normally, in no acute distress. General Appearance: cooperative and comfortable HEENT normocephalic, head/scalp atraumatic, hearing grossly normal bilaterally, nasal mucous membranes and turbinates normal and moist oral mucous membranes Eyes PERRL, EOMs intact bilaterally and conjunctivae normal Neck full ROM Chest inspection of chest normal Resp normal respiratory effort and no use of accessory muscles Resp Narrative: Breathing comfortably on 2 L nasal cannula at rest. Mild crackles noted noted in bilateral lung bases and mildly diminished breath sounds throughout. No wheezing noted. Stable. Cardio regular rate, regular rhythm, no murmurs and peripheral pulses 2+ throughout GI normal to inspection, nondistended, normoactive bowel sounds, soft to palpation, non-tender and non-distended Back/Spine normal ROM Extremity normal to inspection, full ROM and no pedal edema Skin no rashes or lesions noted Psych mental status grossly normal Assessment & Plan Assessment/Plan (1) Pulmonary embolism: PLAN: Plan Patient is a 70-year-old male who presented to [facility] ED on 10/16/2025 with shortness of breath. 1. Acute hypoxia in setting of COPD with chronic hypoxic respiratory failure secondary to acute PE/DVT ? Follows with Dr. Orellana with pulmonology, on home 2 L nasal cannula continuously. Saw Dr. Orellana in the office on morning of admission for shortness of breath and was found to have oxygen saturation in the low to mid 80s on home 2 L so he was sent to the ED for further evaluation. CTA chest showed bilateral PE with moderate clot burden and saddle emboli with involvement of all lobes as well as signs of right heart strain. Venous Doppler study with acute DVT only in the right peroneal vein. Echo completed, read pending. Vascular surgery evaluated on 10/17 and noted that clot burden is fairly minimal in the main pulmonary arteries and given normal BNP, low troponins and low oxygen requirement, no need for intervention at this time. O2 ambulatory test completed on 10/18 and patient requiring 3 L with exertion, but he does continue to have fairly significant dyspnea with exertion. Okay to transition to p.o. Eliquis on 10/18. Will plan to repeat O2 ambulatory test tomorrow in preparation for possible discharge home. 2. History of CAD with CABG and extensive stenting, hypertension, hyperlipidemia ? Follows with [place] [facility]. Mildly hypertensive to the 140s to 150s on admission. Continue home Lopressor, losartan, nitrate and statin. Given recent literature, will plan to discontinue clopidogrel on discharge with patient being initiated on full anticoagulation as above. 3. Tobacco dependence ? Nicotine replacement therapy available as needed. Discussed cessation on discharge. DVT prophylaxis: Not indicated, on Eliquis CODE STATUS: Full code, verified Expected disposition: Home, 1 to 2 days Total clinical time spent by myself addressing the patient's medical issues, reviewing all the data, and collaborating with patient's care team: 38 minutes. Charges/Coding Visit Charges Inpatient E&M: 97745 Subs Hosp L2
--- NOTE | 2025-10-18 13:20 | CASEMGMT ---
TOMMIE CM into pt room, pt provided with [employer] care with explanation provided. Pt denies any questions regarding this. Plan for pt to dc tomorrow per hospitalist.
[2025-10-18] MEDS: Albuterol 2.5 MG/3 ML VIAL.NEB. INHALATION (19:52)
[2025-10-18] MEDS: MELATONIN 10 MG TABLET PO (21:23)
[2025-10-19] VITALS (7 sets, daily range): BP systolic 128–139; BP diastolic 84–91; PULSE 67–86; RESP 16–18; TEMP 36.6–36.7; O2SAT 90–99
[2025-10-19] MEDS: Ipratropium 0.5 MG/2.5 ML SOLUTION INHALATION ×2 (07:19→11:07)
--- NOTE | 2025-10-19 09:56 | PCM.DC.SUM ---
Providers Date of Admission: 10/16/25 Date of Discharge: 10/19/25 Primary Care Physician: Dr. George Vázquez MD Consultations 10/17/25 11:06 Consult: Vascular Surgery Routine Consulting Provider: Salvador Kwok Reason for Consult: saddle PE w/ right heart strain EMERGENT Consult: No MD Notified: Yes Date Notified: 10/17/25 Time Notified: 11:35 Method of Notification: Text Reason For Visit: PE Diagnosis Discharge Diagnosis (1) Pulmonary embolism: Status: Acute Code(s): I26.99 - Other pulmonary embolism without acute cor pulmonale Medications at Discharge Home Medications budesonide-formoterol HFA 160 mcg-4.5 mcg/actuation aerosol inhaler (Symbicort) 2 puff inhalation BID #3 ea 07/30/24 isosorbide mononitrate 30 mg tablet,extended release 24 hr 30 mg PO DAILY heart #90 TABLETS 09/09/24 metoprolol tartrate 50 mg tablet 50 mg PO BID heart rate/BP #180 tabs 11/05/24 losartan 50 mg tablet 50 mg PO QPM BP #30 tabs 01/08/25 rosuvastatin 40 mg tablet 40 mg PO QHS cholesterol #90 tabs 07/14/25 OXYGEN - Supplemental ([facility] INFORMATIONAL USE ONLY) 09/05/25 albuterol sulfate 0.63 mg/3 mL solution for nebulization 0.63 mg inhalation TID PRN shortness of breath or wheezing 10/16/25 apixaban 5 mg (74 tabs) tablets in a dose pack (Eliquis DVT-PE Treat 30D Start) See Rx Instructions PO .COMPLEX 30 days #74 tabs 10/19/25 Hospital Course Operations None Procedures EKG, Transthoracic echo and - (Chest x-ray, CTA chest, venous Doppler study) Summary of Care Provided Minutes Spent on Discharge: 38 Hospital Course: Patient is a 70-year-old male who presented to [facility] ED on 10/16/2025 with shortness of breath. Hospital course as noted below. Patient discharged home in stable condition on 10/19. 1. Acute hypoxia in setting of COPD with chronic hypoxic respiratory failure secondary to acute PE/DVT ? Follows with Dr. Orellana with pulmonology, on home 2 L nasal cannula continuously. Saw Dr. Orellana in the office on morning of admission for shortness of breath and was found to have oxygen saturation in the low to mid 80s on home 2 L so he was sent to the ED for further evaluation. CTA chest showed bilateral PE with moderate clot burden and saddle emboli with involvement of all lobes as well as signs of right heart strain. Venous Doppler study with acute DVT only in the right peroneal vein. Echo completed and per cardiology showed normal EF with no other concerning findings, but formal read is pending on discharge. Vascular surgery evaluated on 10/17 and noted that clot burden is fairly minimal in the main pulmonary arteries and given normal BNP, low troponins and low oxygen requirement, no need for intervention at this time. Completed O2 ambulatory testing on day of discharge and did not require more than his home continuous 2 L of oxygen. Will treat with Eliquis on discharge. Recommend close outpatient follow-up with pulmonology and repeat CT imaging in about 3 months to ensure PE has resolved. 2. History of CAD with CABG and extensive stenting, hypertension, hyperlipidemia ? Follows with [place] [facility]. Mildly hypertensive to the 140s to 150s on admission. Continue home Lopressor, losartan, nitrate and statin. Given recent literature, discontinued Plavix on discharge with patient being initiated on full anticoagulation as above. 3. Tobacco dependence ? Denied need for NRT while inpatient. Discussed cessation on discharge. Total clinical time spent by myself addressing the patient's medical issues, reviewing all the data, and collaborating with patient's care team: 38 minutes. Physical Exam Const alert, oriented x3, no apparent distress and average body habitus Constitutional Narrative: Elderly male, energy improved from admission, otherwise sitting back comfortably in bedside chair, conversing normally, in no acute distress. General Appearance: cooperative and comfortable HEENT normocephalic, head/scalp atraumatic, hearing grossly normal bilaterally, nasal mucous membranes and turbinates normal and moist oral mucous membranes Eyes PERRL, EOMs intact bilaterally and conjunctivae normal Neck full ROM Chest inspection of chest normal Resp normal respiratory effort and no use of accessory muscles Resp Narrative: Breathing comfortably on 2 L nasal cannula at rest. Mildly diminished breath sounds throughout but no wheezing or crackles noted, improved from admission. Cardio regular rate, regular rhythm, no murmurs and peripheral pulses 2+ throughout GI normal to inspection, nondistended, normoactive bowel sounds, soft to palpation, non-tender and non-distended Back/Spine normal ROM Extremity normal to inspection, full ROM and no pedal edema Skin no rashes or lesions noted Psych mental status grossly normal Weight / BMI Weight Weight: 75.8 kg Body Mass Index (BMI) 26.2 ABG / Lab / Microbiology Data 10/18/25 05:59 10/18/25 05:59 Microbiology: Microbiology 10/16/25 12:30 Mucosa - Nose SARS-CoV-2, Influenza & RSV (PCR) - Final D/C Instructions DC O2, CPAP, BIPAP Needs Home O2 Discharge instructions: No Patient's Goals Of Care - F/U Goals Reviewed Goals of care reviewed with patient: NA-No significant change in clinical Status /major procedure scheduled Meaningful Use Info Meaningful Use Meaningful Use Diagnoses (Choose all that apply): VTE VTE Anticoag overlap given w/in hospital stay or rx'd at dc?: Yes Pt receive overlap for 5 days?: Yes Discharge Plan Admission Admit Date/Time: 10/16/25 14:54 Primary Reason for Your Visit: Shortness of breath Attending Provider: Vicente Andrews Primary Care Provider: George Vázquez Consulting Providers: Alyssa Phillips; Salvador Kwok Instructions Additional Instructions / Restrictions: ? Take Eliquis 10 mg (2 tablets) twice daily for the next 4 days, then take Eliquis 5 mg (1 tablet) twice daily moving forward. You have taken 3 days of the higher dose here and do not need a full 7 days of the higher dose as the pack instructions state. ? Stop taking Plavix, since you are now taking Eliquis as above. ? Continue your home oxygen as before. ? Follow-up with pulmonology in the office in the next several weeks. You will need to have a repeat CT scan done in about 3 months to ensure that the blood clots in your lungs have resolved. Discharge Orders/Prescriptions Prescriptions: New Eliquis DVT-PE Treat 30D Start 5 mg (74 tabs) tablets,dose pack See Rx Instructions .ROUTE .COMPLEX 30 Days Qty: 74 0RF Rx Instructions: orally per package directions Continued budesonide-formoterol [Symbicort] 160-4.5 mcg/actuation HFA aerosol inhaler 2 puff inhalation BID Qty: 3 3RF Rx Instructions: administer with spacer, rinse mouth after each use metoprolol tartrate 50 mg tablet 50 mg PO BID Qty: 180 3RF losartan 50 mg tablet 50 mg PO QPM Qty: 30 11RF (DME) OXYGEN - Supplemental ([facility] INFORMATIONAL USE ONLY) Gas See Rx Instructions .ROUTE Patient Comments: 2L QHS Rx Instructions: As directed albuterol sulfate 0.63 mg/3 mL solution for nebulization 0.63 mg inhalation TID PRN (Reason: shortness of breath or wheezing) isosorbide mononitrate 30 mg tablet extended release 24 hr 30 mg PO DAILY Qty: 90 3RF rosuvastatin 40 mg tablet 40 mg PO QHS Qty: 90 3RF Discontinued clopidogrel [Plavix] 75 mg tablet 75 mg PO DAILY Qty: 90 4RF Referrals / Follow Up: Tevin Nelson DO [Med Staff - Active Staff, Pulmonary Medicine] George Vázquez MD [Primary Care Provider, Internal Medicine] Disposition Disposition (needs filled in before D/C Order can be placed): Home, Self Care Charges/Coding Visit Charges Inpatient E&M: 87354 Disch Hosp >30min
[2025-10-19] MEDS: APIXABAN 5 MG TABLET 10 MG PO (10:01)
== END 2025-10-19 13:12 | disposition home or self-care (01) | DRG 175 ==
LOC: ED 14:45 → PCU 16:47
PROVIDERS: Admitting Provider Internal Medicine; Emergency Provider Surgery; PCP Internal Medicine; Visit Provider Hospitalist
DX: I26.99 Other pulmonary embolism without acute cor pulmonale (principal); J96.21 Acute and chronic respiratory failure with hypoxia; I82.451 Acute embolism and thrombosis of right peroneal vein; I50.9 Heart failure, unspecified; Z99.81 Dependence on supplemental oxygen; J44.9 Chronic obstructive pulmonary disease, unspecified; I11.0 Hypertensive heart disease with heart failure; I25.10 Atherosclerotic heart disease of native coronary artery without angina pectoris; E78.00 Pure hypercholesterolemia, unspecified; F17.210 Nicotine dependence, cigarettes, uncomplicated; R12 Heartburn; Z95.5 Presence of coronary angioplasty implant and graft; Z79.51 Long term (current) use of inhaled steroids; Z79.899 Other long term (current) drug therapy; Z79.02 Long term (current) use of antithrombotics/antiplatelets; Z95.1 Presence of aortocoronary bypass graft; Z90.49 Acquired absence of other specified parts of digestive tract; Z98.41 Cataract extraction status, right eye; Z98.42 Cataract extraction status, left eye; Z96.652 Presence of left artificial knee joint
CPT/HCPCS: 36415; 71046; 71275; 80048; 82803; 83605; 83880; 84484; 85025; 85027; 85379; 85610; 85730; 87631; 92526; 92610; 93005; 93308; 93970; 94640; 94668; 97116; 97162; 97165; 97530; 97802; 99285; 99406; Q9967; A4216